=== PATIENT | female | born 1950 | race Caucasian/White ===

== ENCOUNTER → 2017-08-16 12:36 | Outpatient (CLI) | payer MEDICARE, OTHER, SELFPAY ==
--- NOTE | 2017-08-16 12:42 | RAD_ITS ---
STUDY: X-RAY - LEFT HAND REASON FOR EXAM: Female, 67 years old. Pain and swelling overlying the fourth and fifth metacarpals following an injury. TECHNIQUE: 3 view(s) of the hand. COMPARISON: None. FINDINGS: Normal radiocarpal articulation. Normal distal radioulnar joint. Normal visualized carpal bones. Normal carpal articulations Normal carpometacarpal articulation of the thumb. Normal second through fifth carpometacarpal joints. Normal metacarpi. Normal metacarpophalangeal joint of the thumb. Normal interphalangeal joint of the thumb. Normal proximal and distal phalanges of the thumb. Normal metacarpophalangeal joints of the second through fifth fingers. Normal proximal and distal interphalangeal joints of the second through fifth fingers. Normal phalanges of the second through fifth fingers. Diffuse soft tissue swelling. RAD/Hand Min 3 Views IMPRESSION: Diffuse soft tissue swelling. Electronically Signed: Bayron Payan MD at 13:43 EST Tel [phone], Service support ,
== END ==
PROVIDERS: Family Provider Internal Medicine; PCP Internal Medicine; Visit Provider Internal Medicine
DX: M79.642 Pain in left hand (principal)
CPT/HCPCS: 73130

== ENCOUNTER 2017-10-11 13:00 | Outpatient (RCR) | payer MEDICARE, OTHER, SELFPAY ==
--- NOTE | 2017-09-18 19:10 | HP.PTEVAL ---
Patient's Visit Information MANSOOR VERDUZCO is a 67 year old F referred to Physical Therapy by Rylee POZO with a diagnosis of . Date of Evaluation: 09/18/17 Physical Therapist: Martín Arteaga - Visit Plan Frequency: 2-3x /Week Duration: 4-6 Weeks Plan: Start with neutral spine core strengtheing, BLE strneghtening, complete balance assessment. Foam and dynamic balance activities. - Subjective Subjective: Pt. is here today for her initial evaluation with diagnosis of LBP and frequent falls. Pt. reports she has fallen 3 times in the last 2 months. Pt. reports she feels like she is catching her R foot causing her to fall. She reports increased difficulty when wearing a boot with a higher sole as well. She reports no injury with these recent falls. Pt. reports has increased pain in R side of lumbar spine, but does receive injections ~2 per year to reduce symptoms. Pt. had an injection in May. Pt. reports noticing R LE weakness, but does not appear to be worsening. Pt. is concerned about her falls as she feels it is getting worse and does not want to fall and break something.' Pt. reports having LBP for 40+ years and her symptoms have not changed mmuch recently, but is tripping more. Pt. denies N/T and no changes in B/B. Pt. is hopeful to increase stability and reduce LBP in order to get back to all recreational activities without issues. - Pain LBP Pain Intensity (Out of 10): 2 Pain Intensity Range: 0, 6 - Objective POSTURE: Pt. has slight FH posture, rounded shoulders, and reduced lumbar lordosis. Pt. normal iliac creast heights. Pt. has no lateral shift and normal wt. shifting between bilateral LEs. PALPATION: Pt. has mild increase in tenderness at R side lumbar erector spinea. Pt. has no pain at SI region and no L sided pain. NEUROLOGICAL: Pt. has normal sensation to light and sharp touch throughout bilateral LEs. Pt. has 2+ bilateral achilles and patellar DTR bilaterally. ROM: LUMBAR SPINE- flexion nil loss increase NW upon return, ext- mod loss increase NW, SB min loss bilat, rotation min loss bilat increase NW. Pt. has normal ankle mobility throughout, as well her knees. MMT: RLE- ankle- DF 4/5, PF 5/5; knee- ext 4+/5, flexion 4/5; hip- flexion 4/5, adb 4/5, ext 4/5. LLE- ankle 5/5 throughout; knee 5/5 throughout; hip- flexion 4+/5, adb 4+/5, ext 4+/5. GAIT: pt. ambulates with out AD, Pt. is able to maintain stability, decreased L foot clearance with gait. STAIRS: Pt. is able to negotiate with 1 HR with controlled motion with ascending and descending. - Special Tests L/S Slump test left side: Negative L/S Slump test right side: Negative L/S Left Straight Leg Raise: Negative L/S Right Straight Leg Raise: Negative Lumbar Standing: Flexion - Mechanical Response: No effect Lumbar Standing: Flexion - Symptoms During Testing: Increases Lumbar Standing: Flexion - Symptoms After Testing: No worse Lumbar Standing: Extension - Mechanical Response: No effect Lumbar Standing: Extension - Symptoms During Testing: Increases Lumbar Standing: Extension - Symptoms After Testing: Worse Lumbar Standing: Right Side Glides - Mechanical Response: No effect Lumbar Standing: Right Side [place] - Symptoms During Testing: No effect Lumbar Standing: Right Side [place] - Symptoms After Testing: No effect Lumbar Standing: Left Side [place] - Mechanical Response: No effect Lumbar Standing: Left Side [place] - Symptoms During Testing: No effect Lumbar Standing: Left Side [place] - Symptoms After Testing: No effect - Balance Scores Functional Gait Assessment Score: 20 % Disability: 33.3400 - Goals Goal 1:: Pt. to be I with HEP. Goal Time Frame: 4-6 Weeks Goal 2:: Pt. to have increased RLE strength and core strength to reduce stress on lumbar spine with all functional mobility. Goal Time Frame: 4-6 Weeks Goal 3:: Pt. to have a balance neurocom assessment completed. Goal Time Frame: 2 Weeks Goal 4:: Pt. to have increased FGA to 25/30 indicating reduced riskf or future falls. Goal 5:: Pt. to report 0-2/10 pain in R side of lumbar spine with all functional mobility. Goal Time Frame: 4-6 Weeks - Rehabilitation Potential Rehabilitation Potential: Good - Anticipated Interventions Patient/Client Instruction: Educate patient on: Condition, Plan of Care, Risk Factors, Benefits of Fitness Program For the Purpose of:: To improve health and function, To foster healthy habits, To improve decision making, To facilitate caregiver knowledge, To improve self management, To prevent re-injury, To improve ability to perform tasks related to life management, To improve tolerance to ADL's Therapeutic Exercise to Include: Strength training, Power training, Endurance training, Balance training, Body mechanics, Postural training, Gait and locomotor training, Neuromotor development, via Neurocom Balance Mas, Passive ROM, Active ROM, Dynamic Lumbar Stabilization For the Purpose of:: To decrease pain, To increase ROM, To improve nutrient delivery to tissue, To increase oxygenation perfusion, To improve muscle performance and motor function, To improve ability to perform ADL's, To increase tolerance to activity/condition/position, To improve performance and independence with ADL's, To improve gait and locomotor functions, To improve health of tissue, To increase flexibility/ROM, To improve endurance, To improve balance, To improve safety with gait, To assume or resume ADL's Thank you for the opportunity to evaluate your patient. For Medicare and Medicare HMO plans, please review the plan of care and approve it. It will need to be FAXED BACK to us at [phone] for Medicare purposes. Please let me know if there are questions or concerns regarding this plan of care. Physician Signature: Date:
--- NOTE | 2017-09-23 13:53 | HP.PTCOM ---
PT Communication Note 09/23/[address] Rylee POZO, Thank you for the referral of Susanne Torres to our clinic. She was tested on our NeuroCom today and below are her test results. On the Sensory Organization Test the patients overall score was below normal. She had some trouble with her visual and vestibular inputs She was more ankle dominant than hip dominant. Her COG alignment was within normal ranges. Her overall reaction time was within the normal range on the Motor Control Test The patient had some trouble with weight shifting forward and to the Left At this point we will work with the pt on vestibular and visual inputs along with weight shifts fw and to the L. We will also work on core stability and LE strengthening. Sincerely, Tatiana Wagner Contact Information
--- NOTE | 2017-10-16 09:57 | HP.PTDCSUM ---
HP - PT D/C Summary It has been my pleasure to treat MANSOOR VERDUZCO under orders from DR.KFEARO Leslie for the diagnosis of for a total of 10 visit(s). Discharge Date: 10/11/17 Please see the following information for a summary of their discharge status. - Subjective Subjective: Pt. reports I am doing a lot better. Pt. reports being HEP compliant. Pt. reports being 95% better. Pt. reports no falls since starting PT. - Pain LBP Pain Intensity (Out of 10): 0 neck Pain Intensity (Out of 10): 0 - Objective Objective/Function: Pt. has improved FGA to 27/30 reduce risk for future falls. Pt. reports overall reduced low back and neck pain. Pt. has improved stability noted with all dynamic balance testing. Pt. had a TUG of 6.07sec without AD. She is neogitiating steps without HR wtih reciprocal patterns. Pt. is pleased with PT. She will be DC to HEP at this point intime. - Goals Goal 1:: Pt. to be I with HEP. Goal Progress: Goal Met Goal 2:: Pt. to have increased RLE strength and core strength to reduce stress on lumbar spine with all functional mobility. Goal Progress: Goal Met Goal 3:: Pt. to have a balance neurocom assessment completed. Goal Progress: Goal Met Goal 4:: Pt. to have increased FGA to 25/30 indicating reduced riskf or future falls. Goal Progress: Goal Met Goal 5:: Pt. to report 0-2/10 pain in R side of lumbar spine with all functional mobility. Goal Progress: Goal Met - Plan Plan: Pt. will be DC to HEP at this point in time. Pt. has progressed very well with PT. Pt. to focus on balance related exercises for HEP, pt. consents. - D/C Information Discharge Comments: Pt. will be DC from PT at this point in time. Pt. has progressed as expected. Pt. had iimproved FGA and no falls recently. Pt. has proper balance activites to progress at home. Pt. has overall increased stability. Pt. did have Neurocom testing completed that was able to help with focusing on target areas for balance. Pt. will be DC to physician at this point in time. If there are questions or concerns regarding this patient's physical therapy, please feel free to call me at [phone]. Thank you for the referral of this patient. Sincerely, Martín Arteaga
== END 2017-10-11 19:00 | disposition home or self-care (01) ==
LOC: PT 13:00
PROVIDERS: Family Provider Internal Medicine; PCP Internal Medicine; Visit Provider Internal Medicine
DX: M54.5 Low back pain (principal); R29.6 Repeated falls
CPT/HCPCS: 97110; 97162; 97530; 97750; G8978; G8980

== ENCOUNTER → 2018-01-08 07:10 | Outpatient (CLI) | payer MEDICARE, OTHER, SELFPAY ==
[2018-01-08 07:57] LABS: Hematocrit 41.6 % (37-47); Hemoglobin 13.2 g/dl (12.0-15.0); Mean Corp Hgb Conc 31.7 g/gl (32-36); Mean Corpuscular Hgb 29.2 pg (27.0-32.0); Mean Platelet Vol. 9.5 fl (6.2-12.0); Platelet Count 237 K/mm3 (150-450); RBC Distribution Width CV 13.2 % (11.6-14.6); RBC Distribution Width SD 44.1 fl (35.1-43.9); Red Blood Count 4.52 M/mm3 (4.2-5.4); White Blood Count 4.3 K/mm3 (4.4-11.0)
[2018-01-08 07:58] LABS: Scan Indicated on CBC? Y/N NO
[2018-01-08 08:25] LABS: Microalbumin,Random Urine 5.3 mg/L (NO RANGE EST.); Microalbumin:Creatinine Ratio 5.6 mg/g CRE (<30 mg/g CRE)
[2018-01-08 08:36] LABS: PTHIN 78.4 pg/mL (18.4-80.1); Vitamin D,25 Hydroxy 34.7 ng/mL (29.95-100.01)
[2018-01-08 08:39] LABS: Albumin, Serum 3.7 g/dL (3.2-5.0); BUN 21 mg/dL (7-18); BUN/Creat Ratio 23.1 RATIO (10-20); Calcium,Total 8.7 mg/dL (8.5-10.1); Chloride 107 mmol/L (98-107); Creatinine, Serum 0.91 mg/dL (0.55-1.02); EST Glomerular Filtration Rate 65 mL/min (>60); Est Glom Filt Rate - Afr Amer 79 mL/min (>60); Glucose 97 mg/dL (74-106); Magnesium 2.3 mg/dL (1.6-2.6); Phosphorus 3.1 mg/dL (2.5-4.9); Potassium 4.3 mmol/L (3.5-5.1); Sodium Level 144 mmol/L (136-145)
== END ==
PROVIDERS: Family Provider Internal Medicine; PCP Internal Medicine; Visit Provider Internal Medicine Nephrology
DX: N18.3 Chronic kidney disease, stage 3 (moderate) (principal); E55.9 Vitamin D deficiency, unspecified; Z13.0 Encounter for screening for diseases of the blood and blood-forming organs and certain disorders involving the immune mechanism
CPT/HCPCS: 36415; 80069; 82043; 82306; 82570; 83735; 83970; 85027

== ENCOUNTER → 2018-01-17 10:26 | Outpatient (CLI) | payer MEDICARE, OTHER, SELFPAY ==
[2018-01-17 11:16] LABS: Hematocrit 41.6 % (37-47); Hemoglobin 13.1 g/dl (12.0-15.0); Mean Corp Hgb Conc 31.5 g/gl (32-36); Mean Platelet Vol. 9.8 fl (6.2-12.0); Platelet Count 258 K/mm3 (150-450); RBC Distribution Width CV 13.3 % (11.6-14.6); RBC Distribution Width SD 44.4 fl (35.1-43.9); Red Blood Count 4.52 M/mm3 (4.2-5.4)
[2018-01-17 11:17] LABS: Scan Indicated on CBC? Y/N NO
[2018-01-20 15:30] LABS: Endomysial Antibody IgA Negative (Negative)
[2018-01-21 10:21] LABS: Thyroglobulin Antibody 1.1 IU/mL (0.0-0.9)
== END ==
PROVIDERS: Family Provider Internal Medicine; PCP Internal Medicine; Visit Provider Dermatology
DX: K90.0 Celiac disease (principal); L29.8 Other pruritus
CPT/HCPCS: 36415; 85027; 86255; 86800

== ENCOUNTER → 2018-02-04 07:38 | Outpatient (CLI) | payer MEDICARE, OTHER, SELFPAY ==
--- NOTE | 2018-02-04 07:54 | US_ITS ---
STUDY: THYROID ULTRASOUND REASON FOR EXAM: Female, 68 years old. History of thyroid nodules. Dysphagia. TECHNIQUE: Ultrasound evaluation of the thyroid was performed with real-time and static fairchild-scale imaging. COMPARISON: Comparison is made with prior study dated January 03, 2017. FINDINGS: RIGHT LOBE: The right lobe of the thyroid gland measures 4.5 cm x 2.2 cm x 1.3 cm. There is a homogeneous echotexture. 3 subcentimeters nodules are once again seen. The largest measures 6 mm x 4 mm x 3 mm. These are hypoechoic and solid nodules. LEFT LOBE: The left lobe of the thyroid gland measures 4.6 cm x 1.9 cm x 1.2 cm. There is a homogeneous echotexture. There is a 1.3 cm x 1 cm x 0.7 cm hypoechoic solid nodule in the midportion of the left lobe of the thyroid. This is unchanged as well. ISTHMUS: The isthmus measures 3 mm. The regional lymph nodes are normal. US/Thyroid IMPRESSION: Bilateral thyroid nodules larger in the left lobe. There has been essentially no change. Electronically Signed: Bayron Payan MD at 10:35 EDT Tel [phone], Service support ,
== END ==
PROVIDERS: Family Provider Internal Medicine; PCP Internal Medicine; Visit Provider Dermatology
DX: E04.1 Nontoxic single thyroid nodule (principal); K90.0 Celiac disease; L29.8 Other pruritus
CPT/HCPCS: 76536

== ENCOUNTER → 2018-02-13 12:20 | Outpatient (CLI) | payer MEDICARE, OTHER, SELFPAY ==
--- NOTE | 2018-02-13 12:23 | RAD_ITS ---
STUDY: X-RAY - RIGHT SHOULDER REASON FOR EXAM: Female, 68 years old. Persistent pain x3 weeks TECHNIQUE: Or view(s) of the shoulder. COMPARISON: None. FINDINGS: Normal glenohumeral articulation. There is degenerative arthrosis of the acromioclavicular joint without inferior osseous spur formation. Normal acromion. Normal humeral head and visualized proximal humerus. The soft tissue structures are unremarkable. Normal visualized pulmonary apex. RAD/Shoulder min 2 Views IMPRESSION: Mild acromioclavicular joint arthrosis, no demonstrated fracture, or suspicious osseous lesion. Electronically Signed: Luis Eduardo Oliveira MD at 12:49 EDT , Service support ,
== END ==
PROVIDERS: Family Provider Internal Medicine; PCP Internal Medicine; Visit Provider Internal Medicine
DX: M25.511 Pain in right shoulder (principal)
CPT/HCPCS: 73030

== ENCOUNTER 2018-03-19 10:30 | Outpatient (RCR) | payer MEDICARE, OTHER, SELFPAY ==
--- NOTE | 2018-02-17 08:18 | HP.PTEVAL_ITS ---
Patient's Visit Information MANSOOR VERDUZCO is a 68 year old F referred to Physical Therapy by Rylee Bales with a diagnosis of R shouldr pain. Date of Evaluation: 02/17/18 Physical Therapist: Mitch Leonard DPT, [place] - Visit Plan Frequency: 3x /Week Duration: 4-6 Weeks Plan: 3x/week for 2-4... 1. Activitiy modification(ensure not exacerbating). 2. US nonthermal R supra. 3. Gentle mobs and ROM to R UE, progress to strengthen of postural and RC muscles to tolerance. pec stretch. 4. ice as needed. 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 That was 6 weeks ago and it has hurt ever since intermittently with extending it at night with sleep, pulling pants up, WB through R UE. Comfortable for the most part at rest. Pain is in the R armpit. Xrays showed some OA. This is a new problem. Wakes her up at night if she sleeps with R UE under pillow. Does nto work. Activities are limtied in that she feels it getting dressed andcan only weed for so long. - Pain R shoulder Pain Intensity (Out of 10): 0 Pain Intensity Range: 0, 5 - Objective c/s AROM WFL and full adn painfree. Full AROM B shoulders but R painful above 130 flex adn abd. And with IR. + R alicia Domenic and + R neer. Tender to palpation over R supra and subscap max. - ext rotation lag test, - drop arm. reflexes 2/3 bi and tri. Sensation UE WNL to gross light touch. Strength 4/5 R UE but pain with flex, abd, empty can, ext rotation, IR, and slight with biceps. - Goals Goal 1:: Lift arm overhead without pain. Full AROM elevation adn rotation Goal Time Frame: 4-6 Weeks Goal 2:: Patient report pain 1/10 at worst adn only with LLA movements, 90% better overall. Goal Time Frame: 4-6 Weeks Goal 3:: Patient I in appropriate strength and postural ex to minimize chance of recurrence. Goal Time Frame: 4-6 Weeks Goal 4:: Sleep without waking due to pain. Goal Time Frame: 2-4 Weeks - Rehabilitation Potential Physical Therapy Diagnosis: R shouldr pain, impingement tendonitis. Rehabilitation Potential: Good - Anticipated Interventions Patient/Client Instruction: Educate patient on: Condition, Plan of Care For the Purpose of:: To decrease pain, To decrease swelling/inflammation, To increase ROM, To improve nutrient delivery to tissue Therapeutic Exercise to Include: Strength training, Postural training, Passive ROM, Active ROM, Scapular Strength/Stabilization For the Purpose of:: To decrease pain, To decrease swelling/inflammation, To increase ROM, To improve nutrient delivery to tissue, To improve ability of physical actions for home/community/work/leisure Manual Therapy Techniques to Include: Mobilization For the Purpose of:: To decrease pain Cryotherapy (ice pack, ice massage): Yes Ultrasound (thermal/non thermal): Yes - nonthermal to supra tendon. For the Purpose of:: To decrease pain, To decrease swelling/inflammation Thank you for the opportunity to evaluate your patient. For Medicare and Medicare HMO plans, please review the plan of care and approve it. It will need to be FAXED BACK to us at [phone] for Medicare purposes. Please let me know if there are questions or concerns regarding this plan of care. Physician Signature: Date:
--- NOTE | 2018-03-03 10:52 | HP.PTREVAL_ITS ---
Rylee Bales, It has been my pleasure to treat MANSOOR VERDUZCO over the last 7 visits for R shouldr pain. Please see the progress note below for an update on the physical therapy plan of care! Subjective: Out of the blue while I was sitting at latter day my shldr just starting hurting worse. Reports the pain to be located in the front and under the shldr joint. Objective/Function: Review of postural maintainence so as to not exacerbate symptoms while sitting at latter day. Pt states, I guess I wasn't really paying attention to how I was sitting. Minimal progression today in reps of current exc, however able to tolerate newly added shldr flexion and ABD exc with wts against gravity. While working on kinesis, pt tripped on lower portion of machine and fell FWDs onto L hand and knees. States she was more embarrassed than painful. Minimal c/o's of L stoved wrist. Pt denied need to go to urgent care or ED. Instructed to do so if symptoms worsen. Instructed to ice if feeling swollen - pt agreeable. QUANTROS filled out. Seeing supervising PT for last f/u appt after today's appt. Plan Plan: 3x/week for 2-4... 1. Activitiy modification(ensure not exacerbating). 2. US nonthermal R supra. 3. Gentle mobs and ROM to R UE, progress to strengthen of postural and RC muscles to tolerance. pec stretch. 4. ice as needed. Goals Goal 1:: Lift arm overhead without pain. Full AROM elevation adn rotation Goal Time Frame: 4-6 Weeks Goal Progress: 3/10, better Goal 2:: Patient report pain 1/10 at worst adn only with LLA movements, 90% better overall. Goal Time Frame: 4-6 Weeks Goal Progress: Progressing Goal 3:: Patient I in appropriate strength and postural ex to minimize chance of recurrence. Goal Time Frame: 4-6 Weeks Goal Progress: Progressing Goal 4:: Sleep without waking due to pain. Goal Time Frame: 2-4 Weeks Goal Progress: Goal Met Anticipated Interventions Patient/Client Instruction: Educate patient on: Condition, Plan of Care For the Purpose of:: To decrease pain, To decrease swelling/inflammation, To increase ROM, To improve nutrient delivery to tissue Therapeutic Exercise to Include: Strength training, Postural training, Passive ROM, Active ROM, Scapular Strength/Stabilization For the Purpose of:: To decrease pain, To decrease swelling/inflammation, To increase ROM, To improve nutrient delivery to tissue, To improve ability of physical actions for home/community/work/leisure Manual Therapy Techniques to Include: Mobilization For the Purpose of:: To decrease pain Cryotherapy (ice pack, ice massage): Yes Ultrasound (thermal/non thermal): Yes - nonthermal to supra tendon. For the Purpose of:: To decrease pain, To decrease swelling/inflammation Please do not hesitate to contact me at [phone] by phone or Fax: if you have questions or concerns regarding this new plan of care! Sincerely, Mitch Leonard, DPT, OC
--- NOTE | 2018-03-19 11:15 | HP.PTDCSUM ---
HP - PT D/C Summary It has been my pleasure to treat MANSOOR VERDUZCO under orders from Rylee Bales, for the diagnosis of R shouldr pain for a total of 13 visit(s). Discharge Date: 03/19/18 Please see the following information for a summary of their discharge status. - Subjective Subjective: Lot less pain. Still gets some to 2/10 with sleeping position, or reaching behind. Comfortable at rest. Strengthening at home with band, will also do machines as instructed at [facility]. 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 - Pain R shoulder Pain Intensity (Out of 10): 2 - Overall Improvement % Improvement: 90 - Objective Objective/Function: Full aROM but pain end of flex adn abd today, not IR or ER. Strength is 4+/5 with some pain abd and empty can, and slight feeling with ext rotation. OVERALL MUCH BETTER AND VERY FUNCTIONAL, WILL CONTINUE VIA HEP. - Goals Goal 1:: Lift arm overhead without pain. Full AROM elevation adn rotation Goal Progress: Progressing Goal 2:: Patient report pain 1/10 at worst adn only with LLA movements, 90% better overall. Goal Progress: Goal Met Goal 3:: Patient I in appropriate strength and postural ex to minimize chance of recurrence. Goal Progress: Goal Met Goal 4:: Sleep without waking due to pain. Goal Progress: Goal Met - Plan Plan: D/C - D/C Information Discharge Comments: Pt doing very well and will continue with acitvity modification and HEP of strength adn ROM. Will contact doctor if pain worsens again. She did have injection about two weeks agoa and will f/u with Dr. Sweeney. If there are questions or concerns regarding this patient's physical therapy, please feel free to call me at [phone]. Thank you for the referral of this patient. Sincerely, Mitch Leonard, DPT, OC
== END 2018-03-19 19:00 | disposition home or self-care (01) ==
LOC: PT 10:30
PROVIDERS: Family Provider Internal Medicine; PCP Internal Medicine; Visit Provider Internal Medicine
DX: M25.511 Pain in right shoulder (principal)
CPT/HCPCS: 97035; 97110; 97140; 97162; 97530

== ENCOUNTER → 2018-07-07 11:36 | Outpatient (CLI) | payer MEDICARE, OTHER, SELFPAY ==
--- NOTE | 2018-07-07 11:42 | RAD_ITS ---
STUDY: X-RAY CHEST REASON FOR EXAM: Female, 68 years old. Coughing at night TECHNIQUE: PA and lateral views of the chest. COMPARISON: 06/13/2015 FINDINGS: The lungs are clear and expanded. There is no demonstrated pleural abnormality. Normal size heart. Normal mediastinum and robe. Normal visualized pulmonary arteries. Normal visualized aortic arch and descending thoracic aorta. There is a dextroscoliosis of the thoracic spine. Normal visualized ribs, clavicles, and shoulders. There is no demonstrated abnormality of the visualized soft tissue structures of the upper abdomen. RAD/Chest PA and Lateral IMPRESSION: No acute pulmonary process Electronically Signed: Luis Eduardo Oliveira MD at 16:49 EST , Service support ,
--- OUTSIDE RECORDS SUMMARY | 2018-10-09 01:31 | XMS RPT_ITS | Continuity of Care Document ---
:1950 Author Organization [facility] Address [address] [place] [address] Phone Care Team Providers Name Role Phone Rylee Bales DO Unavailable Jonas KRISHNAN, Fadumo Porter Unavailable Dr. Joaquim Hough Unavailable Deuce Soto Unavailable Herb KRISHNAN, Jj Phillips Unavailable Merari Lam Unavailable [facility], [facility] Unavailable Binta Cruz Unavailable Unavailable Makenzie Armenta Unavailable Unavailable ISHMAEL Arana Unavailable Unavailable Long Alaina QUIÑONES Unavailable Unavailable MELISSA Carreno Unavailable Unavailable Unavailable Unavailable Problems Name Dates Details Abdominal pain (R10.9, 789.00) Status: Active Abdominal pain, colicky (R10.83, 789.7) Status: Active Abnormal CBC (R79.89, 790.6) Comments: drawn by [place] but out of town, now with fatigue, malaise and flu like symptoms abnormal CBC will rule out flu check spep, upep as low WBC and elevated eos, baso, lymph, low gap rule out myeloma Status: Active Abnormal finding of blood chemistry, unspecified (R79.9, 790.6) Comments: normal now lost weight ? help Status: Active Abnormal WBC count (D72.9, 288.9) Status: Active Accidental fall, initial encounter (W19.XXXA, E888.9) Status: Active Acute pain of right shoulder (M25.511, 719.41) Status: Active Annual Medicare Phyiscal WITHOUT abnormal findings (Renamed from Encounter for general adult medical examination without abnormal findings) (Z00.00, V70.9) Status: Active Annual Medicare Phyiscal WITHOUT abnormal findings (Renamed from Encounter for general adult medical examination without abnormal findings) (Z00.00, V70.9) Status: Active Anxiety (F41.9, 300.00) Status: Active BMI 31.0-31.9,adult (Z68.31, V85.31) Status: Active Bulging of cervical intervertebral disc (M50.20, 722.0) Status: Active Cerumen impaction (H61.20, 380.4) Status: Active Change in bowel habit (R19.4, 787.99) Status: Active Constipation, chronic (K59.09, 564.00) Status: Active Constipation, chronic (K59.09, 564.00) Status: Active Constipation, unspecified (K59.00, 564.00) Comments: better Status: Active Cough (R05, 786.2) Status: Active Degenerative disc disease (722.6) Comments: on chronic pain meds stableright no see ultram. wants to get off fenytl now on 25 mg...will try to wean off. Status: Active Degenerative lumbar disc (M51.36, 722.52) Status: Active Deliveries (Parity) Comments: 2 Status: Active Depressive disorder (F32.9, 311) Comments: stable now Status: Active Diaphragmatic hernia without obstruction (K44.9, 553.3) Status: Active DISEASES OF ESOPHAGUS, DYSKINESIA OF ESOPHAGUS (530.5) Status: Active Diverticulosis of large intestine without perforation or abscess without bleeding (K57.30, 562.10) Status: Active Dizziness (R42, 780.4) Comments: vertigo-- do nasonex, decog, sumit Status: Active Dyspareunia, female (N94.10, 625.0) Status: Active Dysuria (Renamed from Difficult or painful urination) (R30.0, 788.1) Status: Active Encounter for screening for malignant neoplasm of colon (Renamed from Special screening for malignant neoplasms, colon) (Z12.11, V76.51) Comments: gianluca said no need last one <5yrs ago Status: Active Encounter for screening mammogram for breast cancer (Renamed from Encounter for screening mammogram for malignant neoplasm of breast) (Z12.31, V76.12) Status: Active Eustachian tube dysfunction, bilateral (H69.83, 381.81) Status: Active Family history of thyroid cancer (Z80.8, V16.8) Status: Active Fatigue (R53.83, 780.79) Comments: most related to chronic pain Status: Active Fatigue, unspecified type (R53.83, 780.79) Status: Active Fibromyalgia (M79.7, 729.1) Comments: wax and wane - currently stable Status: Active Flu-like symptoms (R68.89, 780.99) Comments: think some kind of autoimmune flare Status: Active Frequent falls (R29.6, V15.88) Status: Active Frequent UTI (N39.0, 599.0) Status: Active GERD (gastroesophageal reflux disease) (K21.9, 530.81) Status: Active H/O: hysterectomy (Z90.710, V88.01) Comments: at age 37 and on hrt but not for past 10yrs Status: Active Hand pain, left (M79.642, 729.5) Status: Active Impacted cerumen of right ear (H61.21, 380.4) Status: Active Inflammatory polyarthritis (M06.4, 714.9) Comments: see Dr. deutsch. 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 from Lupus. get eye exam and remind. doing better on plaquenil.mouth sores, elevated lfts, joint pain, low wbs, no rash Status: Active Irritable bowel syndrome (K58.9, 564.1) Status: Active LOW BACK PAIN (Renamed from LBP (low back pain)) (M54.5, 724.2) Status: Active Low HDL (under 40) (E78.6, 272.5) Status: Active Lupus (M32.9, 710.0) Comments: juan c Status: Active Menopause syndrome (N95.1, 627.2) Comments: need estrogen cream but now insurance not want to cover she mitalicheck. Status: Active Migraine (G43.909, 346.80) Comments: occassional use amerge Status: Active Mixed hyperlipidemia (E78.2, 272.2) Status: Active Nausea (R11.0, 787.02) Status: Active Need for prophylactic vaccination and inoculation against influenza (Z23, V04.81) Status: Active Need for prophylactic vaccination and inoculation against influenza (Renamed from Need for immunization against influenza) (Z23, V04.81) Status: Active Non-intractable vomiting without nausea, unspecified vomiting type (R11.11, 787.03) Status: Active Nonsmoker (Z78.9, V49.89) Status: Active Nonsmoker (Z78.9, V49.89) Status: Active Obesity (E66.9, 278.00) Comments: TOPPS working well. weight self daily and if get off by a pound watch thtat day Status: Active Osteopenia (M85.80, 733.90) Comments: 12-12 bd, 12-14 done Status: Active Osteoporosis, senile (M81.0, 733.01) Status: Active Pain in unspecified joint (M25.50, 719.40) Status: Active Pneumococcal vaccination given (Z23, V06.6) Status: Active Postmenopausal (Renamed from Postmenopausal status) (Z78.0, V49.81) Comments: dexa up todate <2yrs ago Status: Active postmenopausal without estrogen Status: Active Post-nasal drainage (R09.82, 473.9) Status: Active Pregnancies () Comments: 2 Status: Active Pre-operative examination (Z01.818, V72.84) Comments: requested by Dr Lee Status: Active Prophylactic vaccination against Streptococcus pneumoniae (Z23, V03.82) Status: Active Rash (R21, 782.1) Status: Active SCREENING FOR BREAST CANCER (Z12.39, V76.10) Status: Active Shingles (B02.9, 053.9) Status: Active Thyroid nodule (E04.1, 241.0) Status: Active Thyromegaly (E01.0, 240.9) Status: Active Unspecified Diagnosis Status: Active Unspecified Diagnosis Status: Active Unspecified Diagnosis Status: Active Unspecified Diagnosis Status: Active Upper respiratory infection, viral (J06.9, 465.9) Status: Active Urinary incontinence in female (R32, 788.30) Status: Active UTI (lower urinary tract infection) (N39.0, 599.0) Status: Active Vitamin D deficiency, unspecified (E55.9, 268.9) Status: Active WWV V73.21 Comments: getting mammo and bd done has order Status: Active Medications Name Dates Details ALIGN (Oral Capsule) Active qd Amerge 2.5 MG Oral Tablet 1 (one) Tablet prn for 30 days Quantity: 30 {Tablet} Refills: 1 Ordered:31-Jan-2018 Hiro Bales DO, DO, Kathleen Start : 31-Jan-2018 Active Amitiza 24 MCG Oral Capsule 1 (one) Capsule twice daily for 0 days Quantity: 180 {Capsule} Refills: 3 Ordered:14-Apr-2018 Hiro Bales DO, DO, Kathleen Start : 14-Apr-2018 Active Comments:Idiopathic constipation BuPROPion HCl ER (SR) 150 MG Oral Tablet Extended Release 12 Hour 1 (one) Tablet ER 12HR bid for 0 days Quantity: 180 {Tablet} Refills: 3 Ordered:19-Jun-2017 Hiro Bales DO, DO, Kathleen Start : 19-Jun-2017 Active BuPROPion HCl ER (SR) 150 MG Oral Tablet Extended Release 12 Hour 1 (one) Tablet ER 12HR bid for 90 days Quantity: 180 {Tablet} Refills: 3 Ordered:19-Jun-2017 Hiro Bales DO, DO, Kathleen Start : 19-Jun-2017 Active CALCIUM, 500MG (Oral Tablet) qd (500 MG) Active CeleXA 10 MG Oral Tablet 1 Tablet qd for 0 days Quantity: 30 {Tablet} Refills: 3 Ordered:23-Dec-2017 Hiro Bales DO, DO, Kathleen Start : 23-Dec-2017 Active CeleXA 10 MG Oral Tablet 1 (one) Tablet qd for 30 days Quantity: 30 {Tablet} Refills: 2 Ordered:15-Apr-2018 Hiro Bales DO, DO, Kathleen Start : 15-Apr-2018 Active FiberCon 625 MG Oral Tablet 4 qd (625 MG) Active Flunisolide 25 MCG/ACT (0.025%) Nasal Solution 1 (one) [place] each nostril qd for 0 days Quantity: 1 {Dover} Refills: 2 Ordered:12-Feb-2018 MELISSA Carreno Start : 12-Feb-2018 Active Lasix 20 MG Oral Tablet 1 (one) Tablet qd prn for 0 days Quantity: 30 {Tablet} Refills: 0 Ordered:31-Mar-2018 Hiro Bales DO, DO, Kathleen Start : 31-Mar-2018 Active Magnesium Citrate 1.745 GM/30ML Oral Solution 1 (one) Milliliter Milliliter daily for 0 days Quantity: 1 {Milliliter} Refills: 0 Ordered:16-Aug-2017 Hiro Bales DO, DO, Kathleen Start : 02-Jul-2017 Active Meloxicam 15 MG Oral Tablet 1 (one) Tablet qd with food for 0 days Quantity: 20 {Tablet} Refills: 0 Ordered:12-Feb-2018 Hiro Bales DO, DO, Kathleen Start : 12-Feb-2018 Active TraZODone HCl 100 MG Oral Tablet 1 (one) Tablet q hs, prn for 0 days Quantity: 90 {Tablet} Refills: 3 Ordered:08-Apr-2018 Hiro Bales DO, DO, Kathleen Start : 08-Apr-2018 Active VITAMIN D, 2000UNIT (Oral Capsule) qd (2000 UNIT) Active ACIDOPHILUS (Oral Tablet) 2 tabs qd for 0 days Refills: 0 Ordered:06-Feb-2011 Pat Adams LPN End : 06-Feb-2011 Inactive ALEVE, 220MG (Oral Tablet) 1 Tablet q8 hr for 0 days Quantity: 30 {Tablet} Refills: 0 Ordered:17-Dec-2012 Trish Shelley LPN Start : 06-Feb-2011 End : 17-Dec-2012 Inactive ALIGN (Oral Capsule) 1 (one) Capsule qd for 30 days Quantity: 30 {Capsule} Refills: 0 Ordered:30-Dec-2014 Manda Higginbotham MD Start : 16-Nov-2014 End : 16-Dec-2014 Inactive ALIGN, 4MG (Oral Capsule) 1 Capsule daily for 0 days Quantity: 30 {Capsule} Refills: 0 Ordered:14-May-2013 MELISSA Carreno Start : 09-Dec-2012 End : 14-May-2013 Inactive AMBIEN CR, 6.25MG (Oral Tablet Extended Release) 1 (one) Tablet ER qd prn for 0 days Quantity: 30 {Tablet_ER} Refills: 1 Ordered:14-Mar-2009 Aruna Barajas Start : 14-Mar-2009 End : 23-Mar-2009 Inactive AMITRIPTYLINE HCL, 10MG (Oral Tablet) 1 Tablet q hs for 0 days Quantity: 30 {Tablet} Refills: 0 Ordered:14-Mar-2009 MELISSA Carreno Start : 14-Mar-2009 End : 15-Apr-2009 Inactive AMRIX, 15MG (Oral Capsule Extended Release 24 Hour) 1 (one) Capsule ER 24HR qhs prn for 0 days Quantity: 30 {Capsule_ER_24HR} Refills: 0 Ordered:28-Jun-2010 Pat Adams LPN Start : 14-Jun-2009 End : 28-Jun-2010 Inactive Comments:watch for sedation ASPIRIN LOW DOSE, 81MG (Oral Tablet) 1 tab qd for 0 days Refills: 0 Ordered:03-Mar-2008 Zabrina Farmer End : 03-Mar-2008 Inactive ASPIRIN LOW DOSE, 81MG (Oral Tablet) 1 tab qd (81 MG) End : 17-Nov-2010 Inactive ASTELIN, 137MCG/SPRAY (Nasal Solution) 1 spray bid for 0 days Refills: 0 Ordered:06-Feb-2011 Pat Adams LPN End : 06-Feb-2011 Inactive AUGMENTIN, 875-125MG (Oral Tablet) 1 Tablet bid for 0 days Quantity: 24 {Tablet} Refills: 0 Ordered:03-Jan-2011 Dasia Arana LPN Start : 28-Jun-2010 End : 03-Jan-2011 Inactive BD Pen Needle Mini U/F 31G X 5 MM Miscellaneous 1 (one) Misc Misc qd for forteo pen for 90 days Quantity: 90 {Each} Refills: 0 Ordered:12-Sep-2017 Dasia Oliver Start : 20-Aug-2014 End : 12-Sep-2017 Inactive BIAXIN XL, 500MG (Oral Tablet Extended Release 24 Hour) 2 (two) Tablet ER 24HR qd for 0 days Quantity: 20 {Tablet_ER_24HR} Refills: 0 Ordered:12-Oct-2008 Zabrina Famrer Start : 12-Oct-2008 End : 19-Nov-2008 Inactive Biotin qd Inactive BUPROPION HCL ER (XL), 300MG (Oral Tablet Extended Release 24 Hour) 1 (one) Tablet ER 24HR Tablet ER 24HR qd for 90 days Quantity: 90 {Tablet} Refills: 3 Ordered:23-Sep-2014 Francesca Crystal Start : 06-Jul-2014 End : 23-Sep-2014 Inactive BusPIRone HCl 30 MG Oral Tablet 1 tab Tablet q hs for 0 days Quantity: 90 {Tablet} Refills: 2 Ordered:27-Jun-2017 Dasia Arana LPN Start : 17-Jun-2017 End : 27-Jun-2017 Inactive BUSPIRONE HCL, 30MG (Oral Tablet) 1 tab Tablet q hs for 90 days Quantity: 90 {Tablet} Refills: 3 Ordered:06-Feb-2011 Pat Adams LPN Start : 25-Aug-2010 End : 06-Feb-2011 Inactive CIPRO, 250MG (Oral Tablet) 1 Tablet bid for 7 days Quantity: 14 {Tablet} Refills: 0 Ordered:30-Mar-2009 Ilsa SELLERS Marlen Phillips Start : 30-Mar-2009 End : 14-Apr-2009 Inactive CIPRO, 500MG (Oral Tablet) 1 (one) Tablet bid for 7 days Quantity: 14 {Tablet} Refills: 0 Ordered:14-Jun-2014 Ilsa SELLERS Marlen Phillips Start : 14-Jun-2014 End : 21-Jun-2014 Inactive COLACE, 100MG (Oral Capsule) 2 qd (100 MG) Inactive COLACE, 50MG (Oral Capsule) 1 cap prn for 0 days Refills: 0 Ordered:02-Jul-2008 Dasia Arana LPN End : 02-Jul-2008 Inactive CYMBALTA, 30MG (Oral Capsule Delayed Release Particles) [address] Part QD for 0 days Refills: 0 Ordered:06-Oct-2008 Zabrina Farmer Start : 11-Jun-2008 End : 06-Oct-2008 Inactive DIFLUCAN, 150MG (Oral Tablet) uad Tablet one today and if not resolved can repeat in 2 days for 0 days Quantity: 2 {Tablet} Refills: 1 Ordered:09-Feb-2014 MELISSA Carreno Start : 19-Nov-2013 End : 09-Feb-2014 Inactive Estrace 0.1 MG/GM Vaginal Cream 1 (one) Cream Cream 1 gm PV twice weekly for 90 days Refills: 3 Ordered:27-Jun-2017 Dasia Arana LPN Start : 15-Mar-2015 End : 27-Jun-2017 Inactive Estrace 0.1 MG/GM Vaginal Cream 1 (one) Cream Cream 1 gm PV twice weekly for 30 days Quantity: 1 {Each} Refills: 0 Ordered:27-Jun-2017 Dasia Arana LPN Start : 15-Mar-2015 End : 27-Jun-2017 Inactive FENTANYL, 25MCG/HR (Transdermal Patch 72 Hour) 1 patch Patch 72HR q 72 hrs for 30 days Refills: 0 Ordered:02-Aug-2015 Manda Higginbotham MD Start : 02-Aug-2015 End : 01-Sep-2015 Inactive FIORICET, 50-325-40MG (Oral Tablet) 2 tabs Tablet q 4-6 hrs,prn for camargo's for 0 days Quantity: 30 {Tablet} Refills: 0 Ordered:05-Mar-2008 Dasia Arana LPN Start : 05-Mar-2008 End : 02-Jul-2008 Inactive FLONASE, 50MCG/ACT (Nasal Suspension) 1 spray each nare QD for 0 days Refills: 0 Ordered:17-Dec-2012 Trish Shelley LPN Start : 28-Jun-2010 End : 17-Dec-2012 Inactive Fluconazole 150 MG Oral Tablet 1 (one) Tablet Tablet x1 and repeat every other day for 2 more doses for 0 days Quantity: 3 {Tablet} Refills: 0 Ordered:01-Mar-2016 Dasia Arana LPN Start : 12-May-2014 End : 01-Mar-2016 Inactive Hydroxychloroquine Sulfate 200 MG Oral Tablet 1 (one) Tablet bid for 0 days Quantity: 60 {Tablet} Refills: 0 Ordered:02-Jan-2017 Dasia Arana LPN Start : 06-Jul-2014 End : 02-Jan-2017 Inactive HYOMAX-SL, 0.125MG (Sublingual Tablet Sublingual) 1 (one) Tab Sublingual prn for 0 days Quantity: 30 {Tab_Sublingual} Refills: 3 Ordered:17-Dec-2012 Trish Shelley LPN Start : 10-Jun-2012 End : 17-Dec-2012 Inactive LEVAQUIN, 500MG (Oral Tablet) 1 Tablet qd for 7 days Quantity: 7 {Tablet} Refills: 0 Ordered:02-Jan-2013 Makenzie Armenta Start : 02-Jan-2013 End : 09-Jan-2013 Inactive LIBRAX, 2.5-5MG (Oral Capsule) 1 (one) Capsule bid prn abd pain for 0 days Quantity: 30 {Capsule} Refills: 0 Ordered:28-Jun-2010 Pat Adams LPN Start : 22-Aug-2009 End : 28-Jun-2010 Inactive LIDODERM, 5% (External Patch) 1 to 2 patches on 12hr, off 12hr for 0 days Refills: 0 Ordered:28-Jun-2010 Pat Adams LPN End : 28-Jun-2010 Inactive Comments:Dr. Carmina RUTHERFORD, 145 MCG (LINACLOTIDE) CAPSULES, 145 MCGMCG (Oral Capsule) (Free Text) 1 Capsule qd for 0 days Quantity: 60 {Capsule} Refills: 5 Ordered:27-Jun-2017 Dasia Arana LPN Start : 07-Mar-2017 End : 27-Jun-2017 Inactive MACROBID, 100MG (Oral Capsule) 1 cap qd for prevention of uti (100 MG) Inactive MELATONIN, 3MG (Oral Tablet) 1 tab q hs, prn for 0 days Refills: 0 Ordered:15-Apr-2009 MELISSA Carreno End : 15-Apr-2009 Inactive METRONIDAZOLE, 0.75% (External Gel) 1 (one) with vaginal applic Gel bid for 7 days Quantity: 14 {Applicator} Refills: 0 Ordered:07-Dec-2013 Hiro Bales DO, DO, Kathleen Start : 19-Nov-2013 End : 26-Nov-2013 Inactive MIRALAX (Oral Powder) 1 scoop qd Inactive MUCINEX, 600MG (Oral Tablet Extended Release 12 Hour) 1 for 0 days Refills: 0 Ordered:08-Sep-2008 Zabrina Farmer Start : 08-Sep-2008 End : 06-Oct-2008 Inactive MULTIVITAMIN (PO Tab) 1 tab qd for 0 days Refills: 0 Ordered:06-Oct-2008 Zabrina Farmer End : 06-Oct-2008 Inactive MULTIVITAMIN (PO Tab) 1 tab qd Inactive Nasonex 50 MCG/ACT Nasal Suspension 1 (one) [place] qd each nostril for 0 days Quantity: 1 {Container} Refills: 1 Ordered:12-Feb-2018 Manda Higginbotham MD Start : 12-Feb-2018 End : 12-Feb-2018 Inactive NIACIN FLUSH FREE, 500MG (Oral Capsule) 3 (three) Capsule q hs for 0 days Refills: 0 Ordered:06-Oct-2008 MELISSA Carreno Start : 06-Oct-2008 End : 15-Apr-2009 Inactive NIACIN FLUSH FREE, 500MG (Oral Capsule) 1 cap q hs (500 MG) Inactive NITROFURANTOIN MACROCRYSTAL, 100MG (Oral Capsule) 1 Capsule Daily for 30 days Refills: 0 Ordered:06-Mar-2010 Zabrina Farmer Start : 06-Mar-2010 End : 05-Apr-2010 Inactive NORVASC, 5MG (Oral Tablet) 1 (one) Tablet qd for 0 days Quantity: 90 {Tablet} Refills: 3 Ordered:27-Mar-2013 MELISSA Carreno Start : 09-Dec-2012 End : 27-Mar-2013 Inactive NULEV, 0.125MG (Oral Tablet Dispersible) 1 tab Tablet Disperse prn for 90 days Quantity: 90 {Tablet_Disperse} Refills: 1 Ordered:12-Sep-2010 Zabrina Farmer Start : 25-Aug-2010 End : 12-Sep-2010 Inactive Omeprazole 20 MG Oral Capsule Delayed Release [address] qd for 0 days Quantity: 90 {Capsule_DR} Refills: 3 Ordered:01-Mar-2016 Dasia Arana LPN Start : 15-Mar-2015 End : 01-Mar-2016 Inactive PredniSONE 10 MG Oral Tablet 1 (one) Tablet qd x 5 days prn for 0 days Quantity: 15 {Tablet} Refills: 0 Ordered:01-Mar-2016 Dasia Arana LPN Start : 06-Jul-2014 End : 01-Mar-2016 Inactive PredniSONE 20 MG Oral Tablet 1 (one) Tablet qd for 4 days Quantity: 4 {Tablet} Refills: 0 Ordered:06-Sep-2016 Dasia Arana LPN Start : 06-Sep-2016 End : 10-Sep-2016 Inactive PREDNISONE, 5MG (Oral Tablet) 1 Tablet qd for 0 days Refills: 0 Ordered:15-Apr-2009 MELISSA Carreno End : 15-Apr-2009 Inactive PREMARIN, 0.625MG (Oral Tablet) 1 Tablet QD for 0 days Quantity: 30 {Tablet} Refills: 3 Ordered:10-Dec-2008 MELISSA Carreno Start : 10-Dec-2008 End : 15-Apr-2009 Inactive PROMETHAZINE HCL, 25MG (Oral Tablet) 1 (one) Tablet q day prn for 0 days Quantity: 30 {Tablet} Refills: 0 Ordered:28-Jun-2010 Pat Adams LPN Start : 22-Aug-2009 End : 28-Jun-2010 Inactive PROVENTIL HFA, 108 (90 Base)MCG/ACT (Inhalation Aerosol Solution) Aerosol Soln 2 puffs bid for 0 days Quantity: 1 {Aerosol_Soln} Refills: 0 Ordered:14-Oct-2008 Zabrina Farmer Start : 14-Oct-2008 End : 19-Nov-2008 Inactive PYRIDIUM, 100MG (Oral Tablet) 1 (one) Tablet tid for 2 days Quantity: 6 {Tablet} Refills: 0 Ordered:14-Jun-2014 ValerieMarlen campbell CNP Start : 14-Jun-2014 End : 16-Jun-2014 Inactive TOPAMAX, 25MG (Oral Tablet) 1 (one) Tablet bid for 0 days Quantity: 180 {Tablet} Refills: 3 Ordered:28-Jun-2010 Pat Adams LPN Start : 14-Jun-2009 End : 28-Jun-2010 Inactive Ultram 50 MG Oral Tablet 1 (one) Tablet bid for 90 days Refills: 3 Ordered:01-Mar-2016 Dasia Arana LPN Start : 02-Aug-2015 End : 01-Mar-2016 Inactive Comments:Dr. Ortiz perscribes UNISOM SLEEPGELS, 50MG (Oral Capsule) 1 cap q hs, prn for 0 days Refills: 0 Ordered:19-Nov-2008 Zabrina Farmer End : 19-Nov-2008 Inactive VAGIFEM, 10MCG (Vaginal Tablet) 1 Tablet bid for 0 days Quantity: 24 {Tablet} Refills: 3 Ordered:06-Feb-2011 Pat Adams LPN Start : 17-Nov-2010 End : 06-Feb-2011 Inactive Valtrex 1 GM Oral Tablet 1 (one) Tablet tid for 7 days Quantity: 21 {Tablet} Refills: 0 Ordered:01-Jan-2018 Hiro Bales DO, DO, Kathleen Start : 01-Jan-2018 End : 08-Jan-2018 Inactive VITAMIN D3, 1000UNIT (Oral Capsule) 2 caps qd (1000 UNIT) Inactive VITAMIN D3, 2000UNIT (Oral Capsule) 1 cap daily (2000 UNIT) Inactive WELLBUTRIN, 100MG (Oral Tablet) 1 Tablet bid for 0 days Refills: 0 Ordered:19-Mar-2007 Zabrina Farmer Start : 19-Mar-2007 End : 19-Nov-2008 Inactive ZITHROMAX Z-KAMERON, 250MG (Oral Tablet) 1 Tablet TAd for 0 days Quantity: 1 {Package(s)} Refills: 0 Ordered:08-Sep-2008 Zabrina Farmer Start : 08-Sep-2008 End : 06-Oct-2008 Inactive Zofran 4 MG Oral Tablet 1 (one) Tablet Tablet q 8 hours prn for 0 days Quantity: 10 {Tablet} Refills: 0 Ordered:27-Jun-2017 Dasia Arana LPN Start : 30-Dec-2014 End : 27-Jun-2017 Inactive ZOLPIDEM TARTRATE, 10MG (Oral Tablet) 1 Tablet q hs for 90 days Quantity: 90 {Tablet} Refills: 3 Ordered:06-Feb-2011 Pat Adams LPN Start : 04-Jul-2010 End : 06-Feb-2011 Inactive MALLORY-D 12 HOUR, 60-120MG (Oral Tablet Extended Release 12 Hour) 1 Tablet ER 12HR q12h for 0 days Quantity: 20 {Tablet_ER_12HR} Refills: 0 Ordered:17-Nov-2010 Pat Adams LPN Start : 28-Jun-2010 End : 06-Feb-2011 Discontinued Comments:This order discontinued per [employer]. BONIVA, 150MG (Oral Tablet) 1 tab Tablet q month for 0 days Quantity: 3 {Tablet} Refills: 4 Ordered:13-Jun-2015 Tatiana Simental LPN Start : 06-Jul-2014 End : 13-Jun-2015 Discontinued BONIVA, 150MG (Oral Tablet) 1 tab Tablet q month for 0 days Quantity: 3 {Tablet} Refills: 4 Ordered:13-Jun-2015 Tatiana Simental LPN Start : 06-Jul-2014 End : 13-Jun-2015 Discontinued BUSPAR, 30MG (Oral Tablet) 1 (one) Tablet qhs / HS for 0 days Quantity: 90 {Tablet} Refills: 3 Ordered:06-Mar-2010 Zabrina Farmer Start : 06-Mar-2010 End : 25-Aug-2010 Discontinued Comments:This order discontinued per [employer]. CALCIUM 500 + D, [id number] (PO Tab) 2 tabs qd for 0 days Refills: 0 Ordered:27-Mar-2013 MELISSA Carreno End : 27-Mar-2013 Discontinued Comments:This order discontinued per [employer]. DIPHENHYDRAMINE HCL (SLEEP), 10MG/15ML (PO Liquid) 1 gelcap qhs,prn for 0 days Refills: 0 Ordered:22-Dec-2007 Myrna Olson End : 22-Dec-2007 Discontinued FORTEO, 600MCG/2.4ML (Subcutaneous Solution) uad Solution Solution 20 mcq daily SC for 90 days Refills: 3 Ordered:02-Aug-2015 Manda Higginbotham MD Start : 02-Aug-2015 End : 02-Aug-2015 Discontinued HYOMAX-FT, 0.125MG (Oral Tablet Dispersible) 1 (one) Tablet Disperse qd, prn for 90 days Quantity: 90 {Tablet_Disperse} Refills: 3 Ordered:04-Dec-2011 Trish Shelley LPN Start : 04-Dec-2011 End : 17-Dec-2012 Discontinued Comments:This order discontinued per [employer]. LACTULOSE, 10GM/15ML (Oral Solution) 60 ml Solution qd for 90 days Refills: 3 Ordered:09-Dec-2012 Iwona Rivera DO Start : 09-Dec-2012 End : 09-Dec-2012 Discontinued LEXAPRO, 10MG (Oral Tablet) 1 (one) Tablet qd for 0 days Quantity: 30 {Tablet} Refills: 3 Ordered:19-Mar-2007 Roxana Simons LPN Start : 19-Mar-2007 End : 03-Apr-2007 Discontinued MOBIC, 7.5MG (Oral Tablet) 1 (one) Tablet Twice daily for 0 days Refills: 0 Ordered:18-Nov-2006 Zabrina Farmer Start : 18-Nov-2006 End : 25-Aug-2007 Discontinued Comments:with food MYCELEX, 10MG (Mouth/Throat Madina) 1 Madina 5x daily for 0 days Quantity: 50 {Madina} Refills: 0 Ordered:04-Dec-2011 Zabrina Farmer Start : 04-Dec-2011 End : 04-Dec-2011 Discontinued NAPROSYN, 500MG (Oral Tablet) 1 tab bid for 0 days Refills: 0 Ordered:22-Dec-2007 Myrna Olson End : 22-Dec-2007 Discontinued NORVASC, 5MG (Oral Tablet) 1 Tablet daily for 0 days Quantity: 90 {Tablet} Refills: 1 Ordered:03-Jan-2011 Fast DO, Iwona A Start : 03-Jan-2011 End : 03-Jan-2011 Discontinued SKELAXIN, 800MG (Oral Tablet) 1 Tablet tid/prn for 0 days Refills: 0 Ordered:14-Jun-2009 Fast DO, Iwona A Start : 14-Jun-2009 End : 14-Jun-2009 Discontinued TRAMADOL HCL, 50MG (Oral Tablet) 1 bid, prn for 0 days Refills: 0 Ordered:25-Aug-2007 Zabrina Farmer End : 25-Aug-2007 Discontinued VAGIFEM, 25MCG (Vaginal Tablet) 1 tab Tablet bi-weekly for 90 days Quantity: 24 {Tablet} Refills: 3 Ordered:17-Nov-2010 DO, Iwona A Start : 17-Nov-2010 End : 17-Nov-2010 Discontinued VICODIN, 5-500MG (Oral Tablet) 1 tid/prn for 0 days Refills: 0 Ordered:17-Dec-2012 Trish Shelley LPN End : 17-Dec-2012 Discontinued Comments:This order discontinued per [employer]. VITAMIN D (ERGOCALCIFEROL), 06308OGRJ (Oral Capsule) 1 (one) Capsule Capsule once a week for 0 days Quantity: 12 {Capsule} Refills: 0 Ordered:23-Jun-2015 Zabrina Farmer Start : 14-Apr-2015 End : 23-Jun-2015 Discontinued Comments:Dr Lee WELLBUTRIN SR, 150MG (Oral Tablet Extended Release 12 Hour) 1 (one) Tablet ER 12HR bid for 0 days Quantity: 180 {Tablet_ER_12HR} Refills: 3 Ordered:27-Mar-2013 Manda Higginbotham MD Start : 27-Mar-2013 End : 27-Mar-2013 Discontinued Allergies and Adverse Reactions Name Dates Details Percocet (Allergy) Status: Active Comments: itching Sulfa Drugs (Allergy) Status: Active Past Medical History Name Dates Details Abdominal pain, acute, generalized (R10.84, 789.07) Status: Inactive as of 27-Mar-2013 Abnormal blood chemistry (R79.9, 790.6) Status: Inactive as of 09-Feb-2014 BMI 30.0-30.9,adult (Z68.30, V85.30) Status: Inactive as of 12-Feb-2018 Bronchitis (J40, 490) Status: Inactive as of 30-Dec-2008 Bronchitis, acute (J20.9, 466.0) Status: Inactive as of 30-Dec-2008 cacified lesion on left wrist- get xray- if neg to knapic Comments: pt feels smaller and wants to hold off on intervention Status: Inactive as of 30-Dec-2008 Calcium kidney stone (N20.0, 592.0) Status: Inactive as of 09-Feb-2014 Candidiasis, mouth (B37.0, 112.0) Status: Resolved as of 04-Dec-2011 Cerebral degeneration, unspecified (331.9) Status: Inactive as of 09-Feb-2014 Chest pain (R07.9, 786.59) Status: Resolved as of 04-Dec-2011 Cough (R05, 786.2) Status: Resolved as of 14-Jun-2009 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 recent viral infection ? stress ? liver back up check stat labs. goes on vacation if come back and stilthere will do further study zofran prn Status: Inactive as of 09-Feb-2014 Fatigue (R53.83, 780.79) Comments: improved with diet and exercise Status: Inactive as of 30-Dec-2008 Frequency of urination (788.41) Status: Inactive as of 27-Mar-2013 Headache (R51, 784.0) Status: Inactive as of 30-Dec-2008 Hematuria (Renamed from Blood in the urine) (R31.9, 599.7) Status: Inactive as of 09-Feb-2014 Hemorrhoids, unspecified hemorrhoid type (K64.9, 455.6) Comments: rx hemmie creme Status: Inactive as of 28-May-2017 Hepatitis (K75.9, 573.3) Comments: now Dr. george think may have been related to macrobid took for few years. never return Status: Resolved as of 15-Mar-2015 Hirsutism (Renamed from Hirsuties) (L68.0, 704.1) Status: Inactive as of 09-Feb-2014 Hypoglycemia (E16.2, 251.2) Comments: has hx of this reviewed diet and glyemic index info- and small freq meals high in protein- she is eating carb prior to bed and at breakfast- so casein protein at hs- and protein at breakfast- call doesnt improve Status: Inactive as of 09-Feb-2014 Hypopotassemia (E87.6, 276.8) Status: Inactive as of 09-Feb-2014 Laryngitis (J04.0, 464.00) Status: Inactive as of 30-Dec-2008 Lung nodule (R91.1, 793.11) Comments: CT scan every 6 for 3 years and not change Status: Inactive as of 18-Sep-2013 Memory loss (R41.3, 780.93) Status: Inactive as of 09-Feb-2014 Other inflammatory disease of cervix, vagina and vulva (N72, 616.89) Comments: has used monostat, on macrobid bid chronically Status: Inactive as of 09-Feb-2014 Other signs and symptoms in breast (N64.59, 611.79) Comments: improved Status: Resolved as of 14-Jun-2009 Other specified viral infection, in conditions classified elsewhere and of unspecified site (B97.89, 079.89) Status: Resolved as of 17-Nov-2010 Other specified viral infection, in conditions classified elsewhere and of unspecified site (B97.89, 079.89) Status: Inactive as of 09-Feb-2014 Pain in joint involving other specified sites (M25.50, 719.48) Comments: rt rib? musculoskeletal vs contusion Status: Inactive as of 09-Feb-2014 Pain of left calf (M79.662, 729.5) Status: Inactive as of 28-May-2017 Pharyngitis, acute (J02.9, 462) Status: Inactive as of 09-Feb-2014 Pneumonia due to other specified bacteria (J15.8, 482.89) Comments: felt prob with pleurisy reveiwed with patient ER and hospital reports CT scan negative for PE. recheck on CRP pending still will await lab. should be decreased since feeling better. not need to repeat CXR since negative Status: Resolved as of 14-Jun-2009 Proteinuria (R80.9, 791.0) Status: Inactive as of 28-May-2017 screening Status: Inactive as of 04-Dec-2011 Side pain (R10.9, 789.00) Comments: left rib pain Status: Inactive as of 30-Dec-2008 SOB (shortness of breath) on exertion (R06.02, 786.05) Status: Inactive as of 30-Dec-2008 superficial thrombophlebitis Status: Inactive as of 30-Dec-2008 Unspecified Diagnosis Status: Inactive as of 09-Feb-2014 Unspecified Diagnosis Status: Inactive as of 17-Nov-2010 Vaginal dryness (N89.8, 625.8) Status: Inactive as of 09-Feb-2014 Vaginal itching (N89.8, 698.1) Status: Inactive as of 09-Feb-2014 Vaginitis (N76.0, 616.10) Status: Inactive as of 09-Feb-2014 Vertigo (R42, 780.4) Comments: think positional Status: Inactive as of 27-Mar-2013 Procedures Procedure Dates Details Appendectomy Completed Cholecystectomy Completed Comments: 1975 Colonoscopy Completed Comments: 2002 - Dr. Hough Foot Surgery - Right Completed Comments: fracture--screw inserted December 2014 Hysterectomy, Total Completed Comments: 1988- endometriosis kidney stone sx Apr 2015 Completed Tonsillectomy Completed Comments: 1973 Tubal Ligation Completed tympanostomy- b/l Completed Vein Stripping Right Leg 1990 Completed Date Value Details 20-Mar-2018 PT D/C Summary (1) Result: Comments: See Note; NOTES: [facility] [address] [place] [address] Fax REHABILITATION SERVICES ISHMAEL TAN SUMMARY MR#: [id number] Acct: [id number] Name: SUSANNE TORRES Rep #: [id number] : 1950 68 From: Mitch Leonard DPT, OCS, CSCS Referring Dr.: Rylee Bales DO Status: REG RCR Insurance : MEDICARE PART A B [employer] HP - PT D/C Summary It has been my pleasure to treat SUSANNE TORRES under orders from Rylee Bales, for the diagnosis of R shouldr pain for a total of 13 visit(s). Discharge Date: 03/19/18 Please see the following information for a summary of their discharge status. - Subjective Subjective: Lot less pain. Still gets some to 2/10 with sleeping positi on, or reaching behind. Comfortable at rest. Strengthening at home with band, will also do machines as instructed at [employer]. 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 - Pain R shoulder Pain Intensity (Out of 10): 2 - Overall Improvement % Improvement: 90 - Objective Objective/Function: Full aROM but pain end of flex adn abd today, not IR or E R. Strength is 4+/5 with some pain abd and empty can, and slight feeling with ext rotation. OVERALL MUCH BETTER AND VERY FUNCTIONAL, WILL CONTINUE VIA HEP. - Goals Goal 1:: Lift arm overhead without pa in. Full AROM elevation adn rotation Goal Progress: Progressing Goal 2:: Patient report pain 1/10 at worst adn only with LLA movements, 90% better overall. Goal Progress: Goal Met Goal 3:: Patient I in appropriate strength and postural ex to minimize chance of recurrence. Goal Progress: Goal Met Goal 4:: Sleep without waking due to pain. Goal Progress: Goal Met - Plan Plan: D/C - D/C Information Dis charge Comments: Pt doing very well and will continue with acitvity modification and HEP of strength adn ROM. Will contact doctor if pain worsens again. She did have injection about two weeks agoa and w ill f/u with Dr. Sweeney. If there are questions or concerns regarding this patient's physical therapy, please feel free to call me at [phone]. Thank you for the referral of this patient. Sincerel y, Mitch Leonard, HARDIK, OC <Electronically signed by Mitch Leonard DPT, CÉSAR, CSCS> 03/20/18 0932 CC: Rylee Bales DO EBG Signed 04-Mar-2018 Re-Evaluation - PT (1) Result: Comments: See Note; NOTES: [facility] [address] [facility] [facility] [place] [address] Fax REEVALUATION / MEDICARE RECERTI FICATION PHYSICAL THERAPY MR#: [id number] Acct: [id number] Name: SUSANNE TORRES Rep #: [id number] : 1950 68 From: Mitch Leonard DPT, CÉSAR, CSCS Referring Dr.: Rylee Bales DO Status: RE G RCR Insurance: MEDICARE PART A B [employer] Rylee Bales, It has been my pleasure to treat SUSANNE TORRES over the last 7 visits for R shouldr pain. Please see the progress note be low for an update on the physical therapy plan of care! 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 Reports the pain to be located in the front and under the shldr joint. Objective/Function: Review of postural maintainence so as to not exacerbate symptoms while sitting at [employer]. Pt states, I guess I wasn't really paying a ttention to how I was sitting. Minimal progression today in reps of current exc, however able to tolerate newly added shldr flexion and ABD exc with wts against gravity. While working on [employer], pt tripped on lower portion of machine and fell FWDs onto L hand and knees. States she was more embarrassed than painful. Minimal c/o's of L stoved wrist. Pt denied need to go to urgent care or ED. I nstructed to do so if symptoms worsen. Instructed to ice if feeling swollen - pt agreeable. QUANTROS filled out. Seeing supervising PT for last f/u appt after today's appt. Plan Plan: 3x/week for 2-4.. . 1. Activitiy modification(ensure not exacerbating). 2. US nonthermal R supra. 3. Gentle mobs and ROM to R UE, progress to strengthen of postural and RC muscles to tolerance. pec stretch. 4. ice as nee ded. Goals Goal 1:: Lift arm overhead without pain. Full AROM elevation adn rotation Goal Time Frame: 4-6 Weeks Goal Progress: 3/10, better Goal 2:: Patient report pain 1/10 at worst adn only with LLA movements, 90% better overall. Goal Time Frame: 4-6 Weeks Goal Progress: Progressing Goal 3:: Patient I in appropriate strength and postural ex to minimize chance of recurrence. Goal Time Frame: 4-6 Wee ks Goal Progress: Progressing Goal 4:: Sleep without waking due to pain. Goal Time Frame: 2-4 Weeks Goal Progress: Goal Met Anticipated Interventions Patient/Client Instruction: Educate patient on: Con dition, Plan of Care For the Purpose of:: To decrease pain, To decrease swelling/inflammation, To increase ROM, To improve nutrient delivery to tissue Therapeutic Exercise to Include: Strength training, Postural training, Passive ROM, Active ROM, Scapular Strength/Stabilization For the Purpose of:: To decrease pain, To decrease swelling/inflammation, To increase ROM, To improve nutrient delivery to ti ssue, To improve ability of physical actions for home/community/work/leisure Manual Therapy Techniques to Include: Mobilization For the Purpose of:: To decrease pain Cryotherapy (ice pack, ice massage): Yes Ultrasound (thermal/non thermal): Yes - nonthermal to supra tendon. For the Purpose of:: To decrease pain, To decrease swelling/inflammation Please do not hesitate to contact me at [phone] by phone or if you have questions or concerns regarding this new plan of care! Sincerely, Mitch Leonard, LILIAT, OC <Electronically signed by Mitch Leonard DPT, OCS, CSCS> 0 03/04/18 0939 CC: Rylee Bales DO EBG Signed For Medicare only, by signing this I certify the plan of care. Physicians Signature Date 19-Feb-2018 Inital Evaluation (1) - PT Result: Comments: See Note; NOTES: [facility] [address] [facility] [place] [address] Fax REHABILITATION SERVICES INITIAL EVALUATION MR#: [id number] Acct: [id number] Name: SUSANNE TORRES Rep #: [id number] : 1950 68 From: Mitch Leonard DPT, OCS, CSCS Referring Dr.: Rylee Bales DO Status: REG RCR Insuranc e: MEDICARE PART A B [employer] Patient's Visit Information SUSANNE TORRES is a 68 year old F referred to Physical Therapy by Rylee Bales with a diagnosis of R shouldr pain. Date of Evaluation: 02/17/18 Physical Therapist: Mitch Leonard DPT, OC - Visit Plan Frequency: 3x /Week Duration: 4-6 Weeks Plan: 3x/week for 2-4... 1. Activitiy modification(ensure not exacerbating). 2. US no nthermal R supra. 3. Gentle mobs and ROM to R UE, progress to strengthen of postural and RC muscles to tolerance. pec stretch. 4. ice as needed. 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 That was 6 weeks ago and it has hurt ever since intermittently with extending it at night with sleep, pulling pants up, WB through R UE. Comfortable for the most part at rest. Pain is in the R armp it. Xrays showed some OA. This is a new problem. Wakes her up at night if she sleeps with R UE under pillow. Does nto work. Activities are limtied in that she feels it getting dressed andcan only weed f or so long. - Pain R shoulder Pain Intensity (Out of 10): 0 Pain Intensity Range: 0, 5 - Objective c/s AROM WFL and full adn painfree. Full AROM B shoulders but R painful above 130 flex adn abd. An d with IR. + R maral Sheth and + R neer. Tender to palpation over R supra and subscap max. - ext rotation lag test, - drop arm. reflexes 2/3 bi and tri. Sensation UE WNL to gross light touch. Streng th 4/5 R UE but pain with flex, abd, empty can, ext rotation, IR, and slight with biceps. - Goals Goal 1:: Lift arm overhead without pain. Full AROM elevation adn rotation Goal Time Frame: 4-6 Weeks Go al 2:: Patient report pain 1/10 at worst adn only with LLA movements, 90% better overall. Goal Time Frame: 4-6 Weeks Goal 3:: Patient I in appropriate strength and postural ex to minimize chance of recu rrence. Goal Time Frame: 4-6 Weeks Goal 4:: Sleep without waking due to pain. Goal Time Frame: 2-4 Weeks - Rehabilitation Potential Physical Therapy Diagnosis: R shouldr pain, impingement tendonitis. R ehabilitation Potential: Good - Anticipated Interventions Patient/Client Instruction: Educate patient on: Condition, Plan of Care For the Purpose of:: To decrease pain, To decrease swelling/inflammatio n, To increase ROM, To improve nutrient delivery to tissue Therapeutic Exercise to Include: Strength training, Postural training, Passive ROM, Active ROM, Scapular Strength/Stabilization For the Purpose of:: To decrease pain, To decrease swelling/inflammation, To increase ROM, To improve nutrient delivery to tissue, To improve ability of physical actions for home/community/work/leisure Manual Therapy Techniques to Include: Mobilization For the Purpose of:: To decrease pain Cryotherapy (ice pack, ice massage): Yes Ultrasound (thermal/non thermal): Yes - nonthermal to supra tendon. For the Purpose of: : To decrease pain, To decrease swelling/inflammation Thank you for the opportunity to evaluate your patient. For Medicare and Medicare HMO plans, please review the plan of care and approve it. It will need to be FAXED BACK to us at [phone] for Medicare purposes. Please let me know if there are questions or concerns regarding this plan of care. Physician Signature: Date: <Electronically signed by Mitch Leonard DPT, OCS, CSCS> 02/19/18 0722 CC: Rylee Bales DO EBG Signed For Me dicflor only, by signing this I certify the plan of care. Physicians Signature Date 13-Feb-2018 Shoulder min 2 Views Result: Comments: See Note; NOTES: [facility] [address] [place] [address] Shoulder min 2 Views MR#: [id number] Acct: [id number] Name: SUSANNE TORRES Rep #: [id number] : 1950 F 68 From: Hector Oliveira MD PCP: Rylee Bales DO Status: REG CLI Study: Shoulder min 2 Views Date of Exam: 02/13/18 Exam# [id number] Ordering Dr: Rylee Bales DO STUDY: X-R AY - RIGHT SHOULDER REASON FOR EXAM: Female, 68 years old. Persistent pain x3 weeks TECHNIQUE: Or view(s) of the shoulder. COMPARISON: None. FINDINGS: Normal sujata ohumeral articulation. There is degenerative arthrosis of the acromioclavicular joint without inferior osseous spur formation. Normal acromion. Normal humeral head and visualized proximal humerus. The soft tissue structures are unremarkable. Normal visualized pulmonary apex. RAD/Shoulder min 2 Views IMPRESSION: Mild acromioclavicular joint ar throsis, no demonstrated fracture, or suspicious osseous lesion. Electronically Signed: Luis Eduardo Oliveira MD at 12:49 EDT , Service support , CC: Rylee Bales DO Python Architect: Signed 04-Feb-2018 Thyroid Result: Comments: See Note; NOTES: [facility] [address] [place] [address] Thyroid MR#: [id number] Acct: [id number] Name: SUSANNE TORRES Rep #: [id number] : 0 1950 F 68 From: Bayron Payan MD PCP: Rylee Bales DO Status: REG CLI Study: Thyroid Date of Exam: 02/04/18 Exam# [id number] Ordering Dr: Rylee Bales DO STUDY: THYROID ULTRASOUND RE ASON FOR EXAM: Female, 68 years old. History of thyroid nodules. Dysphagia. TECHNIQUE: Ultrasound evaluation of the thyroid was performed with real-time and static fairchild-scale imaging. COMPARISON: Comp arison is made with prior study dated January 03, 2017. FINDINGS: RIGHT LOBE: The right lobe of the thyroid gland measures 4.5 cm x 2.2 cm x 1.3 cm. There is a homogen eous echotexture. 3 subcentimeters nodules are once again seen. The largest measures 6 mm x 4 mm x 3 mm. These are hypoechoic and solid nodules. LEFT LOBE: The left lobe of the thyroid gland measures 4 .6 cm x 1.9 cm x 1.2 cm. There is a homogeneous echotexture. There is a 1.3 cm x 1 cm x 0.7 cm hypoechoic solid nodule in the midportion of the left lobe of the thyroid. This is unchanged as well. ISTH MUS: The isthmus measures 3 mm. The regional lymph nodes are normal. US/Thyroid IMPRESSION: Bilateral thyroid nodules larger in the left lobe. There has been essentially no change. Electronically Signed: Bayron Payan MD at 10:35 EDT Tel [phone], Service support , CC: Rylee Bales DO Python Architect: Signed 16-Oct-2017 PT D/C Summary (1) Result: Comments: See Note; NOTES: [facility] [address] [facility] [facility] [place] [address] Fax REHABILITATION SERVICES DISCHAR GE SUMMARY MR#: [id number] Acct: [id number] Name: SUSANNE TORRES Rep #: [id number] : 1950 67 From: Martín Arteaga DPT Referring Dr.: Rylee Bales DO Status: REG RCR Insurance: MEDICAR E PART A B [employer] HP - PT D/C Summary It has been my pleasure to treat SUSANNE TORRES under orders from Rylee Bales, for the diagnosis of for a total of 10 visit(s). Dayanara tony Date: 10/11/17 Please see the following information for a summary of their discharge status. - Subjective Subjective: Pt. reports I am doing a lot better. Pt. reports being HEP compliant. Pt. reports being 95% better. Pt. reports no falls since starting PT. - Pain LBP Pain Intensity (Out of 10): 0 neck Pain Intensity (Out of 10): 0 - Objective Objective/Function: Pt. has improved FGA to 27/30 reduce risk for future falls. Pt. reports overall reduced low back and neck pain. Pt. has improved stability noted with all dynamic balance testing. Pt. had a TUG of 6.07se c without AD. She is neogitiating steps without HR wtih reciprocal patterns. Pt. is pleased with PT. She will be DC to HEP at this point intime. - Goals Goal 1:: Pt. to be I with HEP. Goal Progress: Go al Met Goal 2:: Pt. to have increased RLE strength and core strength to reduce stress on lumbar spine with all functional mobility. Goal Progress: Goal Met Goal 3:: Pt. to have a balance neurocom assess ment completed. Goal Progress: Goal Met Goal 4:: Pt. to have increased FGA to 25/30 indicating reduced riskf or future falls. Goal Progress: Goal Met Goal 5:: Pt. to report 0-2/10 pain in R side of lumb ar spine with all functional mobility. Goal Progress: Goal Met - Plan Plan: Pt. will be DC to HEP at this point in time. Pt. has progressed very well with PT. Pt. to focus on balance related exercises for HEP, pt. consents. - D/C Information Discharge Comments: Pt. will be DC from PT at this point in time. Pt. has progressed as expected. Pt. had iimproved FGA and no falls recently. Pt. has proper ba crystal activites to progress at home. Pt. has overall increased stability. Pt. did have Neurocom testing completed that was able to help with focusing on target areas for balance. Pt. will be DC to physi jose at this point in time. If there are questions or concerns regarding this patient's physical therapy, please feel free to call me at [phone]. Thank you for the referral of this patient. Sincer Martín damian <Electronically signed by Martín Arteaga DPT> 10/16/17 0958 CC: Rylee Bales DO CLS Signed 12-Oct-2017 Urgent Care Visit Report Result: Comments: See Note; NOTES: [facility] [address] [place] [address] OFFICE VISIT Date of Service: 10/12/17 MR#: [id number] Acct: [id number] Name: SUSANNE TORRES Ivan Rep #: [id number] : 1950 Provider: Lillian Myers Age/Sex: 67/F Location[place] [facility] Status: Signed Intake Vital Signs10/12/17 Height 5 ft 2.5 in 10/12/17 Weight: 164 lb 10/12/17 Body Mass I ndex (BMI) 29.5 Intake Visit Reasons: L eye swelling Allergies Sulfa (Sulfonamide Antibiotics) Allergy (Verified 10/12/17 10:10) Rash Medications Bupropion HCl [Bupropion Xl] 150 mg PO DAILY 12/30 [History Confirmed 10/12/17] traZODone [Desyrel] 50 mg PO QHS 12/30/14 [History Confirmed 10/12/17] cephalexin 500 mg capsule 500 mg PO Q12H 7 Days #14 cap 10/12/17 [Rx Confirmed 10/12/17] PFSH M edical History Arthritis (Acute) Back pain (Acute) Hay fever (Acute) Hemorrhoids (Acute) Surgical History Hi story of cholecystectomy (Acute) Family History Father Diabetes Social History Smoking Status: Former smoker alcohol intake: never HPI HPI Details: SUSANNE TORRES, is a 67 F who presents to the office today for an urgent appointment. Patient states that she has a red swollen left upper eyelid. This is been going on for a week. She has been opal lying warm compresses. She does not know if it is a stye or if it is an infection. She feels that overnight it is gotten worse. She does not have any changes in her vision. She does not have any fevers chills night sweats. She does not have any chest pain or shortness of breath. She does not have any cough. She does not have any nausea vomiting. ROS Const Constitutional: No anorexia, body ache, chi lls, fatigue, fever(s) or headache(s) Eyes Eyes: Positive for eye pain; no discharge ENT ENT: No headache(s), ear pain, ear pressure, tinnitus, dizziness/vertigo, nasal congestion, nasal discharge, sinu s pressure, dental pain or facial pain Resp Respiratory: No cough or chest congestion Cardio Cardiology: No dyspnea on exertion, shortness of breath or irregular heart rhythm Gastro GI: No vomiting, dung rrhea or heartburn Neuro Neurology: No headache(s) Endo Endocrine: No fatigue Exam Const General: cooperative, no acute distress, well developed HENMT Head: normal to inspection, atraumatic Ears: hear ing grossly normal bilaterally Nose: external nose normal, nares normal Mouth: oral mucosae normal Eyes Visual Gill: normal visual gill by confrontation Alignment and Position: alignment normal Norah orbital: periorbital findings normal Eyelids: eyelid abnormality left upper eyelid (Swelling and redness noted to left upper eyelid) Neck Neck: normal visual inspection, no lymphadenopathy Neck mass: No Thyroid: thyroid normal Resp Effort AND Inspection: normal respiratory effort Auscultation: Bilateral: Clear to Auscultation Cardio Palpation: normal PMI Rate: regular rate Rhythm: regular rhythm Heart Sounds: S1 normal, S2 normal, no click, no gallops, no murmurs, no rubs Neuro General: alert, awake, oriented x3 Cranial Nerves: CN's II-XI intact bilaterally Assessment AND Plan Problems 1. Cellulit is of other specified site L03.818 Plan Patient does have a chalazion noted on her left upper eyelid. Since she has been rubbing it she has some cellulitis noted. Will treat her with Keflex. Also advis ed to use warm compresses to help with chalazion. If not any improvement advised that she see her terrazzo roller. Medications New: Coding Level of Care Code Off vis,est,level 4 Diagnoses Cellulitis of other specified site L03.818 Site of cellulitis: other site Intake Vital Signs10/12/17 Height 5 ft 2.5 in 10/12/17 Weight: 164 lb 10/12/17 Body Mass Index (BMI) 29.5 Intake Visit Reasons: L eye swelling Allergies Sulfa (Sulfonamide Antibiotics) Allergy (Verified 10/12/17 10:10) Rash Medications Bupropion HCl [Bupropion Xl] 150 mg PO DAILY 12/30/14 [History Confirmed 10/12/17] traZODone [D esyrel] 50 mg PO QHS 12/30/14 [History Confirmed 10/12/17] cephalexin 500 mg capsule 500 mg PO Q12H 7 Days #14 cap 10/12/17 [Rx Confirmed 10/12/17] PFSH Medical History Arthritis (Acute) Back pain (Acute) Hay fever (Acute) Hemorrhoids (Acute) Surgical History History of cholecystectomy (Acute) Family His tory Father Diabetes Social History Smoking Status: Former smoker alcohol intake: never HPI HPI Details: SUSANNE TORRES, is a 67 F who presents to the office today for an urgent appointment. Patient states that she has a red swollen left upper eyelid. This is been going on for a week. She has been applying warm compresses. She does not know if i t is a stye or if it is an infection. She feels that overnight it is gotten worse. She does not have any changes in her vision. She does not have any fevers chills night sweats. She does not have any c hest pain or shortness of breath. She does not have any cough. She does not have any nausea vomiting. ROS Const Constitutional: No anorexia, body ache, chills, fatigue, fever(s) or headache(s) Eyes Ey es: Positive for eye pain; no discharge ENT ENT: No headache(s), ear pain, ear pressure, tinnitus, dizziness/vertigo, nasal congestion, nasal discharge, sinus pressure, dental pain or facial pain Resp R espiratory: No cough or chest congestion Cardio Cardiology: No dyspnea on exertion, shortness of breath or irregular heart rhythm Gastro GI: No vomiting, diarrhea or heartburn Neuro Neurology: No headac he(s) Endo Endocrine: No fatigue Exam Const General: cooperative, no acute distress, well developed [facility] Head: normal to inspection, atraumatic Ears: hearing grossly normal bilaterally Nose: external nose normal, nares normal Mouth: oral mucosae normal Eyes Visual Gill: normal visual gill by confrontation Alignment and Position: alignment normal Periorbital: periorbital findings normal Eyelids: eyelid abnormality left upper eyelid (Swelling and redness noted to left upper eyelid) Neck Neck: normal visual inspection, no lymphadenopathy Neck mass: No Thyroid: thyroid normal Resp Effort AND Insp ection: normal respiratory effort Auscultation: Bilateral: Clear to Auscultation Cardio Palpation: normal PMI Rate: regular rate Rhythm: regular rhythm Heart Sounds: S1 normal, S2 normal, no click, no g allops, no murmurs, no rubs Neuro General: alert, awake, oriented x3 Cranial Nerves: CN's II-XI intact bilaterally Assessment AND Plan Problems 1. Cellulitis of other specified site L03.818 Plan Jesenia ent does have a chalazion noted on her left upper eyelid. Since she has been rubbing it she has some cellulitis noted. Will treat her with Keflex. Also advised to use warm compresses to help with chalaz ion. If not any improvement advised that she see her terrazzo roller. Medications New: Coding Level of Care Code Off vis,est,level 4 Diagnoses Cellulitis of other specified site L03.818 Site of cell ulitis: other site 10/12/17 1020 <Electronically signed by Lillian FLORES> Date Lillian FLORES Cosdeaner Signatur e: Date (if applicable) CC: 24-Sep-2017 PT Communication Result: Comments: See Note; NOTES: [facility] [address] [place] [address] Fax REHABILITATION SERVICES PROGRES S NOTE MR#: [id number] Acct: [id number] Name: SUSANNE TORRES Rep #: [id number] : 1950 67 From: Tatiana JOHNSTON Referring Dr.: Rylee Bales DO Status: REG RCR Insurance: MEDICARE PA RT A B [employer] PT Communication Note 09/23/[address] Rylee POZO, Thank you for the referral of Susanne Torres to our clinic. She was tested on our NeuroCom today and below are her test results. On the Sensory Organization Test the patients overall score was below normal. She had some trouble with her visual and vestibular inputs She was more ankle dominant than hip dominant. Her COG alignment was within normal ranges. Her overall reaction time was within the normal range on the Motor Control Test The patient had some trouble with weight shifting forward and to the Left At this point we will work with the pt on vestibular and visual inputs along with weight shifts fw and to the L. We will also work on core stability and LE strengthening. Sincerely, Tatiana Wagner Contact Information 09/24/17 0926 <Electronically signed by Tatiana Wagner MPT> Date An lucio Wagner MPT Cosigner Signature (if applicable): Date CC: Rylee Bales DO Signed For Medicare only, by signing this I certify the plan of care. Physicians Signature Date 18-Sep-2017 Inital Evaluation (1) - PT Result: Comments: See Note; NOTES: [facility] [place], [place] [id number] Fax REHABILITATION SERVICES INITIAL EVALUATION MR#: [id number] Acct: [id number] Name: SUSANNE TORRES Rep #: [id number] : 1950 67 From: Martín Arteaga DPT Referring Dr.: Rylee Bales DO Status: REG RCR Insurance: MEDICA RE PART A B [employer] Patient's Visit Information SUSANNE TORRES is a 67 year old F referred to Physical Therapy by Rylee Bales DR.KFWANDAO with a diagnosis of . Date of Evaluation: 0 09/18/17 Physical Therapist: Martín Arteaga - Visit Plan Frequency: 2-3x /Week Duration: 4-6 Weeks Plan: Start with neutral spine core strengtheing, BLE strneghtening, complete balance assessment. Foam and dynamic balance activities. - Subjective Subjective: Pt. is here today for her initial evaluation with diagnosis of LBP and frequent falls. Pt. reports she has fallen 3 times in the last 2 months. Pt. reports she feels like she is catching her R foot causing her to fall. She reports increased difficulty when wearing a boot with a higher sole as well. She reports no injury with these recent falls. Pt. reports has increased pain in R side of lumbar spine, but does receive injections 2 per year to reduce symptoms. Pt. had an injection in May. Pt. reports noticing R LE weakness, but does not appear to be worsening. Pt. is concerned about her falls as she feels it is getting worse and does not want to fall and break something.' Pt. reports having LBP for 40+ years and her symptoms h ave not changed mmuch recently, but is tripping more. Pt. denies N/T and no changes in B/B. Pt. is hopeful to increase stability and reduce LBP in order to get back to all recreational activities withou t issues. - Pain LBP Pain Intensity (Out of 10): 2 Pain Intensity Range: 0, 6 - Objective POSTURE: Pt. has slight FH posture, rounded shoulders, and reduced lumbar lordosis. Pt. normal iliac creast heights. Pt. has no lateral shift and normal wt. shifting between bilateral LEs. PALPATION: Pt. has mild increase in tenderness at R side lumbar erector spinea. Pt. has no pain at SI region and no L si ded pain. NEUROLOGICAL: Pt. has normal sensation to light and sharp touch throughout bilateral LEs. Pt. has 2+ bilateral achilles and patellar DTR bilaterally. ROM: LUMBAR SPINE- flexion nil loss increa se NW upon return, ext- mod loss increase NW, SB min loss bilat, rotation min loss bilat increase NW. Pt. has normal ankle mobility throughout, as well her knees. MMT: RLE- ankle- DF 4/5, PF 5/5; knee- ext 4+/5, flexion 4/5; hip- flexion 4/5, adb 4/5, ext 4/5. LLE- ankle 5/5 throughout; knee 5/5 throughout; hip- flexion 4+/5, adb 4+/5, ext 4+/5. GAIT: pt. ambulates with out AD, Pt. is able to maintain stability, decreased L foot clearance with gait. STAIRS: Pt. is able to negotiate with 1 HR with controlled motion with ascending and descending. - Special Tests L/S Slump test left side: Negative L/S Slump test right side: Negative L/S Left Straight Leg Raise: Negative L/S Right Straight Leg Raise: Negative Lumbar Standing: Flexion - Mechanical Response: No effect Lumbar Standing: Flexion - Symptom s During Testing: Increases Lumbar Standing: Flexion - Symptoms After Testing: No worse Lumbar Standing: Extension - Mechanical Response: No effect Lumbar Standing: Extension - Symptoms During Testing: Increases Lumbar Standing: Extension - Symptoms After Testing: Worse Lumbar Standing: Right Side Glides - Mechanical Response: No effect Lumbar Standing: Right Side [place] - Symptoms During Testing: No e ffect Lumbar Standing: Right Side [place] - Symptoms After Testing: No effect Lumbar Standing: Left Side [place] - Mechanical Response: No effect Lumbar Standing: Left Side [place] - Symptoms During Testing: No effect Lumbar Standing: Left Side [place] - Symptoms After Testing: No effect - Balance Scores Functional Gait Assessment Score: 20 % Disability: 33.3400 - Goals Goal 1:: Pt. to be I with HEP. Goal T chong Frame: 4-6 Weeks Goal 2:: Pt. to have increased RLE strength and core strength to reduce stress on lumbar spine with all functional mobility. Goal Time Frame: 4-6 Weeks Goal 3:: Pt. to have a balanc e neurocom assessment completed. Goal Time Frame: 2 Weeks Goal 4:: Pt. to have increased FGA to 25/30 indicating reduced riskf or future falls. Goal 5:: Pt. to report 0-2/10 pain in R side of lumbar spi ne with all functional mobility. Goal Time Frame: 4-6 Weeks - Rehabilitation Potential Rehabilitation Potential: Good - Anticipated Interventions Patient/Client Instruction: Educate patient on: Condit ion, Plan of Care, Risk Factors, Benefits of Fitness Program For the Purpose of:: To improve health and function, To foster healthy habits, To improve decision making, To facilitate caregiver knowledge, To improve self management, To prevent re-injury, To improve ability to perform tasks related to life management, To improve tolerance to ADL's Therapeutic Exercise to Include: Strength training, Power training, Endurance training, Balance training, Body mechanics, Postural training, Gait and locomotor training, Neuromotor development, via Neurocom Balance Mas, Passive ROM, Active ROM, Dynam ic Lumbar Stabilization For the Purpose of:: To decrease pain, To increase ROM, To improve nutrient delivery to tissue, To increase oxygenation perfusion, To improve muscle performance and motor functio n, To improve ability to perform ADL's, To increase tolerance to activity/condition/position, To improve performance and independence with ADL's, To improve gait and locomotor functions, To improve heal th of tissue, To increase flexibility/ROM, To improve endurance, To improve balance, To improve safety with gait, To assume or resume ADL's Thank you for the opportunity to evaluate your patient. F or Medicare and Medicare HMO plans, please review the plan of care and approve it. It will need to be FAXED BACK to us at [phone] for Medicare purposes. Please let me know if there are questions or concerns regarding this plan of care. Physician Signature: Date: <Electronically signed by Martín Arteaga DPT> 09/18/17 1910 CC: Ryele Bales DO CLS Signed For Medicare only, by signing this I certify the plan of care. Physicians Signature Date 16-Aug-2017 Hand Min 3 Views Result: Comments: See Note; NOTES: [facility] [address] [place] [address] Hand Min 3 Views MR#: [id number] Acct: [id number] Name: SUSANNE TORRES Rep #: [id number] : 1950 F 67 From: Bayron Payan MD PCP: Rylee Bales DO Status: REG CLI Study: Hand Min 3 Views Date of Exam: 08/16/17 Exam# [id number] Ordering Dr: Rylee Bales DO STUDY: X-RA Y - LEFT HAND REASON FOR EXAM: Female, 67 years old. Pain and swelling overlying the fourth and fifth metacarpals following an injury. TECHNIQUE: 3 view(s) of the hand. COMPARISON: None. FINDINGS: Normal radiocarpal articulation. Normal distal radioulnar joint. Normal visualized carpal bones. Normal carpal articulations Normal carpometacarpal articulation of t he thumb. Normal second through fifth carpometacarpal joints. Normal metacarpi. Normal metacarpophalangeal joint of the thumb. Normal interphalangeal joint of the thumb. Normal proximal and distal pha langes of the thumb. Normal metacarpophalangeal joints of the second through fifth fingers. Normal proximal and distal interphalangeal joints of the second through fifth fingers. Normal phalanges of th e second through fifth fingers. Diffuse soft tissue swelling. RAD/Hand Min 3 Views IMPRESSION: Diffuse soft tissue swelling. Electronically Sig paul: Bayron Payan MD at 13:43 EST Tel [phone], Service support , CC: Rylee Bales DO Python Architect: Signed 25-Jul-2017 SCREENING MAMM (CAD), BILAT Result: Comments: See Note; NOTES: [facility] [address] [place] [address] SCREENING MAMM (CAD), BILAT MR#: [id number] Acct: [id number] Name: SUSANNE TORRES Rep #: [id number] : 1950 F 67 From: Bayron Payan MD PCP: Rylee Bales DO Status: REG CLI Study: SCREENING MAMM (CAD), BILAT Date of Exam: 07/25/17 Exam# [id number] Ordering Dr: Sherrell Bales DO MAMMOGRAPHY - BILATERAL SCREENING REASON FOR EXAM: Female, 67 years old. Routine annual screening examination. PERTINENT HISTORY: Non- contributory. TECHNIQUE: Digital bilateral breast shelby (3D mammographic acquisition) in the CC and MLO projections. 2-D mediolateral oblique (MLO) and craniocaudad (CC) views of both breasts were obtained. CAD: Full Field Digital Mammography with Computer Added Detection was performed. COMPARISON: Comparison is made with prior study dated July 24, 2016 and July 19, 2015. FINDINGS: Breast Composition: There are scattered areas of fibroglandular density. There are no dominant masses or suspicious calcifications. No other significant abnormalities are identified. There has been no significant change since the prior study. HPBI/SCREENING MAMM (CAD), BILAT IMPRESSION: Stable bilateral screening mammogram. Yearly follow-up mammogram recommended. (A) ____ ASSESSMENT CATEGORY: BIRADS Category 1: Negative. A letter regarding these results will be sent to the patient by the facility within 30 days. Approximately 10% of [address] cancers are not detected by mammography. A normal mammogram should not delay biopsy of a clinically suspicious abnormality. [id number] Electronically Signed: Bayron Payan MD at 14:18 EST Tel [phone], Service support , CC: Rylee Bales DO Python Architect: Signed 03-Jul-2017 Urgent Care Visit Report Result: Comments: See Note; NOTES: [facility] [address] [place] [address] OFFICE VISIT Date of Service: 07/03/17 MR#: [id number] Acct: [id number] Name: SUSANNE TORRES Rep #: [id number] : 1950 Provider: Matt FLORES Age/Sex: 67/F Location[place] [facility] Status: Signed Intake Vital Signs07/03/17 Height 5 ft 2.5 in Intake Visit Reasons: Urinary tract infection Is patient in pain?: No Allergies Sulfa (Sulfonamide Antibiotics) Allergy (Verified 07/03/17 14:54) Rash Medications Bupropion HCl [Bupropion Xl] 150 mg PO DAILY 12/30/14 [History Confirmed 7] Trazodone HCl [Desyrel] 50 mg PO QHS 12/30/14 [History Confirmed 07/03/17] ciprofloxacin 500 mg tablet 500 mg PO BID 7 Days #14 tab 07/03/17 [Rx Confirmed 07/03/17] PFSH Medical History UTI (urin loco tract infection) (Acute) Arthritis (Acute) Back pain (Acute) Hay fever (Acute) Hemorrhoids (Acute) Surgical History History of cholecystectomy (Acute) Family History Father Diabetes Social Hi story Smoking Status: Former smoker alcohol intake: never HPI Urinary tract infection: Chief Complaint: Dysuria Details: SUSANNE TORRES, is a 67 F who presents to the office today for 2 day his tory of dysuria and urinary frequency. No complaints of fever, chills, sweats, or back pain. Suprapubic tenderness noted. No other associated symptoms no other alleviating or aggravating factors. ROS C onst Constitutional: No excessive sweating, abnormal sleep pattern, chills, fever(s) or night sweats Eyes Eyes: No change in vision ENT ENT: No abnormal hearing, ear pain, ear discharge, ear pressure, h earing loss, post nasal drip or sinus pressure Resp Respiratory: No cough or chest congestion Cardio Cardiology: No excessive sweating, chest pain at rest, chest pain with exertion, shortness of breath, dyspnea on exertion, irregular heart rhythm, generalized swelling or leg pain with exertion Gastro GI: No abdominal pain, change in stool character or change in bowel habits Genitourinary-Female: Po sitive for burning urination, painful urination and urinary frequency Genitourinary: Positive for burning urination, painful urination and urinary frequency Musc Musculoskeletal: No joint pain, back tran n or limited range of motion Skin Skin: No change in hair or sores Neuro Neurology: No abnormal hearing, abnormal speech or abnormal movements Psych Psychiatric: No abnormal sleep pattern Endo Endocrine : No excessive sweating, change in body appearance, cold intolerance or heat intolerance Aller/Imm Allergy/Immunologic: No food intolerance Jaswant/Lymp Hematologic/Lymphatic: No easy bruising Exam Const General: cooperative, healthy appearing, no acute distress Nutritional Appearance: average body habitus Orientation: alert, awake, oriented x3 HENMT Head: normal to inspection Ears: hearing grossly nor mal bilaterally Nose: external nose normal Face and sinus: normal facial exam Mouth: oral mucosae normal Eyes General: appearance normal, both eyes and all related structures Neck Neck: normal visual in spection, full ROM, no lymphadenopathy, no meningeal signs Neck mass: No Thyroid: thyroid normal Lymphatic: no lymphadenopathy noted Chest Chest palpation AND inspection: normal inspection of the chest Resp Effort AND Inspection: normal respiratory effort, able to speak in complete sentences Cardio Pulses: radial pulses present GI Inspection: normal to inspection Palpation: soft, no hepatosplenomegaly General: No CVA tenderness, No bladder normal to palpation (With suprapubic tenderness to palpation appreciated) Bimanual Exam- Vagina AND Uterus: No bladder normal to palpation (With suprapubic ten derness to palpation appreciated) Skin General: no rashes or lesions noted Neuro General: alert, awake, oriented x3, gait normal Cognition: normal cognition Speech: speech normal Gait: normal gait Motor : muscle tone normal throughout Sensory Exam: no sensory deficits noted Extrem General: normal to inspection Psych Appearance: grossly normal Mental Status: mental status grossly normal Mood: congruent mood Affect: normal affect Speech and Movement: speech and movement normal Attitude: cooperative Thought Process: normal Thought Content: normal Judgment: judgment good Results BMSUA Office Urine Col or YELLOW Last Edit by Millie Rodriguez on 07/03/17 15:06 Office Urine Clarity Clear Last Edit by Millie Rodriguez on 07/03/17 15:06 Assessment AND Plan 1. Urinary tract infection N39.0 Orders Orders : Plan Detail Other Orders Orders: Other Medications New: ciprofloxacin (Cipro) administer within 120 minutes prior to fiua147 mg PO BID 7 days ical incision Additional Comments UA dip = mod blood, mo d leukocytes. Cipro as prescribed today (per pt preference). Appropriate hygiene reinforced. Follow-up with PCP or technical marketing consultant 2-3 days should symptoms not improved, sooner should symptoms worsen or an y other concerns develop. Patient states acknowledging understanding of the above. Coding Level of Care Code Off vis,new,level 3 Diagnoses Urinary tract infection N39.0 07/03/17 1524 <Elect ronically signed by Matt FLORES> Date Matt Melo Signature: Date (if applicable) CC: 03-Jul-2017 Acute Abdomen Inc Chest Result: Comments: See Note; NOTES: [facility] [address] [place] [address] Acute Abdomen Inc Chest MR#: [id number] Acct: [id number] Name: SUSANNE TORRES Rep #: [id number] : 1950 F 67 From: Ross Javier DO PCP: Rylee Bales DO Status: REG CLI Study: Acute Abdomen Inc Chest Date of Exam: 07/03/17 Exam# [id number] Ordering Dr: Rylee Bales DO STUD Y: X-RAY - ACUTE ABDOMINAL SERIES REASON FOR EXAM: Female, 67 years old. Abdominal pain with vomiting and diarrhea. TECHNIQUE: Single view of the chest. Supine, and erect view(s) of the abdomen were o btained. COMPARISON: Abdomen, July 02, 2017. FINDINGS: The lungs are clear and expanded. Normal size heart. Normal mediastinum and robe. Normal visualized pul monary arteries. There is atherosclerotic calcification of the aortic arch with tortuosity. There is a non-specific bowel gas pattern. Air is seen throughout nondistended colon. There is no air fluid l evels or small bowel distention. There is slightly decreased right colonic feces when compared to yesterday's study. There is no free air The soft tissue structures of the abdomen and pelvis are unremar kable. Again seen are surgical clips in the left pelvis. No visualized osseous changes. There is evidence of dextroscoliosis of the thoracic spine. 012 RAD/Acute Abdomen Inc Chest IMPRESSION: 1. No acute cardiopulmonary disease. 2. No acute intra-abdominal process. Electronically Signed: Ross Javier DO at 11:58 EST Tel [phone], Serv ice support , CC: Rylee Bales DO Python Architect: Signed 02-Jul-2017 Abd Inc Decub and/or Erect Result: Comments: See Note; NOTES: [facility] [address] [place] [address] Abd Inc Decub and/or Erect MR#: [id number] Acct: [id number] Name: SUSANNE TORRES Rep #: [id number] : 1950 F 67 From: Ross Javier DO PCP: Rylee Bales DO Status: REG CLI Study: Abd Inc Decub and/or Erect Date of Exam: 07/02/17 Exam# [id number] Ordering Dr: Rylee Bales DO STUDY: X-RAY - ABDOMEN/PELVIS REASON FOR EXAM: Female, 67 years old. Chronic abdominal pain. Severe constipation. TECHNIQUE: AP supine and upright views of the abdomen and pelvis. COMPARISON: er 2014. FINDINGS: Normal visualized lung bases. Large amount of feces in the right colon. There is no colonic distention or obstruction. There are mildly diste nded small bowel loops in the left upper quadrant. There is no demonstrated free abdominal air. The visualized liver, spleen and kidneys are grossly normal in size and morphology. There is a persisting calcification overlying the upper pole of the left kidney unchanged from the prior study. There are surgical clips in the left pelvis. Normal soft tissue structures. No visualized osseous changes. ___ RAD/Abd Inc Decub and/or Erect IMPRESSION: 1. Persistent left renal calculus. 2. Mildly distended small bowel loops in the left upper quadrant. Ques tion focal ileus. 3. Increasing right colonic feces. Question constipation. Electronically Signed: Ross Javier DO at 11:35 EST Tel [phone], Service support , Fax CC: Rylee Bales DO Python Architect: Signed 03-Jan-2017 Thyroid Result: Comments: See Note; NOTES: [facility] [address] [place] [address] Verdana 4d Thyroid MR#: [id number] Acct: [id number] Name: SUSANNE TORRES Rep #: [id number] : 1950 F 66 From: Roselia Huerta MD PCP: Rylee Bales DO Status: REG CLI Study: Thyroid Date of Exam: 01/03/17 Exam# [id number] Ordering Dr: Rylee Bales DO STUDY: THYROID ULTRASOU ND REASON FOR EXAM: Female, 66 years old. Thyromegaly TECHNIQUE: Ultrasound evaluation of the thyroid was performed with real-time and static fairchild-scale imaging. COMPARISON: None. FINDINGS: RIGHT LOBE: The right lobe of the thyroid gland measures 4.4 x 1.8 x 1.3 cm. There is a homogeneous echotexture. There are 2 nodules in the right thyroid lobe measure respec tively 5 x 4 x 2 mm and 3 x 2 x 2 mm these nodules have nonspecific appearance. There is a cyst in the right thyroid lobe measures 2 mm in diameter. LEFT LOBE: The left lobe of the thyroid gland measur es 4.3 x 1.5 x 1.4 cm. There is a homogeneous echotexture. There is a nodule in the left thyroid lobe measures 13 x 8 x 5 mm. ISTHMUS: The isthmus measures 2 m . The regional lymph nodes are normal. US/Thyroid IMPRESSION: Bilateral nonspecific thyroid nodules the largest is in left thyroid lobe measures 13 x 8 x 5 mm. Electronically Signed: Roselia Huerta MD at 23:26 EDT Tel , Service support , CC: Rylee Bales DO Python Architect: Signed 15-Aug-2016 Venous Duplex Lower Extremity Result: Comments: See Note; NOTES: [facility] [address] [place] [address] Venous Duplex US, Unilateral 08/15/16 1054 MR#: [id number] Acct: [id number] Name: SUSANNE COLMENARES Rep #: [id number] : 1950 66 From: Bradford Crowe MD Attending Dr: Rylee Bales DO Status: REG CLI Ordering Dr: Rylee Bales DO Date: 08/15/16 Location: [facility] Sex: F C Admi tted: Reason For Study: LEG PAIN RIGHT LEFT CFV is compressible, spontaneous, phasic, GSV is normal. competent and demonstrates normal CFV is compressible, spontaneous, phasic , augmentation. comp etent, and demonstrates normal Procedure augmentation. Exam performed in department. FV is compressible, spontaneous, phasic, A preliminary report was called and/or faxed competent and demonstrates norm al to Dr. Bales. augmentation. POP V is compressible, spontaneous, phasic, competent and demonstrates normal augmentation. T/P Trunk is compressible. PTV is compressible. LT PerV is compressible. Inte rpretation Summary Deep veins of the left lower extremity are patent and compressible segmentally. There is no evidence of left lower extremity deep vein thrombosis. Valvular competence appears intact w ithin the proximal deep venous system on the left . The left greater saphenous vein appears patent and compressible segmentally. Ordering Physician: Rylee Bales Referring Physician: Peri Deutsch Performed By: Humera Martinez RVT 12 :27 PM 08/15/16 1228 Date Bradford Crowe MD CC: Rylee Bales DO Date Dictated: 08/15/16 1054 Date Transcribed: 08/15/16 1228 Python Architect: Signed 24-Jul-2016 SCREENING MAMM (CAD), BILAT Result: Comments: See Note; NOTES: [facility] Imaging Services [address] [place] [address] Verdana 4d SCREENING MAMM (CAD), BILAT MR#: [id number] Acct: [id number] Name: MARYANA TORRES Rep #: [id number] : 1950 F 66 From: Ross Javier DO PCP: Rylee Bales DO Status: REG CLI Study: SCREENING MAMM (CAD), BILAT Date of Exam: 07/24/16 Exam# [id number] Ordering Dr: Rylee Bales DO MAMMOGRAPHY - BILATERAL SCREENING REASON FOR EXAM: Female, 66 years old. Routine annual screening examination. PERTINENT HISTORY: Non- contributory. TECHNIQUE: Digital examination. Medi olateral oblique (MLO) and craniocaudad (CC) views of both breasts were obtained with digital tomosynthesis. CAD: CAD was performed on this study. COMPARISON: July 19, 2015 and July 13, 2014. _ FINDINGS: Breast Density: C - Heterogeneously dense, which may obscure small masses. There are no dominant masses or suspicious calcifications. There is a stable una cification in the left breast. No other significant abnormalities are identified. HPBI/SCREENING MAMM (CAD), BILAT IMPRESSION: Stable bilateral screening mammogram. Yearly follow-up mammogram recommended. (A) ASSESSMENT CATEGORY: BIRADS Category 2: Benign. A letter regarding these results will be sent to th e patient by the facility within 30 days. Approximately 10% of breast cancers are not detected by mammography. A normal mammogram should not delay biopsy of a clinically suspicious abnormality. [id number] Electronically Signed: Ross Javier DO at 16:06 EST Tel [phone], Service support [phone], CC: Rylee Bales DO Python Architect: Signed 17-Jul-2016 DXA BONE DENS W/VERT FX ASMT Result: Comments: See Note; NOTES: [facility] Imaging Services [address] [place] [address] Verdana 4d DXA BONE DENS W/VERT FX ASMT MR#: [id number] Acct: [id number] Name: Vincent TORRES DelmiMOUSTAPHA Ivan Rep #: [id number] : 1950 F 66 From: Bayron Payan MD PCP: Rylee Bales DO Status: REG CLI Study: DXA BONE DENS W/VERT FX ASMT Date of Exam: 07/17/16 Exam# [id number] Ordering Dr : Rylee Bales DO STUDY: DUAL ENERGY X-RAY ABSORPTIOMETRY / DXA REASON FOR EXAM: Female, 66 years old. Early menopause. Loss of height. TECHNIQUE: Bone Mineral Density (BMD) measurements of lumb ar spine and bilateral hips were obtained. COMPARISON: Comparison is made with prior study dated June 26, 2012. FINDINGS: Lumbar Spine (L1-L4): g/cm2 (0.963) / T-score (-1.8) / Z-score (-0.2) Findings are suggestive of osteopenia with a moderate fracture risk. Left Femur Total: g/cm2 (0.815) / T-score (-1.5) / Z-score (- 0.2) Left Femoral Neck: g/cm2 (0.836) / T-score (-1.5) / Z-score (0.1) Right Femur Total: g/cm2 (0.794) / T-score (-1.7) / Z-score (-0.4) Right Femoral Neck: g/cm2 (0.876) / T-score (-1.2) / Z-score (0.4) The T-Scores on the most recent reagan or examination were: Lumbar Spine (L1-L4): There has been worsening of bone density since the previous examination. Left Femur Total: which represents a worsening of 1.8%. Right Femur Total: which rep resents an improvement of 1.1%. HPBD/DXA BONE DENS W/VERT FX ASMT IMPRESSION: The patient is considered osteopenic as outlined below according to World Nayan Organization (WHO) criteria with a moderate fracture risk. There has been worsening of bone density since the previous examination. Reference Informati on: The T-score is the number of standard deviations above or below the standard which is normal for young adults at their peak bone mineral density. The World Health Organization (WHO) interprets the T -scores as follows: Above -1 Normal bone density Between -1 and -2.5 Osteopenia Equal to / or below -2.5 Osteoporosis As a practical clinical guideline, osteopenia may be graded as follows: Mild -1 th rough -1.5 Moderate -1.6 through -2.0 Severe -2.1 through -2.4 The Z-score is the number of standard deviations above or below age-matched controls. A Z- score of less than -1.5 would be considered abno rmal. References: 1. NIH Osteoporosis and Related Bone Diseases http://www.osteo.org 2. International Society for Clinical Densitometry http://www.iscd.org 3. National Osteoporosis Foundation http://ww w.nof.org Electronically Signed: Bayron Payan MD at 14:09 EST Tel [phone], Service support [phone], CC: Rylee Bales DO Python Architect: Signed 01-Mar-2016 ELECTROCARDIOGRAM, COMPLETE (ECG) (79857) Comments: sinus beverly no acute chg Result: [MEASUREMENTS ANALYSIS] Date of Test: 03/01/2016 13:45:12; Heart Rate: 59; SC Interval: 154; QRS: 92; QT Interval: 426; Corrected QT Interval (QTc): 425; P Wave [place]: 33; QRS Wave [place]: 33; T Wave [place]: 90; Blood Pressure: 120/78 [ECG DIAGNOSTIC STATEMENTS] Date of Test: 03/01/2016 13:45:12; Summary: Sinus Bradycardia - Nonspecific T-abnormality. ABNORMAL 01-Nov-2015 Lumbar Spine 2 or 3 Views Result: Comments: See Note; NOTES: [facility] Imaging Services [address] [place] [address] Verdana 4d Lumbar Spine 2 or 3 Views MR#: [id number] Acct: [id number] Name: SUSANNE COLMENARES Rep #: [id number] : 1950 F 65 From: Bayron Payan MD PCP: Manda Higginbotham MD Status: REG CLI Study: Lumbar Spine 2 or 3 Views Date of Exam: 11/01/15 Exam# [id number] Tanya gilmore Dr: Ryan Ortiz MD STUDY: X-RAY - LUMBAR SPINE REASON FOR EXAM: Female, 65 years old. Chronic low back pain. TECHNIQUE: 3 view(s) of the lumbar spine were obtained. COMPARISON: None _ FINDINGS: Normal lumbar lordosis. There is a mild dextroscoliosis of the lumbar spine. There is a normal alignment of the vertebrae. There is multilevel endplate spondylosis of the lumbar vertebrae. There is multi-level degenerative disc disease with multi-level disc space narrowing. Facet joint osteoarthritis. There is atherosclerotic calcification of the abdominal aorta without a demonstrated aneurysm. IMPRESSION: Degenerative changes of the spine, as detailed above. Electronically Signed: Bayron Payan MD at 10:21 EDT Tel [phone], Service support [phone], RAD/Lumbar Spine 2 or 3 Views IMPRESSION: Degenerative changes of the spine, as detai led above. Electronically Signed: Bayron Payan MD at 10:21 EDT Tel [phone], Service support [phone], CC: Ryan Ortiz MD; Manda Higginbotham MD Python Architect: Signed 13-Oct-2015 Spine Cervical (Routine) Result: Comments: See Note; NOTES: [facility] Imaging Services [address] [place] [address] Verdana 4d Spine Cervical (Routine) MR#: [id number] Acct: [id number] Name: SUSANNE KATE Rep #: [id number] : 1950 F 65 From: Tavo Perez MD PCP: Manda Higginbotham MD Status: REG CLI Study: Spine Cervical (Routine) Date of Exam: 10/13/15 Exam# [id number] Ordering Dr: Ryan Ortiz MD STUDY: MRI CERVICAL SPINE WITHOUT CONTRAST REASON FOR EXAM: Female, 65 years old. Neck pain. No injury. No radiculopathy TECHNIQUE: Standardized fat and water weighted puls e sequences were obtained in the sagittal and axial planes. COMPARISON: None FINDINGS: Normal foramen magnum and brainstem-cervical cord junction. Normal cran iovertebral junction. Normal anterior atlantoaxial articulation. Normal odontoid process. There is straightening of the normal cervical lordosis. Normal vertebral bodies and posterior osseous elemen ts. C2-3: Normal endplates. Normal disc height, signal and morphology. Normal central canal and intervertebral neural foramina. C3-4: Normal endplates. Normal disc height, signal and morphology. N ormal central canal and intervertebral neural foramina. C4-5: There is endplate spondylosis. There is disc desiccation with annular bulge. Normal spinal canal. There is right foraminal stenosis with right uncovertebral arthrosis C5-6: There is endplate spondylosis. There is disc desiccation and disc space narrowing. There is an annular bulge. Normal spinal canal. There is right foraminal steno sis. C6-7: There is endplate spondylosis. There is disc desiccation with disc space narrowing. There is an annular bulge. Normal spinal canal and neural foramina. C7-T1: Normal endplates. Normal d isc height, signal and morphology. Normal central canal and intervertebral neural foramina. Normal cervical cord. Normal visualized soft tissue structures. IM PRESSION: C4-5 degenerative disc disease with annular bulge. Right foraminal stenosis with right uncovertebral arthrosis. C5-6 degenerative disc disease with annular bulge. Right foraminal stenosis . C6-7 degenerative disc disease with annular bulge. Loss of the normal lordosis of the cervical spine. Electronically Signed: Tavo Perez MD, FACR at 19:04 EDT Tel , Service support [phone], CC: Ryan Ortiz MD; Manda Higginbotham MD Python Architect: Signed 19-Jul-2015 Bilat Scrn Digital AND CAD Result: Comments: See Note; NOTES: [facility] Imaging Services [address] [place] [address] Verdana 4d Bilat Scrn Digital AND CAD MR#: [id number] Acct: [id number] Name: SUSANNE TORRES Rep #: [id number] : 1950 F 65 From: Hector Oliveira MD PCP: Manda Higginbotham MD Status: REG CLI Study: Bilat Scrn Digital AND CAD Date of Exam: 07/19/15 Exam# [id number] Ordering Dr: Manda Higginbotham MD MAMMOGRAPHY - BILATERAL SCREENING REASON FOR EXAM: Female, 65 years old. Routine annual screening examination. PERTINENT HISTORY: Non-contributory. TECHNIQUE: Digital ex amination. Mediolateral oblique (MLO) and craniocaudad (CC) views of both breasts were obtained. CAD: CAD was performed on this study. COMPARISON: 07/13/14 FIN DINGS: Breast Composition: There are scattered areas of fibroglandular density. There are no dominant masses or suspicious calcifications. No other significant abnormalities are identified. There h as been no significant change since the prior study. IMPRESSION: Stable bilateral screening mammogram. Yearly follow-up recommended. (A) ASSESSMENT CATEGORY: BIRADS Category 2: Benign. A letter regarding these results will be sent to the patient by the facility within 30 days. BR2 Approximately 10% of breast cancers are not detected by mammography. A normal mammogram should not delay biopsy of a clinically suspicious abnormality. [id number] Electronically Signed: Luis Eduardo Oliveira MD at 15:55 EST Te l , Service support [phone], CC: Manda Higginbotham MD Python Architect: Signed 12-Jul-2015 PT D/C of Non Returning Pt. Result: Comments: See Note; NOTES: [facility] [address] [place] [address]. [address] [place], [place] [address] Fax REHABILITATION SE RVICES DISCHARGE SUMMARY MR#: [id number] Acct: [id number] Name: SUSANNE TORRES Rep #: [id number] : 1950 65 From: Tatiana Wagner Referring DrJayden: Chirag Lee DPM Status: PRE RCR Eval Date: Discharge Date: HP - Discharge Summary - Patient Information SUSANNE TORRES was seen in my office for initial evaluation on 03/15/15. The following Plan of Care was establish ed for this patient: Initial Duration: 4-6 Weeks - Anticipated Interventions Patient/Client Instruction: Educate patient on: Plan of Care Therapeutic Exercise to Include: Strength training, Balanc e training, Flexibilty training, Gait and locomotor training Functional Training to Include: Gait training This patient was last seen in our office 04/05/15. Pertinent comments regarding their Physica l therapy will appear below: Pt cancelled all of her appointments as she wanted her fractures to heal before finishing PT At this point I will be discontinuing this patient from physical therapy. I would be happy to see this patient again in the future if found appropriate by the physician. Thank you! Tatiana Wagner <Electronically signed by Tatiana Wagner > 07/12/15 1559 CC: Manda Higginbotham MD; Chirag Lee DPM Signed 13-Jun-2015 Chest PA and Lateral Result: Comments: See Note; NOTES: [facility] Imaging Services [address] [place] [address] Verdana 4d Chest PA and Lateral MR#: [id number] Acct: [id number] Name: SUSANNE PADILLA Rep #: [id number] : 1950 F 65 From: Bayron Payan MD PCP: Manda Higginbotham MD Status: REG CLI Study: Chest PA and Lateral Date of Exam: 06/13/15 Exam# [id number] Ordering Dr: Marlen Rosenbaum STUDY: X-RAY CHEST REASON FOR EXAM: Female, 65 years old. Abnormal blood test. TECHNIQUE: PA and lateral views of the chest. COMPARISON: None. FINDINGS: The lungs are clear and expanded. Scattered calcified granulomas. There is no demonstrated pleural abnormality. Normal size heart. Normal mediastinum and robe. Normal visualized pulmon loco arteries. Normal visualized aortic arch and descending thoracic aorta. There are diffuse degenerative changes of the visualized thoracic spine. Dextroscoliosis. Normal visualized ribs, clavicles , and shoulders. There is no demonstrated abnormality of the visualized soft tissue structures of the upper abdomen. IMPRESSION: No acute abnormality is seen. Electronically Signed: Bayron Payan MD at 14:40 EST Tel [phone], Service support [phone], 0079 RAD/Chest PA and Lateral IMPRESSION: No acute abnormality is seen. Electronically Signed: Bayron Payan MD at 14:40 EST Tel [phone], Service support [phone], CC: Marlen Rosenbaum; Manda Higginbotham MD Python Architect: Signed 14-May-2015 Operative Report Result: Comments: See Note; NOTES: [facility] Medical Records Department [address] [place] [address] Operative Report MR#: [id number] Acct: [id number] Name: MARYANA TORRES Rep #: [id number] : 1950 65 From: Deion Gomez MD PCP: Manda Higginbotham MD Status: [facility] DATE OF SERVICE: 05/13/2015 DATE OF SERVICE: May 13, 2015 PREOPERATIVE DIAGNOSIS: Right ureterolithiasis. POSTOPERATIVE DIAGNOSIS: Right ureterolithiasis. PROCEDURES: Cystoscopy, ureteral dilation, laser lithotripsy, ureteroscopy, no stent. INDICATION: This patient has had multiple stones presents at this time with a high-grade obstruction. She has been trying to pass the stone, continues to have pain and is brought at this time for ureteroscopy, laser lithotripsy. D ESCRIPTION OF PROCEDURE: The patient was preloaded with antibiotics, had scuds in place. She was taken to the operating room where she was placed in lithotomy position, prepped and draped in sterile technique after being placed under general anesthesia per endotracheal tube by Cecilia Valera and by Dr. Chaudhry. At this point, retrograde was performed showing the stone to be very distally. It w as poorly visible on fluoroscopy. Had been seen that on simple KUB, but a guidewire was able to be placed there. It was located at the ureteral hiatus. I was finally able to get a guidewire past this, then, a 12-Maori ureteral balloon dilator and the distal ureter was dilated. After several minutes, it was removed with the guidewire left in place. Using a rigid ureteroscope, I was able to encount er the stone fairly easily and using a 400 micron fiber at 0.8 joules 12 Hz for a total of 1 minute with 700 pulses and 360 joules to break up the stone into multiple small tiny fragments. At this po int, they were all flushing out through the ureter. Easily elected not to leave a stent behind. It had been discussed with the patient and there is minimal trauma then to the ureter and subsequently, procedure was terminated at this point. The patient was awakened and taken to recovery room in stable condition. Deion Gomez MD T: NTS JOB: [id number] 05/14/15 1121 <Electronically si gned by Deion Gomez MD> Date Deion Gomez MD Cosigner Signature (If Indicated): Date CC: Manda Higginbotham MD; Deion Gomez MD Date Dictated: 05/13/151357 Date Transcribed: 05/13/151357 Python Architect: Signed 13-May-2015 Discharge Instruction Result: Comments: See Note; NOTES: [facility] Medical Records Department [address] [place] [address] Instructions for Home/Discharge Instructions 05/13/15 1400 MR#: [id number] Acct: [id number] Name: SUSANNE TORRES Rep #: [id number] : 1950 65 From: Deion Gomez MD PCP: Manda Higginbotham MD Status: [place] [facility] [place] Diet: No Restrictions Discharge Activ ity: May Not Drive - UNTIL TOMORROW, May not drive while taking narcotic pain medications., May Shower Return to work on:: 05/16/15 Call your doctor if you observe: Fever of 101 or Higher, Coldness, Increased Pain, Inability to urinate Allergies/Adverse Reactions: Allergies Sulfa (Sulfonamide Antibiotics) Allergy (Verified 05/13/15 12:16) Rash Medications to take at Discharge Bupropion HC l [Bupropion Xl] 150 mg PO DAILY 12/30/14 Buspirone HCl [Buspar] 30 mg PO DAILY 12/30/14 Docusate Sodium [Colace] 200 mg PO DAILY 12/30/14 Fentanyl [Duragesic] 50 mcg TRANSDERM. Q72H 12/30/14 Hydrox ychloroquine [Plaquenil] 200 mg PO BIDCM 12/30/14 Naratriptan HCl [Amerge] 2.5 mg PO PRN PRN 12/30/14 Omeprazole [Prilosec] 20 mg PO DAILY 12/30/14 Ondansetron [Zofran Odt] 4 mg PO Q8H PRN PRN Polyethylene Glycol 3350 [Miralax] 17 gm PO DAILY 12/30/14 Teriparatide [Forteo] 20 mcg SQ DAILY 12/30/14 Trazodone HCl [Desyrel] 50 mg PO QHS 12/30/14 Wheat Dextrin [Benefiber] 1 each PO DAILY 0 12/30/14 Hydrocodone/Acetaminophen [Vicodin 5-300 mg Tablet] 1 tablet PO Q6H PRN PRN #20 tablet 12/31/14 Tamsulosin HCl [Flomax] 0.4 mg PO BID 05/12/15 Please Follow Up With: Deion Gomez - [phone] When: CALL SOON FOR AN APPT IN FEW WKS, TO PAGE 05/13/15 3194 <Electronically signed by Deion Gomez MD> Date Deion Gomez MD CC: Manda Higginbotham MD 12-May-2015 Abdomen Single View Result: Comments: See Note; NOTES: [facility] Imaging Services [address] [place] [address] Verdana 4d Abdomen Single View MR#: [id number] Acct: [id number] Name: SUSANNE RAMIREZ Rep #: [id number] : 1950 F 65 From: Jack Calderon MD PCP: Manda Higginbotham MD Status: REG CLI Study: Abdomen Single View Date of Exam: 05/12/15 Exam# [id number] Ordering Dr: Deion Hernandez MD STUDY: X-RAY - ABDOMEN/PELVIS REASON FOR EXAM: Female, 65 years old. Right-sided kidney stone TECHNIQUE: Single AP view of the abdomen / pelvis. COMPARISON: May 02, 2015 __ FINDINGS: There is an abundance of fecal material throughout the colon. There is no demonstrated free abdominal air. 5 mm left renal stone is seen. Benign-appe aring calcification in right pelvis. There are diffuse degenerative changes of the visualized lumbar spine. Surgical clips in left pelvis. IMPRESSION: 5 mm left renal stone. Electronically Signed: Jack Calderon MD at 23:58 EDT Tel [phone], Service support [phone], RAD/Abdomen Single View IM PRESSION: 5 mm left renal stone. Electronically Signed: Jack Calderon MD at 23:58 EDT Tel [phone], Service support [phone], CC: Manda Higginbotham MD; Deion Gomez MD Python Architect: Signed 02-May-2015 Abdomen Single View Result: Comments: See Note; NOTES: [facility] Imaging Services [address] [place] [address] Radiology Report MR#: [id number] Acct: [id number] Name: SUSANNE TORRES Re p #: [id number] : 1950 F 65 From: Hector Cervantes MD PCP: Manda Higginbotham MD Status: REG CLI Study: Abdomen Single View Date of Exam: 05/02/15 Exam# [id number] Ordering Dr: Deion Gomez MD STUDY: X-RAY - ABDOMEN/PELVIS REASON FOR EXAM: Female, 65 years old. Recheck right-sided stone. TECHNIQUE: Single AP view of the abdomen / pelvis. COMPARISON: 2 AP supine views of the abdomen and pelvis September 24, 2014. FINDINGS: Non-visualized lung bases. There is a nonspecific pattern of gas in nondistended segments of small bowel and colon. A pair of surgical clips again project in the left pelvic soft tissues The visualized liver, spleen and kidneys are grossly normal in size and morphology. 5 mm stone in left kidney is again seen projecting ju st below the medial third of the left 11th rib. Calcifications in the right pelvic soft tissues near the level of the iliac spine are new since prior study. There are stable degenerative changes of the visualized lumbar spine. IMPRESSION: 1. 5 mm stone projecting at the upper pole of left kidney is unchanged. 2. New cluster of small calcifications in the r ight pelvic soft tissues. This could represent calcific material in the bowel, new ureteral stones, phleboliths, artifact, or other soft tissue calcification could have this appearance. 3. Nonspecif ic bowel gas pattern. Electronically Signed: Luis Eduardo Cervantes MD at 16:59 EDT , Service support [phone], RAD/Abdomen Sing le View IMPRESSION: 1. 5 mm stone projecting at the upper pole of left kidney is unchanged. 2. New cluster of small calcifications in the right pelvic soft tissues. This could represent calcific mat erial in the bowel, new ureteral stones, phleboliths, artifact, or other soft tissue calcification could have this appearance. 3. Nonspecific bowel gas pattern. Electronically Signed: Luis Eduardo millard MD at 16:59 EDT , Service support [phone], CC: Manda Higginbotham MD; Deion Gomez MD Python Architect: Signed 29-Mar-2015 Extremity Lower without Contra Result: Comments: See Note; NOTES: [facility] Services [address] [place] [address] CAT Scan Report MR#: [id number] Acct: [id number] Name: SUSANNE TORRES Rep #: [id number] : 1950 F 65 From: Roselia Huerta MD PCP: Manda Higginbotham MD Status: REG CLI Study: Extremity Lower without Contra Date of Exam: 03/29/15 Exam# [id number] Ordering Dr: Chirag Lee DPM STUDY: CT RIGHT FOOT REASON FOR EXAM: Female, 65 years old. Knee pain. Patient has history of fifth metatarsal fracture. RADIATION DOSAGE (If Supplied By Facility): CTDIvol = ( 15.07 ) mGy, DLP = ( 416.13 ) mGycm TECHNIQUE: Thin section transaxial imaging of the foot was obtained, with sagittal and coronal reconstructed images. COMPARISON: None. FINDINGS: Normal talus, calcaneus, and tarsal bones. Normal visualized tibiotalar, subtalar, talonavicular, calcaneocuboid, tarsal and tarsometatarsal articulations. There is a partially threade d screw extending in the proximal part of the fifth metatarsal. There is 50% bony bridging at the fracture site. Degenerative arthrosis is noted in the metatarsophalangeal joint of the great toe. De generative changes are noted in the tibial and fibular sesamoid bones. Normal interphalangeal joint of the great toe. Normal phalanges of the great toe. Normal second through fifth metatarsophalange al joints. Normal interphalangeal joints and phalanges of the lesser toes. There is a plantar calcaneal spur. IMPRESSION: 50% bony bridging of the fracture sit e of the proximal part of the fifth metatarsal. Electronically Signed: Jair Huerta MD at 13:47 EDT Tel , Service support [phone], CC: Manda guevara MD; Chirag Lee DPM Python Architect: Signed 22-Mar-2015 Inital Evaluation - PT Result: Comments: See Note; NOTES: [facility] [address] [facility] [place] [address] Fax REHABILITATION SERVICES INITIAL EVALUATION MR#: [id number] Acct: [id number] Name: SUSANNE TORRES Rep #: [id number] : 1950 65 From: Tatiana Wagner Referring Dr.: Chirag Lee DPM Status: DIS RCR Insura nce: [employer] PPO Eval Date: Patient's Visit Information SUSANNE TORRES is a 65 year old F, referred to Physical Therapy by Chirag Lee,, with a diagnosis of R s/p ORIF 5th meta tarsal. Date of Evaluation: 03/15/15 Physical Therapist: Tatiana Wagner - Visit Plan Frequency: 2-3x /Week Duration: 4-6 Weeks - Subjective Had an injury on December 24 and surgery on December 31. [place] and fractured a bone. Pt had been NWB X 1 month and then went in a walking boot. Last time went inti Dr office and he said to wean off the carlo ot but was more painful. Dr thinking more nerve pain and to keep wearing the boot. Follow up on Apr 12. no N AND T. Increase pain up and down stairs. gave no exercises. No additional meds or pain meds. A little of balance issues. Sometimes weaving with gait. Fallen 1-2X. - Objective Pt has increase pain with any weightbearing through Right foor. When she goes to take a step pt has pain acr oss the top of the foot with push off and across the 5th met head with increase weightbearing. R ankle AROM: DF 0, PF 40, INV 38, EV 8. L ankle AROM: DF 13, PF 46, INV 39, EV 15. Figure 8 R 51.2 abd L 50.5. Unable to SLB on the R due to pain. Pt is able to heel raise with 1/2 normal ROM with increase pain. Pt is able to Toe raise on the Right without pain. - Goals Goal 1:: I HEP Goal Time Fram e: 2 Weeks Goal 2:: Decrease pain to 0/10 with everyday walking out of the walking boot with a normal gait pattern. Goal Time Frame: 4-6 Weeks Goal 3:: Increase R ankle AROM to within normal limints of the L Goal Time Frame: 4-6 Weeks Goal 4:: Increase R ankle strength by 1/2 muscle grade by D/C and be able to heel and toe raise without pain or weakness present Goal Time Frame: 4-6 Weeks - Roldan abilitation Potential Rehabilitation Potential: Good - Anticipated Interventions Patient/Client Instruction: Educate patient on: Plan of Care For the Purpose of:: To improve muscle performance and motor function, To increase tolerance to activity/condition/position, To improve gait and locomotor functions, To improve balance Therapeutic Exercise to Include: Strength training, Balance training, F lexibilty training, Gait and locomotor training For the Purpose of:: To improve muscle performance and motor function, To improve gait and locomotor functions, To increase flexibility/ROM, To improve balance, To improve safety with gait, To improve safety Functional Training to Include: Gait training For the Purpose of:: To improve muscle performance and motor function, To increase flexibility/ R OM, To improve balance, To improve safety with gait Thank you for the opportunity to evaluate your patient. For Medicare and Medicare HMO plans, please review the plan of care and approve it. It will need to be FAXED BACK to us at [phone] for Medicare purposes. Please let me know if there are questions or concerns regarding this plan of care. Physician Signature: Date: <Electronically signed by Tatiana Wagner > 03/22/15 1556 CC: Manda Higginbotham MD; Chirag Lee DPM Signed For Medicare only, by signing this I certify the plan of care. Physicians Signature Date 31-Dec-2014 Operative Report Result: Comments: See Note; NOTES: [facility] Medical Records Department [address] [place] [address] Operative Report MR#: [id number] Acct: [id number] Name: SUSANNE TORRES Rep #: [id number] : 1950 64 From: Chirag Lee DPM PCP: Manda Higginbotham MD Status: [facility] DATE OF SERVICE: 12/31/2014 DATE OF SERVICE: December 31, 2014. SURGEON: Iona Philippe ASSISTANTS: None. ANESTHESIA: General anesthesia. PREOPERATIVE DIAGNOSIS: Fifth metatarsal fracture, right foot. POSTOPERATIVE DIAGNOSIS: Fifth metatarsal fracture, right foot. PROCE DURE: Open reduction and internal fixation of fifth metatarsal fracture, right foot. HEMOSTASIS: Right ankle pneumatic tourniquet set at 250 mmHg for 40 minutes. ESTIMATED BLOOD LOSS: Less than 1 mL. MATERIALS: One [employer] 5.5 mm partially threaded screw with 1 washer both of which were stainless steel also 4-0 Vicryl and 3-0 nylon. INJECTABLES: 20 mL and 0.5% Marcaine plain. SP ECIMENS: None. COMPLICATIONS: None. INDICATIONS: This is a 64-year-old female who sustained a right fifth metatarsal fracture. She is extremely active and on her feet quite a bit. This fracture did have some gapping present and was a complete fracture. We reviewed conservative and surgical options with her in great detail. She elected to proceed forward with surgical intervention of open red uction and internal fixation of the fifth metatarsal fracture on the right foot. The risks and potential complications were reviewed with her and advised her that these include but not limited to tran n, swelling, nonhealing, delayed healing, infection, wound dehiscence, wound complications, neuritis, numbness, chronic pain, complex regional pain syndrome, blood clots, loss of strength, loss of fun ction, deformity, need for further surgical procedures, symptomatic hardware, failure of hardware, loss of limb, loss of life. She was able to repeat these back. All questions were answered. Again the alternative options were reviewed. She expressed understanding and agreement. She reviewed the consent form and freely signed it. OPERATIVE PROCEDURE: The patient was brought back into the operati ng room and was placed on to the operating room table in a supine position. A safety belt was carefully placed around her waist to secure her to the operating room table. A well-padded right ankle pne umatic tourniquet was applied. The patient received 2 g of intravenous Ancef for antibiotic prophylaxis preoperatively. The patient received general anesthesia per the anesthesiologist. The right diomedes t was scrubbed, prepped and draped in the usual aseptic fashion. The right foot was exsanguinated using an Esmarch bandage and the right ankle pneumatic tourniquet was inflated to 250 mmHg which remai paul at this level for 40 minutes. At this time,a K-wire was placed from the base of the fifth metatarsal through the shaft of the fifth metatarsal on the right foot. Intraoperative fluoroscopy confirm ed proper placement. This was done percutaneously and then using #15 scalpel blade a 1 cm linear longitudinal skin incision was made just proximal to the base of fifth metatarsal where the K-wire was exiting the foot. Careful, blunt dissection was completed down to the base of the fifth metatarsal. Using rigid open reduction and internal fixation technique one 5.5 mm screw was placed across the f [facility] metatarsal fracture site intramedullary. Of noted however first a 4.5 mm screw was used, but there was noted to be lack of good bite. It was noted that the bone of the fifth metatarsal was softe r than normal and there was not good purchase with the 4.5mm screw, as the screw head sank into the bone. Thus, the screw size was increased to a 5.5mm. The 5.5mm was placed and again noted that sank right into the bone so a washer was used so that the screw head do not sink abnormally into the bone. Once the screw and washer were placed, there was noted to be a good stability and rigid fixatio n of the fifth metatarsal fracture. The fifth metatarsal fracture site was in good alignment. At this point, a surgical site was stable, it was flushed using copious amount of normal saline solution. The deep soft tissue was reapproximated using 4-0 Vicryl and the skin was reapproximated using 3-0 nylon. A dressing was applied which consisted of bacitracin, Adaptic, 4 x 4 gauze, Webril and an Romulo bandage. The pneumatic tourniquet was deflated and there was immediate return of warmth and perfusion to the right foot. There is normal capillary time and normal temperature gradient. Capillary refi ll time was less than 2 seconds of all 5 toes. Should also been noted that prior to placing the dressing 20 mL of 0.5% Marcaine plain given around the surgical site for postoperative anesthesia. Intr aoperative fluoroscopy was used throughout this case to verify proper reduction and placement of the screw. Images were saved and printed. Also all vital structures including all vital neurovascular s tructures to the area were properly identified retracted and protected as necessary. The patient tolerated the above procedure well and anesthesia well with no complications. She was transported from the operating room to the recovery room with vital signs stable and in good condition. Postoperative orders were placed and instructions were reviewed with her both verbally and written. She is to re main nonweightbearing to the right foot. Keep the dressing clean, dry and intact. I also talked with Dr. Ortiz. She does take Fentanyl patch and Dr. Ortiz said it was okay for Vicodin to be added po stoperatively 1 tablet 5/300 mg by mouth every 6 hours as needed for pain. She will follow up within 1 week or sooner if needed. Chirag Lee DPM T: TITI JOB: [id number] 12/31/14 1603 &# 60;Electronically signed by Chirag Lee DPM> Date Chirag Lee DPM CC: Manda Higginbotham MD; Sunday Lee MD Date Dictated: 06/07/05 915 Date Transcribed: 12/31/14914 Python Architect: Signed 31-Dec-2014 Foot 2 Views Result: Comments: See Note; NOTES: [facility] Imaging Services [address] [place] [address] Radiology Report MR#: [id number] Acct: [id number] Name: SUSANNE TORRES Rep #: [id number] : 1950 F 64 From: Bayron Payan MD PCP: Manda Higginbotham MD Status: [facility] Study: Foot 2 Views Date of Exam: 12/31/14 Exam# [id number] Ordering Dr: Chirag Lee DPM STUD Y: X-RAY - RIGHT FOOT CLINICAL: Female, 64 years old. The patient is status post ORIF of the fifth metatarsal fracture. TECHNIQUE: 2 view(s) of the foot. COMPARISON: Comparison is made with prior radiograph done earlier in the day. FINDINGS: There is a plantar calcaneal spur. Normal visualized subtalar, talonavicular, calcaneocuboid, tarsal and tarsom etatarsal articulations. The patient is status post screw fixation of the transverse fracture at the base of the fifth metatarsal. There is good alignment. IMPR ESSION: Satisfactory ORIF of the transverse fracture of the base of the fifth metatarsal. Electronically Signed: Bayron Payan MD at 13:09 EDT Tel [phone], Service support [phone], RAD/Foot 2 Views IMPRESSION: Satisfactory ORIF of the transverse fracture of the base of the fifth metatarsal. Electronically Signed: Bayron sosa MD at 13:09 EDT Tel [phone], Service support [phone], CC: Manda Higginbotham MD; Sunday Lee MD Python Architect: Signed 31-Dec-2014 Discharge Instruction Result: Comments: See Note; NOTES: [facility] Medical Records Department [address] [place] [address] Instructions for Home/Discharge Instructions 12/31/1432 MR#: [id number] ct: [id number] Name: SUSANNE TORRES Rep #: [id number] : 1950 64 From: Chirag Lee DPM PCP: Manda Higginbotham MD [place] [facility] [place] Diet: Light diet - advance as tolerated D ischarge Activity: May Not Drive, - - Use Knee Walker Weight Bearing Status: No weight bearing - No weightbearing right foot Keep extremity elevated above heart level: Right Leg Call your doctor if y our incision/area has: Increased Pain/ Swelling Call your doctor if you observe: Fever of 101 or Higher, Coldness, Increased Pain, Shortness of breath, Chest pain, Calf discomfort, Uncontrolled pain C leanse incision/area with: Do not get Incision Wet, Keep Dressing Clean AND Dry Allergies/Adverse Reactions: Allergies Sulfa (Sulfonamide Antibiotics) Allergy (Verified 12/30/14 12:05) Rash Medi cations to take at Discharge Bupropion HCl [Bupropion Xl] 150 mg PO DAILY Buspirone HCl [Buspar] 30 mg PO DAILY Docusate Sodium [Colace] 200 mg PO DAILY Fentanyl [Duragesic] 50 mcg TRANSDERM. Q72H Hydroxychloroquine [Plaquenil] 200 mg PO BIDCM Naratriptan HCl [Amerge] 2.5 mg PO PRN PRN Omeprazole [Prilosec] 20 mg PO DAILY Ondansetron [Zofran Odt] 4 mg PO Q8H PRN PRN Polyethylene Glycol 3350 [Miralax] 17 gm PO DAILY Teriparatide [Forteo] 20 mcg SQ DAILY Trazodone HCl [Desyrel] 50 mg PO QHS Wheat Dextrin [Benefiber] 1 each PO DAILY Please Follow Up With: hCirag Lee When: within 1 week, sooner if needed 12/31/14 0834 <Electronically signed by Chirag Lee DPM> Date Chirag Lee DPM CC: Manda Higginbotham MD 30-Dec-2014 Foot 2 Views Result: Comments: See Note; NOTES: [facility] Imaging Services [address] [place] [address] Radiology Report MR#: [id number] Acct: [id number] Name: SUSANNE TORRES Rep #: [id number] : 1950 F 64 From: Bayron Payan MD PCP: Manda Higginbotham MD Status: [facility] Study: Foot 2 Views Date of Exam: 12/31/14 Exam# [id number] Ordering Dr: Chirag Lee DPM STUD Y: X-RAY - RIGHT FOOT CLINICAL: Female, 64 years old. Status post open reduction and internal fixation of the fifth metatarsal fracture. TECHNIQUE: 3 view(s) of the foot were obtained intraoperativ nati.. COMPARISON: None. FINDINGS: The patient is status post single screw fixation of the transverse fracture at the base of the fifth metatarsal. There is goo d alignment. IMPRESSION: Satisfactory reduction of the transverse fracture at the base of the fifth metatarsal with screw fixation. Electronically Signed: Morgan Payan MD at 13:02 EDT Tel [phone], Service support [phone], RAD/Foot 2 Views IMPRESSION: Satisfactory reduction of the transvers e fracture at the base of the fifth metatarsal with screw fixation. Electronically Signed: Bayron Payan MD at 13:02 EDT Tel [phone], Service support [phone], Fax CC: Manda Higginbotham MD; Sunday Lee MD Python Architect: Signed 24-Sep-2014 Abdomen Single View Result: Comments: See Note; NOTES: [facility] Imaging Services [address] [place] [address] Radiology Report MR#: [id number] Acct: [id number] Name: SUSANNE TORRES Rep #: [id number] : 1950 F 64 From: Agustin Washington MD PCP: Manda Higginbotham MD Status: REG CLI Study: Abdomen Single View Date of Exam: 09/24/14 Exam# [id number] Ordering Dr: Deion Gomez MD UDY: X-RAY - ABDOMEN/PELVIS REASON FOR EXAM: Female, 64 years old. Renal stones TECHNIQUE: Single AP view of the abdomen / pelvis. COMPARISON: CT scan 08/04/14 FINDINGS: There is an unremarkable bowel gas pattern. There is no demonstrated free abdominal air. There is a 5 mm calcification consistent with a left upper pole stone. No other definite renal stones, but the exam is limited by overlying fecal material and air. Normal soft tissue structures. Normal visualized osseous structures. IMPRESSION: 5 mm left upper pole stone. Other renal stones are not seen but not excluded. Electronically Signed: Agustin Washington MD at 17:02 EST Tel , Service support [phone], Fax RAD/Abdomen Single View IMPRESSION: 5 mm left upper pole stone. Other renal stones are not seen but not excluded. Electronically Signed: Agustin Washington MD at 17:02 EST Tel , Service support [phone], CC: Manda Higginbotham MD; Deion Gomez MD Python Architect: Signed 04-Aug-2014 Abdomen/Pelvis without Cont Result: Comments: See Note; NOTES: [facility] Imaging Services [address] [place] [address] CAT Scan Report MR#: [id number] Acct: [id number] Name: SUSANNE TORRES Rep #: [id number] : 1950 F 64 From: Bayron Payan MD PCP: Manda Higginbotham MD Status: REG CLI Study: Abdomen/Pelvis without Cont Date of Exam: 08/04/14 Exam# [id number] Ordering Dr: Deion Gomez MD STUDY: CT ABDOMEN AND PELVIS WITHOUT CONTRAST REASON FOR EXAM: Female, 64 years old. Lower abdominal pain. RADIATION DOSAGE (If Supplied By Facility): CTDIvol = ( 14.76 ) mGy, DLP = ( 646.53 ) mGycm TECHNIQUE: Transaxial images were obtained from the dome of the diaphragm to the symphysis pubis without oral contrast, and without intravenous contrast. Sagittal and coronal images were re constructed. COMPARISON: Comparison is made with prior study dated August 26, 2009. FINDINGS: Minimal linear scarring at the left lung base. Coronary artery c alcification. There is inhomogeneous appearance of the liver along its anterior medial aspect of the right lobe correlation with ultrasound or intravenous contrast administration examination is sveta mmended for further evaluation. The patient is status post cholecystectomy. Normal spleen. Normal pancreas. Normal bilateral adrenal glands. There is a 3 mm calculus in the upper pole calyx of the right kidney. There is a 4.2 mm calculus in the anterior midportion of the left kidney. There is no evidence of hydronephrosis. Normal visualized stomach. Normal small intestine. Normal colon. The patient is status post appendectomy. There is diffuse atherosclerotic calcification of the abdominal aorta, without a demonstrated aneurysm. Normal inferior vena cava. Normal retroperitoneum. Nor mal urinary bladder. There is absence of the uterus consistent with a prior hysterectomy. Normal abdominal wall. There are diffuse degenerative changes of the visualized lumbar spine. IMPRESSION: Nonobstructive bilateral intrarenal calculi. Inhomogeneous appearance of the medial aspect of the right lobe of the liver as described. Electronically Signed: Bayron Payan MD at 11:33 EST Tel [phone], Service support [phone], CC: Manda Higginbotham MD; Deion Gomez MD Python Architect: Signed 13-Jul-2014 Vert Fx Asess/Lat Bone Den(H) Result: Comments: See Note; NOTES: [facility] Imaging Services [address] [place] [address] Bone Density Report MR#: [id number] Acct: [id number] Name: SUSANNE TORRES Rep # : [id number] : 1950 F 64 From: Bayron Payan MD PCP: Manda Higginbotham MD Status: REG CLI Study: Vert Fx Asess/Lat Bone Den(H) Date of Exam: 07/13/14 Exam# [id number] Ordering Dr: Iona Higginbotham MD STUDY: DUAL ENERGY X-RAY ABSORPTIOMETRY / DXA REASON FOR EXAM: Female, 64 years old. The patient is postmenopausal. TECHNIQUE: Bone Mineral Density (BMD) measurements of lumbar spine and bilateral hips were obtained. COMPARISON: Comparison is made with prior study dated June 26, 2012. FINDINGS: Lumbar Spine (L1-L4): g/cm2 (0.886) / T-score (-2.6) / Z-score (-1.0) Findings are suggestive of osteopenia with a moderate fracture risk. Left Femur Total: g/cm2 (0.830) / T-score (-1.4) / Z-score (- 0.2) Left Femoral Neck: g/cm2 (0.789) / T-sc ore (-1.8) / Z-score (-0.3) Right Femur Total: g/cm2 (0.785) / T-score (-1.8) / Z-score (-0.6) Right Femoral Neck: g/cm2 (0.848) / T-score (-1.4) / Z-score (0.1) The T-Scores on the most recent prio r examination were: Lumbar Spine (L1-L4): There has been worsening of bone density since the previous examination. Left Femur Total: which represents a worsening of 3.4%. Right Femur Total: which represents a worsening of 6.5%. IMPRESSION: The patient is considered osteopenic as outlined below according to World Nayan Organization (WHO) criteria with a mo derate fracture risk. There has been worsening of bone density since the previous examination. Reference Information: The T-score is the number of standard melony ations above or below the standard which is normal for young adults at their peak bone mineral density. The World Health Organization (WHO) interprets the T-scores as follows: Above -1 Normal bone density Between -1 and -2.5 Osteopenia Equal to / or below -2.5 Osteoporosis As a practical clinical guideline, osteopenia may be graded as follows: Mild -1 through -1.5 Moderate -1.6 through -2.0 Severe -2.1 through -2.4 The Z-score is the number of standard deviations above or below age-matched controls. A Z-score of less than -1.5 would be considered abnormal. References: 1. NIH Osteop orosis and Related Bone Diseases http://www.osteo.org 2. International Society for Clinical Densitometry http://www.iscd.org 3. National Osteoporosis Foundation http://www.nof.org Electronically Sig paul: Bayron Payan MD at 13:17 EST Tel [phone], Service support [phone], CC: Manda Higginbotham MD Python Architect: Signed 13-Jul-2014 Vert Fx Asess/Lat Bone Den(H) Result: Comments: See Note; NOTES: [facility] Imaging Services [address] [place] [address] Bone Density Report MR#: [id number] Acct: [id number] Name: SUSANNE TORRES Rep # : [id number] : 1950 F 64 From: Bayron Payan MD PCP: Manda Higginbotham MD Status: REG CLI Study: Vert Fx Asess/Lat Bone Den(H) Date of Exam: 07/13/14 Exam# [id number] Ordering Dr: Iona Higginbotham MD ADDENDUM by Bayron Payan MD on 08/03/14 at 0947 ADDENDUM This is an addendum r eport. A vertebral assessment study was obtained as well. There is moderate degree of loss of height of the T7 vertebrae. Minimal loss of white of the superior plate of the T11 vertebrae. Electron ically Signed: Bayron Payan MD at 9:47 EST Tel [phone], Service support [phone], 08/03/14 09 Date cc: Manda Higginbotham MD * Signed STUDY: DUAL ENERGY X-RAY ABSORPTIOMETRY / DXA REASON FOR EXAM: Female, 64 years old. The patient is postmenopausal. TECHNIQUE: Bone Mineral Density (BMD) measurements of lumbar spine and bilater al hips were obtained. COMPARISON: Comparison is made with prior study dated June 26, 2012. FINDINGS: Lumbar Spine (L1-L4): g/cm2 (0.886) / T-score (-2.6) / Z-score (-1.0) Findings are suggestive of osteopenia with a moderate fracture risk. Left Femur Total: g/cm2 (0.830) / T-score (-1.4) / Z-score (-0.2) Left Femoral Neck: g/cm2 (0.789) / T-score (-1. 8) / Z-score (-0.3) Right Femur Total: g/cm2 (0.785) / T-score (-1.8) / Z-score (-0.6) Right Femoral Neck: g/cm2 (0.848) / T-score (-1.4) / Z-score (0.1) The T-Scores on the most recent prior examin ation were: Lumbar Spine (L1-L4): There has been worsening of bone density since the previous examination. Left Femur Total: which represents a worsening of 3.4%. Right Femur Total: which represen ts a worsening of 6.5%. IMPRESSION: The patient is considered osteopenic as outlined below according to World Nayan Organization (WHO) criteria with a moderate f racture risk. There has been worsening of bone density since the previous examination. Reference Information: The T-score is the number of standard deviations a manohar or below the standard which is normal for young adults at their peak bone mineral density. The World Health Organization (WHO) interprets the T-scores as follows: Above -1 Normal bone density Between -1 and -2.5 Osteopenia Equal to / or below -2.5 Osteoporosis As a practical clinical guideline, osteopenia may be graded as follows: Mild -1 through -1.5 Moderate -1.6 through -2.0 Severe -2.1 through -2.4 The Z-score is the number of standard deviations above or below age-matched controls. A Z-score of less than -1.5 would be considered abnormal. References: 1. NIH Osteoporosis a nd Related Bone Diseases http://www.osteo.org 2. International Society for Clinical Densitometry http://www.iscd.org 3. National Osteoporosis Foundation http://www.nof.org Electronically Signed: Michael Payan MD at 13:17 EST Tel [phone], Service support [phone], CC: Manda Higginbotham MD Python Architect: Signed 13-Jul-2014 [employer] Digital AND CAD Result: Comments: See Note; NOTES: [facility] Imaging Services [address] [place] [address] Breast Imaging Report MR#: [id number] Acct: [id number] Name: SUSANNE TORRES Rep #: [id number] : 1950 F 64 From: Hector Oliveira MD PCP: Manda Higginbotham MD Status: REG CLI Study: Pauline Tsang Digital AND CAD Date of Exam: 07/13/14 Exam# [id number] Ordering Dr: Manda Higginbotham MD MAMMOGRAPHY - BILATERAL SCREENING REASON FOR EXAM: Female, 64 years old. Routine annual screening examination. PERTINENT HISTORY: Non-contributory. TECHNIQUE: Digital examination. Mediolateral oblique (MLO) and craniocaudad (CC) views of both breasts were obtained. CAD: CAD was performed on this study. COMPARISON: 07/09/13 FINDINGS: Breast Composit ion: There are scattered areas of fibroglandular density. There are no dominant masses or suspicious calcifications. No other significant abnormalities are identified. There has been no significant change since the prior study. IMPRESSION: Stable bilateral screening mammogram. Yearly follow-up recommended. (A) ASSESSME NT CATEGORY: BIRADS Category 2: Benign. A letter regarding these results will be sent to the patient by the facility within 30 days. BR2 Approximately 10% of breast cancers are not detected by christopher mography. A normal mammogram should not delay biopsy of a clinically suspicious abnormality. Electronically Signed: Luis Eduardo Oliveira MD at 15:14 EST Tel [phone], Service support , CC: Manda Higginbotham MD Python Architect: Signed 13-Jul-2014 Dexa Bone Density Study (HP) Result: Comments: See Note; NOTES: [facility] Imaging Services [address] [place] [address] Bone Density Report MR#: [id number] Acct: [id number] Name: SUSANNE TORRES Rep # : [id number] : 1950 F 64 From: Bayron Payan MD PCP: Manda Higginbotham MD Status: REG CLI Study: Dexa Bone Density Study (HP) Date of Exam: 07/13/14 Exam# [id number] Ordering Dr: Ap Higginbotham MD STUDY: DUAL ENERGY X-RAY ABSORPTIOMETRY / DXA REASON FOR EXAM: Female, 64 years old. Early menopause. TECHNIQUE: Bone Mineral Density (BMD) measurements of lumbar spine and bilateral hips were obtained. COMPARISON: Comparison is made with prior study dated June 26, 2012. FINDINGS: Lumbar Spine (L1- L4): g/cm2 (0.886) / T-score (-2.6) / Z-scor e (-1.0) Findings are suggestive of osteopenia with a moderate fracture risk. Left Femur Total: g/cm2 (0.830) / T-score (-1.4) / Z-score (-0.2) Left Femoral Neck: g/cm2 (0.789) / T-score (-1.8) / Z- score (-0.3) Right Femur Total: g/cm2 (0.785) / T-score (-1.8) / Z-score (-0.6) Right Femoral Neck: g/cm2 (0.848) / T-score (-1.4) / Z-score (0.1) The T- Scores on the most recent prior examination w ere: Lumbar Spine (L1-L4): There has been worsening of bone density since the previous examination. Left Femur Total: which represents a worsening of 3.4%. Right Femur Total: which represents a wo rsening of 6.5%. IMPRESSION: The patient is considered osteopenic as outlined below according to World Nayan Organization (WHO) criteria with a moderate fracture risk. There has been worsening of bone density since the previous examination. Reference Information: The T-score is the number of standard deviations above or below the standard which is normal for young adults at their peak bone mineral density. The World Health Organization (WHO) interprets the T-scores as follows: Above -1 Normal bone density Betwee n -1 and -2.5 Osteopenia Equal to / or below -2.5 Osteoporosis As a practical clinical guideline, osteopenia may be graded as follows: Mild -1 through -1.5 Moderate -1.6 through -2.0 Severe -2.1 t hrough -2.4 The Z-score is the number of standard deviations above or below age-matched controls. A Z-score of less than -1.5 would be considered abnormal. References: 1. NIH Osteoporosis and Rela maggie Bone Diseases http://www.osteo.org 2. International Society for Clinical Densitometry http://www.iscd.org 3. National Osteoporosis Foundation http://www.nof.org Electronically Signed: Bayron Payan MD at 13:24 EST Tel [phone], Service support [phone], CC: Manda Higginbotham MD Python Architect: Signed 02-Apr-2014 Pelvis 1 or 2 Views Result: Comments: See Note; NOTES: [facility] Imaging Services [address] [place] [address] Radiology Report MR#: [id number] Acct: [id number] Name: LUBASUSANNE C Rep #: [id number] : 1950 F 64 From: Ross Javier DO PCP: Manda Higginbotham MD Status: REG CLI Study: Pelvis 1 or 2 Views Date of Exam: 04/02/14 Exam# [id number] Ordering Dr: Peri Deutsch MD STUDY: X-RAY - PELVIS REASON FOR EXAM: Female, 64 years old. Inflammatory polyarthropathy. TECHNIQUE: One view of the pelvis was obtained. COMPARISON: None. FINDING S: There is a non-specific bowel gas pattern. Normal visualized soft tissue structures. There are 2 surgical clips in the left pelvis. Normal bilateral iliac wings, sacroiliac joints and visualized sacrum. Normal visualized bilateral superior and inferior pubic rami. Normal pubic symphysis. Normal ischial tuberosities. Normal visualized right femoral head. Normal right acetabulum. There is mi ld articular joint space narrowing of the right hip. Normal visualized left femoral head. Normal left acetabulum. There is mild articular joint space narrowing of the left hip. IMPRESSION: Mild degenerative changes of the bilateral hips. Electronically Signed: Ross Javier DO at 20:24 EDT Tel [phone], Service support [phone], Fax CC: Manda Higginbotham MD; Peri Deutsch MD Python Architect: Signed 09-Jul-2013 Bilat [employer]rn Digital & CAD Result: Comments: See Note; NOTES: [facility] Imaging Services [address] [place] [address] Breast Imaging Report MR#: [id number] Acct: [id number] Name: SUSANNE TORRES Rep #: [id number] : 1950 F 63 From: Bayron Payan MD PCP: Status: REG CLI Exam# [id number] Ordering Dr: Manda Higginbotham MD MAMMOGRAPHY - BILATERAL SCREENING REASON FOR EXAM: Female, 63 years old. Routine annual screening examination. PERTINENT HISTORY: Non-contributory. TECHNIQUE: Digital examination. Mediolateral oblique (MLO) and craniocaudad (CC) views of both breasts were o btained. CAD: CAD was performed on this study. COMPARISON: Comparison is made with prior examination dated June 02, 2012 and May 21, 2011. FINDINGS: T he breast composition is almost entirely fat. Glandular tissue is less than 25%. There are no dominant masses or suspicious calcifications. No other significant abnormalities are identified. There has been no significant change since the prior study. IMPRESSION: Stable bilateral screening mammogram. Yearly follow-up recommended. (A) ASSESSMENT CATEGORY: BIRADS Category 2: Benign finding(s). A letter regarding these results will be sent to the patient by the facility within 30 days. Approximately 10% of breast ca ncers are not detected by mammography. A normal mammogram should not delay biopsy of a clinically suspicious abnormality. Electronically Signed: Bayron Payan M.D. at 10:52 EST T [phone], Service support [phone], CC: Manda Higginbotham MD Python Architect: Signed Immunization Name Dates Details Influenza (3 years and up) on: 23-May-2007 Comments: given 0.5cc im in left deltoid lot#[id number] exp.11/27- Influenza (3 years and up) on: 11-Jun-2008 Comments: inj given left deltoid no complicationslot:[id number]:12/28 Influenza (3 years and up) on: 22-Apr-2009 Comments: Lot #: [id number] date: mount given: 0.5 mlRoute: IMSite given: left deltoidGiven by: Ban Salas LPN Pneumococcal (2 years and up) on: 22-Apr-2009 Family History Unknown Family Member Name Dates Details Father Comments: , migraines, DM, ETOH Status: Active Mother Comments: Migranes, leaky valve, CHF, arthritis, AAA, Status: Active Son 1 Comments: Asthma Status: Active Social History Name Dates Details Alcohol Use Comments: rare one glass of wine bi weekly to monthly Status: Active Caffeine Use Comments: 1-2 cups qd Status: Active No Drug Use Status: Active Non Smoker/No Tobacco Use Status: Active Tobacco use: Former smoker. Status: Active Tobacco use: Former smoker. Status: Inactive Smoking Status Name Dates Details Former smoker Vital Signs Date Test Result Details [id number] Temperature 98.4 f Comments: Method: Temporal Pulse 94 /min Comments: Pattern: Regular Respiration Rate 16 /min Comments: Pattern: Unlabored O2 SAT 98 % Comments: Room air BP Systolic 130 mm[Hg] Comments: Patient Position: Sitting; Cuff Location: Left Arm; Cuff Size: Standard BP Diastolic 78 mm[Hg] Comments: Patient Position: Sitting; Cuff Location: Left Arm; Cuff Size: Standard Weight 165 lb Height 61 in Body Mass Index Calculated 31.18 kg/m2 Body Surface Area Calculated 1.74 m2 :08 Pulse 78 /min Comments: Pattern: Regular Respiration Rate 18 /min Comments: Pattern: Unlabored O2 SAT 98 % Comments: Room air BP Systolic 148 mm[Hg] Comments: Patient Position: Sitting; Cuff Location: Left Arm; Cuff Size: Standard BP Diastolic 88 mm[Hg] Comments: Patient Position: Sitting; Cuff Location: Left Arm; Cuff Size: Standard Weight 163 lb Height 61 in Body Mass Index Calculated 30.8 kg/m2 Body Surface Area Calculated 1.73 m2 :03 Pulse 81 /min Comments: Pattern: Regular Respiration Rate 18 /min Comments: Pattern: Unlabored O2 SAT 99 % Comments: Room air BP Systolic 138 mm[Hg] Comments: Patient Position: Sitting; Cuff Location: Left Arm; Cuff Size: Standard BP Diastolic 82 mm[Hg] Comments: Patient Position: Sitting; Cuff Location: Left Arm; Cuff Size: Standard Weight 163 lb Height 61 in Body Mass Index Calculated 30.8 kg/m2 Body Surface Area Calculated 1.73 m2 [id number] Temperature 97.2 f Comments: Method: Temporal Pulse 80 /min Comments: Pattern: Regular Respiration Rate 16 /min Comments: Pattern: Unlabored O2 SAT 98 % Comments: Room air BP Systolic 110 mm[Hg] Comments: Patient Position: Sitting; Cuff Location: Left Arm; Cuff Size: Standard BP Diastolic 68 mm[Hg] Comments: Patient Position: Sitting; Cuff Location: Left Arm; Cuff Size: Standard Weight 165 lb Height 61 in Body Mass Index Calculated 31.18 kg/m2 Body Surface Area Calculated 1.74 m2 [id number] Pulse 68 /min Comments: Pattern: Regular Respiration Rate 18 /min Comments: Pattern: Unlabored O2 SAT 97 % Comments: Room air BP Systolic 128 mm[Hg] Comments: Patient Position: Sitting; Cuff Location: Left Arm; Cuff Size: Large BP Diastolic 84 mm[Hg] Comments: Patient Position: Sitting; Cuff Location: Left Arm; Cuff Size: Large Weight 165 lb Height 61 in Body Mass Index Calculated 31.18 kg/m2 Body Surface Area Calculated 1.74 m2 :38 Pulse 77 /min Comments: Pattern: Regular O2 SAT 95 % Comments: Room air BP Systolic 122 mm[Hg] Comments: Patient Position: Sitting; Cuff Location: Left Arm; Cuff Size: Large BP Diastolic 70 mm[Hg] Comments: Patient Position: Sitting; Cuff Location: Left Arm; Cuff Size: Large Weight 165 lb Height 61 in Body Mass Index Calculated 31.18 kg/m2 Body Surface Area Calculated 1.74 m2 :25 Comments: hearing wnlDrJayden Jacques and had a glaucoma test done Pulse 74 /min Comments: Pattern: Regular Respiration Rate 18 /min Comments: Pattern: Unlabored O2 SAT 97 % Comments: Room air BP Systolic 128 mm[Hg] Comments: Patient Position: Standing; Cuff Location: Left Arm; Cuff Size: Large BP Diastolic 80 mm[Hg] Comments: Patient Position: Standing; Cuff Location: Left Arm; Cuff Size: Large Weight 167 lb Height 61 in Body Mass Index Calculated 31.55 kg/m2 Body Surface Area Calculated 1.75 m2 :05 Pulse 90 /min Comments: Pattern: Regular Respiration Rate 18 /min Comments: Pattern: Unlabored O2 SAT 97 % Comments: Room air BP Systolic 138 mm[Hg] Comments: Patient Position: Sitting; Cuff Location: Left Arm; Cuff Size: Large BP Diastolic 80 mm[Hg] Comments: Patient Position: Sitting; Cuff Location: Left Arm; Cuff Size: Large Weight 162.25 lb Height 61 in Body Mass Index Calculated 30.66 kg/m2 Body Surface Area Calculated 1.73 m2 :37 Pulse 86 /min Comments: Pattern: Regular Respiration Rate 18 /min Comments: Pattern: Unlabored O2 SAT 95 % Comments: Room air BP Systolic 122 mm[Hg] Comments: Patient Position: Sitting; Cuff Location: Left Arm; Cuff Size: Large BP Diastolic 62 mm[Hg] Comments: Patient Position: Sitting; Cuff Location: Left Arm; Cuff Size: Large Weight 160.25 lb Height 61 in Body Mass Index Calculated 30.28 kg/m2 Body Surface Area Calculated 1.72 m2 :31 Pulse 83 /min Comments: Pattern: Regular Respiration Rate 18 /min Comments: Pattern: Unlabored O2 SAT 97 % Comments: Room air BP Systolic 124 mm[Hg] Comments: Patient Position: Sitting; Cuff Location: Left Arm; Cuff Size: Large BP Diastolic 80 mm[Hg] Comments: Patient Position: Sitting; Cuff Location: Left Arm; Cuff Size: Large Weight 161.125 lb Height 61 in Body Mass Index Calculated 30.44 kg/m2 Body Surface Area Calculated 1.72 m2 :45 Pulse 77 /min Comments: Pattern: Regular Respiration Rate 18 /min Comments: Pattern: Unlabored O2 SAT 96 % Comments: Room air BP Systolic 122 mm[Hg] Comments: Patient Position: Sitting; Cuff Location: Left Arm; Cuff Size: Standard BP Diastolic 82 mm[Hg] Comments: Patient Position: Sitting; Cuff Location: Left Arm; Cuff Size: Standard Weight 159.5 lb Height 61 in Body Mass Index Calculated 30.14 kg/m2 Body Surface Area Calculated 1.72 m2 :37 Temperature 98 f Pulse 80 /min Comments: Pattern: Regular Respiration Rate 16 /min Comments: Pattern: Unlabored O2 SAT 97 % Comments: Room air BP Systolic 120 mm[Hg] Comments: Patient Position: Sitting; Cuff Location: Left Arm; Cuff Size: Standard BP Diastolic 68 mm[Hg] Comments: Patient Position: Sitting; Cuff Location: Left Arm; Cuff Size: Standard Weight 159.5 lb Height 61 in Body Mass Index Calculated 30.14 kg/m2 Body Surface Area Calculated 1.72 m2 :22 Pulse 81 /min Comments: Pattern: Regular Respiration Rate 18 /min Comments: Pattern: Unlabored O2 SAT 98 % Comments: Room air BP Systolic 120 mm[Hg] Comments: Patient Position: Sitting; Cuff Location: Left Arm; Cuff Size: Standard BP Diastolic 78 mm[Hg] Comments: Patient Position: Sitting; Cuff Location: Left Arm; Cuff Size: Standard Weight 158.5 lb Height 61 in Body Mass Index Calculated 29.95 kg/m2 Body Surface Area Calculated 1.71 m2 :52 Temperature 97.4 f Comments: Method: Temporal Pulse 86 /min Comments: Pattern: Regular Respiration Rate 15 /min Comments: Pattern: Unlabored O2 SAT 97 % Comments: Room air BP Systolic 112 mm[Hg] Comments: Patient Position: Sitting; Cuff Location: Left Arm; Cuff Size: Standard BP Diastolic 72 mm[Hg] Comments: Patient Position: Sitting; Cuff Location: Left Arm; Cuff Size: Standard Weight 152 lb Height 61 in Body Mass Index Calculated 28.72 kg/m2 Body Surface Area Calculated 1.68 m2 :12 Pulse 73 /min Comments: Pattern: Regular Respiration Rate 16 /min Comments: Pattern: Unlabored O2 SAT 98 % Comments: Room air BP Systolic 108 mm[Hg] Comments: Patient Position: Sitting; Cuff Location: Left Arm; Cuff Size: Standard BP Diastolic 62 mm[Hg] Comments: Patient Position: Sitting; Cuff Location: Left Arm; Cuff Size: Standard Weight 150 lb Height 61 in Body Mass Index Calculated 28.34 kg/m2 Body Surface Area Calculated 1.67 m2 :27 Temperature 97.2 f Pulse 78 /min Comments: Pattern: Regular Respiration Rate 16 /min Comments: Pattern: Unlabored O2 SAT 98 % Comments: Room air BP Systolic 122 mm[Hg] Comments: Patient Position: Sitting; Cuff Location: Left Arm; Cuff Size: Standard BP Diastolic 82 mm[Hg] Comments: Patient Position: Sitting; Cuff Location: Left Arm; Cuff Size: Standard Weight 149 lb Height 61 in Body Mass Index Calculated 28.15 kg/m2 Body Surface Area Calculated 1.67 m2 :54 Temperature 97.4 f Pulse 81 /min Comments: Pattern: Regular Respiration Rate 16 /min Comments: Pattern: Unlabored O2 SAT 97 % Comments: Room air BP Systolic 118 mm[Hg] Comments: Patient Position: Sitting; Cuff Location: Left Arm; Cuff Size: Standard BP Diastolic 78 mm[Hg] Comments: Patient Position: Sitting; Cuff Location: Left Arm; Cuff Size: Standard Weight 149 lb Height 61 in Body Mass Index Calculated 28.15 kg/m2 Body Surface Area Calculated 1.67 m2 :17 Temperature 98 f Comments: Method: Oral Pulse 77 /min Comments: Pattern: Regular Respiration Rate 16 /min Comments: Pattern: Unlabored O2 SAT 98 % Comments: Room air BP Systolic 120 mm[Hg] Comments: Patient Position: Sitting; Cuff Location: Left Arm; Cuff Size: Standard BP Diastolic 70 mm[Hg] Comments: Patient Position: Sitting; Cuff Location: Left Arm; Cuff Size: Standard Weight 149 lb Height 61 in Body Mass Index Calculated 28.15 kg/m2 Body Surface Area Calculated 1.67 m2 :43 Temperature 96.3 f Comments: Method: Temporal Pulse 72 /min Comments: Pattern: Regular Respiration Rate 17 /min Comments: Pattern: Unlabored O2 SAT 98 % Comments: Room air BP Systolic 90 mm[Hg] Comments: Patient Position: Sitting; Cuff Location: Left Arm; Cuff Size: Standard BP Diastolic 60 mm[Hg] Comments: Patient Position: Sitting; Cuff Location: Left Arm; Cuff Size: Standard Weight 152 lb Height 61 in Body Mass Index Calculated 28.72 kg/m2 Body Surface Area Calculated 1.68 m2 :15 Temperature 97.4 f Comments: Method: Oral Pulse 72 /min Comments: Pattern: Regular Respiration Rate 18 /min Comments: Pattern: Unlabored O2 SAT 99 % Comments: Room air BP Systolic 116 mm[Hg] Comments: Patient Position: Sitting; Cuff Location: Left Arm; Cuff Size: Standard BP Diastolic 64 mm[Hg] Comments: Patient Position: Sitting; Cuff Location: Left Arm; Cuff Size: Standard Weight 155 lb Height 61 in Body Mass Index Calculated 29.29 kg/m2 Body Surface Area Calculated 1.7 m2 :46 Temperature 98.8 f Comments: Method: Temporal Pulse 72 /min Comments: Pattern: Regular Respiration Rate 16 /min Comments: Pattern: Unlabored O2 SAT 97 % Comments: Room air BP Systolic 124 mm[Hg] Comments: Patient Position: Sitting; Cuff Location: Left Arm; Cuff Size: Standard BP Diastolic 74 mm[Hg] Comments: Patient Position: Sitting; Cuff Location: Left Arm; Cuff Size: Standard Weight 163 lb Height 61 in Body Mass Index Calculated 30.8 kg/m2 Body Surface Area Calculated 1.73 m2 :33 Temperature 96.7 f Comments: Method: Temporal Pulse 67 /min Comments: Pattern: Regular Respiration Rate 17 /min Comments: Pattern: Unlabored O2 SAT 98 % Comments: Room air BP Systolic 130 mm[Hg] Comments: Patient Position: Sitting; Cuff Location: Left Arm; Cuff Size: Standard BP Diastolic 78 mm[Hg] Comments: Patient Position: Sitting; Cuff Location: Left Arm; Cuff Size: Standard Weight 163 lb Height 61 in Body Mass Index Calculated 30.8 kg/m2 Body Surface Area Calculated 1.73 m2 :23 Weight 163 lb Height 61 in Body Mass Index Calculated 30.8 kg/m2 Body Surface Area Calculated 1.73 m2 :50 Temperature 97.4 f Comments: Method: Oral Pulse 60 /min Comments: Pattern: Regular O2 SAT 98 % Comments: Room air BP Systolic 142 mm[Hg] Comments: Patient Position: Sitting; Cuff Location: Left Arm; Cuff Size: Standard BP Diastolic 82 mm[Hg] Comments: Patient Position: Sitting; Cuff Location: Left Arm; Cuff Size: Standard Weight 163 lb Height 61 in Body Mass Index Calculated 30.8 kg/m2 Body Surface Area Calculated 1.73 m2 :48 Temperature 97.6 f Comments: Method: Oral Pulse 74 /min Comments: Pattern: Regular Respiration Rate 20 /min Comments: Pattern: Unlabored BP Systolic 120 mm[Hg] Comments: Patient Position: Sitting; Cuff Location: Left Arm; Cuff Size: Standard BP Diastolic 80 mm[Hg] Comments: Patient Position: Sitting; Cuff Location: Left Arm; Cuff Size: Standard Weight 163 lb Height 61 in Body Mass Index Calculated 30.8 kg/m2 Body Surface Area Calculated 1.73 m2 :11 Temperature 97.8 f Comments: Method: Oral Pulse 99 /min Comments: Pattern: Regular Respiration Rate 16 /min O2 SAT 98 % Comments: Room air BP Systolic 122 mm[Hg] Comments: Patient Position: Sitting; Cuff Location: Left Arm; Cuff Size: Standard BP Diastolic 74 mm[Hg] Comments: Patient Position: Sitting; Cuff Location: Left Arm; Cuff Size: Standard Weight 164 lb Height 61 in Body Mass Index Calculated 30.99 kg/m2 Body Surface Area Calculated 1.74 m2 :05 Temperature 96.8 f Comments: Method: Oral Pulse 54 /min Comments: Pattern: Regular Respiration Rate 16 /min BP Systolic 126 mm[Hg] Comments: Patient Position: Sitting; Cuff Location: Left Arm; Cuff Size: Standard BP Diastolic 72 mm[Hg] Comments: Patient Position: Sitting; Cuff Location: Left Arm; Cuff Size: Standard Weight 164 lb Height 61 in Body Mass Index Calculated 30.99 kg/m2 Body Surface Area Calculated 1.74 m2 :23 Temperature 97.5 f Comments: Method: Temporal Pulse 86 /min Comments: Pattern: Regular Respiration Rate 16 /min Comments: Pattern: Unlabored O2 SAT 98 % Comments: Room air BP Systolic 122 mm[Hg] Comments: Patient Position: Sitting; Cuff Location: Left Arm; Cuff Size: Standard BP Diastolic 76 mm[Hg] Comments: Patient Position: Sitting; Cuff Location: Left Arm; Cuff Size: Standard Weight 164 lb Height 61 in Body Mass Index Calculated 30.99 kg/m2 Body Surface Area Calculated 1.74 m2 :35 Temperature 98.2 f Comments: Method: Oral Pulse 78 /min Comments: Pattern: Regular Respiration Rate 20 /min Comments: Pattern: Unlabored BP Systolic 114 mm[Hg] Comments: Patient Position: Sitting; Cuff Location: Left Arm; Cuff Size: Standard BP Diastolic 74 mm[Hg] Comments: Patient Position: Sitting; Cuff Location: Left Arm; Cuff Size: Standard Weight 164 lb Height 61 in Body Mass Index Calculated 30.99 kg/m2 Body Surface Area Calculated 1.74 m2 :20 Temperature 98.7 f Comments: Method: Oral Pulse 78 /min Comments: Pattern: Regular Respiration Rate 16 /min Comments: Pattern: Unlabored O2 SAT 98 % Comments: Room air BP Systolic 120 mm[Hg] Comments: Patient Position: Sitting; Cuff Location: Left Arm; Cuff Size: Standard BP Diastolic 70 mm[Hg] Comments: Patient Position: Sitting; Cuff Location: Left Arm; Cuff Size: Standard Weight 171 lb Height 61 in Body Mass Index Calculated 32.31 kg/m2 Body Surface Area Calculated 1.77 m2 :22 Temperature 97.6 f Comments: Method: Oral Pulse 70 /min Comments: Pattern: Regular Respiration Rate 18 /min Comments: Pattern: Unlabored BP Systolic 122 mm[Hg] Comments: Patient Position: Sitting; Cuff Location: Left Arm; Cuff Size: Standard BP Diastolic 78 mm[Hg] Comments: Patient Position: Sitting; Cuff Location: Left Arm; Cuff Size: Standard Weight 171 lb Height 61 in Body Mass Index Calculated 32.31 kg/m2 Body Surface Area Calculated 1.77 m2 :06 Temperature 97.6 f Comments: Method: Oral Pulse 64 /min Comments: Pattern: Regular Respiration Rate 20 /min Comments: Pattern: Unlabored BP Systolic 120 mm[Hg] Comments: Patient Position: Sitting; Cuff Location: Left Arm; Cuff Size: Standard BP Diastolic 80 mm[Hg] Comments: Patient Position: Sitting; Cuff Location: Left Arm; Cuff Size: Standard Weight 166 lb Height 61 in Body Mass Index Calculated 31.37 kg/m2 Body Surface Area Calculated 1.75 m2 :07 Temperature 97.8 f Comments: Method: Temporal Pulse 70 /min Comments: Pattern: Regular Respiration Rate 16 /min Comments: Pattern: Unlabored O2 SAT 96 % Comments: Room air BP Systolic 124 mm[Hg] Comments: Patient Position: Sitting; Cuff Location: Left Arm; Cuff Size: Standard BP Diastolic 70 mm[Hg] Comments: Patient Position: Sitting; Cuff Location: Left Arm; Cuff Size: Standard Weight 171 lb Height 61 in Body Mass Index Calculated 32.31 kg/m2 Body Surface Area Calculated 1.77 m2 :03 Temperature 97.2 f Pulse 70 /min Comments: Pattern: Regular Respiration Rate 16 /min Comments: Pattern: Unlabored BP Systolic 128 mm[Hg] Comments: Patient Position: Sitting; Cuff Location: Left Arm; Cuff Size: Large BP Diastolic 92 mm[Hg] Comments: Patient Position: Sitting; Cuff Location: Left Arm; Cuff Size: Large Weight 171 lb Height 61 in Body Mass Index Calculated 32.31 kg/m2 Body Surface Area Calculated 1.77 m2 :46 Temperature 96.3 f Comments: Method: Temporal Pulse 76 /min Comments: Pattern: Regular Respiration Rate 16 /min Comments: Pattern: Unlabored O2 SAT 98 % Comments: Room air BP Systolic 122 mm[Hg] Comments: Patient Position: Sitting; Cuff Location: Left Arm; Cuff Size: Standard BP Diastolic 74 mm[Hg] Comments: Patient Position: Sitting; Cuff Location: Left Arm; Cuff Size: Standard Weight 176 lb Height 61 in Body Mass Index Calculated 33.25 kg/m2 Body Surface Area Calculated 1.79 m2 :55 Temperature 97.5 f Pulse 72 /min Comments: Pattern: Regular Respiration Rate 16 /min Comments: Pattern: Unlabored BP Systolic 116 mm[Hg] Comments: Patient Position: Sitting; Cuff Location: Left Arm; Cuff Size: Large BP Diastolic 80 mm[Hg] Comments: Patient Position: Sitting; Cuff Location: Left Arm; Cuff Size: Large Weight 176 lb Height 61 in Body Mass Index Calculated 33.25 kg/m2 Body Surface Area Calculated 1.79 m2 :18 Temperature 97.3 f Pulse 86 /min Comments: Pattern: Regular Respiration Rate 16 /min Comments: Pattern: Unlabored BP Systolic 130 mm[Hg] Comments: Patient Position: Sitting; Cuff Location: Left Arm; Cuff Size: Large BP Diastolic 70 mm[Hg] Comments: Patient Position: Sitting; Cuff Location: Left Arm; Cuff Size: Large Weight 177 lb Height 61 in Body Mass Index Calculated 33.44 kg/m2 Body Surface Area Calculated 1.79 m2 :13 Temperature 97.5 f Pulse 76 /min Comments: Pattern: Regular Respiration Rate 16 /min Comments: Pattern: Unlabored BP Systolic 94 mm[Hg] Comments: Patient Position: Sitting; Cuff Location: Left Arm; Cuff Size: Large BP Diastolic 62 mm[Hg] Comments: Patient Position: Sitting; Cuff Location: Left Arm; Cuff Size: Large Weight 173 lb Height 61 in Body Mass Index Calculated 32.69 kg/m2 Body Surface Area Calculated 1.78 m2 :59 Temperature 96.8 f Comments: Method: Oral Pulse 72 /min Comments: Pattern: Regular Respiration Rate 16 /min BP Systolic 120 mm[Hg] Comments: Patient Position: Sitting; Cuff Location: Left Arm; Cuff Size: Standard BP Diastolic 74 mm[Hg] Comments: Patient Position: Sitting; Cuff Location: Left Arm; Cuff Size: Standard Weight 169 lb Height 61 in Body Mass Index Calculated 31.93 kg/m2 Body Surface Area Calculated 1.76 m2 :00 Temperature 97.6 f Pulse 76 /min Comments: Pattern: Regular Respiration Rate 18 /min Comments: Pattern: Unlabored BP Systolic 124 mm[Hg] Comments: Patient Position: Sitting; Cuff Location: Left Arm; Cuff Size: Large BP Diastolic 82 mm[Hg] Comments: Patient Position: Sitting; Cuff Location: Left Arm; Cuff Size: Large Weight 169 lb Height 61 in Body Mass Index Calculated 31.93 kg/m2 Body Surface Area Calculated 1.76 m2 :54 Temperature 98.2 f Comments: Method: Oral Pulse 66 /min Comments: Pattern: Regular Respiration Rate 16 /min Comments: Pattern: Unlabored BP Systolic 120 mm[Hg] Comments: Patient Position: Sitting; Cuff Location: Left Arm; Cuff Size: Standard BP Diastolic 80 mm[Hg] Comments: Patient Position: Sitting; Cuff Location: Left Arm; Cuff Size: Standard Weight 169 lb Height 61 in Body Mass Index Calculated 31.93 kg/m2 Body Surface Area Calculated 1.76 m2 :56 Temperature 98.1 f Comments: Method: Oral Pulse 78 /min Comments: Pattern: Regular BP Systolic 110 mm[Hg] Comments: Patient Position: Sitting; Cuff Location: Left Arm; Cuff Size: Standard BP Diastolic 70 mm[Hg] Comments: Patient Position: Sitting; Cuff Location: Left Arm; Cuff Size: Standard Weight 169 lb Height 61 in Body Mass Index Calculated 31.93 kg/m2 Body Surface Area Calculated 1.76 m2 :12 Pulse 80 /min Comments: Pattern: Regular Respiration Rate 18 /min Comments: Pattern: Unlabored BP Systolic 122 mm[Hg] Comments: Patient Position: Sitting; Cuff Location: Left Arm; Cuff Size: Large BP Diastolic 70 mm[Hg] Comments: Patient Position: Sitting; Cuff Location: Left Arm; Cuff Size: Large Weight 171.5 lb Height 61.75 in Body Mass Index Calculated 31.62 kg/m2 Body Surface Area Calculated 1.79 m2 :26 Temperature 98.3 f Comments: Method: Oral Pulse 74 /min Comments: Pattern: Regular Respiration Rate 12 /min Comments: Pattern: Unlabored BP Systolic 122 mm[Hg] Comments: Patient Position: Sitting; Cuff Location: Left Arm; Cuff Size: Standard BP Diastolic 78 mm[Hg] Comments: Patient Position: Sitting; Cuff Location: Left Arm; Cuff Size: Standard Weight 176 lb Height 61.75 in Body Mass Index Calculated 32.45 kg/m2 Body Surface Area Calculated 1.81 m2 :25 Temperature 97.4 f Pulse 64 /min Comments: Pattern: Regular Respiration Rate 16 /min Comments: Pattern: Unlabored BP Systolic 138 mm[Hg] Comments: Patient Position: Sitting; Cuff Location: Left Arm; Cuff Size: Standard BP Diastolic 94 mm[Hg] Comments: Patient Position: Sitting; Cuff Location: Left Arm; Cuff Size: Standard Weight 176 lb Height 61.75 in Body Mass Index Calculated 32.45 kg/m2 Body Surface Area Calculated 1.81 m2 :31 Temperature 97.7 f Pulse 80 /min Comments: Pattern: Regular Respiration Rate 18 /min Comments: Pattern: Unlabored BP Systolic 122 mm[Hg] Comments: Patient Position: Sitting; Cuff Location: Left Arm; Cuff Size: Large BP Diastolic 84 mm[Hg] Comments: Patient Position: Sitting; Cuff Location: Left Arm; Cuff Size: Large Weight 182 lb :59 Temperature 97 f Comments: Method: Oral Pulse 72 /min Comments: Pattern: Regular Respiration Rate 17 /min Comments: Pattern: Unlabored BP Systolic 134 mm[Hg] Comments: Patient Position: Sitting; Cuff Location: Left Arm; Cuff Size: Standard BP Diastolic 78 mm[Hg] Comments: Patient Position: Sitting; Cuff Location: Left Arm; Cuff Size: Standard Weight 183 lb :08 Temperature 97.7 f Pulse 68 /min Comments: Pattern: Regular Respiration Rate 18 /min Comments: Pattern: Unlabored BP Systolic 114 mm[Hg] Comments: Patient Position: Sitting; Cuff Location: Left Arm; Cuff Size: Large BP Diastolic 76 mm[Hg] Comments: Patient Position: Sitting; Cuff Location: Left Arm; Cuff Size: Large Weight 183 lb :22 Temperature 97.1 f Pulse 68 /min Comments: Pattern: Regular Respiration Rate 18 /min Comments: Pattern: Unlabored BP Systolic 110 mm[Hg] Comments: Patient Position: Sitting; Cuff Location: Left Arm; Cuff Size: Large BP Diastolic 70 mm[Hg] Comments: Patient Position: Sitting; Cuff Location: Left Arm; Cuff Size: Large Weight 186 lb :32 Temperature 97.3 f Pulse 96 /min Comments: Pattern: Regular Respiration Rate 18 /min Comments: Pattern: Unlabored BP Systolic 126 mm[Hg] Comments: Patient Position: Sitting; Cuff Location: Right Arm; Cuff Size: Standard BP Diastolic 88 mm[Hg] Comments: Patient Position: Sitting; Cuff Location: Right Arm; Cuff Size: Standard :43 Temperature 96.4 f Comments: Method: Undefined Pulse 80 /min Comments: Pattern: Regular Respiration Rate 18 /min Comments: Pattern: Undefined BP Systolic 134 mm[Hg] Comments: Patient Position: Sitting; Cuff Location: Left Arm; Cuff Size: Standard BP Diastolic 78 mm[Hg] Comments: Patient Position: Sitting; Cuff Location: Left Arm; Cuff Size: Standard Weight 192 lb Height 0 in Head Circumference 0.00 cm :23 Temperature 97.6 f Comments: Method: Oral Pulse 80 /min Comments: Pattern: Regular Respiration Rate 18 /min Comments: Pattern: Unlabored O2 SAT 98 % Comments: Room air BP Systolic 130 mm[Hg] Comments: Patient Position: Sitting; Cuff Location: Left Arm; Cuff Size: Standard BP Diastolic 86 mm[Hg] Comments: Patient Position: Sitting; Cuff Location: Left Arm; Cuff Size: Standard Weight 196 lb Height 0 in Head Circumference 0.00 cm :02 Temperature 98.1 f Comments: Method: Oral Pulse 72 /min Comments: Pattern: Regular Respiration Rate 16 /min Comments: Pattern: Unlabored BP Systolic 142 mm[Hg] Comments: Patient Position: Supine; Cuff Location: Left Arm; Cuff Size: Standard BP Diastolic 78 mm[Hg] Comments: Patient Position: Supine; Cuff Location: Left Arm; Cuff Size: Standard Weight 199 lb Height 0 in Head Circumference 0.00 cm :15 Temperature 98.2 f Comments: Method: Undefined Pulse 96 /min Comments: Pattern: Regular Respiration Rate 18 /min Comments: Pattern: Undefined BP Systolic 140 mm[Hg] Comments: Patient Position: Sitting; Cuff Location: Left Arm; Cuff Size: Standard BP Diastolic 92 mm[Hg] Comments: Patient Position: Sitting; Cuff Location: Left Arm; Cuff Size: Standard Weight 199 lb Height 0 in Head Circumference 0.00 cm :07 Temperature 97.5 f Comments: Method: Undefined Pulse 84 /min Comments: Pattern: Regular Respiration Rate 18 /min Comments: Pattern: Undefined BP Systolic 130 mm[Hg] Comments: Patient Position: Sitting; Cuff Location: Right Arm; Cuff Size: Standard BP Diastolic 88 mm[Hg] Comments: Patient Position: Sitting; Cuff Location: Right Arm; Cuff Size: Standard Weight 0 lb Height 0 in Head Circumference 0.00 cm :49 Temperature 98 f Comments: Method: Undefined Pulse 88 /min Comments: Pattern: Regular Respiration Rate 16 /min Comments: Pattern: Undefined BP Systolic 120 mm[Hg] Comments: Patient Position: Sitting; Cuff Location: Left Arm; Cuff Size: Large BP Diastolic 82 mm[Hg] Comments: Patient Position: Sitting; Cuff Location: Left Arm; Cuff Size: Large Weight 0 lb Height 0 in Head Circumference 0.00 cm :14 Temperature 97.7 f Comments: Method: Oral Pulse 87 /min Comments: Pattern: Regular Respiration Rate 18 /min Comments: Pattern: Unlabored BP Systolic 122 mm[Hg] Comments: Patient Position: Sitting; Cuff Location: Left Arm; Cuff Size: Large BP Diastolic 82 mm[Hg] Comments: Patient Position: Sitting; Cuff Location: Left Arm; Cuff Size: Large Weight 205.0625 lb Height 0 in Head Circumference 0.00 cm :41 Temperature 97.8 f Comments: Method: Undefined Pulse 60 /min Comments: Pattern: Regular Respiration Rate 16 /min Comments: Pattern: Undefined BP Systolic 120 mm[Hg] Comments: Patient Position: Sitting; Cuff Location: Left Arm; Cuff Size: Large BP Diastolic 74 mm[Hg] Comments: Patient Position: Sitting; Cuff Location: Left Arm; Cuff Size: Large Weight 0 lb Height 0 in Head Circumference 0.00 cm :49 Temperature 99.2 f Comments: Method: Undefined Pulse 92 /min Comments: Pattern: Regular Respiration Rate 18 /min Comments: Pattern: Undefined BP Systolic 128 mm[Hg] Comments: Patient Position: Sitting; Cuff Location: Right Arm; Cuff Size: Standard BP Diastolic 84 mm[Hg] Comments: Patient Position: Sitting; Cuff Location: Right Arm; Cuff Size: Standard Weight 204 lb Height 61.75 in Body Mass Index Calculated 37.61 kg/m2 Body Surface Area Calculated 1.92 m2 Head Circumference 0.00 cm :19 Temperature 97.6 f Comments: Method: Oral Pulse 73 /min Comments: Pattern: Regular Respiration Rate 18 /min Comments: Pattern: Unlabored O2 SAT 99 % Comments: Room air BP Systolic 118 mm[Hg] Comments: Patient Position: Sitting; Cuff Location: Left Arm; Cuff Size: Standard BP Diastolic 82 mm[Hg] Comments: Patient Position: Sitting; Cuff Location: Left Arm; Cuff Size: Standard Weight 208.25 lb Height 0 in Head Circumference 0.00 cm :08 Pulse 64 /min Comments: Pattern: Regular Respiration Rate 20 /min Comments: Pattern: Unlabored BP Systolic 142 mm[Hg] Comments: Patient Position: Sitting; Cuff Location: Left Arm; Cuff Size: Large BP Diastolic 84 mm[Hg] Comments: Patient Position: Sitting; Cuff Location: Left Arm; Cuff Size: Large Weight 208.25 lb Height 0 in Head Circumference 0.00 cm :45 Pulse 88 /min Comments: Pattern: Regular Respiration Rate 18 /min Comments: Pattern: Unlabored BP Systolic 142 mm[Hg] Comments: Patient Position: Standing; Cuff Location: Left Arm; Cuff Size: Standard BP Diastolic 88 mm[Hg] Comments: Patient Position: Standing; Cuff Location: Left Arm; Cuff Size: Standard Weight 200.375 lb Height 62 in Body Mass Index Calculated 36.65 kg/m2 Body Surface Area Calculated 1.91 m2 Head Circumference 0.00 cm :16 Temperature 98.2 f Comments: Method: Undefined Pulse 72 /min Comments: Pattern: Regular Respiration Rate 16 /min Comments: Pattern: Unlabored BP Systolic 122 mm[Hg] Comments: Patient Position: Sitting; Cuff Location: Right Arm; Cuff Size: Standard BP Diastolic 88 mm[Hg] Comments: Patient Position: Sitting; Cuff Location: Right Arm; Cuff Size: Standard Weight 200.375 lb Height 62 in Body Mass Index Calculated 36.65 kg/m2 Body Surface Area Calculated 1.91 m2 Head Circumference 0.00 cm :16 Temperature 98.5 f Comments: Method: Undefined Pulse 80 /min Comments: Pattern: Regular Respiration Rate 18 /min Comments: Pattern: Undefined BP Systolic 132 mm[Hg] Comments: Patient Position: Sitting; Cuff Location: Right Arm; Cuff Size: Large BP Diastolic 72 mm[Hg] Comments: Patient Position: Sitting; Cuff Location: Right Arm; Cuff Size: Large Weight 194 lb Height 0 in Head Circumference 0.00 cm :22 Temperature 98 f Comments: Method: Undefined Pulse 76 /min Comments: Pattern: Regular Respiration Rate 16 /min Comments: Pattern: Undefined BP Systolic 120 mm[Hg] Comments: Patient Position: Sitting; Cuff Location: Right Arm; Cuff Size: Standard BP Diastolic 84 mm[Hg] Comments: Patient Position: Sitting; Cuff Location: Right Arm; Cuff Size: Standard Weight 0 lb Height 0 in Head Circumference 0.00 cm :43 Pulse 66 /min Comments: Pattern: Regular Respiration Rate 16 /min Comments: Pattern: Unlabored BP Systolic 134 mm[Hg] Comments: Patient Position: Sitting; Cuff Location: Left Arm; Cuff Size: Standard BP Diastolic 82 mm[Hg] Comments: Patient Position: Sitting; Cuff Location: Left Arm; Cuff Size: Standard Weight 194.1875 lb Height 62 in Body Mass Index Calculated 35.52 kg/m2 Body Surface Area Calculated 1.89 m2 Head Circumference 0.00 cm :51 Temperature 97.4 f Comments: Method: Oral Pulse 80 /min Comments: Pattern: Regular Respiration Rate 16 /min Comments: Pattern: Unlabored BP Systolic 110 mm[Hg] Comments: Patient Position: Sitting; Cuff Location: Left Arm; Cuff Size: Standard BP Diastolic 72 mm[Hg] Comments: Patient Position: Sitting; Cuff Location: Left Arm; Cuff Size: Standard Weight 194 lb Height 62 in Body Mass Index Calculated 35.48 kg/m2 Body Surface Area Calculated 1.89 m2 Head Circumference 0.00 cm :12 Temperature 98.1 f Comments: Method: Oral Pulse 88 /min Comments: Pattern: Regular Respiration Rate 16 /min Comments: Pattern: Unlabored BP Systolic 136 mm[Hg] Comments: Patient Position: Sitting; Cuff Location: Right Arm; Cuff Size: Standard BP Diastolic 78 mm[Hg] Comments: Patient Position: Sitting; Cuff Location: Right Arm; Cuff Size: Standard Weight 0 lb Height 0 in Head Circumference 0.00 cm :20 Temperature 98.2 f Comments: Method: Oral Pulse 96 /min Comments: Pattern: Regular Respiration Rate 16 /min Comments: Pattern: Unlabored BP Systolic 112 mm[Hg] Comments: Patient Position: Sitting; Cuff Location: Right Arm; Cuff Size: Large BP Diastolic 68 mm[Hg] Comments: Patient Position: Sitting; Cuff Location: Right Arm; Cuff Size: Large Weight 187 lb Height 62 in Body Mass Index Calculated 34.2 kg/m2 Body Surface Area Calculated 1.86 m2 Head Circumference 0.00 cm :36 Temperature 97.6 f Comments: Method: Oral Pulse 68 /min Comments: Pattern: Regular Respiration Rate 16 /min Comments: Pattern: Unlabored BP Systolic 128 mm[Hg] Comments: Patient Position: Sitting; Cuff Location: Left Arm; Cuff Size: Large BP Diastolic 90 mm[Hg] Comments: Patient Position: Sitting; Cuff Location: Left Arm; Cuff Size: Large Weight 190 lb Height 0 in Head Circumference 0.00 cm :10 Pulse 80 /min Comments: Pattern: Regular Respiration Rate 14 /min Comments: Pattern: Unlabored BP Systolic 136 mm[Hg] Comments: Patient Position: Sitting; Cuff Location: Left Arm; Cuff Size: Standard BP Diastolic 76 mm[Hg] Comments: Patient Position: Sitting; Cuff Location: Left Arm; Cuff Size: Standard Weight 191.1875 lb Height 62.25 in Body Mass Index Calculated 34.69 kg/m2 Body Surface Area Calculated 1.88 m2 Head Circumference 0.00 cm :30 Temperature 97 f Comments: Method: Oral Pulse 72 /min Comments: Pattern: Regular Respiration Rate 16 /min Comments: Pattern: Unlabored BP Systolic 128 mm[Hg] Comments: Patient Position: Sitting; Cuff Location: Left Arm; Cuff Size: Standard BP Diastolic 90 mm[Hg] Comments: Patient Position: Sitting; Cuff Location: Left Arm; Cuff Size: Standard Weight 189.4375 lb Height 62.25 in Body Mass Index Calculated 34.37 kg/m2 Body Surface Area Calculated 1.87 m2 Head Circumference 0.00 cm :07 Temperature 97.8 f Comments: Method: Oral Pulse 56 /min Comments: Pattern: Regular Respiration Rate 16 /min Comments: Pattern: Unlabored BP Systolic 132 mm[Hg] Comments: Patient Position: Sitting; Cuff Location: Right Arm; Cuff Size: Standard BP Diastolic 80 mm[Hg] Comments: Patient Position: Sitting; Cuff Location: Right Arm; Cuff Size: Standard Weight 185 lb Height 62.25 in Body Mass Index Calculated 33.57 kg/m2 Body Surface Area Calculated 1.85 m2 Head Circumference 0.00 cm Results Date Description Value Details [id number] CALCIFIDIOL (66007) VIT D 25 Comments: PATIENT NOT FASTINGPERFORMED BY: [facility] [id number] [facility] [id number] Vitamin D, 25-Hydroxy 41.7 ng/mL (Normal) Range: 30.0-100.0 Comments: Vitamin D deficiency has been defined by the [place] of[place] and an Endocrine Society practice guideline as alevel of serum 25-OH vitamin D less than 20 ng/mL (1,2).The Endocrine Society went on to further define vitamin Dinsufficiency as a level between 21 and 29 ng/mL (2).1. IOM ([place] of [employer]). 2010. Dietary reference intakes for calcium and D. [place]: The National Academies Press.2. Micky MF, Jessenia SYKES, Katrin CAMARGO, et al. Evaluation, treatment, and prevention of vitamin D deficiency: an Endocrine Society clinical practice guideline. JCEM. 2010; 96(7):1911-30. [id number] VITAMIN B-12 (CYANOCOBALAMIN) Comments: PATIENT NOT FASTINGPERFORMED BY: CB [facility] [id number]Dublin [place] [id number] ([id number]) Vitamin B12 459 pg/mL (Normal) Range: 232-1245 16-Tlc-764038:12 TSH (47958) Comments: PATIENT NOT FASTINGPERFORMED BY: CB [facility] [id number] [address] RoadDublin [place] [id number] TSH 2.120 {uIU/mL} (Normal) Range: 0.450-4.500 27-Gmi-385609:12 SED RATE ERYTHROCYTE (13949) Comments: PATIENT NOT FASTINGPERFORMED BY: CB [facility] [id number] [address]Dublin [place] [id number] Sedimentation Rate-Westergren 2 mm/h (Normal) Range: 0-40 08-Xmb-[id number]:12 RHEUMATOID FACTOR-QUANT (39098) Comments: PATIENT NOT FASTINGPERFORMED BY: CB [facility] [id number]Dublin [place] [id number] RA Latex Turbid. <10.0 {IU/mL} (Normal) Range: 0.0-13.9 89-Lsx-551877:12 METABOLIC PANEL, COMPREHENSIVE Comments: PATIENT NOT FASTINGPERFORMED BY: CB [facility] Emotpo80[address]Dublin [place] [id number] ([id number]) ALT (SGPT) 19 [iU]/L (Normal) Range: 0-32 AST (SGOT) 21 [iU]/L (Normal) Range: 0-40 Alkaline Phosphatase 66 [iU]/L (Normal) Range: 39-117 Bilirubin, Total 0.4 mg/dL (Normal) Range: 0.0-1.2 A/G Ratio 2.2 (Normal) Range: 1.2-2.2 Globulin, Total 2.0 g/dL (Normal) Range: 1.5-4.5 Albumin 4.4 g/dL (Normal) Range: 3.6-4.8 Protein, Total 6.4 g/dL (Normal) Range: 6.0-8.5 Calcium 9.2 mg/dL (Normal) Range: 8.7-10.3 Carbon Dioxide, Total 23 mmol/L (Normal) Range: 20-29 Chloride 104 mmol/L (Normal) Range: 96-106 Potassium 4.5 mmol/L (Normal) Range: 3.5-5.2 Sodium 142 mmol/L (Normal) Range: 134-144 BUN/Creatinine Ratio 33 (Abnormal) Range: 12-28 eGFR If Africn Am 79 mL/min/1.73 (Normal) eGFR If NonAfricn Am 68 mL/min/1.73 (Normal) Creatinine 0.87 mg/dL (Normal) Range: 0.57-1.00 BUN 29 mg/dL (Abnormal) Range: 8-27 Glucose 92 mg/dL (Normal) Range: 65-99 12-Pke-[id number]:12 C-REACTIVE PROTEIN (35510) Comments: PATIENT NOT FASTINGPERFORMED BY: [facility] [id number] [facility] [id number] C-Reactive Protein, Quant 1.2 mg/L (Normal) Range: 0.0-4.9 86-Ifz-[id number]:12 CBC (AUTO) (96538) Comments: PATIENT NOT FASTINGPERFORMED BY: [facility] CenterJldchk[address] [facility] [id number] Platelets 212 {x10E3/uL} (Normal) Range: 150-379 RDW 13.9 % (Normal) Range: 12.3-15.4 MCHC 33.7 g/dL (Normal) Range: 31.5-35.7 MCH 30.8 pg (Normal) Range: 26.6-33.0 MCV 91 fL (Normal) Range: 79-97 Hematocrit 40.3 % (Normal) Range: 34.0-46.6 Hemoglobin 13.6 g/dL (Normal) Range: 11.1-15.9 RBC 4.42 {x10E6/uL} (Normal) Range: 3.77-5.28 WBC 4.8 {x10E3/uL} (Normal) Range: 3.4-10.8 21-Yrs-198868:12 BIBIANA (ANTINUCLEAR ANTIBODY) Comments: PATIENT NOT FASTINGPERFORMED BY: [facility] [id number] [facility] [id number] ([id number]) BIBIANA Direct Negative (Normal) 51-Igp-708044:08 Miscellaneous Lab Procedure Comments: Comments: [id number] TRANGLUTAMINASE SER FZTest(s) Ordered: [id number] [facility]GLUTAMINASE SER [facility] [address] [place], [address] [facility] Comments: TEST RESULT LIMITSTransglutaminase Ab IgG/M/ATragl IgG <1.2 U/mL 0.0 - 6.0 Reference Range Negative < 6.0 U/mL Weak Positive LAB (Normal) 6.0 - 9.0 U/mL Positive > 9.0 U/mLTragl IgM 2.0 U/mL 0.0 - 12.4 Reference Range Negative < 9.6 U/mL Equivocal 9.6 - 12.4 TEST U/mL Positive > 12.4 U/mLThe performance characteristics of the TransglutaminaseIgM assay was validated by [employer]. [place] FDA has not approved or cleared this test. Th e resultsof this assay can be used for clinical diagnosis withoutFDA approval. [employer]. is a CLIAcertified, CAP accredited laboratory for performing highcomplexity assays such as this o ne.Tragl IgA < 1.2 U/mL 0.0 - 4.0 Reference Range Negative < 4.0 U/mL Weak Positive 4.0 - 10.0 U/mL Positive > 10.0 U/mLComment_ TESTING PERFORMED AT [facility]. ORIGINAL REPORT ON FILE IN LAB CONTAINS ADDITIONAL TEST SITE INFORMATION. [id number]-[id number]:30 CBC-Complete Blood Cnt No Diff Comments: [facility] [address] [place], [address] MPV 9.8 fL (Normal) Range: 6.2-12.0 PLT 258 K/mm3 (Normal) Range: 150-450 RDW SD 44.4 fL (Abnormal) Range: 35.1-43.9 RDW CV 13.3 % (Normal) Range: 11.6-14.6 MCHC 31.5 {g/gl} (Abnormal) Range: 32-36 MCH 29.0 pg (Normal) Range: 27.0-32.0 MCV 92.0 fL (Normal) Range: 81-99 HCT 41.6 % (Normal) Range: 37-47 HGB 13.1 g/dL (Normal) Range: 12.0-15.0 RBC 4.52 {M/mm3} (Normal) Range: 4.2-5.4 WBC 6.0 K/mm3 (Normal) Range: 4.4-11.0 78-[id number]:30 Endomysial Antibody IgA Comments: [facility] (refer to report for specific site)refer to report for address and phone number ENDOMYSIAL IGA Negative (Normal) 90-[id number]:30 Thyroglobulin Antibody Comments: [facility] (refer to report for specific site)refer to report for address and phone number TG AB 1.1 {IU/mL} (Abnormal) Range: 0.0-0.9 Comments: Thyroglobulin Antibody measured by [facility] Plasma TherapiesMethodologyPerformed at: CB - [facility] [address] [id number] Director: Joaquim Barrett PhD, Phone: [phone] 88-[id number]:23 CBC-Complete Blood Cnt No Diff Comments: [facility] [address] [place], [address] MPV 9.5 fL (Normal) Range: 6.2-12.0 PLT 237 K/mm3 (Normal) Range: 150-450 RDW SD 44.1 fL (Abnormal) Range: 35.1-43.9 RDW CV 13.2 % (Normal) Range: 11.6-14.6 MCHC 31.7 {g/gl} (Abnormal) Range: 32-36 MCH 29.2 pg (Normal) Range: 27.0-32.0 MCV 92.0 fL (Normal) Range: 81-99 HCT 41.6 % (Normal) Range: 37-47 HGB 13.2 g/dL (Normal) Range: 12.0-15.0 RBC 4.52 {M/mm3} (Normal) Range: 4.2-5.4 WBC 4.3 K/mm3 (Abnormal) Range: 4.4-11.0 :23 Magnesium Comments: [facility] [address] [place], [id number] MG 2.3 mg/dL (Normal) Range: 1.6-2.6 :23 Microalb:Creat Ratio,Random UR Comments: [facility] [address] [place], [address] MALB:CREAT 5.6 {mg/g_CRE} (Normal) MICROALBUMIN,UR 5.3 mg/L (Normal) UR CREAT 95.70 mg/dL (Normal) :23 PTHIN 78.4 pg/mL (Normal) Comments: [facility] [address] [place], [phone] Range: 18.4-80.1 :23 Renal Profile Comments: [facility] [address] [place], [id number] CO2 28.0 mmol/L (Normal) Range: 21.0-32.0 CL 107 mmol/L (Normal) Range: 98-107 K 4.3 mmol/L (Normal) Range: 3.5-5.1 NA 144 mmol/L (Normal) Range: 136-145 PHOS 3.1 mg/dL (Normal) Range: 2.5-4.9 CA 8.7 mg/dL (Normal) Range: 8.5-10.1 ALB 3.7 g/dL (Normal) Range: 3.2-5.0 BUN/CRE 23.1 {RATIO} (Abnormal) Range: 10-20 EST GFR - AA 79 mL/min (Normal) Comments: GFR Calc EST GFR 65 mL/min (Normal) Comments: Non- GFR Calc CREAT,SERUM 0.91 mg/dL (Normal) Range: 0.55-1.02 Comments: The validity of the calculated GFR AND GFRAA in patients over70 years has not been determined. Clinical correlation isessential. BUN 21 mg/dL (Abnormal) Range: 7-18 GLU 97 mg/dL (Normal) Range: 74-106 Comments: Please note revised GLUCOSE reference range fdoivdjaz20/02/2018. 23-Fxu-39737:23 Vitamin D,25 Hydroxy Comments: [facility] [address] [facility] [address] [place], [place], [id number] Vitamin D 25-OH 34.7 ng/mL (Normal) Range: 29.95-100.01 Comments: Vitamin D 25(OH) Status Range Deficiency <20 ng/mL (50nmol/L) Insuffciency 20 - 30 ng/mL (50 - 75 nmol/L) Sufficiency 30 - 100 ng/mL (75 - 250 nmol/L) Toxicity >100 ng/mL (>250 nmol/L) 63-[id number]:19 CBC W/Diff, Automated Comments: [facility] [address] [facility] [place], [address] Absolute Lymph 1.25 {X10_3/ul} (Normal) Range: 0.83-4.51 Absolute Neut 2.2 {X10_3/uL} (Normal) Range: 2.0-7.7 IM GRAN % 0.000 % (Normal) Range: 0.0-0.9 Comments: IG% - Immature Granulocytes (promyelocytes, myelocytes andmetamyelocytes) > 1% indicates that a LEFT SHIFT is Present. BASO% 2.3 % (Abnormal) Range: 0-1 EO% 2.8 % (Normal) Range: 0-5 MONO% 7.4 % (Normal) Range: 0-10 LY% 32.1 % (Normal) Range: 19-41 NEUT% 55.4 % (Normal) Range: 47-70 MPV 10.1 fL (Normal) Range: 6.2-12.0 PLT 205 K/mm3 (Normal) Range: 150-450 RDW SD 41.9 fL (Normal) Range: 35.1-43.9 RDW CV 12.8 % (Normal) Range: 11.6-14.6 MCHC 32.8 {g/gl} (Normal) Range: 32-36 MCH 29.8 pg (Normal) Range: 27.0-32.0 MCV 90.9 fL (Normal) Range: 81-99 HCT 37.8 % (Normal) Range: 37-47 HGB 12.4 g/dL (Normal) Range: 12.0-15.0 RBC 4.16 {M/mm3} (Abnormal) Range: 4.2-5.4 WBC 3.9 K/mm3 (Abnormal) Range: 4.4-11.0 05-[id number]:19 Endomysial Antibody IgA Comments: [facility] (refer to report for specific site)refer to report for address and phone number ENDOMYSIAL IGA Negative (Normal) Comments: Performed at: [address] [id number] Director: Joaquim Barrett PhD, Phone: [phone] [id number] t-Transglutaminase IgA Comments: [facility] (refer to report for specific site)refer to report for address and phone number tTG IGA <2 U/mL (Normal) Range: 0-3 Comments: Negative 0 - 3 Weak Positive 4 - 10 Positive >10 Tissue Transglutaminase (tTG) has been identified as the endomysial anti gen. Studies have demonstr- ated that endomysial IgA antibodies have over 99% specificity for gluten sensitive enteropathy. 42-Don-551191:00 Culture, Urine Comments: [facility] Yojkvzotkv[address] [place], [address] CUUR See Note (Normal) Comments: Urine CultureCulture exhibits no growth. 58-Zxt-21517:27 CBC-Complete Blood Cnt No Diff Comments: [facility] Betjjyfpeg99[address] [place], [place], [id number] MPV 10.4 fL (Normal) Range: 6.2-12.0 PLT 222 K/mm3 (Normal) Range: 150-450 RDW SD 41.4 fL (Normal) Range: 35.1-43.9 RDW CV 12.6 % (Normal) Range: 11.6-14.6 MCHC 32.0 {g/gl} (Normal) Range: 32-36 MCH 29.7 pg (Normal) Range: 27.0-32.0 MCV 92.7 fL (Normal) Range: 81-99 HCT 40.6 % (Normal) Range: 37-47 HGB 13.0 g/dL (Normal) Range: 12.0-15.0 RBC 4.38 {M/mm3} (Normal) Range: 4.2-5.4 WBC 3.8 K/mm3 (Abnormal) Range: 4.4-11.0 :27 Magnesium Comments: [facility] [address] [place], [address] MG 2.1 mg/dL (Normal) Range: 1.8-2.4 :27 Microalb:Creat Ratio,Random UR Comments: [facility] [address] [place], [address] MALB:CREAT 4.6 {mg/g_CRE} (Normal) MICROALBUMIN,UR 8.6 mg/L (Normal) UR CREAT 188.00 mg/dL (Normal) :27 Renal Profile Comments: [address] [place], [place], [address] CO2 27.0 mmol/L (Normal) Range: 21.0-32.0 CL 107 mmol/L (Normal) Range: 98-107 K 4.3 mmol/L (Normal) Range: 3.5-5.1 NA 142 mmol/L (Normal) Range: 136-145 PHOS 3.2 mg/dL (Normal) Range: 2.5-4.9 CA 8.9 mg/dL (Normal) Range: 8.5-10.1 ALB 3.9 g/dL (Normal) Range: 3.4-5.0 Comments: Please note revised Albumin AND Globulin reference rangeeffective 2017. BUN/CRE 17.3 {RATIO} (Normal) Range: 10-20 EST GFR - AA 68 mL/min (Normal) Comments: GFR Calc EST GFR 56 mL/min (Abnormal) Comments: Non- GFR Calc CREAT,SERUM 1.04 mg/dL (Abnormal) Range: 0.55-1.02 Comments: The validity of the calculated GFR AND GFRAA in patients over70 years has not been determined. Clinical correlation isessential. BUN 18 mg/dL (Normal) Range: 7-18 GLU 94 mg/dL (Normal) Range: 70-110 17-Nsc-52662:27 Vitamin D,25 Hydroxy Comments: [facility] Ymymsfzezj[address] [place], [address] Vitamin D 25-OH 57.5 ng/mL (Normal) Comments: Vitamin D 25(OH) Status Range Deficiency <20 ng/mL (50nmol/L) Insuffciency 20 - 30 ng/mL (50 - 75 nmol/L) Sufficiency 30 - 100 ng/mL (75 - 250 nmol/L) Toxicity >100 ng/mL (>250 nmol/L) 2-Pjz-154904:15 TSH (77030) Comments: PATIENT NOT FASTINGPERFORMED BY: [employer] Fdfgwp[address] [place] [id number] TSH 2.900 {uIU/mL} (Normal) Range: 0.450-4.500 4-Pey-019960:15 SED RATE ERYTHROCYTE (74942) Comments: PATIENT NOT FASTINGPERFORMED BY: [facility] Basncq6395 [address] MarkerlyFormerly [facility]in [place] [id number] Sedimentation Rate-Westergren 2 mm/h (Normal) Range: 0-40 0-Qwc-557095:15 C-REACTIVE PROTEIN (00125) Comments: PATIENT NOT FASTINGPERFORMED BY: [facility] Fojpow3579 [address] [facility] [place] [id number] C-Reactive Protein, Quant 1.4 mg/L (Normal) Range: 0.0-4.9 6-Wax-575011:15 METABOLIC PANEL, COMPREHENSIVE Comments: PATIENT NOT FASTINGPERFORMED BY: [employer] Fkanqo9144 [facility] [id number] (40854) ALT (SGPT) 10 [iU]/L (Normal) Range: 0-32 AST (SGOT) 20 [iU]/L (Normal) Range: 0-40 Alkaline Phosphatase, S 69 [iU]/L (Normal) Range: 39-117 Bilirubin, Total 0.5 mg/dL (Normal) Range: 0.0-1.2 A/G Ratio 2.4 (Abnormal) Range: 1.2-2.2 Globulin, Total 1.9 g/dL (Normal) Range: 1.5-4.5 Albumin, Serum 4.6 g/dL (Normal) Range: 3.6-4.8 Protein, Total, Serum 6.5 g/dL (Normal) Range: 6.0-8.5 Calcium, Serum 9.4 mg/dL (Normal) Range: 8.7-10.3 Carbon Dioxide, Total 26 mmol/L (Normal) Range: 18-29 Chloride, Serum 101 mmol/L (Normal) Range: 96-106 Potassium, Serum 5.1 mmol/L (Normal) Range: 3.5-5.2 Sodium, Serum 143 mmol/L (Normal) Range: 134-144 BUN/Creatinine Ratio 19 (Normal) Range: 12-28 eGFR If Africn Am 67 mL/min/1.73 (Normal) eGFR If NonAfricn Am 58 mL/min/1.73 (Abnormal) Creatinine, Serum 1.00 mg/dL (Normal) Range: 0.57-1.00 BUN 19 mg/dL (Normal) Range: 8-27 Glucose, Serum 106 mg/dL (Abnormal) Range: 65-99 4-Twa-160313:15 CBC W/AUTO DIFF WBC (04337) Comments: PATIENT NOT FASTINGPERFORMED BY: [employer] Lwuumv9011 [facility] [id number] Immature Grans (Abs) 0.0 {x10E3/uL} (Normal) Range: 0.0-0.1 Immature Granulocytes 0 % (Normal) Baso (Absolute) 0.1 {x10E3/uL} (Normal) Range: 0.0-0.2 Eos (Absolute) 0.1 {x10E3/uL} (Normal) Range: 0.0-0.4 Monocytes(Absolute) 0.3 {x10E3/uL} (Normal) Range: 0.1-0.9 Lymphs (Absolute) 1.5 {x10E3/uL} (Normal) Range: 0.7-3.1 Neutrophils (Absolute) 2.5 {x10E3/uL} (Normal) Range: 1.4-7.0 Basos 2 % (Normal) Eos 3 % (Normal) Monocytes 8 % (Normal) Lymphs 32 % (Normal) Neutrophils 55 % (Normal) Platelets 256 {x10E3/uL} (Normal) Range: 150-379 RDW 13.2 % (Normal) Range: 12.3-15.4 MCHC 32.6 g/dL (Normal) Range: 31.5-35.7 MCH 29.7 pg (Normal) Range: 26.6-33.0 MCV 91 fL (Normal) Range: 79-97 Hematocrit 40.5 % (Normal) Range: 34.0-46.6 Hemoglobin 13.2 g/dL (Normal) Range: 11.1-15.9 Comments: Please note reference interval change RBC 4.45 {x10E6/uL} (Normal) Range: 3.77-5.28 WBC 4.5 {x10E3/uL} (Normal) Range: 3.4-10.8 :23 CBC W/Diff, Automated Comments: [facility] Agpmppbhmt[address] [place], [place], [id number] Absolute Lymph 1.81 {X10_3/ul} (Normal) Range: 0.83-4.51 Absolute Neut 2.3 {X10_3/uL} (Normal) Range: 2.0-7.7 IM GRAN % 0.200 % (Normal) Range: 0.0-0.9 Comments: IG% - Immature Granulocytes (promyelocytes, myelocytes andmetamyelocytes) > 1% indicates that a LEFT SHIFT is Present. BASO% 2.7 % (Abnormal) Range: 0-1 EO% 2.9 % (Normal) Range: 0-5 MONO% 8.7 % (Normal) Range: 0-10 LY% 37.6 % (Normal) Range: 19-41 NEUT% 47.9 % (Normal) Range: 47-70 MPV 10.8 fL (Normal) Range: 6.2-12.0 PLT 231 K/mm3 (Normal) Range: 150-450 RDW SD 41.8 fL (Normal) Range: 35.1-43.9 RDW CV 12.5 % (Normal) Range: 11.6-14.6 MCHC 31.9 {g/gl} (Abnormal) Range: 32-36 MCH 29.8 pg (Normal) Range: 27.0-32.0 MCV 93.5 fL (Normal) Range: 81-99 HCT 41.7 % (Normal) Range: 37-47 HGB 13.3 g/dL (Normal) Range: 12.0-15.0 RBC 4.46 {M/mm3} (Normal) Range: 4.2-5.4 WBC 4.8 K/mm3 (Normal) Range: 4.4-11.0 73-Tvd-63942:23 Comprehensive Metabolic Profil Comments: [facility] Kqtzwjvzti8[address] [place], [place], [address] GAP 5 (Normal) Range: 5-15 CO2 31.0 mmol/L (Normal) Range: 21.0-32.0 CL 103 mmol/L (Normal) Range: 98-107 K 4.3 mmol/L (Normal) Range: 3.5-5.1 NA 139 mmol/L (Normal) Range: 136-145 T BILI 0.60 mg/dL (Normal) Range: 0.20-1.00 ALT 19 U/L (Normal) Range: 12-78 ALK P 74 U/L (Normal) Range: 45-117 AST 18 U/L (Normal) Range: 15-37 CA 9.2 mg/dL (Normal) Range: 8.5-10.1 A/G 1.3 {RATIO} (Normal) Range: 0.9-2.4 GLOB 3.1 g/dL (Normal) Range: 2.3-3.5 ALB 3.9 g/dL (Normal) Range: 3.4-5.0 T PROT 7.0 g/dL (Normal) Range: 6.4-8.2 BUN/CRE 28.6 {RATIO} (Abnormal) Range: 10-20 EST GFR - AA 83 mL/min (Normal) Comments: GFR Calc EST GFR 69 mL/min (Normal) Comments: Non- GFR Calc CREAT,SERUM 0.87 mg/dL (Normal) Range: 0.55-1.02 Comments: The validity of the calculated GFR AND GFRAA in patients over70 years has not been determined. Clinical correlation isessential. BUN 25 mg/dL (Abnormal) Range: 7-18 GLU 90 mg/dL (Normal) Range: 70-110 :23 CRP, High Sensitivity Cardiac Comments: [facility] F[address]rb[address]xpl[address] [place], [place], [address] CRP HIGH SENS 2.99 mg/L (Normal) Comments: Low Relative Risk of CVD <1.0 mg/L Average Relative Risk of CVD 1.0 - 3.0 mg/L High Relative Risk of CVD >3.0 mg/L :23 Erythrocyte Sed Rate Comments: [facility] Cfsnwbwttz6[address] [place], [place], [address] SED RATE 2 mm/h (Normal) Range: 0-30 :55 ASPIRATION (SLIDES ONLY) See Note (Normal) Comments: [facility] Nq[address]fw[address] [place], [place], [address] Comments: Patient: SUSANNE TORRES : 1950 (66/F) Acct Num: [id number] Phys: Keanu Tsang MD Unit Num: [id number] Loc: [facility] Specimen: [id number] Received: 01/23/17 - 1603 Spec Type: ASPIRATION TISSUES TISSUES: COMMENT Immediate cytologic evaluation to determine adequacy is not applicable. Correlation with clinical, radiologic findings and appropriate fol low up are necessary. CYTOLOGY GROSS Received are 12 smears labeled with the patient's name and designated per the requisition as left thyroid FNA. Submitted for staining. 01/24/17 TC:5 CPT: 37018 CYTOLOGY STUDY Slides are reviewed. The specimen is adequate for evaluation. The specimen consists of benign follicular cells and colloid. DIAGNOSIS CYTOLOGY Left thyroid, ultrasou nd-guided FNA (smears): Consistent with benign colloid nodule. SJ:horacio 01/25/17 HEADER OPERATION: Ultrasound-guided fine needle aspiration left thyroid PRE-OP DIAGNOSIS: Multinodular goite r TISSUE SUBMITTED: Left thyroid FNA 12 slides Signed Julio Alanis 01/25/17 <signature on file> :39 T3, FREE (TRIDOTHYRONINE) (97830) Comments: PATIENT NOT FASTINGPERFORMED BY: [address] [id number] Triiodothyronine,Free,Serum 2.6 pg/mL (Normal) Range: 2.0-4.4 :39 T4, FREE (THYROXINE) (23677) Comments: PATIENT NOT FASTINGPERFORMED BY: [address] [id number] T4,Free(Direct) 1.49 ng/dL (Normal) Range: 0.82-1.77 :39 TSH (01719) Comments: PATIENT NOT FASTINGPERFORMED BY: [address] [id number] TSH 1.970 {uIU/mL} (Normal) Range: 0.450-4.500 4-Qjg-875975:31 ANTINUCLEAR ANTIBODIES DIRECT Comments: [facility] (refer to report for specific site)refer to report for address and phone number BIBIANA-DIRECT Positive (Abnormal) Comments: Performed at: [address] [id number] Director: Joaquim Barrett PhD, Phone: [phone] :[phone] CBC W/Diff, Automated Comments: [facility] [address]rmrhkldza[address] [place], [place], [id number] Absolute Lymph 1.15 {X10_3/ul} (Normal) Range: 0.83-4.51 Absolute Neut 2.7 {X10_3/uL} (Normal) Range: 2.0-7.7 IM GRAN % 0.200 % (Normal) Range: 0.0-0.9 Comments: IG% - Immature Granulocytes (promyelocytes, myelocytes andmetamyelocytes) > 1% indicates that a LEFT SHIFT is Present. BASO% 2.0 % (Abnormal) Range: 0-1 EO% 3.2 % (Normal) Range: 0-5 MONO% 7.0 % (Normal) Range: 0-10 LY% 26.1 % (Normal) Range: 19-41 NEUT% 61.5 % (Normal) Range: 47-70 MPV 10.1 fL (Normal) Range: 6.2-12.0 PLT 206 K/mm3 (Normal) Range: 150-450 RDW SD 39.4 fL (Normal) Range: 35.1-43.9 RDW CV 12.0 % (Normal) Range: 11.6-14.6 MCHC 33.2 {g/gl} (Normal) Range: 32-36 MCH 30.5 pg (Normal) Range: 27.0-32.0 MCV 91.7 fL (Normal) Range: 81-99 HCT 38.5 % (Normal) Range: 37-47 HGB 12.8 g/dL (Normal) Range: 12.0-15.0 RBC 4.20 {M/mm3} (Normal) Range: 4.2-5.4 WBC 4.4 K/mm3 (Normal) Range: 4.4-11.0 2-Amn-693097:31 Magnesium Comments: [facility] [address] [place], [place], [phone]) MG 2.1 mg/dL (Normal) Range: 1.8-2.4 7-Swg-455939:31 Protein+Creatinine Ratio,Urine Comments: [facility] [address] [place], [place], [address] PROT:CRE RATIO 88 {mg/g_CRE} (Normal) Range: 0-200 PROTEIN,UR.RAN. 7.2 mg/dL (Normal) UR CREAT 81.80 mg/dL (Normal) 5-Ooc-939777:31 Renal Profile Comments: [facility] [address] [place], [place], [address](056) CO2 25.0 mmol/L (Normal) Range: 21.0-32.0 CL 104 mmol/L (Normal) Range: 98-107 K 3.8 mmol/L (Normal) Range: 3.5-5.1 NA 139 mmol/L (Normal) Range: 136-145 PHOS 2.8 mg/dL (Normal) Range: 2.5-4.9 CA 9.0 mg/dL (Normal) Range: 8.5-10.1 ALB 3.9 g/dL (Normal) Range: 3.4-5.0 BUN/CRE 27.4 {RATIO} (Abnormal) Range: 10-20 EST GFR - AA 83 mL/min (Normal) Comments: GFR Calc EST GFR 68 mL/min (Normal) Comments: Non- GFR Calc CREAT,SERUM 0.88 mg/dL (Normal) Range: 0.55-1.02 Comments: The validity of the calculated GFR AND GFRAA in patients over70 years has not been determined. Clinical correlation isessential. BUN 24 mg/dL (Abnormal) Range: 7-18 GLU 121 mg/dL (Abnormal) Range: 70-110 Comments: Fasting Glucose result from 110 to <126 mg/dLsuggests IMPAIRED HOMEOSTASIS per A.D.A. criteria. 4-Lof-520563:31 Vitamin D,25 Hydroxy Comments: [facility] Gjvdsifygy3084 [facility] [place], [address] Vitamin D 25-OH 48.2 ng/mL (Normal) Comments: Vitamin D 25(OH) Status Range Deficiency <20 ng/mL (50nmol/L) Insuffciency 20 - 30 ng/mL (50 - 75 nmol/L) Sufficiency 30 - 100 ng/mL (75 - 250 nmol/L) Toxicity >100 ng/mL (>250 nmol/L) 22-Gmi-16154:45 Culture, Urine Comments: [facility] Puinrkjrqg6904 [facility] [place], [address] CUUR See Note (Normal) Comments: Urine CultureBelow infection level. ORGANISM 1: Mixed Gram Positive OrganismsColony Count <1000 86-Mnl-216453:03 CALCIFIDIOL (08633) VIT D 25 Comments: PATIENT NOT FASTINGPERFORMED BY: [facility] [address] StreetDublin [place] [id number] Vitamin D, 25-Hydroxy 52.3 ng/mL (Normal) Range: 30.0-100.0 Comments: Vitamin D deficiency has been defined by the [place] of[employer]icine and an Endocrine Society practice guideline as alevel of serum 25-OH vitamin D less than 20 ng/mL (1,2).The Endocrine Society went on to further define vitamin Dinsufficiency as a level between 21 and 29 ng/mL (2).1. IOM ([place] of Medicine). 2010. Dietary reference intakes for calcium and D. [place]: The National Academies Press.2. Micky MF, [place], Katrin CAMARGO, et al. Evaluation, treatment, and prevention of vitamin D deficiency: an Endocrine Society clinical practice guideline. JCEM. 2010; 96(7):1911-30. 04-Wzk-277990:03 Folate (44991) Comments: PATIENT NOT FASTINGPERFORMED BY: [facility] Vqvxba1097 [address] [facility] [place] [id number] Folate (Folic Acid), Serum >20.0 ng/mL (Normal) Comments: A serum folate concentration of less than 3.1 ng/mL isconsidered to represent clinical deficiency. 93-Tkv-974570:03 VITAMIN B-12 (CYANOCOBALAMIN) Comments: PATIENT NOT FASTINGPERFORMED BY: [facility] Xjiyxm9850 [address] [facility] [place] [id number] ([address]) Vitamin B12 469 pg/mL (Normal) Range: 211-946 95-Adu-322192:03 TSH (20227) Comments: PATIENT NOT FASTINGPERFORMED BY: [facility] Bbqhge9989 [address] [facility] [place] [id number] TSH 2.240 {uIU/mL} (Normal) Range: 0.450-4.500 :03 SED RATE ERYTHROCYTE (27322) Comments: PATIENT NOT FASTINGPERFORMED BY: [facility] Oleutg9368 [address] [facility] [place] [id number] Sedimentation Rate-Westergren 2 mm/h (Normal) Range: 0-40 21-Rye-958623:03 RHEUMATOID FACTOR-QUANT (80563) Comments: PATIENT NOT FASTINGPERFORMED BY: [facility] CenterYzawka2686 [facility] [id number] RA Latex Turbid. 12.1 {IU/mL} (Normal) Range: 0.0-13.9 92-Wuu-238855:03 METABOLIC PANEL, COMPREHENSIVE Comments: PATIENT NOT FASTINGPERFORMED BY: [facility] CenterCegelm1912 [facility] [id number] (80253) ALT (SGPT) 15 [iU]/L (Normal) Range: 0-32 AST (SGOT) 22 [iU]/L (Normal) Range: 0-40 Alkaline Phosphatase, S 61 [iU]/L (Normal) Range: 39-117 Bilirubin, Total 0.6 mg/dL (Normal) Range: 0.0-1.2 A/G Ratio 2.4 (Normal) Range: 1.1-2.5 Comments: Effective October 01, 2016 the reference interval for A/G Ratio will be changing to: Age Male Female 0 - 7 d ays 1.1 - 2.3 1.1 - 2.3 8 - 30 days 1.2 - 2.8 1.2 - 2.8 1 - 6 months 1.3 - 3.6 1.3 - 3.6 7 months - 5 years 1.5 - 2.6 1.5 - 2.6 > 5 years 1.2 - 2.2 1.2 - 2.2 Globulin, Total 1.9 g/dL (Normal) Range: 1.5-4.5 Albumin, Serum 4.6 g/dL (Normal) Range: 3.6-4.8 Protein, Total, Serum 6.5 g/dL (Normal) Range: 6.0-8.5 Calcium, Serum 9.6 mg/dL (Normal) Range: 8.7-10.3 Carbon Dioxide, Total 24 mmol/L (Normal) Range: 18-29 Chloride, Serum 100 mmol/L (Normal) Range: 96-106 Potassium, Serum 4.7 mmol/L (Normal) Range: 3.5-5.2 Sodium, Serum 140 mmol/L (Normal) Range: 134-144 BUN/Creatinine Ratio 26 (Normal) Range: 11-26 eGFR If Africn Am 71 mL/min/1.73 (Normal) eGFR If NonAfricn Am 61 mL/min/1.73 (Normal) Creatinine, Serum 0.96 mg/dL (Normal) Range: 0.57-1.00 BUN 25 mg/dL (Normal) Range: 8-27 Glucose, Serum 89 mg/dL (Normal) Range: 65-99 39-Cqg-902372:03 C-REACTIVE PROTEIN (58440) Comments: PATIENT NOT FASTINGPERFORMED BY: [address] [id number] C-Reactive Protein, Quant 0.4 mg/L (Normal) Range: 0.0-4.9 :03 CBC (AUTO) (11960) Comments: PATIENT NOT FASTINGPERFORMED BY: [address] [id number] Platelets 220 {x10E3/uL} (Normal) Range: 150-379 RDW 13.1 % (Normal) Range: 12.3-15.4 MCHC 32.8 g/dL (Normal) Range: 31.5-35.7 MCH 30.1 pg (Normal) Range: 26.6-33.0 MCV 92 fL (Normal) Range: 79-97 Hematocrit 41.1 % (Normal) Range: 34.0-46.6 Hemoglobin 13.5 g/dL (Normal) Range: 11.1-15.9 RBC 4.49 {x10E6/uL} (Normal) Range: 3.77-5.28 WBC 4.7 {x10E3/uL} (Normal) Range: 3.4-10.8 33-Gle-941688:03 BIBIANA (ANTINUCLEAR ANTIBODY) Comments: PATIENT NOT FASTINGPERFORMED BY: [address] [id number] (15442) BIBIANA Direct Positive (Abnormal) :06 ANTINUCLEAR ANTIBODIES DIRECT Comments: CMP,CBCD FOR DR PHELPS,CBCD FOR DR Hannah (refer to report for specific site)refer to report for address and phone number BIBIANA-DIRECT Negative (Normal) Comments: Performed at: [address] [id number] Director: Joaquim Barrett PhD, Phone: [phone] :[phone] CBC W/Diff, Automated Comments: CMP,CBCD FOR DR PHELPS,CBCD FOR DR [facility] Fkpuzkymco[address] [place], [place], [id number] Absolute Lymph 1.89 {X10_3/ul} (Normal) Range: 0.83-4.51 Absolute Neut 1.5 {X10_3/uL} (Abnormal) Range: 2.0-7.7 IM GRAN % 0.200 % (Normal) Range: 0.0-0.9 Comments: IG% - Immature Granulocytes (promyelocytes, myelocytes andmetamyelocytes) > 1% indicates that a LEFT SHIFT is Present. BASO% 3.0 % (Abnormal) Range: 0-1 EO% 4.7 % (Normal) Range: 0-5 MONO% 8.4 % (Normal) Range: 0-10 LY% 46.9 % (Abnormal) Range: 19-41 NEUT% 36.8 % (Abnormal) Range: 47-70 MPV 10.5 fL (Normal) Range: 6.2-12.0 PLT 186 K/mm3 (Normal) Range: 150-450 RDW SD 42.0 fL (Normal) Range: 35.1-43.9 RDW CV 12.6 % (Normal) Range: 11.6-14.6 MCHC 32.1 {g/gl} (Normal) Range: 32-36 MCH 30.1 pg (Normal) Range: 27.0-32.0 MCV 93.8 fL (Normal) Range: 81-99 HCT 39.3 % (Normal) Range: 37-47 HGB 12.6 g/dL (Normal) Range: 12.0-15.0 RBC 4.19 {M/mm3} (Abnormal) Range: 4.2-5.4 WBC 4.0 K/mm3 (Abnormal) Range: 4.4-11.0 :06 Complement C3 Comments: CMP,CBCD FOR DR PHELPS,CBCD FOR DR Hannah (refer to report for specific site)refer to report for address and phone number COMP C3 96 mg/dL (Normal) Range: 82-167 Comments: Performed at: - [facility] [address] [id number] Director: Joaquim Barrett PhD, Phone: [phone] :[phone] Complement C4 Comments: CMP,CBCD FOR DR PHELPS,CBCD FOR DR Hannah (refer to report for specific site)refer to report for address and phone number COMP C4 14 mg/dL (Normal) Range: 14-44 :06 Comprehensive Metabolic Profil Comments: [facility] Yciafhkpnc3482 [place], [place], [id number] GAP 8 (Normal) Range: 5-15 CO2 30.0 mmol/L (Normal) Range: 21.0-32.0 CL 105 mmol/L (Normal) Range: 98-107 K 3.9 mmol/L (Normal) Range: 3.5-5.1 NA 143 mmol/L (Normal) Range: 136-145 T BILI 0.50 mg/dL (Normal) Range: 0.20-1.00 ALT 19 U/L (Normal) Range: 12-78 ALK P 55 U/L (Normal) Range: 45-117 AST 18 U/L (Normal) Range: 15-37 CA 8.6 mg/dL (Normal) Range: 8.5-10.1 A/G 1.5 {RATIO} (Normal) Range: 0.9-2.4 GLOB 2.5 g/dL (Normal) Range: 2.3-3.5 ALB 3.8 g/dL (Normal) Range: 3.4-5.0 T PROT 6.3 g/dL (Abnormal) Range: 6.4-8.2 BUN/CRE 24.5 {RATIO} (Abnormal) Range: 10-20 EST GFR - AA 80 mL/min (Normal) Comments: GFR Calc EST GFR 66 mL/min (Normal) Comments: Non- GFR Calc CREAT,SERUM 0.90 mg/dL (Normal) Range: 0.55-1.02 Comments: The validity of the calculated GFR AND GFRAA in patients over70 years has not been determined. Clinical correlation isessential. BUN 22 mg/dL (Abnormal) Range: 7-18 GLU 81 mg/dL (Normal) Range: 70-110 :06 Magnesium Comments: CMP,CBCD [facility] Bzgamcybci5024 [address] [place], [address] MG 2.1 mg/dL (Normal) Range: 1.8-2.4 :06 Protein+Creatinine Ratio,Urine Comments: CMP,CBCD [facility] Cxdkxjhdic8637 [address] [place], [address] PROT:CRE RATIO 128 {mg/g_CRE} (Normal) Range: 0-200 PROTEIN,UR.RAN. 13.8 mg/dL (Abnormal) UR CREAT 108.00 mg/dL (Normal) :06 Vitamin D,25 Hydroxy Comments: CMP,CBCD [facility] DR [facility] Ltlfqhmieg0400 [place], [address] Vitamin D 25-OH 48.7 ng/mL (Normal) Comments: Vitamin D 25(OH) Status Range Deficiency <20 ng/mL (50nmol/L) Insuffciency 20 - 30 ng/mL (50 - 75 nmol/L) Sufficiency 30 - 100 ng/mL (75 - 250 nmol/L) Toxicity >100 ng/mL (>250 nmol/L) 6-Zpy-173430:07 Fecal Occult Blood , Office (59573) Fecal Occult Blood , Office (Inhouse) negative (Normal) 92-Qbt-07802:22 CBC W/Diff, Automated Comments: RENAL AND MG ARE [facility] Kdtlamwmng3638 [address] [place], [address] Absolute Lymph 1.92 {X10_3/ul} (Normal) Range: 0.83-4.51 Absolute Neut 1.5 {X10_3/uL} (Abnormal) Range: 2.0-7.7 IM GRAN % 0.000 % (Normal) Range: 0.0-0.9 Comments: IG% - Immature Granulocytes (promyelocytes, myelocytes andmetamyelocytes) > 1% indicates that a LEFT SHIFT is Present. BASO% 3.6 % (Abnormal) Range: 0-1 EO% 6.5 % (Abnormal) Range: 0-5 MONO% 8.9 % (Normal) Range: 0-10 LY% 46.0 % (Abnormal) Range: 19-41 NEUT% 35.0 % (Abnormal) Range: 47-70 MPV 10.3 fL (Normal) Range: 6.2-12.0 PLT 182 K/mm3 (Normal) Range: 150-450 RDW SD 43.1 fL (Normal) Range: 35.1-43.9 RDW CV 12.5 % (Normal) Range: 11.6-14.6 MCHC 32.0 {g/gl} (Normal) Range: 32-36 MCH 30.1 pg (Normal) Range: 27.0-32.0 MCV 94.1 fL (Normal) Range: 81-99 HCT 39.7 % (Normal) Range: 37-47 HGB 12.7 g/dL (Normal) Range: 12.0-15.0 RBC 4.22 {M/mm3} (Normal) Range: 4.2-5.4 WBC 4.2 K/mm3 (Abnormal) Range: 4.4-11.0 [id number] Comprehensive Metabolic Profil Comments: RENAL AND MG ARE FOR [facility]. [facility] [id number] [place], [address] GAP 6 (Normal) Range: 5-15 CO2 31.0 mmol/L (Normal) Range: 21.0-32.0 CL 105 mmol/L (Normal) Range: 98-107 K 4.4 mmol/L (Normal) Range: 3.5-5.1 NA 142 mmol/L (Normal) Range: 136-145 T BILI 0.40 mg/dL (Normal) Range: 0.20-1.00 ALT 16 U/L (Normal) Range: 12-78 ALK P 59 U/L (Normal) Range: 50-136 AST 18 U/L (Normal) Range: 15-37 CA 8.6 mg/dL (Normal) Range: 8.5-10.1 A/G 1.4 {RATIO} (Normal) Range: 0.9-2.4 GLOB 2.6 g/dL (Normal) Range: 2.3-3.5 ALB 3.6 g/dL (Normal) Range: 3.4-5.0 T PROT 6.2 g/dL (Abnormal) Range: 6.4-8.2 BUN/CRE 24.4 {RATIO} (Abnormal) Range: 10-20 EST GFR - AA 76 mL/min (Normal) Comments: GFR Calc EST GFR 63 mL/min (Normal) Comments: Non- GFR Calc CREAT,SERUM 0.94 mg/dL (Normal) Range: 0.55-1.20 Comments: The validity of the calculated GFR AND GFRAA in patients over70 years has not been determined. Clinical correlation isessential. BUN 23 mg/dL (Abnormal) Range: 7-18 GLU 87 mg/dL (Normal) Range: 70-110 :22 Lipid Profile Comments: RENAL AND MG ARE FOR DR. [facility] [id number] [place], [place], [phone]) VLDL 12 mg/dL (Normal) Range: 5-40 LDL 81 mg/dL (Normal) Range: 0-130 HDL 62 mg/dL (Normal) Comments: The drugs N-Acetylcysteine and Metamizole may falsely deressthis assay. Reference Range HDL <40 mg/dL Low HDL Cholesterol HDL >or= 60 mg/dL High HDL Cholesterol TRIG 58 mg/dL (Normal) Comments: The drugs N-Acetylcysteine and Metamizole may falsely deressthis assay.Serum Triglycerides Reference Interval Normal <150 mg/dL Borderline high 150 - 199 mg/dL High 200 - 499 mg/dL Very High > or = 500 mg/dL CHOL 155 mg/dL (Normal) Comments: <200 mg/dL Desirable 200-240 mg/dL Borderline >240 mg/dL High Risk :22 Magnesium Comments: RENAL AND MG ARE FOR DR. [facility] [id number] [place], [place], [phone]) MG 2.1 mg/dL (Normal) Range: 1.8-2.4 :22 Phosphorus Comments: [facility] [id number]. [place], [address] PHOS 2.6 mg/dL (Normal) Range: 2.5-4.9 :22 Thyroid Stim Hormone (TSH) Comments: [facility] [address] [place], [address] TSH 2.69 {uIU/mL} (Normal) Range: 0.358-3.74 :22 Vitamin D,25 Hydroxy Comments: RENAL AND MG ARE FOR [facility] [address]fr[address] [place], [address] Vitamin D 25-OH 51.1 ng/mL (Normal) Comments: Vitamin D 25(OH) Status Range Deficiency <20 ng/mL (50nmol/L) Insuffciency 20 - 30 ng/mL (50 - 75 nmol/L) Sufficiency 30 - 100 ng/mL (75 - 250 nmol/L) Toxicity >100 ng/mL (>250 nmol/L) :50 ANTINUCLEAR ANTIBODIES DIRECT Comments: [facility] (refer to report for specific site)refer to report for address and phone number BIBIANA-DIRECT Positive (Abnormal) Comments: Performed at: [facility] [address] [id number] Director: Joaquim Barrett PhD, Phone: [phone] :50 CBC W/Diff, Automated Comments: [facility] [address] [place], [address] Absolute Lymph 1.76 {X10_3/ul} (Normal) Range: 0.83-4.51 Absolute Neut 2.8 {X10_3/uL} (Normal) Range: 2.0-7.7 IM GRAN % 0.200 % (Normal) Range: 0.0-0.9 Comments: IG% - Immature Granulocytes (promyelocytes, myelocytes andmetamyelocytes) > 1% indicates that a LEFT SHIFT is Present. BASO% 2.5 % (Abnormal) Range: 0-1 EO% 2.7 % (Normal) Range: 0-5 MONO% 6.9 % (Normal) Range: 0-10 LY% 33.6 % (Normal) Range: 19-41 NEUT% 54.1 % (Normal) Range: 47-70 MPV 9.8 fL (Normal) Range: 6.2-12.0 PLT 252 K/mm3 (Normal) Range: 150-450 RDW SD 42.6 fL (Normal) Range: 35.1-43.9 RDW CV 12.7 % (Normal) Range: 11.6-14.6 MCHC 32.5 {g/gl} (Normal) Range: 32-36 MCH 30.6 pg (Normal) Range: 27.0-32.0 MCV 94.2 fL (Normal) Range: 81-99 HCT 40.6 % (Normal) Range: 37-47 HGB 13.2 g/dL (Normal) Range: 12.0-15.0 RBC 4.31 {M/mm3} (Normal) Range: 4.2-5.4 WBC 5.2 K/mm3 (Normal) Range: 4.4-11.0 :50 Complement C3 Comments: [facility] (refer to report for specific site)refer to report for address and phone number COMP C3 106 mg/dL (Normal) Range: 82-167 Comments: Performed at: [address] [id number] Director: Joaquim Barrett PhD, Phone: [phone] :50 Complement C4 Comments: [facility] (refer to report for specific site)refer to report for address and phone number COMP C4 15 mg/dL (Normal) Range: 14-44 :50 Comprehensive Metabolic Profil Comments: ORDERED CMP CBCD PROCRE UA ORDERED VITD CMP BIBIANA CBCD C3 C4 MG PROCRE LUIS ORDERED [facility] [address] [place], [place], [id number] GAP 5 (Normal) Range: 5-15 CO2 28.0 mmol/L (Normal) Range: 21.0-32.0 CL 109 mmol/L (Abnormal) Range: 98-107 K 4.1 mmol/L (Normal) Range: 3.5-5.1 NA 142 mmol/L (Normal) Range: 136-145 T BILI 0.50 mg/dL (Normal) Range: 0.20-1.00 ALT 26 U/L (Normal) Range: 12-78 ALK P 65 U/L (Normal) Range: 50-136 AST 24 U/L (Normal) Range: 15-37 CA 8.4 mg/dL (Abnormal) Range: 8.5-10.1 A/G 1.3 {RATIO} (Normal) Range: 0.9-2.4 GLOB 2.9 g/dL (Normal) Range: 2.3-3.5 ALB 3.8 g/dL (Normal) Range: 3.4-5.0 T PROT 6.7 g/dL (Normal) Range: 6.4-8.2 BUN/CRE 22.3 {RATIO} (Abnormal) Range: 10-20 EST GFR - AA 86 mL/min (Normal) Comments: GFR Calc EST GFR 71 mL/min (Normal) Comments: Non- GFR Calc CREAT,SERUM 0.85 mg/dL (Normal) Range: 0.55-1.20 Comments: The validity of the calculated GFR AND GFRAA in patients over70 years has not been determined. Clinical correlation isessential. BUN 19 mg/dL (Abnormal) Range: 7-18 GLU 99 mg/dL (Normal) Range: 70-110 :50 Culture, Urine Comments: [facility] [address] [place], [place], [id number] CUUR See Note (Normal) Comments: Urine CultureCulture exhibits no growth. :50 Magnesium Comments: ORDERED CMP CBCD PROCRE UACDRZOË ORDERED VITD CMP BIBIANA CBCD C3 C4 MG PROCRE UADR.ENDY [facility] [address] [place], [place], [id number] MG 2.1 mg/dL (Normal) Range: 1.8-2.4 :50 Protein+Creatinine Ratio,Urine Comments: [facility] [address]xs[address] [place], [address] PROT:CRE RATIO 161 {mg/g_CRE} (Normal) Range: 0-200 PROTEIN,UR.RAN. 10.6 mg/dL (Normal) UR CREAT 65.90 mg/dL (Normal) 15-Qst-12607:50 Urinalysis, Routine (Dipstick) Comments: How was Urine Obtained? CLEAN [facility] [address] [place], [address] LEUK ESTERASE 25 /ul (Abnormal) OCCULT BLOOD-UR Negative /ul (Normal) NITRITE UR Negative (Normal) UROBILI Normal mg/dL (Normal) PROT DIPSTX Negative mg/dL (Normal) pH UR 6.0 (Normal) Range: 5.0 - 8.0 SP.GR. DIPSTX 1.020 (Normal) Range: 1.002-1.030 KETONE UR Negative mg/dL (Normal) BILIRUBIN URINE Negative mg/dL (Normal) GLUCOSE, UR Normal mg/dL (Normal) CLARITY Clear (Normal) COLOR Yellow (Normal) 49-Ejf-87072:50 Vitamin D,25 Hydroxy Comments: [facility] [address] [place], [address] Vitamin D 25-OH 58.7 ng/mL (Normal) Comments: Vitamin D 25(OH) Status Range Deficiency <20 ng/mL (50nmol/L) Insuffciency 20 - 30 ng/mL (50 - 75 nmol/L) Sufficiency 30 - 100 ng/mL (75 - 250 nmol/L) Toxicity >100 ng/mL (>250 nmol/L) :33 Lipid Profile Comments: [facility] [address] [place], [address] VLDL 18 mg/dL (Normal) Range: 5-40 LDL 85 mg/dL (Normal) Range: 0-130 HDL 62 mg/dL (Normal) Comments: Reference Range HDL <40 mg/dL Low HDL Cholesterol HDL >or= 60 mg/dL High HDL Cholesterol TRIG 89 mg/dL (Normal) Comments: Serum Triglycerides Reference Interval Normal <150 mg/dL Borderline high 150 - 199 mg/dL High 200 - 499 mg/dL Very High > or = 500 mg/dL CHOL 165 mg/dL (Normal) Comments: <200 mg/dL Desirable 200-240 mg/dL Borderline >240 mg/dL High Risk 27-Jul-20158:33 Vitamin D,25 Hydroxy Comments: [facility] [address]fr[address]im57[address], [address] Vitamin D 25-OH 43.3 ng/mL (Normal) Comments: Vitamin D 25(OH) Status Range Deficiency <20 ng/mL (50nmol/L) Insuffciency 20 - 30 ng/mL (50 - 75 nmol/L) Sufficiency 30 - 100 ng/mL (75 - 250 nmol/L) Toxicity >100 ng/mL (>250 nmol/L) 92-Nzf-036648:12 EBV Acute Prof IgG / IgM Comments: [facility] (refer to report for specific site)refer to report for address and phone number INTERPRETATION Comment (Normal) Comments: EBV Interpretation ChartInterpretation EBV-IgM EA(D)-IgG VCA-IgG EBNA-IgGEBV Seronegative - - - -Early Phase + - - -Acute Primary + +or- + -InfectionConvalescence/Past - +or- + +InfectionReactivated +or- + + +Infection + Antibody Present - Antibody Ab sentPerformed at: [facility] [address] [id number] Director: Joaquim Barrett PhD, Phone: [phone] EB-NAg [id number] 38.3 U/mL (Abnormal) Range: 0.0-17.9 Comments: Negative <18.0 Equivocal 18.0 - 21.9 Positive >21.9 EB-VCA [id number] 306.0 U/mL (Abnormal) Range: 0.0-17.9 Comments: Negative <18.0 Equivocal 18.0 - 21.9 Positive >21.9 EB-EA IgG 00660 <9.0 U/mL (Normal) Range: 0.0-8.9 Comments: Negative < 9.0 Equivocal 9.0 - 10.9 Positive >10.9 EB-VCA [id number] < 36.0 U/mL (Normal) Range: 0.0-35.9 Comments: Negative <36.0 Equivocal 36.0 - 43.9 Positive >43.9 :15 Immunofixation Urine Comments: PATIENT STATES FLU X'S 2 WAS DONE AT THE OFFICE BY ONE OFTHE NURSES.[facility] (refer to report for specific site)refer to report for address and phone number CLIVE Urine Comment (Normal) Comments: No monoclonality detected.Performed at: [facility] [address] [id number] Director: Joaquim Barrett PhD, Phone: [phone] 56-Ost-846781:15 Immunofixation, Serum Comments: PATIENT STATES FLU X'S 2 WAS DONE AT THE OFFICE BY ONE OFTHE NURSES.[facility] (refer to report for specific site)refer to report for address and phone number CLIVE RESULT,S Comment (Normal) Comments: An apparent normal immunofixation pattern. IMMUNOGL M 1792 83 mg/dL (Normal) Range: 40-230 IMMUNO A 1784 113 mg/dL (Normal) Range: 91-414 IMMUNO G 1776 697 mg/dL (Abnormal) Range: 700-1600 80-Tar-867712:15 [place] [employer] Chains Comments: PATIENT STATES FLU X'S 2 WAS DONE AT THE OFFICE BY ONE OFTHE NURSES.[facility] (refer to report for specific site)refer to report for address and phone number KAPPA/LAMBDA % 1.21 (Normal) Range: 0.26-1.65 FR LAMBDA LT CH 10.06 mg/L (Normal) Range: 5.71-26.30 FR KAPPA LT CHN 12.15 mg/L (Normal) Range: 3.30-19.40 :15 Protein Electro.Ur-Random Comments: PATIENT STATES FLU X'S 2 WAS DONE AT THE OFFICE BY ONE OFTHE NURSES.[facility] (refer to report for specific site)refer to report for address and phone number M-SPIKE,U (Normal) Comments: Not Observed GAMMA GLOB,U 15.3 % (Normal) BETA GLOB,U 30.8 % (Normal) RQBUA-6-JOKA,U 16.9 % (Normal) VWQKF-9-XJNV,U 1.8 % (Normal) ALBUMIN,UR 35.1 % (Normal) PROTEIN,UR 13.0 mg/dL (Normal) Range: 0.0-15.0 :15 Protein Electroph, S Comments: PATIENT STATES FLU X'S 2 WAS DONE AT THE OFFICE BY ONE OFTHE NURSES.[facility] (refer to report for specific site)refer to report for address and phone number NOTE Comment (Normal) Comments: Protein electrophoresis scan will follow via computer,mail, or book packer delivery. NOTE: Comment (Normal) Comments: The SPE pattern appears essentially unremarkable. Evidenceof monoclonal protein is not apparent. INTERPRETATION Comment (Normal) Comments: Protein electrophoresis scan will follow via computer,mail, or book packer delivery. A/G RATIO 1.7 (Normal) Range: 0.7-2.0 GLOBULIN, TOTAL 2.3 g/dL (Normal) Range: 2.0-4.5 M-SPIKE (Normal) Comments: Not Observed GAMMA GLOBULIN 0.7 g/dL (Normal) Range: 0.5-1.6 BETA GLOBULIN 0.8 g/dL (Normal) Range: 0.6-1.3 ALPHA-2 GLOBUL 0.6 g/dL (Normal) Range: 0.4-1.2 ALPHA-1 GLOBUL 0.2 g/dL (Normal) Range: 0.1-0.4 ALBUMIN 3.9 g/dL (Normal) Range: 3.2-5.6 PROTEIN,TOTAL 6.2 g/dL (Normal) Range: 6.0-8.5 17-Wxr-026630:22 Rapid Flu (32456 x 2) Influenza A Ag negative (Normal) 23-Tov-453714:56 Vitamin D,25 Hydroxy Comments: [facility] [address] [place], [place], [id number] Vitamin D 25-OH 87.5 ng/mL (Normal) Comments: Vitamin D 25(OH) Status Range Deficiency <20 ng/mL (50nmol/L) Insuffciency 20 - 30 ng/mL (50 - 75 nmol/L) Sufficiency 30 - 100 ng/mL (75 - 250 nmol/L) Toxicity >100 ng/mL (>250 nmol/L) :31 CBC W/Diff, Automated Comments: [facility] [address] [place], [address] Absolute Lymph 1.68 {X10_3/ul} (Normal) Range: 0.83-4.51 Absolute Neut 1.6 {X10_3/uL} (Abnormal) Range: 2.0-7.7 IM GRAN % 0.300 % (Normal) Range: 0.0-0.9 Comments: IG% - Immature Granulocytes (promyelocytes, myelocytes andmetamyelocytes) > 1% indicates that a LEFT SHIFT is Present. BASO% 3.6 % (Abnormal) Range: 0-1 EO% 6.1 % (Abnormal) Range: 0-5 MONO% 7.9 % (Normal) Range: 0-10 LY% 42.7 % (Abnormal) Range: 19-41 NEUT% 39.4 % (Abnormal) Range: 47-70 MPV 9.4 fL (Normal) Range: 6.2-12.0 PLT 193 K/mm3 (Normal) Range: 150-450 RDW SD 44.2 fL (Abnormal) Range: 35.1-43.9 RDW CV 12.8 % (Normal) Range: 11.6-14.6 MCHC 32.0 {g/gl} (Normal) Range: 32-36 MCH 30.3 pg (Normal) Range: 27.0-32.0 MCV 94.6 fL (Normal) Range: 81-99 HCT 40.0 % (Normal) Range: 37-47 HGB 12.8 g/dL (Normal) Range: 12.0-15.0 RBC 4.23 {M/mm3} (Normal) Range: 4.2-5.4 WBC 3.9 K/mm3 (Abnormal) Range: 4.4-11.0 97-Vwh-74613:31 Comprehensive Metabolic Profil Comments: [facility] [address] [place], [place], [address] GAP 3 (Abnormal) Range: 5-15 CO2 32.0 mmol/L (Normal) Range: 21.0-32.0 CL 104 mmol/L (Normal) Range: 98-107 K 4.8 mmol/L (Normal) Range: 3.5-5.1 NA 139 mmol/L (Normal) Range: 136-145 T BILI 0.60 mg/dL (Normal) Range: 0.20-1.00 ALT 17 U/L (Normal) Range: 12-78 ALK P 70 U/L (Normal) Range: 50-136 AST 23 U/L (Normal) Range: 15-37 CA 9.0 mg/dL (Normal) Range: 8.5-10.1 A/G 1.3 {RATIO} (Normal) Range: 0.9-2.4 GLOB 2.9 g/dL (Normal) Range: 2.3-3.5 ALB 3.8 g/dL (Normal) Range: 3.4-5.0 T PROT 6.7 g/dL (Normal) Range: 6.4-8.2 BUN/CRE 17.8 {RATIO} (Normal) Range: 10-20 EST GFR - AA 66 mL/min (Normal) Comments: GFR Calc EST GFR 55 mL/min (Abnormal) Comments: Non- GFR Calc CREAT,SERUM 1.07 mg/dL (Normal) Range: 0.55-1.20 Comments: The validity of the calculated GFR AND GFRAA in patients over70 years has not been determined. Clinical correlation isessential. BUN 19 mg/dL (Abnormal) Range: 7-18 GLU 101 mg/dL (Normal) Range: 70-110 :31 Protein+Creatinine Ratio,Urine Comments: [facility] [address] [facility] [place], [place], [id number] PROT:CRE RATIO 180 {mg/g_CRE} (Normal) Range: 0-200 PROTEIN,UR.RAN. 39.2 mg/dL (Abnormal) UR CREAT 218.00 mg/dL (Normal) :31 Urinalysis, Complete Comments: How was Urine Obtained? [facility] [address]mmcitbzka0698 [facility] [place], [place], [id number] AMORPHOUS 1+ (Normal) MUCUS, URINE 0 SEEN {/hpf} (Normal) BACTERIA 0 SEEN {/hpf} (Normal) SQUAM EPI 0-5 SEEN {/hpf} (Normal) Range: 5-10 RBC-UA 0 SEEN {/hpf} (Normal) Range: 0-5 WBC 0-5 SEEN {/hpf} (Normal) Range: 0-5 LEUK ESTERASE 25 /ul (Abnormal) OCCULT BLOOD-UR Negative /ul (Normal) NITRITE UR Negative (Normal) UROBILI 1 mg/dL (Abnormal) PROT DIPSTX 15 mg/dL (Abnormal) pH UR 6.0 (Normal) Range: 5.0 - 8.0 SP.GR. DIPSTX 1.020 (Normal) Range: 1.002-1.030 KETONE UR Negative mg/dL (Normal) BILIRUBIN URINE Negative mg/dL (Normal) GLUCOSE, UR Normal mg/dL (Normal) CLARITY Sl. Cloudy (Normal) COLOR Yellow (Normal) 20-Jhd-868831:20 Basic Metabolic Profile (BMP) Comments: [facility] [address] [place], [place], [id number] GAP 6 (Normal) Range: 5-15 CO2 30.0 mmol/L (Normal) Range: 21.0-32.0 CL 105 mmol/L (Normal) Range: 98-107 K 4.4 mmol/L (Normal) Range: 3.5-5.1 NA 141 mmol/L (Normal) Range: 136-145 CA 8.5 mg/dL (Normal) Range: 8.5-10.1 BUN/CRE 24.2 {RATIO} (Abnormal) Range: 10-20 Estimated CRCL 46.07 ml/min (Normal) EST GFR - AA 76 mL/min (Normal) EST GFR 63 mL/min (Normal) CREAT,SERUM 0.95 mg/dL (Normal) Range: 0.55-1.20 Comments: The validity of the calculated GFR AND GFRAA in patients over70 years has not been determined. Clinical correlation isessential. BUN 23 mg/dL (Abnormal) Range: 7-18 GLU 89 mg/dL (Normal) Range: 70-110 00-Bqm-858281:20 CBC-Complete Blood Cnt No Diff Comments: [facility] [address] [place], [place], [id number] MPV 9.2 fL (Normal) Range: 6.2-12.0 PLT 190 K/mm3 (Normal) Range: 150-450 RDW SD 44.5 fL (Abnormal) Range: 35.1-43.9 RDW CV 13.0 % (Normal) Range: 11.6-14.6 MCHC 32.0 {g/gl} (Normal) Range: 32-36 MCH 29.9 pg (Normal) Range: 27.0-32.0 MCV 93.2 fL (Normal) Range: 81-99 HCT 35.9 % (Abnormal) Range: 37-47 HGB 11.5 g/dL (Abnormal) Range: 12.0-15.0 RBC 3.85 {M/mm3} (Abnormal) Range: 4.2-5.4 WBC 4.7 K/mm3 (Normal) Range: 4.4-11.0 05-Gsd-812468:01 Basic Metabolic Profile (BMP) Comments: Test performed at:[facility] [address] [place] [address] GAP 4 (Abnormal) Range: 5-15 CO2 30.0 mmol/L (Normal) Range: 21.0-32.0 CL 104 mmol/L (Normal) Range: 98-107 K 4.2 mmol/L (Normal) Range: 3.5-5.1 NA 138 mmol/L (Normal) Range: 136-145 CA 8.9 mg/dL (Normal) Range: 8.5-10.1 BUN/CRE 15.5 {RATIO} (Normal) Range: 10-20 EST GFR - AA 64 mL/min (Normal) EST GFR 53 mL/min (Abnormal) CREAT,SERUM 1.10 mg/dL (Normal) Range: 0.55-1.20 Comments: The validity of the calculated GFR AND GFRAA in patients over70 years has not been determined. Clinical correlation isessential. BUN 17 mg/dL (Normal) Range: 7-18 GLU 97 mg/dL (Normal) Range: 70-110 57-Rsx-457371:01 Vitamin D,25 Hydroxy Comments: Test performed at:[facility] [address] [place] [address] Vitamin D 25-OH 22.7 ng/mL (Normal) Comments: Vitamin D 25(OH) Status Range Deficiency <20 ng/mL (50nmol/L) Insuffciency 20 - 30 ng/mL (50 - 75 nmol/L) Sufficiency 30 - 100 ng/mL (75 - 250 nmol/L) Toxicity >100 ng/mL (>250 nmol/L) :12 CBC W/Diff, Automated Comments: Test performed at:[facility] [address]elfwcct[address] [place] [address] Absolute Lymph 1.39 {X10_3/ul} (Normal) Range: 0.83-4.51 Absolute Neut 3.2 {X10_3/uL} (Normal) Range: 2.0-7.7 IM GRAN % 0.000 % (Normal) Range: 0.0-0.9 Comments: IG% - Immature Granulocytes (promyelocytes, myelocytes andmetamyelocytes) > 1% indicates that a LEFT SHIFT is Present. BASO% 2.1 % (Abnormal) Range: 0-1 EO% 2.6 % (Normal) Range: 0-5 MONO% 9.2 % (Normal) Range: 0-10 LY% 26.0 % (Normal) Range: 19-41 NEUT% 60.1 % (Normal) Range: 47-70 MPV 10.1 fL (Normal) Range: 6.2-12.0 PLT 200 K/mm3 (Normal) Range: 150-450 RDW SD 41.5 fL (Normal) Range: 35.1-43.9 RDW CV 12.2 % (Normal) Range: 11.6-14.6 MCHC 32.7 {g/gl} (Normal) Range: 32-36 MCH 30.9 pg (Normal) Range: 27.0-32.0 MCV 94.4 fL (Normal) Range: 81-99 HCT 37.3 % (Normal) Range: 37-47 HGB 12.2 g/dL (Normal) Range: 12.0-15.0 RBC 3.95 {M/mm3} (Abnormal) Range: 4.2-5.4 WBC 5.3 K/mm3 (Normal) Range: 4.4-11.0 16-Kjc-86371:12 Comprehensive Metabolic Profil Comments: Test performed at:[facility] [address] [place], [place] [address] GAP 9 (Normal) Range: 5-15 CO2 29.0 mmol/L (Normal) Range: 21.0-32.0 CL 104 mmol/L (Normal) Range: 98-107 K 4.3 mmol/L (Normal) Range: 3.5-5.1 NA 142 mmol/L (Normal) Range: 136-145 T BILI 0.60 mg/dL (Normal) Range: 0.20-1.00 ALT 13 U/L (Normal) Range: 12-78 ALK P 66 U/L (Normal) Range: 50-136 AST 20 U/L (Normal) Range: 15-37 CA 8.8 mg/dL (Normal) Range: 8.5-10.1 A/G 1.3 {RATIO} (Normal) Range: 0.9-2.4 GLOB 2.6 g/dL (Abnormal) Range: 2.7-4.2 ALB 3.5 g/dL (Normal) Range: 3.4-5.0 T PROT 6.1 g/dL (Abnormal) Range: 6.4-8.2 BUN/CRE 27.5 {RATIO} (Abnormal) Range: 10-20 EST GFR - AA 93 mL/min (Normal) EST GFR 77 mL/min (Normal) CREAT,SERUM 0.8 mg/dL (Normal) Range: 0.6-1.0 BUN 22 mg/dL (Abnormal) Range: 7-18 GLU 91 mg/dL (Normal) Range: 70-110 :52 CBC W/Diff, Automated Comments: Test performed at:[facility] [address] [place] [address] Absolute Lymph 1.62 {X10_3/ul} (Normal) Range: 0.83-4.51 Absolute Neut 1.0 {X10_3/uL} (Abnormal) Range: 2.0-7.7 IM GRAN % 0.000 % (Normal) Range: 0.0-0.9 Comments: IG% - Immature Granulocytes (promyelocytes, myelocytes andmetamyelocytes) > 1% indicates that a LEFT SHIFT is Present. BASO% 3.5 % (Abnormal) Range: 0-1 EO% 4.8 % (Normal) Range: 0-5 MONO% 8.3 % (Normal) Range: 0-10 LY% 51.9 % (Abnormal) Range: 19-41 NEUT% 31.5 % (Abnormal) Range: 47-70 MPV 10.0 fL (Normal) Range: 6.2-12.0 PLT 190 K/mm3 (Normal) Range: 150-450 RDW SD 43.4 fL (Normal) Range: 35.1-43.9 RDW CV 12.7 % (Normal) Range: 11.6-14.6 MCHC 32.2 {g/gl} (Normal) Range: 32-36 MCH 30.4 pg (Normal) Range: 27.0-32.0 MCV 94.4 fL (Normal) Range: 81-99 HCT 37.0 % (Normal) Range: 37-47 HGB 11.9 g/dL (Abnormal) Range: 12.0-15.0 RBC 3.92 {M/mm3} (Abnormal) Range: 4.2-5.4 WBC 3.1 K/mm3 (Abnormal) Range: 4.4-11.0 :52 Comprehensive Metabolic Profil Comments: Test performed at:[facility] [address] [place], [place] [id number] GAP 6 (Normal) Range: 5-15 CO2 31.0 mmol/L (Normal) Range: 21.0-32.0 CL 104 mmol/L (Normal) Range: 98-107 K 4.2 mmol/L (Normal) Range: 3.5-5.1 NA 141 mmol/L (Normal) Range: 136-145 T BILI 0.60 mg/dL (Normal) Range: 0.20-1.00 ALT 16 U/L (Normal) Range: 12-78 ALK P 65 U/L (Normal) Range: 50-136 AST 21 U/L (Normal) Range: 15-37 CA 8.7 mg/dL (Normal) Range: 8.5-10.1 A/G 1.8 {RATIO} (Normal) Range: 0.9-2.4 GLOB 2.1 g/dL (Abnormal) Range: 2.7-4.2 ALB 3.7 g/dL (Normal) Range: 3.4-5.0 T PROT 5.8 g/dL (Abnormal) Range: 6.4-8.2 BUN/CRE 20.0 {RATIO} (Normal) Range: 10-20 EST GFR - AA 81 mL/min (Normal) EST GFR 67 mL/min (Normal) CREAT,SERUM 0.9 mg/dL (Normal) Range: 0.6-1.0 BUN 18 mg/dL (Normal) Range: 7-18 GLU 77 mg/dL (Normal) Range: 70-110 1-Fdw-527227:40 FENTANYL Blood Level Comments: Test performed at:[facility] [address] [place], [place] [address] FENTANYL BLD (Normal) Comments: Sent directly to testing facility per ordering physician.02/16/15 1622 KAMLESH :53 CBC W/Diff, Automated Comments: Test performed at:[facility] [address] [place] [address] Absolute Lymph 1.44 {X10_3/ul} (Normal) Range: 0.83-4.51 Absolute Neut 1.4 {X10_3/uL} (Abnormal) Range: 2.0-7.7 IM GRAN % 0.000 % (Normal) Range: 0.0-0.9 Comments: IG% - Immature Granulocytes (promyelocytes, myelocytes andmetamyelocytes) > 1% indicates that a LEFT SHIFT is Present. BASO% 2.3 % (Abnormal) Range: 0-1 EO% 3.8 % (Normal) Range: 0-5 MONO% 10.2 % (Abnormal) Range: 0-10 LY% 41.9 % (Abnormal) Range: 19-41 NEUT% 41.8 % (Abnormal) Range: 47-70 MPV 9.7 fL (Normal) Range: 6.2-12.0 PLT 182 K/mm3 (Normal) Range: 150-450 RDW SD 41.6 fL (Normal) Range: 35.1-43.9 RDW CV 12.3 % (Normal) Range: 11.6-14.6 MCHC 32.2 {g/gl} (Normal) Range: 32-36 MCH 30.1 pg (Normal) Range: 27.0-32.0 MCV 93.4 fL (Normal) Range: 81-99 HCT 38.5 % (Normal) Range: 37-47 HGB 12.4 g/dL (Normal) Range: 12.0-15.0 RBC 4.12 {M/mm3} (Abnormal) Range: 4.2-5.4 WBC 3.4 K/mm3 (Abnormal) Range: 4.4-11.0 :53 Comprehensive Metabolic Profil Comments: Test performed at:[facility] [address] [place] [address] GAP 5 (Normal) Range: 5-15 CO2 31.0 mmol/L (Normal) Range: 21.0-32.0 CL 104 mmol/L (Normal) Range: 98-107 K 4.6 mmol/L (Normal) Range: 3.5-5.1 NA 140 mmol/L (Normal) Range: 136-145 T BILI 0.40 mg/dL (Normal) Range: 0.00-4.00 ALT 23 U/L (Normal) Range: 12-78 ALK P 63 U/L (Normal) Range: 50-136 AST 24 U/L (Normal) Range: 15-37 CA 8.7 mg/dL (Normal) Range: 8.5-10.1 A/G 1.4 {RATIO} (Normal) Range: 0.9-2.4 GLOB 2.7 g/dL (Normal) Range: 2.7-4.2 ALB 3.7 g/dL (Normal) Range: 3.4-5.0 T PROT 6.4 g/dL (Normal) Range: 6.4-8.2 BUN/CRE 22.5 {RATIO} (Abnormal) Range: 10-20 EST GFR - AA 93 mL/min (Normal) EST GFR 77 mL/min (Normal) CREAT,SERUM 0.8 mg/dL (Normal) Range: 0.6-1.0 BUN 18 mg/dL (Normal) Range: 7-18 GLU 90 mg/dL (Normal) Range: 70-110 [id number] Lipid Profile Comments: Test performed at:[facility] [id number] [place] [address] VLDL 13 mg/dL (Normal) Range: 5-40 LDL 82 mg/dL (Normal) Range: 0-130 HDL 56 mg/dL (Normal) Comments: Reference Range HDL <40 mg/dL Low HDL Cholesterol HDL >or= 60 mg/dL High HDL Cholesterol TRIG 66 mg/dL (Normal) Range: 0-199 Comments: Serum Triglycerides Reference Interval Normal <150 mg/dL Borderline high 150 - 199 mg/dL High 200 - 499 mg/dL Very High > or = 500 mg/dL CHOL 151 mg/dL (Normal) Comments: <200 mg/dL Desirable 200-240 mg/dL Borderline >240 mg/dL High Risk [id number] Vitamin D,25 Hydroxy Comments: Test performed at:[facility] [id number] [place] [address] Vitamin D 25-OH 27.3 ng/mL (Normal) Comments: Vitamin D 25(OH) Status Range Deficiency <20 ng/mL (50nmol/L) Insuffciency 20 - 30 ng/mL (50 - 75 nmol/L) Sufficiency 30 - 100 ng/mL (75 - 250 nmol/L) Toxicity >100 ng/mL (>250 nmol/L) [id number] Culture, Urine Comments: Test performed at:[facility] [id number] [place] [address] ; ordered by endy JACKSON See Note (Normal) Comments: Urine CultureCulture exhibits no growth. [id number] Urinalysis, Routine (Dipstick) Comments: How was Urine Obtained? CLEAN CATCHTest performed at:[facility] [id number] [place] [address] LEUK ESTERASE Negative /ul (Normal) OCCULT BLOOD-UR Negative /ul (Normal) NITRITE UR Negative (Normal) UROBILI Normal mg/dL (Normal) PROT DIPSTX Negative mg/dL (Normal) pH UR 5.0 (Normal) Range: 5.0 - 8.0 SP.GR. DIPSTX 1.030 (Normal) Range: 1.002-1.030 KETONE UR Negative mg/dL (Normal) BILIRUBIN URINE Negative mg/dL (Normal) GLUCOSE, UR Normal mg/dL (Normal) CLARITY Clear (Normal) COLOR Yellow (Normal) [id number] FENTANYL Blood Level Comments: Test performed at:[facility] [id number] [place] [address] FENTANYL BLD (Normal) Comments: Scanned image report available in EMR [id number] CBC W/Diff, Automated Comments: Test performed at:[facility] [id number] [place] [address] Absolute Lymph 2.34 {X10_3/ul} (Normal) Range: 0.83-4.51 Absolute Neut 1.6 {X10_3/uL} (Abnormal) Range: 2.0-7.7 IM GRAN % 0.200 % (Normal) Range: 0.0-0.9 Comments: IG% - Immature Granulocytes (promyelocytes, myelocytes andmetamyelocytes) > 1% indicates that a LEFT SHIFT is Present. BASO% 2.4 % (Abnormal) Range: 0-1 EO% 3.5 % (Normal) Range: 0-5 MONO% 8.6 % (Normal) Range: 0-10 LY% 51.3 % (Abnormal) Range: 19-41 NEUT% 34.0 % (Abnormal) Range: 47-70 MPV 10.0 fL (Normal) Range: 6.2-12.0 PLT 220 K/mm3 (Normal) Range: 150-450 RDW SD 41.4 fL (Normal) Range: 35.1-43.9 RDW CV 12.1 % (Normal) Range: 11.6-14.6 MCHC 32.4 {g/gl} (Normal) Range: 32-36 MCH 30.7 pg (Normal) Range: 27.0-32.0 MCV 94.8 fL (Normal) Range: 81-99 HCT 39.8 % (Normal) Range: 37-47 HGB 12.9 g/dL (Normal) Range: 12.0-15.0 RBC 4.20 {M/mm3} (Normal) Range: 4.2-5.4 WBC 4.6 K/mm3 (Normal) Range: 4.4-11.0 48-Abg-54593:48 Comprehensive Metabolic Profil Comments: Test performed at:[facility] [address] [place], [place] [id number] GAP 4 (Abnormal) Range: 5-15 CO2 31.0 mmol/L (Normal) Range: 21.0-32.0 CL 104 mmol/L (Normal) Range: 98-107 K 4.2 mmol/L (Normal) Range: 3.5-5.1 NA 139 mmol/L (Normal) Range: 136-145 T BILI 0.40 mg/dL (Normal) Range: 0.00-4.00 ALT 25 U/L (Normal) Range: 12-78 ALK P 67 U/L (Normal) Range: 50-136 AST 24 U/L (Normal) Range: 15-37 CA 8.7 mg/dL (Normal) Range: 8.5-10.1 A/G 1.2 {RATIO} (Normal) Range: 0.9-2.4 GLOB 2.9 g/dL (Normal) Range: 2.7-4.2 ALB 3.6 g/dL (Normal) Range: 3.4-5.0 T PROT 6.5 g/dL (Normal) Range: 6.4-8.2 BUN/CRE 19.0 {RATIO} (Normal) Range: 10-20 EST GFR - AA 72 mL/min (Normal) EST GFR 59 mL/min (Abnormal) CREAT,SERUM 1.0 mg/dL (Normal) Range: 0.6-1.0 BUN 19 mg/dL (Abnormal) Range: 7-18 GLU 88 mg/dL (Normal) Range: 70-110 :39 CMV Acute Antibody IgM Comments: Test performed at:[facility] [address] [place] [address] CMVIgM AB < 30.0 AU/mL (Normal) Range: 0.0-29.9 Comments: Negative <30.0 Equivocal 30.0 - 34.9 Positive >34.9A positive result is generally indicative of acuteinfection, react ivation or persistent IgM production.Performed at: - [address] [id number] Director: Yury Cornelius PhD, Phone: [phone] :39 CMV Antibody IgG Comments: Test performed at:[facility] [address] [facility] [address] CMV AB IgG < 0.60 U/mL (Normal) Range: 0.00-0.59 Comments: Negative <0.60 Equivocal 0.60 - 0.69 Positive >0.69 :39 Comprehensive Metabolic Profil Comments: Test performed at:[facility] [address] [place] [address] GAP 4 (Abnormal) Range: 5-15 CO2 28.0 mmol/L (Normal) Range: 21.0-32.0 CL 105 mmol/L (Normal) Range: 98-107 K 4.0 mmol/L (Normal) Range: 3.5-5.1 NA 137 mmol/L (Normal) Range: 136-145 T BILI 0.50 mg/dL (Normal) Range: 0.00-4.00 ALT 25 U/L (Normal) Range: 12-78 ALK P 73 U/L (Normal) Range: 50-136 AST 21 U/L (Normal) Range: 15-37 CA 8.8 mg/dL (Normal) Range: 8.5-10.1 A/G 1.3 {RATIO} (Normal) Range: 0.9-2.4 GLOB 2.9 g/dL (Normal) Range: 2.7-4.2 ALB 3.7 g/dL (Normal) Range: 3.4-5.0 T PROT 6.6 g/dL (Normal) Range: 6.4-8.2 BUN/CRE 21.0 {RATIO} (Abnormal) Range: 10-20 EST GFR - AA 72 mL/min (Normal) EST GFR 59 mL/min (Abnormal) CREAT,SERUM 1.0 mg/dL (Normal) Range: 0.6-1.0 BUN 21 mg/dL (Abnormal) Range: 7-18 GLU 88 mg/dL (Normal) Range: 70-110 60-Izc-70509:39 EBV Acute Prof IgG / IgM Comments: Test performed at:[facility] [address] [place], [place] [address] INTERPRETATION Comment (Normal) Comments: EBV Interpretation ChartInterpretation EBV-IgM VCA-IgG EBNA-IgG EA(D)-IgGEBV Seronegative - - - -Early Phase + - - -Acute Primary + + - +or-InfectionConvalescence/Past - + + +or-InfectionReactivated +or- + + +Infection + Antibody Present - Antibody Absent EB-NAg [id number] 36.1 U/mL (Abnormal) Range: 0.0-17.9 Comments: Negative <18.0 Equivocal 18.0 - 21.9 Positive >21.9 EB-VCA [id number] 289.0 U/mL (Abnormal) Range: 0.0-17.9 Comments: Negative <18.0 Equivocal 18.0 - 21.9 Positive >21.9 EB-EA IgG [id number] <9.0 U/mL (Normal) Range: 0.0-8.9 Comments: Negative < 9.0 Equivocal 9.0 - 10.9 Positive >10.9 EB-VCA [id number] < 36.0 U/mL (Normal) Range: 0.0-35.9 Comments: Negative <36.0 Equivocal 36.0 - 43.9 Positive >43.9 :39 Lipid Profile Comments: Test performed at:[facility] [address] [place] [id number] VLDL 11 mg/dL (Normal) Range: 5-40 LDL 82 mg/dL (Normal) Range: 0-130 HDL 57 mg/dL (Normal) Comments: Reference Range HDL <40 mg/dL Low HDL Cholesterol HDL >or= 60 mg/dL High HDL Cholesterol TRIG 54 mg/dL (Normal) Range: 0-199 Comments: Serum Triglycerides Reference Interval Normal <150 mg/dL Borderline high 150 - 199 mg/dL High 200 - 499 mg/dL Very High > or = 500 mg/dL CHOL 150 mg/dL (Normal) Comments: <200 mg/dL Desirable 200-240 mg/dL Borderline >240 mg/dL High Risk :39 Vitamin D,25 Hydroxy Comments: Test performed at:[facility] [address] [place] [address] [id number] Vitamin D 25-OH 36.8 ng/mL (Normal) Comments: Vitamin D 25(OH) Status Range Deficiency <20 ng/mL (50nmol/L) Insuffciency 20 - 30 ng/mL (50 - 75 nmol/L) Sufficiency 30 - 100 ng/mL (75 - 250 nmol/L) Toxicity >100 ng/mL (>250 nmol/L) 86-Vwp-291016:32 URINE MICHI CULTURE-ZACHARY COL Comments: PATIENT NOT FASTINGPERFORMED BY: [facility] [address]z6320 [facility] [id number] Information: SRC:UR [id number] COUNT ([id number]) Result 1 ENTECC (Abnormal) Comments: Enterobacter cloacae complexGreater than 100,000 colony forming units per mL S = Susceptible; I = Intermediate; R = Resistant P = Positive; N = Negative MICS a re expressed in micrograms per mL Antibiotic RSLT#1 RSLT#2 RSLT#3 RSLT#4Amoxicillin/Clavulanic Acid RCefazolin RCefepime SCeftria xone SCefuroxime RCephalothin RCiprofloxacin SErtapenem SGentamicin SImipenem SLevofloxacin SNitrofurantoin IPiperacillin STetracycline STobramycin STrimethoprim/Sulfa S Urine Final report Culture,Comprehensi (Abnormal) ve :50 Urinalysis, Office ([id number]) UA - LEUKOCYTE ESTERASE Small (Normal) UA - NITRITE Negative (Normal) URINE UROBILINGN ZACHARY 2 mg/dL (Normal) TIMED UA - PROTEIN Negative mg/dL (Normal) UA - PH 6.5 (Normal) UA - BLOOD non-hemolyzed trace (Normal) UA - SPECIFIC GRAVITY 1.010 (Normal) UA - KETONES Negative mg/dL (Normal) UA - BILIRUBIN Negative (Normal) UA - GLUCOSE Negative (Normal) BIBIANA Positive (Abnormal) Comments: Performed at: [facility] [address] [id number] Director: Yury Cornelius PhD, Phone: [phone] : ANEX FRANCOIS-[facility] <0.2 {AI} (Normal) Range: 0.0-0.9 PLATFORM CONSULTANT-[facility] >8.0 {AI} (Abnormal) Range: 0.0-0.9 ANTIJO-[facility] <0.2 {AI} (Normal) Range: 0.0-0.9 ANTISCL-[facility] <0.2 {AI} (Normal) Range: 0.0-0.9 C3 108 (Normal) Range: 90-180 Comments: Result Units: mg/dL AdultPerformed at: [facility] [address] [id number] Director: Yury Cornelius PhD, Phone: [phone] :00 C4 15 (Normal) Range: 9-36 Comments: Result Units: mg/dL Adult :00 CBCD ALC 1.40 {X10_3/ul} (Normal) Range: 0.83-4.51 ANC 1.6 {X10_3/uL} (Abnormal) Range: 2.0-7.7 IG% 0.000 % (Normal) Range: 0.0-0.9 Comments: IG% - Immature Granulocytes (promyelocytes, myelocytes andmetamyelocytes) > 1% indicates that a LEFT SHIFT is Present. B% 3.9 % (Abnormal) Range: 0-1 E% 3.9 % (Normal) Range: 0-5 M% 7.5 % (Normal) Range: 0-10 L% 39.0 % (Normal) Range: 19-41 N% 45.7 % (Abnormal) Range: 47-70 MPV 10.3 fL (Normal) Range: 6.2-12.0 PLT 183 K/mm3 (Normal) Range: 150-450 RDWSD 42.9 fL (Normal) Range: 35.1-43.9 RDWCV 12.4 % (Normal) Range: 11.6-14.6 MCHC 31.9 {g/gl} (Abnormal) Range: 32-36 MCH 30.3 pg (Normal) Range: 27.0-32.0 MCV 95.0 fL (Normal) Range: 81-99 HCT 41.4 % (Normal) Range: 37-47 HGB 13.2 g/dL (Normal) Range: 12.0-15.0 RBC 4.36 {M/mm3} (Normal) Range: 4.2-5.4 WBC 3.6 K/mm3 (Abnormal) Range: 4.4-11.0 :00 CENTB <0.2 {AI} (Normal) Range: 0.0-0.9 :00 CMP GAP 4 (Abnormal) Range: 5-15 CO2 29.0 mmol/L (Normal) Range: 21.0-32.0 CL 105 mmol/L (Normal) Range: 98-107 K 4.4 mmol/L (Normal) Range: 3.5-5.1 NA 138 mmol/L (Normal) Range: 136-145 BIT 0.40 mg/dL (Normal) Range: 0.00-4.00 ALT 24 U/L (Normal) Range: 12-78 ALK 91 U/L (Normal) Range: 50-136 AST 30 U/L (Normal) Range: 15-37 CA 8.8 mg/dL (Normal) Range: 8.5-10.1 AG 1.2 {RATIO} (Normal) Range: 0.9-2.4 GLOB 3.2 g/dL (Normal) Range: 2.7-4.2 ALB 3.8 g/dL (Normal) Range: 3.4-5.0 TPROT 7.0 g/dL (Normal) Range: 6.4-8.2 BC 23.8 {RATIO} (Abnormal) Range: 10-20 GFRAA 93 mL/min (Normal) GFR 77 mL/min (Normal) CREAT 0.8 mg/dL (Normal) Range: 0.6-1.0 BUN 19 mg/dL (Abnormal) Range: 7-18 GLU 95 mg/dL (Normal) Range: 70-110 DNAAB-[facility] <1 {IU/mL} (Normal) Range: 0-9 Comments: Negative <5Equivocal 5 - 9Positive >9 PROCRER tPROCRER 97 {mg/g_CRE} (Normal) Range: 0-200 PROUR 9.1 mg/dL (Normal) CREU 93.3 mg/dL (Normal) SJ [facility] tSJ2 < 0.2 {AI} (Normal) Range: 0.0-0.9 tSJ1 < 0.2 {AI} (Normal) Range: 0.0-0.9 : UAC Comments: How was Urine Obtained? CLEAN CATCH UMUC 0 SEEN {/hpf} (Normal) UBAC 0 SEEN {/hpf} (Normal) UEPIS 0-5 SEEN {/hpf} (Normal) Range: 5-10 URBC 0 SEEN {/hpf} (Normal) Range: 0-5 UWBC 0 SEEN {/hpf} (Normal) Range: 0-5 CHESTER Negative /ul (Normal) UOB Negative /ul (Normal) KALEB Negative (Normal) UROBU Normal mg/dL (Normal) uPROTU Negative mg/dL (Normal) AMARILIS 7.0 (Normal) Range: 5.0 - 8.0 SGU 1.010 (Normal) Range: 1.002-1.030 KETU Negative mg/dL (Normal) BILIU Negative mg/dL (Normal) GLUR Normal mg/dL (Normal) UCLAR Sl. Cloudy (Normal) UCOL Yellow (Normal) 5-Jrp-667396:53 CUUR URC See Note (Normal) Comments: ORGANISM 1: Mixed Gram Positive OrganismsColony Count 1000-10,000MIX CONTAM Mixed Contaminants. Submit new specimen if indicated. 46-Gxa-205034:07 BIBIANA Positive (Abnormal) Comments: Performed at: [address] Director: Yury Cornelius PhD, Phone: [phone] 69-Sim-635317:07 CBCD ALC 1.50 {X10_3/ul} (Normal) Range: 0.83-4.51 ANC 1.4 {X10_3/uL} (Abnormal) Range: 2.0-7.7 IG% 0.300 % (Normal) Range: 0.0-0.9 Comments: IG% - Immature Granulocytes (promyelocytes, myelocytes andmetamyelocytes) > 1% indicates that a LEFT SHIFT is Present. B% 2.9 % (Abnormal) Range: 0-1 E% 3.5 % (Normal) Range: 0-5 M% 7.8 % (Normal) Range: 0-10 L% 43.6 % (Abnormal) Range: 19-41 N% 41.9 % (Abnormal) Range: 47-70 MPV 10.3 fL (Normal) Range: 6.2-12.0 PLT 191 K/mm3 (Normal) Range: 150-450 RDWCV 13.0 % (Normal) Range: 11.6-14.6 RDWSD 45.7 fL (Abnormal) Range: 35.1-43.9 MCHC 32.1 {g/gl} (Normal) Range: 32-36 MCH 30.9 pg (Normal) Range: 27.0-32.0 MCV 96.3 fL (Normal) Range: 81-99 HCT 39.3 % (Normal) Range: 37-47 HGB 12.6 g/dL (Normal) Range: 12.0-15.0 RBC 4.08 {M/mm3} (Abnormal) Range: 4.2-5.4 WBC 3.4 K/mm3 (Abnormal) Range: 4.4-11.0 :07 CCP 8 {units} (Normal) Range: 0-19 Comments: Negative <20Weak positive 20 - 39Moderate positive 40 - 59Strong positive >59 :07 CMP CO2 31.0 mmol/L (Normal) Range: 21.0-32.0 GAP 5 (Normal) Range: 5-15 CL 102 mmol/L (Normal) Range: 98-107 K 4.4 mmol/L (Normal) Range: 3.5-5.1 NA 138 mmol/L (Normal) Range: 136-145 BIT 0.60 mg/dL (Normal) Range: 0.00-1.00 ALK 188 U/L (Abnormal) Range: 45-117 ALT 92 U/L (Abnormal) Range: 12-78 AST 82 U/L (Abnormal) Range: 15-37 CA 9.3 mg/dL (Normal) Range: 8.5-10.1 AG 1.0 {RATIO} (Normal) Range: 0.9-2.4 ALB 3.7 g/dL (Normal) Range: 3.4-5.0 GLOB 3.7 g/dL (Normal) Range: 2.7-4.2 TPROT 7.4 g/dL (Normal) Range: 6.4-8.2 BC 17.5 {RATIO} (Normal) Range: 10-20 GFRAA 93 mL/min (Normal) GFR 77 mL/min (Normal) BUN 14 mg/dL (Normal) Range: 7-18 CREAT 0.8 mg/dL (Normal) Range: 0.6-1.0 GLU 88 mg/dL (Normal) Range: 70-110 :07 CRP 11.10 mg/L (Abnormal) Range: 0.0-3.0 Comments: C-Reactive Protein (CRP) provides useful information for thediagnosis, therapy and monitoring of inflammatory processesand associated diseases. For the evaluation of Relative Riskfor Cardiovascular Dise ase, a High Sensitivity CRP (HSCRP)should be ordered. :07 HEBSAB Reactive (Normal) Comments: Non Reactive: Inconsistent with immunity,less than 10 mIU/mLReactive: Consistent with immunity,greater than 9.9 mIU/mL :07 HEBSAG ttHEBSAG Negative (Normal) Comments: Performed at: [address] [id number] Director: Yury Cornelius PhD, Phone: [phone] at: [address] [place] [address] [id number] Director: Rogelio Randle PhD, Phone: [phone] at: [address] [id number] Director: Murray Mabry MD, Phone: [phone] :07 HECAB tHECAB <0.1 {s/co_ratio} (Normal) Range: 0.0-0.9 Comments: Negative: < 0.8Indeterminate: 0.8 - 0.9Positive: > 0.9In order to reduce the incidence of a false positiveresult, the CDC recommends that all s/co ratiosbetween 1.0 and 10.9 be confirmed b y a more specificsupplemental or PCR testing. [facility] offers HCV Abw/Reflex to Verification test #[id number]. :07 HLAB27 tHLAB27 Negative (Normal) Comments: HLA-B*27 NegativeA [facility] CLIA ID Number [id number] test was performed using PCR (Polymerase ChainReaction)/SSOP (Sequence Specific Oligonucleotide Probes)technique. SBT (Sequence Based Typing) and/ or SSP(Sequence Specific Primers) may be used as supplementalmethods when necessary. Please contact [facility] CustomerService at if you have any questions.Director of HLA LaboratoryDr Rogelio Randle, PhD :07 RF < 10.0 {IU/mL} (Normal) : SED tSEDRATE 13 mm/h (Normal) Range: 0-30 62-Cmx-099042:37 BID 0.21 mg/dL (Normal) Comments: Comments: [id number]; CALCIFEDOIL;PLASMA;RF Range: 0.00-0.30 :37 CBCD ALC 1.03 {X10_3/ul} (Normal) Range: 0.83-4.51 ANC 2.1 {X10_3/uL} (Normal) Range: 2.0-7.7 IG% 0.000 % (Normal) Range: 0.0-0.9 Comments: IG% - Immature Granulocytes (promyelocytes, myelocytes andmetamyelocytes) > 1% indicates that a LEFT SHIFT is Present. B% 2.7 % (Abnormal) Range: 0-1 E% 4.0 % (Normal) Range: 0-5 M% 9.4 % (Normal) Range: 0-10 L% 27.8 % (Normal) Range: 19-41 N% 56.1 % (Normal) Range: 47-70 MPV 10.0 fL (Normal) Range: 6.2-12.0 PLT 162 K/mm3 (Normal) Range: 150-450 RDWSD 47.1 fL (Abnormal) Range: 35.1-43.9 MCHC 32.0 {g/gl} (Normal) Range: 32-36 RDWCV 13.5 % (Normal) Range: 11.6-14.6 MCH 30.5 pg (Normal) Range: 27.0-32.0 MCV 95.6 fL (Normal) Range: 81-99 HCT 41.0 % (Normal) Range: 37-47 HGB 13.1 g/dL (Normal) Range: 12.0-15.0 RBC 4.29 {M/mm3} (Normal) Range: 4.2-5.4 WBC 3.7 K/mm3 (Abnormal) Range: 4.4-11.0 :37 CMP Comments: Comments: [id number]; CALCIFEDOIL;PLASMA;RF GAP 7 (Normal) Range: 5-15 CO2 29.0 mmol/L (Normal) Range: 21.0-32.0 CL 106 mmol/L (Normal) Range: 98-107 K 4.2 mmol/L (Normal) Range: 3.5-5.1 NA 142 mmol/L (Normal) Range: 136-145 BIT 0.70 mg/dL (Normal) Range: 0.00-1.00 ALT 130 U/L (Abnormal) Range: 12-78 ALK 108 U/L (Normal) Range: 45-117 AST 168 U/L (Abnormal) Range: 15-37 CA 9.2 mg/dL (Normal) Range: 8.5-10.1 AG 1.0 {RATIO} (Normal) Range: 0.9-2.4 GLOB 3.5 g/dL (Normal) Range: 2.7-4.2 ALB 3.4 g/dL (Normal) Range: 3.4-5.0 TPROT 6.9 g/dL (Normal) Range: 6.4-8.2 BC 18.9 {RATIO} (Normal) Range: 10-20 GFRAA 81 mL/min (Normal) CREAT 0.9 mg/dL (Normal) Range: 0.6-1.0 GFR 67 mL/min (Normal) BUN 17 mg/dL (Normal) Range: 7-18 GLU 93 mg/dL (Normal) Range: 70-110 44-Unk-267939:37 LIPID Comments: Comments: [id number]; CALCIFEDOIL;PLASMA;RF VLDL 24 mg/dL (Normal) Range: 5-40 LDL 71 mg/dL (Normal) Range: 0-130 HDL 40 mg/dL (Normal) Comments: Reference RangeHDL <40 mg/dL Low HDL CholesterolHDL >or= 60 mg/dL High HDL Cholesterol CHOL 135 mg/dL (Normal) Comments: <200 mg/dL Ykutroxgm508-870 mg/dL Borderline>240 mg/dL High Risk TRIG 122 mg/dL (Normal) Range: 0-199 Comments: Serum Triglycerides Reference IntervalNormal <150 mg/dLBorderline high 150 - 199 mg/dLHigh 200 - 499 mg/ dLVery High > or = 500 mg/dL 06-Ydx-852967:37 TSH 1.70 {uIU/mL} (Normal) Comments: Comments: [id number]; CALCIFEDOIL;PLASMA;RF Range: 0.358-3.74 02-Tdz-103062:30 VITD 57.3 mg/mL (Normal) Comments: Vitamin D 25(OH) Status RangeDeficiency <20 ng/mL (50nmol/L)Insuffciency 20 - 30 ng/mL (50 - 75 nmol/L)Sufficiency 30 - 100 ng/mL (75 - 250 nmol/L)Toxicity >100 ng/mL (>250 nmol/L) 40-Mjq-70763:27 URINE MICHI CULTURE-ZACHARY COL Comments: PATIENT NOT FASTINGPERFORMED BY: [facility] Center[facility]hxovn[facility] [id number] Information: SRC:UR [id number] COUNT ([id number]) Antimicrobial MIHEAD (Normal) Comments: S = Susceptible; I = Intermediate; R = Resistant P = Positive; N = Negative MICS are expressed in micrograms per mL Antibiotic RSLT#1 RSLT#2 Susceptibility RSLT#3 RSLT#4Ciprofloxacin SLevofloxacin SNitrofurantoin SPenicillin STetracycline RVancomycin S Result 1 Enterococcus faecalis Comments: 500 Colonies/mLNote: this isolate is vancomycin-susceptible.This information is provided for epidemiologic purposesonly: vancomycin is not among the antibioticsrecommended for therapy of urinary tract (Abnormal) infectionscaused by Enterococcus.For Enterococcus species, cephalosporins, aminoglycosides (except forhigh-level resistance screening), clindamycin, and trimethoprim-sulfamethoxazole are not effective c linically. Fluoroquinolones areused primarily for treating urinary tract infections. (CLSI, [id number],2009) Urine Final report (Abnormal) Culture,Comprehensive 62-Dci-949514:11 Urinalysis, Office (16211) UA - LEUKOCYTE ESTERASE Trace (Normal) UA - NITRITE Negative (Normal) URINE UROBILINGN ZACHARY TIMED Normal mg/dL (Normal) UA - PROTEIN Negative mg/dL (Normal) UA - PH 6 (Abnormal) UA - BLOOD Hemolyzed Trace (Normal) UA - SPECIFIC GRAVITY 1.025 (Normal) UA - KETONES Small mg/dL (Normal) UA - BILIRUBIN Small (Normal) UA - GLUCOSE Negative (Normal) 55-Pbk-010818:28 MICHI CULTURE-OTHER (06219) Comments: PATIENT NOT FASTINGPERFORMED BY: [facility]Co[facility] CenterEmkrwq6855 [facility] [id number] Information: SRC:THRT [id number] Result 1 RRF (Normal) Comments: Routine respiratory christ Upper Respiratory Culture Final report (Normal) [id number]-[id number]: ARUNA 42 U/L (Normal) Range: 25-115 10 59-Ycy-066584:10 CBCD ANC 5.0 {X10_3/uL} (Normal) Range: 2.0-7.7 IG% 0.300 % (Normal) Range: 0.0-0.9 Comments: IG% - Immature Granulocytes (promyelocytes, myelocytes andmetamyelocytes) > 1% indicates that a LEFT SHIFT is Present. B% 1.2 % (Abnormal) Range: 0-1 E% 1.2 % (Normal) Range: 0-5 M% 8.4 % (Normal) Range: 0-10 L% 15.9 % (Abnormal) Range: 19-41 N% 73.0 % (Abnormal) Range: 47-70 MPV 9.5 fL (Normal) Range: 6.2-12.0 PLT 268 K/mm3 (Normal) Range: 150-450 RDWSD 41.1 fL (Normal) Range: 35.1-43.9 RDWCV 12.3 % (Normal) Range: 11.6-14.6 MCHC 33.0 {g/gl} (Normal) Range: 32-36 MCH 30.6 pg (Normal) Range: 27.0-32.0 MCV 92.8 fL (Normal) Range: 81-99 HCT 39.7 % (Normal) Range: 37-47 HGB 13.1 g/dL (Normal) Range: 12.0-15.0 RBC 4.28 {M/mm3} (Normal) Range: 4.2-5.4 WBC 6.8 K/mm3 (Normal) Range: 4.4-11.0 80-Igh-033486:10 CMP GAP 6 (Normal) Range: 5-15 CO2 28.0 mmol/L (Normal) Range: 21.0-32.0 CL 105 mmol/L (Normal) Range: 98-107 K 4.5 mmol/L (Normal) Range: 3.5-5.1 NA 139 mmol/L (Normal) Range: 136-145 BIT 0.50 mg/dL (Normal) Range: 0.00-1.00 ALT 60 U/L (Normal) Range: 12-78 ALK 97 U/L (Normal) Range: 50-136 AST 55 U/L (Abnormal) Range: 15-37 CA 9.2 mg/dL (Normal) Range: 8.5-10.1 AG 1.2 {RATIO} (Normal) Range: 0.9-2.4 GLOB 3.2 g/dL (Normal) Range: 2.7-4.2 ALB 3.8 g/dL (Normal) Range: 3.4-5.0 TPROT 7.0 g/dL (Normal) Range: 6.4-8.2 BC 18.9 {RATIO} (Normal) Range: 10-20 GFRAA 81 mL/min (Normal) GFR 67 mL/min (Normal) CREAT 0.9 mg/dL (Normal) Range: 0.6-1.0 BUN 17 mg/dL (Normal) Range: 7-18 GLU 104 mg/dL (Normal) Range: 70-110 :10 LIPASE 69 U/L (Abnormal) Range: 70-290 :17 Urinalysis, Office ([id number]) UA - LEUKOCYTE ESTERASE Small (Normal) UA - NITRITE Negative (Normal) URINE UROBILINGN ZACHARY Normal mg/dL (Normal) TIMED UA - PROTEIN Negative mg/dL (Normal) UA - PH 5 (Abnormal) UA - BLOOD Non Hemolyzed Moderate (Normal) UA - SPECIFIC GRAVITY 1.025 (Normal) UA - KETONES Negative mg/dL (Normal) UA - BILIRUBIN Negative (Normal) UA - GLUCOSE Negative (Normal) : ASMA 6 {Units} (Normal) Range: 0-19 19 Comments: Negative 0 - 19Weak positive 20 - 30Moderate to strong positive >30.Actin Antibodies are found in 52-85% of patients withautoimmune hepatitis or chronic active h epatitis andin 22% of patients with primary biliary cirrhosis. : CER 28.4 mg/dL (Normal) Range: 16.0-45.0 19 Comments: Performed at: [address] [id number] Director: Yury Cornelius PhD, Phone: [phone] : GOLD 194 ng/mL (Normal) Range: 8-252 19 :31 LIVER BID 0.17 mg/dL (Normal) Range: 0.00-0.30 BIT 0.50 mg/dL (Normal) Range: 0.00-1.00 ALT 134 U/L (Abnormal) Range: 12-78 ALK 111 U/L (Normal) Range: 50-136 AST 107 U/L (Abnormal) Range: 15-37 ALB 3.8 g/dL (Normal) Range: 3.4-5.0 TPROT 6.7 g/dL (Normal) Range: 6.4-8.2 97-Gik-704619:08 URINE MICHI CULTURE-ZACHARY COL Comments: PATIENT NOT FASTINGPERFORMED BY: [facility] Bkfmsq7450 [facility] RoadAt[facility] [id number] Information: SRC:UR [id number] COUNT ([id number]) Antimicrobial MIHEAD (Normal) Comments: S = Susceptible; I = Intermediate; R = Resistant P = Positive; N = Negative MICS are expressed in micrograms per mL Antibiotic RSLT#1 RSLT#2 Susceptibility RSLT#3 RSLT#4Amoxicillin/Clavulanic Acid SAmpicillin SCefazolin SCefepime SCeftriaxone SCefuroxime SCephalothin SCiprofloxacin IErtapenem SGentamicin SLevofloxacin SNitrofurantoin R Piperacillin STetracycline RTobramycin STrimethoprim/Sulfa S Result 1 Proteus mirabilis Comments: 1,000 Colonies/mL (Normal) Urine Final report Culture,Comprehensive (Normal) 35-Sbd-39695:55 Urinalysis, Office ([id number]) UA - BILIRUBIN Negative (Normal) UA - BLOOD Negative (Normal) UA - GLUCOSE Negative (Normal) UA - KETONES Negative mg/dL (Normal) UA - LEUKOCYTE ESTERASE Trace (Normal) UA - NITRITE Negative (Normal) UA - PH 5.0 (Normal) Comments: 5.5 UA - PROTEIN Negative mg/dL (Normal) UA - SPECIFIC GRAVITY 1.025 (Normal) Comments: > 1.030 URINE UROBILINGN ZACHARY TIMED Normal mg/dL (Normal) [id number] CHEST WITHOUT CONTRAST Radiology Report See Note (Normal) Comments: PROCEDURE: CT CHEST WITHOUT CONTRAST REASON FOR EXAM: Female, 62 years old. Follow up for lung nodule. RADIATION DOSAGE (If Supplied By Facility): CTDIvol = ( 14.05 ) mGy, DLP=( 383.10 ) mGycm DIDIER HNIQUE: High resolution transaxial imaging was performed without theadministration of intravenous contrast material. Multiplanar coronal andsagittal images were reformatted. COMPARISON: Comparison is made with prior study dated June 27, 2012. FINDINGS: Is a stable 6-mm nodule in the right lateral lung base. This isunchanged.Is also evidence of a mild degree of scarring in both lower lobes as wellas in the lingular segment of the left upper lobe. There is nodemonstrated pleural abnormality. Normal heart and pericardium. There are multiple small lymph nodes within the mediastinum, which aren ormal in size and morphology most compatible with reactive lymphhyperplasia. Normal hilar regions. Normal unenhanced pulmonaryarteries.There is atherosclerotic calcification of the aortic arch and herber cendingthoracic aorta. Once again, there is mild ectasia of the ascendingthoracic aorta with a transverse dimension of 4.3-cm. There are multi-level degenerative changes of the thoracic spine. There is a 4-mm calculus in the upper pole emma of the left kidney. IMPRESSION:There has been no change since prior study. Signed:Bayron Payan M.D.December 29, 2012 at 4:08:08 PM [id number] ly Signed GP/GP If you are the referring physician and would like to consult with theradiologist who provided this interpretation, please contact Nicolas Boyer at [phone]. If this radiolo gist is unavailable, youwill be directed to another radiologist to assist. If you are a patient with a question regarding this report, pleasecontactyour referring physician directly. Professional Interp retation Provided By: [email or web address], Phone , These documents contain legally protected and confidential healthinformation intended only for the use of the individual or entit y namedabove. If you are not the intended recipient, you are hereby notifiedthatany disclosure, copying, distribution, or other use of these documents isstrictly prohibited. If you have received this in formation in error,pleasenotify the sender immediately and arrange for the return or destructionofthese documents. Dictated on 12/29/12 1608 by Rocio Payan MDranscribed on 12/29/12 1610 by IT S IMPORTSign by Bayron Payan MD on 12/29/12 1611 Sign by: Bayron Payan MD [id number] LIVER Radiology Report See Note (Normal) Comments: PROCEDURE: ABDOMINAL ULTRASOUND - RIGHT UPPER QUADRANT REASON FOR VISIT: Female, 62 years old. Elevated liver functiontests. TECHNIQUE: Ultrasound evaluation of the right upper quadrant [facility] with real-time and static fairchild-scale imaging. TECHNICAL QUALITY: Adequate. COMPARISON: None. FINDINGS: Liver: The liver measures 13.5 cm. There is normal echogenicity of theliver. The bile d ucts are within normal limits. There is hepatic colorflow. The direction of portal flow is hepatopetal. There is nodemonstrated mass lesion. Gallbladder: The patient is status post cholecystectomy. Common Bile Duct (C.B.D.): The common bile duct measures 5.0 mm. Pancreas: Normal size of the head, body of the pancreas. The portionisobscured due to overlying bowel gas. There is normal echogen icity ofthepancreas. There is no demonstrated pancreatic mass or cyst. Right Kidney: Normal size of the right kidney. The right qndvrxnqfnrgem88.1 cm. Normal renal cortex. The right cortex measure s 0.9 cm. Thereisa 1.5 cm x 1.7 cm by 1.1-cm cyst along the medial portion of the kidney.There is no right hydronephrosis. IMPRESSION:Small right renal cyst. Signed:Bayron Payan M.D.December 16, 2012 at 10:11:37 AM [id number] Signed GP/GP If you are the referring physician and would like to consult with theradiologist who provided this interpretation, please contact Anish brewer M.D. at [phone]. If this radiologist is unavailable, youwill be directed to another radiologist to assist. If you are a patient with a question regarding this report, pleasecontactyour referr ing physician directly. Professional Interpretation Provided By: [email or web address], Phone , These documents contain legally protected and confidential healthinformation intended only for the use of the individual or entity namedabove. If you are not the intended recipient, you are hereby notifiedthatany disclosure, copying, distribution, or other use of these documents isstrict ly prohibited. If you have received this information in error,pleasenotify the sender immediately and arrange for the return or destructionofthese documents. Dictated on 12/16/12 1011 by Rocio Payan MDranscribed on 12/16/12 1013 by ITS IMPORTSign by Bayron Payan MD on 12/16/12 1014 Sign by: Bayron Payan MD [id number]-Gak-[id number]:17 EBGM EBNA > 8.0 {AI} (Abnormal) Range: 0.0-0.8 Comments: Negative <0.9Equivocal 0.9 - 1.0Positive >1.0 tEBINT Comment (Normal) Comments: EBV Interpretation Chart.Interpretation VCA-IgM EA-IgG VCA-IgG NA-ABS.Susceptible - - - -Acute Infection + +or- +or- -Convalescent Phas e +or- +or- + +Chronic or Reactivated - + + +or-Old Infection - - +or- ++ Antibody Present - Antibody AbsentPerformed at: [address] [id number] Director: Yury Cornelius PhD, Phone: [phone] EBVG > 8.0 {AI} (Abnormal) Range: 0.0-0.8 Comments: Negative <0.9Equivocal 0.9 - 1.0Positive >1.0 EBEAG <0.2 {AI} (Normal) Range: 0.0-0.8 Comments: Negative <0.9Equivocal 0.9 - 1.0Positive >1.0 EBVM < 0.2 {AI} (Normal) Range: 0.0-0.8 Comments: Negative <0.9Equivocal 0.9 - 1.0Positive >1.0 :17 HEABC tHEPCCOMM Comment (Normal) Comments: Non reactive HCV antibody screen is consistent with no HCVinfection, unless recent infection is suspected or otherevidence exists to indicate HCV infection. $tHCVRIBA <TEST NOT PERFORMED> (Normal) tHECABR <0.1 (Normal) Range: 0.0-0.9 Comments: INFCE Result Units: s/co ratio $tHEBSAB 93.23 (Normal) Comments: INFCE Result Units: Index ValueStatus of Immunity Anti-HBs Level Inconsistent with Immunity 0.00 - 0. 99Consistent with Immunity >0.99.An Index Value of 1.00 is equivalent to 10 mIU/mL.However the magnitude of the Index Value is notindicative of the total amount of antibody present. HEBCM Negative (Normal) HEBCT Negative (Normal) HEAT Negative (Normal) ttHEBSAG Negative (Normal) HEAM Negative (Normal) :17 LIVER BID 0.12 mg/dL (Normal) Range: 0.00-0.30 BIT 0.40 mg/dL (Normal) Range: 0.00-1.00 ALT 182 U/L (Abnormal) Range: 12-78 ALK 122 U/L (Normal) Range: 50-136 AST 121 U/L (Abnormal) Range: 15-37 ALB 4.1 g/dL (Normal) Range: 3.4-5.0 TPROT 7.3 g/dL (Normal) Range: 6.4-8.2 47-Wvf-[id number]:17 TSH 1.08 {uIU/mL} (Normal) Range: 0.358-3.74 :46 CHEST WITHOUT CONTRAST Radiology Report See Note (Normal) Comments: PROCEDURE: CT CHEST WITHOUT CONTRAST REASON FOR EXAM: Female, 62 years old. Follow-up nodule RADIATION DOSAGE (If Supplied By Facility): CTDIvol = ( 16.50 ) mGy, DLP=( 543.50 ) mGycm TECHNIQUE: High resolution transaxial imaging was performed without theadministration of intravenous contrast material. Multiplanar coronal andsagittal images were reformatted. COMPARISON: Most recent previous study 12/22/2011 and most remotepreviousstudy 02/16/2011 FINDINGS: The 6-mm nodule in the right lateral lung base is again demonstrated,currently on image 60/107. He remains unchanged since 02/16/2011, the earliest study available for comparison. There is minimal stablescarringin the lung bases and minimal linear fibrosis in the right lung apex, allstable. Normal heart and pericardium. Normal mediastinum . Normal hilar regions. Normal unenhanced pulmonaryarteries. There is mild ectasia of the A. descending thoracic aorta withmaximum transverse diameter 4.3-cm. It is also unchanged since 02/16/2011. T here are multi-level degenerative changes of the thoracic spine. There is limited visualization of the liver, spleen, pancreas, adrenalglands, and abdominal aorta without a demonstrated abnormality. Th epreviously demonstrated calculus in the left kidney is not included onthecurrent examination. IMPRESSION:Stable 6-mm nodule right lateral lung base.No new findings. Please see details above. Signed:Clark D.O.June 27, 2012 at 5:23:04 PM [id number] Signed DL/DL If you are the referring physician and would like to consult with theradiologist who provided this interpretati on, please contact Mone Lazo at [phone]. If this radiologist is unavailable, you will bedirected to another radiologist to assist. If you are a patient with a question regarding this report , pleasecontactyour referring physician directly. Professional Interpretation Provided By: [email or web address], Phone , These documents contain legally protected and confidential h ealthinformation intended only for the use of the individual or entity namedabove. If you are not the intended recipient, you are hereby notifiedthatany disclosure, copying, distribution, or other use o f these documents isstrictly prohibited. If you have received this information in error,pleasenotify the sender immediately and arrange for the return or destructionofthese documents. Dictated on 01/30 0901 by Lerro DO,DesireeTranscribed on 06/27/121726 by ITS IMPORTSign by Zhou Kamilla ABREU on 06/27/121727 Sign by: Kamilla Epperson DO [id number]-[id number]:41 DEXA BONE DENSITY STUDY (HP) Radiology Report See Note (Normal) Comments: PROCEDURE: DUAL ENERGY X-RAY ABSORPTIOMETRY / DXA REASON FOR EXAM: Female, 62 years old. Early menopause. TECHNIQUE: Bone Mineral Density (BMD) measurements of lumbar spine andbilatera l hips were obtained. COMPARISON: Comparison is made with prior study dated March 03, 2004. FINDINGS: Lumbar Spine (L1-L4): g/cm2 (0.977) / T-score (-1.9) / Z- score (-0.4) Left Femur Total: g/cm2 (0.859) / T-score (-1.2) / Z-score (-0.1)Left Femoral Neck: g/cm2 (0.800) / T-score (-1.7) / Z-score (-0.3)Right Femur Total: g/cm2 (0.840) / T-score (-1.3) / Z-score (-0.2)Right Femoral Neck: g/c m2 (0.826) / T-score (-1.5) / Z-score (-0.1) The T-Scores on the most recent prior examination were: Lumbar Spine (L1-L4): which represents an improvement of 6.0%.Left Femur Total: which r epresents a worsening of 12.9%. IMPRESSION:The patient is considered osteopenic, as outlined above, according toWorldHealth Organization (WHO) criteria. Fracture risk is moderate. Reference Information :The T-score is the number of standard deviations above or below thestandard which is normal for young adults at their peak bone mineraldensity. The World Health Organization (WHO) interprets the T-scor es asfollows: Above -1 Normal bone densityBetween -1 and -2.5 OsteopeniaEqual to / or below -2.5 Osteoporosis As a practical clinical guideline, osteopenia may be graded as follows:Mild -1 through -1.5Moderate -1.6 through -2.0Severe -2.1 through -2.4 The Z-score is the number of standard deviations above or below age-matchedcontrols. A Z- score of less than -1.5 would be considered ab normal. References:1. NIH Osteoporosis and Related Bone Diseases http://www.osteo.org2. International Society for Clinical Densitometry http://www.iscd.org3. National Osteoporosis Foundation http://w ww.nof.org Signed:Bayron Payan M.D.June 26, 2012 at 11:52:03 AM [id number] Signed GP/GP If you are the referring physician and would like to consult with theradiologist who provided this interpretation, please contact Nicolas Boyer at [phone]. If this radiologist is unavailable, youwill be directed to another radiologist to assist. If you are a patient with a question regarding this report, pleasecontactyour referring physician directly. Professional Interpretation Provided By: [email or web address], Phone , These documents contain lega lly protected and confidential healthinformation intended only for the use of the individual or entity namedabove. If you are not the intended recipient, you are hereby notifiedthatany disclosure, copyi ng, distribution, or other use of these documents isstrictly prohibited. If you have received this information in error,pleasenotify the sender immediately and arrange for the return or destructionofthe se documents. Dictated on 06/26/12 1103 by Rocio Payan MDranscribed on 06/26/12 1231 by ITS IMPORTSign by Bayron Payan MD on 06/26/12 1232 Sign by: Bayron Payan MD 30-Nov-083630:08 T4, FREE (THYROXINE) Comments: PATIENT NOT FASTINGPERFORMED BY: [facility] [id number] Information: [id number] ([id number]) T4,Free(Direct) 1.34 ng/dL (Normal) Range: 0.82-1.77 30-Kwq-488955:08 T3, FREE (TRIDOTHYRONINE) (04072) Comments: PATIENT NOT FASTINGPERFORMED BY: [facility] [id number] Triiodothyronine,Free,Serum 2.7 pg/mL (Normal) Range: 2.0-4.4 44-Kce-624632:08 TSH (19550) Comments: PATIENT NOT FASTINGPERFORMED BY: [facility] [id number] TSH 1.370 {uIU/mL} (Normal) Range: 0.450-4.500 :58 CBCMD RBCM NORM C+C {NORMAL} (Normal) PE ADEQUATE (Normal) EOS 5 % (Normal) Range: 0-5 MON 2 % (Normal) Range: 0-10 LYMPH 40 % (Normal) Range: 19-41 PMN 53 % (Normal) Range: 47-70 LUZ MARINA 100 (Normal) ANC 2.3 3/uL (Normal) Range: 2.0-7.7 PLT 275 K/mm3 (Normal) Range: 150-450 RDW 12.9 % (Normal) Range: 11.6-14.6 MCHC 33.0 g/dL (Normal) Range: 32-36 MCH 30.4 pg (Normal) Range: 27.0-32.0 MCV 92.3 fL (Normal) Range: 81-99 HCT 37.6 % (Normal) Range: 37-47 HGB 12.4 g.dL (Normal) Range: 12.0-15.0 RBC 4.08 {M/mm3} (Abnormal) Range: 4.2-5.4 WBC 4.4 K/mm3 (Normal) Range: 4.4-11.0 :58 CMP GAP 9 (Normal) Range: 5-15 CL 107 mmol/L (Normal) Range: 98-107 CO2 28.0 mmol/L (Normal) Range: 21.0-32.0 K 4.0 mmol/L (Normal) Range: 3.5-5.1 NA 144 mmol/L (Normal) Range: 136-145 ALT 21 U/L (Normal) Range: 12-78 BIT 0.60 mg/dL (Normal) Range: 0.00-1.00 ALK 74 U/L (Normal) Range: 50-136 AST 16 U/L (Normal) Range: 15-37 CA 8.8 mg/dL (Normal) Range: 8.5-10.1 AG 1.3 {RATIO} (Normal) Range: 0.9-2.4 GLOB 2.9 g/dL (Normal) Range: 2.7-4.2 ALB 3.9 g/dL (Normal) Range: 3.4-5.0 BC 23.0 {RATIO} (Abnormal) Range: 10-20 TPROT 6.8 g/dL (Normal) Range: 6.4-8.2 GFRAA 73 mL/min (Normal) GFR 60 mL/min (Normal) CREAT 1.0 mg/dL (Normal) Range: 0.6-1.0 BUN 23 mg/dL (Abnormal) Range: 7-18 GLU 99 mg/dL (Normal) Range: 70-110 :58 LIPID VLDL 15 mg/dL (Normal) Range: 5-40 HDL 59 mg/dL (Normal) Comments: Reference Range HDL <40 mg/dL Low HDL Cholesterol HDL >or= 60 mg/dL High HDL Cholesterol LDL 109 mg/dL (Normal) Range: 0-130 TRIG 74 mg/dL (Normal) Comments: Serum Triglycerides Reference Interval Normal <150 mg/dL Borderline high 150 - 199 mg/dL High 200 - 499 mg/dL Very High > or = 500 mg/dL CHOL 183 mg/dL (Normal) Comments: <200 mg/dL Desirable 200-240 mg/dL Borderline >240 mg/dL High Risk :58 VITD 61.8 ng/mL (Normal) Range: 30.0-100.0 Comments: Vitamin D deficiency has been defined by the [place] of[place] and an Endocrine Society practice guideline as alevel of serum 25-OH vitamin D less than 20 ng/mL (1,2).The Endocrine Society went on to further define vitamin Dinsufficiency as a level between 21 and 29 ng/mL (2).1. IOM ([place] of Medicine). 2010. Dietary reference intakes for calcium and D. [place]: The National Academies Press.2. Micky SO, [place] NC, Katrin CAMARGO, et al. Evaluation, treatment, and prevention of vitamin D deficiency: an Endocrine Society clinical practice guideline. JCEM. 2010; 96(7): 1911-30.Performed at: [facility] [id number] [place], [place] [id number] Director: Yury Cornelius PhD, Phone: [phone] 22-Dec-20110:00 CHEST WITHOUT CONTRAST Radiology Report See Note (Normal) Comments: PROCEDURE: CT CHEST WITHOUT CONTRAST REASON FOR EXAM: Female, 61 years old. Lung nodule TECHNIQUE: High resolution transaxial imaging was performed without theadministration of intrav enous contra st material. COMPARISON: None. FINDINGS: Right lower lung nodule measuring 6 mm on axial image # 65 is similar topbooner study allowing for differences in technical factors. There isminimal basilar sca rring or atelectasis there is no new mass or noduleseen. There is no demonstrated pleural abnormality. Normal heart and pericardium. Normal mediastinum. Normal hilar regions. Normal unenhanced pulmon aryarteries. There is atherosclerotic calcification of the aortic arch withtortuosity and elongation of the aortic arch and descending thoracicaorta. There are mild degenerative changes of the thoracic spine. There is stone above the upper pole the left kidney measuring 9 mm IMPRESSION:Stable right lower lung nodule Signed:Luis Manuel Stahl M.D.December 22, 2011 at 10:54:03 AM EDTElectronically Signed BP/ BP Professional Interpretation Provided By: [facility], , To consult with a radiologist regarding this report, please call our [id number] juanita e @ Dictated on 12/22/11 1022 by Luis Manuel Stahl MDTranscribed on 12/22/11 1059 by ITS IMPORTSign by Luis Manuel Stahl MD on 12/22/11 1100 Sign by: Luis Manuel Stahl MD 23-Zdo-51377:36 CBCMD RBCM NORM C+C {NORMAL} (Normal) PE ADEQUATE (Normal) BAS 1 % (Normal) Range: 0-1 EOS 4 % (Normal) Range: 0-5 MON 5 % (Normal) Range: 0-10 LYMPH 32 % (Normal) Range: 19-41 PMN 58 % (Normal) Range: 47-70 LUZ MARINA 100 (Normal) ANC 1.9 3/uL (Abnormal) Range: 2.0-7.7 PLT 271 K/mm3 (Normal) Range: 150-450 RDW 12.3 % (Normal) Range: 11.6-14.6 MCHC 34.6 g/dL (Normal) Range: 32-36 MCH 31.4 pg (Normal) Range: 27.0-32.0 MCV 90.7 fL (Normal) Range: 81-99 HCT 35.1 % (Abnormal) Range: 37-47 HGB 12.1 g/dL (Normal) Range: 12.0-16.0 RBC 3.87 {M/mm3} (Abnormal) Range: 4.2-5.4 WBC 4.2 K/mm3 (Abnormal) Range: 4.4-11.0 :36 CMP Comments: appt 12/04/11 GAP 10 (Normal) Range: 5-15 CO2 28.0 mmol/L (Normal) Range: 21.0-32.0 CL 104 mmol/L (Normal) Range: 98-107 K 3.9 mmol/L (Normal) Range: 3.5-5.1 NA 142 mmol/L (Normal) Range: 136-145 BIT 0.60 mg/dL (Normal) Range: 0.00-1.00 ALT 21 U/L (Normal) Range: 12-78 ALK 71 U/L (Normal) Range: 50-136 AST 12 U/L (Abnormal) Range: 15-37 CA 8.8 mg/dL (Normal) Range: 8.5-10.1 AG 1.3 {RATIO} (Normal) Range: 0.9-2.4 GLOB 3.0 g/dL (Normal) Range: 2.7-4.2 ALB 4.0 g/dL (Normal) Range: 3.4-5.0 TPROT 7.0 g/dL (Normal) Range: 6.4-8.2 BC 21.1 {RATIO} (Abnormal) Range: 10-20 GFRAA 81 mL/min (Normal) GFR 67 mL/min (Normal) CREAT 0.9 mg/dL (Normal) Range: 0.6-1.0 BUN 19 mg/dL (Abnormal) Range: 7-18 GLU 97 mg/dL (Normal) Range: 70-110 :36 LIPID VLDL 22 mg/dL (Normal) Range: 5-40 LDL 117 mg/dL (Normal) Range: 0-130 HDL 44 mg/dL (Normal) Comments: Reference Range HDL <40 mg/dL Low HDL Cholesterol HDL >or= 60 mg/dL High HDL Cholesterol TRIG 109 mg/dL (Normal) Comments: Serum Triglycerides Reference Interval Normal <150 mg/dL Borderline high 150 - 199 mg/dL High 200 - 499 mg/dL Very High > or = 500 mg/dL CHOL 183 mg/dL (Normal) Comments: <200 mg/dL Desirable 200-240 mg/dL Borderline >240 mg/dL High Risk :36 VITD 74.9 ng/mL (Normal) Comments: appt Range: 30.0-100.0 Comments: Vitamin D deficiency has been defined by the [place] of[place] and an Endocrine Society practice guideline as alevel of serum 25-OH vitamin D less than 20 ng/mL (1,2).The Endocrine Society went on to further define vitamin Dinsufficiency as a level between 21 and 29 ng/mL (2).1. IOM ([place] of [place]). 2010. Dietary reference intakes for calcium and D. [place]: The National Academies Press.2. Micky MF, [place] NC, Katrin CAMARGO, et al. Evaluation, treatment, and prevention of vitamin D deficiency: an Endocrine Society clinical practice guideline. JCEM. 2010; 96(7): 1911-30.Performed at: - [facility] [id number] Director: Alma Rodríguez MD, Phone: [phone] CBCD,SMEAR DIFF RED CELL MORPH SeeNote {NORMAL} (Normal) Comments: Result: NORM C+C PLT EST SeeNote (Normal) Comments: Result: ADEQUATE BASOPHIL 1 % (Normal) Range: 0-1 EOS 4 % (Normal) Range: 0-5 MONOCYTE 3 % (Normal) Range: 0-10 LYMPH 49 % (Abnormal) Range: 19-41 SEGS 43 % (Abnormal) Range: 47-70 CELLS COUNTED 100 (Normal) ABSOLUTE NEUT 2.0 3/uL (Normal) Range: 2.0-7.7 PLT 281 K/mm3 (Normal) Range: 150-450 RDW 12.3 % (Normal) Range: 11.6-14.6 MCHC 34.0 g/dL (Normal) Range: 32-36 MCH 30.7 pg (Normal) Range: 27.0-32.0 MCV 90.3 fL (Normal) Range: 81-99 HCT 36.6 % (Abnormal) Range: 37-47 HGB 12.4 g/dL (Normal) Range: 12.0-16.0 RBC 4.05 {M/mm3} (Abnormal) Range: 4.2-5.4 WBC 4.5 K/mm3 (Normal) Range: 4.4-11.0 :47 COMP METABOLIC GAP 7 (Normal) Range: 5-15 CO2 29.0 mmol/L (Normal) Range: 21.0-32.0 CL 106 mmol/L (Normal) Range: 98-107 K 3.9 mmol/L (Normal) Range: 3.5-5.1 NA 142 mmol/L (Normal) Range: 136-145 T BILI 0.50 mg/dL (Normal) Range: 0.00-1.00 ALT 24 U/L (Normal) Range: 12-78 ALK P 80 U/L (Normal) Range: 50-136 AST 14 U/L (Abnormal) Range: 15-37 CA 8.8 mg/dL (Normal) Range: 8.5-10.1 A/G 1.4 {RATIO} (Normal) Range: 0.9-2.4 GLOB 2.8 g/dL (Normal) Range: 2.7-4.2 ALB 3.9 g/dL (Normal) Range: 3.4-5.0 T PROT 6.7 g/dL (Normal) Range: 6.4-8.2 BUN/CRE 21.1 {RATIO} (Abnormal) Range: 10-20 EST GFR - AA 81 mL/min (Normal) EST GFR 67 mL/min (Normal) CREAT,SERUM 0.9 mg/dL (Normal) Range: 0.6-1.0 BUN 19 mg/dL (Abnormal) Range: 7-18 GLU 88 mg/dL (Normal) Range: 70-110 13-Uib-23605:47 VIT D,25 15673 81.4 ng/mL (Normal) Range: 30.0-100.0 Comments: Vitamin D deficiency has been defined by the [place] of[place] and an Endocrine Society practice guideline as alevel of serum 25-OH vitamin D less than 20 ng/mL (1,2).The Endocrine Society went on to further define vitamin Dinsufficiency as a level between 21 and 29 ng/mL (2).1. IOM ([place] of [place]). 2011. Dietary reference intakes for calcium and D. [place]: The National AcademGuang[employer] Press.2. Micky MF, [place] NC, Katrin CAMARGO, et al. Evaluation, treatment, and prevention of vitamin D deficiency: an Endocrine Society clinical practice guideline. JCEM. 2010; 96(7): 1911-30. Please note reference interval changePerformed at: [address] [id number] Director: Alma Rodríguez MD, Phone: [phone] 35-Hjh-088291:11 CHEST WITHOUT CONTRAST Radiology Report See Note (Normal) Comments: PROCEDURE: CT CHEST WITHOUT CONTRAST REASON FOR EXAM: Female, 61 years old. Nodule follow-up TECHNIQUE: High resolution transaxial imaging was performed without theadministration of i ntravenous c ontrast material. COMPARISON: February 16, 2011 FINDINGS: There is a 5-mm nodule in the right lower lobe which is not calcified butstable since the prior study. No new nodules are seen. Improvedexpansio nof the lower lobe since the prior study. There is no demonstratedpleuralabnormality. Normal heart and pericardium. There are multiple small lymph nodes within the mediastinum, which arenormal in size and morphology most compatible with reactive lymphhyperplasia. Normal hilar regions. Normal unenhanced pulmonaryarteries.Normal unenhanced thoracic aorta and visualized great vessels. Normal osseous s tructures. There is a nonobstructing calcification of left kidney, stable. IMPRESSION:1. Stable 5-mm nodule in the right lower lobe. Recommend follow-up CTinone year to document stability. 2. Reactiv e lymph nodes of the mediastinum. 3. Nonobstructing left renal stone, stable. Dictated on 06/07/11 1022 by RAY JON MD BTranscribed on 06/07/11 1201 by ITS IMPORTSign by RAY JON MD on 1202 Sign by: RAY JON MD :49 LIPID VLDL 14 mg/dL (Normal) Range: 5-40 LDL 126 mg/dL (Normal) Range: 0-130 HDL 49 mg/dL (Normal) Comments: Reference Range HDL <40 mg/dL Low HDL Cholesterol HDL >or= 60 mg/dL High HDL Cholesterol TRIG 68 mg/dL (Normal) Comments: Serum Triglycerides Reference Interval Normal <150 mg/dL Borderline high 150 - 199 mg/dL High 200 - 499 mg/dL Very High > or = 500 mg/dL CHOL 189 mg/dL (Normal) Comments: <200 mg/dL Desirable 200-240 mg/dL Borderline >240 mg/dL High Risk :56 CHEST WITH CONTRAST Radiology Report See Note (Normal) Comments: PROCEDURE: CT CHEST WITH CONTRAST REASON FOR EXAM: Female, 61 years old. Right anterior chest pain andshortness of breath. Recent long-distance travel. TECHNIQUE: High resolution transaxial imagi ng was performed followingintravenous administration of 100 ml of Isovue 370 contrast material. COMPARISON: None. FINDINGS:There is no filling defect in the pulmonary arteries to suggest thepresence o f pulmonary embolism. There is atelectasis at the lung bases. There is a 5-mm noncalcifiednodule in the right lower lobe (series 3 image 65). There issubsegmentalatelectasis in the right middle lobe a nd lingula. There are no discretepulmonary infiltrates. There is no demonstrated pleural abnormality. Normal heart and pericardium. Normal mediastinum. Normal hilar regions. Normal enhancement of th epulmonary arteries. Normal enhanced thoracic aorta and visualized greatvessels. There are multi-level degenerative changes of the thoracic spine withmilddextroscoliosis. There is limited visualization of the liver, spleen, pancreas, adrenalglands, and abdominal aorta without a demonstrated abnormality. IMPRESSION:No evidence of pulmonary embolism. Bibasilar atelectasis with no focal pulmonary infilt rates. 5-mm noncalcified nodule in the right lower lobe, which is nonspecific.Recommend follow-up in 3 to 6 months for further evaluation, ifclinicallywarranted. Dictated on 02/16/11 1124 by Hiwot KRISHNAN,Jaleleranscribed on 02/16/111203 by ITS IMPORTSign by Hiwot KRISHNAN,Luz on 02/16/111204 Sign by: Luz Valera MD C-REACTIVE PROT < 2.90 mg/L Range: 0.0-3.0 :28 (Normal) Comments: C-Reactive Protein (CRP) provides useful information for thediagnosis, therapy and monitoring of inflammatory processesand associated diseases. For the evaluation of Relative Riskfor Cardiovascular Dise ase, a High Sensitivity CRP (HSCRP)should be ordered. :28 CBCD,SMEAR DIFF RED CELL MORPH SeeNote {NORMAL} (Normal) Comments: Result: NORM C+C PLT EST SeeNote (Normal) Comments: Result: ADEQUATE EOS 3 % (Normal) Range: 0-5 MONOCYTE 6 % (Normal) Range: 0-10 LYMPH 33 % (Normal) Range: 19-41 BAND 2 % (Normal) Range: 0-5 SEGS 56 % (Normal) Range: 47-70 CELLS COUNTED 100 (Normal) ABSOLUTE NEUT 2.2 3/uL (Normal) Range: 2.0-7.7 PLT 245 K/mm3 (Normal) Range: 150-450 RDW 12.6 % (Normal) Range: 11.6-14.6 MCHC 33.1 g/dL (Normal) Range: 32-36 MCH 31.0 pg (Normal) Range: 27.0-32.0 MCV 93.6 fL (Normal) Range: 81-99 HCT 35.6 % (Abnormal) Range: 37-47 HGB 11.8 g/dL (Abnormal) Range: 12.0-16.0 RBC 3.80 {M/mm3} (Abnormal) Range: 4.2-5.4 WBC 3.8 K/mm3 (Abnormal) Range: 4.4-11.0 :28 COMP METABOLIC GAP 9 (Normal) Range: 5-15 CO2 30.0 mmol/L (Normal) Range: 21.0-32.0 CL 104 mmol/L (Normal) Range: 98-107 K 4.2 mmol/L (Normal) Range: 3.5-5.1 NA 143 mmol/L (Normal) Range: 136-145 T BILI 0.40 mg/dL (Normal) Range: 0.00-1.00 ALT 22 U/L (Normal) Range: 12-78 ALK P 80 U/L (Normal) Range: 50-136 AST 9 U/L (Abnormal) Range: 15-37 CA 9.5 mg/dL (Normal) Range: 8.5-10.1 A/G 1.5 {RATIO} (Normal) Range: 0.9-2.4 GLOB 2.6 g/dL (Abnormal) Range: 2.7-4.2 ALB 4.0 g/dL (Normal) Range: 3.4-5.0 T PROT 6.6 g/dL (Normal) Range: 6.4-8.2 BUN/CRE 25.7 {RATIO} (Abnormal) Range: 10-20 EST GFR - AA 109 mL/min (Normal) EST GFR 90 mL/min (Normal) CREAT,SERUM 0.7 mg/dL (Normal) Range: 0.6-1.0 BUN 18 mg/dL (Normal) Range: 7-18 GLU 98 mg/dL (Normal) Range: 70-110 :28 D-DIMER QUANT 0.36 {FEUug/mL} (Normal) Range: 0.22-0.48 Comments: Effective DECEMBER 19, 2010.NORMAL D-Dimer level indicates no DVT or PE. :28 ESR SED RATE 11 mm/h (Normal) Range: 0-30 :46 RIBS UNIL 2V NO CXR Radiology Report See Note (Normal) Comments: PROCEDURE: X-RAY - UNILATERAL RIBS ( RIGHT ) REASON FOR EXAM: Female, 61 years old. Pain in joints. Pain below theright breast. TECHNIQUE: Four views of the ribs. COMPARISON: None. FINDINGS:No rmal visualized ribs. There is no demonstrated rib fracture. Normal visualized lung. There is no demonstrated pneumothorax. There is scoliosis convex to the right in the mid thoracic spine. IMPRESSION :Normal x-ray examination of the ribs. Dictated on 02/06/11947 by Zahida Guerra MDTranscribed on 02/06/111844 by ITS IMPORTSign by Zahida Guerra MD on 02/06/111845 Sign by: Zahida Guerra MD :00 CHEST, PA AND LATERAL Radiology Report See Note (Normal) Comments: PROCEDURE: X-RAY CHEST REASON FOR EXAM: Female, 61 years old. Pain below lower ribsanteriorlyand the lower right breast. TECHNIQUE: PA and lateral views of the chest. COMPARISON: pt2008 FINDINGS: The lungs are expanded. There is no demonstrated parenchymalabnormality.There is no demonstrated pleural abnormality. Normal heart and pericardium. Normal mediastinum and robe. Normal v isualized pulmonary arteries.Normalvisualized aortic arch and descending thoracic aorta. There is scoliosis of the thoracic spine unchanged. Normal visualizedribs, clavicles, and shoulders. There is no demonstrated abnormality of the visualized soft tissuestructures of the upper abdomen. IMPRESSION:No interval change and no active or acute cardiopulmonary disease. Dictated on 02/06/11947 by Zahida Guerra MDTranscribed on 02/06/112209 by ITS IMPORTSign by Zahida Guerra MD on 02/06/112210 Sign by: Zahida Guerra MD :18 COMP METABOLIC Comments: appt 11/14/10 CL 104 mmol/L (Normal) Range: 98-107 CO2 29.0 mmol/L (Normal) Range: 21.0-32.0 GAP 8 (Normal) Range: 5-15 K 4.1 mmol/L (Normal) Range: 3.5-5.1 NA 141 mmol/L (Normal) Range: 136-145 T BILI 0.40 mg/dL (Normal) Range: 0.00-1.00 ALT 20 U/L (Normal) Range: 12-78 ALK P 64 U/L (Normal) Range: 50-136 AST 10 U/L (Abnormal) Range: 15-37 CA 9.0 mg/dL (Normal) Range: 8.5-10.1 A/G 1.3 {RATIO} (Normal) Range: 0.9-2.4 ALB 3.5 g/dL (Normal) Range: 3.4-5.0 GLOB 2.6 g/dL (Abnormal) Range: 2.7-4.2 BUN/CRE 24.3 {RATIO} (Abnormal) Range: 10-20 EST GFR - AA 109 mL/min (Normal) T PROT 6.1 g/dL (Abnormal) Range: 6.4-8.2 EST GFR 90 mL/min (Normal) BUN 17 mg/dL (Normal) Range: 7-18 CREAT,SERUM 0.7 mg/dL (Normal) Range: 0.6-1.0 GLU 92 mg/dL (Normal) Range: 70-110 :18 LIPID VLDL 17 mg/dL (Normal) Range: 5-40 HDL 44 mg/dL (Normal) Comments: Reference Range HDL <40 mg/dL Low HDL Cholesterol HDL >or= 60 mg/dL High HDL Cholesterol LDL 111 mg/dL (Normal) Range: 0-130 TRIG 85 mg/dL (Normal) Comments: Serum Triglycerides Reference Interval Normal <150 mg/dL Borderline high 150 - 199 mg/dL High 200 - 499 mg/dL Very High > or = 500 mg/dL CHOL 172 mg/dL (Normal) Comments: <200 mg/dL Desirable 200-240 mg/dL Borderline >240 mg/dL High Risk :18 VIT D,25 43327 78.0 ng/mL (Normal) Comments: appt 11/14/10 Range: 32.0-100.0 Comments: Recent studies consider the lower limit of 32.0 ng/mL to bradley threshold for optimal health.William VIVAR. J Nutr. 2004;135(2):317-22.Performed at: - [facility] [address] [id number]Lab Director: Alma Rodríguez MD, Phone: [phone] :19 COMP METABOLIC GAP 9 (Normal) Range: 5-15 CL 106 mmol/L (Normal) Range: 98-107 CO2 28.0 mmol/L (Normal) Range: 21.0-32.0 K 4.6 mmol/L (Normal) Range: 3.5-5.1 NA 143 mmol/L (Normal) Range: 136-145 T BILI 0.60 mg/dL (Normal) Range: 0.00-1.00 ALT 25 U/L (Normal) Range: 12-78 ALK P 73 U/L (Normal) Range: 50-136 AST 14 U/L (Abnormal) Range: 15-37 A/G 1.4 {RATIO} (Normal) Range: 0.9-2.4 CA 9.0 mg/dL (Normal) Range: 8.5-10.1 GLOB 2.7 g/dL (Normal) Range: 2.7-4.2 ALB 3.8 g/dL (Normal) Range: 3.4-5.0 T PROT 6.5 g/dL (Normal) Range: 6.4-8.2 BUN/CRE 21.1 {RATIO} (Abnormal) Range: 10-20 EST GFR 68 mL/min (Normal) EST GFR - AA 82 mL/min (Normal) CREAT,SERUM 0.9 mg/dL (Normal) Range: 0.6-1.0 BUN 19 mg/dL (Abnormal) Range: 7-18 GLU 87 mg/dL (Normal) Range: 70-110 :19 LIPID VLDL 17 mg/dL (Normal) Range: 5-40 HDL 51 mg/dL (Normal) Comments: Reference Range HDL <40 mg/dL Low HDL Cholesterol HDL >or= 60 mg/dL High HDL Cholesterol LDL 136 mg/dL (Abnormal) Range: 0-130 TRIG 86 mg/dL (Normal) Comments: Serum Triglycerides Reference Interval Normal <150 mg/dL Borderline high 150 - 199 mg/dL High 200 - 499 mg/dL Very High > or = 500 mg/dL CHOL 204 mg/dL (Abnormal) Comments: <200 mg/dL Desirable 200-240 mg/dL Borderline >240 mg/dL High Risk :19 VIT D,25 90338 55.3 ng/mL (Normal) Range: 32.0-100.0 Comments: Recent studies consider the lower limit of 32.0 ng/mL to bradley threshold for optimal health.William VIVAR. J Nutr. 2005 Aug;135(2):317-22.Performed at: [facility] [place] [id number]Lab Director: Alma Rodríguez MD, Phone: [phone] [id number] BILAT SCRN DIGITAL & CAD Radiology Report See Note (Normal) Comments: MAMMOGRAPHY - BILATERAL SCREENING INDICATION:Routine annual screening examination. PERTINENT HISTORY:Non- contributory. TECHNIQUE:Digital examination. Mediolateral oblique (MLO) and craniocaudad (CC)view sof both breasts were obtained. CAD was performed on this study. COMPARISON:November 07, 2007 and March 05, 2009 FINDINGS:The breast composition is There are no masses or suspicious microcalcifications. N o other significant abnormalities are identified. IMPRESSION:Normal bilateral screening mammogram. Yearly follow-up recommended. ASSESSMENT CATEGORY:Category 1: Negative Approximately 10% of breast canc ers are not detected by mammography. Anormal mammogram should not delay biopsy of a clinically suspiciousabnormality. Dictated on 06/14/10728 by SLOANE TRIVEDITranscribed on 06/14/10728 by BETHEL COLUNGA MCKESSONSign by SLOANE TRIVEDI on 06/14/10 135 Sign by: SLOANE TRIVEDI [id number]:57 COMP METABOLIC ALK P 82 U/L (Normal) Range: 50-136 ALT 21 U/L (Normal) Range: 12-78 CL 103 mmol/L (Normal) Range: 98-107 CO2 29.0 mmol/L (Normal) Range: 21.0-32.0 GAP 7 (Normal) Range: 5-15 K 4.0 mmol/L (Normal) Range: 3.5-5.1 NA 139 mmol/L (Normal) Range: 136-145 T BILI 0.40 mg/dL (Normal) Range: 0.00-1.00 A/G 1.2 {RATIO} (Normal) Range: 0.9-2.4 ALB 3.7 g/dL (Normal) Range: 3.4-5.0 AST 12 U/L (Abnormal) Range: 15-37 BUN/CRE 26.3 {RATIO} (Abnormal) Range: 10-20 CA 8.7 mg/dL (Normal) Range: 8.5-10.1 EST GFR 78 mL/min (Normal) EST GFR - AA 95 mL/min (Normal) GLOB 3.1 g/dL (Normal) Range: 2.7-4.2 T PROT 6.8 g/dL (Normal) Range: 6.4-8.2 BUN 21 mg/dL (Abnormal) Range: 7-18 CREAT,SERUM 0.8 mg/dL (Normal) Range: 0.6-1.0 GLU 88 mg/dL (Normal) Range: 70-110 :57 LIPID VLDL 20 mg/dL (Normal) Range: 5-40 CHOL 204 mg/dL (Abnormal) Comments: <200 mg/dL [id number] mg/dL Borderline>240 mg/dL High Risk HDL 48 mg/dL (Normal) Comments: Reference RangeHDL <40 mg/dL Low HDL CholesterolHDL >or= 60 mg/dL High HDL Cholesterol LDL 136 mg/dL (Abnormal) Range: 0-130 TRIG 102 mg/dL (Normal) Comments: Serum Triglycerides Reference IntervalNormal <150 mg/dLBorderline high 150 - 199 mg/dLHigh 200 - 499 mg/ dLVery High > or = 500 mg/dL :57 VIT D,25 94393 53.8 ng/mL (Normal) Range: 32.0-100.0 Comments: Recent studies consider the lower limit of 32.0 ng/mL to bradley threshold for optimal health.William VIVAR. J Nutr. 2004;135(2):317-22.Performed at: [facility] [id number]Lab Director: Alma Rodríguez MD, Phone: [phone] :[phone] LIPID HDL 49 mg/dL (Normal) Comments: Reference RangeHDL <40 mg/dL Low HDL CholesterolHDL >or= 60 mg/dL High HDL Cholesterol LDL 123 mg/dL (Normal) Range: 0-130 TRIG 89 mg/dL (Normal) Comments: Serum Triglycerides Reference IntervalNormal <150 mg/dLBorderline high 150 - 199 mg/dLHigh 200 - 499 mg/ dLVery High > or = 500 mg/dL VLDL 18 mg/dL (Normal) Range: 5-40 CHOL 190 mg/dL (Normal) Comments: <200 mg/dL Bpysskhbd044-819 mg/dL Borderline>240 mg/dL High Risk :13 LIVER ALB 3.6 g/dL (Normal) Range: 3.4-5.0 ALK P 92 U/L (Normal) Range: 50-136 ALT 21 U/L (Normal) Range: 12-78 AST 15 U/L (Normal) Range: 15-37 D BILI 0.13 mg/dL (Normal) Range: 0.00-0.30 T BILI 0.50 mg/dL (Normal) Range: 0.00-1.00 T PROT 6.9 g/dL (Normal) Range: 6.4-8.2 :13 VIT D,25 64372 36.7 ng/mL (Normal) Range: 32.0-100.0 Comments: Recent studies consider the lower limit of 32.0 ng/mL to bradley threshold for optimal health.William VIVAR. J Nutr. 2004;135(2):317-22.Performed at: [address] [id number] Director: Milan Torres MD [id number] ABDOMEN/PELVIS WITH CONTRAST Radiology Report See Note (Normal) Comments: Exam Number: [id number] CLINICAL:Abdominal pain. CT ABDOMEN AND PELVIS WITH CONTRAST TECHNIQUE:Transaxial images were obtained from the dome of the diaphragm tothe symphysis pubis with oral contrast. 1 00 ml of Isovue-300contrast was administered intravenously. COMPARISON:CT abdomen and pelvis dated 11/29/06 FINDINGS:There is been no significant interval change in a 5-mm noncalcifiednodule in the righ t lower lobe (series 2 image 5). Normal enhanced liver. There is no demonstrated mass lesion of theliver. There is nonvisualization of the gallbladder consistent with a priorcholecystectomy. There is no biliary ductal dilatation. Normal enhanced spleen. There is no demonstrated splenic masslesion. Normal pancreas. There is no demonstrated mass lesion of thepancreas. Normal bilateral adrenal glands . There is no demonstrated masslesion of the adrenal glands. Normal size of the right kidney. Normal excretion of contrastmaterial of the right kidney. There is no right renal mass. Thereare no righ t renal calculi. There is no right hydronephrosis.Normal visualized right ureter. Normal size of the left kidney. Normal excretion of contrastmaterial of the left kidney. There is no left renal mass. There clotilde 5-mm density in the upper pole of the left kidney, suspicious fornonobstructing calculus (series 2, image 32).. There is no lefthydronephrosis. Normal visualized left ureter. Normal visual ized stomach. Normal small intestine. There aremultiple colonic diverticula consistent with diverticulosis. The appendix is not visualized. Normal mesentery and peritoneum. There is no free fluid in t he abdomen. There is no free air in theabdomen. Normal retroperitoneum. There is diffuse atherosclerotic calcification of the abdominalaorta. There is mild atherosclerotic calcification of the pelvica rteries. Normal inferior vena cava. Normal opacified urinary bladder. There is no pelvic mass lesion. There is no pelvic fluid. There isno pelvic lymphadenopathy. There is absence of the uteruscons istent with a prior hysterectomy. Surgical clips are again notedin the left pelvis. Normal abdominal wall. There are diffuse degenerative changes ofthe visualized lumbar spine. Bilateral pars interart icularisdefects are again identified at L5 without significantspondylolisthesis. IMPRESSION:Stable 5 mm, noncalcified nodule in the right lower lobe. 5-mm density in the upper pole of the left kidney, s uspicious fornonobstructing calculus. Scattered colonic diverticula without acute diverticulitis. Status post cholecystectomy and hysterectomy. Degenerative changes of the spine with bilateral parsinter articularis defects at L5. No significant spondylolisthesis. Reported By: LUZ VALERA M.D. [id number] CBCD,SMEAR DIFF BAND 2 % (Normal) Range: 0-5 BASOPHIL 1 % (Normal) Range: 0-1 CELLS COUNTED 100 (Normal) EOS 4 % (Normal) Range: 0-5 HCT 39.0 % (Normal) Range: 37-47 HGB 12.7 g/dL (Normal) Range: 12.0-16.0 LYMPH 45 % (Abnormal) Range: 19-41 MCH 30.5 pg (Normal) Range: 27.0-32.0 MCHC 32.5 g/dL (Normal) Range: 32-36 MCV 93.9 fL (Normal) Range: 81-99 MONOCYTE 6 % (Normal) Range: 0-10 PLT 270 K/mm3 (Normal) Range: 150-450 PLT EST SeeNote (Normal) Comments: Result: ADEQUATE RBC 4.15 {M/mm3} (Abnormal) Range: 4.2-5.4 RDW 12.9 % (Normal) Range: 11.6-14.6 RED CELL MORPH SeeNote {NORMAL} (Normal) Comments: Result: NORM C+C SEGS 42 % (Abnormal) Range: 47-70 WBC 3.5 K/mm3 (Abnormal) Range: 4.4-11.0 :14 COMP METABOLIC A/G 1.3 {RATIO} (Normal) Range: 0.9-2.4 ALB 3.8 g/dL (Normal) Range: 3.4-5.0 ALK P 68 U/L (Normal) Range: 50-136 ALT 31 U/L (Normal) Range: 12-78 Comments: Please Note: Revised Reference Range effective 09 AST 19 U/L (Normal) Range: 15-37 BUN 20 mg/dL (Abnormal) Range: 7-18 BUN/CRE 25.0 {RATIO} (Abnormal) Range: 10-20 CA 8.9 mg/dL (Normal) Range: 8.5-10.1 CL 107 mmol/L (Normal) Range: 98-107 CO2 26.0 mmol/L (Normal) Range: 21.0-32.0 CREAT,SERUM 0.8 mg/dL (Normal) Range: 0.6-1.0 EST GFR 78 mL/min (Normal) EST GFR - AA 95 mL/min (Normal) GAP 9 (Normal) Range: 5-15 GLOB 2.9 g/dL (Normal) Range: 2.7-4.2 GLU 96 mg/dL (Normal) Range: 70-110 K 4.1 mmol/L (Normal) Range: 3.5-5.1 NA 142 mmol/L (Normal) Range: 136-145 T BILI 0.50 mg/dL (Normal) Range: 0.00-1.00 T PROT 6.7 g/dL (Normal) Range: 6.4-8.2 :14 LIPID CHOL 205 mg/dL (Abnormal) Comments: <200 mg/dL Desirable 200-240 mg/dL Borderline >240 mg/dL High Risk HDL 42 mg/dL (Normal) Comments: Reference Range HDL <40 mg/dL Low HDL Cholesterol HDL >or= 60 mg/dL High HDL Cholesterol LDL 140 mg/dL (Abnormal) Range: 0-130 TRIG 113 mg/dL (Normal) Comments: Serum Triglycerides Reference Interval Normal <150 mg/dL Borderline high 150 - 199 mg/dL High 200 - 499 mg/dL Very High > or = 500 mg/dL VLDL 23 mg/dL (Normal) Range: 5-40 :14 TSH 1.64 {uIU/mL} (Normal) Range: 0.358-3.74 :14 VIT D,25 51925 38.9 ng/mL (Normal) Range: 32.0-100.0 Comments: Recent studies consider the lower limit of 32.0 ng/mL to bradley threshold for optimal health.William VIVAR. J Nutr. 2004;135(2):317-22.Performed At: [facility] [id number] [place], [place] [id number] :10 C-REACTIVE PROT 40.70 mg/L (Abnormal) Range: 0.0-3.0 Comments: C-Reactive Protein (CRP) provides useful information for thediagnosis, therapy and monitoring of inflammatory processesand associated diseases. For the evaluation of Relative Riskfor Cardiovascular Dise ase, a High Sensitivity CRP (HSCRP)should be ordered. :10 ESR SED RATE 50 (Abnormal) Range: 0-20 :03 Urinalysis, Office (15813) UA - BILIRUBIN Negative (Normal) UA - BLOOD Non Hemolyzed Moderate (Normal) UA - GLUCOSE Negative (Normal) UA - KETONES Negative mg/dL (Normal) UA - LEUKOCYTE ESTERASE Moderate (Normal) UA - NITRITE Negative (Normal) UA - PH 7.5 (Normal) UA - PROTEIN Negative mg/dL (Normal) UA - SPECIFIC GRAVITY 1.015 (Normal) URINE UROBILINGN ZACHARY TIMED 2 mg/dL (Normal) :00 CULTURE, URINE URINE CULTURE See Note {CFU/mL} Comments: COLONY COUNT >100,000 ORGANISM 1: PROTEUS MIRABILIS PROTEUS MIRABILIS: REACTION AMIKACIN s <=2 S AMPICILLIN GN (Normal) $$ <=2 S AMPICILLIN/SULBACTAM $$ <=2 S CEFAZOLIN $ <=4 S CEFEPIME $$ <=1 S CEFOXITIN $ <=4 S CEFTAZIDIME (NF) $ <=1 S CEFTRIAXONE $ <=1 S CIPROFLOXACIN GN (IV/NF) $$ >=4 R ERTAPENIM $$ <=0.5 S GENTAMICIN GN $ <=1 S LEVOFLOXACIN $ 4 I NITROFURANTOIN $ 128 R PIPERACILLIN/TAZOBACTAM $$$ <=4 S TRIMETHOPRIM/SULFAMETHOXAZO $ >=320 R [id number] BILAT SCRN DIGITAL & CAD Radiology Report See Note (Normal) Comments: Exam Number: [id number] MAMMOGRAM, BILATERAL SCREENING DIGITAL AND CAD HISTORYRoutine screening. TECHNIQUE Full field digital images were obtained in mediolateral oblique andcraniocaudal proj ections. CA D images were reviewed. The current study is compared to the examinations of May, and November 07, 2007. FINDINGSThere is moderately dense fibroglandular parenchyma present. There isno skin thickening or retraction or architectural distortion. Thereis no dominant mass. There are a few small areas of asymmetric density present. There is no suspicious cluster of microcalcifications ident ified. If there is no suspicious palpableabnormality, followup mammogram in 1 year is recommended. IMPRESSIONThere is no radiographic evidence of malignancy identified. FINAL ASSESSMENTBenign findings. BIRADS Category 2. A letter regarding these results has been sent to the patient. This interpretation was rendered by a radiologist certified under theMammography Quality Standards Act of 1992 (MQS A). The mammograms werealso examined with computer-aided detection software ([employer], [employer] Reported By: SLOANE TRIVEDI M.D. [id number] BMP BUN 20 mg/dL (Abnormal) Range: 7-18 BUN/CRE 18.2 {RATIO} (Normal) Range: 10-20 CA 8.5 mg/dL (Normal) Range: 8.5-10.1 CL 107 mmol/L (Normal) Range: 98-107 CO2 26.0 mmol/L (Normal) Range: 21.0-32.0 CREAT,SERUM 1.1 mg/dL (Abnormal) Range: 0.6-1.0 EST GFR 54 mL/min (Abnormal) EST GFR - AA 65 mL/min (Normal) GAP 7 (Normal) Range: 5-15 GLU 94 mg/dL (Normal) Range: 70-110 K 3.6 mmol/L (Normal) Range: 3.5-5.1 NA 140 mmol/L (Normal) Range: 136-145 :55 LIPID CHOL 192 mg/dL (Normal) Comments: <200 mg/dL Desirable 200-240 mg/dL Borderline >240 mg/dL High Risk HDL 52 mg/dL (Normal) Comments: Reference Range HDL <40 mg/dL Low HDL Cholesterol HDL >or= 60 mg/dL High HDL Cholesterol LDL 89 mg/dL (Normal) Range: 0-130 TRIG 256 mg/dL (Abnormal) Comments: Serum Triglycerides Reference Interval Normal <150 mg/dL Borderline high 150 - 199 mg/dL High 200 - 499 mg/dL Very High > or = 500 mg/dL VLDL 51 mg/dL (Abnormal) Range: 5-40 :55 LIVER ALB 3.3 g/dL (Abnormal) Range: 3.4-5.0 ALK P 71 U/L (Normal) Range: 50-136 ALT 19 U/L (Abnormal) Range: 30-65 AST 9 U/L (Abnormal) Range: 15-37 D BILI 0.09 mg/dL (Normal) Range: 0.00-0.30 T BILI 0.40 mg/dL (Normal) Range: 0.00-1.00 T PROT 6.3 g/dL (Abnormal) Range: 6.4-8.2 :22 COMP METABOLIC A/G 1.1 {RATIO} (Normal) Range: 0.9-2.4 ALB 3.5 g/dL (Normal) Range: 3.4-5.0 ALK P 74 U/L (Normal) Range: 50-136 ALT 25 U/L (Abnormal) Range: 30-65 AST 11 U/L (Abnormal) Range: 15-37 BUN 22 mg/dL (Abnormal) Range: 7-18 BUN/CRE 22.0 {RATIO} (Abnormal) Range: 10-20 CA 8.4 mg/dL (Abnormal) Range: 8.5-10.1 CL 104 mmol/L (Normal) Range: 98-107 CO2 24.0 mmol/L (Normal) Range: 21.0-32.0 CREAT,SERUM 1.0 mg/dL (Normal) Range: 0.6-1.0 EST GFR 60 mL/min (Normal) EST GFR - AA 73 mL/min (Normal) GAP 10 (Normal) Range: 5-15 GLOB 3.3 g/dL (Normal) Range: 2.7-4.2 GLU 99 mg/dL (Normal) Range: 70-110 K 3.6 mmol/L (Normal) Range: 3.5-5.1 NA 138 mmol/L (Normal) Range: 136-145 T BILI 0.40 mg/dL (Normal) Range: 0.00-1.00 T PROT 6.8 g/dL (Normal) Range: 6.4-8.2 :22 DHEA SULF 4697 < 15 ug/dL (Normal) Range: 13-130 :22 FSH 4309 23.4 m[iU]/mL (Normal) Comments: . Age Male Female 5th day <0.2 - 4.6 <0.2 - 4.6 2 mo- 3 yrs. 0.2 - 2.7 1.4 - 9.2 4- 6 yrs. 0.2 - 2.7 0.4 - 6.6 7- 9 yrs. 0.2 - 2.7 0.4 - 5.0 10-11 yrs. 0.4 - 5.0 Not Estab 12-13 yrs. 0.4 - 6.6 Not Estab 14-15 yrs. 0.7 - 13.2 Not Estab >15 yrs. 1.4 - 18.1 See Below Female Follicular 2.5 - 10.2 Midcycle 3.4 - 33.4 Lut eal 1.5 - 9.1 <0.2 Postmenopausal 23.0 - 116.3 :22 LUTEIN HOR 4283 15.8 m[iU]/mL (Normal) Range: 0.0-76.3 Comments: Age Male Female 0- 1 yr. 0.5 - 1.9 0.0 - 0.5 2- 5 yrs. 0.0 - 0.5 0.0 - 0.5 6- 10 yrs. 0.0 - 0.5 0.0 - 0.5 11- 19 yrs. 0.5 - 5.3 0.5 - 9.0 20- 69 yrs. 1.5 - 9.3 0.0 - 76.3 70-100 yrs. 3.1 - 34.6 5.0 - 52.3 Female Follicular 1.9 - 12.5 Midcycle 8.7 - 76.3 Luteal 0.5 - 16.9 0.0 - 1.5 Postmenopausa l 15.9 - 54.0 Contraceptives 0.7 - 5.6 [id number] PROLACTIN 4465 10.3 ng/mL (Normal) Range: 2.8-29.2 Comments: Age Male Female 0- 1 mon. 3.7 - 81.2 0.3 - 95.0 1-12 mons. 0.3 - 28.9 0.2 - 29.9 1- 3 yrs. 2.3 - 13.2 1.0 - 17.0 4- 6 yrs. 0.8 - 16.9 1.6 - 13.1 7- 9 yrs. 1.9 - 11.6 0.3 - 12.9 10-12 yrs. 0.9 - 12.9 1.9 - 9.6 13-15 yrs. 1.6 - 16.6 3.0 - 14.4 Adult 2.1 - 17.7 2.8 - 29.2 Female: Non- 2.8 - 29.2 9.7 - 208.5 Postmenopausal 1.8 - 20.3Per formed At: [address] [id number] ROUTINE UA BILIRUBIN URINE SeeNote (Normal) Comments: Result: NEGATIVE CLARITY SeeNote (Normal) Comments: Result: SL CLOUDY COLOR STRAW (Normal) GLUCOSE, UR SeeNote (Normal) Comments: Result: NEGATIVE KETONE UR SeeNote mg/dL (Normal) Comments: Result: NEGATIVE LEUK ESTERASE SeeNote (Normal) Comments: Result: NEGATIVE NITRITE UR SeeNote (Normal) Comments: Result: NEGATIVE OCCULT BLOOD-UR SeeNote (Normal) Comments: Result: NEGATIVE pH UR 6.5 (Normal) Range: 5.0-8.0 PROT DIPSTX SeeNote (Normal) Comments: Result: NEGATIVE SP.GR. DIPSTX 1.010 (Normal) Range: 1.002-1.030 UROBILI 0.2 EU/dl (Normal) Range: 0.2 - 1.0 :22 TESTOSTER 4226 < 10 ng/dL (Abnormal) Range: 14-76 Comments: Verified by repeat analysis :22 TSH 0.88 {uIU/mL} (Normal) Range: 0.358-3.74 :26 BRAIN W/WO CONTRAST Radiology Report See Note (Normal) Comments: Exam Number: [id number] CLINICAL: Headaches, memory loss MRI BRAIN WITH AND WITHOUT CONTRAST COMPARISON: CT of the brain dated November 22, 2008 and MRI of the brain dated December 09, 2007 TECHNIQUE: S tandardized fat and water weighted pulse sequences were obtained in all 3 orthogonal planes, pre-and post contrast administration. 20 ml of Magnevist contrast material was administered intravenously for the contra st portion of the examination. FINDINGS: Normal cerebral hemispheres, without ventricular dilatation or sulcal prominence. Normal white matter tracts of the supratentorial brain. Normal basal ganglia, and thalami. Normal visualized carotid and vertebrobasilar arteries, without a demonstrated aneurysm or occlusion of the pilot point of Villagomez. There is no extra-axial fluid accumulation. There is normal en hancement of the dural sinuses and cortical veins. There is no enhancing intra- axial or extra-axial mass lesion or vascular malformation. Normal sella turcica, pituitary gland, infundibular stalk, optic chiasm and hypothalamus. Normal tectal plate and pineal gland without a mass lesion or pineal cyst. Normal suprasellar, interpeduncular, perimesencephalic and pre-pontine cisterns. Normal midbrain, po ns and medulla without a morphologic or signal alteration. Small area of increased CSF signal in the dosal right cerebellum, corresponding to the subtle hypodensity noted on CT. Appears generally stabl e from the prior MRI study, given differences between slice selection, and and not associated with evidence of gliosis. This seems to represent focal prominence of the primary cerebellar fissure, and m ay reflect very mild and focal, chronic underlying volume loss in this location. Otherwise normal vermis and cerebellar hemispheres. No tonsillar ectopia or a mass lesion. Normal bilateral temporal b ones, with normal visualized bilateral internal auditory canals (IACs), mastoid air cells, and petrous apices and cerebellopontine angle (CPA) cisterns. There is no enhancement of the bilateral VII and VIIIth cranial nerve complexes. Normal bilateral orbital contents. Normal visualized paranasal sinuses without demonstrated mucoperiosteal inflammatory disease. Normal central skull base, osseous calvar ial and soft tissue structures. IMPRESSION:Right cerebellar hypodensity on the recent CT corresponds to focal prominence of the primary fissure, and appears to demonstrate focal, chronic volume loss in the adjacent parenchyma of uncertain significance, but appears unchanged from the earlier MRI of December 09, 2007. Otherwise unremarkable MR of the brain. No evidence for an acute process. Reported By: PEDRO CRESPO M.D. :08 CBCD,SMEAR DIFF CELLS COUNTED 100 (Normal) EOS 3 % (Normal) Range: 0-5 HCT 36.9 % (Abnormal) Range: 37-47 HGB 12.6 g/dL (Normal) Range: 12.0-16.0 LYMPH 37 % (Normal) Range: 19-41 MCH 31.6 pg (Normal) Range: 27.0-32.0 MCHC 34.0 g/dL (Normal) Range: 32-36 MCV 92.9 fL (Normal) Range: 81-99 MONOCYTE 12 % (Abnormal) Range: 0-10 PLT 264 K/mm3 (Normal) Range: 150-450 PLT EST SeeNote (Normal) Comments: Result: ADEQUATE RBC 3.98 {M/mm3} (Abnormal) Range: 4.2-5.4 RDW 13.2 % (Normal) Range: 11.6-14.6 RED CELL MORPH SeeNote {NORMAL} (Normal) Comments: Result: NORM C+C SEGS 48 % (Normal) Range: 47-70 WBC 3.5 K/mm3 (Abnormal) Range: 4.4-11.0 :08 COMP METABOLIC A/G 1.2 {RATIO} (Normal) Range: 0.9-2.4 ALK P 56 U/L (Normal) Range: 50-136 ALT 31 U/L (Normal) Range: 30-65 AST 19 U/L (Normal) Range: 15-37 CA 8.4 mg/dL (Abnormal) Range: 8.5-10.1 CL 109 mmol/L (Abnormal) Range: 98-107 CO2 25.6 mmol/L (Normal) Range: 21.0-32.0 GAP 8 (Normal) Range: 5-15 GLOB 2.9 g/dL (Normal) Range: 2.7-4.2 K 3.8 mmol/L (Normal) Range: 3.5-5.1 NA 143 mmol/L (Normal) Range: 136-145 T BILI 0.30 mg/dL (Normal) Range: 0.00-1.00 ALB 3.4 g/dL (Normal) Range: 3.4-5.0 BUN 16 mg/dL (Normal) Range: 7-18 BUN/CRE 14.5 {RATIO} (Normal) Range: 10-20 CREAT,SERUM 1.1 mg/dL (Abnormal) Range: 0.6-1.0 EST GFR 54 mL/min (Abnormal) EST GFR - AA 65 mL/min (Normal) GLU 84 mg/dL (Normal) Range: 70-110 T PROT 6.3 g/dL (Abnormal) Range: 6.4-8.2 :08 RPR SeeNote (Normal) Comments: Result: NONREACTIVE :08 TSH 1.96 {uIU/mL} (Normal) Range: 0.34-4.82 :08 VIT D,25 05814 38.2 ng/mL (Normal) Range: 32.0-100.0 Comments: Recent studies consider the lower limit of 32.0 ng/mL to bradley threshold for optimal health.William VIVAR. J Nutr. 2004;135(2):317-22.Performed At: [facility] [place], [place] [id number] :08 VITAMIN B12 316 pg/mL (Normal) Range: 211-911 :52 BRAIN/HEAD WITHOUT CONTRAST Radiology Report See Note (Normal) Comments: Exam Number: [id number] CLINICAL:58 year old female with 40 year history of migraine headaches. Also history of memory loss. CT BRAIN WITHOUT AND WITH CONTRAST COMPARISON:None. TECHNIQUE:Tra nsaxial CT i maging of the brain was performed without and with administration of 50 cc of Isovue-300 intravenous contrast material. FINDINGS:The cortical sulci and ventricles are normal in size. Normal CT appearanc e of the brainstem. There is a small hypodensity in the posterior right cerebellum, without associated enhancement or edema (series 2 and series 4, images 11-12). The remainder of the cerebellum appea rs normal. There is no demonstrated acute or evolving ischemic infarction. There is no intra-axial or extra-axial hemorrhage or hematoma. There is no intra-axial or extra-axial mass lesion. No abnormal parenchymal or meningeal enhancement is demonstrated. Expected vascular structures at the base of the brain show no abnormality. There is an empty sella. No acute finding is noted in the orbits. Amaris l osseous calvarium, visualized facial bones, central skull base, and temporal bones without a demonstrated fracture or destructive process. Normal soft tissue structures of the calvarium. There are lior ateral postoperative changes in the sinonasal regions. Mild mucosal thickening is present in the maxillary and ethmoid sinuses. The middle ear cavities and mastoid air cells are clear. IMPRESSION: No supratentorial abnormality. Small hypodensity posteriorly in the right cerebellum, of uncertain etiology or age. MRI could be obtained for further evaluation. Reported By: SLOANE VARGAS M.D. [id number]-Otm-[id number]:49 KIDNEY (HP) Radiology Report See Note (Normal) Comments: Exam Number: [id number] CLINICAL:Renal insufficiency RENAL ULTRASOUND COMPARISON:None. FINDINGS: The left kidney is normal in size, measuring 11.0 x 4.7 x 5.1 cm. There are no cortical masses or cysts. There is no cortical atrophy. There is no hydronephrosis. There are no renal calculi. Survey of the urinary bladder is normal. There are no perinephric collections. There is no retroperitoneal lymphad enopathy. IMPRESSION:Normal renal ultrasound. No evidence for an obstructive uropathy. Reported By: PEDRO CRESPO M.D. :06 BMP BUN 22 mg/dL (Abnormal) Range: 7-18 BUN/CRE 16.9 {RATIO} (Normal) Range: 10-20 CA 9.0 mg/dL (Normal) Range: 8.5-10.1 CL 107 mmol/L (Normal) Range: 98-107 CO2 29.5 mmol/L (Normal) Range: 21.0-32.0 CREAT,SERUM 1.3 mg/dL (Abnormal) Range: 0.6-1.0 EST GFR 45 mL/min (Abnormal) EST GFR - AA 55 mL/min (Abnormal) GAP 5 (Normal) Range: 5-15 GLU 89 mg/dL (Normal) Range: 70-110 K 3.8 mmol/L (Normal) Range: 3.5-5.1 NA 141 mmol/L (Normal) Range: 136-145 [id number]-Exp-[id number]:25 CHEST, PA AND LATERAL (MT) Radiology Report See Note (Normal) Comments: Exam Number: [id number] CHEST PA AND LATERAL STATEMENTLeft sided rib pain and cough. PRIOR STUDIESNone. There are hypoventilatory changes present. There is crowding of thelung markings. There is mild e ventration of the medial righthemidiaphragm. The heart size is normal. The aorta is tortuous. There is mild dextro-curvature of the spine. The lungs appear clear. There is no pneumothorax or pleural effusion. Evaluation is notoptimal for exclusion of rib fracture. Consider correlation withdedicated rib films. IMPRESSION1. Hypoventilatory changes. No acute cardiopulmonary process. Nopneumothora x. 2. If there is a continued concern for rib fracture suggestcorrelation with dedicated radiographs. Reported By: ZAHIDA RAMESH M.D. :08 COMP METABOLIC A/G 1.3 {RATIO} (Normal) Range: 0.9-2.4 ALK P 57 U/L (Normal) Range: 50-136 ALT 26 U/L (Abnormal) Range: 30-65 AST 15 U/L (Normal) Range: 15-37 CA 8.9 mg/dL (Normal) Range: 8.5-10.1 CL 107 mmol/L (Normal) Range: 98-107 CO2 25.6 mmol/L (Normal) Range: 21.0-32.0 GAP 8 (Normal) Range: 5-15 GLOB 2.9 g/dL (Normal) Range: 2.7-4.2 K 3.4 mmol/L (Abnormal) Range: 3.5-5.1 NA 141 mmol/L (Normal) Range: 136-145 T BILI 0.31 mg/dL (Normal) Range: 0.00-1.00 ALB 3.8 g/dL (Normal) Range: 3.4-5.0 BUN 19 mg/dL (Abnormal) Range: 7-18 BUN/CRE 15.8 {RATIO} (Normal) Range: 10-20 CREAT,SERUM 1.2 mg/dL (Abnormal) Range: 0.6-1.0 EST GFR 49 mL/min (Abnormal) EST GFR - AA 59 mL/min (Abnormal) GLU 84 mg/dL (Normal) Range: 70-110 T PROT 6.7 g/dL (Normal) Range: 6.4-8.2 :08 LIPID CHOL 205 mg/dL (Abnormal) Comments: <200 mg/dL Desirable 200-240 mg/dL Borderline >240 mg/dL High Risk HDL 53 mg/dL (Normal) Comments: Reference Range HDL <40 mg/dL Low HDL Cholesterol HDL >or= 60 mg/dL High HDL Cholesterol LDL 116 mg/dL (Normal) Range: 0-130 TRIG 182 mg/dL (Normal) Comments: Serum Triglycerides Reference Interval Normal <150 mg/dL Borderline high 150 - 199 mg/dL High 200 - 499 mg/dL Very High > or = 500 mg/dL VLDL 36 mg/dL (Normal) Range: 5-40 :50 GLUP 45 mg/dL (Abnormal) Comments: GLU,2HPPG 75gm GLUC PPG GLUP from [id number]. Comments: Glucose result less than 50 mg/dL suggests HYPOGLYCEMIA. :42 CBCD,SMEAR DIFF BAND 1 % (Normal) Range: 0-5 CELLS COUNTED 100 (Normal) EOS 3 % (Normal) Range: 0-5 HCT 36.1 % (Abnormal) Range: 37-47 HGB 12.2 g/dL (Normal) Range: 12.0-16.0 LYMPH 37 % (Normal) Range: 19-41 MCH 30.7 pg (Normal) Range: 27.0-32.0 MCHC 33.9 g/dL (Normal) Range: 32-36 MCV 90.6 fL (Normal) Range: 81-99 MONOCYTE 2 % (Normal) Range: 0-10 PLT 279 K/mm3 (Normal) Range: 150-450 PLT EST SeeNote (Normal) Comments: Result: ADEQUATE RBC 3.98 {M/mm3} (Abnormal) Range: 4.2-5.4 RDW 12.6 % (Normal) Range: 11.6-14.6 RED CELL MORPH SeeNote {NORMAL} (Normal) Comments: Result: NORM C+C SEGS 57 % (Normal) Range: 47-70 WBC 4.4 K/mm3 (Normal) Range: 4.4-11.0 :42 COMP METABOLIC A/G 1.2 {RATIO} (Normal) Range: 0.9-2.4 ALB 3.7 g/dL (Normal) Range: 3.4-5.0 ALK P 61 U/L (Normal) Range: 50-136 ALT 33 U/L (Normal) Range: 30-65 AST 17 U/L (Normal) Range: 15-37 BUN 20 mg/dL (Abnormal) Range: 7-18 BUN/CRE 22.2 {RATIO} (Abnormal) Range: 10-20 CA 8.6 mg/dL (Normal) Range: 8.5-10.1 CL 105 mmol/L (Normal) Range: 98-107 CO2 26.8 mmol/L (Normal) Range: 21.0-32.0 CREAT,SERUM 0.9 mg/dL (Normal) Range: 0.6-1.0 GAP 6 (Normal) Range: 5-15 GLOB 3.0 g/dL (Normal) Range: 2.7-4.2 GLU 85 mg/dL (Normal) Range: 70-110 K 3.5 mmol/L (Normal) Range: 3.5-5.1 NA 138 mmol/L (Normal) Range: 136-145 T BILI 0.37 mg/dL (Normal) Range: 0.00-1.00 T PROT 6.7 g/dL (Normal) Range: 6.4-8.2 :42 EBVIgG/M [id number] EB-EA IgG 10842 143 AU/mL (Abnormal) Range: 0-99 Comments: Negative <100 Equivocal 100 - 120 Positive >120 EB-NAg [id number] 1871 AU/mL (Abnormal) Range: 0-99 Comments: Negative <100 Equivocal 100 - 120 Positive >120 EB-VCA [id number] 3769 AU/mL (Abnormal) Range: 0-99 Comments: Negative <100 Equivocal 100 - 120 Positive >120 EB-VCA [id number] 13 AU/mL (Normal) Range: 0-99 Comments: Negative <100 Equivocal 100 - 120 Positive >120 INTERPRETATION Comment (Normal) Comments: EBV Interpretation Chart: VCA-IgM EA-IgG VCA-IgG NA-ABS Susceptible - - - - Acute Infection + + or- + - Convalescent Phase +or- +or- + + Chronic or Reactivated - + + +or- Old Infe ction - - +or- + + Antibody Present - Antibody AbsentPerformed At: [facility] [address] [place], [place] [id number] :42 ROUTINE UA BILIRUBIN URINE SeeNote (Normal) Comments: Result: NEGATIVE CLARITY SeeNote (Normal) Comments: Result: SL CLOUDY COLOR YELLOW (Normal) GLUCOSE, UR SeeNote (Normal) Comments: Result: NEGATIVE KETONE UR SeeNote mg/dL (Normal) Comments: Result: NEGATIVE LEUK ESTERASE TRACE (Abnormal) NITRITE UR SeeNote (Normal) Comments: Result: NEGATIVE OCCULT BLOOD-UR SeeNote (Normal) Comments: Result: NEGATIVE pH UR 6.0 (Normal) Range: 5.0-8.0 PROT DIPSTX SeeNote (Normal) Comments: Result: NEGATIVE SP.GR. DIPSTX 1.025 (Normal) Range: 1.002-1.030 UROBILI 0.2 EU/dl (Normal) Range: 0.2 - 1.0 :42 TSH 2.50 {uIU/mL} (Normal) Range: 0.34-4.82 :42 VITAMIN B12 578 pg/mL (Normal) Range: 211-911 :03 COMP METABOLIC A/G 1.2 {RATIO} (Normal) Range: 0.9-2.4 ALB 3.6 g/dL (Normal) Range: 3.4-5.0 ALK P 69 U/L (Normal) Range: 50-136 ALT 34 U/L (Normal) Range: 30-65 AST 17 U/L (Normal) Range: 15-37 BUN 22 mg/dL (Abnormal) Range: 7-18 BUN/CRE 20.0 {RATIO} (Normal) Range: 10-20 CA 9.0 mg/dL (Normal) Range: 8.5-10.1 CL 108 mmol/L (Abnormal) Range: 98-107 CO2 28.7 mmol/L (Normal) Range: 21.0-32.0 CREAT,SERUM 1.1 mg/dL (Abnormal) Range: 0.6-1.0 GAP 5 (Normal) Range: 5-15 GLOB 2.9 g/dL (Normal) Range: 2.7-4.2 GLU 89 mg/dL (Normal) Range: 70-110 K 4.1 mmol/L (Normal) Range: 3.5-5.1 NA 142 mmol/L (Normal) Range: 136-145 T BILI 0.36 mg/dL (Normal) Range: 0.00-1.00 T PROT 6.5 g/dL (Normal) Range: 6.4-8.2 :03 LIPID CHOL 191 mg/dL (Normal) Comments: <200 mg/dL Desirable 200-240 mg/dL Borderline >240 mg/dL High Risk HDL 51 mg/dL (Normal) Comments: Reference Range HDL <40 mg/dL Low HDL Cholesterol HDL >or= 60 mg/dL High HDL Cholesterol LDL 102 mg/dL (Normal) Range: 0-130 TRIG 190 mg/dL (Normal) Comments: Serum Triglycerides Reference Interval Normal <150 mg/dL Borderline high 150 - 199 mg/dL High 200 - 499 mg/dL Very High > or = 500 mg/dL VLDL 38 mg/dL (Normal) Range: 5-40 :47 BILAT SCRN DIGITAL & CAD Radiology Report See Note (Normal) Comments: Exam Number: [id number] MAMMOGRAM, BILATERAL SCREENING DIGITAL AND CAD HISTORYRoutine screening. Full field digital images were obtained in mediolateral oblique andcraniocaudal projections. CAD images w ere reviewed. The current study is compared to the examinations of May. There is moderately dense fibroglandular parenchyma present. There isno skin thickening or retraction, architectural distortion, or clusterof suspicious microcalcifications. There is no dominant mass. Thereare a few scattered benign calcifications. If there is no suspiciouspalpable abnormality, followup mammogram in 1 year is recommended. IMPRESSIONThere is no radiographic evidence of malignancy identified. FINAL ASSESSMENTBenign findings. BIRADS Category 2. A letter regarding these results has been sent to the patient. This interpretation was rendered by a radiologist certified under theMammography Quality Standards Act of 1992 (MQSA). The mammograms werealso examined with computer-aided detection softw are ([employer], [id number] Reported By: SLOANE TRIVEDI M.D. :34 BIBIANA-D [id number] BIBIANA-DIRECT 51 AU/mL (Normal) Range: 0-99 Comments: Negative <100 Equivocal 100 - 120 Positive >120 :34 C-REACTIVE PROT 2.73 mg/L (Normal) Range: 0.0-6.0 Comments: Test performed using the Dimension C-Reactive ProteinExtended Range assay method. This assay meets the AHA/CDC 2003 recommendations fordetermining patients at high risk for cardiovasculardisease. Reference: High risk CRP >3.0 mg/L :34 CBCD,SMEAR DIFF BAND 2 % (Normal) Range: 0-5 CELLS COUNTED 100 (Normal) EOS 2 % (Normal) Range: 0-5 HCT 35.7 % (Abnormal) Range: 37-47 HGB 12.1 g/dL (Normal) Range: 12.0-16.0 LYMPH 44 % (Abnormal) Range: 19-41 MCH 30.5 pg (Normal) Range: 27.0-32.0 MCHC 33.9 g/dL (Normal) Range: 32-36 MCV 90.0 fL (Normal) Range: 81-99 MONOCYTE 3 % (Normal) Range: 0-10 PLT 252 K/mm3 (Normal) Range: 150-450 PLT EST SeeNote (Normal) Comments: Result: ADEQUATE RBC 3.97 {M/mm3} (Abnormal) Range: 4.2-5.4 RDW 13.0 % (Normal) Range: 11.6-14.6 RED CELL MORPH SeeNote {NORMAL} (Normal) Comments: Result: NORM C+C SEGS 49 % (Normal) Range: 47-70 WBC 3.9 K/mm3 (Abnormal) Range: 4.4-11.0 :34 COMP METABOLIC A/G 1.6 {RATIO} (Normal) Range: 0.9-2.4 ALB 4.1 g/dL (Normal) Range: 3.4-5.0 ALK P 63 U/L (Normal) Range: 50-136 ALT 31 [iU]/L (Normal) Range: 30-65 AST 16 U/L (Normal) Range: 15-37 BUN 24 mg/dL (Abnormal) Range: 7-18 BUN/CRE 24.0 {RATIO} (Abnormal) Range: 10-20 CA 9.8 mg/dL (Normal) Range: 8.5-10.1 CL 106 mmol/L (Normal) Range: 98-107 CO2 29.1 mmol/L (Normal) Range: 21.0-32.0 Comments: Please Note Reference Interval Change CREAT,SERUM 1.0 mg/dL (Normal) Range: 0.6-1.0 GAP 6 (Normal) Range: 5-15 GLOB 2.6 g/dL (Abnormal) Range: 2.7-4.2 Comments: Please Note Reference Interval Change GLU 94 mg/dL (Normal) Range: 70-110 K 4.3 mmol/L (Normal) Range: 3.5-5.1 NA 141 mmol/L (Normal) Range: 136-145 T BILI 0.34 mg/dL (Normal) Range: 0.00-1.00 T PROT 6.7 g/dL (Normal) Range: 6.4-8.2 :34 ESR SED RATE 6 mm/h (Normal) Range: 0-30 :34 RA LATEX 6502 7.0 {IU/mL} (Normal) Range: 0.0-13.9 Comments: Performed At: [address] [id number] :34 TSH 2.12 {uIU/mL} (Normal) Range: 0.34-4.82 :38 GLU 88 mg/dL (Normal) Range: 70-110 :38 HH HCT 37.9 % (Normal) Range: 37-47 HGB 13.2 g/dL (Normal) Range: 12.0-16.0 :38 LIPID CHOL 196 mg/dL (Normal) Comments: <200 mg/dL Desirable 200-240 mg/dL Borderline >240 mg/dL High Risk HDL 43 mg/dL (Normal) Comments: Reference Range HDL <40 mg/dL Low HDL Cholesterol HDL >or= 60 mg/dL High HDL Cholesterol LDL 115 mg/dL (Normal) Range: 0-130 TRIG 189 mg/dL (Normal) Comments: Serum Triglycerides Reference Interval Normal <150 mg/dL Borderline high 150 - 199 mg/dL High 200 - 499 mg/dL Very High > or = 500 mg/dL VLDL 38 mg/dL (Normal) Range: 40 :20 LIPID CHOL 183 mg/dL (Normal) Comments: <200 mg/dL Desirable 200-240 mg/dL Borderline >240 mg/dL High Risk HDL 49 mg/dL (Normal) Comments: Reference Range HDL <40 mg/dL Low HDL Cholesterol HDL >or= 60 mg/dL High HDL Cholesterol LDL 112 mg/dL (Normal) Range: 0-130 TRIG 109 mg/dL (Normal) Comments: Serum Triglycerides Reference Interval Normal <150 mg/dL Borderline high 150 - 199 mg/dL High 200 - 499 mg/dL Very High > or = 500 mg/dL VLDL 22 mg/dL (Normal) Range: 40 :20 LIVER ALB 3.5 g/dL (Normal) Range: 3.4-5.0 ALK P 60 U/L (Normal) Range: 50-136 ALT 33 [iU]/L (Normal) Range: 30-65 AST 16 U/L (Normal) Range: 15-37 D BILI 0.08 mg/dL (Normal) Range: 0.00-0.30 T BILI 0.44 mg/dL (Normal) Range: 0.00-1.00 T PROT 6.5 g/dL (Normal) Range: 6.4-8.2 32-Xro-334741:08 CULTURE, URINE URINE CULTURE See Note {CFU/mL} Comments: COLONY COUNT >100,000 ORGANISM 1: PRESUMPTIVE E. COLI PRESUMPTIVE E. COLI: REACTION AMOXICILLIN/CLAVULANIC ACID $$ <=8 S AMPICILLIN G (Normal) N $ 2 S CARBENICILLIN $$$ <=16 S CEFAZOLIN $ <=8 S CEFOXITIN $$ 4 S CEFTRIAXONE $$$ <=8 S CEFUROXIME $$ <=4 S CIPROFLOXACIN GN $$$ >=4 R GENTAMICIN GN $ 1 S LEVOFLOXACIN $$ >=8 R NALIDIXIC ACID $$$ >=32 R NITROFURANTOIN $ <=32 S OFLOXACIN $$$ >=8 R TETRACYCLINE $$ 2 S TICARCILLIN GN NOT PSEUDO $$$ <=16 S TRIMETHOPRIM/SULFAMETHOXAZ $$ <=10 S 83-Gsp-181600:08 ROUTINE UA BILIRUBIN URINE SeeNote (Normal) Comments: Result: NEGATIVE CLARITY SeeNote (Normal) Comments: Result: SL CLOUDY COLOR STRAW (Normal) GLUCOSE, UR SeeNote (Normal) Comments: Result: NEGATIVE KETONE UR SeeNote mg/dL (Normal) Comments: Result: NEGATIVE LEUK ESTERASE 1+ (Abnormal) NITRITE UR SeeNote (Abnormal) Comments: Result: POSITIVE OCCULT BLOOD-UR SeeNote (Normal) Comments: Result: NEGATIVE pH UR 7.0 (Normal) Range: 5.0-8.0 PROT DIPSTX SeeNote (Normal) Comments: Result: NEGATIVE SP.GR. DIPSTX 1.015 (Normal) Range: 1.002-1.030 UROBILI 0.2 EU/dl (Normal) Range: 0.2 - 1.0 68-Jum-481726:45 CULTURE, URINE URINE CULTURE See Note {CFU/mL} Comments: COLONY COUNT >100,000 ORGANISM 1: PRESUMPTIVE E. COLI PRESUMPTIVE E. COLI: REACTION AMOXICILLIN/CLAVULANIC ACID $$ <=8 S AMPICILLIN G (Normal) N $ 2 S CARBENICILLIN $$$ <=16 S CEFAZOLIN $ <=8 S CEFOXITIN $$ <=2 S CEFTRIAXONE $$$ <=8 S CEFUROXIME $$ <=4 S CIPROFLOXACIN GN $$$ <=0.5 S GENTAMICIN GN $ <=0.5 S LEVOFLOXACIN $$ <=1 S NALIDIXIC ACID $$$ <=16 S NITROFURANTOIN $ <=32 S OFLOXACIN $$$ <=1 S TETRACYCLINE $$ <=1 S TICARCILLIN GN NOT PSEUDO $$$ <=16 S TRIMETHOPRIM/SULFAMETHOXAZ $$ <=10 S 34-Npl-70629:30 LIPID CHOL 181 mg/dL (Normal) Comments: <200 mg/dL Desirable 200-240 mg/dL Borderline >240 mg/dL High Risk HDL 49 mg/dL (Normal) Comments: Reference Range HDL <40 mg/dL Low HDL Cholesterol HDL >or= 60 mg/dL High HDL Cholesterol LDL 111 mg/dL (Normal) Range: 0-130 TRIG 105 mg/dL (Normal) Comments: Serum Triglycerides Reference Interval Normal <150 mg/dL Borderline high 150 - 199 mg/dL High 200 - 499 mg/dL Very High > or = 500 mg/dL VLDL 21 mg/dL (Normal) Range: 5-40 :30 LIVER ALB 3.6 g/dL (Normal) Range: 3.4-5.0 ALK P 69 U/L (Normal) Range: 50-136 ALT 31 [iU]/L (Normal) Range: 30-65 AST 16 U/L (Normal) Range: 15-37 D BILI 0.15 mg/dL (Normal) Range: 0.00-0.30 T BILI 0.49 mg/dL (Normal) Range: 0.00-1.00 T PROT 6.6 g/dL (Normal) Range: 6.4-8.2 :55 CBCD,SMEAR DIFF BASOPHIL 1 % (Normal) Range: 0-1 CELLS COUNTED 100 (Normal) EOS 2 % (Normal) Range: 0-5 HCT 38.1 % (Normal) Range: 37-47 HGB 12.8 g/dL (Normal) Range: 12.0-16.0 LYMPH 56 % (Abnormal) Range: 19-41 MCH 30.6 pg (Normal) Range: 27.0-32.0 MCHC 33.7 g/dL (Normal) Range: 32-36 MCV 90.7 fL (Normal) Range: 81-99 MONOCYTE 3 % (Normal) Range: 0-10 PATH REV SeeNote (Normal) Comments: Result: Reviewed Reactive lymphocytes noted. Jesus Jeanih 07/30/06 PLT 370 K/mm3 (Normal) Range: 150-450 PLT EST SeeNote (Normal) Comments: Result: ADEQUATE RBC 4.20 {M/mm3} (Normal) Range: 4.2-5.4 RDW 12.0 % (Normal) Range: 11.6-14.6 RED CELL MORPH SeeNote {NORMAL} (Normal) Comments: Result: NORM C&C SEGS 38 % (Abnormal) Range: 47-70 WBC 3.7 K/mm3 (Abnormal) Range: 4.4-11.0 :55 COMP METABOLIC A/G 1.3 {RATIO} (Normal) Range: 0.9-2.4 ALB 3.5 g/dL (Normal) Range: 3.4-5.0 ALK P 83 U/L (Normal) Range: 50-136 ALT 39 [iU]/L (Normal) Range: 30-65 AST 19 U/L (Normal) Range: 15-37 BUN 18 mg/dL (Normal) Range: 7-18 BUN/CRE 20.0 {RATIO} (Normal) Range: 10-20 CA 8.5 mg/dL (Normal) Range: 8.5-10.1 CL 104 mmol/L (Normal) Range: 98-107 CO2 31.1 mmol/L (Abnormal) Range: 22.0-29.0 CREAT,SERUM 0.9 mg/dL (Normal) Range: 0.6-1.0 GAP 4 (Abnormal) Range: 5-15 GLOB 2.8 g/dL (Normal) Range: 2.3-3.5 GLU 88 mg/dL (Normal) Range: 70-110 K 3.8 mmol/L (Normal) Range: 3.5-5.1 NA 139 mmol/L (Normal) Range: 136-145 T BILI 0.41 mg/dL (Normal) Range: 0.00-1.00 T PROT 6.3 g/dL (Abnormal) Range: 6.4-8.2 :55 COMPLETE UA BACTERIA 0 SEEN {/hpf} (Normal) BILIRUBIN URINE SeeNote (Normal) Comments: Result: NEGATIVE CLARITY CLEAR (Normal) COLOR YELLOW (Normal) GLUCOSE, UR SeeNote (Normal) Comments: Result: NEGATIVE KETONE UR SeeNote mg/dL (Normal) Comments: Result: NEGATIVE LEUK ESTERASE 1+ (Abnormal) MUCUS, URINE 0 SEEN {/hpf} (Normal) NITRITE UR SeeNote (Normal) Comments: Result: NEGATIVE OCCULT BLOOD-UR SeeNote (Normal) Comments: Result: NEGATIVE pH UR 7.5 (Normal) Range: 5.0-8.0 PROT DIPSTX SeeNote (Normal) Comments: Result: NEGATIVE RBC-UA 0 SEEN {/hpf} (Normal) Range: 0-5 SP.GR. DIPSTX 1.015 (Normal) Range: 1.002-1.030 SQUAM EPI SeeNote {/hpf} (Normal) Range: 5-10 Comments: Result: 5-10 SEEN UROBILI 0.2 EU/dl (Normal) Range: 0.2 - 1.0 WBC 0 SEEN {/hpf} (Normal) Range: 0-5 8-Dave-88177:55 PFLIP CHOL 170 mg/dL (Normal) Comments: <200 mg/dL Desirable 200-240 mg/dL Borderline >240 mg/dL High Risk HDL 40 mg/dL (Normal) Comments: Reference Range HDL <40 mg/dL Low HDL Cholesterol HDL >or= 60 mg/dL High HDL Cholesterol LDL 94 mg/dL (Normal) Range: 0-130 TRIG 181 mg/dL (Normal) Comments: Serum Triglycerides Reference Interval Normal <150 mg/dL Borderline high 150 - 199 mg/dL High 200 - 499 mg/dL Very High > or = 500 mg/dL VLDL 36 mg/dL (Normal) Range: 5-40 29-Jul-20068:55 TSH 2.71 {uIU/mL} (Normal) Range: 0.34-4.82 Plan of Care Name Dates Details Instructions Fatigue, unspecified type : *fatigue education Indication: Fatigue, unspecified type Nonsmoker : Eprescribed prescriptions (G8553) Indication: Nonsmoker Nonsmoker : Eprescribed prescriptions (G8553) Indication: Nonsmoker Cough : Follow up if no improvement or if symptoms worsen Indication: Cough Upper respiratory infection, viral : Common Cold *: upper respiratory infection Indication: Upper respiratory infection, viral Nonsmoker : Eprescribed prescriptions (G8553) Indication: Nonsmoker Annual Medicare Phyiscal WITHOUT abnormal findings (Renamed from Encounter for general adult medical examination without abnormal findings) : fall reduction handout Indication: Annual Medicare Phyiscal WITHOUT abnormal findings (Renamed from Encounter for general adult medical examination without abnormal findings) Annual Medicare Phyiscal WITHOUT abnormal findings (Renamed from Encounter for general adult medical examination without abnormal findings) : elderly packet given Indication: Annual Medicare Phyiscal WITHOUT abnormal findings (Renamed from Encounter for general adult medical examination without abnormal findings) Annual Medicare Phyiscal WITHOUT abnormal findings (Renamed from Encounter for general adult medical examination without abnormal findings) : Self breast exam Indication: Annual Medicare Phyiscal WITHOUT abnormal findings (Renamed from Encounter for general adult medical examination without abnormal findings) Encounter for screening for malignant neoplasm of colon (Renamed from Special screening for malignant neoplasms, colon) : *Colon Cancer Screening Indication: Encounter for screening for malignant neoplasm of colon (Renamed from Special screening for malignant neoplasms, colon) Fatigue : *fatigue education Indication: Fatigue Encounter for screening for malignant neoplasm of colon (Renamed from Special screening for malignant neoplasms, colon) : *Colon Cancer Screening Indication: Encounter for screening for malignant neoplasm of colon (Renamed from Special screening for malignant neoplasms, colon) Lupus : Reviewed Lab Indication: Lupus Mixed hyperlipidemia : Reviewed Lab Indication: Mixed hyperlipidemia Annual Medicare Phyiscal WITHOUT abnormal findings (Renamed from Encounter for general adult medical examination without abnormal findings) : Eprescribed prescriptions (G8553) Indication: Annual Medicare Phyiscal WITHOUT abnormal findings (Renamed from Encounter for general adult medical examination without abnormal findings) Mixed hyperlipidemia : Follow up in 6 months- gen med Indication: Mixed hyperlipidemia GERD (gastroesophageal reflux disease) : GERD Education Indication: GERD (gastroesophageal reflux disease) Mixed hyperlipidemia : Cholesterol mgmt Indication: Mixed hyperlipidemia Hemorrhoids, unspecified hemorrhoid type : Eprescribed prescriptions (G8553) Indication: Hemorrhoids, unspecified hemorrhoid type GERD (gastroesophageal reflux disease) : Heartburn *: gerd Indication: GERD (gastroesophageal reflux disease) GERD (gastroesophageal reflux disease) : Eprescribed prescriptions (G8553) Indication: GERD (gastroesophageal reflux disease) Lupus : Follow up if no improvement or if symptoms worsen Indication: Lupus Lupus : Reviewed Lab Indication: Lupus Fatigue : Reviewed Lab Indication: Fatigue Proteinuria : Reviewed Lab Indication: Proteinuria Lupus : Follow up in 10 days Indication: Lupus Vitamin D deficiency, unspecified : Eprescribed prescriptions (G8553) Indication: Vitamin D deficiency, unspecified Vitamin D deficiency, unspecified : Osteoporosis in Women *: vitamin d Indication: Vitamin D deficiency, unspecified Vitamin D deficiency, unspecified : Eprescribed prescriptions (G8553) Indication: Vitamin D deficiency, unspecified Pre-operative examination : Eprescribed prescriptions (G8553) Indication: Pre-operative examination Mixed hyperlipidemia : Eprescribed prescriptions (G8553) Indication: Mixed hyperlipidemia Osteoporosis, senile : Eprescribed prescriptions (G8553) Indication: Osteoporosis, senile Mixed hyperlipidemia : Eprescribed prescriptions (G8553) Indication: Mixed hyperlipidemia Dysuria (Renamed from Difficult or painful urination) : follow up for recheck urine 1 week after complete antibiotic Indication: Dysuria (Renamed from Difficult or painful urination) Dysuria (Renamed from Difficult or painful urination) : *UTI treatment Indication: Dysuria (Renamed from Difficult or painful urination) Dysuria (Renamed from Difficult or painful urination) : Water in diet, brief version Indication: Dysuria (Renamed from Difficult or painful urination) Need for prophylactic vaccination and inoculation against influenza : Flu (Influenza) *: flu shot Indication: Need for prophylactic vaccination and inoculation against influenza LOW BACK PAIN (Renamed from LBP (low back pain)) : follow up for recheck urine 1 week after complete antibiotic Indication: LOW BACK PAIN (Renamed from LBP (low back pain)) LOW BACK PAIN (Renamed from LBP (low back pain)) : Water in diet, brief version Indication: LOW BACK PAIN (Renamed from LBP (low back pain)) LOW BACK PAIN (Renamed from LBP (low back pain)) : *UTI treatment Indication: LOW BACK PAIN (Renamed from LBP (low back pain)) Other specified viral infection, in conditions classified elsewhere and of unspecified site : Follow up if no improvement or if symptoms worsen Indication: Other specified viral infection, in conditions classified elsewhere and of unspecified site Other specified viral infection, in conditions classified elsewhere and of unspecified site : *URI Symptoms Indication: Other specified viral infection, in conditions classified elsewhere and of unspecified site Other specified viral infection, in conditions classified elsewhere and of unspecified site : *URI Treatment Indication: Other specified viral infection, in conditions classified elsewhere and of unspecified site Pharyngitis, acute : Sore throat: diagnosis and treatment Indication: Pharyngitis, acute Anxiety : Anxiety: emotional health Indication: Anxiety Anxiety : Anxiety: anxiety Indication: Anxiety Osteopenia : Osteoporosis in Women *: bone density Indication: Osteopenia Irritable bowel syndrome : Irritable Bowel Syndrome (IBS): Brief Version *: gastrointestinal Indication: Irritable bowel syndrome Pain in joint involving other specified sites : Follow up in 1 week Indication: Pain in joint involving other specified sites Other specified viral infection, in conditions classified elsewhere and of unspecified site : *URI Symptoms Indication: Other specified viral infection, in conditions classified elsewhere and of unspecified site Other specified viral infection, in conditions classified elsewhere and of unspecified site : *URI Treatment Indication: Other specified viral infection, in conditions classified elsewhere and of unspecified site Mixed hyperlipidemia : Diet and Exercise Indication: Mixed hyperlipidemia Dysuria : Follow up for recheck urine 1 week after complete antibiotic Indication: Dysuria Bronchitis, acute : Antibiotic Usage Education - Female Indication: Bronchitis, acute Laryngitis : Laryngitis Education Indication: Laryngitis Bronchitis : *URI Treatment Indication: Bronchitis Bronchitis : Antibiotic Usage Education - Female Indication: Bronchitis Bronchitis : URI Symptoms Indication: Bronchitis Anxiety : FOLLOW UP IN 4 WEEKS Indication: Anxiety Hypoglycemia : Diet and Exercise Indication: Hypoglycemia Depressive disorder : FOLLOW UP IN 4 MONTHS Indication: Depressive disorder Migraine : FOLLOW UP IN 3 MONTHS Indication: Migraine Planned Observations C-REACT PROT HIGH SENS(hsCRP) (97607)Indication: Pain in unspecified joint On: :28 Request Sedimentation Rate-ESR (99200)Indication: Pain in unspecified joint On: :27 Request Metabolic Panel, Comprehensive (85151)Indication: Pain in unspecified joint On: :27 Request CBC (Auto) (12115)Indication: Pain in unspecified joint On: :27 Request FECAL OCCULT- Tubes sent home (07579)Indication: Encounter for screening for malignant neoplasm of colon (Renamed from Special screening for malignant neoplasms, colon) On: 7-Cyf-888683:14 Request CBC WITH MANUAL DIFF (84131)Indication: Abnormal WBC count On: 36-Zmr-238060:12 Request METABOLIC PANEL, COMPREHENSIVE (37140)Indication: Mixed hyperlipidemia On: 59-Xsn-498409:15 Request CBC W/AUTO DIFF WBC (23081)Indication: Mixed hyperlipidemia On: 46-Izs-008266:15 Request LIPID PANEL (44174)Indication: Mixed hyperlipidemia On: 00-Mkz-651882:15 Request TSH (01883)Indication: Anxiety On: 85-Vus-332156:15 Request CALCIFIDIOL (45789) VIT D 25Indication: Vitamin D deficiency, unspecified On: 46-Hti-748733:15 Request CALCIFEDIOL (60274)Indication: Vitamin D deficiency, unspecified On: 20-Sep-20159:12 Request EBV Panel (87784)Indication: Fatigue On: 74-Xda-881379:51 Request SPEP (24307)Indication: Abnormal CBC On: 79-Ayr-963988:43 Request UPEP (28959)Indication: Abnormal CBC On: 38-Lcm-887898:30 Request serum free light chains (58562)Indication: Abnormal CBC On: :29 Request urine immunofixation (30384)Indication: Abnormal CBC On: :29 Request serum immunofixation (89343)Indication: Abnormal CBC On: :29 Request LIPID PANEL (74381)Indication: Mixed hyperlipidemia On: 30-Pty-329236:46 Request CALCIFIDIOL (21151) VIT D 25Indication: Vitamin D deficiency, unspecified On: 07-Sxl-419670:41 Request METABOLIC PANEL, COMPREHENSIVE (74997)Indication: Mixed hyperlipidemia On: 05-Jwn-330584:12 Request LIPID PANEL (00230)Indication: Mixed hyperlipidemia On: :12 Request CBC WITH MANUAL DIFF (76407)Indication: postmenopausal without estrogen On: :02 Request METABOLIC PANEL, COMPREHENSIVE (99888)Indication: postmenopausal without estrogen On: :02 Request CALCIFIDIOL (18263) VIT D 25Indication: Vitamin D deficiency, unspecified On: :01 Request CALCIFEDIOL (72096)Indication: Vitamin D deficiency, unspecified On: 00-Ksz-418059:26 Request CBC WITH MANUAL DIFF (28687)Indication: Mixed hyperlipidemia On: :26 Request Metabolic Panel, Comprehensive (23119)Indication: Mixed hyperlipidemia On: 75-Lsh-208900:26 Request Lipid Panel (61128)Indication: Mixed hyperlipidemia On: :26 Request METABOLIC PANEL, COMPREHENSIVE (41042)Indication: Mixed hyperlipidemia On: :47 Request LIPID PANEL (95186)Indication: Mixed hyperlipidemia On: :47 Request CALCIFIDIOL (36936) VIT D 25Indication: Vitamin D deficiency, unspecified On: :47 Request EBV Panel (96030)Indication: Hepatitis On: :38 Request CMV IGM ANTBDY (98466)Indication: Hepatitis On: :38 Request CMV ANTIBODY (99036)Indication: Hepatitis On: 41-Oed-82325:38 Request CALCIFEDIOL (60336)Indication: Mixed hyperlipidemia On: :56 Request CBC with manual diff ([id number])Indication: Mixed hyperlipidemia On: :56 Request Metabolic Panel, Comprehensive ([id number])Indication: Mixed hyperlipidemia On: :56 Request TSH (THYROID STIMULATING HORMONE) (38939)Indication: Mixed hyperlipidemia On: 13-Hka-353232:56 Request LIPID PANEL (85640)Indication: Mixed hyperlipidemia On: :55 Request HEPATIC FUNCTION PANEL (31196)Indication: Mixed hyperlipidemia On: :55 Request HEPATIC FUNCTION PANEL (57467)Indication: Unspecified Diagnosis On: 07-Cne-340431:25 Request Rapid Strep Test, Office ([id number])Indication: Pharyngitis, acute On: 97-Cak-912791:05 Request Metabolic Panel, Comprehensive (08839)Indication: Epigastric Pain (Renamed from Abdominal pain, epigastric) On: 22-Hsn-900759:24 Request Comments: labs stat. Lipase (71848)Indication: Epigastric Pain (Renamed from Abdominal pain, epigastric) On: :24 Request Amylase (80018)Indication: Epigastric Pain (Renamed from Abdominal pain, epigastric) On: :24 Request CBC, Platelets & Auto Diff (52789)Indication: Epigastric Pain (Renamed from Abdominal pain, epigastric) On: 40-Qmi-478952:24 Request URINE MICHI CULTURE-IDENTIFICATN (14067)Indication: Hematuria (Renamed from Blood in the urine) On: 83-Fep-620401:23 Request ASM (ANTI SMOOTH MUSCLE ANTIBODY) ([id number])Indication: Abnormal finding of blood chemistry, unspecified On: 90-Qjh-466156:26 Request CERULOPLASMIN (66716)Indication: Abnormal finding of blood chemistry, unspecified On: 34-Vhf-217407:26 Request FERRITIN (73137)Indication: Abnormal finding of blood chemistry, unspecified On: 83-Kut-815060:26 Request HEPATIC FUNCTION PANEL (16414)Indication: Mixed hyperlipidemia On: 08-Seq-929659:47 Request HEPATIC FUNCTION PANEL (29313)Indication: Abnormal finding of blood chemistry, unspecified On: 88-Ows-844439:17 Request Comments: 1 week HEPATIC FUNCTION PANEL ([id number])Indication: Migraine On: :26 Request TSH ([id number])Indication: Migraine On: 71-Jpf-006180:26 Request HEPATITIS PANEL (87784)Indication: Abnormal finding of blood chemistry, unspecified On: :25 Request EBV Panel (15025)Indication: Abnormal finding of blood chemistry, unspecified On: 10-Fjm-129282:24 Request Vitamin D Hydroxy (95037)Indication: Vitamin D deficiency, unspecified On: :42 Request CBC WITH MANUAL DIFF (30302)Indication: Irritable bowel syndrome On: :42 Request METABOLIC PANEL, COMPREHENSIVE (84945)Indication: Irritable bowel syndrome On: :42 Request LIPID PANEL (42455)Indication: Mixed hyperlipidemia On: :42 Request CALCIFEDIOL (35506)Indication: Vitamin D deficiency, unspecified On: :06 Request CBC with manual diff ([id number])Indication: Mixed hyperlipidemia On: : Request Lipid Panel (14366)Indication: Mixed hyperlipidemia On: : Request Metabolic Panel, Comprehensive ([id number])Indication: Mixed hyperlipidemia On: :06 Request Vitamin D Hydroxy (48436)Indication: Vitamin D deficiency, unspecified On: :17 Request CBC WITH MANUAL DIFF ([id number])Indication: Lung nodule On: :17 Request METABOLIC PANEL, COMPREHENSIVE (28857)Indication: Irritable bowel syndrome On: :17 Request LIPID PANEL (06293)Indication: Mixed hyperlipidemia On: 59-Qle-990390:07 Request C-REACTIVE PROTEIN (22981)Indication: Chest pain On: :20 Request SED RATE ERYTHROCYTE (68630)Indication: Chest pain On: :20 Request METABOLIC PANEL, COMPREHENSIVE (31459)Indication: Chest pain On: :20 Request CBC WITH MANUAL DIFF ([id number])Indication: Chest pain On: :20 Request D-Dimer (87395)Indication: Chest pain On: :20 Request Comments: stat METABOLIC PANEL, COMPREHENSIVE (49367)Indication: Osteopenia On: 21-Stl-147580:00 Request TSH ([id number])Indication: Depressive disorder On: 99-Rjn-559872:58 Request LIPID PANEL (41371)Indication: Mixed hyperlipidemia On: 29-Gux-696993:57 Request Vitamin D Hydroxy (12749)Indication: Vitamin D deficiency, unspecified On: 01-Sbe-409166:57 Request Metabolic Panel, Comprehensive ([id number])Indication: Hypopotassemia On: 93-Mke-979258:58 Request CALCIFEDIOL (01518)Indication: Vitamin D deficiency, unspecified On: 16-Aeh-380692:58 Request Lipid Panel (24381)Indication: Mixed hyperlipidemia On: 98-Lon-117716:57 Request METABOLIC PANEL, COMPREHENSIVE (26011)Indication: Migraine On: :53 Request LIPID PANEL (68122)Indication: Mixed hyperlipidemia On: 18-Fku-711227:53 Request Vitamin D Hydroxy (43561)Indication: Vitamin D deficiency, unspecified On: 55-Pxk-460335:53 Request Vitamin D Hydroxy (05253)Indication: Vitamin D deficiency, unspecified On: 00-Pmf-323314:49 Request METABOLIC PANEL, COMPREHENSIVE (05512)Indication: Irritable bowel syndrome On: 73-Xfy-074410:48 Request LIPID PANEL ([id number])Indication: Mixed hyperlipidemia On: 94-Auf-439102:48 Request METABOLIC PANEL, COMPREHENSIVE (47891)Indication: Hypopotassemia On: 32-Abg-666289:56 Request LIPID PANEL (65478)Indication: Mixed hyperlipidemia On: 27-Opt-642567:56 Request Vitamin D Hydroxy (80076)Indication: Vitamin D deficiency, unspecified On: 38-Zaf-597251:56 Request HEPATIC FUNCTION PANEL ([id number])Indication: Mixed hyperlipidemia On: 55-Usy-008988:07 Request LIPID PANEL (44396)Indication: Mixed hyperlipidemia On: 93-Jxy-956340:07 Request URINE MICHI CULTURE-IDENTIFICATN ([id number])Indication: Dysuria On: 2-Weo-492680:40 Request URINALYSIS W/O MICRO (73053)Indication: Other signs and symptoms in breast On: 65-Wud-706370:31 Request METABOLIC PANEL, COMPREHENSIVE (39909)Indication: Other signs and symptoms in breast On: 85-Jhh-808574:31 Request TSH (93748)Indication: Other signs and symptoms in breast On: 40-Bib-769971:31 Request Vitamin D Hydroxy (04559) On: :30 Request CBC WITH MANUAL DIFF ([id number]) On: :30 Request METABOLIC PANEL, COMPREHENSIVE (37457) On: 6-Ckg-504985:30 Request VITAMIN B-12 (CYANOCOBALAMIN) (87986) On: 8-Ozp-822979:30 Request TSH (82082) On: :30 Request Metabolic Panel, Basic (20718) On: 58-Sky-202246:21 Request HEPATIC FUNCTION PANEL (55699)Indication: Mixed hyperlipidemia On: 02-Ynr-674716:21 Request LIPID PANEL (34870)Indication: Mixed hyperlipidemia On: 15-Mkb-461512:21 Request METABOLIC PANEL, COMPREHENSIVE (86954)Indication: Hypoglycemia On: 44-Nfr-984004:51 Request LIPID PANEL (58407)Indication: Low HDL (under 40) On: 55-Mut-962380:45 Request Glucose, PP/2 Hour (48857)Indication: Fatigue On: 4-Irx-541481:03 Request VITAMIN B-12 (CYANOCOBALAMIN) (42081)Indication: Fatigue On: 6-Lri-707357:03 Request URINALYSIS W/O MICRO (56104)Indication: Fatigue On: 5-Aco-879341:03 Request TSH ([id number])Indication: Fatigue On: 8-Ydb-413606:03 Request CBC WITH MANUAL DIFF ([id number])Indication: Fatigue On: 7-Wyk-014556:03 Request METABOLIC PANEL, COMPREHENSIVE (06259)Indication: Fatigue On: 5-Rcn-955352:03 Request BIBIANA (ANTINUCLEAR ANTIBODY) (47652)Indication: Pain in unspecified joint On: 0-Dno-978226:28 Request C-REACTIVE PROTEIN (28404)Indication: Pain in unspecified joint On: 2-Qeg-335876:28 Request CBC WITH MANUAL DIFF (62850)Indication: Pain in unspecified joint On: 9-Pqe-268271:28 Request METABOLIC PANEL, COMPREHENSIVE (01333)Indication: Pain in unspecified joint On: 1-Sad-126991:28 Request RHEUMATOID FACTOR-QUANT (77949)Indication: Pain in unspecified joint On: 1-Weu-097780:28 Request SED RATE ERYTHROCYTE ([id number])Indication: Pain in unspecified joint On: 3-Iwt-742408:28 Request TSH ([id number])Indication: Pain in unspecified joint On: 6-Sme-954830:28 Request METABOLIC PANEL, COMPREHENSIVE (20271)Indication: Low HDL (under 40) On: :26 Request LIPID PANEL (25772)Indication: Low HDL (under 40) On: : Request LIPID PANEL (69339)Indication: Low HDL (under 40) On: :41 Request HEPATIC FUNCTION PANEL (48897)Indication: Low HDL (under 40) On: : Request Comments: 4 mos LIPID PANEL ([id number])Indication: Low HDL (under 40) On: : Request Comments: 3 mos HEPATIC FUNCTION PANEL (47602)Indication: Low HDL (under 40) On: : Request Comments: 3 mos Planned Procedures Flu Vaccine (Quadrivalent) On: 27-May-2018 Intent 36571Mo: Rylee Bales DO Comments: Lot #[id number]-L dltd, IMDose prefilled syringegiven by: Nohemy reviewed and ABN signed Rylee Bales DO Wax CurettesBy: Nii ABREU, On: 12-Feb-2018 Intent Rylee Nelson DO Ear Irrigation (75988)By: On: 12-Feb-2018 Intent Rylee Bales DO, DO, Comments: small amount of yellow was irrigated out of right ear, patient tolerated without difficulty ear wax currette used to remove remainder of wax Rylee X-RAY OF SHOULDER, TWO VIEWS On: 12-Feb-2018 Intent (24066)By: Rylee Bales DO, DO, Kathleen ELECTROCARDIOGRAM, COMPLETE On: 12-Feb-2018 Intent (ECG) (94253)By: Rylee Bales DO, DO, Kathleen Ultrasound - ThyroidBy: Nii On: 30-Jan-2018 Intent Rylee ABREU DO, Kathleen Wax CurettesBy: Dasia Oliver On: 12-Sep-2017 Intent Ear Irrigation ([id number])By: On: 12-Sep-2017 Intent Dasia Oliver X-RAY OF HAND, THREE VIEWS On: 16-Aug-2017 Intent (15947)By: Nii DO, Rylee Nii DO, Rylee Radiology - Abdomen SeriesBy: On: 02-Jul-2017 Intent Nii DO, Rylee Nii DO, Comments: FLAT PLATE Rylee ACUTE ABDOMINAL SERIES On: 27-Jun-2017 Intent (36618)By: Nii DO, Rylee Nii DO, Rylee Flu Vaccine (Quadrivalent) On: 28-May-2017 Intent 44202Er: Nii DO, Rylee Comments: lot: [id number]: 01/06/18ite/route: L freddy, IMamt: 0.5mlVIS and ABN signed when applicableChelsea, [employer] Nii DO, Rylee SCREENING DIGITAL On: 28-May-2017 Intent TOMOSYNTHESIS OF BREAST (99931)By: Rylee Bales DO Nii DO, Rylee THYROID ULTRASOUND ([id number])By: On: 02-Jan-2017 Intent Nii DO, Rylee Nii DO, Rylee Doppler Ultrasound OtherBy: On: 15-Aug-2016 Intent Nii DO, Rylee Nii DO, Comments: left lower extremity Rylee PNEUM VAC ADLT/IMUMNOSPR, On: 07-May-2016 Intent SBC/INTRM (86083)By: Nii Comments: Lot:[id number]:11/24/17Dose:0.5mgRoute:imSite:r arm Given By:DORIS signed DO, Rylee Nii DO, Rylee DEXA SCAN AXIAL SKELETON On: 25-Apr-2016 Intent (52848)By: Nii DO, Rylee Nii DO, Rylee MAMMOGRAM, SCREENING, BOTH On: 25-Apr-2016 Intent BREAST (47726)By: Nii DO, Rylee Nii DO, Rylee Flu Vaccine (Quadrivalent) On: 25-Apr-2016 Intent 45135Nr: Hung Santos Comments: FLUlot: [id number]:01/05site:Lt deltoidroute:IMdose:.5mlDEMICK, MA DEXA SCAN AXIAL SKELETON On: 01-Mar-2016 Intent (99740)By: Nii DO, Rylee Nii DO, Rylee Radiology - ChestBy: Ciesa On: 13-Jun-2015 Intent 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, 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 Flu Vaccine (Quadrivalent) On: 27-Apr-2015 Intent 51741Rz: Manda Higginbotham MD Comments: Lot:[id number]:01/19/16Dose:0.5mLRoute:IMSite:L DltdGiven By:DORIS chi MAMMOGRAM, SCREENING, BOTH On: 15-Mar-2015 Intent BREAST (34829)By: Manda Higginbotham MD ELECTROCARDIOGRAM, COMPLETE On: 30-Dec-2014 Intent (ECG) (86847)By: Nii ABREU, Comments: nsr no acute chg Rylee Bales DO Rylee Prevnar 13 (57255)By: Anahy On: 03-Aug-2014 Intent Manda KRISHNAN SPECIMEN HANDLING/TRANSPORT On: 14-Jun-2014 Intent (77734)By: Marlen Rosenbaum CNP IMMUNIZ ADMNIN, 1 VAC, On: 03-May-2014 Intent SNGL/COMBO (57998)By: Joey, Nurse FLU VAC, SPLIT, >3 YEARS, On: 03-May-2014 Intent INTRAMUSC (92612)By: Anahy Comments: Lot:[id number]:01/18/15Dose:0.5mLRoute:IMSite:L DltdGiven By:Manda Crum MD MAMMOGRAM, SCREENING, BOTH On: 09-Feb-2014 Intent BREAST (79525)By: Anahy KRISHNAN, Comments: due 07-04 Manda Torres DEXA SCAN AXIAL SKELETON On: 09-Feb-2014 Intent (48660)By: Manda Higginbotham MD Comments: due 07-04 Eprescribed prescriptions On: 19-Nov-2013 Intent (G8553)By: Rylee Bales DO, DO, Kathleen Eprescribed prescriptions On: 02-Sep-2013 Intent (G8553)By: Marlen Rosenbaum CNP FLU VAC, SPLIT, >3 YEARS, On: 26-May-2013 Intent INTRAMUSC (79005)By: Anahy Comments: Lot:[id number]:Dose:0.5mLRoute:IMSite:L DltdGiven By:Manda Crum MD IMMUNIZ ADMNIN, 1 VAC, On: 26-May-2013 Intent SNGL/COMBO (27538)By: Francesca Crystal MAMMOGRAM, SCREENING, BOTH On: 14-May-2013 Intent BREASTS (59812)By: Anahy KRISHNAN, Manda Torres Eprescribed prescriptions On: 30-Dec-2012 Intent (G8553)By: Alaina Patricia LPN L Ultrasound - LiverBy: Fast DO, On: 10-Dec-[address] - ChestBy: Fast DO, Iwona A On: 09-Dec-2012 Intent Comments: december Eprescribed prescriptions On: 09-Dec-2012 Intent (G8553)By: Zabrina Farmer Eprescribed prescriptions On: 01-Aug-2012 Intent (G8553)By: Zabrina Farmer EKG (07081)By: Darian, On: 10-Jun-2012 Intent Zabrina Comments: ekg showed normal sinus rhythym, normal axis, no acute st/t wave changes Eprescribed prescriptions On: 10-Jun-2012 Intent (G8553)By: Fast DO, Iwona A DXA, BONE DENSITY, AXIAL On: 10-Jun-2012 Intent SKELETON (04248)By: Fast DO, Iwona A CT - ChestBy: Fast DO, Iwona A On: 10-Jun-2012 Intent Eprescribed prescriptions On: 10-Jun-2012 Intent (G8553)By: Zabrina Farmer Breast Screening - On: 02-Jun-2012 Intent BilateralBy: Fast DO, Iwona A TDAP VACCINE >7 IM (15056)By: On: 04-Dec-2011 Intent Zabrina Farmer Comments: lot [id number] 06/02, L arm IM, perfileld Alaina CT - ChestBy: Fast DO, Iwona A On: 04-Dec-2011 Intent FLU VAC, SPLIT, >3 YEARS, On: 29-May-2011 Intent INTRAMUSC (76818)By: Darian, Comments: Lot: [id number]: 01/19/12Site: Lt DeltoidDose: Prefilled DoseARiding, ISHMAEL Gerber CT - ChestBy: Fast DO, Iwona A On: 29-May-2011 Intent IMMUNIZ ADMNIN, 1 VAC, On: 29-May-2011 Intent SNGL/COMBO (36114)By: Zabrina Farmer Pulse Oximetry (15404)By: Miguel On: 16-Feb-2011 Intent Iwona ABREU Comments: 99 CT - ChestBy: Iwona Rivera DO On: 16-Feb-2011 Intent Comments: stat-pe protocol- call wet read Radiology - ChestBy: Ilsa On: 06-Feb-2011 Intent Marlen SELLERS Pjfntdfgk-Cqp-Gdbpz (81191)By: On: 06-Feb-2011 Intent Ciesa Marlen SELLERS Eprescribed prescriptions On: 03-Jan-2011 Intent (G8553)By: Iwona Rivera DO EKG (09052)By: Anahy KRISHNAN, On: 15-Dec-2010 Intent Manda Melissa Eprescribed prescriptions On: 17-Nov-2010 Intent (G8553)By: Iwona Rivera DO MAMMOGRAM, SCREENING, BOTH On: 06-Mar-2010 Intent BREASTS (29361)By: Iwona Rivera DO DXA, BONE DENSITY, AXIAL On: 06-Mar-2010 Intent SKELETON (55814)By: Iwona Rivera DO CT - Abdomen & PelvisBy: Miguel On: 22-Aug-2009 Intent Iwona ABREU PNEUM VAC ADLT/IMUMNOSPR, On: 22-Apr-2009 Intent SBC/INTRM (37618)By: Samantha Kumar RN IMMUNIZ ADMNIN, 1 VAC, On: 22-Apr-2009 Intent SNGL/COMBO (00973)By: Stacy STINSON, Comments: Lot #: [id number] date: mount given: 0.5 mlRoute: IMSite given: right deltoidGiven by: ISHMAEL Galindo IMMUNIZ ADMNIN, 1 VAC, On: 22-Apr-2009 Intent SNGL/COMBO (98729)By: Samantha Kumar RN FLU VAC, SPLIT, >3 YEARS, On: 22-Apr-2009 Intent INTRAMUSC (15960)By: Stacy STINSON, Comments: Lot #: [id number] date: mount given: 0.5 mlRoute: IMSite given: left deltoidGiven by: ISHMAEL Galindo Pulse Oximetry (59434)By: On: 15-Apr-[address] - Brain/HeadBy: Miguel ABREU, On: 19-Nov-2008 Intent Iwona Cevallos Radiology - ChestBy: Ilsa On: 14-Oct-2008 Intent Marlen SELLERS Pulse Oximetry (02858)By: On: 14-Oct-2008 Intent Ilsa SELLERS Marlen Phillips Comments: done BC Aerosol Treatment (78470)By: On: 14-Oct-2008 Intent Ilsa SELLERS Marlen Phillips Comments: done BC Spirometry (19376)By: On: 12-Oct-2008 Intent Zabrina Farmer Comments: good effort and curve normal MAMMOGRAM, SCREENING, BOTH On: 06-Oct-2008 Intent BREASTS (87506)By: Iwona Rivera DO Aerosol Treatment (85011)By: On: 08-Sep-2008 Intent Ilsa SELLERS Marlen Phillips Pulse Oximetry (97072)By: On: 08-Sep-2008 Intent Ilsa SELLERSMarlen EKG (98183)By: Nii ABREU, On: 02-Jul-2008 Intent Rylee Nelson DO Comments: nsr nothing acute-- v1-v1 lead placement(female) FLU VAC, SPLIT, >3 YEARS, On: 11-Jun-2008 Intent INTRAMUSC (82303)By: Darian, Comments: inj given left deltoid no complicationslot:[id number]:12/28 Zabrina IMMUNIZ ADMNIN, 1 VAC, On: 11-Jun-2008 Intent SNGL/COMBO (32797)By: Zabrina Farmer EKG (90976)By: Iwona Rivera DO On: 22-Dec-2007 Intent A Comments: ekg showed normal sinus rhythym, normal axis, no acute st/t wave changes MAMMOGRAM, SCREENING, BOTH On: 25-Aug-2007 Intent BREASTS (59995)By: Iwona Rivera DO IMMUNIZ ADMNIN, 1 VAC, On: 23-May-2007 Intent SNGL/COMBO (69497)By: Iwona Rivera DO FLU VAC, SPLIT, >3 YEARS, On: 23-May-2007 Intent INTRAMUSC (46092)By: Miguel ABREU, Comments: given 0.5cc im in left deltoid lot#[id number] exp.11/27-WF Iwona A Instructions Name Dates Details Nonsmoker : How to access health information online Indication: Nonsmoker Nonsmoker : How to access health information online - Detail Indication: Nonsmoker Nonsmoker : Patient Instructions Indication: Nonsmoker Nonsmoker : How to access health information online Indication: Nonsmoker Nonsmoker : How to access health information online - Detail Indication: Nonsmoker Nonsmoker : Patient Instructions Indication: Nonsmoker Nonsmoker : How to access health information online Indication: Nonsmoker Nonsmoker : How to access health information online - Detail Indication: Nonsmoker Nonsmoker : Patient Instructions Indication: Nonsmoker Nonsmoker : How to access health information online Indication: Nonsmoker Nonsmoker : How to access health information online - Detail Indication: Nonsmoker Upper respiratory infection, viral : Patient Instructions Indication: Upper respiratory infection, viral Nonsmoker : How to access health information online Indication: Nonsmoker Nonsmoker : How to access health information online - Detail Indication: Nonsmoker Nonsmoker : Patient Instructions Indication: Nonsmoker Abdominal pain, colicky : Patient Instructions Indication: Abdominal pain, colicky Nonsmoker : How to access health information online Indication: Nonsmoker Nonsmoker : How to access health information online - Detail Indication: Nonsmoker Nonsmoker : Patient Instructions Indication: Nonsmoker Nonsmoker : How to access health information online Indication: Nonsmoker Nonsmoker : How to access health information online - Detail Indication: Nonsmoker Nonsmoker : Patient Instructions Indication: Nonsmoker BMI 30.0-30.9,adult : How to access health information online Indication: BMI 30.0-30.9,adult BMI 30.0-30.9,adult : How to access health information online - Detail Indication: BMI 30.0-30.9,adult BMI 30.0-30.9,adult : Patient Instructions Indication: BMI 30.0-30.9,adult Nonsmoker : How to access health information online - Detail Indication: Nonsmoker Nonsmoker : How to access health information online - Detail Indication: Nonsmoker Nonsmoker : Patient Instructions Indication: Nonsmoker Nonsmoker : How to access health information online Indication: Nonsmoker Nonsmoker : How to access health information online - Detail Indication: Nonsmoker Nonsmoker : Patient Instructions Indication: Nonsmoker Annual Medicare Phyiscal WITHOUT abnormal findings (Renamed from Encounter for general adult medical examination without abnormal findings) : How to access health information online Indication: Annual Medicare Phyiscal WITHOUT abnormal findings (Renamed from Encounter for general adult medical examination without abnormal findings) Annual Medicare Phyiscal WITHOUT abnormal findings (Renamed from Encounter for general adult medical examination without abnormal findings) : How to access health information online - Detail Indication: Annual Medicare Phyiscal WITHOUT abnormal findings (Renamed from Encounter for general adult medical examination without abnormal findings) Annual Medicare Phyiscal WITHOUT abnormal findings (Renamed from Encounter for general adult medical examination without abnormal findings) : Patient Instructions Indication: Annual Medicare Phyiscal WITHOUT abnormal findings (Renamed from Encounter for general adult medical examination without abnormal findings) Edema extremities : Patient Instructions Indication: Edema extremities Hemorrhoids, unspecified hemorrhoid type : How to access health information online Indication: Hemorrhoids, unspecified hemorrhoid type Hemorrhoids, unspecified hemorrhoid type : How to access health information online - Detail Indication: Hemorrhoids, unspecified hemorrhoid type Hemorrhoids, unspecified hemorrhoid type : Patient Instructions Indication: Hemorrhoids, unspecified hemorrhoid type GERD (gastroesophageal reflux disease) : How to access health information online Indication: GERD (gastroesophageal reflux disease) GERD (gastroesophageal reflux disease) : How to access health information online - Detail Indication: GERD (gastroesophageal reflux disease) GERD (gastroesophageal reflux disease) : Patient Instructions Indication: GERD (gastroesophageal reflux disease) Vitamin D deficiency, unspecified : How to access health information online Indication: Vitamin D deficiency, unspecified Vitamin D deficiency, unspecified : How to access health information online - Detail Indication: Vitamin D deficiency, unspecified Vitamin D deficiency, unspecified : Patient Instructions Indication: Vitamin D deficiency, unspecified Pre-operative examination : How to access health information online Indication: Pre-operative examination Pre-operative examination : How to access health information online - Detail Indication: Pre-operative examination Pre-operative examination : Patient Instructions Indication: Pre-operative examination Mixed hyperlipidemia : How to access health information online Indication: Mixed hyperlipidemia Mixed hyperlipidemia : How to access health information online - Detail Indication: Mixed hyperlipidemia Mixed hyperlipidemia : Patient Instructions Indication: Mixed hyperlipidemia Osteoporosis, senile : How to access health information online Indication: Osteoporosis, senile Osteoporosis, senile : How to access health information online - Detail Indication: Osteoporosis, senile Osteoporosis, senile : Patient Instructions Indication: Osteoporosis, senile Mixed hyperlipidemia : How to access health information online Indication: Mixed hyperlipidemia Mixed hyperlipidemia : How to access health information online - Detail Indication: Mixed hyperlipidemia Mixed hyperlipidemia : Patient Instructions Indication: Mixed hyperlipidemia Other specified viral infection, in conditions classified elsewhere and of unspecified site : Patient Instructions Indication: Other specified viral infection, in conditions classified elsewhere and of unspecified site Vaginal itching : Patient Instructions Indication: Vaginal itching Dysuria : Patient Instructions Indication: Dysuria Anxiety : Patient Instructions Indication: Anxiety Frequency of urination : Patient Instructions Indication: Frequency of urination Anxiety : Patient Instructions Indication: Anxiety Vertigo : Patient Instructions Indication: Vertigo Osteopenia : Patient Instructions Indication: Osteopenia postmenopausal without estrogen : Patient Instructions Indication: postmenopausal without estrogen Anxiety : Patient Instructions Indication: Anxiety Encounters Office Visit On: 27-May-2018 11:24 Encounter Reason: Injections - The medication the patient is here to receive is other (influenza).Encounter Diagnosis: Need for prophylactic vaccination and inoculation against influenza (Renamed from Need for immunization against influenza) End: 28-May-2018 9:13 [facility] Phone Encounter On: 12-Feb-2018 17:40 Encounter Diagnosis: Post-nasal drainage End: 12-Feb-2018 17:42 [facility] Office Visit On: 12-Feb-2018 10:34 Encounter Reason: Dizziness - Onset was 2 month(s) ago., [ADDITIONAL REASON] Shoulder Problem - The injury involved the right shoulder. Encounter Diagnosis: BMI 31.0-31.9,adult, Nonsmoker, Dizziness, Fatigue, unspecified type, End: 12-Feb-2018 12:13 Acute pain of right shoulder, Impacted cerumen of right ear [facility] Phone Encounter On: 30-Jan-2018 15:47 Encounter Diagnosis: Thyroid nodule End: 30-Jan-2018 15:56 [facility] Office Visit On: 01-Nov-2017 9:06 Encounter Reason: Rash - Symptoms include skin bumps and pain. Onset was sudden 4 day(s) ago. Note for Rash: on labia and near rectumEncounter Diagnosis: BMI 30.0-30.9,adult, Nonsmoker, Rash, Shingles End: 01-Nov-2017 9:29 [facility] Phone Encounter On: 23-Sep-2017 13:29 Encounter Diagnosis: Depressive disorder End: 23-Sep-2017 13:31 [facility] Office Visit On: 16-Sep-2017 13:50 Encounter Reason: Falls, Geriatric - The most recent fall occurred week(s) ago indoors and outdoors. Symptoms include recurring falls and recent fall. The patient describes the symptoms as mild.Encounter Diagnosis: BMI 30.0-30.9,adult, Nonsmoker, End: 16-Sep-2017 14:59 Frequent falls, Bulging of cervical intervertebral disc, Degenerative lumbar disc, LOW BACK PAIN (Renamed from LBP (low back pain)), Dyspareunia, female, H/O: hysterectomy, Frequent UTI, Urinary incontinence in female [facility] Office Visit On: 12-Sep-2017 10:45 Encounter Reason: Cold Symptoms - Symptoms include nasal congestion, runny nose, postnasal drainage and dry cough, while symptoms do not include facial pressure, facial pain or headache. Onset was 4 day(s) ago. The patie End: 12-Sep-2017 12:03 nt describes this as unchanged. Associated symptoms include ear pain (R ear), while associated symptoms do not include wheezing, shortness of breath, nausea, vomiting, diarrhea or fever. Current treatme nt includes oral decongestants. Note for Cold symptoms: Symptoms started about 5 days ago-sore throat, cold symptoms-sneezing, cough, don't feel right, right ear ache, chest tightness, dry cough, na evan congestion, slight body aches. No fever or chills, no nasal drainage, headaches, sinus pressure. Has tried mucinex but couldn't sleep at night so quit taking it.Encounter Diagnosis: Nonsmoker, BMI 31.0-31.9,adult, Cerumen impaction, Upper respiratory infection, viral, Cough, Eustachian tube dysfunction, bilateral, Post-nasal drainage [facility] Office Visit On: 16-Aug-2017 12:04 Encounter Reason: hand painEncounter Diagnosis: BMI 31.0-31.9,adult, Nonsmoker, Accidental fall, initial encounter, Hand pain, left End: 16-Aug-2017 12:21 [facility] Phone Encounter On: 08-Jul-2017 9:12 Encounter Diagnosis: Abdominal pain End: 08-Jul-2017 9:19 [facility] Phone Encounter On: 02-Jul-2017 13:53 Encounter Diagnosis: Abdominal pain, colicky, Constipation, unspecified End: 02-Jul-2017 14:03 [facility] Office Visit On: 27-Jun-2017 10:22 Encounter Reason: Constipation - The onset of the constipation has been gradual (since December and has seen Gianluca and has used several otc things to help and no much relief) and has been occurring in a persistent pattern f End: 27-Jun-2017 11:24 or months. The course has been recurrent. The frequency of bowel movements has been 1 per week. The symptoms have no relieving factors. The symptoms have been associated with abdominal distention, abdom inal pain, nausea and vomiting. Note for Constipation: I have no bm and then I get a bad case of ibs I will have diarrhea and comiting then back to [facility] Diagnosis: Irritable bowel syndrome (564.1), Constipation, chronic, Non-intractable vomiting without nausea, unspecified vomiting type, Abdominal pain, colicky [facility] Office Visit On: 28-May-2017 9:19 Encounter Reason: Annual Medicare Exam - The patient had reviewed and updated the family history, medication/s, past medical history and social history. Yes the patient did have a mini mental status exam done today. The End: 29-May-2017 8:57 activities of daily living the patient needs help with are none. The patient has driven in past 6 months, but the patient has not had fecal incontinence, had urinary incontinence, missed or ran out of m edications to soon, fallen in the past 6 months, gotten lost, has a medalert necklace or bracelet, put area rugs through house or put handrails in bathroom. The patient has completed the following preve ntative measures: mammography (2016) and colonoscopy (2011). The patient does have durable power of [place] attorney and living will. The patient has noticed lack of energy. Other providers contributing to the patient's care are gastrologist and other: (Dr. Beaulieu).Encounter Diagnosis: BMI 31.0- 31.9,adult, Nonsmoker, Annual Medicare Phyiscal WITHOUT abnormal findings (Renamed from Encounter for general adult medical examination without abnormal findings), Postmenopausal (Renamed from Postmenopausal status), Encounter for screening for malignant neoplasm of colon (Renamed from Special screening for malignant neoplasms, colon), Encounter for screening mammogram for breast cancer (Renamed from Encounter for screening mammogram for malignant neoplasm of breast), Need for prophylactic vaccination and inoculation against influenza [facility] Phone Encounter On: 26-Apr-2017 13:25 Encounter Diagnosis: Pain in unspecified joint End: 26-Apr-2017 13:28 [facility] Office Visit On: 18-Feb-2017 13:05 Encounter Reason: Irritable Bowel Syndrome - No changes in management were made at the last visit. Symptoms include constipation (lasted for a week and takes benafiber and miralax). The pain is located in the lower abdom End: 18-Feb-2017 13:39 inal area. There is no radiation. Onset was gradual 2 month(s) ago. The symptoms occur constantly. Note for Irritable bowel syndrome: I wonder if its nit dumping syndrom. I do have bowel soundsEncounter Diagnosis: BMI 30.0-30.9,adult, Nonsmoker, Irritable bowel syndrome (564.1), Constipation, chronic, Change in bowel habit [facility] Phone Encounter On: 17-Jan-2017 11:05 Encounter Diagnosis: Thyromegaly End: 17-Jan-2017 11:08 [facility] Office Visit On: 02-Jan-2017 9:34 Encounter Reason: lump - in throat I found it last weekEncounter Diagnosis: BMI 30.0-30.9,adult, Nonsmoker, Thyromegaly, Family history of thyroid cancer End: 02-Jan-2017 10:18 [facility] Office Visit On: 06-Sep-2016 9:21 Encounter Diagnosis: BMI 30.0-30.9,adult, Nonsmoker, Fatigue, Flu-like symptoms, Lupus End: 06-Sep-2016 12:08 [facility] Office Visit On: 15-Aug-2016 8:39 Encounter Reason: Leg Pain - This condition occurred following a specific injury. The patient sustained an injury to the left lower leg. This occurred 3 month(s) ago. Symptoms include leg pain and difficulty ambulating, End: 15-Aug-2016 9:00 while symptoms do not include swelling or redness.Encounter Diagnosis: BMI 30.0- 30.9,adult, Nonsmoker, Pain of left calf [facility] Office Visit On: 28-May-2016 14:03 Encounter Diagnosis: Encounter for screening for malignant neoplasm of colon (Renamed from Special screening for malignant neoplasms, colon) End: 28-May-2016 14:09 [facility] Office Visit On: 07-May-2016 9:02 Encounter Reason: Injections - The medication the patient is here to receive is pneumovax IM.Encounter Diagnosis: Pneumococcal vaccination given End: 07-May-2016 10:17 [facility] Office Visit On: 25-Apr-2016 13:29 Encounter Reason: Follow up tests - Note for Discuss procedure results: labs 03/16/16, [ADDITIONAL REASON] Annual Medicare Exam - Yes the patient did have () a mini mental status exa End: 25-Apr-2016 14:19 m done today. The activities of daily living the patient needs help with are none. The patient has driven in past 6 months, but the patient has not had fecal incontinence, had urinary incontinence, miss ed or ran out of medications to soon, fallen in the past 6 months, gotten lost, has a medalert necklace or bracelet, put area rugs through house or put handrails in bathroom. The patient has completed t he following preventative measures: mammography (07/05) and colonoscopy (2009 dr hough). The patient does have durable power of [place] attorney and living will. The patient has noticed staying at home rather than doing something new or going out and lack of energy (thinks it is from the lupus). Other providers contributing to the patient's care are driver medic (dr. chavez), urologist (dr. bhatti) and ot her: (community [employer] programmer dr. beaulieu). Note for Annual Medicare Exam: patient has an appt for bone densiyt in jun 2016 and mammo in 07/2016 Encounter Diagnosis: Need for prophylactic vaccination and inoculation against influenza, BMI 30.0-30.9,adult, Nonsmoker, Annual Medicare Phyiscal WITHOUT abnormal findings (Renamed from Encounter for general adult medical examination without abnormal findings), Mixed hyperlipidemia (272.2), Lupus, Encounter for screening mammogram for breast cancer (Renamed from Encounter for screening mammogram for malignant neoplasm of breast), Postmenopausal (Renamed from Postmenopausal status), Encounter for screening for malignant neoplasm of colon (Renamed from Special screening for malignant neoplasms, colon) [facility] Phone Encounter On: 16-Mar-2016 16:10 Encounter Diagnosis: Abnormal WBC count End: 16-Mar-2016 16:12 [facility] Office Visit On: 01-Mar-2016 12:17 Encounter Reason: Follow up for chronic medical issues - The patient feels well with minor complaints, has good energy level and is sleeping well. Patient has been compliant with instructions. Current medication use: no End: 01-Mar-2016 15:12 side effects and compliant with dosing regimen. Patient sleeps 7 hours per night. Nutrition: balanced diet and supplemental vitamins. The medical issues the patient is following up for include All ident ified problems below, depression (anxiety), fibromyalgia, gastric reflux and other (IBS). weight :.Encounter Diagnosis: Anxiety (300.00), Vitamin D deficiency, unspecified, GERD (gastroesophageal reflux disease), Mixed hyperlipidemia (272.2), Osteoporosis, senile, Lupus, Fatigue, Fibromyalgia, Irritable bowel syndrome (564.1), Edema extremities [facility] Office Visit On: 09-Nov-2015 14:48 Encounter Reason: Hemorrhoids - Symptoms include anal pain, anal itching, prolapsing anal tissue, anal lump and pain with defecation, while symptoms do not include anal leakage, rectal bleeding, constipation or diarrhea. End: 09-Nov-2015 21:24 The patient describes the pain as sharp, burning and stinging. Onset was sudden 1 day(s) ago. There is no known event that preceded symptom onset. The patient describes this as moderate in severity and unchanged. Current treatment includes hot soaks. Note for Hemorrhoids: has had on and off- she hasnt had bleeding but fair amount of pain- usuing multiple things like miralax prunes benefiber for bowelsEncounter Diagnosis: Hemorrhoids, unspecified hemorrhoid type [facility] Office Visit On: 02-Aug-2015 15:04 Encounter Reason: Follow up tests - Date: (07/27/15 blood work)., [ADDITIONAL REASON] Follow up for chronic medical issues - The patient feels well with no complaints End: 02-Aug-2015 16:06 , has good energy level and is sleeping well. Patient has been compliant with instructions. Current medication use: experiencing side effects (itching d/t Ultram perscribed by Dr. ortiz), compliant wit h dosing regimen and considered effective by patient. Patient sleeps 7 hours per night. Impact of disease: emotional impact-mild. Nutrition: balanced diet and supplemental vitamins. The medical issues t he patient is following up for include cardiac issues, depression (anxiety ), gastric reflux, high cholesterol, osteoporosis/osteopenia and other (IBS, migraine, DDD, vitamin d def., elevated lft's ). Encounter Diagnosis: Osteoporosis, senile, Vitamin D deficiency, unspecified, GERD (gastroesophageal reflux disease), Obesity, Irritable bowel syndrome (564.1), Migraine (346.80), Diverticulosis of colon (without mention of hemorrhage) (562.10), Degenerative disc disease, Mixed hyperlipidemia (272.2), Abnormal CBC, Depressive disorder, Fibromyalgia, Anxiety (300.00), Proteinuria, Lupus, Diaphragmatic hernia without obstruction, Fatigue, Flu-like symptoms, LOW BACK PAIN (Renamed from LBP (low back pain)), Nausea, Abnormal finding of blood chemistry, unspecified, Menopause syndrome [facility] Phone Encounter On: 23-Jun-2015 9:10 Encounter Diagnosis: Vitamin D deficiency, unspecified End: 23-Jun-2015 9:12 [facility] Office Visit On: 20-Jun-2015 13:18 Encounter Reason: Follow up tests - Diagnostic tests include chest X-ray and other (labs). Date: (06/13).Encounter Diagnosis: Lupus, Proteinuria, Fatigue End: 20-Jun-2015 13:54 [facility] Office Visit On: 13-Jun-2015 12:48 Encounter Reason: Fatigue - The last clinic visit was 3 week(s) ago. Symptoms include fatigue and weakness. Onset was gradual 3 week(s) ago. The symptoms occur intermittently. The episodes occur daily and last for 3 week End: 13-Jun-2015 13:44 s. The patient describes this as unchanged. Symptoms are not exacerbated by physical activity, stress, winter months, taking medication or missing medication. Previous presentation included fatigue and weakness., [ADDITIONAL REASON] Muscle pain - The onset of the muscle pain has been gradual and has been occurring in a persistent pattern for 3 weeks. The course has been recurrent. The muscle pain is described a s a dull aching. The muscle pain is located over the entire body. The symptoms have no aggravating factors. The symptoms have been associated with muscle cramps. Encounter Diagnosis: Flu-like symptoms, Abnormal CBC, Lupus [facility] Office Visit On: 27-Apr-2015 8:36 Encounter Reason: Injections - The medication the patient is here to receive is other (flushot).Encounter Diagnosis: Need for prophylactic vaccination and inoculation against influenza End: 28-Apr-2015 14:32 [facility] Historical Summary On: 14-Apr-2015 7:52 Encounter Diagnosis: Unspecified Diagnosis End: 14-Apr-2015 8:06 [facility] Office Visit On: 15-Mar-2015 11:10 Encounter Reason: Follow up for chronic medical issues - The patient feels well with minor complaints, has decreased energy level and is sleeping well (wakes up due to pain sometimes, may take a couple hours to get back End: 15-Mar-2015 11:59 to sleep). Patient has been compliant with instructions. Current medication use: no side effects, compliant with dosing regimen and considered effective by patient. Patient sleeps 7 hours per night. Imp act of disease: emotional impact-mild. Nutrition: balanced diet and supplemental vitamins. The medical issues the patient is following up for include cardiac issues, depression (anxiety ), gastric reflu x, high cholesterol, osteoporosis/osteopenia and other (IBS, migraine, DDD, vitamin d def., elevated lft's ).Encounter Diagnosis: VITAMIN D DEFICIENCY, NOS (268.9), GERD (530.81), Osteoporosis, Senile (733.01), Obesity, Irritable bowel syndrome (564.1), Inflammatory polyarthritis, Nausea, LOW BACK PAIN (Renamed from LBP (low back pain)), Anxiety (300.00), Hepatitis, Menopause (627.2), Diverticulosis of colon (without mention of hemorrhage) (562.10), Migraine (346.80), Elevated LFT (794.8), DEPRESSIVE DISORDER, NOT ELSEWHERE CLASSIFIED (311.), Osteopenia (733.90), Lupus, Pre-Operative Examination, Unspecified (V72.84), Fibromyalgia, DISEASES OF ESOPHAGUS, DYSKINESIA OF ESOPHAGUS (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 The surgeon for the procedure will be Dr Lee. 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 Pertinent medical history includes prior anesthesia (nausea), renal disease (recurrent stones), gastrointestinal disease (hiatal hernia), impaired immunity (lupus -- takes plaquinel) a nd corticosteroid use in the last six months (prn prednisone for lupus flares -- thinks only has had one in last 6 mos), while pertinent medical history does not include diabetes, cardiovascular disease , pulmonary disease, sleep apnea, thromboembolic problems, clotting disorder, bleeding disorder or frequent aspirin use. Pertinent family history includes aneurysm (mother), while pertinent family histo ry does not include anesthesia reaction, myocardial infarction, stroke, sudden , clotting disorder or bleeding disorder. Pertinent social history includes nonsteroidal anti-inflammatory drug use (h nialle been taking aleve for the pain ), while pertinent social history does not include aspirin use, tobacco use, alcohol use, illicit drug use, transfusion refusal, wearing dentures or partial plates or concerns regarding care after surgery. After surgery the patient plans to recover at home with family.Encounter Diagnosis: Pre-Operative Examination, Unspecified (V72.84), Lupus [facility] Office Visit On: 16-Nov-2014 11:13 Encounter Reason: Follow up for chronic medical issues - The patient feels well with minor complaints, has good energy level and is sleeping well. Patient has been compliant with instructions. Current medication use: exp End: 16-Nov-2014 12:16 eriencing side effects (nasal spray causing thrush ), compliant with dosing regimen and considered effective by patient. Patient sleeps 7 hours per night. Impact of disease: emotional impact-mild. Nutri tion: balanced diet and supplemental vitamins. The medical issues the patient is following up for include cardiac issues, depression (anxiety ), gastric reflux, high cholesterol, osteoporosis/osteopenia and other (IBS, migraine, DDD, vitamin d def., elevated lft's )., [ADDITIONAL REASON] Follow up tests - Date: (11.15.14). Encounter Diagnosis: VITAMIN D DEFICIENCY, NOS (268.9), Mixed hyperlipidemia (272.2), Inflammatory polyarthritis, Elevated LFT (794.8), DEPRESSIVE DISORDER, NOT ELSEWHERE CLASSIFIED (311.), Fibromyalgia, Degenerative Disc Disease (722.6), Diaphragmatic hernia without mention of obstruction or gangrene (553.3), DISEASES OF ESOPHAGUS, DYSKINESIA OF ESOPHAGUS (530.5), Diverticulosis of colon (without mention of hemorrhage) (562.10), Menopause (627.2), Obesity, Anxiety (300.00), LOW BACK PAIN (Renamed from LBP (low back pain)), Osteopenia (733.90), Hepatitis, Osteoporosis, Senile (733.01), Migraine (346.80), Lupus, GERD (530.81), Irritable bowel syndrome (564.1), Nausea, postmenopausal without estrogen [facility] Phone Encounter On: 11-Nov-2014 13:24 Encounter Diagnosis: Mixed hyperlipidemia (272.2), VITAMIN D DEFICIENCY, NOS (268.9) End: 11-Nov-2014 13:27 [facility] Prescription Refill On: 23-Sep-2014 11:29 Encounter Diagnosis: Unspecified Diagnosis End: 23-Sep-2014 11:38 [facility] Phone Encounter On: 20-Aug-2014 14:26 Encounter Diagnosis: Unspecified Diagnosis End: 20-Aug-2014 14:28 [facility] Office Visit On: 03-Aug-2014 7:44 Encounter Reason: Follow up tests - Date: (jun 2014 dexa).Encounter Diagnosis: Osteoporosis, Senile (733.01), Hepatitis, Prophylactic vaccination against Streptococcus pneumoniae (V03.82) End: 03-Aug-2014 8:35 [facility] Office Visit On: 06-Jul-2014 9:22 Encounter Reason: Follow up tests - Date: (JUN 2014)., [ADDITIONAL REASON] Follow up for chronic medical issues - The patient feels well with minor complai End: 06-Jul-2014 10:25 nts, has good energy level and is sleeping well. Patient has been compliant with instructions. Current medication use: experiencing side effects (nasal spray causing thrush ), compliant with dosing jn men and considered effective by patient. Patient sleeps 7 hours per night. Impact of disease: emotional impact-mild. Nutrition: balanced diet and supplemental vitamins. The medical issues the patient is following up for include cardiac issues, depression (anxiety ), gastric reflux, high cholesterol, osteoporosis/osteopenia and other (IBS, migraine, DDD, vitamin d def., elevated lft's ). Encounter Diagnosis: GERD (530.81), VITAMIN D DEFICIENCY, NOS (268.9), Anxiety (300.00), Osteopenia (733.90), Mixed hyperlipidemia (272.2), Nausea, Irritable bowel syndrome (564.1), Lupus, LOW BACK PAIN (Renamed from LBP (low back pain)), Migraine (346.80), Obesity, Hepatitis, Menopause (627.2), Elevated LFT (794.8), DISEASES OF ESOPHAGUS, DYSKINESIA OF ESOPHAGUS (530.5), Diaphragmatic hernia without mention of obstruction or gangrene (553.3), Diverticulosis of colon (without mention of hemorrhage) (562.10), DEPRESSIVE DISORDER, NOT ELSEWHERE CLASSIFIED (311.), Degenerative Disc Disease (722.6), Fibromyalgia, Inflammatory polyarthritis, WWV V73.21 [facility] Office Visit On: 14-Jun-2014 9:45 Encounter Reason: Urinary problems - The onset of the urinary problems has been sudden and they have been occurring in a persistent pattern for 3 days. The course has been increasing. The urinary problems are described a End: 14-Jun-2014 10:27 s moderate. The urinary problem is characterized as frequency, urgency and painful urination.Encounter Diagnosis: Dysuria (Renamed from Difficult or painful urination), UTI (lower urinary tract infection) (599.0) [facility] Office Visit On: 03-May-2014 11:57 Encounter Reason: Injections - The medication the patient is here to receive is other (flu).Encounter Diagnosis: Need for prophylactic vaccination and inoculation against influenza (V04.81) End: 03-May-2014 13:46 [facility] Phone Encounter On: 16-Feb-2014 9:03 Encounter Diagnosis: Anxiety (300.00) End: 16-Feb-2014 9:04 [facility] Office Visit On: 09-Feb-2014 8:48 Encounter Reason: Follow up for chronic medical issues - The patient feels well with minor complaints, has good energy level and is sleeping well. Patient has been compliant with instructions. Current medication use: exp End: 09-Feb-2014 9:49 eriencing side effects (nasal spray causing thrush ), compliant with dosing regimen and considered effective by patient. Patient sleeps 7 hours per night. Impact of disease: emotional impact-mild. Nutri tion: balanced diet and supplemental vitamins. The medical issues the patient is following up for include cardiac issues, depression (anxiety ), gastric reflux, high cholesterol, osteoporosis/osteopenia and other (IBS, migraine, DDD, vitamin d def., elevated lft's ).Encounter Diagnosis: Irritable bowel syndrome (564.1), DEPRESSIVE DISORDER, NOT ELSEWHERE CLASSIFIED (311.), Anxiety (300.00), VITAMIN D DEFICIENCY, NOS (268.9), GERD (530.81), Migraine (346.80), DISEASES OF ESOPHAGUS, DYSKINESIA OF ESOPHAGUS (530.5), Diaphragmatic hernia without mention of obstruction or gangrene (553.3), Diverticulosis of colon (without mention of hemorrhage) (562.10), Low HDL (272.5), LOW BACK PAIN (Renamed from LBP (low back pain)), Mixed hyperlipidemia (272.2), Degenerative Disc Disease (722.6), Elevated LFT (794.8), Menopause (627.2), Osteopenia (733.90), Obesity, Hepatitis [facility] Office Visit On: 05-Feb-2014 13:36 Encounter Diagnosis: Mixed hyperlipidemia (272.2) End: 05-Feb-2014 13:56 [facility] Office Visit On: 01-Feb-2014 15:04 Encounter Reason: Urinary problems - The onset of the urinary problems has been sudden and they have been occurring in a persistent pattern for 1 day. The course has been increasing. The urinary problems are described as End: 01-Feb-2014 15:32 moderate. There has been associated back pain.Encounter Diagnosis: LOW BACK PAIN (Renamed from LBP (low back pain)) [facility] Annotation/Addendum On: 13-Jan-2014 16:19 Encounter Diagnosis: Unspecified Diagnosis End: 13-Jan-2014 16:26 [facility] Office Visit On: 11-Jan-2014 9:51 Encounter Reason: Sore Throat - Symptoms include sore throat and odynophagia, while symptoms do not include myalgias, fever or chills. The symptoms are symmetrical. There is no radiation. The patient describes the pain a End: 11-Jan-2014 10:22 s dull and aching. Onset was sudden 4 day(s) ago. The symptoms occur constantly. The patient describes this as moderate in severity and worsening. Symptoms are exacerbated by swallowing liquids and swal lowing solids. Associated symptoms include headache, while associated symptoms do not include hoarseness, nausea or fatigue.Encounter Diagnosis: ACUTE PHARYNGITIS (462.), VIRAL INFECTION, UNSPECIFIED (079.99) [facility] Office Visit On: 19-Nov-2013 8:23 Encounter Reason: VaginitisEncounter Diagnosis: Vaginitis, Vaginal Itching (698.1) End: 19-Nov-2013 8:51 [facility] Office Visit On: 18-Sep-2013 10:35 Encounter Reason: Follow up for chronic medical issues - The patient feels well with minor complaints and has decreased energy level. Patient has been compliant with instructions. Current medication use: no side effects, End: 18-Sep-2013 11:27 compliant with dosing regimen and considered effective by patient. Patient sleeps 7 hours per night. Impact of disease: emotional impact-mild. Nutrition: balanced diet and supplemental vitamins. The me dical issues the patient is following up for include cardiac issues, depression, high cholesterol, osteoporosis/osteopenia and other (migraines, IBS, diverticulosis, DDD, vaginal dryness, vitamin d def., elevated lft's ).Encounter Diagnosis: Irritable bowel syndrome (564.1), DEPRESSIVE DISORDER, NOT ELSEWHERE CLASSIFIED (311.), Migraine (346.80), Cerebral degeneration, unspecified (331.9), Anxiety (300.00), Kidney stone (592.0), Hypoglycemia (251.2), Low HDL (272.5), Hirsutism (Renamed from Hirsuties), Other Inflammatory Diseases of Cervix, Vagina or Vulva (616.8), VITAMIN D DEFICIENCY, NOS (268.9), Abnormal blood chemistry (790.6), GENERAL SYMPTOMS; MEMORY LOSS (780.93), Pain in Joint, Other Spec Site (719.48), Degenerative Disc Disease (722.6), Lung nodule (518.89), Osteopenia (733.90), Hematuria (Renamed from Blood in the urine), GERD (530.81), Elevated LFT (794.8), Mixed hyperlipidemia (272.2), Hypopotassemia (276.8), Diverticulosis of colon (without mention of hemorrhage) (562.10), Menopause (627.2), Diaphragmatic hernia without mention of obstruction or gangrene (553.3), DISEASES OF ESOPHAGUS, DYSKINESIA OF ESOPHAGUS (530.5), Vaginal Dryness (623.8), Epigastric Pain (Renamed from Abdominal pain, epigastric) [facility] Office Visit On: 02-Sep-2013 10:09 Encounter Reason: Dysuria - Symptoms include dysuria and frequency, while symptoms do not include hematuria, suprapubic pain or flank pain. Onset was 4 day(s) ago. Associated symptoms do not include vaginal discharge, va End: 02-Sep-2013 10:29 ginal itching, lower back pain or abdominal pain.Encounter Diagnosis: DYSURIA, NOS (788.1), Hematuria (Renamed from Blood in the urine) [facility] Office Visit On: 26-May-2013 13:26 Encounter Reason: Injections - The medication the patient is here to receive is other (flu).Encounter Diagnosis: Need for prophylactic vaccination and inoculation against influenza (V04.81) End: 28-May-2013 8:25 [facility] Office Visit On: 14-May-2013 10:22 Encounter Reason: Follow up acute care visit - The patient feeling better since last seen and improving. Patient has been compliant with instructions. Current medication use: no side effects, compliant with dosing regime End: 14-May-2013 11:14 n and considered effective by patient. Patient sleeps 7 hours per night. Impact of disease: emotional impact-mild. Nutrition: balanced diet and supplemental vitamins. The medical issues the patient is following up for include depression. Encounter Diagnosis: Elevated LFT (794.8), DEPRESSIVE DISORDER, NOT ELSEWHERE CLASSIFIED (311.), Irritable bowel syndrome (564.1), WWV V73.21 [facility] Office Visit On: 27-Mar-2013 11:05 Encounter Diagnosis: Irritable bowel syndrome (564.1), Anxiety (300.00), Elevated LFT (794.8), DEPRESSIVE DISORDER, NOT ELSEWHERE CLASSIFIED (311.) End: 27-Mar-2013 11:51 [facility] Phone Encounter On: 16-Jan-2013 16:19 Encounter Diagnosis: Elevated LFT (794.8) End: 16-Jan-2013 16:28 [facility] Recovered Encounter On: 02-Jan-2013 15:44 Encounter Diagnosis: Mixed hyperlipidemia (272.2) End: 02-Jan-2013 15:47 [facility] Phone Encounter On: 02-Jan-2013 14:49 Encounter Diagnosis: UTI (lower urinary tract infection) (599.0) End: 02-Jan-2013 14:55 [facility] Office Visit On: 30-Dec-2012 8:54 Encounter Reason: UTI - The symptoms have been occurring for 3 days.Encounter Diagnosis: Frequency of urination (788.41) End: 30-Dec-2012 9:32 [facility] Phone Encounter On: 16-Dec-2012 16:56 Encounter Diagnosis: Elevated LFT (794.8) End: 16-Dec-2012 16:57 [facility] Phone Encounter On: 10-Dec-2012 17:16 Encounter Diagnosis: Elevated LFT (794.8) End: 10-Dec-2012 17:19 [facility] Office Visit On: 09-Dec-2012 12:49 Encounter Reason: Follow up for chronic medical issues - The patient feels well with no complaints, has good energy level and is sleeping well. Patient has been compliant with instructions. Current medication use: no denise End: 09-Dec-2012 22:07 e effects and compliant with dosing regimen. Patient sleeps 6 hours per night. Nutrition: balanced diet, supplemental vitamins and low salt diet. The medical issues the patient is following up for inclu de All identified problems below, depression (anxiety), gastric reflux, high cholesterol (low hdl) and other (memory loss, ddd, ibs). weight : (Tops- 170). Note for Follow up for chronic medical issues : no gerd on boniva - - she is willing to try linzess for her ibs- her vertigo is improving- her weight down 5 pounds and her mood is good and sleeping good- her lfts are up- no etoh since first part o f october- fentanyl dose was recently inreased- no other new herbs- takes melatonin but for long time- occ tylenol - migraines controlledEncounter Diagnosis: Anxiety (300.00), Migraine (346.80), Irritable bowel syndrome (564.1), Osteopenia (733.90), Lung nodule (518.89), Elevated LFT (794.8) [facility] Office Visit On: 03-Dec-2012 8:44 Encounter Reason: Dizziness - Onset was week(s) ago (1 week on and off - I have had before and just went to bed but this time I came in cause it had gotten really bad since yesterday). Note for Dizziness: lay down feel End: 03-Dec-2012 9:18 s good but when moves head spinning- nauseated - like motion sickness- -no double vision no weakness or numbness in arm or leg - no slurred speech- balance off - all over not to one side- - no increase in headaches-no recent illness Encounter Diagnosis: Vertigo (780.4) [facility] Office Visit On: 01-Aug-2012 11:51 Encounter Reason: Follow up tests - Diagnostic tests include other (bone density). Date: (06/26/12). Follow up visit with no current symptoms. Note for Discuss procedure results: she is consistent with exercise 4-5 time End: 03-Aug-2012 20:27 s a week and calcium and vit d - she wants to retry boniva-never had gerd or dysphagia- she lost a retained baby tooth last time not sure related no periodontal diseaseEncounter Diagnosis: Osteopenia (733.90), Lung nodule (518.89) [facility] Office Visit On: 10-Jun-2012 13:08 Encounter Reason: Follow up for chronic medical issues - The patient feels well with minor complaints (pt has dx'd herself with Lactose Intolerance- when eats dairy products get stomach pain and then diarrhea so is takin End: 10-Jun-2012 14:07 g a daily dairy aide in case eats something with dairy in it- otherwise doesnt have these issues. ), has good energy level and is sleeping well. Patient has been compliant with instructions. Current med ication use: no side effects and compliant with dosing regimen. Patient sleeps 6 hours per night. Nutrition: balanced diet, supplemental vitamins and low salt diet. The medical issues the patient is fol lowing up for include All identified problems below, depression (anxiety), gastric reflux, high cholesterol (low hdl) and other (memory loss, ddd, ibs). weight : (Tops- 170). Note for Follow up for chr onic medical issues: no gerd - - really working on weight with diet and exercise and not getting anywhere- migraines good and mood is good and sleepign well , [ADDITIONAL REASON] Follow up, Laboratory Test Results - Date: (06/07/12). , [ADDITIONAL REASON] Lactose Intolerance - Symptoms include abdominal pain, bloating, cramping, diarrhea and flatulence, while symptoms do not include nausea or vomiting. The pain is located in the lowe r abdominal area. Onset was gradual month(s) ago. Symptoms are triggered by consumption of cheese, butter, margarine, ice cream and yogurt. The symptoms occur after eating. Encounter Diagnosis: Migraine (346.80), GERD (530.81), Anxiety (300.00), Irritable bowel syndrome (564.1), Mixed hyperlipidemia (272.2), Lung nodule (518.89), postmenopausal without estrogen [facility] Phone Encounter On: 02-Jun-2012 15:28 Encounter Diagnosis: SCREENING FOR BREAST CANCER (V76.10) End: 02-Jun-2012 15:32 [facility] Office Visit On: 04-Dec-2011 12:55 Encounter Reason: Follow up for chronic medical issues - The patient feels well with minor complaints (believes she's been having episodes of hypoglycemia- after eats breakfast gets spells of weakness, sweats and anxious End: 04-Dec-2011 22:37 so started eating peanut butter an hour after eating breakfast and now symptoms are gone.), has good energy level and is sleeping well. Patient has been compliant with instructions. Current medication use: no side effects and compliant with dosing regimen. Patient sleeps 6 hours per night. Nutrition: balanced diet, supplemental vitamins and low salt diet. The medical issues the patient is following u p for include All identified problems below, depression (anxiety), gastric reflux, high cholesterol (low hdl) and other (memory loss, ddd, ibs). weight : (Tops- 170). Note for Follow up for chronic med ical issues: her bp is down now that retired but no side efects of the low and tried off the norvasc for esophageal spasm andthey come back- mood has been good and sleeping ??well - no gerd - bowels ar e working good with the regeimen- with what she is on, [ADDITIONAL REASON] Follow up, Laboratory Test Results - Date: (11/30/11). , [ADDITIONAL REASON] Hypoglycemia - Pt has been having episodes of sudden weakness, fatigue and sweat s about 1 hr after breakfast. Since then pt has been eating some peanut butter 1 hr approx after breakfast and since then these symptoms have decreased.-- Encounter Diagnosis: DISEASES OF ESOPHAGUS, DYSKINESIA OF ESOPHAGUS (530.5), Irritable bowel syndrome (564.1), Anxiety (300.00), Mixed hyperlipidemia (272.2), VITAMIN D DEFICIENCY, NOS (268.9), Lung nodule (518.89), GERD (530.81), Hypoglycemia (251.2) [facility] Phone Encounter On: 10-Aug-2011 9:04 Encounter Diagnosis: VITAMIN D DEFICIENCY, NOS (268.9), Mixed hyperlipidemia (272.2) End: 10-Aug-2011 9:10 [facility] Office Visit On: 27-Jul-2011 9:46 Encounter Reason: Candidiasis, Vaginal - Symptoms include vaginal burning, vaginal pain and vulvar irritation. The patient describes the discharge as white and thick. Onset was sudden. The patient describes this as worsening.Encounter Diagnosis: End: 27-Jul-2011 10:22 CANDIDIASIS, MOUTH (THRUSH) (112.0), Other Inflammatory Diseases of Cervix, Vagina or Vulva (616.8) [facility] Office Visit On: 29-May-2011 14:32 Encounter Reason: Follow up for chronic medical issues - The patient feels well with no complaints, has good energy level and is sleeping well. Patient has been compliant with instructions. Current medication use: no denise End: 29-May-2011 21:07 e effects and compliant with dosing regimen. Patient sleeps 6 hours per night. Nutrition: balanced diet, supplemental vitamins and low salt diet. The medical issues the patient is following up for inclu de All identified problems below, depression (anxiety), gastric reflux, high cholesterol (low hdl) and other (memory loss, ddd, ibs). weight : (Tops- 168). Note for Follow up for chronic medical issues : meds are workin ggood- she isnt having the esophageal spasm- not really any gerd- bp is good and weight iss table- little anxiety since retired from being at home- but overall doing well- memory much better since no work stress- saw Dr Hope and did breast exam-- had lump saw [place]- and he couldnt find it - so they refferred her to doctor at [facility] and workup was neg, [ADDITIONAL REASON] Follow up, Laboratory Test Results - Date: (03/30/11). Encounter Diagnosis: Need for prophylactic vaccination and inoculation against influenza (V04.81), Anxiety (300.00), Irritable bowel syndrome (564.1), DISEASES OF ESOPHAGUS, DYSKINESIA OF ESOPHAGUS (530.5), Mixed hyperlipidemia (272.2), VITAMIN D DEFICIENCY, NOS (268.9), Lung nodule (518.89) [facility] Phone Encounter On: 02-Mar-2011 13:07 Encounter Diagnosis: Mixed hyperlipidemia (272.2) End: 27-Mar-2011 11:07 [facility] Office Visit On: 16-Feb-2011 8:41 Encounter Reason: Follow up acute care visit - The patient feels the same (last seen 02.06.11). Patient has been compliant with instructions. Current medication use: no side effects and compliant with dosing regimen. Jesenia End: 16-Feb-2011 9:21 ent sleeps 6 (Saturday is my first day of halfway so I will be getting more) hours per night. The medical issues the patient is following up for include other (rib pain on R side). Note for Follow up acute care visit: went to [place]- drove 500 miles - no leg pain or swelling- pain not better- no tob but hurts to take deepr breath- not sob or coughing- no fever- hurts to lift or move certain ways - no trauma- radiates up into chest Encounter Diagnosis: Chest pain (786.59) [facility] Office Visit On: 06-Feb-2011 8:47 Encounter Reason: Muscle pain - The onset of the pain has been sudden and has been occurring in a persistent pattern for 1 week. The course has been constant. The pain is described as a moderate sharp stabbing (with mvt End: 06-Feb-2011 10:23 ). The pain is located over the entire body (under R Br). The symptoms are aggravated by physical activity. The symptoms are relieved by nothing (takes vicoden for back pain and unreleived by this). The re has been no associated cough, fatigue, fever, headache, hypertension, insomnia, muscle weakness or skin rash.Encounter Diagnosis: Pain in Joint, Other Spec Site (719.48) [facility] Office Visit On: 03-Jan-2011 15:07 Encounter Reason: Follow up Meds - The patient feels well with minor complaints, has good energy level and is sleeping well. Patient has been compliant with instructions. Current medication use: no side effects and compl End: 03-Jan-2011 16:19 iant with dosing regimen. Patient sleeps 6 hours per night. Nutrition: balanced diet and supplemental vitamins. Note for Follow up Meds: the norvasc helps quite a bit- with her spasms- she isnt gettin g the chest pain like she was and number and severity has lessened and no significant swelling with the norvasc- she is still losing weight with tops- and retiring in 46 days and will increase her exercise- she is working towards 145 weigth goal Encounter Diagnosis: DISEASES OF ESOPHAGUS, DYSKINESIA OF ESOPHAGUS (530.5), GERD (530.81), Irritable bowel syndrome (564.1) [facility] Office Visit On: 15-Dec-2010 7:26 Encounter Reason: esophageal spasms - Nulive-- 0.125mg tid prn at this pointOmeprazole and Zantac alsoEncounter Diagnosis: DISEASES OF ESOPHAGUS, DYSKINESIA OF ESOPHAGUS (530.5), Chest pain (786.59) End: 15-Dec-2010 8:05 [facility] Office Visit On: 17-Nov-2010 10:18 Encounter Reason: Follow up for chronic medical issues - The patient feels well with no complaints, has good energy level and is sleeping well. Patient has been compliant with instructions. Current medication use: no denise End: 17-Nov-2010 11:00 e effects and compliant with dosing regimen. Patient sleeps 6 hours per night. Nutrition: balanced diet, supplemental vitamins and low salt diet. The medical issues the patient is following up for inclu de All identified problems below, depression (anxiety), gastric reflux, high cholesterol (low hdl) and other (memory loss, ddd, ibs). weight : (Tops- 176). Note for Follow up for chronic medical issues : she gets neck adjusted and when she does helps headaches they have been g0od- she went off welbutrin thought she didnt need it but realized she does- and went bacfk on and helps- no gerd- and is gett ing synvisc for knee and has helped by Dr Simms- - she saw Dr Hough- and he scoped her in aug-and was ok - he thinks IBS- alot of pencil thin stools- told her ok for lactulose- but if doesnt go for cou ple days then will vomit- with less stress less issues with memory- she is retiring this summer- has had bone density in last year and was normal and seh will appt with [facility] for pap - and she is taking 2000vit d - will go to one a day, [ADDITIONAL REASON] Follow up, Laboratory Test Results - Date: (10/10/10). Encounter Diagnosis: Vaginal Dryness (623.8), VITAMIN D DEFICIENCY, NOS (268.9), Mixed hyperlipidemia (272.2), DEPRESSIVE DISORDER, NOT ELSEWHERE CLASSIFIED (311.), GERD (530.81), Osteopenia (733.90), Irritable bowel syndrome (564.1), Migraine (346.80) [facility] Phone Encounter On: 09-Oct-2010 17:57 Encounter Diagnosis: Mixed hyperlipidemia (272.2), VITAMIN D DEFICIENCY, NOS (268.9), Hypopotassemia (276.8) End: 09-Oct-2010 17:58 [facility] Historical Summary On: 12-Sep-2010 16:44 Encounter Diagnosis: Unspecified Diagnosis End: 12-Sep-2010 16:52 [facility] Historical Summary On: 25-Aug-2010 13:53 Encounter Diagnosis: DEPRESSIVE DISORDER, NOT ELSEWHERE CLASSIFIED (311.) End: 25-Aug-2010 13:55 [facility] Phone Encounter On: 25-Jul-2010 14:54 [facility] End: 25-Jul-2010 14:54 Office Visit On: 04-Jul-2010 16:15 Encounter Reason: Follow up for chronic medical issues - The patient feels well with no complaints, has good energy level and is sleeping well. Patient has been compliant with instructions. Current medication use: no denise End: 04-Jul-2010 16:54 e effects and compliant with dosing regimen. Patient sleeps 6 (with ambien) hours per night. Nutrition: balanced diet, supplemental vitamins and low salt diet. The medical issues the patient is followin g up for include All identified problems below, depression (anxiety), gastric reflux, high cholesterol (low hdl) and other (memory loss, ddd, ibs). weight : (Tops- 180). Note for Follow up for chronic medical issues: she has tried all other alternatives for constipation- amitiza and miralax- and fiber no help lactulose is only thing helps- doesnt go daily - goes 3-4 times a week- try taking qod ins tead- ibs good with nulev- - the menopause sx- are good with vagifem- anxiety is good- feeling wellin general- did bone density a year ago and was good, [ADDITIONAL REASON] Follow up, Laboratory Test Results - Date: (06/24/10). Encounter Diagnosis: Migraine (346.80), Irritable bowel syndrome (564.1), DEPRESSIVE DISORDER, NOT ELSEWHERE CLASSIFIED (311.), GERD (530.81), VITAMIN D DEFICIENCY, NOS (268.9), Mixed hyperlipidemia (272.2) [facility] Office Visit On: 28-Jun-2010 14:54 Encounter Reason: Sinusitis/ - The duration of the symptoms are 5 days The course has been worsening. The sinusitis/ has no relieving factors. Associated features include The symptoms have been associated with cough (pro End: 28-Jun-2010 15:14 ductive of yellow sputum) and nasal discharge/stuffy nose (yellow), while the symptoms have not been associated with ear pain or teeth pain. No previous evaluations were reported. none reported.Encounter Diagnosis: Viral infection, unspecified (079.99) [facility] Office Visit On: 06-Mar-2010 15:57 Encounter Reason: Follow up for chronic medical issues - The patient feels well with no complaints ,has good energy level and is sleeping poorly (d/t bulging disc in neck). Patient has been compliant with instructions. C End: 06-Mar-2010 16:52 urrent medication use: no side effects and compliant with dosing regimen. Patient sleeps 6 (with ambien) hours per night. Nutrition: balanced diet ,supplemental vitamins and low salt diet. The medical i ssues the patient is following up for include All identified problems below ,depression (anxiety) ,gastric reflux ,high cholesterol (low hdl) and other (memory loss, ddd, ibs). weight : (Tops- 180). Not e for Follow up for chronic medical issues: she is still going to tops- she is down 25 pounds in 18 mos- and really trying- - her bowels are better with lactulose- she is using omprazole for gerd and doing gerd- and migraines better since occipital block- mood good sleeping ok- less stress at work so memory is improved- her potassium is good- and feels life is good, [ADDITIONAL REASON] Follow up, Laboratory Test Results - Date: (03/04/10). Encounter Diagnosis: Irritable bowel syndrome (564.1), Anxiety (300.00), Menopause (627.2), Mixed hyperlipidemia (272.2), VITAMIN D DEFICIENCY, NOS (268.9), screening, Osteopenia (733.90) [facility] Office Visit On: 01-Nov-2009 15:18 Encounter Reason: Follow up for chronic medical issues - The patient feels well with no complaints ,has good energy level and is sleeping poorly (d/t bulging disc in neck). Patient has been compliant with instructions. C End: 01-Nov-2009 16:03 urrent medication use: no side effects and compliant with dosing regimen. Patient sleeps 6 hours per night. Nutrition: balanced diet ,supplemental vitamins and low salt diet. The medical issues the jesenia ent is following up for include All identified problems below ,depression (anxiety) ,gastric reflux ,high cholesterol (low hdl) and other (memory loss, ddd, ibs). weight :. Note for Follow up for chron ic medical issues: saw Gianluca he thought all Ibs- he tried amitiza - some help initially- did cleanse that helped little- onpain meds but going to get shot in back with Basali- thinks will help as will get off pain meds- she doesnt have pain but constipatin- trying lots of fiber- miralax-migraines much better with injection into occipital nerve- sleeping not well - so uses ambien on night that works- no gerd- with omeprazole, [ADDITIONAL REASON] Follow up, Laboratory Test Results - Date: (10/15/09). Encounter Diagnosis: Irritable bowel syndrome (564.1), Migraine (346.80), Anxiety (300.00), Mixed hyperlipidemia (272.2), VITAMIN D DEFICIENCY, NOS (268.9), GERD (530.81), Hypopotassemia (276.8) [facility] Office Visit On: 22-Aug-2009 17:32 Encounter Reason: Irritable Bowel Syndrome - Symptoms include abdominal pain ,abdominal cramping ,abdominal bloating ,constipation ,diarrhea ,mucoid stools ,watery stools ,nausea and vomiting. The pain is located in the End: 22-Aug-2009 22:50 lower abdominal area. There is no radiation. The patient describes the pain as sharp and crampy. Onset was gradual 1 month(s) ago. The symptoms occur intermittently. The episodes occur daily and last fo r 4 hours. The patient describes this as moderate in severity and worsening. Symptoms are not relieved by eating ,high fiber diet ,antacids or antidiarrheals. Associated symptoms do not include bloody s tools ,fever ,weight loss or rash. The patient is not currently being treated for this problem. Note for Irritable Bowel Syndrome: quit ambien muscle relaxant and not sleeping well- but she has alot g oing on- she does have significnat stressors trouble eating so much diarrhea- was scoped in the last year- no blood in stool- she is taking fiber - she will get terrible constipation then take stool sof tners and then gets diarrhea and alot of vomitingEncounter Diagnosis: Irritable bowel syndrome (564.1), Abdominal Pain,General (789.07) [facility] Office Visit On: 14-Jun-2009 15:39 Encounter Reason: Follow up for chronic medical issues - The patient feels well with no complaints ,has good energy level and is sleeping poorly (d/t bulging disc in neck). Patient has been compliant with instructions. C End: 14-Jun-2009 22:34 urrent medication use: no side effects and compliant with dosing regimen. Patient sleeps 6 hours per night. Nutrition: balanced diet ,no supplemental vitamins & iron and low salt diet. The medical i ssues the patient is following up for include All identified problems below ,depression (anxiety) ,gastric reflux ,high cholesterol (low hdl) and other (memory loss, ddd, ibs). weight :. Note for Andreina w up for chronic medical issues: she is no longer coughing and got rid of pneumonia- chest sx are gone and her migraines are controlled on two topamax- is off the amitrypytline- is off amitrylptiline- she is doing ok on welbutrin- but thinks may need to bump up for the winter- bowels are about the same- endo- - put her on vagifem and this has helped- memory alot better- less stress at work, [ADDITIONAL REASON] Follow up, Laboratory Test Results - Date: (06/11/09). Encounter Diagnosis: Migraine (346.80), DEPRESSIVE DISORDER, NOT ELSEWHERE CLASSIFIED (311.), GERD (530.81), Degenerative Disc Disease (722.6), Irritable bowel syndrome (564.1), Mixed hyperlipidemia (272.2) [facility] Nurse Visit On: 22-Apr-2009 9:02 Encounter Reason: Injections - The medication the patient is here to receive is pneumovax IM and other (Influenza vaccine). Encounter Diagnosis: Need for prophylactic vaccination and inoculation against influenza (V04.81), End: 22-Apr-2009 9:13 Prophylactic vaccination against Streptococcus pneumoniae (V03.82) [facility] Office Visit On: 15-Apr-2009 7:19 Encounter Reason: Follow up hospital - Reason for ER visit: pneumonia. The patient feels well with minor complaints ,has decreased energy level and is sleeping well. Patient has been compliant with instructions. Current End: 15-Apr-2009 7:42 medication use: compliant with dosing regimen and considered effective by patient. Patient sleeps 7 hours per night. Impact of disease: emotional impact-mild. Nutrition: balanced diet and supplemental vitamins. Encounter Diagnosis: Cough (786.2), Pneumonia due to other specified bacteria (482.89) [facility] Historical Summary On: 01-Apr-2009 16:17 [facility] End: 01-Apr-2009 16:19 Office Visit On: 30-Mar-2009 14:00 Encounter Reason: UTI - The urinary symptoms are described as painful urination and flank pain. The symptoms have been occurring for 2 days and have been increasing. The urine is described as frothy and dark. The symptom End: 30-Mar-2009 15:03 s have been associated with low back pain. There is no medical history of diabetes ,current ,vaginitis or recurrent urinary tract infections. Encounter Diagnosis: DYSURIA, NOS (788.1) [facility] Phone Encounter On: 23-Mar-2009 10:12 [facility] End: 23-Mar-2009 10:16 Office Visit On: 14-Mar-2009 13:15 Encounter Reason: Follow up, Laboratory Test Results - Date: (02/28/09). Note for Follow up, Laboratory Test Results: breasts are much better off the estrogen and mammo ok- but still fatigued- would like to try off elav End: 14-Mar-2009 23:36 il- and try something else to help her sleep= she is falling asleep not staying asleep- she is back on welbutrin for mood- she saw Lorena ortiz and she wanted her to see Yuko Cantor - saw h er twice doing well there- saw Etienne about mri of brain- he didnt think serious- thought maybe shdow , [ADDITIONAL REASON] Follow up, Diagnostic Procedure Results - Diagnostic tests include mammography. Date: (03/05/09). Note for Follow up, Diagnostic Procedure Results: this is a 4 week f/u on bilateral breast pain Encounter Diagnosis: Migraine (346.80), Irritable bowel syndrome (564.1), Cerebral degeneration, unspecified (331.9), Anxiety (300.00) , Other signs and symptoms in breast (611.79), Hirsutism (704.1), Abnormal blood chemistry (790.6), Chest pain (786.59), Grieving Reaction (309.0), Hypoglycemia (251.2) [facility] Office Visit On: 14-Feb-2009 16:07 Encounter Reason: Breast pain - The onset of the pain has been gradual and has been occurring in a persistent pattern for 1 months. The course has been increasing. The pain is described as severe. Note for Breast pain: End: 14-Feb-2009 22:10 both, swollen, painful-- bilateral- felt like - bras not fitting as well- no nipple discharge and constant- no rash- cafffeine 2 cups a day-- tried to stop elavil niacin and welbutrin- still on estrogen- no peripheral vision loss- - but thinks more hair growth on face recently Encounter Diagnosis: Other signs and symptoms in breast (611.79), Hirsutism (704.1) [facility] Historical Summary On: 30-Dec-2008 11:29 [facility] End: 30-Dec-2008 11:33 Office Visit On: 19-Nov-2008 13:49 Encounter Reason: Memory impairment - The onset of the memory impairment has been gradual and has been occurring in a persistent pattern for months. The course has been increasing. The memory impairment is characterized End: 21-Nov-2008 21:09 as a loss of recent memory and a loss of remote memory. The symptoms have been associated with trauma (when child and mild concusion in the 80's), while the symptoms have not been associated with anxiet y ,depression ,epilepsy ,fever ,headache ,nausea ,tremor ,vomiting or driving. 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 The cough is characterized as productive of mucoid sputum. The cough occurs all the time. The symptoms are not aggravated by supine posture or End: 12-Oct-2008 22:30 meals. The symptoms have been associated with hoarseness, while the symptoms have not been associated with fever ,headache ,runny nose ,sore throat or wheezing. Note for Cough: had in feb and went aw ay with treatment- but alot of exposures- felt wheeze - no fever no sobEncounter Diagnosis: Bronchitis,Acute (466.0) [facility] Office Visit On: 06-Oct-2008 14:49 Encounter Reason: Follow up for chronic medical issues - The patient feels well with no complaints ,has good energy level and is sleeping well. Patient has been compliant with instructions. Current medication use: no denise End: 06-Oct-2008 22:31 e effects and compliant with dosing regimen. Patient sleeps 7 hours per night. Nutrition: balanced diet ,no supplemental vitamins & iron and low salt diet. The medical issues the patient is followin g up for include All identified problems below ,depression (anxiety) ,gastric reflux and other (low hdl, fatigue, ibs, ddd, migraine). blood pressure range : (130's/80's) and weight :. Note for Follow up for chronic medical issues: her brother in law and had alot of stress- she went on buspar uses prn and works for her -- helps her sleep and weaned off cymbalta-- is using welbutrin-- using amyt riptyline for sleep -- she saw Sibilia and sleep study is normal-- her schedule is variable and not sleeping well at consistent times and that is why fatigued, [ADDITIONAL REASON] Follow up, Laboratory Test Results - Date: (10/02/08). Encounter Diagnosis: Migraine (346.80), GERD (530.81), Irritable bowel syndrome (564.1), DEPRESSIVE DISORDER, NOT ELSEWHERE CLASSIFIED (311.), Mixed hyperlipidemia (272.2), hypokalemia, screen [facility] Office Visit On: 08-Sep-2008 10:16 Encounter Reason: Bronchitis - The onset of the bronchitis has been acute and has been occurring in an increasing pattern for 3 days. The course has been worsening. The bronchitis has no relieving factors. Associated fea End: 08-Sep-2008 11:12 tures include shortness of breath (very minimal). Encounter Diagnosis: Cough (786.2), SOB (786.05), BRONCHITIS, NOT SPECIFIED ACUTE OR CHRONIC (490.), Laryngitis (464.00) [facility] Office Visit On: 02-Aug-2008 13:08 Encounter Reason: Follow up Meds - The patient feels well with minor complaints ,has good energy level and is sleeping well. Patient has been compliant with instructions. Current medication use: no side effects and compl End: 02-Aug-2008 13:38 iant with dosing regimen. Patient sleeps 6 hours per night. Nutrition: balanced diet and supplemental vitamins. Encounter Diagnosis: Anxiety (300.00) [facility] Office Visit On: 02-Jul-2008 13:40 Encounter Reason: Anxiety - The onset of the anxiety has been sudden and has been occurring in an intermittent pattern for 3 days. The course has been recurrent. There are no specific phobias. Precipitating factors inclu End: 02-Jul-2008 14:25 de specific circumstances. The symptoms have been associated with chest pain. , [ADDITIONAL REASON] Chest pain - The onset of the pain has been sudden and has been occurring in a r ecurrent pattern for 3 days. The pain is described as a moderate discomfort. The pain is described as being located in the substernal area. The pain does not radiate. The symptoms have no aggravating factors. Encounter Diagnosis: Anxiety (300.00), Grieving Reaction (309.0), Chest pain (786.59) [facility] Office Visit On: 11-Jun-2008 10:16 Encounter Reason: Follow up for chronic medical issues - The patient feels well with minor complaints (bulging disc in neck adn pinched nerves, seeing dr Simms and left nreast swellling) ,has good energy level and is sle End: 14-Jun-2008 23:14 eping well. Patient has been compliant with instructions. Current medication use: no side effects and compliant with dosing regimen. Patient sleeps 8 hours per night. Nutrition: balanced diet ,no supple mental vitamins & iron and low salt diet. The medical issues the patient is following up for include All identified problems below ,depression ,gastric reflux and other (ibs,ddd, fatigue, low hdl, h ypoglycemia). weight :. Note for Follow up for chronic medical issues: wants to go to lower dose of cymbalta because she feels affecting libido-- she is getting epidural for cervical disc- she saw Yennifer scott and he did bladder bx- gerd and bowels are good-- nomigraines at this point now that working on neck, [ADDITIONAL REASON] Breast pain - The onset of the pain has been sudden and has been occurring in a persistent pattern for 3 weeks. The course has been constant. The pain is described as moderate. Note for Breast pain: both-- she has been on elavil for 3 weeks-- a 40 mg a night- making her gain weight and feel bloated and breasts tender Encounter Diagnosis: GERD (530.81), Hypoglycemia (251.2), Irritable bowel syndrome (564.1), Migraine (346.80), DEPRESSIVE DISORDER, NOT ELSEWHERE CLASSIFIED (311.), Low HDL (272.5), Need for prophylactic vaccination and inoculation against influenza (V04.81), Other signs and symptoms in breast (611.79) [facility] Historical Summary On: 05-Mar-2008 10:54 [facility] End: 05-Mar-2008 10:55 Office Visit On: 03-Mar-2008 15:13 Encounter Diagnosis: Migraine (346.80), Fatigue (780.79), Hypoglycemia (251.2), Menopause (627.2) End: 03-Mar-2008 15:43 [facility] Office Visit On: 02-Jan-2008 12:22 Encounter Reason: Follow up, Laboratory Test Results - Date: (12/26/07). Encounter Diagnosis: Hypoglycemia (251.2), Fatigue (780.79) End: 04-Jan-2008 20:19 [facility] Office Visit On: 22-Dec-2007 15:38 Encounter Reason: Follow up for chronic medical issues - The patient feels well with no complaints ,has decreased energy level and is sleeping poorly. Patient has been compliant with instructions. Current medication use: End: 22-Dec-2007 22:19 no side effects. Patient sleeps 7 hours per night. Impact of disease: no emotional impact. Nutrition: balanced diet. The medical issues the patient is following up for include All identified problems b elow ,depression ,gastric reflux ,high cholesterol and other (diverticulosis, DDD). Note for Follow up for chronic medical issues: she complains primarily of fatigue-- she sleeps well-- 6-7 hours a wa kes up rested-- but feels like needs a nap in afternoon-- she feels like when she had chronic fatigue sx-- 12 years ago-- little hot flashes-- no night sweats and cant lose wt no matter what-- but not e xercising-- mood is good-- the migrianes- 2-3 a week-- triggered by her fatigue-- she is on vicoden prn for pain-- she is seeing Dr simms-- for low back pain- she does snore- has daytime fatigue and needs to nap and headaches-- Encounter Diagnosis: Migraine (346.80), Irritable bowel syndrome (564.1), Fatigue (780.79), GERD (530.81), DEPRESSIVE DISORDER, NOT ELSEWHERE CLASSIFIED (311.), Low HDL (272.5) [facility] Office Visit On: 25-Aug-2007 15:51 Encounter Reason: Follow up for chronic medical issues - The patient feels well with minor complaints (earache, but being handled by ENT) ,has good energy level and is sleeping well. Patient has been compliant with instr End: 25-Aug-2007 22:31 uctions. Current medication use: no side effects and compliant with dosing regimen. Nutrition: balanced diet ,supplemental vitamins and low salt diet. The medical issues the patient is following up for include All identified problems below ,depression ,gastric reflux and other (ddd, migraine, diverticulosis, ibs). weight :. Note for Follow up for chronic medical issues: started cymbalta and off the celexa and she is doing well with this and sleeping ok- she likes it better than celexa and her mood is good and her bowels are good and also feels as though- migraines are much better with the topamax - is having alot of arhtralgias and is seeing Marie Noel for this but has family hx of rheumatoid- she has am stiffness- for a couple hours and she is having alot of wrist / hand and foot and back pain-- she said started suddenly- she is back to starting why wt and is starting an exercise program, [ADDITIONAL REASON] Follow up, Laboratory Test Results - Date: (08/04/07). Encounter Diagnosis: Migraine (346.80), DEPRESSIVE DISORDER, NOT ELSEWHERE CLASSIFIED (311.), Irritable bowel syndrome (564.1), GERD (530.81), Low HDL (272.5), ARTHRALGIAS 719.40 [facility] Historical Summary On: 20-Aug-2007 14:13 [facility] End: 20-Aug-2007 14:17 Office Visit On: 23-May-2007 12:11 Encounter Reason: Follow up Meds - The patient feels well with no complaints (Pt states the Celexa is working very well for her. It is helping with her anxiety levels as well, so therefor she hasn't had trouble with the End: 25-May-2007 16:07 constipation and hasn't had to use the Amitzia.) ,has good energy level and is sleeping well (with melatonine and Unisom.). Patient has been compliant with instructions. Current medication use: no side effects and compliant with dosing regimen. Note for Follow up Meds: on celexa now because of insurance and stomach is better without the amitzia- constipation is better-really likes the celexa- topama x great for migraine- she will still get a little migraine-- Encounter Diagnosis: Migraine (346.80), CONSTIPATION, UNSPECIFIED (564.00), Irritable bowel syndrome (564.1), DEPRESSIVE DISORDER, NOT ELSEWHERE CLASSIFIED (311.), Need for prophylactic vaccination and inoculation against influenza (V04.81) [facility] Historical Summary On: 03-Apr-2007 7:57 [facility] End: 03-Apr-2007 7:58 Office Visit On: 19-Mar-2007 14:20 Encounter Reason: Follow up for chronic medical issues - The patient feels well with minor complaints (still having trouble with constipation d/t IBS.) ,has good energy level and is sleeping poorly. Patient has been comp End: 19-Mar-2007 15:09 liant with instructions. Current medication use: no side effects and compliant with dosing regimen. Nutrition: balanced diet ,supplemental vitamins and low salt diet. The medical issues the patient is f ollowing up for include All identified problems below ,depression ,gastric reflux and other (migraine, IBS, ddd). blood pressure range : and weight :. Note for Follow up for chronic medical issues: am itlevona some help but still issues with her bowels- we discussed her mood and she does feel there is some anxiety- that could be better treated- son going through a divorce- her gerd is good - migraines n o change- lesion on wrist went away- and is having laSER THERAPY on her legs, [ADDITIONAL REASON] Follow up, Laboratory Test Results - Date: (03/07/07). Encounter Diagnosis: CONSTIPATION, UNSPECIFIED (564.00), GERD (530.81), DEPRESSIVE DISORDER, NOT ELSEWHERE CLASSIFIED (311.), Degenerative Disc Disease (722.6), Migraine (346.80) [facility] Office Visit On: 18-Nov-2006 9:36 Encounter Diagnosis: superficial thrombophlebitis End: 18-Nov-2006 10:16 [facility] Office Visit On: 13-Nov-2006 16:08 Encounter Reason: Follow up for chronic medical issues - The patient feels well with no complaints ,has good energy level and is sleeping well (with OTC sleep aide). Patient has been compliant with instructions. Current End: 13-Nov-2006 16:44 medication use: no side effects. Patient sleeps 7 hours per night. Impact of disease: no overall impact. Nutrition: balanced diet. The medical issues the patient is following up for include All identifi ed problems below ,depression ,gastric reflux and other (DDD). Note for Follow up for chronic medical issues: cheo tolerate topamax- made her constipated- getting tension camargo and still migraines- fe els good otherwise and feels like she wants to just try the riboflavin and see how she does- wrist doesnt bother her and doesnt feel she needs to go furhter with this- mood has been good- now on miralax and seeing how that works- wants to try amitiziaEncounter Diagnosis: GERD (530.81), Low HDL (272.5), Migraine (346.80), Irritable bowel syndrome (564.1), cacified lesion on left wrist- get xray- if neg to nel, DEPRESSIVE DISORDER, NOT ELSEWHERE CLASSIFIED (311.) [facility] Office Visit On: 12-Aug-2006 16:31 Encounter Reason: Follow up for chronic medical issues - The patient feels well with minor complaints (look @ bump on left wrist) ,has good energy level and is sleeping well. Patient has been compliant with instructions. End: 12-Aug-2006 17:29 Current medication use: no side effects and compliant with dosing regimen. Patient sleeps 7 hours per night. Nutrition: balanced diet ,supplemental vitamins and low salt diet. The medical issues the pa kristy is following up for include depression ,gastric reflux and other (migraine). weight :. 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 Encounter Diagnosis: Migraine (346.80), GERD (530.81), Low HDL (272.5), cacified lesion on left wrist- get xray- if neg to nel [facility] Office Visit On: 10-May-2006 10:07 Encounter Reason: new patient female physical - General health: feels well with minor complaints. The patient's appetite is normal. Nutrition: appropriate balanced diet. Exercises 3 days per week. Sleeps on average 7 nino End: 13-May-2006 7:12 rs per night. Normal bowel and bladder habits. Safety measures include appropriate use of safety belts. There are no current emotional problems. [facility] Payers Medicare[employer]/Supplement Fabricio Torres; ban guarantor
--- OUTSIDE RECORDS SUMMARY | 2018-10-09 01:34 | XMS RPT_ITS | Continuity of Care Document ---
:1950 Author Organization [facility] Address [address] [place] [address] Phone Care Team Providers Name Role Phone Rylee Bales DO Unavailable Jonas KRISHNAN, Fadumo Porter Unavailable Dr. Joaquim Hough Unavailable Deuce Soto Unavailable Herb KRISHNAN, Jj hPillips Unavailable Merari Lam Unavailable [facility], [facility] Unavailable Binta Cruz Unavailable Unavailable Makenzie Armenta [...] 714.9) Comments: see Dr. deutsch. 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 from Lupus. get eye exam and [...] days Quantity: 30 {Tablet} Refills: 1 Ordered:31-Jan-2018 iHro Bales DO, DO, Kathleen Start : 31-Jan-2018 Active Amitiza 24 MCG Oral Capsule 1 (one) Capsule twice daily for 0 days Quantity: 180 {Capsule} Refills: 3 Ordered:14-Apr-2018 Hiro Balse DO, DO, Kathleen Start : 14-Apr-2018 Active [...] 25 MCG/ACT (0.025%) Nasal Solution 1 (one) [place] each nostril qd for 0 days Quantity: 1 {[place]} Refills: 2 Ordered:12-Feb-2018 MELISSA Carreno Start : [...] Quantity: 20 {Tablet_ER_24HR} Refills: 0 Ordered:12-Oct-2008 Zabrina Farmer Start : 12-Oct-2008 End : 19-Nov-2008 Inactive [...] Nasonex 50 MCG/ACT Nasal Suspension 1 (one) [place] qd each nostril for 0 days Quantity: [...] discontinued per [employer]. CALCIUM 500 + D, [id number] (PO Tab) 2 tabs qd for 0 [...] order discontinued per [facility]. VITAMIN D (ERGOCALCIFEROL), [id number] (Oral Capsule) 1 (one) Capsule Capsule once [...] Summary (1) Result: Comments: See Note; NOTES: [facility] 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 Still avoid pulling weeds and heavy lifting [...] please feel free to call me at [phone]. Thank you for the referral of this patient. Sincerel y, Mitch Leonard, HARDIK, OC <Electronically signed by Mitch Leonard DPT, CÉSAR, CSCS> 03/20/18 0932 CC: Rylee Bales DO EBG Signed 04-Mar-2018 Re-Evaluation - PT (1) Result: Comments: See Note; NOTES: [facility] [address] [place] [address] Fax REEVALUATION / MEDICARE RECERTI FICATION PHYSICAL THERAPY MR#: [id number] Acct: [id number] Name: SUSANNE TORRES Rep #: [id number] : 1950 68 From: Mitch Leonard DPT, [...] the blue while I was sitting at [employer] my shldr just starting hurting worse. Reports the pain to be located in the front and under the shldr joint. Objective/Function: Review of postural maintainence so as to not exacerbate symptoms while sitting at [employer]. Pt states, I guess I wasn't really paying a ttention to how I was sitting. Minimal progression today in reps of current exc, however able to tolerate newly added shldr flexion and ABD exc with wts against gravity. While working on [employer], pt tripped on lower portion of machine [...] do not hesitate to contact me at [phone] by phone or if you have questions or concerns regarding this new plan of care! Sincerely, Mitch Leonard, LILIAT, OC <Electronically signed by Mitch Leonard DPT, OCS, CSCS> 0 03/04/18 0939 CC: Rylee Bales DO EBG Signed For Medicare only, by signing this I certify the plan of care. Physicians Signature Date 19-Feb-2018 Inital Evaluation (1) - PT Result: Comments: See Note; NOTES: [facility] [address] [place] [address] Fax REHABILITATION SERVICES INITIAL EVALUATION MR#: [id number] Acct: [id number] Name: SUSANNE TORRES Rep #: [id number] : 1950 68 From: Mitch Leonard DPT, [...] to be FAXED BACK to us at [phone] for Medicare purposes. Please let me know if there are questions or concerns regarding this plan of care. Physician Signature: Date: <Electronically signed by Mitch Leonard DPT, OCS, CSCS> 02/19/18 0722 CC: Rylee Bales DO EBG Signed For Me dicflor only, by signing this I certify the plan of care. Physicians Signature Date 13-Feb-2018 Shoulder min 2 Views Result: Comments: See Note; NOTES: [facility] Imaging Services [address] [place] [address] Shoulder min 2 Views MR#: [id number] Acct: [id number] Name: SUSANNE TORRES Rep #: [id number] : 1950 F 68 From: Hector Oliveira MD PCP: Rylee Bales DO Status: REG CLI Study: Shoulder min 2 Views Date of Exam: 02/13/18 Exam# [id number] Ordering Dr: Rylee Bales DO STUDY: X-R [...] Service support , CC: Rylee Bales DO Tube Station Attendant: Signed 04-Feb-2018 Thyroid Result: Comments: See Note; NOTES: [facility] Imaging Services [address] [place] [address] Thyroid MR#: [id number] Acct: [id number] Name: SUSANNE TORRES Rep #: [id number] : 0 1950 F 68 From: Bayron Payan MD PCP: Rylee Bales DO Status: REG CLI Study: Thyroid Date of Exam: 02/04/18 Exam# [id number] Ordering Dr: Rylee Bales DO STUDY: THYROID [...] Bayron Payan MD at 10:35 EDT Tel [phone], Service support , CC: Rylee Bales DO Tube Station Attendant: Signed 16-Oct-2017 PT D/C Summary (1) Result: Comments: See Note; NOTES: [facility] [address] [place] [address] Fax REHABILITATION SERVICES DISCHAR GE SUMMARY MR#: [id number] Acct: [id number] Name: SUSANNE TORRES Rep #: [id number] : 1950 67 From: Martín Arteaga DPT [...] please feel free to call me at [phone]. Thank you for the referral of this patient. Sincer Martín damian <Electronically signed by Martín Arteaga DPT> 10/16/17 0958 CC: Rylee Bales DO CLS Signed 12-Oct-2017 Urgent Care Visit Report Result: Comments: See Note; NOTES: [facility] [address] [place] [address] OFFICE VISIT Date of Service: 10/12/17 MR#: [id number] Acct: [id number] Name: SUSANEN TORRES Ivan Rep #: [id number] : 1950 Provider: Lillian Myers Age/Sex: 67/F Location: [facility] Status: Signed Intake Vital Signs10/12/17 Height 5 [...] any improvement advised that she see her mechanical service technician. Medications New: Coding Level of Care Code [...] General: cooperative, no acute distress, well developed [facility] Head: normal to inspection, atraumatic Ears: hearing [...] any improvement advised that she see her mechanical service technician. Medications New: Coding Level of Care Code Off vis,est,level 4 Diagnoses Cellulitis of other specified site L03.818 Site of cell ulitis: other site 10/12/17 1020 <Electronically signed by Lillian FLORES> Date Lillian FLORES Cosdeaner Signatur e: Date (if applicable) CC: 24-Sep-2017 PT Communication Result: Comments: See Note; NOTES: [facility] [address] [place] [address] Fax REHABILITATION SERVICES PROGRES S NOTE MR#: [id number] Acct: [id number] Name: SUSANNE TORRES Rep #: [id number] [...] - PT Result: Comments: See Note; NOTES: [facility] [address] [place], [place] [address] Fax REHABILITATION SERVICES INITIAL EVALUATION MR#: [id number] Acct: [id number] Name: SUSANNE TORRES Rep #: [id number] : 1950 67 From: Martín Arteaga DPT [...] Response: No effect Lumbar Standing: Right Side [place] - Symptoms During Testing: No e ffect Lumbar Standing: Right Side [place] - Symptoms After Testing: No effect Lumbar Standing: Left Side [place] - Mechanical Response: No effect Lumbar Standing: Left Side [place] - Symptoms During Testing: No effect Lumbar Standing: Left Side [place] - Symptoms After Testing: No effect - [...] to be FAXED BACK to us at [phone] for Medicare purposes. Please let me know if there are questions or concerns regarding this plan of care. Physician Signature: Date: <Electronically signed by Martín Arteaga DPT> 09/18/17 1910 CC: Rylee Bales DO CLS Signed For Medicare only, by signing this I certify the plan of care. Physicians Signature Date 16-Aug-2017 Hand Min 3 Views Result: Comments: See Note; NOTES: [facility] Imaging Services [address] [place] [address] Hand Min 3 Views MR#: [id number] Acct: [id number] Name: SUSANNE TORRES Rep #: [id number] : 1950 F 67 From: Bayron Payan MD PCP: Rylee Bales DO Status: REG CLI Study: Hand Min 3 Views Date of Exam: 08/16/17 Exam# [id number] Ordering Dr: Rylee Bales DO STUDY: X-RA [...] Bayron Payan MD at 13:43 EST Tel [phone], Service support , CC: Rylee Bales DO Tube Station Attendant: Signed 25-Jul-2017 SCREENING MAMM (CAD), BILAT Result: Comments: See Note; NOTES: [facility] Services [address] [place] [address] SCREENING MAMM (CAD), BILAT MR#: [id number] Acct: [id number] Name: SUSANNE TORRES Rep #: [id number] : 1950 F 67 From: Bayron Payan MD PCP: Rylee Bales DO Status: REG CLI Study: SCREENING MAMM (CAD), BILAT Date of Exam: 07/25/17 Exam# [id number] Ordering Dr: Sherrell Bales DO MAMMOGRAPHY - [...] delay biopsy of a clinically suspicious abnormality. [id number] Electronically Signed: Bayron Payan MD at 14:18 EST Tel [phone], Service support , CC: Rylee Bales DO Tube Station Attendant: Signed 03-Jul-2017 Urgent Care Visit Report Result: Comments: See Note; NOTES: [facility] [address] [place] [address] OFFICE VISIT Date of Service: 07/03/17 MR#: [id number] Acct: [id number] Name: SUSANNE TORRES Rep #: [id number] : 1950 Provider: Matt FLORES Age/Sex: 67/F Location: [facility] Status: Signed Intake Vital Signs07/03/17 Height 5 [...] (Cipro) administer within 120 minutes prior to [id number] mg PO BID 7 days ical incision Additional Comments UA dip = mod blood, mo d leukocytes. Cipro as prescribed today (per pt preference). Appropriate hygiene reinforced. Follow-up with PCP or software design manager 2-3 days should symptoms not improved, sooner should symptoms worsen or an y other concerns develop. Patient states acknowledging understanding of the above. Coding Level of Care Code Off vis,new,level 3 Diagnoses Urinary tract infection N39.0 07/03/17 1524 <Elect ronically signed by Matt FLORES> Date Matt Melo Signature: Date (if applicable) CC: 03-Jul-2017 Acute Abdomen Inc Chest Result: Comments: See Note; NOTES: [facility] Services [address] [place] [address] Acute Abdomen Inc Chest MR#: [id number] Acct: [id number] Name: SUSANNE TORRES Rep #: [id number] : 1950 F 67 From: Ross Javier DO PCP: Rylee Bales DO Status: REG CLI Study: Acute Abdomen Inc Chest Date of Exam: 07/03/17 Exam# [id number] Ordering Dr: Rylee Bales DO STUD Y: [...] Ross Javier DO at 11:58 EST Tel [phone], Serv ice support , CC: Rylee Bales DO Tube Station Attendant: Signed 02-Jul-2017 Abd Inc Decub and/or Erect Result: Comments: See Note; NOTES: [facility] [address] [place] [address] Abd Inc Decub and/or Erect MR#: [id number] Acct: [id number] Name: SUSANNE TORRES Rep #: [id number] : 1950 F 67 From: Ross Javier DO PCP: Rylee Bales DO Status: REG CLI Study: Abd Inc Decub and/or Erect Date of Exam: 07/02/17 Exam# [id number] Ordering Dr: Rylee Bales DO STUDY: X-RAY [...] Ross Javier DO at 11:35 EST Tel [phone], Service support , Fax CC: Rylee Bales DO Tube Station Attendant: Signed 03-Jan-2017 Thyroid Result: Comments: See Note; NOTES: [facility] [address] [place] [address] Verdana 4d Thyroid MR#: [id number] Acct: [id number] Name: SUSANNE TORRES Rep #: [id number] : 1950 F 66 From: Roselia Huerta MD PCP: Rylee Bales DO Status: REG CLI Study: Thyroid Date of Exam: 01/03/17 Exam# [id number] Ordering Dr: Rylee Bales DO STUDY: THYROID [...] Service support , CC: Rylee Bales DO Tube Station Attendant: Signed 15-Aug-2016 Venous Duplex Lower Extremity Result: Comments: See Note; NOTES: [facility] Cardiovascular Services [address] [place] [address] Venous Duplex US, Unilateral 08/15/16 1054 MR#: [id number] Acct: [id number] Name: SUSANNE COLMENARES Rep #: [id number] : 1950 66 From: Bradford Crowe MD [...] Dictated: 08/15/16 1054 Date Transcribed: 08/15/16 1228 Tube Station Attendant: Signed 24-Jul-2016 SCREENING MAMM (CAD), BILAT Result: Comments: See Note; NOTES: [facility] [address] [place] [address] Verdana 4d SCREENING MAMM (CAD), BILAT MR#: [id number] Acct: [id number] Name: MARYANA TORRES Rep #: [id number] : 1950 F 66 From: Ross Javier DO PCP: Rylee Bales DO Status: REG CLI Study: SCREENING MAMM (CAD), BILAT Date of Exam: 07/24/16 Exam# [id number] Ordering Dr: Rylee Bales DO MAMMOGRAPHY - [...] delay biopsy of a clinically suspicious abnormality. [id number] Electronically Signed: Ross Javier DO at 16:06 EST Tel [phone], Service support [phone], CC: Rylee Bales DO Tube Station Attendant: Signed 17-Jul-2016 DXA BONE DENS W/VERT FX ASMT Result: Comments: See Note; NOTES: [facility] Services [address] [place] [address] Verdana 4d DXA BONE DENS W/VERT FX ASMT MR#: [id number] Acct: [id number] Name: Vincent TORRES DelmiMOUSTAPHA Ivan Rep #: [id number] : 1950 F 66 From: Bayron Payan MD PCP: Rylee Bales DO Status: REG CLI Study: DXA BONE DENS W/VERT FX ASMT Date of Exam: 07/17/16 Exam# [id number] Ordering Dr : Rylee Bales DO STUDY: [...] Bayron Payan MD at 14:09 EST Tel [phone], Service support [phone], CC: Rylee Bales DO Tube Station Attendant: Signed 01-Mar-2016 ELECTROCARDIOGRAM, COMPLETE (ECG) (18470) Comments: sinus beverly no acute chg Result: [MEASUREMENTS ANALYSIS] Date of Test: 03/01/2016 13:45:12; Heart Rate: 59; DE Interval: 154; QRS: 92; QT Interval: 426; Corrected QT Interval (QTc): 425; P Wave Roulette: 33; QRS Wave Roulette: 33; T Wave Roulette: 90; Blood Pressure: 120/78 [ECG DIAGNOSTIC STATEMENTS] Date of Test: 03/01/2016 13:45:12; Summary: Sinus Bradycardia - Nonspecific T-abnormality. ABNORMAL 01-Nov-2015 Lumbar Spine 2 or 3 Views Result: Comments: See Note; NOTES: [facility] [address] [place] [address] Verdana 4d Lumbar Spine 2 or 3 Views MR#: [id number] Acct: [id number] Name: SUSANNE COLMENARES Rep #: [id number] : 1950 F 65 From: Bayron Payan MD PCP: Manda Higginbotham MD Status: REG CLI Study: Lumbar Spine 2 or 3 Views Date of Exam: 11/01/15 Exam# [id number] Tanya gilmore Dr: Ryan Ortiz MD STUDY: [...] Bayron Payan MD at 10:21 EDT Tel [phone], Service support [phone], RAD/Lumbar Spine 2 or 3 Views IMPRESSION: Degenerative changes of the spine, as detai led above. Electronically Signed: Bayron Payan MD at 10:21 EDT Tel [phone], Service support [phone], CC: Ryan Ortiz MD; Manda Higginbotham MD Tube Station Attendant: Signed 13-Oct-2015 Spine Cervical (Routine) Result: Comments: See Note; NOTES: [facility] [address] [place] [address] Verdana 4d Spine Cervical (Routine) MR#: [id number] Acct: [id number] Name: SUSANNE KATE Rep #: [id number] : 1950 F 65 From: Tavo Perez MD PCP: Manda Higginbotham MD Status: REG CLI Study: Spine Cervical (Routine) Date of Exam: 10/13/15 Exam# [id number] Ordering Dr: Ryan Ortiz MD STUDY: MRI [...] at 19:04 EDT Tel , Service support [phone], CC: Ryan Ortiz MD; Manda Higginbotham MD Tube Station Attendant: Signed 19-Jul-2015 Bilat Scrn Digital AND CAD Result: Comments: See Note; NOTES: [facility] Services [address] [place] [address] Verdana 4d Bilat Scrn Digital AND CAD MR#: [id number] Acct: [id number] Name: SUSANNE TORRES Rep #: [id number] : 1950 F 65 From: Hector Oliveira MD PCP: Manda Higginbotham MD Status: REG CLI Study: Bilat Scrn Digital AND CAD Date of Exam: 07/19/15 Exam# [id number] Ordering Dr: Manda Higginbotham MD MAMMOGRAPHY - [...] delay biopsy of a clinically suspicious abnormality. [id number] Electronically Signed: Luis Eduardo Oliveira MD at 15:55 EST Te l , Service support [phone], CC: Madna Higginbotham MD Tube Station Attendant: Signed 12-Jul-2015 PT D/C of Non Returning Pt. Result: Comments: See Note; NOTES: [facility] [address] [place] [address]. [address] [place], [place] [address] Fax REHABILITATION SE RVICES DISCHARGE SUMMARY MR#: [id number] Acct: [id number] Name: SUSANNE TORRES Rep #: [id number] : 1950 65 From: Tatiana Wagner Referring [...] and Lateral Result: Comments: See Note; NOTES: [facility] Services [address] [place] [address] Verdana 4d Chest PA and Lateral MR#: [id number] Acct: [id number] Name: SUSANNE PADILLA Rep #: [id number] : 1950 F 65 From: Bayron Payan MD PCP: Manda Higginbotham MD Status: REG CLI Study: Chest PA and Lateral Date of Exam: 06/13/15 Exam# [id number] Ordering Dr: Marlen Rosenbaum STUDY: X-RAY CHEST [...] Bayron Payan MD at 14:40 EST Tel [phone], Service support [phone], 0079 RAD/Chest PA and Lateral IMPRESSION: No acute abnormality is seen. Electronically Signed: Bayron Payan MD at 14:40 EST Tel [phone], Service support [phone], CC: Marlen Rosenbaum; Manda Higginbotham MD Tube Station Attendant: Signed 14-May-2015 Operative Report Result: Comments: See Note; NOTES: [facility] Medical Records Department [address] [place] [address] Operative Report MR#: [id number] Acct: [id number] Name: MARYANA TORRES Rep #: [id number] : 1950 65 From: Deion Gomez MD PCP: Manda Higginbotham MD Status: [facility] DATE OF SERVICE: 05/13/2015 DATE OF SERVICE: [...] get a guidewire past this, then, a 12-Ukrainian ureteral balloon dilator and the distal ureter [...] condition. Deion Gomez MD T: NTS JOB: [id number] 05/14/15 1121 <Electronically si gned by Deion Gomez MD> Date Deion Gomez MD Cosigner Signature (If Indicated): Date CC: Manda Higginbotham MD; Deion Gomez MD Date Dictated: 05/13/151357 Date Transcribed: 05/13/151357 Tube Station Attendant: Signed 13-May-2015 Discharge Instruction Result: Comments: See Note; NOTES: [facility] Medical Records Department [address] [place] [address] Instructions for Home/Discharge Instructions 05/13/15 1400 MR#: [id number] Acct: [id number] Name: SUSANNE TORRES Rep #: [id number] : 1950 65 From: Deion Gomez MD PCP: Manda Higginbotham MD Status: REG [facility] Discharge Diet: No Restrictions Discharge Activ ity: [...] Please Follow Up With: Deion Gomez - When: CALL SOON FOR AN APPT IN FEW WKS, TO PAGE 05/13/15 9637 <Electronically signed by Deion Gomez MD> Date Deion Gomez MD CC: Manda Higginbotham MD 12-May-2015 Abdomen Single View Result: Comments: See Note; NOTES: [facility] Imaging Services [address] [place] [address] Verdana 4d Abdomen Single View MR#: [id number] Acct: [id number] Name: SUSANNE RAMIREZ Rep #: [id number] : 1950 F 65 From: Jack Calderon MD PCP: Manda Higginbotham MD Status: REG CLI Study: Abdomen Single View Date of Exam: 05/12/15 Exam# [id number] Ordering Dr: Deion Hernandez MD STUDY: X-RAY [...] Jack Calderon MD at 23:58 EDT Tel [phone], Service support [phone], RAD/Abdomen Single View IM PRESSION: 5 mm left renal stone. Electronically Signed: Jack Calderon MD at 23:58 EDT Tel [phone], Service support [phone], CC: Manda Higginbotham MD; Deion Gomez MD Tube Station Attendant: Signed 02-May-2015 Abdomen Single View Result: Comments: See Note; NOTES: [facility] Services [address] [place] [address] Radiology Report MR#: [id number] Acct: [id number] Name: SUSANNE TORRES Re p #: [id number] : 1950 F 65 From: Hector Cervantes MD PCP: Manda Higginbotham MD Status: REG CLI Study: Abdomen Single View Date of Exam: 05/02/15 Exam# [id number] Ordering Dr: Deion Gomez MD STUDY: X-RAY [...] MD at 16:59 EDT , Service support [phone], RAD/Abdomen Sing le View IMPRESSION: 1. 5 [...] MD at 16:59 EDT , Service support [phone], CC: Manda Higginbotham MD; Deion Gomez MD Tube Station Attendant: Signed 29-Mar-2015 Extremity Lower without Contra Result: Comments: See Note; NOTES: [facility] Services [address] [place] [address] CAT Scan Report MR#: [id number] Acct: [id number] Name: SUSANNE TORRES Rep #: [id number] : 1950 F 65 From: Roselia Huerta MD PCP: Manda Higginbotham MD Status: REG CLI Study: Extremity Lower without Contra Date of Exam: 03/29/15 Exam# [id number] Ordering Dr: Chirag Lee DPM STUDY: CT [...] at 13:47 EDT Tel , Service support [phone], CC: Manda guevara MD; Chirag Lee DPM Tube Station Attendant: Signed 22-Mar-2015 Inital Evaluation - PT Result: Comments: See Note; NOTES: [facility] [address] [place] [address] Fax REHABILITATION SERVICES INITIAL EVALUATION MR#: [id number] Acct: [id number] Name: SUSANNE TORRES Rep #: [id number] : 1950 65 From: Tatiana Wagner Referring [...] to be FAXED BACK to us at [phone] for Medicare purposes. Please let me know if there are questions or concerns regarding this plan of care. Physician Signature: Date: <Electronically signed by Tatiana Wagner > 03/22/15 1556 CC: Manda Higginbotham MD; Chirag Lee DPM Signed For Medicare only, by signing this I certify the plan of care. Physicians Signature Date 31-Dec-2014 Operative Report Result: Comments: See Note; NOTES: [facility] Medical Records Department [address] [place] [address] Operative Report MR#: [id number] Acct: [id number] Name: SUSANNE TORRES Rep #: [id number] : 1950 64 From: Chirag Lee DPM PCP: Manda Higginbotham MD Status: [facility] DATE OF SERVICE: 12/31/2014 DATE OF SERVICE: [...] LOSS: Less than 1 mL. MATERIALS: [employer] 5.5 mm partially threaded screw with [...] mm screw was placed across the f [facility] metatarsal fracture site intramedullary. Of noted however [...] needed. Chirag Lee DPM T: TITI JOB: [id number] 12/31/14 1603 &# 60;Electronically signed by Chirag Lee DPM> Date Chirag Lee DPM CC: Manda Higginbotham MD; Sunday Lee MD Date Dictated: 06/07/05 915 Date Transcribed: 12/31/14914 Tube Station Attendant: Signed 31-Dec-2014 Foot 2 Views Result: Comments: See Note; NOTES: [facility] Imaging Services [address] [place] [address] Radiology Report MR#: [id number] Acct: [id number] Name: SUSANNE TORRES Rep #: [id number] : 1950 F 64 From: Bayron Payan MD PCP: Manda Higginbotham MD Status: [facility] Study: Foot 2 Views Date of Exam: 12/31/14 Exam# [id number] Ordering Dr: Chirag Lee DPM STUD Y: [...] Bayron Payan MD at 13:09 EDT Tel [phone], Service support [phone], RAD/Foot 2 Views IMPRESSION: Satisfactory ORIF of the transverse fracture of the base of the fifth metatarsal. Electronically Signed: Bayron sosa MD at 13:09 EDT Tel [phone], Service support [phone], CC: Manda Higginbotham MD; Sunday Lee MD Tube Station Attendant: Signed 31-Dec-2014 Discharge Instruction Result: Comments: See Note; NOTES: [facility] Medical Records Department [address] [place] [address] Instructions for Home/Discharge Instructions 12/31/1432 MR#: [id number] ct: [id number] Name: SUSANNE TORRES Rep #: [id number] : 1950 64 From: Chirag Lee DPM PCP: Manda Higginbotham MD Status: REG [facility] Discharge Diet: Light diet - advance as [...] each PO DAILY Please Follow Up With: Chirag Lee When: within 1 week, sooner if needed 12/31/14 0834 <Electronically signed by Chirag Lee DPM> Date Chirag Lee DPM CC: Manda Higginbotham MD 30-Dec-2014 Foot 2 Views Result: Comments: See Note; NOTES: [facility] Imaging Services [address] [place] [address] Radiology Report MR#: [id number] Acct: [id number] Name: SUSANNE TORRES Rep #: [id number] : 1950 F 64 From: Bayron Payan MD PCP: Manda Higginbotham MD Status: [facility] Study: Foot 2 Views Date of Exam: 12/31/14 Exam# [id number] Ordering Dr: Chirag Lee DPM STUD Y: [...] Morgan Payan MD at 13:02 EDT Tel [phone], Service support [phone], RAD/Foot 2 Views IMPRESSION: Satisfactory reduction of the transvers e fracture at the base of the fifth metatarsal with screw fixation. Electronically Signed: Bayron Payan MD at 13:02 EDT Tel [phone], Service support [phone], Fax CC: Manda Higginbotham MD; Sunday Lee MD Tube Station Attendant: Signed 24-Sep-2014 Abdomen Single View Result: Comments: See Note; NOTES: [facility] [address] [place] [address] Radiology Report MR#: [id number] Acct: [id number] Name: SUSANNE TORRES Rep #: [id number] : 1950 F 64 From: Agustin Washington MD PCP: Manda Higginbotham MD Status: REG CLI Study: Abdomen Single View Date of Exam: 09/24/14 Exam# [id number] Ordering Dr: Deion Gomez MD UDY: X-RAY [...] at 17:02 EST Tel , Service support [phone], Fax RAD/Abdomen Single View IMPRESSION: 5 mm left upper pole stone. Other renal stones are not seen but not excluded. Electronically Signed: Agustin Washington MD at 17:02 EST Tel , Service support [phone], CC: Manda Higginbotham MD; Deion Gomez MD Tube Station Attendant: Signed 04-Aug-2014 Abdomen/Pelvis without Cont Result: Comments: See Note; NOTES: [facility] [address] [place] [address] CAT Scan Report MR#: [id number] Acct: [id number] Name: SUSANNE TORRES Rep #: [id number] : 1950 F 64 From: Bayron Payan MD PCP: Manda Higginbotham MD Status: REG CLI Study: Abdomen/Pelvis without Cont Date of Exam: 08/04/14 Exam# [id number] Ordering Dr: Deion Gomez MD STUDY: CT [...] Bayron Payan MD at 11:33 EST Tel [phone], Service support [phone], CC: Manda Higginbotham MD; Deion Gomez MD Tube Station Attendant: Signed 13-Jul-2014 Vert Fx Asess/Lat Bone Den(H) Result: Comments: See Note; NOTES: [facility] [address] [place] [address] Bone Density Report MR#: [id number] Acct: [id number] Name: SUSANNE TORRES Rep # : [id number] : 1950 F 64 From: Bayron Payan MD PCP: Manda Higginbotham MD Status: REG CLI Study: Vert Fx Asess/Lat Bone Den(H) Date of Exam: 07/13/14 Exam# [id number] Ordering Dr: Iona Higginbotham MD STUDY: DUAL [...] Bayron Payan MD at 13:17 EST Tel [phone], Service support [phone], CC: Manda Higginbotham MD Tube Station Attendant: Signed 13-Jul-2014 Vert Fx Asess/Lat Bone Den(H) Result: Comments: See Note; NOTES: [facility] [address] [place] [address] Bone Density Report MR#: [id number] Acct: [id number] Name: SUSANNE TORRES Rep # : [id number] : 1950 F 64 From: Bayron Payan MD PCP: Manda Higginbotham MD Status: REG CLI Study: Vert Fx Asess/Lat Bone Den(H) Date of Exam: 07/13/14 Exam# [id number] Ordering Dr: Iona Higginbotham MD ADDENDUM by Bayron Payan MD on 08/03/14 at 0947 ADDENDUM This is an addendum r eport. A vertebral assessment study was obtained as well. There is moderate degree of loss of height of the T7 vertebrae. Minimal loss of white of the superior plate of the T11 vertebrae. Electron ically Signed: Bayron Payan MD at 9:47 EST Tel [phone], Service support [phone], 08/03/14 09 Date cc: Manda Higginbotham MD [...] Michael Payan MD at 13:17 EST Tel [phone], Service support [phone], CC: Manda Higginbotham MD Tube Station Attendant: Signed 13-Jul-2014 Pauline Tsang Digital AND CAD Result: Comments: See Note; NOTES: [facility] [address] [place] [address] Breast Imaging Report MR#: [id number] Acct: [id number] Name: SUSANNE TORRES Rep #: [id number] : 1950 F 64 From: Hector Oliveira MD PCP: Manda Higginbotham MD Status: REG CLI Study: Pauline Tsang Digital AND CAD Date of Exam: 07/13/14 Exam# [id number] Ordering Dr: Manda Higginbotham MD MAMMOGRAPHY - [...] Eduardo Oliveira MD at 15:14 EST Tel [phone], Service support [phone], CC: Manda Higginbotham MD Tube Station Attendant: Signed 13-Jul-2014 Dexa Bone Density Study (HP) Result: Comments: See Note; NOTES: [facility] [address] [facility] [place] [address] Bone Density Report MR#: [id number] Acct: [id number] Name: SUSANNE TORRES Rep # : [id number] : 1950 F 64 From: Bayron Payan MD PCP: Manda Higginbotham MD Status: REG CLI Study: Dexa Bone Density Study (HP) Date of Exam: 07/13/14 Exam# [id number] Ordering Dr: Ap Higginbotham MD STUDY: DUAL [...] Bayron Payan MD at 13:24 EST Tel [phone], Service support [phone], CC: Manda Higginbotham MD Tube Station Attendant: Signed 02-Apr-2014 Pelvis 1 or 2 Views Result: Comments: See Note; NOTES: [facility] [address] [place] [address] Radiology Report MR#: [id number] Acct: [id number] Name: LUBASUSANNE C Rep #: [id number] : 1950 F 64 From: Ross Javier DO PCP: Manda Higginbotham MD Status: REG CLI Study: Pelvis 1 or 2 Views Date of Exam: 04/02/14 Exam# [id number] Ordering Dr: Peri Deutsch MD STUDY: X-RAY [...] Ross Javier DO at 20:24 EDT Tel [phone], Service support [phone], Fax CC: Manda Higginbotham MD; Peri Deutsch MD Tube Station Attendant: Signed 09-Jul-2013 Bilat Scrn Digital & CAD Result: Comments: See Note; NOTES: [facility] [address] [place] [address] Breast Imaging Report MR#: [id number] Acct: [id number] Name: SUSANNE TORRES Rep #: [id number] : 1950 F 63 From: Bayron Payan MD PCP: Status: REG CLI Exam# [id number] Ordering Dr: Manda Higginbotham MD MAMMOGRAPHY - [...] Bayron Payan M.D. at 10:52 EST T [phone], Service support [phone], CC: Manda Higginbotham MD Tube Station Attendant: Signed Immunization Name Dates Details Influenza (3 years and up) on: 23-May-2007 Comments: given 0.5cc im in left deltoid lot#[id number] exp.11/27- Influenza (3 years and up) on: 11-Jun-2008 Comments: inj given left deltoid no complicationslot:zkxqv231ozcaf:12/28 Influenza (3 years and up) on: 22-Apr-2009 Comments: Lot #: [id number] date: mount given: 0.5 mlRoute: IMSite [...] smoker Vital Signs Date Test Result Details 98-Dhb-461621:36 Temperature 98.4 f Comments: Method: Temporal Pulse [...] kg/m2 Body Surface Area Calculated 1.73 m2 42-Esm-598174:49 Temperature 97.2 f Comments: Method: Temporal Pulse [...] kg/m2 Body Surface Area Calculated 1.74 m2 48-Zdi-128295:07 Pulse 68 /min Comments: Pattern: Regular Respiration [...] 0.00 cm Results Date Description Value Details 12-Mhq-382605:12 CALCIFIDIOL (96559) VIT D 25 Comments: PATIENT NOT FASTINGPERFORMED BY: [facility] Iepgvb7628 [facility] [id number] Vitamin D, 25-Hydroxy 41.7 ng/mL (Normal) Range: 30.0-100.0 Comments: Vitamin D deficiency has been defined by the [place] of[place]icine and an Endocrine Society practice guideline as alevel of serum 25-OH vitamin D less than 20 ng/mL (1,2).The Endocrine Society went on to further define vitamin Dinsufficiency as a level between 21 and 29 ng/mL (2).1. IOM ([place] of Medicine). 2010. Dietary reference intakes for calcium and D. [place]: The National Academies Press.2. Micky MF, Jessenia SYKES, Katrin CAMARGO, et al. Evaluation, treatment, and prevention of vitamin D deficiency: an Endocrine Society clinical practice guideline. JCEM. 2010; 96(7):1911-30. 72-Lmy-448659:12 VITAMIN B-12 (CYANOCOBALAMIN) Comments: PATIENT NOT FASTINGPERFORMED BY: CB [facility] Nnbyxr0710 [address] RoadDublin [place] [id number] (82860) Vitamin B12 459 pg/mL (Normal) Range: 232-1245 64-Vel-184650:12 TSH (14797) Comments: PATIENT NOT FASTINGPERFORMED BY: CB [facility] Fjjaff5204 Walton RoadDublin [place] [id number] TSH 2.120 {uIU/mL} (Normal) Range: 0.450-4.500 88-Bcw-719125:12 SED RATE ERYTHROCYTE (68453) Comments: PATIENT NOT FASTINGPERFORMED BY: CB [facility] Kqepop7755 Walton RoadDublin [place] [id number] Sedimentation Rate-Westergren 2 mm/h (Normal) Range: 0-40 82-Tvj-866571:12 RHEUMATOID FACTOR-QUANT (82441) Comments: PATIENT NOT FASTINGPERFORMED BY: CB [facility] Vrlkaa3953 Walton RoadDublin [place] [id number] RA Latex Turbid. <10.0 {IU/mL} (Normal) Range: 0.0-13.9 03-Jqz-140659:12 METABOLIC PANEL, COMPREHENSIVE Comments: PATIENT NOT FASTINGPERFORMED BY: CB [facility] Qosfix8558 [address] RoadDublin [place] [id number] (15165) ALT (SGPT) 19 [iU]/L (Normal) Range: 0-32 [...] 8-27 Glucose 92 mg/dL (Normal) Range: 65-99 09-Upz-437630:12 C-REACTIVE PROTEIN (72232) Comments: PATIENT NOT FASTINGPERFORMED BY: [facility] Rnmchz6991 [facility] [id number] C-Reactive Protein, Quant 1.2 mg/L (Normal) Range: 0.0-4.9 62-Gnj-746490:12 CBC (AUTO) (96475) Comments: PATIENT NOT FASTINGPERFORMED BY: [facility] CenterVblpyz[address] [facility] [id number] Platelets 212 {x10E3/uL} (Normal) Range: 150-379 RDW 13.9 % (Normal) Range: 12.3-15.4 MCHC 33.7 g/dL (Normal) Range: 31.5-35.7 MCH 30.8 pg (Normal) Range: 26.6-33.0 MCV 91 fL (Normal) Range: 79-97 Hematocrit 40.3 % (Normal) Range: 34.0-46.6 Hemoglobin 13.6 g/dL (Normal) Range: 11.1-15.9 RBC 4.42 {x10E6/uL} (Normal) Range: 3.77-5.28 WBC 4.8 {x10E3/uL} (Normal) Range: 3.4-10.8 38-Azu-008139:12 BIBIANA (ANTINUCLEAR ANTIBODY) Comments: PATIENT NOT FASTINGPERFORMED BY: [facility] Gfhjle3451 [facility] [id number] (45038) BIBIANA Direct Negative (Normal) 08-Lcc-852241:08 Miscellaneous Lab Procedure Comments: Comments: [id number] TRANGLUTAMINASE SER FZTest(s) Ordered: [id number] [facility]IN[facility] [address]cc[address] [place], [address] [facility] Comments: TEST RESULT LIMITSTransglutaminase Ab IgG/M/ATragl IgG <1.2 U/mL 0.0 - 6.0 Reference Range Negative < 6.0 U/mL Weak Positive LAB (Normal) 6.0 - 9.0 U/mL Positive > 9.0 U/mLTragl IgM 2.0 U/mL 0.0 - 12.4 Reference Range Negative < 9.6 U/mL Equivocal 9.6 - 12.4 TEST U/mL Positive > 12.4 U/mLThe performance characteristics of the TransglutaminaseIgM assay was validated by [facility]. [employer] FDA has not approved or cleared this test. Th e resultsof this assay can be used for clinical diagnosis withoutFDA approval. [facility]. is a CLIAcertified, CAP accredited laboratory for performing highcomplexity assays such as this o ne.Tragl IgA < 1.2 U/mL 0.0 - 4.0 Reference Range Negative < 4.0 U/mL Weak Positive 4.0 - 10.0 U/mL Positive > 10.0 U/mLComment_ TESTING PERFORMED AT [facility]. ORIGINAL REPORT ON FILE IN LAB CONTAINS ADDITIONAL TEST SITE INFORMATION. 39-Adx-460936:30 CBC-Complete Blood Cnt No Diff Comments: [facility] [address] [place], [address] MPV 9.8 fL (Normal) Range: [...] 4.2-5.4 WBC 6.0 K/mm3 (Normal) Range: 4.4-11.0 14-Ysb-389398:30 Endomysial Antibody IgA Comments: [facility] (refer to report for specific site)refer to report for address and phone number ENDOMYSIAL IGA Negative (Normal) 55-Pkt-814723:30 Thyroglobulin Antibody Comments: [facility] (refer to report for specific site)refer to report for address and phone number TG AB 1.1 {IU/mL} (Abnormal) Range: 0.0-0.9 Comments: Thyroglobulin Antibody measured by [email or web address] at: CB - [facility] [address] [id number] Director: Joaquim Barrett PhD, Phone: [phone] 23-Mmt-18800:23 CBC-Complete Blood Cnt No Diff Comments: [facility] [address] [place], [address] MPV 9.5 fL (Normal) Range: [...] K/mm3 (Abnormal) Range: 4.4-11.0 :23 Magnesium Comments: [facility] [address] [place], [id number] MG 2.3 mg/dL (Normal) Range: 1.6-2.6 :23 Microalb:Creat Ratio,Random UR Comments: [facility] [address] [place], [address] MALB:CREAT 5.6 {mg/g_CRE} (Normal) MICROALBUMIN,UR 5.3 mg/L (Normal) UR CREAT 95.70 mg/dL (Normal) :23 PTHIN 78.4 pg/mL (Normal) Comments: [facility] [address] [place], [id number] Range: 18.4-80.1 :23 Renal Profile Comments: [facility] [address] [place], [address] CO2 28.0 mmol/L (Normal) Range: 21.0-32.0 CL [...] Comments: Please note revised GLUCOSE reference range hafmmfqpq68/02/2018. 32-Wul-15573:23 Vitamin D,25 Hydroxy Comments: [facility] [address] [facility] [address] [place], [place], [address] Vitamin D 25-OH 34.7 ng/mL (Normal) Range: 29.95-100.01 Comments: Vitamin D 25(OH) Status Range Deficiency <20 ng/mL (50nmol/L) Insuffciency 20 - 30 ng/mL (50 - 75 nmol/L) Sufficiency 30 - 100 ng/mL (75 - 250 nmol/L) Toxicity >100 ng/mL (>250 nmol/L) 92-Tje-789254:19 CBC W/Diff, Automated Comments: [facility] [address]mjvwlptm[address] [facility] [place], [address] Absolute Lymph 1.25 {X10_3/ul} (Normal) [...] 4.2-5.4 WBC 3.9 K/mm3 (Abnormal) Range: 4.4-11.0 15-Btk-435265:19 Endomysial Antibody IgA Comments: [facility] (refer to report for specific site)refer to report for address and phone number ENDOMYSIAL IGA Negative (Normal) Comments: Performed at: [address] [id number] Director: Joaquim Barrett PhD, Phone: [phone] 29-Qxx-361554:19 t-Transglutaminase IgA Comments: [facility] (refer to report for specific site)refer to report for address and phone number tTG IGA <2 U/mL (Normal) Range: 0-3 Comments: Negative 0 - 3 Weak Positive 4 - 10 Positive >10 Tissue Transglutaminase (tTG) has been identified as the endomysial anti gen. Studies have demonstr- ated that endomysial IgA antibodies have over 99% specificity for gluten sensitive enteropathy. 89-Fqn-869267:00 Culture, Urine Comments: [facility] [address] [place], [address] CUUR See Note (Normal) Comments: Urine CultureCulture exhibits no growth. 70-Hya-73679:27 CBC-Complete Blood Cnt No Diff Comments: [facility] [address]fr[address]om[address] [place], [place], [address] MPV 10.4 fL (Normal) Range: 6.2-12.0 PLT [...] K/mm3 (Abnormal) Range: 4.4-11.0 :27 Magnesium Comments: [facility] [address] [place], [address] MG 2.1 mg/dL (Normal) Range: 1.8-2.4 :27 Microalb:Creat Ratio,Random UR Comments: [facility] [address] [place], [address] MALB:CREAT 4.6 {mg/g_CRE} (Normal) MICROALBUMIN,UR 8.6 mg/L (Normal) UR CREAT 188.00 mg/dL (Normal) :27 Renal Profile Comments: [address] [place], [place], [address] CO2 27.0 mmol/L (Normal) Range: 21.0-32.0 CL [...] 7-18 GLU 94 mg/dL (Normal) Range: 70-110 40-Cgk-49085:27 Vitamin D,25 Hydroxy Comments: [facility] [address] [place], [address] Vitamin D 25-OH 57.5 ng/mL (Normal) Comments: Vitamin D 25(OH) Status Range Deficiency <20 ng/mL (50nmol/L) Insuffciency 20 - 30 ng/mL (50 - 75 nmol/L) Sufficiency 30 - 100 ng/mL (75 - 250 nmol/L) Toxicity >100 ng/mL (>250 nmol/L) 7-Ndh-410432:15 TSH (96144) Comments: PATIENT NOT FASTINGPERFORMED BY: [facility] [address] [place] [id number] TSH 2.900 {uIU/mL} (Normal) Range: 0.450-4.500 9-Yam-908407:15 SED RATE ERYTHROCYTE (47554) Comments: PATIENT NOT FASTINGPERFORMED BY: [employer] [facility] Guavyv[address] JinnCommunity Healthin [place] [id number] Sedimentation Rate-Westergren 2 mm/h (Normal) Range: 0-40 9-Yhs-240552:15 C-REACTIVE PROTEIN (77258) Comments: PATIENT NOT FASTINGPERFORMED BY: [employer] [facility] Hxqoev[address] [facility] [place] [id number] C-Reactive Protein, Quant 1.4 mg/L (Normal) Range: 0.0-4.9 1-Dbo-228231:15 METABOLIC PANEL, COMPREHENSIVE Comments: PATIENT NOT FASTINGPERFORMED BY: [facility] Dvloni9638 [facility] [id number] (07139) ALT (SGPT) 10 [iU]/L (Normal) Range: 0-32 [...] Glucose, Serum 106 mg/dL (Abnormal) Range: 65-99 2-Bih-512557:15 CBC W/AUTO DIFF WBC (27633) Comments: PATIENT NOT FASTINGPERFORMED BY: [facility] Cybhqs9052 [facility] [id number] Immature Grans (Abs) 0.0 {x10E3/uL} (Normal) Range: [...] Range: 3.4-10.8 :23 CBC W/Diff, Automated Comments: [facility] [address] [place], [place], [address] Absolute Lymph 1.81 {X10_3/ul} (Normal) Range: 0.83-4.51 [...] 4.2-5.4 WBC 4.8 K/mm3 (Normal) Range: 4.4-11.0 61-Toe-57711:23 Comprehensive Metabolic Profil Comments: [facility] [address] [place], [place], [address] GAP 5 (Normal) Range: 5-15 CO2 31.0 [...] 70-110 :23 CRP, High Sensitivity Cardiac Comments: [facility] [address] [place], [place], [address] CRP HIGH SENS 2.99 mg/L (Normal) Comments: Low Relative Risk of CVD <1.0 mg/L Average Relative Risk of CVD 1.0 - 3.0 mg/L High Relative Risk of CVD >3.0 mg/L :23 Erythrocyte Sed Rate Comments: [facility] [address]na[address] [place], [place], [address] SED RATE 2 mm/h (Normal) Range: 0-30 :55 ASPIRATION (SLIDES ONLY) See Note (Normal) Comments: [facility] [address] [place], [place], [address] Comments: Patient: SUSANNE TORRES : 1950 (66/F) Acct Num: [id number] Phys: Keanu Tsang MD Unit Num: [id number] Loc: [facility] Specimen: [id number] Received: 01/23/17 - 1600 Spec Type: ASPIRATION TISSUES TISSUES: COMMENT Immediate cytologic evaluation to determine adequacy is not applicable. Correlation with clinical, radiologic findings and appropriate fol low up are necessary. CYTOLOGY GROSS Received are 12 smears labeled with the patient's name and designated per the requisition as left thyroid FNA. Submitted for staining. 01/24/17 TC:5 CPT: 05322 CYTOLOGY STUDY Slides are reviewed. The specimen [...] <signature on file> :39 T3, FREE (TRIDOTHYRONINE) (16473) Comments: PATIENT NOT FASTINGPERFORMED BY: [address] [id number] Triiodothyronine,Free,Serum 2.6 pg/mL (Normal) Range: 2.0-4.4 :39 T4, FREE (THYROXINE) (66548) Comments: PATIENT NOT FASTINGPERFORMED BY: [address] [id number] T4,Free(Direct) 1.49 ng/dL (Normal) Range: 0.82-1.77 :39 TSH (69321) Comments: PATIENT NOT FASTINGPERFORMED BY: [address] [id number] TSH 1.970 {uIU/mL} (Normal) Range: 0.450-4.500 9-Rcc-525060:31 ANTINUCLEAR ANTIBODIES DIRECT Comments: [facility] (refer to report for specific site)refer to report for address and phone number BIBIANA-DIRECT Positive (Abnormal) Comments: Performed at: [address] [id number] Director: Joaquim Barrett PhD, Phone: [phone] :31 CBC W/Diff, Automated Comments: [facility] [address] [place], [place], [address] Absolute Lymph 1.15 {X10_3/ul} (Normal) Range: 0.83-4.51 [...] 4.2-5.4 WBC 4.4 K/mm3 (Normal) Range: 4.4-11.0 9-Gsy-618503:31 Magnesium Comments: [facility] [address] [place], [place], [address](612) MG 2.1 mg/dL (Normal) Range: 1.8-2.4 5-Ygi-838289:31 Protein+Creatinine Ratio,Urine Comments: [facility] [address] [place], [place], [address] PROT:CRE RATIO 88 {mg/g_CRE} (Normal) Range: 0-200 PROTEIN,UR.RAN. 7.2 mg/dL (Normal) UR CREAT 81.80 mg/dL (Normal) 4-Hwg-156380:31 Renal Profile Comments: [facility] [address] [place], [place], [address]90) CO2 25.0 mmol/L (Normal) Range: 21.0-32.0 CL [...] <126 mg/dLsuggests IMPAIRED HOMEOSTASIS per A.D.A. criteria. 1-Hrt-852480:31 Vitamin D,25 Hydroxy Comments: [facility] [address]brr[address] [facility] [place], [address] Vitamin D 25-OH 48.2 ng/mL (Normal) Comments: Vitamin D 25(OH) Status Range Deficiency <20 ng/mL (50nmol/L) Insuffciency 20 - 30 ng/mL (50 - 75 nmol/L) Sufficiency 30 - 100 ng/mL (75 - 250 nmol/L) Toxicity >100 ng/mL (>250 nmol/L) 21-Lvc-78872:45 Culture, Urine Comments: [facility] [address]sc[address] [facility] [place], [address] CUUR See Note (Normal) Comments: Urine CultureBelow infection level. ORGANISM 1: Mixed Gram Positive OrganismsColony Count <1000 39-Zfe-447256:03 CALCIFIDIOL (17750) VIT D 25 Comments: PATIENT NOT FASTINGPERFORMED BY: [facility] [address] Wu StreetDublin [place] [id number] Vitamin D, 25-Hydroxy 52.3 ng/mL (Normal) Range: 30.0-100.0 Comments: Vitamin D deficiency has been defined by the [place] of[place]icine and an Endocrine Society practice guideline as alevel of serum 25-OH vitamin D less than 20 ng/mL (1,2).The Endocrine Society went on to further define vitamin Dinsufficiency as a level between 21 and 29 ng/mL (2).1. IOM ([place] of [employer]). 2010. Dietary reference intakes for calcium and D. [place]: The National Academies Press.2. Micky MF, Jessenia [place], Katrin CAMARGO, et al. Evaluation, treatment, and prevention of vitamin D deficiency: an Endocrine Society clinical practice guideline. JCEM. 2010; 96(7):1911-30. 74-Gdc-113676:03 Folate (38325) Comments: PATIENT NOT FASTINGPERFORMED BY: [facility] Qzqyuq[address] [facility] [place] [id number] Folate (Folic Acid), Serum >20.0 ng/mL (Normal) Comments: A serum folate concentration of less than 3.1 ng/mL isconsidered to represent clinical deficiency. 08-Kqo-599638:03 VITAMIN B-12 (CYANOCOBALAMIN) Comments: PATIENT NOT FASTINGPERFORMED BY: [facility] Udsswr44[address] [facility] [place] [id number] ([address]) Vitamin B12 469 pg/mL (Normal) Range: 211-946 48-Uxo-445789:03 TSH (43725) Comments: PATIENT NOT FASTINGPERFORMED BY: [facility] Ywivts[address] [facility] [place] [id number] TSH 2.240 {uIU/mL} (Normal) Range: 0.450-4.500 :03 SED RATE ERYTHROCYTE (39305) Comments: PATIENT NOT FASTINGPERFORMED BY: [facility] Qmntgc[address] [facility] [place] [id number] Sedimentation Rate-Westergren 2 mm/h (Normal) Range: 0-40 67-Csx-970178:03 RHEUMATOID FACTOR-QUANT (50943) Comments: PATIENT NOT FASTINGPERFORMED BY: [facility] CenterNykjur7988 [facility] [id number] RA Latex Turbid. 12.1 {IU/mL} (Normal) Range: 0.0-13.9 36-Xiw-800647:03 METABOLIC PANEL, COMPREHENSIVE Comments: PATIENT NOT FASTINGPERFORMED BY: [facility] CenterOtnonn6224 [facility] [id number] (62882) ALT (SGPT) 15 [iU]/L (Normal) Range: 0-32 [...] Glucose, Serum 89 mg/dL (Normal) Range: 65-99 62-Jkd-730097:03 C-REACTIVE PROTEIN (25199) Comments: PATIENT NOT FASTINGPERFORMED BY: [address] [id number] C-Reactive Protein, Quant 0.4 mg/L (Normal) Range: 0.0-4.9 :03 CBC (AUTO) (82948) Comments: PATIENT NOT FASTINGPERFORMED BY: [address] [id number] Platelets 220 {x10E3/uL} (Normal) Range: 150-379 RDW 13.1 % (Normal) Range: 12.3-15.4 MCHC 32.8 g/dL (Normal) Range: 31.5-35.7 MCH 30.1 pg (Normal) Range: 26.6-33.0 MCV 92 fL (Normal) Range: 79-97 Hematocrit 41.1 % (Normal) Range: 34.0-46.6 Hemoglobin 13.5 g/dL (Normal) Range: 11.1-15.9 RBC 4.49 {x10E6/uL} (Normal) Range: 3.77-5.28 WBC 4.7 {x10E3/uL} (Normal) Range: 3.4-10.8 51-Izu-685111:03 BIBIANA (ANTINUCLEAR ANTIBODY) Comments: PATIENT NOT FASTINGPERFORMED BY: [address] [id number] (46084) BIBIANA Direct Positive (Abnormal) :06 ANTINUCLEAR ANTIBODIES DIRECT Comments: CMP,CBCD FOR DR PHELPS,CBCD FOR DR Hannah (refer to report for specific site)refer to report for address and phone number BIBIANA-DIRECT Negative (Normal) Comments: Performed at: [address] [id number] Director: Joaquim Barrett PhD, Phone: [phone] :06 CBC W/Diff, Automated Comments: CMP,CBCD FOR DR PHELPS,CBCD FOR DR [facility] [id number] [place], [place], [id number] Absolute Lymph 1.89 {X10_3/ul} (Normal) Range: 0.83-4.51 [...] Range: 82-167 Comments: Performed at: - [facility] [address] [id number] Director: Joaquim Barrett PhD, Phone: [phone] :06 Complement C4 Comments: CMP,CBCD FOR DR PHELPS,CBCD FOR DR Hannah (refer to report for specific site)refer to report for address and phone number COMP C4 14 mg/dL (Normal) Range: 14-44 :06 Comprehensive Metabolic Profil Comments: C[facility]CD [facility] Lqecrdyukm1048 [place], [place], [id number] GAP 8 (Normal) Range: 5-15 CO2 30.0 [...] 70-110 :06 Magnesium Comments: CMP,CBCD [facility] Oxhrvouyvq5883 DenilsonANNE-MARIE [place], [address] MG 2.1 mg/dL (Normal) Range: 1.8-2.4 :06 Protein+Creatinine Ratio,Urine Comments: CMP,CBCD [facility] Sxrapxzgla6340 DenilsonANNE-MARIE [place], [address] PROT:CRE RATIO 128 {mg/g_CRE} (Normal) Range: 0-200 PROTEIN,UR.RAN. 13.8 mg/dL (Abnormal) UR CREAT 108.00 mg/dL (Normal) :06 Vitamin D,25 Hydroxy Comments: CMP,CBCD [facility] Xytznuwcom7661 [place], [address] Vitamin D 25-OH 48.7 ng/mL (Normal) Comments: Vitamin D 25(OH) Status Range Deficiency <20 ng/mL (50nmol/L) Insuffciency 20 - 30 ng/mL (50 - 75 nmol/L) Sufficiency 30 - 100 ng/mL (75 - 250 nmol/L) Toxicity >100 ng/mL (>250 nmol/L) 4-Syx-417013:07 Fecal Occult Blood , Office (01323) Fecal Occult Blood , Office (Inhouse) negative (Normal) 39-Xyt-82045:22 CBC W/Diff, Automated Comments: RENAL AND MG ARE FOR [facility]. [facility] Pxbcpeurld3321 Denilsonbhavana MortonJayden ANNE[place], [address] Absolute Lymph [...] 4.2-5.4 WBC 4.2 K/mm3 (Abnormal) Range: 4.4-11.0 01-Mfm-05224:22 Comprehensive Metabolic Profil Comments: RENAL AND MG ARE FOR DR. Ellsworth [facility] Xsshtnxepv0344 [place], [address] GAP 6 (Normal) Range: 5-15 CO2 31.0 [...] RENAL AND MG ARE FOR DR. Hollingsworthotoniel [facility] Hqymovkpxt5214 [address] Gut[address] [place], [place], [phone](069) VLDL 12 mg/dL (Normal) Range: 5-40 LDL [...] RENAL AND MG ARE FOR DR. Hollingsworthotoniel [facility] Emnkosgdli5690 [address] Gutier[address] [place], [place], [phone]) MG 2.1 mg/dL (Normal) Range: 1.8-2.4 :22 Phosphorus Comments: RENAL AND MG [facility]WK[facility] Jfitjrlnhl2999 [place], [address] PHOS 2.6 mg/dL (Normal) Range: 2.5-4.9 :22 Thyroid Stim Hormone (TSH) Comments: RENAL AND MG ARE FOR [facility] Eleqhxbwqq1981 [place], [address] TSH 2.69 {uIU/mL} (Normal) Range: 0.358-3.74 :22 Vitamin D,25 Hydroxy Comments: RENAL AND MG ARE FOR [facility] Ahrpklgnle0892 [place], [address] Vitamin D 25-OH 51.1 ng/mL (Normal) [...] number BIBIANA-DIRECT Positive (Abnormal) Comments: Performed at: [facility] [address]Co[address] [id number] Director: Joaquim Barrett PhD, Phone: [phone] :50 CBC W/Diff, Automated Comments: [facility] Gdhfsjmcax4955 [place], [address] Absolute Lymph 1.76 {X10_3/ul} (Normal) [...] mg/dL (Normal) Range: 82-167 Comments: Performed at: [address] [id number] Director: Joaquim Barrett PhD, Phone: [phone] :50 Complement C4 Comments: [facility] (refer to report for specific site)refer to report for address and phone number COMP C4 15 mg/dL (Normal) Range: 14-44 :50 Comprehensive Metabolic Profil Comments: ORDERED CMP CBCD PROCRE UA ORDERED VITD CMP BIBIANA CBCD C3 C4 MG PROCRE LUIS ORDERED [facility] Npaprrjegd3404 [place], [place], [id number] GAP 5 (Normal) Range: 5-15 CO2 28.0 [...] (Normal) Range: 70-110 :50 Culture, Urine Comments: [facility] Fdvyqhzuhm6704 [address] Gutier[address] [place], [place], [id number] CUUR See Note (Normal) Comments: Urine CultureCulture exhibits no growth. :50 Magnesium Comments: ORDERED CMP CBCD PROCRE UACDRZOË ORDERED VITD CMP BIBIANA CBCD C3 C4 MG PROCRE UADR.ENDY ORDERED [facility] Wtssutclug9221 [address] [place], [place], [id number] MG 2.1 mg/dL (Normal) Range: 1.8-2.4 :50 Protein+Creatinine Ratio,Urine Comments: [facility] Qgrzoiowok8770 [place], [address] PROT:CRE RATIO 161 {mg/g_CRE} (Normal) Range: 0-200 PROTEIN,UR.RAN. 10.6 mg/dL (Normal) UR CREAT 65.90 mg/dL (Normal) 86-Pkj-01768:50 Urinalysis, Routine (Dipstick) Comments: How was Urine Obtained? CLEAN [facility] Gmcaelticx5220 [place], [address] LEUK ESTERASE 25 /ul (Abnormal) OCCULT BLOOD-UR Negative /ul (Normal) NITRITE UR Negative (Normal) UROBILI Normal mg/dL (Normal) PROT DIPSTX Negative mg/dL (Normal) pH UR 6.0 (Normal) Range: 5.0 - 8.0 SP.GR. DIPSTX 1.020 (Normal) Range: 1.002-1.030 KETONE UR Negative mg/dL (Normal) BILIRUBIN URINE Negative mg/dL (Normal) GLUCOSE, UR Normal mg/dL (Normal) CLARITY Clear (Normal) COLOR Yellow (Normal) 45-Nxi-28376:50 Vitamin D,25 Hydroxy Comments: [facility] Kxcffadsdl9795 [place], [address] Vitamin D 25-OH 58.7 ng/mL (Normal) Comments: Vitamin D 25(OH) Status Range Deficiency <20 ng/mL (50nmol/L) Insuffciency 20 - 30 ng/mL (50 - 75 nmol/L) Sufficiency 30 - 100 ng/mL (75 - 250 nmol/L) Toxicity >100 ng/mL (>250 nmol/L) :33 Lipid Profile Comments: [facility] Sdpsxfvfzy3384 [place], [address] VLDL 18 mg/dL (Normal) Range: [...] High Risk 27-Jul-20158:33 Vitamin D,25 Hydroxy Comments: [facility] Iihmnohinz1936 ANNE-MAR[place], [address] Vitamin D 25-OH 43.3 ng/mL (Normal) Comments: Vitamin D 25(OH) Status Range Deficiency <20 ng/mL (50nmol/L) Insuffciency 20 - 30 ng/mL (50 - 75 nmol/L) Sufficiency 30 - 100 ng/mL (75 - 250 nmol/L) Toxicity >100 ng/mL (>250 nmol/L) 27-Bsl-472677:12 EBV Acute Prof IgG / IgM Comments: [facility] (refer to report for specific site)refer to report for address and phone number INTERPRETATION Comment (Normal) Comments: EBV Interpretation ChartInterpretation EBV-IgM EA(D)-IgG VCA-IgG EBNA-IgGEBV Seronegative - - - -Early Phase + - - -Acute Primary + +or- + -InfectionConvalescence/Past - +or- + +InfectionReactivated +or- + + +Infection + Antibody Present - Antibody Ab sentPerformed at: [facility] [address]Co[address] [id number] Director: Joaquim Barrett PhD, Phone: [phone] EB-NAg HlE94542 38.3 U/mL (Abnormal) Range: 0.0-17.9 Comments: Negative <18.0 Equivocal 18.0 - 21.9 Positive >21.9 EB-VCA [id number] 306.0 U/mL (Abnormal) Range: 0.0-17.9 Comments: Negative <18.0 Equivocal 18.0 - 21.9 Positive >21.9 EB-EA IgG 21313 <9.0 U/mL (Normal) Range: 0.0-8.9 Comments: Negative < 9.0 Equivocal 9.0 - 10.9 Positive >10.9 EB-VCA TuS14951 < 36.0 U/mL (Normal) Range: 0.0-35.9 Comments: Negative <36.0 Equivocal 36.0 - 43.9 Positive >43.9 :15 Immunofixation Urine Comments: PATIENT STATES FLU X'S 2 WAS DONE AT THE OFFICE BY ONE OFTHE NURSES.[facility] (refer to report for specific site)refer to report for address and phone number CLIVE Urine Comment (Normal) Comments: No monoclonality detected.Performed at: [facility] [address] [id number] Director: Joaquim Barrett PhD, Phone: [phone] 84-Buc-127221:15 Immunofixation, Serum Comments: PATIENT STATES FLU X'S [...] G 1776 697 mg/dL (Abnormal) Range: 700-1600 04-Qnq-298175:15 Hollister [employer] Comments: PATIENT STATES FLU [...] % (Normal) BETA GLOB,U 30.8 % (Normal) TASFP-9-JUQZ,U 16.9 % (Normal) AWVEF-4-LYAD,U 1.8 % (Normal) ALBUMIN,UR 35.1 % (Normal) PROTEIN,UR 13.0 mg/dL (Normal) Range: 0.0-15.0 :15 Protein Electroph, S Comments: PATIENT STATES FLU X'S 2 WAS DONE AT THE OFFICE BY ONE OFTHE NURSES.[facility] (refer to report for specific site)refer to report for address and phone number NOTE Comment (Normal) Comments: Protein electrophoresis scan will follow via computer,mail, or mathematician research delivery. NOTE: Comment (Normal) Comments: The SPE pattern appears essentially unremarkable. Evidenceof monoclonal protein is not apparent. INTERPRETATION Comment (Normal) Comments: Protein electrophoresis scan will follow via computer,mail, or mathematician research delivery. A/G RATIO 1.7 (Normal) Range: 0.7-2.0 GLOBULIN, TOTAL 2.3 g/dL (Normal) Range: 2.0-4.5 M-SPIKE (Normal) Comments: Not Observed GAMMA GLOBULIN 0.7 g/dL (Normal) Range: 0.5-1.6 BETA GLOBULIN 0.8 g/dL (Normal) Range: 0.6-1.3 ALPHA-2 GLOBUL 0.6 g/dL (Normal) Range: 0.4-1.2 ALPHA-1 GLOBUL 0.2 g/dL (Normal) Range: 0.1-0.4 ALBUMIN 3.9 g/dL (Normal) Range: 3.2-5.6 PROTEIN,TOTAL 6.2 g/dL (Normal) Range: 6.0-8.5 92-Ens-820492:22 Rapid Flu (55242 x 2) Influenza A Ag negative (Normal) 17-Rap-410641:56 Vitamin D,25 Hydroxy Comments: [facility] [address] [place], [place], [id number] Vitamin D 25-OH 87.5 ng/mL (Normal) Comments: Vitamin D 25(OH) Status Range Deficiency <20 ng/mL (50nmol/L) Insuffciency 20 - 30 ng/mL (50 - 75 nmol/L) Sufficiency 30 - 100 ng/mL (75 - 250 nmol/L) Toxicity >100 ng/mL (>250 nmol/L) :31 CBC W/Diff, Automated Comments: [facility] [address] [place], [address] Absolute Lymph 1.68 {X10_3/ul} (Normal) [...] 4.2-5.4 WBC 3.9 K/mm3 (Abnormal) Range: 4.4-11.0 70-Yxv-25739:31 Comprehensive Metabolic Profil Comments: [facility] Wswnaxhkwk3445 [address] [place], [place], [id number] GAP 3 (Abnormal) Range: 5-15 CO2 32.0 [...] (Normal) Range: 70-110 :31 Protein+Creatinine Ratio,Urine Comments: [facility] Kfavcnzrch5947 [facility] [place], [place], [phone] PROT:CRE RATIO 180 {mg/g_CRE} (Normal) Range: 0-200 PROTEIN,UR.RAN. 39.2 mg/dL (Abnormal) UR CREAT 218.00 mg/dL (Normal) :31 Urinalysis, Complete Comments: How was Urine Obtained? Urine, [facility] Gslulduhle0895 [facility] [place], [place], [phone] AMORPHOUS 1+ (Normal) MUCUS, URINE 0 SEEN [...] CLARITY Sl. Cloudy (Normal) COLOR Yellow (Normal) 11-Vxi-495461:20 Basic Metabolic Profile (BMP) Comments: [facility] [address] [place], [place], [id number] GAP 6 (Normal) Range: 5-15 CO2 30.0 [...] 7-18 GLU 89 mg/dL (Normal) Range: 70-110 88-Eoo-628304:20 CBC-Complete Blood Cnt No Diff Comments: [facility] [address] [place], [place], [id number] MPV 9.2 fL (Normal) Range: 6.2-12.0 PLT [...] 4.2-5.4 WBC 4.7 K/mm3 (Normal) Range: 4.4-11.0 29-Qfk-007562:01 Basic Metabolic Profile (BMP) Comments: Test performed at:[facility] Qznkpzesuh2195 [place] [address] GAP 4 (Abnormal) Range: 5-15 [...] 7-18 GLU 97 mg/dL (Normal) Range: 70-110 77-Ktp-933265:01 Vitamin D,25 Hydroxy Comments: Test performed at:[facility] Ggdlsytquu37[address] [place] [address] Vitamin D 25-OH 22.7 ng/mL (Normal) Comments: Vitamin D 25(OH) Status Range Deficiency <20 ng/mL (50nmol/L) Insuffciency 20 - 30 ng/mL (50 - 75 nmol/L) Sufficiency 30 - 100 ng/mL (75 - 250 nmol/L) Toxicity >100 ng/mL (>250 nmol/L) :12 CBC W/Diff, Automated Comments: Test performed at:[facility] Kfbewdgvgz2067 [place] [address] Absolute Lymph 1.39 {X10_3/ul} (Normal) [...] 4.2-5.4 WBC 5.3 K/mm3 (Normal) Range: 4.4-11.0 37-Cyg-19720:12 Comprehensive Metabolic Profil Comments: Test performed at:[facility] Pjeqceaaxw3354 [address] MortonJay[address] [place], [place] [address] GAP 9 (Normal) Range: 5-15 CO2 29.0 [...] :52 CBC W/Diff, Automated Comments: Test performed at:[facility] Hgzwqssbht7876 [place] [address] Absolute Lymph 1.62 {X10_3/ul} (Normal) Range: 0.83-4.51 [...] :52 Comprehensive Metabolic Profil Comments: Test performed at:[facility] Sxhpmxkmaz8315 [address] MortonJayden [place], [place] [address] GAP 6 (Normal) Range: 5-15 CO2 31.0 [...] 7-18 GLU 77 mg/dL (Normal) Range: 70-110 2-Uty-739237:40 FENTANYL Blood Level Comments: Test performed at:[facility] [address] [place], [place] [address] FENTANYL BLD (Normal) Comments: Sent directly to testing facility per ordering physician.02/16/15 1622 KAMLESH :53 CBC W/Diff, Automated Comments: Test performed at:[facility] [address] [place] [address] Absolute Lymph 1.44 {X10_3/ul} (Normal) [...] :53 Comprehensive Metabolic Profil Comments: Test performed at:[facility] Vrxsmcqbno1898 Den[address]sonbhavana [place] [address] GAP 5 (Normal) Range: 5-15 [...] 7-18 GLU 90 mg/dL (Normal) Range: 70-110 17-Mqd-68935:53 Lipid Profile Comments: Test performed at:[facility] Iwcjmjwfvy5568 [place] [address] VLDL 13 mg/dL (Normal) Range: [...] 200-240 mg/dL Borderline >240 mg/dL High Risk 65-Inx-54343:53 Vitamin D,25 Hydroxy Comments: Test performed at:[facility] Wptaqhivmx1392 [place] [address] Vitamin D 25-OH 27.3 ng/mL (Normal) Comments: Vitamin D 25(OH) Status Range Deficiency <20 ng/mL (50nmol/L) Insuffciency 20 - 30 ng/mL (50 - 75 nmol/L) Sufficiency 30 - 100 ng/mL (75 - 250 nmol/L) Toxicity >100 ng/mL (>250 nmol/L) 9-Lji-867103:14 Culture, Urine Comments: Test performed at:[facility] Fygroezjph86[address] [place] [address] ; ordered by endy JACKSON See Note (Normal) Comments: Urine CultureCulture exhibits no growth. 9-Wic-243824:14 Urinalysis, Routine (Dipstick) Comments: How was Urine Obtained? CLEAN CATCHTest performed at:[facility] Yxccymgvza85[address] [place] [address] LEUK ESTERASE Negative /ul (Normal) OCCULT BLOOD-UR Negative /ul (Normal) NITRITE UR Negative (Normal) UROBILI Normal mg/dL (Normal) PROT DIPSTX Negative mg/dL (Normal) pH UR 5.0 (Normal) Range: 5.0 - 8.0 SP.GR. DIPSTX 1.030 (Normal) Range: 1.002-1.030 KETONE UR Negative mg/dL (Normal) BILIRUBIN URINE Negative mg/dL (Normal) GLUCOSE, UR Normal mg/dL (Normal) CLARITY Clear (Normal) COLOR Yellow (Normal) 66-Nfs-046020:19 FENTANYL Blood Level Comments: Test performed at:[facility] Rvnevugiqy[address] [place] [address] FENTANYL BLD (Normal) Comments: Scanned image report available in EMR 12-Ubx-44606:48 CBC W/Diff, Automated Comments: Test performed at:[facility] Dqxpotiucn8324 [place] [address] Absolute Lymph 2.34 {X10_3/ul} (Normal) [...] 4.2-5.4 WBC 4.6 K/mm3 (Normal) Range: 4.4-11.0 24-Obg-32091:48 Comprehensive Metabolic Profil Comments: Test performed at:[facility] Gbrhmhblbv7950 [address] [place], [place] [id number] GAP 4 (Abnormal) Range: 5-15 CO2 31.0 [...] CMV Acute Antibody IgM Comments: Test performed at:[facility] [address] [place] [address] CMVIgM AB < 30.0 AU/mL (Normal) Range: 0.0-29.9 Comments: Negative <30.0 Equivocal 30.0 - 34.9 Positive >34.9A positive result is generally indicative of acuteinfection, react ivation or persistent IgM production.Performed at: - [address] [id number] Director: Yury Cornelius PhD, Phone: [phone] :39 CMV Antibody IgG Comments: Test performed at:[facility] Vjtdlowden2430 [place] [address] CMV AB IgG < 0.60 U/mL (Normal) Range: 0.00-0.59 Comments: Negative <0.60 Equivocal 0.60 - 0.69 Positive >0.69 :39 Comprehensive Metabolic Profil Comments: Test performed at:[facility] [address] [place] [address] GAP 4 (Abnormal) Range: 5-15 [...] 7-18 GLU 88 mg/dL (Normal) Range: 70-110 44-Jwr-54693:39 EBV Acute Prof IgG / IgM Comments: Test performed at:[facility] Rwkvnbciqe2277 [address] [place], [place] [address] INTERPRETATION Comment (Normal) Comments: EBV Interpretation ChartInterpretation EBV-IgM VCA-IgG EBNA-IgG EA(D)-IgGEBV Seronegative - - - -Early Phase + - - -Acute Primary + + - +or-InfectionConvalescence/Past - + + +or-InfectionReactivated +or- + + +Infection + Antibody Present - Antibody Absent EB-NAg OlI81619 36.1 U/mL (Abnormal) Range: 0.0-17.9 Comments: Negative <18.0 Equivocal 18.0 - 21.9 Positive >21.9 EB-VCA EyZ15650 289.0 U/mL (Abnormal) Range: 0.0-17.9 Comments: Negative <18.0 Equivocal 18.0 - 21.9 Positive >21.9 EB-EA IgG 13243 <9.0 U/mL (Normal) Range: 0.0-8.9 Comments: Negative < 9.0 Equivocal 9.0 - 10.9 Positive >10.9 EB-VCA QtO05701 < 36.0 U/mL (Normal) Range: 0.0-35.9 Comments: Negative <36.0 Equivocal 36.0 - 43.9 Positive >43.9 :39 Lipid Profile Comments: Test performed at:[facility] Qbptiyeonv[address] [place] [id number] VLDL 11 mg/dL (Normal) Range: 5-40 LDL [...] :39 Vitamin D,25 Hydroxy Comments: Test performed at:[facility] [address]jtz[address] [place] [address] Vitamin D 25-OH 36.8 ng/mL (Normal) Comments: Vitamin D 25(OH) Status Range Deficiency <20 ng/mL (50nmol/L) Insuffciency 20 - 30 ng/mL (50 - 75 nmol/L) Sufficiency 30 - 100 ng/mL (75 - 250 nmol/L) Toxicity >100 ng/mL (>250 nmol/L) 72-Vbi-311158:32 URINE MICHI CULTURE-ZACHARY COL Comments: PATIENT NOT FASTINGPERFORMED BY: [facility] Iwbxsj1172 [facility] [id number] Information: SRC:UR [id number] COUNT ([id number]) Result 1 ENTECC (Abnormal) Comments: Enterobacter cloacae [...] report Culture,Comprehensi (Abnormal) ve :50 Urinalysis, Office (32823) UA - LEUKOCYTE ESTERASE Small (Normal) UA - NITRITE Negative (Normal) URINE UROBILINGN ZACHARY 2 mg/dL (Normal) TIMED UA - PROTEIN Negative mg/dL (Normal) UA - PH 6.5 (Normal) UA - BLOOD non-hemolyzed trace (Normal) UA - SPECIFIC GRAVITY 1.010 (Normal) UA - KETONES Negative mg/dL (Normal) UA - BILIRUBIN Negative (Normal) UA - GLUCOSE Negative (Normal) BIBIANA Positive (Abnormal) Comments: Performed at: [facility] [address] [id number] Director: Yury Cornelius PhD, Phone: [phone] : ANEX FRANCOIS-[facility] <0.2 {AI} (Normal) Range: 0.0-0.9 DISTILLERY MILLER HELPER-[facility] >8.0 {AI} (Abnormal) Range: 0.0-0.9 ANTIJO-[facility] <0.2 {AI} (Normal) Range: 0.0-0.9 ANTISCL-[facility] <0.2 {AI} (Normal) Range: 0.0-0.9 C3 108 (Normal) Range: 90-180 Comments: Result Units: mg/dL AdultPerformed at: [facility] [address] [id number] Director: Yury Cornelius PhD, Phone: [phone] :[phone] C4 15 (Normal) Range: 9-36 Comments: [...] UCLAR Sl. Cloudy (Normal) UCOL Yellow (Normal) 4-Xry-420752:53 CUUR URC See Note (Normal) Comments: ORGANISM 1: Mixed Gram Positive OrganismsColony Count 1000-10,000MIX CONTAM Mixed Contaminants. Submit new specimen if indicated. 54-Mbd-346630:07 BIBIANA Positive (Abnormal) Comments: Performed at: [address] Director: Yury Cornelius PhD, Phone: [phone] 61-Mzk-993847:07 CBCD ALC 1.50 {X10_3/ul} (Normal) Range: 0.83-4.51 [...] HEBSAG ttHEBSAG Negative (Normal) Comments: Performed at: [address] [id number] Director: Yury Cornelius PhD, Phone: [phone] at: [address] [place] [id number] Director: Rogelio Randle PhD, Phone: [phone] at: [address] [id number] Director: Murray Mabry MD, Phone: [phone] :07 HECAB tHECAB <0.1 {s/co_ratio} (Normal) Range: 0.0-0.9 Comments: Negative: < 0.8Indeterminate: 0.8 - 0.9Positive: > 0.9In order to reduce the incidence of a false positiveresult, the CDC recommends that all s/co ratiosbetween 1.0 and 10.9 be confirmed b y a more specificsupplemental or PCR testing. [facility] offers HCV Abw/Reflex to Verification test #[id number]. :07 HLAB27 tHLAB27 Negative (Normal) Comments: HLA-B*27 NegativeA [facility] CLIA ID Number [id number] test was performed using PCR (Polymerase ChainReaction)/SSOP (Sequence Specific Oligonucleotide Probes)technique. SBT (Sequence Based Typing) and/ or SSP(Sequence Specific Primers) may be used as supplementalmethods when necessary. Please contact [facility] CustomerService at if you have any questions.Director of HLA LaboratoryDr Rogelio Randle, PhD :07 RF < 10.0 {IU/mL} (Normal) : SED tSEDRATE 13 mm/h (Normal) Range: 0-30 16-Hdn-822757:37 BID 0.21 mg/dL (Normal) Comments: Comments: [id number]; CALCIFEDOIL;PLASMA;RF Range: 0.00-0.30 :37 CBCD ALC 1.03 [...] (Abnormal) Range: 4.4-11.0 :37 CMP Comments: Comments: [id number]; CALCIFEDOIL;PLASMA;RF GAP 7 (Normal) Range: 5-15 CO2 [...] 7-18 GLU 93 mg/dL (Normal) Range: 70-110 64-Gjg-940876:37 LIPID Comments: Comments: [id number]; CALCIFEDOIL;PLASMA;RF VLDL 24 mg/dL (Normal) Range: 5-40 LDL 71 mg/dL (Normal) Range: 0-130 HDL 40 mg/dL (Normal) Comments: Reference RangeHDL <40 mg/dL Low HDL CholesterolHDL >or= 60 mg/dL High HDL Cholesterol CHOL 135 mg/dL (Normal) Comments: <200 mg/dL Gewtgejkc132-140 mg/dL Borderline>240 mg/dL High Risk TRIG 122 mg/dL (Normal) Range: 0-199 Comments: Serum Triglycerides Reference IntervalNormal <150 mg/dLBorderline high 150 - 199 mg/dLHigh 200 - 499 mg/ dLVery High > or = 500 mg/dL 70-Rqd-044964:37 TSH 1.70 {uIU/mL} (Normal) Comments: Comments: [id number]; CALCIFEDOIL;PLASMA;RF Range: 0.358-3.74 33-Lnb-604083:30 VITD 57.3 mg/mL (Normal) Comments: Vitamin D 25(OH) Status RangeDeficiency <20 ng/mL (50nmol/L)Insuffciency 20 - 30 ng/mL (50 - 75 nmol/L)Sufficiency 30 - 100 ng/mL (75 - 250 nmol/L)Toxicity >100 ng/mL (>250 nmol/L) 74-Ugz-18291:27 URINE MICHI CULTURE-ZACHARY COL Comments: PATIENT NOT FASTINGPERFORMED BY: [facility]CoP[facility] CenterQyxlef9300 [facility] [id number] Information: SRC:UR [id number] COUNT ([id number]) Antimicrobial MIHEAD (Normal) Comments: S = Susceptible; [...] primarily for treating urinary tract infections. (CLSI, [id number],2009) Urine Final report (Abnormal) Culture,Comprehensive 27-Qac-977032:11 Urinalysis, Office (40670) UA - LEUKOCYTE ESTERASE Trace (Normal) UA - NITRITE Negative (Normal) URINE UROBILINGN ZACHARY TIMED Normal mg/dL (Normal) UA - PROTEIN Negative mg/dL (Normal) UA - PH 6 (Abnormal) UA - BLOOD Hemolyzed Trace (Normal) UA - SPECIFIC GRAVITY 1.025 (Normal) UA - KETONES Small mg/dL (Normal) UA - BILIRUBIN Small (Normal) UA - GLUCOSE Negative (Normal) 35-Mix-987305:28 MICHI CULTURE-OTHER (54558) Comments: PATIENT NOT FASTINGPERFORMED BY: [facility]CoP[facility] CenterEoqipl3831 [facility] [id number] Information: SRC:THRT [id number] Result 1 RRF (Normal) Comments: Routine respiratory christ Upper Respiratory Culture Final report (Normal) 81-Ses-027088: ARUNA 42 U/L (Normal) Range: 25-115 10 84-Ixn-002129:10 CBCD ANC 5.0 {X10_3/uL} (Normal) Range: 2.0-7.7 [...] 4.2-5.4 WBC 6.8 K/mm3 (Normal) Range: 4.4-11.0 12-Ovt-758043:10 CMP GAP 6 (Normal) Range: 5-15 CO2 [...] U/L (Abnormal) Range: 70-290 :17 Urinalysis, Office (73261) UA - LEUKOCYTE ESTERASE Small (Normal) UA [...] (Normal) Range: 16.0-45.0 19 Comments: Performed at: [address] [id number] Director: Yury Cornelius PhD, Phone: [phone] : GOLD 194 ng/mL (Normal) Range: 8-252 19 :31 LIVER BID 0.17 mg/dL (Normal) Range: 0.00-0.30 BIT 0.50 mg/dL (Normal) Range: 0.00-1.00 ALT 134 U/L (Abnormal) Range: 12-78 ALK 111 U/L (Normal) Range: 50-136 AST 107 U/L (Abnormal) Range: 15-37 ALB 3.8 g/dL (Normal) Range: 3.4-5.0 TPROT 6.7 g/dL (Normal) Range: 6.4-8.2 13-Jsv-552520:08 URINE MICHI CULTURE-ZACHARY COL Comments: PATIENT NOT FASTINGPERFORMED BY: [facility] Rwekjx6813 Walton RoadColumb[facility] Healthcare System [id number] Information: SRC:UR [id number] COUNT ([id number]) Antimicrobial MIHEAD (Normal) Comments: S = Susceptible; I = Intermediate; R = Resistant P = Positive; N = Negative MICS are expressed in micrograms per mL Antibiotic RSLT#1 RSLT#2 Susceptibility RSLT#3 RSLT#4Amoxicillin/Clavulanic Acid SAmpicillin SCefazolin SCefepime SCeftriaxone SCefuroxime SCephalothin SCiprofloxacin IErtapenem SGentamicin SLevofloxacin SNitrofurantoin R Piperacillin STetracycline RTobramycin STrimethoprim/Sulfa S Result 1 Proteus mirabilis Comments: 1,000 Colonies/mL (Normal) Urine Final report Culture,Comprehensive (Normal) [id number] Urinalysis, Office ([id number]) UA - BILIRUBIN Negative (Normal) UA - BLOOD Negative (Normal) UA - GLUCOSE Negative (Normal) UA - KETONES Negative mg/dL (Normal) UA - LEUKOCYTE ESTERASE Trace (Normal) UA - NITRITE Negative (Normal) UA - PH 5.0 (Normal) Comments: 5.5 UA - PROTEIN Negative mg/dL (Normal) UA - SPECIFIC GRAVITY 1.025 (Normal) Comments: > 1.030 URINE UROBILINGN ZACHARY TIMED Normal mg/dL (Normal) 83-Rse-917268:50 CHEST WITHOUT CONTRAST Radiology Report See Note [...] Payan M.D.December 29, 2012 at 4:08:08 PM [id number] ly Signed GP/GP If you are the referring physician and would like to consult with theradiologist who provided this interpretation, please contact Nicolas Boyer at [phone]. If this radiolo gist is unavailable, youwill be directed to another radiologist to assist. If you are a patient with a question regarding this report, pleasecontactyour referring physician directly. Professional Interp retation Provided By: [employer], Phone , These documents contain legally protected [...] 12/29/12 1611 Sign by: Bayron Payan MD 89-Edd-93297:46 LIVER Radiology Report See Note (Normal) Comments: PROCEDURE: ABDOMINAL ULTRASOUND - RIGHT UPPER QUADRANT REASON FOR VISIT: Female, 62 years old. Elevated liver functiontests. TECHNIQUE: Ultrasound evaluation of the right upper quadrant [facility] with real-time and static fairchild-scale imaging. [...] size of the right kidney. The right bwnnfptmpcmfky72.1 cm. Normal renal cortex. The right cortex measure s 0.9 cm. Thereisa 1.5 cm x 1.7 cm by 1.1-cm cyst along the medial portion of the kidney.There is no right hydronephrosis. IMPRESSION:Small right renal cyst. Signed:Bayron Payan M.D.December 16, 2012 at 10:11:37 AM [id number] Signed GP/GP If you are the referring physician and would like to consult with theradiologist who provided this interpretation, please contact Anish brewer M.D. at [phone]. If this radiologist is unavailable, youwill be directed to another radiologist to assist. If you are a patient with a question regarding this report, pleasecontactyour referr ing physician directly. Professional Interpretation Provided By: [employer], Phone , These documents contain legally protected [...] 12/16/12 1014 Sign by: Bayron Payan MD 31-Mis-504848:17 EBGM EBNA > 8.0 {AI} (Abnormal) Range: 0.0-0.8 Comments: Negative <0.9Equivocal 0.9 - 1.0Positive >1.0 tEBINT Comment (Normal) Comments: EBV Interpretation Chart.Interpretation VCA-IgM EA-IgG VCA-IgG NA-ABS.Susceptible - - - -Acute Infection + +or- +or- -Convalescent Phas e +or- +or- + +Chronic or Reactivated - + + +or-Old Infection - - +or- ++ Antibody Present - Antibody AbsentPerformed at: [address] [id number] Director: Yury Cornelius PhD, Phone: [phone] EBVG > 8.0 {AI} (Abnormal) Range: 0.0-0.8 [...] 3.4-5.0 TPROT 7.3 g/dL (Normal) Range: 6.4-8.2 73-Dzq-832064:17 TSH 1.08 {uIU/mL} (Normal) Range: 0.358-3.74 :46 [...] Signed:Clark D.O.June 27, 2012 at 5:23:04 PM [id number] Signed DL/DL If you are the referring physician and would like to consult with theradiologist who provided this interpretati on, please contact Mone Lazo at [phone]. If this radiologist is unavailable, you will bedirected to another radiologist to assist. If you are a patient with a question regarding this report , pleasecontactyour referring physician directly. Professional Interpretation Provided By: [employer], Phone , These documents contain legally protected [...] on 06/27/121727 Sign by: Kamilla Epperson DO 5-Dev-691468:41 DEXA BONE DENSITY STUDY (HP) Radiology Report [...] Payan M.D.June 26, 2012 at 11:52:03 AM [id number] Signed GP/GP If you are the referring physician and would like to consult with theradiologist who provided this interpretation, please contact Nicolas Boyer at [phone]. If this radiologist is unavailable, youwill be directed to another radiologist to assist. If you are a patient with a question regarding this report, pleasecontactyour referring physician directly. Professional Interpretation Provided By: [employer], Phone , These documents contain lega lly [...] 06/26/12 1232 Sign by: Bayron Payan MD 06-Yjp-524529:08 T4, FREE (THYROXINE) Comments: PATIENT NOT FASTINGPERFORMED BY: [facility]lkprd[facility] [id number] Information: [id number] (97284) T4,Free(Direct) 1.34 ng/dL (Normal) Range: 0.82-1.77 49-Shi-420272:08 T3, FREE (TRIDOTHYRONINE) (00536) Comments: PATIENT NOT FASTINGPERFORMED BY: [facility] [facility] [id number] Triiodothyronine,Free,Serum 2.7 pg/mL (Normal) Range: 2.0-4.4 85-Kxn-616439:08 TSH (84195) Comments: PATIENT NOT FASTINGPERFORMED BY: [facility] [facility] [id number] TSH 1.370 {uIU/mL} (Normal) Range: 0.450-4.500 :58 [...] D deficiency has been defined by the [place] of[place]icine and an Endocrine Society practice guideline as alevel of serum 25-OH vitamin D less than 20 ng/mL (1,2).The Endocrine Society went on to further define vitamin Dinsufficiency as a level between 21 and 29 ng/mL (2).1. IOM ([place] [employer]). 2010. Dietary reference intakes for calcium and D. [place]: The National Academies Press.2. Micky SO, [place], Katrin CAMARGO, et al. Evaluation, treatment, and prevention of vitamin D deficiency: an Endocrine Society clinical practice guideline. JCEM. 2010; 96(7): 1911-30.Performed at: [id number] [place], [place] [id number] Director: Yury Cornelius PhD, Phone: [phone] 22-Dec-20110:00 CHEST WITHOUT CONTRAST Radiology Report See Note (Normal) Comments: PROCEDURE: CT CHEST WITHOUT CONTRAST REASON FOR EXAM: Female, 61 years old. Lung nodule TECHNIQUE: High resolution transaxial imaging was performed without theadministration of intrav enous contra st material. COMPARISON: None. FINDINGS: Right lower lung nodule measuring 6 mm on axial image # 65 is similar topargyler study allowing for differences in technical factors. [...] Signed BP/ BP Professional Interpretation Provided By: [facility], , To consult with a radiologist regarding this report, please call our [id number] juanita e @ Dictated on 12/22/11 1022 by Luis Manuel Stahl MDTranscribed on 12/22/11 1059 by ITS IMPORTSign by Luis Manuel Stahl MD on 12/22/11 1100 Sign by: Luis Manuel Stahl MD 99-Eyr-26777:36 CBCMD RBCM NORM C+C {NORMAL} (Normal) PE [...] D deficiency has been defined by the [place] of[place] and an Endocrine Society practice guideline as alevel of serum 25-OH vitamin D less than 20 ng/mL (1,2).The Endocrine Society went on to further define vitamin Dinsufficiency as a level between 21 and 29 ng/mL (2).1. IOM ([place] [employer]). 2010. Dietary reference intakes for calcium and D. [place]: The National Academies Press.2. Micky MF, [place] NC, Katrin CAMARGO, et al. Evaluation, treatment, and prevention of vitamin D deficiency: an Endocrine Society clinical practice guideline. JCEM. 2010; 96(7): 1911-30.Performed at: - [facility] [id number] Director: Alma Rodríguez MD, Phone: [phone] :[phone] CBCD,SMEAR DIFF RED CELL MORPH SeeNote [...] 7-18 GLU 88 mg/dL (Normal) Range: 70-110 88-Njk-47744:47 VIT D,25 98311 81.4 ng/mL (Normal) Range: 30.0-100.0 Comments: Vitamin D deficiency has been defined by the [place] of[place] and an Endocrine Society practice guideline as alevel of serum 25-OH vitamin D less than 20 ng/mL (1,2).The Endocrine Society went on to further define vitamin Dinsufficiency as a level between 21 and 29 ng/mL (2).1. IOM ([place] [employer] [place]). 2011. Dietary reference intakes for calcium and D. [place]: The National AcademZettics Press.2. Micky MF, [place], Katrin CAMARGO, et al. Evaluation, treatment, and prevention of vitamin D deficiency: an Endocrine Society clinical practice guideline. JCEM. 2010; 96(7): 1911-30. Please note reference interval changePerformed at: [address] [id number] Director: Alma Rodríguez MD, Phone: [phone] 80-Azn-862731:11 CHEST WITHOUT CONTRAST Radiology Report See Note [...] ifclinicallywarranted. Dictated on 02/16/11 1124 by Hiwot KRISHNAN,Jaleelranscribed on 02/16/111203 by ITS IMPORTSign by Hiwot [...] >240 mg/dL High Risk :18 VIT D,25 68742 78.0 ng/mL (Normal) Comments: appt 11/14/10 Range: 32.0-100.0 Comments: Recent studies consider the lower limit of 32.0 ng/mL to bradley threshold for optimal health.William VIVAR. J Nutr. 2004;135(2):317-22.Performed at: - [facility] [address] [id number]Lab Director: Alma Rodríguez MD, Phone: [phone] :[phone] COMP METABOLIC GAP 9 (Normal) Range: [...] >240 mg/dL High Risk :19 VIT D,25 68020 55.3 ng/mL (Normal) Range: 32.0-100.0 Comments: Recent studies consider the lower limit of 32.0 ng/mL to bradley threshold for optimal health.William VIVAR. J Nutr. 2005 Aug;135(2):317-22.Performed at: [facility] [address]He[place] [address]Lab Director: Alma Rodríguez MD, Phone: [phone] 74-Bnp-08320:00 BILAT SCRN DIGITAL & CAD Radiology Report [...] on 06/14/10 135 Sign by: SLOANE TRIVEDI 75-Mcx-48131:57 COMP METABOLIC ALK P 82 U/L (Normal) [...] CHOL 204 mg/dL (Abnormal) Comments: <200 mg/dL Dkvgbbyid726-379 mg/dL Borderline>240 mg/dL High Risk HDL 48 mg/dL (Normal) Comments: Reference RangeHDL <40 mg/dL Low HDL CholesterolHDL >or= 60 mg/dL High HDL Cholesterol LDL 136 mg/dL (Abnormal) Range: 0-130 TRIG 102 mg/dL (Normal) Comments: Serum Triglycerides Reference IntervalNormal <150 mg/dLBorderline high 150 - 199 mg/dLHigh 200 - 499 mg/ dLVery High > or = 500 mg/dL :57 VIT D,25 25286 53.8 ng/mL (Normal) Range: 32.0-100.0 Comments: Recent studies consider the lower limit of 32.0 ng/mL to bradley threshold for optimal health.William VIVAR. J Nutr. 2004;135(2):317-22.Performed at: [facility] [address] [id number]Lab Director: Alma Rodríguez MD, Phone: [phone] :[phone] LIPID HDL 49 mg/dL (Normal) Comments: [...] CHOL 190 mg/dL (Normal) Comments: <200 mg/dL Avarpcciv826-542 mg/dL Borderline>240 mg/dL High Risk :13 LIVER ALB 3.6 g/dL (Normal) Range: 3.4-5.0 ALK P 92 U/L (Normal) Range: 50-136 ALT 21 U/L (Normal) Range: 12-78 AST 15 U/L (Normal) Range: 15-37 D BILI 0.13 mg/dL (Normal) Range: 0.00-0.30 T BILI 0.50 mg/dL (Normal) Range: 0.00-1.00 T PROT 6.9 g/dL (Normal) Range: 6.4-8.2 :13 VIT D,25 12870 36.7 ng/mL (Normal) Range: 32.0-100.0 Comments: Recent studies consider the lower limit of 32.0 ng/mL to bradley threshold for optimal health.William VIVAR. J Nutr. 2004;135(2):317-22.Performed at: [address] [id number] Director: Milan Torres MD 4-Khl-759711:43 ABDOMEN/PELVIS WITH CONTRAST Radiology Report See Note (Normal) Comments: Exam Number: [id number] CLINICAL:Abdominal pain. CT ABDOMEN AND PELVIS WITH [...] significant spondylolisthesis. Reported By: LUZ VALERA M.D. 79-Qdf-40305:14 CBCD,SMEAR DIFF BAND 2 % (Normal) Range: [...] {uIU/mL} (Normal) Range: 0.358-3.74 :14 VIT D,25 96752 38.9 ng/mL (Normal) Range: 32.0-100.0 Comments: Recent studies consider the lower limit of 32.0 ng/mL to bradley threshold for optimal health.William VIVAR. J Nutr. 2004;135(2):317-22.Performed At: [place] [id number] [place], [place] [id number] :10 C-REACTIVE PROT 40.70 mg/L (Abnormal) Range: 0.0-3.0 Comments: C-Reactive Protein (CRP) provides useful information for thediagnosis, therapy and monitoring of inflammatory processesand associated diseases. For the evaluation of Relative Riskfor Cardiovascular Dise ase, a High Sensitivity CRP (HSCRP)should be ordered. :10 ESR SED RATE 50 (Abnormal) Range: 0-20 :03 Urinalysis, Office (20424) UA - BILIRUBIN Negative (Normal) UA - [...] $$$ <=4 S TRIMETHOPRIM/SULFAMETHOXAZO $ >=320 R 09-Kzx-53659:41 BILAT SCRN DIGITAL & CAD Radiology Report See Note (Normal) Comments: Exam Number: [id number] MAMMOGRAM, BILATERAL SCREENING DIGITAL AND CAD HISTORYRoutine [...] mammograms werealso examined with computer-aided detection software ([employer], [employer] Reported By: SLOANE TRIVEDI M.D. 70-Ulu-67627:55 BMP BUN 20 mg/dL (Abnormal) Range: 7-18 [...] 15.9 - 54.0 Contraceptives 0.7 - 5.6 75-Qit-247135:22 PROLACTIN 4465 10.3 ng/mL (Normal) Range: 2.8-29.2 [...] 208.5 Postmenopausal 1.8 - 20.3Per formed At: [address] [id number] 59-Wiv-732468:22 ROUTINE UA BILIRUBIN URINE SeeNote (Normal) Comments: [...] Report See Note (Normal) Comments: Exam Number: [id number] CLINICAL: Headaches, memory loss MRI BRAIN WITH [...] a demonstrated aneurysm or occlusion of the soboba of Vill[place]. There is no extra-axial fluid [...] {uIU/mL} (Normal) Range: 0.34-4.82 :08 VIT D,25 29718 38.2 ng/mL (Normal) Range: 32.0-100.0 Comments: Recent studies consider the lower limit of 32.0 ng/mL to bradley threshold for optimal health.William VIVAR. J Nutr. 2004;135(2):317-22.Performed At: [facility] [place], [place] [id number] :08 VITAMIN B12 316 pg/mL (Normal) Range: 211-911 :52 BRAIN/HEAD WITHOUT CONTRAST Radiology Report See Note (Normal) Comments: Exam Number: [id number] CLINICAL:58 year old female with 39 year [...] further evaluation. Reported By: SLOANE VARGAS M.D. 35-Xav-671884:49 KIDNEY (HP) Radiology Report See Note (Normal) Comments: Exam Number: [id number] CLINICAL:Renal insufficiency RENAL ULTRASOUND COMPARISON:None. FINDINGS: The [...] 3.5-5.1 NA 141 mmol/L (Normal) Range: 136-145 74-Eoa-168042:25 CHEST, PA AND LATERAL (MT) Radiology Report See Note (Normal) Comments: Exam Number: [id number] CHEST PA AND LATERAL STATEMENTLeft sided rib [...] Comments: GLU,2HPPG 75gm GLUC PPG GLUP from 0606:E33378G. Comments: Glucose result less than 50 mg/dL [...] 6.7 g/dL (Normal) Range: 6.4-8.2 :42 EBVIgG/M 759802 EB-EA IgG 96980 143 AU/mL (Abnormal) Range: 0-99 Comments: Negative <100 Equivocal 100 - 120 Positive >120 EB-NAg [id number] 1871 AU/mL (Abnormal) Range: 0-99 Comments: Negative <100 Equivocal 100 - 120 Positive >120 EB-VCA [id number] 3769 AU/mL (Abnormal) Range: 0-99 Comments: Negative <100 Equivocal 100 - 120 Positive >120 EB-VCA [id number] 13 AU/mL (Normal) Range: 0-99 Comments: Negative [...] + Antibody Present - Antibody AbsentPerformed At: [facility] [id number] [place], [place] [id number] :42 ROUTINE UA BILIRUBIN URINE SeeNote (Normal) [...] Report See Note (Normal) Comments: Exam Number: [id number] MAMMOGRAM, BILATERAL SCREENING DIGITAL AND CAD HISTORYRoutine [...] examined with computer-aided detection softw are (Imagechecker, [employer], Inc[employer] Reported By: SLOANE TRIVEDI M.D. :34 BIBIANA-D [id number] BIBIANA-DIRECT 51 AU/mL (Normal) Range: 0-99 Comments: [...] {IU/mL} (Normal) Range: 0.0-13.9 Comments: Performed At: [address] [id number] :34 TSH 2.12 {uIU/mL} (Normal) Range: 0.34-4.82 [...] T PROT 6.5 g/dL (Normal) Range: 6.4-8.2 67-Azq-898459:08 CULTURE, URINE URINE CULTURE See Note {CFU/mL} [...] $$$ <=16 S TRIMETHOPRIM/SULFAMETHOXAZ $$ <=10 S 04-Aab-314626:08 ROUTINE UA BILIRUBIN URINE SeeNote (Normal) Comments: [...] 0.2 EU/dl (Normal) Range: 0.2 - 1.0 17-Jvh-338249:45 CULTURE, URINE URINE CULTURE See Note {CFU/mL} [...] $$$ <=16 S TRIMETHOPRIM/SULFAMETHOXAZ $$ <=10 S 29-Ere-15910:30 LIPID CHOL 181 mg/dL (Normal) Comments: <200 [...] (Normal) Comments: Result: Reviewed Reactive lymphocytes noted. eJsus Jeanih 07/30/06 PLT 370 K/mm3 (Normal) Range: [...] WBC 0 SEEN {/hpf} (Normal) Range: 0-5 8-Dave-60037:55 PFLIP CHOL 170 mg/dL (Normal) Comments: <200 [...] Migraine Planned Observations C-REACT PROT HIGH SENS(hsCRP) (98314)Indication: Pain in unspecified joint On: :28 Request Sedimentation Rate-ESR (75559)Indication: Pain in unspecified joint On: :27 Request Metabolic Panel, Comprehensive (09907)Indication: Pain in unspecified joint On: :27 Request CBC (Auto) (75275)Indication: Pain in unspecified joint On: :27 Request FECAL OCCULT- Tubes sent home (38229)Indication: Encounter for screening for malignant neoplasm of colon (Renamed from Special screening for malignant neoplasms, colon) On: 9-Oua-833701:14 Request CBC WITH MANUAL DIFF (47824)Indication: Abnormal WBC count On: 18-Grg-269508:12 Request METABOLIC PANEL, COMPREHENSIVE (35001)Indication: Mixed hyperlipidemia On: 45-Ofy-575373:15 Request CBC W/AUTO DIFF WBC (70262)Indication: Mixed hyperlipidemia On: 72-Nsx-448241:15 Request LIPID PANEL (40857)Indication: Mixed hyperlipidemia On: 88-Xrf-345243:15 Request TSH (24603)Indication: Anxiety On: 85-Eed-653458:15 Request CALCIFIDIOL (30990) VIT D 25Indication: Vitamin D deficiency, unspecified On: 67-Dzz-582973:15 Request CALCIFEDIOL (14339)Indication: Vitamin D deficiency, unspecified On: 20-Sep-20159:12 Request EBV Panel (04695)Indication: Fatigue On: 23-Ssf-082673:51 Request SPEP (04436)Indication: Abnormal CBC On: 80-Kvr-920741:43 Request UPEP (63225)Indication: Abnormal CBC On: 15-Bpg-752858:30 Request serum free light chains (60022)Indication: Abnormal CBC On: :29 Request urine immunofixation (81805)Indication: Abnormal CBC On: :29 Request serum immunofixation (34686)Indication: Abnormal CBC On: :29 Request LIPID PANEL (32963)Indication: Mixed hyperlipidemia On: 03-Mbm-566361:46 Request CALCIFIDIOL (28558) VIT D 25Indication: Vitamin D deficiency, unspecified On: 95-Kus-639692:41 Request METABOLIC PANEL, COMPREHENSIVE (89395)Indication: Mixed hyperlipidemia On: 68-Dzm-403593:12 Request LIPID PANEL (42518)Indication: Mixed hyperlipidemia On: :12 Request CBC WITH MANUAL DIFF (02224)Indication: postmenopausal without estrogen On: :02 Request METABOLIC PANEL, COMPREHENSIVE (99986)Indication: postmenopausal without estrogen On: :02 Request CALCIFIDIOL (96953) VIT D 25Indication: Vitamin D deficiency, unspecified On: :01 Request CALCIFEDIOL (71990)Indication: Vitamin D deficiency, unspecified On: 57-Ibq-711698:26 Request CBC WITH MANUAL DIFF (77091)Indication: Mixed hyperlipidemia On: :26 Request Metabolic Panel, Comprehensive (07021)Indication: Mixed hyperlipidemia On: 12-Hcp-018104:26 Request Lipid Panel (80348)Indication: Mixed hyperlipidemia On: :26 Request METABOLIC PANEL, COMPREHENSIVE (58086)Indication: Mixed hyperlipidemia On: :47 Request LIPID PANEL (52929)Indication: Mixed hyperlipidemia On: :47 Request CALCIFIDIOL (94350) VIT D 25Indication: Vitamin D deficiency, unspecified On: :47 Request EBV Panel (36491)Indication: Hepatitis On: :38 Request CMV IGM ANTBDY (33630)Indication: Hepatitis On: :38 Request CMV ANTIBODY (48628)Indication: Hepatitis On: 04-Ect-88639:38 Request CALCIFEDIOL (15605)Indication: Mixed hyperlipidemia On: :56 Request CBC with manual diff (05972)Indication: Mixed hyperlipidemia On: :56 Request Metabolic Panel, Comprehensive (16509)Indication: Mixed hyperlipidemia On: :56 Request TSH (THYROID STIMULATING HORMONE) (82677)Indication: Mixed hyperlipidemia On: 76-Iyl-855045:56 Request LIPID PANEL (85208)Indication: Mixed hyperlipidemia On: :55 Request HEPATIC FUNCTION PANEL (56882)Indication: Mixed hyperlipidemia On: :55 Request HEPATIC FUNCTION PANEL (49845)Indication: Unspecified Diagnosis On: 43-Qja-276657:25 Request Rapid Strep Test, Office (78041)Indication: Pharyngitis, acute On: 29-Zjd-437464:05 Request Metabolic Panel, Comprehensive (15284)Indication: Epigastric Pain (Renamed from Abdominal pain, epigastric) On: 76-Sig-253967:24 Request Comments: labs stat. Lipase (18861)Indication: Epigastric Pain (Renamed from Abdominal pain, epigastric) On: :24 Request Amylase (86274)Indication: Epigastric Pain (Renamed from Abdominal pain, epigastric) On: :24 Request CBC, Platelets & Auto Diff (97548)Indication: Epigastric Pain (Renamed from Abdominal pain, epigastric) On: 83-God-892752:24 Request URINE MICHI CULTURE-IDENTIFICATN (36947)Indication: Hematuria (Renamed from Blood in the urine) On: 64-Xzo-505402:23 Request ASM (ANTI SMOOTH MUSCLE ANTIBODY) (09973)Indication: Abnormal finding of blood chemistry, unspecified On: 41-Prx-490750:26 Request CERULOPLASMIN (78922)Indication: Abnormal finding of blood chemistry, unspecified On: 22-Dep-762746:26 Request FERRITIN (38623)Indication: Abnormal finding of blood chemistry, unspecified On: 42-Lan-105470:26 Request HEPATIC FUNCTION PANEL (81517)Indication: Mixed hyperlipidemia On: 65-Lqd-308625:47 Request HEPATIC FUNCTION PANEL (36666)Indication: Abnormal finding of blood chemistry, unspecified On: 73-Ywi-870359:17 Request Comments: 1 week HEPATIC FUNCTION PANEL (59917)Indication: Migraine On: :26 Request TSH (31879)Indication: Migraine On: 60-Bvs-184970:26 Request HEPATITIS PANEL (96609)Indication: Abnormal finding of blood chemistry, unspecified On: :25 Request EBV Panel (29199)Indication: Abnormal finding of blood chemistry, unspecified On: 54-Vnq-891969:24 Request Vitamin D Hydroxy (68675)Indication: Vitamin D deficiency, unspecified On: :42 Request CBC WITH MANUAL DIFF (21459)Indication: Irritable bowel syndrome On: :42 Request METABOLIC PANEL, COMPREHENSIVE (69363)Indication: Irritable bowel syndrome On: :42 Request LIPID PANEL (59087)Indication: Mixed hyperlipidemia On: :42 Request CALCIFEDIOL (41705)Indication: Vitamin D deficiency, unspecified On: :06 Request CBC with manual diff (18753)Indication: Mixed hyperlipidemia On: : Request Lipid Panel (14603)Indication: Mixed hyperlipidemia On: : Request Metabolic Panel, Comprehensive (45546)Indication: Mixed hyperlipidemia On: :06 Request Vitamin D Hydroxy (89847)Indication: Vitamin D deficiency, unspecified On: :17 Request CBC WITH MANUAL DIFF (66487)Indication: Lung nodule On: :17 Request METABOLIC PANEL, COMPREHENSIVE (54798)Indication: Irritable bowel syndrome On: :17 Request LIPID PANEL (95150)Indication: Mixed hyperlipidemia On: 86-Zqv-139776:07 Request C-REACTIVE PROTEIN (46222)Indication: Chest pain On: :20 Request SED RATE ERYTHROCYTE (80800)Indication: Chest pain On: :20 Request METABOLIC PANEL, COMPREHENSIVE (77771)Indication: Chest pain On: :20 Request CBC WITH MANUAL DIFF (72449)Indication: Chest pain On: :20 Request D-Dimer (88376)Indication: Chest pain On: :20 Request Comments: stat METABOLIC PANEL, COMPREHENSIVE (87987)Indication: Osteopenia On: 71-Inp-566702:00 Request TSH (89354)Indication: Depressive disorder On: 77-Wla-833286:58 Request LIPID PANEL (50611)Indication: Mixed hyperlipidemia On: 73-Kkd-712966:57 Request Vitamin D Hydroxy (59129)Indication: Vitamin D deficiency, unspecified On: 02-Mpw-610735:57 Request Metabolic Panel, Comprehensive (90634)Indication: Hypopotassemia On: 77-Unz-301163:58 Request CALCIFEDIOL (35723)Indication: Vitamin D deficiency, unspecified On: 75-Pso-024768:58 Request Lipid Panel (73792)Indication: Mixed hyperlipidemia On: 96-Tly-303336:57 Request METABOLIC PANEL, COMPREHENSIVE (69645)Indication: Migraine On: :53 Request LIPID PANEL (73820)Indication: Mixed hyperlipidemia On: 24-Pif-330620:53 Request Vitamin D Hydroxy (75012)Indication: Vitamin D deficiency, unspecified On: 75-Ayo-037805:53 Request Vitamin D Hydroxy (44735)Indication: Vitamin D deficiency, unspecified On: 73-Spn-997535:49 Request METABOLIC PANEL, COMPREHENSIVE (94265)Indication: Irritable bowel syndrome On: 17-Soy-883447:48 Request LIPID PANEL (21965)Indication: Mixed hyperlipidemia On: 37-Uqf-437221:48 Request METABOLIC PANEL, COMPREHENSIVE (86550)Indication: Hypopotassemia On: 91-Hoq-258769:56 Request LIPID PANEL (11985)Indication: Mixed hyperlipidemia On: 31-Obm-760531:56 Request Vitamin D Hydroxy (02409)Indication: Vitamin D deficiency, unspecified On: 40-Wfr-852189:56 Request HEPATIC FUNCTION PANEL (52329)Indication: Mixed hyperlipidemia On: 29-Gas-833896:07 Request LIPID PANEL (55352)Indication: Mixed hyperlipidemia On: 66-Lfo-661126:07 Request URINE MICHI CULTURE-IDENTIFICATN (22054)Indication: Dysuria On: 6-Kid-843348:40 Request URINALYSIS W/O MICRO (02076)Indication: Other signs and symptoms in breast On: 51-Wpi-946411:31 Request METABOLIC PANEL, COMPREHENSIVE (02661)Indication: Other signs and symptoms in breast On: 54-Lcr-176787:31 Request TSH (09610)Indication: Other signs and symptoms in breast On: 21-Yii-897342:31 Request Vitamin D Hydroxy (34163) On: :30 Request CBC WITH MANUAL DIFF (46608) On: :30 Request METABOLIC PANEL, COMPREHENSIVE (13373) On: 7-Die-080928:30 Request VITAMIN B-12 (CYANOCOBALAMIN) ([id number]) On: 1-Fpo-666306:30 Request TSH ([id number]) On: :30 Request Metabolic Panel, Basic (47559) On: 72-Ovn-263690:21 Request HEPATIC FUNCTION PANEL (11698)Indication: Mixed hyperlipidemia On: 36-Gsz-037217:21 Request LIPID PANEL (64729)Indication: Mixed hyperlipidemia On: 39-Rfu-583370:21 Request METABOLIC PANEL, COMPREHENSIVE (78854)Indication: Hypoglycemia On: 00-Bbt-813660:51 Request LIPID PANEL (40147)Indication: Low HDL (under 40) On: 78-Urv-069278:45 Request Glucose, PP/2 Hour (92925)Indication: Fatigue On: 0-Alg-195692:03 Request VITAMIN B-12 (CYANOCOBALAMIN) ([id number])Indication: Fatigue On: 6-Wyu-032950:03 Request URINALYSIS W/O MICRO (78203)Indication: Fatigue On: 8-Xdh-336831:03 Request TSH ([id number])Indication: Fatigue On: 1-Wsq-887398:03 Request CBC WITH MANUAL DIFF ([id number])Indication: Fatigue On: 2-Bml-364102:03 Request METABOLIC PANEL, COMPREHENSIVE (80280)Indication: Fatigue On: 8-Ldf-503798:03 Request BIBIANA (ANTINUCLEAR ANTIBODY) ([id number])Indication: Pain in unspecified joint On: 0-Hyy-005503:28 Request C-REACTIVE PROTEIN ([id number])Indication: Pain in unspecified joint On: 1-Xsy-361533:28 Request CBC WITH MANUAL DIFF ([id number])Indication: Pain in unspecified joint On: 4-Kas-591489:28 Request METABOLIC PANEL, COMPREHENSIVE (69431)Indication: Pain in unspecified joint On: 6-Lws-933905:28 Request RHEUMATOID FACTOR-QUANT (75662)Indication: Pain in unspecified joint On: 3-Jat-497830:28 Request SED RATE ERYTHROCYTE ([id number])Indication: Pain in unspecified joint On: 1-Pjl-466170:28 Request TSH ([id number])Indication: Pain in unspecified joint On: 6-Pja-737561:28 Request METABOLIC PANEL, COMPREHENSIVE (19437)Indication: Low HDL (under 40) On: :26 Request LIPID PANEL (32030)Indication: Low HDL (under 40) On: : Request LIPID PANEL (07935)Indication: Low HDL (under 40) On: :41 Request HEPATIC FUNCTION PANEL ([id number])Indication: Low HDL (under 40) On: : Request Comments: 4 mos LIPID PANEL (60620)Indication: Low HDL (under 40) On: : Request Comments: 3 mos HEPATIC FUNCTION PANEL (60651)Indication: Low HDL (under 40) On: : Request Comments: 3 mos Planned Procedures Flu Vaccine (Quadrivalent) On: 27-May-2018 Intent 39310Lf: Rylee Bales DO Comments: Lot #[id number]-L dltd, IMDose prefilled syringegiven by: Nohemy reviewed and ABN signed Rylee Bales DO Wax CurettesBy: Nii ABREU, On: 12-Feb-2018 Intent Rylee Nelson DO Ear Irrigation (05950)By: On: 12-Feb-2018 Intent Rylee Bales DO, DO, Comments: small amount of yellow was irrigated out of right ear, patient tolerated without difficulty ear wax currette used to remove remainder of wax Rylee X-RAY OF SHOULDER, TWO VIEWS On: 12-Feb-2018 Intent (05964)By: yRlee Bales DO, DO, Kathleen ELECTROCARDIOGRAM, COMPLETE On: 12-Feb-2018 Intent (ECG) ([id number])By: Rylee Bales DO, DO, Kathleen Ultrasound - ThyroidBy: Nii On: 30-Jan-2018 Intent Rylee ABREU DO, Kathleen Wax CurettesBy: Dasia Oliver On: 12-Sep-2017 Intent Ear Irrigation ([id number])By: On: 12-Sep-2017 Intent Dasia Oliver X-RAY OF HAND, THREE VIEWS On: 16-Aug-2017 Intent (54545)By: Nii DO, Rylee Nii DO, Rylee Radiology - Abdomen SeriesBy: On: 02-Jul-2017 Intent Nii DO, Rylee Nii DO, Comments: FLAT PLATE Rylee ACUTE ABDOMINAL SERIES On: 27-Jun-2017 Intent (97526)By: Nii DO, Rylee Nii DO, Rylee Flu Vaccine (Quadrivalent) On: 28-May-2017 Intent 21481Wp: Nii DO, Rylee Comments: lot: [id number]: 01/06/18ite/route: L freddy, IMamt: 0.5mlVIS and ABN signed when applicableChelsea, ENERGY ASSISTANT Nii DO, Rylee SCREENING DIGITAL On: 28-May-2017 Intent TOMOSYNTHESIS OF BREAST ([id number])By: Rylee Bales DO Nii DO, Rylee THYROID ULTRASOUND (73064)By: On: 02-Jan-2017 Intent Nii DO, Rylee Nii DO, Rylee Doppler Ultrasound OtherBy: On: 15-Aug-2016 Intent Nii DO, Rylee Nii DO, Comments: left lower extremity Rylee PNEUM VAC ADLT/IMUMNOSPR, On: 07-May-2016 Intent SBC/INTRM (30179)By: Nii Comments: Lot:[id number]:11/24/17Dose:0.5mgRoute:imSite:r arm Given By:DORIS signed DO, Rylee Nii DO, Rylee DEXA SCAN AXIAL SKELETON On: 25-Apr-2016 Intent ([id number])By: Nii DO, Rylee Nii DO, Rylee MAMMOGRAM, SCREENING, BOTH On: 25-Apr-2016 Intent BREAST (57574)By: Nii DO, Rylee Nii DO, Rylee Flu Vaccine (Quadrivalent) On: 25-Apr-2016 Intent 99516Ah: Hung Santos Comments: FLUlot: [id number]:01/05site:Lt deltoidroute:IMdose:.5mlDEMICK, MA DEXA SCAN AXIAL SKELETON On: 01-Mar-2016 Intent (95203)By: Nii DO, Rylee Nii DO, Rylee Radiology - ChestBy: Ciesa On: 13-Jun-2015 Intent MACHINE CLOTHING WORKER, Isabel Flu Vaccine (Quadrivalent) On: 27-Apr-2015 Intent 93411Dy: Manda Higginbotham MD Comments: Lot:[id number]:01/19/16Dose:0.5mLRoute:IMSite:L DltdGiven By:DORIS chi MAMMOGRAM, SCREENING, BOTH On: 15-Mar-2015 Intent BREAST (50630)By: Manda Higginbotham MD ELECTROCARDIOGRAM, COMPLETE On: 30-Dec-2014 Intent (ECG) (56924)By: Nii ABREU, Comments: nsr no acute chg Rylee Bales DO Rylee Prevnar 13 (81337)By: Anahy On: 03-Aug-2014 Intent Manda KRISHNAN SPECIMEN HANDLING/TRANSPORT On: 14-Jun-2014 Intent ([id number])By: Marlen Rosenbaum CNP IMMUNIZ ADMNIN, 1 VAC, On: 03-May-2014 Intent SNGL/COMBO (14024)By: Joey, Nurse FLU VAC, SPLIT, >3 YEARS, On: 03-May-2014 Intent INTRAMUSC (21161)By: Anahy Comments: Lot:[id number]:01/18/15Dose:0.5mLRoute:IMSite:L DltdGiven By:Manda Crum MD MAMMOGRAM, SCREENING, BOTH On: 09-Feb-2014 Intent BREAST (09279)By: Anahy KRISHNAN, Comments: due 07-04 Manda Torres DEXA SCAN AXIAL SKELETON On: 09-Feb-2014 Intent ([id number])By: Manda Higginbotham MD Comments: due 07-04 Eprescribed prescriptions On: 19-Nov-2013 Intent (G8553)By: Rylee Bales DO, DO, Kathleen Eprescribed prescriptions On: 02-Sep-2013 Intent (G8553)By: Marlen Rosenbaum CNP FLU VAC, SPLIT, >3 YEARS, On: 26-May-2013 Intent INTRAMUSC (26667)By: Anahy Comments: Lot:[id number]:Dose:0.5mLRoute:IMSite:L DltdGiven By:Manda Crum MD IMMUNIZ ADMNIN, 1 VAC, On: 26-May-2013 Intent SNGL/COMBO (39911)By: Francesca Crystal MAMMOGRAM, SCREENING, BOTH On: 14-May-2013 Intent BREASTS (53054)By: Anahy KRISHNAN, Manda Torres Eprescribed prescriptions On: 30-Dec-2012 Intent (G8553)By: Alaina Patricia LPN L Ultrasound - LiverBy: Fast DO, On: 10-Dec-[address] - ChestBy: Fast DO, Iwona A On: 09-Dec-2012 Intent Comments: december Eprescribed prescriptions On: 09-Dec-2012 Intent (G8553)By: Zabrina Farmer Eprescribed prescriptions On: 01-Aug-2012 Intent (G8553)By: Zabrina Farmer EKG (10884)By: Darian, On: 10-Jun-2012 Intent Zabrina Comments: ekg showed normal sinus rhythym, normal axis, no acute st/t wave changes Eprescribed prescriptions On: 10-Jun-2012 Intent (G8553)By: Fast DO, Iwona A DXA, BONE DENSITY, AXIAL On: 10-Jun-2012 Intent SKELETON ([id number])By: Fast DO, Iwona A CT - ChestBy: Fast DO, Iwona A On: 10-Jun-2012 Intent Eprescribed prescriptions On: 10-Jun-2012 Intent (G8553)By: Zabrina Farmer Breast Screening - On: 02-Jun-2012 Intent BilateralBy: Fast DO, Iwona A TDAP VACCINE >7 IM (62372)By: On: 04-Dec-2011 Intent Zabrina Farmer Comments: lot [id number] 06/02, L arm IM, perfileld Alaina CT - ChestBy: Fast DO, Iwona A On: 04-Dec-2011 Intent FLU VAC, SPLIT, >3 YEARS, On: 29-May-2011 Intent INTRAMUSC (25299)By: Darian, Comments: Lot: [id number]: 01/19/12Site: Lt DeltoidDose: Prefilled DoseARiding, ISHMAEL Gerber CT - ChestBy: Fast DO, Iwona A On: 29-May-2011 Intent IMMUNIZ ADMNIN, 1 VAC, On: 29-May-2011 Intent SNGL/COMBO (38235)By: Zabrina Farmer Pulse Oximetry (35378)By: Miguel On: 16-Feb-2011 Intent Iwona ABREU Comments: 99 CT - ChestBy: Iwona Rivera DO On: 16-Feb-2011 Intent Comments: stat-pe protocol- call wet read Radiology - ChestBy: Ilsa On: 06-Feb-2011 Intent Marlen SELLERS Xycvcamky-Ugf-Dhikj (27629)By: On: 06-Feb-2011 Intent Ciesa Marlen SELLERS Eprescribed prescriptions On: 03-Jan-2011 Intent (G8553)By: Iwona Rivera DO EKG (66839)By: Anahy KRISHNAN, On: 15-Dec-2010 Intent Manda Melissa Eprescribed prescriptions On: 17-Nov-2010 Intent (G8553)By: Iwona Rivera DO MAMMOGRAM, SCREENING, BOTH On: 06-Mar-2010 Intent BREASTS (93776)By: Iwona Rivera DO DXA, BONE DENSITY, AXIAL On: 06-Mar-2010 Intent SKELETON (05680)By: Iwona Rivera DO CT - Abdomen & PelvisBy: Miguel On: 22-Aug-2009 Intent Iwona ABREU PNEUM VAC ADLT/IMUMNOSPR, On: 22-Apr-2009 Intent SBC/INTRM (69479)By: Samantha Kumar RN IMMUNIZ ADMNIN, 1 VAC, On: 22-Apr-2009 Intent SNGL/COMBO (83773)By: Stacy STINSON, Comments: Lot #: [id number] date: mount given: 0.5 mlRoute: IMSite given: right deltoidGiven by: ISHMAEL Galindo IMMUNIZ ADMNIN, 1 VAC, On: 22-Apr-2009 Intent SNGL/COMBO (83984)By: Samantha Kumar RN FLU VAC, SPLIT, >3 YEARS, On: 22-Apr-2009 Intent INTRAMUSC (97057)By: Stacy STINSON, Comments: Lot #: [id number] date: mount given: 0.5 mlRoute: IMSite given: left deltoidGiven by: ISHMAEL Galindo Pulse Oximetry (60785)By: On: 15-Apr-[address] - Brain/HeadBy: Miguel ABREU, On: 19-Nov-2008 Intent Iwona Cevallos Radiology - ChestBy: Ilsa On: 14-Oct-2008 Intent Marlen SELLERS Pulse Oximetry (73650)By: On: 14-Oct-2008 Intent Ilsa SELLERS Marlen Phillips Comments: done BC Aerosol Treatment (72080)By: On: 14-Oct-2008 Intent Ilsa SELLERS Marlen Phillips Comments: done BC Spirometry (16211)By: On: 12-Oct-2008 Intent Zabrina Farmer Comments: good effort and curve normal MAMMOGRAM, SCREENING, BOTH On: 06-Oct-2008 Intent BREASTS (86317)By: Iwona Rivera DO Aerosol Treatment (81031)By: On: 08-Sep-2008 Intent Ilsa SELLERS Marlen Phillips Pulse Oximetry (05835)By: On: 08-Sep-2008 Intent Ilsa SELLERSMarlen EKG (41412)By: Nii ABREU, On: 02-Jul-2008 Intent Rylee Nelson DO Comments: nsr nothing acute-- v1-v1 lead placement(female) FLU VAC, SPLIT, >3 YEARS, On: 11-Jun-2008 Intent INTRAMUSC (76581)By: Darian, Comments: inj given left deltoid no complicationslot:[id number]:12/28 Zabrina IMMUNIZ ADMNIN, 1 VAC, On: 11-Jun-2008 Intent SNGL/COMBO (38312)By: Zabrina Farmer EKG (11709)By: Iwona Rivera DO On: 22-Dec-2007 Intent A Comments: ekg showed normal sinus rhythym, normal axis, no acute st/t wave changes MAMMOGRAM, SCREENING, BOTH On: 25-Aug-2007 Intent BREASTS (02136)By: Iwona Rivera DO IMMUNIZ ADMNIN, 1 VAC, On: 23-May-2007 Intent SNGL/COMBO (89221)By: Iwona Rivera DO FLU VAC, SPLIT, >3 YEARS, On: 23-May-2007 Intent INTRAMUSC (27075)By: Miguel ABREU, Comments: given 0.5cc im in left deltoid lot#[id number] exp.11/27-WF Iwona A Instructions Name Dates Details [...] The patient does have durable power of attorney general and living will. The patient has noticed [...] The patient does have durable power of attorney general and living will. The patient has noticed staying at home rather than doing something new or going out and lack of energy (thinks it is from the lupus). Other providers contributing to the patient's care are motor vehicle clerk (dr. chavez), urologist (dr. bhatti) and ot her: (costume maker dr. beaulieu). 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 The medical issues the patient is following up for include other (rib pain on R side). Note for Follow up acute care visit: went to [place]- drove 500 miles - no leg pain [...] - still getting 3 migranes a week- bi developer feels it is whether change and allergies- [...]
--- OUTSIDE RECORDS SUMMARY | 2018-10-09 01:37 | XMS RPT_ITS | Continuity of Care Document ---
:1950 Author Organization [facility] Address [address] [place] [address] Phone Care Team Providers Name Role Phone Rylee Bales DO Unavailable Jonas KRISHNAN, Fadumo Porter Unavailable Dr. Joaquim Hough Unavailable Deuce Soto Unavailable Herb KRISHNAN, Jj Phillips Unavailable Merari Lam Unavailable [facility], [facility] Unavailable ISHMAEL Arana Unavailable Unavailable Binta Cruz Unavailable Unavailable Unavailable Unavailable Problems Name Dates [...] Active Anxiety (F41.9, 300.00) Status: Active BMI 30.0-30.9,adult (Z68.30, V85.30) Status: Active BMI 31.0-31.9,adult (Z68.31, V85.31) Status: [...] 714.9) Comments: see Dr. deutsch. plaquenil helps CONTACT LENS ASSISTANT elevated. from Lupus. get eye exam and [...] 90 days Quantity: 180 {Tablet} Refills: 3 Ordered:18-Jun-2018 Hiro Bales DO, DO, Kathleen Start : 18-Jun-2018 Active BuPROPion HCl ER (SR) 150 MG Oral Tablet Extended Release 12 Hour 1 (one) Tablet ER 12HR bid for 0 days Quantity: 180 {Tablet} Refills: 3 Ordered:18-Jun-2018 Hiro Bales DO, DO, Kathleen Start : 18-Jun-2018 Active CALCIUM, 500MG (Oral Tablet) qd (500 MG) Active CeleXA 10 MG Oral Tablet 1 (one) Tablet Tablet qd for 30 days Quantity: 30 {Tablet} Refills: 2 Ordered:15-Apr-2018 Hiro Bales DO, DO, Kathleen Start : 15-Apr-2018 Active Dexilant 60 MG Oral Capsule Delayed Release 1 (one) Capsule qhs for 0 days Quantity: 30 {Capsule} Refills: 3 Ordered:07-Jul-2018 Hiro Bales DO, DO, Kathleen Start : 07-Jul-2018 Active Flunisolide 25 MCG/ACT (0.025%) Nasal Solution 1 (one) Kinsey Kinsey each nostril qd for 0 days Quantity: 1 {Kinsey} Refills: 2 Ordered:12-Feb-2018 Dasia Arana LPN Start : 12-Feb-2018 Active Lasix 20 MG Oral Tablet 1 (one) Tablet qd prn for 0 days Quantity: 30 {Tablet} Refills: 0 Ordered:31-Mar-2018 Hiro Bales DO, DO, Kathleen Start : 31-Mar-2018 Active TraZODone HCl 100 MG Oral Tablet [...] qd (81 MG) End : 17-Nov-2010 Inactive ASPIRIN LOW DOSE, 81MG (Oral Tablet) 1 tab qd for 0 days Refills: 0 Ordered:03-Mar-2008 Zabrina Farmer End : 03-Mar-2008 Inactive ASTELIN, 137MCG/SPRAY (Nasal Solution) 1 spray [...] Quantity: 90 {Tablet} Refills: 2 Ordered:27-Jun-2017 Dasia Araan LPN Start : 17-Jun-2017 End : 27-Jun-2017 Inactive BUSPIRONE HCL, 30MG (Oral Tablet) 1 tab Tablet q hs for 90 days Quantity: 90 {Tablet} Refills: 3 Ordered:06-Feb-2011 Bryan ISHMAELPat Start : 25-Aug-2010 End : 06-Feb-2011 Inactive CeleXA 10 MG Oral Tablet 1 Tablet qd for 0 days Quantity: 30 {Tablet} Refills: 3 Ordered:07-Jul-2018 Dasia Arana LPN Start : 23-Dec-2017 End : 07-Jul-2018 Inactive CIPRO, 250MG (Oral Tablet) 1 Tablet bid for 7 days Quantity: 14 {Tablet} Refills: 0 Ordered:30-Mar-2009 Ilsa SELLERSMarlen Start : 30-Mar-2009 End : 14-Apr-2009 Inactive CIPRO, 500MG (Oral Tablet) 1 (one) Tablet bid for 7 days Quantity: 14 {Tablet} Refills: 0 Ordered:14-Jun-2014 Ilsa SELLERSMarlen Start : 14-Jun-2014 End : 21-Jun-2014 Inactive [...] Start : 02-Aug-2015 End : 01-Sep-2015 Inactive FiberCon 625 MG Oral Tablet 4 qd (625 MG) Inactive FIORICET, 50-325-40MG (Oral Tablet) 2 tabs [...] for prevention of uti (100 MG) Inactive Magnesium Citrate 1.745 GM/30ML Oral Solution 1 (one) Milliliter Milliliter daily for 0 days Quantity: 1 {Milliliter} Refills: 0 Ordered:07-Jul-2018 Dasia Arana LPN Start : 02-Jul-2017 End : 07-Jul-2018 Inactive MELATONIN, 3MG (Oral Tablet) 1 tab q hs, prn for 0 days Refills: 0 Ordered:15-Apr-2009 MELISSA Carreno End : 15-Apr-2009 Inactive Meloxicam 15 MG Oral Tablet 1 (one) Tablet qd with food for 0 days Quantity: 20 {Tablet} Refills: 0 Ordered:07-Jul-2018 Dasia Arana LPN Start : 12-Feb-2018 End : 07-Jul-2018 Inactive METRONIDAZOLE, 0.75% (External Gel) 1 (one) [...] Nasonex 50 MCG/ACT Nasal Suspension 1 (one) Kinsey qd each nostril for 0 days Quantity: [...] days Quantity: 6 {Tablet} Refills: 0 Ordered:14-Jun-2014 Ilsa SELLERSMarlen E Start : 14-Jun-2014 End : 16-Jun-2014 Inactive [...] discontinued per [employer]. CALCIUM 500 + D, [id number] (PO Tab) 2 tabs qd for 0 [...] days Quantity: 24 {Tablet} Refills: 3 Ordered:17-Nov-2010 Fast DO, Iwona A Start : 17-Nov-2010 End : 17-Nov-2010 Discontinued VICODIN, 5-500MG (Oral Tablet) 1 tid/prn for 0 days Refills: 0 Ordered:17-Dec-2012 Trish Shelley LPN End : 17-Dec-2012 Discontinued Comments:This order discontinued per [employer]. VITAMIN D (ERGOCALCIFEROL), [id number] (Oral Capsule) 1 (one) Capsule Capsule once [...] (R79.9, 790.6) Status: Inactive as of 09-Feb-2014 Bronchitis (J40, 490) Status: Inactive as of [...] 30-Dec-2008 Unspecified Diagnosis Status: Inactive as of 17-Nov-2010 Unspecified Diagnosis Status: Inactive as of 09-Feb-2014 Vaginal dryness (N89.8, 625.8) Status: Inactive as [...] Summary (1) Result: Comments: See Note; NOTES: [facility] [address] [place], [place] [address] Fax REHABILITATION SERVICES ISHMAEL TAN SUMMARY MR#: [id number] Acct: [id number] Name: SUSANNE TORRES Rep #: [id number] : 1950 68 From: Mitch Leonard DPT, OCS, CSCS Referring DrJayden: Rylee Bales DO Status: REG RCR Insurance [...] will also do machines as instructed at [employer]. Still avoid pulling weeds and heavy lifting [...] please feel free to call me at [phone]. Thank you for the referral of this patient. Sincerel y, Mitch Leonard DPT, OC <Electronically signed by Mitch Leonard DPT, CÉSAR, CSCS> 03/20/18 0932 CC: Rylee Bales DO EBG Signed 04-Mar-2018 Re-Evaluation - PT (1) Result: Comments: See Note; NOTES: [facility] [address] [place], [place] [address] Fax [facility] MR#: [id number] Acct: [id number] Name: SUSANNE TORRES Rep #: [id number] : 1950 68 From: Mitch Leonard DPT, [...] the blue while I was sitting at [employer] my shldr just starting hurting worse. Reports the pain to be located in the front and under the shldr joint. Objective/Function: Review of postural maintainence so as to not exacerbate symptoms while sitting at [employer]. Pt states, I guess I wasn't really paying a ttention to how I was sitting. Minimal progression today in reps of current exc, however able to tolerate newly added shldr flexion and ABD exc with wts against gravity. While working on [email or web address], pt tripped on lower portion of machine [...] do not hesitate to contact me at [phone] by phone or if you have questions or concerns regarding this new plan of care! Sincerely, Mitch Leonard DPT, OC <Electronically signed by Mitch Leonard DPT, OCS, CSCS> 0 03/04/18 0939 CC: Rylee Bales DO EBG Signed For Medicare only, by signing this I certify the plan of care. Physicians Signature Date 19-Feb-2018 Inital Evaluation (1) - PT Result: Comments: See Note; NOTES: [facility] [address] [place], [place] [id number] Fax REHABILITATION SERVICES INITIAL EVALUATION MR#: [id number] Acct: [id number] Name: SUSANNE TORRES Rep #: [id number] : 1950 68 From: Mitch Leonard DPT, [...] abd. An d with IR. + R alicia Domenic and + R neer. Tender to palpation [...] to be FAXED BACK to us at [phone] for Medicare purposes. Please let me know if there are questions or concerns regarding this plan of care. Physician Signature: Date: <Electronically signed by Mitch Leonard DPT, OCS, CSCS> 02/19/18 0722 CC: Rylee Bales DO EBG Signed For Me dicare only, by signing this I certify the plan of care. Physicians Signature Date 13-Feb-2018 Shoulder min 2 Views Result: Comments: See Note; NOTES: [facility] Imaging Services [address] [place] [address] Shoulder min 2 Views MR#: [id number] Acct: [id number] Name: SUSANNE TORRES Rep #: [id number] : 1950 F 68 From: Hector Oliveira MD PCP: Rylee Bales DO Status: REG CLI Study: Shoulder min 2 Views Date of Exam: 02/13/18 Exam# [id number] Ordering Dr: Rylee Bales DO STUDY: X-R [...] Service support , CC: Rylee Bales DO Commercial Helicopter Pilot: Signed 04-Feb-2018 Thyroid Result: Comments: See Note; NOTES: [facility] Imaging Services [address] [place] [address] Thyroid MR#: [id number] Acct: [id number] Name: SUSANNE TORRES Rep #: [id number] : 0 1950 F 68 From: Bayron Payan MD PCP: Rylee Bales DO Status: REG CLI Study: Thyroid Date of Exam: 02/04/18 Exam# [id number] Ordering Dr: Rylee Bales DO STUDY: THYROID [...] Bayron Payan MD at 10:35 EDT Tel [phone], Service support , CC: Rylee Bales DO Commercial Helicopter Pilot: Signed 16-Oct-2017 PT D/C Summary (1) Result: Comments: See Note; NOTES: [facility] [address] [place] [address] Fax REHABILITATION SERVICES DISCHAR GE SUMMARY MR#: [id number] Acct: [id number] Name: SUSANNE TORRES Rep #: [id number] : 1950 67 From: Martín Arteaga DPT Referring Dr.: Rylee Bales DO Status: REG RCR Insurance: MEDICAR E PART A B [employer] HP - PT D/C Summary It has been my pleasure to treat SUSANNE TORRES under orders from DR.KFEARO Leslie for the diagnosis of for a total [...] please feel free to call me at [phone]. Thank you for the referral of this patient. Syedr Martín damian <Electronically signed by Martín Arteaga DPT> 10/16/17 0958 CC: Rylee Bales DO CLS Signed 12-Oct-2017 Urgent Care Visit Report Result: Comments: See Note; NOTES: [facility] [address] [place] [address] OFFICE VISIT Date of Service: 10/12/17 MR#: [id number] Acct: [id number] Name: SUSANNE TORRES Ivan Rep #: [id number] : 1950 Provider: Lillian Myers Age/Sex: 67/F [place] [facility] Status: Signed Intake Vital Signs10/12/17 Height 5 [...] any improvement advised that she see her audiology assistant. Medications New: Coding Level of Care Code [...] General: cooperative, no acute distress, well developed [facility] Head: normal to inspection, atraumatic Ears: hearing [...] any improvement advised that she see her audiology assistant. Medications New: Coding Level of Care Code Off vis,est,level 4 Diagnoses Cellulitis of other specified site L03.818 Site of cell ulitis: other site 10/12/17 1020 <Electronically signed by Lillian FLORES> Date Lillian FLORES Cosigner Signatur e: Date (if applicable) CC: 24-Sep-2017 PT Communication Result: Comments: See Note; NOTES: [facility] [address] [place] [address]. [address] [place] [address] Fax REHABILITATION SERVICES PROGRES S NOTE MR#: [id number] Acct: [id number] Name: SUSANNE TORRES Rep #: [id number] : 1950 67 From: Tatiana Wagner MPT Referring Dr.: Rylee Bales DO Status: REG [...] - PT Result: Comments: See Note; NOTES: [facility] [address] [place] [address]. [address] [place] [address] Fax REHABILITATION SERVICES INITIAL EVALUATION MR#: [id number] Acct: [id number] Name: SUSANNE TORRES Rep #: [id number] : 1950 67 From: Martín Arteaga DPT [...] Response: No effect Lumbar Standing: Right Side [place] - Symptoms During Testing: No e ffect Lumbar Standing: Right Side [place] - Symptoms After Testing: No effect Lumbar Standing: Left Side [place] - Mechanical Response: No effect Lumbar Standing: Left Side [place] - Symptoms During Testing: No effect Lumbar Standing: Left Side [place] - Symptoms After Testing: No effect - [...] to be FAXED BACK to us at [phone] for Medicare purposes. Please let me know if there are questions or concerns regarding this plan of care. Physician Signature: Date: <Electronically signed by Martín Arteaga DPT> 09/18/17 1910 CC: Rylee Bales DO CLS Signed For Medicare only, by signing this I certify the plan of care. Physicians Signature Date 16-Aug-2017 Hand Min 3 Views Result: Comments: See Note; NOTES: [facility] Imaging Services [address] [place] [address] Hand Min 3 Views MR#: [id number] Acct: [id number] Name: SUSANNE TORRES Rep #: [id number] : 1950 F 67 From: Bayron Payan MD PCP: Rylee Bales DO Status: REG CLI Study: Hand Min 3 Views Date of Exam: 08/16/17 Exam# [id number] Ordering Dr: Rylee Bales DO STUDY: X-RA [...] Bayron Payan MD at 13:43 EST Tel [phone], Service support , CC: Rylee Bales DO Commercial Helicopter Pilot: Signed 25-Jul-2017 SCREENING MAMM (CAD), BILAT Result: Comments: See Note; NOTES: [facility] Imaging Services [address] [place] [address] SCREENING MAMM (CAD), BILAT MR#: [id number] Acct: [id number] Name: SUSANNE TORRES Rep #: [id number] : 1950 F 67 From: Bayron Payan MD PCP: Rylee Bales DO Status: [facility] Study: SCREENING MAMM (CAD), BILAT Date of Exam: 07/25/17 Exam# [id number] Ordering Dr: Sherrell Bales DO MAMMOGRAPHY - [...] delay biopsy of a clinically suspicious abnormality. [id number] Electronically Signed: Bayron Payan MD at 14:18 EST Tel [phone], Service support , CC: Rylee Bales DO Commercial Helicopter Pilot: Signed 03-Jul-2017 Urgent Care Visit Report Result: Comments: See Note; NOTES: [facility] [address] [place] [address] OFFICE VISIT Date of Service: 07/03/17 MR#: [id number] Acct: [id number] Name: SUSANNE TORRES Rep #: [id number] : 1950 Provider: Matt FLORES Age/Sex: 67/F Location[place] [facility] Status: Signed Intake Vital Signs07/03/17 Height 5 ft 2.5 in Intake Visit Reasons: Urinary tract infection Is patient in pain?: No Allergies Sulfa (Sulfonamide Antibiotics) Allergy (Verified 12/13/17 14:54) Rash Medications Bupropion HCl [Bupropion Xl] [...] (Cipro) administer within 120 minutes prior to iejt642 mg PO BID 7 days ical incision Additional Comments UA dip = mod blood, mo d leukocytes. Cipro as prescribed today (per pt preference). Appropriate hygiene reinforced. Follow-up with PCP or city letter carrier 2-3 days should symptoms not improved, sooner should symptoms worsen or an y other concerns develop. Patient states acknowledging understanding of the above. Coding Level of Care Code Off vis,new,level 3 Diagnoses Urinary tract infection N39.0 07/03/17 1524 <Elect ronically signed by Matt FLORES> Date Matt Melo Signature: Date (if applicable) CC: 03-Jul-2017 Acute Abdomen Inc Chest Result: Comments: See Note; NOTES: [facility] Imaging Services [address] [place] [address] Acute Abdomen Inc Chest MR#: [id number] Acct: [id number] Name: SUSANNE TORRES Rep #: [id number] : 1950 F 67 From: Ross Javier DO PCP: Rylee Bales DO Status: REG CLI Study: Acute Abdomen Inc Chest Date of Exam: 07/03/17 Exam# [id number] Ordering Dr: Rylee Bales DO STUD Y: [...] Ross Javier DO at 11:58 EST Tel [phone], Serv ice support , CC: Rylee Bales DO Commercial Helicopter Pilot: Signed 02-Jul-2017 Abd Inc Decub and/or Erect Result: Comments: See Note; NOTES: [facility] Imaging Services [address] [place] [address] Abd Inc Decub and/or Erect MR#: [id number] Acct: [id number] Name: SUSANNE TORRES Rep #: [id number] : 1950 F 67 From: Ross Javier DO PCP: Rylee Bales DO Status: REG CLI Study: Abd Inc Decub and/or Erect Date of Exam: 07/02/17 Exam# [id number] Ordering Dr: Rylee Bales DO STUDY: X-RAY - ABDOMEN/PELVIS REASON FOR EXAM: Female, 67 years old. Chronic abdominal pain. Severe constipation. TECHNIQUE: AP supine and upright views of the abdomen and pelvis. COMPARISON: Octob er 2014. FINDINGS: Normal visualized lung bases. [...] Ross Javier DO at 11:35 EST Tel [phone], Service support , Fax CC: Rylee Bales DO Commercial Helicopter Pilot: Signed 03-Jan-2017 Thyroid Result: Comments: See Note; NOTES: [facility] Imaging Services [address] [place] [address] Verdana 4d Thyroid MR#: [id number] Acct: [id number] Name: SUSANNE TORRES Rep #: [id number] : 1950 F 66 From: Roselia Huerta MD PCP: Rylee Bales DO Status: REG CLI Study: Thyroid Date of Exam: 01/03/17 Exam# [id number] Ordering Dr: Rylee Bales DO STUDY: THYROID [...] Service support , CC: Rylee Bales DO Commercial Helicopter Pilot: Signed 15-Aug-2016 Venous Duplex Lower Extremity Result: Comments: See Note; NOTES: [facility] Cardiovascular Services [address] [place] [address] Venous Duplex US, Unilateral 08/15/16 1054 MR#: [id number] Acct: [id number] Name: SUSANNE COLMENARES Rep #: [id number] : 1950 66 From: Bradford Crowe MD [...] Dictated: 08/15/16 1054 Date Transcribed: 08/15/16 1228 Commercial Helicopter Pilot: Signed 24-Jul-2016 SCREENING MAMM (CAD), BILAT Result: Comments: See Note; NOTES: [facility] Imaging Services [address] [place] [address] Verdana 4d SCREENING MAMM (CAD), BILAT MR#: [id number] Acct: [id number] Name: MARYANA TORRES Rep #: [id number] : 1950 F 66 From: Ross Javier DO PCP: Rylee Bales DO Status: REG CLI Study: SCREENING MAMM (CAD), BILAT Date of Exam: 07/24/16 Exam# [id number] Ordering Dr: Rylee Bales DO MAMMOGRAPHY - [...] delay biopsy of a clinically suspicious abnormality. [id number] Electronically Signed: Ross Javier DO at 16:06 EST Tel [phone], Service support [phone], CC: Rylee Bales DO Commercial Helicopter Pilot: Signed 17-Jul-2016 DXA BONE DENS W/VERT FX ASMT Result: Comments: See Note; NOTES: [facility] Imaging Services [address] [place] [address] Verdana 4d DXA BONE DENS W/VERT FX ASMT MR#: [id number] Acct: [id number] Name: Vincent TORRES Rep #: [id number] : 1950 F 66 From: Bayron Payan MD PCP: Rylee Bales DO Status: REG CLI Study: DXA BONE DENS W/VERT FX ASMT Date of Exam: 07/17/16 Exam# [id number] Ordering Dr : Rylee Bales DO STUDY: [...] Bayron Payan MD at 14:09 EST Tel [phone], Service support [phone], CC: Rylee Bales DO Commercial Helicopter Pilot: Signed 01-Mar-2016 ELECTROCARDIOGRAM, COMPLETE (ECG) (41525) Comments: sinus beverly no acute chg Result: [MEASUREMENTS ANALYSIS] Date of Test: 03/01/2016 13:45:12; Heart Rate: 59; HI Interval: 154; QRS: 92; QT Interval: 426; Corrected QT Interval (QTc): 425; P Wave [place]: 33; QRS Wave [place]: 33; T Wave [place]: 90; Blood Pressure: 120/78 [ECG DIAGNOSTIC STATEMENTS] Date of Test: 03/01/2016 13:45:12; Summary: Sinus Bradycardia - Nonspecific T-abnormality. ABNORMAL 01-Nov-2015 Lumbar Spine 2 or 3 Views Result: Comments: See Note; NOTES: [facility] Imaging Services [address] [place] [address] Verda 4d Lumbar Spine 2 or 3 Views MR#: [id number] Acct: [id number] Name: SUSANNE COLMENARES Rep #: [id number] : 1950 F 65 From: Bayron Payan MD PCP: Manda Higginbotham MD Status: REG CLI Study: Lumbar Spine 2 or 3 Views Date of Exam: 11/01/15 Exam# [id number] [facility] Dr: Ryan Ortiz MD STUDY: X-RAY - [...] Bayron Payan MD at 10:21 EDT Tel [phone], Service support [phone], RAD/Lumbar Spine 2 or 3 Views IMPRESSION: Degenerative changes of the spine, as detai led above. Electronically Signed: Bayron Payan MD at 10:21 EDT Tel [phone], Service support [phone], CC: Ryan Ortiz MD; Manda Higginbotham MD Commercial Helicopter Pilot: Signed 13-Oct-2015 Spine Cervical (Routine) Result: Comments: See Note; NOTES: [facility] Imaging Services [address] [place] [address] 4d Spine Cervical (Routine) MR#: [id number] Acct: [id number] Name: SUSANNE KATE Rep #: [id number] : 1950 F 65 From: Tavo Perez MD PCP: Manda Higginbotham MD Status: REG CLI Study: Spine Cervical (Routine) Date of Exam: 10/13/15 Exam# [id number] Ordering Dr: Ryan Ortiz MD STUDY: MRI [...] at 19:04 EDT Tel , Service support [phone], CC: Ryan Ortiz MD; Manad Higginbotham MD Commercial Helicopter Pilot: Signed 19-Jul-2015 Bilat Scrn Digital AND CAD Result: Comments: See Note; NOTES: [facility] Imaging Services [address] [place] [address] Verdana 4d Bilat Scrn Digital AND CAD MR#: [id number] Acct: [id number] Name: SUSANNE TORRES Rep #: [id number] : 1950 F 65 From: Hector Oliveira MD PCP: Manda Higginbotham MD Status: REG CLI Study: Bilat Scrn Digital AND CAD Date of Exam: 07/19/15 Exam# [id number] Ordering Dr: Manda Higginbotham MD MAMMOGRAPHY - [...] delay biopsy of a clinically suspicious abnormality. [id number] Electronically Signed: Luis Eduardo Oliveira MD at 15:55 EST Te l , Service support [phone], CC: Manda Higginbotham MD Commercial Helicopter Pilot: Signed 12-Jul-2015 PT D/C of Non Returning Pt. Result: Comments: See Note; NOTES: [facility] [place] [address] Fax REHABILITATION SE RVICES DISCHARGE SUMMARY MR#: [id number] Acct: [id number] Name: SUSANNE TORRES Rep #: [id number] : 1950 65 From: Tatiana Wagner Referring [...] and Lateral Result: Comments: See Note; NOTES: [facility] Imaging Services [address] [place] [address] Verdana 4d Chest PA and Lateral MR#: [id number] Acct: [id number] Name: SUSANNE PADILLA Rep #: [id number] : 1950 F 65 From: Bayron Payan MD PCP: Manda Higginbotham MD Status: REG CLI Study: Chest PA and Lateral Date of Exam: 06/13/15 Exam# [id number] Ordering Dr: Marlen Rosenbaum STUDY: X-RAY CHEST [...] Bayron Payan MD at 14:40 EST Tel [phone], Service support [phone], 0079 RAD/Chest PA and Lateral IMPRESSION: No acute abnormality is seen. Electronically Signed: Bayron Payan MD at 14:40 EST Tel [phone], Service support [phone], CC: Marlen Rosenbaum; Manda Higginbotham MD Commercial Helicopter Pilot: Signed 14-May-2015 Operative Report Result: Comments: See Note; NOTES: [facility] Medical Records Department [facility] [place] [address] Operative Report MR#: [id number] Acct: [id number] Name: MARYANA TORRES Rep #: [id number] : 1950 65 From: Deion Gomez MD PCP: Manda Higginbotham MD Status: [facility] DATE OF SERVICE: 05/13/2015 DATE OF SERVICE: [...] condition. Deion Gomez MD T: NTS JOB: [id number] 05/14/15 1121 <Electronically si gned by Deion Gomez MD> Date Deion Gomez MD Cosigner Signature (If Indicated): Date CC: Manda Higginbotham MD; Deion Gomez MD Date Dictated: 05/13/151357 Date Transcribed: 05/13/151357 Commercial Helicopter Pilot: Signed 13-May-2015 Discharge Instruction Result: Comments: See Note; NOTES: [facility] Medical Records Department [address] [place] [address] Instructions for Home/Discharge Instructions 05/13/15 1400 MR#: [id number] Acct: [id number] Name: SUSANNE TORRES Rep #: [id number] : 1950 65 From: Deion Gomez MD PCP: Manda Higginbotham MD Status: REG [facility] Discharge Diet: No Restrictions Discharge Activ ity: [...] APPT IN FEW WKS, TO PAGE 05/13/15 6868 <Electronically signed by Deion Gomez MD> Date Deion Gomez MD CC: Manda Higginbotham MD 12-May-2015 Abdomen Single View Result: Comments: See Note; NOTES: [facility] Imaging Services [address] [place] [address] Verdana 4d Abdomen Single View MR#: [id number] Acct: [id number] Name: SUSANNE RAMIREZ Rep #: [id number] : 1950 F 65 From: Jack Calderon MD PCP: Manda Higginbotham MD Status: REG CLI Study: Abdomen Single View Date of Exam: 05/12/15 Exam# [id number] Ordering Dr: Deion Hernandez MD STUDY: X-RAY [...] Jack Calderon MD at 23:58 EDT Tel [phone], Service support [phone], RAD/Abdomen Single View IM PRESSION: 5 mm left renal stone. Electronically Signed: Jack Calderon MD at 23:58 EDT Tel [phone], Service support [phone], CC: Manda Higginbotham MD; Deion Gomez MD Commercial Helicopter Pilot: Signed 02-May-2015 Abdomen Single View Result: Comments: See Note; NOTES: [facility] Imaging Services [address] [place] [address] Radiology Report MR#: [id number] Acct: [id number] Name: SUSANNE TORRES Re p #: [id number] : 1950 F 65 From: Hector Cervantes MD PCP: Manda Higginbotham MD Status: REG CLI Study: Abdomen Single View Date of Exam: 05/02/15 Exam# [id number] Ordering Dr: Deion Gomez MD STUDY: X-RAY [...] MD at 16:59 EDT , Service support [phone], RAD/Abdomen Sing le View IMPRESSION: 1. 5 [...] MD at 16:59 EDT , Service support [phone], CC: Manda Higginbotham MD; Deion Gomez MD Commercial Helicopter Pilot: Signed 29-Mar-2015 Extremity Lower without Contra Result: Comments: See Note; NOTES: [facility] Imaging Services [address] [place] [address] CAT Scan Report MR#: [id number] Acct: [id number] Name: SUSANNE TORRES Rep #: [id number] : 1950 F 65 From: Roselia Huerta MD PCP: Manda Higginbotham MD Status: REG CLI Study: Extremity Lower without Contra Date of Exam: 03/29/15 Exam# [id number] Ordering Dr: Chirag Lee DPM STUDY: CT [...] at 13:47 EDT Tel , Service support [phone], CC: Manda guevara MD; Chirag Lee DPM Commercial Helicopter Pilot: Signed 22-Mar-2015 Inital Evaluation - PT Result: Comments: See Note; NOTES: [facility] Physical Therapy [facility] [address] [place], [place] [address] Fax REHABILITATION SERVICES INITIAL EVALUATION MR#: [id number] Acct: [id number] Name: SUSANNE TORRES Rep #: [id number] : 1950 65 From: Tatiana Wagner Referring Dr.: Chirag Lee DPMelissa Status: DIS RCR Insura nce: [employer] MEDICARE [...] to be FAXED BACK to us at [phone] for Medicare purposes. Please let me know if there are questions or concerns regarding this plan of care. Physician Signature: Date: <Electronically signed by Tatiana Wagner > 03/22/15 1556 CC: Manda Higginbotham MD; Chirag Lee DPM Signed For Medicare only, by signing this I certify the plan of care. Physicians Signature Date 31-Dec-2014 Operative Report Result: Comments: See Note; NOTES: [facility] Medical Records Department [address] [place] [address] Operative Report MR#: [id number] Acct: [id number] Name: SUSANNE TORRES Rep #: [id number] : 1950 64 From: Chirag Lee DPM PCP: Manda Higginbotham MD Status: [facility] DATE OF SERVICE: 12/31/2014 DATE OF SERVICE: [...] LOSS: Less than 1 mL. MATERIALS: One [employer] 5.5 mm partially threaded screw with 1 [...] mm screw was placed across the f [facility] metatarsal fracture site intramedullary. Of [...] needed. Chirag Lee DPM T: TITI JOB: [id number] 12/31/14 5813 &# 60;Electronically signed by Chirag Lee DPM> Date Chirag Lee DPM CC: Manda Higginbotham MD; Sunday Lee MD Date Dictated: 12/31/14914 Date Transcribed: 12/31/14914 Commercial Helicopter Pilot: Signed 31-Dec-2014 Foot 2 Views Result: Comments: See Note; NOTES: [facility] Imaging Services [address] [place] [address] Radiology Report MR#: [id number] Acct: [id number] Name: SUSANNE TORRES Rep #: [id number] : 1950 F 64 From: Bayron Payan MD PCP: Manda Higginbotham MD Status: [facility] Study: Foot 2 Views Date of Exam: 12/31/14 Exam# [id number] Ordering Dr: Chirag Lee DPM STUD Y: [...] Bayron Payan MD at 13:09 EDT Tel [phone], Service support , RAD/Foot 2 Views IMPRESSION: Satisfactory ORIF of the transverse fracture of the base of the fifth metatarsal. Electronically Signed: Bayron sosa MD at 13:09 EDT Tel [phone], Service support [phone], CC: Manda Higginbotham MD; Sunday Lee MD Commercial Helicopter Pilot: Signed 31-Dec-2014 Discharge Instruction Result: Comments: See Note; NOTES: [facility] Medical Records Department [address] [place] [address] Instructions for Home/Discharge Instructions 12/31/14 0832 MR#: [id number] ct: [id number] Name: SUSANNE TORRES Rep #: [id number] : 1950 64 From: Chirag Lee DPM PCP: Manda Higginbotham MD Status: REG SDC Discharge Diet: Light diet - advance as [...] 2 Views Result: Comments: See Note; NOTES: [facility] Imaging Services [address] [place] [address] Radiology Report MR#: [id number] Acct: [id number] Name: SUSANNE TORRES Rep #: [id number] : 1950 F 64 From: Bayron Payan MD PCP: Manda Higginbotham MD Status: [facility] Study: Foot 2 Views Date of Exam: 12/31/14 Exam# [id number] Ordering Dr: Chirag Lee DPM STUD Y: [...] Morgan Payan MD at 13:02 EDT Tel [phone], Service support [phone], RAD/Foot 2 Views IMPRESSION: Satisfactory reduction of the transvers e fracture at the base of the fifth metatarsal with screw fixation. Electronically Signed: Bayron Payan MD at 13:02 EDT Tel [phone], Service support [phone], Fax CC: Manda Higginbotham MD; Sunday Lee MD Commercial Helicopter Pilot: Signed 24-Sep-2014 Abdomen Single View Result: Comments: See Note; NOTES: [facility] Imaging Services [address] [place] [address] Radiology Report MR#: [id number] Acct: [id number] Name: SUSANNE TORRES Rep #: [id number] : 1950 F 64 From: Agustin Washington MD PCP: Manda Higginbotham MD Status: REG CLI Study: Abdomen Single View Date of Exam: 09/24/14 Exam# [id number] Ordering Dr: Deion Gomez [facility] - ABDOMEN/PELVIS REASON FOR EXAM: Female, [...] at 17:02 EST Tel , Service support [phone], Fax RAD/Abdomen Single View IMPRESSION: 5 mm left upper pole stone. Other renal stones are not seen but not excluded. Electronically Signed: Agustin Washington MD at 17:02 EST Tel , Service support [phone], CC: Manda Higginbotham MD; Deion Gomez MD Commercial Helicopter Pilot: Signed 04-Aug-2014 Abdomen/Pelvis without Cont Result: Comments: See Note; NOTES: [facility] Imaging Services [address] [place] [address] CAT Scan Report MR#: [id number] Acct: [id number] Name: SUSANNE TORRES Rep #: [id number] : 1950 F 64 From: Bayron Payan MD PCP: Manda Higginbotham MD Status: REG CLI Study: Abdomen/Pelvis without Cont Date of Exam: 08/04/14 Exam# [id number] Ordering Dr: Deion Gomez MD STUDY: CT [...] Bayron Payan MD at 11:33 EST Tel [phone], Service support [phone], CC: Manda Higginbotham MD; Deion Gomez MD Commercial Helicopter Pilot: Signed 13-Jul-2014 Vert Fx Asess/Lat Bone Den(H) Result: Comments: See Note; NOTES: [facility] Imaging Services [address] [place] [address] Bone Density Report MR#: [id number] Acct: [id number] Name: SUSANNE TORRES Rep # : [id number] : 1950 F 64 From: Bayron Payan MD PCP: Manda Higginbotham MD Status: REG CLI Study: Vert Fx Asess/Lat Bone Den(H) Date of Exam: 07/13/14 Exam# [id number] Ordering Dr: Iona Higginbotham MD STUDY: DUAL [...] Bayron Payan MD at 13:17 EST Tel [phone], Service support [phone], CC: Manda Higginbotham MD Commercial Helicopter Pilot: Signed 13-Jul-2014 Vert Fx Asess/Lat Bone Den(H) Result: Comments: See Note; NOTES: [facility] Imaging Services [address] [place] [address] Bone Density Report MR#: [id number] Acct: [id number] Name: SUSANNE TORRES Rep # : [id number] : 1950 F 64 From: Bayron Payan MD PCP: Manda Higginbotham MD Status: REG CLI Study: Vert Fx Asess/Lat Bone Den(H) Date of Exam: 07/13/14 Exam# [id number] Ordering Dr: Iona Higginbotham MD ADDENDUM by Bayron Payan MD on 08/03/14 at 0947 ADDENDUM This is an addendum r eport. A vertebral assessment study was obtained as well. There is moderate degree of loss of height of the T7 vertebrae. Minimal loss of white of the superior plate of the T11 vertebrae. Electron ically Signed: Bayron Payan MD at 9:47 EST Tel [phone], Service support [phone], 08/03/14 09 Date cc: Manda Higginbotham MD [...] Michael Payan MD at 13:17 EST Tel [phone], Service support [phone], CC: Manda Higginbotham MD Commercial Helicopter Pilot: Signed 13-Jul-2014 Bilat Scrn Digital AND CAD Result: Comments: See Note; NOTES: [facility] Imaging Services [address] [place] [address] Breast Imaging Report MR#: [id number] Acct: [id number] Name: SUSANNE TORRES Rep #: [id number] : 1950 F 64 From: Hector Oliveira MD PCP: Manda Higginbotham MD Status: REG CLI Study: Bilat Scrn Digital AND CAD Date of Exam: 07/13/14 Exam# [id number] Ordering Dr: Manda Higginbotham MD MAMMOGRAPHY - [...] Eduardo Oliveira MD at 15:14 EST Tel [phone], Service support [phone], CC: Manda Higginbotham MD Commercial Helicopter Pilot: Signed 13-Jul-2014 Dexa Bone Density Study (HP) Result: Comments: See Note; NOTES: [facility] Imaging Services [address] [place] [address] Bone Density Report MR#: [id number] Acct: [id number] Name: SUSANNE TORRES Rep # : [id number] : 1950 F 64 From: Bayron Payan MD PCP: Manda Higginbotham MD Status: REG CLI Study: Dexa Bone Density Study (HP) Date of Exam: 07/13/14 Exam# [id number] Ordering Dr: Ap Higginbotham MD STUDY: DUAL [...] Bayron Payan MD at 13:24 EST Tel [phone], Service support [phone], CC: Manda Higginbotham MD Commercial Helicopter Pilot: Signed 02-Apr-2014 Pelvis 1 or 2 Views Result: Comments: See Note; NOTES: [facility] Imaging Services [address] [place] [address] Radiology Report MR#: [id number] Acct: [id number] Name: SUSANNE TORRES Rep #: [id number] : 1950 F 64 From: Ross Javier DO PCP: Manda Higginbotham MD Status: REG CLI Study: Pelvis 1 or 2 Views Date of Exam: 04/02/14 Exam# [id number] Ordering Dr: Peri Deutsch MD STUDY: X-RAY [...] Ross Javier DO at 20:24 EDT Tel [phone], Service support [phone], Fax CC: Manda Higginbotham MD; Peri Deutsch MD Commercial Helicopter Pilot: Signed 09-Jul-2013 Bilat Scrn Digital & CAD Result: Comments: See Note; NOTES: [facility] Imaging Services [address] [place] [address] Breast Imaging Report MR#: [id number] Acct: [id number] Name: SUSANNE TORRES Rep #: [id number] : 1950 F 63 From: Bayron Payan MD PCP: Status: REG CLI Exam# [id number] Ordering Dr: Manda Higginbotham MD MAMMOGRAPHY - [...] Bayron Payan M.D. at 10:52 EST T [phone], Service support [phone], CC: Manda Higginbotham MD Commercial Helicopter Pilot: Signed Immunization Name Dates Details Influenza (3 years and up) on: 23-May-2007 Comments: given 0.5cc im in left deltoid lot#[id number] exp.11/27-WF Influenza (3 years and up) on: 11-Jun-2008 Comments: inj given left deltoid no complicationslot:hvqws763isjkk:12/28 Influenza (3 years and up) on: 22-Apr-2009 Comments: Lot #: [id number] date: 5/10Amount given: 0.5 mlRoute: IMSite given: left deltoidGiven [...] smoker Vital Signs Date Test Result Details 59-Wdu-996099:18 Temperature 97 f Comments: Method: Temporal Pulse 86 /min Comments: Pattern: Regular Respiration Rate 18 /min Comments: Pattern: Unlabored O2 SAT 97 % Comments: Room air BP Systolic 118 mm[Hg] Comments: Patient Position: Sitting; Cuff Location: Left Arm; Cuff Size: Large BP Diastolic 80 mm[Hg] Comments: Patient Position: Sitting; Cuff Location: Left Arm; Cuff Size: Large Weight 163.5 lb Height 61 in Body Mass Index Calculated 30.89 kg/m2 Body Surface Area Calculated 1.73 m2 09-Akn-031592:36 Temperature 98.4 f Comments: Method: Temporal Pulse [...] kg/m2 Body Surface Area Calculated 1.73 m2 98-Hxi-456422:03 Pulse 81 /min Comments: Pattern: Regular Respiration [...] kg/m2 Body Surface Area Calculated 1.73 m2 :49 Temperature 97.2 f Comments: Method: Temporal Pulse [...] kg/m2 Body Surface Area Calculated 1.74 m2 :07 Pulse 68 /min Comments: Pattern: Regular Respiration [...] Area Calculated 1.74 m2 :25 Comments: hearing wnlDr. Jacques and had a glaucoma test done [...] kg/m2 Body Surface Area Calculated 1.74 m2 11-Uhz-396167:05 Temperature 96.8 f Comments: Method: Oral Pulse [...] 0.00 cm Results Date Description Value Details 40-Jxc-033833:12 CALCIFIDIOL (50892) VIT D 25 Comments: PATIENT NOT FASTINGPERFORMED BY: J[facility] Yrodud2499 [facility] [id number] Vitamin D, 25-Hydroxy 41.7 ng/mL (Normal) Range: 30.0-100.0 Comments: Vitamin D deficiency has been defined by the [place] of[employer] and an Endocrine Society practice guideline as alevel of serum 25-OH vitamin D less than 20 ng/mL (1,2).The Endocrine Society went on to further define vitamin Dinsufficiency as a level between 21 and 29 ng/mL (2).1. IOM ([place] of [employer]). 2010. Dietary reference intakes for calcium and D. [place]: The National Academies Press.2. Micky MF, Jessenia NC, Katrin CAMARGO, et al. Evaluation, treatment, and prevention of vitamin D deficiency: an Endocrine Society clinical practice guideline. JCEM. 2010; 96(7):1911-30. 65-Euq-572090:12 VITAMIN B-12 (CYANOCOBALAMIN) Comments: PATIENT NOT FASTINGPERFORMED BY: [facility] Frdnyf1403 [facility] [id number] ([id number]) Vitamin B12 459 pg/mL (Normal) Range: 232-1245 50-Prs-525377:12 TSH (51281) Comments: PATIENT NOT FASTINGPERFORMED BY: [facility] Rwppdh8301 [facility] [id number] TSH 2.120 {uIU/mL} (Normal) Range: 0.450-4.500 24-Udd-104689:12 SED RATE ERYTHROCYTE (83207) Comments: PATIENT NOT FASTINGPERFORMED BY: [facility] Bnmmwl0418 [facility] [id number] Sedimentation Rate-Westergren 2 mm/h (Normal) Range: 0-40 40-Owz-539704:12 RHEUMATOID FACTOR-QUANT (55007) Comments: PATIENT NOT FASTINGPERFORMED BY: [facility]6370 [facility] [id number] RA Latex Turbid. <10.0 {IU/mL} (Normal) Range: 0.0-13.9 01-Vng-592380:12 METABOLIC PANEL, COMPREHENSIVE Comments: PATIENT NOT FASTINGPERFORMED BY: [facility]6370 [facility] [id number] (42264) ALT (SGPT) 19 [iU]/L (Normal) Range: 0-32 [...] 8-27 Glucose 92 mg/dL (Normal) Range: 65-99 04-Vlq-017742:12 C-REACTIVE PROTEIN (56779) Comments: PATIENT NOT FASTINGPERFORMED BY: [facility]6370 [facility] [id number] C-Reactive Protein, Quant 1.2 mg/L (Normal) Range: 0.0-4.9 87-Dtv-665090:12 CBC (AUTO) (50132) Comments: PATIENT NOT FASTINGPERFORMED BY: [facility]6370 [facility] [id number] Platelets 212 {x10E3/uL} (Normal) Range: 150-379 RDW 13.9 % (Normal) Range: 12.3-15.4 MCHC 33.7 g/dL (Normal) Range: 31.5-35.7 MCH 30.8 pg (Normal) Range: 26.6-33.0 MCV 91 fL (Normal) Range: 79-97 Hematocrit 40.3 % (Normal) Range: 34.0-46.6 Hemoglobin 13.6 g/dL (Normal) Range: 11.1-15.9 RBC 4.42 {x10E6/uL} (Normal) Range: 3.77-5.28 WBC 4.8 {x10E3/uL} (Normal) Range: 3.4-10.8 87-Bab-076215:12 BIBIANA (ANTINUCLEAR ANTIBODY) Comments: PATIENT NOT FASTINGPERFORMED BY: [facility]3]Hpvhqj8950 [facility] [id number] (70977) BIBIANA Direct Negative (Normal) 80-Aaz-078417:08 Miscellaneous Lab Procedure Comments: Comments: [id number] TRANGLUTAMINASE SER FZTest(s) Ordered: [id number] [facility]GLUTAMINASE SER [facility] [address] [place], [address] [facility] Comments: TEST RESULT LIMITSTransglutaminase Ab IgG/M/ATragl IgG <1.2 U/mL 0.0 - 6.0 Reference Range Negative < 6.0 U/mL Weak Positive LAB (Normal) 6.0 - 9.0 U/mL Positive > 9.0 U/mLTragl IgM 2.0 U/mL 0.0 - 12.4 Reference Range Negative < 9.6 U/mL Equivocal 9.6 - 12.4 TEST U/mL Positive > 12.4 U/mLThe performance characteristics of the TransglutaminaseIgM assay was validated by [employer]. [place] FDA has not approved or cleared this test. Th e resultsof this assay can be used for clinical diagnosis withoutFDA approval. [employer]. is a CLIAcertified, CAP accredited laboratory for performing highcomplexity assays such as this o ne.Tragl IgA < 1.2 U/mL 0.0 - 4.0 Reference Range Negative < 4.0 U/mL Weak Positive 4.0 - 10.0 U/mL Positive > 10.0 U/mLComment_ TESTING PERFORMED AT [facility]. ORIGINAL REPORT ON FILE IN LAB CONTAINS ADDITIONAL TEST SITE INFORMATION. 92-Sbp-750892:30 CBC-Complete Blood Cnt No Diff Comments: [facility] [address] [place], [address] MPV 9.8 fL (Normal) Range: 6.2-12.0 PLT [...] 4.2-5.4 WBC 6.0 K/mm3 (Normal) Range: 4.4-11.0 96-Qok-238706:30 Endomysial Antibody IgA Comments: [facility] (refer to report for specific site)refer to report for address and phone number ENDOMYSIAL IGA Negative (Normal) 61-Hio-279425:30 Thyroglobulin Antibody Comments: [facility] (refer to report for specific site)refer to report for address and phone number TG AB 1.1 {IU/mL} (Abnormal) Range: 0.0-0.9 Comments: Thyroglobulin Antibody measured by [employer] AnalyticsMethodologyPerformed at: CB - [facility] [address] [id number] Director: Joaquim Barrett PhD, Phone: [phone] 28-Mqe-56308:23 CBC-Complete Blood Cnt No Diff Comments: [facility] [address] [place], [address] MPV 9.5 fL (Normal) Range: [...] K/mm3 (Abnormal) Range: 4.4-11.0 :23 Magnesium Comments: [facility] [address] [place], [address] MG 2.3 mg/dL (Normal) Range: 1.6-2.6 :23 Microalb:Creat Ratio,Random UR Comments: [facility] [address] [place], [address] MALB:CREAT 5.6 {mg/g_CRE} (Normal) MICROALBUMIN,UR 5.3 mg/L (Normal) UR CREAT 95.70 mg/dL (Normal) :23 PTHIN 78.4 pg/mL (Normal) Comments: [facility] [address] [place], [place], [address] Range: 18.4-80.1 14-Vxb-67242:23 Renal Profile Comments: [facility] [address] [place], [address] CO2 28.0 mmol/L (Normal) Range: 21.0-32.0 CL [...] Comments: Please note revised GLUCOSE reference range enttjlyns28/02/2018. 77-Jps-47604:23 Vitamin D,25 Hydroxy Comments: [facility] [address] [place], [address] Vitamin D 25-OH 34.7 ng/mL (Normal) Range: 29.95-100.01 Comments: Vitamin D 25(OH) Status Range Deficiency <20 ng/mL (50nmol/L) Insuffciency 20 - 30 ng/mL (50 - 75 nmol/L) Sufficiency 30 - 100 ng/mL (75 - 250 nmol/L) Toxicity >100 ng/mL (>250 nmol/L) 16-Rcr-954226:19 CBC W/Diff, Automated Comments: [facility] [address] [place], [address] Absolute Lymph 1.25 {X10_3/ul} (Normal) Range: 0.83-4.51 [...] 4.2-5.4 WBC 3.9 K/mm3 (Abnormal) Range: 4.4-11.0 83-Nfb-652398:19 Endomysial Antibody IgA Comments: [facility] (refer to report for specific site)refer to report for address and phone number ENDOMYSIAL IGA Negative (Normal) Comments: Performed at: [facility] [address] [id number] Director: Joaquim Barrett PhD, Phone: [phone] 19-Udn-813826:19 t-Transglutaminase IgA Comments: [facility] (refer to report for specific site)refer to report for address and phone number tTG IGA <2 U/mL (Normal) Range: 0-3 Comments: Negative 0 - 3 Weak Positive 4 - 10 Positive >10 Tissue Transglutaminase (tTG) has been identified as the endomysial anti gen. Studies have demonstr- ated that endomysial IgA antibodies have over 99% specificity for gluten sensitive enteropathy. 26-Yyl-418730:00 Culture, Urine Comments: [facility] [address] [place], [place], [address] CUUR See Note (Normal) Comments: Urine CultureCulture exhibits no growth. :27 CBC-Complete Blood Cnt No Diff Comments: [facility] [address] [place], [place], [address] MPV 10.4 fL (Normal) Range: 6.2-12.0 PLT [...] K/mm3 (Abnormal) Range: 4.4-11.0 :27 Magnesium Comments: [facility] [address] [place], [place], [address] MG 2.1 mg/dL (Normal) Range: 1.8-2.4 :27 Microalb:Creat Ratio,Random UR Comments: [facility] [address] [place], [place], [address] MALB:CREAT 4.6 {mg/g_CRE} (Normal) MICROALBUMIN,UR 8.6 mg/L (Normal) UR CREAT 188.00 mg/dL (Normal) :27 Renal Profile Comments: [facility] [address] [place], [address] CO2 27.0 mmol/L (Normal) Range: 21.0-32.0 CL [...] 7-18 GLU 94 mg/dL (Normal) Range: 70-110 :27 Vitamin D,25 Hydroxy Comments: [facility] [address] [place], [address] Vitamin D 25-OH 57.5 ng/mL (Normal) Comments: Vitamin D 25(OH) Status Range Deficiency <20 ng/mL (50nmol/L) Insuffciency 20 - 30 ng/mL (50 - 75 nmol/L) Sufficiency 30 - 100 ng/mL (75 - 250 nmol/L) Toxicity >100 ng/mL (>250 nmol/L) 4-Qlx-377416:15 TSH (27888) Comments: PATIENT NOT FASTINGPERFORMED BY: [facility] [address]ra5[address] RoadDublin [place] [id number] TSH 2.900 {uIU/mL} (Normal) Range: 0.450-4.500 :15 SED RATE ERYTHROCYTE (00386) Comments: PATIENT NOT FASTINGPERFORMED BY: [facility]6370 [facility] [id number] Sedimentation Rate-Westergren 2 mm/h (Normal) Range: 0-40 :15 C-REACTIVE PROTEIN (24371) Comments: PATIENT NOT FASTINGPERFORMED BY: [facility]3]Erwafj6529 [facility] [id number] C-Reactive Protein, Quant 1.4 mg/L (Normal) Range: 0.0-4.9 :15 METABOLIC PANEL, COMPREHENSIVE Comments: PATIENT NOT FASTINGPERFORMED BY: [facility]6370 [facility] [id number] (35747) ALT (SGPT) 10 [iU]/L (Normal) Range: 0-32 [...] Glucose, Serum 106 mg/dL (Abnormal) Range: 65-99 1-Ptc-111439:15 CBC W/AUTO DIFF WBC (41345) Comments: PATIENT NOT FASTINGPERFORMED BY: [facility] Vuqftk9859 [facility] [id number] Immature Grans (Abs) 0.0 {x10E3/uL} (Normal) Range: [...] Range: 3.4-10.8 :23 CBC W/Diff, Automated Comments: [facility] [address] [place], [address] Absolute Lymph 1.81 {X10_3/ul} (Normal) Range: 0.83-4.51 [...] 4.2-5.4 WBC 4.8 K/mm3 (Normal) Range: 4.4-11.0 37-Kdv-13095:23 Comprehensive Metabolic Profil Comments: [facility] [address] [place], [address] GAP 5 (Normal) Range: 5-15 CO2 31.0 [...] 7-18 GLU 90 mg/dL (Normal) Range: 70-110 55-Djj-86809:23 CRP, High Sensitivity Cardiac Comments: [facility] [address] [place], [place], [id number] CRP HIGH SENS 2.99 mg/L (Normal) Comments: Low Relative Risk of CVD <1.0 mg/L Average Relative Risk of CVD 1.0 - 3.0 mg/L High Relative Risk of CVD >3.0 mg/L 49-Gys-07201:23 Erythrocyte Sed Rate Comments: [facility] [address] [place], [place], [address] SED RATE 2 mm/h (Normal) Range: 0-30 :55 ASPIRATION (SLIDES ONLY) See Note (Normal) Comments: [facility] [address] [place] [address], [id number] Comments: Patient: SUSANNE TORRES : 1950 (66/F) Acct Num: [id number] Phys: Trinh KRISHNAN,Keanu Unit Num: [id number] Loc: [facility] Specimen: [id number] Received: 01/23/17 - 1605 Spec Type: ASPIRATION TISSUES TISSUES: COMMENT Immediate cytologic evaluation to determine adequacy is not applicable. Correlation with clinical, radiologic findings and appropriate fol low up are necessary. CYTOLOGY GROSS Received are 12 smears labeled with the patient's name and designated per the requisition as left thyroid FNA. Submitted for staining. 01/24/17 TC:5 CPT: 54125 CYTOLOGY STUDY Slides are reviewed. The specimen [...] <signature on file> :39 T3, FREE (TRIDOTHYRONINE) (71296) Comments: PATIENT NOT FASTINGPERFORMED BY: [facility] Rdgciq[address] [facility] [id number] Triiodothyronine,Free,Serum 2.6 pg/mL (Normal) Range: 2.0-4.4 :39 T4, FREE (THYROXINE) (40472) Comments: PATIENT NOT FASTINGPERFORMED BY: [facility]apperPl[facility] CenterUnsozq4529 [facility] [id number] T4,Free(Direct) 1.49 ng/dL (Normal) Range: 0.82-1.77 86-Kvn-963964:39 TSH (63645) Comments: PATIENT NOT FASTINGPERFORMED BY: [facility]apperPl[facility] CenterCyddvt2992 [facility] [id number] TSH 1.970 {uIU/mL} (Normal) Range: 0.450-4.500 9-Qhk-338682:31 ANTINUCLEAR ANTIBODIES DIRECT Comments: [facility] (refer to report for specific site)refer to report for address and phone number BIBIANA-DIRECT Positive (Abnormal) Comments: Performed at: - [facility] [address] [address] [id number] Director: Joaquim Barrett PhD, Phone: [phone] 7-Ceu-329563:31 CBC W/Diff, Automated Comments: [facility] Phkbexuonm[address] [place], [address] Absolute Lymph 1.15 {X10_3/ul} (Normal) Range: 0.83-4.51 [...] 4.2-5.4 WBC 4.4 K/mm3 (Normal) Range: 4.4-11.0 6-Rvb-189713:31 Magnesium Comments: [facility] [address] [place], [address] MG 2.1 mg/dL (Normal) Range: 1.8-2.4 :31 Protein+Creatinine Ratio,Urine Comments: [facility] Tqfqubikzp59[address] [place] [place], [address] PROT:CRE RATIO 88 {mg/g_CRE} (Normal) Range: 0-200 PROTEIN,UR.RAN. 7.2 mg/dL (Normal) UR CREAT 81.80 mg/dL (Normal) 3-Jmo-833338:31 Renal Profile Comments: [facility] Cokskihwgl3[address] [place], [id number] CO2 25.0 mmol/L (Normal) Range: 21.0-32.0 CL [...] <126 mg/dLsuggests IMPAIRED HOMEOSTASIS per A.D.A. criteria. 1-Inl-531154:31 Vitamin D,25 Hydroxy Comments: [facility] Pudagsskie[address] [place] [place], [id number] Vitamin D 25-OH 48.2 ng/mL (Normal) Comments: Vitamin D 25(OH) Status Range Deficiency <20 ng/mL (50nmol/L) Insuffciency 20 - 30 ng/mL (50 - 75 nmol/L) Sufficiency 30 - 100 ng/mL (75 - 250 nmol/L) Toxicity >100 ng/mL (>250 nmol/L) :45 Culture, Urine Comments: [facility] Gbvosieslu1141 [place], [address] CUUR See Note (Normal) Comments: Urine CultureBelow infection level. ORGANISM 1: Mixed Gram Positive OrganismsColony Count <1000 99-Qmg-713936:03 CALCIFIDIOL (61863) VIT D 25 Comments: PATIENT NOT FASTINGPERFORMED BY: [facility] Fnibak[address]blks [place] [id number] Vitamin D, 25-Hydroxy 52.3 ng/mL (Normal) Range: 30.0-100.0 Comments: Vitamin D deficiency has been defined by the [place] ofMedicine and an Endocrine Society practice guideline as alevel of serum 25-OH vitamin D less than 20 ng/mL (1,2).The Endocrine Society went on to further define vitamin Dinsufficiency as a level between 21 and 29 ng/mL (2).1. IOM ([place] of Medicine). 2010. Dietary reference intakes for calcium and D. [place]: The National Academies Press.2. Micky MF, Jessenia [place], Katrin CAMARGO, et al. Evaluation, treatment, and prevention of vitamin D deficiency: an Endocrine Society clinical practice guideline. JCEM. 2010; 96(7):1911-30. 50-Uum-505027:03 Folate (47236) Comments: PATIENT NOT FASTINGPERFORMED BY: Memeo [facility] Jkakqf2958 [address] [facility] [place] [id number] Folate (Folic Acid), Serum >20.0 ng/mL (Normal) Comments: A serum folate concentration of less than 3.1 ng/mL isconsidered to represent clinical deficiency. 51-Zoz-090528:03 VITAMIN B-12 (CYANOCOBALAMIN) Comments: PATIENT NOT FASTINGPERFORMED BY: Memeo [facility] Gfvsci7370 Walton RoadDublin [place] [id number] ([address]) Vitamin B12 469 pg/mL (Normal) Range: 211-946 00-Fhy-511633:03 TSH (34691) Comments: PATIENT NOT FASTINGPERFORMED BY: CB [facility] Olhwre9192 [address] [facility] [place] [id number] TSH 2.240 {uIU/mL} (Normal) Range: 0.450-4.500 35-Mbh-183641:03 SED RATE ERYTHROCYTE (03647) Comments: PATIENT NOT FASTINGPERFORMED BY: CB [facility] Eqafou5199 [facility] [id number] Sedimentation Rate-Westergren 2 mm/h (Normal) Range: 0-40 09-Jrh-551984:03 RHEUMATOID FACTOR-QUANT (53309) Comments: PATIENT NOT FASTINGPERFORMED BY: CB [facility] Cdufwc2252 [facility] [id number] RA Latex Turbid. 12.1 {IU/mL} (Normal) Range: 0.0-13.9 20-Gfr-831420:03 METABOLIC PANEL, COMPREHENSIVE Comments: PATIENT NOT FASTINGPERFORMED BY: [facility] Axjvsb7371 [facility] [id number] (29152) ALT (SGPT) 15 [iU]/L (Normal) Range: 0-32 [...] Glucose, Serum 89 mg/dL (Normal) Range: 65-99 42-Ilc-187993:03 C-REACTIVE PROTEIN (41226) Comments: PATIENT NOT FASTINGPERFORMED BY: [facility]3]Cutotr8295 [facility] [id number] C-Reactive Protein, Quant 0.4 mg/L (Normal) Range: 0.0-4.9 :03 CBC (AUTO) (51561) Comments: PATIENT NOT FASTINGPERFORMED BY: [facility]3]Xvpagm1025 [facility] [id number] Platelets 220 {x10E3/uL} (Normal) Range: 150-379 RDW 13.1 % (Normal) Range: 12.3-15.4 MCHC 32.8 g/dL (Normal) Range: 31.5-35.7 MCH 30.1 pg (Normal) Range: 26.6-33.0 MCV 92 fL (Normal) Range: 79-97 Hematocrit 41.1 % (Normal) Range: 34.0-46.6 Hemoglobin 13.5 g/dL (Normal) Range: 11.1-15.9 RBC 4.49 {x10E6/uL} (Normal) Range: 3.77-5.28 WBC 4.7 {x10E3/uL} (Normal) Range: 3.4-10.8 43-Pit-885729:03 BIBIANA (ANTINUCLEAR ANTIBODY) Comments: PATIENT NOT FASTINGPERFORMED BY: [facility]6370 [facility] [id number] (67202) BIBIANA Direct Positive (Abnormal) :06 ANTINUCLEAR ANTIBODIES DIRECT Comments: CMP,CBCD FOR DR PHELPS,CBCD FOR DR Hannah (refer to report for specific site)refer to report for address and phone number BIBIANA-DIRECT Negative (Normal) Comments: Performed at: [facility] LabCo[address] [id number] Director: Joaquim Barrett PhD, Phone: [phone] :06 CBC W/Diff, Automated Comments: CMP,CBCD FOR DR PHELPS,CBCD FOR DR LOTTmesilla valley hospitalotoniel [facility] Aujvrtoppn58[address] Av[address]queline[address]amis[address], [place], [id number] Absolute Lymph 1.89 {X10_3/ul} (Normal) Range: 0.83-4.51 [...] mg/dL (Normal) Range: 82-167 Comments: Performed at: [address] [id number] Director: Joaquim Barrett PhD, Phone: [phone] :06 Complement C4 Comments: CMP,CBCD FOR DR PHELPS,CBCD FOR DR Hannah (refer to report for specific site)refer to report for address and phone number COMP C4 14 mg/dL (Normal) Range: 14-44 :06 Comprehensive Metabolic Profil Comments: CMP,CBCD FOR DR Angeles [facility] Mrkvawzptr8671 [address] Linda[place], [place], [address] GAP 8 (Normal) Range: 5-15 CO2 30.0 [...] Range: 70-110 :06 Magnesium Comments: CMP,CBCD FOR [facility] [address] [place], [place], [id number] MG 2.1 mg/dL (Normal) Range: 1.8-2.4 :06 Protein+Creatinine Ratio,Urine Comments: CMP,CBCD FOR [facility] Xnnozsxroj1447 [address] Morton[address] [place], [address] PROT:CRE RATIO 128 {mg/g_CRE} (Normal) Range: 0-200 PROTEIN,UR.RAN. 13.8 mg/dL (Abnormal) UR CREAT 108.00 mg/dL (Normal) :06 Vitamin D,25 Hydroxy Comments: CMP,CBCD FOR [facility] Dfhlhwhuys0008 [address] MortonJay[address] [place], [id number] Vitamin D 25-OH 48.7 ng/mL (Normal) Comments: Vitamin D 25(OH) Status Range Deficiency <20 ng/mL (50nmol/L) Insuffciency 20 - 30 ng/mL (50 - 75 nmol/L) Sufficiency 30 - 100 ng/mL (75 - 250 nmol/L) Toxicity >100 ng/mL (>250 nmol/L) 8-Vvb-084484:07 Fecal Occult Blood , Office (32817) Fecal Occult Blood , Office (Inhouse) negative (Normal) 18-Tpt-88426:22 CBC W/Diff, Automated Comments: RENAL AND MG ARE FOR DR. Hollingsworthotoniel [facility] [address]sp[address] [place], [address] Absolute Lymph 1.92 {X10_3/ul} (Normal) Range: [...] 4.2-5.4 WBC 4.2 K/mm3 (Abnormal) Range: 4.4-11.0 34-Buj-79090:22 Comprehensive Metabolic Profil Comments: RE[facility] AND MG [facility] Ufxpepqfcc0550 [address] [place], [place], [address] GAP 6 (Normal) Range: 5-15 CO2 31.0 [...] 7-18 GLU 87 mg/dL (Normal) Range: 70-110 88-Whv-63806:22 Lipid Profile Comments: RENAL AND MG ARE FOR DR. Ellsworth [facility] Qowmqfovup5883 [place], [address] VLDL 12 mg/dL (Normal) Range: 5-40 LDL [...] Comments: RENAL AND MG [facility] Hqiqncjlsv8378 [place], [address] MG 2.1 mg/dL (Normal) Range: 1.8-2.4 :22 Phosphorus Comments: RENAL AND MG ARE FOR [facility] Rgesmjvwer5458 [place], [address] PHOS 2.6 mg/dL (Normal) Range: 2.5-4.9 :22 Thyroid Stim Hormone (TSH) Comments: RENAL AND MG ARE FOR [facility] Djdwknvyql0684 [place], [address] TSH 2.69 {uIU/mL} (Normal) Range: 0.358-3.74 :22 Vitamin D,25 Hydroxy Comments: RENAL AND MG ARE FOR [facility] Zgpcvirkhq4190 [address] [place] [place], [address] Vitamin D 25-OH 51.1 ng/mL (Normal) [...] number BIBIANA-DIRECT Positive (Abnormal) Comments: Performed at: - [facility] [address] [id number] Director: Joaquim Barrett PhD, Phone: [phone] 05-Tzk-73365:50 CBC W/Diff, Automated Comments: [facility] [address] [place], [address] Absolute Lymph 1.76 {X10_3/ul} (Normal) Range: 0.83-4.51 [...] (Normal) Range: 82-167 Comments: Performed at: - [facility] [id number] Director: Joaquim Barrett PhD, Phone: [phone] :[phone] Complement C4 Comments: [facility] (refer to report for specific site)refer to report for address and phone number COMP C4 15 mg/dL (Normal) Range: 14-44 :50 Comprehensive Metabolic Profil Comments: ORDERED CMP CBCD PROCRE UACDR.SHELLEY ORDERED VITD CMP BIBIANA CBCD C3 C4 MG PROCRE UADR.ENDY ORDERED [facility] Sadtbkiqyn[address] [place], [place], [phone] GAP 5 (Normal) Range: 5-15 CO2 28.0 [...] (Normal) Range: 70-110 :50 Culture, Urine Comments: [facility] Prwyozuxgq3532 [address]. [place], [place], [id number] CUUR See Note (Normal) Comments: Urine CultureCulture exhibits no growth. :50 Magnesium Comments: ORDERED CMP CBCD PROCRE UACDRZOË ORDERED VITD CMP BIBIANA CBCD C3 C4 MG PROCRE UADR.ENDY ORDERED [facility] Fshyybhohf4076 [place], [address] MG 2.1 mg/dL (Normal) Range: 1.8-2.4 :50 Protein+Creatinine Ratio,Urine Comments: [facility] Vigwnynqco3151 [place], [address] PROT:CRE RATIO 161 {mg/g_CRE} (Normal) Range: 0-200 PROTEIN,UR.RAN. 10.6 mg/dL (Normal) UR CREAT 65.90 mg/dL (Normal) :50 Urinalysis, Routine (Dipstick) Comments: How was Urine Obtained? CLEAN [facility] Mdxtbvxpqy2235 [place], [address] LEUK ESTERASE 25 /ul (Abnormal) OCCULT BLOOD-UR Negative /ul (Normal) NITRITE UR Negative (Normal) UROBILI Normal mg/dL (Normal) PROT DIPSTX Negative mg/dL (Normal) pH UR 6.0 (Normal) Range: 5.0 - 8.0 SP.GR. DIPSTX 1.020 (Normal) Range: 1.002-1.030 KETONE UR Negative mg/dL (Normal) BILIRUBIN URINE Negative mg/dL (Normal) GLUCOSE, UR Normal mg/dL (Normal) CLARITY Clear (Normal) COLOR Yellow (Normal) :50 Vitamin D,25 Hydroxy Comments: [facility] Uppxvoagdz5465 [place], [address] Vitamin D 25-OH 58.7 ng/mL (Normal) Comments: Vitamin D 25(OH) Status Range Deficiency <20 ng/mL (50nmol/L) Insuffciency 20 - 30 ng/mL (50 - 75 nmol/L) Sufficiency 30 - 100 ng/mL (75 - 250 nmol/L) Toxicity >100 ng/mL (>250 nmol/L) 27-Jul-20158:33 Lipid Profile Comments: [facility] Gtdwrlpyse0869 [address] [place] [place], [phone] VLDL 18 mg/dL (Normal) Range: 5-40 LDL [...] 200-240 mg/dL Borderline >240 mg/dL High Risk :33 Vitamin D,25 Hydroxy Comments: [facility] Tizczlmhnc8[address] [place], [id number] Vitamin D 25-OH 43.3 ng/mL (Normal) Comments: Vitamin D 25(OH) Status Range Deficiency <20 ng/mL (50nmol/L) Insuffciency 20 - 30 ng/mL (50 - 75 nmol/L) Sufficiency 30 - 100 ng/mL (75 - 250 nmol/L) Toxicity >100 ng/mL (>250 nmol/L) 99-Hzq-897184:12 EBV Acute Prof IgG / IgM Comments: [facility] (refer to report for specific site)refer to report for address and phone number INTERPRETATION Comment (Normal) Comments: EBV Interpretation ChartInterpretation EBV-IgM EA(D)-IgG VCA-IgG EBNA-IgGEBV Seronegative - - - -Early Phase + - - -Acute Primary + +or- + -InfectionConvalescence/Past - +or- + +InfectionReactivated +or- + + +Infection + Antibody Present - Antibody Ab sentPerformed at: - [facility] [address] [id number] Director: Joaquim Barrett PhD, Phone: [phone] EB-NAg [id number] 38.3 U/mL (Abnormal) Range: 0.0-17.9 Comments: Negative <18.0 Equivocal 18.0 - 21.9 Positive >21.9 EB-VCA [id number] 306.0 U/mL (Abnormal) Range: 0.0-17.9 Comments: Negative <18.0 Equivocal 18.0 - 21.9 Positive >21.9 EB-EA IgG [address] <9.0 U/mL (Normal) Range: 0.0-8.9 Comments: Negative < 9.0 Equivocal 9.0 - 10.9 Positive >10.9 EB-VCA [id number] < 36.0 U/mL (Normal) Range: 0.0-35.9 Comments: Negative <36.0 Equivocal 36.0 - 43.9 Positive >43.9 :15 Immunofixation Urine Comments: PATIENT STATES FLU X'S 2 WAS DONE AT THE OFFICE BY ONE OFTHE NURSES.[facility] (refer to report for specific site)refer to report for address and phone number CLIVE Urine Comment (Normal) Comments: No monoclonality detected.Performed at: [facility] [address] [id number] Director: Joaquim Barrett PhD, Phone: [phone] :15 Immunofixation, Serum Comments: PATIENT STATES FLU X'S [...] G 1776 697 mg/dL (Abnormal) Range: 700-1600 :15 [place] [employer] Comments: PATIENT STATES FLU [...] % (Normal) BETA GLOB,U 30.8 % (Normal) LGWQX-9-XGQS,U 16.9 % (Normal) ZHEWR-2-CKQE,U 1.8 % (Normal) ALBUMIN,UR 35.1 % (Normal) PROTEIN,UR 13.0 mg/dL (Normal) Range: 0.0-15.0 :15 Protein Electroph, S Comments: PATIENT STATES FLU X'S 2 WAS DONE AT THE OFFICE BY ONE OFTHE NURSES.[facility] (refer to report for specific site)refer to report for address and phone number NOTE Comment (Normal) Comments: Protein electrophoresis scan will follow via computer,mail, or medical doctor md delivery. NOTE: Comment (Normal) Comments: The SPE pattern appears essentially unremarkable. Evidenceof monoclonal protein is not apparent. INTERPRETATION Comment (Normal) Comments: Protein electrophoresis scan will follow via computer,mail, or medical doctor md delivery. A/G RATIO 1.7 (Normal) Range: 0.7-2.0 GLOBULIN, TOTAL 2.3 g/dL (Normal) Range: 2.0-4.5 M-SPIKE (Normal) Comments: Not Observed GAMMA GLOBULIN 0.7 g/dL (Normal) Range: 0.5-1.6 BETA GLOBULIN 0.8 g/dL (Normal) Range: 0.6-1.3 ALPHA-2 GLOBUL 0.6 g/dL (Normal) Range: 0.4-1.2 ALPHA-1 GLOBUL 0.2 g/dL (Normal) Range: 0.1-0.4 ALBUMIN 3.9 g/dL (Normal) Range: 3.2-5.6 PROTEIN,TOTAL 6.2 g/dL (Normal) Range: 6.0-8.5 81-Grx-928356:22 Rapid Flu (69728 x 2) Influenza A Ag negative (Normal) 50-Qre-833841:56 Vitamin D,25 Hydroxy Comments: [facility] Okstemdmvl13[address] [place], [place], [id number] Vitamin D 25-OH 87.5 ng/mL (Normal) Comments: Vitamin D 25(OH) Status Range Deficiency <20 ng/mL (50nmol/L) Insuffciency 20 - 30 ng/mL (50 - 75 nmol/L) Sufficiency 30 - 100 ng/mL (75 - 250 nmol/L) Toxicity >100 ng/mL (>250 nmol/L) :31 CBC W/Diff, Automated Comments: [facility] Izomaatbvd29[address] [place], [place], [address] Absolute Lymph 1.68 {X10_3/ul} (Normal) Range: 0.83-4.51 [...] 4.2-5.4 WBC 3.9 K/mm3 (Abnormal) Range: 4.4-11.0 :31 Comprehensive Metabolic Profil Comments: [facility] Udpzousbhg4[address] [place], [place], [address] GAP 3 (Abnormal) Range: 5-15 CO2 32.0 [...] (Normal) Range: 70-110 :31 Protein+Creatinine Ratio,Urine Comments: [facility] Xudkydqnqf7199 [address] [place], [place], [address] PROT:CRE RATIO 180 {mg/g_CRE} (Normal) Range: 0-200 PROTEIN,UR.RAN. 39.2 mg/dL (Abnormal) UR CREAT 218.00 mg/dL (Normal) :31 Urinalysis, Complete Comments: How was Urine Obtained? Urine, [facility] Fzvibdxfuw5093 [facility] [place], [place], [id number] AMORPHOUS 1+ (Normal) MUCUS, URINE 0 SEEN [...] CLARITY Sl. Cloudy (Normal) COLOR Yellow (Normal) 66-Krv-741814:20 Basic Metabolic Profile (BMP) Comments: [facility] Orkkbsjgou0480 [facility]. [place], [place], [address] GAP 6 (Normal) Range: 5-15 CO2 30.0 [...] 7-18 GLU 89 mg/dL (Normal) Range: 70-110 62-Yve-483828:20 CBC-Complete Blood Cnt No Diff Comments: [facility] [address] [place], [address] MPV 9.2 fL (Normal) Range: 6.2-12.0 PLT [...] 4.2-5.4 WBC 4.7 K/mm3 (Normal) Range: 4.4-11.0 39-Vki-588530:01 Basic Metabolic Profile (BMP) Comments: Test performed at:[facility] Kvwunzkuqh6830 [facility]. [place], [place] [address] GAP 4 (Abnormal) Range: 5-15 CO2 30.0 [...] 7-18 GLU 97 mg/dL (Normal) Range: 70-110 69-Qbl-889711:01 Vitamin D,25 Hydroxy Comments: Test performed at:[facility] Obroekchxe8553 [facility] [place] [address] Vitamin D 25-OH 22.7 ng/mL (Normal) Comments: Vitamin D 25(OH) Status Range Deficiency <20 ng/mL (50nmol/L) Insuffciency 20 - 30 ng/mL (50 - 75 nmol/L) Sufficiency 30 - 100 ng/mL (75 - 250 nmol/L) Toxicity >100 ng/mL (>250 nmol/L) 66-Zsk-09370:12 CBC W/Diff, Automated Comments: Test performed at:[facility] Pciswordur3068 [place] [address] Absolute Lymph 1.39 {X10_3/ul} (Normal) Range: [...] 4.2-5.4 WBC 5.3 K/mm3 (Normal) Range: 4.4-11.0 :12 Comprehensive Metabolic Profil Comments: Test performed at:[facility] Lvacgacipr2917 [place] [address] GAP 9 (Normal) Range: 5-15 CO2 29.0 [...] :52 CBC W/Diff, Automated Comments: Test performed at:[facility] Gmikkhreof2995 [place] [address] Absolute Lymph 1.62 {X10_3/ul} (Normal) Range: 0.83-4.51 [...] :52 Comprehensive Metabolic Profil Comments: Test performed at:[facility] Bhbflacdoj6367 [place] [address] GAP 6 (Normal) Range: 5-15 CO2 31.0 [...] 7-18 GLU 77 mg/dL (Normal) Range: 70-110 0-Zmq-083810:40 FENTANYL Blood Level Comments: Test performed at:[facility] Fwqdtrabiu3989 [facility] [place] [address] FENTANYL BLD (Normal) Comments: Sent directly to testing facility per ordering physician.02/16/15 1622 [facility] :53 CBC W/Diff, Automated Comments: Test performed at:[facility] Cnypqjuude1239 [facility]. [place], [place] [address] Absolute Lymph 1.44 {X10_3/ul} (Normal) Range: 0.83-4.51 [...] :53 Comprehensive Metabolic Profil Comments: Test performed at:[facility] Reyaqnlqgi9890 [facility] HospitalJayden [place], [place] [address] GAP 5 (Normal) Range: 5-15 CO2 31.0 [...] 7-18 GLU 90 mg/dL (Normal) Range: 70-110 :53 Lipid Profile Comments: Test performed at:[facility] Mtrixehvjr4857 [facility] [place] [address] VLDL 13 mg/dL (Normal) Range: [...] 200-240 mg/dL Borderline >240 mg/dL High Risk 15-Szs-53917:53 Vitamin D,25 Hydroxy Comments: Test performed at:[facility] Fxftytsj[address] [place] [address] Vitamin D 25-OH 27.3 ng/mL (Normal) Comments: Vitamin D 25(OH) Status Range Deficiency <20 ng/mL (50nmol/L) Insuffciency 20 - 30 ng/mL (50 - 75 nmol/L) Sufficiency 30 - 100 ng/mL (75 - 250 nmol/L) Toxicity >100 ng/mL (>250 nmol/L) 1-Mom-984923:14 Culture, Urine Comments: Test performed at:[facility] Qtwijypljk[address] [place] [address] ; ordered by endy JACKSON See Note (Normal) Comments: Urine CultureCulture exhibits no growth. 5-Cat-666093:14 Urinalysis, Routine (Dipstick) Comments: How was Urine Obtained? CLEAN CATCHTest performed at:[facility] Qopmqzbuuv[address] [place] [address] LEUK ESTERASE Negative /ul (Normal) OCCULT BLOOD-UR Negative /ul (Normal) NITRITE UR Negative (Normal) UROBILI Normal mg/dL (Normal) PROT DIPSTX Negative mg/dL (Normal) pH UR 5.0 (Normal) Range: 5.0 - 8.0 SP.GR. DIPSTX 1.030 (Normal) Range: 1.002-1.030 KETONE UR Negative mg/dL (Normal) BILIRUBIN URINE Negative mg/dL (Normal) GLUCOSE, UR Normal mg/dL (Normal) CLARITY Clear (Normal) COLOR Yellow (Normal) 63-Lxn-816879:19 FENTANYL Blood Level Comments: Test performed at:[facility] Gqhoxmafaw9768 [address] [place], [place] [address] FENTANYL BLD (Normal) Comments: Scanned image report available in EMR :48 CBC W/Diff, Automated Comments: Test performed at:[facility] Pbdhvgnwlq4054 [address] Gut[address] [place], [place] [address] Absolute Lymph 2.34 {X10_3/ul} (Normal) Range: 0.83-4.51 [...] 4.2-5.4 WBC 4.6 K/mm3 (Normal) Range: 4.4-11.0 46-Tly-84021:48 Comprehensive Metabolic Profil Comments: Test performed at:[facility] Bvktfjexuy4023 [facility] [place] [address] GAP 4 (Abnormal) Range: 5-15 CO2 31.0 [...] CMV Acute Antibody IgM Comments: Test performed at:[facility] Kmykvqlytg1347 [facility] [place] [address] CMVIgM AB < 30.0 AU/mL (Normal) Range: 0.0-29.9 Comments: Negative <30.0 Equivocal 30.0 - 34.9 Positive >34.9A positive result is generally indicative of acuteinfection, react ivation or persistent IgM production.Performed at: - [facility] [id number] Director: Yury Cornelius PhD, Phone: [phone] :39 CMV Antibody IgG Comments: Test performed at:[facility] Knprpihhhi2569 [place] [address] CMV AB IgG < 0.60 U/mL (Normal) Range: 0.00-0.59 Comments: Negative <0.60 Equivocal 0.60 - 0.69 Positive >0.69 :39 Comprehensive Metabolic Profil Comments: Test performed at:[facility] Eegkzdsvsd7188 [place] [address] GAP 4 (Abnormal) Range: 5-15 [...] GLU 88 mg/dL (Normal) Range: 70-110 :39 EBV Acute Prof IgG / IgM Comments: Test performed at:[facility] Npkiinhujr5320 [place] [address] INTERPRETATION Comment (Normal) Comments: EBV Interpretation ChartInterpretation EBV-IgM VCA-IgG EBNA-IgG EA(D)-IgGEBV Seronegative - - - -Early Phase + - - -Acute Primary + + - +or-InfectionConvalescence/Past - + + +or-InfectionReactivated +or- + + +Infection + Antibody Present - Antibody Absent EB-NAg [id number] 36.1 U/mL (Abnormal) Range: 0.0-17.9 Comments: Negative <18.0 Equivocal 18.0 - 21.9 Positive >21.9 EB-VCA [id number] 289.0 U/mL (Abnormal) Range: 0.0-17.9 Comments: Negative <18.0 Equivocal 18.0 - 21.9 Positive >21.9 EB-EA IgG [id number] <9.0 U/mL (Normal) Range: 0.0-8.9 Comments: Negative < 9.0 Equivocal 9.0 - 10.9 Positive >10.9 EB-VCA [id number] < 36.0 U/mL (Normal) Range: 0.0-35.9 Comments: Negative <36.0 Equivocal 36.0 - 43.9 Positive >43.9 :39 Lipid Profile Comments: Test performed at:[facility] [address]ns[address] [place] [address] VLDL 11 mg/dL (Normal) Range: 5-40 LDL [...] :39 Vitamin D,25 Hydroxy Comments: Test performed at:[facility] Cqidlubzzu2241 [place] [address] Vitamin D 25-OH 36.8 ng/mL (Normal) Comments: Vitamin D 25(OH) Status Range Deficiency <20 ng/mL (50nmol/L) Insuffciency 20 - 30 ng/mL (50 - 75 nmol/L) Sufficiency 30 - 100 ng/mL (75 - 250 nmol/L) Toxicity >100 ng/mL (>250 nmol/L) 77-Uuk-676165:32 URINE MICHI CULTURE-ZACHARY COL Comments: PATIENT NOT FASTINGPERFORMED BY: [facility] Jcjryg6496 [facility] [id number] Information: SRC:UR [id number] COUNT (02690) Result 1 ENTECC (Abnormal) Comments: Enterobacter cloacae [...] S Urine Final report Culture,Comprehensi (Abnormal) ve 04-Ags-49845:50 Urinalysis, Office (18371) UA - LEUKOCYTE ESTERASE Small (Normal) UA - NITRITE Negative (Normal) URINE UROBILINGN ZACHARY 2 mg/dL (Normal) TIMED UA - PROTEIN Negative mg/dL (Normal) UA - PH 6.5 (Normal) UA - BLOOD non-hemolyzed trace (Normal) UA - SPECIFIC GRAVITY 1.010 (Normal) UA - KETONES Negative mg/dL (Normal) UA - BILIRUBIN Negative (Normal) UA - GLUCOSE Negative (Normal) [id number] [place] Positive (Abnormal) Comments: Performed at: - [facility] [address] [id number] Director: Yury Cornelius PhD, Phone: [phone] ANEX FRANCOIS[facility] <0.2 {AI} (Normal) Range: 0.0-0.9 CONTACT LENS ASSISTANT-[facility] >8.0 {AI} (Abnormal) Range: 0.0-0.9 : ANTIJO[facility] <0.2 {AI} (Normal) Range: 0.0-0.9 : ANTISCL[facility] <0.2 {AI} (Normal) Range: 0.0-0.9 : C3 108 (Normal) Range: 90-180 Comments: Result Units: mg/dL AdultPerformed at: CB - [facility] [address] [id number] Director: Yury Cornelius PhD, Phone: [id number] C4 15 (Normal) Range: 9-36 Comments: Result Units: mg/dL Adult CBCD ALC 1.40 {X10_3/ul} (Normal) Range: 0.83-4.51 [...] 4.2-5.4 WBC 3.6 K/mm3 (Abnormal) Range: 4.4-11.0 : CENTB <0.2 {AI} (Normal) Range: 0.0-0.9 : CMP GAP 4 (Abnormal) Range: 5-15 CO2 [...] 7-18 GLU 95 mg/dL (Normal) Range: 70-110 :00 DNAAB-[facility] <1 {IU/mL} (Normal) Range: 0-9 Comments: Negative <5Equivocal 5 - 9Positive >9 : PROCRER tPROCRER 97 {mg/g_CRE} (Normal) Range: 0-200 PROUR 9.1 mg/dL (Normal) CREU 93.3 mg/dL (Normal) : SJ [facility] tSJ2 < 0.2 {AI} (Normal) Range: 0.0-0.9 tSJ1 < 0.2 {AI} (Normal) Range: 0.0-0.9 07-Eoo-50648:00 UAC Comments: How was Urine Obtained? CLEAN [...] UCLAR Sl. Cloudy (Normal) UCOL Yellow (Normal) 5-Jgg-463797:53 CUUR URC See Note (Normal) Comments: ORGANISM 1: Mixed Gram Positive OrganismsColony Count 1000-10,000MIX CONTAM Mixed Contaminants. Submit new specimen if indicated. 24-Jmb-717403:07 BIBIANA Positive (Abnormal) Comments: Performed at: - [address] [id number] Director: Yury Cornelius PhD, Phone: [phone] 72-Dys-901374:07 CBCD ALC 1.50 {X10_3/ul} (Normal) Range: 0.83-4.51 [...] HEBSAG ttHEBSAG Negative (Normal) Comments: Performed at: [address] [id number] Director: Yury Cornelius PhD, Phone: [phone] at: [address] [place] [address] [id number] Director: Rogelio Randle PhD, Phone: [phone] at: [address] [id number] Director: Murray Mabry MD, Phone: [phone] :[phone] HECAB tHECAB <0.1 {s/co_ratio} (Normal) Range: 0.0-0.9 Comments: Negative: < 0.8Indeterminate: 0.8 - 0.9Positive: > 0.9In order to reduce the incidence of a false positiveresult, the CDC recommends that all s/co ratiosbetween 1.0 and 10.9 be confirmed b y a more specificsupplemental or PCR testing. [facility] offers HCV Abw/Reflex to Verification test #[id number]. :07 HLAB27 tHLAB27 Negative (Normal) Comments: HLA-B*27 NegativeA [facility] CLIA ID Number [id number] test was performed using PCR (Polymerase ChainReaction)/SSOP (Sequence Specific Oligonucleotide Probes)technique. SBT (Sequence Based Typing) and/ or SSP(Sequence Specific Primers) may be used as supplementalmethods when necessary. Please contact HLA CustomerService at if you have any questions.Director of HLA LaboratoryDr Rogelio Randle, PhD :07 RF < 10.0 {IU/mL} (Normal) : SED tSEDRATE 13 mm/h (Normal) Range: 0-30 :37 BID 0.21 mg/dL (Normal) Comments: Comments: [id number]; CALCIFEDOIL;PLASMA;RF Range: 0.00-0.30 :37 CBCD ALC 1.03 [...] (Abnormal) Range: 4.4-11.0 :37 CMP Comments: Comments: [id number]; CALCIFEDOIL;PLASMA;RF GAP 7 (Normal) Range: 5-15 CO2 [...] 7-18 GLU 93 mg/dL (Normal) Range: 70-110 43-Jnf-182450:37 LIPID Comments: Comments: [id number]; CALCIFEDOIL;PLASMA;RF VLDL 24 mg/dL (Normal) Range: 5-40 LDL 71 mg/dL (Normal) Range: 0-130 HDL 40 mg/dL (Normal) Comments: Reference RangeHDL <40 mg/dL Low HDL CholesterolHDL >or= 60 mg/dL High HDL Cholesterol CHOL 135 mg/dL (Normal) Comments: <200 mg/dL Ogehbwzut227-056 mg/dL Borderline>240 mg/dL High Risk TRIG 122 mg/dL (Normal) Range: 0-199 Comments: Serum Triglycerides Reference IntervalNormal <150 mg/dLBorderline high 150 - 199 mg/dLHigh 200 - 499 mg/ dLVery High > or = 500 mg/dL 98-Qhk-487866:37 TSH 1.70 {uIU/mL} (Normal) Comments: Comments: [id number]; CALCIFEDOIL;PLASMA;RF Range: 0.358-3.74 09-Akg-821167:30 VITD 57.3 mg/mL (Normal) Comments: Vitamin D 25(OH) Status RangeDeficiency <20 ng/mL (50nmol/L)Insuffciency 20 - 30 ng/mL (50 - 75 nmol/L)Sufficiency 30 - 100 ng/mL (75 - 250 nmol/L)Toxicity >100 ng/mL (>250 nmol/L) :27 URINE MICHI CULTURE-ZACHARY COL Comments: PATIENT NOT FASTINGPERFORMED BY: [facility] Bzuysu65[address] Walton RoadRutherford [facility] [id number] Information: SRC:UR [id number] COUNT ([id number]) Antimicrobial MIHEAD (Normal) Comments: S = Susceptible; [...] primarily for treating urinary tract infections. (CLSI, E739-X45,2009) Urine Final report (Abnormal) Culture,Comprehensive 92-Sqk-281513:11 Urinalysis, Office (83634) UA - LEUKOCYTE ESTERASE Trace (Normal) UA - NITRITE Negative (Normal) URINE UROBILINGN ZACHARY TIMED Normal mg/dL (Normal) UA - PROTEIN Negative mg/dL (Normal) UA - PH 6 (Abnormal) UA - BLOOD Hemolyzed Trace (Normal) UA - SPECIFIC GRAVITY 1.025 (Normal) UA - KETONES Small mg/dL (Normal) UA - BILIRUBIN Small (Normal) UA - GLUCOSE Negative (Normal) 98-Hnd-268432:28 MICHI CULTURE-OTHER (43613) Comments: PATIENT NOT FASTINGPERFORMED BY: JOHN [facility] [address] [place] [id number] Information: SRC:THRT [id number] Result 1 RRF (Normal) Comments: Routine respiratory christ Upper Respiratory Culture Final report (Normal) : ARUNA 42 U/L (Normal) Range: 25-115 10 94-Htf-092590:10 CBCD ANC 5.0 {X10_3/uL} (Normal) Range: 2.0-7.7 [...] 4.2-5.4 WBC 6.8 K/mm3 (Normal) Range: 4.4-11.0 66-Lda-291541:10 CMP GAP 6 (Normal) Range: 5-15 CO2 [...] 7-18 GLU 104 mg/dL (Normal) Range: 70-110 70-Axe-528730:10 LIPASE 69 U/L (Abnormal) Range: 70-290 60-Pcc-751321:17 Urinalysis, Office (09195) UA - LEUKOCYTE ESTERASE Small (Normal) UA [...] (Normal) Range: 16.0-45.0 19 Comments: Performed at: [address] [id number] Director: Yury Cornelius PhD, Phone: [phone] : GOLD 194 ng/mL (Normal) Range: 8-252 19 :31 LIVER BID 0.17 mg/dL (Normal) Range: 0.00-0.30 BIT 0.50 mg/dL (Normal) Range: 0.00-1.00 ALT 134 U/L (Abnormal) Range: 12-78 ALK 111 U/L (Normal) Range: 50-136 AST 107 U/L (Abnormal) Range: 15-37 ALB 3.8 g/dL (Normal) Range: 3.4-5.0 TPROT 6.7 g/dL (Normal) Range: 6.4-8.2 :08 URINE MICHI CULTURE-ZACHARY COL Comments: PATIENT NOT FASTINGPERFORMED BY: [facility] [id number] Information: SRC:UR [id number] COUNT (46307) Antimicrobial MIHEAD (Normal) Comments: S = Susceptible; I = Intermediate; R = Resistant P = Positive; N = Negative MICS are expressed in micrograms per mL Antibiotic RSLT#1 RSLT#2 Susceptibility RSLT#3 RSLT#4Amoxicillin/Clavulanic Acid SAmpicillin SCefazolin SCefepime SCeftriaxone SCefuroxime SCephalothin SCiprofloxacin IErtapenem SGentamicin SLevofloxacin SNitrofurantoin R Piperacillin STetracycline RTobramycin STrimethoprim/Sulfa S Result 1 Proteus mirabilis Comments: 1,000 Colonies/mL (Normal) Urine Final report Culture,Comprehensive (Normal) :55 Urinalysis, Office (04624) UA - BILIRUBIN Negative (Normal) UA - BLOOD Negative (Normal) UA - GLUCOSE Negative (Normal) UA - KETONES Negative mg/dL (Normal) UA - LEUKOCYTE ESTERASE Trace (Normal) UA - NITRITE Negative (Normal) UA - PH 5.0 (Normal) Comments: 5.5 UA - PROTEIN Negative mg/dL (Normal) UA - SPECIFIC GRAVITY 1.025 (Normal) Comments: > 1.030 URINE UROBILINGN ZACHARY TIMED Normal mg/dL (Normal) 55-Fyo-064846:50 CHEST WITHOUT CONTRAST Radiology Report See Note [...] Payan M.D.December 29, 2012 at 4:08:08 PM [id number] ly Signed GP/GP If you are the referring physician and would like to consult with theradiologist who provided this interpretation, please contact Nicolas Boyer at [phone]. If this radiolo gist is unavailable, youwill be directed to another radiologist to assist. If you are a patient with a question regarding this report, pleasecontactyour referring physician directly. Professional Interp retation Provided By: Erik, Phone , These documents contain legally protected [...] 1608 by Rocio Payan MDranscribed on 12/29/12 161 by IT S IMPORTSign by Bayron Payan MD on 12/29/121610 Sign by: Bayron Payan MD 97-Lrl-38921:46 LIVER Radiology Report See Note (Normal) Comments: PROCEDURE: ABDOMINAL ULTRASOUND - RIGHT UPPER QUADRANT REASON FOR VISIT: Female, 62 years old. Elevated liver functiontests. TECHNIQUE: Ultrasound evaluation of the right upper quadrant wasperfor med with real-time and static fairchild-scale imaging. TECHNICAL [...] size of the right kidney. The right hjkikamrakxibr94.1 cm. Normal renal cortex. The right cortex measure s 0.9 cm. Thereisa 1.5 cm x 1.7 cm by 1.1-cm cyst along the medial portion of the kidney.There is no right hydronephrosis. IMPRESSION:Small right renal cyst. Signed:Bayron Payan M.D.December 16, 2012 at 10:11:37 AM [id number] Signed GP/GP If you are the referring physician and would like to consult with theradiologist who provided this interpretation, please contact Anish brewer M.D. at [phone]. If this radiologist is unavailable, youwill be directed to another radiologist to assist. If you are a patient with a question regarding this report, pleasecontactyour referr ing physician directly. Professional Interpretation Provided By: [employer], Phone , These documents contain legally protected [...] 12/16/12 1014 Sign by: Bayron Payan MD 51-Elp-516964:17 EBGM EBNA > 8.0 {AI} (Abnormal) Range: 0.0-0.8 Comments: Negative <0.9Equivocal 0.9 - 1.0Positive >1.0 tEBINT Comment (Normal) Comments: EBV Interpretation Chart.Interpretation VCA-IgM EA-IgG VCA-IgG NA-ABS.Susceptible - - - -Acute Infection + +or- +or- -Convalescent Phas e +or- +or- + +Chronic or Reactivated - + + +or-Old Infection - - +or- ++ Antibody Present - Antibody AbsentPerformed at: [address] [id number] Director: Yury Cornelius PhD, Phone: [phone] EBVG > 8.0 {AI} (Abnormal) Range: 0.0-0.8 Comments: Negative <0.9Equivocal 0.9 - 1.0Positive >1.0 EBEAG <0.2 {AI} (Normal) Range: 0.0-0.8 Comments: Negative <0.9Equivocal 0.9 - 1.0Positive >1.0 EBVM < 0.2 {AI} (Normal) Range: 0.0-0.8 Comments: Negative <0.9Equivocal 0.9 - 1.0Positive >1.0 14-Lkh-456910:17 HEABC tHEPCCOMM Comment (Normal) Comments: Non reactive [...] (Normal) ttHEBSAG Negative (Normal) HEAM Negative (Normal) 93-Ixu-291191:17 LIVER BID 0.12 mg/dL (Normal) Range: 0.00-0.30 BIT 0.40 mg/dL (Normal) Range: 0.00-1.00 ALT 182 U/L (Abnormal) Range: 12-78 ALK 122 U/L (Normal) Range: 50-136 AST 121 U/L (Abnormal) Range: 15-37 ALB 4.1 g/dL (Normal) Range: 3.4-5.0 TPROT 7.3 g/dL (Normal) Range: 6.4-8.2 03-Jji-470051:17 TSH 1.08 {uIU/mL} (Normal) Range: 0.358-3.74 27-Jun-20128:46 CHEST WITHOUT CONTRAST Radiology Report See Note [...] Signed:Clark D.O.June 27, 2012 at 5:23:04 PM [id number] Signed DL/DL If you are the referring physician and would like to consult with theradiologist who provided this interpretati on, please contact Mone Lazo at [phone]. If this radiologist is unavailable, you will bedirected to another radiologist to assist. If you are a patient with a question regarding this report , pleasecontactyour referring physician directly. Professional Interpretation Provided By: Erik Phone , These documents contain legally protected [...] return or destructionofthese documents. Dictated on 01/30 09 by Molly Epperson DOeTranscribed on 06/27/121726 by ITS IMPORTSign by Kamilla Epperson DO on 06/27/121727 Sign by: Kamilla Epperson DO 5-Exu-712012:41 DEXA BONE DENSITY STUDY (HP) Radiology Report [...] Payan M.D.June 26, 2012 at 11:52:03 AM [id number] Signed GP/GP If you are the referring physician and would like to consult with theradiologist who provided this interpretation, please contact Nicolas Boyer at [phone]. If this radiologist is unavailable, youwill be directed to another radiologist to assist. If you are a patient with a question regarding this report, pleasecontactyour referring physician directly. Professional Interpretation Provided By: [employer], Phone , These documents contain lega lly [...] se documents. Dictated on 06/26/12 1103 by Schuyler KRISHNAN,Rocioranscribed on 06/26/12 1231 by ITS IMPORTSign by Schuyler KRISHNAN,Bayron on 06/26/12 1232 Sign by: Bayron Payan MD 32-Rmo-111542:08 T4, FREE (THYROXINE) Comments: PATIENT NOT FASTINGPERFORMED BY: [facility] [id number] Information: [id number] (21487) T4,Free(Direct) 1.34 ng/dL (Normal) Range: 0.82-1.77 :08 T3, FREE (TRIDOTHYRONINE) (80202) Comments: PATIENT NOT FASTINGPERFORMED BY: [facility] Yentbd1297 [facility] [id number] Triiodothyronine,Free,Serum 2.7 pg/mL (Normal) Range: 2.0-4.4 :08 TSH (01285) Comments: PATIENT NOT FASTINGPERFORMED BY: [facility] Cdobmw7536 [facility] [id number] TSH 1.370 {uIU/mL} (Normal) Range: 0.450-4.500 :58 [...] D deficiency has been defined by the [place] ofMedicine and an Endocrine Society practice guideline as alevel of serum 25-OH vitamin D less than 20 ng/mL (1,2).The Endocrine Society went on to further define vitamin Dinsufficiency as a level between 21 and 29 ng/mL (2).1. IOM ([place] of Medicine). 2010. Dietary reference intakes for calcium and D. [place]: The National Academies Press.2. Micky MF, Jessenia [place], Katrin CAMARGO, et al. Evaluation, treatment, and prevention of vitamin D deficiency: an Endocrine Society clinical practice guideline. JCEM. 2010; 96(7): 1911-30.Performed at: [address] Director: Yury Cornelius PhD, Phone: [phone] 22-Dec-20110:00 CHEST WITHOUT CONTRAST Radiology Report See Note (Normal) Comments: PROCEDURE: CT CHEST WITHOUT CONTRAST REASON FOR EXAM: Female, 61 years old. Lung nodule TECHNIQUE: High resolution transaxial imaging was performed without theadministration of intrav enous contra st material. COMPARISON: None. FINDINGS: Right lower lung nodule measuring 6 mm on axial image # 65 is similar toprior study allowing for differences in technical factors. [...] Signed BP/ BP Professional Interpretation Provided By: [facility] [employer] [facility]iologyBat[facility], , To consult with a radiologist regarding this report, please call our [id number] juanita phillips @ Dictated on 12/22/11 1022 by Luis Manuel Stahl MDTranscribed on 12/22/11 1059 by ITS IMPORTSign by Luis Manuel Stahl MD on 12/22/11 1100 Sign by: Luis Manuel Stahl MD :36 CBCMD RBCM NORM C+C {NORMAL} (Normal) PE [...] :36 VITD 74.9 ng/mL (Normal) Comments: appt /*05/07 Range: 30.0-100.0 Comments: Vitamin D deficiency has been defined by the [place] ofMedicine and an Endocrine Society practice guideline as alevel of serum 25-OH vitamin D less than 20 ng/mL (1,2).The Endocrine Society went on to further define vitamin Dinsufficiency as a level between 21 and 29 ng/mL (2).1. IOM ([place] of [employer]). 2010. Dietary reference intakes for calcium and D. [place]: The National Academies Press.2. Micky MF, Jessenia SYKES, Katrin CAMARGO, et al. Evaluation, treatment, and prevention of vitamin D deficiency: an Endocrine Society clinical practice guideline. JCEM. 2010; 96(7): 2520-30.Performed at: - [facility] [id number] Director: Alma Rodríguez MD, Phone: [phone] :[phone] CBCD,SMEAR DIFF RED CELL MORPH SeeNote [...] 7-18 GLU 88 mg/dL (Normal) Range: 70-110 :47 VIT D,25 55150 81.4 ng/mL (Normal) Range: 30.0-100.0 Comments: Vitamin D deficiency has been defined by the [place] of[place]icine and an Endocrine Society practice guideline as alevel of serum 25-OH vitamin D less than 20 ng/mL (1,2).The Endocrine Society went on to further define vitamin Dinsufficiency as a level between 21 and 29 ng/mL (2).1. IOM ([place] of Medicine). 2011. Dietary reference intakes for calcium and D. [place]: The National Academies Press.2. Micky MF, [place], Katrin CAMARGO, et al. Evaluation, treatment, and prevention of vitamin D deficiency: an Endocrine Society clinical practice guideline. JCEM. 2010; 96(7): 1911-30. Please note reference interval changePerformed at: [address] [id number] Director: Alma Rodríguez MD, Phone: [phone] 58-Pyh-297037:11 CHEST WITHOUT CONTRAST Radiology Report See Note [...] Dictated on 06/07/11 1022 by RAY JON MD, BTranscribed on 06/07/11 1201 by ITS IMPORTSign by RAY JON MD on 1202 Sign by: RAY JON MD 30-Mar-20116:49 LIPID VLDL 14 mg/dL (Normal) Range: 5-40 [...] ifclinicallywarranted. Dictated on 02/16/11 1124 by Hiwot KRISHNAN,JoyTranscribed on 02/16/111203 by ITS IMPORTSign by Luz Valera MD on 02/16/11 1205 Sign by: Luz Valera MD C-REACTIVE PROT [...] and lateral views of the chest. COMPARISON: 2008 FINDINGS: The lungs are expanded. There is no demonstrated parenchymalabnormality.There is no demonstrated pleural abnormality. Normal heart and pericardium. Normal mediastinum and roeb. Normal v isualized pulmonary arteries.Normalvisualized aortic arch [...] >240 mg/dL High Risk :18 VIT D,25 77194 78.0 ng/mL (Normal) Comments: appt 11/14/10 Range: 32.0-100.0 Comments: Recent studies consider the lower limit of 32.0 ng/mL to bradley threshold for optimal health.William VIVAR. J Nutr. 2004;135(2):317-22.Performed at: - [place] [id number]Lab Director: Alma Rodríguez MD, Phone: [phone] :[phone] COMP METABOLIC GAP 9 (Normal) Range: [...] >240 mg/dL High Risk :19 VIT D,25 50099 55.3 ng/mL (Normal) Range: 32.0-100.0 Comments: Recent studies consider the lower limit of 32.0 ng/mL to bradley threshold for optimal health.William BW. J Nutr. 2004;135(2):317-22.Performed at: [place] [address]Lab Director: Alma Rodríguez MD, Phone: [phone] 72-Ueo-04185:00 BILAT SCRN DIGITAL & CAD Radiology Report [...] 06/14/10728 by SLOANE TRIVEDITranscribed on 06/14/10728 by CHRIS HUGO ACESizurdo by SLOANE TRIVEDI on 06/14/10 135 Sign by: SLOANE TRIVEDI :57 COMP METABOLIC ALK P 82 U/L (Normal) [...] CHOL 204 mg/dL (Abnormal) Comments: <200 mg/dL Mkquocbrm251-173 mg/dL Borderline>240 mg/dL High Risk HDL 48 mg/dL (Normal) Comments: Reference RangeHDL <40 mg/dL Low HDL CholesterolHDL >or= 60 mg/dL High HDL Cholesterol LDL 136 mg/dL (Abnormal) Range: 0-130 TRIG 102 mg/dL (Normal) Comments: Serum Triglycerides Reference IntervalNormal <150 mg/dLBorderline high 150 - 199 mg/dLHigh 200 - 499 mg/ dLVery High > or = 500 mg/dL :57 VIT D,25 55026 53.8 ng/mL (Normal) Range: 32.0-100.0 Comments: Recent studies consider the lower limit of 32.0 ng/mL to bradley threshold for optimal health.William VIVAR. J Nutr. 2004;135(2):317-22.Performed at: - [facility] [id number] Director: Alma Rodríguez MD, Phone: [phone] :13 LIPID HDL 49 mg/dL (Normal) Comments: [...] CHOL 190 mg/dL (Normal) Comments: <200 mg/dL Rxtofcnyy343-520 mg/dL Borderline>240 mg/dL High Risk :13 LIVER ALB 3.6 g/dL (Normal) Range: 3.4-5.0 ALK P 92 U/L (Normal) Range: 50-136 ALT 21 U/L (Normal) Range: 12-78 AST 15 U/L (Normal) Range: 15-37 D BILI 0.13 mg/dL (Normal) Range: 0.00-0.30 T BILI 0.50 mg/dL (Normal) Range: 0.00-1.00 T PROT 6.9 g/dL (Normal) Range: 6.4-8.2 :13 VIT D,25 91416 36.7 ng/mL (Normal) Range: 32.0-100.0 Comments: Recent studies consider the lower limit of 32.0 ng/mL to bradley threshold for optimal health.William VIVAR. J Nutr. 2004;135(2):317-22.Performed at: [address] [id number] Director: Milan Torres MD 3-Zaz-828372:43 ABDOMEN/PELVIS WITH CONTRAST Radiology Report See Note (Normal) Comments: Exam Number: [id number] CLINICAL:Abdominal pain. CT ABDOMEN AND PELVIS WITH [...] significant spondylolisthesis. Reported By: LUZ VALERA M.D. 52-Fwh-88762:14 CBCD,SMEAR DIFF BAND 2 % (Normal) Range: [...] {uIU/mL} (Normal) Range: 0.358-3.74 :14 VIT D,25 03636 38.9 ng/mL (Normal) Range: 32.0-100.0 Comments: Recent studies consider the lower limit of 32.0 ng/mL to bradley threshold for optimal health.William VIVAR. J Nutr. 2004;135(2):317-22.Performed At: [facility] [place], [place] [id number] 39-Rst-31031:10 C-REACTIVE PROT 40.70 mg/L (Abnormal) Range: 0.0-3.0 Comments: C-Reactive Protein (CRP) provides useful information for thediagnosis, therapy and monitoring of inflammatory processesand associated diseases. For the evaluation of Relative Riskfor Cardiovascular Dise ase, a High Sensitivity CRP (HSCRP)should be ordered. :10 ESR SED RATE 50 (Abnormal) Range: 0-20 :03 Urinalysis, Office (93727) UA - BILIRUBIN Negative (Normal) UA - BLOOD Non Hemolyzed Moderate (Normal) UA - GLUCOSE Negative (Normal) UA - KETONES Negative mg/dL (Normal) UA - LEUKOCYTE ESTERASE Moderate (Normal) UA - NITRITE Negative (Normal) UA - PH 7.5 (Normal) UA - PROTEIN Negative mg/dL (Normal) UA - SPECIFIC GRAVITY 1.015 (Normal) URINE UROBILINGN ZACHARY TIMED 2 mg/dL (Normal) 30-Mar-20090:00 CULTURE, URINE URINE CULTURE See Note {CFU/mL} [...] $$$ <=4 S TRIMETHOPRIM/SULFAMETHOXAZO $ >=320 R 41-Zwo-02449:41 BILAT SCRN DIGITAL & CAD Radiology Report See Note (Normal) Comments: Exam Number: [id number] MAMMOGRAM, BILATERAL SCREENING DIGITAL AND CAD HISTORYRoutine [...] mammograms werealso examined with computer-aided detection software ([employer] Reported By: SLOANE TRIVEDI M.D. :55 BMP BUN 20 mg/dL (Abnormal) Range: 7-18 [...] T PROT 6.8 g/dL (Normal) Range: 6.4-8.2 26-Myl-775882:22 DHEA SULF 4697 < 15 ug/dL (Normal) [...] - 9.1 <0.2 Postmenopausal 23.0 - 116.3 94-Ghm-052859:22 LUTEIN HOR 4283 15.8 m[iU]/mL (Normal) Range: [...] 15.9 - 54.0 Contraceptives 0.7 - 5.6 96-Bic-159415:22 PROLACTIN 4465 10.3 ng/mL (Normal) Range: 2.8-29.2 [...] 208.5 Postmenopausal 1.8 - 20.3Per formed At: [address] [id number] 16-Esm-984091:22 ROUTINE UA BILIRUBIN URINE SeeNote (Normal) Comments: [...] Report See Note (Normal) Comments: Exam Number: [id number] CLINICAL: Headaches, memory loss MRI BRAIN WITH [...] a demonstrated aneurysm or occlusion of the [place] of [place]. There is no extra-axial fluid [...] acute process. Reported By: PEDRO CRESPO M.D. 22-Nov-20089:08 CBCD,SMEAR DIFF CELLS COUNTED 100 (Normal) EOS [...] {uIU/mL} (Normal) Range: 0.34-4.82 :08 VIT D,25 42510 38.2 ng/mL (Normal) Range: 32.0-100.0 Comments: Recent studies consider the lower limit of 32.0 ng/mL to bradley threshold for optimal health.William VIVAR. J Nutr. 2004;135(2):317-22.Performed At: [address] [id number] :08 VITAMIN B12 316 pg/mL (Normal) Range: 211-911 :52 BRAIN/HEAD WITHOUT CONTRAST Radiology Report See Note (Normal) Comments: Exam Number: [id number] CLINICAL:58 year old female with 39 year [...] further evaluation. Reported By: SLOANE VARGAS M.D. 73-Bda-112909:49 KIDNEY (HP) Radiology Report See Note (Normal) Comments: Exam Number: [id number] CLINICAL:Renal insufficiency RENAL ULTRASOUND COMPARISON:None. FINDINGS: The [...] 3.5-5.1 NA 141 mmol/L (Normal) Range: 136-145 68-Qeo-973910:25 CHEST, PA AND LATERAL (MT) Radiology Report See Note (Normal) Comments: Exam Number: [id number] CHEST PA AND LATERAL STATEMENTLeft sided rib [...] Comments: GLU,2HPPG 75gm GLUC PPG GLUP from 0606:D05109E. Comments: Glucose result less than 50 mg/dL [...] 6.7 g/dL (Normal) Range: 6.4-8.2 :42 EBVIgG/M 948913 EB-EA IgG 20338 143 AU/mL (Abnormal) Range: 0-99 Comments: Negative <100 Equivocal 100 - 120 Positive >120 EB-NAg MqF21268 1871 AU/mL (Abnormal) Range: 0-99 Comments: Negative <100 Equivocal 100 - 120 Positive >120 EB-VCA [id number] 3769 AU/mL (Abnormal) Range: 0-99 Comments: Negative <100 Equivocal 100 - 120 Positive >120 EB-VCA [id number] 13 AU/mL (Normal) Range: 0-99 Comments: Negative [...] + Antibody Present - Antibody AbsentPerformed At: [facility] [place], [place] [id number] :42 ROUTINE UA BILIRUBIN URINE SeeNote (Normal) [...] Report See Note (Normal) Comments: Exam Number: [id number] MAMMOGRAM, BILATERAL SCREENING DIGITAL AND CAD HISTORYRoutine [...] werealso examined with computer-aided detection softw are ([employer], [employer] Reported By: SLOANE TRIVEDI M.D. 2-Pqt-007561:34 BIBIANA-D 547334 BIBIANA-DIRECT 51 AU/mL (Normal) Range: 0-99 Comments: [...] {IU/mL} (Normal) Range: 0.0-13.9 Comments: Performed At: [address] [id number] :34 TSH 2.12 {uIU/mL} (Normal) Range: 0.34-4.82 [...] 500 mg/dL VLDL 38 mg/dL (Normal) Range: -40 :20 LIPID CHOL 183 mg/dL (Normal) Comments: [...] T PROT 6.5 g/dL (Normal) Range: 6.4-8.2 :08 CULTURE, URINE URINE CULTURE See Note {CFU/mL} [...] $$$ <=16 S TRIMETHOPRIM/SULFAMETHOXAZ $$ <=10 S 51-Rku-900444:08 ROUTINE UA BILIRUBIN URINE SeeNote (Normal) Comments: [...] 0.2 EU/dl (Normal) Range: 0.2 - 1.0 76-Ihp-232313:45 CULTURE, URINE URINE CULTURE See Note {CFU/mL} [...] $$$ <=16 S TRIMETHOPRIM/SULFAMETHOXAZ $$ <=10 S :30 LIPID CHOL 181 mg/dL (Normal) Comments: <200 [...] Comments: Result: Reviewed Reactive lymphocytes noted. Jesus Vaughn 07/30/06 PLT 370 K/mm3 (Normal) Range: 150-450 [...] WBC 0 SEEN {/hpf} (Normal) Range: 0-5 :55 PFLIP CHOL 170 mg/dL (Normal) Comments: <200 [...] mg/dL VLDL 36 mg/dL (Normal) Range: 5-40 :55 TSH 2.71 {uIU/mL} (Normal) Range: 0.34-4.82 Plan of Care Name Dates Details Instructions GERD (gastroesophageal reflux disease) : GERD Education Indication: GERD (gastroesophageal reflux disease) Cough : Follow up in 4 weeks- general medical and cough fu Indication: Cough Fatigue, unspecified type : *fatigue education Indication: [...] IN 3 MONTHS Indication: Migraine Planned Observations T4, FREE (THYROXINE) (92372)Indication: Thyroid nodule On: Request T3, FREE (TRIDOTHYRONINE) (65566)Indication: Thyroid nodule On: Request TSH (05600)Indication: Thyroid nodule On: Request CBC W/AUTO DIFF WBC (15125)Indication: Mixed hyperlipidemia On: Request METABOLIC PANEL, COMPREHENSIVE (39723)Indication: Mixed hyperlipidemia On: Request LIPOPROTEIN, BLD, BY NMR (05295)Indication: Mixed hyperlipidemia On: Request CALCIFEDIOL (58277)Indication: Vitamin D deficiency, unspecified On: Request C-REACT PROT HIGH SENS(hsCRP) (21085)Indication: Pain in unspecified joint On: Request Sedimentation Rate-ESR (93402)Indication: Pain in unspecified joint On: Request Metabolic Panel, Comprehensive (69665)Indication: Pain in unspecified joint On: Request CBC (Auto) (43675)Indication: Pain in unspecified joint On: 8-Sad-782756:27 Request FECAL OCCULT- Tubes sent home (73269)Indication: Encounter for screening for malignant neoplasm of colon (Renamed from Special screening for malignant neoplasms, colon) On: 0-Wxw-497822:14 Request CBC WITH MANUAL DIFF ([id number])Indication: Abnormal WBC count On: 94-Etd-800111:12 Request METABOLIC PANEL, COMPREHENSIVE (79419)Indication: Mixed hyperlipidemia On: :15 Request CBC W/AUTO DIFF WBC (93430)Indication: Mixed hyperlipidemia On: :15 Request LIPID PANEL (10427)Indication: Mixed hyperlipidemia On: :15 Request TSH (81588)Indication: Anxiety On: :15 Request CALCIFIDIOL (99760) VIT D 25Indication: Vitamin D deficiency, unspecified On: :15 Request CALCIFEDIOL (32687)Indication: Vitamin D deficiency, unspecified On: 20-Sep-20159:12 Request EBV Panel (37762)Indication: Fatigue On: 02-Uer-637002:51 Request SPEP (53213)Indication: Abnormal CBC On: 13-Ddg-593872:43 Request UPEP ([id number])Indication: Abnormal CBC On: 53-Wvu-832727:30 Request serum free light chains (66166)Indication: Abnormal CBC On: 51-Uur-400435:29 Request urine immunofixation (98254)Indication: Abnormal CBC On: 09-Prn-981561:29 Request serum immunofixation (55744)Indication: Abnormal CBC On: 57-Fyy-757906:29 Request LIPID PANEL (16478)Indication: Mixed hyperlipidemia On: 23-Alo-776918:46 Request CALCIFIDIOL (53434) VIT D 25Indication: Vitamin D deficiency, unspecified On: 25-Soo-956184:41 Request METABOLIC PANEL, COMPREHENSIVE (04274)Indication: Mixed hyperlipidemia On: :12 Request LIPID PANEL (49429)Indication: Mixed hyperlipidemia On: 74-Mah-937206:12 Request CBC WITH MANUAL DIFF ([id number])Indication: postmenopausal without estrogen On: :02 Request METABOLIC PANEL, COMPREHENSIVE (68421)Indication: postmenopausal without estrogen On: 18-Uqn-945632:02 Request CALCIFIDIOL (98451) VIT D 25Indication: Vitamin D deficiency, unspecified On: 40-Dei-659839:01 Request CALCIFEDIOL (42975)Indication: Vitamin D deficiency, unspecified On: :26 Request CBC WITH MANUAL DIFF ([id number])Indication: Mixed hyperlipidemia On: :26 Request Metabolic Panel, Comprehensive (03731)Indication: Mixed hyperlipidemia On: :26 Request Lipid Panel ([id number])Indication: Mixed hyperlipidemia On: :26 Request METABOLIC PANEL, COMPREHENSIVE (49911)Indication: Mixed hyperlipidemia On: :47 Request LIPID PANEL (75619)Indication: Mixed hyperlipidemia On: :47 Request CALCIFIDIOL (88655) VIT D 25Indication: Vitamin D deficiency, unspecified On: :47 Request EBV Panel (03957)Indication: Hepatitis On: :38 Request CMV IGM ANTBDY (50203)Indication: Hepatitis On: :38 Request CMV ANTIBODY ([id number])Indication: Hepatitis On: :38 Request CALCIFEDIOL (43134)Indication: Mixed hyperlipidemia On: 61-Cci-871848:56 Request CBC with manual diff ([id number])Indication: Mixed hyperlipidemia On: :56 Request Metabolic Panel, Comprehensive (98444)Indication: Mixed hyperlipidemia On: :56 Request TSH (THYROID STIMULATING HORMONE) (51033)Indication: Mixed hyperlipidemia On: :56 Request LIPID PANEL (43724)Indication: Mixed hyperlipidemia On: 95-Lju-667094:55 Request HEPATIC FUNCTION PANEL (77394)Indication: Mixed hyperlipidemia On: 51-Hsx-008996:55 Request HEPATIC FUNCTION PANEL (26551)Indication: Unspecified Diagnosis On: 56-Rxb-594821:25 Request Rapid Strep Test, Office ([id number])Indication: Pharyngitis, acute On: 57-Ldn-688567:05 Request Metabolic Panel, Comprehensive ([id number])Indication: Epigastric Pain (Renamed from Abdominal pain, epigastric) On: 27-Hpb-491678:24 Request Comments: labs stat. Lipase (69089)Indication: Epigastric Pain (Renamed from Abdominal pain, epigastric) On: 53-Kwm-396999:24 Request Amylase (53262)Indication: Epigastric Pain (Renamed from Abdominal pain, epigastric) On: 73-Voc-525360:24 Request CBC, Platelets & Auto Diff (79607)Indication: Epigastric Pain (Renamed from Abdominal pain, epigastric) On: 32-Jsv-511172:24 Request URINE MICHI CULTURE-IDENTIFICATN (20903)Indication: Hematuria (Renamed from Blood in the urine) On: 38-Opb-692697:23 Request ASM (ANTI SMOOTH MUSCLE ANTIBODY) ([id number])Indication: Abnormal finding of blood chemistry, unspecified On: 41-Dps-701096:26 Request CERULOPLASMIN (71659)Indication: Abnormal finding of blood chemistry, unspecified On: :26 Request FERRITIN ([id number])Indication: Abnormal finding of blood chemistry, unspecified On: 80-Lff-246163:26 Request HEPATIC FUNCTION PANEL ([id number])Indication: Mixed hyperlipidemia On: 69-Sko-712466:47 Request HEPATIC FUNCTION PANEL (08430)Indication: Abnormal finding of blood chemistry, unspecified On: 52-Efu-246339:17 Request Comments: 1 week HEPATIC FUNCTION PANEL (98978)Indication: Migraine On: :26 Request TSH ([id number])Indication: Migraine On: 93-Exx-044179:26 Request HEPATITIS PANEL ([id number])Indication: Abnormal finding of blood chemistry, unspecified On: 21-Ibu-136430:25 Request EBV Panel ([id number])Indication: Abnormal finding of blood chemistry, unspecified On: 00-Ugy-054838:24 Request Vitamin D Hydroxy (77291)Indication: Vitamin D deficiency, unspecified On: 90-Hqg-592404:42 Request CBC WITH MANUAL DIFF ([id number])Indication: Irritable bowel syndrome On: :42 Request METABOLIC PANEL, COMPREHENSIVE ([id number])Indication: Irritable bowel syndrome On: 20-Gia-574307:42 Request LIPID PANEL ([id number])Indication: Mixed hyperlipidemia On: 21-Oum-580489:42 Request CALCIFEDIOL (19108)Indication: Vitamin D deficiency, unspecified On: 90-Fql-67573:06 Request CBC with manual diff (80109)Indication: Mixed hyperlipidemia On: :06 Request Lipid Panel (95574)Indication: Mixed hyperlipidemia On: :06 Request Metabolic Panel, Comprehensive (93739)Indication: Mixed hyperlipidemia On: :06 Request Vitamin D Hydroxy (97169)Indication: Vitamin D deficiency, unspecified On: :17 Request CBC WITH MANUAL DIFF ([id number])Indication: Lung nodule On: :17 Request METABOLIC PANEL, COMPREHENSIVE (14141)Indication: Irritable bowel syndrome On: :17 Request LIPID PANEL ([id number])Indication: Mixed hyperlipidemia On: :07 Request C-REACTIVE PROTEIN (20092)Indication: Chest pain On: :20 Request SED RATE ERYTHROCYTE (42545)Indication: Chest pain On: :20 Request METABOLIC PANEL, COMPREHENSIVE (96758)Indication: Chest pain On: :20 Request CBC WITH MANUAL DIFF (11935)Indication: Chest pain On: :20 Request D-Dimer ([id number])Indication: Chest pain On: :20 Request Comments: stat METABOLIC PANEL, COMPREHENSIVE (30630)Indication: Osteopenia On: 30-Gvq-947256:00 Request TSH ([id number])Indication: Depressive disorder On: 47-Jid-454134:58 Request LIPID PANEL (50475)Indication: Mixed hyperlipidemia On: 88-Ter-666445:57 Request Vitamin D Hydroxy (73094)Indication: Vitamin D deficiency, unspecified On: 02-Zll-772107:57 Request Metabolic Panel, Comprehensive (57726)Indication: Hypopotassemia On: 89-Cfe-853600:58 Request CALCIFEDIOL (18734)Indication: Vitamin D deficiency, unspecified On: :58 Request Lipid Panel ([id number])Indication: Mixed hyperlipidemia On: 60-Nmq-048896:57 Request METABOLIC PANEL, COMPREHENSIVE (85202)Indication: Migraine On: 09-Oad-181890:53 Request LIPID PANEL (80673)Indication: Mixed hyperlipidemia On: 38-Gbb-122659:53 Request Vitamin D Hydroxy (97068)Indication: Vitamin D deficiency, unspecified On: 18-Dwf-623717:53 Request Vitamin D Hydroxy (55685)Indication: Vitamin D deficiency, unspecified On: 63-Fnv-729101:49 Request METABOLIC PANEL, COMPREHENSIVE (48151)Indication: Irritable bowel syndrome On: 11-Dgb-866137:48 Request LIPID PANEL (16848)Indication: Mixed hyperlipidemia On: 99-Egt-037868:48 Request METABOLIC PANEL, COMPREHENSIVE ([id number])Indication: Hypopotassemia On: :56 Request LIPID PANEL (22357)Indication: Mixed hyperlipidemia On: 77-Ssb-467923:56 Request Vitamin D Hydroxy (28755)Indication: Vitamin D deficiency, unspecified On: 64-Psh-964803:56 Request HEPATIC FUNCTION PANEL (76591)Indication: Mixed hyperlipidemia On: :07 Request LIPID PANEL ([id number])Indication: Mixed hyperlipidemia On: 98-Jbh-013703:07 Request URINE MICHI CULTURE-IDENTIFICATN ([id number])Indication: Dysuria On: 8-Ckg-059888:40 Request URINALYSIS W/O MICRO (96961)Indication: Other signs and symptoms in breast On: 25-Jrw-548023:31 Request METABOLIC PANEL, COMPREHENSIVE (86532)Indication: Other signs and symptoms in breast On: 91-Iib-134060:31 Request TSH ([id number])Indication: Other signs and symptoms in breast On: 16-Ewc-891655:31 Request Vitamin D Hydroxy ([id number]) On: 6-Meg-649005:30 Request CBC WITH MANUAL DIFF ([id number]) On: 5-Pcj-734517:30 Request METABOLIC PANEL, COMPREHENSIVE (81428) On: 8-Cwg-374848:30 Request VITAMIN B-12 (CYANOCOBALAMIN) ([id number]) On: 2-Ank-404701:30 Request TSH ([id number]) On: 1-Irt-677882:30 Request Metabolic Panel, Basic (74814) On: :21 Request HEPATIC FUNCTION PANEL (21694)Indication: Mixed hyperlipidemia On: 45-Tms-154538:21 Request LIPID PANEL (48595)Indication: Mixed hyperlipidemia On: 63-Hqt-511449:21 Request METABOLIC PANEL, COMPREHENSIVE (60175)Indication: Hypoglycemia On: 61-Mty-748904:51 Request LIPID PANEL ([id number])Indication: Low HDL (under 40) On: 53-Gyk-163045:45 Request Glucose, PP/2 Hour (35257)Indication: Fatigue On: : Request VITAMIN B-12 (CYANOCOBALAMIN) (85746)Indication: Fatigue On: : Request URINALYSIS W/O MICRO ([id number])Indication: Fatigue On: : Request TSH (40989)Indication: Fatigue On: : Request CBC WITH MANUAL DIFF (21094)Indication: Fatigue On: : Request METABOLIC PANEL, COMPREHENSIVE (60565)Indication: Fatigue On: : Request BIBIANA (ANTINUCLEAR ANTIBODY) (74340)Indication: Pain in unspecified joint On: Request C-REACTIVE PROTEIN ([id number])Indication: Pain in unspecified joint On: :28 Request CBC WITH MANUAL DIFF ([id number])Indication: Pain in unspecified joint On: : Request METABOLIC PANEL, COMPREHENSIVE (71147)Indication: Pain in unspecified joint On: :28 Request RHEUMATOID FACTOR-QUANT (08939)Indication: Pain in unspecified joint On: :28 Request SED RATE ERYTHROCYTE (92572)Indication: Pain in unspecified joint On: :28 Request TSH ([id number])Indication: Pain in unspecified joint On: :28 Request METABOLIC PANEL, COMPREHENSIVE ([id number])Indication: Low HDL (under 40) On: :26 Request LIPID PANEL (97124)Indication: Low HDL (under 40) On: 6-Hwv-414887:26 Request LIPID PANEL (73726)Indication: Low HDL (under 40) On: :41 Request HEPATIC FUNCTION PANEL ([id number])Indication: Low HDL (under 40) On: 90-Zoy-356383:41 Request Comments: 4 mos LIPID PANEL ([id number])Indication: Low HDL (under 40) On: 23-Ifm-639234:26 Request Comments: 3 mos HEPATIC FUNCTION PANEL ([id number])Indication: Low HDL (under 40) On: 40-Cll-602802:26 Request Comments: 3 mos Planned Procedures CXR PA & LAT ([id number])By: Nii ABREU, On: 07-Jul-2018 Intent Rylee Nelson DO Flu Vaccine (Quadrivalent) 53188Yp: On: 27-May-2018 Intent Rylee Bales DO DO, Comments: Lot #[id number]-L dltd, IMDose prefilled syringegiven by: Nohemy reviewed and ABN signed Rylee Wax CurettesBy: Rylee Bales DO On: 12-Feb-2018 Intent Rylee Bales DO Ear Irrigation (75130)By: Nii On: 12-Feb-2018 Intent Rylee ABREU DO, Kathleen Comments: small amount of yellow was irrigated out of right ear, patient tolerated without difficulty ear wax currette used to remove remainder of wax X-RAY OF SHOULDER, TWO VIEWS On: 12-Feb-2018 Intent (23226)By: Rylee Bales DO, DO, Kathleen ELECTROCARDIOGRAM, COMPLETE (ECG) On: 12-Feb-2018 Intent (14875)By: Rylee Bales DO, DO, Kathleen Ultrasound - ThyroidBy: Nii ABREU, On: 30-Jan-2018 Intent Rylee Nelson DO Wax CurettesBy: Dasia Oliver On: 12-Sep-2017 Intent Ear Irrigation (33610)By: Benito, On: 12-Sep-2017 Intent Dasia X-RAY OF HAND, THREE VIEWS On: 16-Aug-2017 Intent ([id number])By: Rylee Bales DO, DO, Kathleen Radiology - Abdomen SeriesBy: On: 02-Jul-2017 Intent Rylee Bales DO, DO, Comments: FLAT PLATE Rylee ACUTE ABDOMINAL SERIES ([id number])By: On: 27-Jun-2017 Intent Rylee Bales DO, DO, Kathleen Flu Vaccine (Quadrivalent) 22005Tm: On: 28-May-2017 Intent Rylee Bales DO, DO, Comments: lot: [id number]: 01/06/18ite/route: L freddy, IMamt: 0.5mlVIS and ABN signed when applicableChelsea, HVAC SERVICE TECH Rylee SCREENING DIGITAL TOMOSYNTHESIS OF On: 28-May-2017 Intent BREAST ([id number])By: Rylee Bales DO, DO Rylee THYROID ULTRASOUND (57652)By: On: 02-Jan-2017 Intent Sherrell Bales DOhleen Nii DO, Rylee Doppler Ultrasound OtherBy: Nii On: 15-Aug-2016 Intent Rylee ABREUon DO Rylee Comments: left lower extremity PNEUM VAC ADLT/IMUMNOSPR, SBC/INTRM On: 07-May-2016 Intent (55383)By: Rylee Bales DO Comments: Lot:[id number]:11/24/17Dose:0.5mgRoute:imSite:r arm Given By:DORIS signed Rylee Bales DO DEXA SCAN AXIAL SKELETON ([id number])By: On: 25-Apr-2016 Intent Rylee Bales DO, DO, Kathleen MAMMOGRAM, SCREENING, BOTH BREAST On: 25-Apr-2016 Intent ([id number])By: Rylee Bales DO, DO, Kathleen Flu Vaccine (Quadrivalent) 21277Yb: On: 25-Apr-2016 Intent Hung Santos Comments: FLUlot: [id number]:01/05site:Lt deltoidroute:IMdose:.5mlDEMICK, MA DEXA SCAN AXIAL SKELETON (08391)By: On: 01-Mar-2016 Intent Rylee Bales DO, DO, Kathleen Radiology - ChestBy: Ilsa PROPERTY SUPERVISOR, On: 13-Jun-2015 Intent Marlen Phillips Flu Vaccine (Quadrivalent) 79414Uj: On: 27-Apr-2015 Intent Manda Higginbotham MD Comments: Lot:[id number]:01/19/16Dose:0.5mLRoute:IMSite:L DltdGiven By:DORIS signed MAMMOGRAM, SCREENING, BOTH BREAST On: 15-Mar-2015 Intent (77298)By: Manda Higginbotham MD ELECTROCARDIOGRAM, COMPLETE (ECG) On: 30-Dec-2014 Intent (31525)By: Rylee Bales DO Comments: nsr no acute chg Nii ABREU Rylee Prevnar 13 (84670)By: Anahy KRISHNAN, On: 03-Aug-2014 Intent Manda Torres SPECIMEN HANDLING/TRANSPORT On: 14-Jun-2014 Intent ([id number])By: Marlen Rosenbaum CNP IMMUNIZ ADMNIN, 1 VAC, SNGL/COMBO On: 03-May-2014 Intent (92093)By: Joey, FLU VAC, SPLIT, >3 YEARS, INTRAMUSC On: 03-May-2014 Intent (73689)By: Manda Higginbotham MD Comments: Lot:[id number]:01/18/15Dose:0.5mLRoute:IMSite:L DltdGiven By:DORIS signed MAMMOGRAM, SCREENING, BOTH BREAST On: 09-Feb-2014 Intent (31747)By: Manda Higginbotham MD Comments: due 07-04 DEXA SCAN AXIAL SKELETON (23590)By: On: 09-Feb-2014 Intent Manda Higginbotham MD Comments: due 07-04 Eprescribed prescriptions On: 19-Nov-2013 Intent (G8553)By: Rylee Bales DO, DO, Kathleen Eprescribed prescriptions On: 02-Sep-2013 Intent (G8553)By: Marlen Rosenbaum CNP VAC, SPLIT, >3 YEARS, INTRAMUSC On: 26-May-2013 Intent (54092)By: Manda Higginbotham MD Comments: Lot:[id number]:Dose:0.5mLRoute:IMSite:L DltdGiven By:DORIS signed IMMUNIZ ADMNIN, 1 VAC, SNGL/COMBO On: 26-May-2013 Intent (22227)By: Francesca Crystal MAMMOGRAM, SCREENING, BOTH BREASTS On: 14-May-2013 Intent (46075)By: Manda Higginbotham MD Eprescribed prescriptions On: 30-Dec-2012 Intent (G8553)By: Alaina Patricia LPN Ultrasound - LiverBy: Miguel ABREU, On: 10-Dec-[address] - ChestBy: Miguel DO Iwona A On: 09-Dec-2012 Intent Comments: december Eprescribed prescriptions On: 09-Dec-2012 Intent (G8553)By: Zabrina Farmer Eprescribed prescriptions On: 01-Aug-2012 Intent (G8553)By: Zabrina Farmer EKG (48851)By: Zabrina Farmer On: 10-Jun-2012 Intent Comments: ekg showed normal sinus rhythym, normal axis, no acute st/t wave changes Eprescribed prescriptions On: 10-Jun-2012 Intent (G8553)By: Hailey Rivera DOa A DXA, BONE DENSITY, AXIAL SKELETON On: 10-Jun-2012 Intent ([id number])By: Miguel ABREU Iwona A CT - ChestBy: Miguel DO Iwona A On: 10-Jun-2012 Intent Eprescribed prescriptions On: 10-Jun-2012 Intent (G8553)By: Zabrina Farmer Breast Screening - BilateralBy: On: 02-Jun-2012 Intent Iwona Rivera DO A TDAP VACCINE >7 IM (01325)By: On: 04-Dec-2011 Intent Zabrina Farmer Comments: lot [id number] 06/02, L arm IM, perfileld Alaina CT - ChestBy: Hailey Rivera DOa A On: 04-Dec-2011 Intent FLU VAC, SPLIT, >3 YEARS, INTRAMUSC On: 29-May-2011 Intent (31823)By: Zabrina Farmer Comments: Lot: [id number]: 01/19/12Site: Lt DeltoidDose: Prefilled DoseARiding, EXTRACTOR OPERATOR HELPER CT - ChestBy: Miguel ABREU Iwona A On: 29-May-2011 Intent IMMUNIZ ADMNIN, 1 VAC, SNGL/COMBO On: 29-May-2011 Intent (83285)By: Zabrina Farmer Pulse Oximetry (27260)By: Miguel ABREU, On: 16-Feb-2011 Intent Iwona A Comments: 99 CT - ChestBy: Miguel ABREU Iwona A On: 16-Feb-2011 Intent Comments: stat-pe protocol- call wet read Radiology - ChestBy: Ilsa SELLERS, On: 06-Feb-2011 Intent Isabel Dllbazryx-Jry-Yldxq (56709)By: On: 06-Feb-2011 Intent Marlen Rosenbaum CNP Eprescribed prescriptions On: 03-Jan-2011 Intent (G8553)By: Iwona Rivera DO EKG (32716)By: Manda Higginbotham MD On: 15-Dec-2010 Intent Eprescribed prescriptions On: 17-Nov-2010 Intent (G8553)By: Iwona Rivera DO MAMMOGRAM, SCREENING, BOTH BREASTS On: 06-Mar-2010 Intent (65439)By: Iwona Rivera DO DXA, BONE DENSITY, AXIAL SKELETON On: 06-Mar-2010 Intent (72563)By: Iwona Rivera DO CT - Abdomen & PelvisBy: Miguel ABREU, On: 22-Aug-2009 Intent Iwona Cevalols PNEUM VAC ADLT/IMUMNOSPR, SBC/INTRM On: 22-Apr-2009 Intent (30638)By: Samantha Kumar RN IMMUNIZ ADMNIN, 1 VAC, SNGL/COMBO On: 22-Apr-2009 Intent (32543)By: Samantha Kumar RN Comments: Lot #: [id number] date: mo given: 0.5 mlRoute: IMSite given: right deltoidGiven by: Ban Salas LPN IMMUNIZ ADMNIN, 1 VAC, SNGL/COMBO On: 22-Apr-2009 Intent (43657)By: Samantha Kumar RN FLU VAC, SPLIT, >3 YEARS, INTRAMUSC On: 22-Apr-2009 Intent (11252)By: Samantha Kumar RN Comments: Lot #: [id number] date: mount given: 0.5 mlRoute: IMSite given: left deltoidGiven by: Ban Salas LPN Pulse Oximetry (66269)By: Wai On: 15-Apr-[address] - Brain/HeadBy: Iwona Rivera DO On: 19-Nov-2008 Intent Radiology - ChestBy: Ilsa SELLERS, On: 14-Oct-2008 Intent Marlen Phillips Pulse Oximetry (54971)By: Ilsa On: 14-Oct-2008 Intent Marlen SELLERS Comments: done BC Aerosol Treatment (67790)By: Ilsa On: 14-Oct-2008 Intent Marlen SELLERS Comments: done BC Spirometry (05080)By: Darian, On: 12-Oct-2008 Intent Zabrina Comments: good effort and curve normal MAMMOGRAM, SCREENING, BOTH BREASTS On: 06-Oct-2008 Intent ([id number])By: Iwona Rivera DO Aerosol Treatment (11750)By: Ilsa On: 08-Sep-2008 Intent MARLOMarlen Pulse Oximetry (05812)By: Ilsa On: 08-Sep-2008 Intent Marlen SELLERS EKG (36692)By: Rylee Bales DO On: 02-Jul-2008 Intent Rylee Bales DO Comments: nsr nothing acute-- v1-v1 lead placement(female) FLU VAC, SPLIT, >3 YEARS, INTRAMUSC On: 11-Jun-2008 Intent (14712)By: Zabrina Farmer Comments: inj given left deltoid no complicationslot:[id number]:12/28 IMMUNIZ ADMNIN, 1 VAC, SNGL/COMBO On: 11-Jun-2008 Intent (00971)By: Zabrina Farmer EKG (11943)By: Iwona Rivera DO On: 22-Dec-2007 Intent Comments: ekg showed normal sinus rhythym, normal axis, no acute st/t wave changes MAMMOGRAM, SCREENING, BOTH BREASTS On: 25-Aug-2007 Intent (64636)By: Iwona Rivera DO IMMUNIZ ADMNIN, 1 VAC, SNGL/COMBO On: 23-May-2007 Intent (22249)By: Iwona Rivera DO FLU VAC, SPLIT, >3 YEARS, INTRAMUSC On: 23-May-2007 Intent (60542)By: Iwona Rivera DO Comments: given 0.5cc im in left deltoid lot#[id number] exp. Instructions Name Dates Details Nonsmoker : How [...] Instructions Indication: Anxiety Encounters Office Visit On: 07-Jul-2018 10:09 Encounter Reason: Cough - No changes in management were made at the last visit. Symptoms include cough, while symptoms do not include wheezing. The cough is described as dry. Cough onset was sudden month(s) ago. There is End: 07-Jul-2018 11:27 no known event that preceded symptom onset. The cough occurs constantly. 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 The patient has noticed staying at home rather than doing something new or going out and lack of energy (thinks it is from the lupus). Other providers contributing to the patient's care are compo conveyor operator (dr. chavez), urologist (dr. bhatti) and ot her: (boiler shop supervisor dr. beaulieu). Note for Annual Medicare Exam: [...] coming down grand stands for concert at [facility] . Rec End: 30-Dec-2014 10:10 ent symptoms do [...] history includes nonsteroidal anti-inflammatory drug use (h ave been taking aleve for the pain ), [...] and did breast exam-- had lump saw Ava- and he couldnt find it - so they refferred her to doctor at [facility] and workup was neg, [ADDITIONAL REASON] Follow [...] 6 (Saturday is my first day of prison so I will be getting more) hours per night. The medical issues the patient is following up for include other (rib pain on R side). Note for Follow up acute care visit: went to [place]- drove 500 miles - no leg pain [...] loss, ddd, ibs). weight :. Note for Follo w up for chronic medical issues: she [...] on welbutrin for mood- she saw Lorena oritz and she wanted her to see Yuko [...] work-- cousin who is 2 years older arslan strickland has some memory issues-- not close with [...] amyt riptyline for sleep -- she saw Frannyilia and sleep study is normal-- her schedule [...] Follow up for chronic medical issues: am itzia some help but still issues with her [...] for Follow up for chronic medical issues: darcient tolerate topamax- made her constipated- getting tension [...] left wrist- get xray- if neg to [facility], DEPRESSIVE DISORDER, NOT ELSEWHERE CLASSIFIED (311.) Comprehensive [...] low salt diet. The medical issues the richie wagner is following up for include depression ,gastric reflux and other (migraine). weight :. Note for Follow up for chronic medical issues: no gerd and feeling well - still getting 3 migranes a week- refractory manager feels it is whether change and allergies- [...] current emotional problems. [facility] Payers MedicareR[facility]/Supplement Fabricio Torres; ban guarantor
--- OUTSIDE RECORDS SUMMARY | 2018-10-09 01:40 | XMS RPT_ITS | Continuity of Care Document ---
:1950 Author Organization [facility] Address [address] [facility] [address] [place] [address] Phone Care Team Providers Name Role Phone Rylee Bales DO Unavailable Jonas KRISHNAN, Fadumo Porter Unavailable Dr. Joaquim Hough Unavailable Deuce Soto Unavailable Herb KRISHNAN, Jj Phillips Unavailable Merari Lam Unavailable [facility], [facility] Unavailable ISHMAEL Arana Unavailable Unavailable Binta Cruz [...] 714.9) Comments: see Dr. deutsch. plaquenil helps [employer] elevated. from Lupus. get eye exam and [...] 25 MCG/ACT (0.025%) Nasal Solution 1 (one) Means Means each nostril qd for 0 days Quantity: 1 {Means} Refills: 2 Ordered:12-Feb-2018 Dasia Arana LPN Start [...] Nasonex 50 MCG/ACT Nasal Suspension 1 (one) Means qd each nostril for 0 days Quantity: [...] discontinued per [facility]. CALCIUM 500 + D, [id number] (PO Tab) 2 tabs qd for 0 [...] order discontinued per [facility]. VITAMIN D (ERGOCALCIFEROL), [id number] (Oral Capsule) 1 (one) Capsule Capsule once [...] Summary (1) Result: Comments: See Note; NOTES: [facility] 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 Still avoid pulling weeds and heavy lifting [...] please feel free to call me at [phone]. Thank you for the referral of this patient. Sincerel y, Mitch Leonard DPT, OC <Electronically signed by Mitch Leonard DPT, CÉSAR, CSCS> 03/20/18 0932 CC: Rylee Bales DO EBG Signed 04-Mar-2018 Re-Evaluation - PT (1) Result: Comments: See Note; NOTES: [facility] [address] [facility] [address] [address] [facility] [place], [place] [address] Fax [facility]VALU[facility] MR#: [id number] Acct: [id number] Name: SUSANNE TORRES Rep #: [id number] : 1950 68 From: Mitch Leonard DPT, [...] the blue while I was sitting at [employer]on[employer] my shldr just starting hurting worse. Reports the pain to be located in the front and under the shldr joint. Objective/Function: Review of postural maintainence so as to not exacerbate symptoms while sitting at [employer]. Pt states, I guess I wasn't really paying a ttention to how I was sitting. Minimal progression today in reps of current exc, however able to tolerate newly added shldr flexion and ABD exc with wts against gravity. While working on [employer], pt tripped on lower portion of machine [...] do not hesitate to contact me at [phone] by phone or if you have questions or concerns regarding this new plan of care! Sincerely, Mitch Leonard DPT, OC <Electronically signed by Mitch Leonard DPT, OCS, CSCS> 0 03/04/18 0939 CC: Rylee Bales DO EBG Signed For Medicare only, by signing this I certify the plan of care. Physicians Signature Date 19-Feb-2018 Inital Evaluation (1) - PT Result: Comments: See Note; NOTES: [facility] [address] [place], [place] [id number] Fax REHABILITATION SERVICES INITIAL EVALUATION MR#: [id number] Acct: [id number] Name: SUSANNE TORRES Rep #: [id number] : 1950 68 From: Mitch Leonard DPT, [...] to be FAXED BACK to us at [phone] for Medicare purposes. Please let me know if there are questions or concerns regarding this plan of care. Physician Signature: Date: <Electronically signed by Mitch Leonard DPT, OCS, CSCS> 02/19/18 0722 CC: Rylee Bales DO EBG Signed For Me dicare only, by signing this I certify the plan of care. Physicians Signature Date 13-Feb-2018 Shoulder min 2 Views Result: Comments: See Note; NOTES: [facility] Imaging Services [address] [place] [address] Shoulder min 2 Views MR#: [id number] Acct: [id number] Name: SUSANNE TORRES Rep #: [id number] : 1950 F 68 From: Hector Oliveira MD PCP: Rylee Bales DO Status: REG CLI Study: Shoulder min 2 Views Date of Exam: 02/13/18 Exam# [id number] Ordering Dr: Rylee Bales DO STUDY: X-R [...] Service support , CC: Rylee Bales DO Working Manager: Signed 04-Feb-2018 Thyroid Result: Comments: See Note; NOTES: [facility] Imaging Services [address] [place] [address] Thyroid MR#: [id number] Acct: [id number] Name: SUSANNE TORRES Rep #: [id number] : 0 1950 F 68 From: Bayron Payan MD PCP: Rylee Bales DO Status: REG CLI Study: Thyroid Date of Exam: 02/04/18 Exam# [id number] Ordering Dr: Rylee Bales DO STUDY: THYROID [...] Bayron Payan MD at 10:35 EDT Tel [phone], Service support , CC: Rylee Bales DO Working Manager: Signed 16-Oct-2017 PT D/C Summary (1) Result: Comments: See Note; NOTES: [facility] [address] [place] [address] Fax REHABILITATION SERVICES DISCHAR GE SUMMARY MR#: [id number] Acct: [id number] Name: SUSANNE TORRES Rep #: [id number] : 1950 67 From: Martín Arteaga DPT [...] please feel free to call me at [phone]. Thank you for the referral of this patient. 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 Medications New: Coding Level of Care Code Off vis,est,level 4 Diagnoses Cellulitis of other specified site L03.818 Site of cell ulitis: other site 10/12/17 1020 <Electronically signed by Lillian FLORES> Date Lillian FLORES Cosigner Signatur e: Date (if applicable) CC: 24-Sep-2017 PT Communication Result: Comments: See Note; NOTES: [facility] [address] [place] [address]. [address] [place] [address] Fax REHABILITATION SERVICES PROGRES S NOTE MR#: [id number] Acct: [id number] Name: SUSANNE TORRES Rep #: [id number] [...] - PT Result: Comments: See Note; NOTES: [facility] [address] [place] [address]. [address] [place] [address] Fax REHABILITATION SERVICES INITIAL EVALUATION MR#: [id number] Acct: [id number] Name: SUSANNE TORRES Rep #: [id number] : 1950 67 From: Martín Arteaga DPT [...] Response: No effect Lumbar Standing: Right Side [place] - Symptoms During Testing: No e ffect Lumbar Standing: Right Side [place] - Symptoms After Testing: No effect Lumbar Standing: Left Side [place] - Mechanical Response: No effect Lumbar Standing: Left Side [place] - Symptoms During Testing: No effect Lumbar Standing: Left Side [place] - Symptoms After Testing: No effect - [...] to be FAXED BACK to us at [phone] for Medicare purposes. Please let me know if there are questions or concerns regarding this plan of care. Physician Signature: Date: <Electronically signed by Martín Arteaga DPT> 09/18/17 1910 CC: Rylee Bales DO CLS Signed For Medicare only, by signing this I certify the plan of care. Physicians Signature Date 16-Aug-2017 Hand Min 3 Views Result: Comments: See Note; NOTES: [facility] Imaging Services [address] [place] [address] Hand Min 3 Views MR#: [id number] Acct: [id number] Name: SUSANNE TORRES Rep #: [id number] : 1950 F 67 From: Bayron Payan MD PCP: Rylee Bales DO Status: REG CLI Study: Hand Min 3 Views Date of Exam: 08/16/17 Exam# [id number] Ordering Dr: Rylee Bales DO STUDY: X-RA [...] Bayron Payan MD at 13:43 EST Tel [phone], Service support , CC: Rylee Bales DO Working Manager: Signed 25-Jul-2017 SCREENING MAMM (CAD), BILAT Result: Comments: See Note; NOTES: [facility] Imaging Services [address] [place] [address] SCREENING MAMM (CAD), BILAT MR#: [id number] Acct: [id number] Name: SUSANNE TORRES Rep #: [id number] : 1950 F 67 From: Bayron Payan MD PCP: Rylee Bales DO Status: [facility] Study: SCREENING MAMM (CAD), BILAT Date of Exam: 07/25/17 Exam# [id number] Ordering Dr: Sherrell Bales DO MAMMOGRAPHY - [...] delay biopsy of a clinically suspicious abnormality. [id number] Electronically Signed: Bayron Payan MD at 14:18 EST Tel [phone], Service support , CC: Rylee Bales DO Working Manager: Signed 03-Jul-2017 Urgent Care Visit Report Result: Comments: See Note; NOTES: [facility] [address] [place] [address] OFFICE VISIT Date of Service: 07/03/17 MR#: [id number] Acct: [id number] Name: SUSANNE TORRES Rep #: [id number] : 1950 Provider: Matt FLORES Age/Sex: 67/F Location[place] [facility] Status: Signed Intake Vital Signs07/03/17 Height 5 [...] (Cipro) administer within 120 minutes prior to [id number] mg PO BID 7 days ical incision Additional Comments UA dip = mod blood, mo d leukocytes. Cipro as prescribed today (per pt preference). Appropriate hygiene reinforced. Follow-up with PCP or proration clerk 2-3 days should symptoms not improved, sooner should symptoms worsen or an y other concerns develop. Patient states acknowledging understanding of the above. Coding Level of Care Code Off vis,new,level 3 Diagnoses Urinary tract infection N39.0 07/03/17 1524 <Elect ronically signed by Matt FLORES> Date Matt Melo Signature: Date (if applicable) CC: 03-Jul-2017 Acute Abdomen Inc Chest Result: Comments: See Note; NOTES: [facility] Imaging Services [address] [place] [address] Acute Abdomen Inc Chest MR#: [id number] Acct: [id number] Name: SUSANNE TORRES Rep #: [id number] : 1950 F 67 From: Ross Javier DO PCP: Rylee Bales DO Status: REG CLI Study: Acute Abdomen Inc Chest Date of Exam: 07/03/17 Exam# [id number] Ordering Dr: Rylee Bales DO STUD Y: [...] Ross Javier DO at 11:58 EST Tel [phone], Serv ice support , CC: Rylee Bales DO Working Manager: Signed 02-Jul-2017 Abd Inc Decub and/or Erect Result: Comments: See Note; NOTES: [facility] Imaging Services [address] [place] [address] Abd Inc Decub and/or Erect MR#: [id number] Acct: [id number] Name: SUSANNE TORRES Rep #: [id number] : 1950 F 67 From: Ross Javier DO PCP: Rylee Bales DO Status: REG CLI Study: Abd Inc Decub and/or Erect Date of Exam: 07/02/17 Exam# [id number] Ordering Dr: Rylee Bales DO STUDY: X-RAY [...] Ross Javier DO at 11:35 EST Tel [phone], Service support , Fax CC: Rylee Bales DO Working Manager: Signed 03-Jan-2017 Thyroid Result: Comments: See Note; NOTES: [facility] Imaging Services [address] [place] [address] Verdana 4d Thyroid MR#: [id number] Acct: [id number] Name: SUSANNE TORRES Rep #: [id number] : 1950 F 66 From: Roselia Huerta MD PCP: Rylee Bales DO Status: REG CLI Study: Thyroid Date of Exam: 01/03/17 Exam# [id number] Ordering Dr: Rylee Bales DO STUDY: THYROID [...] Service support , CC: Rylee Bales DO Working Manager: Signed 15-Aug-2016 Venous Duplex Lower Extremity Result: Comments: See Note; NOTES: [facility] Cardiovascular Services [address] [place] [address] Venous Duplex US, Unilateral 08/15/16 1054 MR#: [id number] Acct: [id number] Name: SUSANNE COLMENARES Rep #: [id number] : 1950 66 From: Bradford Crowe MD [...] Dictated: 08/15/16 1054 Date Transcribed: 08/15/16 1228 Working Manager: Signed 24-Jul-2016 SCREENING MAMM (CAD), BILAT Result: Comments: See Note; NOTES: [facility] Imaging Services [address] [place] [address] Verdana 4d SCREENING MAMM (CAD), BILAT MR#: [id number] Acct: [id number] Name: MARYANA TORRES Rep #: [id number] : 1950 F 66 From: Ross Javier DO PCP: Rylee Bales DO Status: REG CLI Study: SCREENING MAMM (CAD), BILAT Date of Exam: 07/24/16 Exam# [id number] Ordering Dr: Rylee Bales DO MAMMOGRAPHY - [...] delay biopsy of a clinically suspicious abnormality. [id number] Electronically Signed: Ross Javier DO at 16:06 EST Tel [phone], Service support [phone], CC: Rylee Bales DO Working Manager: Signed 17-Jul-2016 DXA BONE DENS W/VERT FX ASMT Result: Comments: See Note; NOTES: [facility] Imaging Services [address] [place] [address] Verdana 4d DXA BONE DENS W/VERT FX ASMT MR#: [id number] Acct: [id number] Name: Vincent TORRES Rep #: [id number] : 1950 F 66 From: Bayron Payan MD PCP: Rylee Bales DO Status: REG CLI Study: DXA BONE DENS W/VERT FX ASMT Date of Exam: 07/17/16 Exam# [id number] Ordering Dr : Rylee Bales DO STUDY: [...] Bayron Payan MD at 14:09 EST Tel [phone], Service support [phone], CC: Rylee Bales DO Working Manager: Signed 01-Mar-2016 ELECTROCARDIOGRAM, COMPLETE (ECG) ([id number]) Comments: sinus beverly no acute chg Result: [MEASUREMENTS ANALYSIS] Date of Test: 03/01/2016 13:45:12; Heart Rate: 59; RI Interval: 154; QRS: 92; QT Interval: 426; Corrected QT Interval (QTc): 425; P Wave [place]: 33; QRS Wave [place]: 33; T Wave [place]: 90; Blood Pressure: 120/78 [ECG DIAGNOSTIC STATEMENTS] Date of Test: 03/01/2016 13:45:12; Summary: Sinus Bradycardia - Nonspecific T-abnormality. ABNORMAL 01-Nov-2015 Lumbar Spine 2 or 3 Views Result: Comments: See Note; NOTES: [facility] Imaging Services [address] [place] [address] Verda 4d Lumbar Spine 2 or 3 Views MR#: [id number] Acct: [id number] Name: SUSANNE COLMENARES Rep #: [id number] : 1950 F 65 From: Bayron Payan MD PCP: Manda Higginbotham MD Status: REG CLI Study: Lumbar Spine 2 or 3 Views Date of Exam: 11/01/15 Exam# [id number] [facility] Dr: Ryan Ortiz MD STUDY: X-RAY - [...] Bayron Payan MD at 10:21 EDT Tel [phone], Service support [phone], RAD/Lumbar Spine 2 or 3 Views IMPRESSION: Degenerative changes of the spine, as detai led above. Electronically Signed: Bayron Payan MD at 10:21 EDT Tel [phone], Service support [phone], CC: Ryan Ortiz MD; Manda Higginbotham MD Working Manager: Signed 13-Oct-2015 Spine Cervical (Routine) Result: Comments: See Note; NOTES: [facility] Imaging Services [address] [place] [address] 4d Spine Cervical (Routine) MR#: [id number] Acct: [id number] Name: SUSANNE KATE Rep #: [id number] : 1950 F 65 From: Tavo Perez MD PCP: Manda Higginbotham MD Status: REG CLI Study: Spine Cervical (Routine) Date of Exam: 10/13/15 Exam# [id number] Ordering Dr: Ryan Ortiz MD STUDY: MRI [...] at 19:04 EDT Tel , Service support [phone], CC: Ryan Ortiz MD; Manda Higginbotham MD Working Manager: Signed 19-Jul-2015 Bilat Scrn Digital AND CAD Result: Comments: See Note; NOTES: [facility] Imaging Services [address] [place] [address] Verdana 4d Bilat Scrn Digital AND CAD MR#: [id number] Acct: [id number] Name: SUSANNE TORRES Rep #: [id number] : 1950 F 65 From: Hector Oliveira MD PCP: Manda Higginbotham MD Status: REG CLI Study: Bilat Scrn Digital AND CAD Date of Exam: 07/19/15 Exam# [id number] Ordering Dr: Manda Higginbotham MD MAMMOGRAPHY - [...] delay biopsy of a clinically suspicious abnormality. [id number] Electronically Signed: Luis Eduardo Oliveira MD at 15:55 EST Te l , Service support [phone], CC: Manda Higginbotham MD Working Manager: Signed 12-Jul-2015 PT D/C of Non Returning Pt. Result: Comments: See Note; NOTES: [facility] [facility] [address] [place] [address] Fax REHABILITATION SE RVICES DISCHARGE SUMMARY MR#: [id number] Acct: [id number] Name: SUSANNE TORRES Rep #: [id number] : 1950 65 From: Tatiana Wagner Referring [...] and Lateral Result: Comments: See Note; NOTES: [facility] Imaging Services [address] [place] [address] Verdana 4d Chest PA and Lateral MR#: [id number] Acct: [id number] Name: SUSANNE PADILLA Rep #: [id number] : 1950 F 65 From: Bayron Payan MD PCP: Manda Higginbotham MD Status: REG CLI Study: Chest PA and Lateral Date of Exam: 06/13/15 Exam# [id number] Ordering Dr: Marlen Rosenbaum STUDY: X-RAY CHEST [...] Bayron Payan MD at 14:40 EST Tel [phone], Service support [phone], 0079 RAD/Chest PA and Lateral IMPRESSION: No acute abnormality is seen. Electronically Signed: Bayron Payan MD at 14:40 EST Tel [phone], Service support [phone], CC: Marlen Rosenbaum; Manda Higginbotham MD Working Manager: Signed 14-May-2015 Operative Report Result: Comments: See Note; NOTES: [facility] Medical Records Department [facility] [place] [address] Operative Report MR#: [id number] Acct: [id number] Name: MARYANA TORRES Rep #: [id number] : 1950 65 From: Deion Gomez MD PCP: Manda Higginbotham MD Status: [facility] DATE OF SERVICE: 05/13/2015 DATE OF SERVICE: [...] get a guidewire past this, then, a 12-Cambodian ureteral balloon dilator and the distal ureter [...] condition. Deion Gomez MD T: NTS JOB: [id number] 05/14/15 1121 <Electronically si gned by Deion Gomez MD> Date Deion Gomez MD Cosigner Signature (If Indicated): Date CC: Manda Higginbotham MD; Deion Gomez MD Date Dictated: 05/13/151357 Date Transcribed: 05/13/151357 Working Manager: Signed 13-May-2015 Discharge Instruction Result: Comments: See Note; NOTES: [facility] Medical Records Department [address] [place] [address] Instructions for Home/Discharge Instructions 05/13/15 1400 MR#: [id number] Acct: [id number] Name: SUSANNE TORRES Rep #: [id number] : 1950 65 From: Deion Gomez MD PCP: Manda Higginbotham MD Status: REG [facility] Discharge Diet: No Restrictions Discharge Activ ity: [...] APPT IN FEW WKS, TO PAGE 05/13/15 7857 <Electronically signed by Deion Gomez MD> Date Deion Gomez MD CC: Manda Higginbotham MD 12-May-2015 Abdomen Single View Result: Comments: See Note; NOTES: [facility] Imaging Services [address] [place] [address] Verdana 4d Abdomen Single View MR#: [id number] Acct: [id number] Name: SUSANNE RAMIREZ Rep #: [id number] : 1950 F 65 From: Jack Calderon MD PCP: Manda Higginbotham MD Status: REG CLI Study: Abdomen Single View Date of Exam: 05/12/15 Exam# [id number] Ordering Dr: Deion Hernandez MD STUDY: X-RAY [...] Jack Calderon MD at 23:58 EDT Tel [phone], Service support [phone], RAD/Abdomen Single View IM PRESSION: 5 mm left renal stone. Electronically Signed: Jack Calderon MD at 23:58 EDT Tel [phone], Service support [phone], CC: Manda Higginbotham MD; Deion Gomez MD Working Manager: Signed 02-May-2015 Abdomen Single View Result: Comments: See Note; NOTES: [facility] Imaging Services [address] [place] [address] Radiology Report MR#: [id number] Acct: [id number] Name: SUSANNE TORRES Re p #: [id number] : 1950 F 65 From: Hecotr Cervantes MD PCP: Manda Higginbotham MD Status: REG CLI Study: Abdomen Single View Date of Exam: 05/02/15 Exam# [id number] Ordering Dr: Deion Gomez MD STUDY: X-RAY [...] MD at 16:59 EDT , Service support [phone], RAD/Abdomen Sing le View IMPRESSION: 1. 5 [...] MD at 16:59 EDT , Service support [phone], CC: Manda Higginbotham MD; Deion Gomez MD Working Manager: Signed 29-Mar-2015 Extremity Lower without Contra Result: Comments: See Note; NOTES: [facility] Imaging Services [address] [place] [place] [address] CAT Scan Report MR#: [id number] Acct: [id number] Name: SUSANNE TORRES Rep #: [id number] : 1950 F 65 From: Roselia Huerta MD PCP: Manda Higginbotham MD Status: REG CLI Study: Extremity Lower without Contra Date of Exam: 03/29/15 Exam# [id number] Ordering Dr: Chirag Lee DPM STUDY: CT [...] at 13:47 EDT Tel , Service support [phone], CC: Manda guevara MD; Chirag Lee DPM Working Manager: Signed 22-Mar-2015 Inital Evaluation - PT Result: Comments: See Note; NOTES: [facility] [address] [place], [place] [address] Fax REHABILITATION SERVICES INITIAL EVALUATION MR#: [id number] Acct: [id number] Name: SUSANNE TORRES Rep #: [id number] : 1950 65 From: Tatiana Wagner Referring [...] to be FAXED BACK to us at [phone] for Medicare purposes. Please let me know if there are questions or concerns regarding this plan of care. Physician Signature: Date: <Electronically signed by Tatiana Wagner > 03/22/15 1556 CC: Manda Higginbotham MD; Chirag Lee DPM Signed For Medicare only, by signing this I certify the plan of care. Physicians Signature Date 31-Dec-2014 Operative Report Result: Comments: See Note; NOTES: [facility] Medical Records Department [address] [facility] [place] [address] Operative Report MR#: [id number] Acct: [id number] Name: SUSANNE TORRES Rep #: [id number] : 1950 64 From: Chirag Lee DPM PCP: Manda Higginbotham MD Status: [facility] DATE OF SERVICE: 12/31/2014 DATE OF SERVICE: [...] LOSS: Less than 1 mL. MATERIALS: One BlackLocus 5.5 mm partially threaded screw with 1 [...] mm screw was placed across the f [facility] metatarsal fracture site intramedullary. Of noted [...] needed. Chirag Lee DPM T: TITI JOB: [id number] 12/31/14 2403 &# 60;Electronically signed by Chirag Lee DPM> Date Chirag Lee DPM CC: Manda Higginbotham MD; Sunday Lee MD Date Dictated: 12/31/14914 Date Transcribed: 12/31/14914 Working Manager: Signed 31-Dec-2014 Foot 2 Views Result: Comments: See Note; NOTES: [facility] Imaging Services [address] [place] [address] Radiology Report MR#: [id number] Acct: [id number] Name: SUSANNE TORRES Rep #: [id number] : 1950 F 64 From: Bayron Payan MD PCP: Manda Higginbotham MD Status: [facility] Study: Foot 2 Views Date of Exam: 12/31/14 Exam# [id number] Ordering Dr: Chirag Lee DPM STUD Y: [...] Bayron Payan MD at 13:09 EDT Tel [phone], Service support [phone], RAD/Foot 2 Views IMPRESSION: Satisfactory ORIF of the transverse fracture of the base of the fifth metatarsal. Electronically Signed: Bayron sosa MD at 13:09 EDT Tel [phone], Service support [phone], CC: Manda Higginbotham MD; Sunday Lee MD Working Manager: Signed 31-Dec-2014 Discharge Instruction Result: Comments: See Note; NOTES: [facility] Medical Records Department [address] [place] [address] Instructions for Home/Discharge Instructions 12/31/14 0832 MR#: [id number] ct: [id number] Name: SUSANNE TORRES Rep #: [id number] : 1950 64 From: Chirag Lee DPM [...] 2 Views Result: Comments: See Note; NOTES: [facility] Imaging Services [address] [place] [address] Radiology Report MR#: [id number] Acct: [id number] Name: SUSANNE TORRES Rep #: [id number] : 1950 F 64 From: Bayron Payan MD PCP: Manda Higginbotham MD Status: [facility] Study: Foot 2 Views Date of Exam: 12/31/14 Exam# [id number] Ordering Dr: Chirag Lee DPM STUD Y: [...] Morgan Payan MD at 13:02 EDT Tel [phone], Service support [phone], RAD/Foot 2 Views IMPRESSION: Satisfactory reduction of the transvers e fracture at the base of the fifth metatarsal with screw fixation. Electronically Signed: Bayron Payan MD at 13:02 EDT Tel [phone], Service support [phone], Fax CC: Manda Higginbotham MD; Sunday Lee MD Working Manager: Signed 24-Sep-2014 Abdomen Single View Result: Comments: See Note; NOTES: [facility] Imaging Services [address] [place] [address] Radiology Report MR#: [id number] Acct: [id number] Name: SUSANNE TORRES Rep #: [id number] : 1950 F 64 From: Agustin Washington MD PCP: Manda Higginbotham MD Status: REG CLI Study: Abdomen Single View Date of Exam: 09/24/14 Exam# [id number] Ordering Dr: Deion [facility] - [facility]BDOMEN/PELVIS REASON FOR EXAM: [...] at 17:02 EST Tel , Service support [phone], Fax RAD/Abdomen Single View IMPRESSION: 5 mm left upper pole stone. Other renal stones are not seen but not excluded. Electronically Signed: Agustin Washington MD at 17:02 EST Tel , Service support [phone], CC: Manda Higginbotham MD; Deion Gomez MD Working Manager: Signed 04-Aug-2014 Abdomen/Pelvis without Cont Result: Comments: See Note; NOTES: [facility] Imaging Services [address] [place] [address] CAT Scan Report MR#: [id number] Acct: [id number] Name: SUSANNE TORRES Rep #: [id number] : 1950 F 64 From: Bayron Payan MD PCP: Manda Higginbotham MD Status: REG CLI Study: Abdomen/Pelvis without Cont Date of Exam: 08/04/14 Exam# [id number] Ordering Dr: Deion Gomez MD STUDY: CT [...] Bayron Payan MD at 11:33 EST Tel [phone], Service support [phone], CC: Manda Higginbotham MD; Deion Gomez MD Working Manager: Signed 13-Jul-2014 Vert Fx Asess/Lat Bone Den(H) Result: Comments: See Note; NOTES: [facility] Imaging Services [address] [place] [address] Bone Density Report MR#: [id number] Acct: [id number] Name: SUSANNE TORRES Rep # : [id number] : 1950 F 64 From: Bayron Payan MD PCP: Manda Higginbotham MD Status: REG CLI Study: Vert Fx Asess/Lat Bone Den(H) Date of Exam: 07/13/14 Exam# [id number] Ordering Dr: Iona Higginbotham MD STUDY: DUAL [...] Bayron Payan MD at 13:17 EST Tel [phone], Service support [phone], CC: Manda Higginbotham MD Working Manager: Signed 13-Jul-2014 Vert Fx Asess/Lat Bone Den(H) Result: Comments: See Note; NOTES: [facility] Imaging Services [address] [place] [address] Bone Density Report MR#: [id number] Acct: [id number] Name: SUSANNE TORRES Rep # : [id number] : 1950 F 64 From: Bayron Payan MD PCP: Manda Higginbotham MD Status: REG CLI Study: Vert Fx Asess/Lat Bone Den(H) Date of Exam: 07/13/14 Exam# [id number] Ordering Dr: Iona Higginbotham MD ADDENDUM by Bayron Payan MD on 08/03/14 at 0947 ADDENDUM This is an addendum r eport. A vertebral assessment study was obtained as well. There is moderate degree of loss of height of the T7 vertebrae. Minimal loss of white of the superior plate of the T11 vertebrae. Electron ically Signed: Bayron Payan MD at 9:47 EST Tel [phone], Service support [phone], 08/03/14 09 Date cc: Manda Higginbotham MD [...] Michael Payan MD at 13:17 EST Tel [phone], Service support [phone], CC: Manda Higginbotham MD Working Manager: Signed 13-Jul-2014 Bilat Scrn Digital AND CAD Result: Comments: See Note; NOTES: [facility] Imaging Services [address] [address] Breast Imaging Report MR#: [id number] Acct: [id number] Name: SUSANNE TORRES Rep #: [id number] : 1950 F 64 From: Hector Oliveira MD PCP: Manda Higginbotham MD Status: REG CLI Study: Bilat Scrn Digital AND CAD Date of Exam: 07/13/14 Exam# [id number] Ordering Dr: Manda Higginbotham MD MAMMOGRAPHY - [...] Eduardo Oliveira MD at 15:14 EST Tel [phone], Service support , CC: Manda Higginbotham MD Working Manager: Signed 13-Jul-2014 Dexa Bone Density Study (HP) Result: Comments: See Note; NOTES: [facility] Imaging Services [address] [place] [address] Bone Density Report MR#: [id number] Acct: [id number] Name: SUSANNE TORRES Rep # : [id number] : 1950 F 64 From: Bayron Payan MD PCP: Manda Higginbotham MD Status: REG CLI Study: Dexa Bone Density Study (HP) Date of Exam: 07/13/14 Exam# [id number] Ordering Dr: Ap Higginbotham MD STUDY: DUAL [...] Bayron Payan MD at 13:24 EST Tel [phone], Service support [phone], CC: Manda Higginbotham MD Working Manager: Signed 02-Apr-2014 Pelvis 1 or 2 Views Result: Comments: See Note; NOTES: [facility] Imaging Services [address] [place] [address] Radiology Report MR#: [id number] Acct: [id number] Name: SUSANNE TORRES Rep #: [id number] : 1950 F 64 From: Ross Javier DO PCP: Manda Higginbotham MD Status: REG CLI Study: Pelvis 1 or 2 Views Date of Exam: 04/02/14 Exam# [id number] Ordering Dr: Peri Deutsch MD STUDY: X-RAY [...] Ross Javier DO at 20:24 EDT Tel [phone], Service support [phone], Fax CC: Manda Higginbotham MD; Peri Deutsch MD Working Manager: Signed 09-Jul-2013 Bilat Scrn Digital & CAD Result: Comments: See Note; NOTES: [facility] Imaging Services [address] [place] [address] Breast Imaging Report MR#: [id number] Acct: [id number] Name: SUSANNE TORRES Rep #: [id number] : 1950 F 63 From: Bayron Payan MD PCP: Status: REG CLI Exam# [id number] Ordering Dr: Manda Higginbotham MD MAMMOGRAPHY - [...] Bayron Payan M.D. at 10:52 EST T [phone], Service support [phone], CC: Manda Higginbotham MD Working Manager: Signed Immunization Name Dates Details Influenza (3 years and up) on: 23-May-2007 Comments: given 0.5cc im in left deltoid lot#[id number] exp.11/27-WF Influenza (3 years and up) on: 11-Jun-2008 Comments: inj given left deltoid no complicationslot:trmcy108mattv:12/28 Influenza (3 years and up) on: 22-Apr-2009 Comments: Lot #: [id number] date: 5/10Amount given: 0.5 mlRoute: IMSite [...] smoker Vital Signs Date Test Result Details 18-Mjv-862849:18 Temperature 97 f Comments: Method: Temporal Pulse [...] kg/m2 Body Surface Area Calculated 1.73 m2 62-Xrw-599155:36 Temperature 98.4 f Comments: Method: Temporal Pulse [...] kg/m2 Body Surface Area Calculated 1.73 m2 73-Lbl-790238:03 Pulse 81 /min Comments: Pattern: Regular Respiration [...] kg/m2 Body Surface Area Calculated 1.74 m2 88-Awt-245727:05 Temperature 96.8 f Comments: Method: Oral Pulse [...] 0.00 cm Results Date Description Value Details 87-Bij-789828:12 CALCIFIDIOL (76789) VIT D 25 Comments: PATIENT NOT FASTINGPERFORMED BY: JOHN [facility] Gtihyi9859 [facility] [id number] Vitamin D, 25-Hydroxy 41.7 ng/mL (Normal) Range: 30.0-100.0 Comments: Vitamin D deficiency has been defined by the [place] of[place]icine and an Endocrine Society practice guideline as alevel of serum 25-OH vitamin D less than 20 ng/mL (1,2).The Endocrine Society went on to further define vitamin Dinsufficiency as a level between 21 and 29 ng/mL (2).1. IOM ([place] of Medicine). 2010. Dietary reference intakes for calcium and D. [place]: The National Academies Press.2. Micky MF, Jessenia NC, Katrin CAMARGO, et al. Evaluation, treatment, and prevention of vitamin D deficiency: an Endocrine Society clinical practice guideline. JCEM. 2010; 96(7):1911-30. 31-Tai-954889:12 VITAMIN B-12 (CYANOCOBALAMIN) Comments: PATIENT NOT FASTINGPERFORMED BY: [facility] Pnxgvo1208 [facility] [id number] (99682) Vitamin B12 459 pg/mL (Normal) Range: 232-1245 63-Zvw-532403:12 TSH (83653) Comments: PATIENT NOT FASTINGPERFORMED BY: [facility] Gsezme8707 [facility] [id number] TSH 2.120 {uIU/mL} (Normal) Range: 0.450-4.500 76-Xek-907850:12 SED RATE ERYTHROCYTE (51181) Comments: PATIENT NOT FASTINGPERFORMED BY: [facility] Yxybjg5454 [facility] [id number] Sedimentation Rate-Westergren 2 mm/h (Normal) Range: 0-40 63-Wuw-704918:12 RHEUMATOID FACTOR-QUANT (49561) Comments: PATIENT NOT FASTINGPERFORMED BY: [facility]6370 [facility] [id number] RA Latex Turbid. <10.0 {IU/mL} (Normal) Range: 0.0-13.9 26-Vgo-006473:12 METABOLIC PANEL, COMPREHENSIVE Comments: PATIENT NOT FASTINGPERFORMED BY: [facility]6370 [facility] [id number] (74107) ALT (SGPT) 19 [iU]/L (Normal) Range: 0-32 [...] 8-27 Glucose 92 mg/dL (Normal) Range: 65-99 49-Qna-343675:12 C-REACTIVE PROTEIN (66306) Comments: PATIENT NOT FASTINGPERFORMED BY: [facility]6370 [facility] [id number] C-Reactive Protein, Quant 1.2 mg/L (Normal) Range: 0.0-4.9 96-Efn-782203:12 CBC (AUTO) (53816) Comments: PATIENT NOT FASTINGPERFORMED BY: [facility]6370 [facility] [id number] Platelets 212 {x10E3/uL} (Normal) Range: 150-379 RDW 13.9 % (Normal) Range: 12.3-15.4 MCHC 33.7 g/dL (Normal) Range: 31.5-35.7 MCH 30.8 pg (Normal) Range: 26.6-33.0 MCV 91 fL (Normal) Range: 79-97 Hematocrit 40.3 % (Normal) Range: 34.0-46.6 Hemoglobin 13.6 g/dL (Normal) Range: 11.1-15.9 RBC 4.42 {x10E6/uL} (Normal) Range: 3.77-5.28 WBC 4.8 {x10E3/uL} (Normal) Range: 3.4-10.8 58-Kmn-332900:12 BIBIANA (ANTINUCLEAR ANTIBODY) Comments: PATIENT NOT FASTINGPERFORMED BY: [facility]CoR[facility] HealthCareJevsuj0865 [facility] [id number] (30909) BIBIANA Direct Negative (Normal) 44-Eub-202402:08 Miscellaneous Lab Procedure Comments: Comments: [id number] TRANGLUTAMINASE SER FZTest(s) Ordered: [id number] [facility] [address]jzuimd[address] [place], [address] [facility] Comments: TEST RESULT LIMITSTransglutaminase Ab IgG/M/ATragl IgG <1.2 U/mL 0.0 - 6.0 Reference Range Negative < 6.0 U/mL Weak Positive LAB (Normal) 6.0 - 9.0 U/mL Positive > 9.0 U/mLTragl IgM 2.0 U/mL 0.0 - 12.4 Reference Range Negative < 9.6 U/mL Equivocal 9.6 - 12.4 TEST U/mL Positive > 12.4 U/mLThe performance characteristics of the TransglutaminaseIgM assay was validated by [facility]. [facility] FDA has not approved or cleared this test. Th e resultsof this assay can be used for clinical diagnosis withoutFDA approval. [facility]. is a CLIAcertified, CAP accredited laboratory for performing highcomplexity assays such as this o ne.Tragl IgA < 1.2 U/mL 0.0 - 4.0 Reference Range Negative < 4.0 U/mL Weak Positive 4.0 - 10.0 U/mL Positive > 10.0 U/mLComment_ TESTING PERFORMED AT [facility]. ORIGINAL REPORT ON FILE IN LAB CONTAINS ADDITIONAL TEST SITE INFORMATION. 62-Yco-452453:30 CBC-Complete Blood Cnt No Diff Comments: [facility] Er[address]ttqfyx[address] [place], [address] MPV 9.8 fL (Normal) Range: 6.2-12.0 PLT [...] 4.2-5.4 WBC 6.0 K/mm3 (Normal) Range: 4.4-11.0 05-Uss-837809:30 Endomysial Antibody IgA Comments: [facility] (refer to report for specific site)refer to report for address and phone number ENDOMYSIAL IGA Negative (Normal) 01-Gff-553226:30 Thyroglobulin Antibody Comments: [facility] (refer to report for specific site)refer to report for address and phone number TG AB 1.1 {IU/mL} (Abnormal) Range: 0.0-0.9 Comments: Thyroglobulin Antibody measured by [employer] Auction SolutionsMethodologyPerformed at: CB - [facility] [address] [id number] Director: Joaquim Barrett PhD, Phone: [phone] 88-Bex-62945:23 CBC-Complete Blood Cnt No Diff Comments: [facility] [address] [place], [address] MPV 9.5 fL (Normal) Range: [...] K/mm3 (Abnormal) Range: 4.4-11.0 :23 Magnesium Comments: [facility] [address] [place], [address] MG 2.3 mg/dL (Normal) Range: 1.6-2.6 :23 Microalb:Creat Ratio,Random UR Comments: [facility] [address] [place], [address] MALB:CREAT 5.6 {mg/g_CRE} (Normal) MICROALBUMIN,UR 5.3 mg/L (Normal) UR CREAT 95.70 mg/dL (Normal) :23 PTHIN 78.4 pg/mL (Normal) Comments: [facility] [address] [place], [place], [address] Range: 18.4-80.1 22-Igh-98034:23 Renal Profile Comments: [facility] Ictvlpovlh[address]365Karissa [place], [address] CO2 28.0 mmol/L (Normal) Range: 21.0-32.0 CL [...] Comments: Please note revised GLUCOSE reference range /02/2018. 78-Ded-11284:23 Vitamin D,25 Hydroxy Comments: [facility] [address] [place], [address] Vitamin D 25-OH 34.7 ng/mL (Normal) Range: 29.95-100.01 Comments: Vitamin D 25(OH) Status Range Deficiency <20 ng/mL (50nmol/L) Insuffciency 20 - 30 ng/mL (50 - 75 nmol/L) Sufficiency 30 - 100 ng/mL (75 - 250 nmol/L) Toxicity >100 ng/mL (>250 nmol/L) 69-Vfk-138338:19 CBC W/Diff, Automated Comments: [facility] Gaz[address]vmvh[address] [place], [address] Absolute Lymph 1.25 {X10_3/ul} (Normal) Range: 0.83-4.51 [...] 4.2-5.4 WBC 3.9 K/mm3 (Abnormal) Range: 4.4-11.0 81-Dty-199847:19 Endomysial Antibody IgA Comments: [facility] (refer to report for specific site)refer to report for address and phone number ENDOMYSIAL IGA Negative (Normal) Comments: Performed at: [facility] [address] [id number] Director: Joaquim Barrett PhD, Phone: [phone] 84-Lkj-384815:19 t-Transglutaminase IgA Comments: [facility] (refer to report for specific site)refer to report for address and phone number tTG IGA <2 U/mL (Normal) Range: 0-3 Comments: Negative 0 - 3 Weak Positive 4 - 10 Positive >10 Tissue Transglutaminase (tTG) has been identified as the endomysial anti gen. Studies have demonstr- ated that endomysial IgA antibodies have over 99% specificity for gluten sensitive enteropathy. 75-Qmd-139414:00 Culture, Urine Comments: [facility] [address] [place], [place], [address] CUUR See Note (Normal) Comments: Urine CultureCulture exhibits no growth. :27 CBC-Complete Blood Cnt No Diff Comments: [facility] [address] [place], [place], [id number] MPV 10.4 fL (Normal) Range: 6.2-12.0 PLT [...] K/mm3 (Abnormal) Range: 4.4-11.0 :27 Magnesium Comments: [facility] [address] [place], [place], [address] MG 2.1 mg/dL (Normal) Range: 1.8-2.4 :27 Microalb:Creat Ratio,Random UR Comments: [facility] [address] [place], [place], [address] MALB:CREAT 4.6 {mg/g_CRE} (Normal) MICROALBUMIN,UR 8.6 mg/L (Normal) UR CREAT 188.00 mg/dL (Normal) :27 Renal Profile Comments: [facility] [address] [place], [address] CO2 27.0 mmol/L (Normal) Range: 21.0-32.0 CL [...] Range: 70-110 :27 Vitamin D,25 Hydroxy Comments: [facility] Inziuzoeri[address] [place]IE [place], [address] Vitamin D 25-OH 57.5 ng/mL (Normal) Comments: Vitamin D 25(OH) Status Range Deficiency <20 ng/mL (50nmol/L) Insuffciency 20 - 30 ng/mL (50 - 75 nmol/L) Sufficiency 30 - 100 ng/mL (75 - 250 nmol/L) Toxicity >100 ng/mL (>250 nmol/L) 0-Ujq-238175:15 TSH (61829) Comments: PATIENT NOT FASTINGPERFORMED BY: [facility] Kybvwf4039 [address] RoadDublin [place] [id number] TSH 2.900 {uIU/mL} (Normal) Range: 0.450-4.500 :15 SED RATE ERYTHROCYTE (41611) Comments: PATIENT NOT FASTINGPERFORMED BY: [facility]6370 [facility] [id number] Sedimentation Rate-Westergren 2 mm/h (Normal) Range: 0-40 :15 C-REACTIVE PROTEIN (04411) Comments: PATIENT NOT FASTINGPERFORMED BY: [facility]CoR[facility] HealthCareZnjrdj1691 [facility] [id number] C-Reactive Protein, Quant 1.4 mg/L (Normal) Range: 0.0-4.9 :15 METABOLIC PANEL, COMPREHENSIVE Comments: PATIENT NOT FASTINGPERFORMED BY: [facility]6370 [facility] [id number] (76850) ALT (SGPT) 10 [iU]/L (Normal) Range: 0-32 [...] Glucose, Serum 106 mg/dL (Abnormal) Range: 65-99 0-Fbz-630817:15 CBC W/AUTO DIFF WBC (43703) Comments: PATIENT NOT FASTINGPERFORMED BY: [facility] Vizgwr2386 [facility] [id number] Immature Grans (Abs) 0.0 {x10E3/uL} (Normal) Range: [...] Range: 3.4-10.8 :23 CBC W/Diff, Automated Comments: [facility] [address] [place], [address] Absolute Lymph 1.81 {X10_3/ul} (Normal) Range: 0.83-4.51 [...] 4.2-5.4 WBC 4.8 K/mm3 (Normal) Range: 4.4-11.0 57-Oti-07504:23 Comprehensive Metabolic Profil Comments: [facility] [address] [place], [address] GAP 5 (Normal) Range: 5-15 CO2 31.0 [...] 7-18 GLU 90 mg/dL (Normal) Range: 70-110 41-Kcf-08131:23 CRP, High Sensitivity Cardiac Comments: [facility] R[address]qau99[address] [place], [place], [address] CRP HIGH SENS 2.99 mg/L (Normal) Comments: Low Relative Risk of CVD <1.0 mg/L Average Relative Risk of CVD 1.0 - 3.0 mg/L High Relative Risk of CVD >3.0 mg/L 29-Cwu-45373:23 Erythrocyte Sed Rate Comments: [facility] H[address]nwswpjm2692 [place], [place], [address] SED RATE 2 mm/h (Normal) Range: 0-30 :55 ASPIRATION (SLIDES ONLY) See Note (Normal) Comments: [facility] [address] [place] [address], [id number] Comments: Patient: SUSANNE TORRES : 1950 (66/F) Acct Num: [id number] Phys: Trinh KRISHNAN,Keanu Unit Num: [id number] Loc: [facility] Specimen: [id number] Received: 01/23/17 - 1605 Spec Type: ASPIRATION TISSUES TISSUES: COMMENT Immediate cytologic evaluation to determine adequacy is not applicable. Correlation with clinical, radiologic findings and appropriate fol low up are necessary. CYTOLOGY GROSS Received are 12 smears labeled with the patient's name and designated per the requisition as left thyroid FNA. Submitted for staining. 01/24/17 TC:5 CPT: 78679 CYTOLOGY STUDY Slides are reviewed. The specimen [...] <signature on file> :39 T3, FREE (TRIDOTHYRONINE) (40633) Comments: PATIENT NOT FASTINGPERFORMED BY: [employer] A[address]uer[address] [facility] [id number] Triiodothyronine,Free,Serum 2.6 pg/mL (Normal) Range: 2.0-4.4 :39 T4, FREE (THYROXINE) (21986) Comments: PATIENT NOT FASTINGPERFORMED BY: [facility] ServicesLea Regional Medical CenterZwjjwb5104 [facility] [id number] T4,Free(Direct) 1.49 ng/dL (Normal) Range: 0.82-1.77 70-Tmk-659520:39 TSH (16652) Comments: PATIENT NOT FASTINGPERFORMED BY: [facility] ServicesLea Regional Medical CenterBlgfgv1543 [facility] [id number] TSH 1.970 {uIU/mL} (Normal) Range: 0.450-4.500 5-Udc-217710:31 ANTINUCLEAR ANTIBODIES DIRECT Comments: [facility] (refer to report for specific site)refer to report for address and phone number BIBIANA-DIRECT Positive (Abnormal) Comments: Performed at: - [facility] [address] [id number] Director: Joaquim Barrett PhD, Phone: [phone] 2-Sum-723287:31 CBC W/Diff, Automated Comments: [facility] [address]ljhmia[address] [place], [address] Absolute Lymph 1.15 {X10_3/ul} (Normal) [...] 4.2-5.4 WBC 4.4 K/mm3 (Normal) Range: 4.4-11.0 2-Zgc-218275:31 Magnesium Comments: [facility] [address] [place], [address] MG 2.1 mg/dL (Normal) Range: 1.8-2.4 :31 Protein+Creatinine Ratio,Urine Comments: [facility] [address] [place], [address] PROT:CRE RATIO 88 {mg/g_CRE} (Normal) Range: 0-200 PROTEIN,UR.RAN. 7.2 mg/dL (Normal) UR CREAT 81.80 mg/dL (Normal) 5-Zzm-115861:31 Renal Profile Comments: [facility] [address]aeuo[address] [place], [address] CO2 25.0 mmol/L (Normal) Range: 21.0-32.0 CL [...] <126 mg/dLsuggests IMPAIRED HOMEOSTASIS per A.D.A. criteria. 9-Dro-623376:31 Vitamin D,25 Hydroxy Comments: [facility] [address]ks[address]zwuhp[address] [place], [address] Vitamin D 25-OH 48.2 ng/mL (Normal) Comments: Vitamin D 25(OH) Status Range Deficiency <20 ng/mL (50nmol/L) Insuffciency 20 - 30 ng/mL (50 - 75 nmol/L) Sufficiency 30 - 100 ng/mL (75 - 250 nmol/L) Toxicity >100 ng/mL (>250 nmol/L) :45 Culture, Urine Comments: [facility] [address]xvb[address] [place], [address] CUUR See Note (Normal) Comments: Urine CultureBelow infection level. ORGANISM 1: Mixed Gram Positive OrganismsColony Count <1000 32-Paj-792059:03 CALCIFIDIOL (47798) VIT D 25 Comments: PATIENT NOT FASTINGPERFORMED BY: [facility] Jfknqj3177 [address] Roadblct [place] [id number] Vitamin D, 25-Hydroxy 52.3 ng/mL (Normal) Range: 30.0-100.0 Comments: Vitamin D deficiency has been defined by the [place] ofMedicine and an Endocrine Society practice guideline as alevel of serum 25-OH vitamin D less than 20 ng/mL (1,2).The Endocrine Society went on to further define vitamin Dinsufficiency as a level between 21 and 29 ng/mL (2).1. IOM ([place] of Medicine). 2010. Dietary reference intakes for calcium and D. [place]: The National Academies Press.2. Micky MF, [place]enia NC, Katrin CAMARGO, et al. Evaluation, treatment, and prevention of vitamin D deficiency: an Endocrine Society clinical practice guideline. JCEM. 2010; 96(7):1911-30. 70-Cig-714683:03 Folate (65512) Comments: PATIENT NOT FASTINGPERFORMED BY: [facility] Ssgaml[address] [facility]bl[facility] [place] [id number] Folate (Folic Acid), Serum >20.0 ng/mL (Normal) Comments: A serum folate concentration of less than 3.1 ng/mL isconsidered to represent clinical deficiency. 60-Orn-761832:03 VITAMIN B-12 (CYANOCOBALAMIN) Comments: PATIENT NOT FASTINGPERFORMED BY: [facility] Joahqy6[address] Walton RoadDublin [place] [id number] ([address]) Vitamin B12 469 pg/mL (Normal) Range: 211-946 58-Oxi-872313:03 TSH (64602) Comments: PATIENT NOT FASTINGPERFORMED BY: CB [facility] Obqyir[address] [facility]in [place] [id number] TSH 2.240 {uIU/mL} (Normal) Range: 0.450-4.500 81-Ewb-020074:03 SED RATE ERYTHROCYTE (41659) Comments: PATIENT NOT FASTINGPERFORMED BY: CB [facility] Eglkdi4246 [facility] [id number] Sedimentation Rate-Westergren 2 mm/h (Normal) Range: 0-40 51-Kma-561815:03 RHEUMATOID FACTOR-QUANT (45310) Comments: PATIENT NOT FASTINGPERFORMED BY: CB [facility] Uchskd2020 [facility] [id number] RA Latex Turbid. 12.1 {IU/mL} (Normal) Range: 0.0-13.9 66-Ora-962157:03 METABOLIC PANEL, COMPREHENSIVE Comments: PATIENT NOT FASTINGPERFORMED BY: [facility] Ehudeg1445 [facility] [id number] (60616) ALT (SGPT) 15 [iU]/L (Normal) Range: 0-32 [...] Glucose, Serum 89 mg/dL (Normal) Range: 65-99 34-Pht-223222:03 C-REACTIVE PROTEIN (65537) Comments: PATIENT NOT FASTINGPERFORMED BY: [facility]CoR[facility] HealthCareLxemtr5326 [facility] [id number] C-Reactive Protein, Quant 0.4 mg/L (Normal) Range: 0.0-4.9 :03 CBC (AUTO) (80902) Comments: PATIENT NOT FASTINGPERFORMED BY: [facility]CoR[facility] HealthCareWqfxfr3197 [facility] [id number] Platelets 220 {x10E3/uL} (Normal) Range: 150-379 RDW 13.1 % (Normal) Range: 12.3-15.4 MCHC 32.8 g/dL (Normal) Range: 31.5-35.7 MCH 30.1 pg (Normal) Range: 26.6-33.0 MCV 92 fL (Normal) Range: 79-97 Hematocrit 41.1 % (Normal) Range: 34.0-46.6 Hemoglobin 13.5 g/dL (Normal) Range: 11.1-15.9 RBC 4.49 {x10E6/uL} (Normal) Range: 3.77-5.28 WBC 4.7 {x10E3/uL} (Normal) Range: 3.4-10.8 35-Foq-841884:03 BIBIANA (ANTINUCLEAR ANTIBODY) Comments: PATIENT NOT FASTINGPERFORMED BY: [facility]6370 [facility] [id number] (98964) BIBIANA Direct Positive (Abnormal) :06 ANTINUCLEAR ANTIBODIES DIRECT Comments: CMP,CBCD FOR DR PHELPS,CBCD FOR DR Hannah (refer to report for specific site)refer to report for address and phone number BIBIANA-DIRECT Negative (Normal) Comments: Performed at: [facility] LabCo[address] [id number] Director: Joaquim Barrett PhD, Phone: [phone] :06 CBC W/Diff, Automated Comments: CMP,CBCD FOR DR PHELPS,CBCD FOR DR LOTTuniversity of new [facility] hospitalsotoniel [facility] Qvblcuexny[address] Avjacqueline[place], [place], [address] Absolute Lymph 1.89 {X10_3/ul} (Normal) Range: 0.83-4.51 [...] mg/dL (Normal) Range: 82-167 Comments: Performed at: [address] [id number] Director: Joaquim Barrett PhD, Phone: [phone] :06 Complement C4 Comments: CMP,CBCD FOR DR PHELPS,CBCD FOR DR Hannah (refer to report for specific site)refer to report for address and phone number COMP C4 14 mg/dL (Normal) Range: 14-44 :06 Comprehensive Metabolic Profil Comments: CMP,CBCD FOR DR [place] [facility] Etymtrynnv[address] [place], [place], [address] GAP 8 (Normal) Range: 5-15 CO2 30.0 [...] Range: 70-110 :06 Magnesium Comments: CMP,CBCD FOR [facility] [address]ve[address] [place], [place], [id number] MG 2.1 mg/dL (Normal) Range: 1.8-2.4 :06 Protein+Creatinine Ratio,Urine Comments: CMP,CBCD FOR [facility] [id number] [place], [id number] PROT:CRE RATIO 128 {mg/g_CRE} (Normal) Range: 0-200 PROTEIN,UR.RAN. 13.8 mg/dL (Abnormal) UR CREAT 108.00 mg/dL (Normal) :06 Vitamin D,25 Hydroxy Comments: CMP,CBCD FOR [facility] [id number] [place], [id number] Vitamin D 25-OH 48.7 ng/mL (Normal) Comments: Vitamin D 25(OH) Status Range Deficiency <20 ng/mL (50nmol/L) Insuffciency 20 - 30 ng/mL (50 - 75 nmol/L) Sufficiency 30 - 100 ng/mL (75 - 250 nmol/L) Toxicity >100 ng/mL (>250 nmol/L) 9-Sfn-176254:07 Fecal Occult Blood , Office (12011) Fecal Occult Blood , Office (Inhouse) negative (Normal) 80-Hah-69687:22 CBC W/Diff, Automated Comments: RENAL AND MG ARE FOR DR. Hollingsworthotoniel [facility] [address] [place], [address] Absolute Lymph 1.92 {X10_3/ul} (Normal) [...] 4.2-5.4 WBC 4.2 K/mm3 (Abnormal) Range: 4.4-11.0 11-Umd-60917:22 Comprehensive Metabolic Profil Comments: [facility] AND [facility] [address]cswnnuvo[address] [place], [place], [id number] GAP 6 (Normal) Range: 5-15 CO2 31.0 [...] 7-18 GLU 87 mg/dL (Normal) Range: 70-110 14-Ldt-83895:22 Lipid Profile Comments: RENAL AND MG ARE FOR DR. Ellsworth [facility] [address]ftiar[address] [place], [address] VLDL 12 mg/dL (Normal) Range: 5-40 LDL [...] [facility] Xddwbmiwil[address] [place], [address] MG 2.1 mg/dL (Normal) Range: 1.8-2.4 :22 Phosphorus Comments: RENAL AND MG ARE FOR [facility] [address] [place], [address] PHOS 2.6 mg/dL (Normal) Range: 2.5-4.9 :22 Thyroid Stim Hormone (TSH) Comments: RENAL AND MG ARE FOR [facility] [address]kotp[address] [place], [address] TSH 2.69 {uIU/mL} (Normal) Range: 0.358-3.74 :22 Vitamin D,25 Hydroxy Comments: RENAL AND MG ARE FOR [facility] Kgsrkmgbbk[address] [place] [place], [address] Vitamin D 25-OH 51.1 ng/mL [...] Positive (Abnormal) Comments: Performed at: - [facility] [address] [id number] Director: Joaquim Barrett PhD, Phone: [phone] 12-Kwi-41863:50 CBC W/Diff, Automated Comments: [facility] [address] [place], [address] Absolute Lymph 1.76 {X10_3/ul} (Normal) Range: 0.83-4.51 [...] (Normal) Range: 82-167 Comments: Performed at: - [facility] [id number] Director: Joaquim Barrett PhD, Phone: [phone] :50 Complement C4 Comments: [facility] (refer to report for specific site)refer to report for address and phone number COMP C4 15 mg/dL (Normal) Range: 14-44 :50 Comprehensive Metabolic Profil Comments: ORDERED CMP CBCD PROCRE UACDR.SHELLEY ORDERED VITD CMP BIBIANA CBCD C3 C4 MG PROCRE UADR.ENDY ORDERED [facility] [address] [place], [place], [id number] GAP 5 (Normal) Range: 5-15 CO2 28.0 [...] (Normal) Range: 70-110 :50 Culture, Urine Comments: [facility] [address]ihm[address] [place], [place], [id number] CUUR See Note (Normal) Comments: Urine CultureCulture exhibits no growth. :50 Magnesium Comments: ORDERED CMP CBCD PROCRE UACDRZOË ORDERED VITD CMP BIBIANA CBCD C3 C4 MG PROCRE UADR.ENDY ORDERED [facility] [address]br[address] [place], [address] MG 2.1 mg/dL (Normal) Range: 1.8-2.4 :50 Protein+Creatinine Ratio,Urine Comments: [facility] [address] [place], [address] PROT:CRE RATIO 161 {mg/g_CRE} (Normal) Range: 0-200 PROTEIN,UR.RAN. 10.6 mg/dL (Normal) UR CREAT 65.90 mg/dL (Normal) :50 Urinalysis, Routine (Dipstick) Comments: How was Urine Obtained? CLEAN [facility] [address] [place], [address] LEUK ESTERASE 25 /ul (Abnormal) OCCULT [...] Yellow (Normal) :50 Vitamin D,25 Hydroxy Comments: [facility] [address]svu[address] [place], [address] Vitamin D 25-OH 58.7 ng/mL (Normal) Comments: Vitamin D 25(OH) Status Range Deficiency <20 ng/mL (50nmol/L) Insuffciency 20 - 30 ng/mL (50 - 75 nmol/L) Sufficiency 30 - 100 ng/mL (75 - 250 nmol/L) Toxicity >100 ng/mL (>250 nmol/L) 27-Jul-20158:33 Lipid Profile Comments: [facility] [address] [place], [id number] VLDL 18 mg/dL (Normal) Range: 5-40 LDL [...] High Risk :33 Vitamin D,25 Hydroxy Comments: [facility] [address] [place], [id number] Vitamin D 25-OH 43.3 ng/mL (Normal) Comments: Vitamin D 25(OH) Status Range Deficiency <20 ng/mL (50nmol/L) Insuffciency 20 - 30 ng/mL (50 - 75 nmol/L) Sufficiency 30 - 100 ng/mL (75 - 250 nmol/L) Toxicity >100 ng/mL (>250 nmol/L) 65-Jko-101058:12 EBV Acute Prof IgG / IgM Comments: [...] - Antibody Ab sentPerformed at: - [facility] [address] [id number] Director: Joaquim Barrett PhD, Phone: [phone] EB-NAg [id number] 38.3 U/mL (Abnormal) Range: 0.0-17.9 Comments: Negative <18.0 Equivocal 18.0 - 21.9 Positive >21.9 EB-VCA [id number] 306.0 U/mL (Abnormal) Range: 0.0-17.9 Comments: Negative <18.0 Equivocal 18.0 - 21.9 Positive >21.9 EB-EA IgG 66207 <9.0 U/mL (Normal) Range: 0.0-8.9 Comments: Negative < 9.0 Equivocal 9.0 - 10.9 Positive >10.9 EB-VCA [id number] < 36.0 U/mL (Normal) Range: 0.0-35.9 Comments: Negative <36.0 Equivocal 36.0 - 43.9 Positive >43.9 :15 Immunofixation Urine Comments: PATIENT STATES FLU X'S 2 WAS DONE AT THE OFFICE BY ONE OFTHE NURSES.[facility] (refer to report for specific site)refer to report for address and phone number CLIVE Urine Comment (Normal) Comments: No monoclonality detected.Performed at: [facility] [address] [id number] Director: Joaquim Barrett PhD, Phone: [phone] :15 Immunofixation, Serum Comments: PATIENT STATES FLU [...] 1776 697 mg/dL (Abnormal) Range: 700-1600 :15 [place] [employer] Comments: PATIENT STATES FLU [...] % (Normal) BETA GLOB,U 30.8 % (Normal) NVSKU-0-WQCK,U 16.9 % (Normal) ZUCYF-1-WAMJ,U 1.8 % (Normal) ALBUMIN,UR 35.1 % (Normal) PROTEIN,UR 13.0 mg/dL (Normal) Range: 0.0-15.0 :15 Protein Electroph, S Comments: PATIENT STATES FLU X'S 2 WAS DONE AT THE OFFICE BY ONE OFTHE NURSES.[facility] (refer to report for specific site)refer to report for address and phone number NOTE Comment (Normal) Comments: Protein electrophoresis scan will follow via computer,mail, or shoe cutter delivery. NOTE: Comment (Normal) Comments: The SPE pattern appears essentially unremarkable. Evidenceof monoclonal protein is not apparent. INTERPRETATION Comment (Normal) Comments: Protein electrophoresis scan will follow via computer,mail, or shoe cutter delivery. A/G RATIO 1.7 (Normal) Range: 0.7-2.0 GLOBULIN, TOTAL 2.3 g/dL (Normal) Range: 2.0-4.5 M-SPIKE (Normal) Comments: Not Observed GAMMA GLOBULIN 0.7 g/dL (Normal) Range: 0.5-1.6 BETA GLOBULIN 0.8 g/dL (Normal) Range: 0.6-1.3 ALPHA-2 GLOBUL 0.6 g/dL (Normal) Range: 0.4-1.2 ALPHA-1 GLOBUL 0.2 g/dL (Normal) Range: 0.1-0.4 ALBUMIN 3.9 g/dL (Normal) Range: 3.2-5.6 PROTEIN,TOTAL 6.2 g/dL (Normal) Range: 6.0-8.5 60-Bpa-529257:22 Rapid Flu (99399 x 2) Influenza A Ag negative (Normal) 18-Mvq-581461:56 Vitamin D,25 Hydroxy Comments: [facility] [address] [place], [place], [address] Vitamin D 25-OH 87.5 ng/mL (Normal) Comments: Vitamin D 25(OH) Status Range Deficiency <20 ng/mL (50nmol/L) Insuffciency 20 - 30 ng/mL (50 - 75 nmol/L) Sufficiency 30 - 100 ng/mL (75 - 250 nmol/L) Toxicity >100 ng/mL (>250 nmol/L) :31 CBC W/Diff, Automated Comments: [facility] [address] [place], [place], [id number] Absolute Lymph 1.68 {X10_3/ul} (Normal) Range: 0.83-4.51 [...] Range: 4.4-11.0 :31 Comprehensive Metabolic Profil Comments: [facility] [address] [place], [place], [address] GAP 3 (Abnormal) Range: 5-15 CO2 32.0 [...] (Normal) Range: 70-110 :31 Protein+Creatinine Ratio,Urine Comments: [facility] [address]xfvbtkko[address] [place], [place], [id number] PROT:CRE RATIO 180 {mg/g_CRE} (Normal) Range: 0-200 PROTEIN,UR.RAN. 39.2 mg/dL (Abnormal) UR CREAT 218.00 mg/dL (Normal) :31 Urinalysis, Complete Comments: How was Urine Obtained? Urine, [facility] Hwxkolxllj8655 [facility] [place], [place], [address] AMORPHOUS 1+ (Normal) MUCUS, URINE 0 SEEN [...] CLARITY Sl. Cloudy (Normal) COLOR Yellow (Normal) 84-Occ-699415:20 Basic Metabolic Profile (BMP) Comments: [facility] Czvbpjlsnf5362 [facility] [place], [place], [address] GAP 6 (Normal) Range: 5-15 CO2 30.0 [...] 7-18 GLU 89 mg/dL (Normal) Range: 70-110 75-Dfa-856710:20 CBC-Complete Blood Cnt No Diff Comments: [facility] [address] [place], [address] MPV 9.2 fL (Normal) Range: [...] 4.2-5.4 WBC 4.7 K/mm3 (Normal) Range: 4.4-11.0 48-Xej-158276:01 Basic Metabolic Profile (BMP) Comments: Test performed at:[facility] Lnfhjlbeoc5151 [facility] [place], [place] [address] GAP 4 (Abnormal) Range: 5-15 CO2 30.0 [...] 7-18 GLU 97 mg/dL (Normal) Range: 70-110 25-Hiq-122859:01 Vitamin D,25 Hydroxy Comments: Test performed at:[facility] Fliyaammct67[address] [facility] [place] [address] Vitamin D 25-OH 22.7 ng/mL (Normal) Comments: Vitamin D 25(OH) Status Range Deficiency <20 ng/mL (50nmol/L) Insuffciency 20 - 30 ng/mL (50 - 75 nmol/L) Sufficiency 30 - 100 ng/mL (75 - 250 nmol/L) Toxicity >100 ng/mL (>250 nmol/L) 26-Sph-33061:12 CBC W/Diff, Automated Comments: Test performed at:[facility] [address] [place] [address] Absolute Lymph 1.39 {X10_3/ul} (Normal) Range: [...] :12 Comprehensive Metabolic Profil Comments: Test performed at:[facility] [address] [address] GAP 9 (Normal) Range: 5-15 [...] :52 CBC W/Diff, Automated Comments: Test performed at:[facility] [address]ymfsul[address] [place] [address] Absolute Lymph 1.62 {X10_3/ul} (Normal) [...] :52 Comprehensive Metabolic Profil Comments: Test performed at:[facility] Rnzjooccuj[address] [place] [address] GAP 6 (Normal) Range: 5-15 CO2 31.0 [...] 7-18 GLU 77 mg/dL (Normal) Range: 70-110 3-Ntw-824754:40 FENTANYL Blood Level Comments: Test performed at:[facility] Nwvqpqkbjv8116 [facility] [place] [address] FENTANYL BLD (Normal) Comments: Sent directly to testing facility per ordering physician.02/16/15 1622 [facility] :53 CBC W/Diff, Automated Comments: Test performed at:[facility] Uiukhpizgg6854 [facility]. [place], [place] [address] Absolute Lymph 1.44 {X10_3/ul} (Normal) Range: 0.83-4.51 [...] :53 Comprehensive Metabolic Profil Comments: Test performed at:[facility] Neatkmlqzm8991 [facility] HospitalJayden [place], [place] [address] GAP 5 (Normal) Range: 5-15 CO2 31.0 [...] 70-110 :53 Lipid Profile Comments: Test performed at:[facility] Tegksnoefc0093 [facility] [place] [address] VLDL 13 mg/dL (Normal) Range: [...] 200-240 mg/dL Borderline >240 mg/dL High Risk 65-Kos-19057:53 Vitamin D,25 Hydroxy Comments: Test performed at:[facility] [address] [place] [address] Vitamin D 25-OH 27.3 ng/mL (Normal) Comments: Vitamin D 25(OH) Status Range Deficiency <20 ng/mL (50nmol/L) Insuffciency 20 - 30 ng/mL (50 - 75 nmol/L) Sufficiency 30 - 100 ng/mL (75 - 250 nmol/L) Toxicity >100 ng/mL (>250 nmol/L) 6-Tze-957119:14 Culture, Urine Comments: Test performed at:[facility] [address] [place] [address] ; ordered by endy JACKSON See Note (Normal) Comments: Urine CultureCulture exhibits no growth. 1-Ekf-025619:14 Urinalysis, Routine (Dipstick) Comments: How was Urine Obtained? CLEAN CATCHTest performed at:[facility] [address] [place] [address] LEUK ESTERASE Negative /ul (Normal) OCCULT BLOOD-UR Negative /ul (Normal) NITRITE UR Negative (Normal) UROBILI Normal mg/dL (Normal) PROT DIPSTX Negative mg/dL (Normal) pH UR 5.0 (Normal) Range: 5.0 - 8.0 SP.GR. DIPSTX 1.030 (Normal) Range: 1.002-1.030 KETONE UR Negative mg/dL (Normal) BILIRUBIN URINE Negative mg/dL (Normal) GLUCOSE, UR Normal mg/dL (Normal) CLARITY Clear (Normal) COLOR Yellow (Normal) 42-Afp-776370:19 FENTANYL Blood Level Comments: Test performed at:[facility] Hss[address]njzwu[address] [place], [place] [address] FENTANYL BLD (Normal) Comments: Scanned image report available in EMR :48 CBC W/Diff, Automated Comments: Test performed at:[facility] Bfmqtwnrcr[address] [place], [place] [address] Absolute Lymph 2.34 {X10_3/ul} (Normal) Range: 0.83-4.51 [...] 4.2-5.4 WBC 4.6 K/mm3 (Normal) Range: 4.4-11.0 10-Kmu-08904:48 Comprehensive Metabolic Profil Comments: Test performed at:[facility] Cdoautcxez0693 [facility] [place] [address] GAP 4 (Abnormal) Range: 5-15 [...] CMV Acute Antibody IgM Comments: Test performed at:[facility] Rdygcwcvdu1730 [facility] [place] [address] CMVIgM AB < 30.0 AU/mL (Normal) Range: 0.0-29.9 Comments: Negative <30.0 Equivocal 30.0 - 34.9 Positive >34.9A positive result is generally indicative of acuteinfection, react ivation or persistent IgM production.Performed at: - [facility] [id number] Director: Yury Cornelius PhD, Phone: [phone] :39 CMV Antibody IgG Comments: Test performed at:[facility] V[address]ks[address] [place] [address] CMV AB IgG < 0.60 U/mL (Normal) Range: 0.00-0.59 Comments: Negative <0.60 Equivocal 0.60 - 0.69 Positive >0.69 :39 Comprehensive Metabolic Profil Comments: Test performed at:[facility] Uhrafomcut[address] [place] [address] GAP 4 (Abnormal) Range: 5-15 [...] Prof IgG / IgM Comments: Test performed at:[facility] Hcsmswabpm[address] [place] [address] INTERPRETATION Comment (Normal) Comments: EBV Interpretation ChartInterpretation EBV-IgM VCA-IgG EBNA-IgG EA(D)-IgGEBV Seronegative - - - -Early Phase + - - -Acute Primary + + - +or-InfectionConvalescence/Past - + + +or-InfectionReactivated +or- + + +Infection + Antibody Present - Antibody Absent EB-NAg [id number] 36.1 U/mL (Abnormal) Range: 0.0-17.9 Comments: Negative <18.0 Equivocal 18.0 - 21.9 Positive >21.9 EB-VCA JaP11662 289.0 U/mL (Abnormal) Range: 0.0-17.9 Comments: Negative <18.0 Equivocal 18.0 - 21.9 Positive >21.9 EB-EA IgG 70913 <9.0 U/mL (Normal) Range: 0.0-8.9 Comments: Negative < 9.0 Equivocal 9.0 - 10.9 Positive >10.9 EB-VCA [id number] < 36.0 U/mL (Normal) Range: 0.0-35.9 Comments: Negative <36.0 Equivocal 36.0 - 43.9 Positive >43.9 :39 Lipid Profile Comments: Test performed at:[facility] [address] [place] [address] VLDL 11 mg/dL (Normal) Range: 5-40 [...] :39 Vitamin D,25 Hydroxy Comments: Test performed at:[facility] Odrykzeind[address]10 [place] [address] Vitamin D 25-OH 36.8 ng/mL (Normal) Comments: Vitamin D 25(OH) Status Range Deficiency <20 ng/mL (50nmol/L) Insuffciency 20 - 30 ng/mL (50 - 75 nmol/L) Sufficiency 30 - 100 ng/mL (75 - 250 nmol/L) Toxicity >100 ng/mL (>250 nmol/L) 16-Cht-206363:32 URINE MICHI CULTURE-ZACHARY COL Comments: PATIENT NOT FASTINGPERFORMED BY: [facility] Hapyjj0376 [facility] [id number] Information: SRC:UR [id number] COUNT ([id number]) Result 1 ENTECC (Abnormal) Comments: Enterobacter cloacae [...] S Urine Final report Culture,Comprehensi (Abnormal) ve 47-Xlf-10248:50 Urinalysis, Office (00157) UA - LEUKOCYTE ESTERASE Small (Normal) UA - NITRITE Negative (Normal) URINE UROBILINGN ZACHARY 2 mg/dL (Normal) TIMED UA - PROTEIN Negative mg/dL (Normal) UA - PH 6.5 (Normal) UA - BLOOD non-hemolyzed trace (Normal) UA - SPECIFIC GRAVITY 1.010 (Normal) UA - KETONES Negative mg/dL (Normal) UA - BILIRUBIN Negative (Normal) UA - GLUCOSE Negative (Normal) 69-Zhq-23516:00 BIBIANA Positive (Abnormal) Comments: Performed at: - [facility] [address] [id number] Director: Yury Cornelius PhD, Phone: [phone] :[phone] ANEX FRANCOIS-[facility] <0.2 {AI} (Normal) Range: 0.0-0.9 [employer]SEM[employer] SUPERVISOR-[facility] >8.0 {AI} (Abnormal) Range: 0.0-0.9 : ANTIJO-[facility] <0.2 {AI} (Normal) Range: 0.0-0.9 : ANTISCL-[facility] <0.2 {AI} (Normal) Range: 0.0-0.9 : C3 108 (Normal) Range: 90-180 Comments: Result Units: mg/dL AdultPerformed at: CB - [facility] [address] [id number] Director: Yury Cornelius PhD, Phone: [phone] C4 15 (Normal) Range: 9-36 Comments: Result [...] tSJ1 < 0.2 {AI} (Normal) Range: 0.0-0.9 22-Mna-17536:00 UAC Comments: How was Urine Obtained? CLEAN [...] UCLAR Sl. Cloudy (Normal) UCOL Yellow (Normal) 9-Dak-675012:53 CUUR URC See Note (Normal) Comments: ORGANISM 1: Mixed Gram Positive OrganismsColony Count 1000-10,000MIX CONTAM Mixed Contaminants. Submit new specimen if indicated. 86-Pbi-534346:07 BIBIANA Positive (Abnormal) Comments: Performed at: - [address] [id number] Director: Yury Cornelius PhD, Phone: [phone] 69-Jqf-265309:07 CBCD ALC 1.50 {X10_3/ul} (Normal) Range: 0.83-4.51 [...] HEBSAG ttHEBSAG Negative (Normal) Comments: Performed at: [address] [id number] Director: Yury Cornelius PhD, Phone: [phone] at: [address] [place] [id number] Director: Rogelio Randle PhD, Phone: [phone] at: [address] [id number] Director: Murray Mabry MD, Phone: [phone] :07 HECAB tHECAB <0.1 {s/co_ratio} (Normal) Range: 0.0-0.9 Comments: Negative: < 0.8Indeterminate: 0.8 - 0.9Positive: > 0.9In order to reduce the incidence of a false positiveresult, the CDC recommends that all s/co ratiosbetween 1.0 and 10.9 be confirmed b y a more specificsupplemental or PCR testing. [facility] offers HCV Abw/Reflex to Verification test #030567. :07 HLAB27 tHLAB27 Negative (Normal) Comments: HLA-B*27 NegativeA [facility] CLIA ID Number [id number] test was performed using PCR (Polymerase ChainReaction)/SSOP [...] :37 BID 0.21 mg/dL (Normal) Comments: Comments: [id number]; CALCIFEDOIL;PLASMA;RF Range: 0.00-0.30 :37 CBCD ALC 1.03 [...] (Abnormal) Range: 4.4-11.0 :37 CMP Comments: Comments: [id number]; CALCIFEDOIL;PLASMA;RF GAP 7 (Normal) Range: 5-15 CO2 [...] 7-18 GLU 93 mg/dL (Normal) Range: 70-110 59-Wbx-980531:37 LIPID Comments: Comments: wk3829; CALCIFEDOIL;PLASMA;RF VLDL 24 mg/dL (Normal) Range: 5-40 LDL 71 mg/dL (Normal) Range: 0-130 HDL 40 mg/dL (Normal) Comments: Reference RangeHDL <40 mg/dL Low HDL CholesterolHDL >or= 60 mg/dL High HDL Cholesterol CHOL 135 mg/dL (Normal) Comments: <200 mg/dL Rdiddcrzm831-071 mg/dL Borderline>240 mg/dL High Risk TRIG 122 mg/dL (Normal) Range: 0-199 Comments: Serum Triglycerides Reference IntervalNormal <150 mg/dLBorderline high 150 - 199 mg/dLHigh 200 - 499 mg/ dLVery High > or = 500 mg/dL 13-Fvz-782382:37 TSH 1.70 {uIU/mL} (Normal) Comments: Comments: [id number]; CALCIFEDOIL;PLASMA;RF Range: 0.358-3.74 73-Tsc-516771:30 VITD 57.3 mg/mL (Normal) Comments: Vitamin D 25(OH) Status RangeDeficiency <20 ng/mL (50nmol/L)Insuffciency 20 - 30 ng/mL (50 - 75 nmol/L)Sufficiency 30 - 100 ng/mL (75 - 250 nmol/L)Toxicity >100 ng/mL (>250 nmol/L) :27 URINE MICHI CULTURE-ZACHARY COL Comments: PATIENT NOT FASTINGPERFORMED BY: [facility] Mkvyku0116 [facility] [facility]UNC [facility] [id number] Information: SRC:UR [id number] COUNT ([id number]) Antimicrobial MIHEAD (Normal) Comments: S = Susceptible; [...] primarily for treating urinary tract infections. (CLSI, L176-P62,2009) Urine Final report (Abnormal) Culture,Comprehensive 93-Sfi-488858:11 Urinalysis, Office (44981) UA - LEUKOCYTE ESTERASE Trace (Normal) UA - NITRITE Negative (Normal) URINE UROBILINGN ZACHARY TIMED Normal mg/dL (Normal) UA - PROTEIN Negative mg/dL (Normal) UA - PH 6 (Abnormal) UA - BLOOD Hemolyzed Trace (Normal) UA - SPECIFIC GRAVITY 1.025 (Normal) UA - KETONES Small mg/dL (Normal) UA - BILIRUBIN Small (Normal) UA - GLUCOSE Negative (Normal) 16-Did-364986:28 MICHI CULTURE-OTHER (35480) Comments: PATIENT NOT FASTINGPERFORMED BY: JOHN [facility] Bjdhtg6674 [address] [place] [id number] Information: SRC:THRT [id number] Result 1 RRF (Normal) Comments: Routine respiratory christ Upper Respiratory Culture Final report (Normal) : ARUNA 42 U/L (Normal) Range: 25-115 10 13-Kzd-041355:10 CBCD ANC 5.0 {X10_3/uL} (Normal) Range: 2.0-7.7 [...] 4.2-5.4 WBC 6.8 K/mm3 (Normal) Range: 4.4-11.0 39-Spq-139142:10 CMP GAP 6 (Normal) Range: 5-15 CO2 [...] 7-18 GLU 104 mg/dL (Normal) Range: 70-110 27-Ymd-404376:10 LIPASE 69 U/L (Abnormal) Range: 70-290 86-Kts-793841:17 Urinalysis, Office (81356) UA - LEUKOCYTE ESTERASE Small (Normal) UA [...] (Normal) Range: 16.0-45.0 19 Comments: Performed at: [address] [id number] Director: Yury Cornelius PhD, Phone: [phone] : GOLD 194 ng/mL (Normal) Range: 8-252 19 :31 LIVER BID 0.17 mg/dL (Normal) Range: 0.00-0.30 BIT 0.50 mg/dL (Normal) Range: 0.00-1.00 ALT 134 U/L (Abnormal) Range: 12-78 ALK 111 U/L (Normal) Range: 50-136 AST 107 U/L (Abnormal) Range: 15-37 ALB 3.8 g/dL (Normal) Range: 3.4-5.0 TPROT 6.7 g/dL (Normal) Range: 6.4-8.2 :08 URINE MICHI CULTURE-ZACHARY COL Comments: PATIENT NOT FASTINGPERFORMED BY: [facility] [id number] Information: SRC:UR [id number] COUNT ([id number]) Antimicrobial MIHEAD (Normal) Comments: S = Susceptible; [...] Final report Culture,Comprehensive (Normal) :55 Urinalysis, Office (61321) UA - BILIRUBIN Negative (Normal) UA - BLOOD Negative (Normal) UA - GLUCOSE Negative (Normal) UA - KETONES Negative mg/dL (Normal) UA - LEUKOCYTE ESTERASE Trace (Normal) UA - NITRITE Negative (Normal) UA - PH 5.0 (Normal) Comments: 5.5 UA - PROTEIN Negative mg/dL (Normal) UA - SPECIFIC GRAVITY 1.025 (Normal) Comments: > 1.030 URINE UROBILINGN ZACHARY TIMED Normal mg/dL (Normal) 48-Nkl-198735:50 CHEST WITHOUT CONTRAST Radiology Report See Note [...] Payan M.D.December 29, 2012 at 4:08:08 PM [id number] ly Signed GP/GP If you are the referring physician and would like to consult with theradiologist who provided this interpretation, please contact Nicolas Boyer at [phone]. If this radiolo gist is unavailable, youwill [...] on 12/29/121610 Sign by: Bayron Payan MD 11-Bsn-25997:46 LIVER Radiology Report See Note (Normal) Comments: [...] size of the right kidney. The right sckamdhzrjgohi04.1 cm. Normal renal cortex. The right cortex measure s 0.9 cm. Thereisa 1.5 cm x 1.7 cm by 1.1-cm cyst along the medial portion of the kidney.There is no right hydronephrosis. IMPRESSION:Small right renal cyst. Signed:Bayron Payan M.D.December 16, 2012 at 10:11:37 AM [id number] Signed GP/GP If you are the referring physician and would like to consult with theradiologist who provided this interpretation, please contact Anish brewer M.D. at [phone]. If this radiologist is unavailable, youwill be directed to another radiologist to assist. If you are a patient with a question regarding this report, pleasecontactyour referr ing physician directly. Professional Interpretation Provided By: [employer], Phone , These documents contain legally protected [...] 12/16/12 1014 Sign by: Bayron Payan MD 94-Ggq-075542:17 EBGM EBNA > 8.0 {AI} (Abnormal) Range: 0.0-0.8 Comments: Negative <0.9Equivocal 0.9 - 1.0Positive >1.0 tEBINT Comment (Normal) Comments: EBV Interpretation Chart.Interpretation VCA-IgM EA-IgG VCA-IgG NA-ABS.Susceptible - - - -Acute Infection + +or- +or- -Convalescent Phas e +or- +or- + +Chronic or Reactivated - + + +or-Old Infection - - +or- ++ Antibody Present - Antibody AbsentPerformed at: [address] [id number] Director: Yury Cornelius PhD, Phone: [phone] EBVG > 8.0 {AI} (Abnormal) Range: 0.0-0.8 Comments: Negative <0.9Equivocal 0.9 - 1.0Positive >1.0 EBEAG <0.2 {AI} (Normal) Range: 0.0-0.8 Comments: Negative <0.9Equivocal 0.9 - 1.0Positive >1.0 EBVM < 0.2 {AI} (Normal) Range: 0.0-0.8 Comments: Negative <0.9Equivocal 0.9 - 1.0Positive >1.0 [id number] HEABC tHEPCCOMM Comment (Normal) Comments: Non reactive [...] (Normal) ttHEBSAG Negative (Normal) HEAM Negative (Normal) [id number] LIVER BID 0.12 mg/dL (Normal) Range: 0.00-0.30 BIT 0.40 mg/dL (Normal) Range: 0.00-1.00 ALT 182 U/L (Abnormal) Range: 12-78 ALK 122 U/L (Normal) Range: 50-136 AST 121 U/L (Abnormal) Range: 15-37 ALB 4.1 g/dL (Normal) Range: 3.4-5.0 TPROT 7.3 g/dL (Normal) Range: 6.4-8.2 92-Dwe-917263:17 TSH 1.08 {uIU/mL} (Normal) Range: 0.358-3.74 27-Jun-20128:46 [...] Signed:Clark D.O.June 27, 2012 at 5:23:04 PM [id number] Signed DL/DL If you are the referring physician and would like to consult with theradiologist who provided this interpretati on, please contact Mone Lazo at [phone]. If this radiologist is unavailable, you will [...] on 06/27/121727 Sign by: Kamilla Epperson DO 7-Uzi-829397:41 DEXA BONE DENSITY STUDY (HP) Radiology Report [...] Payan M.D.June 26, 2012 at 11:52:03 AM [id number] Signed GP/GP If you are the referring physician and would like to consult with theradiologist who provided this interpretation, please contact Nicolas Boyer at [phone]. If this radiologist is unavailable, youwill be directed to another radiologist to assist. If you are a patient with a question regarding this report, pleasecontactyour referring physician directly. Professional Interpretation Provided By: [employer], Phone , These documents contain lega lly [...] 06/26/12 1232 Sign by: Bayron Payan MD 51-Tnh-038581:08 T4, FREE (THYROXINE) Comments: PATIENT NOT FASTINGPERFORMED BY: [facility] [id number] Information: [id number] ([id number]) T4,Free(Direct) 1.34 ng/dL (Normal) Range: 0.82-1.77 :08 T3, FREE (TRIDOTHYRONINE) (26732) Comments: PATIENT NOT FASTINGPERFORMED BY: [facility] Nhfxlq5740 [facility] [id number] Triiodothyronine,Free,Serum 2.7 pg/mL (Normal) Range: 2.0-4.4 :08 TSH (31436) Comments: PATIENT NOT FASTINGPERFORMED BY: [facility] Cyidqd4625 [facility] [id number] TSH 1.370 {uIU/mL} (Normal) Range: 0.450-4.500 :58 [...] D deficiency has been defined by the [place] of[place]icine and an Endocrine Society practice guideline as alevel of serum 25-OH vitamin D less than 20 ng/mL (1,2).The Endocrine Society went on to further define vitamin Dinsufficiency as a level between 21 and 29 ng/mL (2).1. IOM ([place] of [employer]). 2010. Dietary reference intakes for calcium and D. [place]: The National Academies Press.2. Micky MF, Jessenia NC, Katrin CAMARGO, et al. Evaluation, treatment, and prevention of vitamin D deficiency: an Endocrine Society clinical practice guideline. JCEM. 2010; 96(7): 1911-30.Performed at: [address] Director: Yury Cornelius PhD, Phone: [phone] 22-Dec-20110:00 CHEST WITHOUT CONTRAST Radiology Report See [...] Signed BP/ BP Professional Interpretation Provided By: [facility], , To consult with a radiologist regarding this report, please call our [id number] juanita phillips @ [employer] on 12/22/11 1022 [...] D deficiency has been defined by the [place] and an Endocrine Society practice guideline as alevel of serum 25-OH vitamin D less than 20 ng/mL (1,2).The Endocrine Society went on to further define vitamin Dinsufficiency as a level between 21 and 29 ng/mL (2).1. IOM ([place] of [place]). 2010. Dietary reference intakes for calcium and D. [place]: The National Academies Press.2. Micky MF, Jessenia SYKES, Katrin CAMARGO, et al. Evaluation, treatment, and prevention of vitamin D deficiency: an Endocrine Society clinical practice guideline. JCEM. 2010; 96(7): 5475-30.Performed at: - [facility] [id number] Director: Alma Rodríguez MD, Phone: [phone] :[phone] CBCD,SMEAR DIFF RED CELL MORPH SeeNote [...] mg/dL (Normal) Range: 70-110 :47 VIT D,25 84631 81.4 ng/mL (Normal) Range: 30.0-100.0 Comments: Vitamin D deficiency has been defined by the [place] of[place] and an Endocrine Society practice guideline as alevel of serum 25-OH vitamin D less than 20 ng/mL (1,2).The Endocrine Society went on to further define vitamin Dinsufficiency as a level between 21 and 29 ng/mL (2).1. IOM ([place] of [place]). 2011. Dietary reference intakes for calcium and D. [place]: The National Academies Press.2. Micky MF, [place], Katrin CAMARGO, et al. Evaluation, treatment, and prevention of vitamin D deficiency: an Endocrine Society clinical practice guideline. JCEM. 2010; 96(7): 1911-30. Please note reference interval changePerformed at: [address] [id number] Director: Alma Rodríguez MD, Phone: [phone] 32-Cof-536815:11 CHEST WITHOUT CONTRAST Radiology Report See Note [...] >240 mg/dL High Risk :18 VIT D,25 36261 78.0 ng/mL (Normal) Comments: appt 11/14/10 Range: 32.0-100.0 Comments: Recent studies consider the lower limit of 32.0 ng/mL to bradley threshold for optimal health.William VIVAR. J Nutr. 2004;135(2):317-22.Performed at: - [facility] [place] [id number] Director: Alma Rodríguez MD, Phone: [phone] :[phone] COMP METABOLIC GAP 9 (Normal) Range: [...] >240 mg/dL High Risk :19 VIT D,25 90404 55.3 ng/mL (Normal) Range: 32.0-100.0 Comments: Recent studies consider the lower limit of 32.0 ng/mL to bradley threshold for optimal health.William BW. J Nutr. 2004;135(2):317-22.Performed at: [place] [address]Lab Director: Alma Rodríguez MD, Phone: [phone] 19-Dfm-98309:00 BILAT SCRN DIGITAL & CAD Radiology Report [...] CHOL 204 mg/dL (Abnormal) Comments: <200 mg/dL Lbmmhtvyz668-110 mg/dL Borderline>240 mg/dL High Risk HDL 48 mg/dL (Normal) Comments: Reference RangeHDL <40 mg/dL Low HDL CholesterolHDL >or= 60 mg/dL High HDL Cholesterol LDL 136 mg/dL (Abnormal) Range: 0-130 TRIG 102 mg/dL (Normal) Comments: Serum Triglycerides Reference IntervalNormal <150 mg/dLBorderline high 150 - 199 mg/dLHigh 200 - 499 mg/ dLVery High > or = 500 mg/dL :57 VIT D,25 43810 53.8 ng/mL (Normal) Range: 32.0-100.0 Comments: Recent studies consider the lower limit of 32.0 ng/mL to bradley threshold for optimal health.William VIVAR. J Nutr. 2004;135(2):317-22.Performed at: - [facility] [id number]Lab Director: Alma Rodríguez MD, Phone: [phone] :13 LIPID HDL 49 mg/dL (Normal) Comments: [...] CHOL 190 mg/dL (Normal) Comments: <200 mg/dL Wfrqnlvpx097-134 mg/dL Borderline>240 mg/dL High Risk :13 LIVER ALB 3.6 g/dL (Normal) Range: 3.4-5.0 ALK P 92 U/L (Normal) Range: 50-136 ALT 21 U/L (Normal) Range: 12-78 AST 15 U/L (Normal) Range: 15-37 D BILI 0.13 mg/dL (Normal) Range: 0.00-0.30 T BILI 0.50 mg/dL (Normal) Range: 0.00-1.00 T PROT 6.9 g/dL (Normal) Range: 6.4-8.2 :13 VIT D,25 88869 36.7 ng/mL (Normal) Range: 32.0-100.0 Comments: Recent studies consider the lower limit of 32.0 ng/mL to bradley threshold for optimal health.William VIVAR. J Nutr. 2004;135(2):317-22.Performed at: [address] [id number] Director: Milan Torres MD 6-Qrs-171372:43 ABDOMEN/PELVIS WITH CONTRAST Radiology Report See Note (Normal) Comments: Exam Number: [id number] CLINICAL:Abdominal pain. CT ABDOMEN AND PELVIS WITH [...] significant spondylolisthesis. Reported By: LUZ VALERA M.D. 15-Uds-17580:14 CBCD,SMEAR DIFF BAND 2 % (Normal) Range: [...] {uIU/mL} (Normal) Range: 0.358-3.74 :14 VIT D,25 71264 38.9 ng/mL (Normal) Range: 32.0-100.0 Comments: Recent studies consider the lower limit of 32.0 ng/mL to bradley threshold for optimal health.William VIVAR. J Nutr. 2004;135(2):317-22.Performed At: [facility] [place], [place] [id number] 43-Zxs-43816:10 C-REACTIVE PROT 40.70 mg/L (Abnormal) Range: 0.0-3.0 Comments: C-Reactive Protein (CRP) provides useful information for thediagnosis, therapy and monitoring of inflammatory processesand associated diseases. For the evaluation of Relative Riskfor Cardiovascular Dise ase, a High Sensitivity CRP (HSCRP)should be ordered. :10 ESR SED RATE 50 (Abnormal) Range: 0-20 :03 Urinalysis, Office (12631) UA - BILIRUBIN Negative (Normal) UA - [...] $$$ <=4 S TRIMETHOPRIM/SULFAMETHOXAZO $ >=320 R 56-Aku-61334:41 BILAT SCRN DIGITAL & CAD Radiology Report See Note (Normal) Comments: Exam Number: [id number] MAMMOGRAM, BILATERAL SCREENING DIGITAL AND CAD HISTORYRoutine [...] mammograms werealso examined with computer-aided detection software ([employer] Reported By: SLOANE TRIVEDI M.D. :55 [...] T PROT 6.8 g/dL (Normal) Range: 6.4-8.2 96-Zwr-395596:22 DHEA SULF 4697 < 15 ug/dL (Normal) [...] - 9.1 <0.2 Postmenopausal 23.0 - 116.3 96-Kcw-111837:22 LUTEIN HOR 4283 15.8 m[iU]/mL (Normal) Range: [...] 15.9 - 54.0 Contraceptives 0.7 - 5.6 71-Sdz-407221:22 PROLACTIN 4465 10.3 ng/mL (Normal) Range: 2.8-29.2 [...] 208.5 Postmenopausal 1.8 - 20.3Per formed At: [address] [id number] 14-Rka-303060:22 ROUTINE UA BILIRUBIN URINE SeeNote (Normal) Comments: [...] Report See Note (Normal) Comments: Exam Number: [id number] CLINICAL: Headaches, memory loss MRI BRAIN WITH [...] a demonstrated aneurysm or occlusion of the cowl[place] of [place]. There is no extra-axial fluid [...] {uIU/mL} (Normal) Range: 0.34-4.82 :08 VIT D,25 92614 38.2 ng/mL (Normal) Range: 32.0-100.0 Comments: Recent studies consider the lower limit of 32.0 ng/mL to bradley threshold for optimal health.William VIVAR. J Nutr. 2004;135(2):317-22.Performed At: [address] [id number] :08 VITAMIN B12 316 pg/mL (Normal) Range: 211-911 :52 BRAIN/HEAD WITHOUT CONTRAST Radiology Report See Note (Normal) Comments: Exam Number: [id number] CLINICAL:58 year old female with 39 year [...] further evaluation. Reported By: SLOANE VARGAS M.D. 47-Rmq-124319:49 KIDNEY (HP) Radiology Report See Note (Normal) Comments: Exam Number: [id number] CLINICAL:Renal insufficiency RENAL ULTRASOUND COMPARISON:None. FINDINGS: The [...] 3.5-5.1 NA 141 mmol/L (Normal) Range: 136-145 09-Lko-842127:25 CHEST, PA AND LATERAL (MT) Radiology Report See Note (Normal) Comments: Exam Number: [id number] CHEST PA AND LATERAL STATEMENTLeft sided rib [...] Comments: GLU,2HPPG 75gm GLUC PPG GLUP from 0606:D32221D. Comments: Glucose result less than 50 mg/dL [...] 6.7 g/dL (Normal) Range: 6.4-8.2 :42 EBVIgG/M 052479 EB-EA IgG 50864 143 AU/mL (Abnormal) Range: 0-99 Comments: Negative <100 Equivocal 100 - 120 Positive >120 EB-NAg HbJ99120 1871 AU/mL (Abnormal) Range: 0-99 Comments: Negative <100 Equivocal 100 - 120 Positive >120 EB-VCA [id number] 3769 AU/mL (Abnormal) Range: 0-99 Comments: Negative <100 Equivocal 100 - 120 Positive >120 EB-VCA [id number] 13 AU/mL (Normal) Range: 0-99 Comments: Negative [...] + Antibody Present - Antibody AbsentPerformed At: [facility] [place], [place] [id number] :42 ROUTINE UA BILIRUBIN URINE SeeNote (Normal) [...] Report See Note (Normal) Comments: Exam Number: [id number] MAMMOGRAM, BILATERAL SCREENING DIGITAL AND CAD HISTORYRoutine [...] werealso examined with computer-aided detection softw are ([employer], [employer] Reported By: SLOANE TRIVEDI M.D. 1-Sfs-751328:34 BIBIANA-D [id number] BIBIANA-DIRECT 51 AU/mL (Normal) Range: 0-99 Comments: [...] {IU/mL} (Normal) Range: 0.0-13.9 Comments: Performed At: [address] [id number] :34 TSH 2.12 {uIU/mL} (Normal) Range: 0.34-4.82 [...] $$$ <=16 S TRIMETHOPRIM/SULFAMETHOXAZ $$ <=10 S 83-Hxu-679866:08 ROUTINE UA BILIRUBIN URINE SeeNote (Normal) Comments: [...] 0.2 EU/dl (Normal) Range: 0.2 - 1.0 07-Qbc-475557:45 CULTURE, URINE URINE CULTURE See Note {CFU/mL} [...] Indication: Migraine Planned Observations T4, FREE (THYROXINE) (92791)Indication: Thyroid nodule On: Request T3, FREE (TRIDOTHYRONINE) (83323)Indication: Thyroid nodule On: Request TSH (52056)Indication: Thyroid nodule On: Request CBC W/AUTO DIFF WBC (38314)Indication: Mixed hyperlipidemia On: Request METABOLIC PANEL, COMPREHENSIVE (28195)Indication: Mixed hyperlipidemia On: Request LIPOPROTEIN, BLD, BY NMR (93076)Indication: Mixed hyperlipidemia On: Request CALCIFEDIOL (47807)Indication: Vitamin D deficiency, unspecified On: Request C-REACT PROT HIGH SENS(hsCRP) (06023)Indication: Pain in unspecified joint On: Request Sedimentation Rate-ESR (94735)Indication: Pain in unspecified joint On: Request Metabolic Panel, Comprehensive (59286)Indication: Pain in unspecified joint On: Request CBC (Auto) (22224)Indication: Pain in unspecified joint On: 1-Crw-259377:27 Request FECAL OCCULT- Tubes sent home (06160)Indication: Encounter for screening for malignant neoplasm of colon (Renamed from Special screening for malignant neoplasms, colon) On: 8-Jmv-473123:14 Request CBC WITH MANUAL DIFF (88693)Indication: Abnormal WBC count On: 86-Nxm-828604:12 Request METABOLIC PANEL, COMPREHENSIVE (19547)Indication: Mixed hyperlipidemia On: :15 Request CBC W/AUTO DIFF WBC (19013)Indication: Mixed hyperlipidemia On: :15 Request LIPID PANEL (26359)Indication: Mixed hyperlipidemia On: :15 Request TSH (57676)Indication: Anxiety On: :15 Request CALCIFIDIOL (78543) VIT D 25Indication: Vitamin D deficiency, unspecified On: :15 Request CALCIFEDIOL (02608)Indication: Vitamin D deficiency, unspecified On: 20-Sep-20159:12 Request EBV Panel (41512)Indication: Fatigue On: 14-Sqr-913119:51 Request SPEP (40275)Indication: Abnormal CBC On: 53-Cjf-315706:43 Request UPEP (95787)Indication: Abnormal CBC On: 23-Dxe-161583:30 Request serum free light chains (67402)Indication: Abnormal CBC On: 79-Nbs-410788:29 Request urine immunofixation (28463)Indication: Abnormal CBC On: 74-Qny-284641:29 Request serum immunofixation (80290)Indication: Abnormal CBC On: 96-Fpy-611214:29 Request LIPID PANEL (25411)Indication: Mixed hyperlipidemia On: 03-Jdq-193946:46 Request CALCIFIDIOL (57222) VIT D 25Indication: Vitamin D deficiency, unspecified On: 64-Ydg-037847:41 Request METABOLIC PANEL, COMPREHENSIVE (77268)Indication: Mixed hyperlipidemia On: :12 Request LIPID PANEL (71566)Indication: Mixed hyperlipidemia On: 19-Bgp-860177:12 Request CBC WITH MANUAL DIFF (82433)Indication: postmenopausal without estrogen On: :02 Request METABOLIC PANEL, COMPREHENSIVE (13221)Indication: postmenopausal without estrogen On: 07-Rga-873012:02 Request CALCIFIDIOL (62375) VIT D 25Indication: Vitamin D deficiency, unspecified On: 10-Cua-147915:01 Request CALCIFEDIOL (98210)Indication: Vitamin D deficiency, unspecified On: :26 Request CBC WITH MANUAL DIFF (80723)Indication: Mixed hyperlipidemia On: :26 Request Metabolic Panel, Comprehensive (22272)Indication: Mixed hyperlipidemia On: :26 Request Lipid Panel (74716)Indication: Mixed hyperlipidemia On: :26 Request METABOLIC PANEL, COMPREHENSIVE (64568)Indication: Mixed hyperlipidemia On: :47 Request LIPID PANEL (23857)Indication: Mixed hyperlipidemia On: :47 Request CALCIFIDIOL (51384) VIT D 25Indication: Vitamin D deficiency, unspecified On: :47 Request EBV Panel (73104)Indication: Hepatitis On: :38 Request CMV IGM ANTBDY (55839)Indication: Hepatitis On: :38 Request CMV ANTIBODY (30133)Indication: Hepatitis On: :38 Request CALCIFEDIOL (22394)Indication: Mixed hyperlipidemia On: 47-Lsw-739034:56 Request CBC with manual diff (99416)Indication: Mixed hyperlipidemia On: :56 Request Metabolic Panel, Comprehensive (06427)Indication: Mixed hyperlipidemia On: :56 Request TSH (THYROID STIMULATING HORMONE) (87869)Indication: Mixed hyperlipidemia On: :56 Request LIPID PANEL (19050)Indication: Mixed hyperlipidemia On: 89-Bjq-809062:55 Request HEPATIC FUNCTION PANEL (02527)Indication: Mixed hyperlipidemia On: 80-Fwj-109648:55 Request HEPATIC FUNCTION PANEL (34238)Indication: Unspecified Diagnosis On: 41-Yaw-190214:25 Request Rapid Strep Test, Office (27514)Indication: Pharyngitis, acute On: 97-Xmz-597988:05 Request Metabolic Panel, Comprehensive (34811)Indication: Epigastric Pain (Renamed from Abdominal pain, epigastric) On: 34-Lva-317757:24 Request Comments: labs stat. Lipase (01354)Indication: Epigastric Pain (Renamed from Abdominal pain, epigastric) On: 31-Zwn-783363:24 Request Amylase (71930)Indication: Epigastric Pain (Renamed from Abdominal pain, epigastric) On: 67-Tls-939799:24 Request CBC, Platelets & Auto Diff (00729)Indication: Epigastric Pain (Renamed from Abdominal pain, epigastric) On: 39-Zuq-756496:24 Request URINE MICHI CULTURE-IDENTIFICATN (88267)Indication: Hematuria (Renamed from Blood in the urine) On: 74-Cne-466311:23 Request ASM (ANTI SMOOTH MUSCLE ANTIBODY) (06638)Indication: Abnormal finding of blood chemistry, unspecified On: 59-Wsx-863876:26 Request CERULOPLASMIN (44805)Indication: Abnormal finding of blood chemistry, unspecified On: :26 Request FERRITIN (27181)Indication: Abnormal finding of blood chemistry, unspecified On: 11-Hke-133545:26 Request HEPATIC FUNCTION PANEL (19679)Indication: Mixed hyperlipidemia On: 51-Goo-955956:47 Request HEPATIC FUNCTION PANEL (22856)Indication: Abnormal finding of blood chemistry, unspecified On: 04-Ztf-630012:17 Request Comments: 1 week HEPATIC FUNCTION PANEL (84866)Indication: Migraine On: :26 Request TSH (33587)Indication: Migraine On: 31-Aya-639988:26 Request HEPATITIS PANEL (22741)Indication: Abnormal finding of blood chemistry, unspecified On: 26-Lzw-491392:25 Request EBV Panel (81473)Indication: Abnormal finding of blood chemistry, unspecified On: 52-Cbp-515133:24 Request Vitamin D Hydroxy (36733)Indication: Vitamin D deficiency, unspecified On: 93-Yze-851391:42 Request CBC WITH MANUAL DIFF (20454)Indication: Irritable bowel syndrome On: :42 Request METABOLIC PANEL, COMPREHENSIVE (33214)Indication: Irritable bowel syndrome On: 85-Jva-726175:42 Request LIPID PANEL (06249)Indication: Mixed hyperlipidemia On: 41-Kix-752441:42 Request CALCIFEDIOL (25637)Indication: Vitamin D deficiency, unspecified On: 77-Dop-81535:06 Request CBC with manual diff (58935)Indication: Mixed hyperlipidemia On: :06 Request Lipid Panel (89667)Indication: Mixed hyperlipidemia On: :06 Request Metabolic Panel, Comprehensive (46532)Indication: Mixed hyperlipidemia On: :06 Request Vitamin D Hydroxy (53509)Indication: Vitamin D deficiency, unspecified On: :17 Request CBC WITH MANUAL DIFF (74741)Indication: Lung nodule On: :17 Request METABOLIC PANEL, COMPREHENSIVE (72431)Indication: Irritable bowel syndrome On: :17 Request LIPID PANEL (57934)Indication: Mixed hyperlipidemia On: :07 Request C-REACTIVE PROTEIN (71150)Indication: Chest pain On: :20 Request SED RATE ERYTHROCYTE (54855)Indication: Chest pain On: :20 Request METABOLIC PANEL, COMPREHENSIVE (50989)Indication: Chest pain On: :20 Request CBC WITH MANUAL DIFF (76029)Indication: Chest pain On: :20 Request D-Dimer (37527)Indication: Chest pain On: :20 Request Comments: stat METABOLIC PANEL, COMPREHENSIVE (97520)Indication: Osteopenia On: 83-Yjg-671338:00 Request TSH (15280)Indication: Depressive disorder On: 36-Pck-749760:58 Request LIPID PANEL (29107)Indication: Mixed hyperlipidemia On: 19-Zty-100242:57 Request Vitamin D Hydroxy (69923)Indication: Vitamin D deficiency, unspecified On: 57-Kgz-216491:57 Request Metabolic Panel, Comprehensive (07082)Indication: Hypopotassemia On: 28-Lka-255221:58 Request CALCIFEDIOL (89746)Indication: Vitamin D deficiency, unspecified On: :58 Request Lipid Panel (19335)Indication: Mixed hyperlipidemia On: 64-Baa-944105:57 Request METABOLIC PANEL, COMPREHENSIVE (50753)Indication: Migraine On: 68-Sfg-484386:53 Request LIPID PANEL (20794)Indication: Mixed hyperlipidemia On: 69-Alp-929935:53 Request Vitamin D Hydroxy (48188)Indication: Vitamin D deficiency, unspecified On: 53-Kia-703556:53 Request Vitamin D Hydroxy (65102)Indication: Vitamin D deficiency, unspecified On: 67-Rux-203829:49 Request METABOLIC PANEL, COMPREHENSIVE (30249)Indication: Irritable bowel syndrome On: 39-Gjw-451850:48 Request LIPID PANEL (63447)Indication: Mixed hyperlipidemia On: 67-Ryu-220319:48 Request METABOLIC PANEL, COMPREHENSIVE (66466)Indication: Hypopotassemia On: :56 Request LIPID PANEL (68690)Indication: Mixed hyperlipidemia On: 01-Oqa-287538:56 Request Vitamin D Hydroxy (33854)Indication: Vitamin D deficiency, unspecified On: 79-Pud-908166:56 Request HEPATIC FUNCTION PANEL (63622)Indication: Mixed hyperlipidemia On: :07 Request LIPID PANEL (05383)Indication: Mixed hyperlipidemia On: 85-Hjl-978637:07 Request URINE MICHI CULTURE-IDENTIFICATN (52125)Indication: Dysuria On: 4-Ioq-388689:40 Request URINALYSIS W/O MICRO (20527)Indication: Other signs and symptoms in breast On: 97-Roq-053344:31 Request METABOLIC PANEL, COMPREHENSIVE (45461)Indication: Other signs and symptoms in breast On: 30-Yqg-509724:31 Request TSH (05577)Indication: Other signs and symptoms in breast On: 30-Aiz-415735:31 Request Vitamin D Hydroxy (15324) On: 9-Ahc-002155:30 Request CBC WITH MANUAL DIFF (19631) On: 4-Gti-301090:30 Request METABOLIC PANEL, COMPREHENSIVE (32610) On: 2-Mjr-264162:30 Request VITAMIN B-12 (CYANOCOBALAMIN) (84050) On: 1-Dda-157778:30 Request TSH (15414) On: 3-Ksq-516085:30 Request Metabolic Panel, Basic (49555) On: :21 Request HEPATIC FUNCTION PANEL (29598)Indication: Mixed hyperlipidemia On: 86-Amf-467799:21 Request LIPID PANEL (70065)Indication: Mixed hyperlipidemia On: 04-Thp-512046:21 Request METABOLIC PANEL, COMPREHENSIVE (93847)Indication: Hypoglycemia On: 42-Iop-229573:51 Request LIPID PANEL (52790)Indication: Low HDL (under 40) On: 32-Hso-067520:45 Request Glucose, PP/2 Hour (04952)Indication: Fatigue On: : Request VITAMIN B-12 (CYANOCOBALAMIN) (36919)Indication: Fatigue On: : Request URINALYSIS W/O MICRO (60460)Indication: Fatigue On: : Request TSH (10259)Indication: Fatigue On: : Request CBC WITH MANUAL DIFF (10827)Indication: Fatigue On: : Request METABOLIC PANEL, COMPREHENSIVE (02075)Indication: Fatigue On: : Request BIBIANA (ANTINUCLEAR ANTIBODY) (02596)Indication: Pain in unspecified joint On: Request C-REACTIVE PROTEIN (08793)Indication: Pain in unspecified joint On: :28 Request CBC WITH MANUAL DIFF (02977)Indication: Pain in unspecified joint On: : Request METABOLIC PANEL, COMPREHENSIVE (94271)Indication: Pain in unspecified joint On: :28 Request RHEUMATOID FACTOR-QUANT (95305)Indication: Pain in unspecified joint On: :28 Request SED RATE ERYTHROCYTE (18717)Indication: Pain in unspecified joint On: :28 Request TSH (88527)Indication: Pain in unspecified joint On: :28 Request METABOLIC PANEL, COMPREHENSIVE (76223)Indication: Low HDL (under 40) On: :26 Request LIPID PANEL (61335)Indication: Low HDL (under 40) On: 0-Yjp-183866:26 Request LIPID PANEL (09456)Indication: Low HDL (under 40) On: :41 Request HEPATIC FUNCTION PANEL (52173)Indication: Low HDL (under 40) On: 23-Mqk-783002:41 Request Comments: 4 mos LIPID PANEL (18353)Indication: Low HDL (under 40) On: 45-Hgd-322919:26 Request Comments: 3 mos HEPATIC FUNCTION PANEL (35295)Indication: Low HDL (under 40) On: 20-Hgv-950913:26 Request Comments: 3 mos Planned Procedures CXR PA & LAT (75229)By: Nii ABREU, On: 07-Jul-2018 Intent Rylee Nelson DO Flu Vaccine (Quadrivalent) 48551Pe: On: 27-May-2018 Intent Rylee Bales DO DO, Comments: Lot #[id number]-L dltd, IMDose prefilled syringegiven by: Nohemy reviewed and ABN signed Rylee Wax CurettesBy: Rylee Bales DO On: 12-Feb-2018 Intent Rylee Bales DO Ear Irrigation (13524)By: Nii On: 12-Feb-2018 Intent Rylee ABREU DO, Kathleen Comments: small amount of yellow was irrigated out of right ear, patient tolerated without difficulty ear wax currette used to remove remainder of wax X-RAY OF SHOULDER, TWO VIEWS On: 12-Feb-2018 Intent (30531)By: Rylee Bales DO, DO, Kathleen ELECTROCARDIOGRAM, COMPLETE (ECG) On: 12-Feb-2018 Intent (09458)By: Rylee Bales DO, DO, Kathleen Ultrasound - ThyroidBy: Nii ABREU, On: 30-Jan-2018 Intent Rylee Nelson DO Wax CurettesBy: Dasia Oliver On: 12-Sep-2017 Intent Ear Irrigation (27634)By: Benito, On: 12-Sep-2017 Intent Dasia X-RAY OF HAND, THREE VIEWS On: 16-Aug-2017 Intent (51024)By: Rylee Bales DO, DO, Kathleen Radiology - Abdomen SeriesBy: On: 02-Jul-2017 Intent Rylee Bales DO, DO, Comments: FLAT PLATE Rylee ACUTE ABDOMINAL SERIES (76778)By: On: 27-Jun-2017 Intent Rylee Bales DO, DO, Kathleen Flu Vaccine (Quadrivalent) 82940Dg: On: 28-May-2017 Intent Rylee Bales DO, DO, Comments: lot: [id number]: 01/06/18ite/route: L freddy, IMamt: 0.5mlVIS and ABN signed when applicableChelsea, HAND VIOLIN MAKER Rylee SCREENING DIGITAL TOMOSYNTHESIS OF On: 28-May-2017 Intent BREAST (44149)By: Rylee Bales DO, DO Rylee THYROID ULTRASOUND (50075)By: On: 02-Jan-2017 Intent Sherrell Bales DOhleen Nii DO, Rylee Doppler Ultrasound OtherBy: Nii On: 15-Aug-2016 Intent Rylee ABREUon DO Rylee Comments: left lower extremity PNEUM VAC ADLT/IMUMNOSPR, SBC/INTRM On: 07-May-2016 Intent ([id number])By: Rylee Bales DO Comments: Lot:[id number]:11/24/17Dose:0.5mgRoute:imSite:r arm Given By:DORIS signed Rylee Bales DO DEXA SCAN AXIAL SKELETON ([id number])By: On: 25-Apr-2016 Intent Rylee Bales DO, DO, Kathleen MAMMOGRAM, SCREENING, BOTH BREAST On: 25-Apr-2016 Intent ([id number])By: Rylee Bales DO, DO, Kathleen Flu Vaccine (Quadrivalent) [id number]: On: 25-Apr-2016 Intent Hung Santos Comments: FLUlot: [id number]:01/05site:Lt deltoidroute:IMdose:.5mlDEMICK, MA DEXA SCAN AXIAL SKELETON ([id number])By: On: 01-Mar-2016 Intent Rylee Bales DO, DO, Kathleen Radiology - ChestBy: Ilsa PEANUT SHAKER, On: 13-Jun-2015 Intent Marlen Phillips Flu Vaccine (Quadrivalent) 07731Dq: On: 27-Apr-2015 Intent Manda Higginbotham MD Comments: Lot:[id number]:01/19/16Dose:0.5mLRoute:IMSite:L DltdGiven By:DORIS signed MAMMOGRAM, SCREENING, BOTH BREAST On: 15-Mar-2015 Intent ([id number])By: Manda Higginbotham MD ELECTROCARDIOGRAM, COMPLETE (ECG) On: 30-Dec-2014 Intent ([id number])By: Rylee Bales DO Comments: nsr no acute chg Nii ABREU Rylee Prevnar 13 ([id number])By: Anahy KRISHNAN, On: 03-Aug-2014 Intent Manda Torres SPECIMEN HANDLING/TRANSPORT On: 14-Jun-2014 Intent ([id number])By: Marlen Rosenbaum CNP IMMUNIZ ADMNIN, 1 VAC, SNGL/COMBO On: 03-May-2014 Intent ([id number])By: Joey, FLU VAC, SPLIT, >3 YEARS, INTRAMUSC On: 03-May-2014 Intent ([id number])By: Manda Higginbotham MD Comments: Lot:[id number]:01/18/15Dose:0.5mLRoute:IMSite:L DltdGiven By:DORIS signed MAMMOGRAM, SCREENING, BOTH BREAST On: 09-Feb-2014 Intent ([id number])By: Manda Higginbotham MD Comments: due 07-04 DEXA SCAN AXIAL SKELETON ([id number])By: On: 09-Feb-2014 Intent Manda Higginbotham MD Comments: due 07-04 Eprescribed prescriptions On: 19-Nov-2013 Intent ([id number])By: Rylee Bales DO, DO, Kathleen Eprescribed prescriptions On: 02-Sep-2013 Intent ([id number])By: Marlen Rosenbaum CNP VAC, SPLIT, >3 YEARS, INTRAMUSC On: 26-May-2013 Intent ([id number])By: Manda Higginbotham MD Comments: Lot:[id number]:Dose:0.5mLRoute:IMSite:L DltdGiven By:DORIS signed IMMUNIZ ADMNIN, 1 VAC, SNGL/COMBO On: 26-May-2013 Intent ([id number])By: Francesca Crystal MAMMOGRAM, SCREENING, BOTH BREASTS On: 14-May-2013 Intent ([id number])By: Manda Higginbotham MD Eprescribed prescriptions On: 30-Dec-2012 Intent ([id number])By: Alaina Patricia LPN Ultrasound - LiverBy: Miguel ABREU, On: 10-Dec-[address] - ChestBy: Miguel DO Iwona A On: 09-Dec-2012 Intent Comments: december Eprescribed prescriptions On: 09-Dec-2012 Intent ([id number])By: Zabrina Farmer Eprescribed prescriptions On: 01-Aug-2012 Intent ([id number])By: Zabrina Farmer EKG ([id number])By: Zabrina Farmer On: 10-Jun-2012 Intent Comments: ekg showed normal sinus rhythym, normal axis, no acute st/t wave changes Eprescribed prescriptions On: 10-Jun-2012 Intent ([id number])By: Hailey Rivera DOa A DXA, BONE DENSITY, AXIAL SKELETON On: 10-Jun-2012 Intent ([id number])By: Miguel ABREU Iwona A CT - ChestBy: Miguel DO Iwona A On: 10-Jun-2012 Intent Eprescribed prescriptions On: 10-Jun-2012 Intent ([id number])By: Zabrina Farmer Breast Screening - BilateralBy: On: 02-Jun-2012 Intent Iwona Rivera DO A TDAP VACCINE >7 IM ([id number])By: On: 04-Dec-2011 Intent Zabrina Farmer Comments: lot [id number] 06/02, L arm IM, perfileld Alaina CT - ChestBy: Hailey Rivera DOa A On: 04-Dec-2011 Intent FLU VAC, SPLIT, >3 YEARS, INTRAMUSC On: 29-May-2011 Intent ([id number])By: Zabrina Farmer Comments: Lot: [id number]: 01/19/12Site: Lt DeltoidDose: Prefilled DoseARiding, FISH TENDER CT - ChestBy: Miguel ABREU Iwona A On: 29-May-2011 Intent IMMUNIZ ADMNIN, 1 VAC, SNGL/COMBO On: 29-May-2011 Intent ([id number])By: Zabrina Farmer Pulse Oximetry ([id number])By: Miguel ABREU, On: 16-Feb-2011 Intent Iwona A Comments: 99 CT - ChestBy: Miguel ABREU Iwona A On: 16-Feb-2011 Intent Comments: stat-pe protocol- call wet read Radiology - ChestBy: Ilsa SELLERS, On: 06-Feb-2011 Intent Isabel Kbjaxaqkz-Hus-Mluak ([id number])By: On: 06-Feb-2011 Intent Marlen Rosenbaum CNP Eprescribed prescriptions On: 03-Jan-2011 Intent ([id number])By: Iwona Rivera DO EKG ([id number])By: Manda Higginbotham MD On: 15-Dec-2010 Intent Eprescribed prescriptions On: 17-Nov-2010 Intent ([id number])By: Iwona Rivera DO MAMMOGRAM, SCREENING, BOTH BREASTS On: 06-Mar-2010 Intent ([id number])By: Iwona Rivera DO DXA, BONE DENSITY, AXIAL SKELETON On: 06-Mar-2010 Intent ([id number])By: Iwona Rivera DO CT - Abdomen & PelvisBy: Miguel ABREU, On: 22-Aug-2009 Intent Iwona Cevallos PNEUM VAC ADLT/IMUMNOSPR, SBC/INTRM On: 22-Apr-2009 Intent ([id number])By: Samantha Kumar RN IMMUNIZ ADMNIN, 1 VAC, SNGL/COMBO On: 22-Apr-2009 Intent ([id number])By: Samantha Kumar RN Comments: Lot #: [id number] date: mo given: 0.5 mlRoute: IMSite given: right deltoidGiven by: Ban Salas LPN IMMUNIZ ADMNIN, 1 VAC, SNGL/COMBO On: 22-Apr-2009 Intent ([id number])By: Samantha Kumar RN FLU VAC, SPLIT, >3 YEARS, INTRAMUSC On: 22-Apr-2009 Intent ([id number])By: Samantha Kumar RN Comments: Lot #: [id number] date: mount given: 0.5 mlRoute: IMSite given: left deltoidGiven by: Ban Salas LPN Pulse Oximetry ([id number])By: Wai On: 15-Apr-[address] - Brain/HeadBy: Iwona Rivera DO On: 19-Nov-2008 Intent Radiology - ChestBy: Ilsa SELLERS, On: 14-Oct-2008 Intent Marlen Phillips Pulse Oximetry ([id number])By: Ilsa On: 14-Oct-2008 Intent Marlen SELLERS Comments: done BC Aerosol Treatment ([id number])By: Ilsa On: 14-Oct-2008 Intent Marlen SELLERS Comments: done BC Spirometry ([id number])By: Darian, On: 12-Oct-2008 Intent Zabrina Comments: good effort and curve normal MAMMOGRAM, SCREENING, BOTH BREASTS On: 06-Oct-2008 Intent ([id number])By: Iwona Rivera DO Aerosol Treatment ([id number])By: Ilsa On: 08-Sep-2008 Intent MARLOMarlen Pulse Oximetry ([id number])By: Ilsa On: 08-Sep-2008 Intent Marlen SELLERS EKG ([id number])By: Rylee Bales DO On: 02-Jul-2008 Intent Rylee Bales DO Comments: nsr nothing acute-- v1-v1 lead placement(female) FLU VAC, SPLIT, >3 YEARS, INTRAMUSC On: 11-Jun-2008 Intent ([id number])By: Zabrina Farmer Comments: inj given left deltoid no complicationslot:[id number]:12/28 IMMUNIZ ADMNIN, 1 VAC, SNGL/COMBO On: 11-Jun-2008 Intent ([id number])By: Zabrina Farmer EKG ([id number])By: Iwona Rivera DO On: 22-Dec-2007 Intent Comments: ekg showed normal sinus rhythym, normal axis, no acute st/t wave changes MAMMOGRAM, SCREENING, BOTH BREASTS On: 25-Aug-2007 Intent ([id number])By: Iwona Rivera DO IMMUNIZ ADMNIN, 1 VAC, SNGL/COMBO On: 23-May-2007 Intent ([id number])By: Iwona Rivera DO FLU VAC, SPLIT, >3 YEARS, INTRAMUSC On: 23-May-2007 Intent ([id number])By: Iwona Rivera DO Comments: given 0.5cc im in left deltoid lot#[id number] exp. Instructions Name Dates Details Nonsmoker : [...] The patient does have durable power of ip technology transactions attorney and living will. The patient has [...] The patient does have durable power of ip technology transactions attorney and living will. The patient has noticed staying at home rather than doing something new or going out and lack of energy (thinks it is from the lupus). Other providers contributing to the patient's care are hat sizer (dr. chavez), urologist (dr. bhatti) and ot her: (animal husbandry manager dr. beaulieu). 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 Rec End: 30-Dec-2014 10:10 ent symptoms [...] and did breast exam-- had lump saw [place]- and he couldnt find it - so they refferred her to doctor at the [facility] and workup was neg, [ADDITIONAL REASON] Follow [...] 6 (Saturday is my first day of alf so I will be getting more) hours per night. The medical issues the patient is following up for include other (rib pain on R side). 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 [facility] P[facility]Supplement Fabricio Torres; ban guarantor
--- OUTSIDE RECORDS SUMMARY | 2018-10-09 01:42 | XMS RPT_ITS | Continuity of Care Document ---
:1950 Author Organization [facility] Address [address] [place] [address] Phone Care Team Providers Name Role Phone Rylee Bales DO Unavailable Jonas KRISHNAN, Faudmo Porter Unavailable Dr. Joaquim Hough Unavailable Deuce Soto Unavailable Herb KRISHNAN, Jj Phillips Unavailable Merari Lam [facility]available [facility] Binta Cruz Unavailable Unavailable Makenzie [...] 714.9) Comments: see Dr. deutsch. 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 from Lupus. get eye exam and [...] if get off by a pound watch thta Status: Active Osteopenia (M85.80, 733.90) Comments: 12-12 [...] DO, DO, Kathleen Start : 15-Apr-2018 Active Flunisolide 25 MCG/ACT (0.025%) Nasal Solution 1 (one) Dwight each nostril qd for 0 days Quantity: 1 {Dwight} Refills: 2 Ordered:12-Feb-2018 MELISSA Carreno Start : [...] Nasonex 50 MCG/ACT Nasal Suspension 1 (one) Dwight qd each nostril for 0 days Quantity: [...] days Quantity: 6 {Tablet} Refills: 0 Ordered:14-Jun-2014 Marlen Rosenbaum CNP Start : 14-Jun-2014 End : 16-Jun-2014 [...] days Quantity: 21 {Tablet} Refills: 0 Ordered:01-Jan-2018 Nii ABREU JomarLilliam JomarRylee Start : 01-Jan-2018 End : 08-Jan-2018 Inactive [...] days Quantity: 3 {Tablet} Refills: 4 Ordered:13-Jun-2015 Danielelaina 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 CALCIUM 500 + D, [id number]-LX (PO Tab) 2 tabs qd for 0 [...] days Quantity: 90 {Tablet_Disperse} Refills: 3 Ordered:04-Dec-2011 Daphney QUIÑONESTrish Start : 04-Dec-2011 End : 17-Dec-2012 Discontinued Comments:This order discontinued per [facility]. LACTULOSE, 10GM/15ML (Oral Solution) 60 ml Solution qd for 90 days Refills: 3 Ordered:09-Dec-2012 Fast DO, Iwona A Start : 09-Dec-2012 End : 09-Dec-2012 Discontinued LEXAPRO, 10MG (Oral Tablet) 1 (one) Tablet qd for 0 days Quantity: 30 {Tablet} Refills: 3 Ordered:19-Mar-2007 Kristyn QUIÑONES Roxana Start : 19-Mar-2007 End : 03-Apr-2007 Discontinued [...] order discontinued per [facility]. VITAMIN D (ERGOCALCIFEROL), 27336QRVS (Oral Capsule) 1 (one) Capsule Capsule once [...] Summary (1) Result: Comments: See Note; NOTES: [facility] [address] [place] [address]. [address] [place] [address] Fax REHABILITATION SERVICES RODERICKAR GE SUMMARY MR#: [id number] Acct: [id number] Name: SUSANNE TORRES Rep #: [id number] : 1950 68 From: Mitch Leonard DPT, [...] will also do machines as instructed at [employer]. Still avoid pulling weeds and heavy lifting [...] please feel free to call me at [phone]. Thank you for the referral of this patient. Sincerel y, Mitch Leonard, DPT, OC <Electronically signed by Mitch Leonard DPT, OCS, CSCS> 03/20/18 0932 CC: Rylee Bales DO EBG Signed 04-Mar-2018 Re-Evaluation - PT (1) Result: Comments: See Note; NOTES: [facility] [address] [place], [place] [address] Fax [facility]#: [id number] Acct: [id number] Name: SUSANNE TORRES Rep #: [id number] : 1950 68 From: Mitch Leonard DPT, [...] the blue while I was sitting at restorationist my shldr just starting hurting worse. Reports the pain to be located in the front and under the shldr joint. Objective/Function: Review of postural maintainence so as to not exacerbate symptoms while sitting at restorationist. Pt states, I guess I wasn't really paying a ttention to how I was sitting. Minimal progression today in reps of current exc, however able to tolerate newly added shldr flexion and ABD exc with wts against gravity. While working on [email or web address], pt tripped on lower portion of machine [...] do not hesitate to contact me at [phone] by phone or if you have questions or concerns regarding this new plan of care! Sincerely, Mitch Leonard, LILIAT, OC <Electronically signed by Mitch RODRIGUEST, OCS, CSCS> 0 03/04/18 0939 CC: Rylee Bales DO EBG Signed For Medicare only, by signing this I certify the plan of care. Physicians Signature Date 19-Feb-2018 Inital Evaluation (1) - PT Result: Comments: See Note; NOTES: [facility] [address] [place] [address] Fax REHABILITATION SERVICES INITIAL EVALUATION MR#: [id number] Acct: [id number] Name: SUSANNE TORRES Rep #: [id number] : 1950 68 From: Mitch Leonard DPT, [...] to be FAXED BACK to us at [phone] for Medicare purposes. Please let me know if there are questions or concerns regarding this plan of care. Physician Signature: Date: <Electronically signed by Mitch Leonard DPT, OCS, CSCS> 02/19/18 0722 CC: Rylee Bales DO EBG Signed For Me geoffrey only, by signing this I certify the plan of care. Physicians Signature Date 13-Feb-2018 Shoulder min 2 Views Result: Comments: See Note; NOTES: [facility] Imaging Services [address] [place] [address] Shoulder min 2 Views MR#: [id number] Acct: [id number] Name: SUSANNE TORRES Rep #: [id number] : 1950 F 68 From: Hector Oliveira MD PCP: Rylee Bales DO Status: REG CLI Study: Shoulder min 2 Views Date of Exam: 02/13/18 Exam# [id number] Ordering Dr: Rylee Bales DO STUDY: X-R [...] Service support , CC: Rylee Bales DO Traveling Missionary: Signed 04-Feb-2018 Thyroid Result: Comments: See Note; NOTES: [facility] Imaging Services [address] [place] [address] Thyroid MR#: [id number] Acct: [id number] Name: SUSANNE TORRES Rep #: [id number] : 0 1950 F 68 From: Bayron Payan MD PCP: Rylee Bales DO Status: REG CLI Study: Thyroid Date of Exam: 02/04/18 Exam# [id number] Ordering Dr: Rylee Bales DO STUDY: THYROID [...] Bayron Payan MD at 10:35 EDT Tel [phone], Service support , CC: Rylee Bales DO Traveling Missionary: Signed 16-Oct-2017 PT D/C Summary (1) Result: Comments: See Note; NOTES: [facility] [address] [place] [address] Fax REHABILITATION SERVICES DISCHAR GE SUMMARY MR#: [id number] Acct: [id number] Name: SUSANNE TORRES Rep #: [id number] : 1950 67 From: Martín Arteaga DPT Referring Dr.: Rylee Bales DO Status: REG RCR Insurance: MEDICAR E PART A B [employer] HP - PT D/C Summary It has been my pleasure to treat SUSANNE TORRES under orders from Rylee Bales, for the diagnosis of for a total of 10 visit(s). [facility]: 10/11/17 Please see the following information [...] please feel free to call me at [phone]. Thank you for the referral of this patient. Sincer Martín damian <Electronically signed by Martín Arteaga DPT> 10/16/17 0958 CC: Rylee Bales DO CLS Signed 12-Oct-2017 Urgent Care Visit Report Result: Comments: See Note; NOTES: [facility] [address] [place] [address] OFFICE VISIT Date of Service: 10/12/17 MR#: [id number] Acct: [id number] Name: SUSANNE TORRES Rep #: [id number] : 1950 Provider: Lillian Myers Age/Sex: 67/F [place] [facility] Status: Signed Intake Vital Signs10/12/17 Height 5 [...] General: cooperative, no acute distress, well developed [facility] Head: normal to inspection, atraumatic Ears: hear [...] any improvement advised 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 Medications New: Coding Level of Care Code [...] HENMT Head: normal to inspection, atraumatic Ears: hearing [...] any improvement advised 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 Medications New: Coding Level of Care Code Off vis,est,level 4 Diagnoses Cellulitis of other specified site L03.818 Site of cell ulitis: other site 10/12/17 1020 <Electronically signed by Lillian FLORES> Date Lillian FLORES Cosigner Signatur e: Date (if applicable) CC: 24-Sep-2017 PT Communication Result: Comments: See Note; NOTES: [facility] [address] [place] [address] Fax REHABILITATION SERVICES PROGRSALVATORE S NOTE MR#: [id number] Acct: [id number] Name: SUSANNE TORRES Rep #: [id number] [...] by Tatiana Wagner MPT> Date An lucio Stoner MPT Cosigner Signature (if applicable): Date CC: Rylee Bales DO Signed For Medicare only, by signing this I certify the plan of care. Physicians Signature Date 18-Sep-2017 Inital Evaluation (1) - PT Result: Comments: See Note; NOTES: [facility] [address] [place], [place] [id number] Fax REHABILITATION SERVICES INITIAL EVALUATION MR#: [id number] Acct: [id number] Name: SUSANNE TORRES Rep #: [id number] : 1950 67 From: Martín Arteaga DPT Referring Dr.: Rylee Bales DO Status: REG RCR Insurance: MEDICA RE PART A B [employer] Patient's Visit Information SUSANNE TORRES is a 67 year old F referred to Physical Therapy by Rylee Bales DR.KFKRISTINE with a diagnosis of . Date of [...] Response: No effect Lumbar Standing: Right Side [place] - Symptoms During Testing: No e ffect Lumbar Standing: Right Side [place] - Symptoms After Testing: No effect Lumbar Standing: Left Side [place] - Mechanical Response: No effect Lumbar Standing: Left Side [place] - Symptoms During Testing: No effect Lumbar Standing: Left Side [place] - Symptoms After Testing: No effect - [...] to be FAXED BACK to us at [phone] for Medicare purposes. Please let me know if there are questions or concerns regarding this plan of care. Physician Signature: Date: <Electronically signed by Martín Arteaga DPT> 09/18/171909 CC: Rylee Bales DO CLS Signed For Medicare only, by signing this I certify the plan of care. Physicians Signature Date 16-Aug-2017 Hand Min 3 Views Result: Comments: See Note; NOTES: [facility] Imaging Services [address] [place] [address] Hand Min 3 Views MR#: [id number] Acct: [id number] Name: SUSANNE TORRES Rep #: [id number] : 1950 F 67 From: Bayron Payan MD PCP: Rylee Bales DO Status: REG CLI Study: Hand Min 3 Views Date of Exam: 08/16/17 Exam# [id number] Ordering Dr: Rylee Bales DO STUDY: X-RA [...] Bayron Payan MD at 13:43 EST Tel [phone], Service support , CC: Rylee Bales DO Traveling Missionary: Signed 25-Jul-2017 SCREENING MAMM (CAD), BILAT Result: Comments: See Note; NOTES: [facility] Imaging Services [address] [place] [address] SCREENING MAMM (CAD), BILAT MR#: [id number] Acct: [id number] Name: SUSANNE TORRES Rep #: [id number] : 1950 F 67 From: Bayron Payan MD PCP: Rylee Bales DO Status: [facility] Study: SCREENING MAMM (CAD), BILAT Date of Exam: 07/25/17 Exam# [id number] Ordering Dr: Sherrell Bales DO MAMMOGRAPHY - [...] delay biopsy of a clinically suspicious abnormality. [id number] Electronically Signed: Bayron Payan MD at 14:18 EST Tel [phone], Service support , CC: Rylee Bales DO Traveling Missionary: Signed 03-Jul-2017 Urgent Care Visit Report Result: Comments: See Note; NOTES: [facility] [address] [place] [address] OFFICE VISIT Date of Service: 07/03/17 MR#: [id number] Acct: [id number] Name: SUSANNE TORRES Rep #: [id number] : 1950 Provider: Matt FLORES Age/Sex: 67/F Location: [facility] Status: Signed Intake Vital Signs07/03/17 Height 5 [...] (Cipro) administer within 120 minutes prior to [id number] mg PO BID 7 days ical incision Additional Comments UA dip = mod blood, mo d leukocytes. Cipro as prescribed today (per pt preference). Appropriate hygiene reinforced. Follow-up with PCP or evp and chief operating officer 2-3 days should symptoms not improved, sooner should symptoms worsen or an y other concerns develop. Patient states acknowledging understanding of the above. Coding Level of Care Code Off vis,new,level 3 Diagnoses Urinary tract infection N39.0 07/03/17 1524 <Elect ronically signed by Matt FLORES> Date aMtt FLORES Cosigner Signature: Date (if applicable) CC: 03-Jul-2017 Acute Abdomen Inc Chest Result: Comments: See Note; NOTES: [facility] Imaging Services [address] [place] [address] Acute Abdomen Inc Chest MR#: [id number] Acct: [id number] Name: SUSANNE TORRES Rep #: [id number] : 1950 F 67 From: Ross Javier DO PCP: Rylee Bales DO Status: REG CLI Study: Acute Abdomen Inc Chest Date of Exam: 07/03/17 Exam# [id number] Ordering Dr: Rylee Bales DO STUD Y: [...] Ross Javier DO at 11:58 EST Tel [phone], Serv ice support , CC: Rylee Bales DO Traveling Missionary: Signed 02-Jul-2017 Abd Inc Decub and/or Erect Result: Comments: See Note; NOTES: [facility] Imaging Services [address] [place] [address] Abd Inc Decub and/or Erect MR#: [id number] Acct: [id number] Name: SUSANNE TORRES Rep #: [id number] : 1950 F 67 From: Ross Javier DO PCP: Rylee Bales DO Status: REG CLI Study: Abd Inc Decub and/or Erect Date of Exam: 07/02/17 Exam# [id number] Ordering Dr: Rylee Bales DO STUDY: X-RAY [...] Ross Javier DO at 11:35 EST Tel [phone], Service support , Fax CC: Rylee Bales DO Traveling Missionary: Signed 03-Jan-2017 Thyroid Result: Comments: See Note; NOTES: [facility] Imaging Services [address] [place] [address] Paulette 4d Thyroid MR#: [id number] Acct: [id number] Name: SUSANNE TORRES Rep #: [id number] : 1950 F 66 From: Roselia Huerta MD PCP: Rylee Bales DO Status: REG CLI Study: Thyroid Date of Exam: 01/03/17 Exam# [id number] Ordering Dr: Rylee Bales DO STUDY: THYROID [...] Tel , Service support , CC: Rylee Balse DO Traveling Missionary: Signed 15-Aug-2016 Venous Duplex Lower Extremity Result: Comments: See Note; NOTES: [facility] Cardiovascular Services [address] [place] [address] Venous Duplex US, Unilateral 08/15/16 1054 MR#: [id number] Acct: [id number] Name: SUSANNE COLMENARES Rep #: [id number] : 1950 66 From: Bradford Crowe MD [...] By: Humera Martinez RVT 12 :27 PM 01/25/17 1228 Date Bradford Crowe MD CC: Rylee Bales DO Date Dictated: 08/15/16 1054 Date Transcribed: 08/15/16 1228 Traveling Missionary: Signed 24-Jul-2016 SCREENING MAMM (CAD), BILAT Result: Comments: See Note; NOTES: [facility] Imaging Services [address] [place] [address] Verdana 4d SCREENING MAMM (CAD), BILAT MR#: [id number] Acct: [id number] Name: MARYANA TORRES Rep #: [id number] : 1950 F 66 From: Ross Javier DO PCP: Rylee Bales DO Status: REG CLI Study: SCREENING MAMM (CAD), BILAT Date of Exam: 07/24/16 Exam# [id number] Ordering Dr: Rylee Bales DO MAMMOGRAPHY - [...] delay biopsy of a clinically suspicious abnormality. [id number] Electronically Signed: Ross Javier DO at 16:06 EST Tel [phone], Service support [phone], CC: Rylee Bales DO Traveling Missionary: Signed 17-Jul-2016 DXA BONE DENS W/VERT FX ASMT Result: Comments: See Note; NOTES: [facility] Imaging Services [address] [place] [address] Verdana 4d DXA BONE DENS W/VERT FX ASMT MR#: [id number] Acct: [id number] Name: Vincent TORRES Rep #: [id number] : 1950 F 66 From: Bayron Payan MD PCP: Rylee Bales DO Status: REG CLI Study: DXA BONE DENS W/VERT FX ASMT Date of Exam: 07/17/16 Exam# [id number] Ordering Dr : Rylee Bales DO STUDY: [...] Bayron Payan MD at 14:09 EST Tel [phone], Service support [phone], CC: Rylee Bales Traveling Missionary: Signed 01-Mar-2016 ELECTROCARDIOGRAM, COMPLETE (ECG) (34315) Comments: sinus beverly no acute chg Result: [MEASUREMENTS ANALYSIS] Date of Test: 03/01/2016 13:45:12; Heart Rate: 59; [place] Interval: 154; QRS: 92; QT Interval: 426; Corrected QT Interval (QTc): 425; P Wave Hood: 33; QRS Wave Hood: 33; T Wave Hood: 90; Blood Pressure: 120/78 [ECG DIAGNOSTIC STATEMENTS] Date of Test: 03/01/2016 13:45:12; Summary: Sinus Bradycardia - Nonspecific T-abnormality. ABNORMAL 01-Nov-2015 Lumbar Spine 2 or 3 Views Result: Comments: See Note; NOTES: [facility] Imaging Services [address] [place] [address] Verdana 4d Lumbar Spine 2 or 3 Views MR#: [id number] Acct: [id number] Name: SUSANNE COLMENARES Rep #: [id number] : 1950 F 65 From: Bayron Payan MD PCP: Manda Higginbotham MD Status: REG CLI Study: Lumbar Spine 2 or 3 Views Date of Exam: 11/01/15 Exam# [id number] Tanya gilmore Dr: Ryan Ortiz MD STUDY: [...] Bayron Payan MD at 10:21 EDT Tel [phone], Service support [phone], RAD/Lumbar Spine 2 or 3 Views IMPRESSION: Degenerative changes of the spine, as detai led above. Electronically Signed: Bayron Payan MD at 10:21 EDT Tel [phone], Service support [phone], CC: Ryan Ortiz MD; Manda Higginbotham MD Traveling Missionary: Signed 13-Oct-2015 Spine Cervical (Routine) Result: Comments: See Note; NOTES: [facility] Imaging Services [address] [place] [address] Verdana 4d Spine Cervical (Routine) MR#: [id number] Acct: [id number] Name: SUSANNE KATE Ivan Rep #: [id number] : 1950 F 65 From: Tavo Perez MD PCP: Manda Higginbotham MD Status: REG CLI Study: Spine Cervical (Routine) Date of Exam: 10/13/15 Exam# [id number] Ordering Dr: Ryan Ortiz MD STUDY: MRI [...] at 19:04 EDT Tel , Service support [phone], CC: Ryan Ortiz MD; Manda Higginbotham MD Traveling Missionary: Signed 19-Jul-2015 Bilat Scrn Digital AND CAD Result: Comments: See Note; NOTES: [facility] Imaging Services [address] [place] [address] Verdana 4d Bilat Scrn Digital AND CAD MR#: [id number] Acct: [id number] Name: SUSANNE TORRES Rep #: [id number] : 1950 F 65 From: Hector Oliveira MD PCP: Manda Higginbotham MD Status: REG CLI Study: Bilat Scrn Digital AND CAD Date of Exam: 07/19/15 Exam# [id number] Ordering Dr: Manda Higginbotham MD MAMMOGRAPHY - [...] delay biopsy of a clinically suspicious abnormality. [id number] Electronically Signed: Luis Eduardo Oliveira MD at 15:55 EST Te l , Service support [phone], CC: Manda Higginbotham MD Traveling Missionary: Signed 12-Jul-2015 PT D/C of Non Returning Pt. Result: Comments: See Note; NOTES: [facility] [address] [place] [address]. [address] [place] [address] Fax REHABILITATION SE RVICES DISCHARGE SUMMARY MR#: [id number] Acct: [id number] Name: SUSANNE TORRES Rep #: [id number] : 1950 65 From: Tatiana Wagner Referring [...] and Lateral Result: Comments: See Note; NOTES: [facility] Imaging Services [address] [place] [address] Verdana 4d Chest PA and Lateral MR#: [id number] Acct: [id number] Name: SUSANNE PADILLA Rep #: [id number] : 1950 F 65 From: Bayron Payan MD PCP: Manda Higginbotham MD Status: REG CLI Study: Chest PA and Lateral Date of Exam: 06/13/15 Exam# [id number] Ordering Dr: Marlen Rosenbaum STUDY: X-RAY CHEST [...] Bayron Payan MD at 14:40 EST Tel [phone], Service support [phone], 0079 RAD/Chest PA and Lateral IMPRESSION: No acute abnormality is seen. Electronically Signed: Bayron Payan MD at 14:40 EST Tel [phone], Service support [phone], CC: Marlen Rosenbaum; Manda Higginbotham MD Traveling Missionary: Signed 14-May-2015 Operative Report Result: Comments: See Note; NOTES: [facility] Medical Records Department [address] [place] [address] Operative Report MR#: [id number] Acct: [id number] Name: MARYANA TORRES Rep #: [id number] : 1950 65 From: Deion Gomez MD PCP: Manda Higginbotham MD Status: [facility] DATE OF SERVICE: 05/13/2015 DATE OF [...] get a guidewire past this, then, a 12-Italian ureteral balloon dilator and the distal ureter [...] condition. Deion Gomez MD T: NTS JOB: [id number] 05/14/15 1121 <Electronically si gned by Deion Gomez MD> Date Deion Gomez MD Cosigner Signature (If Indicated): Date CC: Manda Higginbotham MD; Deion Gomez MD Date Dictated: 05/13/151357 Date Transcribed: 05/13/151357 Traveling Missionary: Signed 13-May-2015 Discharge Instruction Result: Comments: See Note; NOTES: [facility] Medical Records Department [address] [place] [address] Instructions for Home/Discharge Instructions 05/13/15 1400 MR#: [id number] Acct: [id number] Name: SUSANNE TORRES Rep #: [id number] : 1950 65 From: Deion Gomez MD PCP: Manda Higginbotham MD Status: REG [facility] Discharge Diet: No Restrictions Discharge Activ ity: [...] APPT IN FEW WKS, TO PAGE 05/13/15 8302 <Electronically signed by Deion Gomez MD> Date Deion Gomez MD CC: Manda Higginbotham MD 12-May-2015 Abdomen Single View Result: Comments: See Note; NOTES: [facility] Imaging Services [address] [place] [address] Verdana 4d Abdomen Single View MR#: [id number] Acct: [id number] Name: SUSANNE RAMIERZ Rep #: [id number] : 1950 F 65 From: Jack Calderon MD PCP: Manda Higginbotham MD Status: REG CLI Study: Abdomen Single View Date of Exam: 05/12/15 Exam# [id number] Ordering Dr: Deion Hernandez MD STUDY: X-RAY [...] Jack Calderon MD at 23:58 EDT Tel [phone], Service support [phone], RAD/Abdomen Single View IM PRESSION: 5 mm left renal stone. Electronically Signed: Jack Calderon MD at 23:58 EDT Tel [phone], Service support [phone], CC: Manda Higginbotham MD; Deion Gomez MD Traveling Missionary: Signed 02-May-2015 Abdomen Single View Result: Comments: See Note; NOTES: [facility] Imaging Services [address] [facility] [place] [place] [address] Radiology Report MR#: [id number] Acct: [id number] Name: SUSANNE TORRES Re p #: [id number] : 1950 F 65 From: Hector Cervantes MD PCP: Manda Higginbotham MD Status: REG CLI Study: Abdomen Single View Date of Exam: 05/02/15 Exam# [id number] Ordering Dr: Deion Gomez MD STUDY: X-RAY [...] MD at 16:59 EDT , Service support [phone], RAD/Abdomen Sing le View IMPRESSION: 1. 5 [...] MD at 16:59 EDT , Service support [phone], CC: Manda Higginbotham MD; Deion Gomez MD Traveling Missionary: Signed 29-Mar-2015 Extremity Lower without Contra Result: Comments: See Note; NOTES: [facility] Imaging Services [address] [place] [address] CAT Scan Report MR#: [id number] Acct: [id number] Name: SUSANNE TORRES Rep #: [id number] : 1950 F 65 From: Roselia Huerta MD PCP: Anahy KRISHNAN,Manda Status: REG CLI Study: Extremity Lower without Contra Date of Exam: 03/29/15 Exam# [id number] Ordering Dr: Chirag Lee DPM STUDY: CT [...] at 13:47 EDT Tel , Service support [phone], CC: Manda guevara MD; Chirag Lee DPM Traveling Missionary: Signed 22-Mar-2015 Inital Evaluation - PT Result: Comments: See Note; NOTES: [facility] Physical Therapy [facility] [address] [place], [place] [address] Fax REHABILITATION SERVICES INITIAL EVALUATION MR#: [id number] Acct: [id number] Name: SUSANNE TORRES Rep #: [id number] : 1950 65 From: Tatiana Wagner Referring [...] to be FAXED BACK to us at [phone] for Medicare purposes. Please let me know if there are questions or concerns regarding this plan of care. Physician Signature: Date: <Electronically signed by Tatiana Wagner > 03/22/15 9292 CC: Manda Higginbotham MD; Chirag Lee DPM Signed For Medicare only, by signing this I certify the plan of care. Physicians Signature Date 31-Dec-2014 Operative Report Result: Comments: See Note; NOTES: [facility] Medical Records Department [address] [place] [address] Operative Report MR#: [id number] Acct: [id number] Name: SUSANNE TORRES Rep #: [id number] : 1950 64 From: Chirag Lee DPM PCP: Manda Higginbotham MD Status: [facility] DATE OF SERVICE: 12/31/2014 DATE OF SERVICE: December 31, 2014. SURGEON: Iona Philippe. ASSISTANTS: None. ANESTHESIA: General anesthesia. PREOPERATIVE DIAGNOSIS: Fifth metatarsal fracture, right foot. POSTOPERATIVE DIAGNOSIS: Fifth metatarsal fracture, right foot. PROCE DURE: Open reduction and internal fixation of fifth metatarsal fracture, right foot. HEMOSTASIS: Right ankle pneumatic tourniquet set at 250 mmHg for 40 minutes. ESTIMATED BLOOD LOSS: Less than 1 mL. MATERIALS: One [employer] 5.5 mm partially threaded screw with [...] mm screw was placed across the f [facility] metatarsal fracture site intramedullary. Of noted [...] needed. Chirag Lee DPM T: TITI JOB: [id number] 12/31/14 1603 &# 60;Electronically signed by Chirag Lee DPM> Date Chirag Lee DPM CC: Manda Higginbotham MD; Sunday Lee MD Date Dictated: 12/31/14914 Date Transcribed: 12/31/14914 [facility]: Signed 31-Dec-2014 Foot 2 Views Result: Comments: See Note; NOTES: [facility] Imaging Services [address] [place] [address] Radiology Report MR#: [id number] Acct: [id number] Name: SUSANNE TORRES Rep #: [id number] : 1950 F 64 From: Bayron Payan MD PCP: Manda Higginbotham MD Status: [facility] Study: Foot 2 Views Date of Exam: 12/31/14 Exam# [id number] Ordering Dr: Chirag Lee DPM STUD Y: [...] Bayron Payan MD at 13:09 EDT Tel [phone], Service support , RAD/Foot 2 Views IMPRESSION: Satisfactory ORIF of the transverse fracture of the base of the fifth metatarsal. Electronically Signed: Bayron sosa MD at 13:09 EDT Tel [phone], Service support [phone], CC: Manda Higginbotham MD; Sunday Lee MD Traveling [facility]ary: Signed 31-Dec-2014 Discharge Instruction Result: Comments: See Note; NOTES: [facility] Medical Records Department [address] [place] [address] Instructions for Home/Discharge Instructions 12/31/1432 MR#: [id number] ct: [id number] Name: SUSANNE TORRES Rep #: [id number] : 1950 64 From: Chirag Lee DPM PCP: Manda Higginbotham MD Status: REG [facility] Discharge Diet: Light diet - advance as [...] 2 Views Result: Comments: See Note; NOTES: [facility] Imaging Services [address] [place] [address] Radiology Report MR#: [id number] Acct: [id number] Name: SUSANNE TORRES Rep #: [id number] : 1950 F 64 From: Bayron Payan MD PCP: Manda Higginbotham MD Status: [facility] Study: Foot 2 Views Date of Exam: 12/31/14 Exam# [id number] Ordering Dr: Chirag Lee DPM STUD Y: [...] Morgan Payan MD at 13:02 EDT Tel [phone], Service support [phone], RAD/Foot 2 Views IMPRESSION: Satisfactory reduction of the transvers e fracture at the base of the fifth metatarsal with screw fixation. Electronically Signed: Bayron Payan MD at 13:02 EDT Tel [phone], Service support [phone], Fax CC: Manda Higginbotham MD; Sunday Lee MD Traveling [facility]ary: Signed 24-Sep-2014 Abdomen Single View Result: Comments: See Note; NOTES: [facility] Imaging Services [address] [place] [address] Radiology Report MR#: [id number] Acct: [id number] Name: SUSANNE TORRES Rep #: [id number] : 1950 F 64 From: Agustin Washington MD PCP: Manda Higginbotham MD Status: REG CLI Study: Abdomen Single View Date of Exam: 09/24/14 Exam# [id number] Ordering Dr: Deion Gomez MD UDY: X-RAY [...] at 17:02 EST Tel , Service support [phone], Fax RAD/Abdomen Single View IMPRESSION: 5 mm left upper pole stone. Other renal stones are not seen but not excluded. Electronically Signed: Agustin Washington MD at 17:02 EST Tel , Service support [phone], CC: Manda Higginbotham MD; Deion Gomez MD Traveling Missionary: Signed 04-Aug-2014 Abdomen/Pelvis without Cont Result: Comments: See Note; NOTES: [facility] Imaging Services [address] [place] [address] CAT Scan Report MR#: [id number] Acct: [id number] Name: SUSANNE TORRES Rep #: [id number] : 1950 F 64 From: Bayron Payan MD PCP: Manda Higginbotham MD Status: REG CLI Study: Abdomen/Pelvis without Cont Date of Exam: 08/04/14 Exam# [id number] Ordering Dr: Deion Gomez MD STUDY: CT [...] Bayron Payan MD at 11:33 EST Tel [phone], Service support [phone], CC: Manda Higginbotham MD; Deion Gomez MD Traveling Missionary: Signed 13-Jul-2014 Vert Fx Asess/Lat Bone Den(H) Result: Comments: See Note; NOTES: [facility] Imaging Services [address] [place] [address] Bone Density Report MR#: [id number] Acct: [id number] Name: SUSANNE TORRES Rep # : [id number] : 1950 F 64 From: Bayron Payan MD PCP: Manda Higginbotham MD Status: REG CLI Study: Vert Fx Asess/Lat Bone Den(H) Date of Exam: 07/13/14 Exam# [id number] Ordering Dr: Iona Higginbotham MD ADDENDUM by Bayron Payan MD on 08/03/14 at 0947 ADDENDUM This is an addendum r eport. A vertebral assessment study was obtained as well. There is moderate degree of loss of height of the T7 vertebrae. Minimal loss of white of the superior plate of the T11 vertebrae. Electron ically Signed: Bayron Payan MD at 9:47 EST Tel [phone], Service support [phone], 08/03/14 0947 Date cc: Manda Higginbotham MD * Signed [...] Michael Payan MD at 13:17 EST Tel [phone], Service support [phone], CC: Manda Higginbotham MD Traveling Missionary: Signed 13-Jul-2014 Vert Fx Asess/Lat Bone Den(H) Result: Comments: See Note; NOTES: [facility] Imaging Services [address] [place] [address] Bone Density Report MR#: [id number] Acct: [id number] Name: SUSANNE TORRES Rep # : [id number] : 1950 F 64 From: Bayron Payan MD PCP: Manda Higginbotham MD Status: REG CLI Study: Vert Fx Asess/Lat Bone Den(H) Date of Exam: 07/13/14 Exam# [id number] Ordering Dr: Iona Higginbotham MD STUDY: DUAL [...] Bayron Payan MD at 13:17 EST Tel [phone], Service support [phone], CC: Manda Higginbotham MD Traveling Missionary: Signed 13-Jul-2014 Pauline Scrya Digital AND CAD Result: Comments: See Note; NOTES: [facility] Imaging Services [address] [place] [address] Breast Imaging Report MR#: [id number] Acct: [id number] Name: SUSANNE TORRES Rep #: [id number] : 1950 F 64 From: Hector Oliveira MD PCP: Manda Higginbotham MD Status: REG CLI Study: Pauline Tsang Digital AND CAD Date of Exam: 07/13/14 Exam# [id number] Ordering Dr: Manda Higginbotham MD MAMMOGRAPHY - [...] Eduardo Oliveira MD at 15:14 EST Tel [phone], Service support , CC: Manda Higginbotham MD Traveling Missionary: Signed 13-Jul-2014 Dexa Bone Density Study (HP) Result: Comments: See Note; NOTES: [facility] Imaging Services [address] [place] [address] Bone Density Report MR#: [id number] Acct: [id number] Name: SUSANNE TORRES Rep # : [id number] : 1950 F 64 From: Bayron Payan MD PCP: Manda Higginbotham MD Status: REG CLI Study: Dexa Bone Density Study (HP) Date of Exam: 07/13/14 Exam# [id number] Ordering Dr: Ap Higginbotham MD STUDY: DUAL [...] Bayron Payan MD at 13:24 EST Tel [phone], Service support [phone], CC: Manda Higginbotham MD Traveling Missionary: Signed 02-Apr-2014 Pelvis 1 or 2 Views Result: Comments: See Note; NOTES: [facility] Imaging Services [address] [place] [address] Radiology Report MR#: [id number] Acct: [id number] Name: SUSANNE TORRES Ivan Rep #: [id number] : 1950 F 64 From: Ross Javier DO PCP: Manda Higginbotham MD Status: REG CLI Study: Pelvis 1 or 2 Views Date of Exam: 04/02/14 Exam# [id number] Ordering Dr: Peri Deutsch MD STUDY: X-RAY [...] Ross Javier DO at 20:24 EDT Tel [phone], Service support [phone], Fax CC: Manda Higginbotham MD; Peri Deutsch MD Traveling Missionary: Signed 09-Jul-2013 [facility] Result: Comments: See Note; NOTES: [facility] Imaging Services [address] [place] [address] Breast Imaging Report MR#: [id number] Acct: [id number] Name: SUSANNE TORRES Rep #: [id number] : 1950 F 63 From: Bayron Payan MD PCP: Status: REG CLI Exam# [id number] Ordering Dr: Manda Higginbotham MD MAMMOGRAPHY - [...] Signed: Bayron Payan M.D. at 10:52 EST [facility] [phone], Service support [phone], CC: Manda Higginbotham MD Traveling Missionary: Signed Immunization Name Dates Details Influenza (3 years and up) on: 23-May-2007 Comments: given 0.5cc im in left deltoid lot#[id number] exp.11/27-WF Influenza (3 years and up) on: 11-Jun-2008 Comments: inj given left deltoid no complicationslot:scbzy806pntpx:12/28 Influenza (3 years and up) on: 22-Apr-2009 Comments: Lot #: [id number] date: mount given: 0.5 mlRoute: IMSite [...] smoker Vital Signs Date Test Result Details :18 Temperature 97 f Comments: Method: Temporal Pulse [...] kg/m2 Body Surface Area Calculated 1.73 m2 :36 Temperature 98.4 f Comments: Method: Temporal Pulse [...] kg/m2 Body Surface Area Calculated 1.73 m2 28-Ehm-892783:03 Pulse 81 /min Comments: Pattern: Regular Respiration [...] kg/m2 Body Surface Area Calculated 1.74 m2 64-Dmu-091134:07 Pulse 68 /min Comments: Pattern: Regular Respiration [...] Area Calculated 1.74 m2 :25 Comments: hearing bhavnalDrJayden Jacques and had a glaucoma test done [...] Arm; Cuff Size: Large Weight 186 lb 1-Hei-065035:32 Temperature 97.3 f Pulse 96 /min Comments: [...] 0.00 cm Results Date Description Value Details 08-Cqb-048390:12 CALCIFIDIOL (99877) VIT D 25 Comments: PATIENT NOT FASTINGPERFORMED BY: CB [facility] Ewmpvk88[address] RoadDublin [place] [id number] Vitamin D, 25-Hydroxy 41.7 ng/mL (Normal) Range: 30.0-100.0 Comments: Vitamin D deficiency has been defined by the [place] of[facility] and an Endocrine Society practice guideline as alevel of serum 25-OH vitamin D less than 20 ng/mL (1,2).The Endocrine Society went on to further define vitamin Dinsufficiency as a level between 21 and 29 ng/mL (2).1. IOM ([place] of Medicine). 2010. Dietary reference intakes for calcium and D. [place]: The National Academies Press.2. Micky MF, Jessenia SYKES, Katrin CAMARGO, et al. Evaluation, treatment, and prevention of vitamin D deficiency: an Endocrine Society clinical practice guideline. JCEM. 2010; 96(7):1911-30. 80-Ale-957897:12 VITAMIN B-12 (CYANOCOBALAMIN) Comments: PATIENT NOT FASTINGPERFORMED BY: CB [facility] Fzkzjb7762 [address] RoadDublin [place] [id number] ([address]) Vitamin B12 459 pg/mL (Normal) Range: 232-1245 26-Eca-636060:12 TSH (81097) Comments: PATIENT NOT FASTINGPERFORMED BY: CB [facility] Ppqvby9352 [address] RoadDublin [place] [id number] TSH 2.120 {uIU/mL} (Normal) Range: 0.450-4.500 81-Raa-192362:12 SED RATE ERYTHROCYTE (78853) Comments: PATIENT NOT FASTINGPERFORMED BY: CB [facility] Rqosmi3578 [address] RoadDublin [place] [id number] Sedimentation Rate-Westergren 2 mm/h (Normal) Range: 0-40 60-Afl-773785:12 RHEUMATOID FACTOR-QUANT (88490) Comments: PATIENT NOT FASTINGPERFORMED BY: CB [facility] Gzbggl3918 [address] RoadDublin [place] [id number] RA Latex Turbid. <10.0 {IU/mL} (Normal) Range: 0.0-13.9 33-Qwe-331716:12 METABOLIC PANEL, COMPREHENSIVE Comments: PATIENT NOT FASTINGPERFORMED BY: [employer] Xuephq5084 [facility] [id number] (22514) ALT (SGPT) 19 [iU]/L (Normal) Range: 0-32 [...] 8-27 Glucose 92 mg/dL (Normal) Range: 65-99 86-Vfy-390627:12 C-REACTIVE PROTEIN (62631) Comments: PATIENT NOT FASTINGPERFORMED BY: [employer] Gozmty8604 [facility] [id number] C-Reactive Protein, Quant 1.2 mg/L (Normal) Range: 0.0-4.9 50-Qmh-740600:12 CBC (AUTO) (42938) Comments: PATIENT NOT FASTINGPERFORMED BY: [facility] Xptwhh0051 [facility] [id number] Platelets 212 {x10E3/uL} (Normal) Range: 150-379 RDW 13.9 % (Normal) Range: 12.3-15.4 MCHC 33.7 g/dL (Normal) Range: 31.5-35.7 MCH 30.8 pg (Normal) Range: 26.6-33.0 MCV 91 fL (Normal) Range: 79-97 Hematocrit 40.3 % (Normal) Range: 34.0-46.6 Hemoglobin 13.6 g/dL (Normal) Range: 11.1-15.9 RBC 4.42 {x10E6/uL} (Normal) Range: 3.77-5.28 WBC 4.8 {x10E3/uL} (Normal) Range: 3.4-10.8 69-Dgf-557537:12 BIBIANA (ANTINUCLEAR ANTIBODY) Comments: PATIENT NOT FASTINGPERFORMED BY: [facility] Vxhseb6470 [facility] [id number] (56555) BIBIANA Direct Negative (Normal) 18-Rrp-955084:08 Miscellaneous Lab Procedure Comments: Comments: [id number] TRANGLUTAMINASE SER FZTest(s) Ordered: [id number] TRANGLUTAMINASE SER [facility] [address] [place], [address] [facility] Comments: TEST RESULT LIMITSTransglutaminase Ab IgG/M/ATragl IgG <1.2 U/mL 0.0 - 6.0 Reference Range Negative < 6.0 U/mL Weak Positive LAB (Normal) 6.0 - 9.0 U/mL Positive > 9.0 U/mLTragl IgM 2.0 U/mL 0.0 - 12.4 Reference Range Negative < 9.6 U/mL Equivocal 9.6 - 12.4 TEST U/mL Positive > 12.4 U/mLThe performance characteristics of the TransglutaminaseIgM assay was validated by [facility] [employer]. [place] FDA has not approved or cleared this test. Th e resultsof this assay can be used for clinical diagnosis withoutFDA approval. [facility] [employer]. is a CLIAcertified, CAP accredited laboratory for performing highcomplexity assays such as this o ne.Tragl IgA < 1.2 U/mL 0.0 - 4.0 Reference Range Negative < 4.0 U/mL Weak Positive 4.0 - 10.0 U/mL Positive > 10.0 U/mLComment_ TESTING PERFORMED AT [facility]. ORIGINAL REPORT ON FILE IN LAB CONTAINS ADDITIONAL TEST SITE INFORMATION. 60-Xvk-927911:30 CBC-Complete Blood Cnt No Diff Comments: [facility] [address] [place], [address] MPV 9.8 fL (Normal) Range: 6.2-12.0 PLT [...] 4.2-5.4 WBC 6.0 K/mm3 (Normal) Range: 4.4-11.0 87-Vxz-784959:30 Endomysial Antibody IgA Comments: [facility] (refer to report for specific site)refer to report for address and phone number ENDOMYSIAL IGA Negative (Normal) 64-Xhd-885781:30 Thyroglobulin Antibody Comments: [facility] (refer to report for specific site)refer to report for address and phone number TG AB 1.1 {IU/mL} (Abnormal) Range: 0.0-0.9 Comments: Thyroglobulin Antibody measured by Jaz AudaciousMethodologyPerformed at: CB - [facility] Qcxgse1121 [place], [place] [id number] Director: Joaquim Barrett PhD, Phone: [phone] :23 CBC-Complete Blood Cnt No Diff Comments: [facility] [address] [place], [phone](385) MPV 9.5 fL (Normal) Range: 6.2-12.0 PLT [...] K/mm3 (Abnormal) Range: 4.4-11.0 :23 Magnesium Comments: [facility] [address] [place], [phone](884) MG 2.3 mg/dL (Normal) Range: 1.6-2.6 :23 Microalb:Creat Ratio,Random UR Comments: [facility] [address] [place], [id number] MALB:CREAT 5.6 {mg/g_CRE} (Normal) MICROALBUMIN,UR 5.3 mg/L (Normal) UR CREAT 95.70 mg/dL (Normal) :23 PTHIN 78.4 pg/mL (Normal) Comments: [facility] [address] [place], [address] Range: 18.4-80.1 :23 Renal Profile Comments: [facility] [address] [place], [address] CO2 28.0 mmol/L (Normal) Range: 21.0-32.0 CL [...] Comments: Please note revised GLUCOSE reference range waiihurps52/02/2018. 08-Eoy-35862:23 Vitamin D,25 Hydroxy Comments: [facility] [address] [place], [address] Vitamin D 25-OH 34.7 ng/mL (Normal) Range: 29.95-100.01 Comments: Vitamin D 25(OH) Status Range Deficiency <20 ng/mL (50nmol/L) Insuffciency 20 - 30 ng/mL (50 - 75 nmol/L) Sufficiency 30 - 100 ng/mL (75 - 250 nmol/L) Toxicity >100 ng/mL (>250 nmol/L) 21-Rmy-556898:19 CBC W/Diff, Automated Comments: [facility] [address] [place], [phone] Absolute Lymph 1.25 {X10_3/ul} (Normal) Range: 0.83-4.51 [...] 4.2-5.4 WBC 3.9 K/mm3 (Abnormal) Range: 4.4-11.0 39-Btx-361710:19 Endomysial Antibody IgA Comments: [facility] (refer to report for specific site)refer to report for address and phone number ENDOMYSIAL IGA Negative (Normal) Comments: Performed at: [facility] [address] [id number] Director: Joaquim Barrett PhD, Phone: [phone] 82-Pbe-933301:19 t-Transglutaminase IgA Comments: [facility] (refer to report for specific site)refer to report for address and phone number tTG IGA <2 U/mL (Normal) Range: 0-3 Comments: Negative 0 - 3 Weak Positive 4 - 10 Positive >10 Tissue Transglutaminase (tTG) has been identified as the endomysial anti gen. Studies have demonstr- ated that endomysial IgA antibodies have over 99% specificity for gluten sensitive enteropathy. 58-Jmu-241205:00 Culture, Urine Comments: [facility] [address] [place], [phone] CUUR See Note (Normal) Comments: Urine CultureCulture exhibits no growth. :27 CBC-Complete Blood Cnt No Diff Comments: [facility] [address] [place], [address] MPV 10.4 fL (Normal) Range: 6.2-12.0 PLT [...] K/mm3 (Abnormal) Range: 4.4-11.0 :27 Magnesium Comments: [facility] [address] [place], [address] MG 2.1 mg/dL (Normal) Range: 1.8-2.4 :27 Microalb:Creat Ratio,Random UR Comments: [facility] [address] [place], [phone] MALB:CREAT 4.6 {mg/g_CRE} (Normal) MICROALBUMIN,UR 8.6 mg/L (Normal) UR CREAT 188.00 mg/dL (Normal) :27 Renal Profile Comments: [facility] [address] [place], [address] CO2 27.0 mmol/L (Normal) Range: 21.0-32.0 CL [...] 7-18 GLU 94 mg/dL (Normal) Range: 70-110 72-Qay-38043:27 Vitamin D,25 Hydroxy Comments: [facility] [address] [place], [place], [address] Vitamin D 25-OH 57.5 ng/mL (Normal) Comments: Vitamin D 25(OH) Status Range Deficiency <20 ng/mL (50nmol/L) Insuffciency 20 - 30 ng/mL (50 - 75 nmol/L) Sufficiency 30 - 100 ng/mL (75 - 250 nmol/L) Toxicity >100 ng/mL (>250 nmol/L) 1-Rmb-015978:15 TSH (51589) Comments: PATIENT NOT FASTINGPERFORMED BY: [facility] Ytnsrj3360 [facility] [id number] TSH 2.900 {uIU/mL} (Normal) Range: 0.450-4.500 2-Awk-044199:15 SED RATE ERYTHROCYTE (72526) Comments: PATIENT NOT FASTINGPERFORMED BY: clypd [facility] [employer] [facility] [id number] Sedimentation Rate-Westergren 2 mm/h (Normal) Range: 0-40 3-Lob-711729:15 C-REACTIVE PROTEIN (13195) Comments: PATIENT NOT FASTINGPERFORMED BY: [facility]6370 [facility] [id number] C-Reactive Protein, Quant 1.4 mg/L (Normal) Range: 0.0-4.9 4-Ubj-159756:15 METABOLIC PANEL, COMPREHENSIVE Comments: PATIENT NOT FASTINGPERFORMED BY: [facility]6370 [facility] [id number] (26284) ALT (SGPT) 10 [iU]/L (Normal) Range: 0-32 [...] Glucose, Serum 106 mg/dL (Abnormal) Range: 65-99 0-Wgg-404400:15 CBC W/AUTO DIFF WBC (36648) Comments: PATIENT NOT FASTINGPERFORMED BY: [facility] CenterHxatlm0826 [facility] [id number] Immature Grans (Abs) 0.0 {x10E3/uL} (Normal) Range: [...] 3.77-5.28 WBC 4.5 {x10E3/uL} (Normal) Range: 3.4-10.8 43-Cov-00504:23 CBC W/Diff, Automated Comments: [facility] [address] [place], [place], [phone] Absolute Lymph 1.81 {X10_3/ul} (Normal) Range: 0.83-4.51 [...] 4.2-5.4 WBC 4.8 K/mm3 (Normal) Range: 4.4-11.0 54-Kka-43955:23 Comprehensive Metabolic Profil Comments: [facility] [address] [place], [place], [address] GAP 5 (Normal) Range: 5-15 CO2 31.0 [...] 70-110 :23 CRP, High Sensitivity Cardiac Comments: [facility] [address] [place], [place], [address] CRP HIGH SENS 2.99 mg/L (Normal) Comments: Low Relative Risk of CVD <1.0 mg/L Average Relative Risk of CVD 1.0 - 3.0 mg/L High Relative Risk of CVD >3.0 mg/L :23 Erythrocyte Sed Rate Comments: [facility] [address] [place], [place], [phone] SED RATE 2 mm/h (Normal) Range: 0-30 :55 ASPIRATION (SLIDES ONLY) See Note (Normal) Comments: [facility] [address] [place], [place], [address] Comments: Patient: SUSANNE TORRES : 1950 (66/F) Acct Num: [id number] Phys: Trinh KRISHNAN,Keanu Unit Num: [id number] Loc: [facility] Specimen: [id number] Received: 01/23/171604 Spec Type: ASPIRATION TISSUES TISSUES: COMMENT Immediate cytologic evaluation to determine adequacy is not applicable. Correlation with clinical, radiologic findings and appropriate fol low up are necessary. CYTOLOGY GROSS Received are 12 smears labeled with the patient's name and designated per the requisition as left thyroid FNA. Submitted for staining. 01/24/17 TC:5 CPT: 02328 CYTOLOGY STUDY Slides are reviewed. The specimen is adequate for evaluation. The specimen consists of benign follicular cells and colloid. DIAGNOSIS CYTOLOGY Left thyroid, ultrasou nd-guided FNA (smears): Consistent with benign colloid nodule. SJ:horacio 01/25/17 HEADER OPERATION: Ultrasound-guided fine needle aspiration left thyroid PRE-OP DIAGNOSIS: Multinodular goite r TISSUE SUBMITTED: Left thyroid FNA 12 slides Signed Julio Alanis 01/25/17 <signature on file> 07-Bil-657335:39 T3, FREE (TRIDOTHYRONINE) (50309) Comments: PATIENT NOT FASTINGPERFORMED BY: [address] [id number] Triiodothyronine,Free,Serum 2.6 pg/mL (Normal) Range: 2.0-4.4 :39 T4, FREE (THYROXINE) (20712) Comments: PATIENT NOT FASTINGPERFORMED BY: [address] [id number] T4,Free(Direct) 1.49 ng/dL (Normal) Range: 0.82-1.77 26-Kbz-313532:39 TSH (07370) Comments: PATIENT NOT FASTINGPERFORMED BY: [address] [id number] TSH 1.970 {uIU/mL} (Normal) Range: 0.450-4.500 8-Bzz-644234:31 ANTINUCLEAR ANTIBODIES DIRECT Comments: [facility] (refer to report for specific site)refer to report for address and phone number BIBIANA-DIRECT Positive (Abnormal) Comments: Performed at: [address] [id number] Director: Joaquim Barrett PhD, Phone: [phone] 3-Cza-917364:31 CBC W/Diff, Automated Comments: [facility] [address] [place], [place], [phone] Absolute Lymph 1.15 {X10_3/ul} (Normal) Range: 0.83-4.51 [...] 4.2-5.4 WBC 4.4 K/mm3 (Normal) Range: 4.4-11.0 2-Jzr-461295:31 Magnesium Comments: [facility] [address] [place], [place], [address] MG 2.1 mg/dL (Normal) Range: 1.8-2.4 1-Aub-584025:31 Protein+Creatinine Ratio,Urine Comments: [facility] [address] [place], [place], [address] PROT:CRE RATIO 88 {mg/g_CRE} (Normal) Range: 0-200 PROTEIN,UR.RAN. 7.2 mg/dL (Normal) UR CREAT 81.80 mg/dL (Normal) :31 Renal Profile Comments: [facility] [address] [place], [address] CO2 25.0 mmol/L (Normal) Range: 21.0-32.0 CL [...] <126 mg/dLsuggests IMPAIRED HOMEOSTASIS per A.D.A. criteria. 2-Kro-002514:31 Vitamin D,25 Hydroxy Comments: [facility] [address] [place], [phone] Vitamin D 25-OH 48.2 ng/mL (Normal) Comments: Vitamin D 25(OH) Status Range Deficiency <20 ng/mL (50nmol/L) Insuffciency 20 - 30 ng/mL (50 - 75 nmol/L) Sufficiency 30 - 100 ng/mL (75 - 250 nmol/L) Toxicity >100 ng/mL (>250 nmol/L) 30-Mfn-79169:45 Culture, Urine Comments: [facility] [address] [place], [address] CUUR See Note (Normal) Comments: Urine CultureBelow infection level. ORGANISM 1: Mixed Gram Positive OrganismsColony Count <1000 97-Wuf-156404:03 CALCIFIDIOL (88519) VIT D 25 Comments: PATIENT NOT FASTINGPERFORMED BY: CB [facility] Gyfaoq9538 [address] Road[address]ublin [place] [id number] Vitamin D, 25-Hydroxy 52.3 ng/mL (Normal) Range: 30.0-100.0 Comments: Vitamin D deficiency has been defined by the [place] ofMedicine and an Endocrine Society practice guideline as alevel of serum 25-OH vitamin D less than 20 ng/mL (1,2).The Endocrine Society went on to further define vitamin Dinsufficiency as a level between 21 and 29 ng/mL (2).1. IOM ([place] of Medicine). 2010. Dietary reference intakes for calcium and D. [place]: The National Academies Press.2. Micky MF, Jessenia SYKES, Katrin CAMARGO, et al. Evaluation, treatment, and prevention of vitamin D deficiency: an Endocrine Society clinical practice guideline. JCEM. 2010; 96(7):1911-30. 65-Kpo-054261:03 Folate (02598) Comments: PATIENT NOT FASTINGPERFORMED BY: CB [facility] Allhme8[address]ublin [place] [id number] Folate (Folic Acid), Serum >20.0 ng/mL (Normal) Comments: A serum folate concentration of less than 3.1 ng/mL isconsidered to represent clinical deficiency. 56-Tsd-281791:03 VITAMIN B-12 (CYANOCOBALAMIN) Comments: PATIENT NOT FASTINGPERFORMED BY: CB [facility] Svwufg7583 [address] [id number] ([id number]) Vitamin B12 469 pg/mL (Normal) Range: 211-946 74-Fin-315714:03 TSH (40661) Comments: PATIENT NOT FASTINGPERFORMED BY: CB [facility] Ngkdrw2182 Walton RoadDublin [place] [id number] TSH 2.240 {uIU/mL} (Normal) Range: 0.450-4.500 83-Uvi-766724:03 SED RATE ERYTHROCYTE (98339) Comments: PATIENT NOT FASTINGPERFORMED BY: [facility]CoChristian [facility] Care CenterOyckff7810 [facility] [id number] Sedimentation Rate-Westergren 2 mm/h (Normal) Range: 0-40 44-Yod-777209:03 RHEUMATOID FACTOR-QUANT (51421) Comments: PATIENT NOT FASTINGPERFORMED BY: [facility]CoChristian [facility] Care CenterNaeubl1770 [facility] [id number] RA Latex Turbid. 12.1 {IU/mL} (Normal) Range: 0.0-13.9 79-Zlt-879531:03 METABOLIC PANEL, COMPREHENSIVE Comments: PATIENT NOT FASTINGPERFORMED BY: [facility]6370 [facility] [id number] (69720) ALT (SGPT) 15 [iU]/L (Normal) Range: 0-32 [...] Glucose, Serum 89 mg/dL (Normal) Range: 65-99 :03 C-REACTIVE PROTEIN (76417) Comments: PATIENT NOT FASTINGPERFORMED BY: RushFiles70 [facility] [id number] C-Reactive Protein, Quant 0.4 mg/L (Normal) Range: 0.0-4.9 :03 CBC (AUTO) (15395) Comments: PATIENT NOT FASTINGPERFORMED BY: RushFiles70 [facility] [id number] Platelets 220 {x10E3/uL} (Normal) Range: 150-379 RDW 13.1 % (Normal) Range: 12.3-15.4 MCHC 32.8 g/dL (Normal) Range: 31.5-35.7 MCH 30.1 pg (Normal) Range: 26.6-33.0 MCV 92 fL (Normal) Range: 79-97 Hematocrit 41.1 % (Normal) Range: 34.0-46.6 Hemoglobin 13.5 g/dL (Normal) Range: 11.1-15.9 RBC 4.49 {x10E6/uL} (Normal) Range: 3.77-5.28 WBC 4.7 {x10E3/uL} (Normal) Range: 3.4-10.8 :03 BIBIANA (ANTINUCLEAR ANTIBODY) Comments: PATIENT NOT FASTINGPERFORMED BY: [facility] [place] [id number] (39869) BIBIANA Direct Positive (Abnormal) :06 ANTINUCLEAR ANTIBODIES DIRECT Comments: CMP,CBCD FOR DR PHELPS,CBCD FOR DR Hannah (refer to report for specific site)refer to report for address and phone number BIBIANA-DIRECT Negative (Normal) Comments: Performed at: - [facility] [id number] Director: Joaquim Barrett PhD, Phone: [phone] 14-Hvk-49325:06 CBC W/Diff, Automated Comments: CMP,CBCD FOR DR PHELPS,CBCD FOR DR LOTTpresbyterian hospitalotoniel [facility] Nafchdoykw5[address] [place], [place], [id number] Absolute Lymph 1.89 {X10_3/ul} (Normal) Range: 0.83-4.51 [...] (Normal) Range: 82-167 Comments: Performed at: - [facility] [id number] Director: Joaquim Barrett PhD, Phone: [phone] :06 Complement C4 Comments: CMP,CBCD FOR DR PHELPS,CBCD FOR DR Hannah (refer to report for specific site)refer to report for address and phone number COMP C4 14 mg/dL (Normal) Range: 14-44 :06 Comprehensive Metabolic Profil Comments: CMP,CBCD FOR [facility]TLake[facility] Nqrwmlqkoh9150 [place], [place], [id number] GAP 8 (Normal) Range: 5-15 CO2 30.0 [...] Range: 70-110 :06 Magnesium Comments: CMP,CBCD FOR [facility] Vhteuvnvaq9814Karissa [place], [id number] MG 2.1 mg/dL (Normal) Range: 1.8-2.4 :06 Protein+Creatinine Ratio,Urine Comments: CMP,CBCD FOR DR DEUTSCHSt[facility] Jcgveqsmru9229[place], [address] PROT:CRE RATIO 128 {mg/g_CRE} (Normal) Range: 0-200 PROTEIN,UR.RAN. 13.8 mg/dL (Abnormal) UR CREAT 108.00 mg/dL (Normal) 60-Fwg-04040:06 Vitamin D,25 Hydroxy Comments: CMP,CBCD FOR DR DEUTSCHSt[facility] [address]mpkdyqgvv8454 [place], [address] Vitamin D 25-OH 48.7 ng/mL (Normal) Comments: Vitamin D 25(OH) Status Range Deficiency <20 ng/mL (50nmol/L) Insuffciency 20 - 30 ng/mL (50 - 75 nmol/L) Sufficiency 30 - 100 ng/mL (75 - 250 nmol/L) Toxicity >100 ng/mL (>250 nmol/L) 9-Gmx-506532:07 Fecal Occult Blood , Office (19544) Fecal Occult Blood , Office (Inhouse) negative (Normal) 72-Rga-86473:22 CBC W/Diff, Automated Comments: RENAL AND MG ARE FOR DR. [facility]SLake[facility] [address]xgtfq[address] [place], [address] Absolute Lymph 1.92 {X10_3/ul} (Normal) [...] 4.2-5.4 WBC 4.2 K/mm3 (Abnormal) Range: 4.4-11.0 62-Isg-26016:22 Comprehensive Metabolic Profil Comments: RENAL AND MG ARE FOR DR. [facility]SLake[facility] Xpkxnefpkg4081 [address] [place], [place], [address] GAP 6 (Normal) Range: 5-15 CO2 31.0 [...] 7-18 GLU 87 mg/dL (Normal) Range: 70-110 60-Bif-47367:22 Lipid Profile Comments: RENAL AND MG ARE FOR DR. Ellsworth [facility] Nfqlioptjz27[address] [place], [place], [id number] VLDL 12 mg/dL (Normal) Range: 5-40 LDL [...] Comments: RENAL AND MG ARE FOR DR. [facility]SLake[facility] Sdwvsxfadh9255Karissa [place], [address] MG 2.1 mg/dL (Normal) Range: 1.8-2.4 :22 Phosphorus Comments: RENAL AND MG ARE FOR DR. [facility]SLake[facility] [address] [place], [address] PHOS 2.6 mg/dL (Normal) Range: 2.5-4.9 :22 Thyroid Stim Hormone (TSH) Comments: RENAL AND MG ARE FOR DR. [facility]SLake[facility] [address]cn[address] [place], [address] TSH 2.69 {uIU/mL} (Normal) Range: 0.358-3.74 :22 Vitamin D,25 Hydroxy Comments: RENAL AND MG ARE FOR DR. [facility]SLake[facility] [address]vhusa[address] [place], [address] Vitamin D 25-OH 51.1 ng/mL (Normal) [...] number BIBIANA-DIRECT Positive (Abnormal) Comments: Performed at: [address] [id number] Director: Joaquim Barrett PhD, Phone: [phone] :[phone] CBC W/Diff, Automated Comments: [facility] Hbffofjltn6[address] [place], [address] Absolute Lymph 1.76 {X10_3/ul} (Normal) Range: [...] mg/dL (Normal) Range: 82-167 Comments: Performed at: [address] [id number] Director: Joaquim Barrett PhD, Phone: [phone] :[phone] Complement C4 Comments: [facility] (refer to report for specific site)refer to report for address and phone number COMP C4 15 mg/dL (Normal) Range: 14-44 :50 Comprehensive Metabolic Profil Comments: ORDERED CMP CBCD PROCRE UACDR.SHELLEY ORDERED VITD CMP BIBIANA CBCD C3 C4 MG PROCRE UADR.ENDY ORDERED [facility]URSt[facility] [address]mwsvdwptt55[address] [place], [place], [id number] GAP 5 (Normal) Range: 5-15 CO2 28.0 [...] (Normal) Range: 70-110 :50 Culture, Urine Comments: [facility] Yvdhdmqrlx37[address] [place], [place], [id number] CUUR See Note (Normal) Comments: Urine CultureCulture exhibits no growth. :50 Magnesium Comments: ORDERED CMP CBCD PROCRE UACDR.SHELLEY ORDERED VITD CMP BIBIANA CBCD C3 C4 MG PROCRE UADR.ENDY ORDERED [facility] Tzozwsqayf0104 [place], [address] MG 2.1 mg/dL (Normal) Range: 1.8-2.4 :50 Protein+Creatinine Ratio,Urine Comments: [facility] Wajgjcqnnt6235 [place], [address] PROT:CRE RATIO 161 {mg/g_CRE} (Normal) Range: 0-200 PROTEIN,UR.RAN. 10.6 mg/dL (Normal) UR CREAT 65.90 mg/dL (Normal) :50 Urinalysis, Routine (Dipstick) Comments: How was Urine Obtained? CLEAN [facility] Khtawwkiwm85[address] [place], [address] LEUK ESTERASE 25 /ul (Abnormal) OCCULT [...] Yellow (Normal) :50 Vitamin D,25 Hydroxy Comments: [facility] Vgvfcurram3753 [place], [address] Vitamin D 25-OH 58.7 ng/mL (Normal) Comments: Vitamin D 25(OH) Status Range Deficiency <20 ng/mL (50nmol/L) Insuffciency 20 - 30 ng/mL (50 - 75 nmol/L) Sufficiency 30 - 100 ng/mL (75 - 250 nmol/L) Toxicity >100 ng/mL (>250 nmol/L) :33 Lipid Profile Comments: [facility] Qzkmkmgmwi7398 [place], [address] VLDL 18 mg/dL (Normal) Range: 5-40 [...] High Risk 27-Jul-20158:33 Vitamin D,25 Hydroxy Comments: [facility] Nqaamdjwwf11[address] [place], [place], [id number] Vitamin D 25-OH 43.3 ng/mL (Normal) Comments: Vitamin D 25(OH) Status Range Deficiency <20 ng/mL (50nmol/L) Insuffciency 20 - 30 ng/mL (50 - 75 nmol/L) Sufficiency 30 - 100 ng/mL (75 - 250 nmol/L) Toxicity >100 ng/mL (>250 nmol/L) 35-Rju-711328:12 EBV Acute Prof IgG / IgM Comments: [...] - Antibody Ab sentPerformed at: - [facility] [address] [id number] Director: Joaquim Barrett PhD, Phone: [phone] EB-NAg [id number] 38.3 U/mL (Abnormal) Range: 0.0-17.9 Comments: Negative <18.0 Equivocal 18.0 - 21.9 Positive >21.9 EB-VCA SmH32365 306.0 U/mL (Abnormal) Range: 0.0-17.9 Comments: Negative <18.0 Equivocal 18.0 - 21.9 Positive >21.9 EB-EA IgG 51023 <9.0 U/mL (Normal) Range: 0.0-8.9 Comments: Negative < 9.0 Equivocal 9.0 - 10.9 Positive >10.9 EB-VCA [id number] < 36.0 U/mL (Normal) Range: 0.0-35.9 Comments: Negative <36.0 Equivocal 36.0 - 43.9 Positive >43.9 :15 Immunofixation Urine Comments: PATIENT STATES FLU X'S 2 WAS DONE AT THE OFFICE BY ONE OFTHE NURSES.[facility] (refer to report for specific site)refer to report for address and phone number CLIVE Urine Comment (Normal) Comments: No monoclonality detected.Performed at: [address] [id number] Director: Joaquim Barrett PhD, Phone: [phone] :[phone] Immunofixation, Serum Comments: PATIENT STATES FLU [...] 1776 697 mg/dL (Abnormal) Range: 700-1600 :15 [place] L[employer] Chains Comments: PATIENT STATES FLU [...] % (Normal) BETA GLOB,U 30.8 % (Normal) KLEMW-2-CEUM,U 16.9 % (Normal) HNCUP-8-WXAG,U 1.8 % (Normal) ALBUMIN,UR 35.1 % (Normal) PROTEIN,UR 13.0 mg/dL (Normal) Range: 0.0-15.0 77-Mlu-453894:15 Protein Electroph, S Comments: PATIENT STATES FLU X'S 2 WAS DONE AT THE OFFICE BY ONE OFTHE NURSES.[facility] (refer to report for specific site)refer to report for address and phone number NOTE Comment (Normal) Comments: Protein electrophoresis scan will follow via computer,mail, or auricular detoxification specialist delivery. NOTE: Comment (Normal) Comments: The SPE pattern appears essentially unremarkable. Evidenceof monoclonal protein is not apparent. INTERPRETATION Comment (Normal) Comments: Protein electrophoresis scan will follow via computer,mail, or auricular detoxification specialist delivery. A/G RATIO 1.7 (Normal) Range: 0.7-2.0 GLOBULIN, TOTAL 2.3 g/dL (Normal) Range: 2.0-4.5 M-SPIKE (Normal) Comments: Not Observed GAMMA GLOBULIN 0.7 g/dL (Normal) Range: 0.5-1.6 BETA GLOBULIN 0.8 g/dL (Normal) Range: 0.6-1.3 ALPHA-2 GLOBUL 0.6 g/dL (Normal) Range: 0.4-1.2 ALPHA-1 GLOBUL 0.2 g/dL (Normal) Range: 0.1-0.4 ALBUMIN 3.9 g/dL (Normal) Range: 3.2-5.6 PROTEIN,TOTAL 6.2 g/dL (Normal) Range: 6.0-8.5 38-Mus-366096:22 Rapid Flu (68716 x 2) Influenza A Ag negative (Normal) 02-Ddf-948251:56 Vitamin D,25 Hydroxy Comments: [facility] [address]yfaxlcqtq[address] [place], [address] Vitamin D 25-OH 87.5 ng/mL (Normal) Comments: Vitamin D 25(OH) Status Range Deficiency <20 ng/mL (50nmol/L) Insuffciency 20 - 30 ng/mL (50 - 75 nmol/L) Sufficiency 30 - 100 ng/mL (75 - 250 nmol/L) Toxicity >100 ng/mL (>250 nmol/L) :31 CBC W/Diff, Automated Comments: [facility] Jumwtlsrld[address] [place], [place], [address] Absolute Lymph 1.68 {X10_3/ul} (Normal) Range: 0.83-4.51 [...] Range: 4.4-11.0 :31 Comprehensive Metabolic Profil Comments: [facility] [address]tdfjafyj[address] [place], [place], [address] GAP 3 (Abnormal) Range: 5-15 CO2 32.0 [...] (Normal) Range: 70-110 :31 Protein+Creatinine Ratio,Urine Comments: [facility] Szabwepstf[address] [facility] [address] [place], [place], [address] PROT:CRE RATIO 180 {mg/g_CRE} (Normal) Range: 0-200 PROTEIN,UR.RAN. 39.2 mg/dL (Abnormal) UR CREAT 218.00 mg/dL (Normal) :31 Urinalysis, Complete Comments: How was Urine Obtained? Urine, [facility]WLake[facility] Tpecyfuqjh[address] [facility] [address] [place], [place], [address] AMORPHOUS 1+ (Normal) MUCUS, URINE 0 SEEN [...] CLARITY Sl. Cloudy (Normal) COLOR Yellow (Normal) 81-Leq-442278:20 Basic Metabolic Profile (BMP) Comments: [facility] [address] [place], [place], [address] GAP 6 (Normal) Range: 5-15 CO2 30.0 [...] 7-18 GLU 89 mg/dL (Normal) Range: 70-110 89-Axa-699692:20 CBC-Complete Blood Cnt No Diff Comments: [facility] [address] [place], [place], [address] MPV 9.2 fL (Normal) Range: 6.2-12.0 PLT [...] 4.2-5.4 WBC 4.7 K/mm3 (Normal) Range: 4.4-11.0 :01 Basic Metabolic Profile (BMP) Comments: Test performed at:[facility] Mpdqxbhxzz5408 [place] [address] GAP 4 (Abnormal) Range: 5-15 [...] 7-18 GLU 97 mg/dL (Normal) Range: 70-110 71-Fmc-302292:01 Vitamin D,25 Hydroxy Comments: Test performed at:[facility] Rjybtxncuv8382 [place] [address] Vitamin D 25-OH 22.7 ng/mL (Normal) Comments: Vitamin D 25(OH) Status Range Deficiency <20 ng/mL (50nmol/L) Insuffciency 20 - 30 ng/mL (50 - 75 nmol/L) Sufficiency 30 - 100 ng/mL (75 - 250 nmol/L) Toxicity >100 ng/mL (>250 nmol/L) :12 CBC W/Diff, Automated Comments: Test performed at:[facility] Ndembflesq9184 [facility] [place], [place] [address] Absolute Lymph 1.39 {X10_3/ul} (Normal) Range: 0.83-4.51 [...] :12 Comprehensive Metabolic Profil Comments: Test performed at:[facility] [address]jljriurh[address] [place] [address] GAP 9 (Normal) Range: 5-15 [...] :52 CBC W/Diff, Automated Comments: Test performed at:[facility] Genxddbndt8[address] [place] [address] Absolute Lymph 1.62 {X10_3/ul} (Normal) [...] :52 Comprehensive Metabolic Profil Comments: Test performed at:[facility] Hiszkyzgni1654 [address] [place], [place] [address] GAP 6 (Normal) Range: 5-15 CO2 31.0 [...] 7-18 GLU 77 mg/dL (Normal) Range: 70-110 5-Skm-384988:40 FENTANYL Blood Level Comments: Test performed at:[facility] Gkssetqdbs1616 [place] [address] FENTANYL BLD (Normal) Comments: Sent directly to testing facility per ordering physician.02/16/15 162[facility]ITALA[facility] :53 CBC W/Diff, Automated Comments: Test performed at:[facility] Npkhoszcxp2263 [place] [address] Absolute Lymph 1.44 {X10_3/ul} (Normal) [...] :53 Comprehensive Metabolic Profil Comments: Test performed at:[facility] Lihyynrdgi[address] [place] [address] GAP 5 (Normal) Range: 5-15 [...] 70-110 :53 Lipid Profile Comments: Test performed at:[facility] Hqiybnnqye0275 [place] [address] VLDL 13 mg/dL (Normal) Range: [...] 200-240 mg/dL Borderline >240 mg/dL High Risk 51-Qsk-27499:53 Vitamin D,25 Hydroxy Comments: Test performed at:[facility] [address]zrig[address] [place] [address] Vitamin D 25-OH 27.3 ng/mL (Normal) Comments: Vitamin D 25(OH) Status Range Deficiency <20 ng/mL (50nmol/L) Insuffciency 20 - 30 ng/mL (50 - 75 nmol/L) Sufficiency 30 - 100 ng/mL (75 - 250 nmol/L) Toxicity >100 ng/mL (>250 nmol/L) 6-Zph-502157:14 Culture, Urine Comments: Test performed at:[facility] [address] [place] [address] ; ordered by endy JACKSON See Note (Normal) Comments: Urine CultureCulture exhibits no growth. 1-Gnm-052533:14 Urinalysis, Routine (Dipstick) Comments: How was Urine Obtained? CLEAN CATCHTest performed at:[facility] [address] [place] [address] LEUK ESTERASE Negative /ul (Normal) OCCULT BLOOD-UR Negative /ul (Normal) NITRITE UR Negative (Normal) UROBILI Normal mg/dL (Normal) PROT DIPSTX Negative mg/dL (Normal) pH UR 5.0 (Normal) Range: 5.0 - 8.0 SP.GR. DIPSTX 1.030 (Normal) Range: 1.002-1.030 KETONE UR Negative mg/dL (Normal) BILIRUBIN URINE Negative mg/dL (Normal) GLUCOSE, UR Normal mg/dL (Normal) CLARITY Clear (Normal) COLOR Yellow (Normal) 77-Nfv-862745:19 FENTANYL Blood Level Comments: Test performed at:[facility] Fonvktxuck[address] [place] [address] FENTANYL BLD (Normal) Comments: Scanned image report available in EMR :48 CBC W/Diff, Automated Comments: Test performed at:[facility] Pnzyjeqhfy5[address] [place] [address] Absolute Lymph 2.34 {X10_3/ul} (Normal) [...] 4.2-5.4 WBC 4.6 K/mm3 (Normal) Range: 4.4-11.0 :48 Comprehensive Metabolic Profil Comments: Test performed at:[facility] Ebikgbkber[address] [place] [address] GAP 4 (Abnormal) Range: 5-15 [...] CMV Acute Antibody IgM Comments: Test performed at:[facility] Ldfvbbjasa1236 [place] [address] CMVIgM AB < 30.0 AU/mL (Normal) Range: 0.0-29.9 Comments: Negative <30.0 Equivocal 30.0 - 34.9 Positive >34.9A positive result is generally indicative of acuteinfection, react ivation or persistent IgM production.Performed at: - [address] [id number] Director: Yury Cornelius PhD, Phone: [phone] :39 CMV Antibody IgG Comments: Test performed at:[facility] Aiczvbcysc4340 [place] [address] CMV AB IgG < 0.60 U/mL (Normal) Range: 0.00-0.59 Comments: Negative <0.60 Equivocal 0.60 - 0.69 Positive >0.69 :39 Comprehensive Metabolic Profil Comments: Test performed at:[facility] Vlwlastrxi[address] [place] [address] GAP 4 (Abnormal) Range: 5-15 CO2 [...] Prof IgG / IgM Comments: Test performed at:[facility] [address]egtai[address] [place] [address] INTERPRETATION Comment (Normal) Comments: EBV Interpretation ChartInterpretation EBV-IgM VCA-IgG EBNA-IgG EA(D)-IgGEBV Seronegative - - - -Early Phase + - - -Acute Primary + + - +or-InfectionConvalescence/Past - + + +or-InfectionReactivated +or- + + +Infection + Antibody Present - Antibody Absent EB-NAg [id number] 36.1 U/mL (Abnormal) Range: 0.0-17.9 Comments: Negative <18.0 Equivocal 18.0 - 21.9 Positive >21.9 EB-VCA MmI83041 289.0 U/mL (Abnormal) Range: 0.0-17.9 Comments: Negative <18.0 Equivocal 18.0 - 21.9 Positive >21.9 EB-EA IgG 88217 <9.0 U/mL (Normal) Range: 0.0-8.9 Comments: Negative < 9.0 Equivocal 9.0 - 10.9 Positive >10.9 EB-VCA PcV30137 < 36.0 U/mL (Normal) Range: 0.0-35.9 Comments: Negative <36.0 Equivocal 36.0 - 43.9 Positive >43.9 :39 Lipid Profile Comments: Test performed at:[facility] [address]uzs[address] [place] [address] VLDL 11 mg/dL (Normal) Range: 5-40 [...] :39 Vitamin D,25 Hydroxy Comments: Test performed at:[facility] Bkmkurypwh6432 [facility] [address] Vitamin D 25-OH 36.8 ng/mL (Normal) Comments: Vitamin D 25(OH) Status Range Deficiency <20 ng/mL (50nmol/L) Insuffciency 20 - 30 ng/mL (50 - 75 nmol/L) Sufficiency 30 - 100 ng/mL (75 - 250 nmol/L) Toxicity >100 ng/mL (>250 nmol/L) 47-Tgy-418878:32 URINE MICHI CULTURE-ZACHARY COL Comments: PATIENT NOT FASTINGPERFORMED BY: Lab[address] [id number] Information: SRC:SEBASTIÁN [id number] COUNT ([id number]) Result 1 ENTECC (Abnormal) Comments: Enterobacter cloacae [...] S Urine Final report Culture,Comprehensi (Abnormal) ve 36-Smg-96322:50 Urinalysis, Office (80901) UA - LEUKOCYTE ESTERASE Small (Normal) UA - NITRITE Negative (Normal) URINE UROBILINGN ZACHARY 2 mg/dL (Normal) TIMED UA - PROTEIN Negative mg/dL (Normal) UA - PH 6.5 (Normal) UA - BLOOD non-hemolyzed trace (Normal) UA - SPECIFIC GRAVITY 1.010 (Normal) UA - KETONES Negative mg/dL (Normal) UA - BILIRUBIN Negative (Normal) UA - GLUCOSE Negative (Normal) :00 BIBIANA Positive (Abnormal) Comments: Performed at: [facility] [employer])[address] [id number] Director: Yury Cornelius PhD, Phone: [phone] :[phone] ANEX FRANCOIS-[facility] <0.2 {AI} (Normal) Range: 0.0-0.9 WEIGHT CLERK-[facility] >8.0 {AI} (Abnormal) Range: 0.0-0.9 :00 ANTIJO-[facility] <0.2 {AI} (Normal) Range: 0.0-0.9 ANTISCL-[facility] <0.2 {AI} (Normal) Range: 0.0-0.9 C3 108 (Normal) Range: 90-180 Comments: Result Units: mg/dL AdultPerformed at: CB - [facility] [address] [id number] Director: Yury Cornelius PhD, Phone: [phone] C4 15 (Normal) Range: 9-36 Comments: Result [...] 4.2-5.4 WBC 3.6 K/mm3 (Abnormal) Range: 4.4-11.0 CENTB <0.2 {AI} (Normal) Range: 0.0-0.9 CMP GAP 4 (Abnormal) Range: 5-15 CO2 [...] tSJ1 < 0.2 {AI} (Normal) Range: 0.0-0.9 :00 [facility] Comments: How was Urine Obtained? CLEAN CATCH [...] UCLAR Sl. Cloudy (Normal) UCOL Yellow (Normal) 1-Bih-019264:53 CUUR URC See Note (Normal) Comments: ORGANISM 1: Mixed Gram Positive OrganismsColony Count 1000-10,000MIX CONTAM Mixed Contaminants. Submit new specimen if indicated. 04-Cif-294186:07 BIBIANA Positive (Abnormal) Comments: Performed at: - [facility] [id number] Director: Yury Cornelius PhD, Phone: [phone] 93-Jbv-402317:07 CBCD ALC 1.50 {X10_3/ul} (Normal) Range: 0.83-4.51 [...] HEBSAG ttHEBSAG Negative (Normal) Comments: Performed at: [address] [id number] Director: Yury Cornelius PhD, Phone: [phone] at: [address] [place] [id number] Director: Rogelio Randle PhD, Phone: [phone] at: [address] [id number] Director: Murray Mabry MD, Phone: [phone] :[phone] HECAB tHECAB <0.1 {s/co_ratio} (Normal) Range: 0.0-0.9 Comments: Negative: < 0.8Indeterminate: 0.8 - 0.9Positive: > 0.9In order to reduce the incidence of a false positiveresult, the CDC recommends that all s/co ratiosbetween 1.0 and 10.9 be confirmed b y a more specificsupplemental or PCR testing. [facility] offers HCV Abw/Reflex to Verification test #[id number]. :07 HLAB27 tHLAB27 Negative (Normal) Comments: HLA-B*27 NegativeA Lab CLIA ID Number [id number] test was performed using PCR (Polymerase ChainReaction)/SSOP (Sequence Specific Oligonucleotide Probes)technique. SBT (Sequence Based Typing) and/ or SSP(Sequence Specific Primers) may be used as supplementalmethods when necessary. Please contact [facility] CustomerService at if you have any questions.Director of HLA LaboratoryDr Rogelio Randle, PhD :07 RF < 10.0 {IU/mL} (Normal) :07 SED tSEDRATE 13 mm/h (Normal) Range: 0-30 :37 BID 0.21 mg/dL (Normal) Comments: Comments: [id number]; CALCIFEDOIL;PLASMA;RF Range: 0.00-0.30 :37 CBCD ALC 1.03 [...] (Abnormal) Range: 4.4-11.0 :37 CMP Comments: Comments: [id number]; CALCIFEDOIL;PLASMA;RF GAP 7 (Normal) Range: 5-15 CO2 [...] 7-18 GLU 93 mg/dL (Normal) Range: 70-110 :37 LIPID Comments: Comments: [id number]; CALCIFEDOIL;PLASMA;RF VLDL 24 mg/dL (Normal) Range: 5-40 LDL 71 mg/dL (Normal) Range: 0-130 HDL 40 mg/dL (Normal) Comments: Reference RangeHDL <40 mg/dL Low HDL CholesterolHDL >or= 60 mg/dL High HDL Cholesterol CHOL 135 mg/dL (Normal) Comments: <200 mg/dL Aauxigyvm759-729 mg/dL Borderline>240 mg/dL High Risk TRIG 122 mg/dL (Normal) Range: 0-199 Comments: Serum Triglycerides Reference IntervalNormal <150 mg/dLBorderline high 150 - 199 mg/dLHigh 200 - 499 mg/ dLVery High > or = 500 mg/dL :37 TSH 1.70 {uIU/mL} (Normal) Comments: Comments: [id number]; CALCIFEDOIL;PLASMA;RF Range: 0.358-3.74 :30 VITD 57.3 mg/mL (Normal) Comments: Vitamin D 25(OH) Status RangeDeficiency <20 ng/mL (50nmol/L)Insuffciency 20 - 30 ng/mL (50 - 75 nmol/L)Sufficiency 30 - 100 ng/mL (75 - 250 nmol/L)Toxicity >100 ng/mL (>250 nmol/L) :27 URINE MICHI CULTURE-ZACHARY COL Comments: PATIENT NOT FASTINGPERFORMED BY: [facility] Tkohza6141 [facility] [id number] Information: SRC:UR [id number] COUNT ([id number]) Antimicrobial MIHEAD (Normal) Comments: S = Susceptible; [...] primarily for treating urinary tract infections. (CLSI, [id number]) Urine Final report (Abnormal) Culture,Comprehensive [id number] Urinalysis, Office (21049) UA - LEUKOCYTE ESTERASE Trace (Normal) UA - NITRITE Negative (Normal) URINE UROBILINGN ZACHARY TIMED Normal mg/dL (Normal) UA - PROTEIN Negative mg/dL (Normal) UA - PH 6 (Abnormal) UA - BLOOD Hemolyzed Trace (Normal) UA - SPECIFIC GRAVITY 1.025 (Normal) UA - KETONES Small mg/dL (Normal) UA - BILIRUBIN Small (Normal) UA - GLUCOSE Negative (Normal) [id number] MICHI CULTURE-OTHER (32510) Comments: PATIENT NOT FASTINGPERFORMED BY: [facility] [id number] [facility] [id number] Information: SRC:FRANKLIN [id number] Result 1 RRF (Normal) Comments: Routine respiratory christ Upper Respiratory Culture Final report (Normal) : ARUNA 42 U/L (Normal) Range: 25-115 10 [id number] CBCD ANC 5.0 {X10_3/uL} (Normal) Range: 2.0-7.7 [...] 4.2-5.4 WBC 6.8 K/mm3 (Normal) Range: 4.4-11.0 :10 CMP GAP 6 (Normal) Range: 5-15 CO2 [...] 7-18 GLU 104 mg/dL (Normal) Range: 70-110 88-Syd-779072:10 LIPASE 69 U/L (Abnormal) Range: 70-290 99-Xii-792287:17 Urinalysis, Office (69767) UA - LEUKOCYTE ESTERASE Small (Normal) UA [...] (Normal) Range: 16.0-45.0 19 Comments: Performed at: - [facility] [id number] Director: Yury Cornelius PhD, Phone: [phone] : GOLD 194 ng/mL (Normal) Range: 8-252 19 :31 LIVER BID 0.17 mg/dL (Normal) Range: 0.00-0.30 BIT 0.50 mg/dL (Normal) Range: 0.00-1.00 ALT 134 U/L (Abnormal) Range: 12-78 ALK 111 U/L (Normal) Range: 50-136 AST 107 U/L (Abnormal) Range: 15-37 ALB 3.8 g/dL (Normal) Range: 3.4-5.0 TPROT 6.7 g/dL (Normal) Range: 6.4-8.2 :08 URINE MICHI CULTURE-ZACHARY COL Comments: PATIENT NOT FASTINGPERFORMED BY: [facility] [id number] Information: SRC:UR [id number] COUNT (42104) Antimicrobial MIHEAD (Normal) Comments: S = Susceptible; [...] Final report Culture,Comprehensive (Normal) :55 Urinalysis, Office (43928) UA - BILIRUBIN Negative (Normal) UA - BLOOD Negative (Normal) UA - GLUCOSE Negative (Normal) UA - KETONES Negative mg/dL (Normal) UA - LEUKOCYTE ESTERASE Trace (Normal) UA - NITRITE Negative (Normal) UA - PH 5.0 (Normal) Comments: 5.5 UA - PROTEIN Negative mg/dL (Normal) UA - SPECIFIC GRAVITY 1.025 (Normal) Comments: > 1.030 URINE UROBILINGN ZACHARY TIMED Normal mg/dL (Normal) 41-Tbq-597707:50 CHEST WITHOUT CONTRAST Radiology Report See Note [...] Payan M.D.December 29, 2012 at 4:08:08 PM [id number] ly Signed GP/GP If you are the referring physician and would like to consult with theradiologist who provided this interpretation, please contact Nicolas Boyer at [phone]. If this radiolo gist is unavailable, youwill be directed to another radiologist to assist. If you are a patient with a question regarding this report, pleasecontactyour referring physician directly. Professional Interp retation Provided By: [employer], Phone , These documents contain legally protected [...] 12/29/12 1611 Sign by: Bayron Payan MD 05-Akb-57892:46 LIVER Radiology Report See Note (Normal) Comments: [...] size of the right kidney. The right srjwklliniwxtt21.1 cm. Normal renal cortex. The right cortex measure s 0.9 cm. Thereisa 1.5 cm x 1.7 cm by 1.1-cm cyst along the medial portion of the kidney.There is no right hydronephrosis. IMPRESSION:Small right renal cyst. Signed:Bayron Payan M.D.December 16, 2012 at 10:11:37 AM [id number] Signed GP/GP If you are the referring physician and would like to consult with theradiologist who provided this interpretation, please contact Anish brewer M.D. at [phone]. If this radiologist is unavailable, youwill be directed to another radiologist to assist. If you are a patient with a question regarding this report, pleasecontactyour referr ing physician directly. Professional Interpretation Provided By: [employer], Phone , These documents contain legally protected [...] 12/16/12 1014 Sign by: Bayron Payan MD 75-Xdh-193443:17 EBGM EBNA > 8.0 {AI} (Abnormal) Range: 0.0-0.8 Comments: Negative <0.9Equivocal 0.9 - 1.0Positive >1.0 tEBINT Comment (Normal) Comments: EBV Interpretation Chart.Interpretation VCA-IgM EA-IgG VCA-IgG NA-ABS.Susceptible - - - -Acute Infection + +or- +or- -Convalescent Phas e +or- +or- + +Chronic or Reactivated - + + +or-Old Infection - - +or- ++ Antibody Present - Antibody AbsentPerformed at: [facility] [id number] Director: Yury Cornelius PhD, Phone: [phone] EBVG > 8.0 {AI} (Abnormal) Range: 0.0-0.8 [...] 3.4-5.0 TPROT 7.3 g/dL (Normal) Range: 6.4-8.2 :17 TSH 1.08 {uIU/mL} (Normal) Range: 0.358-3.74 27-Jun-20128:46 [...] Signed:Clark D.O.June 27, 2012 at 5:23:04 PM [id number] Signed DL/DL If you are the referring physician and would like to consult with theradiologist who provided this interpretati on, please contact Mone Lazo at [phone]. If this radiologist is unavailable, you will bedirected to another radiologist to assist. If you are a patient with a question regarding this report , pleasecontactyour referring physician directly. Professional Interpretation Provided By: [employer], Phone , These documents contain legally protected [...] on 06/27/121727 Sign by: Kamilla Epperson DO 3-Oyz-976280:41 DEXA BONE DENSITY STUDY (HP) Radiology Report [...] Payan M.D.June 26, 2012 at 11:52:03 AM [id number] Signed GP/GP If you are the referring physician and would like to consult with theradiologist who provided this interpretation, please contact Nicolas Boyer at [phone]. If this radiologist is unavailable, youwill be directed to another radiologist to assist. If you are a patient with a question regarding this report, pleasecontactyour referring physician directly. Professional Interpretation Provided By: [employer], Phone , These documents contain lega lly [...] se documents. Dictated on 06/26/12 1103 by Makeda Payan MDscribed on 06/26/12 1231 by ITS IMPORTSign by Bayron Payan MD on 06/26/12 1232 Sign by: Bayron Payan MD 45-Pig-827850:08 T4, FREE (THYROXINE) Comments: PATIENT NOT FASTINGPERFORMED BY: [facility] [facility] [id number] Information: [id number] ([id number]) T4,Free(Direct) 1.34 ng/dL (Normal) Range: 0.82-1.77 :08 T3, FREE (TRIDOTHYRONINE) (42506) Comments: PATIENT NOT FASTINGPERFORMED BY: [employer] [id number] [facility] [id number] Triiodothyronine,Free,Serum 2.7 pg/mL (Normal) Range: 2.0-4.4 :08 TSH (95654) Comments: PATIENT NOT FASTINGPERFORMED BY: [employer] [id number] [facility] [id number] TSH 1.370 {uIU/mL} (Normal) Range: 0.450-4.500 :58 [...] D deficiency has been defined by the [place] of[place]icine and an Endocrine Society practice guideline as alevel of serum 25-OH vitamin D less than 20 ng/mL (1,2).The Endocrine Society went on to further define vitamin Dinsufficiency as a level between 21 and 29 ng/mL (2).1. IOM ([place] of [employer]). 2010. Dietary reference intakes for calcium and D. [place]: The National Academies Press.2. Micky MF, Jessenia SYKES, Katrin CAMARGO, et al. Evaluation, treatment, and prevention of vitamin D deficiency: an Endocrine Society clinical practice guideline. JCEM. 2010; 96(7): 1911-30.Performed at: [address] [id number] Director: Yury Cornelius PhD, Phone: [phone] 22-Dec-20110:00 CHEST WITHOUT CONTRAST Radiology Report See [...] Signed BP/ BP Professional Interpretation Provided By: [facility], , To consult with a radiologist regarding this report, please call our [id number] juanita e @ Dictated on 12/22/11 1022 [...] D deficiency has been defined by the [place] of[place] and an Endocrine Society practice guideline as alevel of serum 25-OH vitamin D less than 20 ng/mL (1,2).The Endocrine Society went on to further define vitamin Dinsufficiency as a level between 21 and 29 ng/mL (2).1. IOM ([place]). 2010. Dietary reference intakes for calcium and D. [place]: The National Academies Press.2. Micky MF, Jessenia [place], Katrin CAMARGO, et al. Evaluation, treatment, and prevention of vitamin D deficiency: an Endocrine Society clinical practice guideline. JCEM. 2010; 96(7): 1911-30.Performed at: [address] [id number] Director: Alma Rodríguez MD, Phone: [phone] :[phone] CBCD,SMEAR DIFF RED CELL MORPH SeeNote [...] 7-18 GLU 88 mg/dL (Normal) Range: 70-110 07-Oqp-43831:47 VIT D,25 80985 81.4 ng/mL (Normal) Range: 30.0-100.0 Comments: Vitamin D deficiency has been defined by the [place] of[facility] and an Endocrine Society practice guideline as alevel of serum 25-OH vitamin D less than 20 ng/mL (1,2).The Endocrine Society went on to further define vitamin Dinsufficiency as a level between 21 and 29 ng/mL (2).1. IOM ([place]). 2011. Dietary reference intakes for calcium and D. [place]: The National Academies Press.2. Micky MF, Jessenia [place], Katrin CAMARGO, et al. Evaluation, treatment, and prevention of vitamin D deficiency: an Endocrine Society clinical practice guideline. JCEM. 2010; 96(7): 1911-30. Please note reference interval changePerformed at: [address] [id number] Director: Alam Rodríguez MD, Phone: [phone] 29-Bgm-829560:11 CHEST WITHOUT CONTRAST Radiology Report See Note [...] evaluation, ifclinicallywarranted. Dictated on 02/16/11 1124 by Sarahi Valera MDyTranscribed on 02/16/114 by ITS IMPORTSign by Luz Valera MD [...] >240 mg/dL High Risk :18 VIT D,25 24412 78.0 ng/mL (Normal) Comments: appt 11/14/10 Range: 32.0-100.0 Comments: Recent studies consider the lower limit of 32.0 ng/mL to bradley threshold for optimal health.William VIVAR. J Nutr. 2004;135(2):317-22.Performed at: [facility] [id number] [place], [place] [id number]Lab Director: Alma Rodríguez MD, Phone: [phone] :[phone] COMP METABOLIC GAP 9 (Normal) Range: [...] >240 mg/dL High Risk :19 VIT D,25 89875 55.3 ng/mL (Normal) Range: 32.0-100.0 Comments: Recent studies consider the lower limit of 32.0 ng/mL to bradley threshold for optimal health.William VIVAR. J Nutr. 2004;135(2):317-22.Performed at: [place] [address]Lab Director: Alma Rodríguez MD, Phone: [phone] 71-Ogq-04182:00 BILAT SCRN DIGITAL & CAD Radiology Report [...] COLUNGA MCKESSONSign by SLOANE TRIVEDI on 06/14/10 1359 Sign by: SLOANE TRIVEDI 31-Fkg-22793:57 COMP METABOLIC ALK P 82 U/L (Normal) [...] CHOL 204 mg/dL (Abnormal) Comments: <200 mg/dL Gbgkubbon985-079 mg/dL Borderline>240 mg/dL High Risk HDL 48 mg/dL (Normal) Comments: Reference RangeHDL <40 mg/dL Low HDL CholesterolHDL >or= 60 mg/dL High HDL Cholesterol LDL 136 mg/dL (Abnormal) Range: 0-130 TRIG 102 mg/dL (Normal) Comments: Serum Triglycerides Reference IntervalNormal <150 mg/dLBorderline high 150 - 199 mg/dLHigh 200 - 499 mg/ dLVery High > or = 500 mg/dL :57 VIT D,25 58777 53.8 ng/mL (Normal) Range: 32.0-100.0 Comments: Recent studies consider the lower limit of 32.0 ng/mL to bradley threshold for optimal health.William VIVAR. J Nutr. 2004;135(2):317-22.Performed at: - [facility] [id number] Director: Alma Rodríguez MD, Phone: [phone] :[phone] LIPID HDL 49 mg/dL (Normal) Comments: [...] CHOL 190 mg/dL (Normal) Comments: <200 mg/dL Gpaylmcms719-975 mg/dL Borderline>240 mg/dL High Risk :13 LIVER ALB 3.6 g/dL (Normal) Range: 3.4-5.0 ALK P 92 U/L (Normal) Range: 50-136 ALT 21 U/L (Normal) Range: 12-78 AST 15 U/L (Normal) Range: 15-37 D BILI 0.13 mg/dL (Normal) Range: 0.00-0.30 T BILI 0.50 mg/dL (Normal) Range: 0.00-1.00 T PROT 6.9 g/dL (Normal) Range: 6.4-8.2 :13 VIT D,25 56084 36.7 ng/mL (Normal) Range: 32.0-100.0 Comments: Recent studies consider the lower limit of 32.0 ng/mL to bradley threshold for optimal health.William VIVAR. J Nutr. 2004;135(2):317-22.Performed at: [address] [id number] Director: Milan Torres MD 4-Ggt-223182:43 ABDOMEN/PELVIS WITH CONTRAST Radiology Report See Note (Normal) Comments: Exam Number: [id number] CLINICAL:Abdominal pain. CT ABDOMEN AND PELVIS WITH [...] significant spondylolisthesis. Reported By: LUZ VALERA M.D. 17-Gax-14992:14 CBCD,SMEAR DIFF BAND 2 % (Normal) Range: [...] {uIU/mL} (Normal) Range: 0.358-3.74 :14 VIT D,25 32704 38.9 ng/mL (Normal) Range: 32.0-100.0 Comments: Recent studies consider the lower limit of 32.0 ng/mL to bradley threshold for optimal health.William VIVAR. J Nutr. 2004;135(2):317-22.Performed At: [facility] [place], [place] [id number] :10 C-REACTIVE PROT 40.70 mg/L (Abnormal) Range: 0.0-3.0 Comments: C-Reactive Protein (CRP) provides useful information for thediagnosis, therapy and monitoring of inflammatory processesand associated diseases. For the evaluation of Relative Riskfor Cardiovascular Dise ase, a High Sensitivity CRP (HSCRP)should be ordered. :10 ESR SED RATE 50 (Abnormal) Range: 0-20 :03 Urinalysis, Office (39589) UA - BILIRUBIN Negative (Normal) UA - [...] $$$ <=4 S TRIMETHOPRIM/SULFAMETHOXAZO $ >=320 R 83-Fkj-63174:41 BILAT SCRN DIGITAL & CAD Radiology Report See Note (Normal) Comments: Exam Number: [id number] MAMMOGRAM, BILATERAL SCREENING DIGITAL AND CAD HISTORYRoutine [...] mammograms werealso examined with computer-aided detection software ([employer], [employer] Reported By: SLOANE TRIVEDI M.D. 67-Cms-91608:55 BMP BUN 20 mg/dL (Abnormal) Range: 7-18 [...] T PROT 6.3 g/dL (Abnormal) Range: 6.4-8.2 34-Rim-842562:22 COMP METABOLIC A/G 1.1 {RATIO} (Normal) Range: [...] - 9.1 <0.2 Postmenopausal 23.0 - 116.3 64-Sez-482173:22 LUTEIN HOR 4283 15.8 m[iU]/mL (Normal) Range: [...] 15.9 - 54.0 Contraceptives 0.7 - 5.6 47-Hdx-981187:22 PROLACTIN 4465 10.3 ng/mL (Normal) Range: 2.8-29.2 [...] 208.5 Postmenopausal 1.8 - 20.3Per formed At: [facility] [place], [place] [id number] 94-Fti-476349:22 ROUTINE UA BILIRUBIN URINE SeeNote (Normal) Comments: [...] Report See Note (Normal) Comments: Exam Number: [id number] CLINICAL: Headaches, memory loss MRI BRAIN WITH [...] a demonstrated aneurysm or occlusion of the [place] of [place]. There is no extra-axial fluid [...] {uIU/mL} (Normal) Range: 0.34-4.82 :08 VIT D,25 37205 38.2 ng/mL (Normal) Range: 32.0-100.0 Comments: Recent studies consider the lower limit of 32.0 ng/mL to bradley threshold for optimal health.William VIVAR. J Nutr. 2004;135(2):317-22.Performed At: [address] [id number] :08 VITAMIN B12 316 pg/mL (Normal) Range: 211-911 :52 BRAIN/HEAD WITHOUT CONTRAST Radiology Report See Note (Normal) Comments: Exam Number: [id number] CLINICAL:58 year old female with 39 year [...] further evaluation. Reported By: SLOANE VARGAS M.D. 23-Gke-407658:49 KIDNEY (HP) Radiology Report See Note (Normal) Comments: Exam Number: [id number] CLINICAL:Renal insufficiency RENAL ULTRASOUND COMPARISON:None. FINDINGS: The [...] 3.5-5.1 NA 141 mmol/L (Normal) Range: 136-145 80-Rmt-370105:25 CHEST, PA AND LATERAL (MT) Radiology Report See Note (Normal) Comments: Exam Number: [id number] CHEST PA AND LATERAL STATEMENTLeft sided rib [...] Comments: GLU,2HPPG 75gm GLUC PPG GLUP from 0606:L62475R. Comments: Glucose result less than 50 mg/dL [...] 6.7 g/dL (Normal) Range: 6.4-8.2 :42 EBVIgG/M 888129 EB-EA IgG 77870 143 AU/mL (Abnormal) Range: 0-99 Comments: Negative <100 Equivocal 100 - 120 Positive >120 EB-NAg [id number] 1871 AU/mL (Abnormal) Range: 0-99 Comments: Negative <100 Equivocal 100 - 120 Positive >120 EB-VCA [id number] 3769 AU/mL (Abnormal) Range: 0-99 Comments: Negative <100 Equivocal 100 - 120 Positive >120 EB-VCA [id number] 13 AU/mL (Normal) Range: 0-99 Comments: Negative [...] + Antibody Present - Antibody AbsentPerformed At: [facility] [address] [place], [place] [id number] :42 ROUTINE UA BILIRUBIN URINE SeeNote (Normal) [...] Report See Note (Normal) Comments: Exam Number: [id number] MAMMOGRAM, BILATERAL SCREENING DIGITAL AND CAD HISTORYRoutine [...] werealso examined with computer-aided detection softw are (FlyCast, [employer].). Reported By: SLOANE TRIVEDI M.D. :34 BIBIANA-D 261600 BIBIANA-DIRECT 51 AU/mL (Normal) Range: 0-99 Comments: [...] 47-70 WBC 3.9 K/mm3 (Abnormal) Range: 4.4-11.0 8-Jvy-291054:34 COMP METABOLIC A/G 1.6 {RATIO} (Normal) Range: [...] {IU/mL} (Normal) Range: 0.0-13.9 Comments: Performed At: [address] [id number] :34 TSH 2.12 {uIU/mL} (Normal) Range: 0.34-4.82 [...] 500 mg/dL VLDL 38 mg/dL (Normal) Range: :20 LIPID CHOL 183 mg/dL (Normal) Comments: [...] 500 mg/dL VLDL 22 mg/dL (Normal) Range: :20 LIVER ALB 3.5 g/dL (Normal) Range: [...] $$$ <=16 S TRIMETHOPRIM/SULFAMETHOXAZ $$ <=10 S 59-Obm-480812:08 ROUTINE UA BILIRUBIN URINE SeeNote (Normal) Comments: [...] 0.2 EU/dl (Normal) Range: 0.2 - 1.0 66-Ano-202335:45 CULTURE, URINE URINE CULTURE See Note {CFU/mL} [...] Migraine Planned Observations C-REACT PROT HIGH SENS(hsCRP) (65626)Indication: Pain in unspecified joint On: 7-Ngn-811278:28 Request Sedimentation Rate-ESR (28717)Indication: Pain in unspecified joint On: 1-Aal-130203:27 Request Metabolic Panel, Comprehensive (43017)Indication: Pain in unspecified joint On: 4-Dax-499983:27 Request CBC (Auto) (34635)Indication: Pain in unspecified joint On: 4-Rml-057555:27 Request FECAL OCCULT- Tubes sent home (96317)Indication: Encounter for screening for malignant neoplasm of colon (Renamed from Special screening for malignant neoplasms, colon) On: 8-Bep-208578:14 Request CBC WITH MANUAL DIFF (20083)Indication: Abnormal WBC count On: 48-Wif-462942:12 Request METABOLIC PANEL, COMPREHENSIVE (69067)Indication: Mixed hyperlipidemia On: 18-Dqu-209369:15 Request CBC W/AUTO DIFF WBC (08196)Indication: Mixed hyperlipidemia On: 91-Zis-390840:15 Request LIPID PANEL (64112)Indication: Mixed hyperlipidemia On: 02-Yzo-388854:15 Request TSH (08253)Indication: Anxiety On: 36-Fvv-967491:15 Request CALCIFIDIOL (74569) VIT D 25Indication: Vitamin D deficiency, unspecified On: 86-Bhh-340051:15 Request CALCIFEDIOL (64890)Indication: Vitamin D deficiency, unspecified On: 20-Sep-20159:12 Request EBV Panel (11798)Indication: Fatigue On: 06-Cwy-808361:51 Request SPEP (64840)Indication: Abnormal CBC On: :43 Request UPEP (35726)Indication: Abnormal CBC On: :30 Request serum free light chains (00724)Indication: Abnormal CBC On: : Request urine immunofixation (99389)Indication: Abnormal CBC On: :29 Request serum immunofixation (17907)Indication: Abnormal CBC On: :29 Request LIPID PANEL (23585)Indication: Mixed hyperlipidemia On: 84-Qgv-092571:46 Request CALCIFIDIOL (47293) VIT D 25Indication: Vitamin D deficiency, unspecified On: 35-Uxt-553588:41 Request METABOLIC PANEL, COMPREHENSIVE (47353)Indication: Mixed hyperlipidemia On: :12 Request LIPID PANEL (94485)Indication: Mixed hyperlipidemia On: :12 Request CBC WITH MANUAL DIFF (25896)Indication: postmenopausal without estrogen On: :02 Request METABOLIC PANEL, COMPREHENSIVE (67373)Indication: postmenopausal without estrogen On: 63-Kgo-060899:02 Request CALCIFIDIOL (02806) VIT D 25Indication: Vitamin D deficiency, unspecified On: :01 Request CALCIFEDIOL (59523)Indication: Vitamin D deficiency, unspecified On: :26 Request CBC WITH MANUAL DIFF (10956)Indication: Mixed hyperlipidemia On: :26 Request Metabolic Panel, Comprehensive (20327)Indication: Mixed hyperlipidemia On: :26 Request Lipid Panel (48704)Indication: Mixed hyperlipidemia On: :26 Request METABOLIC PANEL, COMPREHENSIVE (07726)Indication: Mixed hyperlipidemia On: :47 Request LIPID PANEL (48090)Indication: Mixed hyperlipidemia On: :47 Request CALCIFIDIOL (60797) VIT D 25Indication: Vitamin D deficiency, unspecified On: :47 Request EBV Panel (13327)Indication: Hepatitis On: :38 Request CMV IGM ANTBDY (16360)Indication: Hepatitis On: :38 Request CMV ANTIBODY (32574)Indication: Hepatitis On: 46-Szv-11716:38 Request CALCIFEDIOL (57410)Indication: Mixed hyperlipidemia On: :56 Request CBC with manual diff (45415)Indication: Mixed hyperlipidemia On: :56 Request Metabolic Panel, Comprehensive (42403)Indication: Mixed hyperlipidemia On: :56 Request TSH (THYROID STIMULATING HORMONE) (83487)Indication: Mixed hyperlipidemia On: :56 Request LIPID PANEL (08892)Indication: Mixed hyperlipidemia On: :55 Request HEPATIC FUNCTION PANEL (37111)Indication: Mixed hyperlipidemia On: :55 Request HEPATIC FUNCTION PANEL (14806)Indication: Unspecified Diagnosis On: 24-Euy-489205:25 Request Rapid Strep Test, Office (34515)Indication: Pharyngitis, acute On: 72-Lof-842514:05 Request Metabolic Panel, Comprehensive (58648)Indication: Epigastric Pain (Renamed from Abdominal pain, epigastric) On: 95-Mfp-556060:24 Request Comments: labs stat. Lipase (21348)Indication: Epigastric Pain (Renamed from Abdominal pain, epigastric) On: 82-Rtj-284141:24 Request Amylase (55528)Indication: Epigastric Pain (Renamed from Abdominal pain, epigastric) On: 81-Muz-675766:24 Request CBC, Platelets & Auto Diff (95431)Indication: Epigastric Pain (Renamed from Abdominal pain, epigastric) On: 05-Fef-005731:24 Request URINE MICHI CULTURE-IDENTIFICATN (26547)Indication: Hematuria (Renamed from Blood in the urine) On: 68-Osn-342151:23 Request ASM (ANTI SMOOTH MUSCLE ANTIBODY) (47660)Indication: Abnormal finding of blood chemistry, unspecified On: :26 Request CERULOPLASMIN (83530)Indication: Abnormal finding of blood chemistry, unspecified On: :26 Request FERRITIN (70898)Indication: Abnormal finding of blood chemistry, unspecified On: 41-Hkt-207135:26 Request HEPATIC FUNCTION PANEL (07159)Indication: Mixed hyperlipidemia On: 79-Xkk-686328:47 Request HEPATIC FUNCTION PANEL (26838)Indication: Abnormal finding of blood chemistry, unspecified On: 73-Oqc-964412:17 Request Comments: 1 week HEPATIC FUNCTION PANEL (43044)Indication: Migraine On: :26 Request TSH (68037)Indication: Migraine On: :26 Request HEPATITIS PANEL (75005)Indication: Abnormal finding of blood chemistry, unspecified On: :25 Request EBV Panel (36240)Indication: Abnormal finding of blood chemistry, unspecified On: 84-Tdy-954581:24 Request Vitamin D Hydroxy (74261)Indication: Vitamin D deficiency, unspecified On: :42 Request CBC WITH MANUAL DIFF (03342)Indication: Irritable bowel syndrome On: :42 Request METABOLIC PANEL, COMPREHENSIVE (32491)Indication: Irritable bowel syndrome On: :42 Request LIPID PANEL (86261)Indication: Mixed hyperlipidemia On: :42 Request CALCIFEDIOL (20277)Indication: Vitamin D deficiency, unspecified On: :06 Request CBC with manual diff (97559)Indication: Mixed hyperlipidemia On: :06 Request Lipid Panel (59398)Indication: Mixed hyperlipidemia On: :06 Request Metabolic Panel, Comprehensive (82112)Indication: Mixed hyperlipidemia On: :06 Request Vitamin D Hydroxy (80769)Indication: Vitamin D deficiency, unspecified On: :17 Request CBC WITH MANUAL DIFF (27435)Indication: Lung nodule On: :17 Request METABOLIC PANEL, COMPREHENSIVE (14147)Indication: Irritable bowel syndrome On: :17 Request LIPID PANEL (67153)Indication: Mixed hyperlipidemia On: 62-Oxm-272824:07 Request C-REACTIVE PROTEIN (51014)Indication: Chest pain On: :20 Request SED RATE ERYTHROCYTE (58565)Indication: Chest pain On: :20 Request METABOLIC PANEL, COMPREHENSIVE (97052)Indication: Chest pain On: :20 Request CBC WITH MANUAL DIFF (36057)Indication: Chest pain On: :20 Request D-Dimer (57878)Indication: Chest pain On: 03-Dfm-69729:20 Request Comments: stat METABOLIC PANEL, COMPREHENSIVE (87122)Indication: Osteopenia On: 48-Ptf-815292:00 Request TSH (37429)Indication: Depressive disorder On: 42-Kjj-518336:58 Request LIPID PANEL (72039)Indication: Mixed hyperlipidemia On: 77-Laq-110466:57 Request Vitamin D Hydroxy (16939)Indication: Vitamin D deficiency, unspecified On: :57 Request Metabolic Panel, Comprehensive (80150)Indication: Hypopotassemia On: 99-Yih-987038:58 Request CALCIFEDIOL (83071)Indication: Vitamin D deficiency, unspecified On: :58 Request Lipid Panel (95410)Indication: Mixed hyperlipidemia On: :57 Request METABOLIC PANEL, COMPREHENSIVE (64655)Indication: Migraine On: 23-Jes-491904:53 Request LIPID PANEL (76166)Indication: Mixed hyperlipidemia On: 28-Svk-865416:53 Request Vitamin D Hydroxy (02830)Indication: Vitamin D deficiency, unspecified On: 20-Dvj-926578:53 Request Vitamin D Hydroxy (10343)Indication: Vitamin D deficiency, unspecified On: 17-Tzy-114587:49 Request METABOLIC PANEL, COMPREHENSIVE (05435)Indication: Irritable bowel syndrome On: 38-Hvw-948685:48 Request LIPID PANEL (73768)Indication: Mixed hyperlipidemia On: 05-Dbb-155642:48 Request METABOLIC PANEL, COMPREHENSIVE (87916)Indication: Hypopotassemia On: 98-Oya-599271:56 Request LIPID PANEL (02011)Indication: Mixed hyperlipidemia On: 66-Cco-337482:56 Request Vitamin D Hydroxy (11693)Indication: Vitamin D deficiency, unspecified On: 94-Qwz-633972:56 Request HEPATIC FUNCTION PANEL (08373)Indication: Mixed hyperlipidemia On: :07 Request LIPID PANEL (67136)Indication: Mixed hyperlipidemia On: 86-Lpq-862296:07 Request URINE MICHI CULTURE-IDENTIFICATN (53603)Indication: Dysuria On: 9-Cpu-994397:40 Request URINALYSIS W/O MICRO (16764)Indication: Other signs and symptoms in breast On: 37-Zdp-786791:31 Request METABOLIC PANEL, COMPREHENSIVE (66670)Indication: Other signs and symptoms in breast On: 62-Hss-421535:31 Request TSH ([id number])Indication: Other signs and symptoms in breast On: :31 Request Vitamin D Hydroxy ([id number]) On: :30 Request CBC WITH MANUAL DIFF (60757) On: :30 Request METABOLIC PANEL, COMPREHENSIVE (70905) On: :30 Request VITAMIN B-12 (CYANOCOBALAMIN) (02120) On: :30 Request TSH ([id number]) On: :30 Request Metabolic Panel, Basic (71937) On: : Request HEPATIC FUNCTION PANEL (81348)Indication: Mixed hyperlipidemia On: :21 Request LIPID PANEL ([id number])Indication: Mixed hyperlipidemia On: : Request METABOLIC PANEL, COMPREHENSIVE ([id number])Indication: Hypoglycemia On: 15-Kdn-822349:51 Request LIPID PANEL (11503)Indication: Low HDL (under 40) On: 51-Hys-774583:45 Request Glucose, PP/2 Hour (10003)Indication: Fatigue On: 2-Cok-537186:03 Request VITAMIN B-12 (CYANOCOBALAMIN) (18913)Indication: Fatigue On: 5-Qfd-624608:03 Request URINALYSIS W/O MICRO (96305)Indication: Fatigue On: 4-Fyh-587289:03 Request TSH ([id number])Indication: Fatigue On: 0-Kjy-978130:03 Request CBC WITH MANUAL DIFF ([id number])Indication: Fatigue On: 1-Mxf-718402:03 Request METABOLIC PANEL, COMPREHENSIVE (90192)Indication: Fatigue On: 1-Pcu-936361:03 Request BIBIANA (ANTINUCLEAR ANTIBODY) ([id number])Indication: Pain in unspecified joint On: :28 Request C-REACTIVE PROTEIN ([id number])Indication: Pain in unspecified joint On: 6-Hgj-783639:28 Request CBC WITH MANUAL DIFF ([id number])Indication: Pain in unspecified joint On: 8-Vjj-663641:28 Request METABOLIC PANEL, COMPREHENSIVE (38171)Indication: Pain in unspecified joint On: Request RHEUMATOID FACTOR-QUANT (73319)Indication: Pain in unspecified joint On: Request SED RATE ERYTHROCYTE (15818)Indication: Pain in unspecified joint On: Request TSH ([id number])Indication: Pain in unspecified joint On: Request METABOLIC PANEL, COMPREHENSIVE (25359)Indication: Low HDL (under 40) On: Request LIPID PANEL (85179)Indication: Low HDL (under 40) On: Request LIPID PANEL ([id number])Indication: Low HDL (under 40) On: Request HEPATIC FUNCTION PANEL ([id number])Indication: Low HDL (under 40) On: : Request Comments: 4 mos LIPID PANEL ([id number])Indication: Low HDL (under 40) On: : Request Comments: 3 mos HEPATIC FUNCTION PANEL (25233)Indication: Low HDL (under 40) On: : Request Comments: 3 mos Planned Procedures Flu Vaccine (Quadrivalent) On: 27-May-2018 Intent 65313Tk: Rylee Bales DO Comments: Lot #[id number]-L dltd, IMDose prefilled syringegiven [facility]: [facility] and [facility] signed Rylee Bales DO Wax CurettesBy: Nii ABREU, On: 12-Feb-2018 Intent Rylee Nelson DO Ear Irrigation ([id number])By: On: 12-Feb-2018 Intent Rylee Bales DO, DO, Comments: small amount of yellow was irrigated out of right ear, patient tolerated without difficulty ear wax currette used to remove remainder of wax Rylee X-RAY OF SHOULDER, TWO VIEWS On: 12-Feb-2018 Intent ([id number])By: Rylee Bales DO, DO, Kathleen ELECTROCARDIOGRAM, COMPLETE On: 12-Feb-2018 Intent (ECG) ([id number])By: Rylee Bales DO, DO, Kathleen Ultrasound - ThyroidBy: Nii On: 30-Jan-2018 Intent DO, Rylee Nii DO, Rylee Wax CurettesBy: Dasia Oliver On: 12-Sep-2017 Intent Ear Irrigation ([id number])By: On: 12-Sep-2017 Intent Dasia Oliver X-RAY OF HAND, THREE VIEWS On: 16-Aug-2017 Intent ([id number])By: Rylee Bales DO Nii DO, Rylee Radiology - Abdomen SeriesBy: On: 02-Jul-2017 Intent Nii DORylee Nii DO, Comments: FLAT PLATE Rylee ACUTE ABDOMINAL SERIES On: 27-Jun-2017 Intent (54571)By: Rylee Bales DO Nii DO, Rylee Flu Vaccine (Quadrivalent) On: 28-May-2017 Intent 68140Me: Rylee Bales DO Comments: lot: [id number]: 01/06/18ite/route: L freddy, IMamt: 0.5mlVIS and ABN signed when applicableChelsea, ASSEMBLY OPERATOR Nii ABREU, Rylee SCREENING DIGITAL On: 28-May-2017 Intent TOMOSYNTHESIS OF BREAST ([id number])By: Rylee Bales DO Nii DO, Rylee THYROID ULTRASOUND (85523)By: On: 02-Jan-2017 Intent Nii DO Rylee Nii DO, Rlyee Doppler Ultrasound OtherBy: On: 15-Aug-2016 Intent Nii DOSherrellRylee Nii DO, Comments: left lower extremity Rylee PNEUM VAC ADLT/IMUMNOSPR, On: 07-May-2016 Intent SBC/INTRM ([id number])By: Nii Comments: Lot:[id number]:11/24/17Dose:0.5mgRoute:imSite:r arm Given By:JKMVIS signed DO, Rylee Bales DORylee DEXA SCAN AXIAL SKELETON On: 25-Apr-2016 Intent ([id number])By: Rylee Bales DO Nii DO, Rylee MAMMOGRAM, SCREENING, BOTH On: 25-Apr-2016 Intent BREAST (05820)By: Rylee Bales DO Nii DO, Rylee Flu Vaccine (Quadrivalent) On: 25-Apr-2016 Intent 63717Au: Herber Santosha Comments: FLUlot: [id number]:01/05site:Lt deltoidroute:IMdose:.5mlDEYOSELYN WEBER DEXA SCAN AXIAL SKELETON On: 01-Mar-2016 Intent ([id number])By: Rylee Bales DO, DO, Kathleen Radiology - ChestBy: Ilsa On: 13-Jun-2015 Intent MARLO Isabel Flu Vaccine (Quadrivalent) On: 27-Apr-2015 Intent 38873Gq: Manda Higginbotham MD Comments: Lot:[id number]:01/19/16Dose:0.5mLRoute:IMSite:L DltdGiven By:DORIS signed MAMMOGRAM, SCREENING, BOTH On: 15-Mar-2015 Intent BREAST (29930)By: Manda Higginbotham MD ELECTROCARDIOGRAM, COMPLETE On: 30-Dec-2014 Intent (ECG) (98812)By: Nii ABREU, Comments: nsr no acute chg Rylee Nelson DO Prevnar 13 ([id number])By: Anahy On: 03-Aug-2014 Intent Manda KRISHNAN SPECIMEN HANDLING/TRANSPORT On: 14-Jun-2014 Intent (71134)By: Ilsa SELLERS Isabel IMMUNIZ ADMNIN, 1 VAC, On: 03-May-2014 Intent SNGL/COMBO (98677)By: Joey, Nurse FLU VAC, SPLIT, >3 YEARS, On: 03-May-2014 Intent INTRAMUSC (23980)By: Anahy Comments: Lot:[id number]:01/18/15Dose:0.5mLRoute:IMSite:L DltdGiven By:Manda Crum MD MAMMOGRAM, SCREENING, BOTH On: 09-Feb-2014 Intent BREAST ([id number])By: Anahy KRISHNAN, Comments: due 07-04 Manda Torres DEXA SCAN AXIAL SKELETON On: 09-Feb-2014 Intent ([id number])By: Manda Higginbotham MD Comments: due 07-04 Eprescribed prescriptions On: 19-Nov-2013 Intent (G8553)By: Rylee Bales DO, DO, Kathleen Eprescribed prescriptions On: 02-Sep-2013 Intent (G8553)By: Ilsa SELLERS, Isabel FLU VAC, SPLIT, >3 YEARS, On: 26-May-2013 Intent INTRAMUSC (67840)By: Anahy Comments: Lot:[id number]:Dose:0.5mLRoute:IMSite:L DltdGiven By:Manda Crum MD IMMUNIZ ADMNIN, 1 VAC, On: 26-May-2013 Intent SNGL/COMBO ([id number])By: Francesca Crystal MAMMOGRAM, SCREENING, BOTH On: 14-May-2013 Intent BREASTS ([id number])By: Manda Higginbotham MD Eprescribed prescriptions On: 30-Dec-2012 Intent (G8553)By: Alaina Patricia LPN Ultrasound - LiverBy: Fast DO, On: 10-Dec-[address] - ChestBy: Fast DO, Iwona A On: 09-Dec-2012 Intent Comments: december Eprescribed prescriptions On: 09-Dec-2012 Intent (G8553)By: Zabrina Farmer Eprescribed prescriptions On: 01-Aug-2012 Intent (G8553)By: Zabrina Farmer EKG (69212)By: Darian On: 10-Jun-2012 Intent Zabrina Comments: ekg showed normal sinus rhythym, normal axis, no acute st/t wave changes Eprescribed prescriptions On: 10-Jun-2012 Intent (G8553)By: Fast DO, Iwona A DXA, BONE DENSITY, AXIAL On: 10-Jun-2012 Intent SKELETON ([id number])By: Fast DO, Iwona A CT - ChestBy: Fast DO, Iwona A On: 10-Jun-2012 Intent Eprescribed prescriptions On: 10-Jun-2012 Intent (G8553)By: Zabrina Farmer Breast Screening - On: 02-Jun-2012 Intent BilateralBy: Fast DO, Iwona A TDAP VACCINE >7 IM ([id number])By: On: 04-Dec-2011 Intent Zabrina Farmer Comments: lot [id number] 06/02, L arm IM, perfileld Alaina CT - ChestBy: Fast DO, Iwona A On: 04-Dec-2011 Intent FLU VAC, SPLIT, >3 YEARS, On: 29-May-2011 Intent INTRAMUSC (48251)By: Darian, Comments: Lot: [id number]: 01/19/12Site: Lt DeltoidDose: Prefilled DoseARidingISHMAEL CT - ChestBy: Hailey Rivera DOa A On: 29-May-2011 Intent IMMUNIZ ADMNIN, 1 VAC, On: 29-May-2011 Intent SNGL/COMBO (05376)By: Zabrina Farmer Pulse Oximetry (95517)By: Miguel On: 16-Feb-2011 Intent DO Iwona A Comments: 99 CT - ChestBy: Iwona Rivera DO A On: 16-Feb-2011 Intent Comments: stat-pe protocol- call wet read Radiology - ChestBy: Ciesa On: 06-Feb-2011 Intent MARLO Isabel Pjiziclha-Gfn-Xjuas (08561)By: On: 06-Feb-2011 Intent Ciesa MRALO Marlen Phillips Eprescribed prescriptions On: 03-Jan-2011 Intent (G8553)By: Iwona Rivera DO EKG (18419)By: Anahy KRISHNAN, On: 15-Dec-2010 Intent Manda Torres Eprescribed prescriptions On: 17-Nov-2010 Intent (G8553)By: Iwona Rivera DO MAMMOGRAM, SCREENING, BOTH On: 06-Mar-2010 Intent BREASTS (08719)By: Iwona Rivera DO DXA, BONE DENSITY, AXIAL On: 06-Mar-2010 Intent SKELETON (17460)By: Iwona Rivera DO CT - Abdomen & PelvisBy: Fast On: 22-Aug-2009 Intent Iwona ABREU A PNEUM VAC ADLT/IMUMNOSPR, On: 22-Apr-2009 Intent SBC/INTRM ([id number])By: Stacy STINSON, Samantha IMMUNIZ ADMNIN, 1 VAC, On: 22-Apr-2009 Intent SNGL/COMBO (39004)By: Stacy STINSON, Comments: Lot #: [id number] date: mount given: 0.5 mlRoute: IMSite given: right deltoidGiven by: ISHMAEL Galindo IMMUNIZ ADMNIN, 1 VAC, On: 22-Apr-2009 Intent SNGL/COMBO (31785)By: Samantha Kumar RN FLU VAC, SPLIT, >3 YEARS, On: 22-Apr-2009 Intent INTRAMUSC (69899)By: Stacy STINSON, Comments: Lot #: [id number] date: mount given: 0.5 mlRoute: IMSite given: left deltoidGiven by: ISHMAEL Galindo Pulse Oximetry (38304)By: On: 15-Apr-[address] - Brain/HeadBy: Miguel ABREU, On: 19-Nov-2008 Intent Iwona A Radiology - ChestBy: Ciesa On: 14-Oct-2008 Intent Marlen SELLERS Pulse Oximetry ([id number])By: On: 14-Oct-2008 Intent Marlen Rosenbaum CNP Comments: done BC Aerosol Treatment (08258)By: On: 14-Oct-2008 Intent Marlen Rosenbaum CNP Comments: done BC Spirometry (29363)By: On: 12-Oct-2008 Intent Zabrina Farmer Comments: good effort and curve normal MAMMOGRAM, SCREENING, BOTH On: 06-Oct-2008 Intent BREASTS (67612)By: Iwona Rivera DO Aerosol Treatment (14804)By: On: 08-Sep-2008 Intent Marlen Rosenbaum CNP Pulse Oximetry (47882)By: On: 08-Sep-2008 Intent Marlen Rosenbaum CNP EKG (82274)By: Nii ABREU, On: 02-Jul-2008 Intent Rylee Nelson DO Comments: nsr nothing acute-- v1-v1 lead placement(female) FLU VAC, SPLIT, >3 YEARS, On: 11-Jun-2008 Intent INTRAMUSC (93526)By: Darian, Comments: inj given left deltoid no complicationslot:[id number]:12/28 Zabrina IMMUNIZ ADMVINI, 1 VAC, On: 11-Jun-2008 Intent SNGL/COMBO (68741)By: Zabrina Farmer EKG (34021)By: Iwona Rivera DO On: 22-Dec-2007 Intent A Comments: ekg showed normal sinus rhythym, normal axis, no acute st/t wave changes MAMMOGRAM, SCREENING, BOTH On: 25-Aug-2007 Intent BREASTS (01512)By: Iwona Rivera DO IMMUNIZ ADMNIN, 1 VAC, On: 23-May-2007 Intent SNGL/COMBO (18128)By: Iwona Rivera DO FLU VAC, SPLIT, >3 YEARS, On: 23-May-2007 Intent INTRAMUSC ([id number])By: Miguel ABREU, Comments: given 0.5cc im in left deltoid lot#[id number] exp.11/27-WF Iwona Cevallos Instructions Name Dates Details Nonsmoker : How [...] Anxiety : Patient Instructions Indication: Anxiety Encounters Review On: 07-Jul-2018 10:09 Encounter Reason: Cough - No changes in management were made at the last visit. Symptoms include cough, while symptoms do not include wheezing. The cough is described as dry. Cough onset was sudden month(s) ago. There is no known event that preceded symptom onset. The cough occurs constantly. Symptoms are described as moderate in severity and worsening.Encounter Diagnosis: BMI 30.0-30.9,adult, Nonsmoker [facility] Visit On: 27-May-2018 [...] have diarrhea and comiting then back to [facility] Diagnosis: Irritable bowel syndrome (564.1), Constipation, chronic, [...] The patient does have durable power of regulatory attorney and living will. The patient has [...] Thyromegaly, Family history of thyroid cancer End: 14-Toby-2017 10:18 [facility] Visit On: [...] The patient does have durable power of regulatory attorney and living will. The patient has noticed staying at home rather than doing something new or going out and lack of energy (thinks it is from the lupus). Other providers contributing to the patient's care are meat grader (dr. chavez), urologist (dr. 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 beaulieu). 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 The medical issues the patient is following up for include other (rib pain on R side). Note for Follow up acute care visit: went to [place]- drove 500 miles - no leg pain [...] in last year and was normal and se will appt with [facility] for pap - [...] her to see Yuko Cantor - saw [facility] twice doing well there- saw Etienne [...] for Follow up for chronic medical issues: couldnt tolerate topamax- made her constipated- getting tension [...] - still getting 3 migranes a week- youth accommodation support worker feels it is whether change and allergies- [...]
--- OUTSIDE RECORDS SUMMARY | 2018-10-09 01:45 | XMS RPT_ITS | Continuity of Care Document ---
:1950 Author Organization [facility] Address [address] [place] [address] Phone Care Team Providers Name Role Phone Rylee Bales DO Unavailable Jonas KRISHNAN, Fadumo Porter Unavailable Dr. Joaquim Hough Unavailable Deuce Soto Unavailable Herb KRISHNAN, Jj Phillips Unavailable Merari Lam Unavailable [facility] Unavailable Binta Cruz Unavailable Unavailable Makenzie [...] 714.9) Comments: see Dr. deutsch. plaquenil helps [employer]PER[employer] elevated. from Lupus. get eye exam [...] Quantity: 30 {Tablet} Refills: 1 Ordered:31-Jan-2018 Hiro aBles DO, DO, Kathleen Start : 31-Jan-2018 Active [...] DO, DO, Kathleen Start : 15-Apr-2018 Active CeleXA 10 MG Oral Tablet 1 Tablet qd for 0 days Quantity: 30 {Tablet} Refills: 3 Ordered:23-Dec-2017 Hiro Bales DO, DO, Kathleen Start : 23-Dec-2017 Active FiberCon 625 MG Oral Tablet 4 qd (625 MG) Active Flunisolide 25 MCG/ACT (0.025%) Nasal Solution 1 (one) Douglas each nostril qd for 0 days Quantity: 1 {Douglas} Refills: 2 Ordered:12-Feb-2018 MELISSA Carreno Start : [...] Nasonex 50 MCG/ACT Nasal Suspension 1 (one) Douglas qd each nostril for 0 days Quantity: [...] discontinued per [employer]. CALCIUM 500 + D, [id number] (PO Tab) 2 tabs qd for 0 [...] order discontinued per [employer]. VITAMIN D (ERGOCALCIFEROL), [id number] (Oral Capsule) 1 (one) Capsule Capsule once [...] [facility] [address] [place] [address] Fax REHABILITATION SERVICES ISHMAEL TAN SUMMARY MR#: [id number] Acct: [id number] Name: SUSANNE TORRES Rep #: [id number] : 1950 68 From: Mitch Leonard DPT, [...] will also do machines as instructed at [employer]. Still avoid pulling weeds and heavy lifting [...] please feel free to call me at [phone]. Thank you for the referral of this patient. Sincerel y, Mitch Leonard, HARDIK, OC <Electronically signed by Mitch Leonard DPT, CÉSAR, CSCS> 03/20/18 0932 CC: Rylee Bales DO EBG Signed 04-Mar-2018 Re-Evaluation - PT (1) Result: Comments: See Note; NOTES: [facility] [address] [place] [address] Fax REEVALUATION / MEDICARE RECERTI FICATION PHYSICAL THERAPY MR#: [id number] Acct: [id number] Name: SUSANNE TORRES Rep #: [id number] : 1950 68 From: Mitch Leonard DPT, [...] the blue while I was sitting at bahai my shldr just starting hurting worse. Reports the pain to be located in the front and under the shldr joint. Objective/Function: Review of postural maintainence so as to not exacerbate symptoms while sitting at [employer]. Pt states, I guess I wasn't really paying a ttention to how I was sitting. Minimal progression today in reps of current exc, however able to tolerate newly added shldr flexion and ABD exc with wts against gravity. While working on [employer], pt tripped on lower portion of machine [...] do not hesitate to contact me at [phone] by phone or if you have questions [...] [facility] [address] [place] [address] Fax REHABILITATION SERVICES INITIAL EVALUATION MR#: [id number] Acct: [id number] Name: SUSANNE TORRES Rep #: [id number] : 1950 68 From: Mitch Leonard DPT, [...] to be FAXED BACK to us at [phone] for Medicare purposes. Please let me know if there are questions or concerns regarding this plan of care. Physician Signature: Date: <Electronically signed by Micth Leonard DPT, OCS, CSCS> 02/19/18 0722 CC: Rylee Bales DO EBG Signed For Me dicflor only, by signing this I certify the plan of care. Physicians Signature Date 13-Feb-2018 Shoulder min 2 Views Result: Comments: See Note; NOTES: [facility] Imaging Services [address] [place] [address] Shoulder min 2 Views MR#: [id number] Acct: [id number] Name: SUSANNE TORRES Rep #: [id number] : 1950 F 68 From: Hector Oliveira MD PCP: Rylee Bales DO Status: REG CLI Study: Shoulder min 2 Views Date of Exam: 02/13/18 Exam# [id number] Ordering Dr: Rylee Bales DO STUDY: X-R [...] Service support , CC: Rylee Bales DO Tax Commissioner: Signed 04-Feb-2018 Thyroid Result: Comments: See Note; NOTES: [facility] Imaging Services [address] [place] [address] Thyroid MR#: [id number] Acct: [id number] Name: SUSANNE TORRES Rep #: [id number] : 0 1950 F 68 From: Bayron Payan MD PCP: Rylee Bales DO Status: REG CLI Study: Thyroid Date of Exam: 02/04/18 Exam# [id number] Ordering Dr: Rylee Bales DO STUDY: THYROID [...] Bayron Payan MD at 10:35 EDT Tel [phone], Service support , CC: Rylee Bales DO Tax Commissioner: Signed 16-Oct-2017 PT D/C Summary (1) Result: Comments: See Note; NOTES: [facility] [address] [place] [address] Fax REHABILITATION SERVICES DISCHAR GE SUMMARY MR#: [id number] Acct: [id number] Name: SUSANNE TORRES Rep #: [id number] : 1950 67 From: Martín Arteaga DPT [...] please feel free to call me at [phone]. Thank you for the referral of this patient. 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 Medications New: Coding Level of Care Code Off vis,est,level 4 Diagnoses Cellulitis of other specified site L03.818 Site of cell ulitis: other site 10/12/17 1020 <Electronically signed by Lillian FLORES> Date Lillian FLORES Cosdeaner Signatur e: Date (if applicable) CC: 24-Sep-2017 PT Communication Result: Comments: See Note; NOTES: [facility] [address] [place] [address] Fax REHABILITATION SERVICES PROGRES S NOTE MR#: [id number] Acct: [id number] Name: SUSANNE TORRES Rep #: [id number] [...] [facility] [address] [place], [place] [address] Fax REHABILITATION SERVICES INITIAL EVALUATION MR#: [id number] Acct: [id number] Name: SUSANNE TORRES Rep #: [id number] : 1950 67 From: Martín Arteaga DPT Referring Dr.: Rylee Bales DO Status: REG RCR Insurance: MEDICA RE PART A B [employer] Patient's Visit Information SUSANNE TORRES is a 67 year old F referred to Physical Therapy by Rylee Bales DR.KFWANDAO with a diagnosis of . Date of Evaluation: 0 09/18/17 Physical Therapist: Martní Arteaga - Visit Plan Frequency: 2-3x /Week [...] Response: No effect Lumbar Standing: Right Side Rawson - Symptoms During Testing: No e ffect Lumbar Standing: Right Side Rawson - Symptoms After Testing: No effect Lumbar Standing: Left Side Rawson - Mechanical Response: No effect Lumbar Standing: Left Side Rawson - Symptoms During Testing: No effect Lumbar Standing: Left Side Rawson - Symptoms After Testing: No effect - [...] to be FAXED BACK to us at [phone] for Medicare purposes. Please let me know if there are questions or concerns regarding this plan of care. Physician Signature: Date: <Electronically signed by Martín Arteaga DPT> 09/18/17 1910 CC: Rylee Bales DO CLS Signed For Medicare only, by signing this I certify the plan of care. Physicians Signature Date 16-Aug-2017 Hand Min 3 Views Result: Comments: See Note; NOTES: [facility] Imaging Services [address] [place] [address] Hand Min 3 Views MR#: [id number] Acct: [id number] Name: SUSANNE TORRES Rep #: [id number] : 1950 F 67 From: Bayron Payan MD PCP: Rylee Bales DO Status: REG CLI Study: Hand Min 3 Views Date of Exam: 08/16/17 Exam# [id number] Ordering Dr: Rylee Bales DO STUDY: X-RA [...] Bayron Payan MD at 13:43 EST Tel [phone], Service support , CC: Rylee Bales DO Tax Commissioner: Signed 25-Jul-2017 SCREENING MAMM (CAD), BILAT Result: Comments: See Note; NOTES: [facility] Imaging Services [address] [place] [address] SCREENING MAMM (CAD), BILAT MR#: [id number] Acct: [id number] Name: SUSANNE TORRES Rep #: [id number] : 1950 F 67 From: Bayron Payan MD PCP: Rylee Bales DO Status: REG CLI Study: SCREENING MAMM (CAD), BILAT Date of Exam: 07/25/17 Exam# [id number] Ordering Dr: Sherrell Bales DO MAMMOGRAPHY - [...] delay biopsy of a clinically suspicious abnormality. [id number] Electronically Signed: Bayron Payan MD at 14:18 EST Tel [phone], Service support , CC: Rylee Bales DO Tax Commissioner: Signed 03-Jul-2017 Urgent Care Visit Report Result: Comments: See Note; NOTES: [facility] [address] [place] [address] OFFICE VISIT Date of Service: 07/03/17 MR#: [id number] Acct: [id number] Name: SUSANNE TORRES Rep #: [id number] : 1950 Provider: Matt FLORES Age/Sex: 67/F Location: [facility] Status: Signed Intake Vital Signs07/03/17 Height 5 [...] (Cipro) administer within 120 minutes prior to ynav065 mg PO BID 7 days ical incision Additional Comments UA dip = mod blood, mo d leukocytes. Cipro as prescribed today (per pt preference). Appropriate hygiene reinforced. Follow-up with PCP or care coordinator 2-3 days should symptoms not improved, sooner should symptoms worsen or an y other concerns develop. Patient states acknowledging understanding of the above. Coding Level of Care Code Off vis,new,level 3 Diagnoses Urinary tract infection N39.0 07/03/17 1524 <Elect ronically signed by Matt FLORES> Date Matt Melo Signature: Date (if applicable) CC: 03-Jul-2017 Acute Abdomen Inc Chest Result: Comments: See Note; NOTES: [facility] Imaging Services [address] [address] Acute Abdomen Inc Chest MR#: [id number] Acct: [id number] Name: SUSANNE TORRES Rep #: [id number] : 1950 F 67 From: Ross Javier DO PCP: Rylee Bales DO Status: REG CLI Study: Acute Abdomen Inc Chest Date of Exam: 07/03/17 Exam# [id number] Ordering Dr: Rylee Bales DO STUD Y: [...] Ross Javier DO at 11:58 EST Tel [phone], Serv ice support , CC: Rylee Bales DO Tax Commissioner: Signed 02-Jul-2017 Abd Inc Decub and/or Erect Result: Comments: See Note; NOTES: [facility] Imaging Services [address] [place] [address] Abd Inc Decub and/or Erect MR#: [id number] Acct: [id number] Name: SUSANNE TORRES Rep #: [id number] : 1950 F 67 From: Ross Javier DO PCP: Rylee Bales DO Status: REG CLI Study: Abd Inc Decub and/or Erect Date of Exam: 07/02/17 Exam# [id number] Ordering Dr: Rylee Bales DO STUDY: X-RAY [...] Ross Javier DO at 11:35 EST Tel [phone], Service support , Fax CC: Rylee Bales DO Tax Commissioner: Signed 03-Jan-2017 Thyroid Result: Comments: See Note; NOTES: [facility] Imaging Services [address] [place] [address] Verdana 4d Thyroid MR#: [id number] Acct: [id number] Name: SUSANNE TORRES Rep #: [id number] : 1950 F 66 From: Roselia Huerta MD PCP: Rylee Bales DO Status: REG CLI Study: Thyroid Date of Exam: 01/03/17 Exam# [id number] Ordering Dr: Rylee Bales DO STUDY: THYROID [...] Service support , CC: Rylee Bales DO Tax Commissioner: Signed 15-Aug-2016 Venous Duplex Lower Extremity Result: Comments: See Note; NOTES: [facility] Cardiovascular Services [address] [place] [address] Venous Duplex US, Unilateral 08/15/16 1054 MR#: [id number] Acct: [id number] Name: SUSANNE COLMENARES Rep #: [id number] : 1950 66 From: Bradford Crowe MD [...] Dictated: 08/15/16 1054 Date Transcribed: 08/15/16 1228 Tax Commissioner: Signed 24-Jul-2016 SCREENING MAMM (CAD), BILAT Result: Comments: See Note; NOTES: [facility] Imaging Services [address] [place] [address] Verdana 4d SCREENING MAMM (CAD), BILAT MR#: [id number] Acct: [id number] Name: MARYANA TORRES Rep #: [id number] : 1950 F 66 From: Ross Javier DO PCP: Rylee Bales DO Status: REG CLI Study: SCREENING MAMM (CAD), BILAT Date of Exam: 07/24/16 Exam# [id number] Ordering Dr: Rylee Bales DO MAMMOGRAPHY - [...] delay biopsy of a clinically suspicious abnormality. [id number] Electronically Signed: Ross Javier DO at 16:06 EST Tel [phone], Service support [phone], CC: Rylee Bales DO Tax Commissioner: Signed 17-Jul-2016 DXA BONE DENS W/VERT FX ASMT Result: Comments: See Note; NOTES: [facility] Imaging Services [address] [place] [address] Verdana 4d DXA BONE DENS W/VERT FX ASMT MR#: [id number] Acct: [id number] Name: Vincent TORRES DelmiMOUSTAPHA Ivan Rep #: [id number] : 1950 F 66 From: Bayron Payan MD PCP: Rylee Bales DO Status: REG CLI Study: DXA BONE DENS W/VERT FX ASMT Date of Exam: 07/17/16 Exam# [id number] Ordering Dr : Rylee Bales DO STUDY: [...] Bayron Payan MD at 14:09 EST Tel [phone], Service support [phone], CC: Rylee Bales DO Tax Commissioner: Signed 01-Mar-2016 ELECTROCARDIOGRAM, COMPLETE (ECG) ([id number]) Comments: sinus beverly no acute chg Result: [MEASUREMENTS ANALYSIS] Date of Test: 03/01/2016 13:45:12; Heart Rate: 59; MN Interval: 154; QRS: 92; QT Interval: 426; Corrected QT Interval (QTc): 425; P Wave [place]: 33; QRS Wave [place]: 33; T Wave [place]: 90; Blood Pressure: 120/78 [ECG DIAGNOSTIC STATEMENTS] Date of Test: 03/01/2016 13:45:12; Summary: Sinus Bradycardia - Nonspecific T-abnormality. ABNORMAL 01-Nov-2015 Lumbar Spine 2 or 3 Views Result: Comments: See Note; NOTES: [facility] Imaging Services [address] [place] [address] Verdana 4d Lumbar Spine 2 or 3 Views MR#: [id number] Acct: [id number] Name: SUSANNE COLMENARES Rep #: [id number] : 1950 F 65 From: Bayron Payan MD PCP: Manda Higginbotham MD Status: REG CLI Study: Lumbar Spine 2 or 3 Views Date of Exam: 11/01/15 Exam# [id number] Tanya gilmore Dr: Ryan Ortiz MD STUDY: [...] Bayron Payan MD at 10:21 EDT Tel [phone], Service support [phone], RAD/Lumbar Spine 2 or 3 Views IMPRESSION: Degenerative changes of the spine, as detai led above. Electronically Signed: Bayron Payan MD at 10:21 EDT Tel [phone], Service support [phone], CC: Ryan Ortiz MD; Manda Higginbotham MD Tax Commissioner: Signed 13-Oct-2015 Spine Cervical (Routine) Result: Comments: See Note; NOTES: [facility] Imaging Services [address] [place] [address] Verdana 4d Spine Cervical (Routine) MR#: [id number] Acct: [id number] Name: SUSANNE KATE Rep #: [id number] : 1950 F 65 From: Tavo Perez MD PCP: Manda Higginbotham MD Status: REG CLI Study: Spine Cervical (Routine) Date of Exam: 10/13/15 Exam# [id number] Ordering Dr: Ryan Ortiz MD STUDY: MRI [...] at 19:04 EDT Tel , Service support [phone], CC: Ryan Ortiz MD; Manda Higginbotham MD Tax Commissioner: Signed 19-Jul-2015 Bilat Scrn Digital AND CAD Result: Comments: See Note; NOTES: [facility] Imaging Services [address] [place] [address] Verdana 4d Bilat Scrn Digital AND CAD MR#: [id number] Acct: [id number] Name: SUSANNE TORRES Rep #: [id number] : 1950 F 65 From: Hector Oliveira MD PCP: Manda Higginbotham MD Status: REG CLI Study: Bilat Scrn Digital AND CAD Date of Exam: 07/19/15 Exam# [id number] Ordering Dr: Manda Higginbotham MD MAMMOGRAPHY - [...] delay biopsy of a clinically suspicious abnormality. [id number] Electronically Signed: Luis Eduardo Oliveira MD at 15:55 EST Te l , Service support [phone], CC: Manda Higginbotham MD Tax Commissioner: Signed 12-Jul-2015 PT D/C of Non Returning Pt. Result: Comments: See Note; NOTES: [facility] [address] [place] [address]. [address] [place], [place] [address] Fax REHABILITATION SE RVICES DISCHARGE SUMMARY MR#: [id number] Acct: [id number] Name: SUSANNE TORRES Rep #: [id number] : 1950 65 From: Tatiana Wagner Referring [...] and Lateral Result: Comments: See Note; NOTES: [facility] Imaging Services [address] [place] [address] Verdana 4d Chest PA and Lateral MR#: [id number] Acct: [id number] Name: SUSANNE PADILLA Rep #: [id number] : 1950 F 65 From: Bayron Payan MD PCP: Manda Higginbotham MD Status: REG CLI Study: Chest PA and Lateral Date of Exam: 06/13/15 Exam# [id number] Ordering Dr: Marlen Rosenbaum STUDY: X-RAY CHEST [...] Bayron Payan MD at 14:40 EST Tel [phone], Service support [phone], 0079 RAD/Chest PA and Lateral IMPRESSION: No acute abnormality is seen. Electronically Signed: Bayron Payan MD at 14:40 EST Tel [phone], Service support [phone], CC: Marlen Rosenbaum; Manda Higginbotham MD Tax Commissioner: Signed 14-May-2015 Operative Report Result: Comments: See Note; NOTES: [facility] Medical Records Department [address] [place] [address] Operative Report MR#: [id number] Acct: [id number] Name: MARYANA TORRES Rep #: [id number] : 1950 65 From: Deion Gomez MD PCP: Manda Higginbotham MD Status: [facility] DATE OF SERVICE: 05/13/2015 DATE OF [...] get a guidewire past this, then, a 12-Vincentian ureteral balloon dilator and the distal ureter [...] condition. Deion Gomez MD T: NTS JOB: [id number] 05/14/15 1121 <Electronically si gned by Deion Gomez MD> Date Deion Gomez MD Cosigner Signature (If Indicated): Date CC: Manda Higginbotham MD; Deion Gomez MD Date Dictated: 05/13/151357 Date Transcribed: 05/13/151357 Tax Commissioner: Signed 13-May-2015 Discharge Instruction Result: Comments: See Note; NOTES: [facility] Medical Records Department [address] [place] [address] Instructions for Home/Discharge Instructions 05/13/15 1400 MR#: [id number] Acct: [id number] Name: SUSANNE TORRES Rep #: [id number] : 1950 65 From: Deion Gomez MD PCP: Manda Higginbotham MD Status: REG [facility] Discharge Diet: No Restrictions Discharge Activ ity: [...] APPT IN FEW WKS, TO PAGE 05/13/15 8054 <Electronically signed by Deion Gomez MD> Date Deion Gomez MD CC: Manda Higginbotham MD 12-May-2015 Abdomen Single View Result: Comments: See Note; NOTES: [facility] Imaging Services [address] [address] Verdana 4d Abdomen Single View MR#: [id number] Acct: [id number] Name: SUSANNE RAMIREZ Rep #: [id number] : 1950 F 65 From: Jack Calderon MD PCP: Manda Higginbotham MD Status: REG CLI Study: Abdomen Single View Date of Exam: 05/12/15 Exam# [id number] Ordering Dr: Deion Hernandez MD STUDY: X-RAY [...] Jack Calderon MD at 23:58 EDT Tel [phone], Service support [phone], RAD/Abdomen Single View IM PRESSION: 5 mm left renal stone. Electronically Signed: Jack Calderon MD at 23:58 EDT Tel [phone], Service support [phone], CC: Manda Higginbotham MD; Deion Gomez MD Tax Commissioner: Signed 02-May-2015 Abdomen Single View Result: Comments: See Note; NOTES: [facility] Imaging Services [address] [place] [address] Radiology Report MR#: [id number] Acct: [id number] Name: SUSANNE TORRES Re p #: [id number] : 1950 F 65 From: Hector Cervantes MD PCP: Manda Higginbotham MD Status: REG CLI Study: Abdomen Single View Date of Exam: 05/02/15 Exam# [id number] Ordering Dr: Deion Gomez MD STUDY: X-RAY [...] MD at 16:59 EDT , Service support [phone], RAD/Abdomen Sing le View IMPRESSION: 1. 5 [...] MD at 16:59 EDT , Service support [phone], CC: Manda Higginbotham MD; Deion Gomez MD Tax Commissioner: Signed 29-Mar-2015 Extremity Lower without Contra Result: Comments: See Note; NOTES: [facility] Imaging Services [address] [place] [address] CAT Scan Report MR#: [id number] Acct: [id number] Name: SUSANNE TORRES Rep #: [id number] : 1950 F 65 From: Roselia Huerta MD PCP: Manda Higginbotham MD Status: REG CLI Study: Extremity Lower without Contra Date of Exam: 03/29/15 Exam# [id number] Ordering Dr: Chirag Lee DPM STUDY: CT [...] at 13:47 EDT Tel , Service support [phone], CC: Manda guevara MD; Chirag Lee DPM Tax Commissioner: Signed 22-Mar-2015 Inital Evaluation - PT Result: Comments: See Note; NOTES: [facility] [address] [place] [address] Fax REHABILITATION SERVICES INITIAL EVALUATION MR#: [id number] Acct: [id number] Name: SUSANNE TORRES Rep #: [id number] : 1950 65 From: Tatiana Wagner Referring [...] to be FAXED BACK to us at [phone] for Medicare purposes. Please let me know if there are questions or concerns regarding this plan of care. Physician Signature: Date: <Electronically signed by Tatiana Wagner > 03/22/15 1556 CC: Manda Higginbotham MD; Chirag Lee DPM Signed For Medicare only, by signing this I certify the plan of care. Physicians Signature Date 31-Dec-2014 Operative Report Result: Comments: See Note; NOTES: [facility] Medical Records Department [address] [place] [address] Operative Report MR#: [id number] Acct: [id number] Name: SUSANNE TORRES Rep #: [id number] : 1950 64 From: Chirag Lee DPM PCP: Manda Higginbotham MD Status: [facility] DATE OF SERVICE: 12/31/2014 DATE OF [...] LOSS: Less than 1 mL. MATERIALS: One [employer] 5.5 mm partially threaded screw with [...] mm screw was placed across the f [facility] metatarsal fracture site intramedullary. Of noted [...] needed. Chirag Lee DPM T: TITI JOB: [id number] 12/31/14 1603 &# 60;Electronically signed by Chirag Lee DPM> Date Chirag Lee DPM CC: Manda Higginbotham MD; Sunday Lee MD Date Dictated: 06/07/05 915 Date Transcribed: 12/31/14914 Tax Commissioner: Signed 31-Dec-2014 Foot 2 Views Result: Comments: See Note; NOTES: [facility] Imaging Services [address] [place] [address] Radiology Report MR#: [id number] Acct: [id number] Name: SUSANNE TORRES Rep #: [id number] : 1950 F 64 From: Bayron Payan MD PCP: Manda Higginbotham MD Status: [facility] Study: Foot 2 Views Date of Exam: 12/31/14 Exam# [id number] Ordering Dr: Chirag Lee DPM STUD Y: [...] Bayron Payan MD at 13:09 EDT Tel [phone], Service support , RAD/Foot 2 Views IMPRESSION: Satisfactory ORIF of the transverse fracture of the base of the fifth metatarsal. Electronically Signed: Bayron sosa MD at 13:09 EDT Tel [phone], Service support [phone], CC: Manda Higginbotham MD; Sunday Lee MD Tax Commissioner: Signed 31-Dec-2014 Discharge Instruction Result: Comments: See Note; NOTES: [facility] Medical Records Department [address] [place] [address] Instructions for Home/Discharge Instructions 12/31/1432 MR#: [id number] ct: [id number] Name: SUSANNE TORRES Rep #: [id number] : 1950 64 From: Chirag Lee DPM PCP: Manda Higginbotham MD Status: REG [facility] Discharge Diet: Light diet - advance as [...] 2 Views Result: Comments: See Note; NOTES: [facility] Imaging Services [address] [place] [address] Radiology Report MR#: [id number] Acct: [id number] Name: SUSANNE TORRES Rep #: [id number] : 1950 F 64 From: Bayron Payan MD PCP: Manda Higginbotham MD Status: [facility] Study: Foot 2 Views Date of Exam: 12/31/14 Exam# [id number] Ordering Dr: Chirag Lee DPM STUD Y: [...] Morgan Payan MD at 13:02 EDT Tel [phone], Service support [phone], RAD/Foot 2 Views IMPRESSION: Satisfactory reduction of the transvers e fracture at the base of the fifth metatarsal with screw fixation. Electronically Signed: Bayron Payan MD at 13:02 EDT Tel [phone], Service support [phone], Fax CC: Manda Higginbotham MD; Sunday Lee MD Tax Commissioner: Signed 24-Sep-2014 Abdomen Single View Result: Comments: See Note; NOTES: [facility] Imaging Services [address] [place] [address] Radiology Report MR#: [id number] Acct: [id number] Name: SUSANNE TORRES Rep #: [id number] : 1950 F 64 From: Agustin Washington MD PCP: Manda Higginbotham MD Status: REG CLI Study: Abdomen Single View Date of Exam: 09/24/14 Exam# [id number] Ordering Dr: Deion Gomez MD UDY: X-RAY [...] at 17:02 EST Tel , Service support [phone], Fax RAD/Abdomen Single View IMPRESSION: 5 mm left upper pole stone. Other renal stones are not seen but not excluded. Electronically Signed: Agustin Washington MD at 17:02 EST Tel , Service support [phone], CC: Manda Higginbotham MD; Deion Gomez MD Tax Commissioner: Signed 04-Aug-2014 Abdomen/Pelvis without Cont Result: Comments: See Note; NOTES: [facility] Imaging Services [address] [place] [address] CAT Scan Report MR#: [id number] Acct: [id number] Name: SUSANNE TORRES Rep #: [id number] : 1950 F 64 From: Bayron Payan MD PCP: Manda Higginbotham MD Status: REG CLI Study: Abdomen/Pelvis without Cont Date of Exam: 08/04/14 Exam# [id number] Ordering Dr: Deion Gomez MD STUDY: CT [...] Bayron Payan MD at 11:33 EST Tel [phone], Service support [phone], CC: Manda Higginbotham MD; Deion Gomez MD Tax Commissioner: Signed 13-Jul-2014 Vert Fx Asess/Lat Bone Den(H) Result: Comments: See Note; NOTES: [facility] Imaging Services [address] [place] [address] Bone Density Report MR#: [id number] Acct: [id number] Name: SUSANNE TORRES Rep # : [id number] : 1950 F 64 From: Bayron Payan MD PCP: Manda Higginbotham MD Status: REG CLI Study: Vert Fx Asess/Lat Bone Den(H) Date of Exam: 07/13/14 Exam# [id number] Ordering Dr: Iona Higginbotham MD STUDY: DUAL [...] Bayron Payan MD at 13:17 EST Tel [phone], Service support [phone], CC: Manda Higginbotham MD Tax Commissioner: Signed 13-Jul-2014 Vert Fx Asess/Lat Bone Den(H) Result: Comments: See Note; NOTES: [facility] Imaging Services [address] [place] [address] Bone Density Report MR#: [id number] Acct: [id number] Name: SUSANNE TORRES Rep # : [id number] : 1950 F 64 From: Bayron Payan MD PCP: Manda Higginbotham MD Status: REG CLI Study: Vert Fx Asess/Lat Bone Den(H) Date of Exam: 07/13/14 Exam# [id number] Ordering Dr: Iona Higginbotham MD ADDENDUM by Bayron Payan MD on 08/03/14 at 0947 ADDENDUM This is an addendum r eport. A vertebral assessment study was obtained as well. There is moderate degree of loss of height of the T7 vertebrae. Minimal loss of white of the superior plate of the T11 vertebrae. Electron ically Signed: Bayron Payan MD at 9:47 EST Tel [phone], Service support [phone], 08/03/14 09 Date cc: Manda Higginbotham MD [...] Michael Payan MD at 13:17 EST Tel [phone], Service support [phone], CC: Manda Higginbotham MD Tax Commissioner: Signed 13-Jul-2014 Pauline Tsang Digital AND CAD Result: Comments: See Note; NOTES: [facility] Imaging Services [address] [place] [address] Breast Imaging Report MR#: [id number] Acct: [id number] Name: SUSANNE TORRES Rep #: [id number] : 1950 F 64 From: Hector Oliveira MD PCP: Manda Higginbotham MD Status: REG CLI Study: Pauline Tsang Digital AND CAD Date of Exam: 07/13/14 Exam# [id number] Ordering Dr: Manda Higginbotham MD MAMMOGRAPHY - [...] Eduardo Oliveira MD at 15:14 EST Tel [phone], Service support , CC: Manda Higginbotham MD Tax Commissioner: Signed 13-Jul-2014 Dexa Bone Density Study (HP) Result: Comments: See Note; NOTES: [facility] Imaging Services [address] [place] [address] Bone Density Report MR#: [id number] Acct: [id number] Name: SUSANNE TORRES Rep # : [id number] : 1950 F 64 From: Bayron Payan MD PCP: Manda Higginbotham MD Status: REG CLI Study: Dexa Bone Density Study (HP) Date of Exam: 07/13/14 Exam# [id number] Ordering Dr: Ap Higginbotham MD STUDY: DUAL [...] Bayron Payan MD at 13:24 EST Tel [phone], Service support [phone], CC: Manda Higginbotham MD Tax Commissioner: Signed 02-Apr-2014 Pelvis 1 or 2 Views Result: Comments: See Note; NOTES: [facility] Imaging Services [address] [place] [address] Radiology Report MR#: [id number] Acct: [id number] Name: LUBASUSANNE C Rep #: [id number] : 1950 F 64 From: Ross Javier DO PCP: Manda Higginbotham MD Status: REG CLI Study: Pelvis 1 or 2 Views Date of Exam: 04/02/14 Exam# [id number] Ordering Dr: Peri Deutsch MD STUDY: X-RAY [...] Ross Javier DO at 20:24 EDT Tel [phone], Service support [phone], Fax CC: Manda Higginbotham MD; Peri Deutsch MD Tax Commissioner: Signed 09-Jul-2013 Bilat Scrn Digital & CAD Result: Comments: See Note; NOTES: [facility] Imaging Services [address] [place] [address] Breast Imaging Report MR#: [id number] Acct: [id number] Name: SUSANNE TORRES Rep #: [id number] : 1950 F 63 From: Bayron Payan MD PCP: Status: REG CLI Exam# [id number] Ordering Dr: Manda Higginbotham MD MAMMOGRAPHY - [...] Bayron Payan M.D. at 10:52 EST T [phone], Service support [phone], CC: Manda Higginbotham MD Tax Commissioner: Signed Immunization Name Dates Details Influenza (3 years and up) on: 23-May-2007 Comments: given 0.5cc im in left deltoid lot#[id number] exp.11/27- Influenza (3 years and up) on: 11-Jun-2008 Comments: inj given left deltoid no complicationslot:naiov458nuapn:12/28 Influenza (3 years and up) on: 22-Apr-2009 Comments: Lot #: [id number] date: mount given: 0.5 mlRoute: IMSite [...] smoker Vital Signs Date Test Result Details 57-Ccv-432850:36 Temperature 98.4 f Comments: Method: Temporal Pulse [...] kg/m2 Body Surface Area Calculated 1.73 m2 11-Opv-680072:49 Temperature 97.2 f Comments: Method: Temporal Pulse [...] kg/m2 Body Surface Area Calculated 1.74 m2 99-Czg-300004:07 Pulse 68 /min Comments: Pattern: Regular Respiration [...] 0.00 cm Results Date Description Value Details 49-Paw-783750:12 CALCIFIDIOL (67373) VIT D 25 Comments: PATIENT NOT FASTINGPERFORMED BY: [facility] Ogyxwp9047 [facility] [id number] Vitamin D, 25-Hydroxy 41.7 ng/mL (Normal) Range: 30.0-100.0 Comments: Vitamin D deficiency has been defined by the [place] of[place] and an Endocrine Society practice guideline as alevel of serum 25-OH vitamin D less than 20 ng/mL (1,2).The Endocrine Society went on to further define vitamin Dinsufficiency as a level between 21 and 29 ng/mL (2).1. IOM ([place] of [place]). 2010. Dietary reference intakes for calcium and D. [place]: The National Academies Press.2. Micky MF, Jessenia SYKES, Katrin CAMARGO, et al. Evaluation, treatment, and prevention of vitamin D deficiency: an Endocrine Society clinical practice guideline. JCEM. 2010; 96(7):1911-30. 65-Mzd-482345:12 VITAMIN B-12 (CYANOCOBALAMIN) Comments: PATIENT NOT FASTINGPERFORMED BY: CB [facility] Bfewza9188 Walton RoadDublin [place] [id number] ([id number]) Vitamin B12 459 pg/mL (Normal) Range: 232-1245 75-Mni-154357:12 TSH (86298) Comments: PATIENT NOT FASTINGPERFORMED BY: CB [facility] Iivcgs3510 Walton RoadDublin [place] [id number] TSH 2.120 {uIU/mL} (Normal) Range: 0.450-4.500 15-Rsx-359923:12 SED RATE ERYTHROCYTE (09732) Comments: PATIENT NOT FASTINGPERFORMED BY: CB [facility] Zjzhbv1332 Walton RoadDublin [place] [id number] Sedimentation Rate-Westergren 2 mm/h (Normal) Range: 0-40 13-Rcr-057419:12 RHEUMATOID FACTOR-QUANT (37190) Comments: PATIENT NOT FASTINGPERFORMED BY: CB [facility] Uefpdx3139 Walton RoadDublin [place] [id number] RA Latex Turbid. <10.0 {IU/mL} (Normal) Range: 0.0-13.9 77-Caf-817510:12 METABOLIC PANEL, COMPREHENSIVE Comments: PATIENT NOT FASTINGPERFORMED BY: CB [facility] Qggnll9389 Walton RoadDublin [place] [id number] (78427) ALT (SGPT) 19 [iU]/L (Normal) Range: 0-32 [...] 8-27 Glucose 92 mg/dL (Normal) Range: 65-99 05-Thv-962669:12 C-REACTIVE PROTEIN (12524) Comments: PATIENT NOT FASTINGPERFORMED BY: [facility] Ohrnxt8147 [facility] [id number] C-Reactive Protein, Quant 1.2 mg/L (Normal) Range: 0.0-4.9 25-Nxl-241597:12 CBC (AUTO) (30265) Comments: PATIENT NOT FASTINGPERFORMED BY: [facility] HospitalApqicl1868 [address] [facility] [id number] Platelets 212 {x10E3/uL} (Normal) Range: 150-379 RDW 13.9 % (Normal) Range: 12.3-15.4 MCHC 33.7 g/dL (Normal) Range: 31.5-35.7 MCH 30.8 pg (Normal) Range: 26.6-33.0 MCV 91 fL (Normal) Range: 79-97 Hematocrit 40.3 % (Normal) Range: 34.0-46.6 Hemoglobin 13.6 g/dL (Normal) Range: 11.1-15.9 RBC 4.42 {x10E6/uL} (Normal) Range: 3.77-5.28 WBC 4.8 {x10E3/uL} (Normal) Range: 3.4-10.8 16-Scf-673335:12 BIBIANA (ANTINUCLEAR ANTIBODY) Comments: PATIENT NOT FASTINGPERFORMED BY: [facility] Bjlahw3426 [facility] [id number] ([id number]) BIBIANA Direct Negative (Normal) 49-Hap-984861:08 Miscellaneous Lab Procedure Comments: Comments: [id number] TRANGLUTAMINASE SER FZTest(s) Ordered: [id number] TRANGLUTAMINASE SER FZSt[facility] [address]digxyueit[address] [place], [address] [facility] Comments: TEST RESULT LIMITSTransglutaminase Ab IgG/M/ATragl IgG <1.2 U/mL 0.0 - 6.0 Reference Range Negative < 6.0 U/mL Weak Positive LAB (Normal) 6.0 - 9.0 U/mL Positive > 9.0 U/mLTragl IgM 2.0 U/mL 0.0 - 12.4 Reference Range Negative < 9.6 U/mL Equivocal 9.6 - 12.4 TEST U/mL Positive > 12.4 U/mLThe performance characteristics of the TransglutaminaseIgM assay was validated by [facility]. [place] FDA has not approved or cleared this test. Th e resultsof this assay can be used for clinical diagnosis withoutFDA approval. [facility]. is a CLIAcertified, CAP accredited laboratory for performing highcomplexity assays such as this o ne.Tragl IgA < 1.2 U/mL 0.0 - 4.0 Reference Range Negative < 4.0 U/mL Weak Positive 4.0 - 10.0 U/mL Positive > 10.0 U/mLComment_ TESTING PERFORMED AT [facility]. ORIGINAL REPORT ON FILE IN LAB CONTAINS ADDITIONAL TEST SITE INFORMATION. 86-Cek-149576:30 CBC-Complete Blood Cnt No Diff Comments: [facility] [address] [place], [address] MPV 9.8 fL (Normal) Range: [...] 4.2-5.4 WBC 6.0 K/mm3 (Normal) Range: 4.4-11.0 73-Sgm-747054:30 Endomysial Antibody IgA Comments: [facility] (refer to report for specific site)refer to report for address and phone number ENDOMYSIAL IGA Negative (Normal) 19-Teh-210336:30 Thyroglobulin Antibody Comments: [facility] (refer to report for specific site)refer to report for address and phone number TG AB 1.1 {IU/mL} (Abnormal) Range: 0.0-0.9 Comments: Thyroglobulin Antibody measured by MumboeMethodologyPerformed at: CB - [facility] [address] [id number] Director: Joaquim Barrett PhD, Phone: [phone] 87-Hdn-37875:23 CBC-Complete Blood Cnt No Diff Comments: [facility] [address] [place], [address] MPV 9.5 fL (Normal) Range: [...] Magnesium Comments: [facility] [address] [place], [address] MG 2.3 mg/dL (Normal) Range: 1.6-2.6 :23 Microalb:Creat Ratio,Random UR Comments: [facility] [address] [place], [address] MALB:CREAT 5.6 {mg/g_CRE} (Normal) MICROALBUMIN,UR 5.3 mg/L (Normal) UR CREAT 95.70 mg/dL (Normal) :23 PTHIN 78.4 pg/mL (Normal) Comments: [facility] [address] [place], [address] Range: 18.4-80.1 :23 Renal Profile Comments: [facility] [address] [place], [address] CO2 28.0 mmol/L (Normal) Range: 21.0-32.0 CL [...] Please note revised GLUCOSE reference range /02/2018. 63-Fut-13061:23 Vitamin D,25 Hydroxy Comments: [facility] Jsjtbhifua3342 [facility] [address]. [place], [place], [address] Vitamin D 25-OH 34.7 ng/mL (Normal) Range: 29.95-100.01 Comments: Vitamin D 25(OH) Status Range Deficiency <20 ng/mL (50nmol/L) Insuffciency 20 - 30 ng/mL (50 - 75 nmol/L) Sufficiency 30 - 100 ng/mL (75 - 250 nmol/L) Toxicity >100 ng/mL (>250 nmol/L) 71-Jyi-999495:19 CBC W/Diff, Automated Comments: [facility] Ixsibitfih7236 [facility] [place], [address] Absolute Lymph 1.25 {X10_3/ul} (Normal) [...] 4.2-5.4 WBC 3.9 K/mm3 (Abnormal) Range: 4.4-11.0 91-Epk-033680:19 Endomysial Antibody IgA Comments: [facility] (refer to report for specific site)refer to report for address and phone number ENDOMYSIAL IGA Negative (Normal) Comments: Performed at: [address] [id number] Director: Joaquim Barrett PhD, Phone: [phone] 40-Kus-956649:19 t-Transglutaminase IgA Comments: [facility] (refer to report for specific site)refer to report for address and phone number tTG IGA <2 U/mL (Normal) Range: 0-3 Comments: Negative 0 - 3 Weak Positive 4 - 10 Positive >10 Tissue Transglutaminase (tTG) has been identified as the endomysial anti gen. Studies have demonstr- ated that endomysial IgA antibodies have over 99% specificity for gluten sensitive enteropathy. 55-Knb-648815:00 Culture, Urine Comments: [facility] [address]swxi[address] [place], [address] CUUR See Note (Normal) Comments: Urine CultureCulture exhibits no growth. 09-Yhc-12854:27 CBC-Complete Blood Cnt No Diff Comments: [facility] Q[address]qwkwit[address] [place], [place], [address] MPV 10.4 fL (Normal) Range: 6.2-12.0 PLT [...] Magnesium Comments: [facility] [address] [place], [address] MG 2.1 mg/dL (Normal) Range: 1.8-2.4 :27 Microalb:Creat Ratio,Random UR Comments: [facility] [address] [place], [address] MALB:CREAT 4.6 {mg/g_CRE} (Normal) MICROALBUMIN,UR 8.6 mg/L (Normal) UR CREAT 188.00 mg/dL (Normal) :27 Renal Profile Comments: [address] [place], [place], [address] CO2 27.0 mmol/L (Normal) Range: 21.0-32.0 CL [...] 7-18 GLU 94 mg/dL (Normal) Range: 70-110 46-Zar-47091:27 Vitamin D,25 Hydroxy Comments: [facility] [address] [place], [address] Vitamin D 25-OH 57.5 ng/mL (Normal) Comments: Vitamin D 25(OH) Status Range Deficiency <20 ng/mL (50nmol/L) Insuffciency 20 - 30 ng/mL (50 - 75 nmol/L) Sufficiency 30 - 100 ng/mL (75 - 250 nmol/L) Toxicity >100 ng/mL (>250 nmol/L) 0-Ope-410895:15 TSH (92716) Comments: PATIENT NOT FASTINGPERFORMED BY: [facility] [address]wq[address] [employer] [id number] TSH 2.900 {uIU/mL} (Normal) Range: 0.450-4.500 1-Clu-622573:15 SED RATE ERYTHROCYTE (02350) Comments: PATIENT NOT FASTINGPERFORMED BY: [facility] Hxcupa[address] [employer] [place] [id number] Sedimentation Rate-Westergren 2 mm/h (Normal) Range: 0-40 6-Ifn-792769:15 C-REACTIVE PROTEIN (84580) Comments: PATIENT NOT FASTINGPERFORMED BY: [facility] Ryaamr[address] [facility] [place] [id number] C-Reactive Protein, Quant 1.4 mg/L (Normal) Range: 0.0-4.9 4-Iqn-750489:15 METABOLIC PANEL, COMPREHENSIVE Comments: PATIENT NOT FASTINGPERFORMED BY: [facility] Nprqdu4423 [facility] [id number] (80268) ALT (SGPT) 10 [iU]/L (Normal) Range: 0-32 [...] Glucose, Serum 106 mg/dL (Abnormal) Range: 65-99 6-Vig-415791:15 CBC W/AUTO DIFF WBC (36639) Comments: PATIENT NOT FASTINGPERFORMED BY: [facility] Dinryc5728 [facility] [id number] Immature Grans (Abs) 0.0 {x10E3/uL} (Normal) Range: [...] Range: 3.4-10.8 :23 CBC W/Diff, Automated Comments: [facility] [address]te[address] [place], [place], [address] Absolute Lymph 1.81 {X10_3/ul} (Normal) Range: 0.83-4.51 [...] 4.2-5.4 WBC 4.8 K/mm3 (Normal) Range: 4.4-11.0 74-Ubh-75697:23 Comprehensive Metabolic Profil Comments: [facility] Ezkrvrjspk8[address] [place], [place], [address] GAP 5 (Normal) Range: 5-15 CO2 31.0 [...] Cardiac Comments: [facility] [address]bkd[address] [place], [place], [address] CRP HIGH SENS 2.99 mg/L (Normal) Comments: Low Relative Risk of CVD <1.0 mg/L Average Relative Risk of CVD 1.0 - 3.0 mg/L High Relative Risk of CVD >3.0 mg/L :23 Erythrocyte Sed Rate Comments: [facility] [address]jhv[address] [place], [place], [address] SED RATE 2 mm/h (Normal) Range: 0-30 :55 ASPIRATION (SLIDES ONLY) See Note (Normal) Comments: [facility] [address]kljpjq[address] [place], [place], [address] Comments: Patient: SUSANNE TORRES : 1950 (66/F) Acct Num: [id number] Phys: Keanu Tsang MD Unit Num: [id number] Loc: [facility] Specimen: [id number] Received: 01/23/17 - 1601 Spec Type: ASPIRATION TISSUES TISSUES: COMMENT Immediate cytologic evaluation to determine adequacy is not applicable. Correlation with clinical, radiologic findings and appropriate fol low up are necessary. CYTOLOGY GROSS Received are 12 smears labeled with the patient's name and designated per the requisition as left thyroid FNA. Submitted for staining. 01/24/17 TC:5 CPT: 19901 CYTOLOGY STUDY Slides are reviewed. The specimen [...] <signature on file> :39 T3, FREE (TRIDOTHYRONINE) (98463) Comments: PATIENT NOT FASTINGPERFORMED BY: [address] [id number] Triiodothyronine,Free,Serum 2.6 pg/mL (Normal) Range: 2.0-4.4 :39 T4, FREE (THYROXINE) (52504) Comments: PATIENT NOT FASTINGPERFORMED BY: [address] [id number] T4,Free(Direct) 1.49 ng/dL (Normal) Range: 0.82-1.77 :39 TSH (03893) Comments: PATIENT NOT FASTINGPERFORMED BY: [address] [id number] TSH 1.970 {uIU/mL} (Normal) Range: 0.450-4.500 0-Rqy-684119:31 ANTINUCLEAR ANTIBODIES DIRECT Comments: [facility] (refer to report for specific site)refer to report for address and phone number BIBIANA-DIRECT Positive (Abnormal) Comments: Performed at: [address] [id number] Director: Joaquim Barrett PhD, Phone: [phone] :31 CBC W/Diff, Automated Comments: [facility] [address]jhfrag[address] [place], [place], [address] Absolute Lymph 1.15 {X10_3/ul} (Normal) Range: 0.83-4.51 [...] 4.2-5.4 WBC 4.4 K/mm3 (Normal) Range: 4.4-11.0 2-Vbf-012767:31 Magnesium Comments: [facility] [address] [place], [place], [address]) MG 2.1 mg/dL (Normal) Range: 1.8-2.4 9-Gng-217167:31 Protein+Creatinine Ratio,Urine Comments: [facility] [address] [place], [place], [address] PROT:CRE RATIO 88 {mg/g_CRE} (Normal) Range: 0-200 PROTEIN,UR.RAN. 7.2 mg/dL (Normal) UR CREAT 81.80 mg/dL (Normal) 9-Vhs-880537:31 Renal Profile Comments: [facility] [address] [place], [place], [address](470) CO2 25.0 mmol/L (Normal) Range: 21.0-32.0 CL [...] <126 mg/dLsuggests IMPAIRED HOMEOSTASIS per A.D.A. criteria. 3-Grp-456200:31 Vitamin D,25 Hydroxy Comments: [facility] Vxcdkkyjus5698 [facility] [place], [address] Vitamin D 25-OH 48.2 ng/mL (Normal) Comments: Vitamin D 25(OH) Status Range Deficiency <20 ng/mL (50nmol/L) Insuffciency 20 - 30 ng/mL (50 - 75 nmol/L) Sufficiency 30 - 100 ng/mL (75 - 250 nmol/L) Toxicity >100 ng/mL (>250 nmol/L) 11-Idm-71855:45 Culture, Urine Comments: [facility] Zhsybibypw0649 [facility] [place], [address] CUUR See Note (Normal) Comments: Urine CultureBelow infection level. ORGANISM 1: Mixed Gram Positive OrganismsColony Count <1000 23-Hhr-046874:03 CALCIFIDIOL (05406) VIT D 25 Comments: PATIENT NOT FASTINGPERFORMED BY: [facility] [address]Dublin [place] [id number] Vitamin D, 25-Hydroxy 52.3 ng/mL (Normal) Range: 30.0-100.0 Comments: Vitamin D deficiency has been defined by the [place] of[place]icine and an Endocrine Society practice guideline as alevel of serum 25-OH vitamin D less than 20 ng/mL (1,2).The Endocrine Society went on to further define vitamin Dinsufficiency as a level between 21 and 29 ng/mL (2).1. IOM ([place] of [employer]). 2010. Dietary reference intakes for calcium and D. [place]: The National Academies Press.2. Micky MF, Jessenia [place], Katrin CAMARGO, et al. Evaluation, treatment, and prevention of vitamin D deficiency: an Endocrine Society clinical practice guideline. JCEM. 2010; 96(7):1911-30. 67-Rsp-233696:03 Folate (78207) Comments: PATIENT NOT FASTINGPERFORMED BY: [facility] Orhbwp3329 [address] [facility] [place] [id number] Folate (Folic Acid), Serum >20.0 ng/mL (Normal) Comments: A serum folate concentration of less than 3.1 ng/mL isconsidered to represent clinical deficiency. 78-Jhe-368015:03 VITAMIN B-12 (CYANOCOBALAMIN) Comments: PATIENT NOT FASTINGPERFORMED BY: [facility] Idmozz7795 [address] [facility]in [place] [id number] (19020) Vitamin B12 469 pg/mL (Normal) Range: 211-946 19-Ost-616870:03 TSH (44492) Comments: PATIENT NOT FASTINGPERFORMED BY: [facility] Ccpngo7538 [address] [facility] [place] [id number] TSH 2.240 {uIU/mL} (Normal) Range: 0.450-4.500 :03 SED RATE ERYTHROCYTE (08206) Comments: PATIENT NOT FASTINGPERFORMED BY: [facility] Kfsfos0091 [address] [facility] [place] [id number] Sedimentation Rate-Westergren 2 mm/h (Normal) Range: 0-40 57-Shb-938678:03 RHEUMATOID FACTOR-QUANT (66750) Comments: PATIENT NOT FASTINGPERFORMED BY: [facility] HospitalThmwzw3663 [facility] [id number] RA Latex Turbid. 12.1 {IU/mL} (Normal) Range: 0.0-13.9 03-Bub-727557:03 METABOLIC PANEL, COMPREHENSIVE Comments: PATIENT NOT FASTINGPERFORMED BY: [facility] HospitalNjcjat1145 [facility] [id number] (79839) ALT (SGPT) 15 [iU]/L (Normal) Range: 0-32 [...] Glucose, Serum 89 mg/dL (Normal) Range: 65-99 79-Ajo-385158:03 C-REACTIVE PROTEIN (43820) Comments: PATIENT NOT FASTINGPERFORMED BY: [address] [id number] C-Reactive Protein, Quant 0.4 mg/L (Normal) Range: 0.0-4.9 :03 CBC (AUTO) (50537) Comments: PATIENT NOT FASTINGPERFORMED BY: [address] [id number] Platelets 220 {x10E3/uL} (Normal) Range: 150-379 RDW 13.1 % (Normal) Range: 12.3-15.4 MCHC 32.8 g/dL (Normal) Range: 31.5-35.7 MCH 30.1 pg (Normal) Range: 26.6-33.0 MCV 92 fL (Normal) Range: 79-97 Hematocrit 41.1 % (Normal) Range: 34.0-46.6 Hemoglobin 13.5 g/dL (Normal) Range: 11.1-15.9 RBC 4.49 {x10E6/uL} (Normal) Range: 3.77-5.28 WBC 4.7 {x10E3/uL} (Normal) Range: 3.4-10.8 43-Ity-517621:03 BIBIANA (ANTINUCLEAR ANTIBODY) Comments: PATIENT NOT FASTINGPERFORMED BY: [address] [id number] (73379) BIBIANA Direct Positive (Abnormal) :06 ANTINUCLEAR ANTIBODIES DIRECT Comments: CMP,CBCD FOR DR PHELPS,CBCD FOR DR Hannah (refer to report for specific site)refer to report for address and phone number BIBIANA-DIRECT Negative (Normal) Comments: Performed at: [address] [id number] Director: Joaquim Barrett PhD, Phone: [phone] :[phone] CBC W/Diff, Automated Comments: CMP,CBCD FOR DR PHELPS,CBCD FOR DR [facility] [address]omgsqn[address] [place], [place], [address] Absolute Lymph 1.89 {X10_3/ul} (Normal) Range: 0.83-4.51 [...] Range: 82-167 Comments: Performed at: - [facility] [address] [id number] Director: Joaquim Barrett PhD, Phone: [phone] :06 Complement C4 Comments: CMP,CBCD FOR DR PHELPS,CBCD FOR DR Hannah (refer to report for specific site)refer to report for address and phone number COMP C4 14 mg/dL (Normal) Range: 14-44 :06 Comprehensive Metabolic Profil Comments: CMP,CBCD [facility] [id number] [place], [place], [id number] GAP 8 (Normal) Range: 5-15 CO2 30.0 [...] 70-110 :06 Magnesium Comments: CMP,CBCD [facility] [id number] [place], [address] MG 2.1 mg/dL (Normal) Range: 1.8-2.4 :06 Protein+Creatinine Ratio,Urine Comments: CMP,CBCD [facility] [id number] [place], [address] PROT:CRE RATIO 128 {mg/g_CRE} (Normal) Range: 0-200 PROTEIN,UR.RAN. 13.8 mg/dL (Abnormal) UR CREAT 108.00 mg/dL (Normal) :06 Vitamin D,25 Hydroxy Comments: CMP,CBCD [facility] [id number] [place], [address] Vitamin D 25-OH 48.7 ng/mL (Normal) Comments: Vitamin D 25(OH) Status Range Deficiency <20 ng/mL (50nmol/L) Insuffciency 20 - 30 ng/mL (50 - 75 nmol/L) Sufficiency 30 - 100 ng/mL (75 - 250 nmol/L) Toxicity >100 ng/mL (>250 nmol/L) 3-Gvk-272779:07 Fecal Occult Blood , Office (65124) Fecal Occult Blood , Office (Inhouse) negative (Normal) 59-Elm-15613:22 CBC W/Diff, Automated Comments: RE[facility] AND MG [facility] Eseidewdbe9455 [address] MortonJayden [place], [address] Absolute Lymph [...] 4.2-5.4 WBC 4.2 K/mm3 (Abnormal) Range: 4.4-11.0 78-Iki-14930:22 Comprehensive Metabolic Profil Comments: RENAL AND MG ARE FOR [facility] Ddostftzbq4184 [place], [address] GAP 6 (Normal) Range: 5-15 CO2 31.0 [...] RENAL AND MG ARE FOR DR. [facility] Xoabqjlscy1962 [address] Gutierrez [place], [place], [phone](117) VLDL 12 mg/dL (Normal) Range: 5-40 LDL [...] RENAL AND MG ARE FOR DR. [facility] Hpbednzngl3370 [address] Gutier[address] [place], [place], [phone](545) MG 2.1 mg/dL (Normal) Range: 1.8-2.4 :22 Phosphorus Comments: RE[facility] AND MG [facility] Snektmqjwc2590 [place], [address] PHOS 2.6 mg/dL (Normal) Range: 2.5-4.9 :22 Thyroid Stim Hormone (TSH) Comments: RENAL AND MG [facility] Cbzusliwba9685 [place], [address] TSH 2.69 {uIU/mL} (Normal) Range: 0.358-3.74 :22 Vitamin D,25 Hydroxy Comments: RENAL AND MG ARE FOR [facility] Btvtehgxnm1316 [place], [address] Vitamin D 25-OH 51.1 ng/mL (Normal) [...] number BIBIANA-DIRECT Positive (Abnormal) Comments: Performed at: [facility] [id number] Director: Joaquim Barrett PhD, Phone: [phone] :50 CBC W/Diff, Automated Comments: [facility] Istkymduxj4222 [address] [place], [address] Absolute Lymph 1.76 {X10_3/ul} (Normal) [...] mg/dL (Normal) Range: 82-167 Comments: Performed at: [address] [id number] Director: Joaquim Barrett PhD, Phone: [phone] :50 Complement C4 Comments: [facility] (refer to report for specific site)refer to report for address and phone number COMP C4 15 mg/dL (Normal) Range: 14-44 :50 Comprehensive Metabolic Profil Comments: ORDERED CMP CBCD PROCRE UA ORDERED VITD CMP BIBIANA CBCD C3 C4 MG PROCRE LUIS ORDERED [facility] Qvekzvggcl6348 [place], [place], [id number] GAP 5 (Normal) Range: 5-15 CO2 28.0 [...] Urine Comments: [facility] Sbmfsdszzr3687 [address] Gutierrez [place], [place], [id number] CUUR See Note (Normal) Comments: Urine CultureCulture exhibits no growth. :50 Magnesium Comments: ORDERED CMP CBCD PROCRE UACDRZOË ORDERED VITD CMP BIBIANA CBCD C3 C4 MG PROCRE UADR.ENDY [facility] Epmiqylucn8386 [address] [place], [place], [id number] MG 2.1 mg/dL (Normal) Range: 1.8-2.4 :50 Protein+Creatinine Ratio,Urine Comments: [facility] Rkasulgqmy8151 [place], [address] PROT:CRE RATIO 161 {mg/g_CRE} (Normal) Range: 0-200 PROTEIN,UR.RAN. 10.6 mg/dL (Normal) UR CREAT 65.90 mg/dL (Normal) 27-Vei-37435:50 Urinalysis, Routine (Dipstick) Comments: How was Urine Obtained? CLEAN [facility] Glvodjzdfp8311 [place], [address] LEUK ESTERASE 25 /ul (Abnormal) OCCULT BLOOD-UR Negative /ul (Normal) NITRITE UR Negative (Normal) UROBILI Normal mg/dL (Normal) PROT DIPSTX Negative mg/dL (Normal) pH UR 6.0 (Normal) Range: 5.0 - 8.0 SP.GR. DIPSTX 1.020 (Normal) Range: 1.002-1.030 KETONE UR Negative mg/dL (Normal) BILIRUBIN URINE Negative mg/dL (Normal) GLUCOSE, UR Normal mg/dL (Normal) CLARITY Clear (Normal) COLOR Yellow (Normal) 70-Cyi-99096:50 Vitamin D,25 Hydroxy Comments: [facility] Vtkgdcxxtt4711 [place], [address] Vitamin D 25-OH 58.7 ng/mL (Normal) Comments: Vitamin D 25(OH) Status Range Deficiency <20 ng/mL (50nmol/L) Insuffciency 20 - 30 ng/mL (50 - 75 nmol/L) Sufficiency 30 - 100 ng/mL (75 - 250 nmol/L) Toxicity >100 ng/mL (>250 nmol/L) :33 Lipid Profile Comments: [facility] Dlchlrxsws0631 [place], [address] VLDL 18 mg/dL (Normal) Range: [...] Hydroxy Comments: [facility] Zimebdfzfk6468 AN[place], [address] Vitamin D 25-OH 43.3 ng/mL (Normal) Comments: Vitamin D 25(OH) Status Range Deficiency <20 ng/mL (50nmol/L) Insuffciency 20 - 30 ng/mL (50 - 75 nmol/L) Sufficiency 30 - 100 ng/mL (75 - 250 nmol/L) Toxicity >100 ng/mL (>250 nmol/L) 18-Bju-792954:12 EBV Acute Prof IgG / IgM Comments: [facility] (refer to report for specific site)refer to report for address and phone number INTERPRETATION Comment (Normal) Comments: EBV Interpretation ChartInterpretation EBV-IgM EA(D)-IgG VCA-IgG EBNA-IgGEBV Seronegative - - - -Early Phase + - - -Acute Primary + +or- + -InfectionConvalescence/Past - +or- + +InfectionReactivated +or- + + +Infection + Antibody Present - Antibody Ab sentPerformed at: [facility] [id number] Director: Joaquim Barrett PhD, Phone: [phone] EB-NAg [id number] 38.3 U/mL (Abnormal) Range: 0.0-17.9 Comments: Negative <18.0 Equivocal 18.0 - 21.9 Positive >21.9 EB-VCA [id number] 306.0 U/mL (Abnormal) Range: 0.0-17.9 Comments: Negative <18.0 Equivocal 18.0 - 21.9 Positive >21.9 EB-EA IgG [id number] <9.0 U/mL (Normal) Range: 0.0-8.9 Comments: Negative < 9.0 Equivocal 9.0 - 10.9 Positive >10.9 EB-VCA [id number] < 36.0 U/mL (Normal) Range: 0.0-35.9 Comments: Negative <36.0 Equivocal 36.0 - 43.9 Positive >43.9 :15 Immunofixation Urine Comments: PATIENT STATES FLU X'S 2 WAS DONE AT THE OFFICE BY ONE OFTHE NURSES.[facility] (refer to report for specific site)refer to report for address and phone number CILVE Urine Comment (Normal) Comments: No monoclonality detected.Performed at: [facility] [id number] Director: Joaquim Barrett PhD, Phone: [phone] 96-Zed-372201:15 Immunofixation, Serum Comments: PATIENT STATES FLU X'S [...] G 1776 697 mg/dL (Abnormal) Range: 700-1600 65-Lfp-294754:15 [place] [employer] Comments: PATIENT STATES FLU [...] % (Normal) BETA GLOB,U 30.8 % (Normal) VLXNC-2-POOZ,U 16.9 % (Normal) BDLTU-4-XVXW,U 1.8 % (Normal) ALBUMIN,UR 35.1 % (Normal) PROTEIN,UR 13.0 mg/dL (Normal) Range: 0.0-15.0 :15 Protein Electroph, S Comments: PATIENT STATES FLU X'S 2 WAS DONE AT THE OFFICE BY ONE OFTHE NURSES.[facility] (refer to report for specific site)refer to report for address and phone number NOTE Comment (Normal) Comments: Protein electrophoresis scan will follow via computer,mail, or line runner delivery. NOTE: Comment (Normal) Comments: The SPE pattern appears essentially unremarkable. Evidenceof monoclonal protein is not apparent. INTERPRETATION Comment (Normal) Comments: Protein electrophoresis scan will follow via computer,mail, or line runner delivery. A/G RATIO 1.7 (Normal) Range: 0.7-2.0 GLOBULIN, TOTAL 2.3 g/dL (Normal) Range: 2.0-4.5 M-SPIKE (Normal) Comments: Not Observed GAMMA GLOBULIN 0.7 g/dL (Normal) Range: 0.5-1.6 BETA GLOBULIN 0.8 g/dL (Normal) Range: 0.6-1.3 ALPHA-2 GLOBUL 0.6 g/dL (Normal) Range: 0.4-1.2 ALPHA-1 GLOBUL 0.2 g/dL (Normal) Range: 0.1-0.4 ALBUMIN 3.9 g/dL (Normal) Range: 3.2-5.6 PROTEIN,TOTAL 6.2 g/dL (Normal) Range: 6.0-8.5 05-Eoq-277497:22 Rapid Flu (73049 x 2) Influenza A Ag negative (Normal) 35-Xlf-789281:56 Vitamin D,25 Hydroxy Comments: [facility] Ihgxfgcuro[address] [facility] [address] [place], [place], [id number] Vitamin D 25-OH 87.5 ng/mL (Normal) Comments: Vitamin D 25(OH) Status Range Deficiency <20 ng/mL (50nmol/L) Insuffciency 20 - 30 ng/mL (50 - 75 nmol/L) Sufficiency 30 - 100 ng/mL (75 - 250 nmol/L) Toxicity >100 ng/mL (>250 nmol/L) :31 CBC W/Diff, Automated Comments: [facility] Edxlkqc[address] [place], [address] Absolute Lymph 1.68 {X10_3/ul} (Normal) [...] 4.2-5.4 WBC 3.9 K/mm3 (Abnormal) Range: 4.4-11.0 96-Yhz-95124:31 Comprehensive Metabolic Profil Comments: [facility] Drgfddafjo4613 [address] [place], [place], [id number] GAP 3 (Abnormal) Range: 5-15 CO2 32.0 [...] Ratio,Urine Comments: [facility] Cwtgjntukl1058 [facility]. [place], [place], [id number] PROT:CRE RATIO 180 {mg/g_CRE} (Normal) Range: 0-200 PROTEIN,UR.RAN. 39.2 mg/dL (Abnormal) UR CREAT 218.00 mg/dL (Normal) :31 Urinalysis, Complete Comments: How was Urine Obtained? [facility], [facility] Uksqzdaoft2750 [facility]. [place], [place], [id number] AMORPHOUS 1+ (Normal) MUCUS, URINE 0 SEEN [...] CLARITY Sl. Cloudy (Normal) COLOR Yellow (Normal) 00-Enf-282223:20 Basic Metabolic Profile (BMP) Comments: [facility] Ovmcj[address]pexf[address] [facility] [address] [place], [place], [address] GAP 6 (Normal) Range: 5-15 CO2 30.0 [...] 7-18 GLU 89 mg/dL (Normal) Range: 70-110 70-Pao-674438:20 CBC-Complete Blood Cnt No Diff Comments: [facility] [address] [place], [place], [phone] MPV 9.2 fL (Normal) Range: 6.2-12.0 PLT [...] 4.2-5.4 WBC 4.7 K/mm3 (Normal) Range: 4.4-11.0 08-Etc-101499:01 Basic Metabolic Profile (BMP) Comments: Test performed at:[facility] Daaajoptxa64[address] [place] [address] GAP 4 (Abnormal) Range: 5-15 [...] 7-18 GLU 97 mg/dL (Normal) Range: 70-110 33-Fjt-688689:01 Vitamin D,25 Hydroxy Comments: Test performed at:[facility] Dkftokeeef[address] [place] [address] Vitamin D 25-OH 22.7 ng/mL (Normal) Comments: Vitamin D 25(OH) Status Range Deficiency <20 ng/mL (50nmol/L) Insuffciency 20 - 30 ng/mL (50 - 75 nmol/L) Sufficiency 30 - 100 ng/mL (75 - 250 nmol/L) Toxicity >100 ng/mL (>250 nmol/L) :12 CBC W/Diff, Automated Comments: Test performed at:[facility] Byclttqvbi[address] [place] [address] Absolute Lymph 1.39 {X10_3/ul} (Normal) [...] 4.2-5.4 WBC 5.3 K/mm3 (Normal) Range: 4.4-11.0 26-Tmq-27694:12 Comprehensive Metabolic Profil Comments: Test performed at:[facility] Dyhvygbvzg5494 [address] MortonJay[address] [place], [place] [address] GAP 9 (Normal) Range: 5-15 CO2 29.0 [...] Test performed at:[facility] Npphnsooji8584 [place] [address] Absolute Lymph 1.62 {X10_3/ul} (Normal) Range: 0.83-4.51 [...] Test performed at:[facility] Ftnyvtpamq8228 [address] MortonJayden [place], [place] [address] GAP 6 (Normal) Range: 5-15 CO2 31.0 [...] 7-18 GLU 77 mg/dL (Normal) Range: 70-110 1-Pmo-692692:40 FENTANYL Blood Level Comments: Test performed at:[facility] [address] [place], [place] [address] FENTANYL BLD (Normal) Comments: Sent directly to testing facility per ordering physician.02/16/15 1622 KAMLESH :53 CBC W/Diff, Automated Comments: Test performed at:[facility] [address]rxx[address] [place] [address] Absolute Lymph 1.44 {X10_3/ul} (Normal) [...] Test performed at:[facility] Fwhllqhlyz6347 [address] [place] [address] GAP 5 (Normal) Range: 5-15 [...] 7-18 GLU 90 mg/dL (Normal) Range: 70-110 20-Ngj-28297:53 Lipid Profile Comments: Test performed at:[facility] Vwxdrnzxsu6503 [place] [address] VLDL 13 mg/dL (Normal) Range: [...] 200-240 mg/dL Borderline >240 mg/dL High Risk 45-Pos-23473:53 Vitamin D,25 Hydroxy Comments: Test performed at:[facility] Cueadlxwtm7049 [place] [address] Vitamin D 25-OH 27.3 ng/mL (Normal) Comments: Vitamin D 25(OH) Status Range Deficiency <20 ng/mL (50nmol/L) Insuffciency 20 - 30 ng/mL (50 - 75 nmol/L) Sufficiency 30 - 100 ng/mL (75 - 250 nmol/L) Toxicity >100 ng/mL (>250 nmol/L) 6-Wzq-087825:14 Culture, Urine Comments: Test performed at:[facility] Evqcldhlsm67[address] [place] [address] ; ordered by endy JACKSON See Note (Normal) Comments: Urine CultureCulture exhibits no growth. 7-Mat-825101:14 Urinalysis, Routine (Dipstick) Comments: How was Urine Obtained? CLEAN CATCHTest performed at:[facility] Zlarbljjpi17[address] [place] [address] LEUK ESTERASE Negative /ul (Normal) OCCULT BLOOD-UR Negative /ul (Normal) NITRITE UR Negative (Normal) UROBILI Normal mg/dL (Normal) PROT DIPSTX Negative mg/dL (Normal) pH UR 5.0 (Normal) Range: 5.0 - 8.0 SP.GR. DIPSTX 1.030 (Normal) Range: 1.002-1.030 KETONE UR Negative mg/dL (Normal) BILIRUBIN URINE Negative mg/dL (Normal) GLUCOSE, UR Normal mg/dL (Normal) CLARITY Clear (Normal) COLOR Yellow (Normal) 81-Nls-528862:19 FENTANYL Blood Level Comments: Test performed at:[facility] Aucpsecgcv2470 [place] [address] FENTANYL BLD (Normal) Comments: Scanned image report available in EMR 29-Aor-55891:48 CBC W/Diff, Automated Comments: Test performed at:[facility] Inrbykzfei87[address] [place] [address] Absolute Lymph 2.34 {X10_3/ul} (Normal) [...] 4.2-5.4 WBC 4.6 K/mm3 (Normal) Range: 4.4-11.0 57-Juw-46132:48 Comprehensive Metabolic Profil Comments: Test performed at:[facility] Rkbrhlvrkc6610 [address] [place], [place] [address] GAP 4 (Abnormal) Range: 5-15 CO2 31.0 [...] Test performed at:[facility] [address] [place] [address] CMVIgM AB < 30.0 AU/mL (Normal) Range: 0.0-29.9 Comments: Negative <30.0 Equivocal 30.0 - 34.9 Positive >34.9A positive result is generally indicative of acuteinfection, react ivation or persistent IgM production.Performed at: - [address] [id number] Director: Yury Cornelius PhD, Phone: [phone] :39 CMV Antibody IgG Comments: Test performed at:[facility] Tohfzfjbky6207 [facility] [place] [address] CMV AB IgG < 0.60 U/mL (Normal) Range: 0.00-0.59 Comments: Negative <0.60 Equivocal 0.60 - 0.69 Positive >0.69 :39 Comprehensive Metabolic Profil Comments: Test performed at:[facility] [address] [place] [address] GAP 4 (Abnormal) Range: 5-15 [...] 7-18 GLU 88 mg/dL (Normal) Range: 70-110 41-Aco-15271:39 EBV Acute Prof IgG / IgM Comments: Test performed at:[facility] Szpmaagzzl2675 [address] [place], [place] [address] INTERPRETATION Comment (Normal) Comments: EBV Interpretation ChartInterpretation EBV-IgM VCA-IgG EBNA-IgG EA(D)-IgGEBV Seronegative - - - -Early Phase + - - -Acute Primary + + - +or-InfectionConvalescence/Past - + + +or-InfectionReactivated +or- + + +Infection + Antibody Present - Antibody Absent EB-NAg [id number] 36.1 U/mL (Abnormal) Range: 0.0-17.9 Comments: Negative <18.0 Equivocal 18.0 - 21.9 Positive >21.9 EB-VCA MiI43787 289.0 U/mL (Abnormal) Range: 0.0-17.9 Comments: Negative <18.0 Equivocal 18.0 - 21.9 Positive >21.9 EB-EA IgG 98128 <9.0 U/mL (Normal) Range: 0.0-8.9 Comments: Negative < 9.0 Equivocal 9.0 - 10.9 Positive >10.9 EB-VCA [id number] < 36.0 U/mL (Normal) Range: 0.0-35.9 Comments: Negative <36.0 Equivocal 36.0 - 43.9 Positive >43.9 :39 Lipid Profile Comments: Test performed at:[facility] Xdjv[address] [place] [id number] VLDL 11 mg/dL (Normal) Range: 5-40 LDL [...] Test performed at:[facility] V[address] [place] [address] Vitamin D 25-OH 36.8 ng/mL (Normal) Comments: Vitamin D 25(OH) Status Range Deficiency <20 ng/mL (50nmol/L) Insuffciency 20 - 30 ng/mL (50 - 75 nmol/L) Sufficiency 30 - 100 ng/mL (75 - 250 nmol/L) Toxicity >100 ng/mL (>250 nmol/L) 65-Eyo-223246:32 URINE MICHI CULTURE-ZACHARY COL Comments: PATIENT NOT FASTINGPERFORMED BY: [facility] Ghlooh9378 [facility] [id number] Information: SRC:UR [id number] COUNT ([id number]) Result 1 ENTECC (Abnormal) Comments: Enterobacter cloacae [...] report Culture,Comprehensi (Abnormal) ve :50 Urinalysis, Office (19530) UA - LEUKOCYTE ESTERASE Small (Normal) UA - NITRITE Negative (Normal) URINE UROBILINGN ZACHARY 2 mg/dL (Normal) TIMED UA - PROTEIN Negative mg/dL (Normal) UA - PH 6.5 (Normal) UA - BLOOD non-hemolyzed trace (Normal) UA - SPECIFIC GRAVITY 1.010 (Normal) UA - KETONES Negative mg/dL (Normal) UA - BILIRUBIN Negative (Normal) UA - GLUCOSE Negative (Normal) BIBIANA Positive (Abnormal) Comments: Performed at: [facility] [address] [id number] Director: Yury Cornelius PhD, Phone: [phone] : ANEX FRANCOIS-[facility] <0.2 {AI} (Normal) Range: 0.0-0.9 MATERIAL CREW SUPERVISOR-[facility] >8.0 {AI} (Abnormal) Range: 0.0-0.9 ANTIJO-[facility] <0.2 {AI} (Normal) Range: 0.0-0.9 ANTISCL-[facility] <0.2 {AI} (Normal) Range: 0.0-0.9 C3 108 (Normal) Range: 90-180 Comments: Result Units: mg/dL AdultPerformed at: [facility] [address] [id number] Director: Yury Cornelius PhD, Phone: [phone] :[phone] C4 15 (Normal) Range: 9-36 Comments: [...] UCLAR Sl. Cloudy (Normal) UCOL Yellow (Normal) 0-Kfu-046314:53 CUUR URC See Note (Normal) Comments: ORGANISM 1: Mixed Gram Positive OrganismsColony Count 1000-10,000MIX CONTAM Mixed Contaminants. Submit new specimen if indicated. 73-Gka-408570:07 BIBIANA Positive (Abnormal) Comments: Performed at: [address] Director: Yury Cornelius PhD, Phone: [phone] 49-Srv-421576:07 CBCD ALC 1.50 {X10_3/ul} (Normal) Range: 0.83-4.51 [...] HEBSAG ttHEBSAG Negative (Normal) Comments: Performed at: [address] [id number] Director: Yury Cornelius PhD, Phone: [phone] at: [address] [place] [id number] Director: Rogelio Randle PhD, Phone: [phone] at: [address] [id number] Director: Murray Mabry MD, Phone: [phone] :[phone] HECAB tHECAB <0.1 {s/co_ratio} (Normal) Range: 0.0-0.9 Comments: Negative: < 0.8Indeterminate: 0.8 - 0.9Positive: > 0.9In order to reduce the incidence of a false positiveresult, the CDC recommends that all s/co ratiosbetween 1.0 and 10.9 be confirmed b y a more specificsupplemental or PCR testing. [facility] offers HCV Abw/Reflex to Verification test #[id number]. :07 HLAB27 tHLAB27 Negative (Normal) Comments: HLA-B*27 NegativeA [facility] CLIA ID Number [id number] test was performed using PCR (Polymerase ChainReaction)/SSOP (Sequence Specific Oligonucleotide Probes)technique. SBT (Sequence Based Typing) and/ or SSP(Sequence Specific Primers) may be used as supplementalmethods when necessary. Please contact [facility] CustomerService at if you have any questions.Director of HLA LaboratoryDr Rogelio Randle, PhD :07 RF < 10.0 {IU/mL} (Normal) : SED tSEDRATE 13 mm/h (Normal) Range: 0-30 76-Jac-468317:37 BID 0.21 mg/dL (Normal) Comments: Comments: [id number]; CALCIFEDOIL;PLASMA;RF Range: 0.00-0.30 :37 CBCD ALC 1.03 [...] (Abnormal) Range: 4.4-11.0 :37 CMP Comments: Comments: [id number]; CALCIFEDOIL;PLASMA;RF GAP 7 (Normal) Range: 5-15 CO2 [...] 7-18 GLU 93 mg/dL (Normal) Range: 70-110 65-Iee-347180:37 LIPID Comments: Comments: [id number]; CALCIFEDOIL;PLASMA;RF VLDL 24 mg/dL (Normal) Range: 5-40 LDL 71 mg/dL (Normal) Range: 0-130 HDL 40 mg/dL (Normal) Comments: Reference RangeHDL <40 mg/dL Low HDL CholesterolHDL >or= 60 mg/dL High HDL Cholesterol CHOL 135 mg/dL (Normal) Comments: <200 mg/dL Ixtaegatv320-012 mg/dL Borderline>240 mg/dL High Risk TRIG 122 mg/dL (Normal) Range: 0-199 Comments: Serum Triglycerides Reference IntervalNormal <150 mg/dLBorderline high 150 - 199 mg/dLHigh 200 - 499 mg/ dLVery High > or = 500 mg/dL 56-Jvf-694605:37 TSH 1.70 {uIU/mL} (Normal) Comments: Comments: [id number]; CALCIFEDOIL;PLASMA;RF Range: 0.358-3.74 91-Urc-121040:30 VITD 57.3 mg/mL (Normal) Comments: Vitamin D 25(OH) Status RangeDeficiency <20 ng/mL (50nmol/L)Insuffciency 20 - 30 ng/mL (50 - 75 nmol/L)Sufficiency 30 - 100 ng/mL (75 - 250 nmol/L)Toxicity >100 ng/mL (>250 nmol/L) 27-Wqt-78257:27 URINE MICHI CULTURE-ZACHARY COL Comments: PATIENT NOT FASTINGPERFORMED BY: [facility] Hospital[facility]ziiow6312 [facility] [id number] Information: SRC:UR [id number] COUNT ([id number]) Antimicrobial MIHEAD (Normal) Comments: S = Susceptible; [...] primarily for treating urinary tract infections. (CLSI, [id number],2009) Urine Final report (Abnormal) Culture,Comprehensive 86-Ftp-367158:11 Urinalysis, Office (74862) UA - LEUKOCYTE ESTERASE Trace (Normal) UA - NITRITE Negative (Normal) URINE UROBILINGN ZAHCARY TIMED Normal mg/dL (Normal) UA - PROTEIN Negative mg/dL (Normal) UA - PH 6 (Abnormal) UA - BLOOD Hemolyzed Trace (Normal) UA - SPECIFIC GRAVITY 1.025 (Normal) UA - KETONES Small mg/dL (Normal) UA - BILIRUBIN Small (Normal) UA - GLUCOSE Negative (Normal) 97-Gpp-995490:28 MICHI CULTURE-OTHER (00487) Comments: PATIENT NOT FASTINGPERFORMED BY: [facility] HospitalIomtfw3327 [facility] [id number] Information: SRC:THRT [id number] Result 1 RRF (Normal) Comments: Routine respiratory christ Upper Respiratory Culture Final report (Normal) 16-Hid-819578: ARUNA 42 U/L (Normal) Range: 25-115 10 15-Uae-075694:10 CBCD ANC 5.0 {X10_3/uL} (Normal) Range: 2.0-7.7 [...] 4.2-5.4 WBC 6.8 K/mm3 (Normal) Range: 4.4-11.0 02-Dqj-264629:10 CMP GAP 6 (Normal) Range: 5-15 CO2 [...] U/L (Abnormal) Range: 70-290 :17 Urinalysis, Office (80920) UA - LEUKOCYTE ESTERASE Small (Normal) UA [...] (Normal) Range: 16.0-45.0 19 Comments: Performed at: [address] [id number] Director: Yury Cornelius PhD, Phone: [phone] : GOLD 194 ng/mL (Normal) Range: 8-252 19 :31 LIVER BID 0.17 mg/dL (Normal) Range: 0.00-0.30 BIT 0.50 mg/dL (Normal) Range: 0.00-1.00 ALT 134 U/L (Abnormal) Range: 12-78 ALK 111 U/L (Normal) Range: 50-136 AST 107 U/L (Abnormal) Range: 15-37 ALB 3.8 g/dL (Normal) Range: 3.4-5.0 TPROT 6.7 g/dL (Normal) Range: 6.4-8.2 80-Mgd-978646:08 URINE MICHI CULTURE-ZACHARY COL Comments: PATIENT NOT FASTINGPERFORMED BY: [facility] Ytkueb3185 Walton RoadAt[facility] Health [facility] [id number] Information: SRC:UR [id number] COUNT ([id number]) Antimicrobial MIHEAD (Normal) Comments: S = Susceptible; I = Intermediate; R = Resistant P = Positive; N = Negative MICS are expressed in micrograms per mL Antibiotic RSLT#1 RSLT#2 Susceptibility RSLT#3 RSLT#4Amoxicillin/Clavulanic Acid SAmpicillin SCefazolin SCefepime SCeftriaxone SCefuroxime SCephalothin SCiprofloxacin IErtapenem SGentamicin SLevofloxacin SNitrofurantoin R Piperacillin STetracycline RTobramycin STrimethoprim/Sulfa S Result 1 Proteus mirabilis Comments: 1,000 Colonies/mL (Normal) Urine Final report Culture,Comprehensive (Normal) 78-Lrz-99057:55 Urinalysis, Office (91870) UA - BILIRUBIN Negative (Normal) UA - BLOOD Negative (Normal) UA - GLUCOSE Negative (Normal) UA - KETONES Negative mg/dL (Normal) UA - LEUKOCYTE ESTERASE Trace (Normal) UA - NITRITE Negative (Normal) UA - PH 5.0 (Normal) Comments: 5.5 UA - PROTEIN Negative mg/dL (Normal) UA - SPECIFIC GRAVITY 1.025 (Normal) Comments: > 1.030 URINE UROBILINGN ZACHARY TIMED Normal mg/dL (Normal) 43-Jsn-850763:50 CHEST WITHOUT CONTRAST Radiology Report See Note [...] Payan M.D.December 29, 2012 at 4:08:08 PM [id number] ly Signed GP/GP If you are the referring physician and would like to consult with theradiologist who provided this interpretation, please contact Nicolas Boyer at [phone]. If this radiolo gist is unavailable, youwill be directed to another radiologist to assist. If you are a patient with a question regarding this report, pleasecontactyour referring physician directly. Professional Interp retation Provided By: Daojia, Phone , These documents contain legally protected [...] 12/29/12 1611 Sign by: Bayron Payan MD [id number] LIVER Radiology Report See Note (Normal) Comments: PROCEDURE: ABDOMINAL ULTRASOUND - RIGHT UPPER QUADRANT REASON FOR VISIT: Female, 62 years old. Elevated liver functiontests. TECHNIQUE: Ultrasound evaluation of the right upper quadrant [facility] with real-time and static fairchild-scale imaging. [...] size of the right kidney. The right gqzhabkighwlki74.1 cm. Normal renal cortex. The right cortex measure s 0.9 cm. Thereisa 1.5 cm x 1.7 cm by 1.1-cm cyst along the medial portion of the kidney.There is no right hydronephrosis. IMPRESSION:Small right renal cyst. Signed:Bayron Payan M.D.December 16, 2012 at 10:11:37 AM [id number] Signed GP/GP If you are the referring physician and would like to consult with theradiologist who provided this interpretation, please contact Anish brewer M.D. at [phone]. If this radiologist is unavailable, youwill be directed to another radiologist to assist. If you are a patient with a question regarding this report, pleasecontactyour referr ing physician directly. Professional Interpretation Provided By: Daojia, Phone , These documents contain legally protected [...] 12/16/12 1014 Sign by: Bayron Payan MD 68-Ley-924792:17 EBGM EBNA > 8.0 {AI} (Abnormal) Range: 0.0-0.8 Comments: Negative <0.9Equivocal 0.9 - 1.0Positive >1.0 tEBINT Comment (Normal) Comments: EBV Interpretation Chart.Interpretation VCA-IgM EA-IgG VCA-IgG NA-ABS.Susceptible - - - -Acute Infection + +or- +or- -Convalescent Phas e +or- +or- + +Chronic or Reactivated - + + +or-Old Infection - - +or- ++ Antibody Present - Antibody AbsentPerformed at: [address] [id number] Director: Yury Cornelius PhD, Phone: [phone] EBVG > 8.0 {AI} (Abnormal) Range: 0.0-0.8 [...] 3.4-5.0 TPROT 7.3 g/dL (Normal) Range: 6.4-8.2 57-Qjy-766202:17 TSH 1.08 {uIU/mL} (Normal) Range: 0.358-3.74 :46 [...] Signed:Clark D.O.June 27, 2012 at 5:23:04 PM [id number] Signed DL/DL If you are the referring physician and would like to consult with theradiologist who provided this interpretati on, please contact Mone Lazo at [phone]. If this radiologist is unavailable, you will bedirected to another radiologist to assist. If you are a patient with a question regarding this report , pleasecontactyour referring physician directly. Professional Interpretation Provided By: Daojia, Phone , These documents contain legally protected [...] on 06/27/121727 Sign by: Kamilla Epperson DO 5-Tds-518255:41 DEXA BONE DENSITY STUDY (HP) Radiology Report [...] http://www.iscd.org3. National Osteoporosis Foundation http://w ww.nof.org Signed:Bayron Pyaan M.D.June 26, 2012 at 11:52:03 AM [id number] Signed GP/GP If you are the referring physician and would like to consult with theradiologist who provided this interpretation, please contact Nicolas Boyer at [phone]. If this radiologist is unavailable, youwill be directed to another radiologist to assist. If you are a patient with a question regarding this report, pleasecontactyour referring physician directly. Professional Interpretation Provided By: Daojia, Phone , These documents contain lega lly [...] 06/26/12 1232 Sign by: Bayron Payan MD 66-Jbe-191193:08 T4, FREE (THYROXINE) Comments: PATIENT NOT FASTINGPERFORMED BY: [facility] [id number] Information: [id number] (33169) T4,Free(Direct) 1.34 ng/dL (Normal) Range: 0.82-1.77 63-Cvt-862143:08 T3, FREE (TRIDOTHYRONINE) (84139) Comments: PATIENT NOT FASTINGPERFORMED BY: [facility] [id number] Triiodothyronine,Free,Serum 2.7 pg/mL (Normal) Range: 2.0-4.4 33-Vup-861547:08 TSH (81600) Comments: PATIENT NOT FASTINGPERFORMED BY: [facility] [id number] TSH 1.370 {uIU/mL} (Normal) Range: 0.450-4.500 :58 [...] D deficiency has been defined by the [place] of[place] and an Endocrine Society practice guideline as alevel of serum 25-OH vitamin D less than 20 ng/mL (1,2).The Endocrine Society went on to further define vitamin Dinsufficiency as a level between 21 and 29 ng/mL (2).1. IOM ([place] of [place]). 2010. Dietary reference intakes for calcium and D. [place]: The National Academies Press.2. Micky SO, [place], Katrin CAMARGO, et al. Evaluation, treatment, and prevention of vitamin D deficiency: an Endocrine Society clinical practice guideline. JCEM. 2010; 96(7): 1911-30.Performed at: [place] [id number] [place], [place] [id number] Director: Yury Cornelius PhD, Phone: [phone] 22-Dec-20110:00 CHEST WITHOUT CONTRAST Radiology Report See Note (Normal) Comments: PROCEDURE: CT CHEST WITHOUT CONTRAST REASON FOR EXAM: Female, 61 years old. Lung nodule TECHNIQUE: High resolution transaxial imaging was performed without theadministration of intrav enous contra st material. COMPARISON: None. FINDINGS: Right lower lung nodule measuring 6 mm on axial image # 65 is similar topgrandviewr study allowing for differences in technical factors. [...] Signed BP/ BP Professional Interpretation Provided By: [facility] [employer] [facility], , To consult with a radiologist regarding this report, please call our [id number] juanita e @ Dictated on 12/22/11 1022 by Luis Manuel Stahl MDTranscribed on 12/22/11 1059 by ITS IMPORTSign by Luis Manuel Stahl MD on 12/22/11 1100 Sign by: Luis Manuel Stahl MD 81-Ckl-31975:36 CBCMD RBCM NORM C+C {NORMAL} (Normal) PE [...] D deficiency has been defined by the [place] and an Endocrine Society practice guideline as alevel of serum 25-OH vitamin D less than 20 ng/mL (1,2).The Endocrine Society went on to further define vitamin Dinsufficiency as a level between 21 and 29 ng/mL (2).1. IOM ([place]). 2010. Dietary reference intakes for calcium and D. [place]: The National Academies Press.2. Micky MF, [place] NC, Katrin CAMARGO, et al. Evaluation, treatment, and prevention of vitamin D deficiency: an Endocrine Society clinical practice guideline. JCEM. 2010; 96(7): 1911-30.Performed at: - [facility] [id number] Director: Alma Rodríguez MD, Phone: [phone] :[phone] CBCD,SMEAR DIFF RED CELL MORPH SeeNote [...] 7-18 GLU 88 mg/dL (Normal) Range: 70-110 25-Xfe-62116:47 VIT D,25 81949 81.4 ng/mL (Normal) Range: 30.0-100.0 Comments: Vitamin D deficiency has been defined by the [place] and an Endocrine Society practice guideline as alevel of serum 25-OH vitamin D less than 20 ng/mL (1,2).The Endocrine Society went on to further define vitamin Dinsufficiency as a level between 21 and 29 ng/mL (2).1. IOM ([place]). 2011. Dietary reference intakes for calcium and D. [place]: The National AcademExerscrip Press.2. Micky MF, [place], Katrin CAMARGO, et al. Evaluation, treatment, and prevention of vitamin D deficiency: an Endocrine Society clinical practice guideline. JCEM. 2010; 96(7): 1911-30. Please note reference interval changePerformed at: [address] [id number] Director: Alma Rodríguez MD, Phone: [phone] 86-Iqs-248599:11 CHEST WITHOUT CONTRAST Radiology Report See Note [...] >240 mg/dL High Risk :18 VIT D,25 01301 78.0 ng/mL (Normal) Comments: appt 11/14/10 Range: 32.0-100.0 Comments: Recent studies consider the lower limit of 32.0 ng/mL to bradley threshold for optimal health.William VIVAR. J Nutr. 2004;135(2):317-22.Performed at: - [facility] [address] [id number]Lab Director: Alma Rodríguez MD, Phone: [phone] :[phone] COMP METABOLIC GAP 9 (Normal) Range: [...] >240 mg/dL High Risk :19 VIT D,25 42898 55.3 ng/mL (Normal) Range: 32.0-100.0 Comments: Recent studies consider the lower limit of 32.0 ng/mL to bradley threshold for optimal health.William VIVAR. J Nutr. 2005 Aug;135(2):317-22.Performed at: [facility]Jer[facility] [address]Lab Director: Alma Rodríguez MD, Phone: [phone] 73-Gva-70160:00 BILAT SCRN DIGITAL & CAD Radiology Report [...] on 06/14/10 135 Sign by: SLOANE TRIVEDI 62-Twp-18801:57 COMP METABOLIC ALK P 82 U/L (Normal) [...] CHOL 204 mg/dL (Abnormal) Comments: <200 mg/dL Hwayrtepq224-561 mg/dL Borderline>240 mg/dL High Risk HDL 48 mg/dL (Normal) Comments: Reference RangeHDL <40 mg/dL Low HDL CholesterolHDL >or= 60 mg/dL High HDL Cholesterol LDL 136 mg/dL (Abnormal) Range: 0-130 TRIG 102 mg/dL (Normal) Comments: Serum Triglycerides Reference IntervalNormal <150 mg/dLBorderline high 150 - 199 mg/dLHigh 200 - 499 mg/ dLVery High > or = 500 mg/dL :57 VIT D,25 12891 53.8 ng/mL (Normal) Range: 32.0-100.0 Comments: Recent studies consider the lower limit of 32.0 ng/mL to bradley threshold for optimal health.William VIVAR. J Nutr. 2004;135(2):317-22.Performed at: [facility] [id number]Lab Director: Alma Rodríguez MD, Phone: [phone] :[phone] LIPID HDL 49 mg/dL (Normal) Comments: [...] CHOL 190 mg/dL (Normal) Comments: <200 mg/dL Edolivtkf932-410 mg/dL Borderline>240 mg/dL High Risk :13 LIVER ALB 3.6 g/dL (Normal) Range: 3.4-5.0 ALK P 92 U/L (Normal) Range: 50-136 ALT 21 U/L (Normal) Range: 12-78 AST 15 U/L (Normal) Range: 15-37 D BILI 0.13 mg/dL (Normal) Range: 0.00-0.30 T BILI 0.50 mg/dL (Normal) Range: 0.00-1.00 T PROT 6.9 g/dL (Normal) Range: 6.4-8.2 :13 VIT D,25 32084 36.7 ng/mL (Normal) Range: 32.0-100.0 Comments: Recent studies consider the lower limit of 32.0 ng/mL to bradley threshold for optimal health.William VIVAR. J Nutr. 2004;135(2):317-22.Performed at: [address] [id number] Director: Milan Torres MD 8-Zoc-071457:43 ABDOMEN/PELVIS WITH CONTRAST Radiology Report See Note (Normal) Comments: Exam Number: [id number] CLINICAL:Abdominal pain. CT ABDOMEN AND PELVIS WITH [...] significant spondylolisthesis. Reported By: LUZ VALERA M.D. 10-Ryh-23213:14 CBCD,SMEAR DIFF BAND 2 % (Normal) Range: [...] {uIU/mL} (Normal) Range: 0.358-3.74 :14 VIT D,25 28423 38.9 ng/mL (Normal) Range: 32.0-100.0 Comments: Recent studies consider the lower limit of 32.0 ng/mL to bradley threshold for optimal health.William VIVAR. J Nutr. 2004;135(2):317-22.Performed At: [place] [id number] [place], [place] [id number] :10 C-REACTIVE PROT 40.70 mg/L (Abnormal) Range: 0.0-3.0 Comments: C-Reactive Protein (CRP) provides useful information for thediagnosis, therapy and monitoring of inflammatory processesand associated diseases. For the evaluation of Relative Riskfor Cardiovascular Dise ase, a High Sensitivity CRP (HSCRP)should be ordered. :10 ESR SED RATE 50 (Abnormal) Range: 0-20 :03 Urinalysis, Office (63628) UA - BILIRUBIN Negative (Normal) UA - [...] $$$ <=4 S TRIMETHOPRIM/SULFAMETHOXAZO $ >=320 R 61-Keu-59810:41 BILAT SCRN DIGITAL & CAD Radiology Report See Note (Normal) Comments: Exam Number: [id number] MAMMOGRAM, BILATERAL SCREENING DIGITAL AND CAD HISTORYRoutine [...] mammograms werealso examined with computer-aided detection software (ImageLotus Tissue Repair, [employer] Reported By: SLOANE TRIVEDI M.D. 98-Nmc-48565:55 BMP BUN 20 mg/dL (Abnormal) Range: 7-18 [...] 15.9 - 54.0 Contraceptives 0.7 - 5.6 74-Yed-316845:22 PROLACTIN 4465 10.3 ng/mL (Normal) Range: 2.8-29.2 [...] 208.5 Postmenopausal 1.8 - 20.3Per formed At: [address] [id number] 50-Zrj-459521:22 ROUTINE UA BILIRUBIN URINE SeeNote (Normal) Comments: [...] Report See Note (Normal) Comments: Exam Number: [id number] CLINICAL: Headaches, memory loss MRI BRAIN WITH [...] a demonstrated aneurysm or occlusion of the absent[place] of [place]. There is no extra-axial fluid [...] {uIU/mL} (Normal) Range: 0.34-4.82 :08 VIT D,25 19976 38.2 ng/mL (Normal) Range: 32.0-100.0 Comments: Recent studies consider the lower limit of 32.0 ng/mL to bradley threshold for optimal health.William VIVAR. J Nutr. 2004;135(2):317-22.Performed At: [facility] [place], [place] [id number] :08 VITAMIN B12 316 pg/mL (Normal) Range: 211-911 :52 BRAIN/HEAD WITHOUT CONTRAST Radiology Report See Note (Normal) Comments: Exam Number: [id number] CLINICAL:58 year old female with 39 year [...] further evaluation. Reported By: SLOANE VARGAS M.D. 34-Nvx-695646:49 KIDNEY (HP) Radiology Report See Note (Normal) Comments: Exam Number: [id number] CLINICAL:Renal insufficiency RENAL ULTRASOUND COMPARISON:None. FINDINGS: The [...] 3.5-5.1 NA 141 mmol/L (Normal) Range: 136-145 21-Lky-077407:25 CHEST, PA AND LATERAL (MT) Radiology Report See Note (Normal) Comments: Exam Number: [id number] CHEST PA AND LATERAL STATEMENTLeft sided rib [...] Comments: GLU,2HPPG 75gm GLUC PPG GLUP from 0606:[id number]. Comments: Glucose result less than 50 mg/dL [...] 6.7 g/dL (Normal) Range: 6.4-8.2 :42 EBVIgG/M [id number] EB-EA IgG 22303 143 AU/mL (Abnormal) Range: 0-99 Comments: Negative <100 Equivocal 100 - 120 Positive >120 EB-NAg [id number] 1871 AU/mL (Abnormal) Range: 0-99 Comments: Negative <100 Equivocal 100 - 120 Positive >120 EB-VCA [id number] 3769 AU/mL (Abnormal) Range: 0-99 Comments: Negative <100 Equivocal 100 - 120 Positive >120 EB-VCA [id number] 13 AU/mL (Normal) Range: 0-99 Comments: Negative [...] + Antibody Present - Antibody AbsentPerformed At: [facility] [address] [place], [place] [id number] :42 ROUTINE UA BILIRUBIN URINE SeeNote (Normal) [...] Report See Note (Normal) Comments: Exam Number: [id number] MAMMOGRAM, BILATERAL SCREENING DIGITAL AND CAD HISTORYRoutine [...] examined with computer-aided detection softw are (Imagechecker, [employer], Inc.). Reported By: SLOANE TRIVEDI M.D. :34 BIBIANA-D [id number] BIBIANA-DIRECT 51 AU/mL (Normal) Range: 0-99 Comments: [...] {IU/mL} (Normal) Range: 0.0-13.9 Comments: Performed At: [address] [id number] :34 TSH 2.12 {uIU/mL} (Normal) Range: 0.34-4.82 [...] T PROT 6.5 g/dL (Normal) Range: 6.4-8.2 61-Khp-141255:08 CULTURE, URINE URINE CULTURE See Note {CFU/mL} [...] $$$ <=16 S TRIMETHOPRIM/SULFAMETHOXAZ $$ <=10 S 22-Iop-451374:08 ROUTINE UA BILIRUBIN URINE SeeNote (Normal) Comments: [...] 0.2 EU/dl (Normal) Range: 0.2 - 1.0 91-Kbp-859894:45 CULTURE, URINE URINE CULTURE See Note {CFU/mL} [...] $$$ <=16 S TRIMETHOPRIM/SULFAMETHOXAZ $$ <=10 S 83-Rsb-00465:30 LIPID CHOL 181 mg/dL (Normal) Comments: <200 [...] WBC 0 SEEN {/hpf} (Normal) Range: 0-5 8-Dave-54777:55 PFLIP CHOL 170 mg/dL (Normal) Comments: <200 [...] Migraine Planned Observations C-REACT PROT HIGH SENS(hsCRP) (98478)Indication: Pain in unspecified joint On: :28 Request Sedimentation Rate-ESR (46151)Indication: Pain in unspecified joint On: :27 Request Metabolic Panel, Comprehensive (98599)Indication: Pain in unspecified joint On: :27 Request CBC (Auto) (30976)Indication: Pain in unspecified joint On: :27 Request FECAL OCCULT- Tubes sent home (00081)Indication: Encounter for screening for malignant neoplasm of colon (Renamed from Special screening for malignant neoplasms, colon) On: 9-Hqf-648179:14 Request CBC WITH MANUAL DIFF (65990)Indication: Abnormal WBC count On: 24-Iaw-211736:12 Request METABOLIC PANEL, COMPREHENSIVE (10617)Indication: Mixed hyperlipidemia On: 71-Owr-996572:15 Request CBC W/AUTO DIFF WBC (14734)Indication: Mixed hyperlipidemia On: 87-Tsv-104535:15 Request LIPID PANEL (86702)Indication: Mixed hyperlipidemia On: 39-Qvd-262530:15 Request TSH (26277)Indication: Anxiety On: 71-Ows-236822:15 Request CALCIFIDIOL (80123) VIT D 25Indication: Vitamin D deficiency, unspecified On: 76-Szf-475776:15 Request CALCIFEDIOL (31697)Indication: Vitamin D deficiency, unspecified On: 20-Sep-20159:12 Request EBV Panel (69545)Indication: Fatigue On: 46-Snm-666865:51 Request SPEP (31953)Indication: Abnormal CBC On: 17-Pdk-296565:43 Request UPEP (60293)Indication: Abnormal CBC On: 01-Qvh-621780:30 Request serum free light chains (34197)Indication: Abnormal CBC On: :29 Request urine immunofixation (55481)Indication: Abnormal CBC On: :29 Request serum immunofixation (59696)Indication: Abnormal CBC On: :29 Request LIPID PANEL (89548)Indication: Mixed hyperlipidemia On: 98-Ser-786899:46 Request CALCIFIDIOL (12498) VIT D 25Indication: Vitamin D deficiency, unspecified On: 19-Rxa-253676:41 Request METABOLIC PANEL, COMPREHENSIVE (15481)Indication: Mixed hyperlipidemia On: 43-Ovq-240445:12 Request LIPID PANEL (04476)Indication: Mixed hyperlipidemia On: :12 Request CBC WITH MANUAL DIFF (71619)Indication: postmenopausal without estrogen On: :02 Request METABOLIC PANEL, COMPREHENSIVE (37944)Indication: postmenopausal without estrogen On: :02 Request CALCIFIDIOL (75257) VIT D 25Indication: Vitamin D deficiency, unspecified On: :01 Request CALCIFEDIOL (83360)Indication: Vitamin D deficiency, unspecified On: 55-Xil-568175:26 Request CBC WITH MANUAL DIFF (77008)Indication: Mixed hyperlipidemia On: :26 Request Metabolic Panel, Comprehensive (51635)Indication: Mixed hyperlipidemia On: 19-Rea-378679:26 Request Lipid Panel (79751)Indication: Mixed hyperlipidemia On: :26 Request METABOLIC PANEL, COMPREHENSIVE (78506)Indication: Mixed hyperlipidemia On: :47 Request LIPID PANEL (43128)Indication: Mixed hyperlipidemia On: :47 Request CALCIFIDIOL (11853) VIT D 25Indication: Vitamin D deficiency, unspecified On: :47 Request EBV Panel (89083)Indication: Hepatitis On: :38 Request CMV IGM ANTBDY (58423)Indication: Hepatitis On: :38 Request CMV ANTIBODY (75960)Indication: Hepatitis On: 88-Gzy-29564:38 Request CALCIFEDIOL (91631)Indication: Mixed hyperlipidemia On: :56 Request CBC with manual diff (45728)Indication: Mixed hyperlipidemia On: :56 Request Metabolic Panel, Comprehensive (00451)Indication: Mixed hyperlipidemia On: :56 Request TSH (THYROID STIMULATING HORMONE) (80474)Indication: Mixed hyperlipidemia On: 56-Rmf-328748:56 Request LIPID PANEL (33252)Indication: Mixed hyperlipidemia On: :55 Request HEPATIC FUNCTION PANEL (24396)Indication: Mixed hyperlipidemia On: :55 Request HEPATIC FUNCTION PANEL (47999)Indication: Unspecified Diagnosis On: 95-Zcz-076838:25 Request Rapid Strep Test, Office (75649)Indication: Pharyngitis, acute On: 43-Zmy-364366:05 Request Metabolic Panel, Comprehensive (41502)Indication: Epigastric Pain (Renamed from Abdominal pain, epigastric) On: 82-Ajl-445957:24 Request Comments: labs stat. Lipase (26026)Indication: Epigastric Pain (Renamed from Abdominal pain, epigastric) On: :24 Request Amylase (38001)Indication: Epigastric Pain (Renamed from Abdominal pain, epigastric) On: :24 Request CBC, Platelets & Auto Diff (51863)Indication: Epigastric Pain (Renamed from Abdominal pain, epigastric) On: 50-Ieo-831808:24 Request URINE MICHI CULTURE-IDENTIFICATN (48426)Indication: Hematuria (Renamed from Blood in the urine) On: 13-Oys-419186:23 Request ASM (ANTI SMOOTH MUSCLE ANTIBODY) (01849)Indication: Abnormal finding of blood chemistry, unspecified On: 33-Xgw-189675:26 Request CERULOPLASMIN (68579)Indication: Abnormal finding of blood chemistry, unspecified On: 70-Xun-564965:26 Request FERRITIN (85270)Indication: Abnormal finding of blood chemistry, unspecified On: 35-Mdr-705797:26 Request HEPATIC FUNCTION PANEL (18330)Indication: Mixed hyperlipidemia On: 06-Gqe-230865:47 Request HEPATIC FUNCTION PANEL (63580)Indication: Abnormal finding of blood chemistry, unspecified On: 25-Vok-524754:17 Request Comments: 1 week HEPATIC FUNCTION PANEL (49624)Indication: Migraine On: :26 Request TSH (68809)Indication: Migraine On: 63-Oqr-413403:26 Request HEPATITIS PANEL (68097)Indication: Abnormal finding of blood chemistry, unspecified On: :25 Request EBV Panel (58029)Indication: Abnormal finding of blood chemistry, unspecified On: 08-Bfk-049952:24 Request Vitamin D Hydroxy (50923)Indication: Vitamin D deficiency, unspecified On: :42 Request CBC WITH MANUAL DIFF (15387)Indication: Irritable bowel syndrome On: :42 Request METABOLIC PANEL, COMPREHENSIVE (68302)Indication: Irritable bowel syndrome On: :42 Request LIPID PANEL (55972)Indication: Mixed hyperlipidemia On: :42 Request CALCIFEDIOL (10906)Indication: Vitamin D deficiency, unspecified On: :06 Request CBC with manual diff (13224)Indication: Mixed hyperlipidemia On: : Request Lipid Panel (81699)Indication: Mixed hyperlipidemia On: : Request Metabolic Panel, Comprehensive (84938)Indication: Mixed hyperlipidemia On: :06 Request Vitamin D Hydroxy (95614)Indication: Vitamin D deficiency, unspecified On: :17 Request CBC WITH MANUAL DIFF (04318)Indication: Lung nodule On: :17 Request METABOLIC PANEL, COMPREHENSIVE (06173)Indication: Irritable bowel syndrome On: :17 Request LIPID PANEL (37695)Indication: Mixed hyperlipidemia On: 48-Lzv-312677:07 Request C-REACTIVE PROTEIN (99215)Indication: Chest pain On: :20 Request SED RATE ERYTHROCYTE (80675)Indication: Chest pain On: :20 Request METABOLIC PANEL, COMPREHENSIVE (81361)Indication: Chest pain On: :20 Request CBC WITH MANUAL DIFF (33775)Indication: Chest pain On: :20 Request D-Dimer (13693)Indication: Chest pain On: :20 Request Comments: stat METABOLIC PANEL, COMPREHENSIVE (42315)Indication: Osteopenia On: 90-Dpq-733803:00 Request TSH (81458)Indication: Depressive disorder On: 61-Tny-775004:58 Request LIPID PANEL (26262)Indication: Mixed hyperlipidemia On: 85-Btn-296442:57 Request Vitamin D Hydroxy (79786)Indication: Vitamin D deficiency, unspecified On: 38-Wju-311254:57 Request Metabolic Panel, Comprehensive (06137)Indication: Hypopotassemia On: 08-Bnb-731335:58 Request CALCIFEDIOL (03176)Indication: Vitamin D deficiency, unspecified On: 35-Vng-714072:58 Request Lipid Panel (89459)Indication: Mixed hyperlipidemia On: 54-Ixf-646442:57 Request METABOLIC PANEL, COMPREHENSIVE (09436)Indication: Migraine On: :53 Request LIPID PANEL (06148)Indication: Mixed hyperlipidemia On: 60-Iif-821051:53 Request Vitamin D Hydroxy (34250)Indication: Vitamin D deficiency, unspecified On: 91-Rff-502412:53 Request Vitamin D Hydroxy (23334)Indication: Vitamin D deficiency, unspecified On: 96-Lgd-877736:49 Request METABOLIC PANEL, COMPREHENSIVE (43919)Indication: Irritable bowel syndrome On: 62-Cvc-273784:48 Request LIPID PANEL (43732)Indication: Mixed hyperlipidemia On: 59-Oir-936239:48 Request METABOLIC PANEL, COMPREHENSIVE (40130)Indication: Hypopotassemia On: 80-Lat-927072:56 Request LIPID PANEL (08528)Indication: Mixed hyperlipidemia On: 17-Pti-910257:56 Request Vitamin D Hydroxy (62632)Indication: Vitamin D deficiency, unspecified On: 17-Avf-130264:56 Request HEPATIC FUNCTION PANEL (37712)Indication: Mixed hyperlipidemia On: 99-Mvw-883361:07 Request LIPID PANEL (59526)Indication: Mixed hyperlipidemia On: 11-Jaf-208870:07 Request URINE MICHI CULTURE-IDENTIFICATN (02700)Indication: Dysuria On: 8-Ang-697891:40 Request URINALYSIS W/O MICRO (46401)Indication: Other signs and symptoms in breast On: 20-Fia-119290:31 Request METABOLIC PANEL, COMPREHENSIVE (96071)Indication: Other signs and symptoms in breast On: 53-Dha-722917:31 Request TSH (76034)Indication: Other signs and symptoms in breast On: 45-Fdh-334092:31 Request Vitamin D Hydroxy (54243) On: :30 Request CBC WITH MANUAL DIFF (62976) On: :30 Request METABOLIC PANEL, COMPREHENSIVE (34102) On: 1-Yqm-917612:30 Request VITAMIN B-12 (CYANOCOBALAMIN) (34391) On: 4-Hhk-959204:30 Request TSH (77326) On: :30 Request Metabolic Panel, Basic (36826) On: 03-Yxb-424360:21 Request HEPATIC FUNCTION PANEL (97485)Indication: Mixed hyperlipidemia On: 12-Jsy-355299:21 Request LIPID PANEL (11499)Indication: Mixed hyperlipidemia On: 12-Qds-349136:21 Request METABOLIC PANEL, COMPREHENSIVE (90497)Indication: Hypoglycemia On: 40-Rcn-670970:51 Request LIPID PANEL (23473)Indication: Low HDL (under 40) On: 01-Jvr-861233:45 Request Glucose, PP/2 Hour (25971)Indication: Fatigue On: 1-Two-583530:03 Request VITAMIN B-12 (CYANOCOBALAMIN) (25128)Indication: Fatigue On: 5-Yaa-404726:03 Request URINALYSIS W/O MICRO (27172)Indication: Fatigue On: 6-Tqn-607254:03 Request TSH (76033)Indication: Fatigue On: 4-Rbz-830012:03 Request CBC WITH MANUAL DIFF (79127)Indication: Fatigue On: 8-Adg-398488:03 Request METABOLIC PANEL, COMPREHENSIVE (20612)Indication: Fatigue On: 4-Ayr-916498:03 Request BIBIANA (ANTINUCLEAR ANTIBODY) (79854)Indication: Pain in unspecified joint On: 4-Mun-128510:28 Request C-REACTIVE PROTEIN (90794)Indication: Pain in unspecified joint On: 7-Jut-333178:28 Request CBC WITH MANUAL DIFF (69795)Indication: Pain in unspecified joint On: 2-Rhq-658181:28 Request METABOLIC PANEL, COMPREHENSIVE (33418)Indication: Pain in unspecified joint On: 4-Oyh-080042:28 Request RHEUMATOID FACTOR-QUANT (31131)Indication: Pain in unspecified joint On: 2-Rcv-870334:28 Request SED RATE ERYTHROCYTE (87401)Indication: Pain in unspecified joint On: 1-Ehe-476751:28 Request TSH (29908)Indication: Pain in unspecified joint On: 6-Bjp-428485:28 Request METABOLIC PANEL, COMPREHENSIVE (12145)Indication: Low HDL (under 40) On: :26 Request LIPID PANEL (92146)Indication: Low HDL (under 40) On: : Request LIPID PANEL (85093)Indication: Low HDL (under 40) On: :41 Request HEPATIC FUNCTION PANEL (94021)Indication: Low HDL (under 40) On: : Request Comments: 4 mos LIPID PANEL ([id number])Indication: Low HDL (under 40) On: : Request Comments: 3 mos HEPATIC FUNCTION PANEL ([id number])Indication: Low HDL (under 40) On: : Request Comments: 3 mos Planned Procedures Flu Vaccine (Quadrivalent) On: 27-May-2018 Intent 24124Sm: Rylee Bales DO Comments: Lot #[id number]-L dltd, IMDose prefilled syringegiven by: Nohemy reviewed and ABN signed Rylee Baels DO Wax CurettesBy: Nii ABREU, On: 12-Feb-2018 Intent Rylee Nelson DO Ear Irrigation ([id number])By: On: 12-Feb-2018 Intent Rylee Bales DO, DO, Comments: small amount of yellow was irrigated out of right ear, patient tolerated without difficulty ear wax currette used to remove remainder of wax Rylee X-RAY OF SHOULDER, TWO VIEWS On: 12-Feb-2018 Intent ([id number])By: Rylee Bales DO, DO, Kathleen ELECTROCARDIOGRAM, COMPLETE On: 12-Feb-2018 Intent (ECG) ([id number])By: Rylee Bales DO, DO, Kathleen Ultrasound - ThyroidBy: Nii On: 30-Jan-2018 Intent Rylee ABREU DO, Kathleen Wax CurettesBy: Dasia Oliver On: 12-Sep-2017 Intent Ear Irrigation ([id number])By: On: 12-Sep-2017 Intent Dasia Oliver X-RAY OF HAND, THREE VIEWS On: 16-Aug-2017 Intent ([id number])By: Nii DO, Rylee Nii DO, Rylee Radiology - Abdomen SeriesBy: On: 02-Jul-2017 Intent Nii DO, Rylee Nii DO, Comments: FLAT PLATE Rylee ACUTE ABDOMINAL SERIES On: 27-Jun-2017 Intent ([id number])By: Nii DO, Rylee Nii DO, Rylee Flu Vaccine (Quadrivalent) On: 28-May-2017 Intent 59525Yd: Nii DO, Rylee Comments: lot: [id number]: 01/06/18ite/route: L freddy, IMamt: 0.5mlVIS and ABN signed when applicableChelsea, ASSISTIVE TECHNOLOGY SPECIALIST Nii DO, Rylee SCREENING DIGITAL On: 28-May-2017 Intent TOMOSYNTHESIS OF BREAST ([id number])By: Rylee Bales DO Nii DO, Rylee THYROID ULTRASOUND ([id number])By: On: 02-Jan-2017 Intent Nii DO, Rylee Nii DO, Rylee Doppler Ultrasound OtherBy: On: 15-Aug-2016 Intent Nii DO, Rylee Nii DO, Comments: left lower extremity Rylee PNEUM VAC ADLT/IMUMNOSPR, On: 07-May-2016 Intent SBC/INTRM (37980)By: Nii Comments: Lot:[id number]:11/24/17Dose:0.5mgRoute:imSite:r arm Given By:DORIS signed DO, Rylee Nii DO, Rylee DEXA SCAN AXIAL SKELETON On: 25-Apr-2016 Intent ([id number])By: Nii DO, Rylee Nii DO, Rylee MAMMOGRAM, SCREENING, BOTH On: 25-Apr-2016 Intent BREAST ([id number])By: Nii DO, Rylee Nii DO, Rylee Flu Vaccine (Quadrivalent) On: 25-Apr-2016 Intent 62686Zd: Hung Santos Comments: FLUlot: [id number]:01/05site:Lt deltoidroute:IMdose:.5mlDEMICK, MA DEXA SCAN AXIAL SKELETON On: 01-Mar-2016 Intent ([id number])By: Nii DO, Rylee Nii DO, Rylee Radiology - ChestBy: Ciesa On: 13-Jun-2015 Intent RELASTER, Isabel Flu Vaccine (Quadrivalent) On: 27-Apr-2015 Intent 98349Ct: Manda Higginbotham MD Comments: Lot:[id number]:01/19/16Dose:0.5mLRoute:IMSite:L DltdGiven By:DORIS chi MAMMOGRAM, SCREENING, BOTH On: 15-Mar-2015 Intent BREAST ([id number])By: Manda Higginbotham MD ELECTROCARDIOGRAM, COMPLETE On: 30-Dec-2014 Intent (ECG) (11463)By: Nii ABREU, Comments: nsr no acute chg Rylee Bales DO Rylee Prevnar 13 (27076)By: Anahy On: 03-Aug-2014 Intent Manda KRISHNAN SPECIMEN HANDLING/TRANSPORT On: 14-Jun-2014 Intent ([id number])By: Marlen Rosenbaum CNP IMMUNIZ ADMNIN, 1 VAC, On: 03-May-2014 Intent SNGL/COMBO (87467)By: Joey, Nurse FLU VAC, SPLIT, >3 YEARS, On: 03-May-2014 Intent INTRAMUSC (63849)By: Anahy Comments: Lot:[id number]:01/18/15Dose:0.5mLRoute:IMSite:L DltdGiven By:Manda Crum MD MAMMOGRAM, SCREENING, BOTH On: 09-Feb-2014 Intent BREAST ([id number])By: Anahy KRISHNAN, Comments: due 07-04 Manda Torres DEXA SCAN AXIAL SKELETON On: 09-Feb-2014 Intent ([id number])By: Manda Higginbotham MD Comments: due 07-04 Eprescribed prescriptions On: 19-Nov-2013 Intent (G8553)By: Rylee Bales DO, DO, Kathleen Eprescribed prescriptions On: 02-Sep-2013 Intent (G8553)By: Marlen Rosenbaum CNP FLU VAC, SPLIT, >3 YEARS, On: 26-May-2013 Intent INTRAMUSC ([id number])By: Anahy Comments: Lot:[id number]:Dose:0.5mLRoute:IMSite:L DltdGiven By:Manda Crum MD IMMUNIZ ADMNIN, 1 VAC, On: 26-May-2013 Intent SNGL/COMBO (31393)By: Francesca Crystal MAMMOGRAM, SCREENING, BOTH On: 14-May-2013 Intent BREASTS (25354)By: Anahy KRISHNAN, Madna Torres Eprescribed prescriptions On: 30-Dec-2012 Intent (G8553)By: Alaina Patricia LPN L Ultrasound - LiverBy: Fast DO, On: 10-Dec-[address] - ChestBy: Fast DO, Iwona A On: 09-Dec-2012 Intent Comments: december Eprescribed prescriptions On: 09-Dec-2012 Intent (G8553)By: Zabrina Farmer Eprescribed prescriptions On: 01-Aug-2012 Intent (G8553)By: Zabrina Farmer EKG ([id number])By: Darian, On: 10-Jun-2012 Intent Zabrina Comments: ekg showed normal sinus rhythym, normal axis, no acute st/t wave changes Eprescribed prescriptions On: 10-Jun-2012 Intent (G8553)By: Fast DO, Iwona A DXA, BONE DENSITY, AXIAL On: 10-Jun-2012 Intent SKELETON ([id number])By: Fast DO, Iwona A CT - ChestBy: Fast DO, Iwona A On: 10-Jun-2012 Intent Eprescribed prescriptions On: 10-Jun-2012 Intent (G8553)By: Zabrina Farmer Breast Screening - On: 02-Jun-2012 Intent BilateralBy: Fast DO, Iwona A TDAP VACCINE >7 IM ([id number])By: On: 04-Dec-2011 Intent Zabrina Farmer Comments: lot [id number] 06/02, L arm IM, perfileld Alaina CT - ChestBy: Fast DO, Iwona A On: 04-Dec-2011 Intent FLU VAC, SPLIT, >3 YEARS, On: 29-May-2011 Intent INTRAMUSC (64829)By: Darian, Comments: Lot: [id number]: 01/19/12Site: Lt DeltoidDose: Prefilled DoseARiding, ISHMAEL Gerber CT - ChestBy: Fast DO, Iwona A On: 29-May-2011 Intent IMMUNIZ ADMNIN, 1 VAC, On: 29-May-2011 Intent SNGL/COMBO (55031)By: Zabrina Farmer Pulse Oximetry (14522)By: Miguel On: 16-Feb-2011 Intent Iwona ABREU Comments: 99 CT - ChestBy: Iwona Rivera DO On: 16-Feb-2011 Intent Comments: stat-pe protocol- call wet read Radiology - ChestBy: Ilsa On: 06-Feb-2011 Intent Marlen SELLERS Fdlokglhc-Dsm-Jiqxo ([id number])By: On: 06-Feb-2011 Intent Ciesa Marlen SELLERS Eprescribed prescriptions On: 03-Jan-2011 Intent (G8553)By: Iwona Rivera DO EKG (30460)By: Anahy KRISHNAN, On: 15-Dec-2010 Intent Manda Melissa Eprescribed prescriptions On: 17-Nov-2010 Intent (G8553)By: Iwona Rivera DO MAMMOGRAM, SCREENING, BOTH On: 06-Mar-2010 Intent BREASTS (98742)By: Iwona Rivera DO DXA, BONE DENSITY, AXIAL On: 06-Mar-2010 Intent SKELETON (32466)By: Iwona Rivera DO CT - Abdomen & PelvisBy: Miguel On: 22-Aug-2009 Intent Iwona ABREU PNEUM VAC ADLT/IMUMNOSPR, On: 22-Apr-2009 Intent SBC/INTRM (60691)By: Samantha Kumar RN IMMUNIZ ADMNIN, 1 VAC, On: 22-Apr-2009 Intent SNGL/COMBO (22290)By: Stacy STINSON, Comments: Lot #: [id number] date: mount given: 0.5 mlRoute: IMSite given: right deltoidGiven by: ISHMAEL Galindo IMMUNIZ ADMNIN, 1 VAC, On: 22-Apr-2009 Intent SNGL/COMBO (79283)By: Samantha Kumar RN FLU VAC, SPLIT, >3 YEARS, On: 22-Apr-2009 Intent INTRAMUSC (44561)By: Stacy STINSON, Comments: Lot #: [id number] date: mount given: 0.5 mlRoute: IMSite given: left deltoidGiven by: ISHMAEL Galindo Pulse Oximetry (31819)By: On: 15-Apr-[address] - Brain/HeadBy: Miguel ABREU, On: 19-Nov-2008 Intent Iwona Cevallos Radiology - ChestBy: Ilsa On: 14-Oct-2008 Intent Marlen SELLERS Pulse Oximetry (74890)By: On: 14-Oct-2008 Intent Ilsa SELLERS Marlen Phillips Comments: done BC Aerosol Treatment (47682)By: On: 14-Oct-2008 Intent Isla SELLERS Marlen Phillips Comments: done BC Spirometry (79124)By: On: 12-Oct-2008 Intent Zabrina Farmer Comments: good effort and curve normal MAMMOGRAM, SCREENING, BOTH On: 06-Oct-2008 Intent BREASTS (59575)By: Iwona Rivera DO Aerosol Treatment (21345)By: On: 08-Sep-2008 Intent Ilsa SELLERS Marlen Phillips Pulse Oximetry (58969)By: On: 08-Sep-2008 Intent Ilsa SELLERSMarlen EKG (89822)By: Nii ABREU, On: 02-Jul-2008 Intent Rylee Nelson DO Comments: nsr nothing acute-- v1-v1 lead placement(female) FLU VAC, SPLIT, >3 YEARS, On: 11-Jun-2008 Intent INTRAMUSC (77851)By: Darian, Comments: inj given left deltoid no complicationslot:[id number]:12/28 Zabrina IMMUNIZ ADMNIN, 1 VAC, On: 11-Jun-2008 Intent SNGL/COMBO (40961)By: Zabrina Farmer EKG (99112)By: Iwona Rivera DO On: 22-Dec-2007 Intent A Comments: ekg showed normal sinus rhythym, normal axis, no acute st/t wave changes MAMMOGRAM, SCREENING, BOTH On: 25-Aug-2007 Intent BREASTS (67759)By: Iwona Rivera DO IMMUNIZ ADMNIN, 1 VAC, On: 23-May-2007 Intent SNGL/COMBO (94673)By: Iwona Rivera DO FLU VAC, SPLIT, >3 YEARS, On: 23-May-2007 Intent INTRAMUSC (57601)By: Miguel ABREU, Comments: given 0.5cc im in left deltoid lot#[id number] exp.11/27-WF Iwona A Instructions Name Dates Details [...] The patient does have durable power of mergers and acquisitions attorney and living will. The patient has [...] The patient does have durable power of mergers and acquisitions attorney and living will. The patient has noticed staying at home rather than doing something new or going out and lack of energy (thinks it is from the lupus). Other providers contributing to the patient's care are apartment locator (dr. chavez), urologist (dr. bhatti) and ot her: (guidance director dr. beaulieu). 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 The medical issues the patient is following up for include other (rib pain on R side). Note for Follow up acute care visit: went to [place]- drove 500 miles - no leg pain [...] - still getting 3 migranes a week- line service person feels it is whether change and allergies- [...]
--- OUTSIDE RECORDS SUMMARY | 2018-10-09 01:46 | XMS RPT_ITS ---
:1950 Author Organization OHIP Support Name Relationship Address Phone R Unavailable Unavailable Unavailable ALEX TORRES Unavailable [address] + [place] [address] R Unavailable Unavailable Unavailable ALEX TORRES Unavailable [address] + [place] [address] R Unavailable Unavailable Unavailable ALEX TORRES Unavailable [address] + [place] [address] R Unavailable Unavailable Unavailable ALEX TORRES Unavailable [address] + [place] [address] R Unavailable Unavailable Unavailable ALEX TORRES Unavailable [address] + [place] [address] R Unavailable Unavailable Unavailable ALEX TORRES Unavailable [address] + [place] [address] R Unavailable Unavailable Unavailable ALEX TORRES Unavailable [address] + [place] [address] R Unavailable Unavailable Unavailable ALEX TORRES Unavailable [address] + [place] [address] R Unavailable Unavailable Unavailable ALEX TORRES Unavailable [address] + [place] [address] R Unavailable Unavailable Unavailable ALEX TORRES Unavailable [address] + [place] [address] R Unavailable Unavailable Unavailable ALEX TORRES Unavailable [address] + [place] [address] R Unavailable Unavailable Unavailable ALEX TORRES Unavailable [address] + [place] [address] R Unavailable Unavailable Unavailable LUBA ALEX Unavailable [address] + [place] [address] Care Team Providers Name Role Phone Nii DO, Rylee Attending Unavailable Manda Higginbotham MD Referring Unavailable Nii DO, Rylee Consulting Unavailable Nii, Rylee Attending Unavailable Nii, Rylee Referring Unavailable Nii, Rylee Primary Care Unavailable Nii, Rylee Attending Unavailable Nii, Rylee Referring Unavailable Nii, Rylee Primary Care Unavailable Nii, Rylee Attending Unavailable Nii, Rylee Referring Unavailable Nii, Rylee Primary Care Unavailable Jovon, Jayaprakash Attending Unavailable Jovon, Jayaprakash Referring Unavailable Nii, Rlyee Primary Care Unavailable Prebish, Lauren RIPSAW OPERATOR-C Attending Unavailable Prebish, Lauren RIPSAW OPERATOR-C Referring Unavailable Nii, Rylee Primary Care Unavailable Nii, Rylee Primary Care Unavailable Toby, Gretta Attending Unavailable Wyneski, Gretta Referring Unavailable Nii, Rylee Consulting Unavailable Nii, Rylee Attending Unavailable Nii, Rylee Referring Unavailable Nii, Rylee Primary Care Unavailable Lillian Myers Attending Unavailable Nii, Rylee Referring Unavailable Nii, Rylee Primary Care Unavailable Tanphaichitr, Natthavat Attending Unavailable Tanphaichitr, Natthavat Referring Unavailable Nii, Rylee Primary Care Unavailable Alec Sigala Attending Unavailable Jovon, Alec Referring Unavailable Nii, Rylee Primary Care Unavailable Nii, Rylee Primary Care Unavailable Alec Sigala Attending Unavailable Jovon, Alec Referring Unavailable Nii, Rylee Attending Unavailable Nii, Rylee Primary Care Unavailable Nii, Rylee Referring Unavailable Nii, Rylee Attending Unavailable Nii, Rylee Referring Unavailable Nii, Rylee Primary Care Unavailable PROBLEMS PROBLEMS DATE TYPE CONDITION / CODE ATTENDING STATUS SOURCE 07/08/2018 Unknown N18.3 - Chronic Jovon, Active [place] kidney disease, [facility] stage 3 (moderate) / Hospital N18.3(ICD-10) Repository 07/08/2018 Unknown Z13.0 - Encounter Jovon, Active [place] for screening for [facility] diseases of the [facility] blood and Repository blood-forming organs and certain disorders involving the immune mechanism / Z13.0(ICD-10) 07/08/2018 Unknown E55.9 - Vitamin D Jovon, Active [place] deficiency, [facility] unspecified / Hospital E55.9(ICD-10) Repository 07/08/2018 Unknown E78.2 - Mixed Jovon, Active [place] hyperlipidemia / [facility] E78.2(ICD-10) Hospital Repository 07/08/2018 Unknown E04.1 - Nontoxic Jovon, Active [place] single thyroid [facility] nodule / Hospital E04.1(ICD-10) Repository 07/07/2018 Unknown R05 - Cough / Rylee Gracia Active [place] R05(ICD-10) [facility] Hospital Repository 03/20/2018 Unknown M25.511 - Pain in Rylee Gracia Active [place] right shoulder / [facility] M25.511(ICD-10) Hospital Repository 01/17/2018 Unknown K90.0 - Celiac Alec Sigala Active [place] disease / [facility] K90.0(ICD-10) Hospital Repository 10/16/2017 Unknown M54.5 - Low back Rylee Gracia Active [place] pain / M54.5(ICD-10) [facility] Repository 08/16/2017 Unknown M79.642 - Pain in Rylee Gracia Active [place] left hand / [facility] M79.642(ICD-10) Hospital Repository PROCEDURES PROCEDURES No Procedure Records FoundRESULTS RESULTS ABDOMEN SINGLE VIEW Observed: 08/07/2018 Status: F Source: [place] 12:19 PM [facility] REPOSITORY [facility] Imaging Services [address] [place] [address] Abdomen Single View MR#: [id number] Acct: [id number] Name: SUSANNE TORRES Rep #: [id number] : 1950 F 68 From: Yunior Arteaga PCP: Rylee Gracia DO Status: REG CLI Study: Abdomen Single View Date of Exam: 08/07/18 Exam# [id number] Ordering Dr: Gretta Luis MD STUDY: X-RAY - ABDOMEN/PELVIS REASON FOR EXAM: Female, 68 years old. Kidney stones TECHNIQUE: 2 views COMPARISON: None. FINDINGS: Normal visualized lung bases. There is an unremarkable bowel gas pattern. There is no demonstrated free abdominal air. There are 2 discrete stones identified in the region of the LEFT kidney measuring 6 and 5 mm. NO ureteral stones are identified. Normal soft tissue structures. Normal visualized osseous structures. RAD/Abdomen Single View IMPRESSION: There is an unremarkable bowel gas pattern. There is no demonstrated free abdominal air. There are 2 discrete stones identified in the region of the LEFT kidney measuring 6 and 5 mm. NO ureteral stones are identified. Electronically Signed: Yunior Arteaga MD at 6:43 EST , Service support , CC: Gretta Luis MD; Rylee Gracia DO Trouble Locater: Signed BRAIN W/WO CONTRAST Observed: 08/07/2018 Status: F Source: [place] 6:37 AM [facility] REPOSITORY [facility] Imaging Services [address] [place] [address] Brain W/WO Contrast MR#: [id number] Acct: [id number] Name: SUSANNE TORRES Rep #: [id number] : 1950 F 68 From: Radha Aguirre MD PCP: Rylee Gracia DO Status: REG CLI Study: Brain W/WO Contrast Date of Exam: 08/07/18 Exam# [id number] Ordering Dr: Rylee Gracia DO STUDY: MRI BRAIN WITH AND WITHOUT CONTRAST REASON FOR EXAM: Female, 68 years old. abnormal gait, balance issues x 18 mos, frequent falls TECHNIQUE: Standardized multiplanar fat and water weighted pulse sequences were obtained. 7 ml of Gadavist contrast material was administered intravenously for the contrast portion of the examination. COMPARISON: MRI of the brain with and without contrast December 04, 2008, CT exam November 22, 2008. FINDINGS: Normal size of the ventricles and extra-axial spaces for the patient's age. Normal white matter tracts of the supratentorial brain. There is no evidence for recent intracranial ischemia or other cause of cytotoxic edema on diffusion weighted imaging (DWI). Normal T2* images of the brain without demonstrated susceptibility artifact. There is no demonstrated hemosiderin stain. Normal bilateral basal ganglia. Normal thalami. There is no extra-axial fluid accumulation. Normal flow voids within the major intracranial circulation suggesting patency by spin echo criteria. Normal venous enhancement. There is no enhancing intra-axial or extra-axial abnormality. Normal sella turcica, pituitary gland, infundibular stalk, optic chiasm and hypothalamus. Normal tectal plate and pineal gland. Normal midbrain, demarcus and medulla. Normal cerebellum. Mildly prominent spaces seen in association with the folds of the right cerebellar hemisphere inferiorly, this was previously seen on CT exam and MRI and appears benign. Normal basal cisterns. Normal bilateral temporal bones. Normal bilateral internal auditory canals. No demonstrated orbital abnormality, within the constraints of a routine brain study. Normal visualized paranasal sinuses. Normal calvarium and skull base. Normal visualized soft tissue structures. Normal visualized upper cervical spine. MRI/Brain W/WO Contrast IMPRESSION: Stable appearance of the brain. No acute abnormality. Accentuated subarachnoid space in the fovea of the inferior right cerebellar hemisphere which has been present previously. No evidence of acute infarct. No abnormal enhancing mass. Electronically Signed: Radha Aguirre MD at 15:23 EST , Service support , CC: Rylee Gracia DO Trouble Locater: Signed KNEE 4 OR MORE Observed: 07/23/2018 Status: F Source: [place] VIEWS 9:29 AM [facility] REPOSITORY [facility] Imaging Services [address] [place] [address] Knee 4 or More Views MR#: [id number] Acct: [id number] Name: SUSANNE TORRES Rep #: [id number] : 1950 F 68 From: Hector Cervantes MD PCP: Rylee Gracia DO Status: REG CLI Study: Knee 4 or More Views Date of Exam: 07/23/18 Exam# [id number] Ordering Dr: Lauren Topete STUDY: X-RAY - LEFT KNEE REASON FOR EXAM: Female, 68 years old. Extremity/joint pain. TECHNIQUE: 4 view(s) of the knee, 2 of which are labeled as weightbearing. COMPARISON: None. FINDINGS: There is periarticular spurring of the femoral condyles. There is periarticular spurring and mild subcortical sclerosis of the medial tibial plateau. Normal visualized proximal fibula. There is periarticular spurring at the base of the patella. There is no demonstrated destructive osseous lesion or acute fracture. There is degenerative arthrosis of the medial femorotibial compartment with severe joint space narrowing. Normal lateral femorotibial joint space height, but there is faint chondrocalcinosis. Normal patellofemoral articulation. Normal proximal tibiofibular articulation. There is a soft tissue prominence in the suprapatellar region suggesting a very small volume joint effusion. The soft tissue structures are unremarkable. RAD/Knee 4 or More Views IMPRESSION: Degenerative arthrosis of the left knee, most significant in the medial femorotibial compartment. Electronically Signed: Luis Eduardo Cervantes MD at 9:24 EST , Service support , CC: Rylee Topete Trouble Locater: Signed CBC W/DIFF, AUTOMATED Collected: 07/08/2018 Status: F Source: [place] 7:13 AM [facility] REPOSITORY Order Comment: DR. GRACIA WANTS THE NMP CMP VITD TSH T3F CBCD T4F DR. SIGALA WNATS THE VITD PROCRE CBCD PTH PHOS CMP TYPE CODE TESTS RESULT OUT OF RANGE REFERENCE UNITS LAB L100.1000 4.4-11.0 K/mm3 Normal WBC 4.4 LAB L100.1200 4.2-5.4 M/mm3 Normal RBC 4.58 LAB L100.1300 12.0-15.0 g/dl Normal HGB 13.7 LAB L100.1400 37-47 % Normal HCT 43.4 LAB L100.1500 81-99 fL Normal MCV 94.8 LAB L100.1600 27.0-32.0 pg Normal MCH 29.9 LAB L100.1700 32-36 g/gl Low MCHC 31.6 LAB L100.1810 11.6-14.6 % Normal RDW CV 13.3 LAB L100.1820 35.1-43.9 fl High RDW SD 44.8 LAB L100.1900 150-450 K/mm3 Normal PLT 235 LAB L100.2000 6.2-12.0 fl Normal MPV 9.6 LAB L100.2100 47-70 % Normal NEUT% 51.3 LAB L100.2200 19-41 % Normal LY% 34.1 LAB L100.2300 0-10 % Normal MONO% 8.5 LAB L100.2400 0-5 % Normal EO% 3.2 LAB L100.2500 0-1 % High BASO% 2.7 LAB L100.2550 0.0-0.9 % Normal IM GRAN % 0.200 Result Comment: IG% - Immature Granulocytes (promyelocytes, myelocytes and metamyelocytes) > 1% indicates that a LEFT SHIFT is Present. LAB L100.2620 2.0-7.7 X10 3/uL Normal Absolute Neut 2.2 LAB L100.2720 0.83-4.51 X10 3/ul Normal Absolute Lymph 1.49 Performed By: #### L100.0100 #### [facility] [address] [place], [place], [address] PROTEIN+CREATININE Collected: Status: F Source: [facility],URINE 07/08/2018 7:13 AM [facility] REPOSITORY Order Comment: DR. GRACIA WANTS THE NMP CMP VITD TSH T3F CBCD T4F DR. SIGALA WNATS THE VITD PROCRE CBCD PTH PHOS CMP TYPE CODE TESTS RESULT OUT OF RANGE REFERENCE UNITS LAB L501.1200 NO RANGE EST. mg/dL Normal UR CREAT 154.00 LAB L501.1930 <11.9 mg/dL High 12.1 PROTEIN,UR.R AN. LAB L501.1940 0-200 mg/g CRE Normal PROT:CRE 79 RATIO Performed By: #### L501.0900 #### [facility] [address] [facility] [place], [address] VITAMIN D,25 HYDROXY Collected: 07/08/2018 Status: F Source: [place] 7:13 AM [facility] REPOSITORY Order Comment: DR. GRACIA WANTS THE [facility] CMP VITD TSH T3F CBCD T4F DR. SIGALA WNATS THE VITD PROCRE CBCD PTH PHOS CMP TYPE CODE TESTS RESULT OUT OF RANGE REFERENCE UNITS LAB L506.1000 29.95-100.01 ng/mL Normal Vitamin D 33.5 25-OH Result Comment: Vitamin D 25(OH) Status Range Deficiency <20 ng/mL (50nmol/L) Insuffciency 20 - 30 ng/mL (50 - 75 nmol/L) Sufficiency 30 - 100 ng/mL (75 - 250 nmol/L) Toxicity >100 ng/mL (>250 nmol/L) Performed By: #### L506.1000 #### [facility] [address] [facility] [place], [address] PTHIN Collected: 07/08/2018 Status: F Source: [place] 7:13 AM [facility] REPOSITORY Order Comment: DR. GRACIA WANTS THE [facility] CMP VITD TSH T3F CBCD T4F DR. SIGALA WNATS THE VITD PROCRE CBCD PTH PHOS CMP TYPE CODE TESTS RESULT OUT OF RANGE REFERENCE UNITS LAB L509.1000 18.4-80.1 pg/mL Normal PTHIN 60.9 Performed By: #### L509.1000 #### [facility] [address] [facility] [place], [address] COMPREHENSIVE METABOLIC Collected: 07/08/2018 Status: F Source: [place] PROFIL 7:13 AM [facility] REPOSITORY Order Comment: DR. GRACIA WANTS THE [facility] CMP VITD TSH T3F CBCD T4F DR. SIGALA WNATS THE VITD PROCRE CBCD PTH PHOS CMP TYPE CODE TESTS RESULT OUT OF RANGE REFERENCE UNITS LAB L501.0100 74-106 mg/dL Normal GLU 97 Result Comment: Please note revised GLUCOSE reference range effective 2017. LAB L501.1000 7-18 mg/dL High BUN 25 LAB L501.1100 0.55-1.02 mg/dL Normal CREAT,SERUM 0.95 Result Comment: The validity of the calculated GFR AND GFRAA in patients over 70 years has not been determined. Clinical correlation is essential. LAB L501.1110 >60 mL/min Normal EST GFR 62 Result Comment: Non- GFR Calc LAB L501.1115 >60 mL/min Normal EST GFR - AA 75 Result Comment: GFR Calc LAB L501.1300 10-20 RATIO High BUN/CRE 26.2 LAB L501.1500 6.4-8.2 g/dL T Normal PROT 6.8 LAB L501.1800 3.2-5.0 g/dL Normal ALB 3.8 LAB L501.1950 2.2-4.2 g/dL Normal GLOB 3.0 LAB L501.2000 0.9-2.4 RATIO Normal A/G 1.3 LAB L501.2200 8.5-10.1 mg/dL CA Normal 9.0 LAB L501.4100 15-37 U/L Low AST 14 LAB L501.4305 45-117 U/L Normal ALK P 74 LAB L501.4405 13-56 U/L Normal ALT 18 LAB L501.4600 0.20-1.00 mg/dL T Normal BILI 0.50 LAB L501.5300 136-145 mmol/L NA Normal 144 LAB L501.5600 3.5-5.1 mmol/L K Normal 4.5 LAB L501.5900 98-107 mmol/L CL Normal 107 LAB L501.6100 21.0-32.0 mmol/L Normal CO2 28.0 LAB L501.6200 5-15 Normal GAP 9 Performed By: #### L500.4050, L501.2300, L501.46318, L501.9520, L506.0400 #### [facility] [address] [place], [address] PHOSPHORUS Collected: 07/08/2018 Status: F Source: [place] 7:13 AM [facility] REPOSITORY Order Comment: DR. GRACIA WANTS THE [facility] CMP VITD TSH T3F CBCD T4F DR. JOVON SANDOVAL THE VITD PROCRE CBCD PTH PHOS CMP TYPE CODE TESTS RESULT OUT OF RANGE REFERENCE UNITS LAB L501.2300 2.5-4.9 mg/dL Normal PHOS 3.2 Performed By: #### L500.4050, L501.2300, L501.15991, L501.9520, L506.0400 #### [facility] [address] [place], [address] FREE T3 Collected: 07/08/2018 Status: F Source: [place] 7:13 AM [facility] REPOSITORY Order Comment: DR. GRACIA WANTS THE [facility] CMP VITD TSH T3F CBCD T4F DR. JOVON SANDOVAL THE VITD PROCRE CBCD PTH PHOS CMP TYPE CODE TESTS RESULT OUT OF RANGE REFERENCE UNITS LAB L501.31632 2.18-3.98 pg/mL Normal FREE T3 2.4 Performed By: #### L500.4050, L501.2300, L501.34659, L501.9520, L506.0400 #### [facility] [address] [place], [address] THYROID STIM HORMONE Collected: 07/08/2018 Status: F Source: [place] (TSH) 7:13 AM [facility] REPOSITORY Order Comment: DR. GRACIA WANTS THE [facility] CMP VITD TSH T3F CBCD T4F DR. JOVON SANDOVAL THE VITD PROCRE CBCD PTH PHOS CMP TYPE CODE TESTS RESULT OUT OF RANGE REFERENCE UNITS LAB L501.9520 0.358-3.74 uIU/mL Normal TSH 3.04 Performed By: #### L500.4050, L501.2300, L501.75027, L501.9520, L506.0400 #### [facility] [address] [place], [address] T4 FREE DIRECT Collected: 07/08/2018 Status: F Source: [place] 7:13 AM [facility] REPOSITORY Order Comment: DR. GRACIA WANTS THE NMP CMP VITD TSH T3F CBCD T4F DR. JOVON SANDOVAL THE VITD PROCRE CBCD PTH PHOS CMP TYPE CODE TESTS RESULT OUT OF RANGE REFERENCE UNITS LAB L506.0400 0.76-1.46 ng/dL Normal T4 FREE 1.05 DIRECT Performed By: #### L500.4050, L501.2300, L501.19175, L501.9520, L506.0400 #### [facility] [place], [address] NMR LIPOPROFILE Collected: 07/08/2018 Status: F Source: [place] 7:13 AM [facility] REPOSITORY Order Comment: DR. GRACIA WANTS THE [facility] CMP VITD TSH T3F CBCD T4F DR. SIGALA WNATS THE VITD PROCRE CBCD PTH PHOS CMP TYPE CODE TESTS RESULT OUT OF RANGE REFERENCE UNITS LAB L3500.0250 LIPIDS Normal . LAB L3500.0300 100-199 mg/dL CHOLESTEROL Normal TOT 195 LAB L3500.0350 0-99 mg/dL LDL-C Normal 97 Result Comment: Optimal < 100 Above optimal 100 - 129 Borderline 130 - 159 High 160 - 189 Very high > 189 LDL-C is inaccurate if patient is non-fasting. LAB L3500.0400 >39 mg/dL HDL-C Normal 87 LAB L3500.0450 0-149 mg/dL TRIGLYCERIDES Normal 56 LAB L3500.0560 <1000 nmol/L LDL-P Normal 960 Result Comment: Low < 1000 Moderate 1000 - 1299 Borderline-High 1300 - 1599 High 1600 - 2000 Very High > 2000 LAB L3500.0575 Normal LD HD PARTICLES . LAB L3500.0580 >=30.5 umol/L Normal HDL-P TOTAL 48.2 LAB L3500.0585 <=527 nmol/L Normal SMALL LDL-P 244 LAB L3500.0590 >20.5 nm Normal LDL SIZE 21.0 Result Comment: INTERPRETATIVE INFORMATION PARTICLE CONCENTRATION AND SIZE <--Lower CVD Risk Higher CVD Risk--> LDL AND HDL PARTICLES Percentile in Reference Population HDL-P (total) High 75th 50th 25th Low >34.9 34.9 30.5 26.7 <26.7 Small LDL-P Low 25th 50th 75th High <117 117 527 839 >839 LDL Size <-Large (Pattern A)-> <-Small (Pattern B)-> 23.0 20.6 20.5 19.0 Small LDL-P and LDL Size are associated with CVD risk, but not after LDL-P is taken into account. These assays were developed and their performance characteristics determined by [employer]. These assays have not been cleared by the [place] Food and Drug Administration. The clinical utility of these laboratory values have not been fully established. LAB L3500.0595 Normal INS RES/DIAB RK . LAB L3500.0875 <=45 Normal LP-IR SCORE <25 Result Comment: INSULIN RESISTANCE MARKER <--Insulin Sensitive Insulin Resistant--> Percentile in Reference Population Insulin Resistance Score LP-IR Score Low 25th 50th 75th High <27 27 45 63 >63 LP-IR Score is inaccurate if patient is non-fasting. The LP-IR score is a laboratory developed index that has been associated with insulin resistance and diabetes risk and should be used as one component of a physician's clinical assessment. The LP-IR score listed above has not been cleared by the [place] Food and Drug Administration. Performed at: - [facility] [id number] Crosscutter: Juwan Hendrix MD, Phone: [phone] Performed By: #### L3500.0000 #### [facility] (refer to report for specific site) refer to report for address and phone number CHEST PA AND LATERAL Observed: 07/07/2018 Status: F Source: [place] 11:42 AM [facility] REPOSITORY [facility] Imaging Services [address] [place] [address] Chest PA and Lateral MR#: [id number] Acct: [id number] Name: SUSANNE TORRES Rep #: [id number] : 1950 F 68 From: Hector Oliveira MD PCP: Rylee Gracia DO Status: REG CLI Study: Chest PA and Lateral Date of Exam: 07/07/18 Exam# [id number] Ordering Dr: Rylee Gracia DO STUDY: X-RAY CHEST REASON FOR EXAM: Female, 68 years old. Coughing at night TECHNIQUE: PA and lateral views of the chest. COMPARISON: 06/13/2015 FINDINGS: The lungs are clear and expanded. There is no demonstrated pleural abnormality. Normal size heart. Normal mediastinum and robe. Normal visualized pulmonary arteries. Normal visualized aortic arch and descending thoracic aorta. There is a dextroscoliosis of the thoracic spine. Normal visualized ribs, clavicles, and shoulders. There is no demonstrated abnormality of the visualized soft tissue structures of the upper abdomen. RAD/Chest PA and Lateral IMPRESSION: No acute pulmonary process Electronically Signed: Luis Eduardo Oliveira MD at 16:49 EST , Service support , CC: Rylee Gracia DO Trouble Locater: Signed PT D/C SUMMARY (1) Observed: 03/20/2018 Status: F Source: [place] 9:32 AM [facility] REPOSITORY [facility] [address] [place] [address]. [address] [place] [address] Fax REHABILITATION SERVICES DISCHARGE SUMMARY MR#: [id number] Acct: [id number] Name: SUSANNE TORRES Rep #: [id number] : 1950 68 From: Mitch Leonard DPT, OCS, CSCS Referring Dr.: Rylee Gracia DO Status: REG RCR Insurance: MEDICARE PART A B [employer] HP - PT D/C Summary It has been my pleasure to treat SUSANNE TORRES under orders from Rylee Gracia, for the diagnosis of R shouldr pain for a total of 13 visit(s). Discharge Date: 03/19/18 Please see the following information for a summary of their discharge status. - Subjective Subjective: Lot less pain. Still gets some to 2/10 with sleeping position, or reaching behind. Comfortable at rest. Strengthening at home with band, will also do machines as instructed at [employer]. 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 - Pain R shoulder Pain Intensity (Out of 10): 2 - Overall Improvement % Improvement: 90 - Objective Objective/Function: Full aROM but pain end of flex adn abd today, not IR or ER. Strength is 4+/5 with some pain abd and empty can, and slight feeling with ext rotation. OVERALL MUCH BETTER AND VERY FUNCTIONAL, WILL CONTINUE VIA HEP. - Goals Goal 1:: Lift arm overhead without pain. Full AROM elevation adn rotation Goal Progress: [...] - Plan Plan: D/C - D/C Information Discharge Comments: Pt doing very well and will continue with acitvity modification and HEP of strength adn ROM. Will contact doctor if pain worsens again. She did have injection about two weeks agoa and will f/u with Dr. Sweeney. If there are questions or concerns regarding this patient's physical therapy, please feel free to call me at [phone]. Thank you for the referral of this patient. Sincerely, Mitch Leonard, LILIAT, OC <Electronically signed by Mitch Leonard DPT, OCS, CSCS> 03/20/18 0932 CC: Rylee Gracai DO EB Signed RE-EVALUATION - PT (1) Observed: 03/04/2018 Status: F Source: [place] 9:39 AM [facility] REPOSITORY [facility] [address] [place] [address]. [address] [place] [address] Fax REEVALUATION / MEDICARE RECERTIFICATION PHYSICAL THERAPY MR#: [id number] Acct: [id number] Name: SUSANNE TORRES Rep #: [id number] : 1950 68 From: Mitch Leonard DPT, OCS, CSCS Referring Dr.: Rylee Gracia DO Status: REG RCR Insurance: MEDICARE PART A B [employer] Rylee Nii, It has been my pleasure to treat SUSANNE TORRES over the last 7 visits for R shouldr pain. Please see the progress note below for an update on the physical therapy plan of care! Subjective: Out of the blue while I was sitting at [employer] my shldr just starting hurting worse. Reports the pain to be located in the front and under the shldr joint. Objective/Function: Review of postural maintainence so as to not exacerbate symptoms while sitting at [facility]. Pt states, I guess I wasn't really paying attention to how I was sitting. Minimal progression today in reps of current exc, however able to tolerate newly added shldr flexion and ABD exc with wts against gravity. While working on kinesis, pt tripped on lower portion of machine and fell FWDs onto L hand and knees. States she was more embarrassed than painful. Minimal c/o's of L stoved wrist. Pt denied need to go to urgent care or ED. Instructed to do so if symptoms worsen. Instructed to ice if feeling swollen - pt agreeable. QUANTROS filled out. Seeing supervising PT for last f/u appt after today's appt. Plan Plan: 3x/week for 2-4... 1. Activitiy modification(ensure not exacerbating). 2. US nonthermal R supra. 3. Gentle mobs and ROM to R UE, progress to strengthen of postural and RC muscles to tolerance. pec stretch. 4. ice as needed. Goals Goal 1:: Lift arm overhead without [...] chance of recurrence. Goal Time Frame: 4-6 Weeks Goal Progress: Progressing Goal 4:: Sleep without [...] do not hesitate to contact me at [phone] by phone or if you have questions or concerns regarding this new plan of care! Sincerely, Mitch Leonard, DPT, OC <Electronically signed by Mitch Leonard DPT, OCS, CSCS> 03/04/18 0939 CC: Rylee Gracia DO EBG Signed For Medicare only, by signing this I certify the plan of care. Physicians Signature Date INITAL EVALUATION (1) Observed: 02/19/2018 Status: F Source: [place] PT 7:22 AM [facility] REPOSITORY [facility] [address] [place] [address]. [address] [place] [address] Fax REHABILITATION SERVICES INITIAL EVALUATION MR#: [id number] Acct: [id number] Name: SUSANNE TORRES Rep #: [id number] : 1950 68 From: Mitch Leonard DPT, OCS, CSCS Referring Dr.: Rylee Gracia DO Status: REG RCR Insurance: MEDICARE PART A B [employer] Patient's Visit Information SUSANNE TORRES is a 68 year old F referred to Physical Therapy by Rylee Gracia with a diagnosis of R shouldr pain. Date of Evaluation: 02/17/18 Physical Therapist: Mitch Leonard, DPT, OC - Visit Plan Frequency: 3x /Week Duration: 4-6 Weeks Plan: 3x/week for 2-4... 1. Activitiy modification(ensure not exacerbating). 2. US nonthermal R supra. 3. Gentle mobs and ROM to R UE, progress to strengthen of postural and RC muscles to tolerance. pec stretch. 4. ice as needed. 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 That was 6 weeks ago and it has hurt ever since intermittently with extending it at night with sleep, pulling pants up, WB through R UE. Comfortable for the most part at rest. Pain is in the R armpit. Xrays showed some OA. This is a new problem. Wakes her up at night if she sleeps with R UE under pillow. Does nto work. Activities are limtied in that she feels it getting dressed andcan only weed for so long. - Pain R shoulder Pain Intensity (Out of 10): 0 Pain Intensity Range: 0, 5 - Objective c/s AROM WFL and full adn painfree. Full AROM B shoulders but R painful above 130 flex adn abd. And with IR. + R alicia Domenic and + R neer. Tender to palpation over R supra and subscap max. - ext rotation lag test, - drop arm. reflexes 2/3 bi and tri. Sensation UE WNL to gross light touch. Strength 4/5 R UE but pain with flex, abd, empty can, ext rotation, IR, and slight with biceps. - Goals Goal 1:: Lift arm overhead without pain. Full AROM elevation adn rotation Goal Time Frame: 4-6 Weeks Goal 2:: Patient report pain 1/10 at worst adn only with LLA movements, 90% better overall. Goal Time Frame: 4-6 Weeks Goal 3:: Patient I in appropriate strength and postural ex to minimize chance of recurrence. Goal Time Frame: 4-6 Weeks Goal 4:: Sleep without waking due to pain. Goal Time Frame: 2-4 Weeks - Rehabilitation Potential Physical Therapy Diagnosis: R shouldr pain, impingement tendonitis. Rehabilitation Potential: Good - Anticipated Interventions Patient/Client [...] of:: To decrease pain, To decrease swelling/inflammation Thank you for the opportunity to evaluate your patient. For Medicare and Medicare HMO plans, please review the plan of care and approve it. It will need to be FAXED BACK to us at [phone] for Medicare purposes. Please let me know if there are questions or concerns regarding this plan of care. Physician Signature: Date: <Electronically signed by Mitch Leonard DPT, OCS, CSCS> 02/19/18 0722 CC: Rylee Gracia DO EBG Signed For Medicare only, by signing this I certify the plan of care. Physicians Signature Date SHOULDER MIN 2 VIEWS Observed: 02/13/2018 Status: F Source: [place] 12:23 PM [facility] REPOSITORY [facility] Services [address] [place] [address] Shoulder min 2 Views MR#: [id number] Acct: [id number] Name: SUSANNE TORRES Rep #: [id number] : 1950 F 68 From: Hector Oliveira MD PCP: Rylee Gracia DO Status: REG CLI Study: Shoulder min 2 Views Date of Exam: 02/13/18 Exam# [id number] Ordering Dr: Rylee Gracia DO STUDY: X-RAY - RIGHT SHOULDER REASON FOR EXAM: Female, 68 years old. Persistent pain x3 weeks TECHNIQUE: Or view(s) of the shoulder. COMPARISON: None. FINDINGS: Normal glenohumeral articulation. There is degenerative arthrosis of the acromioclavicular joint without inferior osseous spur formation. Normal acromion. Normal humeral head and visualized proximal humerus. The soft tissue structures are unremarkable. Normal visualized pulmonary apex. RAD/Shoulder min 2 Views IMPRESSION: Mild acromioclavicular joint arthrosis, no demonstrated fracture, or suspicious osseous lesion. Electronically Signed: Luis Eduardo Oliveira MD at 12:49 EDT , Service support , CC: Rylee Gracia DO Trouble Locater: Signed MISCELLANEOUS LAB Collected: 02/04/2018 Status: F Source: [place] PROCEDURE 11:08 AM [facility] REPOSITORY Order Comment: Comments: [id number] TRANGLUTAMINASE SER FZ Test(s) Ordered: [id number] TRANGLUTAMINASE SER FZ TYPE CODE TESTS RESULT OUT OF RANGE REFERENCE UNITS LAB L801.1541 Normal [facility] LAB TEST Result Comment: TEST RESULT LIMITS Transglutaminase Ab IgG/M/A Tragl IgG <1.2 U/mL 0.0 - 6.0 Reference Range Negative < 6.0 U/mL Weak Positive 6.0 - 9.0 U/mL Positive > 9.0 U/mL Tragl IgM 2.0 U/mL 0.0 - 12.4 Reference Range Negative < 9.6 U/mL Equivocal 9.6 - 12.4 U/mL Positive > 12.4 U/mL The performance characteristics of the Transglutaminase IgM assay was validated by [facility]. The [place] FDA has not approved or cleared this test. The results of this assay can be used for clinical diagnosis without FDA approval. [facility]. is a CLIA certified, CAP accredited laboratory for performing high complexity assays such as this one. Tragl IgA < 1.2 U/mL 0.0 - 4.0 Reference Range Negative < 4.0 U/mL Weak Positive 4.0 - 10.0 U/mL Positive > 10.0 U/mL Comment TESTING PERFORMED AT [facility]. ORIGINAL REPORT ON FILE IN LAB CONTAINS ADDITIONAL TEST SITE INFORMATION. Performed By: #### L801.1541 #### [facility] [address] [facility] [place], [address] THYROID Observed: 02/04/2018 Status: F Source: [place] 7:54 AM [facility] REPOSITORY [facility] Imaging Services [address] [place] [address] Thyroid MR#: [id number] Acct: [id number] Name: SUSANNE TORRES Rep #: [id number] : 1950 F 68 From: Bayron Pyaan MD PCP: Rylee Gracia DO Status: REG CLI Study: Thyroid Date of Exam: 02/04/18 Exam# [id number] Ordering Dr: Rylee Gracia DO STUDY: THYROID ULTRASOUND REASON FOR EXAM: Female, 68 years old. History of thyroid nodules. Dysphagia. TECHNIQUE: Ultrasound evaluation of the thyroid was performed with real-time and static fairchild-scale imaging. COMPARISON: Comparison is made with prior study dated January 03, 2017. FINDINGS: RIGHT LOBE: The right lobe of the thyroid gland measures 4.5 cm x 2.2 cm x 1.3 cm. There is a homogeneous echotexture. 3 subcentimeters nodules are once again seen. The largest measures 6 mm x 4 mm x 3 mm. These are hypoechoic and solid nodules. LEFT LOBE: The left lobe of the thyroid gland measures 4.6 cm x 1.9 cm x 1.2 cm. There is a homogeneous echotexture. There is a 1.3 cm x 1 cm x 0.7 cm hypoechoic solid nodule in the midportion of the left lobe of the thyroid. This is unchanged as well. ISTHMUS: The isthmus measures 3 mm. The regional lymph nodes are normal. US/Thyroid IMPRESSION: Bilateral thyroid nodules larger in the left lobe. There has been essentially no change. Electronically Signed: Bayron Payan MD at 10:35 EDT Tel [phone], Service support , CC: Rylee Gracia DO Trouble Locater: Signed CBC-COMPLETE BLOOD CNT Collected: 01/17/2018 Status: F Source: [place] NO DIFF 10:30 AM [facility] REPOSITORY TYPE CODE TESTS RESULT OUT OF RANGE REFERENCE UNITS LAB L100.1000 4.4-11.0 K/mm3 Normal WBC 6.0 LAB L100.1200 4.2-5.4 M/mm3 Normal RBC 4.52 LAB L100.1300 12.0-15.0 g/dl Normal HGB 13.1 LAB L100.1400 37-47 % Normal HCT 41.6 LAB L100.1500 81-99 fL Normal MCV 92.0 LAB L100.1600 27.0-32.0 pg Normal MCH 29.0 LAB L100.1700 32-36 g/gl Low MCHC 31.5 LAB L100.1810 11.6-14.6 % Normal RDW CV 13.3 LAB L100.1820 35.1-43.9 fl High RDW SD 44.4 LAB L100.1900 150-450 K/mm3 Normal PLT 258 LAB L100.2000 6.2-12.0 fl Normal MPV 9.8 Performed By: #### L100.0500 #### [facility] [address] [place], [address] THYROGLOBULIN ANTIBODY Collected: 01/17/2018 Status: F Source: [place] 10:30 AM [facility] REPOSITORY TYPE CODE TESTS RESULT OUT OF RANGE REFERENCE UNITS LAB L3300.7027 0.0-0.9 IU/mL High TG AB 1.1 Result Comment: Thyroglobulin Antibody measured by [employer] Methodology Performed at: - [facility] [address] [id number] Crosscutter: Joaquim Barrett PhD, Phone: [phone] Performed By: #### L3300.7027, L3410.2710 #### [facility] (refer to report for specific site) refer to report for address and phone number ENDOMYSIAL ANTIBODY Collected: 01/17/2018 Status: F Source: [place] IGA 10:30 AM [facility] REPOSITORY TYPE CODE TESTS RESULT OUT OF REFERENCE UNITS RANGE LAB L3410.2710 Negative Normal ENDOMYSIAL IGA Negative Performed By: #### L3300.7027, L3410.2710 #### [facility] (refer to report for specific site) refer to report for address and phone number CBC-COMPLETE BLOOD CNT Collected: 01/08/2018 Status: F Source: [place] NO DIFF 7:23 AM [facility] REPOSITORY TYPE CODE TESTS RESULT OUT OF RANGE REFERENCE UNITS LAB L100.1000 4.4-11.0 K/mm3 Low WBC 4.3 LAB L100.1200 4.2-5.4 M/mm3 Normal RBC 4.52 LAB L100.1300 12.0-15.0 g/dl Normal HGB 13.2 LAB L100.1400 37-47 % Normal HCT 41.6 LAB L100.1500 81-99 fL Normal MCV 92.0 LAB L100.1600 27.0-32.0 pg Normal MCH 29.2 LAB L100.1700 32-36 g/gl Low MCHC 31.7 LAB L100.1810 11.6-14.6 % Normal RDW CV 13.2 LAB L100.1820 35.1-43.9 fl High RDW SD 44.1 LAB L100.1900 150-450 K/mm3 Normal PLT 237 LAB L100.2000 6.2-12.0 fl Normal MPV 9.5 Performed By: #### L100.0500 #### [facility] [address] [place], [place], [address] MICROALB:CREAT Collected: 01/08/2018 Status: F Source: [place] RATIO,RANDOM UR 7:23 AM [facility] REPOSITORY TYPE CODE TESTS RESULT OUT OF RANGE REFERENCE UNITS LAB L501.1200 NO RANGE EST. mg/dL Normal UR CREAT 95.70 LAB L502.0500 NO RANGE EST. mg/L Normal 5.3 MICROALBUMIN ,UR LAB L502.0600 <30 mg/g CRE mg/g CRE Normal 5.6 MALB:CREAT Performed By: #### L502.0250 #### [facility] [address] [place], [place], [address] VITAMIN D,25 HYDROXY Collected: 01/08/2018 Status: F Source: [place] 7:23 AM [facility] REPOSITORY TYPE CODE TESTS RESULT OUT OF RANGE REFERENCE UNITS LAB L506.1000 29.95-100.01 ng/mL Normal Vitamin D 34.7 25-OH Result Comment: Vitamin D 25(OH) Status Range Deficiency <20 ng/mL (50nmol/L) Insuffciency 20 - 30 ng/mL (50 - 75 nmol/L) Sufficiency 30 - 100 ng/mL (75 - 250 nmol/L) Toxicity >100 ng/mL (>250 nmol/L) Performed By: #### L506.1000 #### [facility] [address] [place], [place], [address] PTHIN Collected: 01/08/2018 Status: F Source: [place] 7:23 AM [facility] REPOSITORY TYPE CODE TESTS RESULT OUT OF RANGE REFERENCE UNITS LAB L509.1000 18.4-80.1 pg/mL Normal PTHIN 78.4 Performed By: #### L509.1000 #### [facility] [address] [place], [place], [address] RENAL PROFILE Collected: 01/08/2018 Status: F Source: [place] 7:23 AM [facility] REPOSITORY TYPE CODE TESTS RESULT OUT OF RANGE REFERENCE UNITS LAB L501.0100 74-106 mg/dL Normal GLU 97 Result Comment: Please note revised GLUCOSE reference range effective 2017. LAB L501.1000 7-18 mg/dL High BUN 21 LAB L501.1100 0.55-1.02 mg/dL Normal CREAT,SERUM 0.91 Result Comment: The validity of the calculated GFR AND GFRAA in patients over 70 years has not been determined. Clinical correlation is essential. LAB L501.1110 >60 mL/min Normal EST GFR 65 Result Comment: Non- GFR Calc LAB L501.1115 >60 mL/min Normal EST GFR - AA 79 Result Comment: GFR Calc LAB L501.1300 10-20 RATIO High BUN/CRE 23.1 LAB L501.1800 3.2-5.0 g/dL Normal ALB 3.7 LAB L501.2200 8.5-10.1 mg/dL CA Normal 8.7 LAB L501.2300 2.5-4.9 mg/dL Normal PHOS 3.1 LAB L501.5300 136-145 mmol/L NA Normal 144 LAB L501.5600 3.5-5.1 mmol/L K Normal 4.3 LAB L501.5900 98-107 mmol/L CL Normal 107 LAB L501.6100 21.0-32.0 mmol/L Normal CO2 28.0 Performed By: #### L500.3600, L501.5200 #### [facility] [address] [place], [place], [address] MAGNESIUM Collected: 01/08/2018 Status: F Source: [place] 7:23 AM [facility] REPOSITORY TYPE CODE TESTS RESULT OUT OF RANGE REFERENCE UNITS LAB L501.5200 1.6-2.6 mg/dL Normal MG 2.3 Performed By: #### L500.3600, L501.5200 #### [facility] [address] [place], [address] PT D/C SUMMARY (1) Observed: 10/16/2017 Status: F Source: [place] 9:58 AM [facility] REPOSITORY [facility] [address] [place] [address] Fax REHABILITATION SERVICES DISCHARGE SUMMARY MR#: [id number] Acct: [id number] Name: SUSANNE TORRES Rep #: [id number] : 1950 67 From: Martín Arteaga DPT Referring Dr.: Rylee rGacia DO Status: REG RCR Insurance: MEDICARE PART A B [employer] HP - PT D/C Summary It has been my pleasure to treat SUSANNE TORRES under orders from Rylee Gracia, for the diagnosis of for a total of 10 visit(s). Discharge Date: 10/11/17 Please see the following information [...] balance testing. Pt. had a TUG of 6.07sec without AD. She is neogitiating steps without HR wtih reciprocal patterns. Pt. is pleased with PT. She will be DC to HEP at this point intime. - Goals Goal 1:: Pt. to be I with HEP. Goal Progress: Goal Met Goal 2:: Pt. to have increased RLE strength and core strength to reduce stress on lumbar spine with all functional mobility. Goal Progress: Goal Met Goal 3:: Pt. to have a balance neurocom assessment completed. Goal Progress: Goal Met Goal 4:: Pt. to have increased FGA to 25/30 indicating reduced riskf or future falls. Goal Progress: Goal Met Goal 5:: Pt. to report 0-2/10 pain in R side of lumbar spine with all functional mobility. Goal [...] and no falls recently. Pt. has proper balance activites to progress at home. Pt. has overall increased stability. Pt. did have Neurocom testing completed that was able to help with focusing on target areas for balance. Pt. will be DC to physician at this point in time. If there are questions or concerns regarding this patient's physical therapy, please feel free to call me at [phone]. Thank you for the referral of this patient. Sincerely, Martín Arteaga <Electronically signed by Martín Arteaga DPT> 10/16/17 0958 CC: Rylee Gracia DO CLS Signed URGENT CARE VISIT Observed: 10/12/2017 Status: F Source: [place] REPORT 10:20 AM [facility] REPOSITORY [facility] [address] [place] [address] OFFICE VISIT Date of Service: 10/12/17 MR#: [id number] Acct: [id number] Name: LUBASUSANNE C Rep #: [id number] : 1950 Provider: Lillian Myers Age/Sex: 67/F Location: [facility] Status: Signed Intake Vital Signs10/12/17 Height 5 ft 2.5 in 10/12/17 Weight: 164 lb 10/12/17 Body Mass Index (BMI) 29.5 Intake Visit Reasons: L eye swelling Allergies Sulfa (Sulfonamide Antibiotics) Allergy (Verified 10/12/17 10:10) Rash Medications Bupropion HCl [Bupropion Xl] 150 mg PO DAILY 12/30/14 [History Confirmed 10/12/17] traZODone [Desyrel] 50 mg [...] ache, chills, fatigue, fever(s) or headache(s) Eyes Eyes: Positive for eye pain; no discharge ENT ENT: No headache(s), ear pain, ear pressure, tinnitus, dizziness/vertigo, nasal congestion, nasal discharge, sinus pressure, dental pain or facial pain Resp Respiratory: No cough or chest congestion Cardio Cardiology: No dyspnea on exertion, shortness of breath or irregular heart rhythm Gastro GI: No vomiting, diarrhea or heartburn Neuro Neurology: No headache(s) Endo Endocrine: No fatigue Exam Const General: cooperative, no acute distress, well developed [facility] Head: normal to inspection, atraumatic Ears: [...] Cellulitis of other specified site L03.818 Plan Patient does have a chalazion noted on her left upper eyelid. Since she has been rubbing it she has some cellulitis noted. Will treat her with Keflex. Also advised to use warm compresses to help with chalazion. If not any improvement advised that she see her dog beautician. Medications New: Coding Level of Care Code [...] PO DAILY 12/30/14 [History Confirmed 10/12/17] traZODone [Desyrel] 50 mg [...] ache, chills, fatigue, fever(s) or headache(s) Eyes Eyes: Positive for eye pain; no discharge ENT ENT: No headache(s), ear pain, ear pressure, tinnitus, dizziness/vertigo, nasal congestion, nasal discharge, sinus pressure, dental pain or facial pain Resp Respiratory: No cough or chest congestion Cardio Cardiology: No dyspnea on exertion, shortness of breath or irregular heart rhythm Gastro GI: No vomiting, diarrhea or heartburn Neuro Neurology: No headache(s) Endo Endocrine: No fatigue Exam Const General: cooperative, no acute distress, well developed [facility] Head: normal to inspection, atraumatic Ears: [...] Cellulitis of other specified site L03.818 Plan Patient does have a chalazion noted on her left upper eyelid. Since she has been rubbing it she has some cellulitis noted. Will treat her with Keflex. Also advised to use warm compresses to help with chalazion. If not any improvement advised that she see her dog beautician. Medications New: Coding Level of Care Code Off vis,est,level 4 Diagnoses Cellulitis of other specified site L03.818 Site of cellulitis: other site 10/12/17 1020 <Electronically signed by Lillian FLORES> Date Lillian FLORES Cosigner Signature: Date (if applicable) CC: PT COMMUNICATION Observed: 09/24/2017 Status: F Source: [place] 9:26 AM [facility] REPOSITORY [facility] [address] [place] [address] Fax REHABILITATION SERVICES PROGRESS NOTE MR#: [id number] Acct: [id number] Name: SUSANNE TORRES Rep #: [id number] : 1950 67 From: Tatiana JONHSTON Referring Dr.: Rylee Gracia DO Status: REG RCR Insurance: MEDICARE PART A B [employer] PT Communication Note [...] <Electronically signed by Tatiana Wagner MPT> Date Tatiana Stoner MPT Cosigner Signature (if applicable): Date CC: Rylee Gracia DO Signed For Medicare only, by signing this I certify the plan of care. Physicians Signature Date INITAL EVALUATION (1) Observed: 09/18/2017 Status: F Source: [place] - PT 7:10 PM [facility] REPOSITORY [facility] [address] [place] [address]. [address] [place] [address] Fax REHABILITATION SERVICES INITIAL EVALUATION MR#: [id number] Acct: [id number] Name: SUSANNE TORRES Rep #: [id number] : 1950 67 From: Martín Arteaga DPT Referring DrJayden: Rylee Gracia DO Status: REG RCR Insurance: MEDICARE PART A B [employer] Patient's Visit Information SUSANNE TORRES is a 67 year old F referred to Physical Therapy by Rylee Gracia DR.KFEARO with a diagnosis of . Date of Evaluation: 09/18/17 Physical Therapist: Martín Arteaga - Visit [...] LBP for 40+ years and her symptoms have not changed mmuch recently, but is tripping more. Pt. denies N/T and no changes in B/B. Pt. is hopeful to increase stability and reduce LBP in order to get back to all recreational activities without issues. - Pain LBP Pain Intensity (Out [...] pain at SI region and no L sided pain. NEUROLOGICAL: Pt. has normal sensation to light and sharp touch throughout bilateral LEs. Pt. has 2+ bilateral achilles and patellar DTR bilaterally. ROM: LUMBAR SPINE- flexion nil loss increase NW upon return, ext- mod loss increase [...] Response: No effect Lumbar Standing: Flexion - Symptoms During Testing: Increases Lumbar Standing: Flexion - Symptoms After Testing: No worse Lumbar Standing: Extension - Mechanical Response: No effect Lumbar Standing: Extension - Symptoms During Testing: Increases Lumbar Standing: Extension - Symptoms After Testing: Worse Lumbar Standing: Right Side Glides - Mechanical Response: No effect Lumbar Standing: Right Side Bryce - Symptoms During Testing: No effect Lumbar Standing: Right Side Bryce - Symptoms After Testing: No effect Lumbar Standing: Left Side Bryce - Mechanical Response: No effect Lumbar Standing: Left Side Bryce - Symptoms During Testing: No effect Lumbar Standing: Left Side Bryce - Symptoms After Testing: No effect - Balance Scores Functional Gait Assessment Score: 20 % Disability: 33.3400 - Goals Goal 1:: Pt. to be I with HEP. Goal Time Frame: 4-6 Weeks Goal 2:: Pt. to have increased RLE strength and core strength to reduce stress on lumbar spine with all functional mobility. Goal Time Frame: 4-6 Weeks Goal 3:: Pt. to have a balance neurocom assessment completed. Goal Time Frame: 2 Weeks Goal 4:: Pt. to have increased FGA to 25/30 indicating reduced riskf or future falls. Goal 5:: Pt. to report 0-2/10 pain in R side of lumbar spine with all functional mobility. Goal Time Frame: 4-6 Weeks - Rehabilitation Potential Rehabilitation Potential: Good - Anticipated Interventions Patient/Client Instruction: Educate patient on: Condition, Plan of Care, Risk Factors, Benefits of [...] Neurocom Balance Mas, Passive ROM, Active ROM, Dynamic Lumbar Stabilization For the Purpose of:: To decrease pain, To increase ROM, To improve nutrient delivery to tissue, To increase oxygenation perfusion, To improve muscle performance and motor function, To improve ability to perform ADL's, To increase tolerance to activity/condition/position, To improve performance and independence with ADL's, To improve gait and locomotor functions, To improve health of tissue, To increase flexibility/ROM, To improve endurance, To improve balance, To improve safety with gait, To assume or resume ADL's Thank you for the opportunity to evaluate your patient. For Medicare and Medicare HMO plans, please review the plan of care and approve it. It will need to be FAXED BACK to us at [phone] for Medicare purposes. Please let me know if there are questions or concerns regarding this plan of care. Physician Signature: Date: <Electronically signed by Martín Arteaga DPT> 09/18/170 CC: Rylee Gracia DO CLS Signed For Medicare only, by signing this I certify the plan of care. Physicians Signature Date HAND MIN 3 VIEWS Observed: 08/16/2017 Status: F Source: [place] 12:42 PM [facility] REPOSITORY [facility] [address] [place] [address] Hand Min 3 Views MR#: [id number] Acct: [id number] Name: SUSANNE TORRES Rep #: [id number] : 1950 F 67 From: Bayron Payan MD PCP: Rylee Gracia DO Status: REG CLI Study: Hand Min 3 Views Date of Exam: 08/16/17 Exam# [id number] Ordering Dr: Rylee Gracia DO STUDY: X-RAY - LEFT HAND REASON FOR EXAM: Female, 67 years old. Pain and swelling overlying the fourth and fifth metacarpals following an injury. TECHNIQUE: 3 view(s) of the hand. COMPARISON: None. FINDINGS: Normal radiocarpal articulation. Normal distal radioulnar joint. Normal visualized carpal bones. Normal carpal articulations Normal carpometacarpal articulation of the thumb. Normal second through fifth carpometacarpal joints. Normal metacarpi. Normal metacarpophalangeal joint of the thumb. Normal interphalangeal joint of the thumb. Normal proximal and distal phalanges of the thumb. Normal metacarpophalangeal joints of the second through fifth fingers. Normal proximal and distal interphalangeal joints of the second through fifth fingers. Normal phalanges of the second through fifth fingers. Diffuse soft tissue swelling. RAD/Hand Min 3 Views IMPRESSION: Diffuse soft tissue swelling. Electronically Signed: Bayron Payan MD at 13:43 EST Tel [phone], Service support , CC: Rylee Gracia DO Trouble Locater: Signed ALLERGIES ALLERGIES DATE TYPE / CODE NAME / CODE REACTION SEVERITY SOURCE 10/12/2017 Drug Sulfa Rash Unknown [facility] Allergy/4160 ([facility]ulf[facility] 47837(SNOMED Antibiotics)/ Repository CT) [id number](RX NORM) ENCOUNTERS ENCOUNTERS ADMIT/DISCHARGE ACCOUNT ADMITTING ENCOUNTER LOCATION SOURCE NUMBER CLASS 08/07/2018 [id number] Ambulatory [place] 9 [facility] ing:MRI Repository 08/04/2018 [id number] Ambulatory Building:[facility] [place] Practices Repository 07/23/2018 [id number] Ambulatory [place] 7 [facility] ing:HPRAD Repository 07/08/2018 [id number] Ambulatory [place] 9 [facility] ing:LAB Repository 07/07/2018 [id number] Ambulatory [place] 1 [facility] ing:HPRAD Repository 07/07/2018 [id number] Ambulatory [place] 7 [facility] ing:RAD.FUTUR Repository E 03/19/2018/ [id number] Ambulatory [place] 8 1 [facility] ing:PT Repository 02/13/2018 [id number] Ambulatory [place] 3 [facility] ing:RAD.FUTUR Repository E 02/04/2018 [id number] Ambulatory [place] 8 [facility] ing:US Repository 01/17/2018 [id number] Ambulatory [place] 6 [facility] ing:LAB Repository 01/08/2018 [id number] Ambulatory [place] 6 [facility] ing:LAB Repository 10/12/2017/ [id number] Ambulatory BMSBuilding:B [place] 8 3 [place] Repository 10/11/2017/ [id number] Ambulatory [place] 5 [facility] ing:PT Repository 08/16/2017 [id number] Ambulatory [place] 9 [facility] ing:HPRAD Repository PAYERS PAYERS ENCOUNTER GUARANTOR PAYER SUBSCRIBER SOURCE 08/07/2018 ALEX Phillips Primary SUSANNE Love [place] [id number] E Insurance[place]MED[place]ARE [place]: [facility] PART A BPolicy Number: [id number] [id number] Repository [address]Gxv: (330) Date:2018-08-04 [phone] (HP) 08/07/2018 Secondary SUSANNE C [place] Insurance:HUMANA [place]: [facility] [id number] Hospital Number: Repository [id number] Date:2758-77-24TF[address] [address]NA: 08/07/2018 Tertiary NOT GIVENUNK [place] Insurance:SELF PAY [facility] Number: Effective Repository Date:2018-08-04 08/04/2018 Susanne C Primary Susanne Love OHIP Practices [place]: Insurance:MedicarePoli [place]: Repository E cy Number: [id number] [place] DK44Yucqnjghf E [place], [place] Date:9386-74-07SvgaYolyn, [place] [address]Ffn: (291) Name:[facility] [place] [address] [address]Ufc: [id number], [place] [phone] (HP) (HP)Tel: [phone]: (wp) [phone] 08/04/2018 Secondary Susanne C OHIP Practices Insurance:Humana/[facility] [place]OB: Repository tal [place] [id number] Number: Jacqueline Hawkins [id number] [facility] [place] Date:5925-89-15Lmug 325[address]Gvg: (330) Name:[facility] Emmanuel [phone] (HP) [address] [place] [address]RJ: 08/04/2018 Tertiary Alex OHIP Practices Insurance:Medical [place]OB: Repository [place] [id number] Number: Jacqueline Hawkins [id number] [facility], [place] Date: 1472-30-93Aacc 09018Tnf: (330) Name:[facility] Emmanuel [id number] () [address] [place] [address] [id number]: 08/04/2018 Tertiary Alex OHIP Practices Insurance:Medical [place]: Repository [place] [id number] Number: Jacqueline Hawkins [id number] [place], [place] Date:2011-07-22 [address]Pzi: (330 2217-20-99Rdsr [phone] (HP) Name:[facility] Emmanuel [address] [place] [address] [id number]: 08/04/2018 Tertiary Susanne C OHIP Practices Insurance:Medical [place]OB: Repository [place] [id number] Number: Jacqueline Hawkins [id number] [place], [place] Date: 4438-46-51Pgfc 88878Log: (330) Name:[facility] Emmanuel 3[address] () [address] [place] [address] [id number]: 07/23/2018 ALEX Primary SUSANNE C [place] [id number] E Insurance:MEDICARE [place]: [facility] MISAEL PART A BPolicy Number: [id number], [place] [id number] Repository [address]Ezp: (330) Date:2018-07-23 [phone] () 07/23/2018 Secondary SUSANNE Love [place] Insurance:HUMANA [place]: [facility] [id number] Hospital Number: Repository [id number] Date:1670-51-10EH [address] [place] [address]RQ: 07/23/2018 Tertiary NOT GIVENUNK [place] Insurance:SELF PAY [facility] Number: Effective Repository Date:2018-07-23 07/08/2018 ALEX E Primary SUSANNE [place] [id number] E Insurance:MEDICARE [place]: Community [place] PART A BPolicy Number: [id number], [place] [id number] Repository [address]Mae: 330) Date:2018-07-087024 () 07/08/2018 Secondary SUSANNE Love [place] Insurance:HUMANA [place]: [facility] [id number] Hospital Number: Repository [id number] Date:5220-38-28ER [address] [place] [address]YQ: 07/08/2018 Tertiary NOT GIVENUNK [place] Insurance:SELF PAY [facility] Number: Effective Repository Date:2018-07-08 07/07/2018 ALEX Phillips Primary SUSANNE [place] [id number] E Insurance:MEDICARE [place]: Community [place] PART A BPolicy Number: [id number], [place] [id number] Repository 118[address]Ypu: 330) Date:2018-07-07 [phone] () 07/07/2018 Secondary SUSANNE Love [place] Insurance:HUMANA [place]: [facility] [id number] Hospital Number: Repository [id number] Date:8251-66-70TN [address] [address]XU: 07/07/2018 Tertiary NOT GIVENUNK [place] Insurance:SELF PAY [facility] Number: Effective Repository Date:2018-07-07 07/07/2018 ALEX Phillips Primary SUSANNE [place] [id number] E Insurance:MEDICARE [place]: Community [place] PART A BPolicy Number: [id number], [place] [id number] Repository [address]Spl: (330) Date:2018-07-075856 () 07/07/2018 Secondary SUSANNE [place] Insurance:HUMANA [place]: Community COMMERCIALPolicy [id number] Hospital Number: Repository [id number] Date:7074-05-33RQ[address] [address]UW: 07/07/2018 Tertiary NOT GIVENUNK [place] Insurance:SELF PAY [facility] Number: Effective Repository Date:2018-07-07 03/19/2018 ALEX Phillips Primary SUSANNE [place] [id number] E Insurance:MEDICARE [place]: Community [place] PART A BPolicy Number: [id number], [place] [id number] Repository 380[address]Hzo: (821) Date:2014-01-190330 () 03/19/2018 Secondary SUSANNE Begum Insurance:HUMANA [place]: [facility] Center[facility] [id number] Hospital Number: Repository [id number] Date:4215-80-57NN[address] [address]TZ: 03/19/2018 Tertiary NOT GIVENUNK [place] Insurance:SELF PAY [facility] Hospital Number: Effective Repository Date:2018-02-13 02/13/2018 ALEX Phillips Primary SUSANNE Begum [id number] E Insurance:MEDICARE [place]: Community [place] PART A BPolicy Number: [id number], [place] [id number] Repository [address]Nbn: (330) Date:2018-02-136834 () 02/13/2018 Secondary SUSANNE Love [place] Insurance:HUMANA [place]OB: [facility] COMMERCIALPolicy [id number] Hospital Number: Repository [id number] Date:2379-21-40EP [address] [place] [address]BL: 02/13/2018 Tertiary NOT GIVENUNK [place] Insurance:SELF PAY [facility]: Effective Repository Date:2018-02-13 02/04/2018 ALEX Phillips Primary SUSANNE Love [place] [id number] E Insurance:MEDICARE [place]: Community [place] PART A BPolicy Number: [id number], [place] [id number] Repository [address]Dgj: (357) Date:2018-01-31 [phone] () 02/04/2018 Secondary SUSANNE Love [place] Insurance:HUMANA [place]OB: [facility] [id number] Hospital Number: Repository [id number] Date:4256-30-58VL [address] [place] [address]JC: 02/04/2018 Tertiary NOT GIVENUNK [place] Insurance:SELF PAY [facility] Hospital Number: Effective Repository Date:2018-01-31 01/17/2018 ALEX Phillips Primary SUSANNE Love [place] [id number] E Insurance:MEDICARE [place]: Community [place] PART A BPolicy Number: [id number], [place] [id number] Repository [address]Kfw: (398) Date:2018-01-17 [phone] () 01/17/2018 Secondary SUSANNE Love [place] Insurance:HUMANA [place]: [facility] [id number] Hospital Number: Repository [id number] Date:7579-03-05GL [address] [place] [phone]: 01/17/2018 Tertiary NOT GIVENUNK [place] Insurance:SELF PAY [facility] Number: Effective Repository Date:2018-01-17 01/08/2018 ALEX Phillips Primary SUSANNE Love [place] [id number] E Insurance:MEDICARE [place]: Community [place] PART A BPolicy Number: [id number], [place] [id number] Repository [address]Jqd: (887) Date:2018-01-08 [phone] (HP) 01/08/2018 Secondary SUSANNE Love [place] Insurance:HUMANA [place]: Community COMMERCIALPolicy [id number] Hospital Number: Repository [id number] Date:2270-65-06NU [address] [place] [address]ZS: 01/08/2018 Tertiary NOT GIVENUNK [place] Insurance:SELF PAY [facility] Number: Effective Repository Date:2018-01-08 10/12/2017 ALEX Phillips Primary SUSANNE [place] [id number] E Insurance:MEDICARE [place]: Community [place] PART A BPolicy Number: [id number], [place] [id number] Repository 796[address]Htj: Date:2017-10-12 ~33 0-2 (HP) 10/12/2017 Secondary SUSANNE Love [place] Insurance:HUMANA [place]: Community [facility] [id number] Hospital Number: Repository [id number] Date:2080-84-56IM [address] [place] [address]BT: 10/12/2017 Tertiary NOT GIVENUNK [place] Insurance:SELF PAY [facility] Number: Effective Repository Date:2017-10-12 10/11/2017 ALEX Phillips Primary SUSANNE [place] [id number] E Insurance:MED[place]ARE [place]: Community [place] PART A BPolicy Number: [id number], [place] [id number] Repository [address]24[address]Nwu: Date:2014-01-19 ~33 0-2 (HP) 10/11/2017 Secondary SUSANNE Love [place] Insurance:HUMANA [place]: [facility] [id number] Hospital Number: Repository [id number] Date:9856-46-84EQ [address] [address]YN: 10/11/2017 Tertiary NOT GIVENUNK [place] Insurance:SELF PAY [facility] Number: Effective Repository Date:2017-09-16 08/16/2017 ALEX Phillips Primary SUSANNE Ivan [place] [id number] E Insurance:MEDICARE [place]: Community [place] PART A BPolicy Number: [id number], [place] [id number] Repository [address]Dyw: Date:2017-08-16 ~33 0-2 (HP) 08/16/2017 Secondary SUSANNE Begum Insurance:HUMANA [place]OB: [facility] COMM[facility]CIALPol[facility] [id number] Hospital Number: Repository [id number] Date:5725-72-50RJ[address] [address]QU: 08/16/2017 Tertiary NOT GIVENTRUPTI [place] Insurance:SELF PAY [facility] Number: Effective Repository Date:2017-08-16
== END ==
PROVIDERS: Family Provider Internal Medicine; PCP Internal Medicine; Referring Provider Internal Medicine; Visit Provider Internal Medicine
DX: R05 Cough (principal)
CPT/HCPCS: 71046

== ENCOUNTER → 2018-07-08 07:08 | Outpatient (CLI) | payer MEDICARE, OTHER, SELFPAY ==
[2018-07-08 08:07] LABS: Absolute Lymphocyte Count 1.49 X10^3/ul (0.83-4.51); Absolute Neutrophil Count 2.2 X10^3/uL (2.0-7.7); Basophil# 0.12 X10^3/uL; Basophil% 2.7 % (0-1); Eosinophil# 0.14 X10^3/uL; Eosinophils% 3.2 % (0-5); Hematocrit 43.4 % (37-47); Hemoglobin 13.7 g/dl (12.0-15.0); Lymphocyte # 1.49 X10^3/ul (4.0); Lymphocyte % 34.1 % (19-41); Mean Corp Hgb Conc 31.6 g/gl (32-36); Mean Corpuscular Hgb 29.9 pg (27.0-32.0); Mean Corpuscular Volume 94.8 fL (81-99); Mean Platelet Vol. 9.6 fl (6.2-12.0); Monocyte# 0.37 X10^3/uL; Monocyte% 8.5 % (0-10); Neutrophil # 2.24 X10^3/uL (2.7-7.7); Neutrophil % 51.3 % (47-70); Platelet Count 235 K/mm3 (150-450); RBC Distribution Width CV 13.3 % (11.6-14.6); RBC Distribution Width SD 44.8 fl (35.1-43.9); Red Blood Count 4.58 M/mm3 (4.2-5.4); White Blood Count 4.4 K/mm3 (4.4-11.0)
[2018-07-08 08:13] LABS: POSITIVE COUNT NO; POSITIVE DIFFERENTIAL NO; POSITIVE MORPHOLOGY NO
[2018-07-08 08:14] LABS: Protein, Urine (Random) 12.1 mg/dL (<11.9); Protein:Creat Ratio 79 mg/g CRE (0-200)
[2018-07-08 08:33] LABS: PTHIN 60.9 pg/mL (18.4-80.1); Vitamin D,25 Hydroxy 33.5 ng/mL (29.95-100.01)
[2018-07-08 08:36] LABS: ALB/GLOB Ratio 1.3 RATIO (0.9-2.4); AST(SGOT) 14 U/L (15-37); Alanine Aminotransfer ALT/SGPT 18 U/L (13-56); Albumin, Serum 3.8 g/dL (3.2-5.0); Alkaline Phosphatase 74 U/L (45-117); Anion Gap 9 (5-15); BUN 25 mg/dL (7-18); BUN/Creat Ratio 26.2 RATIO (10-20); Chloride 107 mmol/L (98-107); Creatinine, Serum 0.95 mg/dL (0.55-1.02); EST Glomerular Filtration Rate 62 mL/min (>60); Est Glom Filt Rate - Afr Amer 75 mL/min (>60); Free T3 2.4 pg/mL (2.18-3.98); Glucose 97 mg/dL (74-106); Phosphorus 3.2 mg/dL (2.5-4.9); Potassium 4.5 mmol/L (3.5-5.1); Protein, Total 6.8 g/dL (6.4-8.2); Sodium Level 144 mmol/L (136-145); T4 Free Direct 1.05 ng/dL (0.76-1.46); Thyroid Stim Hormone (TSH) 3.04 uIU/mL (0.358-3.74)
[2018-07-10 12:07] LABS: CHOLESTEROL TOTAL 195 mg/dL (100-199); HDL-C 87 mg/dL (>39); HDL-P TOTAL 48.2 umol/L (>=30.5); SMALL LDL-P 244 nmol/L (<=527); TRIGLYCERIDES 56 mg/dL (0-149)
[2018-07-10 15:21] LABS: LDL-C 97 mg/dL (0-99); LDL-P 960 nmol/L (<1000); LP-IR SCORE ** <25 (<=45)
--- OUTSIDE RECORDS SUMMARY | 2018-10-09 11:53 | XMS RPT_ITS ---
:1950 Author Organization OHIP Support Name Relationship Address Phone R Unavailable Unavailable Unavailable ALEX TORRES Unavailable [address] + [place] [address] R Unavailable Unavailable Unavailable ALEX TORRES Unavailable [address] + [place] [address] R Unavailable Unavailable Unavailable ALEX TORRES Unavailable [address] + [place] [address] R Unavailable Unavailable Unavailable ALEX TORRES Unavailable [address] + [place] [address] R Unavailable Unavailable Unavailable ALEX TORRES Unavailable [address] + [place] [address] R Unavailable Unavailable Unavailable ALEX TORRES Unavailable [address] + [place] [address] R Unavailable Unavailable Unavailable ALEX TORRES Unavailable [address] + [place] [address] R Unavailable Unavailable Unavailable ALEX TORRES Unavailable [address] + [place] [address] R Unavailable Unavailable Unavailable ALEX TORRES Unavailable [address] + [place] [address] R Unavailable Unavailable Unavailable ALEX TORRES Unavailable [address] + [place] [address] R Unavailable Unavailable Unavailable ALEX TORRES Unavailable [address] + [place] [address] R Unavailable Unavailable Unavailable ALEX TORRES Unavailable [address] + [place] [address] R Unavailable Unavailable Unavailable LUBA ALEX Unavailable [address] + [place] [address] Care Team Providers Name Role Phone Nii [...] Attending Unavailable Jovon, Jayaprakash Referring Unavailable Nii, Rylee Primary Care Unavailable Prebish, Lauren RES COUNSELOR-C Attending Unavailable Prebish, Lauren RES COUNSELOR-C Referring Unavailable Nii, Rylee Primary Care Unavailable [...] Care Unavailable Nii, Rylee Primary Care Unavailable lAec Sigala Attending Unavailable Jovon, Alec Referring Unavailable Nii, Rylee Attending Unavailable Nii, Rylee Primary Care Unavailable Nii, Rylee Referring Unavailable Nii, Rylee Attending Unavailable Nii, Rylee Referring Unavailable Nii, Rylee Primary Care Unavailable PROBLEMS PROBLEMS DATE TYPE CONDITION / CODE ATTENDING STATUS SOURCE 07/08/2018 Unknown N18.3 - Chronic Jovon, Active [place] kidney disease, [facility] stage 3 (moderate) / Hospital N18.3(ICD-10) Repository 07/08/2018 Unknown Z13.0 - Encounter Jovon, Active [place] for screening for [facility] diseases of the [facility] blood and Repository blood-forming organs and certain disorders involving the immune mechanism / Z13.0(ICD-10) 07/08/2018 Unknown E55.9 - Vitamin D Jovon, Active [place] deficiency, [facility] unspecified / Hospital E55.9(ICD-10) Repository 07/08/2018 Unknown E78.2 - Mixed Jovon, Active [place] hyperlipidemia / [facility] E78.2(ICD-10) Hospital Repository 07/08/2018 Unknown E04.1 - Nontoxic Jovon, Active [place] single thyroid [facility] nodule / Hospital E04.1(ICD-10) Repository 07/07/2018 Unknown R05 - Cough / Rylee Gracia Active [place] R05(ICD-10) [facility] Hospital Repository 03/20/2018 Unknown M25.511 - Pain in Rylee Gracia Active [place] right shoulder / [facility] M25.511(ICD-10) Hospital Repository 01/17/2018 Unknown K90.0 - Celiac Alec Sigala Active [place] disease / [facility] K90.0(ICD-10) Hospital Repository 10/16/2017 Unknown M54.5 - Low back Rylee Gracia Active [place] pain / M54.5(ICD-10) [facility] Hospital Repository 08/16/2017 Unknown M79.642 - Pain in Rylee Gracia Active [place] left hand / [facility] M79.642(ICD-10) Hospital Repository PROCEDURES PROCEDURES No Procedure Records FoundRESULTS RESULTS ABDOMEN SINGLE VIEW Observed: 08/07/2018 Status: F Source: [place] 12:19 PM [facility] HOSPITAL REPOSITORY [facility] Imaging Services [address] [place] [address] Abdomen Single View MR#: [id number] Acct: [id number] Name: SUSANNE TORRES Rep #: [id number] : 1950 F 68 From: Yunior Arteaga PCP: Rylee Gracia DO Status: REG CLI Study: Abdomen Single View Date of Exam: 08/07/18 Exam# [id number] Ordering Dr: Gretta Luis MD STUDY: X-RAY [...] support , CC: Gretta Luis MD; Rylee Garcia DO Data Designer: Signed BRAIN W/WO CONTRAST Observed: 08/07/2018 Status: F Source: [place] 6:37 AM [facility] REPOSITORY [facility] Imaging Services [address] [place] [address] Brain W/WO Contrast MR#: [id number] Acct: [id number] Name: SUSANNE TORRES Rep #: [id number] : 1950 F 68 From: Radha Aguirre MD PCP: Rylee Gracia DO Status: REG CLI Study: Brain W/WO Contrast Date of Exam: 08/07/18 Exam# [id number] Ordering Dr: Rylee Gracia DO STUDY: MRI [...] Service support , CC: Rylee Gracia DO Data Designer: Signed KNEE 4 OR MORE Observed: 07/23/2018 Status: F Source: [place] VIEWS 9:29 AM [facility] REPOSITORY [facility] Imaging Services [address] [place] [address] Knee 4 or More Views MR#: [id number] Acct: [id number] Name: SUSANNE TORRES Rep #: [id number] : 1950 F 68 From: Hector Cervantes MD PCP: Rylee Gracia DO Status: REG CLI Study: Knee 4 or More Views Date of Exam: 07/23/18 Exam# [id number] Ordering Dr: Lauren Topete STUDY: X-RAY - [...] , Service support , CC: Rylee Topete Data Designer: Signed CBC W/DIFF, AUTOMATED Collected: 07/08/2018 Status: F Source: [place] 7:13 AM [facility] REPOSITORY Order Comment: DR. GRACIA WANTS THE [...] Lymph 1.49 Performed By: #### L100.0100 #### [facility] [address] [place], [place], [address] PROTEIN+CREATININE Collected: Status: F Source: [facility],URINE 07/08/2018 7:13 AM [facility] REPOSITORY Order Comment: DR. GRACIA WANTS THE [...] 79 RATIO Performed By: #### L501.0900 #### [facility] [address] [facility] [place], [address] VITAMIN D,25 HYDROXY Collected: 07/08/2018 Status: F Source: [place] 7:13 AM [facility] REPOSITORY Order Comment: DR. GRACIA WANTS [facility] CMP VITD TSH T3F CBCD T4F [...] (>250 nmol/L) Performed By: #### L506.1000 #### [facility] [address] [place], [address] PTHIN Collected: 07/08/2018 Status: F Source: [place] 7:13 AM [facility] REPOSITORY Order Comment: DR. GRACIA WANTS [facility] CMP VITD TSH T3F CBCD T4F DR. SIGALA WNATS THE VITD PROCRE CBCD PTH PHOS CMP TYPE CODE TESTS RESULT OUT OF RANGE REFERENCE UNITS LAB L509.1000 18.4-80.1 pg/mL Normal PTHIN 60.9 Performed By: #### L509.1000 #### [facility] [address] [place], [address] COMPREHENSIVE METABOLIC Collected: 07/08/2018 Status: F Source: [place] PROFIL 7:13 AM [facility] REPOSITORY Order Comment: DR. GRACIA WANTS [facility] CMP VITD TSH T3F CBCD T4F [...] GAP 9 Performed By: #### L500.4050, L501.2300, L501.78652, L501.9520, L506.0400 #### [facility] [address] [place], [address] PHOSPHORUS Collected: 07/08/2018 Status: F Source: [place] 7:13 AM [facility] REPOSITORY Order Comment: DR. GRACIA WANTS [facility] CMP VITD TSH T3F CBCD T4F DR. JOVON SANDOVAL THE VITD PROCRE CBCD PTH PHOS CMP TYPE CODE TESTS RESULT OUT OF RANGE REFERENCE UNITS LAB L501.2300 2.5-4.9 mg/dL Normal PHOS 3.2 Performed By: #### L500.4050, L501.2300, L501.41234, L501.9520, L506.0400 #### [facility] [address] [place], [address] FREE T3 Collected: 07/08/2018 Status: F Source: [place] 7:13 AM [facility] REPOSITORY Order Comment: DR. GRACIA WANTS [facility] CMP VITD TSH T3F CBCD T4F DR. JOVON SANDOVAL THE VITD PROCRE CBCD PTH PHOS CMP TYPE CODE TESTS RESULT OUT OF RANGE REFERENCE UNITS LAB L501.00623 2.18-3.98 pg/mL Normal FREE T3 2.4 Performed By: #### L500.4050, L501.2300, L501.53263, L501.9520, L506.0400 #### [facility] [address] [place], [address] THYROID STIM HORMONE Collected: 07/08/2018 Status: F Source: [place] (TSH) 7:13 AM [facility] REPOSITORY Order Comment: DR. GRACIA WANTS [facility] CMP VITD TSH T3F CBCD T4F DR. JOVON SANDOVAL THE VITD PROCRE CBCD PTH PHOS CMP TYPE CODE TESTS RESULT OUT OF RANGE REFERENCE UNITS LAB L501.9520 0.358-3.74 uIU/mL Normal TSH 3.04 Performed By: #### L500.4050, L501.2300, L501.92336, L501.9520, L506.0400 #### [facility] [address] [place], [address] T4 FREE DIRECT Collected: 07/08/2018 Status: F Source: [place] 7:13 AM [facility] REPOSITORY Order Comment: DR. GRACIA WANTS THE NMP CMP VITD TSH T3F CBCD T4F DR. JOVON SANDOVAL THE VITD PROCRE CBCD PTH PHOS CMP TYPE CODE TESTS RESULT OUT OF RANGE REFERENCE UNITS LAB L506.0400 0.76-1.46 ng/dL Normal T4 FREE 1.05 DIRECT Performed By: #### L500.4050, L501.2300, L501.15403, L501.9520, L506.0400 #### [facility] [place], [address] NMR LIPOPROFILE Collected: 07/08/2018 Status: F Source: [place] 7:13 AM [facility] REPOSITORY Order Comment: DR. GRACIA WANTS [facility] CMP VITD TSH T3F CBCD T4F [...] developed and their performance characteristics determined by [facility]. These assays have not been cleared by [...] Food and Drug Administration. Performed at: - [facility] [id number] Farm Butcher: Juwan Hendrix MD, Phone: [phone] Performed By: #### L3500.0000 #### [facility] (refer to report for specific site) refer to report for address and phone number CHEST PA AND LATERAL Observed: 07/07/2018 Status: F Source: [place] 11:42 AM [facility] REPOSITORY [facility] Imaging Services [address] [place] [address] Chest PA and Lateral MR#: [id number] Acct: [id number] Name: SUSANNE TORRES Rep #: [id number] : 1950 F 68 From: Hector Oliveira MD PCP: Rylee Gracia DO Status: REG CLI Study: Chest PA and Lateral Date of Exam: 07/07/18 Exam# [id number] Ordering Dr: Rylee Gracia DO STUDY: X-RAY [...] Service support , CC: Rylee Gracia DO Data Designer: Signed PT D/C SUMMARY (1) Observed: 03/20/2018 Status: F Source: [place] 9:32 AM [facility] REPOSITORY [facility] [address] [place] [address]. [address] [place] [address] Fax REHABILITATION SERVICES DISCHARGE SUMMARY MR#: [id number] Acct: [id number] Name: SUSANNE TORRES Rep #: [id number] : 1950 68 From: Mitch Leonard DPT, [...] will also do machines as instructed at [facility]. Still avoid pulling weeds and heavy lifting [...] please feel free to call me at [phone]. Thank you for the referral of this patient. Sincerely, Mitch Leonard, LILIAT, OC <Electronically signed by iMtch Leonard DPT, OCS, CSCS> 03/20/18 0932 CC: Rylee Gracia DO EB Signed RE-EVALUATION - PT (1) Observed: 03/04/2018 Status: F Source: [place] 9:39 AM [facility] REPOSITORY [facility] [address] [place] [address]. [address] [place] [address] Fax REEVALUATION / MEDICARE RECERTIFICATION PHYSICAL THERAPY MR#: [id number] Acct: [id number] Name: SUSANNE TORRES Rep #: [id number] : 1950 68 From: Mitch Leonard DPT, [...] the blue while I was sitting at sabianism my shldr just starting hurting worse. Reports the pain to be located in the front and under the shldr joint. Objective/Function: Review of postural maintainence so as to not exacerbate symptoms while sitting at [employer]. Pt states, I guess I wasn't really [...] do not hesitate to contact me at [phone] by phone or if you have questions [...] F Source: [place] Castro PT 7:22 AM [facility] REPOSITORY [facility] [address] [place] [address]. [address] [place] [address] Fax REHABILITATION SERVICES INITIAL EVALUATION MR#: [id number] Acct: [id number] Name: SUSANNE TORRES Rep #: [id number] : 1950 68 From: Mitch Leonard DPT, [...] to be FAXED BACK to us at [phone] for Medicare purposes. Please let me know if there are questions or concerns regarding this plan of care. Physician Signature: Date: <Electronically signed by Mitch Leonard DPT, OCS, CSCS> 02/19/18 0722 CC: Rylee Gracia DO EBG Signed For Medicare only, by signing this I certify the plan of care. Physicians Signature Date SHOULDER MIN 2 VIEWS Observed: 02/13/2018 Status: F Source: [place] 12:23 PM [facility] REPOSITORY [facility] Imaging Services [address] [place] [address] Shoulder min 2 Views MR#: [id number] Acct: [id number] Name: SUSANNE TORRES Rep #: [id number] : 1950 F 68 From: Hector Oliveira MD PCP: Rylee Gracia DO Status: REG CLI Study: Shoulder min 2 Views Date of Exam: 02/13/18 Exam# [id number] Ordering Dr: Rylee Gracia DO STUDY: X-RAY [...] Service support , CC: Rylee Gracia DO Data Designer: Signed MISCELLANEOUS LAB Collected: 02/04/2018 Status: F Source: [place] PROCEDURE 11:08 AM [facility] REPOSITORY Order Comment: Comments: [id number] TRANGLUTAMINASE SER FZ Test(s) Ordered: [id number] TRANGLUTAMINASE SER FZ TYPE CODE TESTS RESULT OUT OF RANGE REFERENCE UNITS LAB L801.1541 Normal [facility] TEST Result Comment: TEST RESULT LIMITS [...] the Transglutaminase IgM assay was validated by [facility]. The [place] FDA has not approved or cleared this test. The results of this assay can be used for clinical diagnosis without FDA approval. [facility]. is a CLIA certified, CAP accredited laboratory for performing high complexity assays such as this one. Tragl IgA < 1.2 U/mL 0.0 - 4.0 Reference Range Negative < 4.0 U/mL Weak Positive 4.0 - 10.0 U/mL Positive > 10.0 U/mL Comment TESTING PERFORMED AT [facility]. ORIGINAL REPORT ON FILE IN LAB CONTAINS ADDITIONAL TEST SITE INFORMATION. Performed By: #### L801.1541 #### [facility] [address] [place], [address] THYROID Observed: 02/04/2018 Status: F Source: [place] 7:54 AM [facility] REPOSITORY [facility] Imaging Services [address] [place] [address] Thyroid MR#: [id number] Acct: [id number] Name: SUSANNE TORRES Rep #: [id number] : 1950 F 68 From: Bayron Payan MD PCP: Rylee Gracia DO Status: REG CLI Study: Thyroid Date of Exam: 02/04/18 Exam# [id number] Ordering Dr: Rylee Gracia DO STUDY: THYROID [...] Bayron Payan MD at 10:35 EDT Tel [phone], Service support , CC: Rylee Gracia DO Data Designer: Signed CBC-COMPLETE BLOOD CNT Collected: 01/17/2018 Status: F Source: [place] NO DIFF 10:30 AM [facility] REPOSITORY TYPE CODE TESTS RESULT OUT OF [...] MPV 9.8 Performed By: #### L100.0500 #### [facility] [address] [place], [address] THYROGLOBULIN ANTIBODY Collected: 01/17/2018 Status: F Source: [place] 10:30 AM [facility] REPOSITORY TYPE CODE TESTS RESULT OUT OF RANGE REFERENCE UNITS LAB L3300.7027 0.0-0.9 IU/mL High TG AB 1.1 Result Comment: Thyroglobulin Antibody measured by [employer] Performed at: - [facility] [address] [id number] Farm Butcher: Joaquim Barrett PhD, Phone: [phone] Performed By: #### L3300.7027, L3410.2710 #### [facility] (refer to report for specific site) refer to report for address and phone number ENDOMYSIAL ANTIBODY Collected: 01/17/2018 Status: F Source: [place] IGA 10:30 AM [facility] REPOSITORY TYPE CODE TESTS RESULT OUT OF REFERENCE UNITS RANGE LAB L3410.2710 Negative Normal ENDOMYSIAL IGA Negative Performed By: #### L3300.7027, L3410.2710 #### [facility] (refer to report for specific site) refer to report for address and phone number CBC-COMPLETE BLOOD CNT Collected: 01/08/2018 Status: F Source: [place] NO DIFF 7:23 AM [facility] REPOSITORY TYPE CODE TESTS RESULT OUT OF [...] MPV 9.5 Performed By: #### L100.0500 #### [facility] [address] [place], [place], [address] MICROALB:CREAT Collected: 01/08/2018 Status: F Source: [place] RATIO,RANDOM UR 7:23 AM [facility] REPOSITORY TYPE CODE TESTS RESULT OUT OF RANGE REFERENCE UNITS LAB L501.1200 NO RANGE EST. mg/dL Normal UR CREAT 95.70 LAB L502.0500 NO RANGE EST. mg/L Normal 5.3 MICROALBUMIN ,UR LAB L502.0600 <30 mg/g CRE mg/g CRE Normal 5.6 MALB:CREAT Performed By: #### L502.0250 #### [facility] [address] [place], [place], [address] VITAMIN D,25 HYDROXY Collected: 01/08/2018 Status: F Source: [place] 7:23 AM [facility] REPOSITORY TYPE CODE TESTS RESULT OUT OF RANGE REFERENCE UNITS LAB L506.1000 29.95-100.01 ng/mL Normal Vitamin D 34.7 25-OH Result Comment: Vitamin D 25(OH) Status Range Deficiency <20 ng/mL (50nmol/L) Insuffciency 20 - 30 ng/mL (50 - 75 nmol/L) Sufficiency 30 - 100 ng/mL (75 - 250 nmol/L) Toxicity >100 ng/mL (>250 nmol/L) Performed By: #### L506.1000 #### [facility] [address] [place], [place], [address] PTHIN Collected: 01/08/2018 Status: F Source: [place] 7:23 AM [facility] REPOSITORY TYPE CODE TESTS RESULT OUT OF RANGE REFERENCE UNITS LAB L509.1000 18.4-80.1 pg/mL Normal PTHIN 78.4 Performed By: #### L509.1000 #### [facility] [address] [place], [place], [address] RENAL PROFILE Collected: 01/08/2018 Status: F Source: [place] 7:23 AM [facility] REPOSITORY TYPE CODE TESTS RESULT OUT OF [...] 28.0 Performed By: #### L500.3600, L501.5200 #### [facility] [address] [place], [place], [address] MAGNESIUM Collected: 01/08/2018 Status: F Source: [place] 7:23 AM [facility] REPOSITORY TYPE CODE TESTS RESULT OUT OF RANGE REFERENCE UNITS LAB L501.5200 1.6-2.6 mg/dL Normal MG 2.3 Performed By: #### L500.3600, L501.5200 #### [facility] [address] [place], [address] PT D/C SUMMARY (1) Observed: 10/16/2017 Status: F Source: [place] 9:58 AM [facility] REPOSITORY [facility] [address] [place] [address] Fax REHABILITATION SERVICES DISCHARGE SUMMARY MR#: [id number] Acct: [id number] Name: SUSANNE TORRES Rep #: [id number] : 1950 67 From: Martín Arteaga DPT Referring Dr.: Rylee Gracia DO Status: REG [...] please feel free to call me at [phone]. Thank you for the referral of this patient. Sincerely, Martín Arteaga <Electronically signed by Martín Arteaga DPT> 10/16/17 0958 CC: Rylee Gracia DO CLS Signed URGENT CARE VISIT Observed: 10/12/2017 Status: F Source: [place] REPORT 10:20 AM [facility] REPOSITORY [facility] [address] [place] [address] OFFICE VISIT Date of Service: 10/12/17 MR#: [id number] Acct: [id number] Name: LUBASUSANNE C Rep #: [id number] : 1950 Provider: Lillian [place] Age/Sex: 67/F Location: [facility] Status: Signed Intake Vital Signs10/12/17 Height 5 [...] General: cooperative, no acute distress, well developed [facility] Head: normal to inspection, atraumatic Ears: [...] any 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 Medications New: Coding Level of Care Code Off vis,est,level 4 Diagnoses Cellulitis of other specified site L03.818 Site of cellulitis: other site 10/12/17 1020 <Electronically signed by Lillian FLORES> Date Lillian FLORES Cosigner Signature: Date (if applicable) CC: PT COMMUNICATION Observed: 09/24/2017 Status: F Source: [place] 9:26 AM [facility] REPOSITORY [facility] [address] [address] [facility] [place] [address] Fax REHABILITATION SERVICES PROGRESS NOTE MR#: [id number] Acct: [id number] Name: SUSANNE TORRES Rep #: [id number] : 1950 67 From: Tatiana JOHNSTON Referring Dr.: Rylee Gracia DO Status: REG [...] F Source: [place] - PT 7:10 PM [facility] REPOSITORY [facility] [address] [place] [address]. [address] [place] [address] Fax REHABILITATION SERVICES INITIAL EVALUATION MR#: [id number] Acct: [id number] Name: SUSANNE TORRES Rep #: [id number] : 1950 67 From: Martín Arteaga DPT [...] Response: No effect Lumbar Standing: Right Side [place] - Symptoms During Testing: No effect Lumbar Standing: Right Side [place] - Symptoms After Testing: No effect Lumbar Standing: Left Side [place] - Mechanical Response: No effect Lumbar Standing: Left Side [place] - Symptoms During Testing: No effect Lumbar Standing: Left Side [place] - Symptoms After Testing: No effect - [...] to be FAXED BACK to us at [phone] for Medicare purposes. Please let me know if there are questions or concerns regarding this plan of care. Physician Signature: Date: <Electronically signed by Martín Arteaga DPT> 09/18/170 CC: Rylee Gracia DO CLS Signed For Medicare only, by signing this I certify the plan of care. Physicians Signature Date HAND MIN 3 VIEWS Observed: 08/16/2017 Status: F Source: [place] 12:42 PM [facility] REPOSITORY [facility] Imaging Services [address] [place] [address] Hand Min 3 Views MR#: [id number] Acct: [id number] Name: SUSANNE TORRES Rep #: [id number] : 1950 F 67 From: Bayron Payan MD PCP: Rylee Gracia DO Status: REG CLI Study: Hand Min 3 Views Date of Exam: 08/16/17 Exam# [id number] Ordering Dr: Rylee Gracia DO STUDY: X-RAY [...] Bayron Payan MD at 13:43 EST Tel [phone], Service support , CC: Rylee Gracia DO Data Designer: Signed ALLERGIES ALLERGIES DATE TYPE / CODE NAME / CODE REACTION SEVERITY SOURCE 10/12/2017 Drug Sulfa Rash Unknown [facility] Allergy/4160 (Sulfonamide [facility] 39452(SNOMED Antibiotics)/ Repository CT) [id number](RX NORM) ENCOUNTERS ENCOUNTERS ADMIT/DISCHARGE ACCOUNT ADMITTING ENCOUNTER LOCATION SOURCE NUMBER CLASS 08/07/2018 [id number] Ambulatory [place] 9 [facility] ing:MRI Repository 08/04/2018 [id number] Ambulatory Building:[facility] [place] Practices Repository 07/23/2018 [id number] Ambulatory [place] 7 [facility] ing:HPRAD Repository 07/08/2018 [id number] Ambulatory [place] 9 [facility] ing:LAB Repository 07/07/2018 [id number] Ambulatory [place] 1 [facility] ing:HPRAD Repository 07/07/2018 [id number] Ambulatory [place] 7 [facility] ing:RAD.FUTUR Repository E 03/19/2018/ [id number] Ambulatory [place] 8 1 [facility] ing:PT Repository 02/13/2018 [id number] Ambulatory [place] 3 [facility] ing:RAD.FUTUR Repository E 02/04/2018 [id number] Ambulatory [place] 8 [facility] ing:US Repository 01/17/2018 [id number] Ambulatory [place] 6 [facility] ing:LAB Repository 01/08/2018 [id number] Ambulatory [place] 6 [facility] ing:LAB Repository 10/12/2017/ [id number] Ambulatory BMSBuilding:B [place] 3 [place] Repository 10/11/2017/ [id number] Ambulatory [place] 5 [facility] ing:PT Repository 08/16/2017 [id number] Ambulatory [place] 9 [facility] ing:HPRAD Repository PAYERS PAYERS ENCOUNTER GUARANTOR PAYER SUBSCRIBER SOURCE 08/07/2018 ALEX Phillips Primary SUSANNE Love [place] [id number] Insurance:MEDICARE [place]: [facility] PART A BPolicy Number: [id number] Repository [address]Exo: (330) Date:2018-08-04 [phone] (HP) 08/07/2018 Secondary SUSANNE C [place] Insurance:HUMANA [place]: [facility] [id number] Hospital Number: Repository [id number] Date:[id number] [id number]: 08/07/2018 Tertiary NOT GIVENUNK [place] Insurance:SELF PAY [facility] Number: Effective Repository Date:2018-08-04 08/04/2018 Susanne C Primary Susanne Love OHIP Practices [place]: Insurance:MedicarePoli [place]: Repository E cy Number: [id number] [place] FC[address]Plzneqqit E [place], [place] Date:8521-29-44XdzqJohn[place], [place] [address]Srx: (017) Name:[facility] [address] [address]Jmy: 266[address]Nqdnhdzg, [place] [phone] (HP) (HP)Tel: [phone]: (wp) [phone] 08/04/2018 Secondary Susanne C OHIP Practices Insurance:[facility] [place]DOB: Repository tal [place] [id number] Number: Jacqueline Hawkins [id number] [facility] [place] Date:7165-57-36Cwwt 23126Gfm: (330) Name:[facility] Emmanuel [phone] (HP) 125[address]Kvqvg[address] [place] [address] 85163OZ: 08/04/2018 Tertiary Alex OHIP Practices Insurance:Medical [place]DOB: Repository [employer] [id number] Number: Jacqueline Hawkins [id number] [facility], [place] Date: 3806-64-72Kvog 63683Qqp: (330) Name:[facility] Emmanuel [id number] () [address] [place] [address] [id number]: 08/04/2018 Tertiary Alex OHIP Practices Insurance:Medical [place]: Repository Fe [employer] [id number] Number: Jacqueline Hawkins [id number] [place], [place] Date:2011-07-22 78990Ztb: (330 [id number] [phone] (HP) Name:[facility] Emmanuel [address] [place] [address] [id number]: 08/04/2018 Tertiary Susanne C OHIP Practices Insurance:Medical [place]: Repository [employer] [id number] Number: Jacqueline Hawkins [id number] St[place], [place] Date: 6321-74-74Xkux 31153Hju: (330) Name:[facility] Emmanuel [address] () [address] [place] [address] [id number]: 07/23/2018 ALEX Primary SUSANNE C [place] [address] E Insurance:MEDICARE [place]: [facility] MISAEL PART A BPolicy Number: [id number], [place] [id number] Repository [address]Fsb: (330) Date:2018-07-23 [phone] () 07/23/2018 Secondary SUSANNE Love Standard Insurance:HUMANA [place]: [facility] [id number] Hospital Number: Repository [id number] Date:7267-38-14CY [address] [place] [address]UN: 07/23/2018 Tertiary NOT GIVENUNK Standard Insurance:SELF PAY [facility] Number: Effective Repository Date:2018-07-23 07/08/2018 ALEX E Primary SUSANNE [place] [id number] E Insurance:MEDICARE [place]: Community MISAEL PART A BPolicy Number: [id number], [place] [id number] Repository [address]Vmt: 330) Date:2018-07-086900 () 07/08/2018 Secondary SUSANNE Love Standard Insurance:HUMANA [place]: [facility] [id number] Hospital Number: Repository [id number] Date:2165-99-68HZ [address] [place] [address]ZO: 07/08/2018 Tertiary NOT GIVENUNK Standard Insurance:SELF PAY [facility] Number: Effective Repository Date:2018-07-08 07/07/2018 ALEX Phillips Primary SUSANNE [place] [id number] E Insurance:MEDICARE [place]: Community MISAEL PART A BPolicy Number: [id number], [place] [id number] Repository [address]Vcs: 330) Date:2018-07-07 [phone] () 07/07/2018 Secondary SUSANNE Love Standard Insurance:HUMANA [place]: [facility] [id number] Hospital Number: Repository [id number] Date:7374-38-56DB [address] [address]XO: 07/07/2018 Tertiary NOT GIVENUNK Kel Insurance:SELF PAY [facility] Number: Effective Repository Date:2018-07-07 07/07/2018 ALEX Phillips Primary SUSANNE Begum [id number] E Insurance:MEDICARE [place]: Community MISAEL PART A BPolicy Number: [id number], [place] [id number] Repository [address]Igb: (330) Date:2018-07-076934 () 07/07/2018 Secondary SUSANNE Begum Insurance:HUMANA [place]: Community COMMERCIALPolicy [id number] Hospital Number: Repository [id number] Date:2430-26-03XH[address] [address]LM: 07/07/2018 Tertiary NOT GIVENUNK Kel Insurance:SELF PAY [facility] Number: Effective Repository Date:2018-07-07 03/19/2018 ALEX Phillips Primary SUSANNE [place]oster [id number] E Insurance:MEDICARE [place]: Community MISAEL PART A BPolicy Number: [id number], [place] [id number] Repository [address]Cpm: (761) Date:2014-01-198180 () 03/19/2018 Secondary SUSANNE Begum Insurance:HUMANA [place]: [facility] [id number] Hospital Number: Repository [id number] Date:7818-39-37VB[address] [address]PY: 03/19/2018 Tertiary NOT GIVENUNK Kel Insurance:SELF PAY [facility] Number: Effective Repository Date:2018-02-13 02/13/2018 ALEX Phillips Primary SUSANNE Begum [id number] E Insurance:MEDICARE [place]: Community MISAEL PART A BPolicy Number: [id number], [place] [id number] Repository [address]Wqq: (330) Date:2018-02-139376 () 02/13/2018 Secondary SUSANNE Love Kel Insurance:HUMANA [place]OB: [facility] COMMERCIALPolicy [id number] Hospital Number: Repository [id number] Date:7919-28-76FG [address] [place] [phone]: 02/13/2018 Tertiary NOT GIVENUNK Standard Insurance:SELF PAY [facility] Number: Effective Repository Date:2018-02-13 02/04/2018 ALEX Phillips Primary SUSANNE Love Kel [id number] E Insurance:MEDICARE [place]: Community MISAEL PART A BPolicy Number: [id number], [place] [id number] Repository [address]Kdg: (855) Date:2018-01-31 [phone] () 02/04/2018 Secondary SUSANNE Love Kel Insurance:HUMANA [place]OB: [facility] [id number] Hospital Number: Repository [id number] Date:3988-12-68XH [address] [place] [address]LM: 02/04/2018 Tertiary NOT GIVENUNK Standard Insurance:SELF PAY [facility] Number: Effective Repository Date:2018-01-31 01/17/2018 ALEX Phillips Primary SUSANNE Love Standard [id number] E Insurance:MEDICARE [place]: Community MISAEL PART A BPolicy Number: [id number], [place] [id number] Repository [address]Fro: (747) Date:2018-01-17 [phone] () 01/17/2018 Secondary SUSANNE Love Kel Insurance:HUMANA [place]: [facility] [id number] Hospital Number: Repository [id number] Date:2549-10-23YW [address] [place] [address]EH: 01/17/2018 Tertiary NOT GIVENUNK Kel Insurance:SELF PAY [facility] Hospital Number: Effective Repository Date:2018-01-17 01/08/2018 ALEX Phillips Primary SUSANNE Love Standard [id number] E Insurance:MEDICARE [place]: Community MISAEL PART A BPolicy Number: [id number], [place] [id number] Repository [address]Lry: (748) Date:2018-01-08 [phone] (HP) 01/08/2018 Secondary SUSANNE Love Kel Insurance:HUMANA [place]: Community COMMERCIALPolicy [id number] Hospital Number: Repository [id number] Date:5293-95-66ZH [address] [place] [address]FF: 01/08/2018 Tertiary NOT GIVENUNK Standard Insurance:SELF PAY [facility] Hospital Number: Effective Repository Date:2018-01-08 10/12/2017 ALEX Phillips Primary SUSANNE Sonoster [id number] E Insurance:MEDICARE [place]: Community MISAEL PART A BPolicy Number: [id number], [place] [id number] Repository [address]Odc: Date:2017-10-12 ~33 0-2 (HP) 10/12/2017 Secondary SUSANNE Love Kel Insurance:HUMANA [place]: Community [facility] [id number] Hospital Number: Repository [id number] Date:3999-16-34WM [address] [place] [address]HI: 10/12/2017 Tertiary NOT GIVENUNK Standard Insurance:SELF PAY [facility] Number: Effective Repository Date:2017-10-12 10/11/2017 ALEX Phillips Primary SUSANNE Sonoster [id number] E Insurance:MEDICARE [place]: Community MISAEL PART A BPolicy Number: [id number], [place] [id number] Repository [address]Psn: Date:2014-01-19 ~33 0-2 (HP) 10/11/2017 Secondary SUSANNE Love Standard Insurance:HUMANA [place]: [facility] [id number] Hospital Number: Repository [id number] Date:8985-86-83WP [address] [address]RF: 10/11/2017 Tertiary NOT GIVENUNK Standard Insurance:SELF PAY [facility] Number: Effective Repository Date:2017-09-16 08/16/2017 ALEX Phillips Primary SUSANNE Ivan Kel [id number] E Insurance:MEDICARE [place]: Community MISAEL PART A BPolicy Number: [id number], [place] [id number] Repository [address]Lrh: Date:2017-08-16 ~33 0-2 (HP) 08/16/2017 Secondary SUSANNE Begum Insurance:HUMANA [place]OB: [facility] [id number] Hospital Number: Repository [id number] Date:6137-19-00DF[address] [address]SM: 08/16/2017 Tertiary NOT GIVENTRUPTI Standard Insurance:SELF PAY [facility] Number: Effective Repository Date:2017-08-16
== END ==
PROVIDERS: Family Provider Internal Medicine; PCP Internal Medicine; Referring Provider Internal Medicine Nephrology; Visit Provider Internal Medicine Nephrology
DX: E11.22 Type 2 diabetes mellitus with diabetic chronic kidney disease (principal); N18.3 Chronic kidney disease, stage 3 (moderate); E04.1 Nontoxic single thyroid nodule; E78.2 Mixed hyperlipidemia; E55.9 Vitamin D deficiency, unspecified; Z13.0 Encounter for screening for diseases of the blood and blood-forming organs and certain disorders involving the immune mechanism
CPT/HCPCS: 36415; 80053; 80061; 82306; 82570; 83704; 83970; 84100; 84156; 84439; 84443; 84481; 85025

== ENCOUNTER → 2018-07-23 09:24 | Outpatient (CLI) | payer MEDICARE, OTHER, SELFPAY ==
--- NOTE | 2018-07-23 09:29 | RAD_ITS ---
STUDY: X-RAY - LEFT KNEE REASON FOR EXAM: Female, 68 years old. Extremity/joint pain. TECHNIQUE: 4 view(s) of the knee, 2 of which are labeled as weightbearing. COMPARISON: None. FINDINGS: There is periarticular spurring of the femoral condyles. There is periarticular spurring and mild subcortical sclerosis of the medial tibial plateau. Normal visualized proximal fibula. There is periarticular spurring at the base of the patella. There is no demonstrated destructive osseous lesion or acute fracture. There is degenerative arthrosis of the medial femorotibial compartment with severe joint space narrowing. Normal lateral femorotibial joint space height, but there is faint chondrocalcinosis. Normal patellofemoral articulation. Normal proximal tibiofibular articulation. There is a soft tissue prominence in the suprapatellar region suggesting a very small volume joint effusion. The soft tissue structures are unremarkable. RAD/Knee 4 or More Views IMPRESSION: Degenerative arthrosis of the left knee, most significant in the medial femorotibial compartment. Electronically Signed: Luis Eduardo Cervantes MD at 9:24 EST , Service support ,
== END ==
PROVIDERS: Family Provider Internal Medicine; PCP Internal Medicine; Referring Provider Nurse Practitioner Family; Visit Provider Nurse Practitioner Family
DX: M25.562 Pain in left knee (principal)
CPT/HCPCS: 73564

== ENCOUNTER → 2018-08-07 06:22 | Outpatient (CLI) | payer MEDICARE, OTHER, SELFPAY ==
--- NOTE | 2018-08-07 06:37 | MRI_ITS ---
STUDY: MRI BRAIN WITH AND WITHOUT CONTRAST REASON FOR EXAM: Female, 68 years old. abnormal gait, balance issues x 18 mos, frequent falls TECHNIQUE: Standardized multiplanar fat and water weighted pulse sequences were obtained. 7 ml of Gadavist contrast material was administered intravenously for the contrast portion of the examination. COMPARISON: MRI of the brain with and without contrast December 04, 2008, CT exam November 22, 2008. FINDINGS: Normal size of the ventricles and extra-axial spaces for the patient's age. Normal white matter tracts of the supratentorial brain. There is no evidence for recent intracranial ischemia or other cause of cytotoxic edema on diffusion weighted imaging (DWI). Normal T2* images of the brain without demonstrated susceptibility artifact. There is no demonstrated hemosiderin stain. Normal bilateral basal ganglia. Normal thalami. There is no extra-axial fluid accumulation. Normal flow voids within the major intracranial circulation suggesting patency by spin echo criteria. Normal venous enhancement. There is no enhancing intra-axial or extra-axial abnormality. Normal sella turcica, pituitary gland, infundibular stalk, optic chiasm and hypothalamus. Normal tectal plate and pineal gland. Normal midbrain, demarcus and medulla. Normal cerebellum. Mildly prominent spaces seen in association with the folds of the right cerebellar hemisphere inferiorly, this was previously seen on CT exam and MRI and appears benign. Normal basal cisterns. Normal bilateral temporal bones. Normal bilateral internal auditory canals. No demonstrated orbital abnormality, within the constraints of a routine brain study. Normal visualized paranasal sinuses. Normal calvarium and skull base. Normal visualized soft tissue structures. Normal visualized upper cervical spine. MRI/Brain W/WO Contrast IMPRESSION: Stable appearance of the brain. No acute abnormality. Accentuated subarachnoid space in the fovea of the inferior right cerebellar hemisphere which has been present previously. No evidence of acute infarct. No abnormal enhancing mass. Electronically Signed: Radha Aguirre MD at 15:23 EST , Service support ,
--- NOTE | 2018-08-07 12:19 | RAD_ITS ---
STUDY: X-RAY - ABDOMEN/PELVIS REASON FOR EXAM: Female, 68 years old. Kidney stones TECHNIQUE: 2 views COMPARISON: None. FINDINGS: Normal visualized lung bases. There is an unremarkable bowel gas pattern. There is no demonstrated free abdominal air. There are 2 discrete stones identified in the region of the LEFT kidney measuring 6 and 5 mm. NO ureteral stones are identified. Normal soft tissue structures. Normal visualized osseous structures. RAD/Abdomen Single View IMPRESSION: There is an unremarkable bowel gas pattern. There is no demonstrated free abdominal air. There are 2 discrete stones identified in the region of the LEFT kidney measuring 6 and 5 mm. NO ureteral stones are identified. Electronically Signed: Yunior Arteaga MD at 6:43 EST , Service support ,
--- OUTSIDE RECORDS SUMMARY | 2018-10-11 18:36 | XMS RPT_ITS | Continuity of Care Document ---
:1950 Author Organization [facility] Address [address] [place] [address] Phone Care Team Providers Name Role Phone Rylee Gracia DO Unavailable Fadumo Mcdaniel MD, I Unavailable Dr. Joaquim Hough Unavailable Deuce Soto Unavailable Herb KRISHNAN, Jj Phillips Unavailable Merari Lam Unavailable [facility] Unavailable [facility] Unavailable Spencer Clifton Unavailable ISHMAEL Arana Unavailable Unavailable Binta Cruz [...] Abnormal WBC count (D72.9, 288.9) Status: Active Abnormality of gait and mobility (R26.9, 781.2) Status: Active Accidental fall, initial encounter (W19.XXXA, E888.9) Status: Active Accidental fall, sequela (W19.XXXS, E929.3) Comments: was from vertigo-- did PT -- spinning has stopped but still off balance and falling Status: Active Acute pain of right shoulder [...] Dizziness (R42, 780.4) Comments: vertigo-- do nasonex, sumit lind Status: Active Dyspareunia, female (N94.10, 625.0) Status: [...] 714.9) Comments: see Dr. deutsch. 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 from Lupus. get eye exam and remind. doing better on plaquenil.mouth sores, elevated lfts, joint pain, low wbs, no rash Status: Active Irritable bowel syndrome (K58.9, 564.1) Status: Active LOW BACK PAIN (Renamed from LBP (low back pain)) (M54.5, 724.2) Status: Active Low HDL (under 40) (E78.6, 272.5) Status: Active Lupus (M32.9, 710.0) Comments: vellanki Status: Active Menopause syndrome (N95.1, 627.2) Comments: need estrogen cream but now insurance not want to cover she willcheck. Status: Active Migraine (G43.909, 346.80) Comments: occassional [...] Active Post-nasal drainage (R09.82, 473.9) Status: Active Post-nasal drip (R09.82, 784.91) Comments: etiology for cough and antihistamine helped Status: Active Pregnancies () Comments: 2 Status: [...] Quantity: 30 {Tablet} Refills: 1 Ordered:31-Jan-2018 Hiro Gracia DO, DO, Kathleen Start : 31-Jan-2018 Active Amitiza 24 MCG Oral Capsule 1 (one) Capsule twice daily for 0 days Quantity: 180 {Capsule} Refills: 3 Ordered:14-Apr-2018 Hiro Gracia DO, DO, Kathleen Start : 14-Apr-2018 Active Comments:Idiopathic constipation BuPROPion HCl ER (SR) 150 MG Oral Tablet Extended Release 12 Hour 1 (one) Tablet ER 12HR bid for 0 days Quantity: 180 {Tablet} Refills: 3 Ordered:18-Jun-2018 Hiro Gracia DO, DO, Kathleen Start : 18-Jun-2018 Active BuPROPion HCl ER (SR) 150 MG Oral Tablet Extended Release 12 Hour 1 (one) Tablet ER 12HR bid for 90 days Quantity: 180 {Tablet} Refills: 3 Ordered:18-Jun-2018 Hiro Gracia DO, DO, Kathleen Start : 18-Jun-2018 Active CALCIUM, 500MG (Oral Tablet) qd (500 MG) Active CeleXA 10 MG Oral Tablet 1 (one) Tablet qd for 30 days Quantity: 30 {Tablet} Refills: 3 Ordered:04-Aug-2018 Hiro Gracia DO, DO, Kathleen Start : 04-Aug-2018 Active Flunisolide 25 MCG/ACT (0.025%) Nasal Solution 1 (one) Boise Boise each nostril qd for 0 days Quantity: 1 {Boise} Refills: 2 Ordered:12-Feb-2018 Dasia Arana LPN Start : 12-Feb-2018 Active Lasix 20 MG Oral Tablet 1 (one) Tablet qd prn for 0 days Quantity: 30 {Tablet} Refills: 0 Ordered:31-Mar-2018 Hiro Gracia DO, DO, Kathleen Start : 31-Mar-2018 Active TraMADol HCl 50 MG Oral Tablet 1 prn (50 MG) Active TraZODone HCl 100 MG Oral Tablet 1 (one) Tablet q hs, prn for 0 days Quantity: 90 {Tablet} Refills: 3 Ordered:08-Apr-2018 Hiro Gracia DO, DO, Kathleen Start : 08-Apr-2018 Active [...] {Tablet} Refills: 0 Ordered:30-Mar-2009 Ilsa SELLERS Marlen hPillips Start : 30-Mar-2009 End : 14-Apr-2009 Inactive [...] Start : 11-Jun-2008 End : 06-Oct-2008 Inactive Dexilant 60 MG Oral Capsule Delayed Release 1 (one) Capsule qhs for 0 days Quantity: 30 {Capsule} Refills: 3 Ordered:04-Aug-2018 Dasia Arana LPN Start : 07-Jul-2018 End : 04-Aug-2018 Inactive DIFLUCAN, 150MG (Oral Tablet) uad Tablet one today and if not resolved can repeat in 2 days for 0 days Quantity: 2 {Tablet} Refills: 1 Ordered:09-Feb-2014 Wai MELISSA Start : 19-Nov-2013 End : 09-Feb-2014 Inactive [...] days Quantity: 30 {Tab_Sublingual} Refills: 3 Ordered:17-Dec-2012 Daphney ISHMAELTrish Start : 10-Jun-2012 End : 17-Dec-2012 Inactive [...] days Quantity: 14 {Applicator} Refills: 0 Ordered:07-Dec-2013 Nii ABREU RyleeGretchenparminder ABREU Rylee Start : 19-Nov-2013 End : 26-Nov-2013 Inactive MIRALAX (Oral Powder) 1 scoop qd Inactive MUCINEX, 600MG (Oral Tablet Extended Release 12 Hour) 1 for 0 days Refills: 0 Ordered:08-Sep-2008 Zabrina Farmer Start : 08-Sep-2008 End : 06-Oct-2008 Inactive MULTIVITAMIN (PO Tab) 1 tab qd Inactive MULTIVITAMIN (PO Tab) 1 tab qd for 0 days Refills: 0 Ordered:06-Oct-2008 Zabrina Farmer End : 06-Oct-2008 Inactive Nasonex 50 MCG/ACT Nasal Suspension 1 (one) [place] qd each nostril for 0 days Quantity: 1 {Container} Refills: 1 Ordered:12-Feb-2018 Manda Higginbotham MD Start : 12-Feb-2018 End : 12-Feb-2018 Inactive NIACIN FLUSH FREE, 500MG (Oral Capsule) 1 cap q hs (500 MG) Inactive NIACIN FLUSH FREE, 500MG (Oral Capsule) 3 (three) Capsule q hs for 0 days Refills: 0 Ordered:06-Oct-2008 MELISSA Carreno Start : 06-Oct-2008 End : 15-Apr-2009 Inactive NITROFURANTOIN MACROCRYSTAL, 100MG (Oral Capsule) 1 [...] Quantity: 30 {Tablet} Refills: 0 Ordered:28-Jun-2010 Pat Admas LPN Start : 22-Aug-2009 End : 28-Jun-2010 [...] Quantity: 21 {Tablet} Refills: 0 Ordered:01-Jan-2018 Hiro Gracia DO, DO, Kathleen Start : 01-Jan-2018 End [...] days Quantity: 3 {Tablet} Refills: 4 Ordered:13-Jun-2015 Slarb Tatiana QUIÑONES Start : 06-Jul-2014 End : 13-Jun-2015 Discontinued BUSPAR, 30MG (Oral Tablet) 1 (one) Tablet qhs / HS for 0 days Quantity: 90 {Tablet} Refills: 3 Ordered:06-Mar-2010 Zabrina Faremr Start : 06-Mar-2010 End : 25-Aug-2010 Discontinued Comments:This order discontinued per [facility]. CALCIUM 500 + D, 341-052VG-NS (PO Tab) 2 tabs qd for 0 [...] order discontinued per [facility]. VITAMIN D (ERGOCALCIFEROL), [id number] (Oral Capsule) 1 (one) Capsule Capsule once [...] Right Leg 1990 Completed Date Value Details 23-Jul-2018 Knee 4 or More Views Result: Comments: See Note; NOTES: [facility] Imaging Services [address] [place] [address] Knee 4 or More Views MR#: [id number] Acct: [id number] Name: SUSANNE TORRES Rep #: [id number] : 1950 F 68 From: Hector Cervantes MD PCP: Rylee Gracia DO Status: REG CLI Study: Knee 4 or More Views Date of Exam: 07/23/18 Exam# [id number] Ordering Dr: Lauren Topete STUDY: X-R AY - LEFT KNEE REASON FOR EXAM: Female, [...] Normal patellofemoral articulation. Normal proximal tibiofibular articulation. T here is a soft tissue prominence in the suprapatellar region suggesting a very small volume joint effusion. The soft tissue structures are unremarkable. ORDER #: [id number] RAD/Knee 4 or More Views IMPRESSION: Degenerative arthrosis of the left knee, most significant in the medial femorotibial compartment. Electronically Signed: Luis Eduardo Cervantes MD a t 9:24 EST , Service support , CC: Rylee Gracia DO; Lauren SERNA Prebish Cyber Forensics Analyst: Signed 07-Jul-2018 Chest PA and Lateral Result: Comments: See Note; NOTES: [facility] Services [address] [place] [address] Chest PA and Lateral MR#: [id number] Acct: [id number] Name: SUSANNE TORRES Rep #: [id number] : 1950 F 68 From: Hector Oliveira MD PCP: Rylee Gracia DO Status: REG CLI Study: Chest PA and Lateral Date of Exam: 07/07/18 Exam# [id number] Ordering Dr: Rylee Gracia DO STUDY: X-RA Y CHEST REASON FOR EXAM: Female, 68 years old. Coughing at night TECHNIQUE: PA and lateral views of the chest. COMPARISON: 06/13/2015 FINDINGS: The lungs are rashid ar and expanded. There is no demonstrated pleural abnormality. Normal size heart. Normal mediastinum and robe. Normal visualized pulmonary arteries. Normal visualized aortic arch and descending thoraci c aorta. There is a dextroscoliosis of the thoracic spine. Normal visualized ribs, clavicles, and shoulders. There is no demonstrated abnormality of the visualized soft tissue structures of the upper abdomen. RAD/Chest PA and Lateral IMPRESSION: No acute pulmonary process Electronically Signed: Luis Eduardo Oliveira MD at 16:49 EST , Service support , CC: Rylee Gracia DO Cyber Forensics Analyst: Signed 07-Jul-2018 Chest PA and Lateral Result: Comments: See Note; NOTES: [facility] Imaging Services [address] [place] [address] Chest PA and Lateral MR#: [id number] Acct: [id number] Name: SUSANNE TORRES Rep #: [id number] : 1950 F 68 From: Hector Oliveira MD PCP: Rylee Gracia DO Status: REG CLI Study: Chest PA and Lateral Date of Exam: 07/07/18 Exam# [id number] Ordering Dr: Rylee Gracia DO STUDY: X-RA Y CHEST REASON FOR EXAM: Female, 68 years old. Coughing at night TECHNIQUE: PA and lateral views of the chest. COMPARISON: 06/13/2015 FINDINGS: The lungs are rashid ar and expanded. There is no demonstrated pleural abnormality. Normal size heart. Normal mediastinum and robe. Normal visualized pulmonary arteries. Normal visualized aortic arch and descending thoraci c aorta. There is a dextroscoliosis of the thoracic spine. Normal visualized ribs, clavicles, and shoulders. There is no demonstrated abnormality of the visualized soft tissue structures of the upper abdomen. RAD/Chest PA and Lateral IMPRESSION: No acute pulmonary process Electronically Signed: Luis Eduardo Oliveira MD at 16:49 EST , Service support , CC: Rylee Gracia DO Cyber Forensics Analyst: Signed 20-Mar-2018 PT D/C Summary (1) Result: Comments: See Note; NOTES: [facility] [address] [place] [address] [address] [place] [address] Fax REHABILITATION SERVICES ISHMAEL TAN SUMMARY MR#: [id number] Acct: [id number] Name: SUSANNE TORRES Rep #: [id number] : 1950 68 From: Mitch Leonard DPT, OCS, CSCS Referring Dr.: Rylee Gracia DO Status: REG RCR Insurance : MEDICARE [...] will also do machines as instructed at [employer]. Still avoid pulling weeds and heavy lifting [...] please feel free to call me at [phone]. Thank you for the referral of this patient. Sincerel y, Mitch Leonard, DPT, OC <Electronically signed by Mitch RODRIGUEST, OCS, CSCS> 03/20/18 0932 CC: Rylee Gracia DO EBG Signed 04-Mar-2018 Re-Evaluation - PT (1) Result: Comments: See Note; NOTES: [facility] [address] [place], [place] [address] Fax [facility] MR#: [id number] Acct: [id number] Name: SUSANNE TORRES Rep #: [id number] : 1950 68 From: Mitch Leonard DPT, OCS, CSCS Referring Dr.: Rylee Gracia DO Status: RE G RCR Insurance: MEDICARE PART A B [employer] Rylee Gracia, It has been my pleasure to treat SUSANNE TORRES over the last 7 visits for R shouldr pain. Please see the progress note be low for an update on the physical therapy plan of care! Subjective: Out of the blue while I was sitting at orthodox my shldr just starting hurting worse. Reports the pain to be located in the front and under the shldr joint. Objective/Function: Review of postural maintainence so as to not exacerbate symptoms while sitting at [facility]. Pt states, I guess I wasn't really paying a ttention to how I was sitting. Minimal progression today in reps of current exc, however able to tolerate newly added shldr flexion and ABD exc with wts against gravity. While working on kinesi s, pt tripped on lower portion of machine [...] do not hesitate to contact me at [phone] by phone or if you have questions or concerns regarding this new plan of care! Sincerely, Mitch Leonard, LILIAT, OC <Electronically signed by Mitch RODRIGUEST, OCS, CSCS> 0 03/04/18 0939 CC: Rylee Gracia DO EBG Signed For Medicare only, by signing this I certify the plan of care. Physicians Signature Date 19-Feb-2018 Inital Evaluation (1) - PT Result: Comments: See Note; NOTES: [facility] [address] [place] [address] Fax REHABILITATION SERVICES INITIAL EVALUATION MR#: [id number] Acct: [id number] Name: SUSANNE TORRES Rep #: [id number] : 1950 68 From: Mitch Leonard DPT, OCS, CSCS Referring Dr.: Rylee Gracia DO Status: REG RCR Insuranc e: MEDICARE [...] + R maral Sheth and + R neotoniel. Tender to palpation over R supra and [...] to be FAXED BACK to us at [phone] for Medicare purposes. Please let me know if there are questions or concerns regarding this plan of care. Physician Signature: Date: <Electronically signed by Mitch Leonard DPT, OCS, CSCS> 02/19/18 0722 CC: Rylee Gracia DO EBG Signed For Me geoffrey only, by signing this I certify the plan of care. Physicians Signature Date 13-Feb-2018 Shoulder min 2 Views Result: Comments: See Note; NOTES: [facility] Imaging Services [address] [place] [address] Shoulder min 2 Views MR#: [id number] Acct: [id number] Name: SUSANNE TORRES Rep #: [id number] : 1950 F 68 From: Hector Oliveira MD PCP: Rylee Gracia DO Status: REG CLI Study: Shoulder min 2 Views Date of Exam: 02/13/18 Exam# [id number] Ordering Dr: Rylee Gracia DO STUDY: X-R AY - RIGHT SHOULDER [...] Service support , CC: Rylee Gracia DO Cyber Forensics Analyst: Signed 04-Feb-2018 Thyroid Result: Comments: See Note; NOTES: [facility] Services [address] [place] [address] Thyroid MR#: [id number] Acct: [id number] Name: SUSANNE TORRES Rep #: [id number] : 0 1950 F 68 From: Bayron Payan MD PCP: Rylee Gracia DO Status: REG CLI Study: Thyroid Date of Exam: 02/04/18 Exam# [id number] Ordering Dr: Rylee Gracia DO STUDY: THYROID ULTRASOUND RE ASON FOR [...] Bayron Payan MD at 10:35 EDT Tel [phone], Service support , CC: Rylee Gracia DO Cyber Forensics Analyst: Signed 16-Oct-2017 PT D/C Summary (1) Result: Comments: See Note; NOTES: [facility] [address] [place] [address] Fax REHABILITATION SERVICES DISCHAR GE SUMMARY MR#: [id number] Acct: [id number] Name: SUSANNE TORRES Rep #: [id number] : 1950 67 From: Martín Arteaga DPT Referring Dr.: Rylee Gracia DO Status: REG RCR Insurance: MEDICAR E [...] please feel free to call me at [phone]. Thank you for the referral of this patient. Sincer Martín damian <Electronically signed by Martín Arteaga DPT> 10/16/17 0958 CC: Rylee Gracia DO CLS Signed 12-Oct-2017 Urgent Care Visit Report Result: Comments: See Note; NOTES: [facility] [address] [place] [address] OFFICE VISIT Date of Service: 10/12/17 MR#: [id number] Acct: [id number] Name: SUSANNE TORRES Rep #: [id number] : 1950 Provider: Lillian Myers Age/Sex: 67/F [place] [facility] Status: Signed Intake Vital Signs10/12/17 Height 5 [...] any improvement advised that she see her train clerk. Medications New: Coding Level of Care Code [...] General: cooperative, no acute distress, well developed HENNV Head: normal to inspection, atraumatic Ears: hearing [...] any improvement advised that she see her train clerk. Medications New: Coding Level of Care Code Off vis,est,level 4 Diagnoses Cellulitis of other specified site L03.818 Site of cell ulitis: other site 10/12/17 1020 <Electronically signed by Lillian FLORES> Date Lillian FLORES Cosigner Signatur e: Date (if applicable) CC: 24-Sep-2017 PT Communication Result: Comments: See Note; NOTES: [facility] [address] [facility] [address] [place] [address] Fax REHABILITATION SERVICES PROGRSALVATORE Kaur NOTE MR#: [id number] Acct: [id number] Name: SUSANNE TORRES Rep #: [id number] : 1950 67 From: Tatiana JOHNSTON Referring Dr.: Rylee Gracia DO Status: REG RCR Insurance: MEDICARE PA [...] - PT Result: Comments: See Note; NOTES: [facility] [address] [place] [address]. [address] [place] [address] Fax REHABILITATION SERVICES INITIAL EVALUATION MR#: [id number] Acct: [id number] Name: SUSANNE TORRES Rep #: [id number] : 1950 67 From: Martín Arteaga DPT Referring DrJayden: Rylee Gracia DO Status: REG RCR Insurance: MEDICA RE [...] Response: No effect Lumbar Standing: Right Side [place] - Symptoms During Testing: No e ffect Lumbar Standing: Right Side [place] - Symptoms After Testing: No effect Lumbar Standing: Left Side [place] - Mechanical Response: No effect Lumbar Standing: Left Side [place] - Symptoms During Testing: No effect Lumbar Standing: Left Side [place] - Symptoms After Testing: No effect - [...] to be FAXED BACK to us at [phone] for Medicare purposes. Please let me know if there are questions or concerns regarding this plan of care. Physician Signature: Date: <Electronically signed by Martín Arteaga DPT> 09/18/171909 CC: Rylee Gracia DO CLS Signed For Medicare only, by signing this I certify the plan of care. Physicians Signature Date 16-Aug-2017 Hand Min 3 Views Result: Comments: See Note; NOTES: [facility] Services [address] [place] [address] Hand Min 3 Views MR#: [id number] Acct: [id number] Name: SUSANNE TORRES Rep #: [id number] : 1950 F 67 From: Bayron Payan MD PCP: Rylee Gracia DO Status: REG CLI Study: Hand Min 3 Views Date of Exam: 08/16/17 Exam# [id number] Ordering Dr: Rylee Gracia DO STUDY: X-RA Y - LEFT HAND [...] Bayron Payan MD at 13:43 EST Tel [phone], Service support , CC: Rylee Gracia DO Cyber Forensics Analyst: Signed 25-Jul-2017 SCREENING MAMM (CAD), BILAT Result: Comments: See Note; NOTES: [facility] Services [address] [place] [address] SCREENING MAMM (CAD), BILAT MR#: [id number] Acct: [id number] Name: SUSANNE TORRES Rep #: [id number] : 1950 F 67 From: Bayron Payan MD PCP: Rylee Gracia DO Status: REG CLI Study: SCREENING MAMM (CAD), BILAT Date of Exam: 07/25/17 Exam# [id number] Ordering Dr: Sherrell Gracia DO MAMMOGRAPHY - BILATERAL SCREENING REASON FOR [...] delay biopsy of a clinically suspicious abnormality. [id number] Electronically Signed: Bayron Payan MD at 14:18 EST Tel [phone], Service support , CC: Rylee Gracia DO Cyber Forensics Analyst: Signed 03-Jul-2017 Urgent Care Visit Report Result: Comments: See Note; NOTES: [facility] [address] [place] [address] OFFICE VISIT Date of Service: 07/03/17 MR#: [id number] Acct: [id number] Name: SUSANNE TORRES Rep #: [id number] : 1950 Provider: Matt FLORES Age/Sex: 67/F Location[place] [facility] Status: Signed Intake Vital Signs07/03/17 Height 5 [...] (Cipro) administer within 120 minutes prior to bsrm480 mg PO BID 7 days ical incision Additional Comments UA dip = mod blood, mo d leukocytes. Cipro as prescribed today (per pt preference). Appropriate hygiene reinforced. Follow-up with PCP or music minister 2-3 days should symptoms not improved, sooner should symptoms worsen or an y other concerns develop. Patient states acknowledging understanding of the above. Coding Level of Care Code Off vis,new,level 3 Diagnoses Urinary tract infection N39.0 07/03/17 1524 <Elect ronically signed by Matt FLORES> Date Matt FLORES Cosigner Signature: Date (if applicable) CC: 03-Jul-2017 Acute Abdomen Inc Chest Result: Comments: See Note; NOTES: [facility] Imaging Services [address] [place] [address] Acute Abdomen Inc Chest MR#: [id number] Acct: [id number] Name: SUSANNE TORRES Rep #: [id number] : 1950 F 67 From: Ross Javier DO PCP: Rylee Gracia DO Status: REG CLI Study: Acute Abdomen Inc Chest Date of Exam: 07/03/17 Exam# [id number] Ordering Dr: Rylee Gracia Y: X-RAY - ACUTE ABDOMINAL SERIES REASON [...] Ross Javier DO at 11:58 EST Tel [phone], Serv ice support , CC: Rylee Gracia DO Cyber Forensics Analyst: Signed 02-Jul-2017 Abd Inc Decub and/or Erect Result: Comments: See Note; NOTES: [facility] Services [address] [place] [address] Abd Inc Decub and/or Erect MR#: [id number] Acct: [id number] Name: SUSANNE TORRES Rep #: [id number] : 1950 F 67 From: Ross Javier DO PCP: Rylee Gracia DO Status: REG CLI Study: Abd Inc Decub and/or Erect Date of Exam: 07/02/17 Exam# [id number] Ordering Dr: Rylee Gracia DO STUDY: X-RAY - ABDOMEN/PELVIS REASON FOR [...] Ross Javier DO at 11:35 EST Tel [phone], Service support , Fax CC: Rylee Gracia DO Cyber Forensics Analyst: Signed 03-Jan-2017 Thyroid Result: Comments: See Note; NOTES: [facility] Services [address] [place] [address] Felipedana 4d Thyroid MR#: [id number] Acct: [id number] Name: SUSANNE TORRES Rep #: [id number] : 1950 F 66 From: Roselia Huerta MD PCP: Rylee Gracia DO Status: REG CLI Study: Thyroid Date of Exam: 01/03/17 Exam# [id number] Ordering Dr: Rylee Gracia DO STUDY: THYROID ULTRASOU ND REASON FOR [...] Tel , Service support , CC: Rylee Gracia DO Cyber Forensics Analyst: Signed 15-Aug-2016 Venous Duplex Lower Extremity Result: Comments: See Note; NOTES: [facility]ovascular Services [address] [place] [address] Venous Duplex US, Unilateral 08/15/16 1054 MR#: [id number] Acct: [id number] Name: SUSANNE COLMENARES Rep #: [id number] : 1950 66 From: Bradford Crowe MD Attending Dr: Rylee Gracia DO Status: REG CLI Ordering Dr: Rylee Gracia DO Date: 08/15/16 Location: [facility] Sex: F [...] competent and demonstrates norm al to Dr. Gracia. augmentation. POP V is compressible, spontaneous, phasic, [...] patent and compressible segmentally. Ordering Physician: Rylee Gracia Referring Physician: Peri Deutsch Performed By: Humera Martinez RVT 12 :27 PM 08/15/16 1228 Date Bradford Crowe MD CC: Rylee Gracia DO Date Dictated: 08/15/16 1054 Date Transcribed: 08/15/16 1228 Cyber Forensics Analyst: Signed 24-Jul-2016 SCREENING MAMM (CAD), BILAT Result: Comments: See Note; NOTES: [facility] Services [address] [place] [address] Verdana 4d SCREENING MAMM (CAD), BILAT MR#: [id number] Acct: [id number] Name: MARYANA TORRES Rep #: [id number] : 1950 F 66 From: Ross Javier DO PCP: Rylee Gracia DO Status: REG CLI Study: SCREENING MAMM (CAD), BILAT Date of Exam: 07/24/16 Exam# [id number] Ordering Dr: Rylee Gracia DO MAMMOGRAPHY - BILATERAL SCREENING REASON FOR [...] delay biopsy of a clinically suspicious abnormality. [id number] Electronically Signed: Ross Javier DO at 16:06 EST Tel [phone], Service support [phone], CC: Rylee Gracia DO Cyber Forensics Analyst: Signed 17-Jul-2016 DXA BONE DENS W/VERT FX ASMT Result: Comments: See Note; NOTES: [facility] Imaging Services [address] [place] [address] Verdana 4d DXA BONE DENS W/VERT FX ASMT MR#: [id number] Acct: [id number] Name: LUABVincent TOMMY Love Rep #: [id number] : 1950 F 66 From: Bayron Payan MD PCP: Rylee Gracia DO Status: REG CLI Study: DXA BONE DENS W/VERT FX ASMT Date of Exam: 07/17/16 Exam# [id number] Ordering Dr : Rylee Gracia DO STUDY: DUAL ENERGY X-RAY ABSORPTIOMETRY / [...] Bayron Payan MD at 14:09 EST Tel [phone], Service support [phone], CC: Ryleeradha Gracia Cyber Forensics Analyst: Signed 01-Mar-2016 ELECTROCARDIOGRAM, COMPLETE (ECG) (80031) Comments: sinus beverly no acute chg Result: [MEASUREMENTS ANALYSIS] Date of Test: 03/01/2016 13:45:12; Heart Rate: 59; ND Interval: 154; QRS: 92; QT Interval: 426; Corrected QT Interval (QTc): 425; P Wave [place]: 33; QRS Wave [place]: 33; T Wave [place]: 90; Blood Pressure: 120/78 [ECG DIAGNOSTIC STATEMENTS] Date of Test: 03/01/2016 13:45:12; Summary: Sinus Bradycardia - Nonspecific T-abnormality. ABNORMAL 01-Nov-2015 Lumbar Spine 2 or 3 Views Result: Comments: See Note; NOTES: [facility] [address] [place] [address] Verdana 4d Lumbar Spine 2 or 3 Views MR#: [id number] Acct: [id number] Name: ISAIAH COLMENARESANNJacqueline Love Rep #: [id number] : 1950 F 65 From: Bayron Payan MD PCP: Manda Higginbotham MD Status: REG CLI Study: Lumbar Spine 2 or 3 Views Date of Exam: 11/01/15 Exam# [id number] Tanya gilmore Dr: Ryan Ortiz MD STUDY: [...] Bayron Payan MD at 10:21 EDT Tel [phone], Service support [phone], RAD/Lumbar Spine 2 or 3 Views IMPRESSION: Degenerative changes of the spine, as detai led above. Electronically Signed: Bayron Payan MD at 10:21 EDT Tel [phone], Service support [phone], CC: Ryan Ortiz MD; Manda Higginbotham MD Cyber Forensics Analyst: Signed 13-Oct-2015 Spine Cervical (Routine) Result: Comments: See Note; NOTES: [facility] Imaging Services [address] [place] [address] [place] 4d Spine Cervical (Routine) MR#: [id number] Acct: [id number] Name: SUSANNE KATE Rep #: [id number] : 1950 F 65 From: Tavo Perez MD PCP: Manda Higginbotham MD Status: REG CLI Study: Spine Cervical (Routine) Date of Exam: 10/13/15 Exam# [id number] Ordering Dr: Ryan Ortiz MD STUDY: MRI [...] at 19:04 EDT Tel , Service support [phone], CC: Ryan Ortiz MD; Manda Higginbotham MD Cyber Forensics Analyst: Signed 19-Jul-2015 Bilat Scrn Digital AND CAD Result: Comments: See Note; NOTES: [facility] Imaging Services [address] [place] [address] Verdana 4d Bilat Scrn Digital AND CAD MR#: [id number] Acct: [id number] Name: SUSANNE TORRES Rep #: [id number] : 1950 F 65 From: Hector Oliveira MD PCP: Manda Higginbotham MD Status: REG CLI Study: Bilat Scrn Digital AND CAD Date of Exam: 07/19/15 Exam# [id number] Ordering Dr: Manda Higginbotham MD MAMMOGRAPHY - [...] delay biopsy of a clinically suspicious abnormality. [id number] Electronically Signed: Luis Eduardo Oliveira MD at 15:55 EST Te l , Service support [phone], CC: Manda Higginbotham MD Cyber Forensics Analyst: Signed 12-Jul-2015 PT D/C of Non Returning Pt. Result: Comments: See Note; NOTES: [facility] Physical Therapy [address] [place] [address] Fax REHABILITATION SE RVICES DISCHARGE SUMMARY MR#: [id number] Acct: [id number] Name: SUSANNE TORRES Rep #: [id number] : 1950 65 From: Tatiana Wagner Referring : Chirag Lee DPM Status: PRE RCR Eval [...] Result: Comments: See Note; NOTES: [facility] Imaging Services [address] [place] [address] [place] 4d Chest PA and Lateral MR#: [id number] Acct: [id number] Name: SUSANNE PADILLA Rep #: [id number] : 1950 F 65 From: Bayron Payan MD PCP: Manda Higginbotham MD Status: REG CLI Study: Chest PA and Lateral Date of Exam: 06/13/15 Exam# [id number] Ordering Dr: Marlen Rosenbaum STUDY: X-RAY CHEST [...] Bayron Payan MD at 14:40 EST Tel [phone], Service support [phone], 0079 RAD/Chest PA and Lateral IMPRESSION: No acute abnormality is seen. Electronically Signed: Bayron Payan MD at 14:40 EST Tel [phone], Service support [phone], CC: Marlen Rosenbaum; Manda Higginbotham MD Cyber Forensics Analyst: Signed 14-May-2015 Operative Report Result: Comments: See Note; NOTES: [facility] Medical Records Department [address] [place] [address] Operative Report MR#: [id number] Acct: [id number] Name: MARYANA TORRES Rep #: [id number] : 1950 65 From: Deion Gomez MD PCP: Manda Higginbotham MD Status: [facility] DATE OF SERVICE: 05/13/2015 [...] condition. Deion Gomez MD T: NTS JOB: [id number] 05/14/15 1121 <Electronically si gned by Deion Gomez MD> Date Deion Gomez MD Cosigner Signature (If Indicated): Date CC: Manda Higginbotham MD; Deion Gomez MD Date Dictated: 05/13/151357 Date Transcribed: 05/13/151357 Cyber Forensics Analyst: Signed 13-May-2015 Discharge Instruction Result: Comments: See Note; NOTES: [facility] Medical Records Department [address] [place] [address] Instructions for Home/Discharge Instructions 05/13/15 1400 MR#: [id number] Acct: [id number] Name: SUSANNE TORRES Rep #: [id number] : 1950 65 From: Deion Gomez MD PCP: Manda Higginbotham MD Status: REG ILC Discharge Diet: No Restrictions Discharge Activ ity: [...] Please Follow Up With: Deion Gomez - [phone] When: CALL SOON FOR AN APPT IN FEW WKS, TO PAGE 05/13/15 8939 <Electronically signed by Deion Gomez MD> Date Deion Gomez MD CC: Manda Higginbotham MD 12-May-2015 Abdomen Single View Result: Comments: See Note; NOTES: [facility] Imaging Services [address] [place] [address] Verdana 4d Abdomen Single View MR#: [id number] Acct: [id number] Name: SUSANNE RAMIREZ Rep #: [id number] : 1950 F 65 From: Jack Calderon MD PCP: Manda Higginbotham MD Status: REG CLI Study: Abdomen Single View Date of Exam: 05/12/15 Exam# [id number] Ordering Dr: Deion Hernandez MD STUDY: X-RAY [...] Jack Calderon MD at 23:58 EDT Tel [phone], Service support [phone], RAD/Abdomen Single View IM PRESSION: 5 mm left renal stone. Electronically Signed: Jack Calderon MD at 23:58 EDT Tel [phone], Service support [phone], CC: Manda Higginbotham MD; Deion Gomez MD Cyber Forensics Analyst: Signed 02-May-2015 Abdomen Single View Result: Comments: See Note; NOTES: [facility] Imaging Services [address] [place] [address] Radiology Report MR#: [id number] Acct: [id number] Name: SUSANNE TORRES Re p #: [id number] : 1950 F 65 From: Hector Cervantes MD PCP: Manda Higginbotham MD Status: REG CLI Study: Abdomen Single View Date of Exam: 05/02/15 Exam# [id number] Ordering Dr: Deion Gomez MD STUDY: X-RAY [...] MD at 16:59 EDT , Service support [phone], RAD/Abdomen Sing le View IMPRESSION: 1. 5 [...] MD at 16:59 EDT , Service support [phone], CC: Manda Higginbotham MD; Deion Gomez MD Cyber Forensics Analyst: Signed 29-Mar-2015 Extremity Lower without Contra Result: Comments: See Note; NOTES: [facility] Imaging Services [address] [place] [address] CAT Scan Report MR#: [id number] Acct: [id number] Name: SUSANNE TORRES Rep #: [id number] : 1950 F 65 From: Roselia Huerta MD PCP: Manda Higginbotham MD Status: REG CLI Study: Extremity Lower without Contra Date of Exam: 03/29/15 Exam# [id number] Ordering Dr: Chirag Lee DPM STUDY: CT [...] at 13:47 EDT Tel , Service support [phone], CC: Manda guevara MD; Chirag Lee DPM Cyber Forensics Analyst: Signed 22-Mar-2015 Inital Evaluation - PT Result: Comments: See Note; NOTES: [facility] Physical Therapy [facility] [address] [facility] [address] [facility] [place] [address] Fax REHABILITATION SERVICES INITIAL EVALUATION MR#: [id number] Acct: [id number] Name: SUSANNE TORRES Rep #: [id number] : 1950 65 From: Tatiana Wagner Referring [...] to be FAXED BACK to us at [phone] for Medicare purposes. Please let me know if there are questions or concerns regarding this plan of care. Physician Signature: Date: <Electronically signed by Tatiana Wagner > 03/22/15 1556 CC: Manda Higginbotham MD; Chirag Lee DPM Signed For Medicare only, by signing this I certify the plan of care. Physicians Signature Date 31-Dec-2014 Operative Report Result: Comments: See Note; NOTES: [facility] Medical Records Department [address] [place] [address] Operative Report MR#: [id number] Acct: [id number] Name: SUSANNE TORRES Rep #: [id number] : 1950 64 From: Chirag Lee DPM PCP: Manda Higginbotham MD Status: [facility] DATE OF SERVICE: 12/31/2014 [...] LOSS: Less than 1 mL. MATERIALS: One [employer] 5.5 mm partially threaded screw with [...] mm screw was placed across the f [facility] metatarsal fracture site intramedullary. Of [...] needed. Chirag Lee DPM T: TITI JOB: [id number] 12/31/14 1603 &# 60;Electronically signed by Chirag Lee DPM> Date Chirag Lee DPM CC: Manda Higginbotham MD; Sunday Lee MD Date Dictated: 12/31/14914 Date Transcribed: 12/31/14914 Cyber Forensics Analyst: Signed 31-Dec-2014 Foot 2 Views Result: Comments: See Note; NOTES: [facility] Imaging Services [address] [place] [address] Radiology Report MR#: [id number] Acct: [id number] Name: SUSANNE TORRES Rep #: [id number] : 1950 F 64 From: Bayron Payan MD PCP: Manda Higginbotham MD Status: [facility] Study: Foot 2 Views Date of Exam: 12/31/14 Exam# [id number] Ordering Dr: Chirag Lee DPM STUD Y: [...] Bayron Payan MD at 13:09 EDT Tel [phone], Service support [phone], RAD/Foot 2 Views IMPRESSION: Satisfactory ORIF of the transverse fracture of the base of the fifth metatarsal. Electronically Signed: Bayron sosa MD at 13:09 EDT Tel [phone], Service support [phone], CC: Manda Higginbotham MD; Sunday Lee MD Cyber Forensics Analyst: Signed 31-Dec-2014 Discharge Instruction Result: Comments: See Note; NOTES: [facility] Medical Records Department [address] [place] [address] Instructions for Home/Discharge Instructions 12/31/1432 MR#: [id number] ct: [id number] Name: SUSANNE TORRES Rep #: [id number] : 1950 64 From: Chirag Lee DPM PCP: Manda Higginbotham MD Status: REG [facility] Discharge Diet: Light diet - advance as [...] Result: Comments: See Note; NOTES: [facility] Imaging Services [address] [place] [address] Radiology Report MR#: [id number] Acct: [id number] Name: SUSANNE TORRES Rep #: [id number] : 1950 F 64 From: Bayron Payan MD PCP: Manda Higginbotham MD Status: [facility] Study: Foot 2 Views Date of Exam: 12/31/14 Exam# [id number] Ordering Dr: Chirag Lee DPM STUD Y: [...] Morgan Payan MD at 13:02 EDT Tel [phone], Service support [phone], RAD/Foot 2 Views IMPRESSION: Satisfactory reduction of the transvers e fracture at the base of the fifth metatarsal with screw fixation. Electronically Signed: Bayron Payan MD at 13:02 EDT Tel [phone], Service support [phone], Fax CC: Manda Higginbotham MD; Sunday Lee MD Cyber Forensics Analyst: Signed 24-Sep-2014 Abdomen Single View Result: Comments: See Note; NOTES: [facility] Imaging Services [address] [place] [address] Radiology Report MR#: [id number] Acct: [id number] Name: SUSANNE TORRES Rep #: [id number] : 1950 F 64 From: Agustin Washington MD PCP: Manda Higginbotham MD Status: REG CLI Study: Abdomen Single View Date of Exam: 09/24/14 Exam# [id number] Ordering Dr: Deion Gomez MD UDY: X-RAY [...] at 17:02 EST Tel , Service support [phone], Fax RAD/Abdomen Single View IMPRESSION: 5 mm left upper pole stone. Other renal stones are not seen but not excluded. Electronically Signed: Agustin Washington MD at 17:02 EST Tel , Service support [phone], CC: Manda Higginbotham MD; Deion Gomez MD Cyber Forensics Analyst: Signed 04-Aug-2014 Abdomen/Pelvis without Cont Result: Comments: See Note; NOTES: [facility] Imaging Services [address] [facility] [place] [address] CAT Scan Report MR#: [id number] Acct: [id number] Name: SUSANNE TORRES Rep #: [id number] : 1950 F 64 From: Bayron Payan MD PCP: Manda Higginbotham MD Status: REG CLI Study: Abdomen/Pelvis without Cont Date of Exam: 08/04/14 Exam# [id number] Ordering Dr: Deion Gomez MD STUDY: CT [...] Bayron Payan MD at 11:33 EST Tel [phone], Service support [phone], CC: Manda Higginbotham MD; Deion Gomez MD Cyber Forensics Analyst: Signed 13-Jul-2014 Vert Fx Asess/Lat Bone Den(H) Result: Comments: See Note; NOTES: [facility] Imaging Services [address] [facility] [place] [address] Bone Density Report MR#: [id number] Acct: [id number] Name: SUSANNE TORRES Rep # : [id number] : 1950 F 64 From: Bayron Payan MD PCP: Manda Higginbotham MD Status: REG CLI Study: Vert Fx Asess/Lat Bone Den(H) Date of Exam: 07/13/14 Exam# [id number] Ordering Dr: Iona Higginbotham MD ADDENDUM by Bayron Payan MD on 08/03/14 at 0947 ADDENDUM This is an addendum r eport. A vertebral assessment study was obtained as well. There is moderate degree of loss of height of the T7 vertebrae. Minimal loss of white of the superior plate of the T11 vertebrae. Electron ically Signed: Bayron Payan MD at 9:47 EST Tel [phone], Service support [phone], 08/03/14 0947 Date cc: Manda Higginbotham MD [...] Michael Payan MD at 13:17 EST Tel [phone], Service support [phone], CC: Manda Higginbotham MD Cyber Forensics Analyst: Signed 13-Jul-2014 Vert Fx Asess/Lat Bone Den(H) Result: Comments: See Note; NOTES: [facility] Imaging Services [address] [place] [address] Bone Density Report MR#: [id number] Acct: [id number] Name: SUSANNE TORRES Rep # : [id number] : 1950 F 64 From: Bayron Payan MD PCP: Manda Higginbotham MD Status: REG CLI Study: Vert Fx Asess/Lat Bone Den(H) Date of Exam: 07/13/14 Exam# [id number] Ordering Dr: Iona Higginbotham MD STUDY: DUAL [...] Bayron Payan MD at 13:17 EST Tel [phone], Service support [phone], CC: Manda Higginbotham MD Cyber Forensics Analyst: Signed 13-Jul-2014 Bilat Scrn Digital AND CAD Result: Comments: See Note; NOTES: [facility] Imaging Services [address] [place] [address] Breast Imaging Report MR#: [id number] Acct: [id number] Name: SUSANNE TORRES Rep #: [id number] : 1950 F 64 From: Hector Oliveira MD PCP: Manda Higginbotham MD Status: REG CLI Study: Pauline Tsang Digital AND CAD Date of Exam: 07/13/14 Exam# [id number] Ordering Dr: Manda Higginbotham MD MAMMOGRAPHY - [...] Eduardo Oliveira MD at 15:14 EST Tel [phone], Service support , CC: Manda Higginbotham MD Cyber Forensics Analyst: Signed 13-Jul-2014 Dexa Bone Density Study (HP) Result: Comments: See Note; NOTES: [facility] Imaging Services [address] [place] [address] Bone Density Report MR#: [id number] Acct: [id number] Name: SUSANNE TORRES Rep # : [id number] : 1950 F 64 From: Bayron Payan MD PCP: Manda Higginbotham MD Status: REG CLI Study: Dexa Bone Density Study (HP) Date of Exam: 07/13/14 Exam# [id number] Ordering Dr: Ap Higginbotham MD STUDY: DUAL [...] Bayron Payan MD at 13:24 EST Tel [phone], Service support [phone], CC: Manda Higginbotham MD Cyber Forensics Analyst: Signed 02-Apr-2014 Pelvis 1 or 2 Views Result: Comments: See Note; NOTES: [facility] Imaging Services [address] [place] [address] Radiology Report MR#: [id number] Acct: [id number] Name: SUSANNE TORRES Rep #: [id number] : 1950 F 64 From: Ross Javier DO PCP: Manda Higginbotham MD Status: REG CLI Study: Pelvis 1 or 2 Views Date of Exam: 04/02/14 Exam# [id number] Ordering Dr: Peri Deutsch MD STUDY: X-RAY [...] Ross Javier DO at 20:24 EDT Tel [phone], Service support [phone], Fax CC: Manda Higginbotham MD; Peri Deutsch MD Cyber Forensics Analyst: Signed 09-Jul-2013 Bilat Scrn Digital & CAD Result: Comments: See Note; NOTES: [facility] Imaging Services [address] [place] [address] Breast Imaging Report MR#: [id number] Acct: [id number] Name: SUSANNE TORRES Rep #: [id number] : 1950 F 63 From: Bayron Payan MD PCP: Status: REG CLI Exam# [id number] Ordering Dr: Manda Higginbotham MD MAMMOGRAPHY - [...] Signed: Bayron Payan M.D. at 10:52 EST [facility] [phone], Service support [phone], CC: Manda Higginbotham MD Cyber Forensics Analyst: Signed Immunization Name Dates Details Influenza (3 years and up) on: 23-May-2007 Comments: given 0.5cc im in left deltoid lot#[id number] exp.11/27- Influenza (3 years and up) on: 11-Jun-2008 Comments: inj given left deltoid no complicationslot:[id number]:12/28 Influenza (3 years and up) on: 22-Apr-2009 Comments: Lot #: [id number] date: mount given: 0.5 mlRoute: IMSite given: left deltoidGiven by: A Maritza, INSULATION CUTTER Pneumococcal (2 years and up) on: 22-Apr-2009 [...] smoker Vital Signs Date Test Result Details :30 Pulse 109 /min Comments: Pattern: Regular Respiration Rate 18 /min Comments: Pattern: Unlabored O2 SAT 98 % Comments: Room air BP Systolic 122 mm[Hg] Comments: Patient Position: Sitting; Cuff Location: Left Arm; Cuff Size: Large BP Diastolic 78 mm[Hg] Comments: Patient Position: Sitting; Cuff Location: Left Arm; Cuff Size: Large Weight 165.125 lb Height 61 in Body Mass Index Calculated 31.2 kg/m2 Body Surface Area Calculated 1.74 m2 :18 Temperature 97 f Comments: Method: Temporal [...] kg/m2 Body Surface Area Calculated 1.73 m2 63-Mld-156440:36 Temperature 98.4 f Comments: Method: Temporal Pulse [...] kg/m2 Body Surface Area Calculated 1.73 m2 14-Aga-299710:03 Pulse 81 /min Comments: Pattern: Regular Respiration [...] Calculated 1.87 m2 Head Circumference 0.00 cm 61-Vvk-700350:07 Temperature 97.8 f Comments: Method: Oral Pulse [...] 0.00 cm Results Date Description Value Details :13 CBC W/Diff, Automated Comments: DR. GRACIA WANTS THE [facility] CMP VITD TSH T3F CBCD T4FDR. JOVON WNATS THE VITD PROCRE CBCD PTH [facility] [address] [place], [address] Absolute Lymph 1.49 {X10_3/ul} (Normal) Range: 0.83-4.51 Absolute Neut 2.2 {X10_3/uL} (Normal) Range: 2.0-7.7 IM GRAN % 0.200 % (Normal) Range: 0.0-0.9 Comments: IG% - Immature Granulocytes (promyelocytes, myelocytes andmetamyelocytes) > 1% indicates that a LEFT SHIFT is Present. BASO% 2.7 % (Abnormal) Range: 0-1 EO% 3.2 % (Normal) Range: 0-5 MONO% 8.5 % (Normal) Range: 0-10 LY% 34.1 % (Normal) Range: 19-41 NEUT% 51.3 % (Normal) Range: 47-70 MPV 9.6 fL (Normal) Range: 6.2-12.0 PLT 235 K/mm3 (Normal) Range: 150-450 RDW SD 44.8 fL (Abnormal) Range: 35.1-43.9 RDW CV 13.3 % (Normal) Range: 11.6-14.6 MCHC 31.6 {g/gl} (Abnormal) Range: 32-36 MCH 29.9 pg (Normal) Range: 27.0-32.0 MCV 94.8 fL (Normal) Range: 81-99 HCT 43.4 % (Normal) Range: 37-47 HGB 13.7 g/dL (Normal) Range: 12.0-15.0 RBC 4.58 {M/mm3} (Normal) Range: 4.2-5.4 WBC 4.4 K/mm3 (Normal) Range: 4.4-11.0 16-Lch-90044:13 Comprehensive Metabolic Profil Comments: DR. GRACIA WANTS THE NMP CMP VITD TSH T3F CBCD T4FDR. JOVON WORLEYATS THE VITD PROCRE CBCD PTH PHOS [facility] [id number] [place], [address] GAP 9 (Normal) Range: 5-15 CO2 28.0 mmol/L (Normal) Range: 21.0-32.0 CL 107 mmol/L (Normal) Range: 98-107 K 4.5 mmol/L (Normal) Range: 3.5-5.1 NA 144 mmol/L (Normal) Range: 136-145 T BILI 0.50 mg/dL (Normal) Range: 0.20-1.00 ALT 18 U/L (Normal) Range: 13-56 ALK P 74 U/L (Normal) Range: 45-117 AST 14 U/L (Abnormal) Range: 15-37 CA 9.0 mg/dL (Normal) Range: 8.5-10.1 A/G 1.3 {RATIO} (Normal) Range: 0.9-2.4 GLOB 3.0 g/dL (Normal) Range: 2.2-4.2 ALB 3.8 g/dL (Normal) Range: 3.2-5.0 T PROT 6.8 g/dL (Normal) Range: 6.4-8.2 BUN/CRE 26.2 {RATIO} (Abnormal) Range: 10-20 EST GFR - AA 75 mL/min (Normal) Comments: GFR Calc EST GFR 62 mL/min (Normal) Comments: Non- GFR Calc CREAT,SERUM 0.95 mg/dL (Normal) Range: 0.55-1.02 Comments: The validity of the calculated GFR AND GFRAA in patients over70 years has not been determined. Clinical correlation isessential. BUN 25 mg/dL (Abnormal) Range: 7-18 GLU 97 mg/dL (Normal) Range: 74-106 Comments: Please note revised GLUCOSE reference range ydelmwoql36/02/2018. 01-Xbg-65024:13 Free T3 Comments: DR. GRACIA WANTS THE [facility] VITD TSH T3F CBCD T4FDR. JOVON SANDOVAL THE VITD PROCRE CBCD PTH PHOS [facility] [address] [place], [address] FREE T3 2.4 pg/mL (Normal) Range: 2.18-3.98 14-Uyn-29183:13 NMR Lipoprofile Comments: DR. GRACIA WANTS THE [facility] VITD TSH T3F CBCD T4FDR. JOVON SANDOVAL THE VITD PROCRE CBCD PTH PHOS [facility] (refer to report for specific site)refer to report for address and phone number LP-IR SCORE <25 (Normal) Comments: INSULIN RESISTANCE MARKER <--Insulin Sensitive Insulin Resistant--> Percentile in Reference PopulationInsulin Resistance ScoreLP-IR Score Low 25th 50th 75th High <27 27 45 63 >63LP-IR Score is inaccurate if patient is non-fasting.The LP-IR score is a laboratory developed index that hasbeen associated with insulin resistance and diabetes riskand should be used as one component of a physician'sclinical assessment. The LP-IR score listed above has notbeen cleared by the [place] Food and Drug Administration.Performed at: - [facility] [id number] Director: Juwan Hendrix MD, Phone: [phone] INS RES/DIAB RK . (Normal) LDL SIZE 21.0 nm (Normal) Comments: INTERPRETATIVE INFORMATION PARTICLE CONCENTRATION AND SIZE <--Lower CVD Risk Highe r CVD Risk--> LDL AND HDL PARTICLES Percentile in Reference Population HDL-P (total) High 75th 50th 25th Low >34.9 34.9 30.5 26.7 <26.7 Small LDL-P Low 25th 50th 75th High <117 117 527 839 >839 LDL Size <-Large (Pattern A)-> <-Small (Pattern B)-> 23.0 20.6 20.5 19.0 Small LDL-P and LDL Size are associated with CVD risk, butnot after LDL-P is taken into account .These assays were developed and their performancecharacteristics determined by [facility]. These assayshave not been cleared by the [place] Food and DrugAdministration. The clinical utility of these laboratoryvalues have not been fully established. SMALL LDL-P 244 nmol/L (Normal) HDL-P TOTAL 48.2 umol/L (Normal) LD HD PARTICLES . (Normal) LDL-P 960 nmol/L (Normal) Comments: Low < 1000 Moderate 1000 - 1299 Borderline- High 1300 - 1599 High 1600 - 2000 Very High > 2000 TRIGLYCERIDES 56 mg/dL (Normal) Range: 0-149 HDL-C 87 mg/dL (Normal) LDL-C 97 mg/dL (Normal) Range: 0-99 Comments: Optimal < 100 Above optimal 100 - 129 Borderline 130 - 159 High 160 - 189 Very high > 189LDL-C is inaccurate if patient is non-fasting. CHOLESTEROL TOT 195 mg/dL (Normal) Range: 100-199 LIPIDS . (Normal) :13 Phosphorus Comments: DR. GRACIA WANTS THE [facility] VITD TSH T3F CBCD T4FDR. JOVON [facility] THE VITD PROCRE CBCD PTH [facility] [address] [place], [place], [address] PHOS 3.2 mg/dL (Normal) Range: 2.5-4.9 :13 Protein+Creatinine Ratio,Urine Comments: DR. GRACIA WANTS THE [facility] VITD TSH T3F CBCD [facility]FDR. [facility] THE VITD PROCRE CBCD PTH [facility] [address] [place], [address] PROT:CRE RATIO 79 {mg/g_CRE} (Normal) Range: 0-200 PROTEIN,UR.RAN. 12.1 mg/dL (Abnormal) UR CREAT 154.00 mg/dL (Normal) :13 PTHIN 60.9 pg/mL (Normal) Comments: DR. GRACIA WANTS THE [facility] VITD TSH T3F CBCD T4FDR. [facility] THE VITD PROCRE CBCD PTH [facility] [address] [place], [place], [id number] Range: 18.4-80.1 :13 T4 Free Direct Comments: DR. GRACIA WANTS THE [facility] VITD TSH T3F CBCD T4FDR. [facility] THE VITD PROCRE CBCD PTH [facility] [address] [place], [place], [address] T4 FREE DIRECT 1.05 ng/dL (Normal) Range: 0.76-1.46 :13 Thyroid Stim Hormone (TSH) Comments: DR. GRACIA WANTS THE [facility] VITD TSH T3F CBCD T4FDR. [facility] THE VITD PROCRE CBCD PTH [facility] [address] [place], [place], [address] TSH 3.04 {uIU/mL} (Normal) Range: 0.358-3.74 :13 Vitamin D,25 Hydroxy Comments: DR. GRACIA WANTS THE [facility] VITD TSH T3F CBCD T4FDR. [facility] THE VITD PROCRE CBCD PTH [facility] [address] [place], [place], [address] Vitamin D 25-OH 33.5 ng/mL (Normal) Range: 29.95-100.01 Comments: Vitamin D 25(OH) Status Range Deficiency <20 ng/mL (50nmol/L) Insuffciency 20 - 30 ng/mL (50 - 75 nmol/L) Sufficiency 30 - 100 ng/mL (75 - 250 nmol/L) Toxicity >100 ng/mL (>250 nmol/L) 23-Kza-575271:12 CALCIFIDIOL (62717) VIT D 25 Comments: PATIENT NOT FASTINGPERFORMED BY: JOHN [facility] [address] RoadDublin [place] [id number] Vitamin D, 25-Hydroxy 41.7 ng/mL (Normal) Range: 30.0-100.0 Comments: Vitamin D deficiency has been defined by the [facility] [facility] and an Endocrine Society practice guideline as alevel of serum 25-OH vitamin D less than 20 ng/mL (1,2).The Endocrine Society went on to further define vitamin Dinsufficiency as a level between 21 and 29 ng/mL (2).1. IOM ([place] [employer]). 2010. Dietary reference intakes for calcium and D. [place]: The National Academies Press.2. Micky MF, Jessenia SYKES, Katrin CAMARGO, et al. Evaluation, treatment, and prevention of vitamin D deficiency: an Endocrine Society clinical practice guideline. JCEM. 2010; 96(7):1911-30. 14-Hgf-818445:12 VITAMIN B-12 (CYANOCOBALAMIN) Comments: PATIENT NOT FASTINGPERFORMED BY: CB [facility] Pnfydo2935 [facility] [place] [id number] ([address]) Vitamin B12 459 pg/mL (Normal) Range: 232-1245 89-Bvl-920589:12 TSH (08716) Comments: PATIENT NOT FASTINGPERFORMED BY: CB [facility] Fzqdib3440 [facility] [place] [id number] TSH 2.120 {uIU/mL} (Normal) Range: 0.450-4.500 45-Yuy-691798:12 SED RATE ERYTHROCYTE (45307) Comments: PATIENT NOT FASTINGPERFORMED BY: CB [facility] Kkdlrc1414 [facility] [place] [id number] Sedimentation Rate-Westergren 2 mm/h (Normal) Range: 0-40 74-Ggt-023175:12 RHEUMATOID FACTOR-QUANT (72638) Comments: PATIENT NOT FASTINGPERFORMED BY: CB [facility] Vmbuea7918 [facility] [place] [id number] RA Latex Turbid. <10.0 {IU/mL} (Normal) Range: 0.0-13.9 62-Uuh-166931:12 METABOLIC PANEL, COMPREHENSIVE Comments: PATIENT NOT FASTINGPERFORMED BY: Taigen Ztzlze1797 [facility] [id number] (70901) ALT (SGPT) 19 [iU]/L (Normal) Range: 0-32 [...] 8-27 Glucose 92 mg/dL (Normal) Range: 65-99 84-Lmx-182561:12 C-REACTIVE PROTEIN (64482) Comments: PATIENT NOT FASTINGPERFORMED BY: [facility] Dzjjtk9650 [facility] [id number] C-Reactive Protein, Quant 1.2 mg/L (Normal) Range: 0.0-4.9 41-Phx-179438:12 CBC (AUTO) (46630) Comments: PATIENT NOT FASTINGPERFORMED BY: [facility]6370 [facility] [id number] Platelets 212 {x10E3/uL} (Normal) Range: 150-379 RDW 13.9 % (Normal) Range: 12.3-15.4 MCHC 33.7 g/dL (Normal) Range: 31.5-35.7 MCH 30.8 pg (Normal) Range: 26.6-33.0 MCV 91 fL (Normal) Range: 79-97 Hematocrit 40.3 % (Normal) Range: 34.0-46.6 Hemoglobin 13.6 g/dL (Normal) Range: 11.1-15.9 RBC 4.42 {x10E6/uL} (Normal) Range: 3.77-5.28 WBC 4.8 {x10E3/uL} (Normal) Range: 3.4-10.8 13-Hpx-534481:12 BIBIANA (ANTINUCLEAR ANTIBODY) Comments: PATIENT NOT FASTINGPERFORMED BY: [facility]6370 [facility] [id number] ([id number]) BIBIANA Direct Negative (Normal) 43-Jck-825445:08 Miscellaneous Lab Procedure Comments: Comments: [id number] TRANGLUTAMINASE SER FZTest(s) Ordered: [id number] TRANGLUTAMINASE SER [facility] Ktqjireyzv[address] [place], [address] [facility] [place]: TEST RESULT LIMITSTransglutaminase [...] of the TransglutaminaseIgM assay was validated by [facility]. [place] FDA has not approved or cleared this test. Th e resultsof this assay can be used for clinical diagnosis withoutFDA approval. [facility]. is a CLIAcertified, CAP accredited laboratory for performing highcomplexity assays such as this o ne.Tragl IgA < 1.2 U/mL 0.0 - 4.0 Reference Range Negative < 4.0 U/mL Weak Positive 4.0 - 10.0 U/mL Positive > 10.0 U/mLComment_ TESTING PERFORMED AT [facility]. ORIGINAL REPORT ON FILE IN LAB CONTAINS ADDITIONAL TEST SITE INFORMATION. 96-Plf-665672:30 CBC-Complete Blood Cnt No Diff Comments: [facility] Cjtrhyphys3720 [address] [place], [place], [id number] MPV 9.8 fL (Normal) Range: 6.2-12.0 PLT [...] 4.2-5.4 WBC 6.0 K/mm3 (Normal) Range: 4.4-11.0 77-Vtx-533234:30 Endomysial Antibody IgA Comments: [facility] (refer to report for specific site)refer to report for address and phone number ENDOMYSIAL IGA Negative (Normal) 25-Pzo-591184:30 Thyroglobulin Antibody Comments: [facility] (refer to report for specific site)refer to report for address and phone number TG AB 1.1 {IU/mL} (Abnormal) Range: 0.0-0.9 Comments: Thyroglobulin Antibody measured by Jaz CoulterMethodologyPerformed at: - [facility] [address] [id number] Director: Joaquim Barrett PhD, Phone: [phone] :23 CBC-Complete Blood Cnt No Diff Comments: [facility] R[address] [place], [address] MPV 9.5 fL (Normal) Range: 6.2-12.0 [...] K/mm3 (Abnormal) Range: 4.4-11.0 :23 Magnesium Comments: [facility] [address]qon[address] [place], [id number] MG 2.3 mg/dL (Normal) Range: 1.6-2.6 :23 Microalb:Creat Ratio,Random UR Comments: [facility] Y[address] [place], [address] MALB:CREAT 5.6 {mg/g_CRE} (Normal) MICROALBUMIN,UR 5.3 mg/L (Normal) UR CREAT 95.70 mg/dL (Normal) :23 PTHIN 78.4 pg/mL (Normal) Comments: [facility] [address] [place], [address] Range: 18.4-80.1 46-Cxz-70221:23 Renal Profile Comments: [facility] Ridjtxlfun[address] [place], [id number] CO2 28.0 mmol/L (Normal) Range: 21.0-32.0 CL [...] Comments: Please note revised GLUCOSE reference range mshgansey58/02/2018. :23 Vitamin D,25 Hydroxy Comments: [facility] Carvzcsjcg[address] [place], [id number] Vitamin D 25-OH 34.7 ng/mL (Normal) Range: 29.95-100.01 Comments: Vitamin D 25(OH) Status Range Deficiency <20 ng/mL (50nmol/L) Insuffciency 20 - 30 ng/mL (50 - 75 nmol/L) Sufficiency 30 - 100 ng/mL (75 - 250 nmol/L) Toxicity >100 ng/mL (>250 nmol/L) 90-Wty-754380:19 CBC W/Diff, Automated Comments: [facility] Wqafdgsbiz[address] [place], [id number] Absolute Lymph 1.25 {X10_3/ul} (Normal) Range: 0.83-4.51 [...] 4.2-5.4 WBC 3.9 K/mm3 (Abnormal) Range: 4.4-11.0 28-Etw-017177:19 Endomysial Antibody IgA Comments: [facility] (refer to report for specific site)refer to report for address and phone number ENDOMYSIAL IGA Negative (Normal) Comments: Performed at: - [facility] [id number] Director: Joaquim Barrett PhD, Phone: [phone] 91-Ajk-716705:19 t-Transglutaminase IgA Comments: [facility] (refer to report for specific site)refer to report for address and phone number tTG IGA <2 U/mL (Normal) Range: 0-3 Comments: Negative 0 - 3 Weak Positive 4 - 10 Positive >10 Tissue Transglutaminase (tTG) has been identified as the endomysial anti gen. Studies have demonstr- ated that endomysial IgA antibodies have over 99% specificity for gluten sensitive enteropathy. 63-Zcl-637159:00 Culture, Urine Comments: [facility] Bmbtvfgwfi[address] [place], [id number] CUUR See Note (Normal) Comments: Urine CultureCulture exhibits no growth. :27 CBC-Complete Blood Cnt No Diff Comments: [facility] Lxnlycgxur[address] [place], [place], [phone] MPV 10.4 fL (Normal) Range: 6.2-12.0 PLT [...] K/mm3 (Abnormal) Range: 4.4-11.0 :27 Magnesium Comments: [facility] Msqrawtqip[address] [place], [place], [phone] MG 2.1 mg/dL (Normal) Range: 1.8-2.4 :27 Microalb:Creat Ratio,Random UR Comments: [facility] Ekqfrueqey[address] [place], [place], [phone] MALB:CREAT 4.6 {mg/g_CRE} (Normal) MICROALBUMIN,UR 8.6 mg/L (Normal) UR CREAT 188.00 mg/dL (Normal) :27 Renal Profile Comments: [facility] Afprvawqpw[address] [place], [address] CO2 27.0 mmol/L (Normal) Range: 21.0-32.0 CL [...] 7-18 GLU 94 mg/dL (Normal) Range: 70-110 42-Ssl-92669:27 Vitamin D,25 Hydroxy Comments: [facility] Oif[address]vmnhgs[address] [place], [address] Vitamin D 25-OH 57.5 ng/mL (Normal) Comments: Vitamin D 25(OH) Status Range Deficiency <20 ng/mL (50nmol/L) Insuffciency 20 - 30 ng/mL (50 - 75 nmol/L) Sufficiency 30 - 100 ng/mL (75 - 250 nmol/L) Toxicity >100 ng/mL (>250 nmol/L) 8-Gmh-827319:15 TSH (49784) Comments: PATIENT NOT FASTINGPERFORMED BY: [facility] Ikbmap2213 [facility] [place] [id number] TSH 2.900 {uIU/mL} (Normal) Range: 0.450-4.500 2-Lwt-590120:15 SED RATE ERYTHROCYTE (13484) Comments: PATIENT NOT FASTINGPERFORMED BY: [facility]6370 [facility] [id number] Sedimentation Rate-Westergren 2 mm/h (Normal) Range: 0-40 2-Ihr-972343:15 C-REACTIVE PROTEIN (06153) Comments: PATIENT NOT FASTINGPERFORMED BY: [facility]6370 [facility] [id number] C-Reactive Protein, Quant 1.4 mg/L (Normal) Range: 0.0-4.9 6-Buw-945493:15 METABOLIC PANEL, COMPREHENSIVE Comments: PATIENT NOT FASTINGPERFORMED BY: [facility]6370 [facility] [id number] (40626) ALT (SGPT) 10 [iU]/L (Normal) Range: 0-32 [...] Glucose, Serum 106 mg/dL (Abnormal) Range: 65-99 7-Jpl-787621:15 CBC W/AUTO DIFF WBC (10373) Comments: PATIENT NOT FASTINGPERFORMED BY: [facility] Jnzjlj3345 [facility] [id number] Immature Grans (Abs) 0.0 {x10E3/uL} (Normal) Range: [...] Range: 3.4-10.8 :23 CBC W/Diff, Automated Comments: [facility] [address]jhdfus[address] [place], [address] Absolute Lymph 1.81 {X10_3/ul} (Normal) Range: 0.83-4.51 [...] 4.2-5.4 WBC 4.8 K/mm3 (Normal) Range: 4.4-11.0 37-Rzd-09436:23 Comprehensive Metabolic Profil Comments: [facility] Z[address]rvdsb[address] [place], [place], [address] GAP 5 (Normal) Range: 5-15 CO2 31.0 [...] 7-18 GLU 90 mg/dL (Normal) Range: 70-110 06-Dhk-62730:23 CRP, High Sensitivity Cardiac Comments: [facility] Xwv[address]fgz[address] [place], [place], [phone] CRP HIGH SENS 2.99 mg/L (Normal) Comments: Low Relative Risk of CVD <1.0 mg/L Average Relative Risk of CVD 1.0 - 3.0 mg/L High Relative Risk of CVD >3.0 mg/L :23 Erythrocyte Sed Rate Comments: [facility] Cvionsysoy[address] [place], [place], [phone] SED RATE 2 mm/h (Normal) Range: 0-30 :55 ASPIRATION (SLIDES ONLY) See Note (Normal) Comments: [facility] Ioodmydznd[address] [place], [place], [id number] Comments: Patient: SUSANNE TORRES : 1950 (66/F) Acct Num: [id number] Phys: Trinh KRISHNAN,Keanu Unit Num: [id number] Loc: [facility] Specimen: [id number] Received: 01/23/171604 Spec Type: ASPIRATION TISSUES TISSUES: COMMENT Immediate cytologic evaluation to determine adequacy is not applicable. Correlation with clinical, radiologic findings and appropriate fol low up are necessary. CYTOLOGY GROSS Received are 12 smears labeled with the patient's name and designated per the requisition as left thyroid FNA. Submitted for staining. 01/24/17 TC:5 CPT: 39683 CYTOLOGY STUDY Slides are reviewed. The specimen [...] <signature on file> :39 T3, FREE (TRIDOTHYRONINE) (95387) Comments: PATIENT NOT FASTINGPERFORMED BY: [address] [id number] Triiodothyronine,Free,Serum 2.6 pg/mL (Normal) Range: 2.0-4.4 :39 T4, FREE (THYROXINE) (35553) Comments: PATIENT NOT FASTINGPERFORMED BY: [address] [id number] T4,Free(Direct) 1.49 ng/dL (Normal) Range: 0.82-1.77 25-Rgf-245936:39 TSH (32748) Comments: PATIENT NOT FASTINGPERFORMED BY: [address] [id number] TSH 1.970 {uIU/mL} (Normal) Range: 0.450-4.500 5-Ija-989900:31 ANTINUCLEAR ANTIBODIES DIRECT Comments: [facility] (refer to report for specific site)refer to report for address and phone number BIBIANA-DIRECT Positive (Abnormal) Comments: Performed at: [address] [id number] Director: Joaquim Barrett PhD, Phone: [phone] 8-Jvd-448257:31 CBC W/Diff, Automated Comments: [facility] [address] [place], [address] Absolute Lymph 1.15 {X10_3/ul} (Normal) [...] 4.2-5.4 WBC 4.4 K/mm3 (Normal) Range: 4.4-11.0 :31 Magnesium Comments: [facility] Bsicyrzohl[address], [address] MG 2.1 mg/dL (Normal) Range: 1.8-2.4 9-Trl-655310:31 Protein+Creatinine Ratio,Urine Comments: [facility] Hrpatoeimd[address] [place], [id number] PROT:CRE RATIO 88 {mg/g_CRE} (Normal) Range: 0-200 PROTEIN,UR.RAN. 7.2 mg/dL (Normal) UR CREAT 81.80 mg/dL (Normal) 2-Hxt-205212:31 Renal Profile Comments: [facility] Zjxvxnuffk[address] [place], [id number] CO2 25.0 mmol/L (Normal) Range: 21.0-32.0 CL [...] <126 mg/dLsuggests IMPAIRED HOMEOSTASIS per A.D.A. criteria. 9-Bya-832409:31 Vitamin D,25 Hydroxy Comments: [facility] Joebpruhhs[address] [place], [id number] Vitamin D 25-OH 48.2 ng/mL (Normal) Comments: Vitamin D 25(OH) Status Range Deficiency <20 ng/mL (50nmol/L) Insuffciency 20 - 30 ng/mL (50 - 75 nmol/L) Sufficiency 30 - 100 ng/mL (75 - 250 nmol/L) Toxicity >100 ng/mL (>250 nmol/L) 90-Glf-37854:45 Culture, Urine Comments: [facility] K[address]aj[address]deif[address] [place], [address] CUUR See Note (Normal) Comments: Urine CultureBelow infection level. ORGANISM 1: Mixed Gram Positive OrganismsColony Count <1000 96-Rbw-262829:03 CALCIFIDIOL (90648) VIT D 25 Comments: PATIENT NOT FASTINGPERFORMED BY: [facility] Qmbbgr8124 [facility] [id number] Vitamin D, 25-Hydroxy 52.3 ng/mL (Normal) Range: 30.0-100.0 Comments: Vitamin D deficiency has been defined by the [place] [facility] and an Endocrine Society practice guideline as alevel of serum 25-OH vitamin D less than 20 ng/mL (1,2).The Endocrine Society went on to further define vitamin Dinsufficiency as a level between 21 and 29 ng/mL (2).1. IOM ([place] [employer]). 2010. Dietary reference intakes for calcium and D. [place]: The National Academies Press.2. Micky MF, Jessenia [place], Katrin CAMARGO, et al. Evaluation, treatment, and prevention of vitamin D deficiency: an Endocrine Society clinical practice guideline. JCEM. 2010; 96(7):1911-30. 66-Kql-261344:03 Folate (18781) Comments: PATIENT NOT FASTINGPERFORMED BY: CB [facility] Aucpts3237 [facility] [id number] Folate (Folic Acid), Serum >20.0 ng/mL (Normal) Comments: A serum folate concentration of less than 3.1 ng/mL isconsidered to represent clinical deficiency. 47-Bxv-078691:03 VITAMIN B-12 (CYANOCOBALAMIN) Comments: PATIENT NOT FASTINGPERFORMED BY: [facility] Mmahdg7342 [facility] [place] [id number] (40713) Vitamin B12 469 pg/mL (Normal) Range: 211-946 44-Cyb-616949:03 TSH (31907) Comments: PATIENT NOT FASTINGPERFORMED BY: [facility] Zvmuzd2061 [facility] [id number] TSH 2.240 {uIU/mL} (Normal) Range: 0.450-4.500 57-Voq-085888:03 SED RATE ERYTHROCYTE (79226) Comments: PATIENT NOT FASTINGPERFORMED BY: [facility] Center[facility]ktkfs1256 [facility] [id number] Sedimentation Rate-Westergren 2 mm/h (Normal) Range: 0-40 84-Dwh-354144:03 RHEUMATOID FACTOR-QUANT (31470) Comments: PATIENT NOT FASTINGPERFORMED BY: CB [facility] Gjcmrm3548 [facility] [id number] RA Latex Turbid. 12.1 {IU/mL} (Normal) Range: 0.0-13.9 88-Swe-420068:03 METABOLIC PANEL, COMPREHENSIVE Comments: PATIENT NOT FASTINGPERFORMED BY: [facility]6370 [facility] [id number] (91804) ALT (SGPT) 15 [iU]/L (Normal) Range: 0-32 [...] mg/dL (Normal) Range: 65-99 :03 C-REACTIVE PROTEIN (88546) Comments: PATIENT NOT FASTINGPERFORMED BY: [facility]6370 [facility] [id number] C-Reactive Protein, Quant 0.4 mg/L (Normal) Range: 0.0-4.9 :03 CBC (AUTO) (42861) Comments: PATIENT NOT FASTINGPERFORMED BY: [facility] Swafxs4781 [facility] [id number] Platelets 220 {x10E3/uL} (Normal) Range: 150-379 RDW [...] ANTIBODY) Comments: PATIENT NOT FASTINGPERFORMED BY: [facility] Xruhkf2364 [facility] [id number] (22252) BIBIANA Direct Positive (Abnormal) :06 ANTINUCLEAR ANTIBODIES DIRECT Comments: CMP,CBCD FOR DR PHELPS,CBCD FOR DR Hannah (refer to report for specific site)refer to report for address and phone number BIBIANA-DIRECT Negative (Normal) Comments: Performed at: - [facility] [address] [id number] Director: Joaquim Barrett PhD, Phone: [phone] :06 CBC W/Diff, Automated Comments: CMP,CBCD FOR DR PHELPS,CBCD FOR DR [facility] Ouydaespuv6231 [address] [place], [place], [address] Absolute Lymph 1.89 {X10_3/ul} (Normal) Range: 0.83-4.51 [...] mg/dL (Normal) Range: 82-167 Comments: Performed at: [place] [id number] Director: Joaquim Barrett PhD, Phone: [phone] :06 Complement C4 Comments: CMP,CBCD FOR DR PHELPS,CBCD FOR DR Hannah (refer to report for specific site)refer to report for address and phone number COMP C4 14 mg/dL (Normal) Range: 14-44 :06 Comprehensive Metabolic Profil Comments: CMP,CBCD FOR DR LOTTnorthern navajo medical centerotoniel [facility] J[address]re[address] [place] [address], [id number] GAP 8 (Normal) Range: 5-15 CO2 30.0 [...] Range: 70-110 :06 Magnesium Comments: CMP,CBCD FOR [facility] Idozxnrgzb8635 [address] [place], [id number] MG 2.1 mg/dL (Normal) Range: 1.8-2.4 :06 Protein+Creatinine Ratio,Urine Comments: CMP,CBCD FOR [facility] Oatsahbeam9610 [address] [place] [place], [id number] PROT:CRE RATIO 128 {mg/g_CRE} (Normal) Range: 0-200 PROTEIN,UR.RAN. 13.8 mg/dL (Abnormal) UR CREAT 108.00 mg/dL (Normal) :06 Vitamin D,25 Hydroxy Comments: CMP,CBCD FOR [facility] Itaxtyoatj1573 [address] [place] [place], [id number] Vitamin D 25-OH 48.7 ng/mL (Normal) Comments: Vitamin D 25(OH) Status Range Deficiency <20 ng/mL (50nmol/L) Insuffciency 20 - 30 ng/mL (50 - 75 nmol/L) Sufficiency 30 - 100 ng/mL (75 - 250 nmol/L) Toxicity >100 ng/mL (>250 nmol/L) 7-Xvc-474856:07 Fecal Occult Blood , Office (58412) Fecal Occult Blood , Office (Inhouse) negative (Normal) :22 CBC W/Diff, Automated Comments: RENAL AND MG ARE FOR [facility] Wyzwqoruqo86[address] [place], [address] Absolute Lymph 1.92 {X10_3/ul} (Normal) [...] 4.2-5.4 WBC 4.2 K/mm3 (Abnormal) Range: 4.4-11.0 :22 Comprehensive Metabolic Profil Comments: RENAL AND MG ARE FOR DR. CLEMENSnorthern navajo medical centerotoniel [facility] [address] [place], [address] GAP 6 (Normal) Range: 5-15 CO2 31.0 [...] 7-18 GLU 87 mg/dL (Normal) Range: 70-110 58-Wcb-76964:22 Lipid Profile Comments: RENAL AND MG ARE FOR DR. Hollingsworthotoniel [facility] Gugphbqgmm2032 [address] [place], [place], [phone] VLDL 12 mg/dL (Normal) Range: 5-40 LDL [...] Comments: RENAL AND MG ARE FOR [facility] Bsziuavzju[address]04[address], [address] MG 2.1 mg/dL (Normal) Range: 1.8-2.4 :22 Phosphorus Comments: RENAL AND MG ARE FOR [facility] Vgvzxiqxvf4924 [place], [address] PHOS 2.6 mg/dL (Normal) Range: 2.5-4.9 :22 Thyroid Stim Hormone (TSH) Comments: RENAL AND MG ARE FOR [facility] Iwwmpfdxgh1588 [place], [address] TSH 2.69 {uIU/mL} (Normal) Range: 0.358-3.74 :22 Vitamin D,25 Hydroxy Comments: RENAL AND MG ARE FOR [facility] Ckmjxudbpv0022[place] [place], [address] Vitamin D 25-OH 51.1 ng/mL [...] number BIBIANA-DIRECT Positive (Abnormal) Comments: Performed at: [address] [id number] Director: Joaquim Barrett PhD, Phone: [phone] :[phone] CBC W/Diff, Automated Comments: [facility] Yrkktfshni9459 [place], [address] Absolute Lymph 1.76 {X10_3/ul} (Normal) Range: [...] (Normal) Range: 82-167 Comments: Performed at: [address] [id number] Director: Joaquim Barrett PhD, Phone: [phone] :50 Complement C4 Comments: [facility] (refer to report for specific site)refer to report for address and phone number COMP C4 15 mg/dL (Normal) Range: 14-44 :50 Comprehensive Metabolic Profil Comments: ORDERED CMP CBCD PROCRE UACDR.SHELLEY ORDERED VITD CMP BIBIANA CBCD C3 C4 MG PROCRE UADR.ENDY ORDERED [facility]ou[facility] Zgiijcbbau[address] [place], [place], [phone] GAP 5 (Normal) Range: 5-15 CO2 28.0 [...] (Normal) Range: 70-110 :50 Culture, Urine Comments: [facility] Ctouqxgeyr[address] [place], [place], [id number] CUUR See Note (Normal) Comments: Urine CultureCulture exhibits no growth. :50 Magnesium Comments: ORDERED CMP CBCD PROCRE UACDR.SHELLEY ORDERED VITD CMP BIBIANA CBCD C3 C4 MG PROCRE UADR.ENDY ORDERED [facility] Bgciegwgej8761 [place], [address] MG 2.1 mg/dL (Normal) Range: 1.8-2.4 :50 Protein+Creatinine Ratio,Urine Comments: [facility] Ilacfqevpp2147 [place], [address] PROT:CRE RATIO 161 {mg/g_CRE} (Normal) Range: 0-200 PROTEIN,UR.RAN. 10.6 mg/dL (Normal) UR CREAT 65.90 mg/dL (Normal) :50 Urinalysis, Routine (Dipstick) Comments: How was Urine Obtained? CLEAN [facility] Pdpwfahlng[address]76 [place], [address] LEUK ESTERASE 25 /ul (Abnormal) [...] Yellow (Normal) :50 Vitamin D,25 Hydroxy Comments: [facility] Abhfglbcdr0663 [place], [address] Vitamin D 25-OH 58.7 ng/mL (Normal) Comments: Vitamin D 25(OH) Status Range Deficiency <20 ng/mL (50nmol/L) Insuffciency 20 - 30 ng/mL (50 - 75 nmol/L) Sufficiency 30 - 100 ng/mL (75 - 250 nmol/L) Toxicity >100 ng/mL (>250 nmol/L) :33 Lipid Profile Comments: [facility] Bprexrazkb[address] [place], [place], [address] VLDL 18 mg/dL (Normal) Range: 5-40 LDL [...] High Risk 27-Jul-20158:33 Vitamin D,25 Hydroxy Comments: [facility] Mrdwybbmrn[address] [place], [place], [id number] Vitamin D 25-OH 43.3 ng/mL (Normal) Comments: Vitamin D 25(OH) Status Range Deficiency <20 ng/mL (50nmol/L) Insuffciency 20 - 30 ng/mL (50 - 75 nmol/L) Sufficiency 30 - 100 ng/mL (75 - 250 nmol/L) Toxicity >100 ng/mL (>250 nmol/L) 77-Egq-508300:12 EBV Acute Prof IgG / IgM Comments: [...] - Antibody Ab sentPerformed at: - [facility] [address] [id number] Director: Joaquim Barrett PhD, Phone: [phone] EB-NAg OtE91036 38.3 U/mL (Abnormal) Range: 0.0-17.9 Comments: Negative <18.0 Equivocal 18.0 - 21.9 Positive >21.9 EB-VCA [id number] 306.0 U/mL (Abnormal) Range: 0.0-17.9 Comments: Negative <18.0 Equivocal 18.0 - 21.9 Positive >21.9 EB-EA IgG 97590 <9.0 U/mL (Normal) Range: 0.0-8.9 Comments: Negative < 9.0 Equivocal 9.0 - 10.9 Positive >10.9 EB-VCA [id number] < 36.0 U/mL (Normal) Range: 0.0-35.9 Comments: Negative <36.0 Equivocal 36.0 - 43.9 Positive >43.9 :15 Immunofixation Urine Comments: PATIENT STATES FLU X'S 2 WAS DONE AT THE OFFICE BY ONE OFTHE NURSES.[facility] (refer to report for specific site)refer to report for address and phone number CLIVE Urine Comment (Normal) Comments: No monoclonality detected.Performed at: [facility] [id number] Director: Joaquim Barrett PhD, Phone: [phone] :[phone] Immunofixation, Serum Comments: PATIENT STATES FLU [...] 1776 697 mg/dL (Abnormal) Range: 700-1600 :15 [place] [employer] Comments: PATIENT STATES FLU [...] % (Normal) BETA GLOB,U 30.8 % (Normal) NMXYZ-9-QYPD,U 16.9 % (Normal) RCQJY-8-BPXW,U 1.8 % (Normal) ALBUMIN,UR 35.1 % (Normal) PROTEIN,UR 13.0 mg/dL (Normal) Range: 0.0-15.0 95-Wwr-557628:15 Protein Electroph, S Comments: PATIENT STATES FLU X'S 2 WAS DONE AT THE OFFICE BY ONE OFTHE NURSES.[facility] (refer to report for specific site)refer to report for address and phone number NOTE Comment (Normal) Comments: Protein electrophoresis scan will follow via computer,mail, or roper operator delivery. NOTE: Comment (Normal) Comments: The SPE pattern appears essentially unremarkable. Evidenceof monoclonal protein is not apparent. INTERPRETATION Comment (Normal) Comments: Protein electrophoresis scan will follow via computer,mail, or roper operator delivery. A/G RATIO 1.7 (Normal) Range: 0.7-2.0 GLOBULIN, TOTAL 2.3 g/dL (Normal) Range: 2.0-4.5 M-SPIKE (Normal) Comments: Not Observed GAMMA GLOBULIN 0.7 g/dL (Normal) Range: 0.5-1.6 BETA GLOBULIN 0.8 g/dL (Normal) Range: 0.6-1.3 ALPHA-2 GLOBUL 0.6 g/dL (Normal) Range: 0.4-1.2 ALPHA-1 GLOBUL 0.2 g/dL (Normal) Range: 0.1-0.4 ALBUMIN 3.9 g/dL (Normal) Range: 3.2-5.6 PROTEIN,TOTAL 6.2 g/dL (Normal) Range: 6.0-8.5 33-Yoc-321232:22 Rapid Flu (34177 x 2) Influenza A Ag negative (Normal) 52-Cht-355707:56 Vitamin D,25 Hydroxy Comments: [facility] [address] [place], [place], [id number] Vitamin D 25-OH 87.5 ng/mL (Normal) Comments: Vitamin D 25(OH) Status Range Deficiency <20 ng/mL (50nmol/L) Insuffciency 20 - 30 ng/mL (50 - 75 nmol/L) Sufficiency 30 - 100 ng/mL (75 - 250 nmol/L) Toxicity >100 ng/mL (>250 nmol/L) :31 CBC W/Diff, Automated Comments: [facility] [address] [place], [place], [id number] Absolute Lymph 1.68 {X10_3/ul} (Normal) Range: 0.83-4.51 [...] Range: 4.4-11.0 :31 Comprehensive Metabolic Profil Comments: [facility] [address] [place], [place], [address] GAP 3 (Abnormal) Range: 5-15 CO2 32.0 [...] (Normal) Range: 70-110 :31 Protein+Creatinine Ratio,Urine Comments: [facility] [address] [place], [place], [address] PROT:CRE RATIO 180 {mg/g_CRE} (Normal) Range: 0-200 PROTEIN,UR.RAN. 39.2 mg/dL (Abnormal) UR CREAT 218.00 mg/dL (Normal) :31 Urinalysis, Complete Comments: How was Urine Obtained? [facility], [facility] [address] [place], [address] AMORPHOUS 1+ (Normal) MUCUS, URINE 0 SEEN [...] CLARITY Sl. Cloudy (Normal) COLOR Yellow (Normal) 47-Etu-502354:20 Basic Metabolic Profile (BMP) Comments: [facility] Umnjcyjrts2418 [facility]. [place], [place], [address] GAP 6 (Normal) Range: 5-15 CO2 30.0 [...] 7-18 GLU 89 mg/dL (Normal) Range: 70-110 17-Nhv-482043:20 CBC-Complete Blood Cnt No Diff Comments: [facility] Cmwrfbwirw0771 [facility] [place], [address] MPV 9.2 fL (Normal) Range: [...] 4.2-5.4 WBC 4.7 K/mm3 (Normal) Range: 4.4-11.0 79-Qkb-430506:01 Basic Metabolic Profile (BMP) Comments: Test performed at:[facility] Arrzmzklvm3894 [facility] [place] [address] GAP 4 (Abnormal) Range: 5-15 [...] 7-18 GLU 97 mg/dL (Normal) Range: 70-110 36-Yeh-295966:01 Vitamin D,25 Hydroxy Comments: Test performed at:[facility] Gfjycuyret0640 [facility] [place] [address] Vitamin D 25-OH 22.7 ng/mL (Normal) Comments: Vitamin D 25(OH) Status Range Deficiency <20 ng/mL (50nmol/L) Insuffciency 20 - 30 ng/mL (50 - 75 nmol/L) Sufficiency 30 - 100 ng/mL (75 - 250 nmol/L) Toxicity >100 ng/mL (>250 nmol/L) :12 CBC W/Diff, Automated Comments: Test performed at:[facility] [address] [place], [place] [address] Absolute Lymph 1.39 {X10_3/ul} (Normal) Range: 0.83-4.51 [...] :12 Comprehensive Metabolic Profil Comments: Test performed at:[facility] Mzabdxzsbh7516 [facility] [place] [address] GAP 9 (Normal) Range: 5-15 [...] :52 CBC W/Diff, Automated Comments: Test performed at:[facility] Iyhpqstpcu6427 [facility] [place] [address] Absolute Lymph 1.62 {X10_3/ul} (Normal) [...] :52 Comprehensive Metabolic Profil Comments: Test performed at:[facility] [address] [place], [place] [address] GAP 6 (Normal) Range: 5-15 CO2 31.0 [...] 7-18 GLU 77 mg/dL (Normal) Range: 70-110 3-Kzy-825175:40 FENTANYL Blood Level Comments: Test performed at:[facility] [address] [address] FENTANYL BLD (Normal) Comments: Sent directly to testing facility per ordering physician.02/16/15 1622 AIXA :53 CBC W/Diff, Automated Comments: Test performed at:[facility] [address] [place], [place] [address] Absolute Lymph 1.44 {X10_3/ul} (Normal) Range: 0.83-4.51 [...] :53 Comprehensive Metabolic Profil Comments: Test performed at:[facility] [address] [facility] [place] [address] GAP 5 (Normal) Range: 5-15 [...] 70-110 :53 Lipid Profile Comments: Test performed at:[facility] [address] [facility] [place] [address] VLDL 13 mg/dL (Normal) Range: [...] 200-240 mg/dL Borderline >240 mg/dL High Risk 40-Imm-73366:53 Vitamin D,25 Hydroxy Comments: Test performed at:[facility] [address] [place] [address] Vitamin D 25-OH 27.3 ng/mL (Normal) Comments: Vitamin D 25(OH) Status Range Deficiency <20 ng/mL (50nmol/L) Insuffciency 20 - 30 ng/mL (50 - 75 nmol/L) Sufficiency 30 - 100 ng/mL (75 - 250 nmol/L) Toxicity >100 ng/mL (>250 nmol/L) 1-Zzl-329592:14 Culture, Urine Comments: Test performed at:[facility] [address] [place] [address] ; ordered by endy JACKSON See Note (Normal) Comments: Urine CultureCulture exhibits no growth. 4-Cil-519443:14 Urinalysis, Routine (Dipstick) Comments: How was Urine Obtained? CLEAN CATCHTest performed at:[facility] [address] [place] [address] LEUK ESTERASE Negative /ul (Normal) OCCULT BLOOD-UR Negative /ul (Normal) NITRITE UR Negative (Normal) UROBILI Normal mg/dL (Normal) PROT DIPSTX Negative mg/dL (Normal) pH UR 5.0 (Normal) Range: 5.0 - 8.0 SP.GR. DIPSTX 1.030 (Normal) Range: 1.002-1.030 KETONE UR Negative mg/dL (Normal) BILIRUBIN URINE Negative mg/dL (Normal) GLUCOSE, UR Normal mg/dL (Normal) CLARITY Clear (Normal) COLOR Yellow (Normal) 06-Rde-041649:19 FENTANYL Blood Level Comments: Test performed at:[facility] [address] [place] [address] FENTANYL BLD (Normal) Comments: Scanned image report available in EMR :48 CBC W/Diff, Automated Comments: Test performed at:[facility] [address] [place] [address] Absolute Lymph 2.34 {X10_3/ul} (Normal) [...] :48 Comprehensive Metabolic Profil Comments: Test performed at:[facility] [address] [place] [address] GAP 4 (Abnormal) Range: 5-15 [...] CMV Acute Antibody IgM Comments: Test performed at:[facility] Jtfpbnezmr0893 [facility]. [place] [id number] CMVIgM AB < 30.0 AU/mL (Normal) Range: 0.0-29.9 Comments: Negative <30.0 Equivocal 30.0 - 34.9 Positive >34.9A positive result is generally indicative of acuteinfection, react ivation or persistent IgM production.Performed at: - [facility] [id number] Director: Yury Cornelius PhD, Phone: [phone] :39 CMV Antibody IgG Comments: Test performed at:[facility] [address] [place] [address] CMV AB IgG < 0.60 U/mL (Normal) Range: 0.00-0.59 Comments: Negative <0.60 Equivocal 0.60 - 0.69 Positive >0.69 :39 Comprehensive Metabolic Profil Comments: Test performed at:[facility] [address] [place] [address] GAP 4 (Abnormal) Range: 5-15 [...] Prof IgG / IgM Comments: Test performed at:[facility] Q[address]brepmsg66[address] [place] [address] INTERPRETATION Comment (Normal) Comments: EBV Interpretation ChartInterpretation EBV-IgM VCA-IgG EBNA-IgG EA(D)-IgGEBV Seronegative - - - -Early Phase + - - -Acute Primary + + - +or-InfectionConvalescence/Past - + + +or-InfectionReactivated +or- + + +Infection + Antibody Present - Antibody Absent EB-NAg [id number] 36.1 U/mL (Abnormal) Range: 0.0-17.9 Comments: Negative <18.0 Equivocal 18.0 - 21.9 Positive >21.9 EB-VCA EgM03305 289.0 U/mL (Abnormal) Range: 0.0-17.9 Comments: Negative <18.0 Equivocal 18.0 - 21.9 Positive >21.9 EB-EA IgG 11437 <9.0 U/mL (Normal) Range: 0.0-8.9 Comments: Negative < 9.0 Equivocal 9.0 - 10.9 Positive >10.9 EB-VCA [id number] < 36.0 U/mL (Normal) Range: 0.0-35.9 Comments: Negative <36.0 Equivocal 36.0 - 43.9 Positive >43.9 :39 Lipid Profile Comments: Test performed at:[facility] [address] [place] [address] VLDL 11 mg/dL (Normal) Range: 5-40 [...] :39 Vitamin D,25 Hydroxy Comments: Test performed at:[facility] [address] [place] [address] Vitamin D 25-OH 36.8 ng/mL (Normal) Comments: Vitamin D 25(OH) Status Range Deficiency <20 ng/mL (50nmol/L) Insuffciency 20 - 30 ng/mL (50 - 75 nmol/L) Sufficiency 30 - 100 ng/mL (75 - 250 nmol/L) Toxicity >100 ng/mL (>250 nmol/L) 04-Zku-271970:32 URINE MICHI CULTURE-ZACHARY COL Comments: PATIENT NOT FASTINGPERFORMED BY: [facility] [id number] Information: SRC:UR [id number] COUNT ([id number]) Result 1 ENTECC (Abnormal) Comments: Enterobacter cloacae [...] S Urine Final report Culture,Comprehensi (Abnormal) ve 51-Bex-92625:50 Urinalysis, Office (10572) UA - LEUKOCYTE ESTERASE Small (Normal) UA [...] :00 BIBIANA Positive (Abnormal) Comments: Performed at: [facility] [id number] Director: Yury Cornelius PhD, Phone: [phone] :[phone] ANEX FRANCOIS-[facility] <0.2 {AI} (Normal) Range: 0.0-0.9 DIRECTOR OF PUBLIC WORKS-[facility] >8.0 {AI} (Abnormal) Range: 0.0-0.9 : ANTIJO-[facility] <0.2 {AI} (Normal) Range: 0.0-0.9 : ANTISCL-[facility] <0.2 {AI} (Normal) Range: 0.0-0.9 : C3 108 (Normal) Range: 90-180 Comments: Result Units: mg/dL AdultPerformed at: CB - [facility] [address] [id number] Director: Yury Cornelius PhD, Phone: [phone] : C4 15 (Normal) Range: 9-36 Comments: Result Units: mg/dL Adult : CBCD ALC 1.40 {X10_3/ul} (Normal) Range: 0.83-4.51 [...] :00 CENTB <0.2 {AI} (Normal) Range: 0.0-0.9 : [...] Comments: Negative <5Equivocal 5 - 9Positive >9 :00 PROCRER tPROCRER 97 {mg/g_CRE} (Normal) Range: 0-200 PROUR 9.1 mg/dL (Normal) CREU 93.3 mg/dL (Normal) : SJ [facility] tSJ2 < 0.2 {AI} (Normal) Range: 0.0-0.9 tSJ1 < 0.2 {AI} (Normal) Range: 0.0-0.9 :00 UAC Comments: How was Urine Obtained? CLEAN [...] UCLAR Sl. Cloudy (Normal) UCOL Yellow (Normal) 7-Wob-057515:53 CUUR URC See Note (Normal) Comments: ORGANISM 1: Mixed Gram Positive OrganismsColony Count 1000-10,000MIX CONTAM Mixed Contaminants. Submit new specimen if indicated. 18-Tkx-921294:07 BIBIANA Positive (Abnormal) Comments: Performed at: - [facility] [id number] Director: Yury Cornelius PhD, Phone: [phone] 23-Jln-223385:07 CBCD ALC 1.50 {X10_3/ul} (Normal) Range: 0.83-4.51 [...] mIU/mLReactive: Consistent with immunity,greater than 9.9 mIU/mL : HEBSAG ttHEBSAG Negative (Normal) Comments: Performed at: [address] [id number] Director: Yury Cornelius PhD, Phone: [phone] at: [address] [place] [id number] Director: Rogelio Randle PhD, Phone: [phone] at: [address] [id number] Director: Murray Mabry MD, Phone: [phone] :[phone] HECAB tHECAB <0.1 {s/co_ratio} (Normal) Range: 0.0-0.9 Comments: Negative: < 0.8Indeterminate: 0.8 - 0.9Positive: > 0.9In order to reduce the incidence of a false positiveresult, the CDC recommends that all s/co ratiosbetween 1.0 and 10.9 be confirmed b y a more specificsupplemental or PCR testing. [facility] offers HCV Abw/Reflex to Verification test #[id number]. :07 HLAB27 tHLAB27 Negative (Normal) Comments: HLA-B*27 NegativeHLA Lab CLIA ID Number [id number] test was performed using PCR (Polymerase ChainReaction)/SSOP [...] :37 BID 0.21 mg/dL (Normal) Comments: Comments: gl0719; CALCIFEDOIL;PLASMA;RF Range: 0.00-0.30 :37 CBCD ALC 1.03 [...] (Abnormal) Range: 4.4-11.0 :37 CMP Comments: Comments: wi1190; CALCIFEDOIL;PLASMA;RF GAP 7 (Normal) Range: 5-15 CO2 [...] (Normal) Range: 70-110 :37 LIPID Comments: Comments: ih2860; CALCIFEDOIL;PLASMA;RF VLDL 24 mg/dL (Normal) Range: 5-40 LDL 71 mg/dL (Normal) Range: 0-130 HDL 40 mg/dL (Normal) Comments: Reference RangeHDL <40 mg/dL Low HDL CholesterolHDL >or= 60 mg/dL High HDL Cholesterol CHOL 135 mg/dL (Normal) Comments: <200 mg/dL Ythzzicwa775-107 mg/dL Borderline>240 mg/dL High Risk TRIG 122 mg/dL (Normal) Range: 0-199 Comments: Serum Triglycerides Reference IntervalNormal <150 mg/dLBorderline high 150 - 199 mg/dLHigh 200 - 499 mg/ dLVery High > or = 500 mg/dL 38-Sqr-533514:37 TSH 1.70 {uIU/mL} (Normal) Comments: Comments: xr4925; CALCIFEDOIL;PLASMA;RF Range: 0.358-3.74 85-Koe-064070:30 VITD 57.3 mg/mL (Normal) Comments: Vitamin D 25(OH) Status RangeDeficiency <20 ng/mL (50nmol/L)Insuffciency 20 - 30 ng/mL (50 - 75 nmol/L)Sufficiency 30 - 100 ng/mL (75 - 250 nmol/L)Toxicity >100 ng/mL (>250 nmol/L) :27 URINE MICHI CULTURE-ZACHARY COL Comments: PATIENT NOT FASTINGPERFORMED BY: [facility] Bkunzj1188 [facility] [id number] Information: SRC:UR [id number] COUNT ([id number]) Antimicrobial MIHEAD (Normal) Comments: S = Susceptible; [...] primarily for treating urinary tract infections. (CLSI, W113-S48,2009) Urine Final report (Abnormal) Culture,Comprehensive 79-Wjo-096706:11 Urinalysis, Office (12942) UA - LEUKOCYTE ESTERASE Trace (Normal) UA - NITRITE Negative (Normal) URINE UROBILINGN ZACHARY TIMED Normal mg/dL (Normal) UA - PROTEIN Negative mg/dL (Normal) UA - PH 6 (Abnormal) UA - BLOOD Hemolyzed Trace (Normal) UA - SPECIFIC GRAVITY 1.025 (Normal) UA - KETONES Small mg/dL (Normal) UA - BILIRUBIN Small (Normal) UA - GLUCOSE Negative (Normal) 72-Bmz-131679:28 MICHI CULTURE-OTHER (61244) Comments: PATIENT NOT FASTINGPERFORMED BY: JOHN [facility] Kxrqly8937 [address] [place] [id number] Information: SRC:FRANKLIN [id number] Result 1 RRF (Normal) Comments: Routine respiratory christ Upper Respiratory Culture Final report (Normal) : ARUNA 42 U/L (Normal) Range: 25-115 10 80-Dgc-749282:10 CBCD ANC 5.0 {X10_3/uL} (Normal) Range: 2.0-7.7 [...] U/L (Abnormal) Range: 70-290 :17 Urinalysis, Office (47065) UA - LEUKOCYTE ESTERASE Small (Normal) UA [...] Range: 16.0-45.0 19 Comments: Performed at: - [address] [id number] Director: Yury Cornelius PhD, Phone: [phone] : GOLD 194 ng/mL (Normal) Range: 8-252 19 :31 LIVER BID 0.17 mg/dL (Normal) Range: 0.00-0.30 BIT 0.50 mg/dL (Normal) Range: 0.00-1.00 ALT 134 U/L (Abnormal) Range: 12-78 ALK 111 U/L (Normal) Range: 50-136 AST 107 U/L (Abnormal) Range: 15-37 ALB 3.8 g/dL (Normal) Range: 3.4-5.0 TPROT 6.7 g/dL (Normal) Range: 6.4-8.2 :08 URINE MICHI CULTURE-ZACHARY COL Comments: PATIENT NOT FASTINGPERFORMED BY: [facility] [address] [id number] Information: SRC:UR [id number] COUNT (97311) Antimicrobial MIHEAD (Normal) Comments: S = Susceptible; [...] Final report Culture,Comprehensive (Normal) :55 Urinalysis, Office (12297) UA - BILIRUBIN Negative (Normal) UA - BLOOD Negative (Normal) UA - GLUCOSE Negative (Normal) UA - KETONES Negative mg/dL (Normal) UA - LEUKOCYTE ESTERASE Trace (Normal) UA - NITRITE Negative (Normal) UA - PH 5.0 (Normal) Comments: 5.5 UA - PROTEIN Negative mg/dL (Normal) UA - SPECIFIC GRAVITY 1.025 (Normal) Comments: > 1.030 URINE UROBILINGN ZACHARY TIMED Normal mg/dL (Normal) 65-Shp-530643:50 CHEST WITHOUT CONTRAST Radiology Report See Note [...] Payan M.D.December 29, 2012 at 4:08:08 PM [id number] ly Signed GP/GP If you are the referring physician and would like to consult with theradiologist who provided this interpretation, please contact Nicolas Boyer at [phone]. If this radiolo gist is unavailable, youwill be directed to another radiologist to assist. If you are a patient with a question regarding this report, pleasecontactyour referring physician directly. Professional Interp retation Provided By: [employer], Phone , These documents contain legally protected [...] IMPORTSign by Bayron Payan MD on 12/29/12 161 Sign by: Bayron Payan MD 39-Xas-06257:46 LIVER Radiology Report See Note (Normal) Comments: PROCEDURE: ABDOMINAL ULTRASOUND - RIGHT UPPER QUADRANT REASON FOR VISIT: Female, 62 years old. Elevated liver functiontests. TECHNIQUE: Ultrasound evaluation of the right upper quadrant [facility] with real-time and static fairchild-scale imaging. TECHNICAL [...] size of the right kidney. The right lfuuzvlodunxty11.1 cm. Normal renal cortex. The right cortex measure s 0.9 cm. Thereisa 1.5 cm x 1.7 cm by 1.1-cm cyst along the medial portion of the kidney.There is no right hydronephrosis. IMPRESSION:Small right renal cyst. Signed:Bayron Payan M.D.December 16, 2012 at 10:11:37 AM [id number] Signed GP/GP If you are the referring physician and would like to consult with theradiologist who provided this interpretation, please contact Anish brewer M.D. at [phone]. If this radiologist is unavailable, youwill be directed to another radiologist to assist. If you are a patient with a question regarding this report, pleasecontactyour referr ing physician directly. Professional Interpretation Provided By: [employer], Phone , These documents contain legally protected [...] 12/16/12 1014 Sign by: Bayron Payan MD 19-Lot-429728:17 EBGM EBNA > 8.0 {AI} (Abnormal) Range: 0.0-0.8 Comments: Negative <0.9Equivocal 0.9 - 1.0Positive >1.0 tEBINT Comment (Normal) Comments: EBV Interpretation Chart.Interpretation VCA-IgM EA-IgG VCA-IgG NA-ABS.Susceptible - - - -Acute Infection + +or- +or- -Convalescent Phas e +or- +or- + +Chronic or Reactivated - + + +or-Old Infection - - +or- ++ Antibody Present - Antibody AbsentPerformed at: [facility] [id number] Director: Yury Cornelius PhD, Phone: [phone] EBVG > 8.0 {AI} (Abnormal) Range: 0.0-0.8 Comments: Negative <0.9Equivocal 0.9 - 1.0Positive >1.0 EBEAG <0.2 {AI} (Normal) Range: 0.0-0.8 Comments: Negative <0.9Equivocal 0.9 - 1.0Positive >1.0 EBVM < 0.2 {AI} (Normal) Range: 0.0-0.8 Comments: Negative <0.9Equivocal 0.9 - 1.0Positive >1.0 26-Qqg-428565:17 HEABC tHEPCCOMM Comment (Normal) Comments: Non reactive [...] (Normal) ttHEBSAG Negative (Normal) HEAM Negative (Normal) 83-Okp-972891:17 LIVER BID 0.12 mg/dL (Normal) Range: 0.00-0.30 BIT 0.40 mg/dL (Normal) Range: 0.00-1.00 ALT 182 U/L (Abnormal) Range: 12-78 ALK 122 U/L (Normal) Range: 50-136 AST 121 U/L (Abnormal) Range: 15-37 ALB 4.1 g/dL (Normal) Range: 3.4-5.0 TPROT 7.3 g/dL (Normal) Range: 6.4-8.2 59-Ysz-354694:17 TSH 1.08 {uIU/mL} (Normal) Range: 0.358-3.74 27-Jun-20128:46 [...] Signed:Clark D.O.June 27, 2012 at 5:23:04 PM [id number] Signed DL/DL If you are the referring physician and would like to consult with theradiologist who provided this interpretati on, please contact Mone Lazo at [phone]. If this radiologist is unavailable, you will bedirected to another radiologist to assist. If you are a patient with a question regarding this report , pleasecontactyour referring physician directly. Professional Interpretation Provided By: [employer], Phone , These documents contain legally protected [...] destructionofthese documents. Dictated on 01/30 0901 by Molly Epperson DOeTranscribed on 06/27/127 by ITS IMPORTSign by Kamilla Epperson DO on 06/27/121727 Sign by: Kamilla Epperson DO 9-Pil-089244:41 DEXA BONE DENSITY STUDY (HP) Radiology Report [...] Payan M.D.June 26, 2012 at 11:52:03 AM [id number] Signed GP/GP If you are the referring physician and would like to consult with theradiologist who provided this interpretation, please contact Nicolas Boyer at [phone]. If this radiologist is unavailable, youwill be directed to another radiologist to assist. If you are a patient with a question regarding this report, pleasecontactyour referring physician directly. Professional Interpretation Provided By: [employer], Phone , These documents contain lega lly [...] documents. Dictated on 06/26/12 1103 by Schuyler KRISHNAN,Patriciaribed on 06/26/12 1231 by ITS IMPORTSign by Bayron Payan MD on 06/26/12 1232 Sign by: Bayron Payan MD 71-Ltb-275386:08 T4, FREE (THYROXINE) Comments: PATIENT NOT FASTINGPERFORMED BY: [facility] [id number] Information: [id number] (85212) T4,Free(Direct) 1.34 ng/dL (Normal) Range: 0.82-1.77 :08 T3, FREE (TRIDOTHYRONINE) (38119) Comments: PATIENT NOT FASTINGPERFORMED BY: [facility] CenterDdraah9619 [facility] [id number] Triiodothyronine,Free,Serum 2.7 pg/mL (Normal) Range: 2.0-4.4 :08 TSH (55353) Comments: PATIENT NOT FASTINGPERFORMED BY: [facility] CenterXbhphj5045 [facility] [id number] TSH 1.370 {uIU/mL} (Normal) Range: 0.450-4.500 :58 [...] D deficiency has been defined by the [place] of[place] and an Endocrine Society practice guideline as alevel of serum 25-OH vitamin D less than 20 ng/mL (1,2).The Endocrine Society went on to further define vitamin Dinsufficiency as a level between 21 and 29 ng/mL (2).1. IOM ([place] [employer]). 2010. Dietary reference intakes for calcium and D. [place]: The National Academies Press.2. Micky MF, Jessenia SYKES, Katrin CAMARGO, et al. Evaluation, treatment, and prevention of vitamin D deficiency: an Endocrine Society clinical practice guideline. JCEM. 2010; 96(7): 1911-30.Performed at: [address] [id number] Director: Yury Cornelius PhD, Phone: [phone] 22-Dec-20110:00 CHEST WITHOUT CONTRAST Radiology Report See [...] Signed BP/ BP Professional Interpretation Provided By: [facility], , To consult with a radiologist regarding this report, please call our [id number] juanita jacqueline @ Dictated on 12/22/11 1022 by Luis [...] :36 VITD 74.9 ng/mL (Normal) Comments: appt /*15/12 Range: 30.0-100.0 Comments: Vitamin D deficiency has been defined by the [place] [facility] and an Endocrine Society practice guideline as alevel of serum 25-OH vitamin D less than 20 ng/mL (1,2).The Endocrine Society went on to further define vitamin Dinsufficiency as a level between 21 and 29 ng/mL (2).1. IOM ([place] [employer]). 2010. Dietary reference intakes for calcium and D. [place]: The National Academies Press.2. Micky SO, Jessenia SYKES, Katrin CAMARGO, et al. Evaluation, treatment, and prevention of vitamin D deficiency: an Endocrine Society clinical practice guideline. JCEM. 2010; 96(5): 1911-30.Performed at: [address], [place], [place] [id number] Director: Alma Rodríguez MD, Phone: [phone] :[phone] CBCD,SMEAR DIFF RED CELL MORPH SeeNote [...] mg/dL (Normal) Range: 70-110 :47 VIT D,25 88910 81.4 ng/mL (Normal) Range: 30.0-100.0 Comments: Vitamin D deficiency has been defined by the [place] [employer] and an Endocrine Society practice guideline as alevel of serum 25-OH vitamin D less than 20 ng/mL (1,2).The Endocrine Society went on to further define vitamin Dinsufficiency as a level between 21 and 29 ng/mL (2).1. IOM ([place] [employer]). 2011. Dietary reference intakes for calcium and D. [place]: The National Academies Press.2. Micky MF, Jessenia [place], Ana Paula-Trino CAMARGO, et al. Evaluation, treatment, and prevention of vitamin D deficiency: an Endocrine Society clinical practice guideline. JCEM. 2010; 96(7): 1911-30. Please note reference interval changePerformed at: [address] [id number] Director: Alma Rodríguez MD, Phone: [phone] 60-Tic-981261:11 CHEST WITHOUT CONTRAST Radiology Report See Note [...] ITS IMPORTSign by RAY JON MD on 120 Sign by: RAY JON MD :49 LIPID [...] 02/16/11 1124 by Sarahi Valera MDyTranscribed on 02/16/111203 by ITS IMPORTSign by Luz Valera MD on 02/16/111204 Sign by: Luz Valera MD [...] SED RATE 11 mm/h (Normal) Range: 0-30 32-Mkv-67355:46 RIBS UNIL 2V NO CXR Radiology Report [...] >240 mg/dL High Risk :18 VIT D,25 21306 78.0 ng/mL (Normal) Comments: appt 11/14/10 Range: 32.0-100.0 Comments: Recent studies consider the lower limit of 32.0 ng/mL to bradley threshold for optimal health.William VIVAR. J Nutr. 2004;135(2):317-22.Performed at: - [facility] [address] [address]Lab Director: Alma Rodríguez MD, Phone: [phone] :[phone] COMP METABOLIC GAP 9 (Normal) Range: [...] >240 mg/dL High Risk :19 VIT D,25 99618 55.3 ng/mL (Normal) Range: 32.0-100.0 Comments: Recent studies consider the lower limit of 32.0 ng/mL to bradley threshold for optimal health.William VIVAR. J Nutr. 2004;135(2):317-22.Performed at: [place] [address]Lab Director: Alma Rodríguez MD, Phone: [phone] 88-Jpv-45542:00 BILAT SCRN DIGITAL & CAD Radiology Report [...] COLUNGA MCKESSONSign by SLOANE TRIVEDI on 06/14/10 1889 Sign by: SLOANE TRIVEDI 57-Zeo-95245:57 COMP METABOLIC ALK P 82 U/L (Normal) [...] CHOL 204 mg/dL (Abnormal) Comments: <200 mg/dL Rghdcixgp295-085 mg/dL Borderline>240 mg/dL High Risk HDL 48 mg/dL (Normal) Comments: Reference RangeHDL <40 mg/dL Low HDL CholesterolHDL >or= 60 mg/dL High HDL Cholesterol LDL 136 mg/dL (Abnormal) Range: 0-130 TRIG 102 mg/dL (Normal) Comments: Serum Triglycerides Reference IntervalNormal <150 mg/dLBorderline high 150 - 199 mg/dLHigh 200 - 499 mg/ dLVery High > or = 500 mg/dL :57 VIT D,25 37917 53.8 ng/mL (Normal) Range: 32.0-100.0 Comments: Recent studies consider the lower limit of 32.0 ng/mL to bradley threshold for optimal health.William VIVAR. J Nutr. 2004;135(2):317-22.Performed at: [facility] [place] [address]Lab Director: Alma Rodríguez MD, Phone: [phone] :[phone] LIPID HDL 49 mg/dL (Normal) Comments: [...] CHOL 190 mg/dL (Normal) Comments: <200 mg/dL Qnexmcwvw617-711 mg/dL Borderline>240 mg/dL High Risk :13 LIVER ALB 3.6 g/dL (Normal) Range: 3.4-5.0 ALK P 92 U/L (Normal) Range: 50-136 ALT 21 U/L (Normal) Range: 12-78 AST 15 U/L (Normal) Range: 15-37 D BILI 0.13 mg/dL (Normal) Range: 0.00-0.30 T BILI 0.50 mg/dL (Normal) Range: 0.00-1.00 T PROT 6.9 g/dL (Normal) Range: 6.4-8.2 :13 VIT D,25 66816 36.7 ng/mL (Normal) Range: 32.0-100.0 Comments: Recent studies consider the lower limit of 32.0 ng/mL to bradley threshold for optimal health.William VIVAR. J Nutr. 2004;135(2):317-22.Performed at: [address] [id number] Director: Milan Torres MD 3-Ugs-662735:43 ABDOMEN/PELVIS WITH CONTRAST Radiology Report See Note (Normal) Comments: Exam Number: [id number] CLINICAL:Abdominal pain. CT ABDOMEN AND PELVIS WITH [...] significant spondylolisthesis. Reported By: LUZ VALERA M.D. 08-Kba-07401:14 CBCD,SMEAR DIFF BAND 2 % (Normal) Range: [...] 47-70 WBC 3.5 K/mm3 (Abnormal) Range: 4.4-11.0 46-Bcl-57251:14 COMP METABOLIC A/G 1.3 {RATIO} (Normal) Range: [...] {uIU/mL} (Normal) Range: 0.358-3.74 :14 VIT D,25 47131 38.9 ng/mL (Normal) Range: 32.0-100.0 Comments: Recent studies consider the lower limit of 32.0 ng/mL to bradley threshold for optimal health.William VIVAR. J Nutr. 2004;135(2):317-22.Performed At: [facility] [place], [place] [id number] :10 C-REACTIVE PROT 40.70 mg/L (Abnormal) Range: 0.0-3.0 Comments: C-Reactive Protein (CRP) provides useful information for thediagnosis, therapy and monitoring of inflammatory processesand associated diseases. For the evaluation of Relative Riskfor Cardiovascular Dise ase, a High Sensitivity CRP (HSCRP)should be ordered. :10 ESR SED RATE 50 (Abnormal) Range: 0-20 :03 Urinalysis, Office (46529) UA - BILIRUBIN Negative (Normal) UA - [...] $$$ <=4 S TRIMETHOPRIM/SULFAMETHOXAZO $ >=320 R 31-Yvh-73590:41 BILAT SCRN DIGITAL & CAD Radiology Report See Note (Normal) Comments: Exam Number: [id number] MAMMOGRAM, BILATERAL SCREENING DIGITAL AND CAD HISTORYRoutine [...] mammograms werealso examined with computer-aided detection software ([employer], [employer] Reported By: SLOANE TRIVEDI M.D. :55 [...] - 9.1 <0.2 Postmenopausal 23.0 - 116.3 71-Xcd-083493:22 LUTEIN HOR 4283 15.8 m[iU]/mL (Normal) Range: [...] 15.9 - 54.0 Contraceptives 0.7 - 5.6 13-Sda-478499:22 PROLACTIN 4465 10.3 ng/mL (Normal) Range: 2.8-29.2 [...] 208.5 Postmenopausal 1.8 - 20.3Per formed At: [facility] [place], [place] [id number] 79-Gno-118877:22 ROUTINE UA BILIRUBIN URINE SeeNote (Normal) Comments: [...] Report See Note (Normal) Comments: Exam Number: [id number] CLINICAL: Headaches, memory loss MRI BRAIN WITH [...] a demonstrated aneurysm or occlusion of the [place]. There is no extra-axial fluid [...] {uIU/mL} (Normal) Range: 0.34-4.82 :08 VIT D,25 51618 38.2 ng/mL (Normal) Range: 32.0-100.0 Comments: Recent studies consider the lower limit of 32.0 ng/mL to bradley threshold for optimal health.William VIVAR. J Nutr. 2004;135(2):317-22.Performed At: [facility] [place], [place] [id number] :08 VITAMIN B12 316 pg/mL (Normal) Range: 211-911 :52 BRAIN/HEAD WITHOUT CONTRAST Radiology Report See Note (Normal) Comments: Exam Number: [id number] CLINICAL:58 year old female with 39 year [...] further evaluation. Reported By: SLOANE VARGAS M.D. 01-Dib-132461:49 KIDNEY (HP) Radiology Report See Note (Normal) Comments: Exam Number: [id number] CLINICAL:Renal insufficiency RENAL ULTRASOUND COMPARISON:None. FINDINGS: The [...] 3.5-5.1 NA 141 mmol/L (Normal) Range: 136-145 48-Apv-477682:25 CHEST, PA AND LATERAL (MT) Radiology Report See Note (Normal) Comments: Exam Number: [id number] CHEST PA AND LATERAL STATEMENTLeft sided rib [...] Comments: GLU,2HPPG 75gm GLUC PPG GLUP from 0606:P22346U. Comments: Glucose result less than 50 mg/dL [...] 6.7 g/dL (Normal) Range: 6.4-8.2 :42 EBVIgG/M 517872 EB-EA IgG 01776 143 AU/mL (Abnormal) Range: 0-99 Comments: Negative <100 Equivocal 100 - 120 Positive >120 EB-NAg [id number] 1871 AU/mL (Abnormal) Range: 0-99 Comments: Negative <100 Equivocal 100 - 120 Positive >120 EB-VCA [id number] 3769 AU/mL (Abnormal) Range: 0-99 Comments: Negative <100 Equivocal 100 - 120 Positive >120 EB-VCA [id number] 13 AU/mL (Normal) Range: 0-99 Comments: Negative [...] + Antibody Present - Antibody AbsentPerformed At: [facility] [place], [place] [id number] :42 ROUTINE UA BILIRUBIN URINE SeeNote (Normal) [...] Report See Note (Normal) Comments: Exam Number: [id number] MAMMOGRAM, BILATERAL SCREENING DIGITAL AND CAD HISTORYRoutine [...] werealso examined with computer-aided detection softw are ([employer] Reported By: SLOANE TRIVEDI M.D. 8-Htv-911670:34 BIBIANA-D 253934 BIBIANA-DIRECT 51 AU/mL (Normal) Range: 0-99 Comments: [...] {IU/mL} (Normal) Range: 0.0-13.9 Comments: Performed At: [address] [id number] :34 TSH 2.12 {uIU/mL} (Normal) Range: 0.34-4.82 [...] $$$ <=16 S TRIMETHOPRIM/SULFAMETHOXAZ $$ <=10 S 04-Lkj-547797:08 ROUTINE UA BILIRUBIN URINE SeeNote (Normal) Comments: [...] 0.2 EU/dl (Normal) Range: 0.2 - 1.0 45-Zgw-614511:45 CULTURE, URINE URINE CULTURE See Note {CFU/mL} [...] Indication: Migraine Planned Observations T4, FREE (THYROXINE) (03745)Indication: Thyroid nodule On: Request T3, FREE (TRIDOTHYRONINE) (21917)Indication: Thyroid nodule On: Request TSH (67920)Indication: Thyroid nodule On: Request CBC W/AUTO DIFF WBC (11346)Indication: Mixed hyperlipidemia On: Request METABOLIC PANEL, COMPREHENSIVE (33889)Indication: Mixed hyperlipidemia On: Request LIPOPROTEIN, BLD, BY NMR (14882)Indication: Mixed hyperlipidemia On: Request CALCIFEDIOL (25055)Indication: Vitamin D deficiency, unspecified On: Request C-REACT PROT HIGH SENS(hsCRP) (19199)Indication: Pain in unspecified joint On: Request Sedimentation Rate-ESR (85959)Indication: Pain in unspecified joint On: Request Metabolic Panel, Comprehensive (97106)Indication: Pain in unspecified joint On: Request CBC (Auto) (28293)Indication: Pain in unspecified joint On: Request FECAL OCCULT- Tubes sent home (78835)Indication: Encounter for screening for malignant neoplasm of colon (Renamed from Special screening for malignant neoplasms, colon) On: 9-Tzx-946237:14 Request CBC WITH MANUAL DIFF (34309)Indication: Abnormal WBC count On: 61-Lhg-030284:12 Request METABOLIC PANEL, COMPREHENSIVE (60090)Indication: Mixed hyperlipidemia On: :15 Request CBC W/AUTO DIFF WBC (82454)Indication: Mixed hyperlipidemia On: :15 Request LIPID PANEL (73765)Indication: Mixed hyperlipidemia On: :15 Request TSH (89364)Indication: Anxiety On: :15 Request CALCIFIDIOL (09995) VIT D 25Indication: Vitamin D deficiency, unspecified On: :15 Request CALCIFEDIOL (14396)Indication: Vitamin D deficiency, unspecified On: 20-Sep-20159:12 Request EBV Panel (55353)Indication: Fatigue On: 83-Hou-462399:51 Request SPEP (09860)Indication: Abnormal CBC On: 93-Kik-801491:43 Request UPEP (68011)Indication: Abnormal CBC On: 23-Neb-941685:30 Request serum free light chains (25259)Indication: Abnormal CBC On: 11-Gze-175662:29 Request urine immunofixation (04247)Indication: Abnormal CBC On: 90-Htt-974524:29 Request serum immunofixation (45153)Indication: Abnormal CBC On: 57-Zhe-312162:29 Request LIPID PANEL (45506)Indication: Mixed hyperlipidemia On: 72-Mvi-253521:46 Request CALCIFIDIOL (52785) VIT D 25Indication: Vitamin D deficiency, unspecified On: 40-Qxs-535736:41 Request METABOLIC PANEL, COMPREHENSIVE (02865)Indication: Mixed hyperlipidemia On: :12 Request LIPID PANEL (40423)Indication: Mixed hyperlipidemia On: :12 Request CBC WITH MANUAL DIFF (79130)Indication: postmenopausal without estrogen On: :02 Request METABOLIC PANEL, COMPREHENSIVE (02566)Indication: postmenopausal without estrogen On: 32-Uup-225901:02 Request CALCIFIDIOL (26577) VIT D 25Indication: Vitamin D deficiency, unspecified On: :01 Request CALCIFEDIOL (05793)Indication: Vitamin D deficiency, unspecified On: :26 Request CBC WITH MANUAL DIFF (20545)Indication: Mixed hyperlipidemia On: :26 Request Metabolic Panel, Comprehensive (30088)Indication: Mixed hyperlipidemia On: :26 Request Lipid Panel (14636)Indication: Mixed hyperlipidemia On: :26 Request METABOLIC PANEL, COMPREHENSIVE (34343)Indication: Mixed hyperlipidemia On: :47 Request LIPID PANEL (40015)Indication: Mixed hyperlipidemia On: :47 Request CALCIFIDIOL (66649) VIT D 25Indication: Vitamin D deficiency, unspecified On: :47 Request EBV Panel (63611)Indication: Hepatitis On: :38 Request CMV IGM ANTBDY (25722)Indication: Hepatitis On: :38 Request CMV ANTIBODY (10036)Indication: Hepatitis On: :38 Request CALCIFEDIOL (87720)Indication: Mixed hyperlipidemia On: 32-Aap-903933:56 Request CBC with manual diff (42994)Indication: Mixed hyperlipidemia On: :56 Request Metabolic Panel, Comprehensive (77407)Indication: Mixed hyperlipidemia On: :56 Request TSH (THYROID STIMULATING HORMONE) (26918)Indication: Mixed hyperlipidemia On: :56 Request LIPID PANEL (40055)Indication: Mixed hyperlipidemia On: :55 Request HEPATIC FUNCTION PANEL (94618)Indication: Mixed hyperlipidemia On: 92-Dgd-133538:55 Request HEPATIC FUNCTION PANEL (29129)Indication: Unspecified Diagnosis On: 80-Ixt-353031:25 Request Rapid Strep Test, Office (04676)Indication: Pharyngitis, acute On: 03-Mtj-358389:05 Request Metabolic Panel, Comprehensive (64496)Indication: Epigastric Pain (Renamed from Abdominal pain, epigastric) On: 42-Mgs-377272:24 Request Comments: labs stat. Lipase (75638)Indication: Epigastric Pain (Renamed from Abdominal pain, epigastric) On: 34-Pwl-688394:24 Request Amylase (01934)Indication: Epigastric Pain (Renamed from Abdominal pain, epigastric) On: 09-Utj-087450:24 Request CBC, Platelets & Auto Diff (51152)Indication: Epigastric Pain (Renamed from Abdominal pain, epigastric) On: 08-Ovr-499631:24 Request URINE MICHI CULTURE-IDENTIFICATN (77833)Indication: Hematuria (Renamed from Blood in the urine) On: 70-Jtn-648551:23 Request ASM (ANTI SMOOTH MUSCLE ANTIBODY) (23710)Indication: Abnormal finding of blood chemistry, unspecified On: :26 Request CERULOPLASMIN (58683)Indication: Abnormal finding of blood chemistry, unspecified On: : Request FERRITIN (13951)Indication: Abnormal finding of blood chemistry, unspecified On: 60-Lqi-047995:26 Request HEPATIC FUNCTION PANEL (09023)Indication: Mixed hyperlipidemia On: 12-Gqs-847718:47 Request HEPATIC FUNCTION PANEL (04897)Indication: Abnormal finding of blood chemistry, unspecified On: 71-Roc-453722:17 Request Comments: 1 week HEPATIC FUNCTION PANEL (18910)Indication: Migraine On: 51-Xnl-051086:26 Request TSH (81652)Indication: Migraine On: 88-Jnp-072429:26 Request HEPATITIS PANEL (78438)Indication: Abnormal finding of blood chemistry, unspecified On: 76-Wlc-737349:25 Request EBV Panel (07085)Indication: Abnormal finding of blood chemistry, unspecified On: :24 Request Vitamin D Hydroxy (43450)Indication: Vitamin D deficiency, unspecified On: :42 Request CBC WITH MANUAL DIFF (24158)Indication: Irritable bowel syndrome On: :42 Request METABOLIC PANEL, COMPREHENSIVE (59769)Indication: Irritable bowel syndrome On: :42 Request LIPID PANEL (58179)Indication: Mixed hyperlipidemia On: :42 Request CALCIFEDIOL (83900)Indication: Vitamin D deficiency, unspecified On: :06 Request CBC with manual diff (19207)Indication: Mixed hyperlipidemia On: :06 Request Lipid Panel (76350)Indication: Mixed hyperlipidemia On: :06 Request Metabolic Panel, Comprehensive (34860)Indication: Mixed hyperlipidemia On: :06 Request Vitamin D Hydroxy (93441)Indication: Vitamin D deficiency, unspecified On: :17 Request CBC WITH MANUAL DIFF (19091)Indication: Lung nodule On: :17 Request METABOLIC PANEL, COMPREHENSIVE (59340)Indication: Irritable bowel syndrome On: :17 Request LIPID PANEL (47957)Indication: Mixed hyperlipidemia On: 47-Whz-056134:07 Request C-REACTIVE PROTEIN (60076)Indication: Chest pain On: :20 Request SED RATE ERYTHROCYTE (91481)Indication: Chest pain On: :20 Request METABOLIC PANEL, COMPREHENSIVE (41389)Indication: Chest pain On: :20 Request CBC WITH MANUAL DIFF (00482)Indication: Chest pain On: :20 Request D-Dimer (03315)Indication: Chest pain On: :20 Request Comments: stat METABOLIC PANEL, COMPREHENSIVE (94498)Indication: Osteopenia On: 19-Uyu-559137:00 Request TSH (14016)Indication: Depressive disorder On: 36-Fhk-240933:58 Request LIPID PANEL (76180)Indication: Mixed hyperlipidemia On: 54-Orp-359263:57 Request Vitamin D Hydroxy (95904)Indication: Vitamin D deficiency, unspecified On: 24-Oar-988505:57 Request Metabolic Panel, Comprehensive (89242)Indication: Hypopotassemia On: 20-Sgr-852486:58 Request CALCIFEDIOL (88216)Indication: Vitamin D deficiency, unspecified On: 46-Kpk-965810:58 Request Lipid Panel (85258)Indication: Mixed hyperlipidemia On: :57 Request METABOLIC PANEL, COMPREHENSIVE (41485)Indication: Migraine On: 97-Thm-626578:53 Request LIPID PANEL (00824)Indication: Mixed hyperlipidemia On: 50-Rix-309024:53 Request Vitamin D Hydroxy (35253)Indication: Vitamin D deficiency, unspecified On: 31-Kdn-522026:53 Request Vitamin D Hydroxy (56525)Indication: Vitamin D deficiency, unspecified On: 51-Mcp-454749:49 Request METABOLIC PANEL, COMPREHENSIVE (40307)Indication: Irritable bowel syndrome On: 98-Cga-176733:48 Request LIPID PANEL (32626)Indication: Mixed hyperlipidemia On: 82-Xom-625204:48 Request METABOLIC PANEL, COMPREHENSIVE (59948)Indication: Hypopotassemia On: 29-Ban-318186:56 Request LIPID PANEL (92822)Indication: Mixed hyperlipidemia On: 45-Ysv-127707:56 Request Vitamin D Hydroxy (10328)Indication: Vitamin D deficiency, unspecified On: 13-Ddg-398750:56 Request HEPATIC FUNCTION PANEL (32009)Indication: Mixed hyperlipidemia On: 31-Umu-536287:07 Request LIPID PANEL (91963)Indication: Mixed hyperlipidemia On: 29-Jsk-471812:07 Request URINE MICHI CULTURE-IDENTIFICATN (60464)Indication: Dysuria On: 1-Zkq-308761:40 Request URINALYSIS W/O MICRO (47963)Indication: Other signs and symptoms in breast On: 12-Hsd-012006:31 Request METABOLIC PANEL, COMPREHENSIVE (79515)Indication: Other signs and symptoms in breast On: 29-Nel-311610:31 Request TSH (66048)Indication: Other signs and symptoms in breast On: 75-Vzj-046244:31 Request Vitamin D Hydroxy (02387) On: 9-Tng-560437:30 Request CBC WITH MANUAL DIFF (63648) On: 9-Abc-550294:30 Request METABOLIC PANEL, COMPREHENSIVE (25056) On: 3-Rck-831531:30 Request VITAMIN B-12 (CYANOCOBALAMIN) (22476) On: 2-Eav-797155:30 Request TSH (23033) On: 5-Prr-383992:30 Request Metabolic Panel, Basic (24774) On: 20-Xsd-237400:21 Request HEPATIC FUNCTION PANEL (31515)Indication: Mixed hyperlipidemia On: :21 Request LIPID PANEL (07864)Indication: Mixed hyperlipidemia On: 58-Tri-540768:21 Request METABOLIC PANEL, COMPREHENSIVE (46578)Indication: Hypoglycemia On: 72-Vah-231845:51 Request LIPID PANEL (62876)Indication: Low HDL (under 40) On: 98-Vgk-976341:45 Request Glucose, PP/2 Hour (71922)Indication: Fatigue On: : Request VITAMIN B-12 (CYANOCOBALAMIN) (11999)Indication: Fatigue On: : Request URINALYSIS W/O MICRO (66793)Indication: Fatigue On: : Request TSH (11503)Indication: Fatigue On: : Request CBC WITH MANUAL DIFF (80000)Indication: Fatigue On: : Request METABOLIC PANEL, COMPREHENSIVE (73643)Indication: Fatigue On: : Request BIBIANA (ANTINUCLEAR ANTIBODY) (93359)Indication: Pain in unspecified joint On: Request C-REACTIVE PROTEIN (98037)Indication: Pain in unspecified joint On: Request CBC WITH MANUAL DIFF (44427)Indication: Pain in unspecified joint On: Request METABOLIC PANEL, COMPREHENSIVE (86409)Indication: Pain in unspecified joint On: Request RHEUMATOID FACTOR-QUANT (10509)Indication: Pain in unspecified joint On: Request SED RATE ERYTHROCYTE (84966)Indication: Pain in unspecified joint On: Request TSH (58373)Indication: Pain in unspecified joint On: : Request METABOLIC PANEL, COMPREHENSIVE (55097)Indication: Low HDL (under 40) On: Request LIPID PANEL (98146)Indication: Low HDL (under 40) On: : Request LIPID PANEL (09401)Indication: Low HDL (under 40) On: :41 Request HEPATIC FUNCTION PANEL (60747)Indication: Low HDL (under 40) On: 41 Request Comments: 4 mos LIPID PANEL (42660)Indication: Low HDL (under 40) On: :26 Request Comments: 3 mos HEPATIC FUNCTION PANEL (23120)Indication: Low HDL (under 40) On: :26 Request Comments: 3 mos Planned Procedures MRI BRAIN W/ CONTRAST (91036)By: On: 04-Aug-2018 Intent Rylee Gracia DO, DO, Kathleen SCREENING DIGITAL TOMOSYNTHESIS OF On: 04-Aug-2018 Intent BREAST (51624)By: Rylee Gracia DO, DO, Kathleen CXR PA & LAT (04119)By: Nii ABREU, On: 07-Jul-2018 Intent Rylee Nelson DO Flu Vaccine (Quadrivalent) 86671Sx: On: 27-May-2018 Intent Rylee Gracia DO, DO, Comments: Lot #[id number]-L dltd, IMDose prefilled syringegiven by: Nohemy reviewed and ABN signed Rylee Wax CurettesBy: Rylee Gracia DO On: 12-Feb-2018 Intent Rylee Gracia DO Ear Irrigation (44737)By: Nii On: 12-Feb-2018 Rylee Field DO, DO, Kathleen Comments: small amount of yellow was irrigated out of right ear, patient tolerated without difficulty ear wax currette used to remove remainder of wax X-RAY OF SHOULDER, TWO VIEWS On: 12-Feb-2018 Intent (14669)By: Rylee Gracia DO, DO, Kathleen ELECTROCARDIOGRAM, COMPLETE (ECG) On: 12-Feb-2018 Intent (43505)By: Rylee Gracia DO, DO, Kathleen Ultrasound - ThyroidBy: Nii ABREU, On: 30-Jan-2018 Intent Rylee Nelson DO Wax CurettesBy: Dasia Oliver On: 12-Sep-2017 Intent Ear Irrigation (45132)By: Benito, On: 12-Sep-2017 Rashida Forman X-RAY OF HAND, THREE VIEWS On: 16-Aug-2017 Intent (88142)By: Rylee Gracia DO, DO, Kathleen Radiology - Abdomen SeriesBy: On: 02-Jul-2017 Intent Rylee Gracia DO, DO, Comments: FLAT PLATE Rylee ACUTE ABDOMINAL SERIES (47964)By: On: 27-Jun-2017 Intent Rylee Gracia DO, DO, Kathleen Flu Vaccine (Quadrivalent) 40299Uh: On: 28-May-2017 Intent Nii DO, Rylee Nii DO, Comments: lot: [id number]: 01/06/18ite/route: L freddy, IMamt: 0.5mlVIS and ABN signed when applicableChelsea, ELECTRIC SWITCH TESTER Rylee SCREENING DIGITAL TOMOSYNTHESIS OF On: 28-May-2017 Intent BREAST (21461)By: Nii DO, Rylee Nii DO, Rylee THYROID ULTRASOUND (32583)By: On: 02-Jan-2017 Intent Nii DO, Rylee Nii DO, Rylee Doppler Ultrasound OtherBy: Nii On: 15-Aug-2016 Intent DO Rylee Nii DO, Rylee Comments: left lower extremity PNEUM VAC ADLT/IMUMNOSPR, SBC/INTRM On: 07-May-2016 Intent (05907)By: NiiRylee calles DO Comments: Lot:[id number]:11/24/17Dose:0.5mgRoute:imSite:r arm Given By:DORIS signed Nii DO Rylee DEXA SCAN AXIAL SKELETON (83394)By: On: 25-Apr-2016 Intent Nii DO Rylee Nii DO, Rylee MAMMOGRAM, SCREENING, BOTH BREAST On: 25-Apr-2016 Intent (07545)By: NiiRylee calles DO Nii DO, Rylee Flu Vaccine (Quadrivalent) 33095Og: On: 25-Apr-2016 Intent Hung Santos Comments: FLUlot: [id number]:01/05site:Lt deltoidroute:IMdose:.5mlDEMICK, MA DEXA SCAN AXIAL SKELETON (94182)By: On: 01-Mar-2016 Intent Nii DO Rylee Nii DO, Rylee Radiology - ChestBy: Ilsa SELLERS, On: 13-Jun-2015 Intent Marlen Phillips Flu Vaccine (Quadrivalent) 06745Tc: On: 27-Apr-2015 Intent Manda Higginbotham MD Comments: Lot:[id number]:01/19/16Dose:0.5mLRoute:IMSite:L DltdGiven By:DORIS signed MAMMOGRAM, SCREENING, BOTH BREAST On: 15-Mar-2015 Intent (57831)By: Manda Higginbotham MD ELECTROCARDIOGRAM, COMPLETE (ECG) On: 30-Dec-2014 Intent (59761)By: Rylee Gracia DO Comments: nsr no acute chg Rylee Gracia DO Prevnar 13 (69952)By: Anahy KRISHNAN, On: 03-Aug-2014 Intent Manda Torres SPECIMEN HANDLING/TRANSPORT On: 14-Jun-2014 Intent (51966)By: Ilsa SELLERS, Isabel IMMUNIZ ADMNIN, 1 VAC, SNGL/COMBO On: 03-May-2014 Intent (68273)By: Joey, Nurse FLU VAC, SPLIT, >3 YEARS, INTRAMUSC On: 03-May-2014 Intent (85507)By: Manda Higginbotham MD Comments: Lot:[id number]:01/18/15Dose:0.5mLRoute:IMSite:L DltdGiven By:DORIS signed MAMMOGRAM, SCREENING, BOTH BREAST On: 09-Feb-2014 Intent (45110)By: Manda Higginbotham MD Comments: due 07-04 DEXA SCAN AXIAL SKELETON (72725)By: On: 09-Feb-2014 Intent Manda Higginbotham MD Comments: due 07-04 Eprescribed prescriptions On: 19-Nov-2013 Intent (G8553)By: Rylee Gracia DO, DO, Kathleen Eprescribed prescriptions On: 02-Sep-2013 Intent (G8553)By: Marlen Rosenbaum CNP FLU VAC, SPLIT, >3 YEARS, INTRAMUSC On: 26-May-2013 Intent (85852)By: Manda Higginbotham MD Comments: Lot:[id number]:Dose:0.5mLRoute:IMSite:L DltdGiven By:DORIS signed IMMUNIZ ADMNIN, 1 VAC, SNGL/COMBO On: 26-May-2013 Intent (59992)By: Francesca Crystal MAMMOGRAM, SCREENING, BOTH BREASTS On: 14-May-2013 Intent (91789)By: Manda Higginbotham MD Eprescribed prescriptions On: 30-Dec-2012 Intent (G8553)By: Alaina Patricia LPN L Ultrasound - LiverBy: Fast DO, On: 10-Dec-[address] - ChestBy: Fast DO, Iwona A On: 09-Dec-2012 Intent Comments: december Eprescribed prescriptions On: 09-Dec-2012 Intent (G8553)By: Zabrina Farmer Eprescribed prescriptions On: 01-Aug-2012 Intent (G8553)By: Zabrina Farmer EKG (08790)By: Zabrina Farmer On: 10-Jun-2012 Intent Comments: ekg showed normal sinus rhythym, normal axis, no acute st/t wave changes Eprescribed prescriptions On: 10-Jun-2012 Intent (G8553)By: Fast DO, Iwona A DXA, BONE DENSITY, AXIAL SKELETON On: 10-Jun-2012 Intent (79504)By: Fast DO, Iwona A CT - ChestBy: Fast DO, Iwona A On: 10-Jun-2012 Intent Eprescribed prescriptions On: 10-Jun-2012 Intent (G8553)By: Zabrina Farmer Breast Screening - BilateralBy: On: 02-Jun-2012 Intent Fast DO, Iwona A TDAP VACCINE >7 IM (65128)By: On: 04-Dec-2011 Intent Zabrina Farmer Comments: lot [id number] 06/02, L arm IM, perfileld Alaina CT - ChestBy: Fast DO, Iwona A On: 04-Dec-2011 Intent FLU VAC, SPLIT, >3 YEARS, INTRAMUSC On: 29-May-2011 Intent (23778)By: Zabrina Farmer Comments: Lot: [id number]: 01/19/12Site: Lt DeltoidDose: Prefilled DoseARiding, INSULATION CUTTER CT - ChestBy: Fast DO, Iwona A On: 29-May-2011 Intent IMMUNIZ ADMNIN, 1 VAC, SNGL/COMBO On: 29-May-2011 Intent (28043)By: Zabrina Farmer Pulse Oximetry (57785)By: Miguel DO, On: 16-Feb-2011 Intent Iwona A Comments: 99 CT - ChestBy: Fast DO, Iwona A On: 16-Feb-2011 Intent Comments: stat-pe protocol- call wet read Radiology - ChestBy: Ilsa SELLERS, On: 06-Feb-2011 Intent Marlen Phillips Zafqfowyg-Iwk-Rckdh (67458)By: On: 06-Feb-2011 Intent Valeriesalvatoreban SELLERSMarlen Eprescribed prescriptions On: 03-Jan-2011 Intent (G8553)By: Iwona Rivera DO EKG ([id number])By: Manda Higginbotham MD On: 15-Dec-2010 Intent Eprescribed prescriptions On: 17-Nov-2010 Intent (G8553)By: Iwona Rivera DO MAMMOGRAM, SCREENING, BOTH BREASTS On: 06-Mar-2010 Intent ([id number])By: Iwona Rivera DO DXA, BONE DENSITY, AXIAL SKELETON On: 06-Mar-2010 Intent ([id number])By: Iwona Rivera DO CT - Abdomen & PelvisBy: Miguel ABREU, On: 22-Aug-2009 Intent Iwona A PNEUM VAC ADLT/IMUMNOSPR, SBC/INTRM On: 22-Apr-2009 Intent ([id number])By: Samantha Kumar RN IMMUNIZ ADMNIN, 1 VAC, SNGL/COMBO On: 22-Apr-2009 Intent ([id number])By: Samantha Kumar RN Comments: Lot #: [id number] date: mount given: 0.5 mlRoute: IMSite given: right deltoidGiven by: Ban Salas LPN IMMUNIZ ADMNIN, 1 VAC, SNGL/COMBO On: 22-Apr-2009 Intent ([id number])By: Samantha Kumar RN FLU VAC, SPLIT, >3 YEARS, INTRAMUSC On: 22-Apr-2009 Intent ([id number])By: Samantha Kumar RN Comments: Lot #: [id number] date: mount given: 0.5 mlRoute: IMSite given: left deltoidGiven by: Ban Salas LPN Pulse Oximetry ([id number])By: Wai On: 15-Apr-[address] - Brain/HeadBy: Iwona Rivera DO On: 19-Nov-2008 Intent Radiology - ChestBy: Ilsa SELLERS, On: 14-Oct-2008 Intent Marlen Phillips Pulse Oximetry ([id number])By: Ilsa On: 14-Oct-2008 Intent Marlen SELLERS Comments: done BC Aerosol Treatment ([id number])By: Ilsa On: 14-Oct-2008 Intent Marlen SELLERS Comments: done BC Spirometry ([id number])By: Darian, On: 12-Oct-2008 Intent Zabrina Comments: good effort and curve normal MAMMOGRAM, SCREENING, BOTH BREASTS On: 06-Oct-2008 Intent ([id number])By: Iwona Rivera DO Aerosol Treatment ([id number])By: Ilsa On: 08-Sep-2008 Intent Marlen SELLERS Pulse Oximetry ([id number])By: Ilsa On: 08-Sep-2008 Intent Marlen SELLERS EKG ([id number])By: Rylee Gracia DO On: 02-Jul-2008 Intent Rylee Gracia DO Comments: nsr nothing acute-- v1-v1 lead placement(female) FLU VAC, SPLIT, >3 YEARS, INTRAMUSC On: 11-Jun-2008 Intent ([id number])By: Zabrina Farmer Comments: inj given left deltoid no complicationslot:[id number]:12/28 IMMUNIZ ADMNIN, 1 VAC, SNGL/COMBO On: 11-Jun-2008 Intent ([id number])By: Zabrina Farmer EKG ([id number])By: Iwona Rivera DO On: 22-Dec-2007 Intent Comments: ekg showed normal sinus rhythym, normal axis, no acute st/t wave changes MAMMOGRAM, SCREENING, BOTH BREASTS On: 25-Aug-2007 Intent ([id number])By: Iwona Rivera DO IMMUNIZ ADMNIN, 1 VAC, SNGL/COMBO On: 23-May-2007 Intent ([id number])By: Iwona Rivera DO FLU VAC, SPLIT, >3 YEARS, INTRAMUSC On: 23-May-2007 Intent ([id number])By: Iwona Rivera DO Comments: given 0.5cc im in left deltoid lot#[id number] exp.11/27- Instructions Name Dates Details Encounter for screening mammogram for breast cancer (Renamed from Encounter for screening mammogram for malignant neoplasm of breast) : How to access health information online Indication: Encounter for screening mammogram for breast cancer (Renamed from Encounter for screening mammogram for malignant neoplasm of breast) Encounter for screening mammogram for breast cancer (Renamed from Encounter for screening mammogram for malignant neoplasm of breast) : How to access health information online - Detail Indication: Encounter for screening mammogram for breast cancer (Renamed from Encounter for screening mammogram for malignant neoplasm of breast) Encounter for screening mammogram for breast cancer (Renamed from Encounter for screening mammogram for malignant neoplasm of breast) : Patient Instructions Indication: Encounter for screening mammogram for breast cancer (Renamed from Encounter for screening mammogram for malignant neoplasm of breast) Nonsmoker : How to access health information [...] Instructions Indication: Anxiety Encounters Office Visit On: 04-Aug-2018 9:13 Encounter Reason: Cough - No changes in management were made at the last visit. Symptoms include cough, while symptoms do not include wheezing. The cough is described as dry. Cough onset was sudden month(s) ago. There is End: 04-Aug-2018 10:03 no known event that preceded symptom onset. The cough occurs constantly. Symptoms are described as moderate in severity and worsening. Note for Cough: it ended up being pndEncounter Diagnosis: Encounter for screening mammogram for breast cancer (Renamed from Encounter for screening mammogram for malignant neoplasm of breast), BMI 31.0-31.9,adult, Nonsmoker, Cough, Post-nasal drip, Accidental fall, sequela, Abnormality of gait and mobility [facility] Office Visit On: 07-Jul-2018 10:09 Encounter Reason: [...] diarrhea and comiting then back to [facility] Diagnosis: Irritable bowel syndrome (564.1), Constipation, chronic, [...] The patient does have durable power of assistant attorney general and living will. The patient [...] The patient does have durable power of assistant attorney general and living will. The patient has noticed staying at home rather than doing something new or going out and lack of energy (thinks it is from the lupus). 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 chavez), urologist (dr. bhatti) and ot her: (supervisor [employer] dr. beaulieu). 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
--- OUTSIDE RECORDS SUMMARY | 2018-10-11 18:39 | XMS RPT_ITS | Continuity of Care Document ---
:1950 Author Organization [facility] Address [address] [place] [address] Phone Care Team Providers Name Role Phone Rylee Gracia DO Unavailable Fadumo Mcdaniel MD, I Unavailable Dr. Joaquim Hough Unavailable Deuce Soto Unavailable Herb KRISHNAN, Jj Phillips Unavailable Merari Lam Unavailable [facility] Unavailable [facility] Unavailable Spencer Clifton Unavailable [...] 714.9) Comments: see Dr. deutsch. plaquenil helps FRIT MIXER elevated. from Lupus. get eye exam and [...] 25 MCG/ACT (0.025%) Nasal Solution 1 (one) Rockledge Rockledge each nostril qd for 0 days Quantity: 1 {Rockledge} Refills: 2 Ordered:12-Feb-2018 Dasia Arana LPN Start [...] Nasonex 50 MCG/ACT Nasal Suspension 1 (one) Rockledge qd each nostril for 0 days Quantity: [...] discontinued per [facility]. CALCIUM 500 + D, [id number]-DE (PO Tab) 2 tabs qd for 0 [...] order discontinued per [facility]. VITAMIN D (ERGOCALCIFEROL), 37504SEQL (Oral Capsule) 1 (one) Capsule Capsule once [...] More Views Result: Comments: See Note; NOTES: [facility] Imaging Services [address] [facility] [place] [address] Knee 4 or More Views MR#: [id number] Acct: [id number] Name: SUSANNE TORRES Rep #: [id number] : 1950 F 68 From: Hector Cervantes MD PCP: Rylee Gracia DO Status: REG CLI Study: Knee 4 or More Views Date of Exam: 07/23/18 Exam# [id number] Ordering Dr: Lauren Topete STUDY: X-R AY [...] CC: Rylee Gracia DO; Lauren SERNA Prebish Nursery Teacher: Signed 07-Jul-2018 Chest PA and Lateral Result: Comments: See Note; NOTES: [facility] Imaging Services [address] [place] [address] Chest PA and Lateral MR#: [id number] Acct: [id number] Name: SUSANNE TORRES Rep #: [id number] : 1950 F 68 From: Hector Oliveira MD PCP: Rylee Gracia DO Status: REG CLI Study: Chest PA and Lateral Date of Exam: 07/07/18 Exam# [id number] Ordering Dr: Rylee Gracia DO STUDY: X-RA [...] Service support , CC: Rylee Gracia DO Nursery Teacher: Signed 07-Jul-2018 Chest PA and Lateral Result: Comments: See Note; NOTES: [facility] Imaging Services [address] [address] Chest PA and Lateral MR#: [id number] Acct: [id number] Name: SUSANNE TORRES Rep #: [id number] : 1950 F 68 From: Hector Oliveira MD PCP: Rylee Gracia DO Status: REG CLI Study: Chest PA and Lateral Date of Exam: 07/07/18 Exam# [id number] Ordering Dr: Rylee Gracia DO STUDY: X-RA [...] Service support , CC: Rylee Gracia DO Nursery Teacher: Signed 20-Mar-2018 PT D/C Summary (1) Result: Comments: See Note; NOTES: [facility] Physical Therapy [facility] [address] [place] [address] [address] [place] [address] Fax REHABILITATION SERVICES ISHMAEL TAN SUMMARY MR#: [id number] Acct: [id number] Name: SUSANNE TORRES Rep #: [id number] : 1950 68 From: Mitch Leonard DPT, [...] will also do machines as instructed at [employer]. Still avoid pulling weeds and heavy lifting [...] please feel free to call me at [phone]. Thank you for the referral of this patient. Sincerel y, Mitch Leonard, DPT, OC <Electronically signed by Mitch RODRIGUEST, OCS, CSCS> 03/20/18 0932 CC: Rylee Gracia DO EBG Signed 04-Mar-2018 Re-Evaluation - PT (1) Result: Comments: See Note; NOTES: [facility] Physical Therapy [facility] [address] [place], [place] [address] Fax [facility] MR#: [id number] Acct: [id number] Name: SUSANNE TORRES Rep #: [id number] : 1950 68 From: Mitch Leonard DPT, [...] the blue while I was sitting at worship my shldr just starting hurting worse. Reports the pain to be located in the front and under the shldr joint. Objective/Function: Review of postural maintainence so as to not exacerbate symptoms while sitting at worship. Pt states, I guess I wasn't really [...] do not hesitate to contact me at [phone] by phone or if you have questions or concerns regarding this new plan of care! Sincerely, Mitch Leonard, LILIAT, OC <Electronically signed by Mitch RODRIGUEST, OCS, CSCS> 0 03/04/18 0939 CC: Rylee Gracia DO EBG Signed For Medicare only, by signing this I certify the plan of care. Physicians Signature Date 19-Feb-2018 Inital Evaluation (1) - PT Result: Comments: See Note; NOTES: [facility] Physical Therapy [facility] [address] [place] [address] Fax REHABILITATION SERVICES INITIAL EVALUATION MR#: [id number] Acct: [id number] Name: SUSANNE TORRES Rep #: [id number] : 1950 68 From: Mitch Leonard DPT, [...] to be FAXED BACK to us at [phone] for Medicare purposes. Please let me know if there are questions or concerns regarding this plan of care. Physician Signature: Date: <Electronically signed by Mitch Leonard DPT, OCS, CSCS> 02/19/18 0722 CC: Rylee Gracia DO EBG Signed For Me geoffrey only, by signing this I certify the plan of care. Physicians Signature Date 13-Feb-2018 Shoulder min 2 Views Result: Comments: See Note; NOTES: [facility] Imaging Services [address] [place] [address] Shoulder min 2 Views MR#: [id number] Acct: [id number] Name: SUSANNE TORRES Rep #: [id number] : 1950 F 68 From: Hector Oliveira MD PCP: Rylee Gracia DO Status: REG CLI Study: Shoulder min 2 Views Date of Exam: 02/13/18 Exam# [id number] Ordering Dr: Rylee Gracia DO STUDY: X-R [...] Service support , CC: Rylee Gracia DO Nursery Teacher: Signed 04-Feb-2018 Thyroid Result: Comments: See Note; NOTES: [facility] Imaging Services [address] [place] [address] Thyroid MR#: [id number] Acct: [id number] Name: SUSANNE TORRES Rep #: [id number] : 0 1950 F 68 From: Bayron Payan MD PCP: Rylee Gracia DO Status: REG CLI Study: Thyroid Date of Exam: 02/04/18 Exam# [id number] Ordering Dr: Rylee Gracia DO STUDY: THYROID [...] Bayron Payan MD at 10:35 EDT Tel [phone], Service support , CC: Rylee Gracia DO Nursery Teacher: Signed 16-Oct-2017 PT D/C Summary (1) Result: Comments: See Note; NOTES: [facility] Physical Therapy [facility] [address] [place] [address] Fax REHABILITATION SERVICES DISCHAR GE SUMMARY MR#: [id number] Acct: [id number] Name: SUSANNE TORRES Rep #: [id number] : 1950 67 From: Martín Arteaga DPT [...] please feel free to call me at [phone]. Thank you for the referral of this patient. Sincer Martín damian <Electronically signed by Martín Arteaga DPT> 10/16/17 0958 CC: Rylee Gracia DO CLS Signed 12-Oct-2017 Urgent Care Visit Report Result: Comments: See Note; NOTES: [facility] [address] [place] [address] OFFICE VISIT Date of Service: 10/12/17 MR#: [id number] Acct: [id number] Name: SUSANNE TORRES Rep #: [id number] : 1950 Provider: Lillian Myers Age/Sex: 67/F Location: 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 Medications New: Coding Level of Care Code Off vis,est,level 4 Diagnoses Cellulitis of other specified site L03.818 Site of cell ulitis: other site 10/12/17 1020 <Electronically signed by Lillian FLORES> Date Lillian FLORES Cosigner Signatur e: Date (if applicable) CC: 24-Sep-2017 PT Communication Result: Comments: See Note; NOTES: [facility] Physical Therapy [facility] [address] [place] [address] Fax REHABILITATION SERVICES PROGRSALVATORE Kaur NOTE MR#: [id number] Acct: [id number] Name: SUSANNE TORRES Rep #: [id number] [...] Contact Information 09/24/17 0926 <Electronically signed by Tatiaan Wagner MPT> Date An lucio Stoner MPT Cosigner Signature (if applicable): Date CC: Rylee Gracia DO Signed For Medicare only, by signing this I certify the plan of care. Physicians Signature Date 18-Sep-2017 Inital Evaluation (1) - PT Result: Comments: See Note; NOTES: [facility] Physical Therapy [facility] [address] [place] [address]. [address] [place] [address] Fax REHABILITATION SERVICES INITIAL EVALUATION MR#: [id number] Acct: [id number] Name: SUSANNE TORRES Rep #: [id number] : 1950 67 From: Martín Arteaga DPT [...] Response: No effect Lumbar Standing: Right Side Secor - Symptoms During Testing: No e ffect Lumbar Standing: Right Side Secor - Symptoms After Testing: No effect Lumbar Standing: Left Side Secor - Mechanical Response: No effect Lumbar Standing: Left Side Secor - Symptoms During Testing: No effect Lumbar Standing: Left Side Secor - Symptoms After Testing: No effect - [...] to be FAXED BACK to us at [phone] for Medicare purposes. Please let me know if there are questions or concerns regarding this plan of care. Physician Signature: Date: <Electronically signed by Martín Arteaga DPT> 09/18/171909 CC: Rylee Gracia DO CLS Signed For Medicare only, by signing this I certify the plan of care. Physicians Signature Date 16-Aug-2017 Hand Min 3 Views Result: Comments: See Note; NOTES: [facility] Imaging Services [address] [place] [address] Hand Min 3 Views MR#: [id number] Acct: [id number] Name: SUSANNE TORRES Rep #: [id number] : 1950 F 67 From: Bayron Payan MD PCP: Rylee Gracia DO Status: REG CLI Study: Hand Min 3 Views Date of Exam: 08/16/17 Exam# [id number] Ordering Dr: Rylee Gracia DO STUDY: X-RA [...] Bayron Payan MD at 13:43 EST Tel [phone], Service support , CC: Rylee Gracia DO Nursery Teacher: Signed 25-Jul-2017 SCREENING MAMM (CAD), BILAT Result: Comments: See Note; NOTES: [facility] Imaging Services [address] [place] [address] SCREENING MAMM (CAD), BILAT MR#: [id number] Acct: [id number] Name: SUSANNE TORRES Rep #: [id number] : 1950 F 67 From: Bayron Payan MD PCP: Rylee Gracia DO Status: REG CLI Study: SCREENING MAMM (CAD), BILAT Date of Exam: 07/25/17 Exam# [id number] Ordering Dr: Sherrell Gracia DO MAMMOGRAPHY - [...] delay biopsy of a clinically suspicious abnormality. [id number] Electronically Signed: Bayron Payan MD at 14:18 EST Tel [phone], Service support , CC: Rylee Gracia DO Nursery Teacher: Signed 03-Jul-2017 Urgent Care Visit Report Result: Comments: See Note; NOTES: [facility] [address] [place] [address] OFFICE VISIT Date of Service: 07/03/17 MR#: [id number] Acct: [id number] Name: SUSANNE TORRES Rep #: [id number] : 1950 Provider: Matt FLORES Age/Sex: 67/F Location: [facility] Status: Signed Intake Vital Signs07/03/17 [...] (Cipro) administer within 120 minutes prior to zsua112 mg PO BID 7 days ical incision Additional Comments UA dip = mod blood, mo d leukocytes. Cipro as prescribed today (per pt preference). Appropriate hygiene reinforced. Follow-up with PCP or enterprise systems administrator 2-3 days should symptoms not improved, sooner should symptoms worsen or an y other concerns develop. Patient states acknowledging understanding of the above. Coding Level of Care Code Off vis,new,level 3 Diagnoses Urinary tract infection N39.0 07/03/17 1524 <Elect ronically signed by Matt FLORES> Date Matt FLORES Cosigner Signature: Date (if applicable) CC: 03-Jul-2017 Acute Abdomen Inc Chest Result: Comments: See Note; NOTES: [facility] Imaging Services [address] [place] [address] Acute Abdomen Inc Chest MR#: [id number] Acct: [id number] Name: SUSANNE TORRES Rep #: [id number] : 1950 F 67 From: Ross Javier DO PCP: Rylee Gracia DO Status: REG CLI Study: Acute Abdomen Inc Chest Date of Exam: 07/03/17 Exam# [id number] Ordering Dr: Rylee Gracia Y: X-RAY - [...] Ross Javier DO at 11:58 EST Tel [phone], Serv ice support , CC: Rylee Gracia DO Nursery Teacher: Signed 02-Jul-2017 Abd Inc Decub and/or Erect Result: Comments: See Note; NOTES: [facility] Imaging Services [address] [address] Abd Inc Decub and/or Erect MR#: [id number] Acct: [id number] Name: SUSANNE TORRES Rep #: [id number] : 1950 F 67 From: Ross Javier DO PCP: Rylee Gracia DO Status: REG CLI Study: Abd Inc Decub and/or Erect Date of Exam: 07/02/17 Exam# [id number] Ordering Dr: Rylee Gracia DO STUDY: X-RAY [...] Ross Javier DO at 11:35 EST Tel [phone], Service support , Fax CC: Rylee Gracia DO Nursery Teacher: Signed 03-Jan-2017 Thyroid Result: Comments: See Note; NOTES: [facility] Imaging Services [address] [place] [address] Felipedana 4d Thyroid MR#: [id number] Acct: [id number] Name: SUSANNE TORRES Rep #: [id number] : 1950 F 66 From: Roselia Huerta MD PCP: Rylee Gracia DO Status: REG CLI Study: Thyroid Date of Exam: 01/03/17 Exam# [id number] Ordering Dr: Rylee Gracia DO STUDY: THYROID [...] Service support , CC: Rylee Gracia DO Nursery Teacher: Signed 15-Aug-2016 Venous Duplex Lower Extremity Result: Comments: See Note; NOTES: [facility] Cardiovascular Services [address] [place] [address] Venous Duplex US, Unilateral 08/15/16 1054 MR#: [id number] Acct: [id number] Name: SUSANNE COLMENARES Rep #: [id number] : 1950 66 From: Bradford Crowe MD [...] Dictated: 08/15/16 1054 Date Transcribed: 08/15/16 1228 Nursery Teacher: Signed 24-Jul-2016 SCREENING MAMM (CAD), BILAT Result: Comments: See Note; NOTES: [facility] Imaging Services [address] [address] Verdana 4d SCREENING MAMM (CAD), BILAT MR#: [id number] Acct: [id number] Name: MARYANA TORRES Rep #: [id number] : 1950 F 66 From: Ross Javier DO PCP: Rylee Gracia DO Status: REG CLI Study: SCREENING MAMM (CAD), BILAT Date of Exam: 07/24/16 Exam# [id number] Ordering Dr: Rylee Gracia DO MAMMOGRAPHY - [...] delay biopsy of a clinically suspicious abnormality. [id number] Electronically Signed: Ross Javier DO at 16:06 EST Tel [phone], Service support [phone], CC: Rylee Gracia DO Nursery Teacher: Signed 17-Jul-2016 DXA BONE DENS W/VERT FX ASMT Result: Comments: See Note; NOTES: [facility] Imaging Services [address] [place] [address] Verdana 4d DXA BONE DENS W/VERT FX ASMT MR#: [id number] Acct: [id number] Name: LUBAVincent TOMMY Love Rep #: [id number] : 1950 F 66 From: Bayron Payan MD PCP: Rylee Gracia DO Status: REG CLI Study: DXA BONE DENS W/VERT FX ASMT Date of Exam: 07/17/16 Exam# [id number] Ordering Dr : Rylee Gracia DO STUDY: [...] Bayron Payan MD at 14:09 EST Tel [phone], Service support [phone], CC: Ryleeradha Gracia Nursery Teacher: Signed 01-Mar-2016 ELECTROCARDIOGRAM, COMPLETE (ECG) (99814) Comments: sinus beverly no acute chg Result: [MEASUREMENTS ANALYSIS] Date of Test: 03/01/2016 13:45:12; Heart Rate: 59; AR Interval: 154; QRS: 92; QT Interval: 426; Corrected QT Interval (QTc): 425; P Wave [place]: 33; QRS Wave [place]: 33; T Wave [place]: 90; Blood Pressure: 120/78 [ECG DIAGNOSTIC STATEMENTS] Date of Test: 03/01/2016 13:45:12; Summary: Sinus Bradycardia - Nonspecific T-abnormality. ABNORMAL 01-Nov-2015 Lumbar Spine 2 or 3 Views Result: Comments: See Note; NOTES: [facility] Imaging Services [address] [place] [address] Verdana 4d Lumbar Spine 2 or 3 Views MR#: [id number] Acct: [id number] Name: ISAIAH COLMENARESANNJacqueline Love Rep #: [id number] : 1950 F 65 From: Bayron Payan MD PCP: Manda Higginbotham MD Status: REG CLI Study: Lumbar Spine 2 or 3 Views Date of Exam: 11/01/15 Exam# [id number] Tanya gilmore Dr: Ryan Ortiz MD STUDY: [...] Bayron Payan MD at 10:21 EDT Tel [phone], Service support [phone], RAD/Lumbar Spine 2 or 3 Views IMPRESSION: Degenerative changes of the spine, as detai led above. Electronically Signed: Bayron Payan MD at 10:21 EDT Tel [phone], Service support [phone], CC: Ryan Ortiz MD; Manda Higginbotham MD Nursery Teacher: Signed 13-Oct-2015 Spine Cervical (Routine) Result: Comments: See Note; NOTES: [facility] Imaging Services [address] [place] [address] Verdana 4d Spine Cervical (Routine) MR#: [id number] Acct: [id number] Name: SUSANNE KATE Rep #: [id number] : 1950 F 65 From: Tavo Perez MD PCP: Manda Higginbotham MD Status: REG CLI Study: Spine Cervical (Routine) Date of Exam: 10/13/15 Exam# [id number] Ordering Dr: Ryan Ortiz MD STUDY: MRI [...] at 19:04 EDT Tel , Service support [phone], CC: Ryan Ortiz MD; Manda Higginbotham MD Nursery Teacher: Signed 19-Jul-2015 Bilat Scrn Digital AND CAD Result: Comments: See Note; NOTES: [facility] Imaging Services [address] [place] [address] Verdana 4d Bilat Scrn Digital AND CAD MR#: [id number] Acct: [id number] Name: SUSANNE TORRES Rep #: [id number] : 1950 F 65 From: Hector Oliveira MD PCP: Manda Higginbotham MD Status: REG CLI Study: Bilat Scrn Digital AND CAD Date of Exam: 07/19/15 Exam# [id number] Ordering Dr: Manda Higginbotham MD MAMMOGRAPHY - [...] delay biopsy of a clinically suspicious abnormality. [id number] Electronically Signed: Luis Eduardo Oliveira MD at 15:55 EST Te l , Service support [phone], CC: Manda Higginbotham MD Nursery Teacher: Signed 12-Jul-2015 PT D/C of Non Returning Pt. Result: Comments: See Note; NOTES: [facility] Physical Therapy [address] [place] [address] Fax REHABILITATION SE RVICES DISCHARGE SUMMARY MR#: [id number] Acct: [id number] Name: SUSANNE TORRES Rep #: [id number] : 1950 65 From: Tatiana Wagner Referring [...] and Lateral Result: Comments: See Note; NOTES: [facility] Imaging Services [address] [place] [address] [place] 4d Chest PA and Lateral MR#: [id number] Acct: [id number] Name: SUSANNE PADILLA Rep #: [id number] : 1950 F 65 From: Bayron Payan MD PCP: Manda Higginbotham MD Status: REG CLI Study: Chest PA and Lateral Date of Exam: 06/13/15 Exam# [id number] Ordering Dr: Marlen Rosenbaum STUDY: X-RAY CHEST [...] Bayron Payan MD at 14:40 EST Tel [phone], Service support [phone], 0079 RAD/Chest PA and Lateral IMPRESSION: No acute abnormality is seen. Electronically Signed: Bayron Payan MD at 14:40 EST Tel [phone], Service support [phone], CC: Marlen Rosenbaum; Manda Higginbotham MD Nursery Teacher: Signed 14-May-2015 Operative Report Result: Comments: See Note; NOTES: [facility] Medical Records Department [address] [place] [address] Operative Report MR#: [id number] Acct: [id number] Name: MARYANA TORRES Rep #: [id number] : 1950 65 From: Deion Gomez MD PCP: Manda Higginbotham MD Status: [facility] DATE OF SERVICE: 05/13/2015 DATE OF [...] get a guidewire past this, then, a 12-Welsh ureteral balloon dilator and the distal ureter [...] condition. Deion Gomez MD T: NTS JOB: [id number] 05/14/15 1121 <Electronically si gned by Deion Gomez MD> Date Deion Gomez MD Cosigner Signature (If Indicated): Date CC: Manda Higginbotham MD; Deion Gomez MD Date Dictated: 05/13/151357 Date Transcribed: 05/13/151357 Nursery Teacher: Signed 13-May-2015 Discharge Instruction Result: Comments: See Note; NOTES: [facility] Medical Records Department [address] [place] [address] Instructions for Home/Discharge Instructions 05/13/15 1400 MR#: [id number] Acct: [id number] Name: SUSANNE TORRES Rep #: [id number] : 1950 65 From: Deion Gomez MD PCP: Manda Higginbotham MD Status: REG ARC Discharge Diet: No Restrictions Discharge Activ ity: [...] Please Follow Up With: Deion Gomez - [phone] When: CALL SOON FOR AN APPT IN FEW WKS, TO PAGE 05/13/15 1953 <Electronically signed by Deion Gomez MD> Date Deion Gomez MD CC: Manda Higginbotham MD 12-May-2015 Abdomen Single View Result: Comments: See Note; NOTES: [facility] Imaging Services [address] [place] [address] Verdana 4d Abdomen Single View MR#: [id number] Acct: [id number] Name: SUSANNE RAMIREZ Rep #: [id number] : 1950 F 65 From: Jack Calderon MD PCP: Manda Higginbotham MD Status: REG CLI Study: Abdomen Single View Date of Exam: 05/12/15 Exam# [id number] Ordering Dr: Deion Hernandez MD STUDY: X-RAY [...] Jack Calderon MD at 23:58 EDT Tel [phone], Service support [phone], RAD/Abdomen Single View IM PRESSION: 5 mm left renal stone. Electronically Signed: Jack Calderon MD at 23:58 EDT Tel [phone], Service support [phone], CC: Manda Higginbotham MD; Deion Gomez MD Nursery Teacher: Signed 02-May-2015 Abdomen Single View Result: Comments: See Note; NOTES: [facility] Imaging Services [address] [place] [address] Radiology Report MR#: [id number] Acct: [id number] Name: SUSANNE TORRES Re p #: [id number] : 1950 F 65 From: Hector Cervantes MD PCP: Manda Higginbotham MD Status: REG CLI Study: Abdomen Single View Date of Exam: 05/02/15 Exam# [id number] Ordering Dr: Deion Gomez MD STUDY: X-RAY [...] MD at 16:59 EDT , Service support [phone], RAD/Abdomen Sing le View IMPRESSION: 1. 5 [...] MD at 16:59 EDT , Service support [phone], CC: Manda Higginbotham MD; Deion Gomez MD Nursery Teacher: Signed 29-Mar-2015 Extremity Lower without Contra Result: Comments: See Note; NOTES: [facility] Imaging Services [address] [place] [address] CAT Scan Report MR#: [id number] Acct: [id number] Name: SUSANNE TORRES Rep #: [id number] : 1950 F 65 From: Roselia Huerta MD PCP: Manda Higginbotham MD Status: REG CLI Study: Extremity Lower without Contra Date of Exam: 03/29/15 Exam# [id number] Ordering Dr: Chirag Lee DPM STUDY: CT [...] at 13:47 EDT Tel , Service support [phone], CC: Manda guevara MD; Chirag Lee DPM Nursery Teacher: Signed 22-Mar-2015 Inital Evaluation - PT Result: Comments: See Note; NOTES: [facility] Physical Therapy [facility] [address] [facility] [place] [address] Fax REHABILITATION SERVICES INITIAL EVALUATION MR#: [id number] Acct: [id number] Name: SUSANNE TORRES Rep #: [id number] : 1950 65 From: Tatiana Wagner Referring [...] to be FAXED BACK to us at [phone] for Medicare purposes. Please let me know if there are questions or concerns regarding this plan of care. Physician Signature: Date: <Electronically signed by Tatiana Wagner > 03/22/15 1556 CC: Manda Higginbotham MD; Chirag Lee DPM Signed For Medicare only, by signing this I certify the plan of care. Physicians Signature Date 31-Dec-2014 Operative Report Result: Comments: See Note; NOTES: [facility] Medical Records Department [address] [place] [address] Operative Report MR#: [id number] Acct: [id number] Name: SUSANNE TORRES Rep #: [id number] : 1950 64 From: Chirag Lee DPM PCP: Manda Higginbotham MD Status: [facility] DATE OF SERVICE: 12/31/2014 DATE OF [...] mm screw was placed across the f [facility] metatarsal fracture site intramedullary. Of [...] needed. Chirag Lee DPM T: TITI JOB: [id number] 12/31/14 1603 &# 60;Electronically signed by Chirag Lee DPM> Date Chirag Lee DPM CC: Manda Higginbotham MD; Sunday Lee MD Date Dictated: 12/31/14914 Date Transcribed: 12/31/14914 Nursery Teacher: Signed 31-Dec-2014 Foot 2 Views Result: Comments: See Note; NOTES: [facility] Imaging Services [address] [place] [address] Radiology Report MR#: [id number] Acct: [id number] Name: SUSANNE TORRES Rep #: [id number] : 1950 F 64 From: Bayron Payan MD PCP: Manda Higginbotham MD Status: [facility] Study: Foot 2 Views Date of Exam: 12/31/14 Exam# [id number] Ordering Dr: Chirag Lee DPM STUD Y: [...] Bayron Payan MD at 13:09 EDT Tel [phone], Service support , RAD/Foot 2 Views IMPRESSION: Satisfactory ORIF of the transverse fracture of the base of the fifth metatarsal. Electronically Signed: Bayron sosa MD at 13:09 EDT Tel [phone], Service support [phone], CC: Manda Higginbotham MD; Sunday Lee MD Nursery Teacher: Signed 31-Dec-2014 Discharge Instruction Result: Comments: See Note; NOTES: [facility] Medical Records Department [address] [place] [address] Instructions for Home/Discharge Instructions 12/31/1432 MR#: [id number] ct: [id number] Name: SUSANNE TORRES Rep #: [id number] : 1950 64 From: Chirag Lee DPM PCP: Manda Higginbotham MD Status: REG [facility] Discharge Diet: Light diet - advance as [...] 2 Views Result: Comments: See Note; NOTES: [facility] Imaging Services [address] [place] [address] Radiology Report MR#: [id number] Acct: [id number] Name: SUSANNE TORRES Rep #: [id number] : 1950 F 64 From: Bayron Payan MD PCP: Manda Higginbotham MD Status: [facility] Study: Foot 2 Views Date of Exam: 12/31/14 Exam# [id number] Ordering Dr: Chirag Lee DPM STUD Y: [...] Morgan Payan MD at 13:02 EDT Tel [phone], Service support [phone], RAD/Foot 2 Views IMPRESSION: Satisfactory reduction of the transvers e fracture at the base of the fifth metatarsal with screw fixation. Electronically Signed: Bayron Payan MD at 13:02 EDT Tel [phone], Service support [phone], Fax CC: Manda Higginbotham MD; Sunday Lee MD Nursery Teacher: Signed 24-Sep-2014 Abdomen Single View Result: Comments: See Note; NOTES: [facility] Imaging Services [address] [place] [address] Radiology Report MR#: [id number] Acct: [id number] Name: SUSANNE TORRES Rep #: [id number] : 1950 F 64 From: Agustin Washington MD PCP: Manda Higginbotham MD Status: REG CLI Study: Abdomen Single View Date of Exam: 09/24/14 Exam# [id number] Ordering Dr: Deion Gomez MD UDY: X-RAY [...] at 17:02 EST Tel , Service support [phone], Fax RAD/Abdomen Single View IMPRESSION: 5 mm left upper pole stone. Other renal stones are not seen but not excluded. Electronically Signed: Agustin Washington MD at 17:02 EST Tel , Service support [phone], CC: Manda Higginbotham MD; Deion Gomez MD Nursery Teacher: Signed 04-Aug-2014 Abdomen/Pelvis without Cont Result: Comments: See Note; NOTES: [facility] Imaging Services [address] [facility] [place] [address] CAT Scan Report MR#: [id number] Acct: [id number] Name: SUSANNE TORRES Rep #: [id number] : 1950 F 64 From: Bayron Payan MD PCP: Manda Higginbotham MD Status: REG CLI Study: Abdomen/Pelvis without Cont Date of Exam: 08/04/14 Exam# [id number] Ordering Dr: Deion Gomez MD STUDY: CT [...] Bayron Payan MD at 11:33 EST Tel [phone], Service support [phone], CC: Manda Higginbotham MD; Deion Gomez MD Nursery Teacher: Signed 13-Jul-2014 Vert Fx Asess/Lat Bone Den(H) Result: Comments: See Note; NOTES: [facility] Imaging Services [address] [facility] [place] [address] Bone Density Report MR#: [id number] Acct: [id number] Name: SUSANNE TORRES Rep # : [id number] : 1950 F 64 From: Bayron Payan MD PCP: Manda Higginbotham MD Status: REG CLI Study: Vert Fx Asess/Lat Bone Den(H) Date of Exam: 07/13/14 Exam# [id number] Ordering Dr: Iona Higginbotham MD ADDENDUM by Bayron Payan MD on 08/03/14 at 0947 ADDENDUM This is an addendum r eport. A vertebral assessment study was obtained as well. There is moderate degree of loss of height of the T7 vertebrae. Minimal loss of white of the superior plate of the T11 vertebrae. Electron ically Signed: Bayron Payan MD at 9:47 EST Tel [phone], Service support [phone], 08/03/14 0947 Date cc: Manda Higginbotham MD [...] Michael Payan MD at 13:17 EST Tel [phone], Service support [phone], CC: Manda Higginbotham MD Nursery Teacher: Signed 13-Jul-2014 Vert Fx Asess/Lat Bone Den(H) Result: Comments: See Note; NOTES: [facility] Imaging Services [address] [place] [address] Bone Density Report MR#: [id number] Acct: [id number] Name: SUSANNE TORRES Rep # : [id number] : 1950 F 64 From: Bayron Payan MD PCP: Manda Higginbotham MD Status: REG CLI Study: Vert Fx Asess/Lat Bone Den(H) Date of Exam: 07/13/14 Exam# [id number] Ordering Dr: Iona Higginbotham MD STUDY: DUAL [...] Osteoporosis Foundation [email or web address] Electronically Sig paul: Bayron Payna MD at 13:17 EST Tel [phone], Service support [phone], CC: Manda Higginbotham MD Nursery Teacher: Signed 13-Jul-2014 Bilat Scrn Digital AND CAD Result: Comments: See Note; NOTES: [facility] Imaging Services [address] [place] [address] Breast Imaging Report MR#: [id number] Acct: [id number] Name: SUSANNE TORRES Rep #: [id number] : 1950 F 64 From: Hector Oliveira MD PCP: Manda Higginbotham MD Status: REG CLI Study: Pauline Tsang Digital AND CAD Date of Exam: 07/13/14 Exam# [id number] Ordering Dr: Manda Higginbotham MD MAMMOGRAPHY - [...] Eduardo Oliveira MD at 15:14 EST Tel [phone], Service support , CC: Manda Higginbotham MD Nursery Teacher: Signed 13-Jul-2014 Dexa Bone Density Study (HP) Result: Comments: See Note; NOTES: [facility] Imaging Services [address] [place] [address] Bone Density Report MR#: [id number] Acct: [id number] Name: SUSANNE TORRES Rep # : [id number] : 1950 F 64 From: Bayron Payan MD PCP: Manda Higginbotham MD Status: REG CLI Study: Dexa Bone Density Study (HP) Date of Exam: 07/13/14 Exam# [id number] Ordering Dr: Ap Higginbotham MD STUDY: DUAL [...] Bayron Payan MD at 13:24 EST Tel [phone], Service support [phone], CC: Manda Higginbotham MD Nursery Teacher: Signed 02-Apr-2014 Pelvis 1 or 2 Views Result: Comments: See Note; NOTES: [facility] Imaging Services [address] [place] [address] Radiology Report MR#: [id number] Acct: [id number] Name: SUSANNE TORRES Rep #: [id number] : 1950 F 64 From: Ross Javier DO PCP: Manda Higginbotham MD Status: REG CLI Study: Pelvis 1 or 2 Views Date of Exam: 04/02/14 Exam# [id number] Ordering Dr: Peri Deutsch MD STUDY: X-RAY [...] Ross Javier DO at 20:24 EDT Tel [phone], Service support [phone], Fax CC: Manda Higginbotham MD; Peri Deutsch MD Nursery Teacher: Signed 09-Jul-2013 Bilat Scrn Digital & CAD Result: Comments: See Note; NOTES: [facility] Imaging Services [address] [place] [address] Breast Imaging Report MR#: [id number] Acct: [id number] Name: SUSANNE TORRES Rep #: [id number] : 1950 F 63 From: Bayron Payan MD PCP: Status: REG CLI Exam# [id number] Ordering Dr: Manda Higginbotham MD MAMMOGRAPHY - [...] Signed: Bayron Payan M.D. at 10:52 EST [facility] [phone], Service support [phone], CC: Manda Higginbotham MD Nursery Teacher: Signed Immunization Name Dates Details Influenza (3 years and up) on: 23-May-2007 Comments: given 0.5cc im in left deltoid lot#[id number] exp.11/27- Influenza (3 years and up) on: 11-Jun-2008 Comments: inj given left deltoid no complicationslot:nujmi974xizth:12/28 Influenza (3 years and up) on: 22-Apr-2009 Comments: Lot #: [id number] date: mount given: 0.5 mlRoute: IMSite given: left deltoidGiven by: A Maritza, PROCESSING SPECIALIST Pneumococcal (2 years and up) on: 22-Apr-2009 [...] kg/m2 Body Surface Area Calculated 1.73 m2 79-Mok-832875:36 Temperature 98.4 f Comments: Method: Temporal Pulse [...] kg/m2 Body Surface Area Calculated 1.73 m2 26-Ykn-705831:03 Pulse 81 /min Comments: Pattern: Regular Respiration [...] Calculated 1.87 m2 Head Circumference 0.00 cm 20-Xzy-849903:07 Temperature 97.8 f Comments: Method: Oral Pulse [...] W/Diff, Automated Comments: DR. GRACIA WANTS THE [facility] CMP VITD TSH T3F CBCD T4FDR. JOVON WNATS THE VITD PROCRE CBCD PTH [facility] [address] [place], [address] Absolute Lymph 1.49 {X10_3/ul} (Normal) Range: 0.83-4.51 [...] 4.2-5.4 WBC 4.4 K/mm3 (Normal) Range: 4.4-11.0 21-Rme-90427:13 Comprehensive Metabolic Profil Comments: DR. GRACIA WANTS THE NMP CMP VITD TSH T3F CBCD T4FDR. JOVON WORLEYATS THE VITD PROCRE CBCD PTH PHOS [facility] [address] [place], [address] GAP 9 (Normal) Range: 5-15 CO2 28.0 [...] Comments: Please note revised GLUCOSE reference range vkngjvufp83/02/2018. 00-Ufn-71682:13 Free T3 Comments: DR. GRACIA WANTS THE [facility] VITD TSH T3F CBCD T4FDR. JOVON SANDOVAL THE VITD PROCRE CBCD PTH PHOS [facility] [address] [place], [address] FREE T3 2.4 pg/mL (Normal) Range: 2.18-3.98 05-Nzm-78903:13 NMR Lipoprofile Comments: DR. GRACIA WANTS THE [facility] VITD TSH T3F CBCD T4FDR. JOVON SANDOVAL [...] US Food and Drug Administration.Performed at: - [facility] [id number] Director: Juwan Hendrix MD, Phone: [phone] INS RES/DIAB RK . (Normal) LDL SIZE [...] :13 Phosphorus Comments: DR. GRACIA WANTS THE [facility] VITD TSH T3F CBCD T4FDR. JOVON [facility] THE VITD PROCRE CBCD PTH [facility] [address] [place], [place], [id number] PHOS 3.2 mg/dL (Normal) Range: 2.5-4.9 :13 Protein+Creatinine Ratio,Urine Comments: DR. GRACIA WANTS THE [facility] VITD TSH T3F CBCD T4FDR. JOVON [facility] THE VITD PROCRE CBCD PTH [facility] [address] [place], [address] PROT:CRE RATIO 79 {mg/g_CRE} (Normal) Range: 0-200 PROTEIN,UR.RAN. 12.1 mg/dL (Abnormal) UR CREAT 154.00 mg/dL (Normal) :13 PTHIN 60.9 pg/mL (Normal) Comments: DR. GRACIA WANTS THE [facility] VITD TSH T3F CBCD T4FDR. [facility] THE VITD PROCRE CBCD PTH [facility] [address] [place], [place], [id number] Range: 18.4-80.1 :13 T4 Free Direct Comments: DR. GRACIA WANTS THE [facility] VITD TSH T3F CBCD T4FDR. [facility] THE VITD PROCRE CBCD PTH [facility] [address] [place], [place], [address] T4 FREE DIRECT 1.05 ng/dL (Normal) Range: 0.76-1.46 :13 Thyroid Stim Hormone (TSH) Comments: DR. GRACIA WANTS THE [facility] VITD TSH T3F CBCD T4FDR. [facility] THE VITD PROCRE CBCD PTH [facility] [address] [place], [place], [address] TSH 3.04 {uIU/mL} (Normal) Range: 0.358-3.74 :13 Vitamin D,25 Hydroxy Comments: DR. GRACIA WANTS THE [facility] VITD TSH T3F CBCD T4FDR. [facility] THE VITD PROCRE CBCD PTH [facility] [address] [place], [place], [address] Vitamin D 25-OH 33.5 ng/mL (Normal) Range: 29.95-100.01 Comments: Vitamin D 25(OH) Status Range Deficiency <20 ng/mL (50nmol/L) Insuffciency 20 - 30 ng/mL (50 - 75 nmol/L) Sufficiency 30 - 100 ng/mL (75 - 250 nmol/L) Toxicity >100 ng/mL (>250 nmol/L) 31-Tpk-168619:12 CALCIFIDIOL (70367) VIT D 25 Comments: PATIENT NOT FASTINGPERFORMED BY: JOHN [facility] Anowtw[address] Walton RoadDublin [place] [id number] Vitamin D, 25-Hydroxy 41.7 ng/mL (Normal) Range: 30.0-100.0 Comments: Vitamin D deficiency has been defined by the [place] [facility] and an Endocrine Society practice guideline as alevel of serum 25-OH vitamin D less than 20 ng/mL (1,2).The Endocrine Society went on to further define vitamin Dinsufficiency as a level between 21 and 29 ng/mL (2).1. IOM ([place] of Medicine). 2010. Dietary reference intakes for calcium and D. [place]: The National Academies Press.2. Micky MF, Jessenia SYKES, Katrin CAMARGO, et al. Evaluation, treatment, and prevention of vitamin D deficiency: an Endocrine Society clinical practice guideline. JCEM. 2010; 96(7):1911-30. 36-Aiv-891572:12 VITAMIN B-12 (CYANOCOBALAMIN) Comments: PATIENT NOT FASTINGPERFORMED BY: CB [facility] [address] [facility] [place] [id number] ([id number]) Vitamin B12 459 pg/mL (Normal) Range: 232-1245 54-Eeq-458842:12 TSH (80602) Comments: PATIENT NOT FASTINGPERFORMED BY: CB [facility] [address] [facility] [place] [id number] TSH 2.120 {uIU/mL} (Normal) Range: 0.450-4.500 00-Lyy-063019:12 SED RATE ERYTHROCYTE (08122) Comments: PATIENT NOT FASTINGPERFORMED BY: CB [facility] [address] [facility] [place] [id number] Sedimentation Rate-Westergren 2 mm/h (Normal) Range: 0-40 84-Omq-226654:12 RHEUMATOID FACTOR-QUANT (32502) Comments: PATIENT NOT FASTINGPERFORMED BY: CB [facility] L[address]cy[address] [facility] [place] [id number] RA Latex Turbid. <10.0 {IU/mL} (Normal) Range: 0.0-13.9 65-Vwz-214467:12 METABOLIC PANEL, COMPREHENSIVE Comments: PATIENT NOT FASTINGPERFORMED BY: [employer] Lqjlcm5728 [facility] [id number] (76782) ALT (SGPT) 19 [iU]/L (Normal) Range: 0-32 [...] 8-27 Glucose 92 mg/dL (Normal) Range: 65-99 22-Dhl-684159:12 C-REACTIVE PROTEIN (75118) Comments: PATIENT NOT FASTINGPERFORMED BY: [employer] Tysqae9179 [facility] [id number] C-Reactive Protein, Quant 1.2 mg/L (Normal) Range: 0.0-4.9 50-Cok-097292:12 CBC (AUTO) (11681) Comments: PATIENT NOT FASTINGPERFORMED BY: [facility]6370 [facility] [id number] Platelets 212 {x10E3/uL} (Normal) Range: 150-379 RDW 13.9 % (Normal) Range: 12.3-15.4 MCHC 33.7 g/dL (Normal) Range: 31.5-35.7 MCH 30.8 pg (Normal) Range: 26.6-33.0 MCV 91 fL (Normal) Range: 79-97 Hematocrit 40.3 % (Normal) Range: 34.0-46.6 Hemoglobin 13.6 g/dL (Normal) Range: 11.1-15.9 RBC 4.42 {x10E6/uL} (Normal) Range: 3.77-5.28 WBC 4.8 {x10E3/uL} (Normal) Range: 3.4-10.8 97-Ygb-316757:12 BIBIANA (ANTINUCLEAR ANTIBODY) Comments: PATIENT NOT FASTINGPERFORMED BY: [facility]6370 [facility] [id number] ([id number]) BIBIANA Direct Negative (Normal) 79-Viw-967348:08 Miscellaneous Lab Procedure Comments: Comments: [id number] TRANGLUTAMINASE SER FZTest(s) Ordered: [id number] TRANGLUTAMINASE SER [facility] [address] [place], [address] [facility] Comments: [...] of the TransglutaminaseIgM assay was validated by [employer]. [place] FDA has not approved or cleared this test. Th e resultsof this assay can be used for clinical diagnosis withoutFDA approval. [employer]. is a CLIAcertified, CAP accredited laboratory for performing highcomplexity assays such as this o ne.Tragl IgA < 1.2 U/mL 0.0 - 4.0 Reference Range Negative < 4.0 U/mL Weak Positive 4.0 - 10.0 U/mL Positive > 10.0 U/mLComment_ TESTING PERFORMED AT [facility]. ORIGINAL REPORT ON FILE IN LAB CONTAINS ADDITIONAL TEST SITE INFORMATION. 68-Bsu-157069:30 CBC-Complete Blood Cnt No Diff Comments: [facility] [address] [place], [place], [id number] MPV 9.8 fL (Normal) Range: 6.2-12.0 PLT [...] 4.2-5.4 WBC 6.0 K/mm3 (Normal) Range: 4.4-11.0 83-Orw-508437:30 Endomysial Antibody IgA Comments: [facility] (refer to report for specific site)refer to report for address and phone number ENDOMYSIAL IGA Negative (Normal) 00-Cjg-992443:30 Thyroglobulin Antibody Comments: [facility] (refer to report for specific site)refer to report for address and phone number TG AB 1.1 {IU/mL} (Abnormal) Range: 0.0-0.9 Comments: Thyroglobulin Antibody measured by Jaz CoulterMethodologyPerformed at: - [facility] [address] [id number] Director: Joaquim Barrett PhD, Phone: [phone] :23 CBC-Complete Blood Cnt No Diff Comments: [facility] [address] [place], [address] MPV 9.5 fL (Normal) Range: 6.2-12.0 [...] K/mm3 (Abnormal) Range: 4.4-11.0 :23 Magnesium Comments: [facility] [address] [place], [id number] MG 2.3 mg/dL (Normal) Range: 1.6-2.6 :23 Microalb:Creat Ratio,Random UR Comments: [facility] [address] [place], [address] MALB:CREAT 5.6 {mg/g_CRE} (Normal) MICROALBUMIN,UR 5.3 mg/L (Normal) UR CREAT 95.70 mg/dL (Normal) :23 PTHIN 78.4 pg/mL (Normal) Comments: [facility] [address] [place], [address] Range: 18.4-80.1 38-Imf-61463:23 Renal Profile Comments: [facility] [address] [place], [address] CO2 28.0 mmol/L (Normal) Range: 21.0-32.0 CL [...] Comments: Please note revised GLUCOSE reference range rppgvizoa20/02/2018. :23 Vitamin D,25 Hydroxy Comments: [facility] [address] [place], [address] Vitamin D 25-OH 34.7 ng/mL (Normal) Range: 29.95-100.01 Comments: Vitamin D 25(OH) Status Range Deficiency <20 ng/mL (50nmol/L) Insuffciency 20 - 30 ng/mL (50 - 75 nmol/L) Sufficiency 30 - 100 ng/mL (75 - 250 nmol/L) Toxicity >100 ng/mL (>250 nmol/L) 17-Dal-378588:19 CBC W/Diff, Automated Comments: [facility] [address] [place], [id number] Absolute Lymph 1.25 {X10_3/ul} (Normal) Range: 0.83-4.51 [...] 4.2-5.4 WBC 3.9 K/mm3 (Abnormal) Range: 4.4-11.0 27-Tet-570969:19 Endomysial Antibody IgA Comments: [facility] (refer to report for specific site)refer to report for address and phone number ENDOMYSIAL IGA Negative (Normal) Comments: Performed at: - [facility] [id number] Director: Joaquim Barrett PhD, Phone: [phone] 34-Znu-747394:19 t-Transglutaminase IgA Comments: [facility] (refer to report for specific site)refer to report for address and phone number tTG IGA <2 U/mL (Normal) Range: 0-3 Comments: Negative 0 - 3 Weak Positive 4 - 10 Positive >10 Tissue Transglutaminase (tTG) has been identified as the endomysial anti gen. Studies have demonstr- ated that endomysial IgA antibodies have over 99% specificity for gluten sensitive enteropathy. 60-Sqq-252804:00 Culture, Urine Comments: [facility] [address] [place], [id number] CUUR See Note (Normal) Comments: Urine CultureCulture exhibits no growth. :27 CBC-Complete Blood Cnt No Diff Comments: [facility] [address] [place], [place], [phone] MPV 10.4 fL (Normal) Range: 6.2-12.0 PLT [...] K/mm3 (Abnormal) Range: 4.4-11.0 :27 Magnesium Comments: [facility] [address] [place], [place], [address] MG 2.1 mg/dL (Normal) Range: 1.8-2.4 :27 Microalb:Creat Ratio,Random UR Comments: [facility] [address] [place], [place], [address] MALB:CREAT 4.6 {mg/g_CRE} (Normal) MICROALBUMIN,UR 8.6 mg/L (Normal) UR CREAT 188.00 mg/dL (Normal) :27 Renal Profile Comments: [facility] [address] [place], [address] CO2 27.0 mmol/L (Normal) Range: 21.0-32.0 CL [...] 7-18 GLU 94 mg/dL (Normal) Range: 70-110 86-Qjd-71992:27 Vitamin D,25 Hydroxy Comments: [facility] [address] [place], [address] Vitamin D 25-OH 57.5 ng/mL (Normal) Comments: Vitamin D 25(OH) Status Range Deficiency <20 ng/mL (50nmol/L) Insuffciency 20 - 30 ng/mL (50 - 75 nmol/L) Sufficiency 30 - 100 ng/mL (75 - 250 nmol/L) Toxicity >100 ng/mL (>250 nmol/L) 8-Koi-554934:15 TSH (17201) Comments: PATIENT NOT FASTINGPERFORMED BY: [facility] Zllhwb4378 [facility] [place] [id number] TSH 2.900 {uIU/mL} (Normal) Range: 0.450-4.500 5-Fmn-545449:15 SED RATE ERYTHROCYTE (75047) Comments: PATIENT NOT FASTINGPERFORMED BY: [facility]6370 [facility] [id number] Sedimentation Rate-Westergren 2 mm/h (Normal) Range: 0-40 9-Zxv-425031:15 C-REACTIVE PROTEIN (67630) Comments: PATIENT NOT FASTINGPERFORMED BY: [facility]6370 [facility] [id number] C-Reactive Protein, Quant 1.4 mg/L (Normal) Range: 0.0-4.9 8-Qxt-077721:15 METABOLIC PANEL, COMPREHENSIVE Comments: PATIENT NOT FASTINGPERFORMED BY: [facility]6370 [facility] [id number] (13674) ALT (SGPT) 10 [iU]/L (Normal) Range: 0-32 [...] Glucose, Serum 106 mg/dL (Abnormal) Range: 65-99 0-Oql-184234:15 CBC W/AUTO DIFF WBC (98902) Comments: PATIENT NOT FASTINGPERFORMED BY: [facility] Pjhpok4360 [facility] [id number] Immature Grans (Abs) 0.0 {x10E3/uL} (Normal) Range: [...] Range: 3.4-10.8 :23 CBC W/Diff, Automated Comments: [facility] [address] [place], [address] Absolute Lymph 1.81 {X10_3/ul} (Normal) [...] 4.2-5.4 WBC 4.8 K/mm3 (Normal) Range: 4.4-11.0 78-Wuw-43367:23 Comprehensive Metabolic Profil Comments: [facility] [address] [place], [place], [address] GAP 5 (Normal) Range: 5-15 CO2 31.0 [...] 7-18 GLU 90 mg/dL (Normal) Range: 70-110 24-Ypz-77584:23 CRP, High Sensitivity Cardiac Comments: [facility] [address] [place], [place], [address] CRP HIGH SENS 2.99 mg/L (Normal) Comments: Low Relative Risk of CVD <1.0 mg/L Average Relative Risk of CVD 1.0 - 3.0 mg/L High Relative Risk of CVD >3.0 mg/L :23 Erythrocyte Sed Rate Comments: [facility] [address] [place], [place], [address] SED RATE 2 mm/h (Normal) Range: 0-30 :55 ASPIRATION (SLIDES ONLY) See Note (Normal) Comments: [facility] [address] [place], [place], [address] Comments: Patient: SUSANNE TORRES : 1950 (66/F) Acct Num: [id number] Phys: Trinh KRISHNAN,Keanu Unit Num: [id number] Loc: [facility] Specimen: [id number] Received: 01/23/171604 Spec Type: ASPIRATION TISSUES TISSUES: COMMENT Immediate cytologic evaluation to determine adequacy is not applicable. Correlation with clinical, radiologic findings and appropriate fol low up are necessary. CYTOLOGY GROSS Received are 12 smears labeled with the patient's name and designated per the requisition as left thyroid FNA. Submitted for staining. 01/24/17 TC:5 CPT: 60201 CYTOLOGY STUDY Slides are reviewed. The specimen [...] <signature on file> :39 T3, FREE (TRIDOTHYRONINE) (27076) Comments: PATIENT NOT FASTINGPERFORMED BY: [address] [id number] Triiodothyronine,Free,Serum 2.6 pg/mL (Normal) Range: 2.0-4.4 :39 T4, FREE (THYROXINE) (82278) Comments: PATIENT NOT FASTINGPERFORMED BY: [address] [id number] T4,Free(Direct) 1.49 ng/dL (Normal) Range: 0.82-1.77 49-Reb-839486:39 TSH (30137) Comments: PATIENT NOT FASTINGPERFORMED BY: [address] [id number] TSH 1.970 {uIU/mL} (Normal) Range: 0.450-4.500 1-Rle-304218:31 ANTINUCLEAR ANTIBODIES DIRECT Comments: [facility] (refer to report for specific site)refer to report for address and phone number BIBIANA-DIRECT Positive (Abnormal) Comments: Performed at: [address] [id number] Director: Joaquim Barrett PhD, Phone: [phone] [id number] CBC W/Diff, Automated Comments: [facility] [id number] [place], [address] Absolute Lymph 1.15 {X10_3/ul} (Normal) [...] K/mm3 (Normal) Range: 4.4-11.0 :31 Magnesium Comments: [facility] [id number], [address] MG 2.1 mg/dL (Normal) Range: 1.8-2.4 [id number] Protein+Creatinine Ratio,Urine Comments: [facility] [id number] [place], [id number] PROT:CRE RATIO 88 {mg/g_CRE} (Normal) Range: 0-200 PROTEIN,UR.RAN. 7.2 mg/dL (Normal) UR CREAT 81.80 mg/dL (Normal) [id number]-[id number] Renal Profile Comments: [facility] Igfzjtbblr9622 Denil[address] [place], [id number] CO2 25.0 mmol/L (Normal) Range: 21.0-32.0 CL [...] <126 mg/dLsuggests IMPAIRED HOMEOSTASIS per A.D.A. criteria. 2-Hiv-802659:31 Vitamin D,25 Hydroxy Comments: [facility] Lsuvfaphmn5934 Denil[address] [place], [id number] Vitamin D 25-OH 48.2 ng/mL (Normal) Comments: Vitamin D 25(OH) Status Range Deficiency <20 ng/mL (50nmol/L) Insuffciency 20 - 30 ng/mL (50 - 75 nmol/L) Sufficiency 30 - 100 ng/mL (75 - 250 nmol/L) Toxicity >100 ng/mL (>250 nmol/L) 58-Svb-01822:45 Culture, Urine Comments: [facility] Txssvyitwc8073 [place], [address] CUUR See Note (Normal) Comments: Urine CultureBelow infection level. ORGANISM 1: Mixed Gram Positive OrganismsColony Count <1000 88-Xuh-795757:03 CALCIFIDIOL (73625) VIT D 25 Comments: PATIENT NOT FASTINGPERFORMED BY: [facility] Mmmudf4887 [facility] [id number] Vitamin D, 25-Hydroxy 52.3 ng/mL (Normal) Range: 30.0-100.0 Comments: Vitamin D deficiency has been defined by the [place] of[place]icine and an Endocrine Society practice guideline as alevel of serum 25-OH vitamin D less than 20 ng/mL (1,2).The Endocrine Society went on to further define vitamin Dinsufficiency as a level between 21 and 29 ng/mL (2).1. IOM ([place] of Medicine). 2010. Dietary reference intakes for calcium and D. [place]: The National Academies Press.2. Micky MF, [place], Katrin CAMARGO, et al. Evaluation, treatment, and prevention of vitamin D deficiency: an Endocrine Society clinical practice guideline. JCEM. 2010; 96(7):1911-30. 40-Pvr-577617:03 Folate (77246) Comments: PATIENT NOT FASTINGPERFORMED BY: CB [facility] Layohr1265 [facility] [id number] Folate (Folic Acid), Serum >20.0 ng/mL (Normal) Comments: A serum folate concentration of less than 3.1 ng/mL isconsidered to represent clinical deficiency. 86-Eal-735366:03 VITAMIN B-12 (CYANOCOBALAMIN) Comments: PATIENT NOT FASTINGPERFORMED BY: [facility] Vtwwrw1701 [facility] [place] [id number] ([address]) Vitamin B12 469 pg/mL (Normal) Range: 211-946 29-Uvq-704320:03 TSH (24487) Comments: PATIENT NOT FASTINGPERFORMED BY: [facility] Ikoisw5618 [facility] [id number] TSH 2.240 {uIU/mL} (Normal) Range: 0.450-4.500 54-Lan-865043:03 SED RATE ERYTHROCYTE (15650) Comments: PATIENT NOT FASTINGPERFORMED BY: [facility]ville[facility]mantr6262 [facility] [id number] Sedimentation Rate-Westergren 2 mm/h (Normal) Range: 0-40 20-Jvq-314786:03 RHEUMATOID FACTOR-QUANT (20594) Comments: PATIENT NOT FASTINGPERFORMED BY: CB [facility] Bdsjyk8441 [facility] [id number] RA Latex Turbid. 12.1 {IU/mL} (Normal) Range: 0.0-13.9 51-Mwg-525005:03 METABOLIC PANEL, COMPREHENSIVE Comments: PATIENT NOT FASTINGPERFORMED BY: [facility]6370 [facility] [id number] (10418) ALT (SGPT) 15 [iU]/L (Normal) Range: 0-32 [...] mg/dL (Normal) Range: 65-99 :03 C-REACTIVE PROTEIN (57641) Comments: PATIENT NOT FASTINGPERFORMED BY: NPS6370 [facility] [id number] C-Reactive Protein, Quant 0.4 mg/L (Normal) Range: 0.0-4.9 :03 CBC (AUTO) (69309) Comments: PATIENT NOT FASTINGPERFORMED BY: [facility] Nokfsz4220 [facility] [id number] Platelets 220 {x10E3/uL} (Normal) Range: 150-379 RDW [...] ANTIBODY) Comments: PATIENT NOT FASTINGPERFORMED BY: [facility] Guhquk4961 [facility] [id number] (79898) BIBIANA Direct Positive (Abnormal) :06 ANTINUCLEAR ANTIBODIES DIRECT Comments: CMP,CBCD FOR DR PHELPS,CBCD FOR DR Hannah (refer to report for specific site)refer to report for address and phone number BIBIANA-DIRECT Negative (Normal) Comments: Performed at: - [facility] [address] [id number] Director: Joaquim Barrett PhD, Phone: [phone] :06 CBC W/Diff, Automated Comments: CMP,CBCD FOR DR PHELPS,CBCD FOR DR [facility] Ttappntvcd9966 [place], [place], [address] Absolute Lymph 1.89 {X10_3/ul} (Normal) Range: 0.83-4.51 [...] mg/dL (Normal) Range: 82-167 Comments: Performed at: [place] [id number] Director: Joaquim Barrett PhD, Phone: [phone] :06 Complement C4 Comments: CMP,CBCD FOR DR PHELPS,CBCD FOR DR Hannah (refer to report for specific site)refer to report for address and phone number COMP C4 14 mg/dL (Normal) Range: 14-44 :06 Comprehensive Metabolic Profil Comments: CMP,CBCD FOR DR LOTTunm [facility] hospitalotoniel [facility] Igakiqjify[address] [place] [address], [id number] GAP 8 (Normal) Range: 5-15 CO2 30.0 [...] Range: 70-110 :06 Magnesium Comments: CMP,CBCD FOR [facility] Kbgjrzykuv2925 [place], [id number] MG 2.1 mg/dL (Normal) Range: 1.8-2.4 :06 Protein+Creatinine Ratio,Urine Comments: CMP,CBCD FOR [facility] Rmecsjdglg2790 [place]bhavana [place], [address] PROT:CRE RATIO 128 {mg/g_CRE} (Normal) Range: 0-200 PROTEIN,UR.RAN. 13.8 mg/dL (Abnormal) UR CREAT 108.00 mg/dL (Normal) :06 Vitamin D,25 Hydroxy Comments: CMP,CBCD FOR [facility] Bfastsanph3363 [place]bhavana [place], [address] Vitamin D 25-OH 48.7 ng/mL (Normal) Comments: Vitamin D 25(OH) Status Range Deficiency <20 ng/mL (50nmol/L) Insuffciency 20 - 30 ng/mL (50 - 75 nmol/L) Sufficiency 30 - 100 ng/mL (75 - 250 nmol/L) Toxicity >100 ng/mL (>250 nmol/L) 8-Emt-359208:07 Fecal Occult Blood , Office (31734) Fecal Occult Blood , Office (Inhouse) negative (Normal) :22 CBC W/Diff, Automated Comments: RENAL AND MG ARE FOR [facility] Belelhhdcl1945 [place], [address] Absolute Lymph 1.92 {X10_3/ul} (Normal) [...] Comments: RENAL AND MG ARE FOR DR. CLEMENSunm [facility] hospitaloton[facility] [address] [place], [address] GAP 6 (Normal) Range: 5-15 [...] 7-18 GLU 87 mg/dL (Normal) Range: 70-110 37-Vnp-87879:22 Lipid Profile Comments: RENAL AND MG ARE FOR DR. Hollingsworthotoniel [facility] Zzlnfepngt0143 [place]ana [place], [place], [address] VLDL 12 mg/dL (Normal) Range: 5-40 LDL [...] Comments: RENAL AND MG [facility] Rphsnjbkbu7914[place], [address] MG 2.1 mg/dL (Normal) Range: 1.8-2.4 :22 Phosphorus Comments: RENAL AND MG ARE FOR [facility] Qletwchqud5662 [place], [address] PHOS 2.6 mg/dL (Normal) Range: 2.5-4.9 :22 Thyroid Stim Hormone (TSH) Comments: RENAL AND MG ARE FOR [facility] Sdhhfnbrdc9167 [place], [address] TSH 2.69 {uIU/mL} (Normal) Range: 0.358-3.74 :22 Vitamin D,25 Hydroxy Comments: RENAL AND MG ARE FOR [facility] Fqojwrzsxc5361[place], [address] Vitamin D 25-OH 51.1 ng/mL (Normal) [...] number BIBIANA-DIRECT Positive (Abnormal) Comments: Performed at: [address] [id number] Director: Joaquim Barrett PhD, Phone: [phone] :[phone] CBC W/Diff, Automated Comments: [facility] Dyxdrjqxgx1688 [place], [address] Absolute Lymph 1.76 {X10_3/ul} (Normal) Range: [...] mg/dL (Normal) Range: 82-167 Comments: Performed at: [address] [id number] Director: Joaquim Barrett PhD, Phone: [phone] :[phone] Complement C4 Comments: [facility] (refer to report for specific site)refer to report for address and phone number COMP C4 15 mg/dL (Normal) Range: 14-44 :50 Comprehensive Metabolic Profil Comments: ORDERED CMP CBCD PROCRE UACDR.SHELLEY ORDERED VITD CMP BIBIANA CBCD C3 C4 MG PROCRE UADR.ENDY ORDERED [facility] Wbrzulesah8794 [address]. [place], [place], [address] GAP 5 (Normal) Range: 5-15 CO2 28.0 [...] (Normal) Range: 70-110 :50 Culture, Urine Comments: [facility] Bxbvcfeqco4070 [address]. [place], [place], [address] CUUR See Note (Normal) Comments: Urine CultureCulture exhibits no growth. :50 Magnesium Comments: ORDERED CMP CBCD PROCRE UACDR.SHELLEY ORDERED VITD CMP BIBIANA CBCD C3 C4 MG PROCRE UADR.ENDY ORDERED [facility] Ysbkolxwgi0074 [place], [address] MG 2.1 mg/dL (Normal) Range: 1.8-2.4 :50 Protein+Creatinine Ratio,Urine Comments: [facility] Jygwbaewlv2216 [place], [address] PROT:CRE RATIO 161 {mg/g_CRE} (Normal) Range: 0-200 PROTEIN,UR.RAN. 10.6 mg/dL (Normal) UR CREAT 65.90 mg/dL (Normal) :50 Urinalysis, Routine (Dipstick) Comments: How was Urine Obtained? CLEAN [facility] Wnbnfrjmqq3479 [place], [address] LEUK ESTERASE 25 /ul (Abnormal) [...] Yellow (Normal) :50 Vitamin D,25 Hydroxy Comments: [facility] Hzoywjfufb8391 [place], [address] Vitamin D 25-OH 58.7 ng/mL (Normal) Comments: Vitamin D 25(OH) Status Range Deficiency <20 ng/mL (50nmol/L) Insuffciency 20 - 30 ng/mL (50 - 75 nmol/L) Sufficiency 30 - 100 ng/mL (75 - 250 nmol/L) Toxicity >100 ng/mL (>250 nmol/L) :33 Lipid Profile Comments: [facility] Rtgpwvkekm3294 [place], [place], [address] VLDL 18 mg/dL (Normal) Range: 5-40 LDL [...] High Risk 27-Jul-20158:33 Vitamin D,25 Hydroxy Comments: [facility] Zgbhfeqxwk4[address] [place], [place], [address] Vitamin D 25-OH 43.3 ng/mL (Normal) Comments: Vitamin D 25(OH) Status Range Deficiency <20 ng/mL (50nmol/L) Insuffciency 20 - 30 ng/mL (50 - 75 nmol/L) Sufficiency 30 - 100 ng/mL (75 - 250 nmol/L) Toxicity >100 ng/mL (>250 nmol/L) 68-Omb-346208:12 EBV Acute Prof IgG / IgM Comments: [...] - Antibody Ab sentPerformed at: - [facility] [address] [id number] Director: Joaquim Barrett PhD, Phone: [phone] EB-NAg [id number] 38.3 U/mL (Abnormal) Range: 0.0-17.9 Comments: Negative <18.0 Equivocal 18.0 - 21.9 Positive >21.9 EB-VCA [id number] 306.0 U/mL (Abnormal) Range: 0.0-17.9 Comments: Negative <18.0 Equivocal 18.0 - 21.9 Positive >21.9 EB-EA IgG 13334 <9.0 U/mL (Normal) Range: 0.0-8.9 Comments: Negative < 9.0 Equivocal 9.0 - 10.9 Positive >10.9 EB-VCA [id number] < 36.0 U/mL (Normal) Range: 0.0-35.9 Comments: Negative <36.0 Equivocal 36.0 - 43.9 Positive >43.9 :15 Immunofixation Urine Comments: PATIENT STATES FLU X'S 2 WAS DONE AT THE OFFICE BY ONE OFTHE NURSES.[facility] (refer to report for specific site)refer to report for address and phone number CLIVE Urine Comment (Normal) Comments: No monoclonality detected.Performed at: [facility] [id number] Director: Joaquim Barrett PhD, Phone: [phone] :15 Immunofixation, Serum Comments: PATIENT STATES FLU [...] 1776 697 mg/dL (Abnormal) Range: 700-1600 :15 [place] [employer] Chains Comments: PATIENT STATES FLU [...] % (Normal) BETA GLOB,U 30.8 % (Normal) GIROY-9-IKLO,U 16.9 % (Normal) MCDEQ-3-OGNC,U 1.8 % (Normal) ALBUMIN,UR 35.1 % (Normal) PROTEIN,UR 13.0 mg/dL (Normal) Range: 0.0-15.0 76-Fqh-419240:15 Protein Electroph, S Comments: PATIENT STATES FLU X'S 2 WAS DONE AT THE OFFICE BY ONE OFTHE NURSES.[facility] (refer to report for specific site)refer to report for address and phone number NOTE Comment (Normal) Comments: Protein electrophoresis scan will follow via computer,mail, or automotive refinish technician delivery. NOTE: Comment (Normal) Comments: The SPE pattern appears essentially unremarkable. Evidenceof monoclonal protein is not apparent. INTERPRETATION Comment (Normal) Comments: Protein electrophoresis scan will follow via computer,mail, or automotive refinish technician delivery. A/G RATIO 1.7 (Normal) Range: 0.7-2.0 GLOBULIN, TOTAL 2.3 g/dL (Normal) Range: 2.0-4.5 M-SPIKE (Normal) Comments: Not Observed GAMMA GLOBULIN 0.7 g/dL (Normal) Range: 0.5-1.6 BETA GLOBULIN 0.8 g/dL (Normal) Range: 0.6-1.3 ALPHA-2 GLOBUL 0.6 g/dL (Normal) Range: 0.4-1.2 ALPHA-1 GLOBUL 0.2 g/dL (Normal) Range: 0.1-0.4 ALBUMIN 3.9 g/dL (Normal) Range: 3.2-5.6 PROTEIN,TOTAL 6.2 g/dL (Normal) Range: 6.0-8.5 90-Qjg-448826:22 Rapid Flu (68369 x 2) Influenza A Ag negative (Normal) 16-Gfh-327392:56 Vitamin D,25 Hydroxy Comments: [facility] Jgbshdbnwj6486 [address]. [place], [place], [address] Vitamin D 25-OH 87.5 ng/mL (Normal) Comments: Vitamin D 25(OH) Status Range Deficiency <20 ng/mL (50nmol/L) Insuffciency 20 - 30 ng/mL (50 - 75 nmol/L) Sufficiency 30 - 100 ng/mL (75 - 250 nmol/L) Toxicity >100 ng/mL (>250 nmol/L) :31 CBC W/Diff, Automated Comments: [facility] Eezbdibpca4232 [address]. [place], [place], [address] Absolute Lymph 1.68 {X10_3/ul} (Normal) Range: 0.83-4.51 [...] Range: 4.4-11.0 :31 Comprehensive Metabolic Profil Comments: [facility] [address] [place], [place], [address] GAP 3 (Abnormal) Range: 5-15 CO2 32.0 [...] (Normal) Range: 70-110 :31 Protein+Creatinine Ratio,Urine Comments: [facility] [address] [place], [place], [address] PROT:CRE RATIO 180 {mg/g_CRE} (Normal) Range: 0-200 PROTEIN,UR.RAN. 39.2 mg/dL (Abnormal) UR CREAT 218.00 mg/dL (Normal) :31 Urinalysis, Complete Comments: How was Urine Obtained? [facility] [address]joozjgsei[address] [facility] [place], [address] AMORPHOUS 1+ (Normal) MUCUS, URINE [...] CLARITY Sl. Cloudy (Normal) COLOR Yellow (Normal) 09-Opg-621727:20 Basic Metabolic Profile (BMP) Comments: [facility] Sosvtxrddy4267 [facility]. [place], [place], [address] GAP 6 (Normal) Range: 5-15 CO2 30.0 [...] 7-18 GLU 89 mg/dL (Normal) Range: 70-110 78-Sri-068924:20 CBC-Complete Blood Cnt No Diff Comments: [facility] Drgvkuotxr2993 [place], [address] MPV 9.2 fL (Normal) Range: [...] 4.2-5.4 WBC 4.7 K/mm3 (Normal) Range: 4.4-11.0 29-Ouc-923177:01 Basic Metabolic Profile (BMP) Comments: Test performed at:[facility] Hzpwsknyee7376 [place] [address] GAP 4 (Abnormal) Range: 5-15 [...] 7-18 GLU 97 mg/dL (Normal) Range: 70-110 64-Boh-313841:01 Vitamin D,25 Hydroxy Comments: Test performed at:[facility] Wihrgledaw7885 [place] [address] Vitamin D 25-OH 22.7 ng/mL (Normal) Comments: Vitamin D 25(OH) Status Range Deficiency <20 ng/mL (50nmol/L) Insuffciency 20 - 30 ng/mL (50 - 75 nmol/L) Sufficiency 30 - 100 ng/mL (75 - 250 nmol/L) Toxicity >100 ng/mL (>250 nmol/L) :12 CBC W/Diff, Automated Comments: Test performed at:[facility] Xhrkmtvypr3662 [address] [place], [place] [address] Absolute Lymph 1.39 {X10_3/ul} (Normal) Range: 0.83-4.51 [...] :12 Comprehensive Metabolic Profil Comments: Test performed at:[facility] Dkjurytmmt3234 [place] [address] GAP 9 (Normal) Range: 5-15 [...] :52 CBC W/Diff, Automated Comments: Test performed at:[facility] Elhypzhqji9335 [place] [address] Absolute Lymph 1.62 {X10_3/ul} (Normal) [...] :52 Comprehensive Metabolic Profil Comments: Test performed at:[facility] Iusbubgpjp4089 [address] [place], [place] [address] GAP 6 (Normal) Range: 5-15 CO2 31.0 [...] 7-18 GLU 77 mg/dL (Normal) Range: 70-110 0-Hvn-864337:40 FENTANYL Blood Level Comments: Test performed at:[facility] Ch[address]yskykh[address] [facility] [place] [address] FENTANYL BLD (Normal) Comments: Sent directly to testing facility per ordering physician.02/16/15 1622 AIXA :53 CBC W/Diff, Automated Comments: Test performed at:[facility] [address]bx[address] [place], [place] [address] Absolute Lymph 1.44 {X10_3/ul} (Normal) Range: 0.83-4.51 [...] :53 Comprehensive Metabolic Profil Comments: Test performed at:[facility] Gfjpcvlwyw5577 [facility] [place] [address] GAP 5 (Normal) Range: 5-15 [...] 70-110 :53 Lipid Profile Comments: Test performed at:[facility] Ubbphlyeiu9494 [facility] [place] [address] VLDL 13 mg/dL (Normal) Range: [...] 200-240 mg/dL Borderline >240 mg/dL High Risk 57-Foh-96739:53 Vitamin D,25 Hydroxy Comments: Test performed at:[facility] [address]fr[address]fsqz[address] [place] [address] Vitamin D 25-OH 27.3 ng/mL (Normal) Comments: Vitamin D 25(OH) Status Range Deficiency <20 ng/mL (50nmol/L) Insuffciency 20 - 30 ng/mL (50 - 75 nmol/L) Sufficiency 30 - 100 ng/mL (75 - 250 nmol/L) Toxicity >100 ng/mL (>250 nmol/L) 6-Mlp-996369:14 Culture, Urine Comments: Test performed at:[facility] Cpzdeyyddz1003 [place] [address] ; ordered by endy JACKSON See Note (Normal) Comments: Urine CultureCulture exhibits no growth. 8-Tya-929458:14 Urinalysis, Routine (Dipstick) Comments: How was Urine Obtained? CLEAN CATCHTest performed at:[facility] Pfaybqjrda4837 [place] [address] LEUK ESTERASE Negative /ul (Normal) OCCULT BLOOD-UR Negative /ul (Normal) NITRITE UR Negative (Normal) UROBILI Normal mg/dL (Normal) PROT DIPSTX Negative mg/dL (Normal) pH UR 5.0 (Normal) Range: 5.0 - 8.0 SP.GR. DIPSTX 1.030 (Normal) Range: 1.002-1.030 KETONE UR Negative mg/dL (Normal) BILIRUBIN URINE Negative mg/dL (Normal) GLUCOSE, UR Normal mg/dL (Normal) CLARITY Clear (Normal) COLOR Yellow (Normal) 62-Iay-333425:19 FENTANYL Blood Level Comments: Test performed at:[facility] [address] [place] [address] FENTANYL BLD (Normal) Comments: Scanned image report available in EMR :48 CBC W/Diff, Automated Comments: Test performed at:[facility] [address]zzgtbw[address] [place] [address] Absolute Lymph 2.34 {X10_3/ul} (Normal) [...] :48 Comprehensive Metabolic Profil Comments: Test performed at:[facility] Eq[address]zwurnmm[address] [place] [address] GAP 4 (Abnormal) Range: 5-15 [...] CMV Acute Antibody IgM Comments: Test performed at:[facility] Kzqagggepu6406 [facility]. [place] [id number] CMVIgM AB < 30.0 AU/mL (Normal) Range: 0.0-29.9 Comments: Negative <30.0 Equivocal 30.0 - 34.9 Positive >34.9A positive result is generally indicative of acuteinfection, react ivation or persistent IgM production.Performed at: - [facility] [id number] Director: Yury Cornelius PhD, Phone: [phone] :39 CMV Antibody IgG Comments: Test performed at:[facility] Wshxmgpgfz2139 [place] [address] CMV AB IgG < 0.60 U/mL (Normal) Range: 0.00-0.59 Comments: Negative <0.60 Equivocal 0.60 - 0.69 Positive >0.69 :39 Comprehensive Metabolic Profil Comments: Test performed at:[facility] Ong[address]xjnoyd[address] [place] [address] GAP 4 (Abnormal) Range: 5-15 [...] Prof IgG / IgM Comments: Test performed at:[facility] Uyfetlhxek4814 [place] [address] INTERPRETATION Comment (Normal) Comments: EBV Interpretation ChartInterpretation EBV-IgM VCA-IgG EBNA-IgG EA(D)-IgGEBV Seronegative - - - -Early Phase + - - -Acute Primary + + - +or-InfectionConvalescence/Past - + + +or-InfectionReactivated +or- + + +Infection + Antibody Present - Antibody Absent EB-NAg [id number] 36.1 U/mL (Abnormal) Range: 0.0-17.9 Comments: Negative <18.0 Equivocal 18.0 - 21.9 Positive >21.9 EB-VCA RiE36247 289.0 U/mL (Abnormal) Range: 0.0-17.9 Comments: Negative <18.0 Equivocal 18.0 - 21.9 Positive >21.9 EB-EA IgG 65345 <9.0 U/mL (Normal) Range: 0.0-8.9 Comments: Negative < 9.0 Equivocal 9.0 - 10.9 Positive >10.9 EB-VCA [id number] < 36.0 U/mL (Normal) Range: 0.0-35.9 Comments: Negative <36.0 Equivocal 36.0 - 43.9 Positive >43.9 :39 Lipid Profile Comments: Test performed at:[facility] [address] [place] [address] VLDL 11 mg/dL (Normal) Range: 5-40 [...] :39 Vitamin D,25 Hydroxy Comments: Test performed at:[facility] [address]az[address] [place] [address] Vitamin D 25-OH 36.8 ng/mL (Normal) Comments: Vitamin D 25(OH) Status Range Deficiency <20 ng/mL (50nmol/L) Insuffciency 20 - 30 ng/mL (50 - 75 nmol/L) Sufficiency 30 - 100 ng/mL (75 - 250 nmol/L) Toxicity >100 ng/mL (>250 nmol/L) 26-Guu-278490:32 URINE MICHI CULTURE-ZACHARY COL Comments: PATIENT NOT FASTINGPERFORMED BY: [facility] [id number] Information: SRC:UR [id number] COUNT (94878) Result 1 ENTECC (Abnormal) Comments: Enterobacter cloacae [...] S Urine Final report Culture,Comprehensi (Abnormal) ve 26-Zku-14231:50 Urinalysis, Office (81815) UA - LEUKOCYTE ESTERASE Small (Normal) UA [...] :00 BIBIANA Positive (Abnormal) Comments: Performed at: [facility] [id number] Director: Yury Cornelius PhD, Phone: [phone] :[phone] ANEX FRANCOIS-[facility] <0.2 {AI} (Normal) Range: 0.0-0.9 FRIT MIXER-[facility] >8.0 {AI} (Abnormal) Range: 0.0-0.9 : ANTIJO-[facility] <0.2 {AI} (Normal) Range: 0.0-0.9 : ANTISCL-[facility] <0.2 {AI} (Normal) Range: 0.0-0.9 : C3 108 (Normal) Range: 90-180 Comments: Result Units: mg/dL AdultPerformed at: CB - [facility] [address] [id number] Director: Yury Cornelius PhD, Phone: [phone] : C4 15 (Normal) Range: 9-36 Comments: [...] UCLAR Sl. Cloudy (Normal) UCOL Yellow (Normal) 0-Jvq-573024:53 CUUR URC See Note (Normal) Comments: ORGANISM 1: Mixed Gram Positive OrganismsColony Count 1000-10,000MIX CONTAM Mixed Contaminants. Submit new specimen if indicated. 71-For-090924:07 BIBIANA Positive (Abnormal) Comments: Performed at: - [address] [id number] Director: Yury Cornelius PhD, Phone: [phone] 12-Imk-246651:07 CBCD ALC 1.50 {X10_3/ul} (Normal) Range: 0.83-4.51 [...] HEBSAG ttHEBSAG Negative (Normal) Comments: Performed at: [address] [id number] Director: Yury Cornelius PhD, Phone: [phone] at: [address] [place] [address] [id number] Director: Rogelio Randle PhD, Phone: [phone] at: [address] [id number] Director: Murray Mabry MD, Phone: [phone] :[phone] HECAB tHECAB <0.1 {s/co_ratio} (Normal) Range: 0.0-0.9 Comments: Negative: < 0.8Indeterminate: 0.8 - 0.9Positive: > 0.9In order to reduce the incidence of a false positiveresult, the CDC recommends that all s/co ratiosbetween 1.0 and 10.9 be confirmed b y a more specificsupplemental or PCR testing. [facility] offers HCV Abw/Reflex to Verification test #[id number]. :07 HLAB27 tHLAB27 Negative (Normal) Comments: HLA-B*27 NegativeHLA Lab CLIA ID Number [id number] test was performed using PCR (Polymerase ChainReaction)/SSOP [...] :37 BID 0.21 mg/dL (Normal) Comments: Comments: [id number]; CALCIFEDOIL;PLASMA;RF Range: 0.00-0.30 :37 CBCD ALC 1.03 [...] (Abnormal) Range: 4.4-11.0 :37 CMP Comments: Comments: [id number]; CALCIFEDOIL;PLASMA;RF GAP 7 (Normal) Range: 5-15 CO2 [...] (Normal) Range: 70-110 :37 LIPID Comments: Comments: [id number]; CALCIFEDOIL;PLASMA;RF VLDL 24 mg/dL (Normal) Range: 5-40 LDL 71 mg/dL (Normal) Range: 0-130 HDL 40 mg/dL (Normal) Comments: Reference RangeHDL <40 mg/dL Low HDL CholesterolHDL >or= 60 mg/dL High HDL Cholesterol CHOL 135 mg/dL (Normal) Comments: <200 mg/dL Yfajgksyb776-779 mg/dL Borderline>240 mg/dL High Risk TRIG 122 mg/dL (Normal) Range: 0-199 Comments: Serum Triglycerides Reference IntervalNormal <150 mg/dLBorderline high 150 - 199 mg/dLHigh 200 - 499 mg/ dLVery High > or = 500 mg/dL 46-Otc-570806:37 TSH 1.70 {uIU/mL} (Normal) Comments: Comments: [id number]; CALCIFEDOIL;PLASMA;RF Range: 0.358-3.74 10-Vzv-533925:30 VITD 57.3 mg/mL (Normal) Comments: Vitamin D 25(OH) Status RangeDeficiency <20 ng/mL (50nmol/L)Insuffciency 20 - 30 ng/mL (50 - 75 nmol/L)Sufficiency 30 - 100 ng/mL (75 - 250 nmol/L)Toxicity >100 ng/mL (>250 nmol/L) :27 URINE MICHI CULTURE-ZACHARY COL Comments: PATIENT NOT FASTINGPERFORMED BY: [facility] [id number] [facility] [id number] Information: SRC:UR [id number] COUNT ([id number]) Antimicrobial MIHEAD (Normal) Comments: S = Susceptible; [...] primarily for treating urinary tract infections. (CLSI, H001-F20,2009) Urine Final report (Abnormal) Culture,Comprehensive 83-Htz-802864:11 Urinalysis, Office (03812) UA - LEUKOCYTE ESTERASE Trace (Normal) UA - NITRITE Negative (Normal) URINE UROBILINGN ZACHARY TIMED Normal mg/dL (Normal) UA - PROTEIN Negative mg/dL (Normal) UA - PH 6 (Abnormal) UA - BLOOD Hemolyzed Trace (Normal) UA - SPECIFIC GRAVITY 1.025 (Normal) UA - KETONES Small mg/dL (Normal) UA - BILIRUBIN Small (Normal) UA - GLUCOSE Negative (Normal) 01-Eby-192565:28 MICHI CULTURE-OTHER (22966) Comments: PATIENT NOT FASTINGPERFORMED BY: JOHN [facility] [id number] [place] [id number] Information: SRC:FRANKLIN [id number] Result 1 RRF (Normal) Comments: Routine respiratory christ Upper Respiratory Culture Final report (Normal) : ARUNA 42 U/L (Normal) Range: 25-115 10 90-Fse-752094:10 CBCD ANC 5.0 {X10_3/uL} (Normal) Range: 2.0-7.7 [...] U/L (Abnormal) Range: 70-290 :17 Urinalysis, Office (86739) UA - LEUKOCYTE ESTERASE Small (Normal) UA [...] Range: 16.0-45.0 19 Comments: Performed at: - [facility] [id number] Director: Yury Cornelius PhD, Phone: [phone] : GOLD 194 ng/mL (Normal) Range: 8-252 19 :31 LIVER BID 0.17 mg/dL (Normal) Range: 0.00-0.30 BIT 0.50 mg/dL (Normal) Range: 0.00-1.00 ALT 134 U/L (Abnormal) Range: 12-78 ALK 111 U/L (Normal) Range: 50-136 AST 107 U/L (Abnormal) Range: 15-37 ALB 3.8 g/dL (Normal) Range: 3.4-5.0 TPROT 6.7 g/dL (Normal) Range: 6.4-8.2 :08 URINE MICHI CULTURE-ZACHARY COL Comments: PATIENT NOT FASTINGPERFORMED BY: [facility] [address] [id number] Information: SRC:UR [id number] COUNT ([id number]) Antimicrobial MIHEAD (Normal) Comments: S = Susceptible; [...] Final report Culture,Comprehensive (Normal) :55 Urinalysis, Office (17676) UA - BILIRUBIN Negative (Normal) UA - BLOOD Negative (Normal) UA - GLUCOSE Negative (Normal) UA - KETONES Negative mg/dL (Normal) UA - LEUKOCYTE ESTERASE Trace (Normal) UA - NITRITE Negative (Normal) UA - PH 5.0 (Normal) Comments: 5.5 UA - PROTEIN Negative mg/dL (Normal) UA - SPECIFIC GRAVITY 1.025 (Normal) Comments: > 1.030 URINE UROBILINGN ZACHARY TIMED Normal mg/dL (Normal) 69-Ita-554718:50 CHEST WITHOUT CONTRAST Radiology Report See Note [...] Payan M.D.December 29, 2012 at 4:08:08 PM [id number] ly Signed GP/GP If you are the referring physician and would like to consult with theradiologist who provided this interpretation, please contact Nicolas Boyer at [phone]. If this radiolo gist is unavailable, youwill be directed to another radiologist to assist. If you are a patient with a question regarding this report, pleasecontactyour referring physician directly. Professional Interp retation Provided By: [employer], Phone , These documents contain legally protected [...] 12/29/12 161 Sign by: Bayron Payan MD 56-Dzq-48629:46 LIVER Radiology Report See Note (Normal) Comments: PROCEDURE: ABDOMINAL ULTRASOUND - RIGHT UPPER QUADRANT REASON FOR VISIT: Female, 62 years old. Elevated liver functiontests. TECHNIQUE: Ultrasound evaluation of the right upper quadrant [facility] with real-time and static fairchild-scale [...] size of the right kidney. The right plgxvzpfsvpvom44.1 cm. Normal renal cortex. The right cortex measure s 0.9 cm. Thereisa 1.5 cm x 1.7 cm by 1.1-cm cyst along the medial portion of the kidney.There is no right hydronephrosis. IMPRESSION:Small right renal cyst. Signed:Bayron Payan M.D.December 16, 2012 at 10:11:37 AM [id number] Signed GP/GP If you are the referring physician and would like to consult with theradiologist who provided this interpretation, please contact Anish brewer M.D. at [phone]. If this radiologist is unavailable, youwill be directed to another radiologist to assist. If you are a patient with a question regarding this report, pleasecontactyour referr ing physician directly. Professional Interpretation Provided By: [employer], Phone , These documents contain legally protected [...] 12/16/12 1014 Sign by: Bayron Payan MD 18-Vsb-376228:17 EBGM EBNA > 8.0 {AI} (Abnormal) Range: 0.0-0.8 Comments: Negative <0.9Equivocal 0.9 - 1.0Positive >1.0 tEBINT Comment (Normal) Comments: EBV Interpretation Chart.Interpretation VCA-IgM EA-IgG VCA-IgG NA-ABS.Susceptible - - - -Acute Infection + +or- +or- -Convalescent Phas e +or- +or- + +Chronic or Reactivated - + + +or-Old Infection - - +or- ++ Antibody Present - Antibody AbsentPerformed at: [facility] [id number] Director: Yury Cornelius PhD, Phone: [phone] EBVG > 8.0 {AI} (Abnormal) Range: 0.0-0.8 Comments: Negative <0.9Equivocal 0.9 - 1.0Positive >1.0 EBEAG <0.2 {AI} (Normal) Range: 0.0-0.8 Comments: Negative <0.9Equivocal 0.9 - 1.0Positive >1.0 EBVM < 0.2 {AI} (Normal) Range: 0.0-0.8 Comments: Negative <0.9Equivocal 0.9 - 1.0Positive >1.0 70-Cwj-324058:17 HEABC tHEPCCOMM Comment (Normal) Comments: Non reactive [...] (Normal) ttHEBSAG Negative (Normal) HEAM Negative (Normal) 40-Ofd-071844:17 LIVER BID 0.12 mg/dL (Normal) Range: 0.00-0.30 BIT 0.40 mg/dL (Normal) Range: 0.00-1.00 ALT 182 U/L (Abnormal) Range: 12-78 ALK 122 U/L (Normal) Range: 50-136 AST 121 U/L (Abnormal) Range: 15-37 ALB 4.1 g/dL (Normal) Range: 3.4-5.0 TPROT 7.3 g/dL (Normal) Range: 6.4-8.2 59-Inl-238725:17 TSH 1.08 {uIU/mL} (Normal) Range: 0.358-3.74 27-Jun-20128:46 [...] Signed:Clark D.O.June 27, 2012 at 5:23:04 PM [id number] Signed DL/DL If you are the referring physician and would like to consult with theradiologist who provided this interpretati on, please contact Mone Lazo at [phone]. If this radiologist is unavailable, you will bedirected to another radiologist to assist. If you are a patient with a question regarding this report , pleasecontactyour referring physician directly. Professional Interpretation Provided By: [employer], Phone , These documents contain legally protected [...] on 06/27/121727 Sign by: Kamilla Epperson DO 5-Hjb-274513:41 DEXA BONE DENSITY STUDY (HP) Radiology Report [...] Payan M.D.June 26, 2012 at 11:52:03 AM [id number] Signed GP/GP If you are the referring physician and would like to consult with theradiologist who provided this interpretation, please contact Nicolas Boyer at [phone]. If this radiologist is unavailable, youwill be directed to another radiologist to assist. If you are a patient with a question regarding this report, pleasecontactyour referring physician directly. Professional Interpretation Provided By: [employer], Phone , These documents contain lega lly [...] 06/26/12 1232 Sign by: Bayron Payan MD 54-Qrj-843163:08 T4, FREE (THYROXINE) Comments: PATIENT NOT FASTINGPERFORMED BY: [facility]6[address] [facility] [id number] Information: [id number] (45827) T4,Free(Direct) 1.34 ng/dL (Normal) Range: 0.82-1.77 :08 T3, FREE (TRIDOTHYRONINE) (14717) Comments: PATIENT NOT FASTINGPERFORMED BY: [facility]villeMsddst9915 [facility] [id number] Triiodothyronine,Free,Serum 2.7 pg/mL (Normal) Range: 2.0-4.4 :08 TSH (57695) Comments: PATIENT NOT FASTINGPERFORMED BY: [facility] DenvilleNcvuna3559 [facility] [id number] TSH 1.370 {uIU/mL} (Normal) Range: 0.450-4.500 :58 [...] D deficiency has been defined by the [place] of[place]icine and an Endocrine Society practice guideline as alevel of serum 25-OH vitamin D less than 20 ng/mL (1,2).The Endocrine Society went on to further define vitamin Dinsufficiency as a level between 21 and 29 ng/mL (2).1. IOM ([place] of [place]). 2010. Dietary reference intakes for calcium and D. [place]: The National Academies Press.2. Micky MF, Jessenia SYKES, Katrin CAMARGO, et al. Evaluation, treatment, and prevention of vitamin D deficiency: an Endocrine Society clinical practice guideline. JCEM. 2010; 96(7): 1911-30.Performed at: [address] [id number] Director: Yury Cornelius PhD, Phone: [phone] 22-Dec-20110:00 CHEST WITHOUT CONTRAST Radiology Report See [...] Signed BP/ BP Professional Interpretation Provided By: [facility] [employer] [facility], , To consult with a radiologist regarding this report, please call our [id number] junaita jacqueline @ Dictated on 12/22/11 1022 by [...] D deficiency has been defined by the [place] ofM[facility]it[facility] Hospitalcine and an Endocrine Society practice guideline as alevel of serum 25-OH vitamin D less than 20 ng/mL (1,2).The Endocrine Society went on to further define vitamin Dinsufficiency as a level between 21 and 29 ng/mL (2).1. IOM ([place]). 2010. Dietary reference intakes for calcium and D. [place]: The National Academies Press.2. Micky SO, Jessenia SYKES, Katrin CAMARGO, et al. Evaluation, treatment, and prevention of vitamin D deficiency: an Endocrine Society clinical practice guideline. JCEM. 2010; 96(8): 1911-30.Performed at: [address], [place], [place] [id number] Director: Alma Rodríguez MD, Phone: [phone] :47 CBCD,SMEAR DIFF RED CELL MORPH SeeNote [...] mg/dL (Normal) Range: 70-110 :47 VIT D,25 97071 81.4 ng/mL (Normal) Range: 30.0-100.0 Comments: Vitamin D deficiency has been defined by the [place] of[place]icine and an Endocrine Society practice guideline as alevel of serum 25-OH vitamin D less than 20 ng/mL (1,2).The Endocrine Society went on to further define vitamin Dinsufficiency as a level between 21 and 29 ng/mL (2).1. IOM ([place]). 2011. Dietary reference intakes for calcium and D. [place]: The National Academies Press.2. Micky MF, Jessenia [place], Ana Paula-Trino CAMARGO, et al. Evaluation, treatment, and prevention of vitamin D deficiency: an Endocrine Society clinical practice guideline. JCEM. 2010; 96(7): 1911-30. Please note reference interval changePerformed at: [address] [id number] Director: Alma Rodríguez MD, Phone: [phone] 24-Fje-733500:11 CHEST WITHOUT CONTRAST Radiology Report See Note [...] SED RATE 11 mm/h (Normal) Range: 0-30 42-Rnk-33202:46 RIBS UNIL 2V NO CXR Radiology Report [...] >240 mg/dL High Risk :18 VIT D,25 40739 78.0 ng/mL (Normal) Comments: appt 11/14/10 Range: 32.0-100.0 Comments: Recent studies consider the lower limit of 32.0 ng/mL to bradley threshold for optimal health.William VIVAR. J Nutr. 2004;135(2):317-22.Performed at: - [facility] [address] [id number] Director: Alma Rodríguez MD, Phone: [phone] :[phone] COMP METABOLIC GAP 9 (Normal) Range: [...] >240 mg/dL High Risk :19 VIT D,25 83364 55.3 ng/mL (Normal) Range: 32.0-100.0 Comments: Recent studies consider the lower limit of 32.0 ng/mL to bradley threshold for optimal health.William VIVAR. J Nutr. 2004;135(2):317-22.Performed at: [place] [address]Lab Director: Alma Rodríguez MD, Phone: [phone] 83-Dsp-38795:00 BILAT SCRN DIGITAL & CAD Radiology Report [...] COLUNGA MCKESSONSign by SLOANE TRIVEDI on 06/14/10 7389 Sign by: SLOANE TRIVEDI 12-Cqk-01821:57 COMP METABOLIC ALK P 82 U/L (Normal) [...] CHOL 204 mg/dL (Abnormal) Comments: <200 mg/dL Bpslqtrvs196-919 mg/dL Borderline>240 mg/dL High Risk HDL 48 mg/dL (Normal) Comments: Reference RangeHDL <40 mg/dL Low HDL CholesterolHDL >or= 60 mg/dL High HDL Cholesterol LDL 136 mg/dL (Abnormal) Range: 0-130 TRIG 102 mg/dL (Normal) Comments: Serum Triglycerides Reference IntervalNormal <150 mg/dLBorderline high 150 - 199 mg/dLHigh 200 - 499 mg/ dLVery High > or = 500 mg/dL :57 VIT D,25 02089 53.8 ng/mL (Normal) Range: 32.0-100.0 Comments: Recent studies consider the lower limit of 32.0 ng/mL to bradley threshold for optimal health.William VIVAR. J Nutr. 2004;135(2):317-22.Performed at: [facility] LabKrist[place] [address]Lab Director: Alma Rodríguez MD, Phone: [phone] :13 LIPID HDL 49 mg/dL (Normal) Comments: [...] CHOL 190 mg/dL (Normal) Comments: <200 mg/dL Dohxvwkfb443-813 mg/dL Borderline>240 mg/dL High Risk :13 LIVER ALB 3.6 g/dL (Normal) Range: 3.4-5.0 ALK P 92 U/L (Normal) Range: 50-136 ALT 21 U/L (Normal) Range: 12-78 AST 15 U/L (Normal) Range: 15-37 D BILI 0.13 mg/dL (Normal) Range: 0.00-0.30 T BILI 0.50 mg/dL (Normal) Range: 0.00-1.00 T PROT 6.9 g/dL (Normal) Range: 6.4-8.2 :13 VIT D,25 94160 36.7 ng/mL (Normal) Range: 32.0-100.0 Comments: Recent studies consider the lower limit of 32.0 ng/mL to bradlye threshold for optimal health.William VIVAR. J Nutr. 2004;135(2):317-22.Performed at: [address] [id number] Director: Milan Torres MD 8-Ruf-287078:43 ABDOMEN/PELVIS WITH CONTRAST Radiology Report See Note (Normal) Comments: Exam Number: [id number] CLINICAL:Abdominal pain. CT ABDOMEN AND PELVIS WITH [...] significant spondylolisthesis. Reported By: LUZ VALERA M.D. 79-Xgc-76518:14 CBCD,SMEAR DIFF BAND 2 % (Normal) Range: [...] 47-70 WBC 3.5 K/mm3 (Abnormal) Range: 4.4-11.0 51-Bnh-97810:14 COMP METABOLIC A/G 1.3 {RATIO} (Normal) Range: [...] {uIU/mL} (Normal) Range: 0.358-3.74 :14 VIT D,25 40396 38.9 ng/mL (Normal) Range: 32.0-100.0 Comments: Recent studies consider the lower limit of 32.0 ng/mL to bradley threshold for optimal health.William VIVAR. J Nutr. 2004;135(2):317-22.Performed At: [facility] [place], [place] [id number] :10 C-REACTIVE PROT 40.70 mg/L (Abnormal) Range: 0.0-3.0 Comments: C-Reactive Protein (CRP) provides useful information for thediagnosis, therapy and monitoring of inflammatory processesand associated diseases. For the evaluation of Relative Riskfor Cardiovascular Dise ase, a High Sensitivity CRP (HSCRP)should be ordered. :10 ESR SED RATE 50 (Abnormal) Range: 0-20 :03 Urinalysis, Office (71150) UA - BILIRUBIN Negative (Normal) UA - [...] $$$ <=4 S TRIMETHOPRIM/SULFAMETHOXAZO $ >=320 R 91-Ulp-69328:41 BILAT SCRN DIGITAL & CAD Radiology Report See Note (Normal) Comments: Exam Number: [id number] MAMMOGRAM, BILATERAL SCREENING DIGITAL AND CAD HISTORYRoutine [...] mammograms werealso examined with computer-aided detection software ([employer] Reported By: SLOANE TRIVEDI M.D. :55 [...] - 9.1 <0.2 Postmenopausal 23.0 - 116.3 63-Oot-728828:22 LUTEIN HOR 4283 15.8 m[iU]/mL (Normal) Range: [...] 15.9 - 54.0 Contraceptives 0.7 - 5.6 18-Bsk-716946:22 PROLACTIN 4465 10.3 ng/mL (Normal) Range: 2.8-29.2 [...] 208.5 Postmenopausal 1.8 - 20.3Per formed At: [facility] [place], [place] [id number] 37-Alh-305508:22 ROUTINE UA BILIRUBIN URINE SeeNote (Normal) Comments: [...] Report See Note (Normal) Comments: Exam Number: [id number] CLINICAL: Headaches, memory loss MRI BRAIN WITH [...] a demonstrated aneurysm or occlusion of the [place] of [place]. There is no extra-axial fluid [...] {uIU/mL} (Normal) Range: 0.34-4.82 :08 VIT D,25 97867 38.2 ng/mL (Normal) Range: 32.0-100.0 Comments: Recent studies consider the lower limit of 32.0 ng/mL to bradley threshold for optimal health.William VIVAR. J Nutr. 2004;135(2):317-22.Performed At: [facility] [place], [place] [id number] :08 VITAMIN B12 316 pg/mL (Normal) Range: 211-911 :52 BRAIN/HEAD WITHOUT CONTRAST Radiology Report See Note (Normal) Comments: Exam Number: [id number] CLINICAL:58 year old female with 39 year [...] further evaluation. Reported By: SLOANE VARGAS M.D. 92-Rak-111013:49 KIDNEY (HP) Radiology Report See Note (Normal) Comments: Exam Number: [id number] CLINICAL:Renal insufficiency RENAL ULTRASOUND COMPARISON:None. FINDINGS: The [...] 3.5-5.1 NA 141 mmol/L (Normal) Range: 136-145 36-Ovl-584399:25 CHEST, PA AND LATERAL (MT) Radiology Report See Note (Normal) Comments: Exam Number: [id number] CHEST PA AND LATERAL STATEMENTLeft sided rib [...] Comments: GLU,2HPPG 75gm GLUC PPG GLUP from [id number]. Comments: Glucose result less than 50 mg/dL [...] 6.7 g/dL (Normal) Range: 6.4-8.2 :42 EBVIgG/M 802640 EB-EA IgG 11708 143 AU/mL (Abnormal) Range: 0-99 Comments: Negative <100 Equivocal 100 - 120 Positive >120 EB-NAg FsT39157 1871 AU/mL (Abnormal) Range: 0-99 Comments: Negative <100 Equivocal 100 - 120 Positive >120 EB-VCA TnQ73428 3769 AU/mL (Abnormal) Range: 0-99 Comments: Negative <100 Equivocal 100 - 120 Positive >120 EB-VCA IhB23644 13 AU/mL (Normal) Range: 0-99 Comments: Negative [...] + Antibody Present - Antibody AbsentPerformed At: [facility] [place], [place] [id number] :42 ROUTINE UA BILIRUBIN URINE SeeNote (Normal) [...] Report See Note (Normal) Comments: Exam Number: [id number] MAMMOGRAM, BILATERAL SCREENING DIGITAL AND CAD HISTORYRoutine [...] werealso examined with computer-aided detection softw are ([employer] Reported By: SLOANE TRIVEDI M.D. 9-Smy-647336:34 BIBIANA-D 066439 BIBIANA-DIRECT 51 AU/mL (Normal) Range: 0-99 Comments: [...] {IU/mL} (Normal) Range: 0.0-13.9 Comments: Performed At: [address] [id number] :34 TSH 2.12 {uIU/mL} (Normal) Range: 0.34-4.82 [...] $$$ <=16 S TRIMETHOPRIM/SULFAMETHOXAZ $$ <=10 S 67-Xyt-920456:08 ROUTINE UA BILIRUBIN URINE SeeNote (Normal) Comments: [...] 0.2 EU/dl (Normal) Range: 0.2 - 1.0 66-Jmd-677585:45 CULTURE, URINE URINE CULTURE See Note {CFU/mL} [...] Indication: Migraine Planned Observations T4, FREE (THYROXINE) (05731)Indication: Thyroid nodule On: Request T3, FREE (TRIDOTHYRONINE) (36407)Indication: Thyroid nodule On: Request TSH (38919)Indication: Thyroid nodule On: Request CBC W/AUTO DIFF WBC (93506)Indication: Mixed hyperlipidemia On: Request METABOLIC PANEL, COMPREHENSIVE (91291)Indication: Mixed hyperlipidemia On: Request LIPOPROTEIN, BLD, BY NMR (35721)Indication: Mixed hyperlipidemia On: Request CALCIFEDIOL (36056)Indication: Vitamin D deficiency, unspecified On: Request C-REACT PROT HIGH SENS(hsCRP) (19000)Indication: Pain in unspecified joint On: Request Sedimentation Rate-ESR (00675)Indication: Pain in unspecified joint On: Request Metabolic Panel, Comprehensive (76386)Indication: Pain in unspecified joint On: Request CBC (Auto) (52574)Indication: Pain in unspecified joint On: Request FECAL OCCULT- Tubes sent home (66865)Indication: Encounter for screening for malignant neoplasm of colon (Renamed from Special screening for malignant neoplasms, colon) On: 4-Ckx-203412:14 Request CBC WITH MANUAL DIFF (37699)Indication: Abnormal WBC count On: 84-Zyq-667234:12 Request METABOLIC PANEL, COMPREHENSIVE (01818)Indication: Mixed hyperlipidemia On: :15 Request CBC W/AUTO DIFF WBC (18539)Indication: Mixed hyperlipidemia On: :15 Request LIPID PANEL (27179)Indication: Mixed hyperlipidemia On: :15 Request TSH (13889)Indication: Anxiety On: :15 Request CALCIFIDIOL (58896) VIT D 25Indication: Vitamin D deficiency, unspecified On: :15 Request CALCIFEDIOL (63415)Indication: Vitamin D deficiency, unspecified On: 20-Sep-20159:12 Request EBV Panel (74759)Indication: Fatigue On: 46-Uiv-033167:51 Request SPEP (79878)Indication: Abnormal CBC On: 58-Zmw-423842:43 Request UPEP (80932)Indication: Abnormal CBC On: 79-Hwf-918413:30 Request serum free light chains (83882)Indication: Abnormal CBC On: 24-Bwv-556356:29 Request urine immunofixation (83919)Indication: Abnormal CBC On: 65-Tte-498752:29 Request serum immunofixation (49873)Indication: Abnormal CBC On: 39-Viy-420778:29 Request LIPID PANEL (57918)Indication: Mixed hyperlipidemia On: 11-Kqd-322642:46 Request CALCIFIDIOL (11386) VIT D 25Indication: Vitamin D deficiency, unspecified On: 90-Ycw-094070:41 Request METABOLIC PANEL, COMPREHENSIVE (39455)Indication: Mixed hyperlipidemia On: :12 Request LIPID PANEL (99519)Indication: Mixed hyperlipidemia On: :12 Request CBC WITH MANUAL DIFF (41789)Indication: postmenopausal without estrogen On: :02 Request METABOLIC PANEL, COMPREHENSIVE (87865)Indication: postmenopausal without estrogen On: 31-Dif-120958:02 Request CALCIFIDIOL (58657) VIT D 25Indication: Vitamin D deficiency, unspecified On: :01 Request CALCIFEDIOL (47033)Indication: Vitamin D deficiency, unspecified On: :26 Request CBC WITH MANUAL DIFF (33366)Indication: Mixed hyperlipidemia On: :26 Request Metabolic Panel, Comprehensive (50875)Indication: Mixed hyperlipidemia On: :26 Request Lipid Panel (32119)Indication: Mixed hyperlipidemia On: :26 Request METABOLIC PANEL, COMPREHENSIVE (90841)Indication: Mixed hyperlipidemia On: :47 Request LIPID PANEL (88021)Indication: Mixed hyperlipidemia On: :47 Request CALCIFIDIOL (78726) VIT D 25Indication: Vitamin D deficiency, unspecified On: :47 Request EBV Panel (12263)Indication: Hepatitis On: :38 Request CMV IGM ANTBDY (89204)Indication: Hepatitis On: :38 Request CMV ANTIBODY (56695)Indication: Hepatitis On: :38 Request CALCIFEDIOL (17839)Indication: Mixed hyperlipidemia On: 76-Jiz-274551:56 Request CBC with manual diff (81489)Indication: Mixed hyperlipidemia On: :56 Request Metabolic Panel, Comprehensive (54824)Indication: Mixed hyperlipidemia On: :56 Request TSH (THYROID STIMULATING HORMONE) (03370)Indication: Mixed hyperlipidemia On: :56 Request LIPID PANEL (13562)Indication: Mixed hyperlipidemia On: :55 Request HEPATIC FUNCTION PANEL (49264)Indication: Mixed hyperlipidemia On: 17-Yaq-384280:55 Request HEPATIC FUNCTION PANEL (21313)Indication: Unspecified Diagnosis On: 25-Ewg-273698:25 Request Rapid Strep Test, Office (06801)Indication: Pharyngitis, acute On: 82-Pyy-417306:05 Request Metabolic Panel, Comprehensive (99972)Indication: Epigastric Pain (Renamed from Abdominal pain, epigastric) On: 77-Arf-612097:24 Request Comments: labs stat. Lipase (82767)Indication: Epigastric Pain (Renamed from Abdominal pain, epigastric) On: 25-Hoe-142821:24 Request Amylase (04475)Indication: Epigastric Pain (Renamed from Abdominal pain, epigastric) On: 32-Sgr-021236:24 Request CBC, Platelets & Auto Diff (80082)Indication: Epigastric Pain (Renamed from Abdominal pain, epigastric) On: 72-Ztg-580677:24 Request URINE MIHCI CULTURE-IDENTIFICATN (52872)Indication: Hematuria (Renamed from Blood in the urine) On: 73-Nfp-136291:23 Request ASM (ANTI SMOOTH MUSCLE ANTIBODY) (65481)Indication: Abnormal finding of blood chemistry, unspecified On: :26 Request CERULOPLASMIN (24791)Indication: Abnormal finding of blood chemistry, unspecified On: : Request FERRITIN (40134)Indication: Abnormal finding of blood chemistry, unspecified On: 20-Thl-948165:26 Request HEPATIC FUNCTION PANEL (36378)Indication: Mixed hyperlipidemia On: 43-Qgq-508224:47 Request HEPATIC FUNCTION PANEL (47655)Indication: Abnormal finding of blood chemistry, unspecified On: 90-Hmt-349170:17 Request Comments: 1 week HEPATIC FUNCTION PANEL (07883)Indication: Migraine On: 81-Fqa-857491:26 Request TSH (72215)Indication: Migraine On: 97-Izr-770030:26 Request HEPATITIS PANEL (97113)Indication: Abnormal finding of blood chemistry, unspecified On: 76-Clv-952892:25 Request EBV Panel (69886)Indication: Abnormal finding of blood chemistry, unspecified On: :24 Request Vitamin D Hydroxy (63801)Indication: Vitamin D deficiency, unspecified On: :42 Request CBC WITH MANUAL DIFF (25570)Indication: Irritable bowel syndrome On: :42 Request METABOLIC PANEL, COMPREHENSIVE (51855)Indication: Irritable bowel syndrome On: :42 Request LIPID PANEL (97154)Indication: Mixed hyperlipidemia On: :42 Request CALCIFEDIOL (28401)Indication: Vitamin D deficiency, unspecified On: :06 Request CBC with manual diff (32464)Indication: Mixed hyperlipidemia On: :06 Request Lipid Panel (70709)Indication: Mixed hyperlipidemia On: :06 Request Metabolic Panel, Comprehensive (29359)Indication: Mixed hyperlipidemia On: :06 Request Vitamin D Hydroxy (72584)Indication: Vitamin D deficiency, unspecified On: :17 Request CBC WITH MANUAL DIFF (01877)Indication: Lung nodule On: :17 Request METABOLIC PANEL, COMPREHENSIVE (02245)Indication: Irritable bowel syndrome On: :17 Request LIPID PANEL (63511)Indication: Mixed hyperlipidemia On: 92-Sqt-978354:07 Request C-REACTIVE PROTEIN ([id number])Indication: Chest pain On: :20 Request SED RATE ERYTHROCYTE ([id number])Indication: Chest pain On: :20 Request METABOLIC PANEL, COMPREHENSIVE ([id number])Indication: Chest pain On: :20 Request CBC WITH MANUAL DIFF ([id number])Indication: Chest pain On: :20 Request D-Dimer ([id number])Indication: Chest pain On: :20 Request Comments: stat METABOLIC PANEL, COMPREHENSIVE ([id number])Indication: Osteopenia On: 47-Llx-694423:00 Request TSH ([id number])Indication: Depressive disorder On: 85-Oyg-194153:58 Request LIPID PANEL ([id number])Indication: Mixed hyperlipidemia On: 76-Spt-722178:57 Request Vitamin D Hydroxy ([id number])Indication: Vitamin D deficiency, unspecified On: 92-Lxt-500472:57 Request Metabolic Panel, Comprehensive ([id number])Indication: Hypopotassemia On: 32-Haw-725435:58 Request CALCIFEDIOL (45294)Indication: Vitamin D deficiency, unspecified On: 73-Rap-316028:58 Request Lipid Panel ([id number])Indication: Mixed hyperlipidemia On: :57 Request METABOLIC PANEL, COMPREHENSIVE ([id number])Indication: Migraine On: 72-Tdu-391330:53 Request LIPID PANEL ([id number])Indication: Mixed hyperlipidemia On: 04-Iux-068103:53 Request Vitamin D Hydroxy ([id number])Indication: Vitamin D deficiency, unspecified On: 40-Eqp-936944:53 Request Vitamin D Hydroxy ([id number])Indication: Vitamin D deficiency, unspecified On: 30-Xwo-651330:49 Request METABOLIC PANEL, COMPREHENSIVE ([id number])Indication: Irritable bowel syndrome On: 53-Elu-236424:48 Request LIPID PANEL ([id number])Indication: Mixed hyperlipidemia On: 83-Yli-713528:48 Request METABOLIC PANEL, COMPREHENSIVE ([id number])Indication: Hypopotassemia On: 15-Cje-825469:56 Request LIPID PANEL ([id number])Indication: Mixed hyperlipidemia On: 21-Auf-039341:56 Request Vitamin D Hydroxy ([id number])Indication: Vitamin D deficiency, unspecified On: 36-Hcl-240531:56 Request HEPATIC FUNCTION PANEL ([id number])Indication: Mixed hyperlipidemia On: 68-Nqh-721646:07 Request LIPID PANEL ([id number])Indication: Mixed hyperlipidemia On: 80-Lyh-905020:07 Request URINE MICHI CULTURE-IDENTIFICATN ([id number])Indication: Dysuria On: 1-Sos-112893:40 Request URINALYSIS W/O MICRO ([id number])Indication: Other signs and symptoms in breast On: 12-Gdk-025513:31 Request METABOLIC PANEL, COMPREHENSIVE ([id number])Indication: Other signs and symptoms in breast On: 68-Ayd-163924:31 Request TSH ([id number])Indication: Other signs and symptoms in breast On: 43-Nqq-501910:31 Request Vitamin D Hydroxy ([id number]) On: 0-Zog-844120:30 Request CBC WITH MANUAL DIFF ([id number]) On: 9-Pud-206595:30 Request METABOLIC PANEL, COMPREHENSIVE ([id number]) On: 6-Nou-975909:30 Request VITAMIN B-12 (CYANOCOBALAMIN) ([id number]) On: 1-Rvd-901493:30 Request TSH ([id number]) On: 5-Kgh-153056:30 Request Metabolic Panel, Basic ([id number]) On: 49-Xfs-583287:21 Request HEPATIC FUNCTION PANEL ([id number])Indication: Mixed hyperlipidemia On: :21 Request LIPID PANEL ([id number])Indication: Mixed hyperlipidemia On: 26-Yco-693214:21 Request METABOLIC PANEL, COMPREHENSIVE (07802)Indication: Hypoglycemia On: 39-Lri-481546:51 Request LIPID PANEL ([id number])Indication: Low HDL (under 40) On: 81-Kci-793957:45 Request Glucose, PP/2 Hour ([id number])Indication: Fatigue On: : Request VITAMIN B-12 (CYANOCOBALAMIN) ([id number])Indication: Fatigue On: : Request URINALYSIS W/O MICRO ([id number])Indication: Fatigue On: : Request TSH ([id number])Indication: Fatigue On: : Request CBC WITH MANUAL DIFF ([id number])Indication: Fatigue On: : Request METABOLIC PANEL, COMPREHENSIVE ([id number])Indication: Fatigue On: : Request BIBIANA (ANTINUCLEAR ANTIBODY) ([id number])Indication: Pain in unspecified joint On: Request C-REACTIVE PROTEIN ([id number])Indication: Pain in unspecified joint On: Request CBC WITH MANUAL DIFF ([id number])Indication: Pain in unspecified joint On: Request METABOLIC PANEL, COMPREHENSIVE ([id number])Indication: Pain in unspecified joint On: Request RHEUMATOID FACTOR-QUANT ([id number])Indication: Pain in unspecified joint On: Request SED RATE ERYTHROCYTE ([id number])Indication: Pain in unspecified joint On: Request TSH ([id number])Indication: Pain in unspecified joint On: : Request METABOLIC PANEL, COMPREHENSIVE (11903)Indication: Low HDL (under 40) On: Request LIPID PANEL ([id number])Indication: Low HDL (under 40) On: : Request LIPID PANEL ([id number])Indication: Low HDL (under 40) On: :41 Request HEPATIC FUNCTION PANEL ([id number])Indication: Low HDL (under 40) On: 41 Request Comments: 4 mos LIPID PANEL ([id number])Indication: Low HDL (under 40) On: :26 Request Comments: 3 mos HEPATIC FUNCTION PANEL ([id number])Indication: Low HDL (under 40) On: :26 Request Comments: 3 mos Planned Procedures MRI BRAIN W/ CONTRAST ([id number])By: On: 04-Aug-2018 Intent Rylee Gracia DO, DO, Kathleen SCREENING DIGITAL TOMOSYNTHESIS OF On: 04-Aug-2018 Intent BREAST ([id number])By: Rylee Gracia DO, DO, Kathleen CXR PA & LAT ([id number])By: Nii ABREU, On: 07-Jul-2018 Intent Rylee Nelson DO Flu Vaccine (Quadrivalent) 68172Lu: On: 27-May-2018 Intent Rylee Gracia DO, DO, Comments: Lot #[id number]-L dltd, IMDose prefilled syringegiven by: Nohemy reviewed and ABN signed Rylee Wax CurettesBy: Rylee Gracia DO On: 12-Feb-2018 Intent Rylee Gracia DO Ear Irrigation ([id number])By: Nii On: 12-Feb-2018 Rylee Field DO, DO, Kathleen Comments: small amount of yellow was irrigated out of right ear, patient tolerated without difficulty ear wax currette used to remove remainder of wax X-RAY OF SHOULDER, TWO VIEWS On: 12-Feb-2018 Intent ([id number])By: Rylee Gracia DO, DO, Kathleen ELECTROCARDIOGRAM, COMPLETE (ECG) On: 12-Feb-2018 Intent ([id number])By: Rylee Gracia DO, DO, Kathleen Ultrasound - ThyroidBy: Nii ABREU, On: 30-Jan-2018 Intent Rylee Nelson DO Wax CurettesBy: Dasia Oliver On: 12-Sep-2017 Intent Ear Irrigation ([id number])By: Benito, On: 12-Sep-2017 Rashida Forman X-RAY OF HAND, THREE VIEWS On: 16-Aug-2017 Intent ([id number])By: Rylee Gracia DO, DO, Kathleen Radiology - Abdomen SeriesBy: On: 02-Jul-2017 Intent Rylee Gracia DO, DO, Comments: FLAT PLATE Rylee ACUTE ABDOMINAL SERIES ([id number])By: On: 27-Jun-2017 Intent Rylee Gracia DO, DO, Kathleen Flu Vaccine (Quadrivalent) 93817Vd: On: 28-May-2017 Intent Nii DO, Rylee Nii DO, Comments: lot: [id number]: 01/06/18ite/route: L freddy, IMamt: 0.5mlVIS and ABN signed when applicableChelsea, CRAB MEAT PROCESSOR Rylee SCREENING DIGITAL TOMOSYNTHESIS OF On: 28-May-2017 Intent BREAST ([id number])By: Nii DO, Rylee Nii DO, Rylee THYROID ULTRASOUND ([id number])By: On: 02-Jan-2017 Intent Nii DO, Rylee Nii DO, Rylee Doppler Ultrasound OtherBy: Nii On: 15-Aug-2016 Intent DO Rylee Nii DO, Rylee Comments: left lower extremity PNEUM VAC ADLT/IMUMNOSPR, SBC/INTRM On: 07-May-2016 Intent ([id number])By: NiiRylee calles DO Comments: Lot:[id number]:11/24/17Dose:0.5mgRoute:imSite:r arm Given By:DORIS signed Nii DO Rylee DEXA SCAN AXIAL SKELETON ([id number])By: On: 25-Apr-2016 Intent Nii DO Rylee Nii DO, Rylee MAMMOGRAM, SCREENING, BOTH BREAST On: 25-Apr-2016 Intent ([id number])By: NiiRylee calles DO Nii DO, Rylee Flu Vaccine (Quadrivalent) 15685Bq: On: 25-Apr-2016 Intent Hung Santos Comments: FLUlot: [id number]:01/05site:Lt deltoidroute:IMdose:.5mlDEMICK, MA DEXA SCAN AXIAL SKELETON ([id number])By: On: 01-Mar-2016 Intent Nii DO Rylee Nii DO, Rylee Radiology - ChestBy: Ilsa SELLERS, On: 13-Jun-2015 Intent Marlen Phillips Flu Vaccine (Quadrivalent) 29394Ym: On: 27-Apr-2015 Intent Manda Higginbotham MD Comments: Lot:[id number]:01/19/16Dose:0.5mLRoute:IMSite:L DltdGiven By:DORIS signed MAMMOGRAM, SCREENING, BOTH BREAST On: 15-Mar-2015 Intent ([id number])By: Manda Higginbotham MD ELECTROCARDIOGRAM, COMPLETE (ECG) On: 30-Dec-2014 Intent ([id number])By: Rylee Gracia DO Comments: nsr no acute chg Rylee Gracia DO Prevnar 13 ([id number])By: Anahy KRISHNAN, On: 03-Aug-2014 Intent Manda Torres SPECIMEN HANDLING/TRANSPORT On: 14-Jun-2014 Intent ([id number])By: Ilsa SELLERS, Isabel IMMUNIZ ADMNIN, 1 VAC, SNGL/COMBO On: 03-May-2014 Intent ([id number])By: Joey, Nurse FLU VAC, SPLIT, >3 YEARS, INTRAMUSC On: 03-May-2014 Intent ([id number])By: Manda Higginbotham MD Comments: Lot:[id number]:01/18/15Dose:0.5mLRoute:IMSite:L DltdGiven By:DORIS signed MAMMOGRAM, SCREENING, BOTH BREAST On: 09-Feb-2014 Intent ([id number])By: Manda Higginbotham MD Comments: due 07-04 DEXA SCAN AXIAL SKELETON ([id number])By: On: 09-Feb-2014 Intent Manda Higginbotham MD Comments: due 07-04 Eprescribed prescriptions On: 19-Nov-2013 Intent ([id number])By: Rylee Gracia DO, DO, Kathleen Eprescribed prescriptions On: 02-Sep-2013 Intent (G8553)By: Marlen Rosenbaum CNP FLU VAC, SPLIT, >3 YEARS, INTRAMUSC On: 26-May-2013 Intent ([id number])By: Manda Higginbotham MD Comments: Lot:[id number]:Dose:0.5mLRoute:IMSite:L DltdGiven By:DORIS signed IMMUNIZ ADMNIN, 1 VAC, SNGL/COMBO On: 26-May-2013 Intent ([id number])By: Francesca Crystal MAMMOGRAM, SCREENING, BOTH BREASTS On: 14-May-2013 Intent ([id number])By: Manda Higginbotham MD Eprescribed prescriptions On: 30-Dec-2012 Intent ([id number])By: Alaina Patricia LPN L Ultrasound - LiverBy: Fast DO, On: 10-Dec-[address] - ChestBy: Fast DO, Iwona A On: 09-Dec-2012 Intent Comments: december Eprescribed prescriptions On: 09-Dec-2012 Intent ([id number])By: Zabrina Farmer Eprescribed prescriptions On: 01-Aug-2012 Intent (G8553)By: Zabrina Farmer EKG ([id number])By: Zabrina Farmer On: 10-Jun-2012 Intent Comments: ekg showed normal sinus rhythym, normal axis, no acute st/t wave changes Eprescribed prescriptions On: 10-Jun-2012 Intent ([id number])By: Fast DO, Iwona A DXA, BONE DENSITY, AXIAL SKELETON On: 10-Jun-2012 Intent ([id number])By: Fast DO, Iwona A CT - ChestBy: Fast DO, Iwona A On: 10-Jun-2012 Intent Eprescribed prescriptions On: 10-Jun-2012 Intent ([id number])By: Zabrina Farmer Breast Screening - BilateralBy: On: 02-Jun-2012 Intent Fast DO, Iwona A TDAP VACCINE >7 IM ([id number])By: On: 04-Dec-2011 Intent Zabrina Farmer Comments: lot [id number] 06/02, L arm IM, perfileld Alaina CT - ChestBy: Fast DO, Iwona A On: 04-Dec-2011 Intent FLU VAC, SPLIT, >3 YEARS, INTRAMUSC On: 29-May-2011 Intent ([id number])By: Zabrina Farmer Comments: Lot: [id number]: 01/19/12Site: Lt DeltoidDose: Prefilled DoseARiding, PROCESSING SPECIALIST CT - ChestBy: Fast DO, Iwona A On: 29-May-2011 Intent IMMUNIZ ADMNIN, 1 VAC, SNGL/COMBO On: 29-May-2011 Intent ([id number])By: Zabrina Farmer Pulse Oximetry ([id number])By: Miguel DO, On: 16-Feb-2011 Intent Iwona A Comments: 99 CT - ChestBy: Fast DO, Iwona A On: 16-Feb-2011 Intent Comments: stat-pe protocol- call wet read Radiology - ChestBy: Ilsa SELLERS, On: 06-Feb-2011 Intent Marlen Phillips Gxuchylmd-Jke-Udill ([id number])By: On: 06-Feb-2011 Intent Valeriesalvatoreban SELLERSMarlen Eprescribed prescriptions On: 03-Jan-2011 Intent (G8553)By: Iwona Rivera DO EKG (43653)By: Manda Higginbotham MD On: 15-Dec-2010 Intent Eprescribed prescriptions On: 17-Nov-2010 Intent (G8553)By: Iwona Rivera DO MAMMOGRAM, SCREENING, BOTH BREASTS On: 06-Mar-2010 Intent ([id number])By: Iwona Rivera DO DXA, BONE DENSITY, AXIAL SKELETON On: 06-Mar-2010 Intent ([id number])By: Iwona Rivera DO CT - Abdomen & PelvisBy: Miguel ABREU, On: 22-Aug-2009 Intent Iwona A PNEUM VAC ADLT/IMUMNOSPR, SBC/INTRM On: 22-Apr-2009 Intent ([id number])By: Samantha Kumar RN IMMUNIZ ADMNIN, 1 VAC, SNGL/COMBO On: 22-Apr-2009 Intent ([id number])By: Samantha Kumar RN Comments: Lot #: [id number] date: mount given: 0.5 mlRoute: IMSite given: right deltoidGiven by: Ban Salas LPN IMMUNIZ ADMNIN, 1 VAC, SNGL/COMBO On: 22-Apr-2009 Intent ([id number])By: Samantha Kumar RN FLU VAC, SPLIT, >3 YEARS, INTRAMUSC On: 22-Apr-2009 Intent ([id number])By: Samantha Kumar RN Comments: Lot #: [id number] date: mount given: 0.5 mlRoute: IMSite given: left deltoidGiven by: Ban Salas LPN Pulse Oximetry ([id number])By: Wai On: 15-Apr-[address] - Brain/HeadBy: Iwona Rivera DO On: 19-Nov-2008 Intent Radiology - ChestBy: Ilsa SELLERS, On: 14-Oct-2008 Intent Marlen Phillips Pulse Oximetry ([id number])By: Ilsa On: 14-Oct-2008 Intent Marlen SELLERS Comments: done BC Aerosol Treatment ([id number])By: Ilsa On: 14-Oct-2008 Intent Marlen SELLERS Comments: done BC Spirometry (06725)By: Darian, On: 12-Oct-2008 Intent Zabrina Comments: good effort and curve normal MAMMOGRAM, SCREENING, BOTH BREASTS On: 06-Oct-2008 Intent ([id number])By: Iwona Rivera DO Aerosol Treatment ([id number])By: Ilsa On: 08-Sep-2008 Intent Marlen SELLERS Pulse Oximetry (28744)By: Ilsa On: 08-Sep-2008 Intent Marlen SELLERS EKG ([id number])By: Rylee Gracia DO On: 02-Jul-2008 Intent Rylee Gracia DO Comments: nsr nothing acute-- v1-v1 lead placement(female) FLU VAC, SPLIT, >3 YEARS, INTRAMUSC On: 11-Jun-2008 Intent ([id number])By: Zabrina Farmer Comments: inj given left deltoid no complicationslot:[id number]:12/28 IMMUNIZ ADMNIN, 1 VAC, SNGL/COMBO On: 11-Jun-2008 Intent ([id number])By: Zabrina Farmer EKG ([id number])By: Iwona Rivera DO On: 22-Dec-2007 Intent Comments: ekg showed normal sinus rhythym, normal axis, no acute st/t wave changes MAMMOGRAM, SCREENING, BOTH BREASTS On: 25-Aug-2007 Intent ([id number])By: Iwona Rivera DO IMMUNIZ ADMNIN, 1 VAC, SNGL/COMBO On: 23-May-2007 Intent ([id number])By: Iwona Rivera DO FLU VAC, SPLIT, >3 YEARS, INTRAMUSC On: 23-May-2007 Intent ([id number])By: Iwona Rivera DO Comments: given 0.5cc im in left deltoid lot#[id number] exp.11/27- Instructions Name Dates Details Encounter for [...] The patient does have durable power of staff attorney and living will. The patient has [...] The patient does have durable power of staff attorney and living will. The patient has noticed staying at home rather than doing something new or going out and lack of energy (thinks it is from the lupus). Other providers contributing to the patient's care are media law faculty member (dr. chavez), urologist (dr. bhatti) and ot her: (preventive maintenance engineer dr. beaulieu). 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 The medical issues the patient is following up for include other (rib pain on R side). Note for Follow up acute care visit: went to [place]- drove 500 miles - no leg pain [...] in last year and was normal and [facility] will appt with [place] for pap - [...] - still getting 3 migranes a week- it generalist feels it is whether change and allergies- [...]
--- OUTSIDE RECORDS SUMMARY | 2018-10-11 18:42 | XMS RPT_ITS | Continuity of Care Document ---
:1950 Author Organization [facility] Address [address] [facility] [address] [facility] [address] [place] [address] Phone Care Team Providers Name Role Phone Rylee Gracia DO Unavailable Fadumo Mcdaniel MD, I Unavailable Dr. Joaquim Hough Unavailable Deuce Soto Unavailable Herb KRISHNAN, Jj Phillips Unavailable Merari Lam Unavailable [facility], [facility] Unavailable [facility], Physical Therapy Unavailable Spencer Clifton Unavailable [...] 714.9) Comments: see Dr. deutsch. 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 from Lupus. get eye exam and [...] 25 MCG/ACT (0.025%) Nasal Solution 1 (one) Hartleton Hartleton each nostril qd for 0 days Quantity: 1 {Hartleton} Refills: 2 Ordered:12-Feb-2018 Dasia Arana LPN Start [...] Nasonex 50 MCG/ACT Nasal Suspension 1 (one) Hartleton qd each nostril for 0 days Quantity: [...] discontinued per [facility]. CALCIUM 500 + D, [id number]-GN (PO Tab) 2 tabs qd for 0 [...] order discontinued per [facility]. VITAMIN D (ERGOCALCIFEROL), [id number] (Oral Capsule) 1 (one) Capsule Capsule once [...] More Views Result: Comments: See Note; NOTES: [facility] Imaging Services [address] [place] [address] Knee 4 or More Views MR#: [id number] Acct: [id number] Name: SUSANNE TORRES Rep #: [id number] : 1950 F 68 From: Hector Cervantes MD PCP: Rylee Gracia DO Status: REG CLI Study: Knee 4 or More Views Date of Exam: 07/23/18 Exam# [id number] Ordering Dr: Lauren Topete STUDY: X-R AY [...] CC: Rylee Gracia DO; Lauren SERNA Prebish Bar Tender: Signed 07-Jul-2018 Chest PA and Lateral Result: Comments: See Note; NOTES: [facility] Imaging Services [address] [place] [address] Chest PA and Lateral MR#: [id number] Acct: [id number] Name: SUSANNE TORRES Rep #: [id number] : 1950 F 68 From: Hector Oliveira MD PCP: Rylee Gracia DO Status: REG CLI Study: Chest PA and Lateral Date of Exam: 07/07/18 Exam# [id number] Ordering Dr: Rylee Gracia DO STUDY: X-RA [...] Service support , CC: Rylee Gracia DO Bar Tender: Signed 07-Jul-2018 Chest PA and Lateral Result: Comments: See Note; NOTES: [facility] Imaging Services [address] [place] [address] Chest PA and Lateral MR#: [id number] Acct: [id number] Name: SUSANNE TORRES Rep #: [id number] : 1950 F 68 From: Hector Oliveira MD PCP: Rylee Gracia DO Status: REG CLI Study: Chest PA and Lateral Date of Exam: 07/07/18 Exam# [id number] Ordering Dr: Rylee Gracia DO STUDY: X-RA [...] Service support , CC: Rylee Gracia DO Bar Tender: Signed 20-Mar-2018 PT D/C Summary (1) Result: Comments: See Note; NOTES: [facility] [address] [place] [address] [address] [place] [address] Fax REHABILITATION SERVICES ISHMAEL TAN SUMMARY MR#: [id number] Acct: [id number] Name: SUSANNE TORRES Rep #: [id number] : 1950 68 From: Mitch Leonard DPT, [...] 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 Still avoid pulling weeds and heavy lifting [...] please feel free to call me at [phone]. Thank you for the referral of this patient. Sincerel y, Mitch Leonard, DPT, OC <Electronically signed by Mitch RODRIGUEST, OCS, CSCS> 03/20/18 0932 CC: Rylee Gracia DO EBG Signed 04-Mar-2018 Re-Evaluation - PT (1) Result: Comments: See Note; NOTES: [facility] [address] [facility]. [address] [place], [place] [address] Fax [facility] MR#: [id number] Acct: [id number] Name: SUSANNE TORRES Rep #: [id number] : 1950 68 From: Mitch Leonard DPT, [...] the blue while I was sitting at taoist my shldr just starting hurting worse. Reports the pain to be located in the front and under the shldr joint. Objective/Function: Review of postural maintainence so as to not exacerbate symptoms while sitting at [employer]. Pt states, I guess I wasn't really [...] do not hesitate to contact me at [phone] by phone or if you have questions or concerns regarding this new plan of care! Sincerely, Mitch Leonard, LILIAT, OC <Electronically signed by Mitch RODRIGUEST, OCS, CSCS> 0 03/04/18 0939 CC: Rylee Gracia DO EBG Signed For Medicare only, by signing this I certify the plan of care. Physicians Signature Date 19-Feb-2018 Inital Evaluation (1) - PT Result: Comments: See Note; NOTES: [facility] [address] [place] [address] Fax REHABILITATION SERVICES INITIAL EVALUATION MR#: [id number] Acct: [id number] Name: SUSANNE TORRES Rep #: [id number] : 1950 68 From: Mitch Leonard DPT, [...] to be FAXED BACK to us at [phone] for Medicare purposes. Please let me know if there are questions or concerns regarding this plan of care. Physician Signature: Date: <Electronically signed by Mitch Leonard DPT, OCS, CSCS> 02/19/18 0722 CC: Rylee Gracia DO EBG Signed For Me geoffrey only, by signing this I certify the plan of care. Physicians Signature Date 13-Feb-2018 Shoulder min 2 Views Result: Comments: See Note; NOTES: [facility] Imaging Services [address] [place] [address] Shoulder min 2 Views MR#: [id number] Acct: [id number] Name: SUSANNE TORRES Rep #: [id number] : 1950 F 68 From: Hector Oliveira MD PCP: Rylee Gracia DO Status: REG CLI Study: Shoulder min 2 Views Date of Exam: 02/13/18 Exam# [id number] Ordering Dr: Rylee Gracia DO STUDY: X-R [...] Service support , CC: Rylee Gracia DO Bar Tender: Signed 04-Feb-2018 Thyroid Result: Comments: See Note; NOTES: [facility] Imaging Services [address] [place] [address] Thyroid MR#: [id number] Acct: [id number] Name: SUSANNE TORRES Rep #: [id number] : 0 1950 F 68 From: Bayron Payan MD PCP: Rylee Gracia DO Status: REG CLI Study: Thyroid Date of Exam: 02/04/18 Exam# [id number] Ordering Dr: Rylee Gracia DO STUDY: THYROID [...] Bayron Payan MD at 10:35 EDT Tel [phone], Service support , CC: Rylee Gracia DO Bar Tender: Signed 16-Oct-2017 PT D/C Summary (1) Result: Comments: See Note; NOTES: [facility] [address] [place] [address] Fax REHABILITATION SERVICES DISCHAR GE SUMMARY MR#: [id number] Acct: [id number] Name: SUSANNE TORRES Rep #: [id number] : 1950 67 From: Martín Arteaga DPT [...] please feel free to call me at [phone]. Thank you for the referral of this patient. Sincer Martín damian <Electronically signed by Martín Arteaga DPT> 10/16/17 0958 CC: Rylee Gracia DO CLS Signed 12-Oct-2017 Urgent Care Visit Report Result: Comments: See Note; NOTES: [facility] [address] [place] [address] OFFICE VISIT Date of Service: 10/12/17 MR#: [id number] Acct: [id number] Name: SUSANNE TORRES Rep #: [id number] : 1950 Provider: Lillian Myers Age/Sex: 67/F Location: [facility] Status: Signed Intake Vital Signs10/12/17 Height 5 [...] any improvement advised that she see her heritage consultant. Medications New: Coding Level of Care Code [...] General: cooperative, no acute distress, well developed HENHI Head: normal to inspection, atraumatic Ears: hearing [...] any improvement advised that she see her heritage consultant. Medications New: Coding Level of Care Code Off vis,est,level 4 Diagnoses Cellulitis of other specified site L03.818 Site of cell ulitis: other site 10/12/17 1020 <Electronically signed by Lillian FLORES> Date Lillian FLORES Cosigner Signatur e: Date (if applicable) CC: 24-Sep-2017 PT Communication Result: Comments: See Note; NOTES: [facility] [address] [facility] [place] [address] Fax REHABILITATION SERVICES PROGRSALVATORE Kaur NOTE MR#: [id number] Acct: [id number] Name: SUSANNE TORRES Rep #: [id number] [...] - PT Result: Comments: See Note; NOTES: [facility] [address] [place] [address]. [address] [place] [address] Fax REHABILITATION SERVICES INITIAL EVALUATION MR#: [id number] Acct: [id number] Name: SUSANNE TORRES Rep #: [id number] : 1950 67 From: Martín Arteaga DPT [...] Response: No effect Lumbar Standing: Right Side Virgin - Symptoms During Testing: No e ffect Lumbar Standing: Right Side Virgin - Symptoms After Testing: No effect Lumbar Standing: Left Side Virgin - Mechanical Response: No effect Lumbar Standing: Left Side Virgin - Symptoms During Testing: No effect Lumbar Standing: Left Side Virgin - Symptoms After Testing: No effect - [...] to be FAXED BACK to us at [phone] for Medicare purposes. Please let me know if there are questions or concerns regarding this plan of care. Physician Signature: Date: <Electronically signed by Martín Arteaga DPT> 09/18/171909 CC: Rylee Gracia DO CLS Signed For Medicare only, by signing this I certify the plan of care. Physicians Signature Date 16-Aug-2017 Hand Min 3 Views Result: Comments: See Note; NOTES: [facility] Imaging Services [address] [place] [address] Hand Min 3 Views MR#: [id number] Acct: [id number] Name: SUSANNE TORRES Rep #: [id number] : 1950 F 67 From: Bayron Payan MD PCP: Rylee Gracia DO Status: REG CLI Study: Hand Min 3 Views Date of Exam: 08/16/17 Exam# [id number] Ordering Dr: Rylee Gracia DO STUDY: X-RA [...] Bayron Payan MD at 13:43 EST Tel [phone], Service support , CC: Rylee Gracia DO Bar Tender: Signed 25-Jul-2017 SCREENING MAMM (CAD), BILAT Result: Comments: See Note; NOTES: [facility] Imaging Services [address] [place] [address] SCREENING MAMM (CAD), BILAT MR#: [id number] Acct: [id number] Name: SUSANNE TORRES Rep #: [id number] : 1950 F 67 From: Bayron Payan MD PCP: Rylee Gracia DO Status: REG CLI Study: SCREENING MAMM (CAD), BILAT Date of Exam: 07/25/17 Exam# [id number] Ordering Dr: Sherrell Gracia DO MAMMOGRAPHY - [...] delay biopsy of a clinically suspicious abnormality. [id number] Electronically Signed: Bayron Payan MD at 14:18 EST Tel [phone], Service support , CC: Rylee Gracia DO Bar Tender: Signed 03-Jul-2017 Urgent Care Visit Report Result: Comments: See Note; NOTES: [facility] [address] [place] [address] OFFICE VISIT Date of Service: 07/03/17 MR#: [id number] Acct: [id number] Name: SUSANNE TORRES Rep #: [id number] : 1950 Provider: Matt FLORES Age/Sex: 67/F Location: [facility] Status: Signed Intake Vital Signs07/03/17 Height 5 [...] (Cipro) administer within 120 minutes prior to [id number] mg PO BID 7 days ical incision Additional Comments UA dip = mod blood, mo d leukocytes. Cipro as prescribed today (per pt preference). Appropriate hygiene reinforced. 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 Patient states acknowledging understanding of the above. Coding Level of Care Code Off vis,new,level 3 Diagnoses Urinary tract infection N39.0 07/03/17 1524 <Elect ronically signed by Matt FLORES> Date Matt FLORES Cosigner Signature: Date (if applicable) CC: 03-Jul-2017 Acute Abdomen Inc Chest Result: Comments: See Note; NOTES: [facility] Imaging Services [address] [place] [address] Acute Abdomen Inc Chest MR#: [id number] Acct: [id number] Name: SUSANNE TORRES Rep #: [id number] : 1950 F 67 From: Ross Javier DO PCP: Rylee Gracia DO Status: REG CLI Study: Acute Abdomen Inc Chest Date of Exam: 07/03/17 Exam# [id number] Ordering Dr: Rylee Gracia Y: X-RAY - [...] Ross Javier DO at 11:58 EST Tel [phone], Serv ice support , CC: Rylee Gracia DO Bar Tender: Signed 02-Jul-2017 Abd Inc Decub and/or Erect Result: Comments: See Note; NOTES: [facility] Imaging Services [address] [place] [address] Abd Inc Decub and/or Erect MR#: [id number] Acct: [id number] Name: SUSANNE TORRES Rep #: [id number] : 1950 F 67 From: Ross Javier DO PCP: Rylee Gracia DO Status: REG CLI Study: Abd Inc Decub and/or Erect Date of Exam: 07/02/17 Exam# [id number] Ordering Dr: Rylee Gracia DO STUDY: X-RAY [...] Ross Javier DO at 11:35 EST Tel [phone], Service support , Fax CC: Rylee Gracia DO Bar Tender: Signed 03-Jan-2017 Thyroid Result: Comments: See Note; NOTES: [facility] Imaging Services [address] [place] [address] Felipedana 4d Thyroid MR#: [id number] Acct: [id number] Name: SUSANNE TORRES Rep #: [id number] : 1950 F 66 From: Roselia Huerta MD PCP: Rylee Gracia DO Status: REG CLI Study: Thyroid Date of Exam: 01/03/17 Exam# [id number] Ordering Dr: Rylee Gracia DO STUDY: THYROID [...] Service support , CC: Rylee Gracia DO Bar Tender: Signed 15-Aug-2016 Venous Duplex Lower Extremity Result: Comments: See Note; NOTES: [facility] Cardiovascular Services [address] [place] [address] Venous Duplex US, Unilateral 08/15/16 1054 MR#: [id number] Acct: [id number] Name: SUSANNE COLMENARES Rep #: [id number] : 1950 66 From: Bradford Crowe MD [...] appears patent and compressible segmentally. Ordering Physician: yRlee Gracia Referring Physician: Peri Deutsch Performed By: Humera Martinez RVT 12 :27 PM 08/15/16 1228 Date Bradford Crowe MD CC: Rylee Gracia DO Date Dictated: 08/15/16 1054 Date Transcribed: 08/15/16 1228 Bar Tender: Signed 24-Jul-2016 SCREENING MAMM (CAD), BILAT Result: Comments: See Note; NOTES: [facility] Imaging Services [address] [place] [address] Verdana 4d SCREENING MAMM (CAD), BILAT MR#: [id number] Acct: [id number] Name: MARYANA TORRES Rep #: [id number] : 1950 F 66 From: Ross Javier DO PCP: Rylee Gracia DO Status: REG CLI Study: SCREENING MAMM (CAD), BILAT Date of Exam: 07/24/16 Exam# [id number] Ordering Dr: Rylee Gracia DO MAMMOGRAPHY - [...] delay biopsy of a clinically suspicious abnormality. [id number] Electronically Signed: Ross Javier DO at 16:06 EST Tel [phone], Service support [phone], CC: Rylee Gracia DO Bar Tender: Signed 17-Jul-2016 DXA BONE DENS W/VERT FX ASMT Result: Comments: See Note; NOTES: [facility] Imaging Services [address] [place] [address] Verdana 4d DXA BONE DENS W/VERT FX ASMT MR#: [id number] Acct: [id number] Name: LUBAVincent TOMMY Love Rep #: [id number] : 1950 F 66 From: Bayron Payan MD PCP: Rylee Gracia DO Status: REG CLI Study: DXA BONE DENS W/VERT FX ASMT Date of Exam: 07/17/16 Exam# [id number] Ordering Dr : Rylee Gracia DO STUDY: [...] Bayron Payan MD at 14:09 EST Tel [phone], Service support [phone], CC: Ryleeradha Gracia Bar Tender: Signed 01-Mar-2016 ELECTROCARDIOGRAM, COMPLETE (ECG) (77204) Comments: sinus beverly no acute chg Result: [MEASUREMENTS ANALYSIS] Date of Test: 03/01/2016 13:45:12; Heart Rate: 59; MD Interval: 154; QRS: 92; QT Interval: 426; Corrected QT Interval (QTc): 425; P Wave Zeeland: 33; QRS Wave Zeeland: 33; T Wave [place]: 90; Blood Pressure: 120/78 [ECG DIAGNOSTIC STATEMENTS] Date of Test: 03/01/2016 13:45:12; Summary: Sinus Bradycardia - Nonspecific T-abnormality. ABNORMAL 01-Nov-2015 Lumbar Spine 2 or 3 Views Result: Comments: See Note; NOTES: [facility] Imaging Services [address] [place] [address] Verdana 4d Lumbar Spine 2 or 3 Views MR#: [id number] Acct: [id number] Name: ISAIAH COLMENARESANNJacqueline Love Rep #: [id number] : 1950 F 65 From: Bayron Payan MD PCP: Manda Higginbotham MD Status: REG CLI Study: Lumbar Spine 2 or 3 Views Date of Exam: 11/01/15 Exam# [id number] Tanya gilmore Dr: Ryan Ortiz MD STUDY: [...] Bayron Payan MD at 10:21 EDT Tel [phone], Service support [phone], RAD/Lumbar Spine 2 or 3 Views IMPRESSION: Degenerative changes of the spine, as detai led above. Electronically Signed: Bayron Payan MD at 10:21 EDT Tel [phone], Service support [phone], CC: Ryan Ortiz MD; Manda Higginbotham MD Bar Tender: Signed 13-Oct-2015 Spine Cervical (Routine) Result: Comments: See Note; NOTES: [facility] Imaging Services [address] [place] [address] Verdana 4d Spine Cervical (Routine) MR#: [id number] Acct: [id number] Name: SUSANNE KATE Rep #: [id number] : 1950 F 65 From: Tavo Perez MD PCP: Manda Higginbotham MD Status: REG CLI Study: Spine Cervical (Routine) Date of Exam: 10/13/15 Exam# [id number] Ordering Dr: Ryan Ortiz MD STUDY: MRI [...] at 19:04 EDT Tel , Service support [phone], CC: Ryan Ortiz MD; Manda Higginbotham MD Bar Tender: Signed 19-Jul-2015 Bilat Scrn Digital AND CAD Result: Comments: See Note; NOTES: [facility] Imaging Services [address] [place] [address] Verdana 4d Bilat Scrn Digital AND CAD MR#: [id number] Acct: [id number] Name: SUSANNE TORRES Rep #: [id number] : 1950 F 65 From: Hector Oliveira MD PCP: Manda Higginbotham MD Status: REG CLI Study: Bilat Scrn Digital AND CAD Date of Exam: 07/19/15 Exam# [id number] Ordering Dr: Manda Higginbotham MD MAMMOGRAPHY - [...] delay biopsy of a clinically suspicious abnormality. [id number] Electronically Signed: Luis Eduardo Oliveira MD at 15:55 EST Te l , Service support [phone], CC: Manda Higginbotham MD Bar Tender: Signed 12-Jul-2015 PT D/C of Non Returning Pt. Result: Comments: See Note; NOTES: [facility] [place] [address] Fax REHABILITATION SE RVICES DISCHARGE SUMMARY MR#: [id number] Acct: [id number] Name: SUSANNE TORRES Rep #: [id number] : 1950 65 From: Tatiana Wagenr Referring : Chirag Lee DPM Status: PRE [...] appropriate by the physician. Thank you! Tatiana Wganer <Electronically signed by Tatiana Wagner > 07/12/15 1559 CC: Manda Higginbotham MD; Chirag Lee DPM Signed 13-Jun-2015 Chest PA and Lateral Result: Comments: See Note; NOTES: [facility] Imaging Services [address] [place] [address] Vervail 4d Chest PA and Lateral MR#: [id number] Acct: [id number] Name: SUSANNE PADILLA Rep #: [id number] : 1950 F 65 From: Bayron Payan MD PCP: Manda Higginbotham MD Status: REG CLI Study: Chest PA and Lateral Date of Exam: 06/13/15 Exam# [id number] Ordering Dr: Marlen Rosenbaum STUDY: X-RAY CHEST REASON FOR EXAM: Female, 65 years old. Abnormal blood test. TECHNIQUE: PA and lateral views of the chest. COMPARISON: None. FINDINGS: The lungs are clear and expanded. Scattered calcified granulomas. There is no demonstrated pleural abnormality. Normal size heart. Normal mediastinum and robe. Normal visualized pulmon looc arteries. Normal visualized aortic arch and descending thoracic aorta. There are diffuse degenerative changes of the visualized thoracic spine. Dextroscoliosis. Normal visualized ribs, clavicles , and shoulders. There is no demonstrated abnormality of the visualized soft tissue structures of the upper abdomen. IMPRESSION: No acute abnormality is seen. Electronically Signed: Bayron Payan MD at 14:40 EST Tel [phone], Service support [phone], 0079 RAD/Chest PA and Lateral IMPRESSION: No acute abnormality is seen. Electronically Signed: Bayron Payan MD at 14:40 EST Tel [phone], Service support [phone], CC: Marlen Rosenbaum; Manda Higginbotham MD Bar Tender: Signed 14-May-2015 Operative Report Result: Comments: See Note; NOTES: [facility] Medical Records Department [address] [place] [address] Operative Report MR#: [id number] Acct: [id number] Name: MARYANA TORRES Rep #: [id number] : 1950 65 From: Deion Gomez MD PCP: Manda Higginbotham MD Status: [facility] DATE OF SERVICE: 05/13/2015 DATE [...] to recovery room in stable condition. Deion Gomze MD T: NTS JOB: [id number] 05/14/15 1121 <Electronically si gned by Deion Gomez MD> Date Deion Gomez MD Cosigner Signature (If Indicated): Date CC: Manda Higginbotham MD; Deion Gomez MD Date Dictated: 05/13/151357 Date Transcribed: 05/13/151357 Bar Tender: Signed 13-May-2015 Discharge Instruction Result: Comments: See Note; NOTES: [facility] Medical Records Department [address] [place] [address] Instructions for Home/Discharge Instructions 05/13/15 1400 MR#: [id number] Acct: [id number] Name: SUSANNE TORRES Rep #: [id number] : 1950 65 From: Deion Gomez MD PCP: Manda Higginbotham MD Status: REG VAC Discharge Diet: No Restrictions Discharge Activ ity: [...] APPT IN FEW WKS, TO PAGE 05/13/15 6946 <Electronically signed by Deion Gomez MD> Date Deion Gomez MD CC: Manda Higginbotham MD 12-May-2015 Abdomen Single View Result: Comments: See Note; NOTES: [facility] Imaging Services [address] [place] [address] Verdana 4d Abdomen Single View MR#: [id number] Acct: [id number] Name: SUSANNE RAMIREZ Rep #: [id number] : 1950 F 65 From: Jack Calderon MD PCP: Manda Higginbotham MD Status: REG CLI Study: Abdomen Single View Date of Exam: 05/12/15 Exam# [id number] Ordering Dr: Deion Hernandez MD STUDY: X-RAY [...] Jack Calderon MD at 23:58 EDT Tel [phone], Service support [phone], RAD/Abdomen Single View IM PRESSION: 5 mm left renal stone. Electronically Signed: Jack Calderon MD at 23:58 EDT Tel [phone], Service support [phone], CC: Manda Higginbotham MD; Deion Gomez MD Bar Tender: Signed 02-May-2015 Abdomen Single View Result: Comments: See Note; NOTES: [facility] Imaging Services [address] [place] [address] Radiology Report MR#: [id number] Acct: [id number] Name: SUSANNE TORRES Re p #: [id number] : 1950 F 65 From: Hector Cervantes MD PCP: Manda Higginbotham MD Status: REG CLI Study: Abdomen Single View Date of Exam: 05/02/15 Exam# [id number] Ordering Dr: Deion Gomez MD STUDY: X-RAY [...] MD at 16:59 EDT , Service support [phone], RAD/Abdomen Sing le View IMPRESSION: 1. 5 [...] MD at 16:59 EDT , Service support [phone], CC: Manda Higginbotham MD; Deion Gomez MD Bar Tender: Signed 29-Mar-2015 Extremity Lower without Contra Result: Comments: See Note; NOTES: [facility] Imaging Services [address] [place] [address] CAT Scan Report MR#: [id number] Acct: [id number] Name: SUSANNE TORRES Rep #: [id number] : 1950 F 65 From: Roselia Huerta MD PCP: Manda Higginbotham MD Status: REG CLI Study: Extremity Lower without Contra Date of Exam: 03/29/15 Exam# [id number] Ordering Dr: Chirag Lee DPM STUDY: CT [...] at 13:47 EDT Tel , Service support [phone], CC: Manda guevara MD; Chirag Lee DPM Bar Tender: Signed 22-Mar-2015 Inital Evaluation - PT Result: Comments: See Note; NOTES: [facility] [address] [facility] [place] [address] Fax REHABILITATION SERVICES INITIAL EVALUATION MR#: [id number] Acct: [id number] Name: SUSANNE TORRES Rep #: [id number] : 1950 65 From: Tatiana Wagner Referring [...] to be FAXED BACK to us at [phone] for Medicare purposes. Please let me know if there are questions or concerns regarding this plan of care. Physician Signature: Date: <Electronically signed by Tatiana Wagner > 03/22/15 1556 CC: Manda Higginbotham MD; Chirag Lee DPM Signed For Medicare only, by signing this I certify the plan of care. Physicians Signature Date 31-Dec-2014 Operative Report Result: Comments: See Note; NOTES: [facility] Medical Records Department [address] [place] [address] Operative Report MR#: [id number] Acct: [id number] Name: SUSANNE TORRES Rep #: [id number] : 1950 64 From: Chirag Lee DPM PCP: Manda Higginbotham MD Status: [facility] DATE OF SERVICE: 12/31/2014 DATE [...] mm screw was placed across the f [facility] metatarsal fracture site intramedullary. Of noted [...] needed. Chirag Lee DPM T: TITI JOB: [id number] 12/31/14 1603 &# 60;Electronically signed by Chirag Lee DPM> Date Chirag Lee DPM CC: Manda Higginbotham MD; Sunday Lee MD Date Dictated: 12/31/14914 Date Transcribed: 12/31/14914 Bar Tender: Signed 31-Dec-2014 Foot 2 Views Result: Comments: See Note; NOTES: [facility] Imaging Services [address] [place] [address] Radiology Report MR#: [id number] Acct: [id number] Name: SUSANNE TORRES Rep #: [id number] : 1950 F 64 From: Bayron Payan MD PCP: Manda Higginbotham MD Status: [facility] Study: Foot 2 Views Date of Exam: 12/31/14 Exam# [id number] Ordering Dr: Chirag Lee DPM STUD Y: [...] Bayron Payan MD at 13:09 EDT Tel [phone], Service support , RAD/Foot 2 Views IMPRESSION: Satisfactory ORIF of the transverse fracture of the base of the fifth metatarsal. Electronically Signed: Bayron sosa MD at 13:09 EDT Tel [phone], Service support [phone], CC: Manda Higginbotham MD; Sunday Lee MD Bar Tender: Signed 31-Dec-2014 Discharge Instruction Result: Comments: See Note; NOTES: [facility] Medical Records Department [address] [place] [address] Instructions for Home/Discharge Instructions 12/31/1432 MR#: [id number] ct: [id number] Name: SUSANNE TORRES Rep #: [id number] : 1950 64 From: Chirag Lee DPM PCP: Manda Higginbotham MD Status: REG [facility] Discharge Diet: Light diet - advance as [...] 2 Views Result: Comments: See Note; NOTES: [facility] Imaging Services [address] [place] [address] Radiology Report MR#: [id number] Acct: [id number] Name: SUSANNE TORRES Rep #: [id number] : 1950 F 64 From: Bayron Payan MD PCP: Manda Higginbotham MD Status: [facility] Study: Foot 2 Views Date of Exam: 12/31/14 Exam# [id number] Ordering Dr: Chirag Lee DPM STUD Y: [...] Morgan Payan MD at 13:02 EDT Tel [phone], Service support [phone], RAD/Foot 2 Views IMPRESSION: Satisfactory reduction of the transvers e fracture at the base of the fifth metatarsal with screw fixation. Electronically Signed: Bayron Payan MD at 13:02 EDT Tel [phone], Service support [phone], Fax CC: Manda Higginbotham MD; Sunday Lee MD Bar Tender: Signed 24-Sep-2014 Abdomen Single View Result: Comments: See Note; NOTES: [facility] Imaging Services [address] [place] [address] Radiology Report MR#: [id number] Acct: [id number] Name: SUSANNE TORRES Rep #: [id number] : 1950 F 64 From: Agustin Washington MD PCP: Manda Higginbotham MD Status: REG CLI Study: Abdomen Single View Date of Exam: 09/24/14 Exam# [id number] Ordering Dr: Deion Gomez MD UDY: X-RAY [...] at 17:02 EST Tel , Service support [phone], Fax RAD/Abdomen Single View IMPRESSION: 5 mm left upper pole stone. Other renal stones are not seen but not excluded. Electronically Signed: Agustin Washington MD at 17:02 EST Tel , Service support [phone], CC: Manda Higginbotham MD; Deion Gomez MD Bar Tender: Signed 04-Aug-2014 Abdomen/Pelvis without Cont Result: Comments: See Note; NOTES: [facility] Imaging Services [address] [facility] [place] [address] CAT Scan Report MR#: [id number] Acct: [id number] Name: SUSANNE TORRES Rep #: [id number] : 1950 F 64 From: Bayron Payan MD PCP: Manda Higginbotham MD Status: REG CLI Study: Abdomen/Pelvis without Cont Date of Exam: 08/04/14 Exam# [id number] Ordering Dr: Deion Gomez MD STUDY: CT [...] Bayron Payan MD at 11:33 EST Tel [phone], Service support [phone], CC: Manda Higginbotham MD; Deion Gomez MD Bar Tender: Signed 13-Jul-2014 Vert Fx Asess/Lat Bone Den(H) Result: Comments: See Note; NOTES: [facility] Imaging Services [address] [facility] [place] [address] Bone Density Report MR#: [id number] Acct: [id number] Name: SUSANNE TORRES Rep # : [id number] : 1950 F 64 From: Bayron Payan MD PCP: Manda Higginbotham MD Status: REG CLI Study: Vert Fx Asess/Lat Bone Den(H) Date of Exam: 07/13/14 Exam# [id number] Ordering Dr: Iona Higginbotham MD ADDENDUM by Bayron Payan MD on 08/03/14 at 0947 ADDENDUM This is an addendum r eport. A vertebral assessment study was obtained as well. There is moderate degree of loss of height of the T7 vertebrae. Minimal loss of white of the superior plate of the T11 vertebrae. Electron ically Signed: Bayron Payan MD at 9:47 EST Tel [phone], Service support [phone], 08/03/14 0947 Date cc: Manda Higginbotham MD [...] Michael Payan MD at 13:17 EST Tel [phone], Service support [phone], CC: Manda Higginbotham MD Bar Tender: Signed 13-Jul-2014 Vert Fx Asess/Lat Bone Den(H) Result: Comments: See Note; NOTES: [facility] Imaging Services [address] [place] [address] Bone Density Report MR#: [id number] Acct: [id number] Name: SUSANNE TORRES Rep # : [id number] : 1950 F 64 From: Bayron Payan MD PCP: Manda Higginbotham MD Status: REG CLI Study: Vert Fx Asess/Lat Bone Den(H) Date of Exam: 07/13/14 Exam# [id number] Ordering Dr: Iona Higginbotham MD STUDY: DUAL [...] Bayron Payan MD at 13:17 EST Tel [phone], Service support [phone], CC: Manda Higginbotham MD Bar Tender: Signed 13-Jul-2014 Bilat Scrn Digital AND CAD Result: Comments: See Note; NOTES: [facility] Imaging Services [address] [place] [address] Breast Imaging Report MR#: [id number] Acct: [id number] Name: SUSANNE TORRES Rep #: [id number] : 1950 F 64 From: Hector Oliveira MD PCP: Manda Higginbotham MD Status: REG CLI Study: Pauline Tsang Digital AND CAD Date of Exam: 07/13/14 Exam# [id number] Ordering Dr: Manda Higginbotham MD MAMMOGRAPHY - [...] Eduardo Oliveira MD at 15:14 EST Tel [phone], Service support , CC: Manda Higginbotham MD Bar Tender: Signed 13-Jul-2014 Dexa Bone Density Study (HP) Result: Comments: See Note; NOTES: [facility] Imaging Services [address] [place] [address] Bone Density Report MR#: [id number] Acct: [id number] Name: SUSANNE TORRES Rep # : [id number] : 1950 F 64 From: Bayron Payan MD PCP: Manda Higginbotham MD Status: REG CLI Study: Dexa Bone Density Study (HP) Date of Exam: 07/13/14 Exam# [id number] Ordering Dr: Ap Higginbotham MD STUDY: DUAL [...] Bayron Payan MD at 13:24 EST Tel [phone], Service support [phone], CC: Manda Higginbotham MD Bar Tender: Signed 02-Apr-2014 Pelvis 1 or 2 Views Result: Comments: See Note; NOTES: [facility] Imaging Services [address] [place] [address] Radiology Report MR#: [id number] Acct: [id number] Name: SUSANNE TORRES Rep #: [id number] : 1950 F 64 From: Ross Javier DO PCP: Manda Higginbotham MD Status: REG CLI Study: Pelvis 1 or 2 Views Date of Exam: 04/02/14 Exam# [id number] Ordering Dr: Peri Deutsch MD STUDY: X-RAY [...] Ross Javier DO at 20:24 EDT Tel [phone], Service support [phone], Fax CC: Manda Higginbotham MD; Peri Deutsch MD Bar Tender: Signed 09-Jul-2013 Bilat Scrn Digital & CAD Result: Comments: See Note; NOTES: [facility] Imaging Services [address] [place] [address] Breast Imaging Report MR#: [id number] Acct: [id number] Name: SUSANNE TORRES Rep #: [id number] : 1950 F 63 From: Bayron Payan MD PCP: Status: REG CLI Exam# [id number] Ordering Dr: Manda Higginbotham MD MAMMOGRAPHY - [...] Signed: Bayron Payan M.D. at 10:52 EST [facility] [phone], Service support [phone], CC: Manda Higginbotham MD Bar Tender: Signed Immunization Name Dates Details Influenza (3 years and up) on: 23-May-2007 Comments: given 0.5cc im in left deltoid lot#[id number] exp.11/27- Influenza (3 years and up) on: 11-Jun-2008 Comments: inj given left deltoid no complicationslot:ssaca245tvvtr:12/28 Influenza (3 years and up) on: 22-Apr-2009 Comments: Lot #: [id number] date: mount given: 0.5 mlRoute: IMSite given: left deltoidGiven by: A Maritza, [employer] Pneumococcal (2 years and up) on: 22-Apr-2009 [...] kg/m2 Body Surface Area Calculated 1.73 m2 26-Hun-837257:36 Temperature 98.4 f Comments: Method: Temporal Pulse [...] kg/m2 Body Surface Area Calculated 1.73 m2 22-Mpr-464435:03 Pulse 81 /min Comments: Pattern: Regular Respiration [...] Calculated 1.87 m2 Head Circumference 0.00 cm 73-Yua-420360:07 Temperature 97.8 f Comments: Method: Oral Pulse [...] W/Diff, Automated Comments: DR. GRACIA WANTS [facility] CMP VITD TSH T3F CBCD T4FDR. JOVON WNATS THE VITD PROCRE CBCD PTH [facility] [address] [place], [address] Absolute Lymph 1.49 {X10_3/ul} (Normal) Range: 0.83-4.51 [...] 4.2-5.4 WBC 4.4 K/mm3 (Normal) Range: 4.4-11.0 74-Ijh-83898:13 Comprehensive Metabolic Profil Comments: DR. GRACIA WANTS THE NMP CMP VITD TSH T3F CBCD T4FDR. JOVON WORLEYATS THE VITD PROCRE CBCD PTH PHOS [facility] [address] [place], [address] GAP 9 (Normal) Range: 5-15 CO2 28.0 [...] Comments: Please note revised GLUCOSE reference range vvjycsrvc59/02/2018. 06-Yuy-69069:13 Free T3 Comments: DR. GRACIA WANTS THE [facility] VITD TSH T3F CBCD T4FDR. JOVON SANDOVAL THE VITD PROCRE CBCD PTH PHOS [facility] [address] [place], [address] FREE T3 2.4 pg/mL (Normal) Range: 2.18-3.98 73-Arj-38584:13 NMR Lipoprofile Comments: DR. GRACIA WANTS THE [facility] VITD TSH T3F CBCD T4FDR. JOVON SANDOVAL [...] US Food and Drug Administration.Performed at: - [facility] [id number] Director: Juwan Hendrix MD, Phone: [phone] INS RES/DIAB RK . (Normal) LDL SIZE [...] :13 Phosphorus Comments: DR. GRACIA WANTS THE [facility] VITD TSH T3F CBCD T4FDR. JOVON [facility] THE VITD PROCRE CBCD PTH [facility] [address] [place], [place], [address] PHOS 3.2 mg/dL (Normal) Range: 2.5-4.9 :13 Protein+Creatinine Ratio,Urine Comments: DR. GRACIA WANTS THE [facility] VITD TSH T3F CBCD T4FDR. JOVON WORLEYSUNY [facility] THE VITD PROCRE CBCD PTH [facility] [address] [place], [address] PROT:CRE RATIO 79 {mg/g_CRE} (Normal) Range: 0-200 PROTEIN,UR.RAN. 12.1 mg/dL (Abnormal) UR CREAT 154.00 mg/dL (Normal) :13 PTHIN 60.9 pg/mL (Normal) Comments: DR. GRACIA WANTS THE [facility] VITD TSH T3F CBCD T4FDR. [facility] THE VITD PROCRE CBCD PTH [facility] [address] [place], [place], [address] Range: 18.4-80.1 :13 T4 Free Direct Comments: DR. GRACIA WANTS THE [facility] VITD TSH T3F CBCD T4FDR. [facility] THE VITD PROCRE CBCD PTH [facility] [address] [place], [place], [address] T4 FREE DIRECT 1.05 ng/dL (Normal) Range: 0.76-1.46 :13 Thyroid Stim Hormone (TSH) Comments: DR. GRACIA WANTS THE [facility] VITD TSH T3F CBCD T4FDR. [facility] THE VITD PROCRE CBCD PTH [facility] [address] [place], [place], [address] TSH 3.04 {uIU/mL} (Normal) Range: 0.358-3.74 :13 Vitamin D,25 Hydroxy Comments: DR. GRACIA WANTS THE [facility] VITD TSH T3F CBCD T4FDR. [facility] THE VITD PROCRE CBCD PTH [facility] [address] [place], [place], [address] Vitamin D 25-OH 33.5 ng/mL (Normal) Range: 29.95-100.01 Comments: Vitamin D 25(OH) Status Range Deficiency <20 ng/mL (50nmol/L) Insuffciency 20 - 30 ng/mL (50 - 75 nmol/L) Sufficiency 30 - 100 ng/mL (75 - 250 nmol/L) Toxicity >100 ng/mL (>250 nmol/L) 16-Gts-454532:12 CALCIFIDIOL (09532) VIT D 25 Comments: PATIENT NOT FASTINGPERFORMED BY: JOHN [facility] [address] Road[address]ublin [place] [id number] Vitamin D, 25-Hydroxy 41.7 ng/mL (Normal) Range: 30.0-100.0 Comments: Vitamin D deficiency has been defined by the Elizabeth ofC[facility] and an Endocrine Society practice guideline as alevel of serum 25-OH vitamin D less than 20 ng/mL (1,2).The Endocrine Society went on to further define vitamin Dinsufficiency as a level between 21 and 29 ng/mL (2).1. IOM (Elizabeth of Medicine). 2010. Dietary reference intakes for calcium and D. [place]: The National Academies Press.2. Micky MF, Jessenia SYKES, Katrin CAMARGO, et al. Evaluation, treatment, and prevention of vitamin D deficiency: an Endocrine Society clinical practice guideline. JCEM. 2010; 96(7):1911-30. 68-Yok-486506:12 VITAMIN B-12 (CYANOCOBALAMIN) Comments: PATIENT NOT FASTINGPERFORMED BY: CB [facility] [address] [facility] [place] [id number] ([address]) Vitamin B12 459 pg/mL (Normal) Range: 232-1245 75-Idm-817162:12 TSH (49370) Comments: PATIENT NOT FASTINGPERFORMED BY: CB [facility] [address]wi[address] [facility] [place] [id number] TSH 2.120 {uIU/mL} (Normal) Range: 0.450-4.500 32-Ixu-694422:12 SED RATE ERYTHROCYTE (25627) Comments: PATIENT NOT FASTINGPERFORMED BY: CB [facility] Evfcvt[address] [facility] [place] [id number] Sedimentation Rate-Westergren 2 mm/h (Normal) Range: 0-40 33-Hax-618574:12 RHEUMATOID FACTOR-QUANT (44354) Comments: PATIENT NOT FASTINGPERFORMED BY: CB [facility] [address]uf[address] [facility] [place] [id number] RA Latex Turbid. <10.0 {IU/mL} (Normal) Range: 0.0-13.9 43-Oiv-078406:12 METABOLIC PANEL, COMPREHENSIVE Comments: PATIENT NOT FASTINGPERFORMED BY: [facility] [address] [facility] [id number] (31487) ALT (SGPT) 19 [iU]/L (Normal) Range: 0-32 [...] 8-27 Glucose 92 mg/dL (Normal) Range: 65-99 69-Vpf-771009:12 C-REACTIVE PROTEIN (40015) Comments: PATIENT NOT FASTINGPERFORMED BY: [facility] Vrjcer47[address] [facility] [id number] C-Reactive Protein, Quant 1.2 mg/L (Normal) Range: 0.0-4.9 24-Dca-717451:12 CBC (AUTO) (05268) Comments: PATIENT NOT FASTINGPERFORMED BY: [facility] [facility] [id number] Platelets 212 {x10E3/uL} (Normal) Range: 150-379 RDW 13.9 % (Normal) Range: 12.3-15.4 MCHC 33.7 g/dL (Normal) Range: 31.5-35.7 MCH 30.8 pg (Normal) Range: 26.6-33.0 MCV 91 fL (Normal) Range: 79-97 Hematocrit 40.3 % (Normal) Range: 34.0-46.6 Hemoglobin 13.6 g/dL (Normal) Range: 11.1-15.9 RBC 4.42 {x10E6/uL} (Normal) Range: 3.77-5.28 WBC 4.8 {x10E3/uL} (Normal) Range: 3.4-10.8 77-Jxq-564599:12 BIBIANA (ANTINUCLEAR ANTIBODY) Comments: PATIENT NOT FASTINGPERFORMED BY: [facility] [facility] [id number] (03905) BIBIANA Direct Negative (Normal) 16-Izi-872401:08 Miscellaneous Lab Procedure Comments: Comments: [id number] TRANGLUTAMINASE SER FZTest(s) Ordered: [id number] TRANGLUTAMINASE SER [facility] [address] [place], [address] [facility] Comments: TEST RESULT LIMITSTransglutaminase Ab IgG/M/ATragl IgG <1.2 U/mL 0.0 - 6.0 Reference Range Negative < 6.0 U/mL Weak Positive LAB (Normal) 6.0 - 9.0 U/mL Positive > 9.0 U/mLTragl IgM 2.0 U/mL 0.0 - 12.4 Reference Range Negative < 9.6 U/mL Equivocal 9.6 - 12.4 TEST U/mL Positive > 12.4 U/mLThe performance characteristics of the TransglutaminaseIgM assay was validated by [facility]. [facility] FDA has not approved or cleared this test. Th e resultsof this assay can be used for clinical diagnosis withoutFDA approval. [facility]. is a CLIAcertified, CAP accredited laboratory for performing highcomplexity assays such as this o ne.Tragl IgA < 1.2 U/mL 0.0 - 4.0 Reference Range Negative < 4.0 U/mL Weak Positive 4.0 - 10.0 U/mL Positive > 10.0 U/mLComment_ TESTING PERFORMED AT [facility]. ORIGINAL REPORT ON FILE IN LAB CONTAINS ADDITIONAL TEST SITE INFORMATION. 66-Kli-724870:30 CBC-Complete Blood Cnt No Diff Comments: [facility] [address] [place], [place], [address] MPV 9.8 fL (Normal) Range: 6.2-12.0 PLT [...] 4.2-5.4 WBC 6.0 K/mm3 (Normal) Range: 4.4-11.0 61-Gkr-549351:30 Endomysial Antibody IgA Comments: [facility] (refer to report for specific site)refer to report for address and phone number ENDOMYSIAL IGA Negative (Normal) 39-Fsl-091550:30 Thyroglobulin Antibody Comments: [facility] (refer to report for specific site)refer to report for address and phone number TG AB 1.1 {IU/mL} (Abnormal) Range: 0.0-0.9 Comments: Thyroglobulin Antibody measured by Jaz CoulterMethodologyPerformed at: - [facility] [address] [id number] Director: Joaquim Barrett PhD, Phone: [phone] :23 CBC-Complete Blood Cnt No Diff Comments: [facility] [address] [place], [address] MPV 9.5 fL (Normal) Range: 6.2-12.0 [...] K/mm3 (Abnormal) Range: 4.4-11.0 :23 Magnesium Comments: [facility] [address] [place], [id number] MG 2.3 mg/dL (Normal) Range: 1.6-2.6 :23 Microalb:Creat Ratio,Random UR Comments: [facility] [address] [place], [address] MALB:CREAT 5.6 {mg/g_CRE} (Normal) MICROALBUMIN,UR 5.3 mg/L (Normal) UR CREAT 95.70 mg/dL (Normal) :23 PTHIN 78.4 pg/mL (Normal) Comments: [facility] [address] [place], [address] Range: 18.4-80.1 00-Dib-44563:23 Renal Profile Comments: [facility] [address] [place], [address] CO2 28.0 mmol/L (Normal) Range: 21.0-32.0 CL [...] Comments: Please note revised GLUCOSE reference range gvtxegdju71/02/2018. :23 Vitamin D,25 Hydroxy Comments: [facility] [address] [place], [address] Vitamin D 25-OH 34.7 ng/mL (Normal) Range: 29.95-100.01 Comments: Vitamin D 25(OH) Status Range Deficiency <20 ng/mL (50nmol/L) Insuffciency 20 - 30 ng/mL (50 - 75 nmol/L) Sufficiency 30 - 100 ng/mL (75 - 250 nmol/L) Toxicity >100 ng/mL (>250 nmol/L) 38-Agl-672107:19 CBC W/Diff, Automated Comments: [facility] [address] [place], [address] Absolute Lymph 1.25 {X10_3/ul} (Normal) Range: 0.83-4.51 [...] 4.2-5.4 WBC 3.9 K/mm3 (Abnormal) Range: 4.4-11.0 07-Kod-179156:19 Endomysial Antibody IgA Comments: [facility] (refer to report for specific site)refer to report for address and phone number ENDOMYSIAL IGA Negative (Normal) Comments: Performed at: - [facility] [id number] Director: Joaquim Barrett PhD, Phone: [phone] 93-Ugv-362571:19 t-Transglutaminase IgA Comments: [facility] (refer to report for specific site)refer to report for address and phone number tTG IGA <2 U/mL (Normal) Range: 0-3 Comments: Negative 0 - 3 Weak Positive 4 - 10 Positive >10 Tissue Transglutaminase (tTG) has been identified as the endomysial anti gen. Studies have demonstr- ated that endomysial IgA antibodies have over 99% specificity for gluten sensitive enteropathy. 20-Kaa-066411:00 Culture, Urine Comments: [facility] [address] [place], [address] CUUR See Note (Normal) Comments: Urine CultureCulture exhibits no growth. :27 CBC-Complete Blood Cnt No Diff Comments: [facility] [address] [place], [place], [address] MPV 10.4 fL (Normal) Range: 6.2-12.0 PLT [...] K/mm3 (Abnormal) Range: 4.4-11.0 :27 Magnesium Comments: [facility] [address] [place], [place], [address] MG 2.1 mg/dL (Normal) Range: 1.8-2.4 :27 Microalb:Creat Ratio,Random UR Comments: [facility] [address] [place], [place], [address] MALB:CREAT 4.6 {mg/g_CRE} (Normal) MICROALBUMIN,UR 8.6 mg/L (Normal) UR CREAT 188.00 mg/dL (Normal) :27 Renal Profile Comments: [facility] [address] [place], [address] CO2 27.0 mmol/L (Normal) Range: 21.0-32.0 CL [...] 7-18 GLU 94 mg/dL (Normal) Range: 70-110 64-Gja-51567:27 Vitamin D,25 Hydroxy Comments: [facility] [address] [place], [address] Vitamin D 25-OH 57.5 ng/mL (Normal) Comments: Vitamin D 25(OH) Status Range Deficiency <20 ng/mL (50nmol/L) Insuffciency 20 - 30 ng/mL (50 - 75 nmol/L) Sufficiency 30 - 100 ng/mL (75 - 250 nmol/L) Toxicity >100 ng/mL (>250 nmol/L) 0-Hym-752372:15 TSH (11743) Comments: PATIENT NOT FASTINGPERFORMED BY: [facility] Ooxttm13[address] [facility] [place] [id number] TSH 2.900 {uIU/mL} (Normal) Range: 0.450-4.500 6-Zmd-958764:15 SED RATE ERYTHROCYTE (71747) Comments: PATIENT NOT FASTINGPERFORMED BY: [facility] [facility] [id number] Sedimentation Rate-Westergren 2 mm/h (Normal) Range: 0-40 7-Upa-197607:15 C-REACTIVE PROTEIN (31730) Comments: PATIENT NOT FASTINGPERFORMED BY: [facility] [facility] [id number] C-Reactive Protein, Quant 1.4 mg/L (Normal) Range: 0.0-4.9 1-Xct-722169:15 METABOLIC PANEL, COMPREHENSIVE Comments: PATIENT NOT FASTINGPERFORMED BY: [facility] [facility] [id number] (44277) ALT (SGPT) 10 [iU]/L (Normal) Range: 0-32 [...] Glucose, Serum 106 mg/dL (Abnormal) Range: 65-99 0-Aze-964545:15 CBC W/AUTO DIFF WBC (58133) Comments: PATIENT NOT FASTINGPERFORMED BY: [facility] [address] [facility] [id number] Immature Grans (Abs) 0.0 {x10E3/uL} (Normal) Range: [...] Range: 3.4-10.8 :23 CBC W/Diff, Automated Comments: [facility] [address] [place], [address] Absolute Lymph 1.81 {X10_3/ul} (Normal) [...] 4.2-5.4 WBC 4.8 K/mm3 (Normal) Range: 4.4-11.0 61-Itp-93286:23 Comprehensive Metabolic Profil Comments: [facility] [address] [place], [place], [address] GAP 5 (Normal) Range: 5-15 CO2 31.0 [...] 7-18 GLU 90 mg/dL (Normal) Range: 70-110 29-Tai-82592:23 CRP, High Sensitivity Cardiac Comments: [facility] [address] [place], [place], [address] CRP HIGH SENS 2.99 mg/L (Normal) Comments: Low Relative Risk of CVD <1.0 mg/L Average Relative Risk of CVD 1.0 - 3.0 mg/L High Relative Risk of CVD >3.0 mg/L :23 Erythrocyte Sed Rate Comments: [facility] [address] [place], [place], [address] SED RATE 2 mm/h (Normal) Range: 0-30 :55 ASPIRATION (SLIDES ONLY) See Note (Normal) Comments: [facility] [address] [place], [place], [address] Comments: Patient: SUSANNE TORRES : 1950 (66/F) Acct Num: [id number] Phys: Trinh KRISHNAN,Keanu Unit Num: [id number] Loc: [facility] Specimen: [id number] Received: 01/23/171604 Spec Type: ASPIRATION TISSUES TISSUES: COMMENT Immediate cytologic evaluation to determine adequacy is not applicable. Correlation with clinical, radiologic findings and appropriate fol low up are necessary. CYTOLOGY GROSS Received are 12 smears labeled with the patient's name and designated per the requisition as left thyroid FNA. Submitted for staining. 01/24/17 TC:5 CPT: 28656 CYTOLOGY STUDY Slides are reviewed. The specimen [...] <signature on file> :39 T3, FREE (TRIDOTHYRONINE) (99781) Comments: PATIENT NOT FASTINGPERFORMED BY: [address] [id number] Triiodothyronine,Free,Serum 2.6 pg/mL (Normal) Range: 2.0-4.4 :39 T4, FREE (THYROXINE) (23707) Comments: PATIENT NOT FASTINGPERFORMED BY: [address] [id number] T4,Free(Direct) 1.49 ng/dL (Normal) Range: 0.82-1.77 78-Dlq-664297:39 TSH (08221) Comments: PATIENT NOT FASTINGPERFORMED BY: [address] [id number] TSH 1.970 {uIU/mL} (Normal) Range: 0.450-4.500 1-Knd-390923:31 ANTINUCLEAR ANTIBODIES DIRECT Comments: [facility] (refer to report for specific site)refer to report for address and phone number BIBIANA-DIRECT Positive (Abnormal) Comments: Performed at: [address] [id number] Director: Joaquim Barrett PhD, Phone: [phone] 5-Ojk-728196:31 CBC W/Diff, Automated Comments: [facility] [address] [place], [address] Absolute Lymph 1.15 {X10_3/ul} (Normal) [...] K/mm3 (Normal) Range: 4.4-11.0 :31 Magnesium Comments: [facility] [address], [address] MG 2.1 mg/dL (Normal) Range: 1.8-2.4 [id number]:31 Protein+Creatinine Ratio,Urine Comments: [facility] [id number] [place], [id number] PROT:CRE RATIO 88 {mg/g_CRE} (Normal) Range: 0-200 PROTEIN,UR.RAN. 7.2 mg/dL (Normal) UR CREAT 81.80 mg/dL (Normal) 3-Mpo-[id number]:31 Renal Profile Comments: [facility] [id number] [place], [id number] CO2 25.0 mmol/L (Normal) Range: 21.0-32.0 CL [...] <126 mg/dLsuggests IMPAIRED HOMEOSTASIS per A.D.A. criteria. [id number]:31 Vitamin D,25 Hydroxy Comments: [facility] [id number] [place], [id number] Vitamin D 25-OH 48.2 ng/mL (Normal) Comments: Vitamin D 25(OH) Status Range Deficiency <20 ng/mL (50nmol/L) Insuffciency 20 - 30 ng/mL (50 - 75 nmol/L) Sufficiency 30 - 100 ng/mL (75 - 250 nmol/L) Toxicity >100 ng/mL (>250 nmol/L) 31-Ylo-96185:45 Culture, Urine Comments: [facility] [id number] [place], [address] CUUR See Note (Normal) Comments: Urine CultureBelow infection level. ORGANISM 1: Mixed Gram Positive OrganismsColony Count <1000 [id number]:03 CALCIFIDIOL ([id number]) VIT D 25 Comments: PATIENT NOT FASTINGPERFORMED BY: [facility] Ossihx3180 [facility] [id number] Vitamin D, 25-Hydroxy 52.3 ng/mL (Normal) Range: 30.0-100.0 Comments: Vitamin D deficiency has been defined by the Elizabeth ofMedicine and an Endocrine Society practice guideline as alevel of serum 25-OH vitamin D less than 20 ng/mL (1,2).The Endocrine Society went on to further define vitamin Dinsufficiency as a level between 21 and 29 ng/mL (2).1. IOM (Elizabeth of Medicine). 2010. Dietary reference intakes for calcium and D. [place]: The National Academies Press.2. Micky MF, Jessenia NC, Katrin CAMARGO, et al. Evaluation, treatment, and prevention of vitamin D deficiency: an Endocrine Society clinical practice guideline. JCEM. 2010; 96(7):1911-30. 25-Ryp-879582:03 Folate (32179) Comments: PATIENT NOT FASTINGPERFORMED BY: CB [facility] Yscfif2452 [facility] [id number] Folate (Folic Acid), Serum >20.0 ng/mL (Normal) Comments: A serum folate concentration of less than 3.1 ng/mL isconsidered to represent clinical deficiency. 65-Ddh-695485:03 VITAMIN B-12 (CYANOCOBALAMIN) Comments: PATIENT NOT FASTINGPERFORMED BY: [facility] Jjtpgb8985 [facility] [place] [id number] (02817) Vitamin B12 469 pg/mL (Normal) Range: 211-946 77-Mvx-011551:03 TSH (93779) Comments: PATIENT NOT FASTINGPERFORMED BY: [facility] Vguduv0008 [facility] [id number] TSH 2.240 {uIU/mL} (Normal) Range: 0.450-4.500 88-Lee-717920:03 SED RATE ERYTHROCYTE (38870) Comments: PATIENT NOT FASTINGPERFORMED BY: [facility] SussexOjgrhx1744 [facility] [id number] Sedimentation Rate-Westergren 2 mm/h (Normal) Range: 0-40 86-Hzf-926671:03 RHEUMATOID FACTOR-QUANT (32264) Comments: PATIENT NOT FASTINGPERFORMED BY: CB [facility] Jekdwz7920 [facility] [id number] RA Latex Turbid. 12.1 {IU/mL} (Normal) Range: 0.0-13.9 20-Uvb-043489:03 METABOLIC PANEL, COMPREHENSIVE Comments: PATIENT NOT FASTINGPERFORMED BY: [facility]6370 [facility] [id number] (62149) ALT (SGPT) 15 [iU]/L (Normal) Range: 0-32 [...] mg/dL (Normal) Range: 65-99 :03 C-REACTIVE PROTEIN (92211) Comments: PATIENT NOT FASTINGPERFORMED BY: [facility]6[address] [facility] [id number] C-Reactive Protein, Quant 0.4 mg/L (Normal) Range: 0.0-4.9 :03 CBC (AUTO) (39234) Comments: PATIENT NOT FASTINGPERFORMED BY: [facility] Ycuhug7622 [facility] [id number] Platelets 220 {x10E3/uL} (Normal) Range: 150-379 RDW [...] ANTIBODY) Comments: PATIENT NOT FASTINGPERFORMED BY: [facility] Cejuef6811 [facility] [id number] (09120) BIBIANA Direct Positive (Abnormal) :06 ANTINUCLEAR ANTIBODIES DIRECT Comments: CMP,CBCD FOR DR PHELPS,CBCD FOR DR Hannah (refer to report for specific site)refer to report for address and phone number BIBIANA-DIRECT Negative (Normal) Comments: Performed at: - [facility] [address] [id number] Director: Joaquim Barrett PhD, Phone: [phone] :06 CBC W/Diff, Automated Comments: CMP,CBCD FOR DR PHELPS,CBCD FOR DR [facility]Grand [facility] Qymzxmengz6884 [address] [place], [place], [address] Absolute Lymph 1.89 {X10_3/ul} (Normal) Range: 0.83-4.51 [...] mg/dL (Normal) Range: 82-167 Comments: Performed at: [place] [id number] Director: Joaquim Barrett PhD, Phone: [phone] :06 Complement C4 Comments: CMP,CBCD FOR DR PHELPS,CBCD FOR DR Hannah (refer to report for specific site)refer to report for address and phone number COMP C4 14 mg/dL (Normal) Range: 14-44 :06 Comprehensive Metabolic Profil Comments: CMP,CBCD FOR DR LOTTmountain view regional medical centerotoniel [facility] Euuryeaqch[address] [place] [address], [id number] GAP 8 (Normal) Range: 5-15 CO2 30.0 [...] Range: 70-110 :06 Magnesium Comments: CMP,CBCD FOR [facility] Pcwujzijlg8517 [address] [place], [id number] MG 2.1 mg/dL (Normal) Range: 1.8-2.4 :06 Protein+Creatinine Ratio,Urine Comments: CMP,CBCD FOR [facility] Gtbrcvapru4695 [address] [place], [id number] PROT:CRE RATIO 128 {mg/g_CRE} (Normal) Range: 0-200 PROTEIN,UR.RAN. 13.8 mg/dL (Abnormal) UR CREAT 108.00 mg/dL (Normal) :06 Vitamin D,25 Hydroxy Comments: CMP,CBCD FOR [facility] Ldahnivpdz3958 [address] [place], [id number] Vitamin D 25-OH 48.7 ng/mL (Normal) Comments: Vitamin D 25(OH) Status Range Deficiency <20 ng/mL (50nmol/L) Insuffciency 20 - 30 ng/mL (50 - 75 nmol/L) Sufficiency 30 - 100 ng/mL (75 - 250 nmol/L) Toxicity >100 ng/mL (>250 nmol/L) 8-Yjx-208931:07 Fecal Occult Blood , Office (90283) Fecal Occult Blood , Office (Inhouse) negative (Normal) :22 CBC W/Diff, Automated Comments: RENAL AND MG ARE FOR DR[facility] Rdnhvfqvwb9[address] [place], [address] Absolute Lymph 1.92 {X10_3/ul} (Normal) [...] Comments: RENAL AND MG ARE FOR DR. CLEMENSmountain view regional medical centerotoniel [facility] Hy[address]sf[address] [place], [address] GAP 6 (Normal) Range: 5-15 [...] 7-18 GLU 87 mg/dL (Normal) Range: 70-110 98-Mxy-89602:22 Lipid Profile Comments: RENAL AND MG ARE FOR DR. Hollingsworthotoniel [facility] Fgstxdfmvf5806 [address] [place], [place], [id number] VLDL 12 mg/dL (Normal) Range: 5-40 LDL [...] Comments: RENAL AND MG ARE [facility] Gbdhpwqlcq2073[place], [address] MG 2.1 mg/dL (Normal) Range: 1.8-2.4 :22 Phosphorus Comments: RENAL AND MG ARE FOR [facility] Zvffjxonch1824 [place], [address] PHOS 2.6 mg/dL (Normal) Range: 2.5-4.9 :22 Thyroid Stim Hormone (TSH) Comments: RENAL AND MG ARE FOR [facility] Jbljeqrhlt5105 [place], [address] TSH 2.69 {uIU/mL} (Normal) Range: 0.358-3.74 :22 Vitamin D,25 Hydroxy Comments: RENAL AND MG ARE FOR [facility] Bxdajwjufm6144[address] [place], [address] Vitamin D 25-OH 51.1 ng/mL (Normal) [...] number BIBIANA-DIRECT Positive (Abnormal) Comments: Performed at: [address] [id number] Director: Joaquim Barrett PhD, Phone: [phone] :50 CBC W/Diff, Automated Comments: [facility] Igqmqxutnn7243 [place], [address] Absolute Lymph 1.76 {X10_3/ul} (Normal) Range: [...] mg/dL (Normal) Range: 82-167 Comments: Performed at: [address] [id number] Director: Joaquim Barrett PhD, Phone: [phone] :50 Complement C4 Comments: [facility] (refer to report for specific site)refer to report for address and phone number COMP C4 15 mg/dL (Normal) Range: 14-44 :50 Comprehensive Metabolic Profil Comments: ORDERED CMP CBCD PROCRE UACDR.SHELLEY ORDERED VITD CMP BIBIANA CBCD C3 C4 MG PROCRE UADR.ENDY [facility] Blmniwsuzc79[address] [place], [place], [id number] GAP 5 (Normal) Range: 5-15 CO2 28.0 [...] (Normal) Range: 70-110 :50 Culture, Urine Comments: [facility] Lcvukrsfsu8[address] [place], [place], [address] CUUR See Note (Normal) Comments: Urine CultureCulture exhibits no growth. :50 Magnesium Comments: ORDERED CMP CBCD PROCRE UACDR.SHELLEY ORDERED VITD CMP BIBIANA CBCD C3 C4 MG PROCRE UADR.ENDY ORDERED [facility] Pfpkyjexna6654 [place], [address] MG 2.1 mg/dL (Normal) Range: 1.8-2.4 :50 Protein+Creatinine Ratio,Urine Comments: [facility] Toeuijfjyt2176 [place], [address] PROT:CRE RATIO 161 {mg/g_CRE} (Normal) Range: 0-200 PROTEIN,UR.RAN. 10.6 mg/dL (Normal) UR CREAT 65.90 mg/dL (Normal) :50 Urinalysis, Routine (Dipstick) Comments: How was Urine Obtained? CLEAN [facility] Kjpfgiyyet2334 [place], [address] LEUK ESTERASE 25 /ul (Abnormal) [...] Yellow (Normal) :50 Vitamin D,25 Hydroxy Comments: [facility] Qyijnwmtte0439 [place], [address] Vitamin D 25-OH 58.7 ng/mL (Normal) Comments: Vitamin D 25(OH) Status Range Deficiency <20 ng/mL (50nmol/L) Insuffciency 20 - 30 ng/mL (50 - 75 nmol/L) Sufficiency 30 - 100 ng/mL (75 - 250 nmol/L) Toxicity >100 ng/mL (>250 nmol/L) :33 Lipid Profile Comments: [facility] Tijywdocwr2029 [address] [place], [place], [address] VLDL 18 mg/dL (Normal) Range: 5-40 LDL [...] High Risk 27-Jul-20158:33 Vitamin D,25 Hydroxy Comments: [facility] Bitfetluwx65[address] [place], [place], [address] Vitamin D 25-OH 43.3 ng/mL (Normal) Comments: Vitamin D 25(OH) Status Range Deficiency <20 ng/mL (50nmol/L) Insuffciency 20 - 30 ng/mL (50 - 75 nmol/L) Sufficiency 30 - 100 ng/mL (75 - 250 nmol/L) Toxicity >100 ng/mL (>250 nmol/L) 37-Avi-032492:12 EBV Acute Prof IgG / IgM Comments: [...] - Antibody Ab sentPerformed at: - [facility] [address] [id number] Director: Joaquim Barrett PhD, Phone: [phone] EB-NAg [id number] 38.3 U/mL (Abnormal) Range: 0.0-17.9 Comments: Negative <18.0 Equivocal 18.0 - 21.9 Positive >21.9 EB-VCA [id number] 306.0 U/mL (Abnormal) Range: 0.0-17.9 Comments: Negative <18.0 Equivocal 18.0 - 21.9 Positive >21.9 EB-EA IgG 15125 <9.0 U/mL (Normal) Range: 0.0-8.9 Comments: Negative < 9.0 Equivocal 9.0 - 10.9 Positive >10.9 EB-VCA [id number] < 36.0 U/mL (Normal) Range: 0.0-35.9 Comments: Negative <36.0 Equivocal 36.0 - 43.9 Positive >43.9 :15 Immunofixation Urine Comments: PATIENT STATES FLU X'S 2 WAS DONE AT THE OFFICE BY ONE OFTHE NURSES.[facility] (refer to report for specific site)refer to report for address and phone number CLIVE Urine Comment (Normal) Comments: No monoclonality detected.Performed at: [facility]Co[address] [id number] Director: Joaquim Barrett PhD, Phone: [phone] :15 Immunofixation, Serum Comments: PATIENT STATES FLU [...] 1776 697 mg/dL (Abnormal) Range: 700-1600 :15 [place] [employer] Chains Comments: PATIENT STATES FLU [...] % (Normal) BETA GLOB,U 30.8 % (Normal) PRMAJ-7-EWNK,U 16.9 % (Normal) [place]-4-YSMS,U 1.8 % (Normal) ALBUMIN,UR 35.1 % (Normal) PROTEIN,UR 13.0 mg/dL (Normal) Range: 0.0-15.0 83-Lti-856901:15 Protein Electroph, S Comments: PATIENT STATES FLU X'S 2 WAS DONE AT THE OFFICE BY ONE OFTHE NURSES.[facility] (refer to report for specific site)refer to report for address and phone number NOTE Comment (Normal) Comments: Protein electrophoresis scan will follow via computer,mail, or building custodian delivery. NOTE: Comment (Normal) Comments: The SPE pattern appears essentially unremarkable. Evidenceof monoclonal protein is not apparent. INTERPRETATION Comment (Normal) Comments: Protein electrophoresis scan will follow via computer,mail, or building custodian delivery. A/G RATIO 1.7 (Normal) Range: 0.7-2.0 GLOBULIN, TOTAL 2.3 g/dL (Normal) Range: 2.0-4.5 M-SPIKE (Normal) Comments: Not Observed GAMMA GLOBULIN 0.7 g/dL (Normal) Range: 0.5-1.6 BETA GLOBULIN 0.8 g/dL (Normal) Range: 0.6-1.3 ALPHA-2 GLOBUL 0.6 g/dL (Normal) Range: 0.4-1.2 ALPHA-1 GLOBUL 0.2 g/dL (Normal) Range: 0.1-0.4 ALBUMIN 3.9 g/dL (Normal) Range: 3.2-5.6 PROTEIN,TOTAL 6.2 g/dL (Normal) Range: 6.0-8.5 95-Yrj-806100:22 Rapid Flu (84378 x 2) Influenza A Ag negative (Normal) 54-Fjq-455794:56 Vitamin D,25 Hydroxy Comments: [facility] [address]qfwhhczla[address] [place], [place], [address] Vitamin D 25-OH 87.5 ng/mL (Normal) Comments: Vitamin D 25(OH) Status Range Deficiency <20 ng/mL (50nmol/L) Insuffciency 20 - 30 ng/mL (50 - 75 nmol/L) Sufficiency 30 - 100 ng/mL (75 - 250 nmol/L) Toxicity >100 ng/mL (>250 nmol/L) :31 CBC W/Diff, Automated Comments: [facility] Noamfihyfj14[address]. [place], [place], [address] Absolute Lymph 1.68 {X10_3/ul} (Normal) Range: 0.83-4.51 [...] Range: 4.4-11.0 :31 Comprehensive Metabolic Profil Comments: [facility] [address] [place], [place], [address] GAP 3 (Abnormal) Range: 5-15 CO2 32.0 [...] (Normal) Range: 70-110 :31 Protein+Creatinine Ratio,Urine Comments: [facility] [address] [place], [place], [address] PROT:CRE RATIO 180 {mg/g_CRE} (Normal) Range: 0-200 PROTEIN,UR.RAN. 39.2 mg/dL (Abnormal) UR CREAT 218.00 mg/dL (Normal) :31 Urinalysis, Complete Comments: How was Urine Obtained? [facility] Eaioagjinv[address] [facility] [place], [address] AMORPHOUS 1+ (Normal) MUCUS, URINE [...] CLARITY Sl. Cloudy (Normal) COLOR Yellow (Normal) 51-Dzx-913578:20 Basic Metabolic Profile (BMP) Comments: [facility] Wxbrswfqfm1369 [facility]. [place], [place], [address] GAP 6 (Normal) Range: 5-15 CO2 30.0 [...] 7-18 GLU 89 mg/dL (Normal) Range: 70-110 49-Ybv-835851:20 CBC-Complete Blood Cnt No Diff Comments: [facility] Mkimcovaap0988 [facility] [place], [address] MPV 9.2 fL (Normal) Range: [...] 4.2-5.4 WBC 4.7 K/mm3 (Normal) Range: 4.4-11.0 19-Nvx-502384:01 Basic Metabolic Profile (BMP) Comments: Test performed at:[facility] Izjmcagaaa1376 [facility] [place] [address] GAP 4 (Abnormal) Range: 5-15 [...] 7-18 GLU 97 mg/dL (Normal) Range: 70-110 65-Twz-939023:01 Vitamin D,25 Hydroxy Comments: Test performed at:[facility] Tenbbethvo9885 [facility] [place] [address] Vitamin D 25-OH 22.7 ng/mL (Normal) Comments: Vitamin D 25(OH) Status Range Deficiency <20 ng/mL (50nmol/L) Insuffciency 20 - 30 ng/mL (50 - 75 nmol/L) Sufficiency 30 - 100 ng/mL (75 - 250 nmol/L) Toxicity >100 ng/mL (>250 nmol/L) :12 CBC W/Diff, Automated Comments: Test performed at:[facility] Olchkyhjor93[address] [place], [place] [address] Absolute Lymph 1.39 {X10_3/ul} (Normal) Range: 0.83-4.51 [...] :12 Comprehensive Metabolic Profil Comments: Test performed at:[facility] Ezhcxkrkaj1149 [facility] [place] [address] GAP 9 (Normal) Range: 5-15 [...] :52 CBC W/Diff, Automated Comments: Test performed at:[facility] Ehzlrrsilf3736 [facility] [place] [address] Absolute Lymph 1.62 {X10_3/ul} (Normal) [...] :52 Comprehensive Metabolic Profil Comments: Test performed at:[facility] Fwmylapmkx0434 [address] [place], [place] [address] GAP 6 (Normal) Range: 5-15 CO2 31.0 [...] 7-18 GLU 77 mg/dL (Normal) Range: 70-110 4-Tvp-671514:40 FENTANYL Blood Level Comments: Test performed at:[facility] Msquzhkagt[address] [facility] [place] [address] FENTANYL BLD (Normal) Comments: Sent directly to testing facility per ordering physician.02/16/15 1622 AIXA :53 CBC W/Diff, Automated Comments: Test performed at:[facility] [address]ug[address]zzd[address] [place], [place] [address] Absolute Lymph 1.44 {X10_3/ul} (Normal) Range: 0.83-4.51 [...] :53 Comprehensive Metabolic Profil Comments: Test performed at:[facility] Sevezckkum0929 [facility] [place] [address] GAP 5 (Normal) Range: 5-15 [...] 70-110 :53 Lipid Profile Comments: Test performed at:[facility] Qzxtyvbvni4119 [facility] [place] [address] VLDL 13 mg/dL (Normal) Range: [...] 200-240 mg/dL Borderline >240 mg/dL High Risk 65-Bkh-93537:53 Vitamin D,25 Hydroxy Comments: Test performed at:[facility] Uwjqrwprtz0520 [place] [address] Vitamin D 25-OH 27.3 ng/mL (Normal) Comments: Vitamin D 25(OH) Status Range Deficiency <20 ng/mL (50nmol/L) Insuffciency 20 - 30 ng/mL (50 - 75 nmol/L) Sufficiency 30 - 100 ng/mL (75 - 250 nmol/L) Toxicity >100 ng/mL (>250 nmol/L) 0-Cpl-998234:14 Culture, Urine Comments: Test performed at:[facility] Oafwprseph6018 [place] [address] ; ordered by endy JACKSON See Note (Normal) Comments: Urine CultureCulture exhibits no growth. 5-Vty-497610:14 Urinalysis, Routine (Dipstick) Comments: How was Urine Obtained? CLEAN CATCHTest performed at:[facility] Xxhkhfpqqo9856 [place] [address] LEUK ESTERASE Negative /ul (Normal) OCCULT BLOOD-UR Negative /ul (Normal) NITRITE UR Negative (Normal) UROBILI Normal mg/dL (Normal) PROT DIPSTX Negative mg/dL (Normal) pH UR 5.0 (Normal) Range: 5.0 - 8.0 SP.GR. DIPSTX 1.030 (Normal) Range: 1.002-1.030 KETONE UR Negative mg/dL (Normal) BILIRUBIN URINE Negative mg/dL (Normal) GLUCOSE, UR Normal mg/dL (Normal) CLARITY Clear (Normal) COLOR Yellow (Normal) 84-Kdd-429128:19 FENTANYL Blood Level Comments: Test performed at:[facility] [address] [place] [address] FENTANYL BLD (Normal) Comments: Scanned image report available in EMR :48 CBC W/Diff, Automated Comments: Test performed at:[facility] [address]qpaf[address] [place] [address] Absolute Lymph 2.34 {X10_3/ul} (Normal) [...] :48 Comprehensive Metabolic Profil Comments: Test performed at:[facility] Gnnbdohzeq[address] [place] [address] GAP 4 (Abnormal) Range: 5-15 [...] CMV Acute Antibody IgM Comments: Test performed at:[facility] Hdopfheply3208 [facility]. [place] [address] CMVIgM AB < 30.0 AU/mL (Normal) Range: 0.0-29.9 Comments: Negative <30.0 Equivocal 30.0 - 34.9 Positive >34.9A positive result is generally indicative of acuteinfection, react ivation or persistent IgM production.Performed at: - [facility] [id number] Director: Yury Cornelius PhD, Phone: [phone] :[phone] CMV Antibody IgG Comments: Test performed at:[facility] Gzjlnzzwah66[address] [place] [address] CMV AB IgG < 0.60 U/mL (Normal) Range: 0.00-0.59 Comments: Negative <0.60 Equivocal 0.60 - 0.69 Positive >0.69 :39 Comprehensive Metabolic Profil Comments: Test performed at:[facility] O[address]cidvnsz[address] [place] [address] GAP 4 (Abnormal) Range: 5-15 [...] Prof IgG / IgM Comments: Test performed at:[facility] Uwgkzwcyln5[address] [place] [address] INTERPRETATION Comment (Normal) Comments: EBV Interpretation ChartInterpretation EBV-IgM VCA-IgG EBNA-IgG EA(D)-IgGEBV Seronegative - - - -Early Phase + - - -Acute Primary + + - +or-InfectionConvalescence/Past - + + +or-InfectionReactivated +or- + + +Infection + Antibody Present - Antibody Absent EB-NAg [id number] 36.1 U/mL (Abnormal) Range: 0.0-17.9 Comments: Negative <18.0 Equivocal 18.0 - 21.9 Positive >21.9 EB-VCA GdV73426 289.0 U/mL (Abnormal) Range: 0.0-17.9 Comments: Negative <18.0 Equivocal 18.0 - 21.9 Positive >21.9 EB-EA IgG 25486 <9.0 U/mL (Normal) Range: 0.0-8.9 Comments: Negative < 9.0 Equivocal 9.0 - 10.9 Positive >10.9 EB-VCA [id number] < 36.0 U/mL (Normal) Range: 0.0-35.9 Comments: Negative <36.0 Equivocal 36.0 - 43.9 Positive >43.9 :39 Lipid Profile Comments: Test performed at:[facility] Mqwqnkmldl[address] [place] [address] VLDL 11 mg/dL (Normal) Range: 5-40 [...] :39 Vitamin D,25 Hydroxy Comments: Test performed at:[facility] Rvncutjwep[address] [place] [address] Vitamin D 25-OH 36.8 ng/mL (Normal) Comments: Vitamin D 25(OH) Status Range Deficiency <20 ng/mL (50nmol/L) Insuffciency 20 - 30 ng/mL (50 - 75 nmol/L) Sufficiency 30 - 100 ng/mL (75 - 250 nmol/L) Toxicity >100 ng/mL (>250 nmol/L) 95-Wuj-063015:32 URINE MICHI CULTURE-ZACHARY COL Comments: PATIENT NOT FASTINGPERFORMED BY: [facility] [id number] Information: SRC:UR [id number] COUNT (60085) Result 1 ENTECC (Abnormal) Comments: Enterobacter cloacae [...] S Urine Final report Culture,Comprehensi (Abnormal) ve 97-Evs-70969:50 Urinalysis, Office (53945) UA - LEUKOCYTE ESTERASE Small (Normal) UA [...] :00 BIBIANA Positive (Abnormal) Comments: Performed at: [facility] [id number] Director: Yury Cornelius PhD, Phone: [phone] :[phone] ANEX FRANCOIS-[facility] <0.2 {AI} (Normal) Range: 0.0-0.9 EQUIPMENT WASHER-[facility] >8.0 {AI} (Abnormal) Range: 0.0-0.9 : ANTIJO-[facility] <0.2 {AI} (Normal) Range: 0.0-0.9 : ANTISCL-[facility] <0.2 {AI} (Normal) Range: 0.0-0.9 : C3 108 (Normal) Range: 90-180 Comments: Result Units: mg/dL AdultPerformed at: CB - [facility] [address] [id number] Director: Yury Cornelius PhD, Phone: [phone] : C4 15 (Normal) Range: 9-36 Comments: [...] UCLAR Sl. Cloudy (Normal) UCOL Yellow (Normal) 5-Xhr-682021:53 CUUR URC See Note (Normal) Comments: ORGANISM 1: Mixed Gram Positive OrganismsColony Count 1000-10,000MIX CONTAM Mixed Contaminants. Submit new specimen if indicated. 58-Lid-007886:07 BIBIANA Positive (Abnormal) Comments: Performed at: - [address] [id number] Director: Yury Cornelius PhD, Phone: [phone] 54-Fri-700661:07 CBCD ALC 1.50 {X10_3/ul} (Normal) Range: 0.83-4.51 [...] HEBSAG ttHEBSAG Negative (Normal) Comments: Performed at: [address] [id number] Director: Yury Cornelius PhD, Phone: [phone] at: [address] [place] [id number] Director: Rogelio Randle PhD, Phone: [phone] at: [address] [id number] Director: Murray Mabry MD, Phone: [phone] :[phone] HECAB tHECAB <0.1 {s/co_ratio} (Normal) Range: 0.0-0.9 Comments: Negative: < 0.8Indeterminate: 0.8 - 0.9Positive: > 0.9In order to reduce the incidence of a false positiveresult, the CDC recommends that all s/co ratiosbetween 1.0 and 10.9 be confirmed b y a more specificsupplemental or PCR testing. [facility] offers HCV Abw/Reflex to Verification test #[id number]. :07 HLAB27 tHLAB27 Negative (Normal) Comments: HLA-B*27 NegativeHLA Lab CLIA ID Number [id number] test was performed using PCR (Polymerase ChainReaction)/SSOP [...] :37 BID 0.21 mg/dL (Normal) Comments: Comments: ur4870; CALCIFEDOIL;PLASMA;RF Range: 0.00-0.30 :37 CBCD ALC 1.03 [...] (Abnormal) Range: 4.4-11.0 :37 CMP Comments: Comments: [id number]; CALCIFEDOIL;PLASMA;RF GAP 7 (Normal) Range: 5-15 CO2 [...] (Normal) Range: 70-110 :37 LIPID Comments: Comments: yq5307; CALCIFEDOIL;PLASMA;RF VLDL 24 mg/dL (Normal) Range: 5-40 LDL 71 mg/dL (Normal) Range: 0-130 HDL 40 mg/dL (Normal) Comments: Reference RangeHDL <40 mg/dL Low HDL CholesterolHDL >or= 60 mg/dL High HDL Cholesterol CHOL 135 mg/dL (Normal) Comments: <200 mg/dL Xtxjpfipx291-547 mg/dL Borderline>240 mg/dL High Risk TRIG 122 mg/dL (Normal) Range: 0-199 Comments: Serum Triglycerides Reference IntervalNormal <150 mg/dLBorderline high 150 - 199 mg/dLHigh 200 - 499 mg/ dLVery High > or = 500 mg/dL 72-Yrl-138964:37 TSH 1.70 {uIU/mL} (Normal) Comments: Comments: [id number]; CALCIFEDOIL;PLASMA;RF Range: 0.358-3.74 85-Vlb-712105:30 VITD 57.3 mg/mL (Normal) Comments: Vitamin D 25(OH) Status RangeDeficiency <20 ng/mL (50nmol/L)Insuffciency 20 - 30 ng/mL (50 - 75 nmol/L)Sufficiency 30 - 100 ng/mL (75 - 250 nmol/L)Toxicity >100 ng/mL (>250 nmol/L) :27 URINE MICHI CULTURE-ZACHARY COL Comments: PATIENT NOT FASTINGPERFORMED BY: [facility] Inmdig84[address] [facility] [id number] Information: SRC:UR [id number] COUNT (16567) Antimicrobial MIHEAD (Normal) Comments: S = Susceptible; [...] primarily for treating urinary tract infections. (CLSI, [id number],2009) Urine Final report (Abnormal) Culture,Comprehensive 83-Gso-083981:11 Urinalysis, Office (34370) UA - LEUKOCYTE ESTERASE Trace (Normal) UA - NITRITE Negative (Normal) URINE UROBILINGN ZACHARY TIMED Normal mg/dL (Normal) UA - PROTEIN Negative mg/dL (Normal) UA - PH 6 (Abnormal) UA - BLOOD Hemolyzed Trace (Normal) UA - SPECIFIC GRAVITY 1.025 (Normal) UA - KETONES Small mg/dL (Normal) UA - BILIRUBIN Small (Normal) UA - GLUCOSE Negative (Normal) 06-Shy-235735:28 MICHI CULTURE-OTHER (79728) Comments: PATIENT NOT FASTINGPERFORMED BY: JOHN [facility] Rnaqhm73[address] [place] [id number] Information: SRC:FRANKLIN [id number] Result 1 RRF (Normal) Comments: Routine respiratory christ Upper Respiratory Culture Final report (Normal) : ARUNA 42 U/L (Normal) Range: 25-115 10 33-Mqu-307093:10 CBCD ANC 5.0 {X10_3/uL} (Normal) Range: 2.0-7.7 [...] U/L (Abnormal) Range: 70-290 :17 Urinalysis, Office (97342) UA - LEUKOCYTE ESTERASE Small (Normal) UA [...] Range: 16.0-45.0 19 Comments: Performed at: - [facility] [id number] Director: Yury Cornelius PhD, Phone: [phone] : GOLD 194 ng/mL (Normal) Range: 8-252 19 :31 LIVER BID 0.17 mg/dL (Normal) Range: 0.00-0.30 BIT 0.50 mg/dL (Normal) Range: 0.00-1.00 ALT 134 U/L (Abnormal) Range: 12-78 ALK 111 U/L (Normal) Range: 50-136 AST 107 U/L (Abnormal) Range: 15-37 ALB 3.8 g/dL (Normal) Range: 3.4-5.0 TPROT 6.7 g/dL (Normal) Range: 6.4-8.2 :08 URINE MICHI CULTURE-ZACHARY COL Comments: PATIENT NOT FASTINGPERFORMED BY: [facility] [address] [id number] Information: SRC:UR [id number] COUNT (85170) Antimicrobial MIHEAD (Normal) Comments: S = Susceptible; [...] Final report Culture,Comprehensive (Normal) :55 Urinalysis, Office (85425) UA - BILIRUBIN Negative (Normal) UA - BLOOD Negative (Normal) UA - GLUCOSE Negative (Normal) UA - KETONES Negative mg/dL (Normal) UA - LEUKOCYTE ESTERASE Trace (Normal) UA - NITRITE Negative (Normal) UA - PH 5.0 (Normal) Comments: 5.5 UA - PROTEIN Negative mg/dL (Normal) UA - SPECIFIC GRAVITY 1.025 (Normal) Comments: > 1.030 URINE UROBILINGN ZACHARY TIMED Normal mg/dL (Normal) 73-Bal-724934:50 CHEST WITHOUT CONTRAST Radiology Report See Note [...] Payan M.D.December 29, 2012 at 4:08:08 PM [id number] ly Signed GP/GP If you are the referring physician and would like to consult with theradiologist who provided this interpretation, please contact Nicolas Boyer at [phone]. If this radiolo gist is unavailable, youwill be directed to another radiologist to assist. If you are a patient with a question regarding this report, pleasecontactyour referring physician directly. Professional Interp retation Provided By: [employer], Phone , These documents contain legally protected [...] 12/29/12 161 Sign by: Bayron Payan MD 34-Rty-91218:46 LIVER Radiology Report See Note (Normal) Comments: PROCEDURE: ABDOMINAL ULTRASOUND - RIGHT UPPER QUADRANT REASON FOR VISIT: Female, 62 years old. Elevated liver functiontests. TECHNIQUE: Ultrasound evaluation of the right upper quadrant [facility] with real-time and static fairchild-scale imaging. [...] size of the right kidney. The right diqjgcdmzbtgul14.1 cm. Normal renal cortex. The right cortex measure s 0.9 cm. Thereisa 1.5 cm x 1.7 cm by 1.1-cm cyst along the medial portion of the kidney.There is no right hydronephrosis. IMPRESSION:Small right renal cyst. Signed:Bayron Payan M.D.December 16, 2012 at 10:11:37 AM [id number] Signed GP/GP If you are the referring physician and would like to consult with theradiologist who provided this interpretation, please contact Anish brewer M.D. at [phone]. If this radiologist is unavailable, youwill be directed to another radiologist to assist. If you are a patient with a question regarding this report, pleasecontactyour referr ing physician directly. Professional Interpretation Provided By: [employer], Phone , These documents contain legally protected [...] 12/16/12 1014 Sign by: Bayron Payan MD 74-Bnq-602097:17 EBGM EBNA > 8.0 {AI} (Abnormal) Range: 0.0-0.8 Comments: Negative <0.9Equivocal 0.9 - 1.0Positive >1.0 tEBINT Comment (Normal) Comments: EBV Interpretation Chart.Interpretation VCA-IgM EA-IgG VCA-IgG NA-ABS.Susceptible - - - -Acute Infection + +or- +or- -Convalescent Phas e +or- +or- + +Chronic or Reactivated - + + +or-Old Infection - - +or- ++ Antibody Present - Antibody AbsentPerformed at: [facility] [id number] Director: Yury Cornelius PhD, Phone: [phone] EBVG > 8.0 {AI} (Abnormal) Range: 0.0-0.8 Comments: Negative <0.9Equivocal 0.9 - 1.0Positive >1.0 EBEAG <0.2 {AI} (Normal) Range: 0.0-0.8 Comments: Negative <0.9Equivocal 0.9 - 1.0Positive >1.0 EBVM < 0.2 {AI} (Normal) Range: 0.0-0.8 Comments: Negative <0.9Equivocal 0.9 - 1.0Positive >1.0 23-Qcx-024695:17 HEABC tHEPCCOMM Comment (Normal) Comments: Non reactive [...] (Normal) ttHEBSAG Negative (Normal) HEAM Negative (Normal) 54-Ppd-890300:17 LIVER BID 0.12 mg/dL (Normal) Range: 0.00-0.30 BIT 0.40 mg/dL (Normal) Range: 0.00-1.00 ALT 182 U/L (Abnormal) Range: 12-78 ALK 122 U/L (Normal) Range: 50-136 AST 121 U/L (Abnormal) Range: 15-37 ALB 4.1 g/dL (Normal) Range: 3.4-5.0 TPROT 7.3 g/dL (Normal) Range: 6.4-8.2 59-Ybg-840190:17 TSH 1.08 {uIU/mL} (Normal) Range: 0.358-3.74 27-Jun-20128:46 [...] Signed:Clark D.O.June 27, 2012 at 5:23:04 PM [id number] Signed DL/DL If you are the referring physician and would like to consult with theradiologist who provided this interpretati on, please contact Mone Lazo at [phone]. If this radiologist is unavailable, you will bedirected to another radiologist to assist. If you are a patient with a question regarding this report , pleasecontactyour referring physician directly. Professional Interpretation Provided By: [employer], Phone , These documents contain legally protected [...] on 06/27/121727 Sign by: Kamilla Epperson DO 3-Kgf-196666:41 DEXA BONE DENSITY STUDY (HP) Radiology Report [...] Payan M.D.June 26, 2012 at 11:52:03 AM [id number] Signed GP/GP If you are the referring physician and would like to consult with theradiologist who provided this interpretation, please contact Nicolas Boyer at [phone]. If this radiologist is unavailable, youwill be directed to another radiologist to assist. If you are a patient with a question regarding this report, pleasecontactyour referring physician directly. Professional Interpretation Provided By: [employer], Phone , These documents contain lega lly [...] 06/26/12 1232 Sign by: Bayron Payan MD 59-Yiv-143916:08 T4, FREE (THYROXINE) Comments: PATIENT NOT FASTINGPERFORMED BY: [facility] [id number] Information: [id number] ([id number]) T4,Free(Direct) 1.34 ng/dL (Normal) Range: 0.82-1.77 :08 T3, FREE (TRIDOTHYRONINE) (70410) Comments: PATIENT NOT FASTINGPERFORMED BY: [facility] SussexHwsvyt[address] [id number] Triiodothyronine,Free,Serum 2.7 pg/mL (Normal) Range: 2.0-4.4 :08 TSH (64392) Comments: PATIENT NOT FASTINGPERFORMED BY: [facility] SussexUjwcvs[address] [id number] TSH 1.370 {uIU/mL} (Normal) Range: 0.450-4.500 :58 [...] D deficiency has been defined by the Elizabeth ofMedicine and an Endocrine Society practice guideline as alevel of serum 25-OH vitamin D less than 20 ng/mL (1,2).The Endocrine Society went on to further define vitamin Dinsufficiency as a level between 21 and 29 ng/mL (2).1. IOM (Elizabeth of Medicine). 2010. Dietary reference intakes for calcium and D. [place]: The National Academies Press.2. Micky MF, Jessenia SYKES, Katrin CAMARGO, et al. Evaluation, treatment, and prevention of vitamin D deficiency: an Endocrine Society clinical practice guideline. JCEM. 2010; 96(7): 1911-30.Performed at: [address] [id number] Director: Yury Cornelius PhD, Phone: [phone] 22-Dec-20110:00 CHEST WITHOUT CONTRAST Radiology Report See [...] Signed BP/ BP Professional Interpretation Provided By: [facility], , To consult with a radiologist regarding this report, please call our 21V6tyaulrx juanita jacqueline @ Dictated on 12/22/11 1022 [...] D deficiency has been defined by the Elizabeth of[facility] and an Endocrine Society practice guideline as alevel of serum 25-OH vitamin D less than 20 ng/mL (1,2).The Endocrine Society went on to further define vitamin Dinsufficiency as a level between 21 and 29 ng/mL (2).1. IOM (Elizabeth of Medicine). 2010. Dietary reference intakes for calcium and D. [place]: The National Academies Press.2. Micky SO, Jessenia SYKES, Katrin CAMARGO, et al. Evaluation, treatment, and prevention of vitamin D deficiency: an Endocrine Society clinical practice guideline. JCEM. 2010; 96(2): 1911-30.Performed at: [address], [place], [place] [id number] Director: Alma Rodríguez MD, Phone: [phone] :[phone] CBCD,SMEAR DIFF RED CELL MORPH SeeNote [...] mg/dL (Normal) Range: 70-110 :47 VIT D,25 40946 81.4 ng/mL (Normal) Range: 30.0-100.0 Comments: Vitamin D deficiency has been defined by the Elizabeth ofMedicine and an Endocrine Society practice guideline as alevel of serum 25-OH vitamin D less than 20 ng/mL (1,2).The Endocrine Society went on to further define vitamin Dinsufficiency as a level between 21 and 29 ng/mL (2).1. IOM (Elizabeth of Medicine). 2011. Dietary reference intakes for calcium and D. [place]: The National Academies Press.2. Micky MF, Jessenia [place], Ana Paula-Trino CAMARGO, et al. Evaluation, treatment, and prevention of vitamin D deficiency: an Endocrine Society clinical practice guideline. JCEM. 2010; 96(7): 1911-30. Please note reference interval changePerformed at: [address] [id number] Director: Alma Rodríguez MD, Phone: [phone] 59-Vas-348514:11 CHEST WITHOUT CONTRAST Radiology Report See Note [...] SED RATE 11 mm/h (Normal) Range: 0-30 56-Kys-64140:46 RIBS UNIL 2V NO CXR Radiology Report [...] >240 mg/dL High Risk :18 VIT D,25 38944 78.0 ng/mL (Normal) Comments: appt 11/14/10 Range: 32.0-100.0 Comments: Recent studies consider the lower limit of 32.0 ng/mL to bradley threshold for optimal health.William VIVAR. J Nutr. 2004;135(2):317-22.Performed at: - [facility] [address] [id number] Director: Alma Rodríguez MD, Phone: [phone] :[phone] COMP METABOLIC GAP 9 (Normal) Range: [...] >240 mg/dL High Risk :19 VIT D,25 32141 55.3 ng/mL (Normal) Range: 32.0-100.0 Comments: Recent studies consider the lower limit of 32.0 ng/mL to bradley threshold for optimal health.William VIVAR. J Nutr. 2004;135(2):317-22.Performed at: [place] [address]Lab Director: Alma Rodríguez MD, Phone: [phone] 39-Fkg-06174:00 BILAT SCRN DIGITAL & CAD Radiology Report [...] COLUNGA MCKESSONSign by SLOANE TRIVEDI on 06/14/10 7829 Sign by: LSOANE TRIVEDI 38-Qwb-01390:57 COMP METABOLIC ALK P 82 U/L (Normal) [...] CHOL 204 mg/dL (Abnormal) Comments: <200 mg/dL Moakuveyy398-149 mg/dL Borderline>240 mg/dL High Risk HDL 48 mg/dL (Normal) Comments: Reference RangeHDL <40 mg/dL Low HDL CholesterolHDL >or= 60 mg/dL High HDL Cholesterol LDL 136 mg/dL (Abnormal) Range: 0-130 TRIG 102 mg/dL (Normal) Comments: Serum Triglycerides Reference IntervalNormal <150 mg/dLBorderline high 150 - 199 mg/dLHigh 200 - 499 mg/ dLVery High > or = 500 mg/dL :57 VIT D,25 73998 53.8 ng/mL (Normal) Range: 32.0-100.0 Comments: Recent studies consider the lower limit of 32.0 ng/mL to bradley threshold for optimal health.William VIVAR. J Nutr. 2004;135(2):317-22.Performed at: [facility] LabJerry V[place] [address]Lab Director: Alma Rodríguez MD, Phone: [phone] :[phone] LIPID HDL 49 mg/dL (Normal) Comments: [...] CHOL 190 mg/dL (Normal) Comments: <200 mg/dL Nustprhrr104-977 mg/dL Borderline>240 mg/dL High Risk :13 LIVER ALB 3.6 g/dL (Normal) Range: 3.4-5.0 ALK P 92 U/L (Normal) Range: 50-136 ALT 21 U/L (Normal) Range: 12-78 AST 15 U/L (Normal) Range: 15-37 D BILI 0.13 mg/dL (Normal) Range: 0.00-0.30 T BILI 0.50 mg/dL (Normal) Range: 0.00-1.00 T PROT 6.9 g/dL (Normal) Range: 6.4-8.2 :13 VIT D,25 59842 36.7 ng/mL (Normal) Range: 32.0-100.0 Comments: Recent studies consider the lower limit of 32.0 ng/mL to bradley threshold for optimal health.William VIVAR. J Nutr. 2004;135(2):317-22.Performed at: [address] [id number] Director: Milan Torres MD 6-Gko-609541:43 ABDOMEN/PELVIS WITH CONTRAST Radiology Report See Note (Normal) Comments: Exam Number: [id number] CLINICAL:Abdominal pain. CT ABDOMEN AND PELVIS WITH [...] significant spondylolisthesis. Reported By: LUZ VALERA M.D. 51-Auz-31666:14 CBCD,SMEAR DIFF BAND 2 % (Normal) Range: [...] 47-70 WBC 3.5 K/mm3 (Abnormal) Range: 4.4-11.0 03-Lwj-92057:14 COMP METABOLIC A/G 1.3 {RATIO} (Normal) Range: [...] {uIU/mL} (Normal) Range: 0.358-3.74 :14 VIT D,25 38121 38.9 ng/mL (Normal) Range: 32.0-100.0 Comments: Recent studies consider the lower limit of 32.0 ng/mL to bradley threshold for optimal health.William VIVAR. J Nutr. 2004;135(2):317-22.Performed At: [facility] [place], [place] [id number] :10 C-REACTIVE PROT 40.70 mg/L (Abnormal) Range: 0.0-3.0 Comments: C-Reactive Protein (CRP) provides useful information for thediagnosis, therapy and monitoring of inflammatory processesand associated diseases. For the evaluation of Relative Riskfor Cardiovascular Dise ase, a High Sensitivity CRP (HSCRP)should be ordered. :10 ESR SED RATE 50 (Abnormal) Range: 0-20 :03 Urinalysis, Office (01173) UA - BILIRUBIN Negative (Normal) UA - [...] $$$ <=4 S TRIMETHOPRIM/SULFAMETHOXAZO $ >=320 R 36-Rrr-26900:41 BILAT SCRN DIGITAL & CAD Radiology Report See Note (Normal) Comments: Exam Number: [id number] MAMMOGRAM, BILATERAL SCREENING DIGITAL AND CAD HISTORYRoutine [...] mammograms werealso examined with computer-aided detection software ([employer] Reported By: SLOANE TRIVEDI M.D. :55 [...] - 9.1 <0.2 Postmenopausal 23.0 - 116.3 61-Kyo-786499:22 LUTEIN HOR 4283 15.8 m[iU]/mL (Normal) Range: [...] 15.9 - 54.0 Contraceptives 0.7 - 5.6 39-Yro-891489:22 PROLACTIN 4465 10.3 ng/mL (Normal) Range: 2.8-29.2 [...] 208.5 Postmenopausal 1.8 - 20.3Per formed At: [facility] [place], [place] [id number] 66-Iun-037880:22 ROUTINE UA BILIRUBIN URINE SeeNote (Normal) Comments: [...] Report See Note (Normal) Comments: Exam Number: [id number] CLINICAL: Headaches, memory loss MRI BRAIN WITH [...] a demonstrated aneurysm or occlusion of the [place]. There is no extra-axial fluid [...] {uIU/mL} (Normal) Range: 0.34-4.82 :08 VIT D,25 49060 38.2 ng/mL (Normal) Range: 32.0-100.0 Comments: Recent studies consider the lower limit of 32.0 ng/mL to bradley threshold for optimal health.William VIVAR. J Nutr. 2004;135(2):317-22.Performed At: [facility] [place], [place] [id number] :08 VITAMIN B12 316 pg/mL (Normal) Range: 211-911 :52 BRAIN/HEAD WITHOUT CONTRAST Radiology Report See Note (Normal) Comments: Exam Number: [id number] CLINICAL:58 year old female with 39 year [...] further evaluation. Reported By: SLOANE VARGAS M.D. 13-Hbf-523607:49 KIDNEY (HP) Radiology Report See Note (Normal) Comments: Exam Number: [id number] CLINICAL:Renal insufficiency RENAL ULTRASOUND COMPARISON:None. FINDINGS: The [...] 3.5-5.1 NA 141 mmol/L (Normal) Range: 136-145 79-Buc-482431:25 CHEST, PA AND LATERAL (MT) Radiology Report See Note (Normal) Comments: Exam Number: [id number] CHEST PA AND LATERAL STATEMENTLeft sided rib [...] Comments: GLU,2HPPG 75gm GLUC PPG GLUP from 0606:Z09991A. Comments: Glucose result less than 50 mg/dL [...] 6.7 g/dL (Normal) Range: 6.4-8.2 :42 EBVIgG/M 633140 EB-EA IgG 85938 143 AU/mL (Abnormal) Range: 0-99 Comments: Negative <100 Equivocal 100 - 120 Positive >120 EB-NAg [id number] 1871 AU/mL (Abnormal) Range: 0-99 Comments: Negative <100 Equivocal 100 - 120 Positive >120 EB-VCA [id number] 3769 AU/mL (Abnormal) Range: 0-99 Comments: Negative <100 Equivocal 100 - 120 Positive >120 EB-VCA [id number] 13 AU/mL (Normal) Range: 0-99 Comments: Negative [...] + Antibody Present - Antibody AbsentPerformed At: [facility] [place], [place] [id number] :42 ROUTINE UA BILIRUBIN URINE SeeNote (Normal) [...] Report See Note (Normal) Comments: Exam Number: [id number] MAMMOGRAM, BILATERAL SCREENING DIGITAL AND CAD HISTORYRoutine [...] werealso examined with computer-aided detection softw are ([employer] Reported By: SLOANE TRIVEDI M.D. 6-Uoa-753869:34 BIBIANA-D 076961 BIBIANA-DIRECT 51 AU/mL (Normal) Range: 0-99 Comments: [...] {IU/mL} (Normal) Range: 0.0-13.9 Comments: Performed At: [address] [id number] :34 TSH 2.12 {uIU/mL} (Normal) Range: 0.34-4.82 [...] $$$ <=16 S TRIMETHOPRIM/SULFAMETHOXAZ $$ <=10 S 19-Zka-073017:08 ROUTINE UA BILIRUBIN URINE SeeNote (Normal) Comments: [...] 0.2 EU/dl (Normal) Range: 0.2 - 1.0 97-Pdl-758218:45 CULTURE, URINE URINE CULTURE See Note {CFU/mL} [...] Indication: Migraine Planned Observations T4, FREE (THYROXINE) (36388)Indication: Thyroid nodule On: Request T3, FREE (TRIDOTHYRONINE) (15237)Indication: Thyroid nodule On: Request TSH (59919)Indication: Thyroid nodule On: Request CBC W/AUTO DIFF WBC (04152)Indication: Mixed hyperlipidemia On: Request METABOLIC PANEL, COMPREHENSIVE (44986)Indication: Mixed hyperlipidemia On: Request LIPOPROTEIN, BLD, BY NMR (32433)Indication: Mixed hyperlipidemia On: Request CALCIFEDIOL (21242)Indication: Vitamin D deficiency, unspecified On: Request C-REACT PROT HIGH SENS(hsCRP) (03837)Indication: Pain in unspecified joint On: Request Sedimentation Rate-ESR (25239)Indication: Pain in unspecified joint On: Request Metabolic Panel, Comprehensive (12020)Indication: Pain in unspecified joint On: Request CBC (Auto) (13779)Indication: Pain in unspecified joint On: Request FECAL OCCULT- Tubes sent home (72530)Indication: Encounter for screening for malignant neoplasm of colon (Renamed from Special screening for malignant neoplasms, colon) On: 2-Njk-120528:14 Request CBC WITH MANUAL DIFF (37674)Indication: Abnormal WBC count On: 48-Ikv-760564:12 Request METABOLIC PANEL, COMPREHENSIVE (43001)Indication: Mixed hyperlipidemia On: :15 Request CBC W/AUTO DIFF WBC (62980)Indication: Mixed hyperlipidemia On: :15 Request LIPID PANEL (29200)Indication: Mixed hyperlipidemia On: :15 Request TSH (90988)Indication: Anxiety On: :15 Request CALCIFIDIOL (72822) VIT D 25Indication: Vitamin D deficiency, unspecified On: :15 Request CALCIFEDIOL (78082)Indication: Vitamin D deficiency, unspecified On: 20-Sep-20159:12 Request EBV Panel (32991)Indication: Fatigue On: 06-Wdq-820630:51 Request SPEP (26872)Indication: Abnormal CBC On: 40-Oth-523881:43 Request UPEP (41803)Indication: Abnormal CBC On: 65-Yfq-841865:30 Request serum free light chains (97358)Indication: Abnormal CBC On: 08-Xrh-387033:29 Request urine immunofixation (59787)Indication: Abnormal CBC On: 48-Huo-914777:29 Request serum immunofixation (53571)Indication: Abnormal CBC On: 35-Uhg-448367:29 Request LIPID PANEL (08828)Indication: Mixed hyperlipidemia On: 49-Ute-421928:46 Request CALCIFIDIOL (02115) VIT D 25Indication: Vitamin D deficiency, unspecified On: 31-Igo-626274:41 Request METABOLIC PANEL, COMPREHENSIVE (90715)Indication: Mixed hyperlipidemia On: :12 Request LIPID PANEL (33496)Indication: Mixed hyperlipidemia On: :12 Request CBC WITH MANUAL DIFF (00410)Indication: postmenopausal without estrogen On: :02 Request METABOLIC PANEL, COMPREHENSIVE (52734)Indication: postmenopausal without estrogen On: 88-Lim-088884:02 Request CALCIFIDIOL (04126) VIT D 25Indication: Vitamin D deficiency, unspecified On: :01 Request CALCIFEDIOL (46448)Indication: Vitamin D deficiency, unspecified On: :26 Request CBC WITH MANUAL DIFF (90814)Indication: Mixed hyperlipidemia On: :26 Request Metabolic Panel, Comprehensive (13117)Indication: Mixed hyperlipidemia On: :26 Request Lipid Panel (10978)Indication: Mixed hyperlipidemia On: :26 Request METABOLIC PANEL, COMPREHENSIVE (34685)Indication: Mixed hyperlipidemia On: :47 Request LIPID PANEL (79950)Indication: Mixed hyperlipidemia On: :47 Request CALCIFIDIOL (00876) VIT D 25Indication: Vitamin D deficiency, unspecified On: :47 Request EBV Panel (38446)Indication: Hepatitis On: :38 Request CMV IGM ANTBDY (47516)Indication: Hepatitis On: :38 Request CMV ANTIBODY (97389)Indication: Hepatitis On: :38 Request CALCIFEDIOL (10104)Indication: Mixed hyperlipidemia On: 23-Fgt-758010:56 Request CBC with manual diff (81756)Indication: Mixed hyperlipidemia On: :56 Request Metabolic Panel, Comprehensive (74553)Indication: Mixed hyperlipidemia On: :56 Request TSH (THYROID STIMULATING HORMONE) (53590)Indication: Mixed hyperlipidemia On: :56 Request LIPID PANEL (74072)Indication: Mixed hyperlipidemia On: :55 Request HEPATIC FUNCTION PANEL (35009)Indication: Mixed hyperlipidemia On: 97-Pze-782859:55 Request HEPATIC FUNCTION PANEL (19084)Indication: Unspecified Diagnosis On: 08-Vsl-324488:25 Request Rapid Strep Test, Office (67742)Indication: Pharyngitis, acute On: 64-Wpo-691252:05 Request Metabolic Panel, Comprehensive (10653)Indication: Epigastric Pain (Renamed from Abdominal pain, epigastric) On: 55-Eni-182121:24 Request Comments: labs stat. Lipase (06569)Indication: Epigastric Pain (Renamed from Abdominal pain, epigastric) On: 68-Cih-839213:24 Request Amylase (35702)Indication: Epigastric Pain (Renamed from Abdominal pain, epigastric) On: 32-Iij-193125:24 Request CBC, Platelets & Auto Diff (08595)Indication: Epigastric Pain (Renamed from Abdominal pain, epigastric) On: 65-Lkx-108174:24 Request URINE MICHI CULTURE-IDENTIFICATN (32456)Indication: Hematuria (Renamed from Blood in the urine) On: 10-Zdt-037649:23 Request ASM (ANTI SMOOTH MUSCLE ANTIBODY) (39238)Indication: Abnormal finding of blood chemistry, unspecified On: :26 Request CERULOPLASMIN (26727)Indication: Abnormal finding of blood chemistry, unspecified On: : Request FERRITIN (88316)Indication: Abnormal finding of blood chemistry, unspecified On: 76-Hbb-688530:26 Request HEPATIC FUNCTION PANEL (04455)Indication: Mixed hyperlipidemia On: 60-Gql-205371:47 Request HEPATIC FUNCTION PANEL (34820)Indication: Abnormal finding of blood chemistry, unspecified On: 00-Wqd-834420:17 Request Comments: 1 week HEPATIC FUNCTION PANEL (91345)Indication: Migraine On: 89-Gzs-103425:26 Request TSH (50629)Indication: Migraine On: 85-Hic-913580:26 Request HEPATITIS PANEL (42565)Indication: Abnormal finding of blood chemistry, unspecified On: 14-Equ-258569:25 Request EBV Panel (78358)Indication: Abnormal finding of blood chemistry, unspecified On: :24 Request Vitamin D Hydroxy (50786)Indication: Vitamin D deficiency, unspecified On: :42 Request CBC WITH MANUAL DIFF (70724)Indication: Irritable bowel syndrome On: :42 Request METABOLIC PANEL, COMPREHENSIVE (46789)Indication: Irritable bowel syndrome On: :42 Request LIPID PANEL (75619)Indication: Mixed hyperlipidemia On: :42 Request CALCIFEDIOL (13344)Indication: Vitamin D deficiency, unspecified On: :06 Request CBC with manual diff (92226)Indication: Mixed hyperlipidemia On: :06 Request Lipid Panel (43815)Indication: Mixed hyperlipidemia On: :06 Request Metabolic Panel, Comprehensive (27503)Indication: Mixed hyperlipidemia On: :06 Request Vitamin D Hydroxy (72569)Indication: Vitamin D deficiency, unspecified On: :17 Request CBC WITH MANUAL DIFF (20591)Indication: Lung nodule On: :17 Request METABOLIC PANEL, COMPREHENSIVE (53129)Indication: Irritable bowel syndrome On: :17 Request LIPID PANEL (84279)Indication: Mixed hyperlipidemia On: 14-Hih-585399:07 Request C-REACTIVE PROTEIN (27717)Indication: Chest pain On: :20 Request SED RATE ERYTHROCYTE (24301)Indication: Chest pain On: :20 Request METABOLIC PANEL, COMPREHENSIVE (86456)Indication: Chest pain On: :20 Request CBC WITH MANUAL DIFF (93138)Indication: Chest pain On: :20 Request D-Dimer (32632)Indication: Chest pain On: :20 Request Comments: stat METABOLIC PANEL, COMPREHENSIVE (64581)Indication: Osteopenia On: 86-Usw-559563:00 Request TSH (64017)Indication: Depressive disorder On: 34-Jmn-890351:58 Request LIPID PANEL (08582)Indication: Mixed hyperlipidemia On: 17-Qlm-941635:57 Request Vitamin D Hydroxy (51319)Indication: Vitamin D deficiency, unspecified On: 74-Niu-470182:57 Request Metabolic Panel, Comprehensive (18637)Indication: Hypopotassemia On: 73-Ukp-246710:58 Request CALCIFEDIOL (44104)Indication: Vitamin D deficiency, unspecified On: 00-Fic-666641:58 Request Lipid Panel (93670)Indication: Mixed hyperlipidemia On: :57 Request METABOLIC PANEL, COMPREHENSIVE (35410)Indication: Migraine On: 91-Lxw-403084:53 Request LIPID PANEL (80148)Indication: Mixed hyperlipidemia On: 61-Vnb-922887:53 Request Vitamin D Hydroxy (88420)Indication: Vitamin D deficiency, unspecified On: 76-Gye-901308:53 Request Vitamin D Hydroxy (78503)Indication: Vitamin D deficiency, unspecified On: 95-Qsk-341946:49 Request METABOLIC PANEL, COMPREHENSIVE (68752)Indication: Irritable bowel syndrome On: 11-Ggc-308718:48 Request LIPID PANEL (25486)Indication: Mixed hyperlipidemia On: 60-Nvw-671955:48 Request METABOLIC PANEL, COMPREHENSIVE (69943)Indication: Hypopotassemia On: 88-Ncd-303409:56 Request LIPID PANEL (97232)Indication: Mixed hyperlipidemia On: 47-Ydn-299502:56 Request Vitamin D Hydroxy (29649)Indication: Vitamin D deficiency, unspecified On: 72-Lhg-993912:56 Request HEPATIC FUNCTION PANEL (33148)Indication: Mixed hyperlipidemia On: 76-Flm-855986:07 Request LIPID PANEL (37135)Indication: Mixed hyperlipidemia On: 34-Mya-158258:07 Request URINE MICHI CULTURE-IDENTIFICATN (30546)Indication: Dysuria On: 3-Sod-562262:40 Request URINALYSIS W/O MICRO ([id number])Indication: Other signs and symptoms in breast On: 44-Qat-921706:31 Request METABOLIC PANEL, COMPREHENSIVE ([id number])Indication: Other signs and symptoms in breast On: 64-Ypn-628645:31 Request TSH ([id number])Indication: Other signs and symptoms in breast On: 54-Fmg-403989:31 Request Vitamin D Hydroxy (80903) On: 6-Lir-898606:30 Request CBC WITH MANUAL DIFF ([id number]) On: 3-Oiq-543755:30 Request METABOLIC PANEL, COMPREHENSIVE ([id number]) On: 4-Ztr-138069:30 Request VITAMIN B-12 (CYANOCOBALAMIN) ([id number]) On: 4-Boz-700533:30 Request TSH ([id number]) On: 0-Gdk-791850:30 Request Metabolic Panel, Basic (33765) On: 95-Ufi-411108:21 Request HEPATIC FUNCTION PANEL (78430)Indication: Mixed hyperlipidemia On: :21 Request LIPID PANEL (48055)Indication: Mixed hyperlipidemia On: 09-Jqu-343307:21 Request METABOLIC PANEL, COMPREHENSIVE (48553)Indication: Hypoglycemia On: 25-Hyv-705974:51 Request LIPID PANEL ([id number])Indication: Low HDL (under 40) On: 52-Ogq-134387:45 Request Glucose, PP/2 Hour (66501)Indication: Fatigue On: : Request VITAMIN B-12 (CYANOCOBALAMIN) ([id number])Indication: Fatigue On: : Request URINALYSIS W/O MICRO (21776)Indication: Fatigue On: : Request TSH (55966)Indication: Fatigue On: : Request CBC WITH MANUAL DIFF ([id number])Indication: Fatigue On: : Request METABOLIC PANEL, COMPREHENSIVE (11485)Indication: Fatigue On: : Request BIBIANA (ANTINUCLEAR ANTIBODY) (75187)Indication: Pain in unspecified joint On: Request C-REACTIVE PROTEIN ([id number])Indication: Pain in unspecified joint On: Request CBC WITH MANUAL DIFF ([id number])Indication: Pain in unspecified joint On: Request METABOLIC PANEL, COMPREHENSIVE (34773)Indication: Pain in unspecified joint On: Request RHEUMATOID FACTOR-QUANT ([id number])Indication: Pain in unspecified joint On: Request SED RATE ERYTHROCYTE ([id number])Indication: Pain in unspecified joint On: Request TSH ([id number])Indication: Pain in unspecified joint On: : Request METABOLIC PANEL, COMPREHENSIVE (34367)Indication: Low HDL (under 40) On: Request LIPID PANEL ([id number])Indication: Low HDL (under 40) On: : Request LIPID PANEL ([id number])Indication: Low HDL (under 40) On: :41 Request HEPATIC FUNCTION PANEL ([id number])Indication: Low HDL (under 40) On: 41 Request Comments: 4 mos LIPID PANEL ([id number])Indication: Low HDL (under 40) On: :26 Request Comments: 3 mos HEPATIC FUNCTION PANEL ([id number])Indication: Low HDL (under 40) On: :26 Request Comments: 3 mos Planned Procedures MRI BRAIN W/ CONTRAST ([id number])By: On: 04-Aug-2018 Intent Rylee Gracia DO, DO, Kathleen SCREENING DIGITAL TOMOSYNTHESIS OF On: 04-Aug-2018 Intent BREAST ([id number])By: Rylee Gracia DO, DO, Kathleen CXR PA & LAT ([id number])By: Nii ABREU, On: 07-Jul-2018 Intent Rylee Nelson DO Flu Vaccine (Quadrivalent) 86155Nv: On: 27-May-2018 Intent Rylee Gracia DO, DO, Comments: Lot #[id number]-L dltd, IMDose prefilled syringegiven by: Nohemy reviewed and ABN signed Rylee Wax CurettesBy: Rylee Gracia DO On: 12-Feb-2018 Intent Rylee Gracia DO Ear Irrigation ([id number])By: Nii On: 12-Feb-2018 Rylee Field DO, DO, Kathleen Comments: small amount of yellow was irrigated out of right ear, patient tolerated without difficulty ear wax currette used to remove remainder of wax X-RAY OF SHOULDER, TWO VIEWS On: 12-Feb-2018 Intent ([id number])By: Rylee Gracia DO, DO, Kathleen ELECTROCARDIOGRAM, COMPLETE (ECG) On: 12-Feb-2018 Intent ([id number])By: Rylee Gracia DO, DO, Kathleen Ultrasound - ThyroidBy: Nii ABREU, On: 30-Jan-2018 Intent Rylee Nelson DO Wax CurettesBy: Dasia Oliver On: 12-Sep-2017 Intent Ear Irrigation ([id number])By: Benito, On: 12-Sep-2017 Rashida Forman X-RAY OF HAND, THREE VIEWS On: 16-Aug-2017 Intent ([id number])By: Rylee Gracia DO, DO, Kathleen Radiology - Abdomen SeriesBy: On: 02-Jul-2017 Intent Rylee Gracia DO, DO, Comments: FLAT PLATE Rylee ACUTE ABDOMINAL SERIES ([id number])By: On: 27-Jun-2017 Intent Rylee Gracia DO, DO, Kathleen Flu Vaccine (Quadrivalent) 63589Lp: On: 28-May-2017 Intent Nii DO, Rylee Nii DO, Comments: lot: [id number]: 01/06/18ite/route: L freddy, IMamt: 0.5mlVIS and ABN signed when applicableChelsea, LUDLOW MACHINE OPERATOR Rylee SCREENING DIGITAL TOMOSYNTHESIS OF On: 28-May-2017 Intent BREAST ([id number])By: Nii DO, Rylee Nii DO, Rylee THYROID ULTRASOUND ([id number])By: On: 02-Jan-2017 Intent Ini DO, Rylee Nii DO, Rylee Doppler Ultrasound OtherBy: Nii On: 15-Aug-2016 Intent DO Rylee Nii DO, Rylee Comments: left lower extremity PNEUM VAC ADLT/IMUMNOSPR, SBC/INTRM On: 07-May-2016 Intent ([id number])By: NiiRylee calles DO Comments: Lot:[id number]:11/24/17Dose:0.5mgRoute:imSite:r arm Given By:DORIS signed Nii DO Rylee DEXA SCAN AXIAL SKELETON ([id number])By: On: 25-Apr-2016 Intent Nii DO Rlyee Nii DO, Rylee MAMMOGRAM, SCREENING, BOTH BREAST On: 25-Apr-2016 Intent ([id number])By: NiiRylee calles DO Nii DO, Rylee Flu Vaccine (Quadrivalent) [id number]: On: 25-Apr-2016 Intent Hung Santos Comments: FLUlot: [id number]:01/05site:Lt deltoidroute:IMdose:.5mlDEMICK, MA DEXA SCAN AXIAL SKELETON ([id number])By: On: 01-Mar-2016 Intent Nii DO Rylee Nii DO, Rylee Radiology - ChestBy: Ilsa SELLERS, On: 13-Jun-2015 Intent Marlen Phillips Flu Vaccine (Quadrivalent) 42654Cw: On: 27-Apr-2015 Intent Manda Higginbotham MD Comments: Lot:[id number]:01/19/16Dose:0.5mLRoute:IMSite:L DltdGiven By:DORIS signed MAMMOGRAM, SCREENING, BOTH BREAST On: 15-Mar-2015 Intent ([id number])By: Manda Higginbotham MD ELECTROCARDIOGRAM, COMPLETE (ECG) On: 30-Dec-2014 Intent ([id number])By: Rylee Gracia DO Comments: nsr no acute chg Rylee Gracia DO Prevnar 13 ([id number])By: Anahy KRISHNAN, On: 03-Aug-2014 Intent Manda Torres SPECIMEN HANDLING/TRANSPORT On: 14-Jun-2014 Intent ([id number])By: Ilsa SELLERS, Isabel IMMUNIZ ADMNIN, 1 VAC, SNGL/COMBO On: 03-May-2014 Intent ([id number])By: Joey, Nurse FLU VAC, SPLIT, >3 YEARS, INTRAMUSC On: 03-May-2014 Intent ([id number])By: Manda Higginbotham MD Comments: Lot:[id number]:01/18/15Dose:0.5mLRoute:IMSite:L DltdGiven By:DORIS signed MAMMOGRAM, SCREENING, BOTH BREAST On: 09-Feb-2014 Intent ([id number])By: Manda Higginbotham MD Comments: due 07-04 DEXA SCAN AXIAL SKELETON ([id number])By: On: 09-Feb-2014 Intent Manda Higginbotham MD Comments: due 07-04 Eprescribed prescriptions On: 19-Nov-2013 Intent ([id number])By: Rylee Gracia DO, DO, Kathleen Eprescribed prescriptions On: 02-Sep-2013 Intent (G8553)By: Marlen Rosenbaum CNP FLU VAC, SPLIT, >3 YEARS, INTRAMUSC On: 26-May-2013 Intent ([id number])By: Manda Higginbotham MD Comments: Lot:[id number]:Dose:0.5mLRoute:IMSite:L DltdGiven By:DORIS signed IMMUNIZ ADMNIN, 1 VAC, SNGL/COMBO On: 26-May-2013 Intent ([id number])By: Francesca Crystal MAMMOGRAM, SCREENING, BOTH BREASTS On: 14-May-2013 Intent ([id number])By: Manda Higginbotham MD Eprescribed prescriptions On: 30-Dec-2012 Intent ([id number])By: Alaina Patricia LPN L Ultrasound - LiverBy: Fast DO, On: 10-Dec-[address] - ChestBy: Fast DO, Iwona A On: 09-Dec-2012 Intent Comments: december Eprescribed prescriptions On: 09-Dec-2012 Intent ([id number])By: Zabrina Farmer Eprescribed prescriptions On: 01-Aug-2012 Intent (G8553)By: Zabrina Farmer EKG ([id number])By: Zabrina Farmer On: 10-Jun-2012 Intent Comments: ekg showed normal sinus rhythym, normal axis, no acute st/t wave changes Eprescribed prescriptions On: 10-Jun-2012 Intent ([id number])By: Fast DO, Iwona A DXA, BONE DENSITY, AXIAL SKELETON On: 10-Jun-2012 Intent ([id number])By: Fast DO, Iwona A CT - ChestBy: Fast DO, Iwona A On: 10-Jun-2012 Intent Eprescribed prescriptions On: 10-Jun-2012 Intent ([id number])By: Zabrina Farmer Breast Screening - BilateralBy: On: 02-Jun-2012 Intent Fast DO, Iwona A TDAP VACCINE >7 IM ([id number])By: On: 04-Dec-2011 Intent Zabrina Farmer Comments: lot [id number] 06/02, L arm IM, perfileld Alaina CT - ChestBy: Fast DO, Iwona A On: 04-Dec-2011 Intent FLU VAC, SPLIT, >3 YEARS, INTRAMUSC On: 29-May-2011 Intent ([id number])By: Zabrina Farmer Comments: Lot: [id number]: 01/19/12Site: Lt DeltoidDose: Prefilled DoseARiding, REPAIR ARMATURE 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 CT - ChestBy: Fast DO, Iwona A On: 29-May-2011 Intent IMMUNIZ ADMNIN, 1 VAC, SNGL/COMBO On: 29-May-2011 Intent ([id number])By: Zabrina Farmer Pulse Oximetry ([id number])By: Miguel DO, On: 16-Feb-2011 Intent Iwona A Comments: 99 CT - ChestBy: Fast DO, Iwona A On: 16-Feb-2011 Intent Comments: stat-pe protocol- call wet read Radiology - ChestBy: Ilsa SELLERS, On: 06-Feb-2011 Intent Marlen Phillips Zngxbjosx-Nhe-Ibkke ([id number])By: On: 06-Feb-2011 Intent Valeriesalvatoreban SELLERSMarlen Eprescribed prescriptions On: 03-Jan-2011 Intent (G8553)By: Iwona Rivera DO EKG ([id number])By: Manda Higginbotham MD On: 15-Dec-2010 Intent Eprescribed prescriptions On: 17-Nov-2010 Intent (G8553)By: Iwona Rivera DO MAMMOGRAM, SCREENING, BOTH BREASTS On: 06-Mar-2010 Intent ([id number])By: Iwona Rivera DO DXA, BONE DENSITY, AXIAL SKELETON On: 06-Mar-2010 Intent ([id number])By: Iwona Rivera DO CT - Abdomen & PelvisBy: Miguel ABREU, On: 22-Aug-2009 Intent Iwona A PNEUM VAC ADLT/IMUMNOSPR, SBC/INTRM On: 22-Apr-2009 Intent ([id number])By: Samantha Kumar RN IMMUNIZ ADMNIN, 1 VAC, SNGL/COMBO On: 22-Apr-2009 Intent ([id number])By: Samantha Kumar RN Comments: Lot #: [id number] date: mount given: 0.5 mlRoute: IMSite given: right deltoidGiven by: Ban Salas LPN IMMUNIZ ADMNIN, 1 VAC, SNGL/COMBO On: 22-Apr-2009 Intent ([id number])By: Samantha Kumar RN FLU VAC, SPLIT, >3 YEARS, INTRAMUSC On: 22-Apr-2009 Intent ([id number])By: Samantha Kumar RN Comments: Lot #: [id number] date: mount given: 0.5 mlRoute: IMSite given: left deltoidGiven by: Ban Salas LPN Pulse Oximetry (23205)By: Wai On: 15-Apr-[address] - Brain/HeadBy: Iwona Rivera DO On: 19-Nov-2008 Intent Radiology - ChestBy: Ilsa SELLERS, On: 14-Oct-2008 Intent Marlen Phillips Pulse Oximetry ([id number])By: Ilsa On: 14-Oct-2008 Intent Marlen SELLERS Comments: done BC Aerosol Treatment ([id number])By: Ilsa On: 14-Oct-2008 Intent Marlen SELLERS Comments: done BC Spirometry (21485)By: Darian, On: 12-Oct-2008 Intent Zabrina Comments: good effort and curve normal MAMMOGRAM, SCREENING, BOTH BREASTS On: 06-Oct-2008 Intent ([id number])By: Iwona Rivera DO Aerosol Treatment (70323)By: Ilsa On: 08-Sep-2008 Intent Marlen SELLERS Pulse Oximetry ([id number])By: Ilsa On: 08-Sep-2008 Intent Marlen SELLERS EKG ([id number])By: Rylee Gracia DO On: 02-Jul-2008 Intent Rylee Gracia DO Comments: nsr nothing acute-- v1-v1 lead placement(female) FLU VAC, SPLIT, >3 YEARS, INTRAMUSC On: 11-Jun-2008 Intent ([id number])By: Zabrina Farmer Comments: inj given left deltoid no complicationslot:[id number]:12/28 IMMUNIZ ADMNIN, 1 VAC, SNGL/COMBO On: 11-Jun-2008 Intent ([id number])By: Zabrina Farmer EKG ([id number])By: Iwona Rivera DO On: 22-Dec-2007 Intent Comments: ekg showed normal sinus rhythym, normal axis, no acute st/t wave changes MAMMOGRAM, SCREENING, BOTH BREASTS On: 25-Aug-2007 Intent ([id number])By: Iwona Rivera DO IMMUNIZ ADMNIN, 1 VAC, SNGL/COMBO On: 23-May-2007 Intent ([id number])By: Iwona Rivera DO FLU VAC, SPLIT, >3 YEARS, INTRAMUSC On: 23-May-2007 Intent ([id number])By: Iwona Rivera DO Comments: given 0.5cc im in left deltoid lot#[id number] exp.11/27- Instructions Name Dates Details Encounter for [...] The patient does have durable power of maternal fetal physician and living will. The patient has noticed [...] The patient does have durable power of maternal fetal physician and living will. The patient has noticed staying at home rather than doing something new or going out and lack of energy (thinks it is from the lupus). Other providers contributing to the patient's care are recoating machine operator (dr. chavez), urologist (dr. bhatti) and ot her: (skin toggler dr. beaulieu). 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
--- OUTSIDE RECORDS SUMMARY | 2018-10-11 18:53 | XMS RPT_ITS ---
:1950 Author Organization OHIP Support Name Relationship Address Phone R Unavailable Unavailable Unavailable RAY TORRES Unavailable [address] + [place] [address] R Unavailable Unavailable Unavailable RAY TORRES Unavailable [address] + [place] [address] R Unavailable Unavailable Unavailable RAY TORRES Unavailable [address] + [place] [address] R Unavailable Unavailable Unavailable RAY TORRES Unavailable [address] + [place] [address] R Unavailable Unavailable Unavailable RAY TORRES Unavailable [address] + [place] [address] R Unavailable Unavailable Unavailable RAY TORRES Unavailable [address] + [place] [address] R Unavailable Unavailable Unavailable RAY TORRES Unavailable [address] + [place] [address] R Unavailable Unavailable Unavailable RAY TORRES Unavailable [address] + [place] [address] R Unavailable Unavailable Unavailable RAY TORRES Unavailable [address] + [place] [address] R Unavailable Unavailable Unavailable RAY TORRES Unavailable [address] + [place] [address] R Unavailable Unavailable Unavailable RAY TORRES Unavailable [address] + [place] [address] R Unavailable Unavailable Unavailable RAY TORRES Unavailable [address] + [place] [address] R Unavailable Unavailable Unavailable LUBA RAY Unavailable [address] + [place] [address] Care Team Providers Name Role Phone Nii DO, Rylee Attending Unavailable Manda Higginbotham MD Referring Unavailable Nii DO, Rylee Consulting Unavailable Nii, Rylee Attending Unavailable Nii, Rylee Referring Unavailable Nii, Rylee Primary Care Unavailable Nii, Rylee Attending Unavailable Nii, Rylee Referring Unavailable Nii, Rylee Primary Care Unavailable Jovon, Jayaprakash Attending Unavailable Jovon, Jayaprakash Referring Unavailable Nii, Rylee Primary Care Unavailable Prebish, Lauren GROCERY PACKER-C Attending Unavailable Prebish, Lauren GROCERY PACKER-C Referring Unavailable Nii, Rylee Primary Care Unavailable Nii, Rylee Primary Care Unavailable Gretta Luis Attending Unavailable KerrinesGretta cooper Referring Unavailable Nii, Rylee Consulting Unavailable Prebish, Lauren GROCERY PACKER-C Attending Unavailable Prebish, Lauren GROCERY PACKER-C Referring Unavailable Nii, Rylee Primary Care Unavailable [...] - Chronic Jovon, Active [place] kidney disease, [facility] stage 3 (moderate) / Hospital N18.3(ICD-10) Repository 07/08/2018 Unknown Z13.0 - Encounter Jovon, Active [place] for screening for [facility] diseases of the Hospital blood and Repository blood-forming organs and certain disorders involving the immune mechanism / Z13.0(ICD-10) 07/08/2018 Unknown E55.9 - Vitamin D Jovon, Active [place] deficiency, [facility] unspecified / Hospital E55.9(ICD-10) Repository 07/08/2018 Unknown E78.2 - Mixed Jovon, Active [place] hyperlipidemia / [facility] E78.2(ICD-10) Hospital Repository 07/08/2018 Unknown E04.1 - Nontoxic Jovon, Active [place] single thyroid [facility] nodule / Hospital E04.1(ICD-10) Repository 07/07/2018 Unknown R05 - Cough / Rylee Gracia Active [place] R05(ICD-10) [facility] [place] [place] Repository 03/20/2018 Unknown M25.511 - Pain in Rylee Gracia Active [place] right shoulder / [facility] M25.511(ICD-10) Hospital Repository 01/17/2018 Unknown K90.0 - Celiac Alec Sigala Active [place] disease / [facility] K90.0(ICD-10) Hospital Repository 10/16/2017 Unknown M54.5 - Low back Rylee Gracia Active [place] pain / M54.5(ICD-10) [facility] [place] [place] Repository PROCEDURES PROCEDURES No Procedure Records FoundRESULTS RESULTS CERV SPINE 4 OR 5 Observed: 08/14/2018 Status: F Source: [place] VIEWS 2:05 PM [facility] REPOSITORY [facility] Imaging Services [address] [place] [address] Cerv Spine 4 or 5 Views MR#: [id number] Acct: [id number] Name: SUSANNE TORRES Rep #: [id number] : 1950 F 68 From: Jai Munoz MD PCP: Rylee Gracia DO Status: REG CLI Study: Cerv Spine 4 or 5 Views Date of Exam: 08/14/18 Exam# [id number] Ordering Dr: Lauren Topete STUDY: X-RAY - CERVICAL SPINE REASON FOR EXAM: Female, 68 years old. Pain TECHNIQUE: 5 view(s) of the cervical spine were obtained. COMPARISON: None FINDINGS: There is normal alignment and curvature of the cervical spine with no acute fractures or dislocations bowel with degenerative changes C4-C5, C5-C6 and C6-C7 disc spaces. The prevertebral soft tissues are normal. The intervertebral foramina are patent bilaterally. RAD/Cerv Spine 4 or 5 Views IMPRESSION: No fractures. Multilevel degenerative changes of the cervical spine Electronically Signed: Jai Munoz MD at 5:25 EST Tel , Service support , CC: Rylee Gracia DO; Lauren SERNA Prebish Brass Sorter: Signed ABDOMEN SINGLE VIEW Observed: 08/07/2018 Status: F Source: [place] 12:19 PM [facility] REPOSITORY [facility] Imaging Services [address] [place] [address] Abdomen Single View MR#: [id number] Acct: [id number] Name: SUSANNE TORRES Rep #: [id number] : 1950 F 68 From: Yunior Arteaga PCP: Rylee Gracia DO Status: REG CLI Study: Abdomen Single View Date of Exam: 08/07/18 Exam# [id number] Ordering Dr: Gretta Luis MD STUDY: X-RAY [...] CC: Gretta Luis MD; Rylee Gracia DO Brass Sorter: Signed BRAIN W/WO CONTRAST Observed: 08/07/2018 Status: F Source: [place] 6:37 AM [facility] REPOSITORY [facility] Imaging Services [address] [place] [address] Brain W/WO Contrast MR#: [id number] Acct: [id number] Name: SUSANNE TORRES Rep #: [id number] : 1950 F 68 From: Radha Aguirre MD PCP: Rylee Gracia DO Status: REG CLI Study: Brain W/WO Contrast Date of Exam: 08/07/18 Exam# [id number] Ordering Dr: Rylee Gracia DO STUDY: MRI [...] Service support , CC: Rylee Gracia DO Brass Sorter: Signed KNEE 4 OR MORE Observed: 07/23/2018 Status: F Source: [facility] 9:29 AM [facility] REPOSITORY [facility] Imaging Services [address] [place] [address] Knee 4 or More Views MR#: [id number] Acct: [id number] Name: LUBASUSANNE Ivan Rep #: [id number] : 1950 F 68 From: Hector Cervantes MD PCP: Rylee Gracia DO Status: REG CLI Study: Knee 4 or More Views Date of Exam: 07/23/18 Exam# [id number] Ordering Dr: Lauren Topete STUDY: X-RAY - [...] CC: Rylee Gracia DO; Lauren SERNA Prebish Brass Sorter: Signed CBC W/DIFF, AUTOMATED Collected: 07/08/2018 Status: F Source: [place] 7:13 AM [facility] REPOSITORY Order Comment: DR. GRACIA WANTS THE [...] Lymph 1.49 Performed By: #### L100.0100 #### [facility] [address] [place], [place], [address] PROTEIN+CREATININE Collected: Status: F Source: [place] RATIO,URINE 07/08/2018 7:13 AM [facility] REPOSITORY Order Comment: DR. GRACIA WANTS THE [...] 79 RATIO Performed By: #### L501.0900 #### [facility] [address] [place], [address] VITAMIN D,25 HYDROXY Collected: 07/08/2018 Status: F Source: [place] 7:13 AM [facility] REPOSITORY Order Comment: DR. GRACIA WANTS THE [facility] CMP VITD TSH T3F CBCD T4F DR. [...] (>250 nmol/L) Performed By: #### L506.1000 #### [facility] [address] [place], [place], [address] PTHIN Collected: 07/08/2018 Status: F Source: [place] 7:13 [facility] Order Comment: DR. GRACIA WANTS THE [facility] VITD TSH T3F CBCD T4F DR. JOVON SANDOVAL THE VITD PROCRE CBCD PTH PHOS CMP TYPE CODE TESTS RESULT OUT OF RANGE REFERENCE UNITS LAB L509.1000 18.4-80.1 pg/mL Normal PTHIN 60.9 Performed By: #### L509.1000 #### [facility] [address] [place], [place], [address] COMPREHENSIVE METABOLIC Collected: 07/08/2018 Status: F Source: [facility] 7:13 AM [facility] REPOSITORY Order Comment: DR. GRACIA WANTS THE [facility] CMP VITD TSH T3F CBCD T4F DR. [...] GAP 9 Performed By: #### L500.4050, L501.2300, L501.15192, L501.9520, L506.0400 #### [facility] [address] [place], [address] PHOSPHORUS Collected: 07/08/2018 Status: F Source: [place] 7:13 AM [facility] REPOSITORY Order Comment: DR. GRACIA WANTS THE [facility] CMP VITD TSH T3F CBCD T4F DR. SIGALA WNATS THE VITD PROCRE CBCD PTH PHOS CMP TYPE CODE TESTS RESULT OUT OF RANGE REFERENCE UNITS LAB L501.2300 2.5-4.9 mg/dL Normal PHOS 3.2 Performed By: #### L500.4050, L501.2300, L501.01190, L501.9520, L506.0400 #### [facility] [address] [place], [address] FREE T3 Collected: 07/08/2018 Status: F Source: [place] 7:13 AM [facility] REPOSITORY Order Comment: DR. GRACIA WANTS THE [facility] CMP VITD TSH T3F CBCD T4F DR. JOVON SANDOVAL THE VITD PROCRE CBCD PTH PHOS CMP TYPE CODE TESTS RESULT OUT OF RANGE REFERENCE UNITS LAB L501.09314 2.18-3.98 pg/mL Normal FREE T3 2.4 Performed By: #### L500.4050, L501.2300, L501.45578, L501.9520, L506.0400 #### [facility] [address] [place], [address] THYROID STIM HORMONE Collected: 07/08/2018 Status: F Source: [place] (TSH) 7:13 AM [facility] REPOSITORY Order Comment: DR. GRACIA WANTS THE [facility] CMP VITD TSH T3F CBCD T4F DR. JOVON SANDOVAL THE VITD PROCRE CBCD PTH PHOS CMP TYPE CODE TESTS RESULT OUT OF RANGE REFERENCE UNITS LAB L501.9520 0.358-3.74 uIU/mL Normal TSH 3.04 Performed By: #### L500.4050, L501.2300, L501.86383, L501.9520, L506.0400 #### [facility] [address] [place], [address] T4 FREE DIRECT Collected: 07/08/2018 Status: F Source: [place] 7:13 AM [facility] REPOSITORY Order Comment: DR. GRACIA WANTS THE [facility] CMP VITD TSH T3F CBCD T4F DR. JOVON SANDOVAL THE VITD PROCRE CBCD PTH PHOS CMP TYPE CODE TESTS RESULT OUT OF RANGE REFERENCE UNITS LAB L506.0400 0.76-1.46 ng/dL Normal T4 FREE 1.05 DIRECT Performed By: #### L500.4050, L501.2300, L501.73381, L501.9520, L506.0400 #### [facility] [address] [place], [address] NMR LIPOPROFILE Collected: 07/08/2018 Status: F Source: [place] 7:13 AM [facility] REPOSITORY Order Comment: DR. GRACIA WANTS THE [...] developed and their performance characteristics determined by [employer]. These assays have not been cleared by [...] US Food and Drug Administration. Performed at: [facility] [address] [id number] Manager Hiv: Juwan Hendrix MD, Phone: [phone] Performed By: #### L3500.0000 #### [facility] (refer to report for specific site) refer to report for address and phone number CHEST PA AND LATERAL Observed: 07/07/2018 Status: F Source: [place] 11:42 AM [facility] REPOSITORY [facility] Imaging Services [address] [place] [address] Chest PA and Lateral MR#: [id number] Acct: [id number] Name: SUSANNE TORRES Rep #: [id number] : 1950 F 68 From: Hector Oliveira MD PCP: Rylee Gracia DO Status: REG CLI Study: Chest PA and Lateral Date of Exam: 07/07/18 Exam# [id number] Ordering Dr: Rylee Gracia DO STUDY: X-RAY [...] Service support , CC: Rylee Gracia DO Brass Sorter: Signed PT D/C SUMMARY (1) Observed: 03/20/2018 Status: F Source: [place] 9:32 AM [facility] REPOSITORY [facility] Therapy [facility] 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 Still avoid pulling weeds and heavy lifting [...] please feel free to call me at [phone]. Thank you for the referral of this patient. Sincerely, Mitch Leonard DPT, OC <Electronically signed by Mitch Leonard DPT, CÉSAR, CSCS> 03/20/18 0932 CC: Rylee Gracia DO EBG Signed RE-EVALUATION - PT (1) Observed: 03/04/2018 Status: F Source: [place] 9:39 AM [facility] REPOSITORY [facility] [address] [place] [address] Fax REEVALUATION / MEDICARE RECERTIFICATION PHYSICAL THERAPY MR#: [id number] Acct: [id number] Name: SUSANNE TORRES Rep #: [id number] : 1950 68 From: [place] Leonard DPT, CÉSAR, CSCS Referring Dr.: Rylee Gracia DO Status: REG RCR Insurance: MEDICARE PART A B [employer] Rylee Pangon, It has been my pleasure to treat SUSANNE TORRES over the last 7 visits for R shouldr pain. Please see the progress note below for an update on the physical therapy plan of care! Subjective: Out of the blue while I was sitting at [employer] my shldr just starting hurting worse. Reports the pain to be located in the front and under the shldr joint. Objective/Function: Review of postural maintainence so as to not exacerbate symptoms while sitting at [employer]. Pt states, I guess I wasn't really [...] do not hesitate to contact me at [phone] by phone or if you have questions or concerns regarding this new plan of care! Sincerely, [place] Leonard DPT, OC <Electronically signed by [place] Leonard DPT, CÉSAR, CSCS> 03/04/18 0939 CC: Rylee Gracia DO EBG Signed For Medicare only, by signing this I certify the plan of care. Physicians Signature Date INITAL EVALUATION (1) Observed: 02/19/2018 Status: F Source: [place] Castro PT 7:22 AM [facility] REPOSITORY [facility] [address] [place] [address]. [address] [place] [address] Fax REHABILITATION SERVICES INITIAL EVALUATION MR#: [id number] Acct: [id number] Name: SUSANNE TORRES Rep #: [id number] : 1950 68 From: [place] Leonard DPT, CÉSAR, CSCS Referring Dr.: Rylee Gracia DO Status: [...] to be FAXED BACK to us at [phone] for Medicare purposes. Please let me know if there are questions or concerns regarding this plan of care. Physician Signature: Date: <Electronically signed by [place] Leonard DPT, OCS, CSCS> 02/19/18 0722 CC: Rylee Gracia DO EBG Signed For Medicare only, by signing this I certify the plan of care. Physicians Signature Date SHOULDER MIN 2 VIEWS Observed: 02/13/2018 Status: F Source: [place] 12:23 PM [facility] REPOSITORY [facility] Imaging Services [address] [place] [address] Shoulder min 2 Views MR#: [id number] Acct: [id number] Name: SUSANNE TORRES Rep #: [id number] : 1950 F 68 From: Hector Oliveira MD PCP: Rylee Gracia DO Status: REG CLI Study: Shoulder min 2 Views Date of Exam: 02/13/18 Exam# [id number] Ordering Dr: Rylee Gracia DO STUDY: X-RAY [...] Service support , CC: Rylee Gracia DO Brass Sorter: Signed MISCELLANEOUS LAB Collected: 02/04/2018 Status: F Source: [place] PROCEDURE 11:08 AM [facility] REPOSITORY Order Comment: Comments: [id number] TRANGLUTAMINASE SER FZ Test(s) Ordered: [id number] TRANGLUTAMINASE SER FZ TYPE CODE TESTS RESULT OUT OF RANGE REFERENCE UNITS LAB L801.1541 Normal [facility] LAB TEST Result Comment: TEST RESULT LIMITS [...] the Transglutaminase IgM assay was validated by [facility]. The [place] FDA has not approved or cleared this test. The results of this assay can be used for clinical diagnosis without FDA approval. [facility]. is a CLIA certified, CAP accredited laboratory for performing high complexity assays such as this one. Tragl IgA < 1.2 U/mL 0.0 - 4.0 Reference Range Negative < 4.0 U/mL Weak Positive 4.0 - 10.0 U/mL Positive > 10.0 U/mL Comment TESTING PERFORMED AT [facility]. ORIGINAL REPORT ON FILE IN LAB CONTAINS ADDITIONAL TEST SITE INFORMATION. Performed By: #### L801.1541 #### [facility] [address] [facility] [facility] [place], [address] THYROID Observed: 02/04/2018 Status: F Source: [place] 7:54 AM [facility] REPOSITORY [facility] Imaging Services [address] [place] [address] Thyroid MR#: [id number] Acct: [id number] Name: SUSANNE TORRES Rep #: [id number] : 1950 F 68 From: Bayron Payan MD PCP: Rylee Gracia DO Status: REG CLI Study: Thyroid Date of Exam: 02/04/18 Exam# [id number] Ordering Dr: Rylee Gracia DO STUDY: THYROID [...] Bayron Payan MD at 10:35 EDT Tel [phone], Service support , CC: Rylee Gracia DO Brass Sorter: Signed CBC-COMPLETE BLOOD CNT Collected: 01/17/2018 Status: F Source: [place] NO DIFF 10:30 AM [facility] REPOSITORY TYPE CODE TESTS RESULT OUT OF [...] MPV 9.8 Performed By: #### L100.0500 #### [facility] [address] [place], [place], [address] THYROGLOBULIN ANTIBODY Collected: 01/17/2018 Status: F Source: [place] 10:30 AM [facility] REPOSITORY TYPE CODE TESTS RESULT OUT OF RANGE REFERENCE UNITS LAB L3300.7027 0.0-0.9 IU/mL High TG AB 1.1 Result Comment: Thyroglobulin Antibody measured by [employer] Performed at: [facility] [id number] Manager Hiv: Joaquim Barrett PhD, Phone: [phone] Performed By: #### L3300.7027, L3410.2710 #### [facility] (refer to report for specific site) refer to report for address and phone number ENDOMYSIAL ANTIBODY Collected: 01/17/2018 Status: F Source: [place] IGA 10:30 AM [facility] REPOSITORY TYPE CODE TESTS RESULT OUT OF REFERENCE UNITS RANGE LAB L3410.2710 Negative Normal ENDOMYSIAL IGA Negative Performed By: #### L3300.7027, L3410.2710 #### [facility] (refer to report for specific site) refer to report for address and phone number CBC-COMPLETE BLOOD CNT Collected: 01/08/2018 Status: F Source: [place] NO DIFF 7:23 AM [facility] REPOSITORY TYPE CODE TESTS RESULT OUT OF [...] MPV 9.5 Performed By: #### L100.0500 #### [facility] [address] [place], [address] MICROALB:CREAT Collected: 01/08/2018 Status: F Source: [place] RATIO,RANDOM UR 7:23 AM [facility] REPOSITORY TYPE CODE TESTS RESULT OUT OF RANGE REFERENCE UNITS LAB L501.1200 NO RANGE EST. mg/dL Normal UR CREAT 95.70 LAB L502.0500 NO RANGE EST. mg/L Normal 5.3 MICROALBUMIN ,UR LAB L502.0600 <30 mg/g CRE mg/g CRE Normal 5.6 MALB:CREAT Performed By: #### L502.0250 #### [facility] [address] [place], [address] VITAMIN D,25 HYDROXY Collected: 01/08/2018 Status: F Source: [place] 7:23 AM [facility] REPOSITORY TYPE CODE TESTS RESULT OUT OF RANGE REFERENCE UNITS LAB L506.1000 29.95-100.01 ng/mL Normal Vitamin D 34.7 25-OH Result Comment: Vitamin D 25(OH) Status Range Deficiency <20 ng/mL (50nmol/L) Insuffciency 20 - 30 ng/mL (50 - 75 nmol/L) Sufficiency 30 - 100 ng/mL (75 - 250 nmol/L) Toxicity >100 ng/mL (>250 nmol/L) Performed By: #### L506.1000 #### [facility] [address] [place], [address] PTHIN Collected: 01/08/2018 Status: F Source: [place] 7:23 AM [facility] REPOSITORY TYPE CODE TESTS RESULT OUT OF RANGE REFERENCE UNITS LAB L509.1000 18.4-80.1 pg/mL Normal PTHIN 78.4 Performed By: #### L509.1000 #### [facility] [address] [place], [address] RENAL PROFILE Collected: 01/08/2018 Status: F Source: [place] 7:23 AM [facility] REPOSITORY TYPE CODE TESTS RESULT OUT OF [...] 28.0 Performed By: #### L500.3600, L501.5200 #### [facility] [address] [place], [place], [address] MAGNESIUM Collected: 01/08/2018 Status: F Source: [place] 7:23 AM [facility] REPOSITORY TYPE CODE TESTS RESULT OUT OF RANGE REFERENCE UNITS LAB L501.5200 1.6-2.6 mg/dL Normal MG 2.3 Performed By: #### L500.3600, L501.5200 #### [facility] [address] [place], [address] PT D/C SUMMARY (1) Observed: 10/16/2017 Status: F Source: [place] 9:58 AM [facility] REPOSITORY [facility] Physical Therapy [address] [place] [address] Fax REHABILITATION SERVICES DISCHARGE SUMMARY MR#: [id number] Acct: [id number] Name: SUSANNE TORRES Rep #: [id number] : 1950 67 From: Martín Arteaga DPT [...] please feel free to call me at [phone]. Thank you for the referral of this patient. Sincerely, Martín Arteaga <Electronically signed by Martín Arteaga DPT> 10/16/17 0958 CC: Rylee Gracia DO CLS Signed URGENT CARE VISIT Observed: 10/12/2017 Status: F Source: [place] REPORT 10:20 AM [facility] [address] [place] [address] OFFICE VISIT Date of Service: 10/12/17 MR#: [id number] Acct: [id number] Name: SUSANNE TORRES Rep #: [id number] : 1950 Provider: Lillian Myers Age/Sex: 67/F Location[place] [facility] Status: Signed Intake Vital Signs10/12/17 Height 5 [...] General: cooperative, no acute distress, well developed [facility] Head: normal to inspection, atraumatic Ears: [...] any improvement 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 Medications New: Coding Level of Care Code Off vis,est,level 4 Diagnoses Cellulitis of other specified site L03.818 Site of cellulitis: other site 10/12/17 1020 <Electronically signed by Lillian FLORES> Date Lillian FLORES Cosigner Signature: Date (if applicable) CC: PT COMMUNICATION Observed: 09/24/2017 Status: F Source: [place] 9:26 AM [facility] REPOSITORY [facility] [address] [place] [address] Fax REHABILITATION SERVICES PROGRESS NOTE MR#: [id number] Acct: [id number] Name: SUSANNE TORRES Rep #: [id number] : 1950 67 From: Tatiana JOHNSTON Referring [...] Information 09/24/17 0926 <Electronically signed by Tatiana JOHNSTON> Date Tatiana JOHNSTON Cosigner Signature (if applicable): Date CC: Rylee Gracia DO Signed For Medicare only, by signing this I certify the plan of care. Physicians Signature Date INITAL EVALUATION (1) Observed: 09/18/2017 Status: F Source: [place] - PT 7:10 PM [facility] REPOSITORY [facility] [address] [place] [address] Fax REHABILITATION SERVICES INITIAL EVALUATION MR#: [id number] Acct: [id number] Name: SUSANNE TORRES Rep #: [id number] : 1950 67 From: Martín Arteaga DPT Referring Dr.: Rylee Gracia DO Status: REG RCR Insurance: MEDICARE PART A B [employer] Patient's Visit Information SUSANNE TORRES is a 67 year old F referred to Physical Therapy by Rylee Gracia DR.KFKRISTINE with a diagnosis of . Date [...] Response: No effect Lumbar Standing: Right Side [place] - Symptoms During Testing: No effect Lumbar Standing: Right Side [place] - Symptoms After Testing: No effect Lumbar Standing: Left Side [place] - Mechanical Response: No effect Lumbar Standing: Left Side [place] - Symptoms During Testing: No effect Lumbar Standing: Left Side [place] - Symptoms After Testing: No effect - [...] to be FAXED BACK to us at [phone] for Medicare purposes. Please let me know if there are questions or concerns regarding this plan of care. Physician Signature: Date: <Electronically signed by Martín Arteaga DPT> 09/18/17 1910 CC: Rylee Gracia CLS Signed For Medicare only, by signing this I certify the plan of care. Physicians Signature Date ALLERGIES ALLERGIES DATE TYPE / CODE NAME / CODE REACTION SEVERITY SOURCE 10/12/2017 Drug Sulfa Rash Unknown [place] [facility] Allergy/4160 (Sulfonamide Hospital 85409(SNOMED Antibiotics)/ Repository CT) [id number](RX NORM) ENCOUNTERS ENCOUNTERS ADMIT/DISCHARGE ACCOUNT ADMITTING ENCOUNTER LOCATION SOURCE NUMBER CLASS 08/14/2018 [id number] Ambulatory [place] Kel 0 [facility] Hospital ing:HPRAD Repository 08/07/2018 [id number] Ambulatory [place] Kel 9 [facility] ing:MRI Repository 08/04/2018 [id number] Ambulatory Building:[facility] [place] Practices Repository 07/23/2018 [id number] Ambulatory [place] Kel 7 [facility] ing:HPRAD Repository 07/08/2018 [id number] Ambulatory [place] Kel 9 [facility] Hospital ing:LAB Repository 07/07/2018 [id number] Ambulatory [place] Kel 1 [facility] Hospital ing:HPRAD Repository 07/07/2018 [id number] Ambulatory [place] 7 [facility] Hospital ing:RAD.FUTUR Repository E 03/19/2018/ [id number] Ambulatory [place] 8 1 [facility] Hospital ing:PT Repository 02/13/2018 [id number] Ambulatory [place] Kel 3 [facility] Hospital ing:RAD.FUTUR Repository E 02/04/2018 [id number] Ambulatory [place] 8 [facility] Hospital ing:US Repository 01/17/2018 [id number] Ambulatory [place] 6 [facility] Hospital ing:LAB Repository 01/08/2018 [id number] Ambulatory [place] 6 [facility] ing:LAB Repository 10/12/2017/ [id number] [facility] 10/11/2017/ [id number] Ambulatory [place] Kel 8 5 [facility] ing:PT Repository PAYERS PAYERS ENCOUNTER GUARANTOR PAYER SUBSCRIBER SOURCE 08/14/2018 SUSANNE Lvoe Primary SUSANNE Love Kel [id number] E Insurance:MED[place]ARE [place]: Community MISAEL PART A BPolicy Number: [id number] [id number] Repository [address]Ddx: 330) Date:2018-08-146515 () 08/14/2018 Secondary SUSANNE Love [place] Insurance:HUMANA [place]OB: [facility] [id number] Hospital Number: Repository [id number] Date:5567-15-26ZB [address] [address]ZC: 08/14/2018 Tertiary NOT GIVENUNK Kel Insurance[facility]LF [facility] Hospital Number: Effective Repository Date:2018-08-14 08/07/2018 RAY Phillips Primary SUSANNE Love Kel [id number] E Insurance:MEDICARE [place]: Community MISAEL PART A BPolicy Number: [id number], [place] [id number] Repository [address]Qqc: 330) Date:2018-08-045829 (HP) 08/07/2018 Secondary SUSANNE Love [place] Insurance:HUMANA [place]OB: [facility] [id number] Hospital Number: Repository [id number] Date:4133-76-38CH [address] [place] [address]RA: 08/07/2018 Tertiary NOT GIVENUNK Kel Insurance:SELF PAY [facility] Number: Effective Repository Date:2018-08-04 08/04/2018 Susanne C Primary Susanne Love [place] Practices [place]: Insurance:MedicarePol [place]DOB: Repository [id number] E Number: [id number] Misael [id number] Jacqueline Liu, [place] Date:8164-80-44Nkdf GeovanyotonielSTARKWE[place], [place] [address]Agi: (330) Name:[facility] [address]Iyd: 044865Zwbirjnl, [place] 2343163 (HP) (HP)Tel: [phone]: ([phone] 08/04/2018 Secondary Susanne OHIP Practices Insurance:Humana[facility] [place]OB: Repository [facility] [id number] Number: Jacqueline Hawkins [id number] [place], [place] Date:1881-68-39Ragb [address]Goi: (330) Name:[facility] [phone] (HP) [address] [place] [address]LU: 08/04/2018 Tertiary [place] Practices Insurance:Medical [place]: Repository [facility] [id number] Number: Jacqueline Hawkins [id number] [place], [place] Date: 5783-38-24Hyie [address]Scr: (330) Name:[facility] [phone] (HP) [address] [place] [id number]: 08/04/2018 Tertiary [place] OHIP Practices Insurance:Medical [place]OB: Repository [facility] [id number] Number: Jacqueline Hawkins [id number] [place], [place] Date:2011-07-22 10173Cib: 330 [id number] [phone] (HP) Name:[address] [id number]: 08/04/2018 Tertiary [facility] OHIP Practices Insurance:Medical [place]OB: Repository [facility] [id number] Number: Jacqueline Hawkins [id number] [place], [place] Date: - 1502-96-73Wltu [address]Tuo: (330) Name:[facility] [phone] () [place], [place] [id number]: 07/23/2018 RAY E Primary SUSANNE Begum [id number] E Insurance:MEDICARE [place]OB: Community MISAEL PART A BPolicy Number: [id number], [place] [id number] Repository [address]Bwp: (330) Date:2018-07-23 [phone] (HP) 07/23/2018 Secondary SUSANNE Begum Insurance:HUMANA [place]OB: [facility] [id number] Hospital Number: Repository [id number] Date:5775-13-28OO [address] [address]HA: 07/23/2018 Tertiary NOT GIVENUNK Kel Insurance:SELF PAY [facility] Number: Effective Repository Date:2018-07-23 07/08/2018 RAY Jacqueline Primary SUSANNE Love Kel [id number] E Insurance:MEDICARE [place]OB: Community MISAEL PART A BPolicy Number: [id number] [place], [place] [id number] Repository [address]Riq: 330) Date:2018-07-08 [phone] () 07/08/2018 Secondary SUSANNE Love [place] Insurance:HUMANA [place]DOB: [facility] [id number] Hospital Number: Repository [id number] Date:0169-04-16TM [address] [place] [address]BK: 07/08/2018 Tertiary NOT GIVENUNK Kel Insurance:SELF PAY [facility] Number: Effective Repository Date:2018-07-08 07/07/2018 RAY Jacqueline Primary SUSANNE Love [place] [id number] E Insurance:MEDICARE [place]OB: Community MISAEL PART A BPolicy Number: [id number] [place], [place] [id number] Repository [address]Adz: (794) Date:2018-07-07 [phone] () 07/07/2018 Secondary SUSANNE Love [place] Insurance:HUMANA [place]OB: Community COMMERCIALPolicy [id number] Hospital Number: Repository [id number] Date:6031-38-48NO [address] [address]BF: 07/07/2018 Tertiary NOT GIVENUNK [place] Insurance:SELF PAY [facility] Hospital Number: Effective Repository Date:2018-07-07 07/07/2018 RAY Phillips Primary SUSANNE Love [place] [id number] E Insurance:MEDICARE [place]OB: Community MISAEL PART A BPolicy Number: [id number] [place], [place] [id number] Repository [address]Fmh: 330) Date:2018-07-07 [phone] () 07/07/2018 Secondary SUSANNE C Kel Insurance:HUMANA [place]OB: [facility] [id number] Hospital Number: Repository [id number] Date:9931-62-59WL[address] [address]YL: 07/07/2018 Tertiary NOT GIVENUNK Kel Insurance:SELF PAY [facility] Hospital Number: Effective Repository Date:2018-07-07 03/19/2018 RAY Phillips Primary SUSANNE Love Kel [id number] E Insurance:MEDICARE [place]OB: Community MISAEL PART A BPolicy Number: [id number] City, [place] [id number] Repository [address]Hab: 330) Date:2014-01-19 [phone] (HP) 03/19/2018 Secondary SUSANNE C [place] Insurance:HUMANA [place]DOB: [facility] [id number] Hospital Number: Repository [id number] Date:0582-23-52XM [address] [address]MG: 03/19/2018 Tertiary NOT GIVENUNK Kel Insurance:[facility]LF [facility]Y [facility] Hospital Number: Effective Repository Date:2018-02-13 02/13/2018 RAY Phillips Primary SUSANNE [place]oster [id number] E Insurance:MEDICARE [place]OB: Community MISAEL PART A BPolicy Number: [id number] City, [place] [id number] Repository [address]Elf: (559) Date:2018-02-13 [phone] () 02/13/2018 Secondary SUSANNE Love [place] Insurance:HUMANA [place]OB: [facility] [id number] Hospital Number: Repository [id number] Date:3600-80-74MT [address] [place] [address]BO: 02/13/2018 Tertiary NOT GIVENUNK Kel Insurance:SELF PAY [facility] Number: Effective Repository Date:2018-02-13 02/04/2018 RAY Phlilips Primary SUSANNE Love Kel [id number] E Insurance:MEDICARE [place]OB: Community MISAEL PART A BPolicy Number: [id number] City, [place] [id number] Repository [address]Vmi: 330) Date:2018-01-310741 () 02/04/2018 Secondary SUSANNE Love [place] Insurance:HUMANA [place]DOB: [facility] [id number] Hospital Number: Repository [id number] Date:5228-46-34CZ[address] [address]UM: 02/04/2018 Tertiary NOT GIVENUNK [place] Insurance:[facility]LF [facility]Y [facility] Hospital Number: Effective Repository Date:2018-01-31 01/17/2018 RAY E Primary SUSANNE Love Kel [id number] E Insurance:MEDICARE [place]OB: Community MISAEL PART A BPolicy Number: [id number] [place], [place] [id number] Repository [address]Huu: 330) Date:2018-01-17 [phone] () 01/17/2018 Secondary SUSANNE Ivan [place] Insurance:HUMANA [place]DOB: [facility] [id number] Hospital Number: Repository [id number] Date:3385-76-58BT [address] [place] [address]AN: 01/17/2018 Tertiary NOT GIVENUNK Kel Insurance:SELF PAY [facility] Number: Effective Repository Date:2018-01-17 01/08/2018 RAY Phillips Primary SUSANNE Begum [id number] E Insurance:MEDICARE [place]OB: Community MISAEL PART A BPolicy Number: [id number] City, [place] [id number] Repository [address]Cid: (330) Date:2018-01-08 [phone] (HP) 01/08/2018 Secondary SUSANNE Love [place] Insurance:HUMANA [place]DOB: [facility] [id number] Hospital Number: Repository [id number] Date:5407-22-85[address] [place] [address]RN: 01/08/2018 Tertiary NOT GIVENUNK [place] Insurance:SELF PAY [facility] Number: Effective Repository Date:2018-01-08 10/12/2017 RAY E Primary SUSANNE Love Kel [id number] E Insurance:MEDICARE [place]OB: Community MISAEL PART A BPolicy Number: [id number] [place], [place] [id number] Repository [address]Hph: Date:2017-10-12 ~33 0-2 (HP) 10/12/2017 Secondary SUSANNE Loev [place] Insurance:HUMANA [place]DOB: [facility] [id number] Hospital Number: Repository [id number] Date:5022-60-79WJ [address] [place] [address]RM: 10/12/2017 Tertiary NOT GIVENUNK Kel Insurance:SELF PAY [facility] Number: Effective Repository Date:2017-10-12 10/11/2017 RAY E Primary SUSANNE Love Kel [id number] E Insurance:MEDICARE [place]OB: Community MISAEL PART A BPolicy Number: [id number] [place], [place] [id number] Repository [address]Noq: Date:2014-01-19 ~33 0-2 (HP) 10/11/2017 Secondary SUSANNE Begum Insurance:RONI JEANB: Community COMMERCIALPolicy [id number] Hospital Number: Repository [id number] Date:9561-49-29[address] [address]REBQTDEMI, [place] [address]KI: 10/11/2017 Tertiary NOT GIVENUNK Kel Insurance:SELF PAY [facility] Number: Effective Repository Date:2017-09-16
== END ==
PROVIDERS: Family Provider Internal Medicine; PCP Internal Medicine; Referring Provider Urology; Visit Provider Urology
DX: R26.9 Unspecified abnormalities of gait and mobility (principal); N20.0 Calculus of kidney
CPT/HCPCS: 70553; 74018; A9585

== ENCOUNTER → 2018-08-14 13:55 | Outpatient (CLI) | payer MEDICARE, OTHER, SELFPAY ==
--- NOTE | 2018-08-14 14:22 | RAD_ITS ---
STUDY: X-RAY - CERVICAL SPINE REASON FOR EXAM: Female, 68 years old. Pain TECHNIQUE: 5 view(s) of the cervical spine were obtained. COMPARISON: None FINDINGS: There is normal alignment and curvature of the cervical spine with no acute fractures or dislocations bowel with degenerative changes C4-C5, C5-C6 and C6-C7 disc spaces. The prevertebral soft tissues are normal. The intervertebral foramina are patent bilaterally. RAD/Cerv Spine 4 or 5 Views IMPRESSION: No fractures. Multilevel degenerative changes of the cervical spine Electronically Signed: Jai Munoz MD at 5:25 EST Tel , Service support ,
== END ==
PROVIDERS: Family Provider Internal Medicine; PCP Internal Medicine; Referring Provider Nurse Practitioner Family; Visit Provider Nurse Practitioner Family
DX: M54.12 Radiculopathy, cervical region (principal); M47.812 Spondylosis without myelopathy or radiculopathy, cervical region; M50.30 Other cervical disc degeneration, unspecified cervical region; M48.02 Spinal stenosis, cervical region; M48.9 Spondylopathy, unspecified
CPT/HCPCS: 72050

== ENCOUNTER 2018-08-20 06:22 | Day surgery (SDC) | payer MEDICARE, OTHER, SELFPAY ==
[2018-08-20 06:45] VITALS: BP 111/81; PULSE 91; RESP 18; TEMP 36.6; O2SAT 98; BMI 29.7
[2018-08-20] MEDS: Cefazolin 2 GM in 0.9% Normal Saline 100 ML IV (08:08)
--- NOTE | 2018-08-20 08:44 | DCINST_ITS ---
Discharge Diet: No Restrictions Discharge Activity: May not drive while taking narcotic pain medications. May resume sexual activity in: No Restrictions Call your doctor if you observe: Fever of 101 or Higher, Inability to urinate, Calf discomfort, Uncontrolled pain Allergies/Adverse Reactions: Allergies oxycodone [From Percocet] Allergy (Verified 08/15/18 14:17) Rash Sulfa (Sulfonamide Antibiotics) Allergy (Verified 08/15/18 14:17) Rash Medications to take at Discharge Bupropion HCl [Bupropion Xl] 150 mg PO BID 12/30/14 traZODone [Desyrel] 100 mg PO QHS 12/30/14 Aspirin [Kelvin Advanced] 500 mg PO DAILY 08/15/18 Aspirin/Calcium Carbonate [Kelvin Women's Aspirin Tablet] 1 each PO DAILY 08/15/18 Bifidobacterium Infantis [Align] 4 mg PO DAILY 08/15/18 Citalopram [Celexa] 10 mg PO DAILY 08/15/18 DiphenhydrAMINE [Benadryl] 25 mg PO QHS 08/15/18 Lubiprostone [Amitiza] 24 mcg PO PRN PRN 08/15/18 Melatonin 10 mg PO QHS 08/15/18 Primary Care Physician: Rylee Bales DO [Primary Care Provider] - Test Results: Test results from this visit will be discussed in further detail at your follow- up appointment, if applicable. Please Follow Up With: Gretta Luis MD When: 2-3 weeks with HARMONY, call office for appt and KUB order. Proposed Discharge Date: 08/20/18
--- NOTE | 2018-08-20 08:44 | PCM.OPRPT ---
Problem List (1) Renal calculus, left Status: Acute Report of Operation Date of Procedure: 08/20/18 Pre-Operative Diagnosis: left renal calculi Post-Operative Diagnosis: same Surgery/Procedure Performed:: left renal extracorporeal shockwave lithotripsy Description of Surgical Findings:: stones well fragmented Type of Anesthesia:: General Specimen's removed: none Description of Procedure: The patient is a 68-year-old female found to have 2 left renal calculi approximately 5-6 mm in size each. After discussing all the risks benefits and alternatives, the patient agreed to proceed with extracorporal shockwave lithotripsy for definitive treatment. Patient was taken to the operating room and placed in a supine position on the operating room table. Anesthesia monitored the head, neck, airway, IV access, vital signs throughout the case. Once anesthesia was appropriately administered, the patient was aligned with the lithotripter. Her stones were easily identified. 3000 shocks were applied and the stones appeared to be well fragmented at the conclusion of the case. There were no complications during this procedure. Taken to the PACU in good condition. - Complications none - Admit VTE Documentation VTE Present on Admission: Yes VTE Mechan Device Prophylaxis: SCD's, None VTE Pharm Prophylaxis ordered?: No Reason prophylaxis not ordered:: Treatment Not Indicated
[2018-08-20 09:11] VITALS: BP 111/81; BP 123/53; PULSE 70; RESP 16; TEMP 36.9; O2SAT 95
[2018-08-20 09:15] VITALS: BP 108/59; BP 111/81; PULSE 71; RESP 16; O2SAT 93
[2018-08-20 09:30] VITALS: BP 111/81; BP 117/58; PULSE 76; RESP 16; O2SAT 96
[2018-08-20 09:34] VITALS: BP 108/62; BP 111/81; PULSE 67; RESP 16; TEMP 36.4; O2SAT 94
[2018-08-20 10:19] VITALS: BP 111/81; BP 124/76; PULSE 70; RESP 18; TEMP 36.6; O2SAT 99
== END 2018-08-20 10:20 | disposition home or self-care (01) ==
LOC: SDC 06:23 → AC 06:24
PROVIDERS: Family Provider Internal Medicine; PCP Internal Medicine; Referring Provider Urology; Visit Provider Urology
PROC: (CPT 50590; principal; 2018-08-20 07:50)
DX: N20.0 Calculus of kidney (principal); N39.41 Urge incontinence; N39.0 Urinary tract infection, site not specified; R30.0 Dysuria; K58.9 Irritable bowel syndrome, unspecified; K21.9 Gastro-esophageal reflux disease without esophagitis; F32.9 Major depressive disorder, single episode, unspecified; F41.9 Anxiety disorder, unspecified; Z78.0 Asymptomatic menopausal state; Z79.82 Long term (current) use of aspirin; Z79.899 Other long term (current) drug therapy; Z88.2 Allergy status to sulfonamides; Z87.19 Personal history of other diseases of the digestive system; Z87.891 Personal history of nicotine dependence
CPT/HCPCS: 50590; J7120; J2405

== ENCOUNTER → 2018-08-29 08:35 | Outpatient (CLI) | payer MEDICARE, OTHER, SELFPAY ==
[2018-08-20 06:45] VITALS: BMI 29.7
--- NOTE | 2018-08-29 08:38 | RAD_ITS ---
STUDY: X-RAY - ABDOMEN/PELVIS REASON FOR EXAM: Female, 68 years old. Abdominal pain TECHNIQUE: Single AP view of the abdomen / pelvis. COMPARISON: 08/07/2018 FINDINGS: There are surgical clips in the left hemipelvis. There is an unremarkable bowel gas pattern. Fecal residue of the right colon noted but overall decreased stool burden since prior study. There is no demonstrated free abdominal air. The visualized liver, spleen and kidneys are grossly normal in size and morphology. Normal soft tissue structures. There are diffuse degenerative changes of the visualized lumbar spine. RAD/Abdomen Single View IMPRESSION: Nonobstructive bowel gas pattern. Electronically Signed: Alex Singleton MD at 22:01 EST , Service support ,
== END ==
PROVIDERS: Family Provider Internal Medicine; PCP Internal Medicine; Referring Provider Urology; Visit Provider Urology
DX: N20.0 Calculus of kidney (principal)
CPT/HCPCS: 74018

== ENCOUNTER → 2018-09-04 07:03 | Outpatient (CLI) | payer MEDICARE, OTHER, SELFPAY ==
[2018-08-20 06:45] VITALS: BMI 29.7
--- NOTE | 2018-09-04 07:07 | BI_ITS ---
MAMMOGRAPHY - BILATERAL SCREENING REASON FOR EXAM: Female, 68 years old. Routine annual screening examination. PERTINENT HISTORY: Non-contributory. TECHNIQUE: Digital bilateral breast shelby (3D mammographic acquisition) in the CC and MLO projections. 2-D mediolateral oblique (MLO) and craniocaudad (CC) views of both breasts were obtained. CAD: Full Field Digital Mammography with Computer Added Detection was performed. COMPARISON: Comparison is made with prior study dated July 25, 2017 and July 24, 2016. FINDINGS: Breast Composition: There are scattered areas of fibroglandular density. There are no dominant masses or suspicious calcifications. No other significant abnormalities are identified. There has been no significant change since the prior study. BI/SCREENING MAMM (CAD), BILAT IMPRESSION: Stable bilateral screening mammogram. Yearly follow-up mammogram recommended. (A) ASSESSMENT CATEGORY: BIRADS Category 1: Negative. A letter regarding these results will be sent to the patient by the facility within 30 days. Approximately 10% of breast cancers are not detected by mammography. A normal mammogram should not delay biopsy of a clinically suspicious abnormality. [id number] Electronically Signed: Bayron Payan MD at 10:07 EST , Service support ,
== END ==
PROVIDERS: Family Provider Internal Medicine; PCP Internal Medicine; Referring Provider Internal Medicine; Visit Provider Internal Medicine
DX: Z12.31 Encounter for screening mammogram for malignant neoplasm of breast (principal); R26.9 Unspecified abnormalities of gait and mobility
CPT/HCPCS: 77063; 77067

== ENCOUNTER → 2018-10-03 09:18 | Outpatient (CLI) | payer MEDICARE, OTHER, SELFPAY ==
--- NOTE | 2018-10-03 09:29 | MRI_ITS ---
STUDY: MRI LUMBAR SPINE WITHOUT CONTRAST REASON FOR EXAM: Female, 68 years old. Right leg weakness TECHNIQUE: Standardized fat and water weighted pulse sequences were obtained in the sagittal and axial planes. COMPARISON: Lumbar spine radiograph 11/01/[address] abdomen and pelvis FINDINGS: T12-L1: Normal endplates. Normal disc height, hydration and morphology. Normal bilateral facet joints. Normal central canal and bilateral lateral recesses. Normal bilateral intervertebral neural foramina. Normal lumbar lordosis. There is no substantial scoliosis. Normal conus medullaris that terminates at the L2 L1-2: Normal endplates. There is mild annular disc bulge. No central canal narrowing. Normal bilateral intervertebral neural foramina. L2-3: Normal endplates. Mild annular disc bulge, mild bilateral facet arthrosis. No central canal narrowing.. Mild left foraminal narrowing. L3-4: Normal endplates. Normal disc height, hydration and morphology. Mild bilateral facet arthrosis. Normal central canal and bilateral lateral recesses. Normal bilateral intervertebral neural foramina. L4-5: Normal endplates. Mild annular disc bulge and marked ligamentum flavum hypertrophy. There is marked bilateral facet arthrosis. Moderate central canal narrowing. Mild bilateral foraminal narrowing. L5-S1: There are chronic bilateral L5 pars interarticularis fractures. There is a synovial cyst adjacent to the right posterior facets. There is grade 1 anterolisthesis of L5 on S1. Normal endplates. There is moderate disc space narrowing. There is annular disc bulge and mild bilateral facet arthrosis. Mild ligamentum flavum hypertrophy. No central canal narrowing. Mild right foraminal narrowing. Normal visualized sacral ala. Normal visualized paraspinous soft tissue structures. MRI/Spine Lumbar (Routine) IMPRESSION: Multilevel degenerative disc disease is most prominent at L4-L5 and L5-S1 as described above. There are chronic bilateral L5 pars interarticularis fractures with grade 1 anterolisthesis of L5 on S1. Remaining chronic findings are described above. Electronically Signed: Breanne Frausto, at 16:14 EDT Tel , Service support ,
[2018-10-03 12:02] LABS: Rheumatoid Factor < 10.0 IU/mL (<15)
[2018-10-06 14:32] LABS: Anti-Centromere B Ab <0.2 AI (0.0-0.9); Anti-Chromatin <0.2 AI (0.0-0.9); Anti-Jo <0.2 AI (0.0-0.9); Anti-Scleroderma-70 AB <0.2 AI (0.0-0.9); Anti-ribosomal P Antibodies <0.2 AI (0.0-0.9); Complement C3 99 mg/dL (82-167); Dilute Prothrombin Time (dPT) 36.5 sec (0.0-55.0); Dilute Russell Viper Venom 27.2 sec (0.0-47.0); Immunoglobulin M 49 mg/dL (26-217); PTT-LA 33.2 sec (0.0-51.9); RNP Ab 0.6 AI (0.0-0.9); SJOGREN'S Anti-SS-A test < 0.2 AI (0.0-0.9); SJOGREN'S Anti-SS-B test < 0.2 AI (0.0-0.9); Smith Ab <0.2 AI (0.0-0.9); Smith/RNP Ab <0.2 AI (0.0-0.9); Thrombin Time 20.6 sec (0.0-23.0); dPT Confirm Ratio 0.93 Ratio (0.00-1.40)
[2018-10-06 14:37] LABS: Anti-Mitochondrial AB 96.3 Units (0.0-20.0); Anti-dsDNA Ab 1 IU/mL (0-9)
[2018-10-06 14:39] LABS: Anti-Cardiolipin Ab, IgA, Qn < 9 APL U/mL (0-11); Anti-Cardiolipin Ab, IgG, Qn < 9 GPL U/mL (0-14); Anti-Cardiolipin Ab, IgM, Qn < 9 MPL U/mL (0-12); Anti-Smooth Muscle ABS 9 Units (0-19); Interpretation Comment: (.); Thyroid Peroxidase AB 13 IU/mL (0-34)
== END ==
PROVIDERS: Family Provider Internal Medicine; PCP Internal Medicine; Referring Provider Psychiatry & Neurology Neurology; Visit Provider Psychiatry & Neurology Neurology
DX: M32.9 Systemic lupus erythematosus, unspecified (principal); M51.36 Other intervertebral disc degeneration, lumbar region; R53.1 Weakness
CPT/HCPCS: 36415; 72148; 82784; 83516; 86038; 86147; 86160; 86225; 86235; 86376; 86431

== ENCOUNTER 2018-10-10 08:00 | Outpatient (RCR) | payer MEDICARE, OTHER, SELFPAY ==
--- NOTE | 2018-09-30 13:37 | HP.PTEVAL ---
Patient's Visit Information MANSOOR VERDUZCO is a 68 year old F referred to Physical Therapy by Spencer Clifton MD with a diagnosis of R BPPV. Date of Evaluation: 09/30/18 Physical Therapist: Mitch Leonard, DPT, OCS, CSCS - Visit Plan Frequency: 1-2x /Week Duration: 4-6 Weeks Plan: 1-2x/week for 4-6 weeks as needed for psoitional treatments and ex, balance moniotr and treat and other vestibular interventions if needed. Next session: check positional and balance , may need oculomotor check/msq - Subjective Findings: Was here last year due to dragging R leg and imbalance. Did therapy for balance. Fell down some more and sent to neurologist. Found vertigo in R ear and weak R leg. Having an MRI to check L3 otherwise it froma ministroke sometime in 2007. Falling down and running into things is worsening. Had eye testing [facility] to confirm BPPV accoring to script. Does not have a lot of dizzyness but feels loss of balance/unsteady. Feel [place] outside of store catching R foot on curb. Unsteady feeling comes and goes. Worse getting up out of bed. Rolling in bed can be worse, lying down not bad. Looking up can be bad. That means she loses balance but no spinning. Even sitting looking up can make her unsteady. Sleep is not great due to shoulder problem. 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 Spends day reading and with dog, housework. Limited washing baseboard today as she got up and lost balance. Can't do as much as I used to. Working on balance last year helped a lltitle. Basic ADLs are OK but has to be careful. Thsi has been going on a long time and worsening. - Objective c/s AROm WFL and withotu pain today. Posture is forward head anterior scap. -B hallpike esau. dizzy with roll test R>L, dissipates as treat with BBQ roll ending L and to tummy. Walked out of PT I and safe. - Balance Scores Functional Gait Assessment Score: 24 % Disability: 20.0000 CATSIB Score (Max score 120 seconds): 64 - Goals Goal 1:: Abolish dizzy feeling with postiional testing and feel 90% better dizzyness/unsteadiness overall. Goal Time Frame: 4-6 Weeks Goal 2:: Pt score 26/30 FGA to normalize balance and minimize fall risk. Goal Time Frame: 4-6 Weeks Goal 3:: Normal speed on housewrok and life movements subjectively. Goal Time Frame: 4-6 Weeks - Rehabilitation Potential Physical Therapy Diagnosis: Possible BPPV, maybe horizontal canal although no nystagmus to my naked eye. Rehabilitation Potential: Fair - Anticipated Interventions Patient/Client Instruction: Educate patient on: Condition, Plan of Care For the Purpose of:: To increase tolerance to activity/condition/position, To improve ability of physical actions for home/community/work/leisure Comment: adaptationa dn vestibular treatments and ex For the Purpose of:: To increase tolerance to activity/condition/position, To improve ability of physical actions for home/community/work/leisure Thank you for the opportunity to evaluate your patient. For Medicare and Medicare HMO plans, please review the plan of care and approve it. It will need to be FAXED BACK to us at [phone] for Medicare purposes. For Medicare only, by signing this I certify the plan of care. Please let me know if there are questions or concerns regarding this plan of care. Physician Signature: Date:
--- NOTE | 2018-10-10 08:12 | HP.PTDCSUM ---
HP - PT D/C Summary It has been my pleasure to treat MANSOOR VERDUZCO under orders from Spencer Clifton MD, for the diagnosis of R BPPV for a total of 3 visit(s). Discharge Date: 10/10/18 Please see the following information for a summary of their discharge status. - Subjective Subjective: its gone and I am cured. No dizzyness, not unsteady. Has hole in eardrum on L side says ENT and will be treated for that. Been good since last session. Best week in a few years. - Overall Improvement % Improvement: 100 - Objective Objective/Function: - B hallpike. - roll test. No dizzyness with FGA or head up from knees today. PT REMARKABLY BETTER AND SEEMINGLY HAD POSITIONAL VERTIGO. DOING WELL. - Goals Goal 1:: Abolish dizzy feeling with postiional testing and feel 90% better dizzyness/unsteadiness overall. Goal Progress: Goal Met Goal 2:: Pt score 26/30 FGA to normalize balance and minimize fall risk. Goal Progress: Goal Met Goal 3:: Normal speed on housewrok and life movements subjectively. Goal Progress: Goal Met - Plan Plan: D/C - D/C Information Discharge Comments: PT DOING WELL RESPONDING TO POSITIONAL TREATMENT. [place] LCONTACT DOCTOR IF DIZZYNESS RETURNS. If there are questions or concerns regarding this patient's physical therapy, please feel free to call me at [phone]. Thank you for the referral of this patient. Sincerely, Mitch Leonard, DPT, OCS, CSCS
== END 2018-10-10 19:00 | disposition home or self-care (01) ==
LOC: PT 08:00
PROVIDERS: Family Provider Internal Medicine; PCP Internal Medicine; Referring Provider Psychiatry & Neurology Neurology; Visit Provider Psychiatry & Neurology Neurology
DX: H81.11 Benign paroxysmal vertigo, right ear (principal)
CPT/HCPCS: 97161; 97530

== ENCOUNTER → 2018-12-16 08:47 | Outpatient (CLI) | payer MEDICARE, OTHER, SELFPAY ==
--- NOTE | 2018-12-16 08:52 | BD_ITS ---
STUDY: DUAL ENERGY X-RAY ABSORPTIOMETRY / DXA REASON FOR EXAM: Female, 68 years old. The patient is postmenopausal. Loss of height. TECHNIQUE: Bone Mineral Density (BMD) measurements of lumbar spine and bilateral hips were obtained. COMPARISON: Comparison is made with prior examination dated July 17, 2016. FINDINGS: Lumbar Spine (L1-L4): g/cm2 (0.01) / T-score (-3.2) / Z-score (-1.5) Findings are suggestive of osteoporosis with a high fracture risk. Left Femur Total: g/cm2 (0.753) / T-score (-2.0) / Z-score (-0.6) Left Femoral Neck: g/cm2 (0.757) / T-score (-2.0) / Z-score (-0.3) Right Femur Total: g/cm2 (0.730) / T-score (-2.2) / Z-score (-0.8) Right Femoral Neck: g/cm2 (0.783) / T-score (-1.8) / Z-score (-0.2) The T-Scores on the most recent prior examination were: Lumbar Spine (L1-L4): There has been worsening of bone density since the previous examination. Left Femur Total: which represents a worsening of 7.6%. Right Femur Total: which represents a worsening of 8.1%. BD/Dexa Bone Density Study IMPRESSION: The patient is considered osteoporotic as outlined below according to World Nayan Organization (WHO) criteria with a high fracture risk. There has been worsening of bone density since the previous examination. Reference Information: The T-score is the number of standard deviations above or below the standard which is normal for young adults at their peak bone mineral density. The World Health Organization (WHO) interprets the T-scores as follows: Above -1 Normal bone density Between -1 and -2.5 Osteopenia Equal to / or below -2.5 Osteoporosis As a practical clinical guideline, osteopenia may be graded as follows: Mild -1 through -1.5 Moderate -1.6 through -2.0 Severe -2.1 through -2.4 The Z-score is the number of standard deviations above or below age-matched controls. A Z-score of less than -1.5 would be considered abnormal. References: 1. NIH Osteoporosis and Related Bone Diseases http://www.osteo.org 2. International Society for Clinical Densitometry http://www.iscd.org 3. National Osteoporosis Foundation http://www.nof.org Electronically Signed: Bayron Payan, at 11:09 EDT , Service support ,
== END ==
PROVIDERS: Family Provider Internal Medicine; PCP Internal Medicine; Referring Provider Internal Medicine; Visit Provider Internal Medicine
DX: Z78.0 Asymptomatic menopausal state (principal); M81.0 Age-related osteoporosis without current pathological fracture
CPT/HCPCS: 77080

== ENCOUNTER → 2019-01-26 14:36 | Outpatient (CLI) | payer MEDICARE, OTHER, SELFPAY ==
--- NOTE | 2019-01-26 14:42 | US_ITS ---
HISTORY: NODULES COMPARISON: 02/04/2018. 01/03/2017. TECHNIQUE: Grayscale and color Doppler sonography of the thyroid gland. FINDINGS: RIGHT LOBE: 4.8 x 1.9 x 1.7 cm LEFT LOBE: 5.1 x 1.8 x 1.4 cm ISTHMUS: 3 mm Small hypoechoic right thyroid lobe nodules are noted, largest measuring 5 x 3 x 4 mm. Mixed echogenicity left mid thyroid lobe nodule measuring 1.2 x 0.8 x 0.9 cm, previously 1.3 x 0.8 x 0.9 cm on 01/03/2017. No definite increased vascularity. Smooth borders. No echogenic foci. TI-RADS 4. A subcentimeter hypoechoic left thyroid lobe nodule is also noted. US/Thyroid IMPRESSION: Stable appearance of the thyroid with bilateral nodules, as detailed above. at 0611 Reported and signed by: Belén King MD Electronically Signed: Belén King MD at 6:11 EDT Tel , Service support ,
== END ==
PROVIDERS: Family Provider Internal Medicine; PCP Internal Medicine; Referring Provider Internal Medicine; Visit Provider Internal Medicine
DX: E04.1 Nontoxic single thyroid nodule (principal)
CPT/HCPCS: 76536

== ENCOUNTER → 2019-02-13 06:45 | Outpatient (CLI) | payer MEDICARE, OTHER, SELFPAY ==
[2019-02-13 07:41] LABS: Hematocrit 40.4 % (37-47); Hemoglobin 12.9 g/dL (12.0-15.0); Mean Corp Hgb Conc 31.9 g/dL (32-36); Mean Corpuscular Hgb 29.7 pg (27.0-32.0); Mean Corpuscular Volume 92.9 fL (81-99); Mean Platelet Vol. 9.3 fl (6.2-12.0); Platelet Count 223 K/mm3 (150-450); RBC Distribution Width CV 13.7 % (11.6-14.6); RBC Distribution Width SD 46.3 fl (35.1-43.9); Red Blood Count 4.35 M/mm3 (4.2-5.4); White Blood Count 3.9 K/mm3 (4.4-11.0)
[2019-02-13 08:02] LABS: Protein, Urine (Random) 17.5 mg/dL (<11.9); Protein:Creat Ratio 86 mg/g CRE (0-200)
[2019-02-13 08:20] LABS: Albumin, Serum 3.5 g/dL (3.2-5.0); BUN 18 mg/dL (7-18); BUN/Creat Ratio 20.8 RATIO (10-20); Chloride 107 mmol/L (98-107); Creatinine, Serum 0.86 mg/dL (0.55-1.02); EST Glomerular Filtration Rate 69 mL/min (>60); Est Glom Filt Rate - Afr Amer 83 mL/min (>60); Glucose 96 mg/dL (74-106); Phosphorus 3.2 mg/dL (2.5-4.9); Potassium 4.7 mmol/L (3.5-5.1); Sodium Level 143 mmol/L (136-145)
[2019-02-13 08:31] LABS: PTHIN 49.3 pg/mL (18.4-80.1); Vitamin D,25 Hydroxy 53.7 ng/mL (29.95-100.01)
[2019-02-13 09:48] LABS: Hemoglobin A1c 5.9 % (4.2-6.3)
== END ==
PROVIDERS: Family Provider Internal Medicine; PCP Internal Medicine; Referring Provider Physician Assistant Medical; Visit Provider Physician Assistant Medical
DX: N18.3 Chronic kidney disease, stage 3 (moderate) (principal); R73.09 Other abnormal glucose; E55.9 Vitamin D deficiency, unspecified; Z13.0 Encounter for screening for diseases of the blood and blood-forming organs and certain disorders involving the immune mechanism
CPT/HCPCS: 36415; 80069; 82306; 82570; 83036; 83970; 84156; 85027

== ENCOUNTER → 2019-03-18 11:27 | Outpatient (CLI) | payer MEDICARE, OTHER, SELFPAY ==
[2019-03-18 14:06] LABS: Albumin, Serum 3.7 g/dL (3.2-5.0)
== END ==
PROVIDERS: Family Provider Internal Medicine; PCP Internal Medicine; Referring Provider Orthopaedic Surgery Orthopaedic Surgery of the Spine; Visit Provider Orthopaedic Surgery Orthopaedic Surgery of the Spine
DX: R73.09 Other abnormal glucose (principal); E55.9 Vitamin D deficiency, unspecified
CPT/HCPCS: 36415; 82040

== ENCOUNTER → 2019-04-24 10:17 | Outpatient (CLI) | payer MEDICARE, OTHER, SELFPAY ==
--- NOTE | 2019-04-24 10:30 | RAD_ITS ---
STUDY: X-RAY - LEFT KNEE REASON FOR EXAM: Female, 69 years old. Recent fall, pain TECHNIQUE: 3 view(s) of the knee. COMPARISON: None. FINDINGS: Normal visualized distal femur. Normal visualized proximal tibia and fibula. Normal proximal tibiofibular articulation. There is severe degenerative arthrosis of the medial femorotibial compartment with severe joint space narrowing. Chondrocalcinosis of the lateral femorotibial compartment. There is mild degenerative arthrosis of the patellofemoral articulation. There is a soft tissue prominence in the suprapatellar region suggesting a small volume joint effusion. The soft tissue structures are unremarkable. RAD/Knee 3 Views IMPRESSION: 1. Trace joint effusion. No demonstrated fracture. 2. Medial compartment degenerative changes. Electronically Signed: Alex Singleton MD ([place]) at 17:15 EDT , Service support ,
[2019-04-27 13:43] LABS: Anti-Mitochondrial AB 116.4 Units (0.0-20.0)
== END ==
PROVIDERS: Family Provider Internal Medicine; PCP Internal Medicine; Referring Provider Nurse Practitioner Family; Visit Provider Nurse Practitioner Family
DX: M25.562 Pain in left knee (principal); K57.30 Diverticulosis of large intestine without perforation or abscess without bleeding
CPT/HCPCS: 36415; 73562; 83516

== ENCOUNTER 2019-05-11 12:30 | Outpatient (RCR) | payer MEDICARE, OTHER, SELFPAY ==
--- NOTE | 2019-04-28 15:33 | HP.SP.AD ---
History - History Date of Eval: 04/28/19 Date of Onset of Diagnosis: 2016 Previous speech therapy: No Other Relevant Medical History/Diagnoses/Surgery: Back surgery, lupus, neurology is following, mini stroke 2008. 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 The test was designed to detect word-finding impairments. In addition, stimulus cues that give semantic, phonemic (word-initial sound/s) and written information are provided as necessary. Date: 04/28/19 - BNT Comments Short form The patient was given the short form of this test. She had errors on 15% of named items. One she stated that she didn't know the name of it but knew what it was (sphinx). She said sailboat for a canoe. During the evaluation she did not exhibit word finding deficits. She reported that these deficits happen more when she is with unfamiliar listeners. REcently she reported a conversation with her daughter that she had 2-3 word finding episodes in a 3 hour conversation. This is more than an average speaker would have. Plan - Plan Plan: Speech therapy is recommneded for strategies for word finding deficits to allow the patient to effectively express her wants and needs. - Recommendations Treatment Warranted: Yes - Frequency Frequency: 1x/Week Duration: 4 Weeks - Prognosis Prognosis: Good - Goals that are Established: Determination:: Goals will be added/modified as deemed necessary and appropriate. Therapy will be discontinued when results of re-evaluation indicate therapy is no longer needed or lack of progress has been documented. - Goal #1-5 Goal #1: Susanne will be educated on word finding strategies and she will verbalize an understanding of all strategies. Goal #2: Marisel will demonstrate use of at least 3 strategies during therapy as needed. Education - Patient has Indicated that the Following Identified Educational Needs: None The Patient has indicated that they have no educational or learning abilities that may effect their care.: Yes - Patient Instruction Patient Education: Diagnosis, Treatment Plan, Goals Person Taught: Patient Teaching Method: Discussion Response to teaching: Verbalize understanding
--- NOTE | 2019-07-21 08:07 | HP.SP.DC ---
ST Discharge Summary - Discharged: Discharge: Susanne Torres is discharged from [facility] as of April. Her initial evaluation was on 04/28/19 with two sessions attended. The focus of therapy was on strategies to decrease Susanne?s word finding difficulties. She was provided with a list of strategies to facilitate word finding skills. During her second session she had only one word finding episode but was able to use a strategy and then use the word she wanted. No further therapy was necessary as her skills during therapy were within normal limits for anomia. A copy of this discharge summary will be sent to her referring physician.
== END 2019-05-11 19:00 | disposition home or self-care (01) ==
LOC: SP 12:30
PROVIDERS: Family Provider Internal Medicine; PCP Internal Medicine
DX: R47.1 Dysarthria and anarthria (principal)
CPT/HCPCS: 92507; 92523

== ENCOUNTER → 2019-07-25 07:02 | Outpatient (CLI) | payer MEDICARE, OTHER, SELFPAY ==
[2019-07-25 08:59] LABS: Color, Urine Yellow (Yellow); Glucose, Dipstick Normal (Normal); Ketone-Dipstick 5 mg/dl (Negative); Leukocyte Esterase-Dipstick 500 /ul (Negative); Nitrite-Dipstick Negative (Negative); Occult Blood-Urine 250 /ul (Negative); Protein-Dipstick 30 mg/dl (Negative); Specific Gravity, Urine 1.025 (1.002-1.030); Urine Bilirubin Dipstick Negative (Negative); Urine Clarity Sl. Cloudy (Clear); Urine Urobilinogen Normal (Normal)
== END ==
PROVIDERS: Family Provider Internal Medicine; PCP Internal Medicine; Referring Provider Urology; Visit Provider Urology
DX: N39.0 Urinary tract infection, site not specified (principal); R30.0 Dysuria
CPT/HCPCS: 81002; 87077; 87086; 87088; 87186

== ENCOUNTER → 2019-09-02 09:01 | Outpatient (CLI) | payer MEDICARE, OTHER, SELFPAY ==
--- NOTE | 2019-09-02 09:11 | RAD_ITS ---
STUDY: X-RAY - LEFT HAND REASON FOR EXAM: Female, 69 years old. RHEUMATOLOGY EVAL, NKI RECENT. BILAT THUMBS PAINFUL, RT HAND PAIN ( and gt;) LT HAND TECHNIQUE: 3 view(s) of the hand. COMPARISON: None. FINDINGS: Normal radiocarpal articulation. Normal distal radioulnar joint. Normal visualized carpal bones. Normal carpal articulations There is degenerative arthrosis of the carpometacarpal (CMC) articulation of the thumb. Normal second through fifth carpometacarpal joints. Normal metacarpi. Normal metacarpophalangeal joint of the thumb. Normal interphalangeal joint of the thumb. Normal proximal and distal phalanges of the thumb. Normal metacarpophalangeal joints of the second through fifth fingers. Normal proximal and distal interphalangeal joints of the second through fifth fingers. Normal phalanges of the second through fifth fingers. The soft tissue structures are unremarkable. RAD/Hand Min 3 Views IMPRESSION: Arthrosis of the first carpometacarpal joint. Electronically Signed: Bayron Payan, at 15:47 EST , Service support ,
--- NOTE | 2019-09-02 09:11 | RAD_ITS ---
STUDY: X-RAY - LEFT KNEE REASON FOR EXAM: Female, 69 years old. LT KNEE PAIN ( and gt;) RT KNEE TECHNIQUE: 4 view(s) of the knee. COMPARISON: Prior study of 04/24/2019 FINDINGS: Normal visualized distal femur. Normal visualized proximal tibia and fibula. Normal proximal tibiofibular articulation. There are degenerative changes of the medial knee compartment with severe joint space narrowing. There is mild degenerative arthrosis of the lateral femorotibial compartment. There is mild degenerative arthrosis of the patellofemoral articulation. The soft tissue structures are unremarkable. RAD/Knee 4 or More Views IMPRESSION: Tricompartmental degenerative changes most severely affecting the medial knee compartment. Findings are similar to the previous study. Electronically Signed: Cl Alfaro MD at 19:50 EST , Service support ,
--- NOTE | 2019-09-02 09:11 | RAD_ITS ---
STUDY: X-RAY - RIGHT KNEE REASON FOR EXAM: Female, 69 years old. LT KNEE PAIN ( and gt;) RT KNEE TECHNIQUE: 4 view(s) of the knee. COMPARISON: None. FINDINGS: Normal visualized distal femur. Normal visualized proximal tibia and fibula. Normal proximal tibiofibular articulation. There is mild degenerative arthrosis of the medial femorotibial compartment. There is mild degenerative arthrosis of the lateral femorotibial compartment. Normal patellofemoral articulation. There is chondrocalcinosis of the medial and lateral meniscal cartilage. RAD/Knee 4 or More Views IMPRESSION: Mild degenerative changes of the medial and lateral knee compartments with chondrocalcinosis of the medial and lateral menisci. Electronically Signed: Cl Alfaro MD at 19:15 EST , Service support ,
--- NOTE | 2019-09-02 09:11 | RAD_ITS ---
STUDY: X-RAY - RIGHT HAND REASON FOR EXAM: Female, 69 years old. RHEUMATOLOGY EVAL, NKI RECENT. BILAT THUMBS PAINFUL, RT HAND PAIN ( and gt;) LT HAND TECHNIQUE: 4 view(s) of the hand. COMPARISON: None. FINDINGS: Normal radiocarpal articulation. Normal distal radioulnar joint. Normal visualized carpal bones. Normal carpal articulations There are mild degenerative changes of the first metacarpal greater multangular joint. Normal second through fifth carpometacarpal joints. Normal metacarpi. Normal metacarpophalangeal joint of the thumb. There mild degenerative changes of the first interphalangeal joint. Normal proximal and distal phalanges of the thumb. Normal metacarpophalangeal joints of the second through fifth fingers. Normal proximal and distal interphalangeal joints of the second through fifth fingers. Normal phalanges of the second through fifth fingers. The soft tissue structures are unremarkable. RAD/Hand Min 3 Views IMPRESSION: Mild degenerative changes of the first interphalangeal joint and first metacarpal greater multangular joint. Electronically Signed: Cl Alfaro MD at 19:16 EST , Service support ,
--- NOTE | 2019-09-02 09:11 | RAD_ITS ---
STUDY: X-RAY - BILATERAL, Knee(s) REASON FOR EXAM: Female, 69 years old. LT KNEE PAIN ( and gt;) RT KNEE TECHNIQUE: 1 view(s) of the BILATERAL, knee(s) were obtained including AP standing weight-bearing views. COMPARISON: Prior left knee study of 04/24/2019 FINDINGS - RIGHT KNEE: Normal visualized right distal femur. Normal visualized proximal right tibia and fibula. Normal right proximal tibiofibular articulation. There is mild degenerative arthrosis of the medial femorotibial compartment of the right knee. There is mild degenerative arthrosis of the lateral femorotibial compartment of the right knee. There is chronic calcinosis of the medial and lateral meniscal cartilage. The soft tissue structures are unremarkable. FINDING - LEFT KNEE: Normal visualized left distal femur. Normal visualized proximal left tibia and fibula. Normal left proximal tibiofibular articulation. There are degenerative changes of the medial knee compartment with severe joint space narrowing. There is mild degenerative arthrosis of the lateral femorotibial compartment of the left knee. The soft tissue structures are unremarkable. RAD/Knees Standing AP Bilateral IMPRESSION: Bilateral degenerative changes of the knees as detailed above. Electronically Signed: Cl Alfaro MD at 19:56 EST , Service support ,
[2019-09-02 10:09] LABS: Lyme Ab Screen Interpretation REF LAB; Mucous, Urine 0 SEEN /hpf (<or=2+); Red Blood Cells-Urine 0 SEEN /hpf (0-5)
[2019-09-02 10:51] LABS: Color, Urine Yellow (Yellow); Glucose, Dipstick Normal (Normal); Ketone-Dipstick Negative (Negative); Leukocyte Esterase-Dipstick 100 /ul (Negative); Nitrite-Dipstick Negative (Negative); Occult Blood-Urine Negative /ul (Negative); Protein-Dipstick Negative (Negative); Urine Bilirubin Dipstick Negative (Negative); Urine Clarity Sl. Cloudy (Clear); Urine Urobilinogen Normal (Normal); Urine pH 6.5 (5.0 - 8.0)
[2019-09-02 10:59] LABS: Erythrocyte Sedimentation Rate 3 mm/hr (0-30)
[2019-09-02 11:09] LABS: Absolute Lymphocyte Count 1.22 X10^3/uL (0.83-4.51); Absolute Neutrophil Count 2.3 X10^3/uL (2.0-7.7); Basophil# 0.08 X10^3/uL; Eosinophil# 0.12 X10^3/uL; Hematocrit 38.8 % (37-47); Hemoglobin 12.2 g/dL (12.0-15.0); Lymphocyte # 1.22 X10^3/ul (4.0); Lymphocyte % 30.1 % (19-41); Mean Corp Hgb Conc 31.4 g/dL (32-36); Mean Corpuscular Hgb 29.1 pg (27.0-32.0); Mean Corpuscular Volume 92.6 fL (81-99); Mean Platelet Vol. 9.9 fl (6.2-12.0); Monocyte# 0.34 X10^3/uL; Monocyte% 8.4 % (0-10); NRBC Flagged by Analyzer 0 % (0-5); Neutrophil # 2.28 X10^3/uL (2.7-7.7); Neutrophil % 56.3 % (47-70); Platelet Count 209 K/mm3 (150-450); RBC Distribution Width CV 13.9 % (11.6-14.6); RBC Distribution Width SD 47.1 fl (35.1-43.9); Red Blood Count 4.19 M/mm3 (4.2-5.4); White Blood Count 4.1 K/mm3 (4.4-11.0)
[2019-09-02 11:17] LABS: Bacteria 1+ /hpf (None Seen); Squamous Epithelial Cells - UA 0-5 SEEN /hpf (5-10); White Blood Cells 10-25 SEEN /hpf (0-5)
[2019-09-02 11:41] LABS: Vitamin B12 432 pg/mL (211-911); Vitamin D,25 Hydroxy 45.9 ng/mL (29.95-100.01)
[2019-09-02 11:50] LABS: ALB/GLOB Ratio 1.3 RATIO (0.9-2.4); AST(SGOT) 15 U/L (15-37); Alanine Aminotransfer ALT/SGPT 20 U/L (13-56); Albumin, Serum 3.9 g/dL (3.2-5.0); Alkaline Phosphatase 75 U/L (45-117); Anion Gap 3 (5-15); BUN 18 mg/dL (7-18); BUN/Creat Ratio 20.2 RATIO (10-20); CPK Total, Creatine Kinase 46 U/L (26-192); Chloride 107 mmol/L (98-107); Creatinine, Serum 0.89 mg/dL (0.55-1.02); EST Glomerular Filtration Rate 66 mL/min (>60); Est Glom Filt Rate - Afr Amer 80 mL/min (>60); Glucose 94 mg/dL (74-106); Potassium 3.8 mmol/L (3.5-5.1); Protein, Total 6.9 g/dL (6.4-8.2); Rheumatoid Factor < 10.0 IU/mL (<15); Sodium Level 141 mmol/L (136-145); Thyroid Stim Hormone (TSH) 1.71 uIU/mL (0.358-3.74); Uric Acid 2.6 mg/dL (2.6-6.0)
[2019-09-04 16:08] LABS: Anti-ribosomal P Antibodies <0.2 AI (0.0-0.9); Vitamin D 1,25-Dihydroxy 51.5 pg/mL (19.9-79.3)
[2019-09-04 16:49] LABS: ANTINUCLEAR ANTIBODIES DIRECT Negative (Negative); Anti-Histone Abs 0.9 Units (0.0-0.9); Anti-Mitochondrial AB 99.2 Units (0.0-20.0)
[2019-09-07 16:07] LABS: Albumin 3.8 g/dL (2.9-4.4); Alpha-1-Globulins 0.2 g/dL (0.0-0.4); Alpha-2-Globulins 0.7 g/dL (0.4-1.0); Angiotensin Convert Enzyme 52 U/L (14-82); Complement C3 105 mg/dL (82-167); Cytoplasmic Ab (C-ANCA) <1:20 titer (Neg:<1:20); Folate, RBC (Hct) Test 38.4 % (34.0-46.6); Folates, RBC Test 1344 ng/mL (>498); Gamma Globulin 0.7 g/dL (0.4-1.8); HEPATITIS B SURFACE AG Negative (Negative); Hepatitis A AB, Total Positive (Negative); Hepatitis A IgM Antibody Negative (Negative); Hepatitis B Core AB IgM Negative (Negative); Hepatitis B Core Ab Total Negative (Negative); Hepatitis C Ab <0.1 s/co ratio (0.0-0.9); Immunoglobulin A 108 mg/dL (87-352); Immunoglobulin G 732 mg/dL (700-1600); Immunoglobulin M 69 mg/dL (26-217); PROEL- TOTAL PROTEIN 6.4 g/dL (6.0-8.5); Vitamin B1, Thiamine 131.1 nmol/L (66.5-200.0)
[2019-09-07 17:41] LABS: Anti-Smooth Muscle ABS 3 Units (0-19); CCP IgG Antibodies 9 units (0-19); Hep B Surface Antibodies Reactive (.); Lyme Scn Total Ab w/Rflx <0.91 ISR (0.00-0.90); Perinuclear Ab (P-ANCA) <1:20 titer (Neg:<1:20); t-Transglutaminase IgA <2 U/mL (0-3)
== END ==
PROVIDERS: PCP Internal Medicine; Referring Provider Internal Medicine Rheumatology; Visit Provider Internal Medicine Rheumatology
DX: M19.071 Primary osteoarthritis, right ankle and foot (principal); M19.072 Primary osteoarthritis, left ankle and foot; M19.041 Primary osteoarthritis, right hand; M19.042 Primary osteoarthritis, left hand; E55.9 Vitamin D deficiency, unspecified; M54.2 Cervicalgia; R53.83 Other fatigue; G89.29 Other chronic pain; M51.36 Other intervertebral disc degeneration, lumbar region; M70.52 Other bursitis of knee, left knee
CPT/HCPCS: 36415; 73130; 73564; 73565; 80053; 81001; 82164; 82306; 82550; 82595; 82607; 82652; 82747; 82784; 83516; 84165; 84425; 84443; 84550; 85014; 85025; 85652; 86038; 86140; 86160; 86200; 86225; 86235; 86256; 86334; 86431; 86618; 86704; 86705; 86706; 86708; 86709; 86803; 87340

== ENCOUNTER → 2019-09-07 07:12 | Outpatient (CLI) | payer MEDICARE, OTHER, SELFPAY ==
--- NOTE | 2019-09-07 07:14 | BI_ITS ---
MAMMOGRAPHY - BILATERAL SCREENING REASON FOR EXAM: Female, 69 years old. Routine annual screening examination. PERTINENT HISTORY: Non-contributory. TECHNIQUE: Digital bilateral breast degar (3D mammographic acquisition) in the CC and MLO projections. 2-D mediolateral oblique (MLO) and craniocaudad (CC) views of both breasts were obtained. CAD: Full Field Digital Mammography with Computer Added Detection was performed. COMPARISON: Comparison is made with prior examination dated September 04, 2018 and July 25, 2017. FINDINGS: Breast Composition: There are scattered areas of fibroglandular density. There are no dominant masses or suspicious calcifications. There are small benign-appearing bilateral axillary lymph nodes. No other significant abnormalities are identified. There has been no significant change since the prior study. BI/SCREEN MAMM (CAD) W/EDGAR BILAT IMPRESSION: Stable bilateral screening mammogram. Yearly follow-up mammogram recommended. (A) ASSESSMENT CATEGORY: BIRADS Category 2: Benign. A letter regarding these results will be sent to the patient by the facility within 30 days. Approximately 10% of breast cancers are not detected by mammography. A normal mammogram should not delay biopsy of a clinically suspicious abnormality. [id number] Electronically Signed: Bayron Payan, at 8:50 EST , Service support ,
== END ==
PROVIDERS: PCP Internal Medicine; Referring Provider Internal Medicine; Visit Provider Internal Medicine
DX: Z12.31 Encounter for screening mammogram for malignant neoplasm of breast (principal)
CPT/HCPCS: 77063; 77067